=== PATIENT | male | born 1940 | race African-American/Black ===

== ENCOUNTER 2016-05-28 10:59 | Inpatient (IN) | payer OTHER ==
--- NOTE | 2016-05-28 11:19 | PDOC ---
[id number] No Limitations - History of Present Illness Initial Comments: 05/28/16 11:28 The patient is a 76 year old male accompanied by his with significant past medical history of hypertension, hypercholesterolemia, and diabetes who presents to the emergency department with worsening cough. The patient states he has been coughing for a long time, however over the last few weeks it has gotten worse and he has some difficulty breathing. He reports some associated chest pain worse with coughing, non radiating. He denies recent travel or sick contacts. He denies fevers and chills. The patient has not taken anything for his cough. Patient has a home visiting nurse/nurse practitioner from [facility], . <Rafia Briggs - Last Filed: 05/28/16 11:49> <Mercedez Wood - Last Filed: 06/01/16 07:38> - General Chief Complaint: Shortness of Breath Stated Complaint: SOB Time Seen by Provider: 05/28/16 11:08 Past History <Rafia Briggs - Last Filed: 05/28/16 11:49> - Past Medical History Anemia: No Asthma: No Cancer: No Cardiac Disorders: Yes CVA: Yes (rt side hemeparesis) COPD: No CHF: Yes Dementia: No Diabetes: Yes GI Disorders: No Disorders: No HTN: Yes Hypercholesterolemia: Yes Liver Disease: No Seizures: No Thyroid Disease: No - Surgical History Abdominal Surgery: No Appendectomy: No Cardiac Surgery: No Cholecystectomy: No Lung Surgery: No Neurologic Surgery: No Orthopedic Surgery: No - Psycho/Social/Smoking Cessation Hx Anxiety: No Suicidal Ideation: No Smoking Status: No Smoking History: Former smoker Have you smoked in the past 12 months: No Number of Cigarettes Smoked Daily: 0 If you are a former smoker, when did you quit?: 6 years ago Hx Alcohol Use: No Drug/Substance Use Hx: No Substance Use Type: None Hx Substance Use Treatment: No <Mercedez Wood - Last Filed: 06/01/16 07:38> - Past Medical History Allergies/Adverse Reactions: Allergies Allergy/AdvReac Type Severity Reaction Status Date / Time No Known Allergies Allergy Verified 05/28/16 11:37 Home Medications: Ambulatory Orders Amlodipine Besylate 10 mg PO DAILY 12/10/15 Aspirin [ASA -] 81 mg PO DAILY 12/10/15 Atorvastatin Ca [Lipitor] 10 mg PO DAILY 12/10/15 Escitalopram Oxalate [Lexapro -] 10 mg PO DAILY 12/10/15 Furosemide [Lasix -] 40 mg PO DAILY 12/10/15 Gabapentin 300 mg PO DAILY 12/10/15 Insulin Detemir [Levemir Flextouch] 30 unit SQ HS 12/10/15 Insulin Detemir [Levemir Flextouch] 45 unit SQ AM 12/10/15 Potassium Chloride [Klor-Con M20] 20 meq PO BID 12/10/15 Repaglinide 1 mg PO DAILY 12/10/15 Nebulizer/Compressor [Comp-Air Elite Comp Nebulizer] 1 each MC Q8H PRN #1 each 12/11/15 Albuterol 0.083% Nebulizer Bethanie [Ventolin 0.083% Nebulizer Soln -] 1 neb NEB Q8H PRN 01/12/16 Collagenase Clostridium Hist. [Santyl -] 1 applic TP DAILY #90 applic 01/12/16 Azithromycin 250 mg PO DAILY #4 tablet 05/31/16 Guaifenesin [Mucinex -] 600 mg PO BID tablet.er 05/31/16 Prednisone 10 mg PO DAILY #30 tablet 05/31/16 Review of Systems - Review of Systems Able to Perform ROS?: Yes Comments:: 05/28/16 11:28 GENERAL/CONSTITUTIONAL: No fever or chills. No weakness. HEAD, EYES, EARS, NOSE AND THROAT: No change in vision. No ear pain or discharge. No sore throat. CARDIOVASCULAR: +Shortness of breath, +chest pain. RESPIRATORY: +Cough, +wheezing. No hemoptysis. GASTROINTESTINAL: No nausea, vomiting, diarrhea or constipation. GENITOURINARY: No dysuria, frequency, or change in urination. MUSCULOSKELETAL: No joint or muscle swelling or pain. No neck or back pain. SKIN: No rash NEUROLOGIC: No headache, vertigo, loss of consciousness, or change in strength/ sensation. ENDOCRINE: No increased thirst. No abnormal weight change. HEMATOLOGIC/LYMPHATIC: No anemia, easy bleeding, or history of blood clots. ALLERGIC/IMMUNOLOGIC: No hives or skin allergy. <Rafia Briggs - Last Filed: 05/28/16 11:49> *Physical Exam - Physical Exam Comments: 05/28/16 11:49 GENERAL: Awake, alert, and fully oriented, in no acute distress HEAD: No signs of trauma EYES: PERRLA, EOMI, sclera anicteric, conjunctiva clear ENT: Auricles normal inspection, hearing grossly normal, nares patent, oropharynx clear without exudates. Moist mucosa NECK: Normal ROM, supple, no lymphadenopathy, JVD, or masses LUNGS: +Diffuse expiratory wheezing with intermittent cough and diffuse rhonchi. HEART: Regular rate and rhythm, normal S1 and S2, no murmurs, rubs or gallops ABDOMEN: Soft, nontender, normoactive bowel sounds. No guarding, no rebound. No masses EXTREMITIES: Normal range of motion, no edema. No clubbing or cyanosis. No cords, erythema, or tenderness NEUROLOGICAL: Cranial nerves II through XII grossly intact. Normal speech, normal gait SKIN: Warm, Dry, normal turgor, no rashes or lesions noted. <Rafia Briggs - Last Filed: 05/28/16 11:49> Heart Score/ECG Review - ECG Impressions Comment:: EKG read 13:35- NSR 87 bpm, occasional PAC, no acute ST/T changes <Mercedez Wood - Last Filed: 06/01/16 07:38> ED Treatment Course - LABORATORY CBC & Chemistry Diagram: 05/31/16 06:00 05/31/16 06:00 <Mercedez Wood - Last Filed: 06/01/16 07:38> Medical Decision Making - Medical Decision Making 05/28/16 16:32 Pt reassessed, the wheezing has not improved despite treatment. He reports some improvement in his symtoms. Will give solu-medrol and abx, admit for wheezing, poss bronchitis. <Mercedez Wood - Last Filed: 06/01/16 07:38> *DC/Admit/Observation/Transfer - Attestations Scribe Attestion: 05/28/16 11:21 Documentation prepared by Rafia Briggs, acting as medical fee clerk for Mercedez Wood MD. <Rafia Briggs - Last Filed: 05/28/16 11:49> - Discharge Dispostion Admit: Yes <Mercedez Wood - Last Filed: 06/01/16 07:38> Diagnosis at time of Disposition: Bronchitis - Discharge Dispostion Condition at time of disposition: Guarded - Prescriptions - Referrals
[2016-05-28 11:42] VITALS: BMI 32.6
[2016-05-28] MEDS: ALBUTEROL SO4 2.5/IPRATROPIUM 0.5 INH SOL 3 ML VIAL.NEB. NEB SCH ×5 (11:45→22:30)
[2016-05-28] MEDS ORDERED: ALBUTEROL SO4 2.5/IPRATROPIUM 0.5 INH SOL 3 ML VIAL.NEB. NEB ONE (11:46)
[2016-05-28 12:11] LABS: BASOPHIL 0.6 % (0-2.0); EOSINOPHIL 3.2 % (0-4.5); MCH 29.9 pg (25.7-33.7); MCHC 33.9 g/dl (32.0-35.9); MEAN CELL VOLUME 88.2 fl (80-96); MEAN PLT VOLUME 8.7 fl (7.5-11.1); NEUTROPHILS 41.9 % (42.8-82.8); PLATELET COUNT 236 K/MM3 (134-434); WHITE BLOOD COUNT 7.8 K/mm3 (4.0-10.0)
[2016-05-28 12:32] LABS: ALBUMIN 2.7 g/dl (3.4-5.0); ANION GAP 12 (8-16); BILIRUBIN,TOTAL 0.6 mg/dL (0.2-1.0); CALCIUM 8.3 mg/dL (8.5-10.1); CO2 26 mmol/L (21-32); CREATININE 0.9 mg/dL (0.7-1.3); GLUCOSE,RANDOM 240 mg/dL (74-106); SGPT/ALT 31 U/L (12-78); TOT PROT 7.3 g/dl (6.4-8.2)
[2016-05-28 12:35] LABS: ALK PHOS 61 U/L (45-117)
[2016-05-28 12:41] LABS: SGOT/AST 29 U/L (15-37)
[2016-05-28] MEDS ORDERED: methylPREDNISolone NA SUCC 125 MG/2 ML VIAL IVPB ONE (16:21)
[2016-05-28] MEDS ORDERED: AZITHROMYCIN IVPB 500 MG in DEXTROSE 5%-WATER - 250 ML IVPB ONE (16:21)
[2016-05-28] MEDS ORDERED: AZITHROMYCIN IVPB 250 ML IVPB ONE (17:24)
[2016-05-28] MEDS ORDERED: methylPREDNISolone NA SUCC 125 MG/2 ML VIAL ONE ×2 (17:24)
--- NOTE | 2016-05-28 17:45 | HP ---
CHIEF COMPLAINT: Cough PCP: [facility], HISTORY OF PRESENT ILLNESS: This is a 76 year old male from [place] with a history of CVA with residual right-sided weakness, IDDM, HTN, and HLD who presented to the ED today complaining of cough and shortness of breath. He reports that he has had both of these symptoms for about five years, but they became acutely worse over the past week. He denies chest pain, lower extremity swelling above baseline (his right leg has been swollen for "a while"), PND, and orthopnea. He denies fevers/chills and weight loss but has had some nightsweats. He thinks that he received the bcg vaccine and does not recall ever being tested for TB. 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 Smoking: Smoked for about two years and quit six years ago Alcohol: None Drugs: None Allergies No Known Allergies Allergy (Verified 05/28/16 11:37) HOME MEDICATIONS: Home Medications Medication Instructions Recorded Amlodipine Besylate 10 mg PO DAILY 12/10/15 Aspirin [ASA -] 81 mg PO DAILY 12/10/15 Atorvastatin Ca [Lipitor] 10 mg PO DAILY 12/10/15 Escitalopram Oxalate [Lexapro -] 10 mg PO DAILY 12/10/15 Furosemide [Lasix -] 40 mg PO DAILY 12/10/15 Gabapentin 300 mg PO DAILY 12/10/15 Insulin Detemir [Levemir Flextouch] 30 unit SQ HS 12/10/15 Insulin Detemir [Levemir Flextouch] 45 unit SQ AM 12/10/15 Potassium Chloride [Klor-Con M20] 20 meq PO BID 12/10/15 Repaglinide 1 mg PO DAILY 12/10/15 Nebulizer/Compressor [Comp-Air 1 each MC Q8H PRN #1 each 12/11/15 Elite Comp Nebulizer] Albuterol 0.083% Nebulizer Bethanie 1 neb NEB Q8H PRN 01/12/16 [Ventolin 0.083% Nebulizer Soln -] Collagenase Clostridium Hist. 1 applic TP DAILY #90 applic 01/12/16 [Santyl] Collagenase Clostridium Hist. 1 applic TP DAILY #90 applic 01/23/16 [Santyl] REVIEW OF SYSTEMS CONSTITUTIONAL: Nightsweats Absent: fever, chills, diaphoresis, generalized weakness, malaise, loss of appetite, weight change HEENT: Absent: rhinorrhea, nasal congestion, throat pain, throat swelling, difficulty swallowing, mouth swelling, ear pain, eye pain, visual changes CARDIOVASCULAR: Absent: chest pain, syncope, palpitations, irregular heart rate, lightheadedness , peripheral edema RESPIRATORY: See HPI GASTROINTESTINAL: Absent: abdominal pain, abdominal distension, nausea, vomiting, diarrhea, constipation, melena, hematochezia GENITOURINARY: Absent: dysuria, frequency, urgency, hesitancy, hematuria, flank pain, genital pain MUSCULOSKELETAL: Absent: myalgia, arthralgia, joint swelling, back pain, neck pain SKIN: Absent: rash, itching, pallor HEMATOLOGIC/IMMUNOLOGIC: Absent: easy bleeding, easy bruising, lymphadenopathy, frequent infections ENDOCRINE: Absent: unexplained weight gain, unexplained weight loss, heat intolerance, cold intolerance NEUROLOGIC: Absent: headache, focal weakness or paresthesias, dizziness, unsteady gait, seizure, mental status changes, bladder or bowel incontinence PSYCHIATRIC: Absent: anxiety, depression, suicidal or homicidal ideation, hallucinations. PHYSICAL EXAMINATION GENERAL: Awake, alert, and fully oriented, in no acute distress. HEAD: Normal with no signs of trauma. EYES: Pupils equal, round and reactive to light, extraocular movements intact, sclera anicteric, conjunctiva clear. No lid lag. EARS, NOSE, THROAT: Ears normal, nares patent, oropharynx clear without exudates. Moist mucous membranes. NECK: Normal range of motion, supple without lymphadenopathy, JVD, or masses. LUNGS: Inspiratory and expiratory wheezes in all lung restrepo with poor air movement. Able to speak full sentences but does appear dyspneic. No accessory muscle use. HEART: Regular rate and rhythm, normal S1 and S2 without murmur, rub or gallop. ABDOMEN: Soft, nontender, not distended, normoactive bowel sounds, no guarding, no rebound, no masses. No hepatomegaly or splenomegaly. MUSCULOSKELETAL: Normal range of motion at all joints. No bony deformities or tenderness. No CVA tenderness. UPPER EXTREMITIES: 2+ pulses, warm, well-perfused. No cyanosis. No clubbing. Cap refill <2 seconds. No peripheral edema. LOWER EXTREMITIES: 2+ pulses, warm, well-perfused. 2+ RLE edema, calf tenderness . NEUROLOGICAL: Cranial nerves II-XII intact. Normal speech. Normal gait. PSYCHIATRIC: Cooperative. Good eye contact. Appropriate mood and affect. SKIN: Warm, dry, normal turgor, no rashes or lesions noted. ASSESSMENT/PLAN: 76 year old male with cough and wheezing of unclear etiology. Problem List - Problem (1) Cough Assessment/Plan: -With significant wheezing and shortness of breath -Unclear etiology, [id number] symptoms -Differential includes COPD, bronchitis, less likely TB or PE -Continue azithromycin -Continue Solu-Medrol at 40mg q8h, taper as tolerated -DuoNebs q6h standing -RLE doppler to r/o DVT -Pulmonary evaluation Code(s): R05 - COUGH (2) Hypertension Assessment/Plan: -At goal -Continue home Norvasc Code(s): I10 - ESSENTIAL (PRIMARY) HYPERTENSION (3) Hyperlipidemia Assessment/Plan: -Continue home Atorvastatin Code(s): E78.5 - HYPERLIPIDEMIA, UNSPECIFIED (4) Diabetes Assessment/Plan: -Continue home regimen of Levemir/repaglinide -FSACHS -ISS -Diabetic diet Code(s): E11.9 - TYPE 2 DIABETES MELLITUS WITHOUT COMPLICATIONS (5) DVT prophylaxis Assessment/Plan: -Moderate risk -Lovenox 40mg sq daily -Early ambulation Code(s): [id number] - Visit type - Emergency Visit Emergency Visit: Yes ED Registration Date: 05/28/16 Care time: The patient presented to the Emergency Department on the above date and was hospitalized for further evaluation of their emergent condition. - New Patient This patient is new to me today: Yes Date on this admission: 05/28/16 - Critical Care Critical Care patient: No
[2016-05-28] MEDS ORDERED: ACETAMINOPHEN 325 MG TABLET (FP) PO PRN (18:00)
[2016-05-28] MEDS ORDERED: ONDANSETRON 4 MG/2 ML VIAL IVPB PRN (18:00)
[2016-05-28] MEDS: methylPREDNISolone NA SUCC 40 MG/1 ML VIAL IVPB SCH (19:41)
[2016-05-28] MEDS: ATORVASTATIN CA 10 MG TABLET (FP) PO SCH (21:59)
[2016-05-28] MEDS ORDERED: INSULIN DETEMIR 100 UNITS/ML MDV SQ SCH (22:00)
[2016-05-28] MEDS: POTASSIUM CHLORIDE TABS 20 MEQ TABLET.ER (FP) PO SCH (22:00)
[2016-05-28] MEDS: INSULIN SLIDING SCALE (NOVOLOG) 1 VIAL SQ SCH (22:05)
[2016-05-29] MEDS: methylPREDNISolone NA SUCC 40 MG/1 ML VIAL IVPB SCH ×3 (02:17→17:36)
[2016-05-29] MEDS ORDERED: PT OWN MED DRAWER 7, Y5N ONE ×2 (06:17→09:56)
[2016-05-29] MEDS: ALBUTEROL SO4 2.5/IPRATROPIUM 0.5 INH SOL 3 ML VIAL.NEB. NEB SCH ×3 (06:25→17:30)
[2016-05-29] MEDS: INSULIN DETEMIR 100 UNITS/ML MDV SQ SCH (07:07)
[2016-05-29] MEDS: REPAGLINIDE 1 MG TABLET PO SCH (07:09)
[2016-05-29] MEDS: INSULIN SLIDING SCALE (NOVOLOG) 1 VIAL SQ SCH ×4 (07:10→21:36)
[2016-05-29 08:28] LABS: BASOPHIL 0.1 % (0-2.0); MCH 30.4 pg (25.7-33.7); MCHC 34.6 g/dl (32.0-35.9); MEAN PLT VOLUME 8.7 fl (7.5-11.1); NEUTROPHILS 79.3 % (42.8-82.8); PLATELET COUNT 262 K/MM3 (134-434); RDW 14.9 % (11.9-15.9); WHITE BLOOD COUNT 10.9 K/mm3 (4.0-10.0)
[2016-05-29 09:07] LABS: ANION GAP 12 (8-16); CALCIUM 8.9 mg/dL (8.5-10.1); CO2 27 mmol/L (21-32); GLUCOSE,RANDOM 237 mg/dL (74-106)
[2016-05-29 09:10] LABS: ALK PHOS 68 U/L (45-117); BILIRUBIN,TOTAL 0.5 mg/dL (0.2-1.0); CREATININE 0.9 mg/dL (0.7-1.3); SGOT/AST 22 U/L (15-37); SGPT/ALT 41 U/L (12-78); TOT PROT 7.7 g/dl (6.4-8.2)
[2016-05-29] MEDS ORDERED: COLLAGENASE CLOSTRIDIUM HIST. 30 GRAMS TUBE TP SCH (10:00)
[2016-05-29] MEDS: ENOXAPARIN NA (PORCINE) 40 MG/0.4 ML DISP.SYRIN SQ SCH (10:08)
[2016-05-29] MEDS: GABAPENTIN 300 MG CAPSULE (FP) PO SCH (10:09)
[2016-05-29] MEDS: FUROSEMIDE 40 MG TABLET (FP) PO SCH (10:09)
[2016-05-29] MEDS: POTASSIUM CHLORIDE TABS 20 MEQ TABLET.ER (FP) PO SCH ×2 (10:09→21:37)
[2016-05-29] MEDS: ESCITALOPRAM OXALATE 10 MG TABLET (FP) PO SCH (10:09)
[2016-05-29] MEDS: ASPIRIN 81 MG CHEWABLE TABLETS PO SCH (10:09)
[2016-05-29] MEDS: amLODIPine BESYLATE 10 MG TABLET (FP) PO SCH (10:09)
--- NOTE | 2016-05-29 10:19 | CON.PULM ---
Consult Consult Specialty:: PULM/CCM Referred by:: PMD Reason for Consultation:: SOB / possible PNA - History of Present Illness Chief Complaint: SOB / cough History of Present Illness: 76 M, originally from [place], [place] the [place]. Previous smoking history having stopped about 6 years ago. History of CVA with residual right-sided weakness, IDDM, HTN, and HPL. Reports with URI symptoms. He developed symptoms of cough and shortness of breath. He reports some chronic cough with scant sputum production. No hemoptysis or clear night sweats. No fever or chills. No clear P TB exposure or history. 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 - Alcohol/Substance Use Hx Alcohol Use: No - Smoking History Smoking history: Former smoker Have you smoked in the past 12 months: No Aproximately how many cigarettes per day: 0 If you are a former smoker, when did you quit?: 6 years ago Home Medications - Allergies Allergies/Adverse Reactions: Allergies Allergy/AdvReac Type Severity Reaction Status Date / Time No Known Allergies Allergy Verified 05/28/16 11:37 - Home Medications Home Medications: Ambulatory Orders Amlodipine Besylate 10 mg PO DAILY 12/10/15 Aspirin [ASA -] 81 mg PO DAILY 12/10/15 Atorvastatin Ca [Lipitor] 10 mg PO DAILY 12/10/15 Escitalopram Oxalate [Lexapro -] 10 mg PO DAILY 12/10/15 Furosemide [Lasix -] 40 mg PO DAILY 12/10/15 Gabapentin 300 mg PO DAILY 12/10/15 Insulin Detemir [Levemir Flextouch] 30 unit SQ HS 12/10/15 Insulin Detemir [Levemir Flextouch] 45 unit SQ AM 12/10/15 Potassium Chloride [Klor-Con M20] 20 meq PO BID 12/10/15 Repaglinide 1 mg PO DAILY 12/10/15 Nebulizer/Compressor [Comp-Air Elite Comp Nebulizer] 1 each MC Q8H PRN #1 each 12/11/15 Albuterol 0.083% Nebulizer Bethanie [Ventolin 0.083% Nebulizer Soln -] 1 neb NEB Q8H PRN 01/12/16 Collagenase Clostridium Hist. [Santyl] 1 applic TP DAILY #90 applic 01/12/16 Review of Systems - Review of Systems Constitutional: reports: Malaise. denies: Chills, Fever, Night Sweats, Unintentional Wgt. Loss Eyes: reports: No Symptoms HENT: reports: Nasal Congestion. denies: Difficult Swallowing, Ear Discharge, Ear Pain, Epistaxis, Throat Pain Neck: reports: No Symptoms Cardiovascular: reports: Shortness of Breath. denies: Chest Pain, Edema, Palpitations Respiratory: reports: Cough, Snoring, SOB, SOB on Exertion. denies: Hemoptysis , Wheezing Gastrointestinal: reports: No Symptoms Genitourinary: reports: No Symptoms Breasts: reports: No Symptoms Reported Musculoskeletal: reports: Muscle Cramps Integumentary: reports: No Symptoms Neurological: reports: Pre-Existing Deficit Endocrine: reports: No Symptoms Hematology/Lymphatic: reports: No Symptoms Psychiatric: reports: No Symptoms Physical Exam Vital Sings: Vital Signs Temperature 97.4 F L 05/29/16 06:00 Pulse Rate 90 05/29/16 06:00 Respiratory Rate 18 05/29/16 06:00 Blood Pressure 151/82 05/29/16 06:00 O2 Sat by Pulse Oximetry (%) 96 05/29/16 01:28 Constitutional: Yes: No Distress, Calm Eyes: Yes: Conjunctiva Clear, EOM Intact HENT: Yes: Atraumatic, Normocephalic Neck: Yes: Supple, Trachea Midline Cardiovascular: Yes: Regular Rate and Rhythm Respiratory: Yes: Cough, Diminished, Rhonchi. No: Accessory Muscle Use, Rales, Stridor, Tachypnea, Wheezes ...Inspection: Yes: WNL ...Clubbing: No Gastrointestinal: Yes: Normal Bowel Sounds, Soft, Abdomen, Obese Extremities: Yes: WNL Edema: Yes Edema: LLE: Trace, RLE: Trace Peripheral Pulses WNL: Yes Integumentary: Yes: WNL Neurological: Yes: Alert, Oriented, Pre-Existing Deficit Psychiatric: Yes: Alert, Oriented Labs: CBC, BMP 05/29/16 06:00 05/29/16 06:00 Imaging - Results Chest X-ray: Report Reviewed, Image Reviewed (Significantly elevated Right hemidiaphragm up to the right hilum / RLL atelectatic/infiltrative changes) Problem List - Problems (1) Bronchitis Code(s): J40 - BRONCHITIS, NOT SPECIFIED ACUTE OR CHRONIC (2) Cough Code(s): R05 - COUGH (3) Diabetes Code(s): E11.9 - TYPE 2 DIABETES MELLITUS WITHOUT COMPLICATIONS (4) Hyperlipidemia Code(s): E78.5 - HYPERLIPIDEMIA, UNSPECIFIED (5) Hypertension Code(s): I10 - ESSENTIAL (PRIMARY) HYPERTENSION (6) Pneumonia Code(s): J18.9 - PNEUMONIA, UNSPECIFIED ORGANISM Qualifiers: Pneumonia type: due to unspecified organism Laterality: right Lung location: lower lobe of lung Qualified Code(s): J18.9 - Pneumonia, unspecified organism Assessment/Plan PLAN: Agree with ABX for possible RLL CAP / Bronchitis / URI Suspect component of COPD/chronic bronchitis due to previous smoking (suspect smoking history is more significant) Suspect component of restrictive lung disease from elevated right diaphragm -> possibly due to old CVA Suspicion for OSAS. Medrol BD TX Check sputum Check urine antigen Should have OSAS workup as an outpatient O2 as needed VTE prophylaxis Will follow Thank you. Dr Patel
[2016-05-29] MEDS: AZITHROMYCIN IVPB 250 MG in DEXTROSE 5%-WATER - 250 ML IVPB SCH (10:47)
--- NOTE | 2016-05-29 12:16 | PN ---
Physical Exam: SUBJECTIVE: Patient seen and examined. He denies any chest pain, shortness of breath or discomfort. OBJECTIVE: GENERAL: Awake, alert, and fully oriented, in no acute distress. HEAD: Normal with no signs of trauma. EYES: Pupils equal, round and reactive to light, extraocular movements intact, sclera anicteric, conjunctiva clear. No lid lag. ENT: Ears normal, nares patent, oropharynx clear without exudates. Moist mucous membranes. NECK: Normal range of motion, supple without lymphadenopathy, JVD, or masses. LUNGS: Anterior lungs with rhonchi. Left lung diminished/clear. Right lower lobe with rhonchi. HEART: Regular rate and rhythm ABDOMEN: Soft, nontender, distended, + bowel sounds, constipated LOWER EXT: Right lower extremity +1 edema, no calf tenderness, negative for DVT NEUROLOGICAL: Normal speech. Right sided weakness s/p CVA PSYCHIATRIC: Cooperative. Good eye contact. SKIN: Excoriated buttocks Vital Signs Period Temp Pulse Resp BP Sys/Pham Pulse Ox Last 24 Hr 97.4 F-99.1 F 78-94 18-22 124-151/57-82 96-96 Laboratory Results - last 24 hr 05/28/16 05/29/16 05/29/16 21:14 05:43 06:00 WBC 10.9 H D RBC 4.83 Hgb 14.7 Hct 42.5 MCV 88.0 MCHC 34.6 RDW 14.9 Plt Count 262 MPV 8.7 Neutrophils % 79.3 D Lymphocytes % 19.2 D Monocytes % 1.4 L D Eosinophils % 0.0 D Basophils % 0.1 Sodium Potassium Chloride Carbon Dioxide Anion Gap BUN Creatinine Creat Clearance w eGFR POC Glucometer 290 252 Random Glucose Hemoglobin A1c % Calcium Magnesium Total Bilirubin AST ALT Alkaline Phosphatase Total Protein Albumin 05/29/16 05/29/16 05/29/16 06:00 06:00 11:25 WBC RBC Hgb Hct MCV MCHC RDW Plt Count MPV Neutrophils % Lymphocytes % Monocytes % Eosinophils % Basophils % Sodium 138 Potassium 4.0 Chloride 99 Carbon Dioxide 27 Anion Gap 12 BUN 11 D Creatinine 0.9 Creat Clearance w eGFR > 60 POC Glucometer 342 Random Glucose 237 H Hemoglobin A1c % 8.4 H D Calcium 8.9 Magnesium 2.0 Total Bilirubin 0.5 AST 22 D ALT 41 D Alkaline Phosphatase 68 Total Protein 7.7 Albumin 3.0 L Active Medications Generic Name Dose Route Start Last Admin Trade Name Humbertoq PRN Reason Stop Dose Admin Acetaminophen 650 mg 05/28/16 18:00 Tylenol - PO Q6H PRN FEVER OR PAIN Albuterol/Ipratropium 1 amp 05/28/16 17:30 05/29/16 11:15 Duoneb - NEB 1 amp Q6H FLORIN Administration Amlodipine Besylate 10 mg 05/29/16 10:00 05/29/16 10:09 Norvasc - PO 10 mg DAILY FLORIN Administration Aspirin 81 mg 05/29/16 10:00 05/29/16 10:09 Asa - PO 81 mg DAILY FLORIN Administration Atorvastatin Calcium 10 mg 05/28/16 22:00 05/28/16 21:59 Lipitor - PO 10 mg HS FLORIN Administration Enoxaparin Sodium 40 mg 05/29/16 10:00 05/29/16 10:08 Lovenox - SQ 40 mg DAILY FLORIN Administration Escitalopram Oxalate 10 mg 05/29/16 10:00 05/29/16 10:09 Lexapro - PO 10 mg DAILY FLORIN Administration Furosemide 40 mg 05/29/16 10:00 05/29/16 10:09 Lasix - PO 40 mg DAILY FLORIN Administration Gabapentin 300 mg 05/29/16 10:00 05/29/16 10:09 Neurontin - PO 300 mg DAILY FLORIN Administration Azithromycin 250 mg/ Dextrose 250 mls @ 250 mls/hr 05/29/16 10:00 05/29/16 10: 47 IVPB 250 mls/hr DAILY FLORIN Administration Insulin Aspart 1 vial 05/28/16 22:00 05/29/16 11:34 Novolog Vial Sliding Scale - SQ 8 units ACHS FLORIN Administration Protocol Insulin Detemir 30 units 05/28/16 22:00 05/28/16 21:58 Levemir Vial SQ 30 units HS FLORIN Administration Insulin Detemir 45 units 05/29/16 07:00 05/29/16 07:07 Levemir Vial SQ 45 units AM FLORIN Administration Methylprednisolone Sodium Succinate 40 mg 05/28/16 18:00 05/29/16 10:08 Solu-Medrol - IVPB 40 mg Q8H-IV FLORIN Administration Ondansetron HCl 4 mg 05/28/16 18:00 Zofran Injection IVPB Q6H PRN NAUSEA Potassium Chloride 20 meq 05/28/16 22:00 05/29/16 10:09 K-Dur - PO 20 meq BID FLORIN Administration Repaglinide 1 mg 05/29/16 07:00 05/29/16 07:09 Prandin - PO 1 mg ACBK FLORIN Administration ASSESSMENT/PLAN: Patient is a 76 year old male with a significant past medical history of CVA with residual right sided weakness, CHF, hypertension, high cholesterol and diabetes who presents to the emergency department on 05/28/16 with worsening cough. The patient states he has been coughing a while but coughing worsened over the last few weeks with difficulty breathing. He reports some associated chest pain worse with coughing, non radiating. On exam he denies chest pain and shortness of breath, but oxygen sats are noted to be 92% on room air. Pulmonary: Cough associated with shortness of breath- acute Assessment/Plan: Differentials include COPD exacerbation vs. acute Bronchitis vs Right lower lobe Pneumonia 05/28/2016 chest xray shows mild atelectatic changes in right lung base Has a moist non productive cough, oxygen saturations on room air: 92%, will order pre and post On Azithromycin 250mg daily and Solu Medrol 40mg q8 Albuterol q6 scheduled Oxygen as needed for respiratory distress Pulmonary following Cardiology: Hypertension - chronic Assessment/Plan: Controlled on Norvasc 10mg daily Monitor BPs CHF - chronic Assessment/Plan: On Lasix 40mg daily Hyperlipidemia - chronic Assessment/Plan: On Atorvastin 10mg daily Neurology: CVA with right sided weakness - chronic Assessment/Plan: On ASA 81mg daily PT Eval ordered Endocrine: Diabetes - chronic Assessment/Plan: BGMs elevated Sliding scale adjusted for tighter control, Levemir night dose increased Monitor BGMs for improvement F.E.N. Fluids: Tolerating PO Electrolytes: BMP in a.m. Nutrition: Diabetic diet Prophylaxis DVT: Lovenox 40mg daily GI: Protonix PT consult Visit type - Emergency Visit Emergency Visit: Yes ED Registration Date: 05/31/16 Care time: The patient presented to the Emergency Department on the above date and was hospitalized for further evaluation of their emergent condition. - New Patient This patient is new to me today: Yes Date on this admission: 06/05/16 - Critical Care Critical Care patient: No - Discharge Referral Referred to [facility] No
[2016-05-29] MEDS: DOCUSATE SODIUM 100 MG CAPSULE (FP) PO SCH ×2 (14:29→21:37)
[2016-05-29] MEDS: POLYETHYLENE GLYCOL 3350 119 GM BTL PO SCH (15:08)
[2016-05-29] MEDS ORDERED: INSULIN DETEMIR 100 UNITS/ML MDV SQ SCH (15:41)
[2016-05-29] MEDS: ATORVASTATIN CA 10 MG TABLET (FP) PO SCH (21:37)
[2016-05-30] MEDS: methylPREDNISolone NA SUCC 40 MG/1 ML VIAL IVPB SCH ×3 (01:34→21:37)
[2016-05-30] MEDS ORDERED: INSULIN (NOVOLOG) ASPART 100 UNITS/ML 10ML VIAL ONE ×4 (05:44→16:37)
[2016-05-30] MEDS ORDERED: PT OWN MED DRAWER 7, Y5N ONE (05:45)
[2016-05-30] MEDS: DOCUSATE SODIUM 100 MG CAPSULE (FP) PO SCH ×3 (06:12→21:34)
[2016-05-30] MEDS: REPAGLINIDE 1 MG TABLET PO SCH (06:13)
[2016-05-30] MEDS: INSULIN SLIDING SCALE (NOVOLOG) 1 VIAL SQ SCH ×4 (06:33→21:36)
[2016-05-30] MEDS: INSULIN DETEMIR 100 UNITS/ML MDV SQ SCH ×2 (06:40→21:35)
[2016-05-30] MEDS: ALBUTEROL SO4 2.5/IPRATROPIUM 0.5 INH SOL 3 ML VIAL.NEB. NEB SCH ×5 (06:41→22:51)
[2016-05-30 07:17] LABS: BASOPHIL 0.3 % (0-2.0); MCH 30.4 pg (25.7-33.7); MCHC 34.6 g/dl (32.0-35.9); MEAN CELL VOLUME 87.7 fl (80-96); MEAN PLT VOLUME 8.7 fl (7.5-11.1); NEUTROPHILS 81.2 % (42.8-82.8); PLATELET COUNT 290 K/MM3 (134-434); RDW 15.2 % (11.9-15.9); WHITE BLOOD COUNT 13.4 K/mm3 (4.0-10.0)
[2016-05-30 07:38] LABS: ANION GAP 11 (8-16); CALCIUM 9.1 mg/dL (8.5-10.1); CO2 29 mmol/L (21-32); CREATININE 0.9 mg/dL (0.7-1.3); GLUCOSE,RANDOM 225 mg/dL (74-106); SGOT/AST 25 U/L (15-37); SGPT/ALT 42 U/L (12-78)
[2016-05-30 07:41] LABS: ALK PHOS 63 U/L (45-117); BILIRUBIN,TOTAL 0.5 mg/dL (0.2-1.0)
[2016-05-30] MEDS: GABAPENTIN 300 MG CAPSULE (FP) PO SCH (09:28)
[2016-05-30] MEDS: ENOXAPARIN NA (PORCINE) 40 MG/0.4 ML DISP.SYRIN SQ SCH (09:28)
[2016-05-30] MEDS: ASPIRIN 81 MG CHEWABLE TABLETS PO SCH (09:28)
[2016-05-30] MEDS: amLODIPine BESYLATE 10 MG TABLET (FP) PO SCH (09:28)
[2016-05-30] MEDS: POTASSIUM CHLORIDE TABS 20 MEQ TABLET.ER (FP) PO SCH ×2 (09:28→21:35)
[2016-05-30] MEDS: FUROSEMIDE 40 MG TABLET (FP) PO SCH (09:29)
[2016-05-30] MEDS: ESCITALOPRAM OXALATE 10 MG TABLET (FP) PO SCH (09:29)
[2016-05-30] MEDS: POLYETHYLENE GLYCOL 3350 119 GM BTL PO SCH (09:29)
[2016-05-30] MEDS: AZITHROMYCIN IVPB 250 MG in DEXTROSE 5%-WATER - 250 ML IVPB SCH (10:11)
--- NOTE | 2016-05-30 10:59 | PN ---
Progress Note (short form) - Note Progress Note: Subjectively feels better today. NAD on RA. Finding it difficult to expectorate. Intake & Output 05/27/16 05/28/16 05/29/16 05/30/16 23:59 23:59 23:59 23:59 Intake Total 500 1460 300 Output Total 450 800 Balance 50 660 300 Weight 221 lb 235 lb 1.6 oz 235 lb 14.4 oz Last Vital Signs Temp Pulse Resp BP Pulse Ox 98.8 F 91 H 20 135/82 92 L 05/30/16 09:46 05/30/16 09:46 05/30/16 09:46 05/30/16 09:46 05/30/16 09:00 Active Medications Acetaminophen (Tylenol -) 650 mg PO Q6H PRN PRN Reason: FEVER OR PAIN Albuterol/Ipratropium (Duoneb -) 1 amp NEB Q6H [facility] Last Admin: 05/30/16 06:41 Dose: 1 amp Amlodipine Besylate (Norvasc -) 10 mg PO DAILY [facility] Last Admin: 05/30/16 09:28 Dose: 10 mg Aspirin (Asa -) 81 mg PO DAILY [facility] Last Admin: 05/30/16 09:28 Dose: 81 mg Atorvastatin Calcium (Lipitor -) 10 mg PO HS [facility] Last Admin: 05/29/16 21:37 Dose: 10 mg Docusate Sodium (Colace -) 100 mg PO TID [facility] Last Admin: 05/30/16 06:12 Dose: 100 mg Enoxaparin Sodium (Lovenox -) 40 mg SQ DAILY [facility] Last Admin: 05/30/16 09:28 Dose: 40 mg Escitalopram Oxalate (Lexapro -) 10 mg PO DAILY [facility] Last Admin: 05/30/16 09:29 Dose: 10 mg Furosemide (Lasix -) 40 mg PO DAILY [facility] Last Admin: 05/30/16 09:29 Dose: 40 mg Gabapentin (Neurontin -) 300 mg PO DAILY [facility] Last Admin: 05/30/16 09:28 Dose: 300 mg Azithromycin 250 mg/ Dextrose 250 mls @ 250 mls/hr IVPB DAILY [facility] Last Admin: 05/30/16 10:11 Dose: 250 mls/hr Insulin Aspart (Novolog Vial Sliding Scale -) 1 vial SQ ACHS [facility] PRN Reason: Protocol Last Admin: 05/30/16 06:33 Dose: 6 units Insulin Detemir (Levemir Vial) 45 units SQ AM [facility] Last Admin: 05/30/16 06:40 Dose: 45 units Insulin Detemir (Levemir Vial) 35 units SQ HS [facility] Last Admin: 05/29/16 21:37 Dose: 35 units Methylprednisolone Sodium Succinate (Solu-Medrol -) 40 mg IVPB Q8H-IV [facility] Last Admin: 05/30/16 09:29 Dose: 40 mg Ondansetron HCl (Zofran Injection) 4 mg IVPB Q6H PRN PRN Reason: NAUSEA Polyethylene Glycol (Miralax (For Daily Use) -) 17 gm PO DAILY [facility] Last Admin: 05/30/16 09:29 Dose: 17 grams Potassium Chloride (K-Dur -) 20 meq PO BID [facility] Last Admin: 05/30/16 09:28 Dose: 20 meq Repaglinide (Prandin -) 1 mg PO ACBK [facility] Last Admin: 05/30/16 06:13 Dose: 1 mg Constitutional: Yes: No Distress, Calm Eyes: Yes: Conjunctiva Clear, EOM Intact HENT: Yes: Atraumatic, Normocephalic Neck: Yes: Supple, Trachea Midline Cardiovascular: Yes: Regular Rate and Rhythm Respiratory: Yes: Cough, Diminished, Rhonchi. No: Accessory Muscle Use, Rales, Stridor, Tachypnea, Wheezes ...Inspection: Yes: WNL ...Clubbing: No Gastrointestinal: Yes: Normal Bowel Sounds, Soft, Abdomen, Obese Extremities: Yes: WNL Edema: Yes Edema: LLE: Trace, RLE: Trace Peripheral Pulses WNL: Yes Integumentary: Yes: WNL Neurological: Yes: Alert, Oriented, Pre-Existing Deficit Psychiatric: Yes: Alert, Oriented Labs: Laboratory Results - last 24 hr 05/29/16 05/29/16 05/29/16 11:25 16:00 21:35 WBC RBC Hgb Hct MCV MCHC RDW Plt Count MPV Neutrophils % Lymphocytes % Monocytes % Eosinophils % Basophils % Sodium Potassium Chloride Carbon Dioxide Anion Gap BUN Creatinine Creat Clearance w eGFR POC Glucometer 342 304 315 Random Glucose Calcium Total Bilirubin AST ALT Alkaline Phosphatase Total Protein Albumin 05/30/16 05/30/16 05/30/16 06:00 06:00 06:11 WBC 13.4 H RBC 4.80 Hgb 14.6 Hct 42.1 MCV 87.7 MCHC 34.6 RDW 15.2 Plt Count 290 MPV 8.7 Neutrophils % 81.2 Lymphocytes % 15.2 D Monocytes % 3.3 L D Eosinophils % 0.0 Basophils % 0.3 Sodium 140 Potassium 4.0 Chloride 100 Carbon Dioxide 29 Anion Gap 11 BUN 14 D Creatinine 0.9 Creat Clearance w eGFR > 60 POC Glucometer 218 Random Glucose 225 H Calcium 9.1 Total Bilirubin 0.5 AST 25 ALT 42 Alkaline Phosphatase 63 Total Protein 8.0 Albumin 3.0 L Problem List - Problems (1) Bronchitis Code(s): J40 - BRONCHITIS, NOT SPECIFIED ACUTE OR CHRONIC (2) Cough Code(s): R05 - COUGH (3) Diabetes Code(s): E11.9 - TYPE 2 DIABETES MELLITUS WITHOUT COMPLICATIONS (4) Hyperlipidemia Code(s): E78.5 - HYPERLIPIDEMIA, UNSPECIFIED (5) Hypertension Code(s): I10 - ESSENTIAL (PRIMARY) HYPERTENSION (6) Pneumonia Code(s): J18.9 - PNEUMONIA, UNSPECIFIED ORGANISM Qualifiers: Pneumonia type: due to unspecified organism Laterality: right Lung location: lower lobe of lung Qualified Code(s): J18.9 - Pneumonia, unspecified organism Assessment/Plan PLAN: Agree with ABX for possible RLL CAP / Bronchitis / URI Suspect component of COPD/chronic bronchitis due to previous smoking (suspect smoking history is more significant) Suspect component of restrictive lung disease from elevated right diaphragm -> possibly due to old CVA Suspicion for [facility]. Taper Medrol Add Mucinex BD TX Check sputum Should have OSAS workup as an outpatient O2 as needed VTE prophylaxis Dr Patel Problem List - Problems (1) Bronchitis Code(s): J40 - BRONCHITIS, NOT SPECIFIED ACUTE OR CHRONIC (2) Cough Code(s): R05 - COUGH (3) Diabetes Code(s): E11.9 - TYPE 2 DIABETES MELLITUS WITHOUT COMPLICATIONS (4) Hyperlipidemia Code(s): E78.5 - HYPERLIPIDEMIA, UNSPECIFIED (5) Hypertension Code(s): I10 - ESSENTIAL (PRIMARY) HYPERTENSION (6) Pneumonia Code(s): J18.9 - PNEUMONIA, UNSPECIFIED ORGANISM Qualifiers: Pneumonia type: due to unspecified organism Laterality: right Lung location: lower lobe of lung Qualified Code(s): J18.9 - Pneumonia, unspecified organism
[2016-05-30] MEDS ORDERED: BISACODYL 5 MG TABLET.DR (FP) PO ONE (11:30)
--- NOTE | 2016-05-30 11:30 | PN ---
Physical Exam: SUBJECTIVE: Patient seen and examined. He is states he feels better today. He is still having a moist non productive cough. Pt also states he is constipated x 5 days and has not responded to the Colace or Miralax. He denies chest pain, shortness of breath. Tolerating room air. OBJECTIVE: GENERAL: Awake, alert, and fully oriented, in no acute distress. HEAD: Normal with no signs of trauma. EYES: Pupils equal, round and reactive to light, extraocular movements intact, sclera anicteric, conjunctiva clear. No lid lag. ENT: Ears normal, nares patent, oropharynx clear without exudates. Moist mucous membranes. NECK: Normal range of motion, supple without lymphadenopathy, JVD, or masses. LUNGS: Anterior lungs with rhonchi. Left lung diminished/clear. Right lower lobe with rhonchi. HEART: Regular rate and rhythm ABDOMEN: Soft, nontender, distended, + bowel sounds, constipated LOWER EXT: Right lower extremity +1 edema, no calf tenderness, negative for DVT NEUROLOGICAL: Normal speech. Right sided weakness s/p CVA PSYCHIATRIC: Cooperative. Good eye contact. SKIN: Excoriated buttocks Vital Signs Period Temp Pulse Resp BP Sys/Pham Pulse Ox Last 24 Hr 97.6 F-98.8 F 80-95 16-20 121-143/67-82 92-94 Laboratory Results - last 24 hr 05/29/16 05/29/16 05/29/16 11:25 16:00 21:35 WBC RBC Hgb Hct MCV MCHC RDW Plt Count MPV Neutrophils % Lymphocytes % Monocytes % Eosinophils % Basophils % Sodium Potassium Chloride Carbon Dioxide Anion Gap BUN Creatinine Creat Clearance w eGFR POC Glucometer 342 304 315 Random Glucose Calcium Total Bilirubin AST ALT Alkaline Phosphatase Total Protein Albumin 05/30/16 05/30/16 05/30/16 06:00 06:00 06:11 WBC 13.4 H RBC 4.80 Hgb 14.6 Hct 42.1 MCV 87.7 MCHC 34.6 RDW 15.2 Plt Count 290 MPV 8.7 Neutrophils % 81.2 Lymphocytes % 15.2 D Monocytes % 3.3 L D Eosinophils % 0.0 Basophils % 0.3 Sodium 140 Potassium 4.0 Chloride 100 Carbon Dioxide 29 Anion Gap 11 BUN 14 D Creatinine 0.9 Creat Clearance w eGFR > 60 POC Glucometer 218 Random Glucose 225 H Calcium 9.1 Total Bilirubin 0.5 AST 25 ALT 42 Alkaline Phosphatase 63 Total Protein 8.0 Albumin 3.0 L Active Medications Generic Name Dose Route Start Last Admin Trade Name Brayan PRN Reason Stop Dose Admin Acetaminophen 650 mg 05/28/16 18:00 Tylenol - PO Q6H PRN FEVER OR PAIN Albuterol/Ipratropium 1 amp 05/28/16 17:30 05/30/16 06:41 Duoneb - NEB 1 amp Q6H [facility] Administration Amlodipine Besylate 10 mg 05/29/16 10:00 05/30/16 09:28 Norvasc - PO 10 mg DAILY [facility] Administration Aspirin 81 mg 05/29/16 10:00 05/30/16 09:28 Asa - PO 81 mg DAILY [facility] Administration Atorvastatin Calcium 10 mg 05/28/16 22:00 05/29/16 21:37 Lipitor - PO 10 mg HS [facility] Administration Docusate Sodium 100 mg 05/29/16 14:00 05/30/16 06:12 Colace - PO 100 mg TID [facility] Administration Enoxaparin Sodium 40 mg 05/29/16 10:00 05/30/16 09:28 Lovenox - SQ 40 mg DAILY [facility] Administration Escitalopram Oxalate 10 mg 05/29/16 10:00 05/30/16 09:29 Lexapro - PO 10 mg DAILY [facility] Administration Furosemide 40 mg 05/29/16 10:00 05/30/16 09:29 Lasix - PO 40 mg DAILY [facility] Administration Gabapentin 300 mg 05/29/16 10:00 05/30/16 09:28 Neurontin - PO 300 mg DAILY [facility] Administration Guaifenesin 600 mg 05/30/16 11:30 Mucinex - PO BID [facility] Azithromycin 250 mg/ Dextrose 250 mls @ 250 mls/hr 05/29/16 10:00 05/30/16 10: 11 IVPB 250 mls/hr DAILY [facility] Administration Insulin Aspart 1 vial 05/29/16 15:42 05/30/16 06:33 Novolog Vial Sliding Scale - SQ 6 units ACHS [facility] Administration Protocol Insulin Detemir 45 units 05/29/16 07:00 05/30/16 06:40 Levemir Vial SQ 45 units AM [facility] Administration Insulin Detemir 35 units 05/29/16 15:41 05/29/16 21:37 Levemir Vial SQ 35 units HS [facility] Administration Methylprednisolone Sodium Succinate 40 mg 05/30/16 22:00 Solu-Medrol - IVPB BID [facility] Nystatin 1 applic 05/30/16 11:45 Mycostatin Cream - TP BID [facility] Ondansetron HCl 4 mg 05/28/16 18:00 Zofran Injection IVPB Q6H PRN NAUSEA Polyethylene Glycol 17 gm 05/30/16 10:00 05/30/16 09:29 Miralax (For Daily Use) - PO 17 grams DAILY [facility] Administration Potassium Chloride 20 meq 05/28/16 22:00 05/30/16 09:28 K-Dur - PO 20 meq BID [facility] Administration Repaglinide 1 mg 05/29/16 07:00 05/30/16 06:13 Prandin - PO 1 mg ACBK [facility] Administration ASSESSMENT/PLAN: Patient is a 76 year old male with a significant past medical history of CVA with residual right sided weakness, CHF, hypertension, high cholesterol and diabetes who presents to the emergency department on 05/28/16 with worsening cough. The patient states he has been coughing a while but coughing worsened over the last few weeks with difficulty breathing. He reports some associated chest pain worse with coughing, non radiating. On exam he denies chest pain and shortness of breath. He is tolerating room air. Pulmonary: Cough associated with shortness of breath- acute Assessment/Plan: Differentials include COPD exacerbation vs. acute Bronchitis vs Right lower lobe Pneumonia 05/28/2016 chest xray shows mild atelectatic changes in right lung base Has a moist non productive cough, oxygen saturations on room air: 92%, will order pre and post On Azithromycin 250mg daily and Solu Medrol 40mg BID Albuterol q6 scheduled Oxygen as needed for respiratory distress Pulmonary following Cardiology: Hypertension - chronic Assessment/Plan: Controlled on Norvasc 10mg daily Monitor BPs CHF - chronic Assessment/Plan: On Lasix 40mg daily Hyperlipidemia - chronic Assessment/Plan: On Atorvastin 10mg daily Neurology: CVA with right sided weakness - chronic Assessment/Plan: On ASA 81mg daily PT Eval ordered Endocrine: Diabetes - chronic Assessment/Plan: BGMs elevated Sliding scale adjusted for tighter control, Levemir night dose increased again Monitor BGMs for improvement F.E.N. Fluids: Tolerating PO Electrolytes: BMP in a.m. Nutrition: Diabetic diet Prophylaxis DVT: Lovenox 40mg daily GI: Protonix PT consult Visit type - Emergency Visit Emergency Visit: Yes ED Registration Date: 05/31/16 Care time: The patient presented to the Emergency Department on the above date and was hospitalized for further evaluation of their emergent condition. - New Patient This patient is new to me today: Yes Date on this admission: 06/05/16 - Critical Care Critical Care patient: No - Discharge Referral Referred to [facility] Med P.C.: No
[2016-05-30] MEDS: guaiFENesin 600 MG TABLET.ER (FP) PO SCH ×2 (11:48→21:36)
[2016-05-30] MEDS: NYSTATIN 100,000 UNIT/GM TOPICAL CREAM 15 GM TUBE TP SCH ×2 (12:30→21:36)
[2016-05-30] MEDS ORDERED: ALBUTEROL SO4 0.5 % INH SOLN 2.5 MG/0.5 ML VIAL.NEB. NEB ONE (18:58)
[2016-05-30] MEDS: ATORVASTATIN CA 10 MG TABLET (FP) PO SCH (21:36)
[2016-05-31] MEDS: ALBUTEROL SO4 2.5/IPRATROPIUM 0.5 INH SOL 3 ML VIAL.NEB. NEB SCH ×5 (06:20→22:59)
[2016-05-31] MEDS: DOCUSATE SODIUM 100 MG CAPSULE (FP) PO SCH ×3 (06:53→21:14)
[2016-05-31] MEDS: REPAGLINIDE 1 MG TABLET PO SCH (06:53)
[2016-05-31] MEDS: INSULIN DETEMIR 100 UNITS/ML MDV SQ SCH ×2 (06:53→21:12)
[2016-05-31] MEDS: INSULIN SLIDING SCALE (NOVOLOG) 1 VIAL SQ SCH ×4 (06:54→21:20)
[2016-05-31 06:58] LABS: BASOPHIL 0.2 % (0-2.0); MCH 30.4 pg (25.7-33.7); MCHC 34.8 g/dl (32.0-35.9); MEAN CELL VOLUME 87.4 fl (80-96); MEAN PLT VOLUME 8.5 fl (7.5-11.1); NEUTROPHILS 74.6 % (42.8-82.8); PLATELET COUNT 245 K/MM3 (134-434); RDW 14.8 % (11.9-15.9)
[2016-05-31] MEDS ORDERED: INSULIN (NOVOLOG) ASPART 100 UNITS/ML 10ML VIAL ONE ×4 (06:59→21:19)
[2016-05-31 07:23] LABS: ALBUMIN 2.8 g/dl (3.4-5.0); ANION GAP 10 (8-16); BILIRUBIN,TOTAL 0.8 mg/dL (0.2-1.0); CALCIUM 8.6 mg/dL (8.5-10.1); CO2 30 mmol/L (21-32); CREATININE 0.9 mg/dL (0.7-1.3); GLUCOSE,RANDOM 193 mg/dL (74-106); SGOT/AST 29 U/L (15-37); SGPT/ALT 54 U/L (12-78)
[2016-05-31 07:24] LABS: ALK PHOS 60 U/L (45-117); TOT PROT 7.5 g/dl (6.4-8.2)
[2016-05-31] MEDS ORDERED: PT OWN MED DRAWER 7, Y5N ONE (09:31)
[2016-05-31] MEDS: AZITHROMYCIN IVPB 250 MG in DEXTROSE 5%-WATER - 250 ML IVPB SCH (09:34)
[2016-05-31] MEDS: GABAPENTIN 300 MG CAPSULE (FP) PO SCH (09:35)
[2016-05-31] MEDS: methylPREDNISolone NA SUCC 40 MG/1 ML VIAL IVPB SCH (09:35)
[2016-05-31] MEDS: ENOXAPARIN NA (PORCINE) 40 MG/0.4 ML DISP.SYRIN SQ SCH (09:35)
[2016-05-31] MEDS: FUROSEMIDE 40 MG TABLET (FP) PO SCH (09:35)
[2016-05-31] MEDS: guaiFENesin 600 MG TABLET.ER (FP) PO SCH ×2 (09:35→21:08)
[2016-05-31] MEDS: POTASSIUM CHLORIDE TABS 20 MEQ TABLET.ER (FP) PO SCH ×2 (09:35→21:22)
[2016-05-31] MEDS: ASPIRIN 81 MG CHEWABLE TABLETS PO SCH (09:35)
[2016-05-31] MEDS: amLODIPine BESYLATE 10 MG TABLET (FP) PO SCH (09:35)
[2016-05-31] MEDS: ESCITALOPRAM OXALATE 10 MG TABLET (FP) PO SCH (09:36)
[2016-05-31] MEDS: NYSTATIN 100,000 UNIT/GM TOPICAL CREAM 15 GM TUBE TP SCH ×2 (09:36→23:07)
[2016-05-31] MEDS: POLYETHYLENE GLYCOL 3350 119 GM BTL PO SCH (09:36)
--- NOTE | 2016-05-31 10:42 | PN ---
Progress Note (short form) - Note Progress Note: PULMONARY States breathing is better today. Cough and wheezing resolving. No fevers or chills. Last Vital Signs Temp Pulse Resp BP Pulse Ox 97.8 F 61 20 141/84 94 L 05/31/16 05:00 05/31/16 05:00 05/31/16 05:00 05/31/16 05:00 05/30/16 23:43 Gen: NAD in chair Heart: RRR Lung: decreased breath sounds at the bases, no wheezes appreciated Abd: soft, nontender Ext: no edema CBC, BMP 05/31/16 06:00 05/31/16 06:00 Active Medications Acetaminophen (Tylenol -) 650 mg PO Q6H PRN PRN Reason: FEVER OR PAIN Albuterol/Ipratropium (Duoneb -) 1 amp NEB Q6H [facility] Last Admin: 05/31/16 06:20 Dose: 1 amp Amlodipine Besylate (Norvasc -) 10 mg PO DAILY [facility] Last Admin: 05/31/16 09:35 Dose: 10 mg Aspirin (Asa -) 81 mg PO DAILY [facility] Last Admin: 05/31/16 09:35 Dose: 81 mg Atorvastatin Calcium (Lipitor -) 10 mg PO HS [facility] Last Admin: 05/30/16 21:36 Dose: 10 mg Docusate Sodium (Colace -) 100 mg PO TID [facility] Last Admin: 05/31/16 06:53 Dose: 100 mg Enoxaparin Sodium (Lovenox -) 40 mg SQ DAILY [facility] Last Admin: 05/31/16 09:35 Dose: 40 mg Escitalopram Oxalate (Lexapro -) 10 mg PO DAILY [facility] Last Admin: 05/31/16 09:36 Dose: 10 mg Furosemide (Lasix -) 40 mg PO DAILY [facility] Last Admin: 05/31/16 09:35 Dose: 40 mg Gabapentin (Neurontin -) 300 mg PO DAILY [facility] Last Admin: 05/31/16 09:35 Dose: 300 mg Guaifenesin (Mucinex -) 600 mg PO BID [facility] Last Admin: 05/31/16 09:35 Dose: 600 mg Azithromycin 250 mg/ Dextrose 250 mls @ 250 mls/hr IVPB DAILY [facility] Last Admin: 05/31/16 09:34 Dose: 250 mls/hr Insulin Aspart (Novolog Vial Sliding Scale -) 1 vial SQ ACHS [facility] PRN Reason: Protocol Last Admin: 05/31/16 06:54 Dose: 4 units Insulin Detemir (Levemir Vial) 45 units SQ AM [facility] Last Admin: 05/31/16 06:53 Dose: 45 units Insulin Detemir (Levemir Vial) 45 units SQ HS [facility] Last Admin: 05/30/16 21:35 Dose: 45 unit Methylprednisolone Sodium Succinate (Solu-Medrol -) 40 mg IVPB BID [facility] Last Admin: 05/31/16 09:35 Dose: 40 mg Nystatin (Mycostatin Cream -) 1 applic TP BID [facility] Last Admin: 05/31/16 09:36 Dose: 1 applic Ondansetron HCl (Zofran Injection) 4 mg IVPB Q6H PRN PRN Reason: NAUSEA Polyethylene Glycol (Miralax (For Daily Use) -) 17 gm PO DAILY [facility] Last Admin: 05/31/16 09:36 Dose: 17 grams Potassium Chloride (K-Dur -) 20 meq PO BID [facility] Last Admin: 05/31/16 09:35 Dose: 20 meq Repaglinide (Prandin -) 1 mg PO ACBK [facility] Last Admin: 05/31/16 06:53 Dose: 1 mg A/P Acute COPD Exacerbation Acute Bronchitis r/o Pneumonia HTN h/o CVA CHF DM - can change steroids to PO prednisone 40mg daily and taper - inhaled bronchodilators - O2 as needed - continue empiric antibiotics - incentive spirometry - DVT prophylaxis - rehab/PT - d/c planning to SNF in progress or home but will need home O2
--- NOTE | 2016-05-31 11:17 | PN ---
Physical Exam: SUBJECTIVE: Patient seen and examined. States he feels well. Had BM yesterday and more comfortable Pre and post oxygen status: Pre and post oxygen status: 97% resting in bed/ room air, 88% on room air and at REST. Respiratory increased to 28 with ambulation. OBJECTIVE: Vital Signs Period Temp Pulse Resp BP Sys/Pham Pulse Ox Last 24 Hr 97.8 F-98.8 F 61-102 18-20 125-141/62-84 94-94 GENERAL: Awake, alert, and fully oriented, in no acute distress. HEAD: Normal with no signs of trauma. EYES: Pupils equal, round and reactive to light, extraocular movements intact, sclera anicteric, conjunctiva clear. No lid lag. ENT: Ears normal, nares patent, oropharynx clear without exudates. Moist mucous membranes. NECK: Normal range of motion, supple without lymphadenopathy, JVD, or masses. LUNGS: Anterior lungs with rhonchi. Left lung diminished. Right lower lobe with rhonchi Pre and post oxygen status: 97% resting in bed/room air, 88% on room air and at REST. Respiratory increased to 28 with ambulation. HEART: Regular rate and rhythm ABDOMEN: Soft, nontender, distended, + bowel sounds, constipated LOWER EXT: Right lower extremity +1 edema, no calf tenderness, negative for DVT NEUROLOGICAL: Normal speech. Right sided weakness s/p CVA PSYCHIATRIC: Cooperative. Good eye contact. SKIN: Excoriated buttocks Laboratory Results - last 24 hr 05/30/16 05/30/16 05/30/16 12:07 16:58 21:34 WBC RBC Hgb Hct MCV MCHC RDW Plt Count MPV Neutrophils % Lymphocytes % Monocytes % Eosinophils % Basophils % Sodium Potassium Chloride Carbon Dioxide Anion Gap BUN Creatinine Creat Clearance w eGFR POC Glucometer 303 276 261 Random Glucose Calcium Total Bilirubin AST ALT Alkaline Phosphatase Total Protein Albumin 05/31/16 05/31/16 05/31/16 05:53 06:00 06:00 WBC 13.0 H RBC 4.65 Hgb 14.2 Hct 40.7 MCV 87.4 MCHC 34.8 RDW 14.8 Plt Count 245 MPV 8.5 Neutrophils % 74.6 Lymphocytes % 17.7 Monocytes % 7.5 D Eosinophils % 0.0 Basophils % 0.2 Sodium 139 Potassium 4.0 Chloride 99 Carbon Dioxide 30 Anion Gap 10 BUN 13 Creatinine 0.9 Creat Clearance w eGFR > 60 POC Glucometer 180 Random Glucose 193 H Calcium 8.6 Total Bilirubin 0.8 D AST 29 ALT 54 D Alkaline Phosphatase 60 Total Protein 7.5 Albumin 2.8 L Active Medications Generic Name Dose Route Start Last Admin Trade Name Freq PRN Reason Stop Dose Admin Acetaminophen 650 mg 05/28/16 18:00 Tylenol - PO Q6H PRN FEVER OR PAIN Albuterol/Ipratropium 1 amp 05/28/16 17:30 05/31/16 11:11 Duoneb - NEB 1 amp Q6H [facility] Administration Amlodipine Besylate 10 mg 05/29/16 10:00 05/31/16 09:35 Norvasc - PO 10 mg DAILY [facility] Administration Aspirin 81 mg 05/29/16 10:00 05/31/16 09:35 Asa - PO 81 mg DAILY [facility] Administration Atorvastatin Calcium 10 mg 05/28/16 22:00 05/30/16 21:36 Lipitor - PO 10 mg HS [facility] Administration Docusate Sodium 100 mg 05/29/16 14:00 05/31/16 06:53 Colace - PO 100 mg TID [facility] Administration Enoxaparin Sodium 40 mg 05/29/16 10:00 05/31/16 09:35 Lovenox - SQ 40 mg DAILY [facility] Administration Escitalopram Oxalate 10 mg 05/29/16 10:00 05/31/16 09:36 Lexapro - PO 10 mg DAILY [facility] Administration Furosemide 40 mg 05/29/16 10:00 05/31/16 09:35 Lasix - PO 40 mg DAILY [facility] Administration Gabapentin 300 mg 05/29/16 10:00 05/31/16 09:35 Neurontin - PO 300 mg DAILY [facility] Administration Guaifenesin 600 mg 05/30/16 11:30 05/31/16 09:35 Mucinex - PO 600 mg BID [facility] Administration Azithromycin 250 mg/ Dextrose 250 mls @ 250 mls/hr 05/29/16 10:00 05/31/16 09: 34 IVPB 250 mls/hr DAILY [facility] Administration Insulin Aspart 1 vial 05/29/16 15:42 05/31/16 06:54 Novolog Vial Sliding Scale - SQ 4 units ACHS [facility] Administration Protocol Insulin Detemir 45 units 05/29/16 07:00 05/31/16 06:53 Levemir Vial SQ 45 units AM [facility] Administration Insulin Detemir 45 units 05/30/16 22:00 05/30/16 21:35 Levemir Vial SQ 45 unit HS [facility] Administration Nystatin 1 applic 05/30/16 11:45 05/31/16 09:36 Mycostatin Cream - TP 1 applic BID [facility] Administration Ondansetron HCl 4 mg 05/28/16 18:00 Zofran Injection IVPB Q6H PRN [facility] Polyethylene Glycol 17 gm 05/30/16 10:00 05/31/16 09:36 Miralax (For Daily Use) - PO 17 grams DAILY [facility] Administration Potassium Chloride 20 meq 05/28/16 22:00 05/31/16 09:35 K-Dur - PO 20 meq BID [facility] Administration Prednisone 40 mg 06/01/16 10:00 Deltasone - PO DAILY [facility] Repaglinide 1 mg 05/29/16 07:00 05/31/16 06:53 Prandin - PO 1 mg ACBK [facility] Administration ASSESSMENT/PLAN: Patient is a 76 year old male with a significant past medical history of CVA with residual right sided weakness, CHF, hypertension, high cholesterol and diabetes who presents to the emergency department on 05/28/16 with worsening cough. The patient states he has been coughing a while but coughing worsened over the last few weeks with difficulty breathing. He reports some associated chest pain worse with coughing, non radiating. On exam he denies chest pain and shortness of breath. However, Pre and post oxygen status: 97% resting in bed/room air, 88% on room air and at REST. Respiratory increased to 28 with ambulation, clearly had shortness of breath with ambulation, needs home oxygen. Safety addressed with patient, he denies that he smokes or that anyone in his family smokes. Pulmonary: Cough associated with shortness of breath- acute Assessment/Plan: Differentials include COPD exacerbation vs. acute Bronchitis vs Right lower lobe Pneumonia 05/28/2016 chest xray shows mild atelectatic changes in right lung base On Azithromycin 250mg daily and Solu Medrol 40mg BID Albuterol q6 scheduled Oxygen as needed for respiratory distress which he will need when discharged Pulmonary following Cardiology: Hypertension - chronic Assessment/Plan: Controlled on Norvasc 10mg daily Monitor BPs CHF - chronic Assessment/Plan: On Lasix 40mg daily Hyperlipidemia - chronic Assessment/Plan: On Atorvastin 10mg daily Neurology: CVA with right sided weakness - chronic Assessment/Plan: On ASA 81mg daily Was able to ambulate with PT using a rolling walker, but was very weak. He is a 2 person assist for safety. Very high fall risk. Oxygen saturations pre and post as noted above Endocrine: Diabetes - chronic Assessment/Plan: BGMs elevated Monitor BGMs for improvement F.E.N. Fluids: Tolerating PO Electrolytes: within normal limits Nutrition: Diabetic diet Prophylaxis DVT: Lovenox 40mg daily GI: Protonix PT followin Visit type - Emergency Visit Emergency Visit: Yes ED Registration Date: 05/31/16 Care time: The patient presented to the Emergency Department on the above date and was hospitalized for further evaluation of their emergent condition. - New Patient This patient is new to me today: No - Critical Care Critical Care patient: No - Discharge Referral Referred to [facility] Med P.C.: No
--- NOTE | 2016-05-31 15:07 | DS ---
Physical Exam: SUBJECTIVE: Patient seen and examined. States he feels well. Had BM yesterday and more comfortable Pre and post oxygen status: 97% resting in bed/room air, 88% on room air and at REST. Respiratory increased to 28 with ambulation. OBJECTIVE: Vital Signs Period Temp Pulse Resp BP Sys/Pham Pulse Ox Last 24 Hr 97.8 F-98.8 F 61-102 18-20 125-141/62-84 94-94 GENERAL: Awake, alert, and fully oriented, in no acute distress. HEAD: Normal with no signs of trauma. EYES: Pupils equal, round and reactive to light, extraocular movements intact, sclera anicteric, conjunctiva clear. No lid lag. ENT: Ears normal, nares patent, oropharynx clear without exudates. Moist mucous membranes. NECK: Normal range of motion, supple without lymphadenopathy, JVD, or masses. LUNGS: Anterior lungs with rhonchi. Left lung diminished. Right lower lobe with rhonchi Pre and post oxygen status: 97% resting in bed/room air, 88% on room air and at REST. Respiratory increased to 28 with ambulation. HEART: Regular rate and rhythm ABDOMEN: Soft, nontender, distended, + bowel sounds, constipated LOWER EXT: Right lower extremity +1 edema, no calf tenderness, negative for DVT NEUROLOGICAL: Normal speech. Right sided weakness s/p CVA PSYCHIATRIC: Cooperative. Good eye contact. SKIN: Excoriated buttocks LABS Laboratory Results - last 24 hr 05/30/16 05/30/16 05/30/16 12:07 16:58 21:34 WBC RBC Hgb Hct MCV MCHC RDW Plt Count MPV Neutrophils % Lymphocytes % Monocytes % Eosinophils % Basophils % Sodium Potassium Chloride Carbon Dioxide Anion Gap BUN Creatinine Creat Clearance w eGFR POC Glucometer 303 276 261 Random Glucose Calcium Total Bilirubin AST ALT Alkaline Phosphatase Total Protein Albumin 05/31/16 05/31/16 05/31/16 05:53 06:00 06:00 WBC 13.0 H RBC 4.65 Hgb 14.2 Hct 40.7 MCV 87.4 MCHC 34.8 RDW 14.8 Plt Count 245 MPV 8.5 Neutrophils % 74.6 Lymphocytes % 17.7 Monocytes % 7.5 D Eosinophils % 0.0 Basophils % 0.2 Sodium 139 Potassium 4.0 Chloride 99 Carbon Dioxide 30 Anion Gap 10 BUN 13 Creatinine 0.9 Creat Clearance w eGFR > 60 POC Glucometer 180 Random Glucose 193 H Calcium 8.6 Total Bilirubin 0.8 D AST 29 ALT 54 D Alkaline Phosphatase 60 Total Protein 7.5 Albumin 2.8 L 05/31/16 11:29 WBC RBC Hgb Hct MCV MCHC RDW Plt Count MPV Neutrophils % Lymphocytes % Monocytes % Eosinophils % Basophils % Sodium Potassium Chloride Carbon Dioxide Anion Gap BUN Creatinine Creat Clearance w eGFR POC Glucometer 269 Random Glucose Calcium Total Bilirubin AST ALT Alkaline Phosphatase Total Protein Albumin HOSPITAL COURSE: Date of Admission:05/28/16 Date of Discharge: 05/31/16 ASSESSMENT/PLAN: Patient is a 76 year old male with a significant past medical history of CVA with residual right sided weakness, CHF, hypertension, high cholesterol and diabetes who presents to the emergency department on 05/28/16 with worsening cough. The patient states he has been coughing a while but coughing worsened over the last few weeks with difficulty breathing. He reports some associated chest pain worse with coughing, non radiating. On exam he denies chest pain and shortness of breath. However, Pre and post oxygen status: 97% resting in bed/room air, 88% on room air and at REST. Respiratory increased to 28 with ambulation, clearly had shortness of breath with ambulation, needs home oxygen. Safety addressed with patient, he denies that he smokes or that anyone in his family smokes. Pulmonary: Cough associated with shortness of breath- acute Assessment/Plan: Differentials include COPD exacerbation vs. acute Bronchitis vs Right lower lobe Pneumonia 05/28/2016 chest xray shows mild atelectatic changes in right lung base On Azithromycin 250mg daily for 4 more day and Prednisone taper Albuterol q6 scheduled Oxygen as needed for respiratory distress which he will need when discharged Pulmonary following Cardiology: Hypertension - chronic Assessment/Plan: Controlled on Norvasc 10mg daily Monitor BPs CHF - chronic Assessment/Plan: On Lasix 40mg daily Hyperlipidemia - chronic Assessment/Plan: On Atorvastin 10mg daily Neurology: CVA with right sided weakness - chronic Assessment/Plan: On ASA 81mg daily Was able to ambulate with PT using a rolling walker, but was very weak. He is a 2 person assist for safety. Very high fall risk. Oxygen saturations pre and post as noted above Endocrine: Diabetes - chronic Assessment/Plan: BGMs elevated Monitor BGMs for improvement Minutes to complete discharge: 45 Discharge Summary Reason For Visit: BRONCHITIS Current Active Problems Bronchitis (Acute) Cough (Acute) DVT prophylaxis (Acute) Diabetes (Acute) Hyperlipidemia (Acute) Hypertension (Acute) Pneumonia (Acute) Condition: Guarded - Instructions Diet, Activity, Other Instructions: Please take prednisone as follows: On Take 06/01/2016 Prednisone 40mg 06/02/2016 Prednisone 40mg 06/03/2016 Prednisone 30mg 06/04/2016 Prednisone 30mg 06/05/2016 Prednisone 30mg 06/06/2016 Prednisone 20mg 06/07/2016 Prednisone 20mg 06/08/2016 Prednisone 20mg 06/09/2016 Prednisone 10mg 06/10/2016 Prednisone 10mg 06/11/2016 Prednisone 10mg Then stop prednisone Continue your Antiboitics of Azitromycin for another another 4 days Please returnto the ER if you have any of the following: Worsening shortness of breath Chest pain Worsening cough Referrals: Nahum Padilla MD [Staff Physician] - STAFF,NOT ON [Primary Care Provider] - Disposition: HOME - Home Medications Comprehensive Discharge Medication List: Ambulatory Orders Amlodipine Besylate 10 mg PO DAILY 12/10/15 Aspirin [ASA -] 81 mg PO DAILY 12/10/15 Atorvastatin Ca [Lipitor] 10 mg PO DAILY 12/10/15 Escitalopram Oxalate [Lexapro -] 10 mg PO DAILY 12/10/15 Furosemide [Lasix -] 40 mg PO DAILY 12/10/15 Gabapentin 300 mg PO DAILY 12/10/15 Insulin Detemir [Levemir Flextouch] 30 unit SQ HS 12/10/15 Insulin Detemir [Levemir Flextouch] 45 unit SQ AM 12/10/15 Potassium Chloride [Klor-Con M20] 20 meq PO BID 12/10/15 Repaglinide 1 mg PO DAILY 12/10/15 Nebulizer/Compressor [Comp-Air Elite Comp Nebulizer] 1 each MC Q8H PRN #1 each 12/11/15 Albuterol 0.083% Nebulizer Bethanie [Ventolin 0.083% Nebulizer Soln -] 1 neb NEB Q8H PRN 01/12/16 Collagenase Clostridium Hist. [Santyl -] 1 applic TP DAILY #90 applic 01/12/16 Azithromycin 250 mg PO DAILY #4 tablet 05/31/16 Guaifenesin [Mucinex -] 600 mg PO BID tablet.er 05/31/16 Prednisone 10 mg PO DAILY #30 tablet 05/31/16 This patient is new to me today: No Emergency Visit: Yes ED Registration Date: 05/31/16 Care time: The patient presented to the Emergency Department on the above date and was hospitalized for further evaluation of their emergent condition. Critical Care patient: No - Discharge Referral Referred to [facility] No
[2016-05-31] MEDS ORDERED: guaiFENesin/D-M SUGAR-FREE/ACLHOL-FREE 118 ML BOTTLE PO PRN (18:44)
[2016-05-31] MEDS: ATORVASTATIN CA 10 MG TABLET (FP) PO SCH (21:14)
[2016-06-01] MEDS ORDERED: REPAGLINIDE 0.5 MG TABLET (FP) PO SCH (05:56)
[2016-06-01] MEDS: DOCUSATE SODIUM 100 MG CAPSULE (FP) PO SCH (06:13)
[2016-06-01] MEDS: ALBUTEROL SO4 2.5/IPRATROPIUM 0.5 INH SOL 3 ML VIAL.NEB. NEB SCH ×3 (06:30→11:20)
[2016-06-01] MEDS: INSULIN SLIDING SCALE (NOVOLOG) 1 VIAL SQ SCH (06:51)
[2016-06-01] MEDS: INSULIN DETEMIR 100 UNITS/ML MDV SQ SCH (06:52)
[2016-06-01] MEDS ORDERED: PT OWN MED DRAWER 7, Y5N ONE (09:04)
[2016-06-01] MEDS: NYSTATIN 100,000 UNIT/GM TOPICAL CREAM 15 GM TUBE TP SCH (09:48)
[2016-06-01] MEDS: amLODIPine BESYLATE 10 MG TABLET (FP) PO SCH (09:48)
[2016-06-01] MEDS: ESCITALOPRAM OXALATE 10 MG TABLET (FP) PO SCH (09:48)
[2016-06-01] MEDS: POLYETHYLENE GLYCOL 3350 119 GM BTL PO SCH (09:48)
[2016-06-01] MEDS: ENOXAPARIN NA (PORCINE) 40 MG/0.4 ML DISP.SYRIN SQ SCH (09:48)
[2016-06-01] MEDS: FUROSEMIDE 40 MG TABLET (FP) PO SCH (09:48)
[2016-06-01] MEDS: ASPIRIN 81 MG CHEWABLE TABLETS PO SCH (09:48)
[2016-06-01] MEDS: POTASSIUM CHLORIDE TABS 20 MEQ TABLET.ER (FP) PO SCH (09:48)
[2016-06-01] MEDS: guaiFENesin 600 MG TABLET.ER (FP) PO SCH (09:48)
[2016-06-01] MEDS: GABAPENTIN 300 MG CAPSULE (FP) PO SCH (09:49)
[2016-06-01] MEDS ORDERED: predniSONE 20 MG TABLET (UD) PO SCH (10:00)
--- NOTE | 2016-06-01 10:29 | PN ---
Progress Note (short form) - Note Progress Note: PULMONARY Denies shortness of breath or chest pain. Cough and wheezing resolving. No fevers or chills. Last Vital Signs Temp Pulse Resp BP Pulse Ox 98.5 F 74 20 152/79 92 L 06/01/16 05:49 06/01/16 05:49 06/01/16 05:49 06/01/16 05:49 06/01/16 01:00 Gen: NAD at rest Heart: RRR Lung: decreased breath sounds at the bases, no wheezes appreciated Abd: soft, nontender Ext: no edema CBC, BMP 05/31/16 06:00 05/31/16 06:00 Active Medications Acetaminophen (Tylenol -) 650 mg PO Q6H PRN PRN Reason: FEVER OR PAIN Albuterol/Ipratropium (Duoneb -) 1 amp NEB Q6H [facility] Last Admin: 06/01/16 06:30 Dose: 1 amp Amlodipine Besylate (Norvasc -) 10 mg PO DAILY [facility] Last Admin: 06/01/16 09:48 Dose: 10 mg Aspirin (Asa -) 81 mg PO DAILY [facility] Last Admin: 06/01/16 09:48 Dose: 81 mg Atorvastatin Calcium (Lipitor -) 10 mg PO HS [facility] Last Admin: 05/31/16 21:14 Dose: 10 mg Docusate Sodium (Colace -) 100 mg PO TID [facility] Last Admin: 06/01/16 06:13 Dose: 100 mg Enoxaparin Sodium (Lovenox -) 40 mg SQ DAILY [facility] Last Admin: 06/01/16 09:48 Dose: 40 mg Escitalopram Oxalate (Lexapro -) 10 mg PO DAILY [facility] Last Admin: 06/01/16 09:48 Dose: 10 mg Furosemide (Lasix -) 40 mg PO DAILY [facility] Last Admin: 06/01/16 09:48 Dose: 40 mg Gabapentin (Neurontin -) 300 mg PO DAILY [facility] Last Admin: 06/01/16 09:49 Dose: 300 mg Guaifenesin (Mucinex -) 600 mg PO BID [facility] Last Admin: 06/01/16 09:48 Dose: 600 mg Guaifenesin (Diabetic Tussin Dm -) 10 ml PO Q4H PRN PRN Reason: COUGH Azithromycin 250 mg/ Dextrose 250 mls @ 250 mls/hr IVPB DAILY [facility] Last Admin: 05/31/16 09:34 Dose: 250 mls/hr Insulin Aspart (Novolog Vial Sliding Scale -) 1 vial SQ ACHS FLORIN PRN Reason: Protocol Last Admin: 06/01/16 06:51 Dose: Not Given Insulin Detemir (Levemir Vial) 45 units SQ AM [facility] Last Admin: 06/01/16 06:52 Dose: 45 units Insulin Detemir (Levemir Vial) 45 units SQ HS [facility] Last Admin: 05/31/16 21:12 Dose: 45 unit Nystatin (Mycostatin Cream -) 1 applic TP BID [facility] Last Admin: 06/01/16 09:48 Dose: 1 applic Ondansetron HCl (Zofran Injection) 4 mg IVPB Q6H PRN PRN Reason: NAUSEA Polyethylene Glycol (Miralax (For Daily Use) -) 17 gm PO DAILY [facility] Last Admin: 06/01/16 09:48 Dose: Not Given Potassium Chloride (K-Dur -) 20 meq PO BID [facility] Last Admin: 06/01/16 09:48 Dose: 20 meq Prednisone (Deltasone -) 40 mg PO DAILY [facility] Last Admin: 06/01/16 09:48 Dose: 40 mg Repaglinide (Prandin -) 1 mg PO ACBK [facility] Last Admin: 06/01/16 06:12 Dose: 1 mg A/P Acute COPD Exacerbation improved Acute Bronchitis r/o Pneumonia HTN h/o CVA CHF DM - prednisone taper as outpt - inhaled bronchodilators - home O2 - continue empiric antibiotics - incentive spirometry - DVT prophylaxis - rehab/PT - d/c planning in progress
[2016-06-01] MEDS ORDERED: AZITHROMYCIN 250 MG TABLET (FP) PO ONE (10:35)
[2016-06-01] MEDS: AZITHROMYCIN IVPB 250 MG in DEXTROSE 5%-WATER - 250 ML IVPB SCH (10:41)
[2016-06-01 13:15] VITALS: BP 132/67; PULSE 90; TEMP 98.2
--- NOTE | 2016-06-02 13:54 | EKG ---
Test Reason : Blood Pressure : / mmHG Vent. Rate : 087 BPM Atrial Rate : 087 BPM P-R Int : 192 ms QRS Dur : 096 ms QT Int : 388 ms P-R-T Axes : 054 -37 054 degrees QTc Int : 466 ms SINUS RHYTHM WITH PREMATURE ATRIAL COMPLEXES LEFT AXIS DEVIATION ABNORMAL ECG WHEN COMPARED WITH ECG OF 10-DEC-2015 11:14, PREMATURE VENTRICULAR COMPLEXES ARE NO LONGER PRESENT PREMATURE ATRIAL COMPLEXES ARE NOW PRESENT NONSPECIFIC T WAVE ABNORMALITY NO LONGER EVIDENT IN INFERIOR LEADS Confirmed by LILY PUENTE, WILTON ([id number]) on 06/02/2016 1:53:27 PM Referred By: Confirmed By:WILTON BAUTISTA MD
== END 2016-06-01 13:09 | disposition home health service (06) | DRG 190 ==
LOC: JER 10:59 → INTOOBSV 16:47 → UNDOADMOB 16:47 → JERBED 16:47 → J7W 18:05 → OBSVTOIN 05-31 16:17
PROVIDERS: ADMIT Internal Medicine; ATTEND Nurse Practitioner Family
PROC: 3E0F7GC Introduction of Other Therapeutic Substance into Respiratory Tract, Via Natural or Artificial Opening (ICD-10-PCS; principal; 2016-05-30)
DX: J44.0 Chronic obstructive pulmonary disease with (acute) lower respiratory infection (principal); J18.9 Pneumonia, unspecified organism; I69.351 Hemiplegia and hemiparesis following cerebral infarction affecting right dominant side; J20.9 Acute bronchitis, unspecified; J44.1 Chronic obstructive pulmonary disease with (acute) exacerbation; Z87.891 Personal history of nicotine dependence; E11.9 Type 2 diabetes mellitus without complications; Z79.4 Long term (current) use of insulin; E78.5 Hyperlipidemia, unspecified; I11.0 Hypertensive heart disease with heart failure; I50.9 Heart failure, unspecified
CPT/HCPCS: 36415; 71010-TC; 71020-TC; 80053; 83036; 83735; 83880; 85025; 87899; 93005; 93010; 93971-TC; 94010; 94150; 94640; 94761; 97116-GP; 97162-PG; 99284-25; G0378

== ENCOUNTER 2016-10-17 11:10 | Inpatient (IN) | payer OTHER ==
--- NOTE | 2016-10-17 11:16 | PDOC ---
History of Present Illness - General History Source: Patient, Family Exam Limitations: No Limitations - History of Present Illness Initial Comments: 10/17/16 11:16 This is a 76 year old male from [facility] of CVA 11/04 (residual R-sided weakness), IDDM, HTN, and HLD who is BIBEMS due to sob and increased cough and chest pain x 3 days. Patient has chronic cough since his CVA that occasionally gets very severe and causes sob with gurgling and chest pain. he was here a year ago with the same issue, at that time evaluated by speech/swallow specialist who found no swallowing defect and recommended thin liquids and dysphagia pureed diet. He currently feels weak and dehydrated. He denies dysphagia or choking. He denies f /c, n/v, abd painm diarrhea, dysuria, h/a, dizziness, palpitations. He has some constipation last BM 2 d ago. He denies hematuria, melena, hematochezia. 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 10/17/16 13:30 10/17/16 13:30 10/17/16 13:34 10/17/16 13:36 10/17/16 14:01 <Chel Castanon - Last Filed: 10/17/16 14:47> <Jesica Lenz - Last Filed: 10/17/16 15:16> - General Stated Complaint: COUGH Past History - Past Medical History Anemia: No Asthma: No Cancer: No Cardiac Disorders: Yes CVA: Yes (rt side hemeparesis) COPD: No CHF: Yes Dementia: No Diabetes: Yes GI Disorders: No Disorders: No HTN: Yes Hypercholesterolemia: Yes Liver Disease: No Seizures: No Thyroid Disease: No - Surgical History Abdominal Surgery: No Appendectomy: No Cardiac Surgery: No Cholecystectomy: No Lung Surgery: No Neurologic Surgery: No Orthopedic Surgery: No - Immunization History Immunization Up to Date: Yes - Psycho/Social/Smoking Cessation Hx Anxiety: No Suicidal Ideation: No Smoking Status: No Smoking History: Former smoker Have you smoked in the past 12 months: No Number of Cigarettes Smoked Daily: 0 If you are a former smoker, when did you quit?: 6 years ago Hx Alcohol Use: No Drug/Substance Use Hx: No Substance Use Type: None Hx Substance Use Treatment: No <Chel Castanon - Last Filed: 10/17/16 14:47> <Jesica Lenz - Last Filed: 10/17/16 15:16> - Past Medical History Allergies/Adverse Reactions: Allergies Allergy/AdvReac Type Severity Reaction Status Date / Time No Known Allergies Allergy Verified 10/17/16 11:43 Home Medications: Ambulatory Orders Amlodipine Besylate 10 mg PO DAILY 12/10/15 Aspirin [ASA -] 81 mg PO DAILY 12/10/15 Atorvastatin Ca [Lipitor] 10 mg PO DAILY 12/10/15 Escitalopram Oxalate [Lexapro -] 10 mg PO DAILY 12/10/15 Furosemide [Lasix -] 40 mg PO DAILY 12/10/15 Gabapentin 300 mg PO DAILY 12/10/15 Insulin Detemir [Levemir Flextouch] 30 unit SQ HS 12/10/15 Insulin Detemir [Levemir Flextouch] 45 unit SQ AM 12/10/15 Potassium Chloride [Klor-Con M20] 20 meq PO BID 12/10/15 Repaglinide 1 mg PO DAILY 12/10/15 Nebulizer/Compressor [Comp-Air Elite Comp Nebulizer] 1 each MC Q8H PRN #1 each 12/11/15 Albuterol 0.083% Nebulizer Bethanie [Ventolin 0.083% Nebulizer Soln -] 1 neb NEB Q8H PRN 01/12/16 Collagenase Clostridium Hist. [Santyl -] 1 applic TP DAILY #90 applic 01/12/16 Azithromycin 250 mg PO DAILY #4 tablet 05/31/16 Guaifenesin [Mucinex -] 600 mg PO BID tablet.er 05/31/16 Prednisone 10 mg PO DAILY #30 tablet 05/31/16 Review of Systems - Review of Systems Able to Perform ROS?: Yes Is the patient limited Lao proficient: No Constitutional: Yes: Weakness. No: Chills, Fever HEENTM: No: Blurred Vision, Nose Congestion, Throat Pain, Difficulty Swallowing Respiratory: Yes: Cough, Shortness of Breath. No: Orthopnea, Wheezing, Productive cough, Hemoptysis Cardiac (ROS): Yes: Chest Pain. No: Edema, Lightheadedness, Palpitations ABD/GI: Yes: Abdominal Distended, Constipated. No: Blood Streaked Bowels, Diarrhea, Nausea, Vomiting, Abdominal cramping, Tarry Stools : No: Dysuria, Flank Pain Musculoskeletal: Yes: Muscle Weakness. No: Back Pain, Joint Swelling Integumentary: No: Bruising, Rash Neurological: Yes: Pre-Existing Deficit (rue, rle and l face weakness ) Endocrine: No: Increased Urine, Change in Weight Hematologic/Lymphatic: No: Anemia, Blood Clots, Easy Bleeding, Easy Bruising All Other Systems: Reviewed and Negative <Chel Castanon - Last Filed: 10/17/16 14:47> *Physical Exam - Physical Exam Comments: 10/17/16 13:38 10/17/16 13:38 General: nad, aao/x HEENT: normocephalic, atraumatic, perrla, eomi, +scleral icterus, large amount of mucous in back of throat, perrla, eomi Neuro: L sided facial droop sparing forehead, sensationintact, strength 4-/5 RUE , 4+/5 LUE, 1/5 RLE, 4+/5 LLE reflexes 2+ rue, 1+ lue, 1+ le b/l CV: rrr s1s2 Pulm: lung restrepo cta b/l, loud upper airway gurgling GI: soft, nontender, moverately distended, tympanic, reduced bowel sounds, no mass . Musculoskeletal: trace le edema b/l <Chel Castanon - Last Filed: 10/17/16 14:47> - Vital Signs Last Vital Signs Temp Pulse Resp BP Pulse Ox 99.5 F 96 H 18 142/98 98 10/17/16 11:31 10/17/16 11:31 10/17/16 11:31 10/17/16 11:31 10/17/16 12:19 <Jesica Lenz - Last Filed: 10/17/16 15:16> Heart Score/ECG Review #1 ECG reviewed & interpreted by me at: 01:30 (sinus arrythmia, l axis, no st changes ) <Chel Castanon - Last Filed: 10/17/16 14:47> ED Treatment Course - LABORATORY CBC & Chemistry Diagram: 10/17/16 11:48 10/17/16 11:48 <Chel Castanon - Last Filed: 10/17/16 14:47> - LABORATORY CBC & Chemistry Diagram: 10/17/16 11:48 10/17/16 11:48 - ADDITIONAL ORDERS Additional order review: Laboratory Results 10/17/16 10/17/16 10/17/16 13:32 13:32 13:32 Sodium Potassium Chloride Carbon Dioxide Anion Gap BUN Creatinine Creat Clearance w eGFR Random Glucose Lactic Acid 1.9 Calcium Total Bilirubin Direct Bilirubin 5.7 H AST ALT Alkaline Phosphatase Ammonia 29.78 Creatine Kinase Troponin I Total Protein Albumin Acetaminophen 10/17/16 10/17/16 13:32 11:48 Sodium 136 Potassium 3.6 Chloride 97 L Carbon Dioxide 28 Anion Gap 11 BUN 7 D Creatinine 1.1 D Creat Clearance w eGFR > 60 Random Glucose 260 H D Lactic Acid Calcium 8.7 Total Bilirubin 8.0 H D Direct Bilirubin AST 438 H D ALT 525 H D Alkaline Phosphatase 199 H D Ammonia Creatine Kinase 107 Troponin I 0.03 Total Protein 7.4 Albumin 2.8 L Acetaminophen < 2 L 10/17/16 11:48 RBC 4.65 MCV 90.8 MCHC 34.9 RDW 14.6 MPV 8.8 Neutrophils % 68.0 Lymphocytes % 19.0 Monocytes % 7.0 - Medications Given in the ED: ED Medications Discontinued Medications Generic Name Dose Route Start Last Admin Trade Name Freq PRN Reason Stop Dose Admin Sodium Chloride 500 mls @ 500 mls/hr 10/17/16 11:41 10/17/16 12:07 Normal Saline - IV 10/17/16 12:40 500 mls/hr ASDIR STA Administration <Jesica Lenz - Last Filed: 10/17/16 15:16> Medical Decision Making - Medical Decision Making 10/17/16 13:23 patient with pmh of CVA presents with worsening cough, sob and chest pain, CBC w diff, cmp, cardiac profile, ekg, cxr, ct head w/o contrast 10/17/16 13:25 -CBC unremarkable -CMP: Laboratory Tests 05/31/16 10/17/16 06:00 11:48 Total Bilirubin 0.8 D 8.0 H D AST 29 438 H D ALT 54 D 525 H D Alkaline Phosphatase 60 199 H D -liver and bilirubin abnormal compared to last visit. Patient states he has been taking 2 tylenol/day. order acetamenopen level, d bili, ammonia, lactic acid, US of abd. -d bili 5.7, ammonia and lactic acid wnl 10/17/16 13:28 -cxr bibasilar atelectatic changes, poor inspiratory effort, widened medisatinum as seen before. 10/17/16 13:29 10/17/16 13:34 10/17/16 13:42 10/17/16 14:25 10/17/16 14:48 <Chel Castanon - Last Filed: 10/17/16 14:47> - Medical Decision Making 10/17/16 15:11 Pt presents to the ED complaining of increasing cough. As per family, cough has been persistent since his stroke, but worse over the past three days. Story is concerning for aspiration. Patient is tachypneic and mildly hypoxic. Labs show elevated bilirubin and transaminitis. Concern for biliary obstruction. Patient and family report a history of worsening abdominal distention but deny abdominal pain. will check RUQ US, admit to medicine for continued management. Will consider CT abdomen pelvis. <Jesica Lenz - Last Filed: 10/17/16 15:16> *DC/Admit/Observation/Transfer - Discharge Dispostion Admit: Yes <Chel Castanon - Last Filed: 10/17/16 14:47> <Jesica Lenz - Last Filed: 10/17/16 15:16> Diagnosis at time of Disposition: Transaminitis, Hyperbilirubinemia, Respiratory distress
[2016-10-17] MEDS ORDERED: SODIUM CHLORIDE 500 ML IV STA (11:41)
[2016-10-17 12:12] LABS: MCH 31.7 pg (25.7-33.7); MCHC 34.9 g/dl (32.0-35.9); MEAN CELL VOLUME 90.8 fl (80-96); MEAN PLT VOLUME 8.8 fl (7.5-11.1); PLATELET COUNT 195 K/MM3 (134-434); RDW 14.6 % (11.9-15.9); WHITE BLOOD COUNT 9.7 K/mm3 (4.0-10.0)
[2016-10-17 12:40] LABS: ALBUMIN 2.8 g/dl (3.4-5.0); ANION GAP 11 (8-16); CALCIUM 8.7 mg/dL (8.5-10.1); CO2 28 mmol/L (21-32); CREATININE 1.1 mg/dL (0.7-1.3); GLUCOSE,RANDOM 260 mg/dL (74-106); TOT PROT 7.4 g/dl (6.4-8.2)
[2016-10-17 12:43] LABS: ALK PHOS 199 U/L (45-117); TROPONIN I 0.03 ng/ml (0.00-0.05)
[2016-10-17 12:45] LABS: SGPT/ALT 525 U/L (12-78)
[2016-10-17 12:46] LABS: SGOT/AST 438 U/L (15-37)
[2016-10-17 12:49] LABS: PLATELET ESTIMATE ADEQUATE (NORMAL)
--- NOTE | 2016-10-17 14:52 | HP ---
CHIEF COMPLAINT: PCP: Not in area HISTORY OF PRESENT ILLNESS: The patient is a 76 year old male with a significant past medical history of hypertension, hyperlipidemia, type two diabetes, suspected COPD, ? CHF, prior ischemic CVA, chronic dysphagia (s/p trach removal), who presented to the ED with an increase in his chronic cough, increasing generalized weakness and was found to have painless hyperbilirubinemia with a transaminitis. He and his family reports cough since tracheostomy removal but that the cough has increased in past 3 days and has become productive of a yellow sputum. He denies fever, chills, chest pain, orthopnea, palpitations. ER course was notable for: (1) Official US pending PAST MEDICAL HISTORY: As above Smoking: No Alcohol: No Drugs: No Family History: Allergies No Known Allergies Allergy (Verified 10/17/16 11:43) HOME MEDICATIONS: Home Medications Medication Instructions Recorded Amlodipine Besylate 10 mg PO DAILY 12/10/15 Aspirin [ASA -] 81 mg PO DAILY 12/10/15 Atorvastatin Ca [Lipitor] 10 mg PO DAILY 12/10/15 Escitalopram Oxalate [Lexapro -] 10 mg PO DAILY 12/10/15 Furosemide [Lasix -] 40 mg PO DAILY 12/10/15 Gabapentin 300 mg PO DAILY 12/10/15 Insulin Detemir [Levemir Flextouch] 30 unit SQ HS 12/10/15 Insulin Detemir [Levemir Flextouch] 45 unit SQ AM 12/10/15 Potassium Chloride [Klor-Con M20] 20 meq PO BID 12/10/15 Repaglinide 1 mg PO DAILY 12/10/15 Nebulizer/Compressor [Comp-Air 1 each MC Q8H PRN #1 each 12/11/15 Elite Comp Nebulizer] Albuterol 0.083% Nebulizer Bethanie 1 neb NEB Q8H PRN 01/12/16 [Ventolin 0.083% Nebulizer Soln -] Collagenase Clostridium Hist. 1 applic TP DAILY #90 applic 01/12/16 [Santyl -] Azithromycin 250 mg PO DAILY #4 tablet 05/31/16 Guaifenesin [Mucinex -] 600 mg PO BID tablet.er 05/31/16 Prednisone 10 mg PO DAILY #30 tablet 05/31/16 REVIEW OF SYSTEMS CONSTITUTIONAL: Present: generalized weakness, malaise, loss of appetite Absent: fever, chills, diaphoresis, weight change HEENT: Absent: rhinorrhea, nasal congestion, throat pain, throat swelling, difficulty swallowing, mouth swelling, ear pain, eye pain, visual changes CARDIOVASCULAR: Absent: chest pain, syncope, palpitations, irregular heart rate, lightheadedness , peripheral edema RESPIRATORY: Present: cough Absent: shortness of breath, dyspnea with exertion, orthopnea, wheezing, stridor , hemoptysis GASTROINTESTINAL: Absent: abdominal pain, abdominal distension, nausea, vomiting, diarrhea, constipation, melena, hematochezia GENITOURINARY: Absent: dysuria, frequency, urgency, hesitancy, hematuria, flank pain, genital pain MUSCULOSKELETAL: Absent: myalgia, arthralgia, joint swelling, back pain, neck pain SKIN: Absent: rash, itching, pallor HEMATOLOGIC/IMMUNOLOGIC: Absent: easy bleeding, easy bruising, lymphadenopathy, frequent infections ENDOCRINE: Absent: unexplained weight gain, unexplained weight loss, heat intolerance, cold intolerance NEUROLOGIC: Absent: headache, focal weakness or paresthesias, dizziness, unsteady gait, seizure, mental status changes, bladder or bowel incontinence PSYCHIATRIC: Absent: anxiety, depression, suicidal or homicidal ideation, hallucinations. PHYSICAL EXAMINATION GENERAL: Awake, alert, and fully oriented, in no acute distress. HEAD: Normal with no signs of trauma. EYES: Scleral icterus Pupils equal, round and reactive to light, extraocular movements intact, sclera anicteric, conjunctiva clear. No lid lag. EARS, NOSE, THROAT: Dry mucous membranes Ears normal, nares patent, oropharynx clear without exudates. NECK: Normal range of motion, supple without lymphadenopathy, JVD, or masses. LUNGS: Diffuse expiratory wheeze. Scattered crackles. No accessory muscle use. HEART: Regular rate and rhythm, normal S1 and S2 without murmur, rub or gallop. ABDOMEN: Soft, nontender, not distended, normoactive bowel sounds, no guarding, no rebound, no masses. No hepatomegaly or splenomegaly. MUSCULOSKELETAL: Normal range of motion at all joints. No bony deformities or tenderness. No CVA tenderness. UPPER EXTREMITIES: 2+ pulses, warm, well-perfused. No cyanosis. No clubbing. No peripheral edema. LOWER EXTREMITIES: 2+ pulses, warm, well-perfused. No calf tenderness. No peripheral edema. NEUROLOGICAL: Cranial nerves II-XII intact. No change in speech pattern, motor function or sensory function per pt and family. PSYCHIATRIC: Cooperative. Good eye contact. Appropriate mood and affect. SKIN: Warm, dry, normal turgor, no rashes or lesions noted, normal capillary refill. EKG: Normal simus rhythm at 98, left axis deviation, left anterior hemiblock, no acute ischemic changes CXR: poor quality film ASSESSMENT/PLAN: The patient is a 76 year old male with a significant past medical history and ED course as above who is being admitted to inpatient services for further evaluation and treatment of newly diagnosed hyperbilirubinemia and increase in his chronic cough. Official US is pending. -GI Hyperbilirubinemia, mixed, with direct predominance Transaminitis Mildly elevated alk phos Hypoalbuminemia Painless nature and hypoalbimunemia gives concern for malignancy Await US results He will likely need CT of abd/pelvis with IV contrast Acetominiphen level pending but he denies Tylenol use Will obtain Hepatitis panel Will consult GI -Pulmonary Chronic cough with acute exacerbation CXR was poor quality He is wheezing COPD exacerbation seems likely Will administer ATC duonebs, prn Albuterol and begin Solumedrol Will obtain CT chest to better define possible pulmonary pathology Will consult pulmonary DDx certtainly includes pulmonary malignancy given painless hyperbilirubinemia and suspected intra-abdominal malignancy Will obtain CT chest as above Dysphagia with resultant microaspiration is also a possibility Will obtain swallow evaluation Prior records indicate CHF but last TTE done in 2012 showed normal EF and no evidence of diastolic dysfunction Left sided CHF is a possibility Will obtain BNP and TTE ED has ordered CT head to ro new CVA Results pending -Cardiovascular Chronic HTN / Hyperlipidemia No obvious acute issues Will continue home meds BNP and TTE as above -Endocrine Slightly hyperglycemic Insulin sliding scale FEN Low Na diet Replete lytes prn Prophylaxis Eating Lovenox PT consult to avoid deconditioning Visit type - Emergency Visit Emergency Visit: Yes ED Registration Date: 10/17/16 Care time: The patient presented to the Emergency Department on the above date and was hospitalized for further evaluation of their emergent condition. - New Patient This patient is new to me today: Yes Date on this admission: 10/17/16 - Critical Care Critical Care patient: No
[2016-10-17 15:01] LABS: URINE APPEARANCE CLEAR; URINE BLOOD NEGATIVE (NEGATIVE); URINE COLOR AMBER; URINE GLUCOSE (UA) 3+ (NEGATIVE); URINE KETONE TRACE (NEGATIVE); URINE LEUK ESTERASE NEGATIVE (NEGATIVE); URINE NITRITE NEGATIVE (NEGATIVE); URINE UROBILINOGEN 4.0 E.U/dl E.U./dl (0.2-1.0)
[2016-10-17 15:03] LABS: URINE PROTEIN 1+ (NEGATIVE)
[2016-10-17 15:04] LABS: URINE RBC 6 /hpf (0-3); URINE WBC 1 /hpf (3-5)
[2016-10-17] MEDS ORDERED: ALBUTEROL SO4 0.083% IH SOL 2.5 MG/3 ML VIAL.NEB. NEB PRN (15:09)
[2016-10-17] MEDS ORDERED: methylPREDNISolone NA SUCC 125 MG/2 ML VIAL IVPB ONE (15:09)
[2016-10-17] MEDS ORDERED: IBUPROFEN 800 MG/8 ML IJ IVPB ONE ×2 (17:45→17:49)
[2016-10-17] MEDS: methylPREDNISolone NA SUCC 40 MG/1 ML VIAL IVPB SCH (19:15)
[2016-10-17] MEDS: INSULIN SLIDING SCALE (NOVOLOG) 1 VIAL SQ SCH ×2 (19:16→23:08)
[2016-10-17] MEDS: ALBUTEROL SO4 2.5/IPRATROPIUM 0.5 INH SOL 3 ML VIAL.NEB. NEB SCH (19:35)
--- NOTE | 2016-10-17 20:21 | EKG ---
Test Reason : Blood Pressure : / mmHG Vent. Rate : 100 BPM Atrial Rate : 100 BPM P-R Int : 178 ms QRS Dur : 094 ms QT Int : 340 ms P-R-T Axes : 060 -27 053 degrees QTc Int : 438 ms SINUS RHYTHM WITH MOBITZ I (WENCKEBACH) BLOCK , PREMATURE SUPRAVENTRICULAR COMPLEXES LEFTWARD AXIS ST ELEVATION, CONSIDER EARLY REPOLARIZATION, PERICARDITIS, OR INJURY WHEN COMPARED WITH ECG OF 28-MAY-2016 13:33, NO SIGNIFICANT CHANGE WAS FOUND Reconfirmed by LOURDES AGUILAR MD ([id number]) on 10/17/2016 8:26:22 PM Referred By: Confirmed By:LOURDES AGUILAR MD
[2016-10-17] MEDS: guaiFENesin 600 MG TABLET.ER (FP) PO SCH (22:58)
[2016-10-17] MEDS: POTASSIUM CHLORIDE TABS 20 MEQ TABLET.ER (FP) PO SCH (22:58)
[2016-10-18] MEDS: ALBUTEROL SO4 2.5/IPRATROPIUM 0.5 INH SOL 3 ML VIAL.NEB. NEB SCH ×5 (00:10→23:42)
[2016-10-18] MEDS: methylPREDNISolone NA SUCC 40 MG/1 ML VIAL IVPB SCH ×3 (02:54→21:16)
[2016-10-18] MEDS: ASPIRIN 81 MG CHEWABLE TABLETS PO SCH ×2 (04:04→10:53)
[2016-10-18] MEDS: ESCITALOPRAM OXALATE 10 MG TABLET (FP) PO SCH ×2 (04:04→10:53)
[2016-10-18] MEDS: FUROSEMIDE 40 MG TABLET (FP) PO SCH ×2 (04:04→10:53)
[2016-10-18] MEDS: ATORVASTATIN CA 10 MG TABLET (FP) PO SCH ×2 (04:04→10:53)
[2016-10-18] MEDS: amLODIPine BESYLATE 10 MG TABLET (FP) PO SCH ×2 (04:05→10:53)
[2016-10-18] MEDS: GABAPENTIN 300 MG CAPSULE (FP) PO SCH ×2 (04:05→10:53)
[2016-10-18] MEDS: REPAGLINIDE 1 MG TABLET PO SCH ×2 (04:05→10:56)
[2016-10-18 05:50] VITALS: BMI 36.8
[2016-10-18] MEDS ORDERED: PT OWN MED DRAWER 7, Y5N ONE (06:08)
[2016-10-18] MEDS: INSULIN SLIDING SCALE (NOVOLOG) 1 VIAL SQ SCH ×4 (06:30→21:15)
[2016-10-18 07:24] LABS: BASOPHIL 0.2 % (0-2.0); EOSINOPHIL 0.1 % (0-4.5); MCH 31.6 pg (25.7-33.7); MEAN CELL VOLUME 90.4 fl (80-96); MEAN PLT VOLUME 8.7 fl (7.5-11.1); NEUTROPHILS 84.8 % (42.8-82.8); PLATELET COUNT 211 K/MM3 (134-434); WHITE BLOOD COUNT 9.6 K/mm3 (4.0-10.0)
[2016-10-18 07:57] LABS: INR 1.07 (0.82-1.09); PROTHROMBIN TIME (PATIENT) 11.8 SEC (9.98-11.88)
[2016-10-18 08:00] LABS: ACTIVATED PTT 29.5 SECONDS (26.9-34.4)
[2016-10-18 08:07] LABS: ALBUMIN 2.6 g/dl (3.4-5.0); ALK PHOS 202 U/L (45-117); ANION GAP 11 (8-16); BILIRUBIN,TOTAL 5.1 mg/dL (0.2-1.0); CALCIUM 8.9 mg/dL (8.5-10.1); CO2 25 mmol/L (21-32); CREATININE 0.8 mg/dL (0.7-1.3); GLUCOSE,RANDOM 254 mg/dL (74-106); PHOSPHOROUS 3.2 mg/dL (2.5-4.9); SGOT/AST 392 U/L (15-37); TOT PROT 7.1 g/dl (6.4-8.2)
[2016-10-18 08:39] LABS: SGPT/ALT 561 U/L (12-78)
[2016-10-18] MEDS: POTASSIUM CHLORIDE TABS 20 MEQ TABLET.ER (FP) PO SCH (10:53)
[2016-10-18] MEDS: guaiFENesin 600 MG TABLET.ER (FP) PO SCH ×2 (10:53→21:14)
[2016-10-18] MEDS: ENOXAPARIN NA (PORCINE) 40 MG/0.4 ML DISP.SYRIN SQ SCH (12:24)
--- NOTE | 2016-10-18 12:33 | PN ---
Progress Note (short form) - Note Progress Note: PULMONARY CONSULTATION DICTATED 10/18/16 IMP COUGH ,CONGESTION ?ASPIRATION RLL INFILTRATE/ATELECTASIS HYPERBILIRUBINEMIA ELEVATED LFTS ASCENDING AORTIC ANEURYSM S/P CVA HTN NIDDM PLAN INHALED BRONCHODILATORS O2 ASPIRATION PRECAUTIONS ANTIBIOTICS SWALLOWING EVALUATION GI EVALUATION HEPATITIS PROFILE DR MIGUEL Problem List - Problems (1) Cough Code(s): R05 - COUGH (2) Diabetes Code(s): E11.9 - TYPE 2 DIABETES MELLITUS WITHOUT COMPLICATIONS (3) Hyperbilirubinemia Code(s): E80.6 - OTHER DISORDERS OF BILIRUBIN METABOLISM (4) Hyperlipidemia Code(s): E78.5 - HYPERLIPIDEMIA, UNSPECIFIED (5) Hypertension Code(s): I10 - ESSENTIAL (PRIMARY) HYPERTENSION (6) Pneumonia Code(s): J18.9 - PNEUMONIA, UNSPECIFIED ORGANISM Qualifiers: Pneumonia type: due to unspecified organism Laterality: right Lung location: lower lobe of lung Qualified Code(s): J18.9 - Pneumonia, unspecified organism (7) Respiratory distress Code(s): R06.00 - DYSPNEA, UNSPECIFIED (8) Transaminitis Code(s): R74.0 - NONSPEC ELEV OF LEVELS OF TRANSAMNS & LACTIC ACID DEHYDRGNSE (9) H/O: CVA (cerebrovascular accident) Code(s): Z86.73 - PRSNL HX OF TIA (TIA), AND CEREB INFRC W/O RESID DEFICITS
--- NOTE | 2016-10-18 12:47 | CONSULT ---
Admitting History and Physical - Primary Care Physician PCP: Alyssia Ambriz - Admission History of Present Illness: Per admission:"HISTORY OF PRESENT ILLNESS: The patient is a 76 year old male with a significant past medical history of hypertension, hyperlipidemia, type two diabetes, suspected COPD, ? CHF, prior ischemic CVA, chronic dysphagia (s/p trach removal), who presented to the ED with an increase in his chronic cough, increasing generalized weakness and was found to have painless hyperbilirubinemia with a transaminitis. He and his family reports cough since tracheostomy removal but that the cough has increased in past 3 days and has become productive of a yellow sputum. He denies fever, chills, chest pain, orthopnea, palpitations." Pulmonary:IMP "COUGH ,CONGESTION ?ASPIRATION RLL INFILTRATE/ATELECTASIS HYPERBILIRUBINEMIA ELEVATED LFTS ASCENDING AORTIC ANEURYSM S/P CVA HTN NIDDM" - Past Medical History [employer] RELATIONS: Yes: CVA - Smoking History Smoking history: Former smoker Have you smoked in the past 12 months: No Aproximately how many cigarettes per day: 0 If you are a former smoker, when did you quit?: 6 years ago - Alcohol/Substance Use Hx Alcohol Use: No History - Admission Reason For Visit: TRANSAMINITIS HYPERBILIRUBNEMIA - Diagnostics Modified Barium Swallow: Report Reviewed (2013 (-)) - General Mental Status: Alert and Oriented, Awake and Alert, Able to Follow Commands Attention: Intact Ability to Follow Directions: Good Head/Neck Control: WFL - Hearing Hearing: Functional Hearing: Normal Speech Evaluation - Communication Primary Language: CYMRAES Communication: Yes: Within Normal Limits Oral Expression Ability: Yes: No Impairment - Speech Production Able to Make Needs Known: Yes: WNL Intelligibility: Yes: WNL - Speech Characteristics Voice Loudness: Normal Voice Pitch: Yes: Normal Voice Phonatory-based Quality: Yes: Normal Speech Pattern: Normal Speech Clarity: < 100% Nasal Resonance: Normal Articulation: Yes: Precise, Imprecise Rate of Speech: Intact - Language/Auditory Comprehension Follows: Yes: 1 Stage Simple Commands - Language/Verbal Expression Able to Respond to Simple Queries: Yes: WNL Able to Communicate Wants and Needs: Yes: WNL Functional Communication Status: Yes: WNL - Swallow Evaluation/Bedside Assessment Current Nutritional Intake: Regular, Thin Liquids, Other (pt c/o food too hard to chew/edentulous) Dentition: Yes: Edentulous Jaw Position: Open at Rest Lingual Movement: Deviates Right Chewing: Impaired A-P Transit: WFL Timing of Swallow: Delayed Coughing/Throat Clear: Yes (thin) Recommendations - Speech Evaluation, Impression/Plan Impression: pt c/o food too hard to chew/edentulous. Denies dysphagia but responsive hard cough while drinking water. - Dysphagia Impressions/Plan Swallowing Skills: Impaired Dysphagia Impressions: Suspect Aspiration *Silent aspiration: cannot be R/O at bedside Recommendations: Modified Barium Swallow - Recommendations Diet Consistency: Dysphagia Minced Medication Administration: Crushed with applesauce Liquids: [place] Thick
[2016-10-18] MEDS: CEFTRIAXONE 50 ML IVPB SCH (14:08)
--- NOTE | 2016-10-18 14:28 | PN ---
Physical Exam: SUBJECTIVE: Patient seen and examined. He is oob to chair eating. He said his sob was hurting his chest and abdomen; duration ~5 days OBJECTIVE: Vital Signs Period Temp Pulse Resp BP Sys/Pham Pulse Ox Last 24 Hr 98.6 F-100.1 F 71-88 20-24 131-168/80-93 95-95 PE Neuro: alert, awake, cn 2-12intact, RLE 4/5 motor HEENT: poor dentition Pulm: r base diminished, L clear CV: s1 s2 rrr no mrg Abd: soft, mild tenderness w/ deep palpation Ext: trace b/l LE edema CBCD WBC 9.6 K/mm3 (4.0-10.0) 10/18/16 06:35 RBC 4.41 M/mm3 (4.00-5.60) 10/18/16 06:35 Hgb 13.9 GM/dL (11.7-16.9) 10/18/16 06:35 Hct 39.9 % (35.4-49) 10/18/16 06:35 MCV 90.4 fl (80-96) 10/18/16 06:35 MCHC 35.0 g/dl (32.0-35.9) 10/18/16 06:35 RDW 15.0 % (11.9-15.9) 10/18/16 06:35 Plt Count 211 K/MM3 (134-434) 10/18/16 06:35 MPV 8.7 fl (7.5-11.1) 10/18/16 06:35 CMP Sodium 137 mmol/L (136-145) 10/18/16 06:35 Potassium 4.2 mmol/L (3.5-5.1) 10/18/16 06:35 Chloride 101 mmol/L (98-107) 10/18/16 06:35 Carbon Dioxide 25 mmol/L (21-32) 10/18/16 06:35 Anion Gap 11 (8-16) 10/18/16 06:35 BUN 10 mg/dL (7-18) D 10/18/16 06:35 Creatinine 0.8 mg/dL (0.7-1.3) D 10/18/16 06:35 Creat Clearance w eGFR > 60 (>60) 10/18/16 06:35 Calcium 8.9 mg/dL (8.5-10.1) 10/18/16 06:35 Total Bilirubin 5.1 mg/dL (0.2-1.0) H D 10/18/16 06:35 AST 392 U/L (15-37) H 10/18/16 06:35 ALT 561 U/L (12-78) H 10/18/16 06:35 Alkaline Phosphatase 202 U/L (45-117) H 10/18/16 06:35 Total Protein 7.1 g/dl (6.4-8.2) 10/18/16 06:35 Albumin 2.6 g/dl (3.4-5.0) L 10/18/16 06:35 10/17/16 10/17/16 20:55 20:55 B-Natriuretic Peptide 156.31 H Hepatitis A IgM Ab Pending Hep Bs Antigen Pending Hep B Core IgM Ab Pending Hepatitis C Ab (EIA) Pending Active Medications Generic Name Dose Route Start Last Admin Trade Name Freq PRN Reason Stop Dose Admin Albuterol Sulfate 1 amp 10/17/16 15:09 Ventolin 0.083% Nebulizer Soln - NEB Q4H PRN SHORT OF BREATH/WHEEZING Albuterol/Ipratropium 1 amp 10/17/16 18:00 10/18/16 06:45 Duoneb - NEB 1 amp QIDR ARMANDO Administration Amlodipine Besylate 10 mg 10/17/16 15:15 10/18/16 10:53 Norvasc - PO 10 mg DAILY ARMANDO Administration Aspirin 81 mg 10/17/16 15:15 10/18/16 10:53 Asa - PO 81 mg DAILY ARMANDO Administration Atorvastatin Calcium 10 mg 10/17/16 15:15 10/18/16 10:53 Lipitor - PO 10 mg DAILY ARMANDO Administration Enoxaparin Sodium 40 mg 10/18/16 10:00 10/18/16 12:24 Lovenox - SQ 40 mg DAILY ARMANDO Administration Escitalopram Oxalate 10 mg 10/17/16 15:15 10/18/16 10:53 Lexapro - PO 10 mg DAILY ARMANDO Administration Furosemide 40 mg 10/17/16 15:15 10/18/16 10:53 Lasix - PO 40 mg DAILY ARMANDO Administration Gabapentin 300 mg 10/17/16 15:15 10/18/16 10:53 Neurontin - PO 300 mg DAILY ARMANDO Administration Guaifenesin 600 mg 10/17/16 22:00 10/18/16 10:53 Mucinex - PO 600 mg BID ARMANDO Administration Ceftriaxone Sodium 50 mls @ 100 mls/hr 10/18/16 12:45 10/18/16 14:08 Rocephin 1gm Ivpb (Pre-Docked) IVPB 100 mls/hr DAILY ARMANDO Administration Insulin Aspart 0 vial 10/17/16 16:30 10/18/16 12:25 Novolog Vial Sliding Scale - SQ 8 units ACHS ARMANDO Administration Protocol Methylprednisolone Sodium Succinate 40 mg 10/17/16 18:00 10/18/16 10:53 Solu-Medrol - IVPB 40 mg Q8H-IV ARMANDO Administration Potassium Chloride 20 meq 10/17/16 22:00 10/18/16 10:53 K-Dur - PO 20 meq BID ARMANDO Administration Repaglinide 1 mg 10/17/16 15:15 10/18/16 10:56 Prandin - PO 1 mg DAILY@0700 ARMANDO Administration Imaging: - 10/17 CT chest: abdominal aorta with soft and calcified plaque causing no critical lesions, tortuosity of iliofemoral systems widely patent - 2012 ECHO: normal EF, no evidence of diastolic dysfunction - 10/[address]: numerous chronic infarct involving posterior cranial fossa Assessment: 76 year old male with a significant past medical history of HTN, HLD , DM II, COPD, ? CHF, prior ischemic CVA, chronic dysphagia (s/p trach removal) , admitted with increased dyspnea and weakness, found to have painless hyperbilirubinemia with a transaminitis. Plan: 1. Hyperbilirubinemia, Transaminitis - CTAP reviewed, questionable liver lesion noted, US unable to visualize CBD - Will obtain MRCP with Abd MRI - Hep panel pending 2. Hypoalbuminemia - See above r/o liver malignancy - GI following 3. ? aspiration pna, with cough - CT chest wit b/l infiltrate/atelectaasis - Modified barium ordered - Started ceftriaxone (day 1) - Muscinex 600mg BID - Taper medrol 40mg BID - Duonebs q4 armando - Pulm following 4. HTN - Elevated this afternoon - Continue amlodipine 10mg daily - Will stop lasix - Start lisinopril 10mg daily (DM pt) 5. r/o CHF - BNP low - ECHO ordered 6. hx of CVA - Repeat head CT negative 7. DM II, uncontrolled - ISS, BGM ACHS - Hgba1c 05/2016 8.4 - Recheck a1c 8. DVT ppx - Lovenox sq Visit type - Emergency Visit Emergency Visit: Yes ED Registration Date: 10/17/16 Care time: The patient presented to the Emergency Department on the above date and was hospitalized for further evaluation of their emergent condition. - New Patient This patient is new to me today: Yes Date on this admission: 10/18/16 - Critical Care Critical Care patient: No
[2016-10-18] MEDS: LISINOPRIL 10 MG TABLET (FP) PO SCH (17:03)
--- NOTE | 2016-10-18 19:48 | CONS ---
DATE OF CONSULTATION: 10/18/2016 REFERRING PHYSICIAN: Luis Fernando Peña MD HISTORY: The patient is a 76-year-old black male with a past medical history of hypertension, hyperlipidemia, type 2 diabetes, suspected COPD, questionable CHF, history of ischemic CVA with left hemiparesis, chronic dysphagia status post tracheostomy removal 4 months ago admitted to [facility] with increasing cough, chest congestion, and generalized weakness of 4-days' duration. The patient was also noted on admission to have painless hyperbilirubinemia and transaminitis. According to the patient, has been having a cough for the past 3 days productive of yellowish sputum. Denied any fever, chills, nausea, vomiting, or diaphoresis. Denies orthopnea. Apparently, he had a swallowing evaluation in the past, which revealed no evidence of aspiration. The patient is a nonsmoker. 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 On admission, he underwent CT scan of the chest as well as abdomen and pelvis, which revealed no evidence of acute cholangitis. There was evidence of an atelectasis and/or infiltrates in both bases. PAST MEDICAL HISTORY: Again, includes CVA with hemiplegia, hypertension, questionable CHF, questionable COPD, chronic dysphagia status post tracheostomy removal, hyperlipidemia, type 2 diabetes. SOCIAL HISTORY: Nonsmoker. No occupational exposures. CURRENT MEDICATIONS: Include Solu-Medrol, Lovenox, Neurontin, Lexapro, albuterol, DuoNeb, Norvasc, Mucinex, Lipitor, Lasix, aspirin, Prandin, and K-Dur. PHYSICAL EXAMINATION: General: The patient is a well-developed, well-nourished black male awake and alert. He is comfortable in no acute distress. Vital Signs: He is currently afebrile. Blood pressure 168/92, respiratory rate 20, O2 saturation 95% on 3 L. HEENT: Normocephalic and atraumatic. Neck: Supple. Heart: Regular S1, S2. Chest: He has got a rhonchi bilaterally. Abdomen: Soft. Bowel sounds positive. Extremities: No cyanosis or edema. LABORATORIES: WBC 9.6, hemoglobin 13.9, hematocrit 39.9, platelet count 211,000. INR 1.07, BUN 10, creatinine 0.8. Chest CT: Small bibasilar atelectatic changes with questionable right lower lobe infiltrate. IMPRESSION: 1. Cough, chest congestion, possible recurrent aspiration. 2. Right basilar infiltrate versus atelectasis. 3. Status post cerebrovascular accident. 4. History of hypertension. 5. Elq-pwyccfu-pgxeugzuo diabetes mellitus. 6. Questionable chronic obstructive pulmonary disease. PLAN: Continue inhaled bronchodilators, supplemental O2, antibiotics. Chest PT. Will send him for a follow up swallowing evaluation. Aspiration precautions. BLAIR MIGUEL M.D. [id number]
[2016-10-18] MEDS: INSULIN DETEMIR 100 UNITS/ML MDV SQ SCH (21:13)
[2016-10-19] MEDS: guaiFENesin/CODEINE 5 ML UNIT-DOSE CUPS PO PRN (03:29)
[2016-10-19] MEDS ORDERED: PT OWN MED DRAWER 7, Y5N ONE ×2 (06:16→07:10)
[2016-10-19] MEDS: INSULIN DETEMIR 100 UNITS/ML MDV SQ SCH ×2 (06:21→21:30)
[2016-10-19] MEDS: INSULIN SLIDING SCALE (NOVOLOG) 1 VIAL SQ SCH ×4 (06:24→21:32)
[2016-10-19] MEDS: REPAGLINIDE 1 MG TABLET PO SCH (06:26)
[2016-10-19] MEDS: ALBUTEROL SO4 2.5/IPRATROPIUM 0.5 INH SOL 3 ML VIAL.NEB. NEB SCH ×5 (06:49→23:25)
[2016-10-19] MEDS ORDERED: INSULIN DETEMIR 100 UNITS/ML MDV SQ ONE (07:09)
[2016-10-19] MEDS ORDERED: INSULIN (NOVOLOG) ASPART 100 UNITS/ML 10ML VIAL ONE ×2 (07:09→20:24)
[2016-10-19 08:15] LABS: ALBUMIN 2.7 g/dl (3.4-5.0); ANION GAP 8 (8-16); CALCIUM 8.6 mg/dL (8.5-10.1); CO2 29 mmol/L (21-32); GLUCOSE,RANDOM 230 mg/dL (74-106); SGOT/AST 305 U/L (15-37)
[2016-10-19 08:18] LABS: ALK PHOS 173 U/L (45-117); BILIRUBIN,DIRECT 1.4 mg/dL (0.0-0.2); BILIRUBIN,TOTAL 2.1 mg/dL (0.2-1.0); CREATININE 0.8 mg/dL (0.7-1.3); TOT PROT 7.1 g/dl (6.4-8.2)
[2016-10-19 08:38] LABS: SGPT/ALT 618 U/L (12-78)
[2016-10-19] MEDS: ENOXAPARIN NA (PORCINE) 40 MG/0.4 ML DISP.SYRIN SQ SCH (09:50)
[2016-10-19] MEDS: GABAPENTIN 300 MG CAPSULE (FP) PO SCH (09:50)
[2016-10-19] MEDS: guaiFENesin 600 MG TABLET.ER (FP) PO SCH ×2 (09:50→21:31)
[2016-10-19] MEDS: amLODIPine BESYLATE 10 MG TABLET (FP) PO SCH (09:50)
[2016-10-19] MEDS: ASPIRIN 81 MG CHEWABLE TABLETS PO SCH (09:50)
[2016-10-19] MEDS: ESCITALOPRAM OXALATE 10 MG TABLET (FP) PO SCH (09:50)
[2016-10-19] MEDS: LISINOPRIL 10 MG TABLET (FP) PO SCH (09:50)
[2016-10-19] MEDS: ATORVASTATIN CA 10 MG TABLET (FP) PO SCH (09:50)
[2016-10-19] MEDS: CEFTRIAXONE 50 ML IVPB SCH (09:50)
[2016-10-19] MEDS: methylPREDNISolone NA SUCC 40 MG/1 ML VIAL IVPB SCH ×2 (11:09→21:33)
--- NOTE | 2016-10-19 11:55 | PN ---
Progress Note (short form) - Note Progress Note: Breathing feels OK today. Some dry cough. Indicated RLQ discomfort. ECHO being performed at bedside. Pending MRI. Intake & Output 10/16/16 10/17/16 10/18/16 10/19/16 23:59 23:59 23:59 23:59 Intake Total 370 120 Output Total 1200 600 150 Balance -1200 -230 -30 Weight 242 lb 11.2 oz 242 lb 11.2 oz Last Vital Signs Temp Pulse Resp BP Pulse Ox 97.6 F 73 20 141/73 95 10/19/16 11:00 10/19/16 11:00 10/19/16 11:00 10/19/16 11:00 10/18/16 21:00 Active Medications Albuterol Sulfate (Ventolin 0.083% Nebulizer Soln -) 1 amp NEB Q4H PRN PRN Reason: SHORT OF BREATH/WHEEZING Albuterol/Ipratropium (Duoneb -) 1 amp NEB QIDR [facility] Last Admin: 10/19/16 06:49 Dose: 1 amp Amlodipine Besylate (Norvasc -) 10 mg PO DAILY [facility] Last Admin: 10/19/16 09:50 Dose: 10 mg Aspirin (Asa -) 81 mg PO DAILY [facility] Last Admin: 10/19/16 09:50 Dose: 81 mg Enoxaparin Sodium (Lovenox -) 40 mg SQ DAILY [facility] Last Admin: 10/19/16 09:50 Dose: 40 mg Escitalopram Oxalate (Lexapro -) 10 mg PO DAILY [facility] Last Admin: 10/19/16 09:50 Dose: 10 mg Guaifenesin (Mucinex -) 600 mg PO BID [facility] Last Admin: 10/19/16 09:50 Dose: 600 mg Guaifenesin/Codeine Phosphate (Robitussin Ac -) 10 ml PO HS PRN PRN Reason: COUGH Last Admin: 10/19/16 03:29 Dose: 10 ml Ceftriaxone Sodium (Rocephin 1gm Ivpb (Pre-Docked)) 50 mls @ 100 mls/hr IVPB DAILY [facility] Last Admin: 10/19/16 09:50 Dose: 100 mls/hr Insulin Aspart (Novolog Vial Sliding Scale -) 0 vial SQ ACHS FLORIN PRN Reason: Protocol Last Admin: 10/19/16 11:22 Dose: 6 units Insulin Detemir (Levemir Vial) 30 units SQ HS [facility] Last Admin: 10/18/16 21:13 Dose: 30 units Insulin Detemir (Levemir Vial) 45 units SQ AM [facility] Last Admin: 10/19/16 06:21 Dose: 45 units Lisinopril (Prinivil) 10 mg PO DAILY [facility] Last Admin: 10/19/16 09:50 Dose: 10 mg Methylprednisolone Sodium Succinate (Solu-Medrol -) 40 mg IVPB BID [facility] Last Admin: 10/19/16 11:09 Dose: 40 mg Repaglinide (Prandin -) 1 mg PO DAILY@0700 [facility] Gen: NAD HEENT: (-) Icterus Pulm: diminished BS at the bases CV: S1S12, regular Abd: soft, obese, (+) Mild RLQ tenderness w/ deep palpation Ext: (+) trace LE edema Neuro: Awake and alert, Non-focal Laboratory Results - last 24 hr 10/17/16 10/18/16 10/18/16 20:55 12:07 17:01 Sodium Potassium Chloride Carbon Dioxide Anion Gap BUN Creatinine Creat Clearance w eGFR POC Glucometer 347 383 Random Glucose Calcium Total Bilirubin Direct Bilirubin AST ALT Alkaline Phosphatase Total Protein Albumin Hepatitis A IgM Ab Negative Hep Bs Antigen Negative Hep B Core IgM Ab Negative Hepatitis C Ab (EIA) <0.1 10/18/16 10/19/16 10/19/16 21:11 06:20 07:00 Sodium 136 Potassium 4.0 Chloride 99 Carbon Dioxide 29 Anion Gap 8 BUN 15 D Creatinine 0.8 Creat Clearance w eGFR > 60 POC Glucometer 305 238 Random Glucose 230 H Calcium 8.6 Total Bilirubin 2.1 H D Direct Bilirubin 1.4 H D AST 305 H D ALT 618 H Alkaline Phosphatase 173 H Total Protein 7.1 Albumin 2.7 L Hepatitis A IgM Ab Hep Bs Antigen Hep B Core IgM Ab Hepatitis C Ab (EIA) 10/19/16 11:18 Sodium Potassium Chloride Carbon Dioxide Anion Gap BUN Creatinine Creat Clearance w eGFR POC Glucometer 260 Random Glucose Calcium Total Bilirubin Direct Bilirubin AST ALT Alkaline Phosphatase Total Protein Albumin Hepatitis A IgM Ab Hep Bs Antigen Hep B Core IgM Ab Hepatitis C Ab (EIA) Problem List - Problems (1) Cough Code(s): R05 - COUGH (2) Diabetes Code(s): E11.9 - TYPE 2 DIABETES MELLITUS WITHOUT COMPLICATIONS (3) Hyperbilirubinemia Code(s): E80.6 - OTHER DISORDERS OF BILIRUBIN METABOLISM (4) Hyperlipidemia Code(s): E78.5 - HYPERLIPIDEMIA, UNSPECIFIED (5) Hypertension Code(s): I10 - ESSENTIAL (PRIMARY) HYPERTENSION (6) Pneumonia Code(s): J18.9 - PNEUMONIA, UNSPECIFIED ORGANISM Qualifiers: Pneumonia type: due to unspecified organism Laterality: right Lung location: lower lobe of lung Qualified Code(s): J18.9 - Pneumonia, unspecified organism (7) Respiratory distress Code(s): R06.00 - DYSPNEA, UNSPECIFIED (8) Transaminitis Code(s): R74.0 - NONSPEC ELEV OF LEVELS OF TRANSAMNS & LACTIC ACID DEHYDRGNSE (9) H/O: CVA (cerebrovascular accident) Code(s): Z86.73 - PRSNL HX OF TIA (TIA), AND CEREB INFRC W/O RESID DEFICITS IMP COUGH ,CONGESTION ?ASPIRATION RLL INFILTRATE/ATELECTASIS HYPERBILIRUBINEMIA ELEVATED LFTS ASCENDING AORTIC ANEURYSM S/P CVA HTN NIDDM PLAN INHALED BRONCHODILATORS O2 ASPIRATION PRECAUTIONS ANTIBIOTICS SWALLOWING EVALUATION IN PROGRESS PENDING MRI DR BURR
--- NOTE | 2016-10-19 15:25 | CON.GI ---
Consult Consult Specialty:: gastroenterology Referred by:: hospitalist - History of Present Illness History of Present Illness: 76 y/ male with PMH CVA 5years ago, chronic cough since his stroke was asked to be seen becasue of elevated liver enzymes. He denies nausea, vomiting and abdominal pain. 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 - Alcohol/Substance Use Hx Alcohol Use: No - Smoking History Smoking history: Former smoker Have you smoked in the past 12 months: No Aproximately how many cigarettes per day: 0 If you are a former smoker, when did you quit?: 6 years ago Home Medications - Allergies Allergies/Adverse Reactions: Allergies Allergy/AdvReac Type Severity Reaction Status Date / Time No Known Allergies Allergy Verified 10/17/16 11:43 - Home Medications Home Medications: Ambulatory Orders Amlodipine Besylate 10 mg PO DAILY 12/10/15 Aspirin [ASA -] 81 mg PO DAILY 12/10/15 Atorvastatin Ca [Lipitor] 10 mg PO DAILY 12/10/15 Escitalopram Oxalate [Lexapro -] 10 mg PO DAILY 12/10/15 Furosemide [Lasix -] 40 mg PO DAILY 12/10/15 Gabapentin 300 mg PO DAILY 12/10/15 Insulin Detemir [Levemir Flextouch] 30 unit SQ HS 12/10/15 Insulin Detemir [Levemir Flextouch] 45 unit SQ AM 12/10/15 Potassium Chloride [Klor-Con M20] 20 meq PO BID 12/10/15 Repaglinide 1 mg PO DAILY 12/10/15 Nebulizer/Compressor [Comp-Air Elite Comp Nebulizer] 1 each MC Q8H PRN #1 each 12/11/15 Albuterol 0.083% Nebulizer Bethanie [Ventolin 0.083% Nebulizer Soln -] 1 neb NEB Q8H PRN 01/12/16 Collagenase Clostridium Hist. [Santyl -] 1 applic TP DAILY #90 applic 01/12/16 Azithromycin 250 mg PO DAILY #4 tablet 05/31/16 Guaifenesin [Mucinex -] 600 mg PO BID tablet.er 05/31/16 Prednisone 10 mg PO DAILY #30 tablet 05/31/16 Physical Exam-GI Vital Signs: Vital Signs Temperature 98.8 F 10/19/16 14:21 Pulse Rate 78 10/19/16 14:21 Respiratory Rate 19 10/19/16 14:21 Blood Pressure 141/83 10/19/16 14:21 O2 Sat by Pulse Oximetry (%) 95 10/18/16 21:00 Constitutional: Yes: Well Nourished Eyes: Yes: Conjunctiva Clear HENT: Yes: Atraumatic Neck: Yes: Supple Cardiovascular: Yes: Regular Rate and Rhythm Respiratory: Yes: CTA Bilaterally ...Palpate: Yes: Soft. 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
[2016-10-19 15:36] LABS: AMYLASE 45 U/L (25-115)
--- NOTE | 2016-10-19 16:31 | PN ---
Physical Exam: SUBJECTIVE: Patient seen and examined. He has some cough and abdominal pain OBJECTIVE: Vital Signs Period Temp Pulse Resp BP Sys/Pham Pulse Ox Last 24 Hr 97.6 F-98.8 F 68-119 18-20 124-150/70-83 95 PE Neuro: alert, awake, cn 2-12intact, RLE 4/5 motor Pulm: r base diminished, L clear + wet cough CV: s1 s2 rrr no mrg Abd: soft, epigastric tenderness Ext: trace b/l LE edema Laboratory Results - last 24 hr 10/17/16 10/18/16 10/18/16 20:55 06:35 06:35 Sodium 137 Potassium 4.2 Chloride 101 Carbon Dioxide 25 Anion Gap 11 BUN 10 D Creatinine 0.8 D Creat Clearance w eGFR > 60 POC Glucometer Random Glucose 254 H Calcium 8.9 Phosphorus 3.2 D Magnesium 2.0 Total Bilirubin 5.1 H D Direct Bilirubin AST 392 H ALT 561 H Alkaline Phosphatase 202 H Total Protein 7.1 Albumin 2.6 L Total Amylase 45 Cancelled Lipase 137 Cancelled Hepatitis A IgM Ab Negative Hep Bs Antigen Negative Hep B Core IgM Ab Negative Hepatitis C Ab (EIA) <0.1 10/19/16 10/19/16 07:00 11:18 Sodium 136 Potassium 4.0 Chloride 99 Carbon Dioxide 29 Anion Gap 8 BUN 15 D Creatinine 0.8 Creat Clearance w eGFR > 60 POC Glucometer 260 Random Glucose 230 H Calcium 8.6 Phosphorus Magnesium Total Bilirubin 2.1 H D Direct Bilirubin 1.4 H D AST 305 H D ALT 618 H Alkaline Phosphatase 173 H Total Protein 7.1 Albumin 2.7 L Total Amylase Lipase Hepatitis A IgM Ab Hep Bs Antigen Hep B Core IgM Ab Hepatitis C Ab (EIA) Active Medications Generic Name Dose Route Start Last Admin Trade Name Freq PRN Reason Stop Dose Admin Albuterol Sulfate 1 amp 10/17/16 15:09 Ventolin 0.083% Nebulizer Soln - NEB Q4H PRN SHORT OF BREATH/WHEEZING Albuterol/Ipratropium 1 amp 10/17/16 18:00 10/19/16 12:34 Duoneb - NEB 1 amp QIDR ARMANDO Administration Amlodipine Besylate 10 mg 10/17/16 15:15 10/19/16 09:50 Norvasc - PO 10 mg DAILY [facility] Administration Aspirin 81 mg 10/17/16 15:15 10/19/16 09:50 Asa - PO 81 mg DAILY [facility] Administration Enoxaparin Sodium 40 mg 10/18/16 10:00 10/19/16 09:50 Lovenox - SQ 40 mg DAILY [facility] Administration Escitalopram Oxalate 10 mg 10/17/16 15:15 10/19/16 09:50 Lexapro - PO 10 mg DAILY [facility] Administration Guaifenesin 600 mg 10/17/16 22:00 10/19/16 09:50 Mucinex - PO 600 mg BID ARMANDO Administration Guaifenesin/Codeine Phosphate 10 ml 10/19/16 03:00 10/19/16 03:29 Robitussin Ac - PO 10 ml HS PRN Administration COUGH Ceftriaxone Sodium 50 mls @ 100 mls/hr 10/18/16 12:45 10/19/16 09:50 Rocephin 1gm Ivpb (Pre-Docked) IVPB 100 mls/hr DAILY [facility] Administration Insulin Aspart 0 vial 10/17/16 16:30 10/19/16 11:22 Novolog Vial Sliding Scale - SQ 6 units ACHS ARMANDO Administration Protocol Insulin Detemir 30 units 10/18/16 22:00 10/18/16 21:13 Levemir Vial SQ 30 units HS [facility]O Administration Insulin Detemir 45 units 10/19/16 07:00 10/19/16 06:21 Levemir Vial SQ 45 units AM [facility] Administration Lisinopril 10 mg 10/18/16 16:30 10/19/16 09:50 Prinivil PO 10 mg DAILY [facility] Administration Methylprednisolone Sodium Succinate 40 mg 10/18/16 22:00 10/19/16 11:09 Solu-Medrol - IVPB 40 mg BID [facility]O Administration Repaglinide 1 mg 10/20/16 07:00 Prandin - PO DAILY@0700 [facility] Imaging: - 10/17 CT chest: abdominal aorta with soft and calcified plaque causing no critical lesions, tortuosity of iliofemoral systems widely patent - 2012 ECHO: normal EF, no evidence of diastolic dysfunction - 10/[address]: numerous chronic infarct involving posterior cranial fossa - CT chest wit b/l infiltrate/atelectasis Assessment: 76 year old male with a significant past medical history of HTN, HLD , DM II, COPD, ? CHF, prior ischemic CVA, chronic dysphagia (s/p trach removal) , admitted with increased dyspnea and weakness, found to have painless hyperbilirubinemia with a transaminitis. Plan: 1. Hyperbilirubinemia, Transaminitis - Likely due to medication, lipitor and gabapentin discontinued - MRCP with Abd MRI tonight eval liver lesion and CBD - Hep panel negative 2. Hypoalbuminemia - See above r/o liver malignancy vs hemangioma 3. ? aspiration pna, with cough - Start Dysphagia whole with nectar thick - Ceftriaxone (day 2) - Muscinex 600mg BID - Taper medrol tomorrow - Duonebs q4 armando - Pulm following 4. Diastolic disfunction CHF, grade 1 - ECHO normal lvl size function, impaired LV relaxation suggestive of diastolic dysfunction, RVSP 30-40mmhg, mild PulmHTN - Start Cardizem CD 120mg - Maintain lisinopril 5. HTN - BP stable today - Stop amlodipine - Cardizem CD 120mg start tomorrow - Continue lisinopril 10mg daily 6. hx of CVA - Repeat head CT negative 7. DM II, uncontrolled - ISS, BGM ACHS - Hgba1c 05/2016 8.4 - Recheck a1c 8. DVT ppx - Lovenox sq Visit type - Emergency Visit Emergency Visit: Yes ED Registration Date: 10/17/16 Care time: The patient presented to the Emergency Department on the above date and was hospitalized for further evaluation of their emergent condition. - New Patient This patient is new to me today: No - Critical Care Critical Care patient: No
[2016-10-20] MEDS ORDERED: PT OWN MED DRAWER 7, Y5N ONE ×2 (06:13→06:47)
[2016-10-20] MEDS: INSULIN DETEMIR 100 UNITS/ML MDV SQ SCH ×2 (06:16→21:38)
[2016-10-20] MEDS: REPAGLINIDE 0.5 MG TABLET (FP) PO SCH (06:18)
[2016-10-20] MEDS: INSULIN SLIDING SCALE (NOVOLOG) 1 VIAL SQ SCH ×4 (06:18→21:37)
[2016-10-20] MEDS: ALBUTEROL SO4 2.5/IPRATROPIUM 0.5 INH SOL 3 ML VIAL.NEB. NEB SCH ×3 (06:40→17:18)
[2016-10-20] MEDS ORDERED: INSULIN (NOVOLOG) ASPART 100 UNITS/ML 10ML VIAL ONE ×2 (06:46→21:16)
[2016-10-20 07:46] LABS: ALBUMIN 2.6 g/dl (3.4-5.0); ALK PHOS 150 U/L (45-117); ANION GAP 9 (8-16); BILIRUBIN,TOTAL 1.5 mg/dL (0.2-1.0); CALCIUM 8.6 mg/dL (8.5-10.1); CO2 32 mmol/L (21-32); CREATININE 0.7 mg/dL (0.7-1.3); GLUCOSE,RANDOM 187 mg/dL (74-106); SGOT/AST 207 U/L (15-37); TOT PROT 6.8 g/dl (6.4-8.2)
[2016-10-20 07:49] LABS: SGPT/ALT 579 U/L (12-78)
[2016-10-20] MEDS: ESCITALOPRAM OXALATE 10 MG TABLET (FP) PO SCH (09:39)
[2016-10-20] MEDS: ASPIRIN 81 MG CHEWABLE TABLETS PO SCH (09:39)
[2016-10-20] MEDS: guaiFENesin 600 MG TABLET.ER (FP) PO SCH ×2 (09:39→21:37)
[2016-10-20] MEDS: LISINOPRIL 10 MG TABLET (FP) PO SCH (09:39)
[2016-10-20] MEDS: CEFTRIAXONE 50 ML IVPB SCH (09:40)
[2016-10-20] MEDS: ENOXAPARIN NA (PORCINE) 40 MG/0.4 ML DISP.SYRIN SQ SCH (09:40)
[2016-10-20] MEDS: methylPREDNISolone NA SUCC 40 MG/1 ML VIAL IVPB SCH (10:28)
--- NOTE | 2016-10-20 13:09 | PN ---
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 Pt reports feeling better, less congested. mbs/Diet rec reviewed with pt/staff. Consider f/u by sp path at [place] for diet upgrade, when indicated.
--- NOTE | 2016-10-20 14:25 | PN ---
Physical Exam: SUBJECTIVE: Patient seen and examined. He says he is better, but still has abd pain. OBJECTIVE: Vital Signs Period Temp Pulse Resp BP Sys/Pham Pulse Ox Last 24 Hr 97.3 F-99 F 60-101 18-20 117-166/74-87 92-93 PE Neuro: alert, awake, cn 2-12intact, RLE 4/5 motor Pulm: bilateral rhonchi +cough CV: s1 s2 rrr no mrg Abd: soft, epigastric tenderness Ext: warm, no le edema MSK: R sided hemiparesis Laboratory Results - last 24 hr 10/18/16 10/19/16 10/19/16 06:35 16:30 21:30 Sodium 137 Potassium 4.2 Chloride 101 Carbon Dioxide 25 Anion Gap 11 BUN 10 D Creatinine 0.8 D Creat Clearance w eGFR > 60 POC Glucometer 171 294 Random Glucose 254 H Hemoglobin A1c % Calcium 8.9 Phosphorus 3.2 D Magnesium 2.0 Total Bilirubin 5.1 H D AST 392 H ALT 561 H Alkaline Phosphatase 202 H Total Protein 7.1 Albumin 2.6 L Total Amylase 45 Lipase 137 10/20/16 10/20/16 10/20/16 06:16 06:40 06:40 Sodium 140 Potassium 3.8 Chloride 99 Carbon Dioxide 32 Anion Gap 9 BUN 13 Creatinine 0.7 Creat Clearance w eGFR > 60 POC Glucometer 276 Random Glucose 187 H Hemoglobin A1c % 8.3 H D Calcium 8.6 Phosphorus Magnesium Total Bilirubin 1.5 H D AST 207 H D ALT 579 H Alkaline Phosphatase 150 H Total Protein 6.8 Albumin 2.6 L Total Amylase Lipase Generic Name Dose Route Start Last Admin Trade Name Brayan PRN Reason Stop Dose Admin Albuterol Sulfate 1 amp 10/17/16 15:09 Ventolin 0.083% Nebulizer Soln - NEB Q4H PRN SHORT OF BREATH/WHEEZING Albuterol/Ipratropium 1 amp 10/17/16 18:00 10/20/16 11:15 Duoneb - NEB 1 amp QIDR ARM[facility]O Administration Aspirin 81 mg 10/17/16 15:15 10/20/16 09:39 Asa - PO 81 mg DAILY [facility] Administration Diltiazem HCl 120 mg 10/20/16 10:00 10/20/16 09:39 Cardizem Cd - PO 120 mg DAILY [facility] Administration Enoxaparin Sodium 40 mg 10/18/16 10:00 10/20/16 09:40 Lovenox - SQ 40 mg DAILY [facility] Administration Escitalopram Oxalate 10 mg 10/17/16 15:15 10/20/16 09:39 Lexapro - PO 10 mg DAILY [facility] Administration Guaifenesin 600 mg 10/17/16 22:00 10/20/16 09:39 Mucinex - PO 600 mg BID [facility]O Administration Guaifenesin/Codeine Phosphate 10 ml 10/19/16 03:00 10/19/16 03:29 Robitussin Ac - PO 10 ml HS PRN Administration COUGH Ceftriaxone Sodium 50 mls @ 100 mls/hr 10/18/16 12:45 10/20/16 09:40 Rocephin 1gm Ivpb (Pre-Docked) IVPB 100 mls/hr DAILY [facility] Administration Insulin Aspart 0 vial 10/17/16 16:30 10/20/16 11:27 Novolog Vial Sliding Scale - SQ 4 units ACHS ARM[facility]O Administration Protocol Insulin Detemir 30 units 10/18/16 22:00 10/19/16 21:30 Levemir Vial SQ 30 units HS [facility]O Administration Insulin Detemir 45 units 10/19/16 07:00 10/20/16 06:16 Levemir Vial SQ 45 units AM [facility] Administration Lisinopril 10 mg 10/18/16 16:30 10/20/16 09:39 Prinivil PO 10 mg DAILY [facility] Administration Methylprednisolone Sodium Succinate 40 mg 10/21/16 10:00 Solu-Medrol - IVPB DAILY [facility] Repaglinide 1 mg 10/20/16 07:00 10/20/16 06:18 Prandin - PO 1 mg DAILY@0700 [facility] Administration Imaging: - 10/17 CT chest: abdominal aorta with soft and calcified plaque causing no critical lesions, tortuosity of iliofemoral systems widely patent - 2016 ECHO: normal lvl size function, impaired LV relaxation suggestive of diastolic dysfunction, RVSP 30-40mmhg, mild PulmHTN - 10/[address]: numerous chronic infarct involving posterior cranial fossa - CT chest wit b/l infiltrate/atelectasis Assessment: 76 year old male with a significant past medical history of HTN, HLD , DM II, COPD, ? CHF, prior ischemic CVA, chronic dysphagia (s/p trach removal) , admitted with increased dyspnea and weakness, found to have painless hyperbilirubinemia with a transaminitis. Plan: 1. Hyperbilirubinemia, Transaminitis - Levels are down trending - Likely due to medication, lipitor and gabapentin since discontinued - Unable to obtain MRCP with Abd MRI due to body habits - Hep panel negative - Monitor trend 2. Hypoalbuminemia - See above r/o liver malignancy vs hemangioma 3. ? aspiration pna, with cough - Dysphagia whole with nectar thick - Ceftriaxone (day 3) - Muscinex 600mg BID - Medrol daily today - Duonebs q4 armando - Pulm following 4. Diastolic disfunction CHF, grade 1 - BP improved with cardizem, maintain - Cardizem CD 120mg - Maintain lisinopril 5. HTN - Cardizem CD 120mg - Continue Lisinopril 10mg daily 6. hx of CVA - Repeat head CT negative 7. DM II, uncontrolled - ISS, BGM ACHS - Ha1c 8.2, improved from 05/2106 8. DVT ppx - Lovenox sq Dispo: - Family to decided for SNF ([facility]) pt would benefit from rehab Visit type - Emergency Visit Emergency Visit: Yes ED Registration Date: 10/17/16 Care time: The patient presented to the Emergency Department on the above date and was hospitalized for further evaluation of their emergent condition. - New Patient This patient is new to me today: No - Critical Care Critical Care patient: No
--- NOTE | 2016-10-20 15:29 | PN ---
Progress Note (short form) - Note Progress Note: PULMONARY LOW GRADE TEMP MILDLY SOB/COUGH NO JVD SCATTERED RHONCHI/WHEEZE S1S2 OBESE/HYPER-RESONANT RUQ DISCOMFORT TO PALP NO EDEMA/RIGHT HEMIPARESIS LABS/MEDS/IMAGING/MICRO/ORDERS REVIEWED SPOKE WITH HOSPITALIST IMP COUGH ,CONGESTION ?ASPIRATION RLL INFILTRATE/ATELECTASIS HYPERBILIRUBINEMIA RESOLVING ELEVATED LFTS ARE IMPROVING ASCENDING AORTIC ANEURYSM S/P CVA/RIGHT MISTI HTN NIDDM PLAN INHALED BRONCHODILATORS O2 ASPIRATION PRECAUTIONS ANTIBIOTICS NOT READY FOR DISCHARGE MONITOR LFT'S Britton GILES MD
[2016-10-21] MEDS: ALBUTEROL SO4 2.5/IPRATROPIUM 0.5 INH SOL 3 ML VIAL.NEB. NEB SCH ×5 (00:12→23:10)
[2016-10-21] MEDS: INSULIN SLIDING SCALE (NOVOLOG) 1 VIAL SQ SCH ×4 (06:23→21:32)
[2016-10-21] MEDS: REPAGLINIDE 0.5 MG TABLET (FP) PO SCH (06:45)
[2016-10-21] MEDS: INSULIN DETEMIR 100 UNITS/ML MDV SQ SCH ×2 (06:45→21:32)
[2016-10-21 08:31] LABS: ALBUMIN 2.6 g/dl (3.4-5.0); ALK PHOS 131 U/L (45-117); ANION GAP 10 (8-16); BILIRUBIN,TOTAL 1.3 mg/dL (0.2-1.0); CALCIUM 8.6 mg/dL (8.5-10.1); CO2 32 mmol/L (21-32); CREATININE 0.7 mg/dL (0.7-1.3); GLUCOSE,RANDOM 105 mg/dL (74-106); SGOT/AST 136 U/L (15-37); TOT PROT 6.5 g/dl (6.4-8.2)
[2016-10-21 08:32] LABS: SGPT/ALT 494 U/L (12-78)
[2016-10-21] MEDS: methylPREDNISolone NA SUCC 40 MG/1 ML VIAL IVPB SCH (09:24)
[2016-10-21] MEDS: ENOXAPARIN NA (PORCINE) 40 MG/0.4 ML DISP.SYRIN SQ SCH (10:04)
[2016-10-21] MEDS: ASPIRIN 81 MG CHEWABLE TABLETS PO SCH (10:04)
[2016-10-21] MEDS: CEFTRIAXONE 50 ML IVPB SCH (10:04)
[2016-10-21] MEDS: ESCITALOPRAM OXALATE 10 MG TABLET (FP) PO SCH (10:05)
[2016-10-21] MEDS: guaiFENesin 600 MG TABLET.ER (FP) PO SCH ×2 (10:05→21:32)
[2016-10-21] MEDS: LISINOPRIL 10 MG TABLET (FP) PO SCH (10:05)
--- NOTE | 2016-10-21 10:45 | PN ---
Progress Note (short form) - Note Progress Note: Breathing feels overall better. Some dry cough persists. Still with some RLQ discomfort, but improving. Intake & Output 10/18/16 10/19/16 10/20/16 10/21/16 23:59 23:59 23:59 23:59 Intake Total 370 700 620 100 Output Total 600 475 850 150 Balance -230 225 -230 -50 Weight 242 lb 11.2 oz Last Vital Signs Temp Pulse Resp BP Pulse Ox 98.4 F 61 18 136/76 96 10/21/16 06:00 10/21/16 06:00 10/21/16 06:00 10/21/16 06:00 10/20/16 21:00 Active Medications Albuterol Sulfate (Ventolin 0.083% Nebulizer Soln -) 1 amp NEB Q4H PRN PRN Reason: SHORT OF BREATH/WHEEZING Albuterol/Ipratropium (Duoneb -) 1 amp NEB QIDR [facility] Last Admin: 10/21/16 06:44 Dose: 1 amp Aspirin (Asa -) 81 mg PO DAILY [facility] Last Admin: 10/21/16 10:04 Dose: 81 mg Diltiazem HCl (Cardizem Cd -) 120 mg PO DAILY [facility] Last Admin: 10/21/16 10:04 Dose: 120 mg Enoxaparin Sodium (Lovenox -) 40 mg SQ DAILY [facility] Last Admin: 10/21/16 10:04 Dose: 40 mg Escitalopram Oxalate (Lexapro -) 10 mg PO DAILY [facility] Last Admin: 10/21/16 10:05 Dose: 10 mg Guaifenesin (Mucinex -) 600 mg PO BID [facility] Last Admin: 10/21/16 10:05 Dose: 600 mg Guaifenesin/Codeine Phosphate (Robitussin Ac -) 10 ml PO HS PRN PRN Reason: COUGH Last Admin: 10/19/16 03:29 Dose: 10 ml Ceftriaxone Sodium (Rocephin 1gm Ivpb (Pre-Docked)) 50 mls @ 100 mls/hr IVPB DAILY [facility] Last Admin: 10/21/16 10:04 Dose: 100 mls/hr Insulin Aspart (Novolog Vial Sliding Scale -) 0 vial SQ ACHS [facility] PRN Reason: Protocol Last Admin: 10/21/16 06:23 Dose: Not Given Insulin Detemir (Levemir Vial) 30 units SQ HS [facility] Last Admin: 10/20/16 21:38 Dose: 30 units Insulin Detemir (Levemir Vial) 45 units SQ AM [facility] Last Admin: 10/21/16 06:45 Dose: 45 units Lisinopril (Prinivil) 10 mg PO DAILY [facility] Last Admin: 10/21/16 10:05 Dose: 10 mg Methylprednisolone Sodium Succinate (Solu-Medrol -) 40 mg IVPB DAILY [facility] Last Admin: 10/21/16 09:24 Dose: 40 mg Repaglinide (Prandin -) 1 mg PO DAILY@0700 [facility] Last Admin: 10/21/16 06:45 Dose: 1 mg Gen: NAD HEENT: (-) Icterus Pulm: diminished BS at the bases CV: S1S12, regular Abd: soft, obese, (+) Mild RLQ tenderness w/ deep palpation Ext: (+) trace LE edema Neuro: Awake and alert, Non-focal Laboratory Results - last 24 hr 10/20/16 10/20/16 10/20/16 11:24 17:05 21:34 Sodium Potassium Chloride Carbon Dioxide Anion Gap BUN Creatinine Creat Clearance w eGFR POC Glucometer 250 282 345 Random Glucose Calcium Total Bilirubin AST ALT Alkaline Phosphatase Total Protein Albumin 10/21/16 10/21/16 05:35 06:40 Sodium 143 Potassium 3.2 L Chloride 101 Carbon Dioxide 32 Anion Gap 10 BUN 13 Creatinine 0.7 Creat Clearance w eGFR > 60 POC Glucometer 126 Random Glucose 105 D Calcium 8.6 Total Bilirubin 1.3 H AST 136 H D ALT 494 H Alkaline Phosphatase 131 H Total Protein 6.5 Albumin 2.6 L Problem List - Problems (1) Cough Code(s): R05 - COUGH (2) Diabetes Code(s): E11.9 - TYPE 2 DIABETES MELLITUS WITHOUT COMPLICATIONS (3) Hyperbilirubinemia Code(s): E80.6 - OTHER DISORDERS OF BILIRUBIN METABOLISM (4) Hyperlipidemia Code(s): E78.5 - HYPERLIPIDEMIA, UNSPECIFIED (5) Hypertension Code(s): I10 - ESSENTIAL (PRIMARY) HYPERTENSION (6) Pneumonia Code(s): J18.9 - PNEUMONIA, UNSPECIFIED ORGANISM Qualifiers: Pneumonia type: due to unspecified organism Laterality: right Lung location: lower lobe of lung Qualified Code(s): J18.9 - Pneumonia, unspecified organism (7) Respiratory distress Code(s): R06.00 - DYSPNEA, UNSPECIFIED (8) Transaminitis Code(s): R74.0 - NONSPEC ELEV OF LEVELS OF TRANSAMNS & LACTIC ACID DEHYDRGNSE (9) H/O: CVA (cerebrovascular accident) Code(s): Z86.73 - PRSNL HX OF TIA (TIA), AND CEREB INFRC W/O RESID DEFICITS IMP COUGH ,CONGESTION ?ASPIRATION RLL INFILTRATE/ATELECTASIS HYPERBILIRUBINEMIA ELEVATED LFTS ASCENDING AORTIC ANEURYSM S/P CVA HTN NIDDM PLAN INHALED BRONCHODILATORS O2 NEEDED ASPIRATION PRECAUTIONS ANTIBIOTICS PO TOLERATED DAILY MEDROL (CAN CHANGE TO PREDNISONE IN AM) DR BURR
--- NOTE | 2016-10-21 12:25 | PN ---
Progress Note, [employer]AT [employer]TAIN - Note Progress Note: Selected Entries 10/20/16 10/20/16 10/20/16 05:00 09:00 11:50 Breakfast 100% Lunch Temperature 97.3 F L 98.1 F 10/20/16 10/20/16 10/20/16 14:18 14:33 18:00 Breakfast Lunch 50% Temperature 99 F 98.6 F 10/21/16 10/21/16 06:00 11:51 Breakfast 75% Lunch Temperature 98.4 F Laboratory Tests 10/18/16 06:35 WBC 9.6 Noted to be coughing during lunch, however, pt has a cough and is congested. Pt seen chewing roasted chicken. Suggest Dysphagia whole which is soft, moist cohesive foods and chopped meats, please, with extra gravy. [place] thick liquid.
[2016-10-21] MEDS ORDERED: POTASSIUM CHLORIDE TABS 20 MEQ TABLET.ER (FP) PO ONE (18:00)
--- NOTE | 2016-10-21 18:15 | PN ---
Progress Note (short form) - Note Progress Note: SUBJECTIVE: The patient was seen and examined at the bedside, he has no complaints at this time. He reports a decrease in shortness of breath Current Medications Generic Name Dose Route Start Last Admin Trade Name Freq PRN Reason Stop Dose Admin Albuterol Sulfate 1 amp 10/17/16 15:09 Ventolin 0.083% Nebulizer Soln - NEB Q4H PRN SHORT OF BREATH/WHEEZING Albuterol/Ipratropium 1 amp 10/17/16 18:00 10/21/16 12:00 Duoneb - NEB 1 amp QIDR ARMANDO Administration Aspirin 81 mg 10/17/16 15:15 10/21/16 10:04 Asa - PO 81 mg DAILY ARMANDO Administration Diltiazem HCl 120 mg 10/20/16 10:00 10/21/16 10:04 Cardizem Cd - PO 120 mg DAILY ARMANDO Administration Enoxaparin Sodium 40 mg 10/18/16 10:00 10/21/16 10:04 Lovenox - SQ 40 mg DAILY ARMANDO Administration Escitalopram Oxalate 10 mg 10/17/16 15:15 10/21/16 10:05 Lexapro - PO 10 mg DAILY ARMANDO Administration Guaifenesin 600 mg 10/17/16 22:00 10/21/16 10:05 Mucinex - PO 600 mg BID ARMANDO Administration Guaifenesin/Codeine Phosphate 10 ml 10/19/16 03:00 10/19/16 03:29 Robitussin Ac - PO 10 ml HS PRN Administration COUGH Ceftriaxone Sodium 50 mls @ 100 mls/hr 10/18/16 12:45 10/21/16 10:04 Rocephin 1gm Ivpb (Pre-Docked) IVPB 100 mls/hr DAILY ARMANDO Administration Insulin Aspart 0 vial 10/17/16 16:30 10/21/16 17:03 Novolog Vial Sliding Scale - SQ 6 units ACHS ARMANDO Administration Protocol Insulin Detemir 30 units 10/18/16 22:00 10/20/16 21:38 Levemir Vial SQ 30 units HS ARMANDO Administration Insulin Detemir 45 units 10/19/16 07:00 10/21/16 06:45 Levemir Vial SQ 45 units AM ARMANDO Administration Lisinopril 10 mg 10/18/16 16:30 10/21/16 10:05 Prinivil PO 10 mg DAILY ARMANDO Administration Methylprednisolone Sodium Succinate 40 mg 10/21/16 10:00 10/21/16 09:24 Solu-Medrol - IVPB 40 mg DAILY ARMANDO Administration Repaglinide 1 mg 10/20/16 07:00 10/21/16 06:45 Prandin - PO 1 mg DAILY@0700 ARMANDO Administration OBJECTIVE: Vital Signs Period Temp Pulse Resp BP Sys/Pham Pulse Ox Last 24 Hr 98.4 F-98.5 F 61-70 18-20 136-150/64-90 96-97 PE Neuro: alert, awake, cn 2-12intact, RLE 4/5 motor Pulm: bilateral rhonchi +cough CV: s1 s2 rrr no mrg Abd: soft, non-tender, non-distended. Normoactive bowel sounds Ext: warm, no le edema MSK: R sided hemiparesis CBCD WBC 9.6 K/mm3 (4.0-10.0) 10/18/16 06:35 RBC 4.41 M/mm3 (4.00-5.60) 10/18/16 06:35 Hgb 13.9 GM/dL (11.7-16.9) 10/18/16 06:35 Hct 39.9 % (35.4-49) 10/18/16 06:35 MCV 90.4 fl (80-96) 10/18/16 06:35 MCHC 35.0 g/dl (32.0-35.9) 10/18/16 06:35 RDW 15.0 % (11.9-15.9) 10/18/16 06:35 Plt Count 211 K/MM3 (134-434) 10/18/16 06:35 MPV 8.7 fl (7.5-11.1) 10/18/16 06:35 CMP Sodium 143 mmol/L (136-145) 10/21/16 06:40 Potassium 3.2 mmol/L (3.5-5.1) L 10/21/16 06:40 Chloride 101 mmol/L (98-107) 10/21/16 06:40 Carbon Dioxide 32 mmol/L (21-32) 10/21/16 06:40 Anion Gap 10 (8-16) 10/21/16 06:40 BUN 13 mg/dL (7-18) 10/21/16 06:40 Creatinine 0.7 mg/dL (0.7-1.3) 10/21/16 06:40 Creat Clearance w eGFR > 60 (>60) 10/21/16 06:40 Random Glucose 105 mg/dL (74-106) D 10/21/16 06:40 Calcium 8.6 mg/dL (8.5-10.1) 10/21/16 06:40 Total Bilirubin 1.3 mg/dL (0.2-1.0) H 10/21/16 06:40 AST 136 U/L (15-37) H D 10/21/16 06:40 ALT 494 U/L (12-78) H 10/21/16 06:40 Alkaline Phosphatase 131 U/L (45-117) H 10/21/16 06:40 Total Protein 6.5 g/dl (6.4-8.2) 10/21/16 06:40 Albumin 2.6 g/dl (3.4-5.0) L 10/21/16 06:40 CARDIAC ENZYMES Creatine Kinase 107 IU/L (39-308) 10/17/16 11:48 Troponin I 0.03 ng/ml (0.00-0.05) 10/17/16 11:48 Imaging: - 10/17 CT chest: abdominal aorta with soft and calcified plaque causing no critical lesions, tortuosity of iliofemoral systems widely patent - 2016 ECHO: normal lvl size function, impaired LV relaxation suggestive of diastolic dysfunction, RVSP 30-40mmhg, mild PulmHTN - 10/[address]: numerous chronic infarct involving posterior cranial fossa - CT chest wit b/l infiltrate/atelectasis Assessment: 76 year old male with a significant past medical history of HTN, HLD , DM II, COPD, ? CHF, prior ischemic CVA, chronic dysphagia (s/p trach removal) , admitted with increased dyspnea and weakness, found to have painless hyperbilirubinemia with a transaminitis. Plan: 1. Hyperbilirubinemia, Transaminitis - Levels are down trending - Likely due to medication, lipitor and gabapentin since discontinued - Unable to obtain MRCP with Abd MRI due to body habits - Hep panel negative - Monitor trend 2. Hypoalbuminemia - See above r/o liver malignancy vs hemangioma 3. ? aspiration pna, with cough - Dysphagia whole with nectar thick - Ceftriaxone (day 3) - Muscinex 600mg BID - Medrol daily today - Duonebs q4 armando - Pulm following 4. Diastolic disfunction CHF, grade 1 - BP improved with cardizem, maintain - Cardizem CD 120mg - Maintain lisinopril 5. HTN - Cardizem CD 120mg - Continue Lisinopril 10mg daily 6. hx of CVA - Repeat head CT negative 7. DM II, uncontrolled - ISS, BGM ACHS - Ha1c 8.2, improved from 05/2106 8. DVT ppx - Lovenox sq Dispo: - Family to decided for SNF ([facility]) pt would benefit from rehab Visit type - Emergency Visit Emergency Visit: Yes ED Registration Date: 10/17/16 Care time: The patient presented to the Emergency Department on the above date and was hospitalized for further evaluation of their emergent condition. - New Patient This patient is new to me today: Yes Date on this admission: 10/21/16 - Critical Care Critical Care patient: No
--- NOTE | 2016-10-21 20:04 | PN ---
GI Progress Note Subjective: clinically improved, cough has improved, LFTS down wall trend - Objective Vital Signs: Vital Signs Temperature 98.4 F 10/21/16 18:15 Pulse Rate 77 10/21/16 18:15 Respiratory Rate 18 10/21/16 18:15 Blood Pressure 139/74 10/21/16 18:15 O2 Sat by Pulse Oximetry (%) 97 10/21/16 11:00 Constitutional: Well Nourished Eyes: Yes: Conjunctiva Clear HENT: Yes: Atraumatic Neck: Yes: Supple Cardiovascular: Yes: Regular Rate and Rhythm Respiratory: Yes: CTA Bilaterally ...Palpate: Yes: Soft. No: Firm/Rigid, Guarding, Hepatomegaly, Mass, Pulsatile Mass, Splenomegaly, Tenderness Labs: CBC, BMP 10/18/16 06:35 10/21/16 06:40 INR, PTT INR 1.07 (0.82-1.09) 10/18/16 06:35 Problem List - Problems (1) Elevated liver enzymes Assessment/Plan: --due to drug toxicity R> restart statin to Tue-Tue and Tuesday and Colestid 100mg bid once lfts is 1- 2 times normal please recall as necessary Code(s): R74.8 - ABNORMAL LEVELS OF OTHER SERUM ENZYMES
[2016-10-21] MEDS: guaiFENesin/CODEINE 5 ML UNIT-DOSE CUPS PO PRN (21:32)
[2016-10-22] MEDS: INSULIN SLIDING SCALE (NOVOLOG) 1 VIAL SQ SCH ×3 (06:32→16:26)
[2016-10-22] MEDS: INSULIN DETEMIR 100 UNITS/ML MDV SQ SCH (06:33)
[2016-10-22] MEDS: ALBUTEROL SO4 2.5/IPRATROPIUM 0.5 INH SOL 3 ML VIAL.NEB. NEB SCH ×2 (06:33→11:48)
[2016-10-22] MEDS: REPAGLINIDE 0.5 MG TABLET (FP) PO SCH (06:34)
[2016-10-22 08:47] LABS: ALBUMIN 2.8 g/dl (3.4-5.0); ALK PHOS 129 U/L (45-117); ANION GAP 8 (8-16); BILIRUBIN,TOTAL 1.2 mg/dL (0.2-1.0); CALCIUM 8.9 mg/dL (8.5-10.1); CO2 31 mmol/L (21-32); CREATININE 0.8 mg/dL (0.7-1.3); GLUCOSE,RANDOM 137 mg/dL (74-106); SGOT/AST 116 U/L (15-37); TOT PROT 6.9 g/dl (6.4-8.2)
--- NOTE | 2016-10-22 08:48 | PN ---
Progress Note (short form) - Note Progress Note: SUBJECTIVE: The patient was seen and examined at the bedside, he reports he would like to be discharged today Current Medications Generic Name Dose Route Start Last Admin Trade Name Freq PRN Reason Stop Dose Admin Albuterol Sulfate 1 amp 10/17/16 15:09 Ventolin 0.083% Nebulizer Soln - NEB Q4H PRN SHORT OF BREATH/WHEEZING Albuterol/Ipratropium 1 amp 10/17/16 18:00 10/22/16 06:33 Duoneb - NEB 1 amp QIDR FLORIN Administration Aspirin 81 mg 10/17/16 15:15 10/21/16 10:04 Asa - PO 81 mg DAILY FLORIN Administration Diltiazem HCl 120 mg 10/20/16 10:00 10/21/16 10:04 Cardizem Cd - PO 120 mg DAILY FLORIN Administration Enoxaparin Sodium 40 mg 10/18/16 10:00 10/21/16 10:04 Lovenox - SQ 40 mg DAILY FLORIN Administration Escitalopram Oxalate 10 mg 10/17/16 15:15 10/21/16 10:05 Lexapro - PO 10 mg DAILY FLORIN Administration Guaifenesin 600 mg 10/17/16 22:00 10/21/16 21:32 Mucinex - PO 600 mg BID FLORIN Administration Guaifenesin/Codeine Phosphate 10 ml 10/19/16 03:00 10/21/16 21:32 Robitussin Ac - PO 10 ml HS PRN Administration COUGH Ceftriaxone Sodium 50 mls @ 100 mls/hr 10/18/16 12:45 10/21/16 10:04 Rocephin 1gm Ivpb (Pre-Docked) IVPB 100 mls/hr DAILY FLORIN Administration Insulin Aspart 0 vial 10/17/16 16:30 10/22/16 06:32 Novolog Vial Sliding Scale - SQ 2 units ACHS FLORIN Administration Protocol Insulin Detemir 30 units 10/18/16 22:00 10/21/16 21:32 Levemir Vial SQ 30 units HS FLORIN Administration Insulin Detemir 45 units 10/19/16 07:00 10/22/16 06:33 Levemir Vial SQ 45 units AM FLORIN Administration Lisinopril 10 mg 10/18/16 16:30 10/21/16 10:05 Prinivil PO 10 mg DAILY FLORIN Administration Methylprednisolone Sodium Succinate 40 mg 10/21/16 10:00 10/21/16 09:24 Solu-Medrol - IVPB 40 mg DAILY FLORIN Administration Repaglinide 1 mg 10/20/16 07:00 10/22/16 06:34 Prandin - PO 1 mg DAILY@0700 FLORIN Administration OBJECTIVE: Vital Signs Period Temp Pulse Resp BP Sys/Pham Pulse Ox Last 24 Hr 98.4 F-99.1 F 61-77 18-20 136-150/64-90 97-97 Physical Exam: General: NAD HEENT: poor dentition Lungs: B/l rhonchi Heart: RRR, S1S2 Abd: Soft, non-tender, non-distended. Normoactive bowel sounds Ext: Warm, well-perfused. 2+ DP/PT bilaterally Neuro: hemiparesis CBCD WBC 9.6 K/mm3 (4.0-10.0) 10/18/16 06:35 RBC 4.41 M/mm3 (4.00-5.60) 10/18/16 06:35 Hgb 13.9 GM/dL (11.7-16.9) 10/18/16 06:35 Hct 39.9 % (35.4-49) 10/18/16 06:35 MCV 90.4 fl (80-96) 10/18/16 06:35 MCHC 35.0 g/dl (32.0-35.9) 10/18/16 06:35 RDW 15.0 % (11.9-15.9) 10/18/16 06:35 Plt Count 211 K/MM3 (134-434) 10/18/16 06:35 MPV 8.7 fl (7.5-11.1) 10/18/16 06:35 CMP Sodium 143 mmol/L (136-145) 10/21/16 06:40 Potassium 3.2 mmol/L (3.5-5.1) L 10/21/16 06:40 Chloride 101 mmol/L (98-107) 10/21/16 06:40 Carbon Dioxide 32 mmol/L (21-32) 10/21/16 06:40 Anion Gap 10 (8-16) 10/21/16 06:40 BUN 13 mg/dL (7-18) 10/21/16 06:40 Creatinine 0.7 mg/dL (0.7-1.3) 10/21/16 06:40 Creat Clearance w eGFR > 60 (>60) 10/21/16 06:40 Random Glucose 105 mg/dL (74-106) D 10/21/16 06:40 Calcium 8.6 mg/dL (8.5-10.1) 10/21/16 06:40 Total Bilirubin 1.3 mg/dL (0.2-1.0) H 10/21/16 06:40 AST 136 U/L (15-37) H D 10/21/16 06:40 ALT 494 U/L (12-78) H 10/21/16 06:40 Alkaline Phosphatase 131 U/L (45-117) H 10/21/16 06:40 Total Protein 6.5 g/dl (6.4-8.2) 10/21/16 06:40 Albumin 2.6 g/dl (3.4-5.0) L 10/21/16 06:40 CARDIAC ENZYMES Creatine Kinase 107 IU/L (39-308) 10/17/16 11:48 Troponin I 0.03 ng/ml (0.00-0.05) 10/17/16 11:48 Imaging: - 10/17 CT chest: abdominal aorta with soft and calcified plaque causing no critical lesions, tortuosity of iliofemoral systems widely patent - 2016 ECHO: normal lvl size function, impaired LV relaxation suggestive of diastolic dysfunction, RVSP 30-40mmhg, mild PulmHTN - 10/[address]: numerous chronic infarct involving posterior cranial fossa - CT chest wit b/l infiltrate/atelectasis Assessment: This is a 76 year old male with PMHx of HTN, hyperlipidemia, DM II, COPD, ? CHF, prior ischemic CVA, chronic dysphagia (s/p trach removal), admitted with increased dyspnea and weakness, found to have painless hyperbilirubinemia with a transaminitis. Plan: 1) : Hyperbilirubinemia, transaminitis - Likely 2/2 drug toxicity - Restart statin to Tue-Tue and Tuesday and Colestid 100mg bid once lfts is 1-2 times normal - Continues to improve - Unable to obtain MRCP with Abd MRI due to body habits - Acute hepatitis panel negative - Appreciate GI consult 2) Pulmonary: possible aspiration pneumonia with cough - Chest CT with atelectasis/infiltrates at b/l bases - Continue Ceftriaxone per pulmonary - Continue Solu-medrol 40mg IVPB daily - Abiel - Appreciate pulmonary consult 3) Cardiology: Diastolic disfunction CHF, grade 1 - Continue Cardizem CD 120mg - Continue lisinopril HTN - Cardizem CD 120mg - Continue Lisinopril 10mg daily 4) Neuro: Hx of CVA - Residual hemiplegia 5) Endocrine: DM - BGM ACHS - ISS ACHS 6) F/E/N: - Monitor electrolytes - Dysphagia whole 7) Prophylaxis: - PT - Lovenox 40mg sq daily 8) Dispo: - Once cleared by pulmonary CODE STATUS: FULL CODE Visit type - Emergency Visit Emergency Visit: Yes ED Registration Date: 10/17/16 Care time: The patient presented to the Emergency Department on the above date and was hospitalized for further evaluation of their emergent condition. - New Patient This patient is new to me today: No - Critical Care Critical Care patient: No
[2016-10-22 08:53] LABS: SGPT/ALT 470 U/L (12-78)
[2016-10-22] MEDS: ESCITALOPRAM OXALATE 10 MG TABLET (FP) PO SCH (09:22)
[2016-10-22] MEDS: CEFTRIAXONE 50 ML IVPB SCH (09:22)
[2016-10-22] MEDS: ASPIRIN 81 MG CHEWABLE TABLETS PO SCH (09:22)
[2016-10-22] MEDS: methylPREDNISolone NA SUCC 40 MG/1 ML VIAL IVPB SCH (09:22)
[2016-10-22] MEDS: guaiFENesin 600 MG TABLET.ER (FP) PO SCH (09:22)
[2016-10-22] MEDS: ENOXAPARIN NA (PORCINE) 40 MG/0.4 ML DISP.SYRIN SQ SCH (09:22)
[2016-10-22] MEDS: LISINOPRIL 10 MG TABLET (FP) PO SCH (09:22)
--- NOTE | 2016-10-22 14:59 | PN ---
Progress Note (short form) - Note Progress Note: PULMONARY AFEBRILE LYING FLAT NO SOB/LESS COUGH NO JVD CLEAR B/L ANTERIOR S1S2 OBESE/HYPER-RESONANT NO EDEMA/RIGHT HEMIPARESIS LABS/MEDS/IMAGING/MICRO/ORDERS/NOTES REVIEWED RLL INFILTRATE/ATELECTASIS RESOLVING HYPERBILIRUBINEMIA RESOLVING ELEVATED LFTS ARE IMPROVING ASCENDING AORTIC ANEURYSM S/P CVA/RIGHT MISTI HTN NIDDM PLAN INHALED BRONCHODILATORS HAS HOME O2 ASPIRATION PRECAUTIONS ANTIBIOTICS MONITOR LFT'S DISCHARGE PLANNING Britton GILES MD
--- NOTE | 2016-10-22 15:33 | DS ---
Physical Examination Vital Signs: Vital Signs Temperature 98.6 F 10/22/16 10:00 Pulse Rate 57 L 10/22/16 10:00 Respiratory Rate 18 10/22/16 10:00 Blood Pressure 145/76 10/22/16 10:00 O2 Sat by Pulse Oximetry (%) 97 10/22/16 09:00 Labs: CBC, BMP 10/18/16 06:35 10/22/16 06:50 Discharge Summary Reason For Visit: TRANSAMINITIS HYPERBILIRUBNEMIA Current Active Problems Bronchitis (Acute) Cough (Acute) DVT prophylaxis (Acute) Diabetes (Acute) Elevated liver enzymes (Acute) H/O: CVA (cerebrovascular accident) (Acute) Hyperbilirubinemia (Acute) Hyperlipidemia (Acute) Hypertension (Acute) Pneumonia (Acute) Respiratory distress (Acute) Transaminitis (Acute) Condition: Improved - Instructions Diet, Activity, Other Instructions: Please return to the ED with new, persistent, or worsening symptoms. Please follow-up with providers as indicated. Please restart Lipitor on Tuesday, Tuesday, and Fridays and Colestid 100mg po bid once LFTs are 1-2 times normal value. Please have your LFTs checking on 10/24/16. Referrals: Jass Gutierrez MD [Staff Physician] - 1 Week Nahum Padilla MD [Staff Physician] - 1 Week Dhiraj Diane MD [Staff Physician] - 1 Week Disposition: [facility] - Home Medications Comprehensive Discharge Medication List: Ambulatory Orders Aspirin [ASA -] 81 mg PO DAILY 12/10/15 Escitalopram Oxalate [Lexapro -] 10 mg PO DAILY 12/10/15 Gabapentin 300 mg PO DAILY 12/10/15 Insulin Detemir [Levemir Flextouch] 30 unit SQ HS 12/10/15 Insulin Detemir [Levemir Flextouch] 45 unit SQ AM 12/10/15 Repaglinide 1 mg PO DAILY 12/10/15 Nebulizer/Compressor [Comp-Air Elite Comp Nebulizer] 1 each MC Q8H PRN #1 each 12/11/15 Collagenase Clostridium Hist. [Santyl -] 1 applic TP DAILY #90 applic 01/12/16 Prednisone 10 mg PO DAILY #30 tablet 05/31/16 Albuterol 0.083% Nebulizer Bethanie [Ventolin 0.083% Nebulizer Soln -] 1 neb NEB Q8H PRN #0 neb 10/22/16 Albuterol 2.5/Ipratropium 0.5 [Duoneb -] 1 amp NEB QIDR amp 10/22/16 Cefuroxime Axetil [Ceftin -] 500 mg PO Q12H #10 tablet 10/22/16 Diltiazem Cd [Cardizem Cd -] 120 mg PO DAILY tab 10/22/16 Enoxaparin [Lovenox -] 40 mg SQ DAILY syr 10/22/16 Guaifenesin AC [Robitussin AC -] 10 ml PO HS PRN #0 ea MDD 20 10/22/16 Insulin Sliding Scale [Novolog Vial Sliding Scale -] 0 vial SQ ACHS units 10/22 Lisinopril [Prinivil] 10 mg PO DAILY tablet 10/22/16 Prednisone [Deltasone -] See Taper PO DAILY #26 tablet 10/22/16
[2016-10-22 15:39] VITALS: BP 130/74; PULSE 72; TEMP 99.2
== END 2016-10-22 17:00 | DRG 178 ==
LOC: JER 11:10 → JERBED 14:02 → J5S 18:28
PROVIDERS: ADMIT Internal Medicine; ATTEND Registered Nurse
DX: J69.0 Pneumonitis due to inhalation of food and vomit (principal); J98.11 Atelectasis; I69.351 Hemiplegia and hemiparesis following cerebral infarction affecting right dominant side; I50.30 Unspecified diastolic (congestive) heart failure; J44.1 Chronic obstructive pulmonary disease with (acute) exacerbation; J44.0 Chronic obstructive pulmonary disease with (acute) lower respiratory infection; R74.0 Nonspecific elevation of levels of transaminase and lactic acid dehydrogenase [LDH]; E78.5 Hyperlipidemia, unspecified; E80.6 Other disorders of bilirubin metabolism; I71.9 Aortic aneurysm of unspecified site, without rupture; R13.10 Dysphagia, unspecified; I11.0 Hypertensive heart disease with heart failure; E11.65 Type 2 diabetes mellitus with hyperglycemia
CPT/HCPCS: 36415; 70450-TC; 71010-TC; 71260-TC; 74177-TC; 74230-TC; 76700-TC; 80053; 80074; 80307; 81003; 81015; 82140; 82150; 82248; 82550; 83036; 83605; 83690; 83735; 83880; 84100; 84484; 85025; 85610; 85730; 87070; 87205; 92611-GN; 93005; 93010; 93306-TC; 94640; 97116-GP; 97161-GP; 99284-25

== ENCOUNTER 2017-12-19 18:23 | Inpatient (IN) | payer OTHER ==
--- NOTE | 2017-12-19 20:35 | PDOC ---
Attending Attestation - Resident Resident Name: Da Beard - ED Attending Attestation I have performed the following: I have examined & evaluated the patient, The case was reviewed & discussed with the resident, I agree w/resident's findings & plan, Exceptions are as noted - Medical Decision Making 12/19/17 23:22 Pt will admitted for further evaluation and care <Robert Leal - Last Filed: 12/19/17 23:22> - HPI HPI: 12/19/17 20:57 The patient is a 77 year old male with a significant PMH of HTN, HLD, DM, stroke with residual L sided weakness and dysphagia presenting after his left leg gave out earlier today. As per the aid, the patient has been altered over the last few days. Patient has no other complaints today. The patient denies chest pain, shortness of breath, headache and dizziness. Denies fever, chills, nausea, vomit, diarrhea and constipation. Denies dysuria, frequency, urgency and hematuria. Allergies: NKA Past surgical history: None reported. Social history: No reported alcohol, drug, or cigarette use. PCP:Dr. Loco - Physicial Exam PE: 12/19/17 23:13 GENERAL: Awake, alert, and fully oriented, in no acute distress, disheveled, not answering question appropriately HEAD: No signs of trauma, normocephalic, atraumatic EYES: PERRLA, EOMI, sclera anicteric, conjunctiva clear ENT: Auricles normal inspection, hearing grossly normal, nares patent, oropharynx clear without exudates. Moist mucosa NECK: Normal ROM, supple, no lymphadenopathy, JVD, or masses LUNGS: No distress, speaks full sentences, coarse breath sounds bilaterally HEART: Regular rate and rhythm, normal S1 and S2, no murmurs, rubs or gallops, peripheral pulses normal and equal bilaterally. ABDOMEN: Soft, nontender, normoactive bowel sounds. No guarding, no rebound. No masses EXTREMITIES: Normal inspection, Normal range of motion, no edema. No clubbing or cyanosis. NEUROLOGICAL: Cranial nerves II through XII grossly intact. Slurred speech, 1/ 5 right sided strength, left sided 3/5 weakness. SKIN: Warm, Dry, normal turgor, no rashes or lesions noted. <Mckenna Shafer - Last Filed: 12/20/17 01:53>
--- NOTE | 2017-12-19 21:29 | PDOC ---
History of Present Illness - General Chief Complaint: Syncope/Near Syncope Stated Complaint: SYNCOPE Time Seen by Provider: 12/19/17 20:10 History Source: Patient Exam Limitations: Clinical Condition - History of Present Illness Initial Comments: 12/19/17 21:30 Patient is a 77M with history of HTN, HLD, DM, CVA with right sided weakness here today complaining of increasing confusion and more diffuse weakness over the past week. His daughter states that he was able to walk 12 steps last week, but has gradually had decreased exercise tolerance, finally having his left leg collapse today. Patient was caught by his aide and had a slow movement to the floor. Denies head trauma, neck pain, chest pain, pelvic pain. Patient's family reports worsening appetite and generally not acting like himself. Patient denies chest pain, shortness of breath, nausea, vomiting. Patient gives tangential history. Past History - Past Medical History Allergies/Adverse Reactions: Allergies Allergy/AdvReac Type Severity Reaction Status Date / Time No Known Allergies Allergy Verified 12/19/17 18:31 Home Medications: Ambulatory Orders Aspirin [ASA -] 81 mg PO DAILY 12/10/15 Escitalopram Oxalate [Lexapro -] 10 mg PO DAILY 12/10/15 Gabapentin 300 mg PO DAILY 12/10/15 Insulin Detemir [Levemir Flextouch] 30 unit SQ HS 12/10/15 Insulin Detemir [Levemir Flextouch] 45 unit SQ AM 12/10/15 Repaglinide 1 mg PO DAILY 12/10/15 Nebulizer and Compressor [Comp-Air Elite Comp Nebulizer] 1 each Q8H PRN #1 each 12/11/15 Collagenase Clostridium Hist. [Santyl -] 1 applic TP DAILY #90 applic 01/12/16 Prednisone 10 mg PO DAILY #30 tablet 05/31/16 Albuterol 0.083% Nebulizer Bethanie [Ventolin 0.083% Nebulizer Soln -] 1 neb NEB Q8H PRN #0 neb 10/22/16 Albuterol 2.5/Ipratropium 0.5 [Duoneb -] 1 amp NEB QIDR amp 10/22/16 Cefuroxime Axetil [Ceftin -] 500 mg PO Q12H #10 tablet 10/22/16 Diltiazem Cd [Cardizem Cd -] 120 mg PO DAILY tab 10/22/16 Enoxaparin [Lovenox -] 40 mg SQ DAILY syr 10/22/16 Guaifenesin AC [Robitussin AC -] 10 ml PO HS PRN #0 ea MDD 20 10/22/16 Insulin Sliding Scale [Novolog Vial Sliding Scale -] 0 vial SQ ACHS units 10/22 Lisinopril [Prinivil] 10 mg PO DAILY tablet 10/22/16 predniSONE [Deltasone -] See Taper PO DAILY #26 tablet 10/22/16 Anemia: No Asthma: No Cancer: No Cardiac Disorders: Yes CVA: Yes (rt side hemiparesis) COPD: No CHF: Yes Dementia: No Diabetes: Yes GI Disorders: No Disorders: No HTN: Yes Hypercholesterolemia: Yes Liver Disease: No Seizures: No Thyroid Disease: No - Surgical History Abdominal Surgery: No Appendectomy: No Cardiac Surgery: No Cholecystectomy: No Lung Surgery: No Neurologic Surgery: No Orthopedic Surgery: No - Immunization History Immunization Up to Date: Yes - Suicide/Smoking/Psychosocial Hx Smoking Status: No Smoking History: Never smoked Have you smoked in the past 12 months: No Number of Cigarettes Smoked Daily: 0 If you are a former smoker, when did you quit?: 6 years ago Information on smoking cessation initiated: No Hx Alcohol Use: No Drug/Substance Use Hx: No Substance Use Type: None Hx Substance Use Treatment: No Review of Systems - Review of Systems Comments:: 12/19/17 21:35 GENERAL/CONSTITUTIONAL: No fever or chills. +weakness. HEAD, EYES, EARS, NOSE AND THROAT: No change in vision. No sore throat. CARDIOVASCULAR: No chest pain or shortness of breath RESPIRATORY: No cough, wheezing, or hemoptysis. GASTROINTESTINAL: No nausea, vomiting, diarrhea or constipation. GENITOURINARY: No dysuria, frequency, or change in urination. MUSCULOSKELETAL: No joint or muscle swelling or pain. No neck or back pain. SKIN: No rash NEUROLOGIC: No headache, vertigo, loss of consciousness. ENDOCRINE: No increased thirst. No abnormal weight change HEMATOLOGIC/LYMPHATIC: No anemia, easy bleeding, or history of blood clots. ALLERGIC/IMMUNOLOGIC: No hives or skin allergy. *Physical Exam - Vital Signs Last Vital Signs Temp Pulse Resp BP Pulse Ox 99.3 F 74 16 117/66 100 12/19/17 18:28 12/19/17 18:28 12/19/17 18:28 12/19/17 18:28 12/19/17 18:28 - Physical Exam Comments: 12/19/17 21:36 GENERAL: Awake, alert, and fully oriented, in no acute distress, disheveled, not answering question appropriately HEAD: No signs of trauma, normocephalic, atraumatic EYES: PERRLA, EOMI, sclera anicteric, conjunctiva clear ENT: Auricles normal inspection, hearing grossly normal, nares patent, oropharynx clear without exudates. Moist mucosa NECK: Normal ROM, supple, no lymphadenopathy, JVD, or masses LUNGS: No distress, speaks full sentences, coarse breath sounds bilaterally HEART: Regular rate and rhythm, normal S1 and S2, no murmurs, rubs or gallops, peripheral pulses normal and equal bilaterally. ABDOMEN: Soft, nontender, normoactive bowel sounds. No guarding, no rebound. No masses EXTREMITIES: Normal inspection, Normal range of motion, no edema. No clubbing or cyanosis. NEUROLOGICAL: Cranial nerves II through XII grossly intact. Slurred speech, 1/ 5 right sided strength, left sided 3/5 weakness. SKIN: Warm, Dry, normal turgor, no rashes or lesions noted. ED Treatment Course - LABORATORY CBC & Chemistry Diagram: 12/19/17 21:40 12/19/17 21:40 - RADIOLOGY Radiology Studies Ordered: Category Date Time Status HEAD CT WITHOUT CONTRAST [CT] Stat CT Scan 12/19/17 20:26 Ordered CHEST X-RAY PORTABLE* [RAD] Stat Radiology 12/19/17 20:25 Taken Medical Decision Making - Medical Decision Making 12/19/17 21:37 Patient is 77M with history of HTN, HLD, DM, CVA with dysphagia and R sided weakness, here today with increasing confusion and weakness. Vital signs stable and normal. Breath sounds coarse. EMS reports BS in 400s. Will workup as possible DKA/HHS with infectious workup and head CT. Last known well is one week ago per family, well outside of any interventional window. 12/19/17 22:18 EKG shows sinus rhythm with marked sinus arrhythmia with one PVC. No st elevations/depressions. No significant t wave abnormalities. Normal intervals. 12/19/17 23:10 CXR is poor quality, no pneumonia appreciated. ? pleural effusion in left lower lobe, similar to prior pneumonia. Laboratory Tests 12/19/17 12/19/17 21:40 21:40 WBC 16.0 H Hgb 13.1 Plt Count 191 BUN 16 Creatinine 1.3 Troponin I 0.03 B-Natriuretic Peptide 536.56 H UA shows no UTI. CT shows multiple old infarcts no new infarcts. Will admit for MRI and further neuro workup, suspect that patient had stroke at home that caused worsening function. *DC/Admit/Observation/Transfer Diagnosis at time of Disposition: Fall, H/O: CVA (cerebrovascular accident) - Discharge Dispostion Condition at time of disposition: Stable Decision to Admit order: Yes - Referrals - Patient Instructions - Post Discharge Activity
[2017-12-19 21:53] LABS: BASO % 0.2 % (0-2.0); EOS % 0.4 % (0-4.5); HEMATOCRIT 36.9 % (35.4-49); HEMOGLOBIN 13.1 GM/dL (11.7-16.9); LYMPH % 12.4 % (8-40); MCH 31.9 pg (25.7-33.7); MCHC 35.6 g/dl (32.0-35.9); MEAN CELL VOLUME 89.8 fl (80-96); MEAN PLT VOLUME 9.6 fl (7.5-11.1); MONO % 8.4 % (3.8-10.2); NEUT % 78.6 % (42.8-82.8); PLATELET COUNT 191 K/MM3 (134-434); RBC 4.11 M/mm3 (4.00-5.60)
[2017-12-19 21:54] LABS: VENOUS PC02 43.1 mmHg (38-52); VENOUS PH 7.4 (7.32-7.42); VENOUS PO2 55.8 mmHg (28-48)
[2017-12-19 22:09] LABS: INR 1.34 (0.83-1.09); PROTHROMBIN TIME (PATIENT) 15.1 SEC (9.7-13.0)
[2017-12-19 22:09] LABS: URINE APPEARANCE CLEAR; URINE BILIRUBIN NEGATIVE (<2.0 mg/dL); URINE COLOR AMBER; URINE GLUCOSE (UA) 3+ (NEGATIVE); URINE KETONE NEGATIVE (NEGATIVE); URINE LEUK ESTERASE NEGATIVE (NEGATIVE); URINE NITRITE NEGATIVE (NEGATIVE); URINE PROTEIN 1+ (NEGATIVE); URINE UROBILINOGEN 4.0 E.U/dl mg/dL (0.2-1.0)
[2017-12-19 22:10] LABS: EPI CELLS RARE /HPF (FEW); URINE BACTERIA RARE /hpf (NONE SEEN); URINE HYALINE CAST 2 /lpf; URINE MUCUS RARE
[2017-12-19 22:22] LABS: ALBUMIN 2.5 g/dl (3.4-5.0); ANION GAP 7 MMOL/L (8-16); BLOOD UREA NITROGEN 16 mg/dL (7-18); CALCIUM 8.1 mg/dL (8.5-10.1); CHLORIDE 101 mmol/L (98-107); CO2 28 mmol/L (21-32); CREATININE 1.3 mg/dL (0.7-1.3); GLUCOSE,RANDOM 295 mg/dL (74-106); POTASSIUM 3.9 mmol/L (3.5-5.1); SGOT/AST 32 U/L (15-37); SGPT/ALT 36 U/L (12-78); SODIUM 136 mmol/L (136-145)
[2017-12-19 22:26] LABS: ALK PHOS 89 U/L (45-117); BILIRUBIN,TOTAL 1.1 mg/dL (0.2-1.0); N-TERMINAL BNP 536.56 pg/ml (5-450)
--- NOTE | 2017-12-19 23:29 | PN ---
Teaching Attending Note Name of Resident: nAusha Gunderson ATTENDING PHYSICIAN STATEMENT I saw and evaluated the patient. I reviewed the resident's note and discussed the case with the resident. I agree with the resident's findings and plan as documented. SUBJECTIVE: Patient is a 77 year old man with a significant PMH of HTN, abnormal LFTs, prior tracheostomy, HLD, NIDDM, stroke with residual right sided weakness and dysphagia presenting after his left leg gave out earlier today. As per the aide , the patient has been altered over the last few days - aide not available to elaborate on the specific details of "altered mental status". Despite gargling breathing, he insists that is normal for him. No BM in 3 days and has buttock pain where he has ulcers. The patient denies chest pain, shortness of breath, headache and dizziness. OBJECTIVE: Alert. Gargling breath sounds Vital Signs Period Temp Pulse Resp BP Sys/Pham Pulse Ox Last 24 Hr 99.3 F 74-77 16 117/66 98-100 HEENT: No Jaundice, eye redness or discharge, PERRLA, Right eye ptosis; right facial droop. Normocephalic, atraumatic. External ears are normal and hearing is grossly intact. No nasal discharge. Neck: Supple, nontender. No palpable adenopathy or thyromegaly. No JVD Chest: Good effort. Clear to auscultation and percussion. Heart: Regular. No S3, rub or murmur Abdomen: Distended/obese?, soft, nontender and no HSM. No rebound or guarding. Normoactive bowel sounds. Ext: Peripheral pulses intact. Right leg edema. Stage 2/3 ulcers on both buttocks - clean with granulating tissue - no discharge. Skin: Warm and dry. No petechiae, rash or ecchymosis. Neuro: Alert. Oriented x3. Right hemiparesis. Sensation grossly intact in all four extremities. Home Medications Medication Instructions Recorded Aspirin [ASA -] 81 mg PO DAILY 12/10/15 Escitalopram Oxalate [Lexapro -] 10 mg PO DAILY 12/10/15 Gabapentin 300 mg PO DAILY 12/10/15 Insulin Detemir [Levemir Flextouch] 30 unit SQ HS 12/10/15 Insulin Detemir [Levemir Flextouch] 45 unit SQ AM 12/10/15 Repaglinide 1 mg PO DAILY 12/10/15 Nebulizer and Compressor [Comp-Air 1 each MC Q8H PRN #1 each 12/11/15 Elite Comp Nebulizer] Collagenase Clostridium Hist. 1 applic TP DAILY #90 applic 01/12/16 [Santyl -] Prednisone 10 mg PO DAILY #30 tablet 05/31/16 Albuterol 0.083% Nebulizer Bethanie 1 neb NEB Q8H PRN #0 neb 10/22/16 [Ventolin 0.083% Nebulizer Soln -] Albuterol 2.5/Ipratropium 0.5 1 amp NEB QIDR amp 10/22/16 [Duoneb -] Cefuroxime Axetil [Ceftin -] 500 mg PO Q12H #10 tablet 10/22/16 Diltiazem Cd [Cardizem Cd -] 120 mg PO DAILY tab 10/22/16 Enoxaparin [Lovenox -] 40 mg SQ DAILY syr 10/22/16 Guaifenesin AC [Robitussin AC -] 10 ml PO HS PRN #0 ea MDD 20 10/22/16 Insulin Sliding Scale [Novolog 0 vial SQ ACHS units 10/22/16 Vial Sliding Scale -] Lisinopril [Prinivil] 10 mg PO DAILY tablet 10/22/16 predniSONE [Deltasone -] See Taper PO DAILY #26 tablet 10/22/16 Abnormal Lab Results 12/19/17 12/19/17 12/19/17 20:53 21:40 21:40 WBC 16.0 H Absolute Neuts (auto) 12.6 H PT with INR 15.10 H INR 1.34 H POC VBG pO2 55.8 H Mixed VBG HCO3 27.2 H Anion Gap Random Glucose Calcium Total Bilirubin B-Natriuretic Peptide Albumin Urine Protein Urine Glucose (UA) Urine Blood 12/19/17 12/19/17 21:40 22:00 WBC Absolute Neuts (auto) PT with INR INR POC VBG pO2 Mixed VBG HCO3 Anion Gap 7 L Random Glucose 295 H D Calcium 8.1 L Total Bilirubin 1.1 H B-Natriuretic Peptide 536.56 H Albumin 2.5 L Urine Protein 1+ H Urine Glucose (UA) 3+ H Urine Blood 1+ H ASSESSMENT AND PLAN: 1. Altered mental status - Head CT is negative and there is no physical evidence of AMS at this time. No acute changes on EKG, but CXR shows poor inspiratory effort, cardiomegaly and increased interstitial and nodular markng - not significantly different from his CXR done in September,. Though his leukocytosis may be due to steroids (unconfirmed whether still on steroids), his temp is 99.8 - dysphagia predisposes him to aspiration pneumonia. Will treat with rocephin and azithromycin after sepsis workup. It is unclear why he is on home oxygen. Will give a trial dose of IV lasix and monitor urine output, get ECHO, consult cardiology/pulmonary, and vascular surgery for buttock ulcers. Give duoneb and symbicort and do wound care of buttock ulcers. PT consult, aspiration precautions and fall precautions. Treat constipation with enema and miralax. 2. Hypoalbuminemia - Possibly due to combined effects of malnutrition, proteinuria and inflammation associated with comorbid chronic conditions. Will ensure adequate dietary protein intake and also consult pie maker. 3. DM - For now, we will hold the home diabetes drugs and implement sliding scale insulin regimen. Provide comprehensive diabetes care with patient teaching and counseling about the importance of euglycemia, eye care and foot care. 4. Obesity - Will provide patient all the necessary assistance , counseling and positive reinforcement to facilitate weight loss. Consult pie maker. 5. DVT prophylaxis - Lovenox 40 mg SQ q 24 hours. 6. Advance directives - Full code
[2017-12-20] MEDS ORDERED: FUROSEMIDE 40 MG/4 ML INJECTABLE VIAL IVPB ONE (03:13)
[2017-12-20] MEDS ORDERED: CEFTRIAXONE 1 GM in DEXTROSE 5%-WATER - 50 ML IVPB SCH ×2 (03:30→04:30)
[2017-12-20] MEDS ORDERED: SODIUM PHOSPHATE/NA BIPHOS 133 ML ENEMA PR ONE (03:32)
[2017-12-20] MEDS ORDERED: ALBUTEROL SO4 2.5/IPRATROPIUM 0.5 INH SOL 3 ML VIAL.NEB. NEB ONE (03:32)
--- NOTE | 2017-12-20 03:51 | HP ---
CHIEF COMPLAINT: Altered mental status PCP: None HISTORY OF PRESENT ILLNESS: 77 y/o male with a PMHx of HTN, HLD, DM Type 2, COPD, CHF (Diastolic dysfunction ), Ischemic CVA (Residual right sided weakness), and Chronic Dysphagia (Trach in the past) presents with altered mental status for the past few days. 5 days ago, patient felt some Right leg weakness and pain that resolved. Today, While he was moving into a wheel chair, he felt some right leg numbness and his right leg eventually gave out. He did not land on the floor however and was caught by his nurse/aide who slowly lowered him to the ground. Of note, the patient did arrive to the ED with a nurse/aide however this person was not present for my interview. As per chart review, patient has had increasing confusion accompanied with diffuse weakness for the past week, decreased exercise tolerance for the past few days, and worsening appetite. Patient has not had a BM In 3 days. Patient has very audible rhonchi accompanied by wet cough/congestion however he mentions this is very close to his baseline and that he is not experiencing any SOB. He is on home oxygen. Denies any fevers, chills, chest pain, nausea, vomiting, diarrhea, urinary frequency/urgency, dysuria, Dizziness. Of note, patient last saw an eye doctor 6 months ago and was prescribed glasses. He has never seen a diamond selector. 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 Family History: Denies Allergies No Known Allergies Allergy (Verified 12/19/17 18:31) HOME MEDICATIONS: Home Medications Medication Instructions Recorded Escitalopram Oxalate [Lexapro -] 10 mg PO DAILY 12/10/15 Gabapentin 300 mg PO TID 12/10/15 Repaglinide 2 mg PO DAILY 12/10/15 Diltiazem Cd [Cardizem Cd -] 120 mg PO DAILY tab 10/22/16 Amlodipine Besylate 10 mg PO DAILY 12/20/17 Furosemide [Lasix -] 40 mg PO DAILY 12/20/17 Lisinopril [Prinivil] 30 mg PO DAILY 12/20/17 REVIEW OF SYSTEMS CONSTITUTIONAL: Present: weakness, decreased appetite Absent: fever, chills, diaphoresis, malaise, weight change HEENT: Absent: rhinorrhea, nasal congestion, throat pain, throat swelling, difficulty swallowing, mouth swelling, ear pain, eye pain, visual changes CARDIOVASCULAR: Absent: chest pain, syncope, palpitations, irregular heart rate, lightheadedness , peripheral edema RESPIRATORY: Absent: cough, shortness of breath, dyspnea with exertion, orthopnea, wheezing, stridor, hemoptysis GASTROINTESTINAL: Present: constipation Absent: abdominal pain, abdominal distension, nausea, vomiting, diarrhea, melena , hematochezia GENITOURINARY: Absent: dysuria, frequency, urgency, hesitancy, hematuria, flank pain, genital pain MUSCULOSKELETAL: Absent: myalgia, arthralgia, joint swelling, back pain, neck pain SKIN: Absent: rash, itching, pallor HEMATOLOGIC/IMMUNOLOGIC: Absent: easy bleeding, easy bruising, lymphadenopathy, frequent infections ENDOCRINE: Absent: unexplained weight gain, unexplained weight loss, heat intolerance, cold intolerance NEUROLOGIC: Present: Right sided Weakness, Unsteady gait Absent: headache, dizziness, seizure, mental status changes, bladder or bowel incontinence PSYCHIATRIC: Absent: anxiety, depression, suicidal or homicidal ideation, hallucinations. PHYSICAL EXAMINATION Vital Signs - 24 hr 12/19/17 12/19/17 12/19/17 18:24 18:28 22:30 Temperature 99.3 F Pulse Rate 77 74 Pulse Rate [ Apical] Respiratory 16 Rate Blood Pressure 117/66 Blood Pressure [Right Arm] O2 Sat by Pulse 98 100 100 Oximetry (%) 12/19/17 23:25 Temperature 99.8 F H Pulse Rate Pulse Rate [ 85 Apical] Respiratory 21 Rate Blood Pressure Blood Pressure 145/92 [Right Arm] O2 Sat by Pulse 98 Oximetry (%) GENERAL: Awake, alert, and fully oriented, in no acute distress. EYES: PERRL THROAT: Oropharynx clear without exudates. Moist mucous membranes. No Uvula or tongue deviation NECK: Supple, + JVD, No Carotid bruit. LUNGS: Rhonchi heard throughout, Decreased breath sounds at the bases. HEART: Regular rate and rhythm, normal S1 and S2 without murmur. ABDOMEN: Soft, nontender, Distended, Tympanic, + bowel sounds, Umbilical hernia present, no guarding, no rebound MUSCULOSKELETAL: No CVA tenderness. EXTREMITIES: 2+ pulses, No calf tenderness. 2+ peripheral edema, R>L. NEUROLOGICAL: Residual Right facial droop, Otherwise remaining Cranial nerves II -XII intact. Slurred speech. C5-T1 and L4-S1 gross sensation intact. RUE muscle strength 2/5, LUE muscle strength 4/5, RLE muscle strength 1/5, LLE Muscle strength 4/5, Unable to appreciate patellar reflexes PSYCHIATRIC: Cooperative. Good eye contact. Appropriate mood and affect. SKIN: Warm, dry, no rashes or lesions noted. Laboratory Results - last 24 hr 12/19/17 12/19/17 12/19/17 20:53 21:40 21:40 WBC 16.0 H RBC 4.11 Hgb 13.1 Hct 36.9 MCV 89.8 MCH 31.9 MCHC 35.6 RDW 15.0 Plt Count 191 MPV 9.6 D Absolute Neuts (auto) 12.6 H Neutrophils % 78.6 Lymphocytes % 12.4 Monocytes % 8.4 D Eosinophils % 0.4 D Basophils % 0.2 Nucleated RBC % 0 PT with INR 15.10 H INR 1.34 H VBG pH 7.40 POC VBG pCO2 43.1 D POC VBG pO2 55.8 H Mixed VBG HCO3 27.2 H Sodium Potassium Chloride Carbon Dioxide Anion Gap BUN Creatinine Creat Clearance w eGFR Random Glucose Calcium Magnesium Total Bilirubin AST ALT Alkaline Phosphatase Creatine Kinase Creatine Kinase Index CK-MB (CK-2) Troponin I B-Natriuretic Peptide Total Protein Albumin Urine Color Urine Appearance Urine pH Ur Specific [place] Urine Protein Urine Glucose (UA) Urine Ketones Urine Blood Urine Nitrite Urine Bilirubin Urine Urobilinogen Ur Leukocyte Esterase Urine WBC (Auto) Urine RBC (Auto) Ur Epithelial Cells Urine Bacteria Hyaline Casts Urine Mucus Acetone, Qual 12/19/17 12/19/17 12/19/17 21:40 21:40 22:00 WBC RBC Hgb Hct MCV MCH MCHC RDW Plt Count MPV Absolute Neuts (auto) Neutrophils % Lymphocytes % Monocytes % Eosinophils % Basophils % Nucleated RBC % PT with INR INR VBG pH POC VBG pCO2 POC VBG pO2 Mixed VBG HCO3 Sodium 136 Potassium 3.9 Chloride 101 Carbon Dioxide 28 Anion Gap 7 L BUN 16 Creatinine 1.3 Creat Clearance w eGFR 53.82 Random Glucose 295 H D Calcium 8.1 L Magnesium 2.0 Total Bilirubin 1.1 H AST 32 D ALT 36 D Alkaline Phosphatase 89 Creatine Kinase 224 Creatine Kinase Index 0.4 CK-MB (CK-2) < 1.00 Troponin I 0.03 B-Natriuretic Peptide 536.56 H Total Protein 7.0 Albumin 2.5 L Urine Color Viry Urine Appearance Clear Urine pH 5.0 Ur Specific [place] 1.029 Urine Protein 1+ H Urine Glucose (UA) 3+ H Urine Ketones Negative Urine Blood 1+ H Urine Nitrite Negative Urine Bilirubin Negative Urine Urobilinogen 4.0 e.u/dl Ur Leukocyte Esterase Negative Urine WBC (Auto) 7 Urine RBC (Auto) 4 Ur Epithelial Cells Rare Urine Bacteria Rare Hyaline Casts 2 Urine Mucus Rare Acetone, Qual Negative Active Medications Albuterol/Ipratropium (Duoneb -) 1 amp NEB ONCE ONE Stop: 12/20/17 03:33 Budesonide/Formoterol Fumarate (Symbicort 160/4.5mcg -) 2 puff IH BID FLORIN Heparin Sodium (Porcine) (Heparin -) 5,000 unit SQ TID FLORIN Azithromycin 500 mg/ Dextrose 250 mls @ 250 mls/hr IVPB DAILY FLORIN Ceftriaxone Sodium 1 gm/ (Dextrose) 50 mls @ 100 mls/hr IVPB DAILY FLORIN Polyethylene Glycol (Miralax (For Daily Use) -) 17 gm PO BID FLORIN Sodium Phosphate (Fleet Adult Rectal Enema -) 133 ml HI ONCE ONE Stop: 12/20/17 03:33 ASSESSMENT/PLAN: 77 y/o male with a PMHx of HTN, HLD, DM Type 2, COPD, CHF (Diastolic dysfunction ), Ischemic CVA (Residual right sided weakness), and Chronic Dysphagia (Trach in the past) presents with altered mental status and was admitted for sepsis. 1. AMS - Possibly due to Community acquired aspiration pneumonia - Presents with increasing confusion accompanied with diffuse weakness, decreased exercise tolerance, and worsening appetite - WBC 16.0, Can consider other causes of leukocytosis once infection has been ruled out - CXR and Head CT done, pending official read - Blood and Urine cultures pending - Lactic acid pending - Rectal temp ordered - Ordered Azithromycin 500 mg IVPB DAILY - Ordered Ceftriaxone Sodium 1 gm IVPB DAILY - Ordered Duoneb 1 amp NEB - Ordered Symbicort 160/4.5mcg 2 puff IH BID - Physical therapy consulted - Cardiology (Dr. Richards) consulted - Pulmonology (Dr. Patel) consulted - Aspiration and Fall Percautions - SPeech and swallow consult - Would be helpful to call nurse/aide during the day to determine his baseline, home meds, why he is on Home O2 - Will need Med Rec 2. Pulmonary congestion and + JVD - R/O CHF Exacerbation - Echo ordered - Lasix 40mg IV X1 given - Daily weights, Strict I/O's 3. Decubitis Ulcers - Wound care (Dr. Chakraborty) Consulted for wound management 4. Constipation - Patient has not had a BM In 3 days - Ordered Miralax 17 gm PO BID - Ordered Fleet Adult Rectal Enema 5. DM - Hold Home meds - BGM, ISS ACHS 6. FEN - PO Fluids, Will consider restriction if patient is in CHF exacerbation - Lytes WNL - Diabetic diet (Na and cholesterol controlled) 7. PPx - DVT: Heparin 5,000 unit SQ TID Dispo: admit to med-surg Visit type - Emergency Visit Emergency Visit: Yes ED Registration Date: 12/20/17 Care time: The patient presented to the Emergency Department on the above date and was hospitalized for further evaluation of their emergent condition. - New Patient This patient is new to me today: Yes Date on this admission: 12/20/17 - Critical Care Critical Care patient: No Hospitalist Screening - Colonoscopy Questionnaire Colonoscopy Questionnaire: Colonoscopy Questionnaire - Patient: 50 - 75 years old and never had a screening colonoscopy: Unknown History of colon or rectal polyps, or CA: Unknown History of IBD, Crohn's disease or UC: Unknown History of abdominal radiation therapy as a child: Unknown - Relative: 1 with colon or rectal CA, or polyps at age 60 or younger: Unknown Colon or rectal CA diagnosed at age 45 or younger: Unknown Multiple relatives with colon or rectal CA: Unknown - Outcome: Screening Result: Negative Screen
[2017-12-20] MEDS ORDERED: cefTRIAXone SODIUM 1 GM VIAL ONE (04:25)
[2017-12-20] MEDS ORDERED: DEXTROSE 5%-WATER - 50 ML IVPB ONE (04:26)
[2017-12-20] MEDS ORDERED: AZITHROMYCIN IVPB 500 MG in DEXTROSE 5%-WATER - 250 ML IVPB SCH (04:30)
[2017-12-20] MEDS: HEPARIN NA (PORCINE) 5,000 UNITS/ML 1ML VIAL SQ SCH ×3 (06:45→21:11)
[2017-12-20] MEDS: INSULIN SLIDING SCALE (NOVOLOG) 1 VIAL SQ SCH ×4 (06:52→21:18)
[2017-12-20] MEDS ORDERED: INSULIN (NOVOLOG) ASPART 100 UNITS/ML 10ML VIAL ONE ×3 (07:26→21:14)
[2017-12-20] MEDS ORDERED: INSULIN (LEVEMIR) 100 UNITS/ML UNITS SQ ONE (07:26)
[2017-12-20 07:44] LABS: BASO % 0.4 % (0-2.0); EOS % 0.8 % (0-4.5); HEMATOCRIT 36.3 % (35.4-49); HEMOGLOBIN 12.6 GM/dL (11.7-16.9); LYMPH % 13.8 % (8-40); MCHC 34.8 g/dl (32.0-35.9); MEAN CELL VOLUME 89.2 fl (80-96); MEAN PLT VOLUME 9.2 fl (7.5-11.1); MONO % 7.4 % (3.8-10.2); NEUT % 77.6 % (42.8-82.8); PLATELET COUNT 179 K/MM3 (134-434); RBC 4.06 M/mm3 (4.00-5.60); WHITE BLOOD COUNT 15.1 K/mm3 (4.0-10.0)
[2017-12-20 07:58] LABS: ALBUMIN 2.3 g/dl (3.4-5.0); ANION GAP 9 MMOL/L (8-16); BILIRUBIN,TOTAL 1.1 mg/dL (0.2-1.0); BLOOD UREA NITROGEN 12 mg/dL (7-18); CALCIUM 8.1 mg/dL (8.5-10.1); CHLORIDE 100 mmol/L (98-107); CO2 30 mmol/L (21-32); CREATININE 0.8 mg/dL (0.7-1.3); GLUCOSE,RANDOM 226 mg/dL (74-106); MAGNESIUM 1.9 mg/dL (1.8-2.4); POTASSIUM 3.4 mmol/L (3.5-5.1); SGOT/AST 20 U/L (15-37); SGPT/ALT 29 U/L (12-78); SODIUM 139 mmol/L (136-145); TOT PROT 6.7 g/dl (6.4-8.2)
[2017-12-20 07:59] LABS: ALK PHOS 84 U/L (45-117)
[2017-12-20] MEDS ORDERED: POTASSIUM CHLORIDE TABS 10 MEQ TABLET.ER (FP) PO ONE (08:45)
[2017-12-20] MEDS ORDERED: PT OWN MED DRAWER 7, Y5N ONE (08:48)
[2017-12-20] MEDS: POLYETHYLENE GLYCOL 3350 119 GM BTL PO SCH ×2 (09:31→21:11)
--- NOTE | 2017-12-20 09:45 | EKG ---
Test Reason : Blood Pressure : / mmHG Vent. Rate : 091 BPM Atrial Rate : 091 BPM P-R Int : 184 ms QRS Dur : 094 ms QT Int : 354 ms P-R-T Axes : 059 -23 038 degrees QTc Int : 435 ms SINUS RHYTHM WITH MARKED SINUS ARRHYTHMIA WITH OCCASIONAL PREMATURE VENTRICULAR COMPLEXES AND FUSION COMPLEXES OTHERWISE NORMAL ECG Confirmed by Roe Walters MD ([id number]) on 12/20/2017 9:45:19 AM Referred By: Confirmed By:Roe Walters MD
[2017-12-20] MEDS ORDERED: BUDESONIDE/FORMETEROL FUMARATE 160/4.5 mcg INHALER IH SCH (10:00)
--- NOTE | 2017-12-20 11:44 | CONSULT ---
Admitting History and Physical - Primary Care Physician PCP: Yang Mirza - Admission History of Present Illness: Per EMR: 77 y/o male with a PMHx of HTN, HLD, DM Type 2, COPD, CHF (Diastolic dysfunction ), Ischemic CVA (Residual right sided weakness), and Chronic Dysphagia (Trach in the past) presents with altered mental status and was admitted for sepsis. AMS- Possibly due to Community acquired aspiration pneumonia Selected Entries 12/19/17 12/19/17 12/20/17 18:28 23:25 04:47 Breakfast Diet Tolerated Eating (Feeding Independent ) Ability Temperature 99.3 F 99.8 F H 99.2 F 12/20/17 12/20/17 12/20/17 06:39 09:13 09:56 Breakfast 75% Diet Tolerated Fair Eating (Feeding ) Ability Temperature 99.2 F 98.8 F Laboratory Tests 12/19/17 12/20/17 21:40 07:13 WBC 16.0 H 15.1 H Pt seen lunch time, feeding himself independently. Audible upper airway congestion/wheeze. Indefinitely chewing a piece of broccoli. He needed to spit it out, unable to manage. Pt reports that he is on nectar thick liquid at home. 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 Fleeting penetration with clinically coughing with po intake.Risk of aspiration.) - General Mental Status: Awake and Alert, Able to Follow Commands Attention: Intact Ability to Follow Directions: Good Head/Neck Control: WFL - Hearing Hearing: Normal Speech Evaluation - Communication Primary Language: BELGIAN Communication: Yes: Dysarthria Oral Expression Ability: Yes: Mild Impairment - Speech Production Able to Make Needs Known: Yes: Mildly Impaired Intelligibility: Yes: Mildly Impaired - Speech Characteristics Voice Loudness: Normal Voice Pitch: Yes: Normal Voice Phonatory-based Quality: Yes: Vocal Wetness Articulation: Yes: Imprecise - Language/Auditory Comprehension Follows: Yes: 1 Stage Simple Commands Observation: Able to respond to yes/no queries: Yes, Yes/No Confusion: No, Comprehends Conversational Speech: Yes - Language/Verbal Expression Able to Respond to Simple Queries: Yes: WNL Able to Communicate Wants and Needs: Yes: Mildly Impaired - Swallow Evaluation/Bedside Assessment Current Nutritional Intake: Regular, Thin Liquids Dentition: Yes: Adequate (upper), Edentulous (lower) Facial Symmetry at Rest: Facial Droop Right Facial Symmetry on Retraction: Symmetrical Sensation: Normal Against Resistance Opening: Normal Against Resistance Closing: Normal Pucker Lips: Normal Smile: Normal Lingual Movement: Normal, Symmetric Lingual Speed of Movement: Normal Lingual Movement Strgth Against Opposition: Reduced Laryngeal Movement: Labored,delay initiation Labial Seal: WFL Chewing: Impaired A-P Transit: WFL Timing of Swallow: Delayed Coughing/Throat Clear: Yes (with and without food/liquid) Recommendations - Speech Evaluation, Impression/Plan Impression: Audible upper airway congestion. Similar to when I saw him in 2017. Extended mastication. r/o aspiration? - Dysphagia Impressions/Plan Dysphagia Impressions: Risk of Aspiration, Ongoing Evaluation *Silent aspiration: cannot be R/O at bedside Recommendations: MBS w Esophagus - Recommendations Diet Consistency: Dysphagia Minced Medication Administration: Crushed with applesauce Liquids: [place] Thick
--- NOTE | 2017-12-20 13:51 | ECHO ---
Name: BLAIR ALLISON Exam:Adult Echocardiogram Study Date: 12/20/2017 08:21 AM Age: 77 yrs Reason For Study: DIASTOLIC CHF Height: 68 in Weight: 242 lb BSA: 2.2 m2 MMode/2D Measurements & Calculations Ao root diam: 3.4 cm LA dimension: 4.0 cm Doppler Measurements & Calculations MV E max av: 61.8 cm/sec Ao V2 max: 195.8 cm/sec MV A max av: 94.6 cm/sec Ao max P.4 mmHg MV E/A: 0.65 Ao V2 mean: 127.0 cm/sec MV dec time: 0.42 sec Ao mean P.0 mmHg Ao V2 VTI: 31.2 cm AI P1/2t: 758.0 msec AI max av: 133.0 cm/sec LV V1 max P.4 mmHg AI max P.1 mmHg LV V1 mean P.8 mmHg LV V1 max: 135.6 cm/sec AI dec slope: 51.4 cm/sec2 LV V1 mean: 90.3 cm/sec LV V1 VTI: 24.4 cm Med Peak E' Av: 7.3 cm/sec Med E/e': 8.5 Lat Peak E' Av: 7.7 cm/sec Lat E/e': 8.0 Procedure A complete two-dimensional transthoracic echocardiogram was performed (2D, M-mode, Doppler and color flow Doppler). The study was technically limited with all images being suboptimal in quality. Left Ventricle The left ventricular size, thickness and function are normal. Ejection Fraction = 60%. The transmitra l spectral Doppler flow pattern is suggestive of impaired LV relaxation. The left ventricular wall carlos on is normal. Right Ventricle The right ventricle is normal in size and function. Atria Normal left and right atrial size and function. Mitral Valve The mitral valve is grossly normal. There is trace mitral regurgitation. Tricuspid Valve The tricuspid valve is not well visualized. There is trace tricuspid regurgitation. There was insuffi cient TR detected to calculate RV systolic pressure. Aortic Valve There is moderate aortic sclerosis.;. Pulmonic Valve The pulmonic valve is not well visualized. Great Vessels The aortic root is not well visualized. Pericardium/Pleura There is no pericardial effusion. There is no pleural effusion. Interpretation Summary The study was technically limited with all images being suboptimal in quality. The left ventricular size, thickness and function are normal Ejection Fraction = 60%. There is trace mitral regurgitation. There is trace tricuspid regurgitation. There was insufficient TR detected to calculate RV systolic pressure. There is moderate aortic sclerosis.; MD Roe Walters 12/20/2017 11:23 AM
--- NOTE | 2017-12-20 14:18 | PN ---
Teaching Attending Note Name of Resident: Roman Goins ATTENDING PHYSICIAN STATEMENT I saw and evaluated the patient. I reviewed the resident's note and discussed the case with the resident. I agree with the resident's findings and plan as documented. SUBJECTIVE: No fever or chills, denies SOB or CP . he reports being at baseline. reports ambulating with a cane at home, but mainly in bed. is not at bedisde to provide details about incident . he denies ASH , change in vision or increasing weakness. he reports R sided weakness at base line. he denies palpitaitons . has chronic cough . uses O2 at home . constipated x 1 wek OBJECTIVE: NAd , awake, cooperative, alert. mild L lower facial droop. EOMI, round pupils . tongue at midline CV: RRR, no MRG, No JVD Lungs: upper airway noises and gargling, good air entry , no crackles or wheezes Abd: distended , tympanic, NT. reducible umbilical hernia Ext: 1+ edema and discoloration on lower legs with varicose veins. skin: stage 2 decub on both buttucks . No signs of infection Neuro : EOMi, round pupils , L lower facial droop. tongue at mid line. strenght : RUE: 0/5 in shoulder shrug and abduction , biceps and triceps . can move his fingers slightly LUE: 5/5 shoulder shrug, abduction , biceps and triceps RLE: 0/5 in hip flexion , knee flexion/extension , 2/5 ankle dorsiflexion and ca wiggle his big toe only LLE: 4/5 hip flexion . 4/5 knee flexion and extension. 5/5 ankle dorsiflexion and plantar flexion reflexes : Right : 2+ knee jerk , + babinski's , 2+ biceps Left: 1 + knee jerk, 2+ biceps . + babinski's ASSESSMENT AND PLAN: 77 y/o man with h/o COPD on O 2, DM, HTn, HLP, h/o Trach , stroke with R sided residual weakness, ascending aortic aneurysm and dysphagea who presented with AMS and a fall with no LOC per family . 1- AMS: at this time his metnal status is at his base line , but will call and confirm. I do not suspect a new stroke . although he has elevated WBC, there is no certain evidence of infection. - monitor 2- Leukocytosis: not clear of etiology. will confirm his meds list and ask if he is onchronic steroids . Cxray with poor quality but does nto indicate infltrates, UA does not indicate UTI and he has no urinary sx. although abd is distended , lactate is NL. - hold off Abx - trend WBC - follow blood and urine cultures 3- H/o COPd: currently breathing comfortably. No increase in O2 requirements. No wheezes on exam ( upper resp noises ) . not in COPD exacerbation - Nebs and inhalers - will confirm his home meds - cont O2 - add Mucomyst 4- H/o diastolic CHF: unlikely in CHF exaerbation . - monitor - confirm and resume his home meds ( lasix , lisinopril, andnorvasc ) - echo reviewed. 5- dysphagea : d/w speech. check MBS . down grade diet 6- DM : cont SSI . A1c 7.8 7- /o stroke: will confirm if he is on ASA and statin . will monitor
--- NOTE | 2017-12-20 14:28 | PN ---
Progress Note (short form) - Note Progress Note: Called to evaluate 77 yo male with posterior wounds x 2. Patient not in room as he is in radiology get a test performed. A member of the Surgery Team will have to come back and evaluate later.
[2017-12-20] MEDS ORDERED: SENNOSIDES/DOCUSATE COMBO (SENNA PLUS) TABLET (UD) PO PRN (14:53)
[2017-12-20] MEDS ORDERED: ACETYLCYSTEINE 20% 200MG/ML 4 ML VIAL *FOR ORAL / INH USE ONLY NEB SCH (16:00)
--- NOTE | 2017-12-20 16:33 | PN ---
Physical Exam: SUBJECTIVE: Patient seen and examined at bedside. No acute complaints, denies SOB/dyspnea, denies CP, f/c, n/v/c/d. OBJECTIVE: Vital Signs Period Temp Pulse Resp BP Sys/Pham Pulse Ox Last 24 Hr 98.8 F-99.8 F 74-97 16-21 117-145/66-93 98-100 GENERAL: A&Ox3, NAD HEAD: NC/AT EYES: PERRLA, EOMI, sclera anicteric NECK: Trachea midline, full range of motion, supple, no JVD LUNGS: tracheal breath sound, coarse ronchi diffusely HEART: normal S1S2, RRR, no m/r/g ABDOMEN: distended, tympanitic, diffusely tender, reducible umbilical hernia EXTREMITIES: 2+ pulses, warm, well-perfused, 1+ pitting edema in b/l LE NEUROLOGICAL: -CN exam notable for significant right and mild left facial droop, dysarthria, otherwise intact -strength 4/5 in LUE and LLE, 0/5 in proximal RUE, 2/5 in distal RUE, 0/5 in proximal RLE, 1/5 in distal RLE -sensation grossly intact -could not evaluate FtN or HtS -could not elicit biceps or patellar reflexes -upgoing plantars b/l R>L SKIN: stage 2 decubitus ulcers on buttocks b/l, non-infected appearing Laboratory Results - last 24 hr 12/19/17 12/19/17 12/19/17 20:53 21:40 21:40 WBC 16.0 H RBC 4.11 Hgb 13.1 Hct 36.9 MCV 89.8 MCH 31.9 MCHC 35.6 RDW 15.0 Plt Count 191 MPV 9.6 D Absolute Neuts (auto) 12.6 H Neutrophils % 78.6 Lymphocytes % 12.4 Monocytes % 8.4 D Eosinophils % 0.4 D Basophils % 0.2 Nucleated RBC % 0 PT with INR 15.10 H INR 1.34 H VBG pH 7.40 POC VBG pCO2 43.1 D POC VBG pO2 55.8 H Mixed VBG HCO3 27.2 H Sodium Potassium Chloride Carbon Dioxide Anion Gap BUN Creatinine Creat Clearance w eGFR POC Glucometer Random Glucose Hemoglobin A1c % Lactic Acid Calcium Phosphorus Magnesium Total Bilirubin AST ALT Alkaline Phosphatase Creatine Kinase Creatine Kinase Index CK-MB (CK-2) Troponin I B-Natriuretic Peptide Total Protein Albumin Urine Color Urine Appearance Urine pH Ur Specific [place] Urine Protein Urine Glucose (UA) Urine Ketones Urine Blood Urine Nitrite Urine Bilirubin Urine Urobilinogen Ur Leukocyte Esterase Urine WBC (Auto) Urine RBC (Auto) Ur Epithelial Cells Urine Bacteria Hyaline Casts Urine Mucus Acetone, Qual 12/19/17 12/19/17 12/19/17 21:40 21:40 22:00 WBC RBC Hgb Hct MCV MCH MCHC RDW Plt Count MPV Absolute Neuts (auto) Neutrophils % Lymphocytes % Monocytes % Eosinophils % Basophils % Nucleated RBC % PT with INR INR VBG pH POC VBG pCO2 POC VBG pO2 Mixed VBG HCO3 Sodium 136 Potassium 3.9 Chloride 101 Carbon Dioxide 28 Anion Gap 7 L BUN 16 Creatinine 1.3 Creat Clearance w eGFR 53.82 POC Glucometer Random Glucose 295 H D Hemoglobin A1c % Lactic Acid Calcium 8.1 L Phosphorus Magnesium 2.0 Total Bilirubin 1.1 H AST 32 D ALT 36 D Alkaline Phosphatase 89 Creatine Kinase 224 Creatine Kinase Index 0.4 CK-MB (CK-2) < 1.00 Troponin I 0.03 B-Natriuretic Peptide 536.56 H Total Protein 7.0 Albumin 2.5 L Urine Color Viry Urine Appearance Clear Urine pH 5.0 Ur Specific [place] 1.029 Urine Protein 1+ H Urine Glucose (UA) 3+ H Urine Ketones Negative Urine Blood 1+ H Urine Nitrite Negative Urine Bilirubin Negative Urine Urobilinogen 4.0 e.u/dl Ur Leukocyte Esterase Negative Urine WBC (Auto) 7 Urine RBC (Auto) 4 Ur Epithelial Cells Rare Urine Bacteria Rare Hyaline Casts 2 Urine Mucus Rare Acetone, Qual Negative 12/20/17 12/20/17 12/20/17 06:48 07:13 07:13 WBC 15.1 H RBC 4.06 Hgb 12.6 Hct 36.3 MCV 89.2 MCH 31.0 MCHC 34.8 RDW 15.0 Plt Count 179 MPV 9.2 Absolute Neuts (auto) 11.7 H Neutrophils % 77.6 Lymphocytes % 13.8 Monocytes % 7.4 Eosinophils % 0.8 D Basophils % 0.4 Nucleated RBC % 0 PT with INR INR VBG pH POC VBG pCO2 POC VBG pO2 Mixed VBG HCO3 Sodium 139 Potassium 3.4 L Chloride 100 Carbon Dioxide 30 Anion Gap 9 BUN 12 Creatinine 0.8 Creat Clearance w eGFR > 60 POC Glucometer 243 Random Glucose 226 H D Hemoglobin A1c % Lactic Acid Calcium 8.1 L Phosphorus 2.0 L D Magnesium 1.9 Total Bilirubin 1.1 H AST 20 D ALT 29 Alkaline Phosphatase 84 Creatine Kinase Creatine Kinase Index CK-MB (CK-2) Troponin I B-Natriuretic Peptide Total Protein 6.7 Albumin 2.3 L Urine Color Urine Appearance Urine pH Ur Specific [place] Urine Protein Urine Glucose (UA) Urine Ketones Urine Blood Urine Nitrite Urine Bilirubin Urine Urobilinogen Ur Leukocyte Esterase Urine WBC (Auto) Urine RBC (Auto) Ur Epithelial Cells Urine Bacteria Hyaline Casts Urine Mucus Acetone, Qual 12/20/17 12/20/17 12/20/17 07:13 07:20 11:58 WBC RBC Hgb Hct MCV MCH MCHC RDW Plt Count MPV Absolute Neuts (auto) Neutrophils % Lymphocytes % Monocytes % Eosinophils % Basophils % Nucleated RBC % PT with INR INR VBG pH POC VBG pCO2 POC VBG pO2 Mixed VBG HCO3 Sodium Potassium Chloride Carbon Dioxide Anion Gap BUN Creatinine Creat Clearance w eGFR POC Glucometer 287 Random Glucose Hemoglobin A1c % 7.6 H D Lactic Acid 1.0 Calcium Phosphorus Magnesium Total Bilirubin AST ALT Alkaline Phosphatase Creatine Kinase Creatine Kinase Index CK-MB (CK-2) Troponin I B-Natriuretic Peptide Total Protein Albumin Urine Color Urine Appearance Urine pH Ur Specific [place] Urine Protein Urine Glucose (UA) Urine Ketones Urine Blood Urine Nitrite Urine Bilirubin Urine Urobilinogen Ur Leukocyte Esterase Urine WBC (Auto) Urine RBC (Auto) Ur Epithelial Cells Urine Bacteria Hyaline Casts Urine Mucus Acetone, Qual Active Medications Generic Name Dose Route Start Last Admin Trade Name Freq PRN Reason Stop Dose Admin Acetylcysteine 200 mg 12/20/17 16:00 Mucomyst 20 Oral / Inh Use Only* NEB RQID FLORIN Budesonide/Formoterol Fumarate 2 puff 12/20/17 10:00 12/20/17 09:30 Symbicort 160/4.5mcg - IH 2 puff BID FLORIN Administration Heparin Sodium (Porcine) 5,000 unit 12/20/17 06:00 12/20/17 13:09 Heparin - SQ 5,000 unit TID FLORIN Administration Insulin Aspart 1 vial 12/20/17 07:00 12/20/17 12:01 Novolog Vial Sliding Scale - SQ 6 units ACHS FLORIN Administration Protocol Polyethylene Glycol 17 gm 12/20/17 10:00 12/20/17 09:31 Miralax (For Daily Use) - PO 17 grams BID FLORIN Administration Senna/Docusate Sodium 2 tablet 12/20/17 14:53 Pericolace - PO HS PRN CONSTIPATION ASSESSMENT/PLAN: 77 y/o M w/ PMHx CVA w/ residual R-sided deficits, chronic dysphagia w/ prior trach, COPD on home O2, diastolic CHF, T2DM, HTN, HLD Ischemic CVA (Residual right sided weakness), admitted for AMS and near-fall following progressing weakness observed by DIRECT[employer] #AMS - mental status at baseline, will confirm w/ family - leukocytosis but no apparent infection source - CXR and Head CT demonstrated no acute pathology - BCx/UCx pending - Lactate 1.0 (wnl) - ABx d/c'd - home Lexapro 10 daily - SPeech and swallow consult - Would be helpful to call nurse/aide during the day to determine his baseline, home meds, why he is on Home O2 #leukocytosis -WBC 16 on presentation, 15.1 in morning -no clear infection source -no home steroid use -f/u cultures #COPD - no infiltrate on CXR - no home steroids - Duoneb 1 amp NEB - Symbicort 160/4.5mcg 2 puff IH BID - started mucomyst #CHF - no evidence of exacerbation - echo: 60% EF, normal LV, trace MR, trace TR, moderate - home meds: lasix 40, lisinopril 30, norvasc 10, dilt 120 daily #Constipation/distention - pending Abd XR #dysphagia -S/S evaluated -ordered modified barium swallow -dyphagia chopped diet w/ nectar liquid #Decubitis Ulcers - Wound care (Dr. Chakraborty) Consulted for wound management #DM - Hold Home meds - BGM, ISS ACHS - A1C 7.6 #FEN - no IVF - lytes WNL - dyphagia chopped diet w/ nectar liquid # PPx - DVT: Heparin 5,000 unit SQ TID # Dispo: admit to med-surg Visit type - Emergency Visit Emergency Visit: No - New Patient This patient is new to me today: Yes Date on this admission: 12/20/17 - Critical Care Critical Care patient: No
--- NOTE | 2017-12-20 16:47 | PN ---
Progress Note (short form) - Note Progress Note: PULMONARY CONSULTATION DICTATED 12/20/17 IMP CHEST CONGESTION LIKELY COPD AMS DYSPHAGIA S/P CVA WITH R SIDED WEAKNESS WEAKNESS DIASTOLIC HF PLAN INHALED BRONCHODILATORS SUPPLEMENTAL O2 CHEST PT ASPIRATION PRECAUTIONS F/U CHEST X-RAY DVT PROPHYLAXIS DR MIGUEL Problem List - Problems (1) COPD (chronic obstructive pulmonary disease) Code(s): J44.9 - CHRONIC OBSTRUCTIVE PULMONARY DISEASE, UNSPECIFIED (2) H/O: CVA (cerebrovascular accident) Code(s): Z86.73 - PRSNL HX OF TIA (TIA), AND CEREB INFRC W/O RESID DEFICITS (3) Bronchitis Code(s): J40 - BRONCHITIS, NOT SPECIFIED ACUTE OR CHRONIC (4) Cough Code(s): R05 - COUGH (5) Hypertension Code(s): I10 - ESSENTIAL (PRIMARY) HYPERTENSION
[2017-12-20] MEDS ORDERED: ALBUTEROL SO4 2.5/IPRATROPIUM 0.5 INH SOL 3 ML VIAL.NEB. NEB PRN (16:48)
[2017-12-20] MEDS: LISINOPRIL 20 MG TABLET (FP) PO SCH (18:02)
[2017-12-20] MEDS: amLODIPine BESYLATE 10 MG TABLET (FP) PO SCH (18:03)
[2017-12-20] MEDS: dilTIAZem HCL 60 MG TABLET (FP) PO SCH (18:03)
[2017-12-20] MEDS: ESCITALOPRAM OXALATE 10 MG TABLET (FP) PO SCH (18:03)
[2017-12-20] MEDS: FUROSEMIDE 40 MG TABLET (FP) PO SCH (18:03)
--- NOTE | 2017-12-20 19:36 | CONS ---
PULMONARY CONSULTATION DATE OF CONSULTATION: 12/20/2017 REFERRING PHYSICIAN: Yang Mirza MD The patient is a 77-year-old black male known to me from previous hospitalization with a past medical history of hypertension, hyperlipidemia, type 2 diabetes mellitus, suspected COPD, diastolic dysfunction, ischemic CVA with residual right-sided weakness, chronic dysphagia status post tracheostomy, admitted to [facility] with altered mental status for a few days. Apparently, five days prior to admission, the patient started feeling some right lower extremity weakness and pain which resolved. Apparently, prior to his admission, while moving in his wheelchair, he felt some pain and right lower extremity numbness, and the leg eventually gave out. He denied any loss of consciousness. The patient was brought to the emergency room with the above. Of note is that the patient has also been having decreased exercise tolerance over the past few days, decreased p.o. intake as well as increasing chest congestion and cough. He states he has been using an inhaler at home which has not been offering much improvement. Of note, he also uses supplemental O2 p.r.n. at home. On admission, the patient was noted to have audible rhonchi with a wet, congested cough. Apparently, this is close to his baseline which has been present since his tracheostomy was removed. He is a nonsmoker. He has a history of smoking but quit years ago. PAST MEDICAL HISTORY: Again, this includes suspected COPD, CHF, diastolic dysfunction, ischemic CVA with right-sided weakness, hypertension, hyperlipidemia, diabetes. REVIEW OF SYSTEMS: Positive for mild shortness of breath. Positive for mild chest congestion. No fever. No chills. No hemoptysis. No abdominal pain. Positive weakness. SOCIAL HISTORY: Born in [facility]. Moved to the [place] greater than 30 years ago. History of smoking. 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 CURRENT MEDICATIONS: Symbicort, heparin, MiraLAX, Jovana-Colace, NovoLog and Mucomyst. PHYSICAL EXAMINATION: General: The patient is an obese male, wide awake, alert, in no acute respiratory distress. Vital Signs: He is currently afebrile, blood pressure 122/66, respiratory rate is 20, O2 saturation is 98% on 3 L. HEENT: Normocephalic, atraumatic. Neck: Supple. Heart: Regular. S1, S2. Chest: A few scattered bilateral rhonchi. Abdomen: Soft. Bowel sounds are positive. Extremities: No cyanosis or edema. LABORATORY DATA: WBC is 15.1, hemoglobin 12.6, hematocrit 36.3 with a platelet count of 179,000. INR is 1.34. Blood gas not performed. Electrolytes: BUN 12, creatinine 0.8. BNP is 536. Hemoglobin A1c is 7.6. Chest x-ray reveals no acute infiltrates and/or effusions. Swallowing evaluation: No evidence of aspiration. Echocardiogram: Moderate aortic sclerosis. Normal left ventricular size and function. Insufficient tricuspid regurgitation to calculated RV systolic pressure. RV is normal in size and function. IMPRESSION: 1. Chest congestion, possible aspiration. 2. Likely underlying chronic obstructive pulmonary disease. 3. Dysphagia. 4. Altered mental status. 5. Diastolic heart failure. PLAN: Inhaled bronchodilators, supplemental O2, chest PT. Obtain followup chest x-rays. Dysphagia diet. BLAIR MIGUEL M.D. [id number]
[2017-12-20] MEDS: ARFORMOTEROL TARTRATE 15 MCG/2 ML VIAL NEB SCH (20:11)
[2017-12-20] MEDS: GABAPENTIN 300 MG CAPSULE (FP) PO SCH (21:11)
[2017-12-21] MEDS: HEPARIN NA (PORCINE) 5,000 UNITS/ML 1ML VIAL SQ SCH ×3 (06:14→21:55)
[2017-12-21] MEDS: GABAPENTIN 300 MG CAPSULE (FP) PO SCH ×3 (06:14→21:55)
[2017-12-21] MEDS: INSULIN SLIDING SCALE (NOVOLOG) 1 VIAL SQ SCH ×4 (06:32→22:05)
[2017-12-21] MEDS ORDERED: INSULIN (NOVOLOG) ASPART 100 UNITS/ML 10ML VIAL ONE ×3 (06:38→21:54)
[2017-12-21] MEDS: ARFORMOTEROL TARTRATE 15 MCG/2 ML VIAL NEB SCH (07:45)
[2017-12-21 07:53] LABS: BASO % 0.6 % (0-2.0); EOS % 0.8 % (0-4.5); HEMATOCRIT 39.2 % (35.4-49); HEMOGLOBIN 13.7 GM/dL (11.7-16.9); LYMPH % 15.2 % (8-40); MCH 31.3 pg (25.7-33.7); MEAN CELL VOLUME 89.2 fl (80-96); MEAN PLT VOLUME 9.4 fl (7.5-11.1); MONO % 10.5 % (3.8-10.2); NEUT % 72.9 % (42.8-82.8); PLATELET COUNT 208 K/MM3 (134-434); RBC 4.39 M/mm3 (4.00-5.60); RDW 15.3 % (11.9-15.9); WHITE BLOOD COUNT 13.5 K/mm3 (4.0-10.0)
[2017-12-21 08:40] LABS: CHLORIDE 99 mmol/L (98-107); POTASSIUM 3.8 mmol/L (3.5-5.1); SODIUM 137 mmol/L (136-145)
[2017-12-21 08:46] LABS: ANION GAP 10 MMOL/L (8-16); BLOOD UREA NITROGEN 12 mg/dL (7-18); CALCIUM 8.7 mg/dL (8.5-10.1); CO2 28 mmol/L (21-32); CREATININE 0.9 mg/dL (0.7-1.3); GLUCOSE,RANDOM 272 mg/dL (74-106)
--- NOTE | 2017-12-21 09:06 | CONSULT ---
- Consultation REQUESTING PROVIDER: CONSULT REQUEST: We have been asked to surgically evaluate this patient for chronic decubitus. PCP:Geo Crane HISTORY OF PRESENT ILLNESS: 77 year old male with a significant PMH of HTN, HLD , DM, stroke with residual L sided weakness and dysphagia admitted for weakness and decline in mental status. Patient states he has has the decubitus ulcer for 3 years and has been under the care of his aide for this. PMHx: obtained from patient chart. Anemia: No Asthma: No Cancer: No Cardiac Disorders: Yes CVA: Yes (rt side hemiparesis) COPD: No CHF: Yes Dementia: No Diabetes: Yes GI Disorders: No Disorders: No HTN: Yes Hypercholesterolemia: Yes Liver Disease: No Seizures: No Thyroid Disease: No - Surgical History Abdominal Surgery: No Appendectomy: No Cardiac Surgery: No Cholecystectomy: No Lung Surgery: No Neurologic Surgery: No Orthopedic Surgery: No Previous tracheostomy Home Medications Medication Instructions Recorded Escitalopram Oxalate [Lexapro -] 10 mg PO DAILY 12/10/15 Gabapentin 300 mg PO TID 12/10/15 Repaglinide 2 mg PO BID 12/10/15 Diltiazem Cd [Cardizem Cd -] 120 mg PO DAILY tab 10/22/16 Amlodipine Besylate 10 mg PO DAILY 12/20/17 Azelastine HCl 205.5 mcg NS BID 12/20/17 Ergocalciferol (Vitamin D2) 50,000 unit PO WEEKLY 12/20/17 [Vitamin D2] Furosemide [Lasix -] 40 mg PO DAILY 12/20/17 Lidocaine 5% Top. Ointment 1 applic TP TID 12/20/17 [Xylocaine 5% Top. Ointment] Lisinopril [Prinivil] 30 mg PO DAILY 12/20/17 Vital Signs Period Temp Pulse Resp BP Sys/Pham Pulse Ox Last 24 Hr 98.7 F-99.4 F 80-107 18-24 124-145/64-78 98 CBC, BMP 12/21/17 06:30 12/21/17 06:30 REVIEW OF SYSTEMS: no obtained PE GENERAL: A&O, NAD HEAD: NC/AT EYES: sclera anicteric LUNGS: audible tracheal breath sound, coarse ronchi diffusely on NC SKIN: stage 2 decubitus ulcers on buttocks b/l mostly pink base with some smaller areas of red beefy base, @8x6 on right and @ 4x3 on left. surrounding tissue intact with no evidence of tracking erythema, collection or infection. non foul smelling. Vital Signs Temperature 99.1 F 12/21/17 07:31 Pulse Rate 80 12/21/17 07:31 Respiratory Rate 18 12/21/17 07:31 Blood Pressure 128/64 12/21/17 07:31 O2 Sat by Pulse Oximetry (%) 98 12/20/17 20:54 Lab Results WBC 13.5 K/mm3 (4.0-10.0) H 12/21/17 06:30 RBC 4.39 M/mm3 (4.00-5.60) 12/21/17 06:30 Hgb 13.7 GM/dL (11.7-16.9) 12/21/17 06:30 Hct 39.2 % (35.4-49) 12/21/17 06:30 MCV 89.2 fl (80-96) 12/21/17 06:30 MCHC 35.0 g/dl (32.0-35.9) 12/21/17 06:30 RDW 15.3 % (11.9-15.9) 12/21/17 06:30 Plt Count 208 K/MM3 (134-434) 12/21/17 06:30 Sodium 137 mmol/L (136-145) 12/21/17 06:30 Potassium 3.8 mmol/L (3.5-5.1) 12/21/17 06:30 Chloride 99 mmol/L (98-107) 12/21/17 06:30 Carbon Dioxide 28 mmol/L (21-32) 12/21/17 06:30 Anion Gap 10 MMOL/L (8-16) 12/21/17 06:30 BUN 12 mg/dL (7-18) 12/21/17 06:30 Creatinine 0.9 mg/dL (0.7-1.3) 12/21/17 06:30 Random Glucose 272 mg/dL (74-106) H D 12/21/17 06:30 Calcium 8.7 mg/dL (8.5-10.1) 12/21/17 06:30 INR 1.34 (0.83-1.09) H 12/19/17 21:40 Problem List - Problems (1) Decubitus ulcer Assessment/Plan: stage 2 decubitus ulcers on b/l buttocks, Stable with no need for surgical debridement. 1) Contniue Aleven at all times 2) Offload area with Q2 positioning 3) Reconsult surgery PRN Evaluation and plan discussed with Dr Chakraborty. Code(s): L89.90 - PRESSURE ULCER OF UNSPECIFIED SITE, UNSPECIFIED STAGE
--- NOTE | 2017-12-21 09:11 | PN ---
Teaching Attending Note Name of Resident: Roman Goins ATTENDING PHYSICIAN STATEMENT I saw and evaluated the patient. I reviewed the resident's note and discussed the case with the resident. I agree with the resident's findings and plan as documented. SUBJECTIVE: Patient is feeling better today, more awake and alert , On oxygen. OBJECTIVE: Vital Signs Temperature 99.1 F 12/21/17 07:31 Pulse Rate 80 12/21/17 07:31 Respiratory Rate 18 12/21/17 07:31 Blood Pressure 128/64 12/21/17 07:31 O2 Sat by Pulse Oximetry (%) 98 12/20/17 20:54 CBCD WBC 13.5 K/mm3 (4.0-10.0) H 12/21/17 06:30 RBC 4.39 M/mm3 (4.00-5.60) 12/21/17 06:30 Hgb 13.7 GM/dL (11.7-16.9) 12/21/17 06:30 Hct 39.2 % (35.4-49) 12/21/17 06:30 MCV 89.2 fl (80-96) 12/21/17 06:30 MCHC 35.0 g/dl (32.0-35.9) 12/21/17 06:30 RDW 15.3 % (11.9-15.9) 12/21/17 06:30 Plt Count 208 K/MM3 (134-434) 12/21/17 06:30 MPV 9.4 fl (7.5-11.1) 12/21/17 06:30 CMP Sodium 137 mmol/L (136-145) 12/21/17 06:30 Potassium 3.8 mmol/L (3.5-5.1) 12/21/17 06:30 Chloride 99 mmol/L (98-107) 12/21/17 06:30 Carbon Dioxide 28 mmol/L (21-32) 12/21/17 06:30 Anion Gap 10 MMOL/L (8-16) 12/21/17 06:30 BUN 12 mg/dL (7-18) 12/21/17 06:30 Creatinine 0.9 mg/dL (0.7-1.3) 12/21/17 06:30 Creat Clearance w eGFR > 60 (>60) 12/21/17 06:30 Random Glucose 272 mg/dL (74-106) H D 12/21/17 06:30 Calcium 8.7 mg/dL (8.5-10.1) 12/21/17 06:30 Total Bilirubin 1.1 mg/dL (0.2-1.0) H 12/20/17 07:13 AST 20 U/L (15-37) D 12/20/17 07:13 ALT 29 U/L (12-78) 12/20/17 07:13 Alkaline Phosphatase 84 U/L (45-117) 12/20/17 07:13 Total Protein 6.7 g/dl (6.4-8.2) 12/20/17 07:13 Albumin 2.3 g/dl (3.4-5.0) L 12/20/17 07:13 CARDIAC ENZYMES Creatine Kinase 224 IU/L (39-308) 12/19/17 21:40 Troponin I 0.03 ng/ml (0.00-0.05) 12/19/17 21:40 Current Medications Generic Name Dose Route Start Last Admin Trade Name Brayan PRN Reason Stop Dose Admin Amlodipine Besylate 10 mg 12/20/17 17:15 12/20/17 18:03 Norvasc - PO 10 mg DAILY FLORIN Administration Arformoterol Tartrate 1 amp 12/20/17 20:00 12/21/17 07:45 Brovana (Restricted To Pulmonology/Resp) - NEB 1 amp RBID FLORIN Administration Diltiazem HCl 120 mg 12/20/17 17:15 12/20/17 18:03 Cardizem - PO 120 mg DAILY FLORIN Administration Escitalopram Oxalate 10 mg 12/20/17 17:30 12/20/17 18:03 Lexapro - PO 10 mg DAILY FLORIN Administration Furosemide 40 mg 12/20/17 17:30 12/20/17 18:03 Lasix - PO 40 mg DAILY FLORIN Administration Gabapentin 300 mg 12/20/17 22:00 12/21/17 06:14 Neurontin - PO 300 mg TID FLORIN Administration Heparin Sodium (Porcine) 5,000 unit 12/20/17 06:00 12/21/17 06:14 Heparin - SQ 5,000 unit TID FLORIN Administration Insulin Aspart 1 vial 12/20/17 07:00 12/21/17 06:32 Novolog Vial Sliding Scale - SQ 6 units ACHS FLORIN Administration Protocol Lisinopril 30 mg 12/20/17 17:15 12/20/17 18:02 Prinivil PO 30 mg DAILY FLORIN Administration Polyethylene Glycol 17 gm 12/20/17 10:00 12/20/17 21:11 Miralax (For Daily Use) - PO 17 grams BID FLORIN Administration Senna/Docusate Sodium 2 tablet 12/20/17 14:53 Pericolace - PO HS PRN CONSTIPATION Home Medications Medication Instructions Recorded Escitalopram Oxalate [Lexapro -] 10 mg PO DAILY 12/10/15 Gabapentin 300 mg PO TID 12/10/15 Repaglinide 2 mg PO BID 12/10/15 Diltiazem Cd [Cardizem Cd -] 120 mg PO DAILY tab 10/22/16 Amlodipine Besylate 10 mg PO DAILY 12/20/17 Azelastine HCl 205.5 mcg NS BID 12/20/17 Ergocalciferol (Vitamin D2) 50,000 unit PO WEEKLY 12/20/17 [Vitamin D2] Furosemide [Lasix -] 40 mg PO DAILY 12/20/17 Lidocaine 5% Top. Ointment 1 applic TP TID 12/20/17 [Xylocaine 5% Top. Ointment] Lisinopril [Prinivil] 30 mg PO DAILY 12/20/17 Microbiology 12/19/17 21:40 Blood - Peripheral Venous Blood Culture - Preliminary NO GROWTH OBTAINED AFTER 24 HOURS, INCUBATION TO CONTINUE FOR 4 DAYS. 12/19/17 21:40 Blood - Peripheral Venous Blood Culture - Preliminary NO GROWTH OBTAINED AFTER 24 HOURS, INCUBATION TO CONTINUE FOR 4 DAYS. PE: per resident's note echo reviewed. ASSESSMENT AND PLAN: Patient is a 77 y/o male with PMHx of COPD on O2l at home , T2dm, HTN, HLP, h/ o Trach , stroke with Right sided residual weakness, ascending aortic aneurysm and dysphagia who presented with AMS and a fall with no LOC as per family . # AMS due to metabolic encephalopathy : patient is back to his baseline now , patient has elevated WBC, r/o source of infection. # Acute Leukocytosis:patient is on steroids at home, No infection source is noted #Hx of COPD:continue home meds. currently breathing comfortably. continue Nebs and inhalers. #Diastolic CHF: resume his home meds ( lasix , lisinopril, and norvasc ) # dysphagia :will get MBS . down grade diet # DM : cont SSI . A1c 7.8 , conitnue SS with coverage # H/o stroke: will confirm if he is on ASA and statin . # Constipation continue with Miralax, Senna continue DVT Px: Heparin
[2017-12-21] MEDS: ESCITALOPRAM OXALATE 10 MG TABLET (FP) PO SCH (10:11)
[2017-12-21] MEDS: FUROSEMIDE 40 MG TABLET (FP) PO SCH (10:11)
[2017-12-21] MEDS: dilTIAZem HCL 60 MG TABLET (FP) PO SCH (10:11)
[2017-12-21] MEDS: amLODIPine BESYLATE 10 MG TABLET (FP) PO SCH (10:11)
[2017-12-21] MEDS: LISINOPRIL 20 MG TABLET (FP) PO SCH (10:12)
[2017-12-21] MEDS: POLYETHYLENE GLYCOL 3350 119 GM BTL PO SCH ×2 (11:07→21:59)
--- NOTE | 2017-12-21 12:05 | PN ---
Progress Note, PRACTICE PERFORMANCE MANAGER - Note Progress Note: Selected Entries 12/20/17 12/20/17 12/20/17 04:47 06:39 09:13 Breakfast Lunch Supper Temperature 99.2 F 99.2 F 98.8 F 12/20/17 12/20/17 12/20/17 09:56 13:44 18:09 Breakfast 75% Lunch 75% Supper Temperature 99.4 F 12/20/17 12/20/17 12/21/17 18:58 20:42 07:31 Breakfast Lunch Supper 50% Temperature 98.7 F 99.1 F 12/21/17 12/21/17 10:09 11:22 Breakfast 100% Lunch Supper Temperature 98.9 F Laboratory Tests 12/19/17 12/20/17 12/21/17 21:40 07:13 06:30 WBC 16.0 H 15.1 H 13.5 H MBS reviewed with pt/staff. Pt on chopped diet/nectar thick liquid. Consider thin liquid. (-) aspiration on MBS.
--- NOTE | 2017-12-21 12:15 | CON.GI ---
Consult Consult Specialty:: gi Reason for Consultation:: ABDOMINAL DISTENSION - History of Present Illness History of Present Illness: Chart reviewed. GI was consulted for abdominal distension. Per initial intake: a 77 year old man with a significant PMH of HTN, abnormal LFTs, prior tracheostomy, HLD, NIDDM, stroke with residual right sided weakness and dysphagia presenting after his left leg gave out earlier today. As per the aide, the patient has been altered over the last few days - aide not available to elaborate on the specific details of "altered mental status". Despite gargling breathing, he insists that is normal for him. No BM in 3 days and has buttock pain where he has ulcers. The patient denies chest pain, shortness of breath, headache and dizziness. At the time of this encounter, the pt was not in distress, or discomfort. Indicated that "distended" abdomen is his baseline. Reported no abdominal discomfort, or pain. No nausea, or vomiting. Just prior to this encounter, the pt had 2 large loose bms w/o melena, or hematochezia. per nurse's aid. The pt has been tolerating all his meals w/o overt dysphagia, or any postprandial symptoms. On exam the abdomen is tens, distended, non-tended with normal bowel sounds. CT: IMPRESSION: In comparison to a CT exam of 10/17/2016 there is increased dilatation involving the upper and middle thirds of a redundant sigmoid colon. No definite CT evidence of sigmoid colon. Mild to moderate fecal retention is seen within the rectum and lower third of the sigmoid colon. The described sigmoid dilatation could be on the basis of atony. Interval development of diffuse urinary bladder wall thickening is seen with associated development of soft tissue stranding within the contiguous fat planes consistent with cystitis. Development of a wedge-shaped right lower lobe opacity is seen which may represent atelectasis and/or infiltrate. Small right hepatic lobe low-attenuation foci described on the previous exam cannot be definitely appreciated on the current study possibly due to adjacent artifact. 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 - Alcohol/Substance Use Hx Alcohol Use: No - Smoking History Smoking history: Never smoked Have you smoked in the past 12 months: No Aproximately how many cigarettes per day: 0 If you are a former smoker, when did you quit?: 6 years ago Home Medications - Allergies Allergies/Adverse Reactions: Allergies Allergy/AdvReac Type Severity Reaction Status Date / Time No Known Allergies Allergy Verified 12/19/17 18:31 - Home Medications Home Medications: Ambulatory Orders Escitalopram Oxalate [Lexapro -] 10 mg PO DAILY 12/10/15 Gabapentin 300 mg PO TID 12/10/15 Repaglinide 2 mg PO BID 12/10/15 Diltiazem Cd [Cardizem Cd -] 120 mg PO DAILY tab 10/22/16 Amlodipine Besylate 10 mg PO DAILY 12/20/17 Azelastine HCl 205.5 mcg NS BID 12/20/17 Ergocalciferol (Vitamin D2) [Vitamin D2] 50,000 unit PO WEEKLY 12/20/17 Furosemide [Lasix -] 40 mg PO DAILY 12/20/17 Lidocaine 5% Top. Ointment [Xylocaine 5% Top. Ointment] 1 applic TP TID Lisinopril [Prinivil] 30 mg PO DAILY 12/20/17 Family Disease History - Family Disease History Family History: Unremarkable (non-contrib) Review of Systems Findings/Remarks: as per HPI, ED, H&P Physical Exam-GI Vital Signs: Vital Signs Temperature 98.9 F 12/21/17 10:09 Pulse Rate 78 12/21/17 10:09 Respiratory Rate 20 12/21/17 10:09 Blood Pressure 138/73 12/21/17 10:09 O2 Sat by Pulse Oximetry (%) 98 12/20/17 20:54 Constitutional: Yes: Well Nourished, No Distress, Calm Eyes: Yes: Conjunctiva Clear HENT: Yes: Atraumatic Neck: Yes: Supple Cardiovascular: Yes: Regular Rate and Rhythm Respiratory: Yes: Regular Gastrointestinal Inspection: Yes: Distention. No: Ascites ...Auscultate: Yes: Normoactive Bowel Sounds ...Palpate: No: Firm/Rigid, Guarding, Mass, Soft, Tenderness, Tenderness, Epigastium, Tenderness, Rebound Neurological: Yes: Alert Labs: CBC, BMP 12/21/17 06:30 12/21/17 06:30 INR, PTT INR 1.34 (0.83-1.09) H 12/19/17 21:40 Laboratory Last Values WBC 13.5 K/mm3 (4.0-10.0) H 12/21/17 06:30 RBC 4.39 M/mm3 (4.00-5.60) 12/21/17 06:30 Hgb 13.7 GM/dL (11.7-16.9) 12/21/17 06:30 Hct 39.2 % (35.4-49) 12/21/17 06:30 MCV 89.2 fl (80-96) 12/21/17 06:30 MCH 31.3 pg (25.7-33.7) 12/21/17 06:30 MCHC 35.0 g/dl (32.0-35.9) 12/21/17 06:30 RDW 15.3 % (11.9-15.9) 12/21/17 06:30 Plt Count 208 K/MM3 (134-434) 12/21/17 06:30 MPV 9.4 fl (7.5-11.1) 12/21/17 06:30 Absolute Neuts (auto) 9.8 K/mm3 (1.5-8.0) H 12/21/17 06:30 Neutrophils % 72.9 % (42.8-82.8) 12/21/17 06:30 Lymphocytes % 15.2 % (8-40) 12/21/17 06:30 Monocytes % 10.5 % (3.8-10.2) H 12/21/17 06:30 Eosinophils % 0.8 % (0-4.5) 12/21/17 06:30 Basophils % 0.6 % (0-2.0) 12/21/17 06:30 Nucleated RBC % 0 % (0-0) 12/21/17 06:30 PT with INR 15.10 SEC (9.7-13.0) H 12/19/17 21:40 INR 1.34 (0.83-1.09) H 12/19/17 21:40 VBG pH 7.40 (7.32-7.42) 12/19/17 20:53 POC VBG pCO2 43.1 mmHg (38-52) D 12/19/17 20:53 POC VBG pO2 55.8 mmHg (28-48) H 12/19/17 20:53 Mixed VBG HCO3 27.2 meq/L (19-25) H 12/19/17 20:53 Sodium 137 mmol/L (136-145) 12/21/17 06:30 Potassium 3.8 mmol/L (3.5-5.1) 12/21/17 06:30 Chloride 99 mmol/L (98-107) 12/21/17 06:30 Carbon Dioxide 28 mmol/L (21-32) 12/21/17 06:30 Anion Gap 10 MMOL/L (8-16) 12/21/17 06:30 BUN 12 mg/dL (7-18) 12/21/17 06:30 Creatinine 0.9 mg/dL (0.7-1.3) 12/21/17 06:30 Creat Clearance w eGFR > 60 (>60) 12/21/17 06:30 POC Glucometer 335 UNITS (80-120) 12/21/17 11:05 Random Glucose 272 mg/dL (74-106) H D 12/21/17 06:30 Hemoglobin A1c % 7.6 % (4.8-6.0) H D 12/20/17 07:20 Lactic Acid 1.0 mmol/L (0.0-2.0) 12/20/17 07:13 Calcium 8.7 mg/dL (8.5-10.1) 12/21/17 06:30 Phosphorus 2.0 mg/dL (2.5-4.9) L D 12/20/17 07:13 Magnesium 1.9 mg/dL (1.8-2.4) 12/20/17 07:13 Total Bilirubin 1.1 mg/dL (0.2-1.0) H 12/20/17 07:13 AST 20 U/L (15-37) D 12/20/17 07:13 ALT 29 U/L (12-78) 12/20/17 07:13 Alkaline Phosphatase 84 U/L (45-117) 12/20/17 07:13 Creatine Kinase 224 IU/L (39-308) 12/19/17 21:40 Creatine Kinase Index 0.4 % (0.0-5.0) 12/19/17 21:40 CK-MB (CK-2) < 1.00 ng/mL (0.5-3.6) 12/19/17 21:40 Troponin I 0.03 ng/ml (0.00-0.05) 12/19/17 21:40 B-Natriuretic Peptide 536.56 pg/ml (5-450) H 12/19/17 21:40 Total Protein 6.7 g/dl (6.4-8.2) 12/20/17 07:13 Albumin 2.3 g/dl (3.4-5.0) L 12/20/17 07:13 Urine Color Viry 12/19/17 22:00 Urine Appearance Clear 12/19/17 22:00 Urine pH 5.0 (5.0-8.0) 12/19/17 22:00 Ur Specific [place] 1.029 (1.001-1.035) 12/19/17 22:00 Urine Protein 1+ (NEGATIVE) H 12/19/17 22:00 Urine Glucose (UA) 3+ (NEGATIVE) H 12/19/17 22:00 Urine Ketones Negative (NEGATIVE) 12/19/17 22:00 Urine Blood 1+ (NEGATIVE) H 12/19/17 22:00 Urine Nitrite Negative (NEGATIVE) 12/19/17 22:00 Urine Bilirubin Negative (<2.0 mg/dL) 12/19/17 22:00 Urine Urobilinogen 4.0 e.u/dl mg/dL (0.2-1.0) 12/19/17 22:00 Ur Leukocyte Esterase Negative (NEGATIVE) 12/19/17 22:00 Urine WBC (Auto) 7 /hpf (3-5) 12/19/17 22:00 Urine RBC (Auto) 4 /hpf (0-3) 12/19/17 22:00 Ur Epithelial Cells Rare /HPF (FEW) 12/19/17 22:00 Urine Bacteria Rare /hpf (NONE SEEN) 12/19/17 22:00 Hyaline Casts 2 /lpf 12/19/17 22:00 Urine Mucus Rare 12/19/17 22:00 Acetone, Qual Negative (NEGATIVE) 12/19/17 21:40 Imaging - Results X-ray: Report Reviewed Cat Scan: Report Reviewed Problem List - Problems (1) Abnormal abdominal CT scan Code(s): R93.5 - ABN FINDINGS ON DX IMAGING OF ABD REGIONS, INC RETROPERITON (2) Fecal retention Code(s): K59.00 - CONSTIPATION, UNSPECIFIED Assessment/Plan A 77M with 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 No symptoms to suggest bowel obstruction, or acute pathology. Tolerating dysphagia diet. Had a good response to po laxatives. Recommend: continue current care and bowel regiment with a goal of 1 bm qd-qod. Monitor and correct electrolytes as need. Repeat AXR in 1-2 days. High fiber diet to maintain bms may not be very beneficial in this patient.
[2017-12-21] MEDS: ALBUTEROL SO4 0.083% IH SOL 2.5 MG/3 ML VIAL.NEB. NEB PRN (14:19)
--- NOTE | 2017-12-21 14:28 | PN ---
Progress Note (short form) - Note Progress Note: PULMONARY Still with shortness of breath, cough and chest congestion. Vital Signs Period Temp Pulse Resp BP Sys/Pham Pulse Ox Last 24 Hr 98.7 F-99.4 F 78-107 18-24 124-145/64-78 96-98 Gen: mildly tachypneic at rest Heart: RRR Lung: bilateral rhonchi Abd: soft, nontender Ext: no edema CBC, BMP 12/21/17 06:30 12/21/17 06:30 Active Medications Albuterol Sulfate (Ventolin 0.083% Nebulizer Soln -) 1 amp NEB Q4H PRN PRN Reason: SHORT OF BREATH/WHEEZING Last Admin: 12/21/17 14:19 Dose: 1 amp Albuterol/Ipratropium (Duoneb -) 1 amp NEB RQID [facility] Amlodipine Besylate (Norvasc -) 10 mg PO DAILY [facility] Last Admin: 12/21/17 10:11 Dose: 10 mg Diltiazem HCl (Cardizem -) 120 mg PO DAILY [facility] Last Admin: 12/21/17 10:11 Dose: 120 mg Escitalopram Oxalate (Lexapro -) 10 mg PO DAILY [facility] Last Admin: 12/21/17 10:11 Dose: 10 mg Furosemide (Lasix -) 40 mg PO DAILY [facility] Last Admin: 12/21/17 10:11 Dose: 40 mg Gabapentin (Neurontin -) 300 mg PO TID [facility] Last Admin: 12/21/17 06:14 Dose: 300 mg Heparin Sodium (Porcine) (Heparin -) 5,000 unit SQ TID [facility] Last Admin: 12/21/17 06:14 Dose: 5,000 unit Insulin Aspart (Novolog Vial Sliding Scale -) 1 vial SQ ACHS [facility]; Protocol Last Admin: 12/21/17 11:07 Dose: 8 units Lisinopril (Prinivil) 30 mg PO DAILY [facility] Last Admin: 12/21/17 10:12 Dose: 30 mg Polyethylene Glycol (Miralax (For Daily Use) -) 17 gm PO BID [facility] Last Admin: 12/21/17 11:07 Dose: 17 grams Senna/Docusate Sodium (Pericolace -) 2 tablet PO HS PRN PRN Reason: CONSTIPATION A/P COPD LV Diastolic Dysfunction Altered Mental Status h/o CVA - start inhaled bronchodilators standing and PRN - if no improvement, would start short course of steroids - O2 to keep SpO2 >90% - repeat CXR - DVT prophylaxis
--- NOTE | 2017-12-21 15:15 | PN ---
Physical Exam: SUBJECTIVE: Patient seen and examined at bedside. No acute complaints, denies SOB/dyspnea, denies CP, f/c, n/v/d. Two large volume loose BMs today. Heavy tracheal breathing. OBJECTIVE: Vital Signs Period Temp Pulse Resp BP Sys/Pham Pulse Ox Last 24 Hr 98.7 F-99.4 F 78-107 18-24 124-145/64-78 96-98 GENERAL: A&Ox3, NAD HEAD: NC/AT EYES: PERRLA, EOMI, sclera anicteric NECK: Trachea midline, full range of motion, supple, no JVD LUNGS: tracheal breath sounds, coarse ronchi diffusely HEART: normal S1S2, RRR, no m/r/g ABDOMEN: distended, tympanitic, non-tender, reducible umbilical hernia EXTREMITIES: 2+ pulses, warm, well-perfused, 1+ pitting edema in b/l LE NEUROLOGICAL: -CN exam notable for significant right and mild left facial droop, dysarthria, otherwise intact -strength 4/5 in LUE and LLE, 0/5 in proximal RUE, 2/5 in distal RUE, 0/5 in proximal RLE, 1/5 in distal RLE -sensation grossly intact -could not evaluate FtN or HtS -could not elicit biceps or patellar reflexes -upgoing plantars b/l R>L SKIN: stage 2 decubitus ulcers on buttocks b/l, non-infected appearing Laboratory Results - last 24 hr 12/20/17 12/20/17 12/21/17 17:24 21:13 06:12 WBC RBC Hgb Hct MCV MCH MCHC RDW Plt Count MPV Absolute Neuts (auto) Neutrophils % Lymphocytes % Monocytes % Eosinophils % Basophils % Nucleated RBC % Sodium Potassium Chloride Carbon Dioxide Anion Gap BUN Creatinine Creat Clearance w eGFR POC Glucometer 220 249 279 Random Glucose Calcium 12/21/17 12/21/17 12/21/17 06:30 06:30 11:05 WBC 13.5 H RBC 4.39 Hgb 13.7 Hct 39.2 MCV 89.2 MCH 31.3 MCHC 35.0 RDW 15.3 Plt Count 208 MPV 9.4 Absolute Neuts (auto) 9.8 H Neutrophils % 72.9 Lymphocytes % 15.2 Monocytes % 10.5 H Eosinophils % 0.8 Basophils % 0.6 Nucleated RBC % 0 Sodium 137 Potassium 3.8 Chloride 99 Carbon Dioxide 28 Anion Gap 10 BUN 12 Creatinine 0.9 Creat Clearance w eGFR > 60 POC Glucometer 335 Random Glucose 272 H D Calcium 8.7 Active Medications Generic Name Dose Route Start Last Admin Trade Name Freq PRN Reason Stop Dose Admin Albuterol Sulfate 1 amp 12/21/17 14:01 12/21/17 14:19 Ventolin 0.083% Nebulizer Soln - NEB 1 amp Q4H PRN Administration SHORT OF BREATH/WHEEZING Albuterol/Ipratropium 1 amp 12/21/17 16:00 Duoneb - NEB RQID [facility] Amlodipine Besylate 10 mg 12/20/17 17:15 12/21/17 10:11 Norvasc - PO 10 mg DAILY [facility] Administration Diltiazem HCl 120 mg 12/20/17 17:15 12/21/17 10:11 Cardizem - PO 120 mg DAILY [facility] Administration Escitalopram Oxalate 10 mg 12/20/17 17:30 12/21/17 10:11 Lexapro - PO 10 mg DAILY [facility] Administration Furosemide 40 mg 12/20/17 17:30 12/21/17 10:11 Lasix - PO 40 mg DAILY [facility] Administration Gabapentin 300 mg 12/20/17 22:00 12/21/17 14:58 Neurontin - PO 300 mg TID [facility] Administration Heparin Sodium (Porcine) 5,000 unit 12/20/17 06:00 12/21/17 14:58 Heparin - SQ 5,000 unit TID [facility] Administration Ceftriaxone Sodium 1 gm/ 100 mls @ 200 mls/hr 12/21/17 15:15 Dextrose IVPB DAILY [facility] Protocol Insulin Aspart 1 vial 12/20/17 07:00 12/21/17 11:07 Novolog Vial Sliding Scale - SQ 8 units ACHS [facility] Administration Protocol Lisinopril 30 mg 12/20/17 17:15 12/21/17 10:12 Prinivil PO 30 mg DAILY [facility] Administration Polyethylene Glycol 17 gm 12/20/17 10:00 12/21/17 11:07 Miralax (For Daily Use) - PO 17 grams BID [facility] Administration Senna/Docusate Sodium 2 tablet 12/20/17 14:53 Pericolace - PO HS PRN CONSTIPATION ASSESSMENT/PLAN: 77 y/o M w/ PMHx CVA w/ residual R-sided deficits, chronic dysphagia w/ prior trach, COPD on home O2, diastolic CHF, T2DM, HTN, HLD, admitted for AMS and near -fall following progressing weakness observed by [employer] ME[employer]IC #AMS - mental status at baseline, will confirm w/ family - WBC improved to 13.5 from 15.1 - CXR and Head CT demonstrated no acute pathology - no growth on BCx - UCx grew >100k lac+ Gnb, started on empiric Ceftriaxone 1g daily - home Lexapro 10 daily #UTI -WBC improved to 13.5 from 15.1 -UCx grew >100k lac+ Gnb -started on empiric Ceftriaxone 1g daily #COPD - no infiltrate on CXR - no home steroids - on 2L home O2 per health aide - 2L NC - Duonebs standing and albuterol PRN per Dr. Grant - if no improvement, start short course of steroids per Dr. Grant - repeat CXR per Dr. Grant - pulmonology reccs appreciated #CHF - no evidence of exacerbation - echo: 60% EF, normal LV, trace MR, trace TR, moderate - home meds: lasix 40, lisinopril 30, norvasc 10, dilt 120 daily #Constipation/distention -AXR unrevealing -Abd CT w/ contrast showed dilatation of sigmoid, mild-moderate fecal retention , evidence of cystitis, and diffuse hepatic steatosis -Repeat AXR in 1-[address] Easley -GI reccs appreciated #dysphagia -S/S evaluated -modified barium swallow study normal -dyphagia chopped diet w/ nectar liquid #Decubitis Ulcers - Wound care (Dr. Chakraborty) Consulted for wound management - no surgical intervention #DM - Hold Home meds - BGM, ISS ACHS - A1C 7.6 #FEN - no IVF - lytes WNL - dyphagia chopped diet w/ nectar liquid #PPx - DVT: Heparin 5,000 unit SQ TID #HCP/contact -daughter Ama [phone] -also health aide Marychuy [phone] # Dispo: med-surg Visit type - Emergency Visit Emergency Visit: No - New Patient This patient is new to me today: No - Critical Care Critical Care patient: No
[2017-12-21] MEDS: ALBUTEROL SO4 2.5/IPRATROPIUM 0.5 INH SOL 3 ML VIAL.NEB. NEB SCH ×2 (15:30→21:10)
[2017-12-21] MEDS ORDERED: cefTRIAXone SODIUM 1 GM VIAL ONE (15:35)
[2017-12-21] MEDS ORDERED: DEXTROSE 5%-WATER - 50 ML IVPB ONE (15:35)
[2017-12-21] MEDS: CEFTRIAXONE 1 GM in DEXTROSE 5%-WATER - 50 ML IVPB SCH (15:37)
[2017-12-22] MEDS: HEPARIN NA (PORCINE) 5,000 UNITS/ML 1ML VIAL SQ SCH ×3 (06:33→22:27)
[2017-12-22] MEDS: GABAPENTIN 300 MG CAPSULE (FP) PO SCH ×3 (06:34→22:27)
[2017-12-22] MEDS: INSULIN SLIDING SCALE (NOVOLOG) 1 VIAL SQ SCH ×4 (06:37→22:37)
[2017-12-22] MEDS: ALBUTEROL SO4 2.5/IPRATROPIUM 0.5 INH SOL 3 ML VIAL.NEB. NEB SCH ×4 (07:40→19:51)
--- NOTE | 2017-12-22 08:25 | PN ---
Teaching Attending Note Name of Resident: Roman Goins ATTENDING PHYSICIAN STATEMENT I saw and evaluated the patient. I reviewed the resident's note and discussed the case with the resident. I agree with the resident's findings and plan as documented. SUBJECTIVE: Patient is better , no acute distress. OBJECTIVE: Vital Signs Temperature 99.6 F 12/22/17 06:17 Pulse Rate 96 H 12/22/17 06:17 Respiratory Rate 20 12/22/17 06:17 Blood Pressure 125/69 12/22/17 06:17 O2 Sat by Pulse Oximetry (%) 97 12/21/17 21:00 CBCD WBC 13.5 K/mm3 (4.0-10.0) H 12/21/17 06:30 RBC 4.39 M/mm3 (4.00-5.60) 12/21/17 06:30 Hgb 13.7 GM/dL (11.7-16.9) 12/21/17 06:30 Hct 39.2 % (35.4-49) 12/21/17 06:30 MCV 89.2 fl (80-96) 12/21/17 06:30 MCHC 35.0 g/dl (32.0-35.9) 12/21/17 06:30 RDW 15.3 % (11.9-15.9) 12/21/17 06:30 Plt Count 208 K/MM3 (134-434) 12/21/17 06:30 MPV 9.4 fl (7.5-11.1) 12/21/17 06:30 CMP Sodium 137 mmol/L (136-145) 12/21/17 06:30 Potassium 3.8 mmol/L (3.5-5.1) 12/21/17 06:30 Chloride 99 mmol/L (98-107) 12/21/17 06:30 Carbon Dioxide 28 mmol/L (21-32) 12/21/17 06:30 Anion Gap 10 MMOL/L (8-16) 12/21/17 06:30 BUN 12 mg/dL (7-18) 12/21/17 06:30 Creatinine 0.9 mg/dL (0.7-1.3) 12/21/17 06:30 Creat Clearance w eGFR > 60 (>60) 12/21/17 06:30 Random Glucose 272 mg/dL (74-106) H D 12/21/17 06:30 Calcium 8.7 mg/dL (8.5-10.1) 12/21/17 06:30 Total Bilirubin 1.1 mg/dL (0.2-1.0) H 12/20/17 07:13 AST 20 U/L (15-37) D 12/20/17 07:13 ALT 29 U/L (12-78) 12/20/17 07:13 Alkaline Phosphatase 84 U/L (45-117) 12/20/17 07:13 Total Protein 6.7 g/dl (6.4-8.2) 12/20/17 07:13 Albumin 2.3 g/dl (3.4-5.0) L 12/20/17 07:13 CARDIAC ENZYMES Creatine Kinase 224 IU/L (39-308) 12/19/17 21:40 Troponin I 0.03 ng/ml (0.00-0.05) 12/19/17 21:40 Current Medications Generic Name Dose Route Start Last Admin Trade Name Freq PRN Reason Stop Dose Admin Albuterol Sulfate 1 amp 12/21/17 14:01 12/21/17 14:19 Ventolin 0.083% Nebulizer Soln - NEB 1 amp Q4H PRN Administration SHORT OF BREATH/WHEEZING Albuterol/Ipratropium 1 amp 12/21/17 16:00 12/22/17 07:40 Duoneb - NEB 1 amp RQID [facility] Administration Amlodipine Besylate 10 mg 12/20/17 17:15 12/21/17 10:11 Norvasc - PO 10 mg DAILY [facility] Administration Diltiazem HCl 120 mg 12/20/17 17:15 12/21/17 10:11 Cardizem - PO 120 mg DAILY [facility] Administration Escitalopram Oxalate 10 mg 12/20/17 17:30 12/21/17 10:11 Lexapro - PO 10 mg DAILY [facility] Administration Furosemide 40 mg 12/20/17 17:30 12/21/17 10:11 Lasix - PO 40 mg DAILY [facility] Administration Gabapentin 300 mg 12/20/17 22:00 12/22/17 06:34 Neurontin - PO 300 mg TID [facility] Administration Heparin Sodium (Porcine) 5,000 unit 12/20/17 06:00 12/22/17 06:33 Heparin - SQ 5,000 unit TID [facility] Administration Ceftriaxone Sodium 1 gm/ 50 mls @ 100 mls/hr 12/21/17 15:15 12/21/17 15:37 Dextrose IVPB 100 mls/hr DAILY [facility] Administration Protocol Insulin Aspart 1 vial 12/20/17 07:00 12/22/17 06:37 Novolog Vial Sliding Scale - SQ 6 units ACHS [facility] Administration Protocol Lisinopril 30 mg 12/20/17 17:15 12/21/17 10:12 Prinivil PO 30 mg DAILY [facility] Administration Polyethylene Glycol 17 gm 12/20/17 10:00 12/21/17 21:59 Miralax (For Daily Use) - PO 17 grams BID [facility] Administration Senna/Docusate Sodium 2 tablet 12/20/17 14:53 Pericolace - PO HS PRN CONSTIPATION Home Medications Medication Instructions Recorded Escitalopram Oxalate [Lexapro -] 10 mg PO DAILY 12/10/15 Gabapentin 300 mg PO TID 12/10/15 Repaglinide 2 mg PO BID 12/10/15 Diltiazem Cd [Cardizem Cd -] 120 mg PO DAILY tab 10/22/16 Amlodipine Besylate 10 mg PO DAILY 12/20/17 Azelastine HCl 205.5 mcg NS BID 12/20/17 Ergocalciferol (Vitamin D2) 50,000 unit PO WEEKLY 12/20/17 [Vitamin D2] Furosemide [Lasix -] 40 mg PO DAILY 12/20/17 Lidocaine 5% Top. Ointment 1 applic TP TID 12/20/17 [Xylocaine 5% Top. Ointment] Lisinopril [Prinivil] 30 mg PO DAILY 12/20/17 Microbiology 12/19/17 21:40 Blood - Peripheral Venous Blood Culture - Preliminary NO GROWTH OBTAINED AFTER 72 HOURS, INCUBATION TO CONTINUE FOR 2 DAYS. 12/19/17 21:40 Blood - Peripheral Venous Blood Culture - Preliminary NO GROWTH OBTAINED AFTER 72 HOURS, INCUBATION TO CONTINUE FOR 2 DAYS. 12/19/17 22:00 Urine - Urine Clean Catch Urine Culture - Final Klebsiella Pneumoniae PE: per resident's note ASSESSMENT AND PLAN: Patient is a 77 y/o male with PMHx of COPD on 2L oxygen at home , T2dm, HTN, HLP, h/o Trach , stroke with Right sided residual weakness, ascending aortic aneurysm and dysphagia who presented with AMS and a fall with no LOC as per family . # Acute UTI due to having Klebsiella Pneumoniae will start the patient on Rocephin # AMS due to metabolic encephalopathy possible due to having UTI as well: patient is back to his baseline now . # Acute Leukocytosis: most likely due to UTI ,improving 16-->13.5 will monitor #Acute COPD exacerabtion :continue neb. treatments , on oxygen continue . Pulmonary on the case #Diastolic CHF: resume his home meds ( lasix , lisinopril, and norvasc ) # dysphagia : MBS's report as per Isela Wisdom continue with chopped diet and thin liquid. monitor # DM : cont SSI . A1c 7.8 , conitnue SS with coverage # H/o stroke: will check with the daughter.whether on ASpirin/statins at home. # Constipation continue with Miralax, Senna continue DVT Px: Heparin
[2017-12-22 08:43] LABS: BASO % 0.4 % (0-2.0); EOS % 0.4 % (0-4.5); LYMPH % 25.8 % (8-40); MCH 30.7 pg (25.7-33.7); MCHC 34.3 g/dl (32.0-35.9); MEAN CELL VOLUME 89.6 fl (80-96); MEAN PLT VOLUME 8.8 fl (7.5-11.1); MONO % 12.4 % (3.8-10.2); PLATELET COUNT 227 K/MM3 (134-434); RBC 4.24 M/mm3 (4.00-5.60); RDW 14.8 % (11.9-15.9); WHITE BLOOD COUNT 12.7 K/mm3 (4.0-10.0)
[2017-12-22 09:42] LABS: ALBUMIN 2.5 g/dl (3.4-5.0); ANION GAP 10 MMOL/L (8-16); BLOOD UREA NITROGEN 20 mg/dL (7-18); CALCIUM 8.8 mg/dL (8.5-10.1); CHLORIDE 102 mmol/L (98-107); CO2 30 mmol/L (21-32); CREATININE 1.1 mg/dL (0.7-1.3); GLUCOSE,RANDOM 275 mg/dL (74-106); POTASSIUM 3.7 mmol/L (3.5-5.1); SGOT/AST 22 U/L (15-37); SGPT/ALT 31 U/L (12-78); SODIUM 142 mmol/L (136-145)
[2017-12-22 09:44] LABS: ALK PHOS 83 U/L (45-117); TOT PROT 7.4 g/dl (6.4-8.2)
[2017-12-22] MEDS ORDERED: PT OWN MED DRAWER 7, Y5N ONE (10:20)
[2017-12-22] MEDS: LISINOPRIL 20 MG TABLET (FP) PO SCH (10:23)
[2017-12-22] MEDS: ESCITALOPRAM OXALATE 10 MG TABLET (FP) PO SCH (10:24)
[2017-12-22] MEDS: FUROSEMIDE 40 MG TABLET (FP) PO SCH (10:24)
[2017-12-22] MEDS: dilTIAZem HCL 60 MG TABLET (FP) PO SCH (10:24)
[2017-12-22] MEDS: amLODIPine BESYLATE 10 MG TABLET (FP) PO SCH (10:24)
[2017-12-22] MEDS: POLYETHYLENE GLYCOL 3350 119 GM BTL PO SCH ×2 (10:24→22:30)
--- NOTE | 2017-12-22 12:02 | CON.CARD ---
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 The patient denies chest pain, shortness of breath, near or true syncope, palpitations, being fed lunch in bed. 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 - Alcohol/Substance Use Hx Alcohol Use: No - Smoking History Smoking history: Never smoked Have you smoked in the past 12 months: No Aproximately how many cigarettes per day: 0 If you are a former smoker, when did you quit?: 6 years ago Home Medications - Allergies Allergies/Adverse Reactions: Allergies Allergy/AdvReac Type Severity Reaction Status Date / Time No Known Allergies Allergy Verified 12/19/17 18:31 - Home Medications Home Medications: Ambulatory Orders Escitalopram Oxalate [Lexapro -] 10 mg PO DAILY 12/10/15 Gabapentin 300 mg PO TID 12/10/15 Repaglinide 2 mg PO BID 12/10/15 Diltiazem Cd [Cardizem Cd -] 120 mg PO DAILY tab 10/22/16 Amlodipine Besylate 10 mg PO DAILY 12/20/17 Azelastine HCl 205.5 mcg NS BID 12/20/17 Ergocalciferol (Vitamin D2) [Vitamin D2] 50,000 unit PO WEEKLY 12/20/17 Furosemide [Lasix -] 40 mg PO DAILY 12/20/17 Lidocaine 5% Top. Ointment [Xylocaine 5% Top. Ointment] 1 applic TP TID Lisinopril [Prinivil] 30 mg PO DAILY 12/20/17 Review of Systems - Review of Systems Neurological: reports: Pre-Existing Deficit Vital Signs: Vital Signs Temperature 99.8 F H 12/22/17 09:00 Pulse Rate 106 H 12/22/17 09:00 Respiratory Rate 20 12/22/17 09:00 Blood Pressure 143/85 12/22/17 09:00 O2 Sat by Pulse Oximetry (%) 97 12/21/17 21:00 Constitutional: Yes: No Distress, Calm Neck: Yes: Supple Respiratory: Yes: Regular, Diminished Gastrointestinal: Yes: Normal Bowel Sounds, Soft Cardiovascular: Yes: Regular Rate and Rhythm JVD: No Carotid Bruit: No Heart Sounds: Yes: S1, S2 Edema: No - Other Data Labs, Other Data: CBC, BMP 12/22/17 08:25 12/22/17 08:25 INR, PTT INR 1.34 (0.83-1.09) H 12/19/17 21:40 SR @ 91 occ PVC Ejection Fraction %: LVEF > or = 40 % Imaging - Results Chest X-ray: Report Reviewed (NAD) Problem List - Problems (1) Toxic metabolic encephalopathy Code(s): G92 - TOXIC ENCEPHALOPATHY (2) COPD (chronic obstructive pulmonary disease) Code(s): J44.9 - CHRONIC OBSTRUCTIVE PULMONARY DISEASE, UNSPECIFIED Qualifiers: Emphysema type: unspecified (3) H/O: CVA (cerebrovascular accident) Code(s): Z86.73 - PRSNL HX OF TIA (TIA), AND CEREB INFRC W/O RESID DEFICITS (4) Hypertension Code(s): I10 - ESSENTIAL (PRIMARY) HYPERTENSION Qualifiers: Hypertension type: essential hypertension Qualified Code(s): I10 - Essential (primary) hypertension (5) Diastolic dysfunction Code(s): I51.9 - HEART DISEASE, UNSPECIFIED Assessment/Plan 12/20/2017 Echo: Normal LV size and fxn, tr MR, TR 1. COPD 2. LV Diastolic Dysfunction 3. Altered Mental Status referable to toxic-metabolic encephelopathy since resolved 4. h/o CVA with residual right-sided weakness and chronic dysphagia 5. UTI P:1. Continue Cardizem, lsinopril, Lasix, resume ASA, d/c Norvasc 2. Inhaled bronchodilators standing and PRN, complete abx course 3. O2 to keep SpO2 >90% 4. DVT and GI prophylaxis 5. Thank you for consultative opportunity
[2017-12-22] MEDS ORDERED: cefTRIAXone SODIUM 1 GM VIAL ONE (12:37)
[2017-12-22] MEDS ORDERED: DEXTROSE 5%-WATER - 50 ML IVPB ONE (12:37)
[2017-12-22] MEDS: CEFTRIAXONE 1 GM in DEXTROSE 5%-WATER - 50 ML IVPB SCH (12:51)
--- NOTE | 2017-12-22 13:19 | PN ---
Progress Note, Physician History of Present Illness: PULMONARY AWAKE,STILL CONGESTED,+ COUGH - Current Medication List Current Medications: Active Medications Albuterol Sulfate (Ventolin 0.083% Nebulizer Soln -) 1 amp NEB Q4H PRN PRN Reason: SHORT OF BREATH/WHEEZING Last Admin: 12/21/17 14:19 Dose: 1 amp Albuterol/Ipratropium (Duoneb -) 1 amp NEB RQID [facility] Last Admin: 12/22/17 11:13 Dose: 1 amp Aspirin (Asa -) 81 mg PO DAILY [facility] Diltiazem HCl (Cardizem -) 120 mg PO DAILY [facility] Last Admin: 12/22/17 10:24 Dose: 120 mg Escitalopram Oxalate (Lexapro -) 10 mg PO DAILY [facility] Last Admin: 12/22/17 10:24 Dose: 10 mg Furosemide (Lasix -) 40 mg PO DAILY [facility] Last Admin: 12/22/17 10:24 Dose: 40 mg Gabapentin (Neurontin -) 300 mg PO TID [facility] Last Admin: 12/22/17 06:34 Dose: 300 mg Heparin Sodium (Porcine) (Heparin -) 5,000 unit SQ TID [facility] Last Admin: 12/22/17 06:33 Dose: 5,000 unit Ceftriaxone Sodium 1 gm/ (Dextrose) 50 mls @ 100 mls/hr IVPB DAILY [facility]; Protocol Last Admin: 12/22/17 12:51 Dose: 100 mls/hr Insulin Aspart (Novolog Vial Sliding Scale -) 1 vial SQ ACHS [facility]; Protocol Last Admin: 12/22/17 12:31 Dose: 8 units Lisinopril (Prinivil) 30 mg PO DAILY [facility] Last Admin: 12/22/17 10:23 Dose: 30 mg Polyethylene Glycol (Miralax (For Daily Use) -) 17 gm PO BID [facility] Last Admin: 12/22/17 10:24 Dose: 17 grams Senna/Docusate Sodium (Pericolace -) 2 tablet PO HS PRN PRN Reason: CONSTIPATION - Objective Vital Signs: Vital Signs Temperature 99.8 F H 12/22/17 09:00 Pulse Rate 106 H 12/22/17 09:00 Respiratory Rate 20 12/22/17 09:00 Blood Pressure 143/85 12/22/17 09:00 O2 Sat by Pulse Oximetry (%) 97 12/21/17 21:00 Constitutional: Yes: Well Nourished, Calm Eyes: Yes: WNL HENT: Yes: WNL Neck: Yes: WNL Cardiovascular: Yes: Regular Rate and Rhythm, S1, S2 Respiratory: Yes: Rhonchi (BILATERAL RHONCHI) Gastrointestinal: Yes: Normal Bowel Sounds, Soft Extremities: Yes: WNL Edema: No Labs: CBC, BMP 12/22/17 08:25 12/22/17 08:25 INR, PTT INR 1.34 (0.83-1.09) H 12/19/17 21:40 Problem List - Problems (1) COPD (chronic obstructive pulmonary disease) Code(s): J44.9 - CHRONIC OBSTRUCTIVE PULMONARY DISEASE, UNSPECIFIED Qualifiers: Emphysema type: unspecified (2) H/O: CVA (cerebrovascular accident) Code(s): Z86.73 - PRSNL HX OF TIA (TIA), AND CEREB INFRC W/O RESID DEFICITS (3) Bronchitis Code(s): J40 - BRONCHITIS, NOT SPECIFIED ACUTE OR CHRONIC (4) Cough Code(s): R05 - COUGH (5) Hypertension Code(s): I10 - ESSENTIAL (PRIMARY) HYPERTENSION Qualifiers: Hypertension type: essential hypertension Qualified Code(s): I10 - Essential (primary) hypertension Assessment/Plan IMP CHEST CONGESTION LIKELY COPD AMS LV DIASTOLIC DYSFUNCTION DYSPHAGIA S/P CVA WITH R SIDED WEAKNESS WEAKNESS PLAN INHALED BRONCHODILATORS SHORT COURSE OF STEROIDS SUPPLEMENTAL O2 CHEST PT ASPIRATION PRECAUTIONS F/U CHEST X-RAY DVT PROPHYLAXIS DR MIGUEL Problem List - Problems (1) COPD (chronic obstructive pulmonary disease) Code(s): J44.9 - CHRONIC OBSTRUCTIVE PULMONARY DISEASE, UNSPECIFIED (2) H/O: CVA (cerebrovascular accident) Code(s): Z86.73 - PRSNL HX OF TIA (TIA), AND CEREB INFRC W/O RESID DEFICITS (3) Bronchitis Code(s): J40 - BRONCHITIS, NOT SPECIFIED ACUTE OR CHRONIC (4) Cough Code(s): R05 - COUGH (5) Hypertension Code(s): I10 - ESSENTIAL (PRIMARY) HYPERTENSION
[2017-12-22] MEDS: methylPREDNISolone NA SUCC 40 MG/1 ML VIAL IVPUSH SCH ×2 (14:58→22:28)
--- NOTE | 2017-12-22 15:29 | PN ---
Physical Exam: SUBJECTIVE: Patient seen and examined at bedside. No acute complaints, denies SOB/dyspnea, denies CP, f/c, n/v/d. Heavy tracheal breathing. Abdominal distention. OBJECTIVE: Vital Signs Period Temp Pulse Resp BP Sys/Pham Pulse Ox Last 24 Hr 96.4 F-99.8 F 74-106 19-20 125-143/69-85 97 GENERAL: A&Ox3, NAD HEAD: NC/AT EYES: PERRLA, EOMI, sclera anicteric NECK: Trachea midline, full range of motion, supple, no JVD LUNGS: tracheal breath sounds, coarse ronchi diffusely HEART: normal S1S2, RRR, no m/r/g ABDOMEN: distended, tympanitic, non-tender, reducible umbilical hernia EXTREMITIES: 2+ pulses, warm, well-perfused, 1+ pitting edema in b/l LE NEUROLOGICAL: -CN exam notable for significant right and mild left facial droop, dysarthria, otherwise intact -strength 4/5 in LUE and LLE, 0/5 in proximal RUE, 2/5 in distal RUE, 0/5 in proximal RLE, 1/5 in distal RLE -sensation grossly intact -could not evaluate FtN or HtS -could not elicit biceps or patellar reflexes -upgoing plantars b/l R>L SKIN: stage 2 decubitus ulcers on buttocks b/l, non-infected appearing Laboratory Results - last 24 hr 12/21/17 12/21/17 12/22/17 16:56 22:04 06:36 WBC RBC Hgb Hct MCV MCH MCHC RDW Plt Count MPV Absolute Neuts (auto) Neutrophils % Lymphocytes % Monocytes % Eosinophils % Basophils % Nucleated RBC % Sodium Potassium Chloride Carbon Dioxide Anion Gap BUN Creatinine Creat Clearance w eGFR POC Glucometer 328 268 296 Random Glucose Calcium Total Bilirubin AST ALT Alkaline Phosphatase Total Protein Albumin 12/22/17 12/22/17 12/22/17 08:25 08:25 12:29 WBC 12.7 H RBC 4.24 Hgb 13.0 Hct 38.0 MCV 89.6 MCH 30.7 MCHC 34.3 RDW 14.8 Plt Count 227 MPV 8.8 Absolute Neuts (auto) 7.8 Neutrophils % 61.0 Lymphocytes % 25.8 D Monocytes % 12.4 H Eosinophils % 0.4 Basophils % 0.4 Nucleated RBC % 0 Sodium 142 Potassium 3.7 Chloride 102 Carbon Dioxide 30 Anion Gap 10 BUN 20 H Creatinine 1.1 Creat Clearance w eGFR > 60 POC Glucometer 323 Random Glucose 275 H Calcium 8.8 Total Bilirubin 1.0 AST 22 ALT 31 Alkaline Phosphatase 83 Total Protein 7.4 Albumin 2.5 L Active Medications Generic Name Dose Route Start Last Admin Trade Name Freq PRN Reason Stop Dose Admin Albuterol Sulfate 1 amp 12/21/17 14:01 12/21/17 14:19 Ventolin 0.083% Nebulizer Soln - NEB 1 amp Q4H PRN Administration SHORT OF BREATH/WHEEZING Albuterol/Ipratropium 1 amp 12/21/17 16:00 12/22/17 11:13 Duoneb - NEB 1 amp RQID [facility] Administration Aspirin 81 mg 12/23/17 10:00 Asa - PO DAILY [facility] Diltiazem HCl 120 mg 12/20/17 17:15 12/22/17 10:24 Cardizem - PO 120 mg DAILY [facility] Administration Escitalopram Oxalate 10 mg 12/20/17 17:30 12/22/17 10:24 Lexapro - PO 10 mg DAILY [facility] Administration Furosemide 40 mg 12/20/17 17:30 12/22/17 10:24 Lasix - PO 40 mg DAILY [facility] Administration Gabapentin 300 mg 12/20/17 22:00 12/22/17 14:51 Neurontin - PO 300 mg TID [facility] Administration Heparin Sodium (Porcine) 5,000 unit 12/20/17 06:00 12/22/17 14:51 Heparin - SQ 5,000 unit TID [facility] Administration Ceftriaxone Sodium 1 gm/ 50 mls @ 100 mls/hr 12/21/17 15:15 12/22/17 12:51 Dextrose IVPB 100 mls/hr DAILY [facility] Administration Protocol Insulin Aspart 1 vial 12/20/17 07:00 12/22/17 12:31 Novolog Vial Sliding Scale - SQ 8 units ACHS [facility] Administration Protocol Lisinopril 30 mg 12/20/17 17:15 12/22/17 10:23 Prinivil PO 30 mg DAILY [facility] Administration Methylprednisolone Sodium Succinate 40 mg 12/22/17 15:00 12/22/17 14:58 Solu-Medrol - IVPUSH 40 mg Q6H-IV [facility] Administration Polyethylene Glycol 17 gm 12/20/17 10:00 12/22/17 10:24 Miralax (For Daily Use) - PO 17 grams BID [facility] Administration Senna/Docusate Sodium 2 tablet 12/20/17 14:53 Pericolace - PO HS PRN CONSTIPATION ASSESSMENT/PLAN: 77 y/o M w/ PMHx CVA w/ residual R-sided deficits, chronic dysphagia w/ prior trach, COPD on home O2, diastolic CHF, T2DM, HTN, HLD, admitted for AMS and near -fall following progressing weakness observed by [employer] #AMS - mental status at baseline, will confirm w/ family - WBC improved to 13.5 from 15.1 - CXR and Head CT demonstrated no acute pathology - no growth on BCx - UCx grew >100k lac+ Gnb, started on empiric Ceftriaxone 1g daily - home Lexapro 10 daily #UTI -WBC improved to 13.5 from 15.1 -UCx grew >100k lac+ Gnb -started on empiric Ceftriaxone 1g daily #COPD - no infiltrate on CXR - no home steroids - on 2L home O2 per health aide - 2L NC - Duonebs standing and albuterol PRN per Dr. Grant - if no improvement, start short course of steroids per Dr. Grant - repeat CXR per Dr. Grant - pulmonology reccs appreciated #CHF - no evidence of exacerbation - echo: 60% EF, normal LV, trace MR, trace TR, moderate - home meds: lasix 40, lisinopril 30, norvasc 10, dilt 120 daily #Constipation/distention -AXR unrevealing -Abd CT w/ contrast showed dilatation of sigmoid, mild-moderate fecal retention , evidence of cystitis, and diffuse hepatic steatosis -Repeat AXR in 1-[address] Easley -GI reccs appreciated #dysphagia -S/S evaluated -modified barium swallow study normal -dyphagia chopped diet w/ nectar liquid #Decubitis Ulcers - Wound care (Dr. Chakraborty) Consulted for wound management - no surgical intervention #DM - Hold Home meds - BGM, ISS ACHS - A1C 7.6 #FEN - no IVF - lytes WNL - dyphagia chopped diet w/ nectar liquid #PPx - DVT: Heparin 5,000 unit SQ TID #HCP/contact -daughter Ama [phone] -[facility] aide Marychuy [phone] # Dispo: med-surg Visit type - Emergency Visit Emergency Visit: No - New Patient This patient is new to me today: No - Critical Care Critical Care patient: No
[2017-12-23] MEDS: methylPREDNISolone NA SUCC 40 MG/1 ML VIAL IVPUSH SCH ×4 (03:57→21:40)
[2017-12-23] MEDS: HEPARIN NA (PORCINE) 5,000 UNITS/ML 1ML VIAL SQ SCH ×3 (06:48→21:40)
[2017-12-23] MEDS: GABAPENTIN 300 MG CAPSULE (FP) PO SCH ×3 (06:48→21:40)
[2017-12-23] MEDS: INSULIN SLIDING SCALE (NOVOLOG) 1 VIAL SQ SCH ×4 (06:51→22:05)
[2017-12-23] MEDS ORDERED: INSULIN (NOVOLOG) ASPART 100 UNITS/ML 10ML VIAL ONE (07:30)
[2017-12-23 07:32] LABS: BASO % 0.3 % (0-2.0); EOS % 0.1 % (0-4.5); HEMATOCRIT 37.4 % (35.4-49); HEMOGLOBIN 13.2 GM/dL (11.7-16.9); LYMPH % 17.7 % (8-40); MCH 31.2 pg (25.7-33.7); MCHC 35.2 g/dl (32.0-35.9); MEAN CELL VOLUME 88.5 fl (80-96); MEAN PLT VOLUME 8.9 fl (7.5-11.1); MONO % 3.2 % (3.8-10.2); NEUT % 78.7 % (42.8-82.8); PLATELET COUNT 239 K/MM3 (134-434); RBC 4.22 M/mm3 (4.00-5.60); RDW 14.7 % (11.9-15.9); WHITE BLOOD COUNT 9.8 K/mm3 (4.0-10.0)
[2017-12-23] MEDS: ALBUTEROL SO4 2.5/IPRATROPIUM 0.5 INH SOL 3 ML VIAL.NEB. NEB SCH ×4 (07:35→21:11)
[2017-12-23 08:31] LABS: CHLORIDE 101 mmol/L (98-107); SODIUM 139 mmol/L (136-145)
--- NOTE | 2017-12-23 08:35 | PN ---
Teaching Attending Note Name of Resident: Roman Goins ATTENDING PHYSICIAN STATEMENT I saw and evaluated the patient. I reviewed the resident's note and discussed the case with the resident. I agree with the resident's findings and plan as documented. SUBJECTIVE: Patient is comfortable with no acute distress, no fever or chills. OBJECTIVE: Vital Signs Temperature 99.7 F H 12/23/17 05:39 Pulse Rate 87 12/23/17 05:39 Respiratory Rate 20 12/23/17 05:39 Blood Pressure 144/83 12/23/17 05:39 O2 Sat by Pulse Oximetry (%) 98 12/22/17 21:00 CBCD WBC 9.8 K/mm3 (4.0-10.0) 12/23/17 06:30 RBC 4.22 M/mm3 (4.00-5.60) 12/23/17 06:30 Hgb 13.2 GM/dL (11.7-16.9) 12/23/17 06:30 Hct 37.4 % (35.4-49) 12/23/17 06:30 MCV 88.5 fl (80-96) 12/23/17 06:30 MCHC 35.2 g/dl (32.0-35.9) 12/23/17 06:30 RDW 14.7 % (11.9-15.9) 12/23/17 06:30 Plt Count 239 K/MM3 (134-434) 12/23/17 06:30 MPV 8.9 fl (7.5-11.1) 12/23/17 06:30 CMP Sodium 142 mmol/L (136-145) 12/22/17 08:25 Potassium 3.7 mmol/L (3.5-5.1) 12/22/17 08:25 Chloride 102 mmol/L (98-107) 12/22/17 08:25 Carbon Dioxide 30 mmol/L (21-32) 12/22/17 08:25 Anion Gap 10 MMOL/L (8-16) 12/22/17 08:25 BUN 20 mg/dL (7-18) H 12/22/17 08:25 Creatinine 1.1 mg/dL (0.7-1.3) 12/22/17 08:25 Creat Clearance w eGFR > 60 (>60) 12/22/17 08:25 Random Glucose 275 mg/dL (74-106) H 12/22/17 08:25 Calcium 8.8 mg/dL (8.5-10.1) 12/22/17 08:25 Total Bilirubin 1.0 mg/dL (0.2-1.0) 12/22/17 08:25 AST 22 U/L (15-37) 12/22/17 08:25 ALT 31 U/L (12-78) 12/22/17 08:25 Alkaline Phosphatase 83 U/L (45-117) 12/22/17 08:25 Total Protein 7.4 g/dl (6.4-8.2) 12/22/17 08:25 Albumin 2.5 g/dl (3.4-5.0) L 12/22/17 08:25 CARDIAC ENZYMES Creatine Kinase 224 IU/L (39-308) 12/19/17 21:40 Troponin I 0.03 ng/ml (0.00-0.05) 12/19/17 21:40 Current Medications Generic Name Dose Route Start Last Admin Trade Name Freq PRN Reason Stop Dose Admin Albuterol Sulfate 1 amp 12/21/17 14:01 12/21/17 14:19 Ventolin 0.083% Nebulizer Soln - NEB 1 amp Q4H PRN Administration SHORT OF BREATH/WHEEZING Albuterol/Ipratropium 1 amp 12/21/17 16:00 12/23/17 07:35 Duoneb - NEB 1 amp RQID [facility] Administration Aspirin 81 mg 12/23/17 10:00 Asa - PO DAILY [facility] Diltiazem HCl 120 mg 12/23/17 10:00 Cardizem Cd - PO DAILY [facility] Escitalopram Oxalate 10 mg 12/20/17 17:30 12/22/17 10:24 Lexapro - PO 10 mg DAILY [facility] Administration Furosemide 40 mg 12/20/17 17:30 12/22/17 10:24 Lasix - PO 40 mg DAILY [facility] Administration Gabapentin 300 mg 12/20/17 22:00 12/23/17 06:48 Neurontin - PO 300 mg TID [facility] Administration Heparin Sodium (Porcine) 5,000 unit 12/20/17 06:00 12/23/17 06:48 Heparin - SQ 5,000 unit TID [facility] Administration Ceftriaxone Sodium 1 gm/ 50 mls @ 100 mls/hr 12/21/17 15:15 12/22/17 12:51 Dextrose IVPB 100 mls/hr DAILY [facility] Administration Protocol Insulin Aspart 1 vial 12/20/17 07:00 12/23/17 06:51 Novolog Vial Sliding Scale - SQ 6 units ACHS [facility] Administration Protocol Lisinopril 30 mg 12/20/17 17:15 12/22/17 10:23 Prinivil PO 30 mg DAILY [facility] Administration Methylprednisolone Sodium Succinate 40 mg 12/22/17 15:00 12/23/17 03:57 Solu-Medrol - IVPUSH 40 mg Q6H-IV [facility] Administration Polyethylene Glycol 17 gm 12/20/17 10:00 12/22/17 22:30 Miralax (For Daily Use) - PO 17 grams BID [facility] Administration Senna/Docusate Sodium 2 tablet 12/20/17 14:53 12/22/17 22:28 Pericolace - PO 2 tablet HS PRN Administration CONSTIPATION Home Medications Medication Instructions Recorded Escitalopram Oxalate [Lexapro -] 10 mg PO DAILY 12/10/15 Gabapentin 300 mg PO TID 12/10/15 Repaglinide 2 mg PO BID 12/10/15 Diltiazem Cd [Cardizem Cd -] 120 mg PO DAILY tab 10/22/16 Amlodipine Besylate 10 mg PO DAILY 12/20/17 Azelastine HCl 205.5 mcg NS BID 12/20/17 Ergocalciferol (Vitamin D2) 50,000 unit PO WEEKLY 12/20/17 [Vitamin D2] Furosemide [Lasix -] 40 mg PO DAILY 12/20/17 Lidocaine 5% Top. Ointment 1 applic TP TID 12/20/17 [Xylocaine 5% Top. Ointment] Lisinopril [Prinivil] 30 mg PO DAILY 12/20/17 Microbiology 12/19/17 21:40 Blood - Peripheral Venous Blood Culture - Preliminary NO GROWTH OBTAINED AFTER 72 HOURS, INCUBATION TO CONTINUE FOR 2 DAYS. 12/19/17 21:40 Blood - Peripheral Venous Blood Culture - Preliminary NO GROWTH OBTAINED AFTER 72 HOURS, INCUBATION TO CONTINUE FOR 2 DAYS. 12/19/17 22:00 Urine - Urine Clean Catch, Klebsiella Pneumo Final PE: per resident's note ASSESSMENT AND PLAN: Patient is a 77 y/o male with PMHx of COPD on O2l at home , T2dm, HTN, HLP, h/ o Trach , stroke with Right sided residual weakness, ascending aortic aneurysm and dysphagia who presented with AMS and a fall with no LOC as per family . # AMS due to metabolic encephalopathy :Patient is back to his baseline now. # Acute Leukocytosis: No source of infection is noted ,will monitor #Acute COPD exacerabtion :On IV steroids continue neb. treatments ,on oxygen continue . Pulmonary on the case #Diastolic CHF: resume his home meds ( lasix , lisinopril, and norvasc ) # dysphagia : MBS's report as per Isela Wisdom continue with chopped diet and thin liquid. monitor # DM : cont SSI . A1c 7.8 , conitnue SS with coverage # H/o stroke: will check with the daughter whether he is on any aspirin and Statins , since as per Pharmacy patient is not on it. will check with the daughter whether any reason for the patient is not on any of these treatments. # Constipation continue with Miralax, Senna continue DVT Px: Heparin
[2017-12-23 08:38] LABS: ANION GAP 8 MMOL/L (8-16); BLOOD UREA NITROGEN 18 mg/dL (7-18); CALCIUM 8.6 mg/dL (8.5-10.1); CO2 30 mmol/L (21-32); CREATININE 0.9 mg/dL (0.7-1.3); GLUCOSE,RANDOM 274 mg/dL (74-106)
[2017-12-23] MEDS ORDERED: PT OWN MED DRAWER 7, Y5N ONE (09:43)
[2017-12-23] MEDS ORDERED: DEXTROSE 5%-WATER - 50 ML IVPB ONE (09:45)
[2017-12-23] MEDS ORDERED: cefTRIAXone SODIUM 1 GM VIAL ONE (09:45)
[2017-12-23] MEDS: CEFTRIAXONE 1 GM in DEXTROSE 5%-WATER - 50 ML IVPB SCH (10:04)
[2017-12-23] MEDS: LISINOPRIL 20 MG TABLET (FP) PO SCH (10:09)
[2017-12-23] MEDS: ESCITALOPRAM OXALATE 10 MG TABLET (FP) PO SCH (10:09)
[2017-12-23] MEDS: ASPIRIN 81 MG CHEWABLE TABLETS PO SCH (10:09)
[2017-12-23] MEDS: FUROSEMIDE 40 MG TABLET (FP) PO SCH (10:09)
[2017-12-23] MEDS: POLYETHYLENE GLYCOL 3350 119 GM BTL PO SCH ×2 (10:12→22:02)
--- NOTE | 2017-12-23 10:28 | PN ---
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 Pt on chopped diet/nectar thick liquid. Still with audible upper airway secretions.Followed by Pulmonary. Tolerated 3 oz water test via straw. Consider thin liquid. (-) aspiration on MBS.
--- NOTE | 2017-12-23 10:30 | EKG ---
Test Reason : Blood Pressure : / mmHG Vent. Rate : 101 BPM Atrial Rate : 136 BPM P-R Int : 162 ms QRS Dur : 100 ms QT Int : 356 ms P-R-T Axes : 066 -31 044 degrees QTc Int : 461 ms SINUS TACHYCARDIA WITH PREMATURE ATRIAL COMPLEXES WITH ABERRANT CONDUCTION LEFT AXIS DEVIATION ABNORMAL ECG WHEN COMPARED WITH ECG OF 19-DEC-2017 22:16, FUSION COMPLEXES ARE NO LONGER PRESENT PREMATURE VENTRICULAR COMPLEXES ARE NO LONGER PRESENT ABERRANT CONDUCTION IS NOW PRESENT Confirmed by LILY PUENTE, WILTON ([id number]) on 12/23/2017 10:30:16 AM Referred By: AZIZA WILLINGHAM Confirmed By:WILTON BAUTISTA MD
--- NOTE | 2017-12-23 11:21 | PN ---
Progress Note (short form) - Note Progress Note: PULMONARY Family present, patient doesn't have complaints (?reliability) tmax 99.7 Gen: no acute distress Heart: RRR Lung: bilateral rhonchi minimal Abd: soft, nontender Ext: no edema/no calf tenderness labs/meds/notes/images reviewed A/P COPD LV Diastolic Dysfunction Altered Mental Status h/o CVA DM - bronchodilators - short course of steroids - O2 to keep SpO2 >90% - glycemic control/diuretics/antibiotics - DVT prophylaxis - OOB to chair Britton GILES MD
--- NOTE | 2017-12-23 11:37 | PN ---
Physical Exam: SUBJECTIVE: Patient seen and examined at bedside. Complains of an episode of crushing, severe central chest pain overnight, now resolved. Heavy tracheal breathing. Abdominal distention. Denies SOB/dyspnea, f/c, n/v/d. OBJECTIVE: Vital Signs Period Temp Pulse Resp BP Sys/Pham Pulse Ox Last 24 Hr 98.9 F-99.7 F 86-87 20-20 129-144/69-83 98 GENERAL: A&Ox3, NAD HEAD: NC/AT EYES: PERRLA, EOMI, sclera anicteric NECK: Trachea midline, full range of motion, supple, no JVD LUNGS: tracheal breath sounds, coarse ronchi diffusely HEART: normal S1S2, RRR, no m/r/g ABDOMEN: distended, tympanitic, non-tender, reducible umbilical hernia EXTREMITIES: 2+ pulses, warm, well-perfused, 1+ pitting edema in b/l LE NEUROLOGICAL: -CN exam notable for significant right and mild left facial droop, dysarthria, otherwise intact -strength 4/5 in LUE and LLE, 0/5 in proximal RUE, 2/5 in distal RUE, 0/5 in proximal RLE, 1/5 in distal RLE -sensation grossly intact -could not evaluate FtN or HtS -could not elicit biceps or patellar reflexes -upgoing plantars b/l R>L SKIN: stage 2 decubitus ulcers on buttocks b/l, non-infected appearing Laboratory Results - last 24 hr 12/22/17 12/22/17 12/22/17 12:29 17:14 22:35 WBC RBC Hgb Hct MCV MCH MCHC RDW Plt Count MPV Absolute Neuts (auto) Neutrophils % Lymphocytes % Monocytes % Eosinophils % Basophils % Nucleated RBC % Sodium Potassium Chloride Carbon Dioxide Anion Gap BUN Creatinine Creat Clearance w eGFR POC Glucometer 323 317 315 Random Glucose Calcium 12/23/17 12/23/17 12/23/17 06:30 06:30 06:50 WBC 9.8 RBC 4.22 Hgb 13.2 Hct 37.4 MCV 88.5 MCH 31.2 MCHC 35.2 RDW 14.7 Plt Count 239 MPV 8.9 Absolute Neuts (auto) 7.7 Neutrophils % 78.7 D Lymphocytes % 17.7 D Monocytes % 3.2 L Eosinophils % 0.1 Basophils % 0.3 Nucleated RBC % 0 Sodium 139 Potassium 4.0 Chloride 101 Carbon Dioxide 30 Anion Gap 8 BUN 18 Creatinine 0.9 Creat Clearance w eGFR > 60 POC Glucometer 286 Random Glucose 274 H Calcium 8.6 Active Medications Generic Name Dose Route Start Last Admin Trade Name Freq PRN Reason Stop Dose Admin Albuterol Sulfate 1 amp 12/21/17 14:01 12/21/17 14:19 Ventolin 0.083% Nebulizer Soln - NEB 1 amp Q4H PRN Administration SHORT OF BREATH/WHEEZING Albuterol/Ipratropium 1 amp 12/21/17 16:00 12/23/17 07:35 Duoneb - NEB 1 amp RQID [facility] Administration Aspirin 81 mg 12/23/17 10:00 12/23/17 10:09 Asa - PO 81 mg DAILY FLORIN Administration Atorvastatin Calcium 40 mg 12/23/17 22:00 Lipitor - PO HS [facility]ORIN Diltiazem HCl 120 mg 12/23/17 10:00 12/23/17 10:09 Cardizem Cd - PO 120 mg DAILY [facility] Administration Escitalopram Oxalate 10 mg 12/20/17 17:30 12/23/17 10:09 Lexapro - PO 10 mg DAILY [facility] Administration Furosemide 40 mg 12/20/17 17:30 12/23/17 10:09 Lasix - PO 40 mg DAILY [facility] Administration Gabapentin 300 mg 12/20/17 22:00 12/23/17 06:48 Neurontin - PO 300 mg TID FLORIN Administration Heparin Sodium (Porcine) 5,000 unit 12/20/17 06:00 12/23/17 06:48 Heparin - SQ 5,000 unit TID [facility]IN Administration Ceftriaxone Sodium 1 gm/ 50 mls @ 100 mls/hr 12/21/17 15:15 12/23/17 10:04 Dextrose IVPB 100 mls/hr DAILY [facility]IN Administration Protocol Insulin Aspart 1 vial 12/20/17 07:00 12/23/17 06:51 Novolog Vial Sliding Scale - SQ 6 units ACHS FL[facility]IN Administration Protocol Lisinopril 30 mg 12/20/17 17:15 12/23/17 10:09 Prinivil PO 30 mg DAILY [facility] Administration Methylprednisolone Sodium Succinate 40 mg 12/22/17 15:00 12/23/17 10:03 Solu-Medrol - IVPUSH 40 mg Q6H-IV [facility] Administration Polyethylene Glycol 17 gm 12/20/17 10:00 12/23/17 10:12 Miralax (For Daily Use) - PO 17 grams BID [facility] Administration Senna/Docusate Sodium 2 tablet 12/20/17 14:53 12/22/17 22:28 Pericolace - PO 2 tablet HS PRN Administration CONSTIPATION ASSESSMENT/PLAN: 77 y/o M w/ PMHx CVA w/ residual R-sided deficits, chronic dysphagia w/ prior trach, COPD on home O2, diastolic CHF, T2DM, HTN, HLD, admitted for AMS and near -fall following progressing weakness observed by [employer] #AMS - mental status at baseline, metabolic encephalopathy resolved - Leukocytosis resolved to 9.8 - CXR and Head CT demonstrated no acute pathology - no growth on BCx - UCx grew >100k lac+ Gnb, started on empiric Ceftriaxone 1g daily - home Lexapro 10 daily #chest pain -one episode of crushing central cp overnight -stat EKG: non-spec abnormalities w/ interval change from previous -repeat CXR: cannot exclude pericardial effusion -trop 0.05, trending -Cards following (Dr. Beltrán) #UTI -WBC resolved -UCx grew pena-sensitive Klebsiella -started on empiric Ceftriaxone 1g daily #COPD - no infiltrate on CXR - no home steroids - on 2L home O2 per health aide - 2L NC - Duonebs standing and albuterol PRN per Dr. Grant - IV solumedrol [address] Stiles - repeat CXR per Dr. Grant - pulmonology reccs appreciated #CHF - no evidence of exacerbation - echo: 60% EF, normal LV, trace MR, trace TR, moderate - home meds: lasix 40, lisinopril 30, norvasc 10, dilt 120 daily #Constipation/distention -initial AXR unrevealing -Abd CT w/ contrast showed dilatation of sigmoid, mild-moderate fecal retention , evidence of cystitis, and diffuse hepatic steatosis -repeat AXR: very dilated loops of bowel, read as unchanged vs prior CT -GI reccs appreciated #dysphagia -S/S evaluated -modified barium swallow study normal -dyphagia chopped diet w/ nectar liquid #Decubitis Ulcers - Wound care (Dr. Chakraborty) Consulted for wound management - no surgical intervention #DM - Hold Home meds - BGM, ISS ACHS - A1C 7.6 #h/o CVA -ASA 81 -initiating atorvastatin 40 qHS #FEN - no IVF - lytes WNL - dyphagia chopped diet w/ nectar liquid #PPx - DVT: Heparin 5,000 unit SQ TID #HCP/contact -himanshu Serrato [phone] -also health aide Marychuy [phone] # Dispo: med-surg Visit type - Emergency Visit Emergency Visit: No - New Patient This patient is new to me today: No - Critical Care Critical Care patient: No
--- NOTE | 2017-12-23 13:48 | PN ---
Progress Note, Physician History of Present Illness: The patient denies chest pain, shortness of breath, near or true syncope, palpitations, sensorium at baseline. - Current Medication List Current Medications: Active Medications Albuterol Sulfate (Ventolin 0.083% Nebulizer Soln -) 1 amp NEB Q4H PRN PRN Reason: SHORT OF BREATH/WHEEZING Last Admin: 12/21/17 14:19 Dose: 1 amp Albuterol/Ipratropium (Duoneb -) 1 amp NEB RQID [facility] Last Admin: 12/23/17 11:45 Dose: 1 amp Aspirin (Asa -) 81 mg PO DAILY [facility] Last Admin: 12/23/17 10:09 Dose: 81 mg Atorvastatin Calcium (Lipitor -) 40 mg PO HS [facility] Diltiazem HCl (Cardizem Cd -) 120 mg PO DAILY [facility] Last Admin: 12/23/17 10:09 Dose: 120 mg Escitalopram Oxalate (Lexapro -) 10 mg PO DAILY [facility] Last Admin: 12/23/17 10:09 Dose: 10 mg Furosemide (Lasix -) 40 mg PO DAILY [facility] Last Admin: 12/23/17 10:09 Dose: 40 mg Gabapentin (Neurontin -) 300 mg PO TID [facility] Last Admin: 12/23/17 06:48 Dose: 300 mg Heparin Sodium (Porcine) (Heparin -) 5,000 unit SQ TID [facility] Last Admin: 12/23/17 06:48 Dose: 5,000 unit Ceftriaxone Sodium 1 gm/ (Dextrose) 50 mls @ 100 mls/hr IVPB DAILY [facility]; Protocol Last Admin: 12/23/17 10:04 Dose: 100 mls/hr Insulin Aspart (Novolog Vial Sliding Scale -) 1 vial SQ ACHS [facility]; Protocol Last Admin: 12/23/17 11:40 Dose: 10 units Lisinopril (Prinivil) 30 mg PO DAILY [facility] Last Admin: 12/23/17 10:09 Dose: 30 mg Methylprednisolone Sodium Succinate (Solu-Medrol -) 40 mg IVPUSH Q6H-IV [facility] Last Admin: 12/23/17 10:03 Dose: 40 mg Polyethylene Glycol (Miralax (For Daily Use) -) 17 gm PO BID [facility] Last Admin: 12/23/17 10:12 Dose: 17 grams Senna/Docusate Sodium (Pericolace -) 2 tablet PO HS PRN PRN Reason: CONSTIPATION Last Admin: 12/22/17 22:28 Dose: 2 tablet - Objective Vital Signs: Vital Signs Temperature 99.7 F H 12/23/17 05:39 Pulse Rate 87 12/23/17 05:39 Respiratory Rate 20 12/23/17 05:39 Blood Pressure 144/83 12/23/17 05:39 O2 Sat by Pulse Oximetry (%) 98 12/22/17 21:00 Constitutional: Yes: No Distress, Calm Neck: Yes: Supple Cardiovascular: Yes: Regular Rate and Rhythm Respiratory: Yes: Regular, CTA Bilaterally Gastrointestinal: Yes: Normal Bowel Sounds, Soft Edema: No Labs: CBC, BMP 12/23/17 06:30 12/23/17 06:30 INR, PTT INR 1.34 (0.83-1.09) H 12/19/17 21:40 - ....Imaging EKG: Report Reviewed (ST @ 101 PAC, PVC) Problem List - Problems (1) Toxic metabolic encephalopathy Code(s): G92 - TOXIC ENCEPHALOPATHY (2) COPD (chronic obstructive pulmonary disease) Code(s): J44.9 - CHRONIC OBSTRUCTIVE PULMONARY DISEASE, UNSPECIFIED Qualifiers: Emphysema type: unspecified (3) H/O: CVA (cerebrovascular accident) Code(s): Z86.73 - PRSNL HX OF TIA (TIA), AND CEREB INFRC W/O RESID DEFICITS (4) Hypertension Code(s): I10 - ESSENTIAL (PRIMARY) HYPERTENSION Qualifiers: Hypertension type: essential hypertension Qualified Code(s): I10 - Essential (primary) hypertension (5) Diastolic dysfunction Code(s): I51.9 - HEART DISEASE, UNSPECIFIED Assessment/Plan 12/20/2017 Echo: Normal LV size and fxn, tr MR, TR 1. COPD 2. LV Diastolic Dysfunction 3. Altered Mental Status referable to toxic-metabolic encephelopathy since resolved 4. h/o CVA with residual right-sided weakness and chronic dysphagia 5. UTI P:1. Continue Cardizem CD 120 qd, lisinopril, Lasix, resumed ASA 81 qd 2. Inhaled bronchodilators standing and PRN, IV steroids, complete abx course 3. O2 to keep SpO2 >90% 4. DVT and GI prophylaxis
[2017-12-23 21:13] VITALS: BMI 34.4
[2017-12-23] MEDS: ATORVASTATIN CA 40 MG TABLET (FP) PO SCH (21:40)
[2017-12-24] MEDS: ALBUTEROL SO4 0.083% IH SOL 2.5 MG/3 ML VIAL.NEB. NEB PRN (00:58)
[2017-12-24] MEDS: methylPREDNISolone NA SUCC 40 MG/1 ML VIAL IVPUSH SCH ×4 (03:15→20:03)
[2017-12-24] MEDS: INSULIN SLIDING SCALE (NOVOLOG) 1 VIAL SQ SCH ×4 (06:09→21:45)
[2017-12-24] MEDS: HEPARIN NA (PORCINE) 5,000 UNITS/ML 1ML VIAL SQ SCH ×3 (06:10→21:34)
[2017-12-24] MEDS: GABAPENTIN 300 MG CAPSULE (FP) PO SCH ×3 (06:11→21:34)
[2017-12-24] MEDS: ALBUTEROL SO4 2.5/IPRATROPIUM 0.5 INH SOL 3 ML VIAL.NEB. NEB SCH ×4 (07:23→20:10)
--- NOTE | 2017-12-24 08:33 | PN ---
Teaching Attending Note Name of Resident: Roman Goins ATTENDING PHYSICIAN STATEMENT I saw and evaluated the patient. I reviewed the resident's note and discussed the case with the resident. I agree with the resident's findings and plan as documented. SUBJECTIVE: No new changes comfortable with no acute distress, at bedside OBJECTIVE: Vital Signs Temperature 98.7 F 12/24/17 06:00 Pulse Rate 104 H 12/24/17 06:00 Respiratory Rate 18 12/24/17 06:00 Blood Pressure 137/77 12/24/17 06:00 O2 Sat by Pulse Oximetry (%) 98 12/23/17 21:00 CBCD WBC 9.8 K/mm3 (4.0-10.0) 12/23/17 06:30 RBC 4.22 M/mm3 (4.00-5.60) 12/23/17 06:30 Hgb 13.2 GM/dL (11.7-16.9) 12/23/17 06:30 Hct 37.4 % (35.4-49) 12/23/17 06:30 MCV 88.5 fl (80-96) 12/23/17 06:30 MCHC 35.2 g/dl (32.0-35.9) 12/23/17 06:30 RDW 14.7 % (11.9-15.9) 12/23/17 06:30 Plt Count 239 K/MM3 (134-434) 12/23/17 06:30 MPV 8.9 fl (7.5-11.1) 12/23/17 06:30 CMP Sodium 139 mmol/L (136-145) 12/23/17 06:30 Potassium 4.0 mmol/L (3.5-5.1) 12/23/17 06:30 Chloride 101 mmol/L (98-107) 12/23/17 06:30 Carbon Dioxide 30 mmol/L (21-32) 12/23/17 06:30 Anion Gap 8 MMOL/L (8-16) 12/23/17 06:30 BUN 18 mg/dL (7-18) 12/23/17 06:30 Creatinine 0.9 mg/dL (0.7-1.3) 12/23/17 06:30 Creat Clearance w eGFR > 60 (>60) 12/23/17 06:30 Random Glucose 274 mg/dL (74-106) H 12/23/17 06:30 Calcium 8.6 mg/dL (8.5-10.1) 12/23/17 06:30 Total Bilirubin 1.0 mg/dL (0.2-1.0) 12/22/17 08:25 AST 22 U/L (15-37) 12/22/17 08:25 ALT 31 U/L (12-78) 12/22/17 08:25 Alkaline Phosphatase 83 U/L (45-117) 12/22/17 08:25 Total Protein 7.4 g/dl (6.4-8.2) 12/22/17 08:25 Albumin 2.5 g/dl (3.4-5.0) L 12/22/17 08:25 CARDIAC ENZYMES Creatine Kinase 224 IU/L (39-308) 12/19/17 21:40 Troponin I 0.05 ng/ml (0.00-0.05) 12/23/17 20:45 Current Medications Generic Name Dose Route Start Last Admin Trade Name Freq PRN Reason Stop Dose Admin Albuterol Sulfate 1 amp 12/21/17 14:01 12/24/17 00:58 Ventolin 0.083% Nebulizer Soln - NEB 1 amp Q4H PRN Administration SHORT OF BREATH/WHEEZING Albuterol/Ipratropium 1 amp 12/21/17 16:00 12/24/17 07:23 Duoneb - NEB 1 amp RQID FLORIN Administration Aspirin 81 mg 12/23/17 10:00 12/23/17 10:09 Asa - PO 81 mg DAILY [facility]OR[facility] Administration Atorvastatin Calcium 40 mg 12/23/17 22:00 12/23/17 21:40 Lipitor - PO 40 mg HS [facility]ORIN Administration Diltiazem HCl 120 mg 12/23/17 10:00 12/23/17 10:09 Cardizem Cd - PO 120 mg DAILY [facility] Administration Escitalopram Oxalate 10 mg 12/20/17 17:30 12/23/17 10:09 Lexapro - PO 10 mg DAILY [facility] Administration Furosemide 40 mg 12/20/17 17:30 12/23/17 10:09 Lasix - PO 40 mg DAILY [facility] Administration Gabapentin 300 mg 12/20/17 22:00 12/24/17 06:11 Neurontin - PO 300 mg TID [facility] Administration Heparin Sodium (Porcine) 5,000 unit 12/20/17 06:00 12/24/17 06:10 Heparin - SQ 5,000 unit TID [facility] Administration Ceftriaxone Sodium 1 gm/ 50 mls @ 100 mls/hr 12/21/17 15:15 12/23/17 10:04 Dextrose IVPB 100 mls/hr DAILY [facility] Administration Protocol Insulin Aspart 1 vial 12/20/17 07:00 12/24/17 06:09 Novolog Vial Sliding Scale - SQ 10 units ACHS [facility] Administration Protocol Lisinopril 30 mg 12/20/17 17:15 12/23/17 10:09 Prinivil PO 30 mg DAILY [facility] Administration Methylprednisolone Sodium Succinate 40 mg 12/22/17 15:00 12/24/17 08:25 Solu-Medrol - IVPUSH 40 mg Q6H-IV [facility] Administration Polyethylene Glycol 17 gm 12/20/17 10:00 12/23/17 22:02 Miralax (For Daily Use) - PO 17 grams BID [facility] Administration Senna/Docusate Sodium 2 tablet 12/20/17 14:53 12/22/17 22:28 Pericolace - PO 2 tablet HS PRN Administration CONSTIPATION Home Medications Medication Instructions Recorded Escitalopram Oxalate [Lexapro -] 10 mg PO DAILY 12/10/15 Gabapentin 300 mg PO TID 12/10/15 Repaglinide 2 mg PO BID 12/10/15 Diltiazem Cd [Cardizem Cd -] 120 mg PO DAILY tab 10/22/16 Amlodipine Besylate 10 mg PO DAILY 12/20/17 Azelastine HCl 205.5 mcg NS BID 12/20/17 Ergocalciferol (Vitamin D2) 50,000 unit PO WEEKLY 12/20/17 [Vitamin D2] Furosemide [Lasix -] 40 mg PO DAILY 12/20/17 Lidocaine 5% Top. Ointment 1 applic TP TID 12/20/17 [Xylocaine 5% Top. Ointment] Lisinopril [Prinivil] 30 mg PO DAILY 12/20/17 Microbiology 12/19/17 21:40 Blood - Peripheral Venous Blood Culture - Preliminary NO GROWTH OBTAINED AFTER 96 HOURS, INCUBATION TO CONTINUE FOR 1 DAYS. 12/19/17 21:40 Blood - Peripheral Venous Blood Culture - Preliminary NO GROWTH OBTAINED AFTER 96 HOURS, INCUBATION TO CONTINUE FOR 1 DAYS. 12/19/17 22:00 Urine - Urine Clean Catch Urine Culture - Final Klebsiella Pneumoniae Gen: no acute distress Heart: RRR Lung: bilateral rhonchi minimal Abd: soft, nontender Ext: no edema/no calf tenderness ASSESSMENT AND PLAN: Patient is a 77 y/o male with PMHx of COPD on O2l at home , T2dm, HTN, HLP, h/ o Trach , stroke with Right sided residual weakness, ascending aortic aneurysm and dysphagia who presented with AMS and a fall with no LOC as per family . # AMS due to metabolic encephalopathy : due to UTI Due to Klebsiella Pneumoniae Patient is back to his baseline now. # Acute UTI due to Klebsiella Pneumoniae on Rocephin , sensitive to it. Leukocytosis improved 9.8 now #Acute COPD exacerabtion :On IV steroids continue neb. treatments ,on oxygen continue . Pulmonary on the case #Diastolic CHF: resume his home meds ( lasix , lisinopril, and norvasc ) # dysphagia : MBS's report as per Isela Wisdom continue with chopped diet and thin liquid. monitor # DM : cont SSI . A1c 7.8 , conitnue SS with coverage # H/o stroke: will check with the daughter whether he is on any aspirin and Statins , since as per Pharmacy patient is not on it. will check with the daughter whether any reason for the patient is not on any of these treatments. # Constipation continue with Miralax, Senna continue DVT Px: Heparin
[2017-12-24 08:37] LABS: BASO % 0.3 % (0-2.0); HEMATOCRIT 37.6 % (35.4-49); LYMPH % 14.5 % (8-40); MCH 30.9 pg (25.7-33.7); MCHC 34.6 g/dl (32.0-35.9); MEAN CELL VOLUME 89.5 fl (80-96); MEAN PLT VOLUME 9.3 fl (7.5-11.1); MONO % 5.6 % (3.8-10.2); NEUT % 79.6 % (42.8-82.8); PLATELET COUNT 284 K/MM3 (134-434); RBC 4.21 M/mm3 (4.00-5.60)
[2017-12-24 09:03] LABS: ANION GAP 11 MMOL/L (8-16); BLOOD UREA NITROGEN 31 mg/dL (7-18); CHLORIDE 95 mmol/L (98-107); CO2 28 mmol/L (21-32); POTASSIUM 3.8 mmol/L (3.5-5.1); SODIUM 134 mmol/L (136-145)
[2017-12-24 09:04] LABS: CREATININE 1.2 mg/dL (0.7-1.3)
[2017-12-24 09:24] LABS: GLUCOSE,RANDOM 360 mg/dL (74-106)
[2017-12-24] MEDS ORDERED: DEXTROSE 5%-WATER - 50 ML IVPB ONE (09:50)
[2017-12-24] MEDS ORDERED: cefTRIAXone SODIUM 1 GM VIAL ONE (09:50)
[2017-12-24] MEDS: ESCITALOPRAM OXALATE 10 MG TABLET (FP) PO SCH (10:07)
[2017-12-24] MEDS: FUROSEMIDE 40 MG TABLET (FP) PO SCH (10:07)
[2017-12-24] MEDS: POLYETHYLENE GLYCOL 3350 119 GM BTL PO SCH ×2 (10:07→21:33)
[2017-12-24] MEDS: LISINOPRIL 20 MG TABLET (FP) PO SCH (10:07)
[2017-12-24] MEDS: ASPIRIN 81 MG CHEWABLE TABLETS PO SCH (10:07)
[2017-12-24] MEDS: CEFTRIAXONE 1 GM in DEXTROSE 5%-WATER - 50 ML IVPB SCH (10:08)
--- NOTE | 2017-12-24 12:29 | PN ---
Progress Note (short form) - Note Progress Note: PULMONARY Still with shortness of breath, cough and chest congestion. Vital Signs Period Temp Pulse Resp BP Sys/Pham Pulse Ox Last 24 Hr 98.5 F-98.8 F 87-112 18-20 137-160/70-84 97-98 Gen: mildly tachypneic at rest Heart: RRR Lung: bilateral rhonchi Abd: soft, nontender Ext: no edema CBC, BMP 12/24/17 08:00 12/24/17 08:00 Active Medications Albuterol Sulfate (Ventolin 0.083% Nebulizer Soln -) 1 amp NEB Q4H PRN PRN Reason: SHORT OF BREATH/WHEEZING Last Admin: 12/24/17 00:58 Dose: 1 amp Albuterol/Ipratropium (Duoneb -) 1 amp NEB RQID [facility] Last Admin: 12/24/17 11:15 Dose: 1 amp Aspirin (Asa -) 81 mg PO DAILY [facility] Last Admin: 12/24/17 10:07 Dose: 81 mg Atorvastatin Calcium (Lipitor -) 40 mg PO HS [facility] Last Admin: 12/23/17 21:40 Dose: 40 mg Diltiazem HCl (Cardizem Cd -) 120 mg PO DAILY [facility] Last Admin: 12/24/17 10:07 Dose: 120 mg Escitalopram Oxalate (Lexapro -) 10 mg PO DAILY [facility] Last Admin: 12/24/17 10:07 Dose: 10 mg Furosemide (Lasix -) 40 mg PO DAILY [facility] Last Admin: 12/24/17 10:07 Dose: 40 mg Gabapentin (Neurontin -) 300 mg PO TID [facility] Last Admin: 12/24/17 06:11 Dose: 300 mg Heparin Sodium (Porcine) (Heparin -) 5,000 unit SQ TID [facility] Last Admin: 12/24/17 06:10 Dose: 5,000 unit Ceftriaxone Sodium 1 gm/ (Dextrose) 50 mls @ 100 mls/hr IVPB DAILY [facility]; Protocol Last Admin: 12/24/17 10:08 Dose: 100 mls/hr Insulin Aspart (Novolog Vial Sliding Scale -) 1 vial SQ ACHS [facility]; Protocol Last Admin: 12/24/17 10:23 Dose: 12 units Lisinopril (Prinivil) 30 mg PO DAILY [facility] Last Admin: 12/24/17 10:07 Dose: 30 mg Methylprednisolone Sodium Succinate (Solu-Medrol -) 40 mg IVPUSH Q6H-IV [facility] Last Admin: 12/24/17 08:25 Dose: 40 mg Polyethylene Glycol (Miralax (For Daily Use) -) 17 gm PO BID [facility] Last Admin: 12/24/17 10:07 Dose: 17 grams Senna/Docusate Sodium (Pericolace -) 2 tablet PO HS PRN PRN Reason: CONSTIPATION Last Admin: 12/22/17 22:28 Dose: 2 tablet A/P Acute COPD Exacerbation r/o Pneumonia LV Diastolic Dysfunction Altered Mental Status h/o CVA - continue antibiotics - inhaled bronchodilators standing and PRN - continue medrol at current dose - O2 to keep SpO2 >90% - DVT prophylaxis
--- NOTE | 2017-12-24 17:00 | CONSULT ---
Consult Consult Specialty:: Endocrinilogy Referred by:: Dr Crane Reason for Consultation:: Hyperglycemia - History of Present Illness Chief Complaint: AMS History of Present Illness: This is a 77 y/o male with h/o HTN, HLD, DM Type 2 for about 6 years, on Insulin for about 5, COPD, CHF (Diastolic dysfunction), Ischemic CVA (Residual right sided weakness), and Chronic Dysphagia (Trach in the past) presented with altered mental status for the past few days. While he was moving into a wheel chair on day of admission, he felt some right leg numbness and his right leg eventually gave out. As per chart review, patient has had increasing confusion accompanied with diffuse weakness for the past week, decreased exercise tolerance for the past few days, and worsening appetite. Talked to yoly over phone who says that pt was taking levemir 45 at home. FS usually 180 to 200 in the morning. No visual symptoms. Has pain and numbness of Rt leg. 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 Endocrine: Yes: Diabetes Mellitus - Alcohol/Substance Use Hx Alcohol Use: No - Smoking History Smoking history: Never smoked Have you smoked in the past 12 months: No Aproximately how many cigarettes per day: 0 If you are a former smoker, when did you quit?: 6 years ago Home Medications - Allergies Allergies/Adverse Reactions: Allergies Allergy/AdvReac Type Severity Reaction Status Date / Time No Known Allergies Allergy Verified 12/19/17 18:31 - Home Medications Home Medications: Ambulatory Orders Escitalopram Oxalate [Lexapro -] 10 mg PO DAILY 12/10/15 Gabapentin 300 mg PO TID 12/10/15 Repaglinide 2 mg PO BID 12/10/15 Diltiazem Cd [Cardizem Cd -] 120 mg PO DAILY tab 10/22/16 Amlodipine Besylate 10 mg PO DAILY 12/20/17 Azelastine HCl 205.5 mcg NS BID 12/20/17 Ergocalciferol (Vitamin D2) [Vitamin D2] 50,000 unit PO WEEKLY 12/20/17 Furosemide [Lasix -] 40 mg PO DAILY 12/20/17 Lidocaine 5% Top. Ointment [Xylocaine 5% Top. Ointment] 1 applic TP TID Lisinopril [Prinivil] 30 mg PO DAILY 12/20/17 Family Disease History - Family Disease History Other Family History: No family h/o DM Review of Systems - Review of Systems Constitutional: reports: No Symptoms Eyes: reports: No Symptoms HENT: reports: No Symptoms Neck: reports: No Symptoms Cardiovascular: reports: No Symptoms Respiratory: reports: No Symptoms Gastrointestinal: reports: No Symptoms Breasts: reports: No Symptoms Reported Musculoskeletal: reports: No Symptoms Neurological: reports: Numbness (Rt leg), Other (Weakness of Rt extremeties) Endocrine: reports: No Symptoms Physical Exam Vital Signs: Vital Signs Temperature 98.4 F 12/24/17 14:14 Pulse Rate 92 H 12/24/17 14:14 Respiratory Rate 20 12/24/17 10:00 Blood Pressure 135/72 12/24/17 14:14 O2 Sat by Pulse Oximetry (%) 97 12/24/17 09:00 Constitutional: Yes: No Distress, Calm Eyes: Yes: Conjunctiva Clear, EOM Intact HENT: Yes: Atraumatic, Normocephalic Neck: Yes: Supple, Trachea Midline Cardiovascular: Yes: Regular Rate and Rhythm Respiratory: Yes: Regular, CTA Bilaterally Gastrointestinal: Yes: Normal Bowel Sounds, Soft Musculoskeletal: Yes: WNL Extremities: Yes: WNL Edema: No Neurological: Yes: Alert, Oriented, Other (weakness of Rt extremities) Labs: CBC, BMP 12/24/17 08:00 12/24/17 08:00 Assessment/Plan AP: AMS: Improving UTI CHF COPD Decubitus ulcer T2DM with hyperglycemia BGM QACHS Start Levemir 15 units daily at HS Novolog SS On Methylprednisone Bronchodilators Will F/U
[2017-12-24] MEDS: ATORVASTATIN CA 40 MG TABLET (FP) PO SCH (21:34)
[2017-12-24] MEDS ORDERED: INSULIN (LEVEMIR) 100 UNITS/ML UNITS SQ SCH (22:00)
[2017-12-25] MEDS: INSULIN SLIDING SCALE (NOVOLOG) 1 VIAL SQ SCH ×6 (02:17→21:43)
[2017-12-25] MEDS: methylPREDNISolone NA SUCC 40 MG/1 ML VIAL IVPUSH SCH ×4 (02:18→21:44)
[2017-12-25] MEDS: GABAPENTIN 300 MG CAPSULE (FP) PO SCH ×3 (05:24→21:44)
[2017-12-25] MEDS: HEPARIN NA (PORCINE) 5,000 UNITS/ML 1ML VIAL SQ SCH ×3 (05:24→21:44)
[2017-12-25] MEDS: ALBUTEROL SO4 2.5/IPRATROPIUM 0.5 INH SOL 3 ML VIAL.NEB. NEB SCH ×4 (07:32→20:01)
[2017-12-25] MEDS ORDERED: cefTRIAXone SODIUM 1 GM VIAL ONE (10:12)
[2017-12-25] MEDS ORDERED: DEXTROSE 5%-WATER - 50 ML IVPB ONE (10:13)
[2017-12-25] MEDS: FUROSEMIDE 40 MG TABLET (FP) PO SCH (10:14)
[2017-12-25] MEDS: LISINOPRIL 20 MG TABLET (FP) PO SCH (10:14)
[2017-12-25] MEDS: CEFTRIAXONE 1 GM in DEXTROSE 5%-WATER - 50 ML IVPB SCH (10:14)
[2017-12-25] MEDS: ASPIRIN 81 MG CHEWABLE TABLETS PO SCH (10:14)
[2017-12-25] MEDS: ESCITALOPRAM OXALATE 10 MG TABLET (FP) PO SCH (10:14)
--- NOTE | 2017-12-25 10:38 | PN ---
Physical Exam: SUBJECTIVE: Patient seen and examined. Improved expectoration of sputum. No SOB , uses home O2. Blood glucose still high in 300s. Ucx -Klebsiella OBJECTIVE: Vital Signs Period Temp Pulse Resp BP Sys/Pham Pulse Ox Last 24 Hr 98 F-98.8 F 65-92 19-20 131-137/61-83 95 GENERAL: The patient is awake, alert, and fully oriented, in no acute distress. Communicative NC HEAD: R lower facial droop. EYES: PERRL, extraocular movements intact, sclera anicteric, conjunctiva clear. ENT: moist mucous membranes. NECK: supple. LUNGS: Breath sounds equal, clear to auscultation bilaterally, no wheezes, no crackles, no accessory muscle use. HEART: Regular rate and rhythm, S1, S2 ABDOMEN: Soft, nontender, nondistended, normoactive bowel sounds EXTREMITIES: 2+ pulses, warm, well-perfused, no edema. NEUROLOGICAL: Cranial nerves II through XII grossly intact. L facial droop. slurred speech, R sided weakness. RLE 1/5, RUE- 2/5, strength, 5/5 LUE, 3/5 LLE PSYCH: Normal mood, normal affect. SKIN: Warm, dry, normal turgor, no rashes or lesions noted CBC, BMP 12/24/17 08:00 12/24/17 08:00 Laboratory Results - last 24 hr 12/25/17 12/25/17 02:10 05:17 POC Glucometer 399 298 Active Medications Generic Name Dose Route Start Last Admin Trade Name Freq PRN Reason Stop Dose Admin Albuterol Sulfate 1 amp 12/21/17 14:01 12/24/17 00:58 Ventolin 0.083% Nebulizer Soln - NEB 1 amp Q4H PRN Administration SHORT OF BREATH/WHEEZING Albuterol/Ipratropium 1 amp 12/21/17 16:00 12/25/17 07:32 Duoneb - NEB 1 amp RQID FLORIN Administration Aspirin 81 mg 12/23/17 10:00 12/25/17 10:14 Asa - PO 81 mg DAILY FLORIN Administration Atorvastatin Calcium 40 mg 12/23/17 22:00 12/24/17 21:34 Lipitor - PO 40 mg HS FLORIN Administration Diltiazem HCl 120 mg 12/23/17 10:00 12/25/17 10:14 Cardizem Cd - PO 120 mg DAILY FLORIN Administration Escitalopram Oxalate 10 mg 12/20/17 17:30 12/25/17 10:14 Lexapro - PO 10 mg DAILY FLORIN Administration Furosemide 40 mg 12/20/17 17:30 12/25/17 10:14 Lasix - PO 40 mg DAILY FLORIN Administration Gabapentin 300 mg 12/20/17 22:00 12/25/17 05:24 Neurontin - PO 300 mg TID FLORIN Administration Heparin Sodium (Porcine) 5,000 unit 12/20/17 06:00 12/25/17 05:24 Heparin - SQ 5,000 unit TID FLORIN Administration Ceftriaxone Sodium 1 gm/ 50 mls @ 100 mls/hr 12/21/17 15:15 12/25/17 10:14 Dextrose IVPB 100 mls/hr DAILY FLORIN Administration Protocol Insulin Aspart 1 vial 12/25/17 07:00 12/25/17 06:21 Novolog Vial Sliding Scale - SQ 8 units TIDAC FLORIN Administration Protocol Insulin Aspart 1 vial 12/24/17 22:00 12/24/17 21:45 Novolog Vial Sliding Scale - SQ 10 units HS FLORIN Administration Protocol Insulin Detemir 15 units 12/24/17 22:00 12/24/17 21:36 Levemir Vial SQ 15 units HS FLORIN Administration Lisinopril 30 mg 12/20/17 17:15 12/25/17 10:14 Prinivil PO 30 mg DAILY FLORIN Administration Methylprednisolone Sodium Succinate 40 mg 12/22/17 15:00 12/25/17 10:14 Solu-Medrol - IVPUSH 40 mg Q6H-IV FLORIN Administration Polyethylene Glycol 17 gm 12/20/17 10:00 12/24/17 21:33 Miralax (For Daily Use) - PO 17 grams BID FLORIN Administration Senna/Docusate Sodium 2 tablet 12/20/17 14:53 12/22/17 22:28 Pericolace - PO 2 tablet HS PRN Administration CONSTIPATION Microbiology 12/19/17 21:40 Blood - Peripheral Venous Blood Culture - Final NO GROWTH AFTER 5 DAYS INCUBATION 12/19/17 21:40 Blood - Peripheral Venous Blood Culture - Final NO GROWTH AFTER 5 DAYS INCUBATION Microbiology 12/19/17 22:00 Urine - Urine Clean Catch Urine Culture - Final Klebsiella Pneumoniae ASSESSMENT/PLAN: 7 y/o M w/ PMHx CVA w/ residual R-sided deficits, chronic dysphagia w/ prior trach, COPD on home O2, diastolic CHF, T2DM, HTN, HLD, admitted for AMS and near -fall following progressing weakness observed by FIELD EXAMINER #UTI -WBC 15.0 (12/24), on steroids -UCx grew pena-sensitive Klebsiella -Cont Ceftriaxone 1g daily 12/21- day 4 #AMS - resolved, pt communicating with slurred speech - CXR and Head CT demonstrated no acute pathology - home Lexapro 10 daily #chest pain -resolved -EKG: non-spec abnormalities w/ interval change from previous -repeat CXR: cannot exclude pericardial effusion -trop 0.05, trended down -Cards following (Dr. Beltrán) #COPD - no home steroids - on 2L home O2 per health aide - 2L NC - Duonebs standing and albuterol PRN per Dr. Grant - IV solumedrol [address] Stiles - pulmonology recs appreciated #CHF - no evidence of exacerbation - echo: 60% EF, normal LV, trace MR, trace TR, moderate - home meds: lasix 40, lisinopril 30, norvasc 10, dilt 120 daily #Constipation/distention -initial AXR unrevealing -Abd CT w/ contrast showed dilatation of sigmoid, mild-moderate fecal retention , evidence of cystitis, and diffuse hepatic steatosis -repeat AXR: very dilated loops of bowel, read as unchanged vs prior CT -GI recs appreciated #dysphagia -S/S evaluated -modified barium swallow study normal -dyphagia chopped diet w/ nectar liquid #Decubitis Ulcers - Wound care (Dr. Chakraborty) Consulted for wound management - no surgical intervention #DM - Hold Home meds - BGM, ISS ACHS - A1C 7.6 -Dr Angela recs- Levemir 20u HS #h/o CVA -ASA 81 -Cont atorvastatin 40 qHS #FEN - no IVF - lytes WNL - dyphagia chopped diet w/ nectar liquid #PPx - DVT: Heparin 5,000 unit SQ TID #HCP/contact -daughter Ama [phone] -also health aide Marychuy [phone] # Dispo: med-surg Visit type - Emergency Visit Emergency Visit: Yes ED Registration Date: 12/20/17 Care time: The patient presented to the Emergency Department on the above date and was hospitalized for further evaluation of their emergent condition. - New Patient This patient is new to me today: Yes Date on this admission: 12/25/17 - Critical Care Critical Care patient: No - Discharge Referral Referred to [facility] Med P.C.: No
--- NOTE | 2017-12-25 11:44 | PN ---
Progress Note (short form) - Note Progress Note: Feels better BGM still 300s No hypos Vital Signs Period Temp Pulse Resp BP Sys/Pham Pulse Ox Last 24 Hr 98 F-98.8 F 65-92 19-20 131-137/61-83 95 PE: Awake, alert Neck: Supple, No JVD HEENT: EOMI Lungs: CTA CVS: S1S2 Abd: Benign Ext: No edema Neuro: Rt sided weakness CMP Sodium 134 mmol/L (136-145) L 12/24/17 08:00 Potassium 3.8 mmol/L (3.5-5.1) 12/24/17 08:00 Chloride 95 mmol/L (98-107) L 12/24/17 08:00 Carbon Dioxide 28 mmol/L (21-32) 12/24/17 08:00 Anion Gap 11 MMOL/L (8-16) 12/24/17 08:00 BUN 31 mg/dL (7-18) H 12/24/17 08:00 Creatinine 1.2 mg/dL (0.7-1.3) 12/24/17 08:00 Creat Clearance w eGFR 59.02 (>60) 12/24/17 08:00 POC Glucometer 298 UNITS (80-120) 12/25/17 05:17 Random Glucose 360 mg/dL (74-106) H* D 12/24/17 08:00 Hemoglobin A1c % 7.6 % (4.8-6.0) H D 12/20/17 07:20 Lactic Acid 1.0 mmol/L (0.0-2.0) 12/20/17 07:13 Calcium 9.0 mg/dL (8.5-10.1) 12/24/17 08:00 Phosphorus 2.0 mg/dL (2.5-4.9) L D 12/20/17 07:13 Magnesium 1.9 mg/dL (1.8-2.4) 12/20/17 07:13 Total Bilirubin 1.0 mg/dL (0.2-1.0) 12/22/17 08:25 AST 22 U/L (15-37) 12/22/17 08:25 ALT 31 U/L (12-78) 12/22/17 08:25 Alkaline Phosphatase 83 U/L (45-117) 12/22/17 08:25 Creatine Kinase 224 IU/L (39-308) 12/19/17 21:40 Creatine Kinase Index 0.4 % (0.0-5.0) 12/19/17 21:40 CK-MB (CK-2) < 1.00 ng/mL (0.5-3.6) 12/19/17 21:40 Troponin I 0.05 ng/ml (0.00-0.05) 12/23/17 20:45 B-Natriuretic Peptide 536.56 pg/ml (5-450) H 12/19/17 21:40 Total Protein 7.4 g/dl (6.4-8.2) 12/22/17 08:25 Albumin 2.5 g/dl (3.4-5.0) L 12/22/17 08:25 Current Medications Generic Name Dose Route Start Last Admin Trade Name Freq PRN Reason Stop Dose Admin Albuterol Sulfate 1 amp 12/21/17 14:01 12/24/17 00:58 Ventolin 0.083% Nebulizer Soln - NEB 1 amp Q4H PRN Administration SHORT OF BREATH/WHEEZING Albuterol/Ipratropium 1 amp 12/21/17 16:00 12/25/17 07:32 Duoneb - NEB 1 amp RQID FLORIN Administration Aspirin 81 mg 12/23/17 10:00 12/25/17 10:14 Asa - PO 81 mg DAILY FLORIN Administration Atorvastatin Calcium 40 mg 12/23/17 22:00 12/24/17 21:34 Lipitor - PO 40 mg HS FLORIN Administration Diltiazem HCl 120 mg 12/23/17 10:00 12/25/17 10:14 Cardizem Cd - PO 120 mg DAILY FLORIN Administration Escitalopram Oxalate 10 mg 12/20/17 17:30 12/25/17 10:14 Lexapro - PO 10 mg DAILY FLORIN Administration Furosemide 40 mg 12/20/17 17:30 12/25/17 10:14 Lasix - PO 40 mg DAILY FLORIN Administration Gabapentin 300 mg 12/20/17 22:00 12/25/17 05:24 Neurontin - PO 300 mg TID FLORIN Administration Heparin Sodium (Porcine) 5,000 unit 12/20/17 06:00 12/25/17 05:24 Heparin - SQ 5,000 unit TID FLORIN Administration Ceftriaxone Sodium 1 gm/ 50 mls @ 100 mls/hr 12/21/17 15:15 12/25/17 10:14 Dextrose IVPB 100 mls/hr DAILY FLORIN Administration Protocol Insulin Aspart 1 vial 12/25/17 07:00 12/25/17 06:21 Novolog Vial Sliding Scale - SQ 8 units TIDAC FLORIN Administration Protocol Insulin Aspart 1 vial 12/24/17 22:00 12/24/17 21:45 Novolog Vial Sliding Scale - SQ 10 units HS FLORIN Administration Protocol Insulin Detemir 15 units 12/24/17 22:00 12/24/17 21:36 Levemir Vial SQ 15 units HS FLORIN Administration Lisinopril 30 mg 12/20/17 17:15 12/25/17 10:14 Prinivil PO 30 mg DAILY FLORIN Administration Methylprednisolone Sodium Succinate 40 mg 12/22/17 15:00 12/25/17 10:14 Solu-Medrol - IVPUSH 40 mg Q6H-IV FLORIN Administration Polyethylene Glycol 17 gm 12/20/17 10:00 12/24/17 21:33 Miralax (For Daily Use) - PO 17 grams BID FLORIN Administration Senna/Docusate Sodium 2 tablet 12/20/17 14:53 12/22/17 22:28 Pericolace - PO 2 tablet HS PRN Administration CONSTIPATION AP: AMS: Improving UTI CHF COPD Decubitus ulcer T2DM with hyperglycemia BGM QACHS Increase Levemir 20 units daily at HS Increase Novolog SS On Methylprednisone Bronchodilators Will F/U
[2017-12-25] MEDS: POLYETHYLENE GLYCOL 3350 119 GM BTL PO SCH ×2 (12:10→21:44)
--- NOTE | 2017-12-25 13:40 | PN ---
Progress Note (short form) - Note Progress Note: PULMONARY Breathing better today. Less congested. Vital Signs Period Temp Pulse Resp BP Sys/Pham Pulse Ox Last 24 Hr 98 F-98.8 F 65-92 19-20 131-137/61-83 95-95 Gen: less tachypneic at rest Heart: RRR Lung: bilateral rhonchi Abd: soft, nontender Ext: no edema CBC, BMP 12/24/17 08:00 12/24/17 08:00 Active Medications Albuterol Sulfate (Ventolin 0.083% Nebulizer Soln -) 1 amp NEB Q4H PRN PRN Reason: SHORT OF BREATH/WHEEZING Last Admin: 12/24/17 00:58 Dose: 1 amp Albuterol/Ipratropium (Duoneb -) 1 amp NEB RQID [facility] Last Admin: 12/25/17 11:46 Dose: 1 amp Aspirin (Asa -) 81 mg PO DAILY [facility] Last Admin: 12/25/17 10:14 Dose: 81 mg Atorvastatin Calcium (Lipitor -) 40 mg PO HS [facility] Last Admin: 12/24/17 21:34 Dose: 40 mg Diltiazem HCl (Cardizem Cd -) 120 mg PO DAILY [facility] Last Admin: 12/25/17 10:14 Dose: 120 mg Escitalopram Oxalate (Lexapro -) 10 mg PO DAILY [facility] Last Admin: 12/25/17 10:14 Dose: 10 mg Furosemide (Lasix -) 40 mg PO DAILY [facility] Last Admin: 12/25/17 10:14 Dose: 40 mg Gabapentin (Neurontin -) 300 mg PO TID [facility] Last Admin: 12/25/17 05:24 Dose: 300 mg Heparin Sodium (Porcine) (Heparin -) 5,000 unit SQ TID [facility] Last Admin: 12/25/17 05:24 Dose: 5,000 unit Ceftriaxone Sodium 1 gm/ (Dextrose) 50 mls @ 100 mls/hr IVPB DAILY [facility]; Protocol Last Admin: 12/25/17 10:14 Dose: 100 mls/hr Insulin Aspart (Novolog Vial Sliding Scale -) 1 vial SQ HS [facility]; Protocol Last Admin: 12/24/17 21:45 Dose: 10 units Insulin Aspart (Novolog Vial Sliding Scale -) 1 vial SQ TIDAC [facility]; Protocol Last Admin: 12/25/17 11:58 Dose: 14 units Insulin Detemir (Levemir Vial) 20 units SQ HS [facility] Lisinopril (Prinivil) 30 mg PO DAILY [facility] Last Admin: 12/25/17 10:14 Dose: 30 mg Methylprednisolone Sodium Succinate (Solu-Medrol -) 40 mg IVPUSH Q6H-IV [facility] Last Admin: 12/25/17 10:14 Dose: 40 mg Polyethylene Glycol (Miralax (For Daily Use) -) 17 gm PO BID [facility] Last Admin: 12/25/17 12:10 Dose: 17 grams Senna/Docusate Sodium (Pericolace -) 2 tablet PO HS PRN PRN Reason: CONSTIPATION Last Admin: 12/22/17 22:28 Dose: 2 tablet A/P Acute COPD Exacerbation r/o Pneumonia LV Diastolic Dysfunction Altered Mental Status h/o CVA - continue antibiotics - inhaled bronchodilators standing and PRN - continue medrol at current dose - O2 to keep SpO2 >90% - DVT prophylaxis
--- NOTE | 2017-12-25 15:13 | PN ---
Progress Note, Physician History of Present Illness: The patient denies chest pain, shortness of breath, near or true syncope, palpitations, sensorium at baseline. - Current Medication List Current Medications: Active Medications Albuterol Sulfate (Ventolin 0.083% Nebulizer Soln -) 1 amp NEB Q4H PRN PRN Reason: SHORT OF BREATH/WHEEZING Last Admin: 12/24/17 00:58 Dose: 1 amp Albuterol/Ipratropium (Duoneb -) 1 amp NEB RQID [facility] Last Admin: 12/25/17 11:46 Dose: 1 amp Aspirin (Asa -) 81 mg PO DAILY [facility] Last Admin: 12/25/17 10:14 Dose: 81 mg Atorvastatin Calcium (Lipitor -) 40 mg PO HS [facility] Last Admin: 12/24/17 21:34 Dose: 40 mg Diltiazem HCl (Cardizem Cd -) 120 mg PO DAILY [facility] Last Admin: 12/25/17 10:14 Dose: 120 mg Escitalopram Oxalate (Lexapro -) 10 mg PO DAILY [facility] Last Admin: 12/25/17 10:14 Dose: 10 mg Furosemide (Lasix -) 40 mg PO DAILY [facility] Last Admin: 12/25/17 10:14 Dose: 40 mg Gabapentin (Neurontin -) 300 mg PO TID [facility] Last Admin: 12/25/17 14:56 Dose: 300 mg Heparin Sodium (Porcine) (Heparin -) 5,000 unit SQ TID [facility] Last Admin: 12/25/17 14:56 Dose: 5,000 unit Ceftriaxone Sodium 1 gm/ (Dextrose) 50 mls @ 100 mls/hr IVPB DAILY [facility]; Protocol Last Admin: 12/25/17 10:14 Dose: 100 mls/hr Insulin Aspart (Novolog Vial Sliding Scale -) 1 vial SQ HS [facility]; Protocol Last Admin: 12/24/17 21:45 Dose: 10 units Insulin Aspart (Novolog Vial Sliding Scale -) 1 vial SQ TIDAC [facility]; Protocol Last Admin: 12/25/17 11:58 Dose: 14 units Insulin Detemir (Levemir Vial) 20 units SQ HS [facility] Lisinopril (Prinivil) 30 mg PO DAILY [facility] Last Admin: 12/25/17 10:14 Dose: 30 mg Methylprednisolone Sodium Succinate (Solu-Medrol -) 40 mg IVPUSH Q6H-IV [facility] Last Admin: 12/25/17 14:56 Dose: 40 mg Polyethylene Glycol (Miralax (For Daily Use) -) 17 gm PO BID [facility] Last Admin: 12/25/17 12:10 Dose: 17 grams Senna/Docusate Sodium (Pericolace -) 2 tablet PO HS PRN PRN Reason: CONSTIPATION Last Admin: 12/22/17 22:28 Dose: 2 tablet - Objective Vital Signs: Vital Signs Temperature 98.1 F 12/25/17 14:06 Pulse Rate 81 12/25/17 14:06 Respiratory Rate 20 12/25/17 10:24 Blood Pressure 153/71 12/25/17 14:06 O2 Sat by Pulse Oximetry (%) 95 12/25/17 09:00 Constitutional: Yes: No Distress, Calm Neck: Yes: Supple Cardiovascular: Yes: Regular Rate and Rhythm Respiratory: Yes: Regular, Diminished Gastrointestinal: Yes: Normal Bowel Sounds, Soft Edema: No Labs: CBC, BMP 12/24/17 08:00 12/24/17 08:00 INR, PTT INR 1.34 (0.83-1.09) H 12/19/17 21:40 Problem List - Problems (1) Toxic metabolic encephalopathy Code(s): G92 - TOXIC ENCEPHALOPATHY (2) COPD (chronic obstructive pulmonary disease) Code(s): J44.9 - CHRONIC OBSTRUCTIVE PULMONARY DISEASE, UNSPECIFIED Qualifiers: Emphysema type: unspecified (3) H/O: CVA (cerebrovascular accident) Code(s): Z86.73 - PRSNL HX OF TIA (TIA), AND CEREB INFRC W/O RESID DEFICITS (4) Hypertension Code(s): I10 - ESSENTIAL (PRIMARY) HYPERTENSION Qualifiers: Hypertension type: essential hypertension Qualified Code(s): I10 - Essential (primary) hypertension (5) Diastolic dysfunction Code(s): I51.9 - HEART DISEASE, UNSPECIFIED Assessment/Plan 12/20/2017 Echo: Normal LV size and fxn, tr MR, TR 1. AE COPD, r/o PNA 2. LV Diastolic Dysfunction 3. Altered Mental Status referable to toxic-metabolic encephelopathy since resolved 4. h/o CVA with residual right-sided weakness and chronic dysphagia 5. UTI P:1. Continue Cardizem CD 120 qd, lisinopril, Lasix 40 qd, ASA 81 qd, Lipitor 40 qd 2. Inhaled bronchodilators standing and PRN, IV steroids, complete abx course 3. O2 to keep SpO2 >90% 4. DVT and GI prophylaxis
[2017-12-25] MEDS ORDERED: INSULIN (NOVOLOG) ASPART 100 UNITS/ML 10ML VIAL ONE (18:00)
[2017-12-25] MEDS ORDERED: PT OWN MED DRAWER 7, Y5N ONE (18:00)
[2017-12-25] MEDS: ATORVASTATIN CA 40 MG TABLET (FP) PO SCH (21:44)
[2017-12-25] MEDS ORDERED: INSULIN (LEVEMIR) 100 UNITS/ML UNITS SQ SCH (22:00)
[2017-12-26] MEDS: methylPREDNISolone NA SUCC 40 MG/1 ML VIAL IVPUSH SCH ×4 (02:54→18:48)
[2017-12-26] MEDS: GABAPENTIN 300 MG CAPSULE (FP) PO SCH ×3 (06:50→22:09)
[2017-12-26] MEDS: INSULIN SLIDING SCALE (NOVOLOG) 1 VIAL SQ SCH ×4 (06:50→22:14)
[2017-12-26] MEDS: HEPARIN NA (PORCINE) 5,000 UNITS/ML 1ML VIAL SQ SCH ×3 (06:50→22:09)
[2017-12-26] MEDS: ALBUTEROL SO4 2.5/IPRATROPIUM 0.5 INH SOL 3 ML VIAL.NEB. NEB SCH ×2 (07:35→11:21)
[2017-12-26 08:26] LABS: BASO % 0.2 % (0-2.0); HEMATOCRIT 37.1 % (35.4-49); HEMOGLOBIN 12.9 GM/dL (11.7-16.9); LYMPH % 16.6 % (8-40); MCHC 34.8 g/dl (32.0-35.9); MEAN CELL VOLUME 88.9 fl (80-96); MONO % 6.5 % (3.8-10.2); NEUT % 76.7 % (42.8-82.8); PLATELET COUNT 303 K/MM3 (134-434); RBC 4.17 M/mm3 (4.00-5.60); RDW 15.1 % (11.9-15.9); WHITE BLOOD COUNT 12.5 K/mm3 (4.0-10.0)
[2017-12-26 08:58] LABS: ALBUMIN 2.4 g/dl (3.4-5.0); ANION GAP 8 MMOL/L (8-16); BLOOD UREA NITROGEN 21 mg/dL (7-18); CALCIUM 8.6 mg/dL (8.5-10.1); CHLORIDE 99 mmol/L (98-107); CO2 32 mmol/L (21-32); GLUCOSE,RANDOM 241 mg/dL (74-106); MAGNESIUM 2.5 mg/dL (1.8-2.4); POTASSIUM 4.2 mmol/L (3.5-5.1); SGPT/ALT 131 U/L (12-78); SODIUM 139 mmol/L (136-145)
[2017-12-26 09:01] LABS: ALK PHOS 58 U/L (45-117); BILIRUBIN,TOTAL 0.6 mg/dL (0.2-1.0); CREATININE 0.7 mg/dL (0.7-1.3); PHOSPHOROUS 2.9 mg/dL (2.5-4.9); SGOT/AST 45 U/L (15-37); TOT PROT 6.6 g/dl (6.4-8.2)
--- NOTE | 2017-12-26 09:44 | PN ---
Progress Note (short form) - Note Progress Note: PULMONARY vss/afebrile Gen: no acute distress Heart: RRR Lung: bilateral rhonchi minimal Abd: soft, nontender Ext: no edema/no calf tenderness labs/meds/notes/images reviewed A/P COPD LV Diastolic Dysfunction Altered Mental Status h/o CVA DM - bronchodilators - short course of steroids - O2 to keep SpO2 >90% - glycemic control/diuretics/antibiotics - DVT prophylaxis - OOB to chair Britton GILES MD
[2017-12-26] MEDS ORDERED: DEXTROSE 5%-WATER - 50 ML IVPB ONE (09:47)
[2017-12-26] MEDS ORDERED: PT OWN MED DRAWER 7, Y5N ONE (09:47)
[2017-12-26] MEDS ORDERED: cefTRIAXone SODIUM 1 GM VIAL ONE (09:47)
[2017-12-26] MEDS: POLYETHYLENE GLYCOL 3350 119 GM BTL PO SCH ×2 (09:50→22:13)
[2017-12-26] MEDS: ASPIRIN 81 MG CHEWABLE TABLETS PO SCH (09:52)
[2017-12-26] MEDS: FUROSEMIDE 40 MG TABLET (FP) PO SCH (09:52)
[2017-12-26] MEDS: ESCITALOPRAM OXALATE 10 MG TABLET (FP) PO SCH (09:52)
[2017-12-26] MEDS: LISINOPRIL 20 MG TABLET (FP) PO SCH (09:52)
[2017-12-26] MEDS: CEFTRIAXONE 1 GM in DEXTROSE 5%-WATER - 50 ML IVPB SCH (09:53)
--- NOTE | 2017-12-26 13:15 | PN ---
Progress Note (short form) - Note Progress Note: Feels better Denies any complaints BGM still 300s No hypos Vital Signs Period Temp Pulse Resp BP Sys/Pham Pulse Ox Last 24 Hr 97.8 F-98.6 F 62-90 20-22 129-153/62-80 95-99 PE: Awake, alert Neck: Supple, No JVD HEENT: EOMI Lungs: CTA CVS: S1S2 Abd: Benign Ext: No edema Neuro: Rt sided weakness CMP Sodium 139 mmol/L (136-145) 12/26/17 07:00 Potassium 4.2 mmol/L (3.5-5.1) 12/26/17 07:00 Chloride 99 mmol/L (98-107) 12/26/17 07:00 Carbon Dioxide 32 mmol/L (21-32) 12/26/17 07:00 Anion Gap 8 MMOL/L (8-16) 12/26/17 07:00 BUN 21 mg/dL (7-18) H 12/26/17 07:00 Creatinine 0.7 mg/dL (0.7-1.3) 12/26/17 07:00 Creat Clearance w eGFR > 60 (>60) 12/26/17 07:00 POC Glucometer 301 UNITS (80-120) 12/26/17 11:43 Random Glucose 241 mg/dL (74-106) H D 12/26/17 07:00 Hemoglobin A1c % 7.6 % (4.8-6.0) H D 12/20/17 07:20 Lactic Acid 1.0 mmol/L (0.0-2.0) 12/20/17 07:13 Calcium 8.6 mg/dL (8.5-10.1) 12/26/17 07:00 Phosphorus 2.9 mg/dL (2.5-4.9) D 12/26/17 07:00 Magnesium 2.5 mg/dL (1.8-2.4) H D 12/26/17 07:00 Total Bilirubin 0.6 mg/dL (0.2-1.0) 12/26/17 07:00 AST 45 U/L (15-37) H D 12/26/17 07:00 ALT 131 U/L (12-78) H D 12/26/17 07:00 Alkaline Phosphatase 58 U/L (45-117) D 12/26/17 07:00 Creatine Kinase 224 IU/L (39-308) 12/19/17 21:40 Creatine Kinase Index 0.4 % (0.0-5.0) 12/19/17 21:40 CK-MB (CK-2) < 1.00 ng/mL (0.5-3.6) 12/19/17 21:40 Troponin I 0.05 ng/ml (0.00-0.05) 12/23/17 20:45 B-Natriuretic Peptide 536.56 pg/ml (5-450) H 12/19/17 21:40 Total Protein 6.6 g/dl (6.4-8.2) 12/26/17 07:00 Albumin 2.4 g/dl (3.4-5.0) L 12/26/17 07:00 Current Medications Generic Name Dose Route Start Last Admin Trade Name Freq PRN Reason Stop Dose Admin Albuterol Sulfate 1 amp 12/21/17 14:01 12/24/17 00:58 Ventolin 0.083% Nebulizer Soln - NEB 1 amp Q4H PRN Administration SHORT OF BREATH/WHEEZING Albuterol/Ipratropium 1 amp 12/21/17 16:00 12/26/17 11:21 Duoneb - NEB 1 amp RQID FLORIN Administration Aspirin 81 mg 12/23/17 10:00 12/26/17 09:52 Asa - PO 81 mg DAILY [facility] Administration Atorvastatin Calcium 40 mg 12/23/17 22:00 12/25/17 21:44 Lipitor - PO 40 mg HS [facility] Administration Diltiazem HCl 120 mg 12/23/17 10:00 12/26/17 09:52 Cardizem Cd - PO 120 mg DAILY [facility] Administration Escitalopram Oxalate 10 mg 12/20/17 17:30 12/26/17 09:52 Lexapro - PO 10 mg DAILY [facility] Administration Furosemide 40 mg 12/20/17 17:30 12/26/17 09:52 Lasix - PO 40 mg DAILY [facility] Administration Gabapentin 300 mg 12/20/17 22:00 12/26/17 06:50 Neurontin - PO 300 mg TID [facility] Administration Heparin Sodium (Porcine) 5,000 unit 12/20/17 06:00 12/26/17 06:50 Heparin - SQ 5,000 unit TID [facility] Administration Ceftriaxone Sodium 1 gm/ 50 mls @ 100 mls/hr 12/21/17 15:15 12/26/17 09:53 Dextrose IVPB 100 mls/hr DAILY [facility] Administration Protocol Insulin Aspart 1 vial 12/24/17 22:00 12/25/17 21:43 Novolog Vial Sliding Scale - SQ 10 units HS [facility] Administration Protocol Insulin Aspart 1 vial 12/25/17 11:45 12/26/17 11:46 Novolog Vial Sliding Scale - SQ 12 units TIDAC [facility] Administration Protocol Insulin Detemir 20 units 12/25/17 22:00 12/25/17 21:43 Levemir Vial SQ 20 units HS [facility] Administration Lisinopril 30 mg 12/20/17 17:15 12/26/17 09:52 Prinivil PO 30 mg DAILY [facility] Administration Methylprednisolone Sodium Succinate 40 mg 12/22/17 15:00 12/26/17 09:52 Solu-Medrol - IVPUSH 40 mg Q6H-IV [facility] Administration Polyethylene Glycol 17 gm 12/20/17 10:00 12/26/17 09:50 Miralax (For Daily Use) - PO 17 grams BID [facility] Administration Senna/Docusate Sodium 2 tablet 12/20/17 14:53 12/22/17 22:28 Pericolace - PO 2 tablet HS PRN Administration CONSTIPATION AP: AMS: resolved UTI CHF COPD Decubitus ulcer T2DM with hyperglycemia BGM QACHS Increase Levemir 26 units daily at HS Increase Novolog SS On Methylprednisone Bronchodilators Will F/U
--- NOTE | 2017-12-26 13:23 | PN ---
Progress Note (short form) - Note Progress Note: Patient ia comfortable with no acute distress. Vital Signs Temperature 98.5 F 12/26/17 10:03 Pulse Rate 67 12/26/17 10:03 Respiratory Rate 20 12/26/17 10:03 Blood Pressure 129/69 12/26/17 10:03 O2 Sat by Pulse Oximetry (%) 99 12/26/17 09:00 GENERAL: The patient is awake, alert, and fully oriented, in no acute distress. Communicative NC HEAD: R lower facial droop. EYES: PERRL, extraocular movements intact, sclera anicteric, conjunctiva clear. ENT: moist mucous membranes. NECK: supple. LUNGS: decreased Breath sounds BL , clear to auscultation bilaterally, no wheezes, no crackles, no accessory muscle use. HEART: Regular rate and rhythm, S1, S2 ABDOMEN: Soft, nontender, nondistended, normoactive bowel sounds EXTREMITIES: 2+ pulses, warm, well-perfused, no edema. NEUROLOGICAL: Cranial nerves II through XII grossly intact. improved the speech . PSYCH: Normal mood, normal affect. SKIN: Warm, dry, normal turgor, no rashes or lesions noted CBCD WBC 12.5 K/mm3 (4.0-10.0) H 12/26/17 07:00 RBC 4.17 M/mm3 (4.00-5.60) 12/26/17 07:00 Hgb 12.9 GM/dL (11.7-16.9) 12/26/17 07:00 Hct 37.1 % (35.4-49) 12/26/17 07:00 MCV 88.9 fl (80-96) 12/26/17 07:00 MCHC 34.8 g/dl (32.0-35.9) 12/26/17 07:00 RDW 15.1 % (11.9-15.9) 12/26/17 07:00 Plt Count 303 K/MM3 (134-434) 12/26/17 07:00 MPV 9.0 fl (7.5-11.1) 12/26/17 07:00 CMP Sodium 139 mmol/L (136-145) 12/26/17 07:00 Potassium 4.2 mmol/L (3.5-5.1) 12/26/17 07:00 Chloride 99 mmol/L (98-107) 12/26/17 07:00 Carbon Dioxide 32 mmol/L (21-32) 12/26/17 07:00 Anion Gap 8 MMOL/L (8-16) 12/26/17 07:00 BUN 21 mg/dL (7-18) H 12/26/17 07:00 Creatinine 0.7 mg/dL (0.7-1.3) 12/26/17 07:00 Creat Clearance w eGFR > 60 (>60) 12/26/17 07:00 Random Glucose 241 mg/dL (74-106) H D 12/26/17 07:00 Calcium 8.6 mg/dL (8.5-10.1) 12/26/17 07:00 Total Bilirubin 0.6 mg/dL (0.2-1.0) 12/26/17 07:00 AST 45 U/L (15-37) H D 12/26/17 07:00 ALT 131 U/L (12-78) H D 12/26/17 07:00 Alkaline Phosphatase 58 U/L (45-117) D 12/26/17 07:00 Total Protein 6.6 g/dl (6.4-8.2) 12/26/17 07:00 Albumin 2.4 g/dl (3.4-5.0) L 12/26/17 07:00 CARDIAC ENZYMES Creatine Kinase 224 IU/L (39-308) 12/19/17 21:40 Troponin I 0.05 ng/ml (0.00-0.05) 12/23/17 20:45 Current Medications Generic Name Dose Route Start Last Admin Trade Name Brayan PRN Reason Stop Dose Admin Albuterol Sulfate 1 amp 12/21/17 14:01 12/24/17 00:58 Ventolin 0.083% Nebulizer Soln - NEB 1 amp Q4H PRN Administration SHORT OF BREATH/WHEEZING Albuterol/Ipratropium 1 amp 12/21/17 16:00 12/26/17 11:21 Duoneb - NEB 1 amp RQID FLORIN Administration Aspirin 81 mg 12/23/17 10:00 12/26/17 09:52 Asa - PO 81 mg DAILY FLORIN Administration Atorvastatin Calcium 40 mg 12/23/17 22:00 12/25/17 21:44 Lipitor - PO 40 mg HS FLORIN Administration Diltiazem HCl 120 mg 12/23/17 10:00 12/26/17 09:52 Cardizem Cd - PO 120 mg DAILY FLORIN Administration Escitalopram Oxalate 10 mg 12/20/17 17:30 12/26/17 09:52 Lexapro - PO 10 mg DAILY FLORIN Administration Furosemide 40 mg 12/20/17 17:30 12/26/17 09:52 Lasix - PO 40 mg DAILY FLORIN Administration Gabapentin 300 mg 12/20/17 22:00 12/26/17 06:50 Neurontin - PO 300 mg TID FLORIN Administration Heparin Sodium (Porcine) 5,000 unit 12/20/17 06:00 12/26/17 06:50 Heparin - SQ 5,000 unit TID FLORIN Administration Ceftriaxone Sodium 1 gm/ 50 mls @ 100 mls/hr 12/21/17 15:15 12/26/17 09:53 Dextrose IVPB 100 mls/hr DAILY FLORIN Administration Protocol Insulin Aspart 1 vial 12/24/17 22:00 12/25/17 21:43 Novolog Vial Sliding Scale - SQ 10 units HS FLORIN Administration Protocol Insulin Aspart 1 vial 12/26/17 13:16 Novolog Vial Sliding Scale - SQ TIDAC [facility] Protocol Insulin Detemir 26 units 12/26/17 22:00 Levemir Vial SQ HS [facility] Lisinopril 30 mg 12/20/17 17:15 12/26/17 09:52 Prinivil PO 30 mg DAILY FLORIN Administration Methylprednisolone Sodium Succinate 40 mg 12/22/17 15:00 12/26/17 09:52 Solu-Medrol - IVPUSH 40 mg Q6H-IV [facility] Administration Polyethylene Glycol 17 gm 12/20/17 10:00 12/26/17 09:50 Miralax (For Daily Use) - PO 17 grams BID [facility] Administration Senna/Docusate Sodium 2 tablet 12/20/17 14:53 12/22/17 22:28 Pericolace - PO 2 tablet HS PRN Administration CONSTIPATION Home Medications Medication Instructions Recorded Escitalopram Oxalate [Lexapro -] 10 mg PO DAILY 12/10/15 Gabapentin 300 mg PO TID 12/10/15 Repaglinide 2 mg PO BID 12/10/15 Diltiazem Cd [Cardizem Cd -] 120 mg PO DAILY tab 10/22/16 Amlodipine Besylate 10 mg PO DAILY 12/20/17 Azelastine HCl 205.5 mcg NS BID 12/20/17 Ergocalciferol (Vitamin D2) 50,000 unit PO WEEKLY 12/20/17 [Vitamin D2] Furosemide [Lasix -] 40 mg PO DAILY 12/20/17 Lidocaine 5% Top. Ointment 1 applic TP TID 12/20/17 [Xylocaine 5% Top. Ointment] Lisinopril [Prinivil] 30 mg PO DAILY 12/20/17 Microbiology 12/19/17 21:40 Blood - Peripheral Venous Blood Culture - Final NO GROWTH AFTER 5 DAYS INCUBATION 12/19/17 21:40 Blood - Peripheral Venous Blood Culture - Final NO GROWTH AFTER 5 DAYS INCUBATION 12/19/17 22:00 Urine - Urine Clean Catch Urine Culture - Final Klebsiella Pneumoniae ASSESSMENT AND PLAN: Patient is a 77 y/o male with PMHx of COPD on O2l at home , T2dm, HTN, HLP, h/ o Trach , stroke with Right sided residual weakness, ascending aortic aneurysm and dysphagia who presented with AMS and a fall with no LOC as per family . # AMS due to metabolic encephalopathy : due to UTI Due to Klebsiella Pneumoniae Patient is back to his baseline now.Improved # Acute UTI due to Klebsiella Pneumoniae on Rocephin will switch to po in am . Leukocytosis improved 9.8, now12.5 today #Acute COPD exacerabtion :On IV steroids will start to taper the dose of the steroid. neb. treatments ,on oxygen continue . Pulmonary on the case #Diastolic CHF: resume his home meds ( lasix , lisinopril, and norvasc ) # dysphagia : [facility]'s report as per Isela Mcdonald continue with chopped diet and thin liquid for now, will ask Isela mcdonald to evaluate the patient # DM : cont SSI . A1c 7.8 , conitnue SS with coverage # H/o stroke: will check with the daughter whether he is on any aspirin and Statins , since as per Pharmacy patient is not on it. will check with the daughter whether any reason for the patient is not on any of these treatments. # Constipation continue with Miralax, Senna continue DVT Px: Heparin Patient might need reahab. PT evaluation Visit type - Emergency Visit Emergency Visit: Yes ED Registration Date: 12/20/17 Care time: The patient presented to the Emergency Department on the above date and was hospitalized for further evaluation of their emergent condition. - New Patient This patient is new to me today: No - Critical Care Critical Care patient: No - Discharge Referral Referred to [facility] No
--- NOTE | 2017-12-26 16:28 | PN ---
Progress Note, Physician History of Present Illness: The patient denies chest pain, shortness of breath, near or true syncope, palpitations, sensorium at baseline. - Current Medication List Current Medications: Active Medications Aspirin (Asa -) 81 mg PO DAILY [facility] Last Admin: 12/26/17 09:52 Dose: 81 mg Atorvastatin Calcium (Lipitor -) 40 mg PO HS [facility] Last Admin: 12/25/17 21:44 Dose: 40 mg Diltiazem HCl (Cardizem Cd -) 120 mg PO DAILY [facility] Last Admin: 12/26/17 09:52 Dose: 120 mg Escitalopram Oxalate (Lexapro -) 10 mg PO DAILY [facility] Last Admin: 12/26/17 09:52 Dose: 10 mg Furosemide (Lasix -) 40 mg PO DAILY [facility] Last Admin: 12/26/17 09:52 Dose: 40 mg Gabapentin (Neurontin -) 300 mg PO TID [facility] Last Admin: 12/26/17 14:03 Dose: 300 mg Heparin Sodium (Porcine) (Heparin -) 5,000 unit SQ TID [facility] Last Admin: 12/26/17 14:03 Dose: 5,000 unit Ceftriaxone Sodium 1 gm/ (Dextrose) 50 mls @ 100 mls/hr IVPB DAILY [facility]; Protocol Last Admin: 12/26/17 09:53 Dose: 100 mls/hr Insulin Aspart (Novolog Vial Sliding Scale -) 1 vial SQ HS [facility]; Protocol Last Admin: 12/25/17 21:43 Dose: 10 units Insulin Aspart (Novolog Vial Sliding Scale -) 1 vial SQ TIDAC [facility]; Protocol Insulin Detemir (Levemir Vial) 26 units SQ [facility] Lisinopril (Prinivil) 30 mg PO DAILY [facility] Last Admin: 12/26/17 09:52 Dose: 30 mg Methylprednisolone Sodium Succinate (Solu-Medrol -) 40 mg IVPUSH Q6H-IV [facility] Last Admin: 12/26/17 14:03 Dose: 40 mg Polyethylene Glycol (Miralax (For Daily Use) -) 17 gm PO BID [facility] Last Admin: 12/26/17 09:50 Dose: 17 grams Senna/Docusate Sodium (Pericolace -) 2 tablet PO HS PRN PRN Reason: CONSTIPATION Last Admin: 12/22/17 22:28 Dose: 2 tablet - Objective Vital Signs: Vital Signs Temperature 97.8 F 12/26/17 14:51 Pulse Rate 64 12/26/17 14:51 Respiratory Rate 20 12/26/17 14:51 Blood Pressure 135/99 12/26/17 14:51 O2 Sat by Pulse Oximetry (%) 99 12/26/17 09:00 Constitutional: Yes: No Distress, Calm Neck: Yes: Supple Cardiovascular: Yes: Regular Rate and Rhythm Respiratory: Yes: Regular, Diminished Gastrointestinal: Yes: Normal Bowel Sounds, Soft Edema: No Labs: CBC, BMP 12/26/17 07:00 12/26/17 07:00 INR, PTT INR 1.34 (0.83-1.09) H 12/19/17 21:40 Problem List - Problems (1) Toxic metabolic encephalopathy Code(s): G92 - TOXIC ENCEPHALOPATHY (2) COPD (chronic obstructive pulmonary disease) Code(s): J44.9 - CHRONIC OBSTRUCTIVE PULMONARY DISEASE, UNSPECIFIED Qualifiers: Emphysema type: unspecified (3) H/O: CVA (cerebrovascular accident) Code(s): Z86.73 - PRSNL HX OF TIA (TIA), AND CEREB INFRC W/O RESID DEFICITS (4) Hypertension Code(s): I10 - ESSENTIAL (PRIMARY) HYPERTENSION Qualifiers: Hypertension type: essential hypertension Qualified Code(s): I10 - Essential (primary) hypertension (5) Diastolic dysfunction Code(s): I51.9 - HEART DISEASE, UNSPECIFIED Assessment/Plan 12/20/2017 Echo: Normal LV size and fxn, tr MR, TR 1. AE COPD, r/o PNA 2. LV Diastolic Dysfunction 3. Altered Mental Status referable to toxic-metabolic encephelopathy since resolved 4. h/o CVA with residual right-sided weakness and chronic dysphagia 5. UTI P:1. Continue Cardizem CD 120 qd, lisinopril, Lasix 40 qd, ASA 81 qd, Lipitor 40 qd 2. Inhaled bronchodilators standing and PRN, IV steroids, complete abx course 3. O2 to keep SpO2 >90% 4. DVT and GI prophylaxis
[2017-12-26] MEDS ORDERED: INSULIN (NOVOLOG) ASPART 100 UNITS/ML 10ML VIAL ONE (21:45)
[2017-12-26] MEDS ORDERED: INSULIN (LEVEMIR) 100 UNITS/ML UNITS SQ SCH (22:00)
[2017-12-26] MEDS: ATORVASTATIN CA 40 MG TABLET (FP) PO SCH (22:09)
[2017-12-27] MEDS: methylPREDNISolone NA SUCC 40 MG/1 ML VIAL IVPUSH SCH ×2 (01:59→09:34)
[2017-12-27] MEDS: GABAPENTIN 300 MG CAPSULE (FP) PO SCH ×2 (06:38→14:04)
[2017-12-27] MEDS: HEPARIN NA (PORCINE) 5,000 UNITS/ML 1ML VIAL SQ SCH ×2 (06:39→14:04)
[2017-12-27] MEDS: INSULIN SLIDING SCALE (NOVOLOG) 1 VIAL SQ SCH ×2 (06:45→11:35)
[2017-12-27] MEDS ORDERED: INSULIN (LEVEMIR) 100 UNITS/ML UNITS SQ ONE (07:08)
[2017-12-27] MEDS ORDERED: PT OWN MED DRAWER 7, Y5N ONE (07:09)
[2017-12-27 07:15] LABS: BASO % 0.3 % (0-2.0); HEMATOCRIT 38.5 % (35.4-49); HEMOGLOBIN 13.3 GM/dL (11.7-16.9); LYMPH % 13.6 % (8-40); MCH 30.6 pg (25.7-33.7); MCHC 34.5 g/dl (32.0-35.9); MEAN CELL VOLUME 88.7 fl (80-96); MEAN PLT VOLUME 9.1 fl (7.5-11.1); MONO % 6.6 % (3.8-10.2); NEUT % 79.5 % (42.8-82.8); PLATELET COUNT 316 K/MM3 (134-434); RBC 4.35 M/mm3 (4.00-5.60)
[2017-12-27 07:49] LABS: CHLORIDE 98 mmol/L (98-107); POTASSIUM 4.4 mmol/L (3.5-5.1); SODIUM 138 mmol/L (136-145)
[2017-12-27 07:56] LABS: ALBUMIN 2.3 g/dl (3.4-5.0); ALK PHOS 59 U/L (45-117); ANION GAP 10 MMOL/L (8-16); BILIRUBIN,TOTAL 0.5 mg/dL (0.2-1.0); BLOOD UREA NITROGEN 19 mg/dL (7-18); CALCIUM 8.3 mg/dL (8.5-10.1); CO2 30 mmol/L (21-32); CREATININE 0.7 mg/dL (0.7-1.3); GLUCOSE,RANDOM 261 mg/dL (74-106); SGOT/AST 36 U/L (15-37); SGPT/ALT 125 U/L (12-78); TOT PROT 6.3 g/dl (6.4-8.2)
[2017-12-27] MEDS ORDERED: cefTRIAXone SODIUM 1 GM VIAL ONE (09:31)
[2017-12-27] MEDS: POLYETHYLENE GLYCOL 3350 119 GM BTL PO SCH (09:34)
[2017-12-27] MEDS: FUROSEMIDE 40 MG TABLET (FP) PO SCH (09:35)
[2017-12-27] MEDS: ESCITALOPRAM OXALATE 10 MG TABLET (FP) PO SCH (09:35)
[2017-12-27] MEDS: ASPIRIN 81 MG CHEWABLE TABLETS PO SCH (09:35)
[2017-12-27] MEDS: LISINOPRIL 20 MG TABLET (FP) PO SCH (09:35)
[2017-12-27] MEDS: CEFTRIAXONE 1 GM in DEXTROSE 5%-WATER - 50 ML IVPB SCH (09:38)
--- NOTE | 2017-12-27 11:47 | DS ---
Physical Exam: SUBJECTIVE: Patient seen and examined at bedside. No complaints, affirms breathing well, no discomfort, no constipation, no dysuria. OBJECTIVE: Vital Signs Period Temp Pulse Resp BP Sys/Pham Pulse Ox Last 24 Hr 97.8 F-99.1 F 59-82 20-22 115-151/74-99 96 PHYSICAL EXAM GENERAL: A&Ox3, NAD HEAD: NC/AT EYES: PERRLA, EOMI, sclera anicteric NECK: Trachea midline, full range of motion, supple, no JVD LUNGS: tracheal breath sounds, coarse ronchi diffusely HEART: normal S1S2, RRR, no m/r/g ABDOMEN: distended, tympanitic, non-tender, reducible umbilical hernia EXTREMITIES: 2+ pulses, warm, well-perfused, 1+ pitting edema in b/l LE NEUROLOGICAL: -CN exam notable for significant right and mild left facial droop, dysarthria, otherwise intact -strength 4/5 in LUE and LLE, 0/5 in proximal RUE, 2/5 in distal RUE, 0/5 in proximal RLE, 1/5 in distal RLE -sensation grossly intact -could not evaluate FtN or HtS -could not elicit biceps or patellar reflexes -upgoing plantars b/l R>L SKIN: stage 2 decubitus ulcers on buttocks b/l, non-infected appearing LABS Laboratory Results - last 24 hr 12/26/17 12/26/17 12/26/17 11:43 17:06 22:11 WBC RBC Hgb Hct MCV MCH MCHC RDW Plt Count MPV Absolute Neuts (auto) Neutrophils % Lymphocytes % Monocytes % Eosinophils % Basophils % Nucleated RBC % Sodium Potassium Chloride Carbon Dioxide Anion Gap BUN Creatinine Creat Clearance w eGFR POC Glucometer 301 394 331 Random Glucose Calcium Total Bilirubin AST ALT Alkaline Phosphatase Total Protein Albumin 12/27/17 12/27/17 12/27/17 04:21 06:42 06:50 WBC 15.0 H RBC 4.35 Hgb 13.3 Hct 38.5 MCV 88.7 MCH 30.6 MCHC 34.5 RDW 15.0 Plt Count 316 MPV 9.1 Absolute Neuts (auto) 11.9 H Neutrophils % 79.5 Lymphocytes % 13.6 Monocytes % 6.6 Eosinophils % 0.0 Basophils % 0.3 Nucleated RBC % 0 Sodium Potassium Chloride Carbon Dioxide Anion Gap BUN Creatinine Creat Clearance w eGFR POC Glucometer 264 273 Random Glucose Calcium Total Bilirubin AST ALT Alkaline Phosphatase Total Protein Albumin 12/27/17 06:50 WBC RBC Hgb Hct MCV MCH MCHC RDW Plt Count MPV Absolute Neuts (auto) Neutrophils % Lymphocytes % Monocytes % Eosinophils % Basophils % Nucleated RBC % Sodium 138 Potassium 4.4 Chloride 98 Carbon Dioxide 30 Anion Gap 10 BUN 19 H Creatinine 0.7 Creat Clearance w eGFR > 60 POC Glucometer Random Glucose 261 H Calcium 8.3 L Total Bilirubin 0.5 AST 36 ALT 125 H Alkaline Phosphatase 59 Total Protein 6.3 L Albumin 2.3 L HOSPITAL COURSE: Date of Admission:12/20/17 Patient is a 77 y/o M w/ PMHx CVA w/ residual R-sided deficits, chronic dysphagia w/ prior trach, COPD on home O2, diastolic CHF, T2DM, HTN, HLD, admitted for AMS and near-fall following progressing weakness observed by [employer]. WBC elevated on admission, BCx and UCx were sent and he was determined to have Klebsiella UTI. Had significant pulmonary congestion and tracheal breathing on admission. Additionally had constipation and significant abdominal distention. Noted to have stage 2 decubitus ulcers. Pulmonology, Cardiology, Wound Care, Speech/Swallow consulted. Was placed on nebulizers and IV steroids, Endocrinology subsequently consulted for glycemic control. Toxic metabolic encephalopathy resolved within a day of hospitalization. CXR, Head CT, Barium swallow all benign. Abd CT showed colonic dilatation but not warranting acute intervention. Patient was stabilized with pulmonary regimen and ceftriaxone. Discharged home to 24 hour nursing care. Given oral steroid taper, Levemir to take during steroid taper, and 3 day course of Ceftin to complete ABx. Outpatient followup given for primary care, pulmonology, GI within 1 week of discharge. Followup with endocrinology pending decline in blood sugar as steroids are tapered off; patient given instructions to monitor blood glucose and arrange followup with endocrinology on that basis. Date of Discharge: 12/27/17 Minutes to complete discharge: 40 Discharge Summary Reason For Visit: FALL HISTORY OF STROKE Current Active Problems Abnormal abdominal CT scan (Acute) COPD (chronic obstructive pulmonary disease) (Acute) Decubitus ulcer (Acute) Diastolic dysfunction (Acute) Fall (Acute) Fecal retention (Acute) H/O: CVA (cerebrovascular accident) (Acute) Toxic metabolic encephalopathy (Acute) Condition: Stable - Instructions Diet, Activity, Other Instructions: You were hospitalized for altered mental status, weakness, and congestion in your lungs. It was discovered that you additionally had a urinary tract infection You were given medications and inhalers to improve your breathing and antibiotics for the urinary tract infection. Referrals You have been given a referral to our clinic for followup evaluation one week after discharge. You have been given a referral to see Dr. Diane, the pulmonary doctor, one week after discharge. You have been given a referral to see Dr. Easley, the GI doctor, one month after discharge. Please keep these appointment. Medications/medical advice You are being discharged on a taper of an oral steroid, Prednisone, which should be taken exactly as follows: Days 1-2 following discharge: 40mg (4 tablets) Days 3-4 following discharge: 30mg (3 tablets) Days 5-6 following discharge: 20mg (2 tablets) Days 7-8 following discharge: 10mg (1 tablet) Day 9 following discharge and thereafter: no further prednisone Additionally, you are being prescribed a form of insulin called Levemir to take while you are on the steroid taper (i.e., for 8 days following discharge). Take 10 units of Levemir in the morning and an additional 10 units before bed every day. You have an 8 day supply to last through the duration of your steroid taper. Once your daily sugars begin to come down, make an appointment for evaluation by the heat treating furnace tender, Dr. Angela, at [phone] or call for further management over the phone as wee. Do not take your normal home diabetes medications during this time. Your diabetes medications going forward will be re-evaluated in your followup appointments. It is thus imperative to keep your appointment at clinic no later than 7 days following discharge. You are being prescribed an antibiotic called Ceftin to complete your antibiotic course. Please take this medication twice a day for three days following discharge. Otherwise, resume your home medications as normal. If you develop any shortness of breath, chest pain, weakness, alteration in mental status, or any other new symptoms, please return to the Emergency Department immediately. Referrals: [facility] [place] [Provider Group] - 1 Week Dhiraj Diane MD [Staff Physician] - 1 Week Edenilson Easley MD [Staff Physician] - 1 Month Bruno Angela MD [Staff Physician] - Disposition: HOME - Home Medications Comprehensive Discharge Medication List: Ambulatory Orders Escitalopram Oxalate [Lexapro -] 10 mg PO DAILY 12/10/15 Gabapentin 300 mg PO TID 12/10/15 Diltiazem Cd [Cardizem Cd -] 120 mg PO DAILY tab 10/22/16 Amlodipine Besylate 10 mg PO DAILY 12/20/17 Azelastine HCl 205.5 mcg NS BID 12/20/17 Ergocalciferol (Vitamin D2) [Vitamin D2] 50,000 unit PO WEEKLY 12/20/17 Furosemide [Lasix -] 40 mg PO DAILY 12/20/17 Lidocaine 5% Top. Ointment [Xylocaine 5% Top. Ointment -] 1 applic TP TID Lisinopril [Prinivil] 30 mg PO DAILY 12/20/17 Aspirin [ASA -] 81 mg PO DAILY tab.chew 12/27/17 Cefuroxime Axetil [Ceftin -] 500 mg PO BID #6 tablet 12/27/17 Insulin (Levemir) [Levemir Vial] 24 unit SQ HS 8 Days vial 12/27/17 Prednisone See Taper PO DAILY #20 tablet 12/27/17 This patient is new to me today: No Emergency Visit: No Critical Care patient: No - Discharge Referral Referred to [facility] No
--- NOTE | 2017-12-27 14:06 | PN ---
Teaching Attending Note Name of Resident: Roman Goins ATTENDING PHYSICIAN STATEMENT I saw and evaluated the patient. I reviewed the resident's note and discussed the case with the resident. I agree with the resident's findings and plan as documented. SUBJECTIVE: Patient is doing wel back to his baseline, wants to go home, not rehab. OBJECTIVE: Vital Signs Temperature 98.8 F 12/27/17 08:36 Pulse Rate 65 12/27/17 08:36 Respiratory Rate 20 12/27/17 08:36 Blood Pressure 139/75 12/27/17 08:36 O2 Sat by Pulse Oximetry (%) 96 12/26/17 21:00 CBCD WBC 15.0 K/mm3 (4.0-10.0) H 12/27/17 06:50 RBC 4.35 M/mm3 (4.00-5.60) 12/27/17 06:50 Hgb 13.3 GM/dL (11.7-16.9) 12/27/17 06:50 Hct 38.5 % (35.4-49) 12/27/17 06:50 MCV 88.7 fl (80-96) 12/27/17 06:50 MCHC 34.5 g/dl (32.0-35.9) 12/27/17 06:50 RDW 15.0 % (11.9-15.9) 12/27/17 06:50 Plt Count 316 K/MM3 (134-434) 12/27/17 06:50 MPV 9.1 fl (7.5-11.1) 12/27/17 06:50 CMP Sodium 138 mmol/L (136-145) 12/27/17 06:50 Potassium 4.4 mmol/L (3.5-5.1) 12/27/17 06:50 Chloride 98 mmol/L (98-107) 12/27/17 06:50 Carbon Dioxide 30 mmol/L (21-32) 12/27/17 06:50 Anion Gap 10 MMOL/L (8-16) 12/27/17 06:50 BUN 19 mg/dL (7-18) H 12/27/17 06:50 Creatinine 0.7 mg/dL (0.7-1.3) 12/27/17 06:50 Creat Clearance w eGFR > 60 (>60) 12/27/17 06:50 Random Glucose 261 mg/dL (74-106) H 12/27/17 06:50 Calcium 8.3 mg/dL (8.5-10.1) L 12/27/17 06:50 Total Bilirubin 0.5 mg/dL (0.2-1.0) 12/27/17 06:50 AST 36 U/L (15-37) 12/27/17 06:50 ALT 125 U/L (12-78) H 12/27/17 06:50 Alkaline Phosphatase 59 U/L (45-117) 12/27/17 06:50 Total Protein 6.3 g/dl (6.4-8.2) L 12/27/17 06:50 Albumin 2.3 g/dl (3.4-5.0) L 12/27/17 06:50 CARDIAC ENZYMES Creatine Kinase 224 IU/L (39-308) 12/19/17 21:40 Troponin I 0.05 ng/ml (0.00-0.05) 12/23/17 20:45 Home Medications Medication Instructions Recorded Escitalopram Oxalate [Lexapro -] 10 mg PO DAILY 12/10/15 Gabapentin 300 mg PO TID 12/10/15 Diltiazem Cd [Cardizem Cd -] 120 mg PO DAILY tab 10/22/16 Amlodipine Besylate 10 mg PO DAILY 12/20/17 Azelastine HCl 205.5 mcg NS BID 12/20/17 Ergocalciferol (Vitamin D2) 50,000 unit PO WEEKLY 12/20/17 [Vitamin D2] Furosemide [Lasix -] 40 mg PO DAILY 12/20/17 Lidocaine 5% Top. Ointment 1 applic TP TID 12/20/17 [Xylocaine 5% Top. Ointment -] Lisinopril [Prinivil] 30 mg PO DAILY 12/20/17 Aspirin [ASA -] 81 mg PO DAILY tab.chew 12/27/17 Cefuroxime Axetil [Ceftin -] 500 mg PO BID #6 tablet 12/27/17 Insulin (Levemir) [Levemir Vial] 10 units SQ BID 8 Days #1 vial 12/27/17 Prednisone See Taper PO DAILY #20 tablet 12/27/17 Home Medication List Medication Instructions Recorded Confirmed Type Escitalopram Oxalate [Lexapro -] 10 mg PO DAILY 12/10/15 12/20/17 History Gabapentin 300 mg PO TID 12/10/15 12/20/17 History Amlodipine Besylate 10 mg PO DAILY 12/20/17 12/20/17 History Azelastine HCl 205.5 mcg NS BID 12/20/17 12/20/17 History Ergocalciferol (Vitamin D2) 50,000 unit PO WEEKLY 12/20/17 12/20/17 History [Vitamin D2] Furosemide [Lasix -] 40 mg PO DAILY 12/20/17 12/20/17 History Lidocaine 5% Top. Ointment 1 applic TP TID 12/20/17 12/20/17 History [Xylocaine 5% Top. Ointment -] Lisinopril [Prinivil] 30 mg PO DAILY 12/20/17 12/20/17 History Active Medications Generic Name Dose Route Start Last Admin Trade Name Freq PRN Reason Stop Dose Admin Aspirin 81 mg 12/23/17 10:00 12/27/17 09:35 Asa - PO 81 mg DAILY FLORIN Administration Atorvastatin Calcium 40 mg 12/23/17 22:00 12/26/17 22:09 Lipitor - PO 40 mg HS FLORIN Administration Diltiazem HCl 120 mg 12/23/17 10:00 12/27/17 09:35 Cardizem Cd - PO 120 mg DAILY FLORIN Administration Escitalopram Oxalate 10 mg 12/20/17 17:30 12/27/17 09:35 Lexapro - PO 10 mg DAILY FLORIN Administration Furosemide 40 mg 12/20/17 17:30 12/27/17 09:35 Lasix - PO 40 mg DAILY FLORIN Administration Gabapentin 300 mg 12/20/17 22:00 12/27/17 14:04 Neurontin - PO 300 mg TID FLORIN Administration Heparin Sodium (Porcine) 5,000 unit 12/20/17 06:00 12/27/17 14:04 Heparin - SQ 5,000 unit TID FLORIN Administration Ceftriaxone Sodium 1 gm/ 50 mls @ 100 mls/hr 12/21/17 15:15 12/27/17 09:38 Dextrose IVPB 100 mls/hr DAILY FLORIN Administration Protocol Insulin Aspart 1 vial 12/24/17 22:00 12/26/17 22:14 Novolog Vial Sliding Scale - SQ 8 units HS FLORIN Administration Protocol Insulin Aspart 1 vial 12/26/17 13:16 12/27/17 11:35 Novolog Vial Sliding Scale - SQ 18 units TIDAC FLORIN Administration Protocol Insulin Detemir 13 units 12/27/17 22:00 Levemir Vial SQ BID@0800,2200 FLORIN Lisinopril 30 mg 12/20/17 17:15 12/27/17 09:35 Prinivil PO 30 mg DAILY FLORIN Administration Methylprednisolone Sodium Succinate 40 mg 12/26/17 18:15 12/27/17 09:34 Solu-Medrol - IVPUSH 40 mg Q8H-IV FLORIN Administration Polyethylene Glycol 17 gm 12/20/17 10:00 12/27/17 09:34 Miralax (For Daily Use) - PO 17 grams BID FLORIN Administration Senna/Docusate Sodium 2 tablet 12/20/17 14:53 12/22/17 22:28 Pericolace - PO 2 tablet HS PRN Administration CONSTIPATION Microbiology 12/19/17 21:40 Blood - Peripheral Venous Blood Culture - Final NO GROWTH AFTER 5 DAYS INCUBATION 12/19/17 21:40 Blood - Peripheral Venous Blood Culture - Final NO GROWTH AFTER 5 DAYS INCUBATION 12/19/17 22:00 Urine - Urine Clean Catch Urine Culture - Final Klebsiella Pneumoniae Gen: no acute distress Heart: RRR Lung: bilateral rhonchi minimal Abd: soft, nontender Ext: no edema/no calf tenderness ASSESSMENT AND PLAN: Patient is a 77 y/o male with PMHx of COPD on O2l at home , T2dm, HTN, HLP, h/ o Trach , stroke with Right sided residual weakness, ascending aortic aneurysm and dysphagia who presented with AMS and a fall with no LOC as per family . # AMS due to metabolic encephalopathy : due to UTI Due to Klebsiella Pneumoniae Patient is back to his baseline now. # Acute UTI due to Klebsiella Pneumoniae on Rocephin , sensitive to it. Leukocytosis improved 9.8 now #Acute COPD exacerabtion :On IV steroids continue neb. treatments ,on oxygen continue . Pulmonary on the case #Diastolic CHF: resume his home meds ( lasix , lisinopril, and norvasc ) # dysphagia : MBS's report as per Isela Alyx continue with chopped diet and thin liquid. monitor # DM :as per to discharge patient home on 15 units Levemir BID for now and Novolog 5 units TID. To call me at [phone] if FS >300 or <80. explained to the family; Daughter. # H/o stroke: on aspirin 81 mg po daily , will ask the daughter to follow up with her PMD in terms of statin use. # Constipation continue with Miralax, Senna continue
[2017-12-27 15:23] VITALS: BP 123/84; PULSE 113; TEMP 98.4
--- NOTE | 2017-12-27 15:50 | PN ---
Progress Note (short form) - Note Progress Note: Feels good Denies any complaints Discharged on tapering dose of Prednisone No hypos Vital Signs Period Temp Pulse Resp BP Sys/Pham Pulse Ox Last 24 Hr 98.2 F-99.1 F 59-113 20-22 115-151/74-84 96 PE: Awake, alert Neck: Supple, No JVD HEENT: EOMI Lungs: CTA CVS: S1S2 Abd: Benign Ext: No edema Neuro: Rt sided weakness CMP Sodium 138 mmol/L (136-145) 12/27/17 06:50 Potassium 4.4 mmol/L (3.5-5.1) 12/27/17 06:50 Chloride 98 mmol/L (98-107) 12/27/17 06:50 Carbon Dioxide 30 mmol/L (21-32) 12/27/17 06:50 Anion Gap 10 MMOL/L (8-16) 12/27/17 06:50 BUN 19 mg/dL (7-18) H 12/27/17 06:50 Creatinine 0.7 mg/dL (0.7-1.3) 12/27/17 06:50 Creat Clearance w eGFR > 60 (>60) 12/27/17 06:50 POC Glucometer 316 UNITS (80-120) 12/27/17 11:33 Random Glucose 261 mg/dL (74-106) H 12/27/17 06:50 Hemoglobin A1c % 7.6 % (4.8-6.0) H D 12/20/17 07:20 Lactic Acid 1.0 mmol/L (0.0-2.0) 12/20/17 07:13 Calcium 8.3 mg/dL (8.5-10.1) L 12/27/17 06:50 Phosphorus 2.9 mg/dL (2.5-4.9) D 12/26/17 07:00 Magnesium 2.5 mg/dL (1.8-2.4) H D 12/26/17 07:00 Total Bilirubin 0.5 mg/dL (0.2-1.0) 12/27/17 06:50 AST 36 U/L (15-37) 12/27/17 06:50 ALT 125 U/L (12-78) H 12/27/17 06:50 Alkaline Phosphatase 59 U/L (45-117) 12/27/17 06:50 Creatine Kinase 224 IU/L (39-308) 12/19/17 21:40 Creatine Kinase Index 0.4 % (0.0-5.0) 12/19/17 21:40 CK-MB (CK-2) < 1.00 ng/mL (0.5-3.6) 12/19/17 21:40 Troponin I 0.05 ng/ml (0.00-0.05) 12/23/17 20:45 B-Natriuretic Peptide 536.56 pg/ml (5-450) H 12/19/17 21:40 Total Protein 6.3 g/dl (6.4-8.2) L 12/27/17 06:50 Albumin 2.3 g/dl (3.4-5.0) L 12/27/17 06:50 Current Medications Generic Name Dose Route Start Last Admin Trade Name Freq PRN Reason Stop Dose Admin Aspirin 81 mg 12/23/17 10:00 12/27/17 09:35 Asa - PO 81 mg DAILY FLORIN Administration Atorvastatin Calcium 40 mg 12/23/17 22:00 12/26/17 22:09 Lipitor - PO 40 mg HS FLORIN Administration Diltiazem HCl 120 mg 12/23/17 10:00 12/27/17 09:35 Cardizem Cd - PO 120 mg DAILY FLORIN Administration Escitalopram Oxalate 10 mg 12/20/17 17:30 12/27/17 09:35 Lexapro - PO 10 mg DAILY FLORIN Administration Furosemide 40 mg 12/20/17 17:30 12/27/17 09:35 Lasix - PO 40 mg DAILY FLORIN Administration Gabapentin 300 mg 12/20/17 22:00 12/27/17 14:04 Neurontin - PO 300 mg TID FLORIN Administration Heparin Sodium (Porcine) 5,000 unit 12/20/17 06:00 12/27/17 14:04 Heparin - SQ 5,000 unit TID FLORIN Administration Ceftriaxone Sodium 1 gm/ 50 mls @ 100 mls/hr 12/21/17 15:15 12/27/17 09:38 Dextrose IVPB 100 mls/hr DAILY FLORIN Administration Protocol Insulin Aspart 1 vial 12/24/17 22:00 12/26/17 22:14 Novolog Vial Sliding Scale - SQ 8 units HS FLORIN Administration Protocol Insulin Aspart 1 vial 12/26/17 13:16 12/27/17 11:35 Novolog Vial Sliding Scale - SQ 18 units TIDAC FLORIN Administration Protocol Insulin Detemir 13 units 12/27/17 22:00 Levemir Vial SQ BID@0800,2200 [facility] Lisinopril 30 mg 12/20/17 17:15 12/27/17 09:35 Prinivil PO 30 mg DAILY FLORIN Administration Methylprednisolone Sodium Succinate 40 mg 12/26/17 18:15 12/27/17 09:34 Solu-Medrol - IVPUSH 40 mg Q8H-IV FLORIN Administration Polyethylene Glycol 17 gm 12/20/17 10:00 12/27/17 09:34 Miralax (For Daily Use) - PO 17 grams BID FLORIN Administration Senna/Docusate Sodium 2 tablet 12/20/17 14:53 12/22/17 22:28 Pericolace - PO 2 tablet HS PRN Administration CONSTIPATION AP: AMS: resolved UTI CHF COPD Decubitus ulcer T2DM with hyperglycemia Discussed with patient's daughter. Pt was taking Levemir 45 in morning and 20 in the evening. No premeal Insulin Explained to take 15 units Levemir BID for now and Novolog 5 units TID. To call me at [phone] if FS >300 or <80. Discussed with housestaff. F/u in office one week. BGM QACHS Prednisone tapering dose. Bronchodilators Will F/U
[2017-12-27] MEDS ORDERED: INSULIN (LEVEMIR) 100 UNITS/ML UNITS SQ SCH (22:00)
== END 2017-12-27 16:29 | disposition home health service (06) | DRG 190 ==
LOC: JER 18:23 → JERBED 23:14 → UNDOADMOB 23:14 → JERBED 12-20 00:33 → UNDOADMOB 12-20 00:33 → INTOOBSV 12-20 02:13 → OBSVTOIN 12-20 02:13 → JERBED 12-20 02:13 → J6S 12-20 03:14 → JERBED 12-20 03:14
PROVIDERS: ADMIT Internal Medicine; ATTEND Internal Medicine
DX: J44.1 Chronic obstructive pulmonary disease with (acute) exacerbation (principal); G93.41 Metabolic encephalopathy; G92 Toxic encephalopathy; N39.0 Urinary tract infection, site not specified; I50.30 Unspecified diastolic (congestive) heart failure; I69.351 Hemiplegia and hemiparesis following cerebral infarction affecting right dominant side; E11.65 Type 2 diabetes mellitus with hyperglycemia; B96.1 Klebsiella pneumoniae [K. pneumoniae] as the cause of diseases classified elsewhere; R13.10 Dysphagia, unspecified; K59.00 Constipation, unspecified; L89.322 Pressure ulcer of left buttock, stage 2; L89.312 Pressure ulcer of right buttock, stage 2; I10 Essential (primary) hypertension; R07.9 Chest pain, unspecified; R41.82 Altered mental status, unspecified; D72.829 Elevated white blood cell count, unspecified; E88.09 Other disorders of plasma-protein metabolism, not elsewhere classified; E66.9 Obesity, unspecified; Z68.36 Body mass index [BMI] 36.0-36.9, adult; E78.5 Hyperlipidemia, unspecified; R53.1 Weakness
CPT/HCPCS: 36415; 70450-TC; 71045-TC-FY; 74019-TC-FY; 74021-TC-FY; 74177-TC; 74230-TC-FY; 80048; 80053; 81003; 81015; 82009; 82550; 82553; 82803; 82962; 83036; 83605; 83735; 83880; 84100; 84484; 85025; 85610; 87040; 87086; 87186; 92611-GN; 93005; 93010; 93306-TC; 94640; 97116-GP; 97162-GP; 99283-25; J1644; J7620

== ENCOUNTER 2017-12-29 17:35 | Inpatient (IN) | payer OTHER ==
--- NOTE | 2017-12-29 19:35 | PDOC ---
History of Present Illness - General Chief Complaint: Weakness Stated Complaint: SOB Time Seen by Provider: 12/29/17 18:10 History Source: Care Provider - History of Present Illness Initial Comments: 12/29/17 19:28 Pt is a 77yo m with MH of CVA 5 years ago with R sided deficits, COPD, CHF, DM, HTN, HLD presenting to ED with home health speech therapist because "he did not get a safe discharge". Pt was recently discharged 2 days ago after being admitted for COPD exacerbation and Klebsiella UTI. According to home health speech therapist, pt was supposed to be discharged with physical therapy. Pt does not live at a [facility] nursing facility, only has 12 hour home aides. She also noticed a new rash on his penis. Pt is taking his new medications but unsure if he is still taking old medications. According to aide, pt is at his baseline. No other new symptoms. New meds: cefuroxime BID, prednisone taper, insulin adjustment for prednisone use. Daughter Suyapa's number: [phone] home health speech therapist Edie: [phone] Past History - Past Medical History Allergies/Adverse Reactions: Allergies Allergy/AdvReac Type Severity Reaction Status Date / Time No Known Allergies Allergy Verified 12/19/17 18:31 Home Medications: Ambulatory Orders Escitalopram Oxalate [Lexapro -] 10 mg PO DAILY 12/10/15 Gabapentin 300 mg PO TID 12/10/15 Diltiazem Cd [Cardizem Cd -] 120 mg PO DAILY tab 10/22/16 Amlodipine Besylate 10 mg PO DAILY 12/20/17 Azelastine HCl 205.5 mcg NS BID 12/20/17 Ergocalciferol (Vitamin D2) [Vitamin D2] 50,000 unit PO WEEKLY 12/20/17 Furosemide [Lasix -] 40 mg PO DAILY 12/20/17 Lidocaine 5% Top. Ointment [Xylocaine 5% Top. Ointment -] 1 applic TP TID Lisinopril [Prinivil] 30 mg PO DAILY 12/20/17 Aspirin [ASA -] 81 mg PO DAILY tab.chew 12/27/17 Atorvastatin Ca [Lipitor] 40 mg PO HS #30 tablet 12/27/17 Cefuroxime Axetil [Ceftin -] 500 mg PO BID #6 tablet 09/04/18 Insulin (LOG) Aspart [NovoLOG -] 5 units SQ TID 8 Days #1 vial 12/27/17 Insulin (Levemir) [Levemir Vial] 15 units SQ BID 8 Days #1 vial 12/27/17 Prednisone See Taper PO DAILY #20 tablet 12/27/17 Anemia: No Asthma: No Cancer: No Cardiac Disorders: Yes CVA: Yes (rt side hemiparesis) COPD: No CHF: Yes Dementia: No Diabetes: Yes GI Disorders: No Disorders: No HTN: Yes Hypercholesterolemia: Yes Liver Disease: No Seizures: No Thyroid Disease: No - Surgical History Abdominal Surgery: No Appendectomy: No Cardiac Surgery: No Cholecystectomy: No Lung Surgery: No Neurologic Surgery: No Orthopedic Surgery: No - Immunization History Immunization Up to Date: Yes - Suicide/Smoking/Psychosocial Hx Smoking Status: No Smoking History: Unknown if ever smoked Have you smoked in the past 12 months: No Number of Cigarettes Smoked Daily: 0 If you are a former smoker, when did you quit?: 6 years ago Information on smoking cessation initiated: No Hx Alcohol Use: No Drug/Substance Use Hx: No Substance Use Type: None Hx Substance Use Treatment: No Review of Systems - Review of Systems Constitutional: No: Chills, Fever HEENTM: No: Throat Pain Respiratory: Yes: Cough, Shortness of Breath Cardiac (ROS): No: Chest Pain, Palpitations ABD/GI: No: Constipated, Diarrhea, Nausea, Vomiting, Abdominal cramping : No: Burning, Dysuria Integumentary: Yes: Dryness (on tip of penis), Erythema (tip of penis) Neurological: Yes: Pre-Existing Deficit (R sided motor deficits from CVA 5-6 years ago) *Physical Exam - Vital Signs Last Vital Signs Temp Pulse Resp BP Pulse Ox 99.5 F 53 L 18 123/64 93 L 12/29/17 17:46 12/29/17 17:46 12/29/17 17:46 12/29/17 17:46 12/29/17 17:46 - Physical Exam Comments: 12/29/17 20:44 Pt in bed with home health speech therapist by side General Appearance: Yes: Obese. No: Apparent Distress HEENT: positive: EOMI, JEREL, Normal ENT Inspection, Pharynx Normal, Hearing Grossly Normal. negative: Pale Conjunctivae, Scleral Icterus (R), Scleral Icterus (L), Pharyngeal Erythema, Tonsillar Exudate, Tonsillar Erythema, Sinus Tenderness Neck: positive: Trachea midline, Supple. negative: Carotid bruit, Lymphadenopathy (R), Lymphadenopathy (L) Respiratory/Chest: positive: Rhonchi (in lung restrepo bilaterally). negative: Labored Respiration, Rapid RR Cardiovascular: positive: Regular Rhythm, S1, S2, Bradycardia. negative: JVD, Murmur Vascular Pulses: Carotid (R): 2+, Carotid (L): 2+, Dorsalis-Pedis (R): 2+, Doralis-Pedis (L): 2+ Gastrointestinal/Abdominal: positive: Normal Bowel Sounds, Soft, Distended, Hernia (compressable umbilical hernia). negative: Guarding, Rebound, Tenderness Male Genitalia: positive: other (tip of penis is dry with scaling. not warm, nontender. ). negative: discharge, testicular tenderness Musculoskeletal: negative: CVA Tenderness Integumentary: positive: Normal Color, Dry, Warm. negative: Pale, Cold, Clammy , Rash Neurologic: positive: senior business manager II-XII NML intact, Fully Oriented, Alert, Normal Response, Responsive, Other. negative: Facial Droop, Numbness (reduced motor strength on R side. pre-existing deficit. L side 5/5), Sensory Deficit, Confused , Disoriented ED Treatment Course - LABORATORY CBC & Chemistry Diagram: 12/29/17 20:32 12/29/17 22:05 Medical Decision Making - Medical Decision Making 12/29/17 20:48 Pt is a 77yo m with MH of CVA 5 years ago with R sided deficits, COPD, CHF, DM, HTN, HLD presenting to ED with home health speech therapist because "he did not get a safe discharge". -recently d/c with abx and steroids. PE revealed course breath sounds. hemodynamically stable, saturating well on 2L nc. -Will draw labs, ekg, will check UA. give duoneb and solumedrol for breathing. CXR showed no acute changes from last admission. EKG showed PVC, no changes from last EKG. Labs showed leukocytosis 22.9. pt is on steroids. Glucose elevated at 309. pt on steroids. Other labs wnl. UA negative. improving with abx. -placed bacitracin on penis to prevent infection. Will admit for COPD exacerbation. Pt started on levaquin. *DC/Admit/Observation/Transfer Diagnosis at time of Disposition: COPD exacerbation - Discharge Dispostion Condition at time of disposition: Stable Decision to Admit order: Yes - Referrals - Patient Instructions - Post Discharge Activity
[2017-12-29] MEDS ORDERED: BACITRACIN 15 GM TUBE TOPICAL OINTMENT TP ONE (20:17)
[2017-12-29] MEDS ORDERED: ALBUTEROL SO4 2.5/IPRATROPIUM 0.5 INH SOL 3 ML VIAL.NEB. NEB ONE ×4 (20:30→22:19)
[2017-12-29] MEDS ORDERED: BACITRACIN 0.9 GM PACKET ONE (20:33)
--- NOTE | 2017-12-29 20:34 | PDOC ---
Attending Attestation - HPI HPI: 12/29/17 20:44 The patient is a 77-year-old male, with a past medical history of CVA (RT-sided hemiparesis), CHF, DM, HTN, and HLD, who presents to the ED with generalized weakness while at home. The patient was discharged from the hospital 2 days ago for UTI and CHF exacerbation. Patient has been taking ceftriaxone for Klebsiella. Home health aide is at bedside and has noted a recent decrease in PO intake, cough, and redness and swelling to the tip of the patient's penis. - Physicial Exam PE: 12/29/17 20:52 GENERAL: Awake, alert, and fully oriented, in no acute distress HEAD: No signs of trauma EYES: PERRLA, EOMI, sclera anicteric, conjunctiva clear ENT: Auricles normal inspection, hearing grossly normal, nares patent, oropharynx clear without exudates. Moist mucosa NECK: Normal ROM, supple, no lymphadenopathy, JVD, or masses LUNGS: (+)Coarse and rhonchorous breath sounds bilaterally, left greater than right. HEART: Regular rate and rhythm, normal S1 and S2, no murmurs, rubs or gallops ABDOMEN: Soft, nontender, normoactive bowel sounds. No guarding, no rebound. No masses GENITOURINARY: (+)Mild erythema noted to tip of penis. No scrotal rash, no crepitus palpated, no desquamation. EXTREMITIES: Normal range of motion, no edema. No clubbing or cyanosis. No cords, erythema, or tenderness NEUROLOGICAL: Cranial nerves II through XII grossly intact. SKIN: Warm, Dry, normal turgor, no rashes or lesions noted. <Olga Aragon - Last Filed: 12/29/17 20:50> - Resident Resident Name: Janell López - ED Attending Attestation I have performed the following: I have examined & evaluated the patient, The case was reviewed & discussed with the resident, I agree w/resident's findings & plan, Exceptions are as noted - Medical Decision Making 12/29/17 20:29 I, Dr. Adelina Zavala, DO, attest that this document has been prepared under my direction and personally reviewed by me in its entirety. I further attest, that it accurately reflects all work, treatment, procedures and medical decision -making performed by me. 12/29/17 20:29 a/p: 77yo male with cough/recent uti/copd and rash to penis -concern for pna, worsening uti, generalized weakness -per d/c paperowrk the patient was supposed to received PT at home which he has not been receiving and pt is becoming weakner -brought in by home health aide -will send labs, ua, ucx, cxr -will give neb -will add bacitracin to penis -will most likely need to stay in the hospital for further eval and treatment. 12/30/17 01:44 pt with a copd exacerbation leukocytosis (currently treated for COPD, but also on abx for UTI - increasing WBC) pt with mild sob generally weak ua clear will place in obs for furhter eval and treatment of COPD and weakness case discussed with SYMPHONY who accepts pt to service <Adelina Zavala - Last Filed: 12/30/17 01:45> Heart Score/ECG Review - ECG Intrepretation Comment:: 12/29/17 20:31 sinus at 96, lvh, pvc, baseline artifact- abnl ekg <Adelina Zavala - Last Filed: 12/30/17 01:45> Attestations - Attestations Physician Attestation: 12/29/17 20:58 Documentation prepared by Olga Aragon, acting as medical csr for Adelina Zavala DO. <Olga Aragon - Last Filed: 12/29/17 20:50>
[2017-12-29 21:00] LABS: BASO % 0.4 % (0-2.0); EOS % 0.3 % (0-4.5); HEMATOCRIT 39.4 % (35.4-49); HEMOGLOBIN 13.7 GM/dL (11.7-16.9); LYMPH % 9.3 % (8-40); MCH 31.5 pg (25.7-33.7); MCHC 34.8 g/dl (32.0-35.9); MEAN CELL VOLUME 90.5 fl (80-96); MEAN PLT VOLUME 9.5 fl (7.5-11.1); MONO % 5.5 % (3.8-10.2); NEUT % 84.5 % (42.8-82.8); PLATELET COUNT 326 K/MM3 (134-434); RBC 4.35 M/mm3 (4.00-5.60); RDW 15.3 % (11.9-15.9); WHITE BLOOD COUNT 22.9 K/mm3 (4.0-10.0)
[2017-12-29 21:12] LABS: INR 1.09 (0.83-1.09); PROTHROMBIN TIME (PATIENT) 12.3 SEC (9.7-13.0)
[2017-12-29 21:49] LABS: URINE APPEARANCE CLEAR; URINE BILIRUBIN NEGATIVE (<2.0 mg/dL); URINE COLOR YELLOW; URINE GLUCOSE (UA) 3+ (NEGATIVE); URINE KETONE NEGATIVE (NEGATIVE); URINE LEUK ESTERASE NEGATIVE (NEGATIVE); URINE NITRITE NEGATIVE (NEGATIVE); URINE PROTEIN NEGATIVE (NEGATIVE)
[2017-12-29 21:51] LABS: EPI CELLS RARE /HPF (FEW); URINE MUCUS RARE
[2017-12-29] MEDS ORDERED: methylPREDNISolone NA SUCC 125 MG/2 ML VIAL IVPB ONE (21:57)
[2017-12-29] MEDS ORDERED: methylPREDNISolone NA SUCC 125 MG/2 ML VIAL ONE (22:19)
[2017-12-29 22:29] LABS: MACROCYTOSIS 1+
[2017-12-29 22:30] LABS: PLATELET ESTIMATE ADEQUATE
[2017-12-29 22:40] LABS: ALBUMIN 2.5 g/dl (3.4-5.0); ANION GAP 10 MMOL/L (8-16); BILIRUBIN,TOTAL 0.6 mg/dL (0.2-1.0); BLOOD UREA NITROGEN 16 mg/dL (7-18); CALCIUM 8.3 mg/dL (8.5-10.1); CHLORIDE 98 mmol/L (98-107); CO2 27 mmol/L (21-32); CREATININE 0.9 mg/dL (0.7-1.3); MAGNESIUM 2.4 mg/dL (1.8-2.4); POTASSIUM 4.1 mmol/L (3.5-5.1); SGOT/AST 35 U/L (15-37); SGPT/ALT 115 U/L (12-78); SODIUM 135 mmol/L (136-145); TOT PROT 6.5 g/dl (6.4-8.2)
[2017-12-29 22:43] LABS: ALK PHOS 61 U/L (45-117)
[2017-12-29 22:48] LABS: GLUCOSE,RANDOM 336 mg/dL (74-106)
--- NOTE | 2017-12-30 02:29 | PN ---
Teaching Attending Note Name of Resident: Anusha Gunderson ATTENDING PHYSICIAN STATEMENT I saw and evaluated the patient. Chart, data, imaging reviewed. I reviewed the resident's note and discussed the case with the resident. I agree with the resident's findings and plan as documented. SUBJECTIVE: 77-year-old male, with a past medical history of CVA (RT-sided hemiparesis), CHF , DM, HTN, and HLD, who presents with generalized weakness while at home. The patient was discharged from the hospital 3 days ago for UTI and COPD exacerbation. Currently on prednisone taper. Home health aide noted a recent decrease in PO intake, cough, and rash at tip of the patient's penis as well as expressed concern for need for additional PT. Patient does not have any other complaints. OBJECTIVE: Last Vital Signs Temp Pulse Resp BP Pulse Ox 99.5 F 78 30 H 156/112 97 12/29/17 17:46 12/29/17 20:47 12/29/17 20:47 12/29/17 20:47 12/29/17 21:13 general -bedbound, nontoxic appearing heent -at, nc, moist oral mucosa cv-s1+s2+rrr chest - slight scattered wheezes appreciated abdomen -soft, nt, bs+ ext - right sided hemiparesis genitalia - dark pruritic rash on glans stage 2 decubitus ulcer Abnormal Lab Results 12/29/17 12/29/17 12/29/17 20:32 21:19 22:05 WBC 22.9 H Absolute Neuts (auto) 19.3 H Neutrophils % 84.5 H Sodium 135 L Random Glucose 336 H* D Calcium 8.3 L ALT 115 H Troponin I 0.07 H D Albumin 2.5 L Ur Specific [place] 1.037 H Urine Glucose (UA) 3+ H Urine Blood 1+ H ASSESSMENT AND PLAN: 77-year-old male, with a past medical history of CVA (RT-sided hemiparesis), CHF , DM, HTN, and HLD, who presents with generalized weakness. Likely jock itch requiring clotrimazole topically. Leukocytosis and uncontrolled hyperglycemia may be from prednisone taper. Resolving COPD exacerbation on prednisone taper. -observation -PT evaluation -duonebs q6hrs -c/w prednisone taper -wound care to sacral decubitus ulcer -clotrimazole topically to penis -tighter glucose control - basal insulin+ sliding scale -c/w home meds -see resident note for details -heparin sc for dvt ppx
[2017-12-30] MEDS ORDERED: predniSONE 10 MG TABLET (UD) PO ONE (02:37)
[2017-12-30] MEDS ORDERED: ERGOCALCIFEROL (VITAMIN D2) 50,000 UNIT CAPSULE (FP) PO SCH (02:45)
--- NOTE | 2017-12-30 03:19 | HP ---
CHIEF COMPLAINT: Inability to Ambulate PCP: None HISTORY OF PRESENT ILLNESS: 77 y/o male with a PMHx of HTN, HLD, DM Type 2, COPD, CHF (Diastolic dysfunction ), Ischemic CVA (Residual right sided weakness), and Chronic Dysphagia (Trach in the past) presents with Inability to Ambulate since his prior discharge. Patient was discharged on 12/27 on a Steroid Taper and 3 day course of Ceftin after being admitted for Near Fall and UTI. Today, patient continues to complain of the same Right lower extremity pain and difficulty with ambulation as he felt on his prior admission. Of note, the patient did arrive to the ED with a nurse/aide however this person was not present for my interview. Additionally, patient was observed to have audible wheezes however despite this , patient says his breathing has improved since discharge. Denies any fevers, chills, chest pain, nausea, vomiting, diarrhea, urinary frequency/urgency, dysuria, Dizziness. 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 Ointment 1 applic TP TID 12/20/17 [Xylocaine 5% Top. Ointment -] Lisinopril [Prinivil] 30 mg PO DAILY 12/20/17 Aspirin [ASA -] 81 mg PO DAILY tab.chew 12/27/17 Atorvastatin Ca [Lipitor] 40 mg PO HS #30 tablet 12/27/17 Cefuroxime Axetil [Ceftin -] 500 mg PO BID #6 tablet 12/27/17 Insulin (LOG) Aspart [NovoLOG -] 5 units SQ TID 8 Days #1 vial 12/27/17 Insulin (Levemir) [Levemir Vial] 15 units SQ BID 8 Days #1 vial 12/27/17 Prednisone See Taper PO DAILY #20 tablet 12/27/17 REVIEW OF SYSTEMS CONSTITUTIONAL: Absent: fever, chills, diaphoresis, generalized weakness, malaise, loss of appetite, weight change HEENT: Absent: rhinorrhea, nasal congestion, throat pain, throat swelling, difficulty swallowing, mouth swelling, ear pain, eye pain, visual changes CARDIOVASCULAR: Absent: chest pain, syncope, palpitations, irregular heart rate, lightheadedness , peripheral edema RESPIRATORY: Present: wheezing Absent: cough, shortness of breath, dyspnea with exertion, orthopnea, stridor, hemoptysis GASTROINTESTINAL: Present: abdominal distension Absent: abdominal pain, nausea, vomiting, diarrhea, constipation, melena, hematochezia GENITOURINARY: Absent: dysuria, frequency, urgency, hesitancy, hematuria, flank pain, genital pain MUSCULOSKELETAL: Absent: myalgia, arthralgia, joint swelling, back pain, neck pain SKIN: Absent: rash, itching, pallor HEMATOLOGIC/IMMUNOLOGIC: Absent: easy bleeding, easy bruising, lymphadenopathy, frequent infections ENDOCRINE: Absent: unexplained weight gain, unexplained weight loss, heat intolerance, cold intolerance NEUROLOGIC: Present: Right sided Weakness, Unsteady gait Absent: headache, dizziness, seizure, mental status changes, bladder or bowel incontinence PSYCHIATRIC: Absent: anxiety, depression, suicidal or homicidal ideation, hallucinations. PHYSICAL EXAMINATION Vital Signs - 24 hr 12/29/17 12/29/17 12/29/17 17:46 19:35 20:47 Temperature 99.5 F Pulse Rate 53 L 94 H Pulse Rate [ 78 Apical] Respiratory 18 30 H Rate Blood Pressure 123/64 Blood Pressure 156/112 [Right Arm] O2 Sat by Pulse 93 L 97 97 Oximetry (%) 12/29/17 21:13 Temperature Pulse Rate Pulse Rate [ Apical] Respiratory Rate Blood Pressure Blood Pressure [Right Arm] O2 Sat by Pulse 97 Oximetry (%) GENERAL: Awake, alert, and fully oriented, in no acute distress. HEAD: NCAT EYES: PERRL THROAT: Oropharynx clear without exudates. Moist mucous membranes. LUNGS: Audible wheezes heard throughout, via 3L NC HEART: Regular rate and rhythm, normal S1 and S2 without murmur. ABDOMEN: Soft, nontender, Distended, Tympanic, + bowel sounds, Reducible Umbilical hernia present, no guarding, no rebound : Genatalia intact, Dry Erythematous punctate lesions over the glans of the penis without any discharge, No urethral discharge, Hennessy film seen over Scrotum that wipes off with ease, No erythema seen under film BACK: Stage 2 healing ulcer over the Right Gluteus, without active discharge of bleeding MUSCULOSKELETAL: No CVA tenderness. EXTREMITIES: 2+ pulses, No calf tenderness. 2+ peripheral edema NEUROLOGICAL: Residual Right facial droop, Other remaining Cranial nerves II- XII intact. Slurred speech. C5-T1 and L4-S1 gross sensation intact. RUE muscle strength 2/5, LUE muscle strength 4/5, RLE muscle strength 1/5, LLE Muscle strength 4/5 SKIN: Warm, dry, no other rashes or lesions noted. Laboratory Results - last 24 hr 12/29/17 12/29/17 12/29/17 20:32 20:32 20:32 WBC 22.9 H RBC 4.35 Hgb 13.7 Hct 39.4 MCV 90.5 MCH 31.5 MCHC 34.8 RDW 15.3 Plt Count 326 MPV 9.5 Absolute Neuts (auto) 19.3 H Total Counted 100 Neutrophils % 84.5 H Neutrophils % (Manual) 81.0 Band Neutrophils % 1.0 Lymphocytes % 9.3 D Lymphocytes % (Manual) 10.0 Monocytes % 5.5 Monocytes % (Manual) 4 Eosinophils % 0.3 D Basophils % 0.4 Nucleated RBC % 0 Differential Comment Man diff performed Platelet Estimate Adequate Platelet Comment Polychromasia 1+ Macrocytosis 1+ PT with INR INR Sodium Cancelled Potassium Cancelled Chloride Cancelled Carbon Dioxide Cancelled Anion Gap Cancelled BUN Cancelled Creatinine Cancelled Creat Clearance w eGFR Cancelled Random Glucose Cancelled Calcium Cancelled Phosphorus Magnesium Total Bilirubin Cancelled AST Cancelled ALT Cancelled Alkaline Phosphatase Cancelled Creatine Kinase Creatine Kinase Index CK-MB (CK-2) Troponin I Cancelled B-Natriuretic Peptide Total Protein Cancelled Albumin Cancelled Urine Color Urine Appearance Urine pH Ur Specific [place] Urine Protein Urine Glucose (UA) Urine Ketones Urine Blood Urine Nitrite Urine Bilirubin Urine Urobilinogen Ur Leukocyte Esterase Urine WBC (Auto) Urine RBC (Auto) Ur Epithelial Cells Urine Mucus 12/29/17 12/29/17 12/29/17 20:32 20:32 21:19 WBC RBC Hgb Hct MCV MCH MCHC RDW Plt Count MPV Absolute Neuts (auto) Total Counted Neutrophils % Neutrophils % (Manual) Band Neutrophils % Lymphocytes % Lymphocytes % (Manual) Monocytes % Monocytes % (Manual) Eosinophils % Basophils % Nucleated RBC % Differential Comment Platelet Estimate Platelet Comment Polychromasia Macrocytosis PT with INR 12.30 INR 1.09 Sodium Potassium Chloride Carbon Dioxide Anion Gap BUN Creatinine Creat Clearance w eGFR Random Glucose Calcium Phosphorus Cancelled Magnesium Cancelled Total Bilirubin AST ALT Alkaline Phosphatase Creatine Kinase Creatine Kinase Index CK-MB (CK-2) Troponin I B-Natriuretic Peptide Cancelled Total Protein Albumin Urine Color Yellow Urine Appearance Clear Urine pH 6.0 Ur Specific [place] 1.037 H Urine Protein Negative Urine Glucose (UA) 3+ H Urine Ketones Negative Urine Blood 1+ H Urine Nitrite Negative Urine Bilirubin Negative Urine Urobilinogen 2.0 Ur Leukocyte Esterase Negative Urine WBC (Auto) 2 Urine RBC (Auto) 2 Ur Epithelial Cells Rare Urine Mucus Rare 12/29/17 12/29/17 22:05 22:05 WBC RBC Hgb Hct MCV MCH MCHC RDW Plt Count MPV Absolute Neuts (auto) Total Counted Neutrophils % Neutrophils % (Manual) Band Neutrophils % Lymphocytes % Lymphocytes % (Manual) Monocytes % Monocytes % (Manual) Eosinophils % Basophils % Nucleated RBC % Differential Comment Platelet Estimate Platelet Comment Polychromasia Macrocytosis PT with INR INR Sodium 135 L Potassium 4.1 Chloride 98 Carbon Dioxide 27 Anion Gap 10 BUN 16 Creatinine 0.9 Creat Clearance w eGFR > 60 Random Glucose 336 H* D Calcium 8.3 L Phosphorus Magnesium 2.4 Total Bilirubin 0.6 AST 35 ALT 115 H Alkaline Phosphatase 61 Creatine Kinase 278 Creatine Kinase Index 0.5 CK-MB (CK-2) 1.47 Troponin I 0.07 H D B-Natriuretic Peptide 245.97 Total Protein 6.5 Albumin 2.5 L Urine Color Urine Appearance Urine pH Ur Specific [place] Urine Protein Urine Glucose (UA) Urine Ketones Urine Blood Urine Nitrite Urine Bilirubin Urine Urobilinogen Ur Leukocyte Esterase Urine WBC (Auto) Urine RBC (Auto) Ur Epithelial Cells Urine Mucus Active Medications Albuterol/Ipratropium (Duoneb -) 1 amp NEB RQID [facility] Amlodipine Besylate (Norvasc -) 10 mg PO DAILY [facility] Aspirin (Asa -) 81 mg PO DAILY [facility] Atorvastatin Calcium (Lipitor -) 40 mg PO HS [facility] Cefuroxime Axetil (Ceftin -) 500 mg PO BID [facility] Stop: 12/30/17 22:01 Clotrimazole (Lotrimin 1% Cream -) 1 applic TP BID [facility] Diltiazem HCl (Cardizem Cd -) 120 mg PO DAILY [facility] Ergocalciferol (Drisdol -) 50,000 unit PO Fr [facility] Escitalopram Oxalate (Lexapro -) 10 mg PO DAILY [facility] Furosemide (Lasix -) 40 mg PO DAILY [facility] Gabapentin (Neurontin -) 300 mg PO TID [facility] Heparin Sodium (Porcine) (Heparin -) 5,000 unit SQ TID [facility] Insulin Aspart (Novolog Vial Sliding Scale -) 1 vial SQ ACHS [facility]; Protocol Lidocaine HCl (Xylocaine 5% Top. Ointment) 1 applic TP TID [facility] Lisinopril (Prinivil) 30 mg PO DAILY [facility] Non-Formulary Medication (Azelastine Hcl [Azelastine Hcl]) 205.5 mcg NS BID [facility] ASSESSMENT/PLAN: 77 y/o male with a PMHx of HTN, HLD, DM Type 2, COPD, CHF (Diastolic dysfunction ), Ischemic CVA (Residual right sided weakness), and Chronic Dysphagia (Trach in the past) presents with Inability to ambulate and will be observed on Med- Surg 1. Inability to ambulate - Fall precautions - Aspiration precautions - PT requested - May need SNF placement on D/c 2. COPD exacerbation - Duonebs QID - Continue Prednisone taper; Ordered one time dose for 30mg today - Continue medications from previous discharge, Ordered last dose of Ceftin BID for today 3. Genital Rash - Likely Tinea cruris - Topical Clotimrazole 4. Sacral decubitus Ulcer - Wound care with Silver Sulfadiazine daily 5. Leukocytosis - Likely due to Prednisone taper - Continue to monitor for signs of infection 6. Hyperglycemia - Likely due to Prednisone taper - Hold home meds - ISS BGMs ACHS 7. FEN - PO Fluids - Lytes WNL - Dysphagia Puree Thin liquid diet 8. PPx - DVT: Heparin 5,000 unit SQ TID Visit type - Emergency Visit Emergency Visit: Yes ED Registration Date: 12/30/17 Care time: The patient presented to the Emergency Department on the above date and was hospitalized for further evaluation of their emergent condition. - New Patient This patient is new to me today: Yes Date on this admission: 12/30/17 - Critical Care Critical Care patient: No Hospitalist Screening - Colonoscopy Questionnaire Colonoscopy Questionnaire: Colonoscopy Questionnaire - Patient: 50 - 75 years old and never had a screening colonoscopy: Unknown History of colon or rectal polyps, or CA: Unknown History of IBD, Crohn's disease or UC: Unknown History of abdominal radiation therapy as a child: Unknown - Relative: 1 with colon or rectal CA, or polyps at age 60 or younger: Unknown Colon or rectal CA diagnosed at age 45 or younger: Unknown Multiple relatives with colon or rectal CA: Unknown - Outcome: Screening Result: Negative Screen
[2017-12-30 07:00] LABS: BASO % 0.3 % (0-2.0); HEMATOCRIT 41.1 % (35.4-49); HEMOGLOBIN 14.4 GM/dL (11.7-16.9); LYMPH % 7.9 % (8-40); MCH 31.4 pg (25.7-33.7); MCHC 35.2 g/dl (32.0-35.9); MEAN CELL VOLUME 89.3 fl (80-96); MONO % 2.5 % (3.8-10.2); NEUT % 89.3 % (42.8-82.8); PLATELET COUNT 304 K/MM3 (134-434); RDW 15.3 % (11.9-15.9); WHITE BLOOD COUNT 19.5 K/mm3 (4.0-10.0)
[2017-12-30] MEDS: GABAPENTIN 300 MG CAPSULE (FP) PO SCH ×3 (07:20→22:29)
[2017-12-30] MEDS: INSULIN SLIDING SCALE (NOVOLOG) 1 VIAL SQ SCH ×4 (07:21→22:31)
[2017-12-30] MEDS ORDERED: INSULIN REGULAR HUMAN 100 UNITS/ML *VIAL ONE (07:22)
[2017-12-30 07:35] LABS: CHLORIDE 96 mmol/L (98-107); POTASSIUM 4.1 mmol/L (3.5-5.1); SODIUM 133 mmol/L (136-145)
[2017-12-30 07:41] LABS: ALBUMIN 2.6 g/dl (3.4-5.0); ALK PHOS 64 U/L (45-117); ANION GAP 7 MMOL/L (8-16); BILIRUBIN,TOTAL 0.8 mg/dL (0.2-1.0); BLOOD UREA NITROGEN 17 mg/dL (7-18); CALCIUM 8.4 mg/dL (8.5-10.1); CO2 30 mmol/L (21-32); CREATININE 0.9 mg/dL (0.7-1.3); GLUCOSE,RANDOM 294 mg/dL (74-106); MAGNESIUM 2.4 mg/dL (1.8-2.4); PHOSPHOROUS 3.6 mg/dL (2.5-4.9); SGOT/AST 33 U/L (15-37); SGPT/ALT 111 U/L (12-78); TOT PROT 6.9 g/dl (6.4-8.2)
[2017-12-30] MEDS: LIDOCAINE HCL 5% TOP OINTMENT 50 GM TUBE TP SCH ×3 (08:31→22:32)
[2017-12-30] MEDS: ALBUTEROL SO4 2.5/IPRATROPIUM 0.5 INH SOL 3 ML VIAL.NEB. NEB SCH ×4 (08:44→21:52)
--- NOTE | 2017-12-30 09:11 | EKG ---
Test Reason : Blood Pressure : / mmHG Vent. Rate : 096 BPM Atrial Rate : 086 BPM P-R Int : 126 ms QRS Dur : 106 ms QT Int : 368 ms P-R-T Axes : 032 -03 008 degrees QTc Int : 464 ms SINUS RHYTHM WITH FREQUENT and consecutive PREMATURE VENTRICULAR COMPLEXES POSSIBLE LEFT ATRIAL ENLARGEMENT ABNORMAL ECG Confirmed by PARRISH LU MD ([id number]) on 12/30/2017 9:10:53 AM Referred By: Confirmed By:PARRISH LU MD
[2017-12-30] MEDS: ESCITALOPRAM OXALATE 10 MG TABLET (FP) PO SCH (09:15)
[2017-12-30] MEDS: ASPIRIN 81 MG CHEWABLE TABLETS PO SCH (09:15)
[2017-12-30] MEDS: FUROSEMIDE 40 MG TABLET (FP) PO SCH (09:15)
[2017-12-30] MEDS: CEFUROXIME AXETIL 500 MG TABLET PO SCH ×2 (09:15→22:30)
[2017-12-30] MEDS: LISINOPRIL 10 MG TABLET (FP) PO SCH (09:16)
[2017-12-30] MEDS: amLODIPine BESYLATE 10 MG TABLET (FP) PO SCH (09:16)
[2017-12-30] MEDS ORDERED: PATIENT'S OWN MEDICATION (NON-FORMULARY) (Azelastine Hcl [Azelastine Hcl] 205.5 MCG) NS SCH (10:00)
[2017-12-30] MEDS ORDERED: methylPREDNISolone NA SUCC 40 MG/1 ML VIAL IVPUSH SCH (10:00)
[2017-12-30] MEDS ORDERED: INSULIN (LEVEMIR) 100 UNITS/ML UNITS SQ SCH (10:15)
[2017-12-30] MEDS ORDERED: INSULIN (LEVEMIR) 100 UNITS/ML UNITS SQ ONE (10:34)
[2017-12-30] MEDS ORDERED: methylPREDNISolone NA SUCC 40 MG/1 ML VIAL ONE (10:42)
[2017-12-30] MEDS: NYSTATIN 500,000 UNITS/5 ML SUSPENSION PO SCH ×2 (11:59→17:18)
[2017-12-30] MEDS: SILVER SULFADIAZINE 1% TOP CREAM 50 GM JAR TP SCH (11:59)
[2017-12-30] MEDS: CLOTRIMAZOLE 1% CREAM 15 GM TUBE TP SCH ×2 (11:59→22:30)
--- NOTE | 2017-12-30 13:11 | PN ---
Teaching Attending Note Name of Resident: Roman Goins ATTENDING PHYSICIAN STATEMENT I saw and evaluated the patient. I reviewed the resident's note and discussed the case with the resident. I agree with the resident's findings and plan as documented. SUBJECTIVE: No fever or chills. No abd pain. No cough . has pain in R sided arm and leg which is on and off after his stroke . No dysuria , no Abd pain . his weakness is at his base line . OBJECTIVE: NAd, awake, cooperative, alert. mild L lower facial droop. EOMI, round pupils . tongue at midline CV: RRR, No JVD Lungs: upper airway noises and gargling, good air entry , no crackles or wheezes Abd: distended , tympanic, NT. reducible umbilical hernia Ext: 1+ edema and discoloration on lower legs Neuro : EOMi, round pupils , L lower facial droop. tongue at mid line. strenght : RUE: 3/5 in shoulder shrug .0/5 abduction , biceps and triceps . can move his thumb LUE: 5/5 shoulder shrug, abduction , biceps and triceps RLE: 0/5 in hip flexion , knee flexion/extension , 0/5 ankle dorsiflexion LLE: 4/5 hip flexion . 4/5 knee flexion and extension. 5/5 ankle dorsiflexion and plantar flexion ASSESSMENT AND PLAN: 77 y/o man with h/o COPD on O 2, DM, HTn, HLP, h/o Trach , stroke with R sided residual weakness, ascending aortic aneurysm and dysphagea , and recent hospitalization for UTI and COPD exacerbation who was sent form home due to R sided pain 1- R sided pain. tylenol if needed. no new neuro sx 2- H/o COPD: recent treatment last admission, now on steroid taper. will cont taper and NEbs/inhalers 3- Leukcytosis: likely due to steroids use. No indication of infection. 4- Recent UTI: cont ceftin until finished 5- h/o Diastolic heart failure: no exacerbation. Resume home meds. 6- DM: cont with levemir 15 bID, novolog 5 TId and SSI 7- DVT pX dispo : d/w SW his placement.
[2017-12-30] MEDS ORDERED: INSULIN (NOVOLOG) ASPART 100 UNITS/ML 10ML VIAL SQ ONE (13:25)
--- NOTE | 2017-12-30 13:38 | PN ---
Physical Exam: SUBJECTIVE: Patient seen and examined at bedside. Complains of pain in right arm and leg, clarifies this is a chronic intermittent problem since his stroke. No other complaints. Has full capacity and is now amenable to SNF placement. OBJECTIVE: Vital Signs Period Temp Pulse Resp BP Sys/Pham Pulse Ox Last 24 Hr 99.5 F 53-94 18-30 123-156/64-112 93-100 GENERAL: A&Ox3, NAD HEAD: NC/AT EYES: PERRLA, EOMI, sclera anicteric HEENT: MMM, oral thrush NECK: Trachea midline, full range of motion, supple, no JVD LUNGS: tracheal breath sounds, coarse ronchi diffusely HEART: normal S1S2, RRR, no m/r/g ABDOMEN: distended, tympanitic, non-tender, reducible umbilical hernia EXTREMITIES: 2+ pulses, warm, well-perfused, 1+ pitting edema in b/l LE NEUROLOGICAL: -CN exam notable for significant right and mild left facial droop, dysarthria, otherwise intact -strength 4/5 in LUE and LLE, 0/5 in proximal RUE, 2/5 in distal RUE, 0/5 in proximal RLE, 1/5 in distal RLE -sensation grossly intact -could not evaluate FtN or HtS -could not elicit biceps or patellar reflexes -upgoing plantars b/l R>L SKIN: stage 2 decubitus ulcers on buttocks b/l improved vs prior discharge, genital rash with tinea appearance Laboratory Results - last 24 hr 12/29/17 12/29/17 12/29/17 20:32 20:32 20:32 WBC 22.9 H RBC 4.35 Hgb 13.7 Hct 39.4 MCV 90.5 MCH 31.5 MCHC 34.8 RDW 15.3 Plt Count 326 MPV 9.5 Absolute Neuts (auto) 19.3 H Total Counted 100 Neutrophils % 84.5 H Neutrophils % (Manual) 81.0 Band Neutrophils % 1.0 Lymphocytes % 9.3 D Lymphocytes % (Manual) 10.0 Monocytes % 5.5 Monocytes % (Manual) 4 Eosinophils % 0.3 D Basophils % 0.4 Nucleated RBC % 0 Differential Comment Man diff performed Platelet Estimate Adequate Platelet Comment Polychromasia 1+ Macrocytosis 1+ PT with INR INR Sodium Cancelled Potassium Cancelled Chloride Cancelled Carbon Dioxide Cancelled Anion Gap Cancelled BUN Cancelled Creatinine Cancelled Creat Clearance w eGFR Cancelled POC Glucometer Random Glucose Cancelled Calcium Cancelled Phosphorus Magnesium Total Bilirubin Cancelled AST Cancelled ALT Cancelled Alkaline Phosphatase Cancelled Creatine Kinase Creatine Kinase Index CK-MB (CK-2) Troponin I Cancelled B-Natriuretic Peptide Total Protein Cancelled Albumin Cancelled Urine Color Urine Appearance Urine pH Ur Specific Lindsay Urine Protein Urine Glucose (UA) Urine Ketones Urine Blood Urine Nitrite Urine Bilirubin Urine Urobilinogen Ur Leukocyte Esterase Urine WBC (Auto) Urine RBC (Auto) Ur Epithelial Cells Urine Mucus 12/29/17 12/29/17 12/29/17 20:32 20:32 21:19 WBC RBC Hgb Hct MCV MCH MCHC RDW Plt Count MPV Absolute Neuts (auto) Total Counted Neutrophils % Neutrophils % (Manual) Band Neutrophils % Lymphocytes % Lymphocytes % (Manual) Monocytes % Monocytes % (Manual) Eosinophils % Basophils % Nucleated RBC % Differential Comment Platelet Estimate Platelet Comment Polychromasia Macrocytosis PT with INR 12.30 INR 1.09 Sodium Potassium Chloride Carbon Dioxide Anion Gap BUN Creatinine Creat Clearance w eGFR POC Glucometer Random Glucose Calcium Phosphorus Cancelled Magnesium Cancelled Total Bilirubin AST ALT Alkaline Phosphatase Creatine Kinase Creatine Kinase Index CK-MB (CK-2) Troponin I B-Natriuretic Peptide Cancelled Total Protein Albumin Urine Color Yellow Urine Appearance Clear Urine pH 6.0 Ur Specific Lindsay 1.037 H Urine Protein Negative Urine Glucose (UA) 3+ H Urine Ketones Negative Urine Blood 1+ H Urine Nitrite Negative Urine Bilirubin Negative Urine Urobilinogen 2.0 Ur Leukocyte Esterase Negative Urine WBC (Auto) 2 Urine RBC (Auto) 2 Ur Epithelial Cells Rare Urine Mucus Rare 12/29/17 12/29/17 12/30/17 22:05 22:05 06:20 WBC 19.5 H RBC 4.60 Hgb 14.4 Hct 41.1 MCV 89.3 MCH 31.4 MCHC 35.2 RDW 15.3 Plt Count 304 MPV 9.0 Absolute Neuts (auto) 17.4 H Total Counted Neutrophils % 89.3 H Neutrophils % (Manual) Band Neutrophils % Lymphocytes % 7.9 L Lymphocytes % (Manual) Monocytes % 2.5 L Monocytes % (Manual) Eosinophils % 0.0 D Basophils % 0.3 Nucleated RBC % 0 Differential Comment Platelet Estimate Platelet Comment Polychromasia Macrocytosis PT with INR INR Sodium 135 L Potassium 4.1 Chloride 98 Carbon Dioxide 27 Anion Gap 10 BUN 16 Creatinine 0.9 Creat Clearance w eGFR > 60 POC Glucometer Random Glucose 336 H* D Calcium 8.3 L Phosphorus Magnesium 2.4 Total Bilirubin 0.6 AST 35 ALT 115 H Alkaline Phosphatase 61 Creatine Kinase 278 Creatine Kinase Index 0.5 CK-MB (CK-2) 1.47 Troponin I 0.07 H D B-Natriuretic Peptide 245.97 Total Protein 6.5 Albumin 2.5 L Urine Color Urine Appearance Urine pH Ur Specific Lindsay Urine Protein Urine Glucose (UA) Urine Ketones Urine Blood Urine Nitrite Urine Bilirubin Urine Urobilinogen Ur Leukocyte Esterase Urine WBC (Auto) Urine RBC (Auto) Ur Epithelial Cells Urine Mucus 12/30/17 12/30/17 12/30/17 06:20 07:18 10:32 WBC RBC Hgb Hct MCV MCH MCHC RDW Plt Count MPV Absolute Neuts (auto) Total Counted Neutrophils % Neutrophils % (Manual) Band Neutrophils % Lymphocytes % Lymphocytes % (Manual) Monocytes % Monocytes % (Manual) Eosinophils % Basophils % Nucleated RBC % Differential Comment Platelet Estimate Platelet Comment Polychromasia Macrocytosis PT with INR INR Sodium 133 L Potassium 4.1 Chloride 96 L Carbon Dioxide 30 Anion Gap 7 L BUN 17 Creatinine 0.9 Creat Clearance w eGFR > 60 POC Glucometer 323.97235 > 400 Random Glucose 294 H Calcium 8.4 L Phosphorus 3.6 D Magnesium 2.4 Total Bilirubin 0.8 AST 33 ALT 111 H Alkaline Phosphatase 64 Creatine Kinase Creatine Kinase Index CK-MB (CK-2) Troponin I B-Natriuretic Peptide Total Protein 6.9 Albumin 2.6 L Urine Color Urine Appearance Urine pH Ur Specific Lindsay Urine Protein Urine Glucose (UA) Urine Ketones Urine Blood Urine Nitrite Urine Bilirubin Urine Urobilinogen Ur Leukocyte Esterase Urine WBC (Auto) Urine RBC (Auto) Ur Epithelial Cells Urine Mucus Active Medications Generic Name Dose Route Start Last Admin Trade Name Freq PRN Reason Stop Dose Admin Albuterol/Ipratropium 1 amp 12/30/17 08:00 12/30/17 11:59 Duoneb - NEB 1 amp RQID [facility] Administration Amlodipine Besylate 10 mg 12/30/17 10:00 12/30/17 09:16 Norvasc - PO 10 mg DAILY [facility] Administration Aspirin 81 mg 12/30/17 10:00 12/30/17 09:15 Asa - PO 81 mg DAILY [facility] Administration Atorvastatin Calcium 40 mg 12/30/17 22:00 Lipitor - PO HS [facility] Cefuroxime Axetil 500 mg 12/30/17 10:00 12/30/17 09:15 Ceftin - PO 12/30/17 22:01 500 mg BID [facility] Administration Clotrimazole 1 applic 12/30/17 10:00 12/30/17 11:59 Lotrimin 1% Cream - TP 1 applic BID [facility] Administration Diltiazem HCl 120 mg 12/30/17 10:00 12/30/17 09:15 Cardizem Cd - PO 120 mg DAILY [facility] Administration Ergocalciferol 50,000 unit 12/30/17 02:45 12/30/17 03:44 Drisdol - PO 50,000 unit Fr [facility] Administration Escitalopram Oxalate 10 mg 12/30/17 10:00 12/30/17 09:15 Lexapro - PO 10 mg DAILY [facility] Administration Furosemide 40 mg 12/30/17 10:00 12/30/17 09:15 Lasix - PO 40 mg DAILY [facility] Administration Gabapentin 300 mg 12/30/17 06:00 12/30/17 07:20 Neurontin - PO 300 mg TID [facility] Administration Heparin Sodium (Porcine) 5,000 unit 12/30/17 14:00 Heparin - SQ TID [facility] Insulin Aspart 1 vial 12/30/17 07:00 12/30/17 10:37 Novolog Vial Sliding Scale - SQ 12 unit ACHS [facility] Administration Protocol Insulin Detemir 15 units 12/30/17 10:15 12/30/17 10:37 Levemir Vial SQ 15 unit BID@0700,2200 [facility] Administration Lidocaine HCl 1 applic 12/30/17 06:00 12/30/17 08:31 Xylocaine 5% Top. Ointment TP Not Given TID [facility] Lisinopril 30 mg 12/30/17 10:00 12/30/17 09:16 Prinivil PO 30 mg DAILY [facility] Administration Non-Formulary Medication 205.5 mcg 12/30/17 10:00 Azelastine Hcl [Azelastine Hcl] NS BID [facility] Nystatin 500,000 units 12/30/17 12:00 12/30/17 11:59 Nystatin Oral Suspension - PO 500,000 units Q6HPO [facility] Administration Prednisone 0 mg 12/31/17 10:00 Deltasone - PO 01/05/18 09:59 DAILY [facility] Taper Silver Sulfadiazine 1 applic 12/30/17 10:00 12/30/17 11:59 Silvadene - TP 1 applic DAILY [facility] Administration ASSESSMENT/PLAN: 77 y/o M w/ PMHx CVA w/ residual R-sided deficits, chronic dysphagia w/ prior trach, COPD on home O2, diastolic CHF, T2DM, HTN, HLD. Brought to ED by home care giver evening of 12/29/17 after being discharged on 12/27/17 following hospitalization for UTI and COPD exacerbation, now seeking more robust nursing support for chronic disabilities. No acute complaints, no change in status. #h/o stroke and chronic disability -requires 24 hour nursing care -had refused SNF on previous hospitalization -now amenable to SNF -has full capacity -awaiting placement -home Lexapro 10 daily, gabapentin 300 TID, ASA 81, lipitor 40 #UTI -resolved -completed final prescribed dose of Ceftin today #COPD -had been discharged on steroid taper, given IV steroids in ED -restarted on taper protocol: prednisone 30 tomorrow, then 20 x 2 days, then 10 x 2 days -c/w regimen from prior discharge #DM -home regimen held and on temporary coverage as per endocrinology recommendations from prior hospitalization (see prior discharge summary) -Levemir 15 BID -Novolog 5 TID -SSI -BGM ACHS #CHF - prior echo: 60% EF, normal LV, trace MR, trace TR, moderate - home meds: lasix 40, lisinopril 30, norvasc 10, dilt 120 daily #dysphagia -dyphagia chopped diet w/ nectar liquid as per prior S/S reccs #Decubitis Ulcers - improving - silver sulfadiazine #genital rash - clotrimazole #oral thrush - on steroids - nystatin swish/swallow #FEN -no IVF -monitoring lytes and glucose -chopped diet w/ nectar liquid #PPX -DVT: heparin subq -GI: pericolace #HCP/contact -daughter Ama [phone] -health aide Marychuy [phone] #Dispo: -obs -awaiting SNF placement Visit type - Emergency Visit Emergency Visit: No - New Patient This patient is new to me today: No - Critical Care Critical Care patient: No
[2017-12-30] MEDS: HEPARIN NA (PORCINE) 5,000 UNITS/ML 1ML VIAL SQ SCH ×2 (13:43→22:29)
[2017-12-30] MEDS: INSULIN (NOVOLOG) ASPART 100 UNITS/ML 10ML VIAL SQ SCH (16:54)
[2017-12-30 19:32] LABS: ANION GAP 13 MMOL/L (8-16); BLOOD UREA NITROGEN 20 mg/dL (7-18); CALCIUM 8.7 mg/dL (8.5-10.1); CHLORIDE 96 mmol/L (98-107); CO2 26 mmol/L (21-32); CREATININE 1.1 mg/dL (0.7-1.3); POTASSIUM 4.5 mmol/L (3.5-5.1); SODIUM 135 mmol/L (136-145)
[2017-12-30 19:40] LABS: GLUCOSE,RANDOM 421 mg/dL (74-106)
[2017-12-30] MEDS: SENNOSIDES/DOCUSATE COMBO (SENNA PLUS) TABLET (UD) PO SCH (22:29)
[2017-12-30] MEDS: ATORVASTATIN CA 40 MG TABLET (FP) PO SCH (22:29)
[2017-12-30] MEDS: INSULIN (LEVEMIR) 100 UNITS/ML UNITS SQ SCH (22:30)
[2017-12-31] MEDS: NYSTATIN 500,000 UNITS/5 ML SUSPENSION PO SCH ×4 (00:05→17:28)
[2017-12-31] MEDS: HEPARIN NA (PORCINE) 5,000 UNITS/ML 1ML VIAL SQ SCH ×3 (06:02→21:47)
[2017-12-31] MEDS: GABAPENTIN 300 MG CAPSULE (FP) PO SCH ×3 (06:02→21:47)
[2017-12-31] MEDS: INSULIN SLIDING SCALE (NOVOLOG) 1 VIAL SQ SCH ×4 (06:04→21:47)
[2017-12-31] MEDS: LIDOCAINE HCL 5% TOP OINTMENT 50 GM TUBE TP SCH ×3 (06:05→21:50)
[2017-12-31] MEDS: INSULIN (NOVOLOG) ASPART 100 UNITS/ML 10ML VIAL SQ SCH ×3 (06:06→17:26)
[2017-12-31] MEDS: INSULIN (LEVEMIR) 100 UNITS/ML UNITS SQ SCH ×2 (06:32→21:47)
[2017-12-31] MEDS: ALBUTEROL SO4 2.5/IPRATROPIUM 0.5 INH SOL 3 ML VIAL.NEB. NEB SCH ×4 (07:20→21:15)
[2017-12-31 08:30] LABS: BASO % 0.6 % (0-2.0); EOS % 0.6 % (0-4.5); HEMATOCRIT 37.4 % (35.4-49); LYMPH % 30.8 % (8-40); MCHC 34.9 g/dl (32.0-35.9); MEAN CELL VOLUME 88.9 fl (80-96); MEAN PLT VOLUME 8.9 fl (7.5-11.1); MONO % 10.2 % (3.8-10.2); NEUT % 57.8 % (42.8-82.8); PLATELET COUNT 268 K/MM3 (134-434); RDW 15.2 % (11.9-15.9); WHITE BLOOD COUNT 12.3 K/mm3 (4.0-10.0)
[2017-12-31 08:41] LABS: ANION GAP 8 MMOL/L (8-16); BLOOD UREA NITROGEN 15 mg/dL (7-18); CHLORIDE 100 mmol/L (98-107); CO2 30 mmol/L (21-32); CREATININE 0.7 mg/dL (0.7-1.3); GLUCOSE,RANDOM 109 mg/dL (74-106); PHOSPHOROUS 2.9 mg/dL (2.5-4.9); SODIUM 138 mmol/L (136-145)
[2017-12-31 08:48] LABS: MAGNESIUM 2.3 mg/dL (1.8-2.4); POTASSIUM 4.9 mmol/L (3.5-5.1)
[2017-12-31] MEDS ORDERED: predniSONE 10 MG TABLET (UD) PO ONE (10:00)
[2017-12-31] MEDS ORDERED: predniSONE 10 MG TABLET (UD) PO SCH (10:00)
[2017-12-31] MEDS: ESCITALOPRAM OXALATE 10 MG TABLET (FP) PO SCH (11:12)
[2017-12-31] MEDS: ASPIRIN 81 MG CHEWABLE TABLETS PO SCH (11:13)
[2017-12-31] MEDS: FUROSEMIDE 40 MG TABLET (FP) PO SCH (11:13)
[2017-12-31] MEDS: amLODIPine BESYLATE 10 MG TABLET (FP) PO SCH (11:13)
[2017-12-31] MEDS: SILVER SULFADIAZINE 1% TOP CREAM 50 GM JAR TP SCH (11:16)
--- NOTE | 2017-12-31 11:16 | PN ---
Physical Exam: SUBJECTIVE: Patient seen and examined at bedside. No longer complaining of pain in right extremities. No other complaints. Has full capacity and is now amenable to SNF placement. OBJECTIVE: Vital Signs Period Temp Pulse Resp BP Sys/Pham Pulse Ox Last 24 Hr 97.4 F-98.8 F 58-81 19-24 97-140/54-60 98-100 GENERAL: A&Ox3, NAD HEAD: NC/AT EYES: PERRLA, EOMI, sclera anicteric HEENT: MMM, oral thrush NECK: Trachea midline, full range of motion, supple, no JVD LUNGS: tracheal breath sounds, coarse ronchi diffusely HEART: normal S1S2, RRR, no m/r/g ABDOMEN: softer vs. yesterday, distended, tympanitic, non-tender, reducible umbilical hernia EXTREMITIES: 2+ pulses, warm, well-perfused, 1+ pitting edema in b/l LE NEUROLOGICAL: -CN exam notable for significant right and mild left facial droop, dysarthria, otherwise intact -strength 4/5 in LUE and LLE, 0/5 in proximal RUE, 2/5 in distal RUE, 0/5 in proximal RLE, 1/5 in distal RLE -sensation grossly intact -could not evaluate FtN or HtS -could not elicit biceps or patellar reflexes -upgoing plantars b/l R>L SKIN: stage 2 decubitus ulcers on buttocks b/l improved vs prior discharge, genital rash with tinea appearance Laboratory Results - last 24 hr 12/30/17 12/30/17 12/30/17 07:18 10:32 16:35 WBC RBC Hgb Hct MCV MCH MCHC RDW Plt Count MPV Absolute Neuts (auto) Neutrophils % Lymphocytes % Monocytes % Eosinophils % Basophils % Nucleated RBC % Sodium Potassium Chloride Carbon Dioxide Anion Gap BUN Creatinine Creat Clearance w eGFR POC Glucometer 323.44199 > 400 412 Random Glucose Calcium Phosphorus Magnesium 12/30/17 12/30/17 12/30/17 18:00 20:54 21:05 WBC RBC Hgb Hct MCV MCH MCHC RDW Plt Count MPV Absolute Neuts (auto) Neutrophils % Lymphocytes % Monocytes % Eosinophils % Basophils % Nucleated RBC % Sodium 135 L Potassium 4.5 Chloride 96 L Carbon Dioxide 26 Anion Gap 13 BUN 20 H Creatinine 1.1 Creat Clearance w eGFR > 60 POC Glucometer 459 Random Glucose 421 H* D 395 H* Calcium 8.7 Phosphorus Magnesium 12/31/17 12/31/17 12/31/17 06:00 06:20 06:20 WBC 12.3 H RBC 4.20 Hgb 13.0 Hct 37.4 MCV 88.9 MCH 31.0 MCHC 34.9 RDW 15.2 Plt Count 268 MPV 8.9 Absolute Neuts (auto) 7.1 Neutrophils % 57.8 D Lymphocytes % 30.8 D Monocytes % 10.2 D Eosinophils % 0.6 D Basophils % 0.6 Nucleated RBC % 0 Sodium 138 Potassium 4.9 Chloride 100 Carbon Dioxide 30 Anion Gap 8 BUN 15 Creatinine 0.7 Creat Clearance w eGFR > 60 POC Glucometer 154 Random Glucose 109 H D Calcium 8.0 L Phosphorus 2.9 Magnesium 2.3 Active Medications Generic Name Dose Route Start Last Admin Trade Name Freq PRN Reason Stop Dose Admin Albuterol/Ipratropium 1 amp 12/30/17 08:00 12/31/17 07:20 Duoneb - NEB 1 amp RQID [facility] Administration Amlodipine Besylate 10 mg 12/30/17 10:00 12/30/17 09:16 Norvasc - PO 10 mg DAILY [facility] Administration Aspirin 81 mg 12/30/17 10:00 12/30/17 09:15 Asa - PO 81 mg DAILY [facility] Administration Atorvastatin Calcium 40 mg 12/30/17 22:00 12/30/17 22:29 Lipitor - PO 40 mg HS [facility] Administration Clotrimazole 1 applic 12/30/17 10:00 12/30/17 22:30 Lotrimin 1% Cream - TP 1 applic BID [facility] Administration Diltiazem HCl 120 mg 12/30/17 10:00 12/30/17 09:15 Cardizem Cd - PO 120 mg DAILY [facility] Administration Ergocalciferol 50,000 unit 12/30/17 02:45 12/30/17 03:44 Drisdol - PO 50,000 unit Fr [facility] Administration Escitalopram Oxalate 10 mg 12/30/17 10:00 12/30/17 09:15 Lexapro - PO 10 mg DAILY [facility] Administration Furosemide 40 mg 12/30/17 10:00 12/30/17 09:15 Lasix - PO 40 mg DAILY [facility] Administration Gabapentin 300 mg 12/30/17 06:00 12/31/17 06:02 Neurontin - PO 300 mg TID [facility] Administration Heparin Sodium (Porcine) 5,000 unit 12/30/17 14:00 12/31/17 06:02 Heparin - SQ 5,000 unit TID [facility] Administration Insulin Aspart 1 vial 12/30/17 07:00 12/31/17 06:04 Novolog Vial Sliding Scale - SQ 2 unit ACHS [facility] Administration Protocol Insulin Aspart 5 units 12/30/17 16:30 12/31/17 06:06 Novolog Vial SQ 5 units TIDAC [facility] Administration Protocol Insulin Detemir 20 units 12/30/17 16:51 12/31/17 06:32 Levemir Vial SQ 20 units BID@0700,2200 [facility] Administration Lidocaine HCl 1 applic 12/30/17 06:00 12/31/17 06:05 Xylocaine 5% Top. Ointment TP 1 applic TID [facility] Administration Lisinopril 30 mg 12/30/17 10:00 12/30/17 09:16 Prinivil PO 30 mg DAILY [facility] Administration Non-Formulary Medication 205.5 mcg 12/30/17 10:00 Azelastine Hcl [Azelastine Hcl] NS BID [facility] Nystatin 500,000 units 12/30/17 12:00 12/31/17 06:02 Nystatin Oral Suspension - PO 500,000 units Q6HPO [facility] Administration Prednisone 20 mg 01/01/18 10:00 Deltasone - PO 01/01/18 10:01 ONCE ONE Prednisone 20 mg 01/02/18 10:00 Deltasone - PO 01/02/18 10:01 ONCE ONE Prednisone 10 mg 01/03/18 10:00 Deltasone - PO 01/03/18 10:01 ONCE ONE Prednisone 10 mg 01/04/18 10:00 Deltasone - PO 01/04/18 10:01 ONCE ONE Senna/Docusate Sodium 1 tablet 12/30/17 22:00 12/30/17 22:29 Pericolace - PO 1 tablet HS [facility] Administration Silver Sulfadiazine 1 applic 12/30/17 10:00 12/30/17 11:59 Silvadene - TP 1 applic DAILY [facility] Administration ASSESSMENT/PLAN: 77 y/o M w/ PMHx CVA w/ residual R-sided deficits, chronic dysphagia w/ prior trach, COPD on home O2, diastolic CHF, T2DM, HTN, HLD. Brought to ED by home designer evening of 12/29/17 after being discharged on 12/27/17 following hospitalization for UTI and COPD exacerbation, now seeking more robust nursing support for chronic disabilities. No acute complaints, no change in status. #h/o stroke and chronic disability -requires 24 hour nursing care -had refused SNF on previous hospitalization -now amenable to SNF -has full capacity -awaiting placement -home Lexapro 10 daily, gabapentin 300 TID, ASA 81, lipitor 40 #UTI -resolved -completed final prescribed dose of Ceftin today #COPD -had been discharged on steroid taper, given IV steroids in ED -restarted on taper protocol: prednisone 30 today, then 20 x 2 days, then 10 x 2 days -c/w regimen from prior discharge #DM -home regimen held and on temporary coverage as per endocrinology recommendations from prior hospitalization (see prior discharge summary) -sugars significantly improved this AM, will watch closely and may hold HS insulin -Levemir 20 BID -Novolog 5 TID -SSI -BGM ACHS #CHF - prior echo: 60% EF, normal LV, trace MR, trace TR, moderate - home meds: lasix 40, lisinopril 30, norvasc 10, dilt 120 daily #dysphagia -dyphagia chopped diet w/ nectar liquid as per prior S/S reccs #Decubitis Ulcers - improving - silver sulfadiazine #genital rash - clotrimazole #oral thrush - on steroids - nystatin swish/swallow #FEN -no IVF -monitoring lytes and glucose -chopped diet w/ nectar liquid #PPX -DVT: heparin subq -GI: pericolace #HCP/contact -daughter Ama [phone] -health aide Mary[facility]uy [phone] #Dispo: -obs -awaiting SNF placement Visit type - Emergency Visit Emergency Visit: No - New Patient This patient is new to me today: No - Critical Care Critical Care patient: No
[2017-12-31] MEDS: CLOTRIMAZOLE 1% CREAM 15 GM TUBE TP SCH ×2 (11:18→21:51)
[2017-12-31] MEDS: LISINOPRIL 10 MG TABLET (FP) PO SCH (11:22)
--- NOTE | 2017-12-31 12:35 | PN ---
Teaching Attending Note Name of Resident: Roman Goins ATTENDING PHYSICIAN STATEMENT I saw and evaluated the patient. I reviewed the resident's note and discussed the case with the resident. I agree with the resident's findings and plan as documented. SUBJECTIVE: no pain, no OSB , feels at base line. no events over night. OBJECTIVES: NAd, awake, alert. mild L lower facial droop. CV: RRR, No JVD Lungs: upper airway noises and gargling, good air entry , rales Abd: less distended and softer today . Nl BS. reducible umbilical hernia Ext: trace edema on R leg Neuro :remains with R sided weakness ASSESSMENT AND PLAN: 77 y/o man with h/o COPD on O 2, DM, HTn, HLP, h/o Trach , stroke with R sided residual weakness, ascending aortic aneurysm and dysphagea , and recent hospitalization for UTI and COPD exacerbation who was sent form home due to R sided pain 1- R sided pain. tylenol if needed. 2- H/o COPD: recent treatment last admission cont steroid taper nad Nebs/ inhalers 3- Leukcytosis: likely due to steroids use. No indication of infection. 4- Recent UTI: last day of ceftin today 5- h/o Diastolic heart failure: no exacerbation. cont home meds 6- DM: cont with levemir 20 bID, novolog 5 TId and SSI . might need to dc HS coverage tonight 7- DVT pX dispo : pending auth for placement
[2017-12-31] MEDS: SENNOSIDES/DOCUSATE COMBO (SENNA PLUS) TABLET (UD) PO SCH (21:46)
[2017-12-31] MEDS: ATORVASTATIN CA 40 MG TABLET (FP) PO SCH (21:47)
[2018-01-01] MEDS: NYSTATIN 500,000 UNITS/5 ML SUSPENSION PO SCH ×5 (00:15→23:40)
[2018-01-01] MEDS: HEPARIN NA (PORCINE) 5,000 UNITS/ML 1ML VIAL SQ SCH ×3 (06:21→21:16)
[2018-01-01] MEDS: GABAPENTIN 300 MG CAPSULE (FP) PO SCH ×3 (06:21→21:16)
[2018-01-01] MEDS: INSULIN (LEVEMIR) 100 UNITS/ML UNITS SQ SCH ×2 (06:21→21:15)
[2018-01-01] MEDS: INSULIN (NOVOLOG) ASPART 100 UNITS/ML 10ML VIAL SQ SCH ×3 (06:22→16:46)
[2018-01-01] MEDS: INSULIN SLIDING SCALE (NOVOLOG) 1 VIAL SQ SCH ×4 (06:22→21:15)
[2018-01-01] MEDS: LIDOCAINE HCL 5% TOP OINTMENT 50 GM TUBE TP SCH ×3 (06:23→21:16)
[2018-01-01] MEDS: ALBUTEROL SO4 2.5/IPRATROPIUM 0.5 INH SOL 3 ML VIAL.NEB. NEB SCH ×4 (07:20→20:06)
[2018-01-01 07:49] LABS: BASO % 0.4 % (0-2.0); EOS % 0.6 % (0-4.5); HEMATOCRIT 37.4 % (35.4-49); HEMOGLOBIN 12.8 GM/dL (11.7-16.9); LYMPH % 28.7 % (8-40); MCH 30.7 pg (25.7-33.7); MCHC 34.1 g/dl (32.0-35.9); MEAN PLT VOLUME 9.1 fl (7.5-11.1); MONO % 10.1 % (3.8-10.2); NEUT % 60.2 % (42.8-82.8); PLATELET COUNT 271 K/MM3 (134-434); RBC 4.16 M/mm3 (4.00-5.60); RDW 15.3 % (11.9-15.9); WHITE BLOOD COUNT 11.4 K/mm3 (4.0-10.0)
[2018-01-01 08:53] LABS: ANION GAP 10 MMOL/L (8-16); BLOOD UREA NITROGEN 13 mg/dL (7-18); CALCIUM 8.3 mg/dL (8.5-10.1); CHLORIDE 99 mmol/L (98-107); CO2 30 mmol/L (21-32); CREATININE 0.6 mg/dL (0.7-1.3); GLUCOSE,RANDOM 196 mg/dL (74-106); POTASSIUM 3.7 mmol/L (3.5-5.1); SODIUM 139 mmol/L (136-145)
[2018-01-01] MEDS: amLODIPine BESYLATE 10 MG TABLET (FP) PO SCH (09:46)
[2018-01-01] MEDS: FUROSEMIDE 40 MG TABLET (FP) PO SCH (09:46)
[2018-01-01] MEDS: ASPIRIN 81 MG CHEWABLE TABLETS PO SCH (09:47)
[2018-01-01] MEDS: ESCITALOPRAM OXALATE 10 MG TABLET (FP) PO SCH (09:47)
[2018-01-01] MEDS: LISINOPRIL 10 MG TABLET (FP) PO SCH (09:47)
[2018-01-01] MEDS ORDERED: predniSONE 20 MG TABLET (UD) PO ONE (10:00)
[2018-01-01] MEDS: SILVER SULFADIAZINE 1% TOP CREAM 50 GM JAR TP SCH (10:03)
[2018-01-01] MEDS: CLOTRIMAZOLE 1% CREAM 15 GM TUBE TP SCH ×2 (10:03→21:16)
--- NOTE | 2018-01-01 16:15 | PN ---
Progress Note (short form) - Note Progress Note: Subjective: No fever or chills. has no abd pain, no SOB. per aid, no chocking when he eats Objective: Vital Signs: Last Vital Signs Temp Pulse Resp BP Pulse Ox 98.4 F 74 20 100/67 98 01/01/18 15:10 01/01/18 15:10 01/01/18 15:10 01/01/18 15:10 01/01/18 02:00 Laboratory Results - last 24 hr 12/31/17 12/31/17 01/01/18 17:25 21:45 06:19 WBC RBC Hgb Hct MCV MCH MCHC RDW Plt Count MPV Absolute Neuts (auto) Neutrophils % Lymphocytes % Monocytes % Eosinophils % Basophils % Nucleated RBC % Sodium Potassium Chloride Carbon Dioxide Anion Gap BUN Creatinine Creat Clearance w eGFR POC Glucometer 330 383 177 Random Glucose Calcium 01/01/18 01/01/18 01/01/18 06:45 06:45 11:23 WBC 11.4 H RBC 4.16 Hgb 12.8 Hct 37.4 MCV 90.0 MCH 30.7 MCHC 34.1 RDW 15.3 Plt Count 271 MPV 9.1 Absolute Neuts (auto) 6.9 Neutrophils % 60.2 Lymphocytes % 28.7 Monocytes % 10.1 Eosinophils % 0.6 Basophils % 0.4 Nucleated RBC % 0 Sodium 139 Potassium 3.7 D Chloride 99 Carbon Dioxide 30 Anion Gap 10 BUN 13 Creatinine 0.6 L Creat Clearance w eGFR > 60 POC Glucometer 293 Random Glucose 196 H D Calcium 8.3 L Physical Exam: NAd, awake, alert. mild L lower facial droop. CV: RRR, No JVD Lungs: upper airway noises and gargling, good air entry , clear lungs Abd: distended. Nl BS. reducible umbilical hernia Ext: trace edema on R leg mucusy stool in his diaper ASSESSMENT AND PLAN: 77 y/o man with h/o COPD on O 2, DM, HTn, HLP, h/o Trach , stroke with R sided residual weakness, ascending aortic aneurysm and dysphagea , and recent hospitalization for UTI and COPD exacerbation who was sent form home due to R sided pain 1- R sided pain. tylenol if needed. 2- H/o COPD:cont steroid taper and nebs/inhalers 3- Leukcytosis: likely due to steroids use. sned c diff and stool cx 4- Recent UTI: finished a course of Abx 5- h/o Diastolic heart failure: no exacerbation. cont home meds 6- DM: cont with levemir 20 BID, novolog 5 TId and SSI 7- Abd distention . worse today . mucus in diaper. c diff and KUB DVT pX Dispo: pending auth for placement Visit type - Emergency Visit Emergency Visit: Yes ED Registration Date: 12/30/17 Care time: The patient presented to the Emergency Department on the above date and was hospitalized for further evaluation of their emergent condition. - New Patient This patient is new to me today: No - Critical Care Critical Care patient: No
[2018-01-01] MEDS ORDERED: INSULIN (NOVOLOG) ASPART 100 UNITS/ML 10ML VIAL ONE (21:02)
[2018-01-01] MEDS: ATORVASTATIN CA 40 MG TABLET (FP) PO SCH (21:16)
[2018-01-01] MEDS: SENNOSIDES/DOCUSATE COMBO (SENNA PLUS) TABLET (UD) PO SCH (21:17)
[2018-01-02] MEDS: NYSTATIN 500,000 UNITS/5 ML SUSPENSION PO SCH ×3 (06:26→18:41)
[2018-01-02] MEDS: HEPARIN NA (PORCINE) 5,000 UNITS/ML 1ML VIAL SQ SCH ×3 (06:27→22:08)
[2018-01-02] MEDS: INSULIN (NOVOLOG) ASPART 100 UNITS/ML 10ML VIAL SQ SCH ×3 (06:27→17:20)
[2018-01-02] MEDS: INSULIN (LEVEMIR) 100 UNITS/ML UNITS SQ SCH ×2 (06:27→22:07)
[2018-01-02] MEDS: GABAPENTIN 300 MG CAPSULE (FP) PO SCH ×3 (06:27→22:07)
[2018-01-02] MEDS: LIDOCAINE HCL 5% TOP OINTMENT 50 GM TUBE TP SCH ×3 (06:28→22:07)
[2018-01-02] MEDS: INSULIN SLIDING SCALE (NOVOLOG) 1 VIAL SQ SCH ×4 (06:28→22:07)
[2018-01-02] MEDS: ALBUTEROL SO4 2.5/IPRATROPIUM 0.5 INH SOL 3 ML VIAL.NEB. NEB SCH ×4 (07:30→21:22)
[2018-01-02 08:37] LABS: BASO % 0.7 % (0-2.0); EOS % 0.9 % (0-4.5); HEMATOCRIT 36.5 % (35.4-49); HEMOGLOBIN 12.6 GM/dL (11.7-16.9); LYMPH % 33.8 % (8-40); MCH 31.2 pg (25.7-33.7); MCHC 34.4 g/dl (32.0-35.9); MEAN CELL VOLUME 90.6 fl (80-96); MEAN PLT VOLUME 9.1 fl (7.5-11.1); MONO % 9.8 % (3.8-10.2); NEUT % 54.8 % (42.8-82.8); PLATELET COUNT 260 K/MM3 (134-434); RBC 4.03 M/mm3 (4.00-5.60); RDW 15.5 % (11.9-15.9)
[2018-01-02] MEDS ORDERED: predniSONE 20 MG TABLET (UD) PO ONE (10:00)
[2018-01-02] MEDS ORDERED: PT OWN MED DRAWER 7, Y5N ONE (10:19)
[2018-01-02] MEDS: amLODIPine BESYLATE 10 MG TABLET (FP) PO SCH (10:22)
[2018-01-02] MEDS: LISINOPRIL 10 MG TABLET (FP) PO SCH (10:22)
[2018-01-02] MEDS: ESCITALOPRAM OXALATE 10 MG TABLET (FP) PO SCH (10:25)
[2018-01-02] MEDS: ASPIRIN 81 MG CHEWABLE TABLETS PO SCH (10:25)
[2018-01-02] MEDS: FUROSEMIDE 40 MG TABLET (FP) PO SCH (10:25)
[2018-01-02] MEDS: SILVER SULFADIAZINE 1% TOP CREAM 50 GM JAR TP SCH (10:26)
[2018-01-02] MEDS: CLOTRIMAZOLE 1% CREAM 15 GM TUBE TP SCH ×2 (10:27→22:08)
[2018-01-02 12:00] LABS: ANION GAP 8 MMOL/L (8-16); BLOOD UREA NITROGEN 10 mg/dL (7-18); CALCIUM 8.1 mg/dL (8.5-10.1); CHLORIDE 100 mmol/L (98-107); CO2 33 mmol/L (21-32); CREATININE 0.6 mg/dL (0.7-1.3); GLUCOSE,RANDOM 149 mg/dL (74-106); POTASSIUM 3.6 mmol/L (3.5-5.1); SODIUM 141 mmol/L (136-145)
--- NOTE | 2018-01-02 14:06 | PN ---
Teaching Attending Note Name of Resident: Roman Goins ATTENDING PHYSICIAN STATEMENT I saw and evaluated the patient. I reviewed the resident's note and discussed the case with the resident. I agree with the resident's findings and plan as documented. SUBJECTIVE: No fever or chills . No abd pain. no diarrhea. one BM yesterday . No SOB or cough . OBJECTIVE: NAd, awake, alert. mild L lower facial droop. CV: RRR, No JVD Lungs: upper airway noises , good air entry, clear lungs Abd: distended. tympanic , Nl BS. reducible umbilical hernia . NT Ext: trace edema on R leg ASSESSMENT AND PLAN: 77 y/o man with h/o COPD on O 2, DM, HTn, HLP, h/o Trach , stroke with R sided residual weakness, ascending aortic aneurysm and dysphagea , and recent hospitalization for UTI and COPD exacerbation who was sent form home due to R sided pain 1- H/o COPD:cont steroid taper ( last dose tomorrow ) and nebs/inhalers 2- Leukcytosis: likely due to steroids use.. c diff neg 3- Recent UTI: finished a course of Abx 4- h/o Diastolic heart failure: no exacerbation. cont home meds 5- DM: cont with levemir 20 BID, novolog 5 TId and SSI. might need to decrease levemir to 15 bid when steroids are finished 6- Abd distention . KUb with distended colon. report pending . last admisison w/ u was done and CT showed distention. GI eval inidcated at[place] and no further w/ u but laxatives DVT pX Dispo: dc to rehab pending a bed
--- NOTE | 2018-01-02 14:37 | PN ---
Physical Exam: SUBJECTIVE: Patient seen and examined at bedside. No complaints. 1 mucous- filled BM yesterday. Has full capacity, amenable to SNF placement. OBJECTIVE: Vital Signs Period Temp Pulse Resp BP Sys/Pham Pulse Ox Last 24 Hr 97.8 F-98.8 F 68-88 18-20 100-137/65-82 98 GENERAL: A&Ox3, NAD HEAD: NC/AT EYES: PERRLA, EOMI, sclera anicteric HEENT: MMM, oral thrush NECK: Trachea midline, full range of motion, supple, no JVD LUNGS: tracheal breath sounds, coarse ronchi diffusely HEART: normal S1S2, RRR, no m/r/g ABDOMEN: increased distention, bowel sounds not appreciated, tympanitic, non- tender, reducible umbilical hernia EXTREMITIES: 2+ pulses, warm, well-perfused, 1+ pitting edema in b/l LE NEUROLOGICAL: -CN exam notable for significant right and mild left facial droop, dysarthria, otherwise intact -strength 4/5 in LUE and LLE, 0/5 in proximal RUE, 2/5 in distal RUE, 0/5 in proximal RLE, 1/5 in distal RLE -sensation grossly intact -could not evaluate FtN or HtS -could not elicit biceps or patellar reflexes -upgoing plantars b/l R>L SKIN: stage 2 decubitus ulcers on buttocks b/l improved vs prior discharge, genital rash with tinea appearance Laboratory Results - last 24 hr 01/01/18 01/01/18 01/02/18 16:46 21:15 06:25 WBC RBC Hgb Hct MCV MCH MCHC RDW Plt Count MPV Absolute Neuts (auto) Neutrophils % Lymphocytes % Monocytes % Eosinophils % Basophils % Nucleated RBC % Sodium Potassium Chloride Carbon Dioxide Anion Gap BUN Creatinine Creat Clearance w eGFR POC Glucometer 301 363 139 Random Glucose Calcium 01/02/18 01/02/18 01/02/18 07:00 07:19 11:10 WBC 10.0 RBC 4.03 Hgb 12.6 Hct 36.5 MCV 90.6 MCH 31.2 MCHC 34.4 RDW 15.5 Plt Count 260 MPV 9.1 Absolute Neuts (auto) 5.5 Neutrophils % 54.8 Lymphocytes % 33.8 Monocytes % 9.8 Eosinophils % 0.9 Basophils % 0.7 Nucleated RBC % 0 Sodium 141 Potassium 3.6 Chloride 100 Carbon Dioxide 33 H Anion Gap 8 BUN 10 Creatinine 0.6 L Creat Clearance w eGFR > 60 POC Glucometer 373 Random Glucose 149 H D Calcium 8.1 L Active Medications Generic Name Dose Route Start Last Admin Trade Name Brayan PRN Reason Stop Dose Admin Albuterol/Ipratropium 1 amp 12/30/17 08:00 01/02/18 11:20 Duoneb - NEB 1 amp RQID FLORIN Administration Amlodipine Besylate 10 mg 12/30/17 10:00 01/02/18 10:22 Norvasc - PO 10 mg DAILY FLORIN Administration Aspirin 81 mg 12/30/17 10:00 01/02/18 10:25 Asa - PO 81 mg DAILY FLORIN Administration Atorvastatin Calcium 40 mg 12/30/17 22:00 01/01/18 21:16 Lipitor - PO 40 mg HS FLORIN Administration Clotrimazole 1 applic 12/30/17 10:00 01/02/18 10:27 Lotrimin 1% Cream - TP 1 applic BID FLORIN Administration Diltiazem HCl 120 mg 12/30/17 10:00 01/02/18 10:25 Cardizem Cd - PO 120 mg DAILY FLORIN Administration Ergocalciferol 50,000 unit 12/30/17 02:45 12/30/17 03:44 Drisdol - PO 50,000 unit Fr FLORIN Administration Escitalopram Oxalate 10 mg 12/30/17 10:00 01/02/18 10:25 Lexapro - PO 10 mg DAILY FLORIN Administration Furosemide 40 mg 12/30/17 10:00 01/02/18 10:25 Lasix - PO 40 mg DAILY FLORIN Administration Gabapentin 300 mg 12/30/17 06:00 01/02/18 06:27 Neurontin - PO 300 mg TID FLORIN Administration Heparin Sodium (Porcine) 5,000 unit 12/30/17 14:00 01/02/18 06:27 Heparin - SQ 5,000 unit TID FLORIN Administration Insulin Aspart 1 vial 12/30/17 07:00 01/02/18 11:42 Novolog Vial Sliding Scale - SQ 10 unit ACHS FLORIN Administration Protocol Insulin Aspart 5 units 12/30/17 16:30 01/02/18 11:41 Novolog Vial SQ 5 units TIDAC FLORIN Administration Protocol Insulin Detemir 20 units 12/30/17 16:51 09/10/18 06:27 Levemir Vial SQ 20 units BID@0700,2200 [facility]IN Administration Lidocaine HCl 1 applic 12/30/17 06:00 01/02/18 06:28 Xylocaine 5% Top. Ointment TP 1 applic TID FLORIN Administration Lisinopril 30 mg 12/30/17 10:00 01/02/18 10:22 Prinivil PO 30 mg DAILY FLORIN Administration Non-Formulary Medication 205.5 mcg 12/30/17 10:00 Azelastine Hcl [Azelastine Hcl] NS BID FLORIN Nystatin 500,000 units 12/30/17 12:00 01/02/18 12:57 Nystatin Oral Suspension - PO 500,000 units Q6HPO [facility]ORIN Administration Prednisone 10 mg 01/03/18 10:00 Deltasone - PO 01/03/18 10:01 ONCE ONE Prednisone 10 mg 01/04/18 10:00 Deltasone - PO 01/04/18 10:01 ONCE ONE Senna/Docusate Sodium 1 tablet 12/30/17 22:00 01/01/18 21:17 Pericolace - PO 1 tablet HS FLORIN Administration Silver Sulfadiazine 1 applic 12/30/17 10:00 01/02/18 10:26 Silvadene - TP 1 applic DAILY FLORIN Administration ASSESSMENT/PLAN: 77 y/o M w/ PMHx CVA w/ residual R-sided deficits, chronic dysphagia w/ prior trach, COPD on home O2, diastolic CHF, T2DM, HTN, HLD. Brought to ED by home teaching grades 9 thru 12 teacher evening of 12/29/17 after being discharged on 12/27/17 following hospitalization for UTI and COPD exacerbation, now seeking more robust nursing support for chronic disabilities. No acute complaints, no change in status. #h/o stroke and chronic disability -requires 24 hour nursing care -had refused SNF on previous hospitalization -now amenable to SNF -has full capacity -awaiting placement -home Lexapro 10 daily, gabapentin 300 TID, ASA 81, lipitor 40 #UTI -resolved -completed final prescribed dose of Ceftin today #COPD -had been discharged on steroid taper, given IV steroids in ED -c/w steroid taper -otherwise, c/w regimen from prior discharge #DM -home regimen held and on temporary coverage as per endocrinology recommendations from prior hospitalization (see prior discharge summary) -sugars significantly improved this AM, will watch closely and may hold HS insulin -Levemir 20 BID -Novolog 5 TID -SSI -BGM ACHS #abd distension/mucous-filled BM -XR shows colonic distention, c/w prior hospitalization -C diff negative -stool Cx pending -adding Miralax daily #CHF - prior echo: 60% EF, normal LV, trace MR, trace TR, moderate - home meds: lasix 40, lisinopril 30, norvasc 10, dilt 120 daily #dysphagia -dysphagia chopped diet w/ nectar liquid as per prior S/S reccs #Decubitis Ulcers - improving - silver sulfadiazine #genital rash - clotrimazole #oral thrush - on steroids - nystatin swish/swallow #FEN -no IVF -monitoring lytes and glucose -chopped diet w/ nectar liquid #PPX -DVT: heparin subq -GI: pericolace #HCP/contact -daughter Ama [phone] -health aide [place] [phone] #Dispo: -med/surg -awaiting SNF placement Visit type - Emergency Visit Emergency Visit: No - New Patient This patient is new to me today: No - Critical Care Critical Care patient: No
[2018-01-02] MEDS: POLYETHYLENE GLYCOL 3350 119 GM BTL PO SCH (15:00)
[2018-01-02] MEDS: SENNOSIDES/DOCUSATE COMBO (SENNA PLUS) TABLET (UD) PO SCH (22:07)
[2018-01-02] MEDS: ATORVASTATIN CA 40 MG TABLET (FP) PO SCH (22:07)
[2018-01-03] MEDS: NYSTATIN 500,000 UNITS/5 ML SUSPENSION PO SCH ×4 (00:07→17:28)
[2018-01-03] MEDS: GABAPENTIN 300 MG CAPSULE (FP) PO SCH ×3 (06:22→22:21)
[2018-01-03] MEDS: HEPARIN NA (PORCINE) 5,000 UNITS/ML 1ML VIAL SQ SCH ×3 (06:22→22:21)
[2018-01-03] MEDS: INSULIN (LEVEMIR) 100 UNITS/ML UNITS SQ SCH ×2 (06:23→22:21)
[2018-01-03] MEDS: LIDOCAINE HCL 5% TOP OINTMENT 50 GM TUBE TP SCH ×3 (06:23→22:22)
[2018-01-03] MEDS: INSULIN SLIDING SCALE (NOVOLOG) 1 VIAL SQ SCH ×4 (06:27→22:22)
[2018-01-03] MEDS: INSULIN (NOVOLOG) ASPART 100 UNITS/ML 10ML VIAL SQ SCH ×3 (06:28→17:28)
[2018-01-03 08:25] LABS: BASO % 0.4 % (0-2.0); EOS % 0.7 % (0-4.5); HEMATOCRIT 37.2 % (35.4-49); HEMOGLOBIN 12.9 GM/dL (11.7-16.9); LYMPH % 31.7 % (8-40); MCH 31.4 pg (25.7-33.7); MCHC 34.7 g/dl (32.0-35.9); MEAN CELL VOLUME 90.5 fl (80-96); MEAN PLT VOLUME 9.4 fl (7.5-11.1); MONO % 11.1 % (3.8-10.2); NEUT % 56.1 % (42.8-82.8); PLATELET COUNT 271 K/MM3 (134-434); RBC 4.11 M/mm3 (4.00-5.60); RDW 15.6 % (11.9-15.9); WHITE BLOOD COUNT 9.4 K/mm3 (4.0-10.0)
[2018-01-03] MEDS: ALBUTEROL SO4 2.5/IPRATROPIUM 0.5 INH SOL 3 ML VIAL.NEB. NEB SCH ×4 (09:20→21:39)
[2018-01-03] MEDS: amLODIPine BESYLATE 10 MG TABLET (FP) PO SCH (09:48)
[2018-01-03] MEDS: LISINOPRIL 10 MG TABLET (FP) PO SCH (09:48)
[2018-01-03] MEDS: ASPIRIN 81 MG CHEWABLE TABLETS PO SCH (09:49)
[2018-01-03] MEDS: FUROSEMIDE 40 MG TABLET (FP) PO SCH (09:49)
[2018-01-03] MEDS: ESCITALOPRAM OXALATE 10 MG TABLET (FP) PO SCH (09:49)
[2018-01-03] MEDS: POLYETHYLENE GLYCOL 3350 119 GM BTL PO SCH (09:52)
[2018-01-03] MEDS: CLOTRIMAZOLE 1% CREAM 15 GM TUBE TP SCH ×2 (09:54→22:22)
[2018-01-03] MEDS: SILVER SULFADIAZINE 1% TOP CREAM 50 GM JAR TP SCH (09:56)
[2018-01-03] MEDS ORDERED: predniSONE 10 MG TABLET (UD) PO ONE (10:00)
[2018-01-03 12:52] LABS: CHLORIDE 100 mmol/L (98-107); POTASSIUM 3.5 mmol/L (3.5-5.1); SODIUM 140 mmol/L (136-145)
--- NOTE | 2018-01-03 12:55 | PN ---
Physical Exam: SUBJECTIVE: Patient seen and examined at bedside. No complaints. Has full capacity, amenable to SNF placement. OBJECTIVE: Vital Signs Period Temp Pulse Resp BP Sys/Pham Pulse Ox Last 24 Hr 98 F-98.7 F 65-80 18-20 103-145/52-74 97-98 GENERAL: A&Ox3, NAD HEAD: NC/AT EYES: PERRLA, EOMI, sclera anicteric HEENT: MMM, oral thrush NECK: Trachea midline, full range of motion, supple, no JVD LUNGS: tracheal breath sounds, coarse ronchi diffusely HEART: normal S1S2, RRR, no m/r/g ABDOMEN: increased distention, bowel sounds not appreciated, tympanitic, non- tender, reducible umbilical hernia EXTREMITIES: 2+ pulses, warm, well-perfused, 1+ pitting edema in b/l LE NEUROLOGICAL: -CN exam notable for significant right and mild left facial droop, dysarthria, otherwise intact -strength 4/5 in LUE and LLE, 0/5 in proximal RUE, 2/5 in distal RUE, 0/5 in proximal RLE, 1/5 in distal RLE -sensation grossly intact -could not evaluate FtN or HtS -could not elicit biceps or patellar reflexes -upgoing plantars b/l R>L Laboratory Results - last 24 hr 01/02/18 01/02/18 01/03/18 17:19 22:05 06:20 WBC 9.4 RBC 4.11 Hgb 12.9 Hct 37.2 MCV 90.5 MCH 31.4 MCHC 34.7 RDW 15.6 Plt Count 271 MPV 9.4 Absolute Neuts (auto) 5.3 Neutrophils % 56.1 Lymphocytes % 31.7 Monocytes % 11.1 H Eosinophils % 0.7 Basophils % 0.4 Nucleated RBC % 0 POC Glucometer 333 300 01/03/18 01/03/18 06:26 11:38 WBC RBC Hgb Hct MCV MCH MCHC RDW Plt Count MPV Absolute Neuts (auto) Neutrophils % Lymphocytes % Monocytes % Eosinophils % Basophils % Nucleated RBC % POC Glucometer 198 259 Active Medications Generic Name Dose Route Start Last Admin Trade Name Freq PRN Reason Stop Dose Admin Albuterol/Ipratropium 1 amp 12/30/17 08:00 01/03/18 09:20 Duoneb - NEB 1 amp RQID FLORIN Administration Amlodipine Besylate 10 mg 12/30/17 10:00 01/03/18 09:48 Norvasc - PO 10 mg DAILY FLORIN Administration Aspirin 81 mg 12/30/17 10:00 01/03/18 09:49 Asa - PO 81 mg DAILY FLORIN Administration Atorvastatin Calcium 40 mg 12/30/17 22:00 01/02/18 22:07 Lipitor - PO 40 mg HS FLORIN Administration Clotrimazole 1 applic 12/30/17 10:00 01/03/18 09:54 Lotrimin 1% Cream - TP 1 applic BID FLORIN Administration Diltiazem HCl 120 mg 12/30/17 10:00 01/03/18 09:48 Cardizem Cd - PO 120 mg DAILY FLORIN Administration Ergocalciferol 50,000 unit 12/30/17 02:45 12/30/17 03:44 Drisdol - PO 50,000 unit Fr FLORIN Administration Escitalopram Oxalate 10 mg 12/30/17 10:00 01/03/18 09:49 Lexapro - PO 10 mg DAILY FLORIN Administration Furosemide 40 mg 12/30/17 10:00 01/03/18 09:49 Lasix - PO 40 mg DAILY FLORIN Administration Gabapentin 300 mg 12/30/17 06:00 01/03/18 06:22 Neurontin - PO 300 mg TID FLORIN Administration Heparin Sodium (Porcine) 5,000 unit 12/30/17 14:00 01/03/18 06:22 Heparin - SQ 5,000 unit TID FLORIN Administration Insulin Aspart 1 vial 12/30/17 07:00 01/03/18 12:04 Novolog Vial Sliding Scale - SQ 6 unit ACHS FLORIN Administration Protocol Insulin Aspart 5 units 12/30/17 16:30 01/03/18 11:53 Novolog Vial SQ 5 units TIDAC [facility] Administration Protocol Insulin Detemir 20 units 12/30/17 16:51 01/03/18 06:23 Levemir Vial SQ 20 units BID@0700,2200 FLORIN Administration Lidocaine HCl 1 applic 12/30/17 06:00 01/03/18 06:23 Xylocaine 5% Top. Ointment TP 1 applic TID FLORIN Administration Lisinopril 30 mg 12/30/17 10:00 01/03/18 09:48 Prinivil PO 30 mg DAILY FLORIN Administration Non-Formulary Medication 205.5 mcg 12/30/17 10:00 Azelastine Hcl [Azelastine Hcl] NS BID FLORIN Nystatin 500,000 units 12/30/17 12:00 01/03/18 12:05 Nystatin Oral Suspension - PO 500,000 units Q6HPO FLORIN Administration Polyethylene Glycol 17 gm 01/02/18 14:45 01/03/18 09:52 Miralax (For Daily Use) - PO 17 grams DAILY FLORIN Administration Prednisone 10 mg 01/04/18 10:00 Deltasone - PO 01/04/18 10:01 ONCE ONE Senna/Docusate Sodium 1 tablet 12/30/17 22:00 01/02/18 22:07 Pericolace - PO 1 tablet HS FLORIN Administration Silver Sulfadiazine 1 applic 12/30/17 10:00 01/03/18 09:56 Silvadene - TP 1 applic DAILY FLORIN Administration ASSESSMENT/PLAN: 77 y/o M w/ PMHx CVA w/ residual R-sided deficits, chronic dysphagia w/ prior trach, COPD on home O2, diastolic CHF, T2DM, HTN, HLD. Brought to ED by director home evening of 12/29/17 after being discharged on 12/27/17 following hospitalization for UTI and COPD exacerbation, now seeking more robust nursing support for chronic disabilities. No acute complaints, no change in status. #h/o stroke and chronic disability -requires 24 hour nursing care -had refused SNF on previous hospitalization -now amenable to SNF -has full capacity -awaiting placement -home Lexapro 10 daily, gabapentin 300 TID, ASA 81, lipitor 40 #COPD -had been discharged on steroid taper, given IV steroids in ED -completing steroid taper tomorrow -otherwise, c/w regimen from prior discharge #DM -home regimen held and on temporary coverage as per endocrinology recommendations from prior hospitalization (see prior discharge summary) -sugars significantly improved this AM, will watch closely and may hold HS insulin -Levemir 20 BID -Novolog 5 TID -SSI -BGM ACHS #abd distension/mucous-filled BM -XR shows colonic distention, c/w prior hospitalization -C diff negative -stool Cx pending -pericolace + Miralax #CHF - prior echo: 60% EF, normal LV, trace MR, trace TR, moderate - home meds: lasix 40, lisinopril 30, norvasc 10, dilt 120 daily #dysphagia -dysphagia chopped diet w/ nectar liquid as per prior S/S reccs #Decubitis Ulcers - silver sulfadiazine #genital rash - clotrimazole #oral thrush - on steroids - nystatin swish/swallow #FEN -no IVF -monitoring lytes and glucose -chopped diet w/ nectar liquid #PPX -DVT: heparin subq -GI: pericolace, Miralax #HCP/contact -daughter Ama [phone] -health aide [place] [phone] #Dispo: -med/surg -awaiting SNF placement Visit type - Emergency Visit Emergency Visit: No - New Patient This patient is new to me today: No - Critical Care Critical Care patient: No
[2018-01-03 12:56] LABS: ANION GAP 9 MMOL/L (8-16); BLOOD UREA NITROGEN 9 mg/dL (7-18); CALCIUM 8.5 mg/dL (8.5-10.1); CO2 31 mmol/L (21-32); CREATININE 0.6 mg/dL (0.7-1.3); GLUCOSE,RANDOM 178 mg/dL (74-106)
[2018-01-03] MEDS ORDERED: PT OWN MED DRAWER 7, Y5N ONE (15:25)
--- NOTE | 2018-01-03 16:09 | PN ---
Teaching Attending Note Name of Resident: Roman Goins ATTENDING PHYSICIAN STATEMENT I saw and evaluated the patient. I reviewed the resident's note and discussed the case with the resident. I agree with the resident's findings and plan as documented. SUBJECTIVE: No fever or chills. No abd pain. noSOB OBJECTIVE: NAd, awake, alert. mild L lower facial droop. CV: RRR, No JVD Lungs: upper airway noises , good air entry, clear lungs Abd: distended. tympanic , Nl BS. reducible umbilical hernia . NT Ext: trace edema on R leg ASSESSMENT AND PLAN: 77 y/o man with h/o COPD on O 2, DM, HTN, HLP, h/o Trach , stroke with R sided residual weakness, ascending aortic aneurysm and dysphagea , and recent hospitalization for UTI and COPD exacerbation who was sent form home due to R sided pain 1- H/o COPD:finishes steroid taper today 2- Leukcytosis: likely due to steroids use.resolved 3- Recent UTI: finished a course of Abx 4- h/o Diastolic heart failure: no exacerbation. cont home meds 5- DM: cont with levemir 20 BID, novolog 5 TId and SSI. might need to decrease levemir to 15 bid when steroids are finished 6- Abd distention .due to colonic atonia . chronic . no further w/u. cont laxatives DVT pX Dispo: dc to rehab pending a bed
[2018-01-03] MEDS ORDERED: INSULIN (NOVOLOG) ASPART 100 UNITS/ML 10ML VIAL ONE (17:39)
[2018-01-03] MEDS: ATORVASTATIN CA 40 MG TABLET (FP) PO SCH (22:21)
[2018-01-03] MEDS: SENNOSIDES/DOCUSATE COMBO (SENNA PLUS) TABLET (UD) PO SCH (22:21)
[2018-01-04] MEDS: NYSTATIN 500,000 UNITS/5 ML SUSPENSION PO SCH ×4 (00:12→17:24)
[2018-01-04] MEDS: HEPARIN NA (PORCINE) 5,000 UNITS/ML 1ML VIAL SQ SCH ×3 (05:57→21:44)
[2018-01-04] MEDS: GABAPENTIN 300 MG CAPSULE (FP) PO SCH ×3 (05:57→21:43)
[2018-01-04] MEDS: LIDOCAINE HCL 5% TOP OINTMENT 50 GM TUBE TP SCH ×3 (05:58→21:48)
[2018-01-04] MEDS: INSULIN (LEVEMIR) 100 UNITS/ML UNITS SQ SCH ×2 (06:02→21:44)
[2018-01-04] MEDS: INSULIN (NOVOLOG) ASPART 100 UNITS/ML 10ML VIAL SQ SCH ×3 (06:03→17:15)
[2018-01-04] MEDS: INSULIN SLIDING SCALE (NOVOLOG) 1 VIAL SQ SCH ×4 (06:03→21:47)
[2018-01-04 07:55] LABS: BASO % 1.4 % (0-2.0); EOS % 0.7 % (0-4.5); HEMATOCRIT 37.7 % (35.4-49); LYMPH % 38.2 % (8-40); MCHC 34.4 g/dl (32.0-35.9); MEAN CELL VOLUME 90.3 fl (80-96); MEAN PLT VOLUME 8.9 fl (7.5-11.1); MONO % 10.7 % (3.8-10.2); PLATELET COUNT 265 K/MM3 (134-434); RBC 4.17 M/mm3 (4.00-5.60); RDW 15.9 % (11.9-15.9); WHITE BLOOD COUNT 8.4 K/mm3 (4.0-10.0)
[2018-01-04] MEDS: ALBUTEROL SO4 2.5/IPRATROPIUM 0.5 INH SOL 3 ML VIAL.NEB. NEB SCH ×4 (07:55→20:28)
--- NOTE | 2018-01-04 08:33 | PN ---
Physical Exam: SUBJECTIVE: Patient seen and examined at bedside. No complaints. Has full capacity, amenable to SNF placement. OBJECTIVE: Vital Signs Period Temp Pulse Resp BP Sys/Pham Pulse Ox Last 24 Hr 98 F-99.1 F 59-80 18-20 105-138/49-72 96 GENERAL: A&Ox3, NAD HEAD: NC/AT EYES: PERRLA, EOMI, sclera anicteric HEENT: MMM NECK: Trachea midline, full range of motion, supple, no JVD LUNGS: tracheal breath sounds, coarse ronchi diffusely HEART: normal S1S2, RRR, no m/r/g ABDOMEN: increased distention, bowel sounds not appreciated, tympanitic, non- tender, reducible umbilical hernia EXTREMITIES: 2+ pulses, warm, well-perfused, 1+ pitting edema in b/l LE NEUROLOGICAL: -CN exam notable for significant right and mild left facial droop, dysarthria, otherwise intact -strength 4/5 in LUE and LLE, 0/5 in proximal RUE, 2/5 in distal RUE, 0/5 in proximal RLE, 1/5 in distal RLE -sensation grossly intact -could not evaluate FtN or HtS -could not elicit biceps or patellar reflexes -upgoing plantars b/l R>L Laboratory Results - last 24 hr 01/03/18 01/03/18 01/03/18 06:20 06:20 11:38 WBC 9.4 RBC 4.11 Hgb 12.9 Hct 37.2 MCV 90.5 MCH 31.4 MCHC 34.7 RDW 15.6 Plt Count 271 MPV 9.4 Absolute Neuts (auto) 5.3 Neutrophils % 56.1 Lymphocytes % 31.7 Monocytes % 11.1 H Eosinophils % 0.7 Basophils % 0.4 Nucleated RBC % 0 Sodium 140 Potassium 3.5 Chloride 100 Carbon Dioxide 31 Anion Gap 9 BUN 9 Creatinine 0.6 L Creat Clearance w eGFR > 60 POC Glucometer 259 Random Glucose 178 H Calcium 8.5 01/03/18 01/03/18 01/04/18 16:44 22:20 05:56 WBC RBC Hgb Hct MCV MCH MCHC RDW Plt Count MPV Absolute Neuts (auto) Neutrophils % Lymphocytes % Monocytes % Eosinophils % Basophils % Nucleated RBC % Sodium Potassium Chloride Carbon Dioxide Anion Gap BUN Creatinine Creat Clearance w eGFR POC Glucometer 230 233 117 Random Glucose Calcium 01/04/18 06:20 WBC 8.4 RBC 4.17 Hgb 13.0 Hct 37.7 MCV 90.3 MCH 31.0 MCHC 34.4 RDW 15.9 Plt Count 265 MPV 8.9 Absolute Neuts (auto) 4.1 Neutrophils % 49.0 Lymphocytes % 38.2 D Monocytes % 10.7 H Eosinophils % 0.7 Basophils % 1.4 D Nucleated RBC % 0 Sodium Potassium Chloride Carbon Dioxide Anion Gap BUN Creatinine Creat Clearance w eGFR POC Glucometer Random Glucose Calcium Active Medications Generic Name Dose Route Start Last Admin Trade Name Humbertoq PRN Reason Stop Dose Admin Albuterol/Ipratropium 1 amp 12/30/17 08:00 01/04/18 07:55 Duoneb - NEB 1 amp RQID FLORIN Administration Amlodipine Besylate 10 mg 12/30/17 10:00 01/03/18 09:48 Norvasc - PO 10 mg DAILY FLORIN Administration Aspirin 81 mg 12/30/17 10:00 01/03/18 09:49 Asa - PO 81 mg DAILY FLORIN Administration Atorvastatin Calcium 40 mg 12/30/17 22:00 01/03/18 22:21 Lipitor - PO 40 mg HS FLORIN Administration Clotrimazole 1 applic 12/30/17 10:00 01/03/18 22:22 Lotrimin 1% Cream - TP 1 applic BID FLORIN Administration Diltiazem HCl 120 mg 12/30/17 10:00 01/03/18 09:48 Cardizem Cd - PO 120 mg DAILY FLORIN Administration Ergocalciferol 50,000 unit 01/06/18 10:00 Drisdol - PO Fr@1000 FLORIN Escitalopram Oxalate 10 mg 12/30/17 10:00 01/03/18 09:49 Lexapro - PO 10 mg DAILY FLORIN Administration Furosemide 40 mg 12/30/17 10:00 01/03/18 09:49 Lasix - PO 40 mg DAILY FLORIN Administration Gabapentin 300 mg 12/30/17 06:00 01/04/18 05:57 Neurontin - PO 300 mg TID FLORIN Administration Heparin Sodium (Porcine) 5,000 unit 12/30/17 14:00 01/04/18 05:57 Heparin - SQ 5,000 unit TID FLORIN Administration Insulin Aspart 1 vial 12/30/17 07:00 01/04/18 06:03 Novolog Vial Sliding Scale - SQ Not Given ACHS [facility] Protocol Insulin Aspart 5 units 12/30/17 16:30 01/04/18 06:03 Novolog Vial SQ 5 units TIDAC [facility]ORIN Administration Protocol Insulin Detemir 20 units 12/30/17 16:51 01/04/18 06:02 Levemir Vial SQ 20 units BID@0700,2200 FLORIN Administration Lidocaine HCl 1 applic 12/30/17 06:00 01/04/18 05:58 Xylocaine 5% Top. Ointment TP 1 applic TID FLORIN Administration Lisinopril 30 mg 12/30/17 10:00 01/03/18 09:48 Prinivil PO 30 mg DAILY FLORIN Administration Nystatin 500,000 units 12/30/17 12:00 01/04/18 05:57 Nystatin Oral Suspension - PO 500,000 units Q6HPO FLORIN Administration Polyethylene Glycol 17 gm 01/02/18 14:45 01/03/18 09:52 Miralax (For Daily Use) - PO 17 grams DAILY FLORIN Administration Prednisone 10 mg 01/04/18 10:00 Deltasone - PO 01/04/18 10:01 ONCE ONE Senna/Docusate Sodium 1 tablet 12/30/17 22:00 01/03/18 22:21 Pericolace - PO 1 tablet HS FLORIN Administration Silver Sulfadiazine 1 applic 12/30/17 10:00 01/03/18 09:56 Silvadene - TP 1 applic DAILY FLORIN Administration ASSESSMENT/PLAN: 77 y/o M w/ PMHx CVA w/ residual R-sided deficits, chronic dysphagia w/ prior trach, COPD on home O2, diastolic CHF, T2DM, HTN, HLD. Brought to ED by manager in home evening of 12/29/17 after being discharged on 12/27/17 following hospitalization for UTI and COPD exacerbation, now seeking more robust nursing support for chronic disabilities. No acute complaints, no change in status. #h/o stroke and chronic disability -requires 24 hour nursing care -had refused SNF on previous hospitalization -now amenable to SNF -has full capacity -awaiting placement -home Lexapro 10 daily, gabapentin 300 TID, ASA 81, lipitor 40 #COPD -had been discharged on steroid taper, given IV steroids in ED -completes steroid taper today -otherwise, c/w regimen from prior discharge #DM -home regimen held and on temporary coverage as per endocrinology recommendations from prior hospitalization (see prior discharge summary) -sugars significantly improved this AM, will watch closely and may hold HS insulin -Levemir 20 BID -Novolog 5 TID -SSI -BGM ACHS #abd distension/mucous-filled BM -XR shows colonic distention, c/w prior hospitalization -C diff negative -stool Cx pending -pericolace + Miralax #CHF - prior echo: 60% EF, normal LV, trace MR, trace TR, moderate - home meds: lasix 40, lisinopril 30, norvasc 10, dilt 120 daily #dysphagia -dysphagia chopped diet w/ nectar liquid as per prior S/S reccs #Decubitis Ulcers - silver sulfadiazine #genital rash - clotrimazole #oral thrush - on steroids - nystatin swish/swallow #FEN -no IVF -monitoring lytes and glucose -chopped diet w/ nectar liquid #PPX -DVT: heparin subq -GI: pericolace, Miralax #HCP/contact -daughter Ama [phone] -health aide [place] [phone] #Dispo: -med/surg -awaiting SNF placement Visit type - Emergency Visit Emergency Visit: No - New Patient This patient is new to me today: No - Critical Care Critical Care patient: No
--- NOTE | 2018-01-04 08:53 | PN ---
Teaching Attending Note Name of Resident: Roman Goins ATTENDING PHYSICIAN STATEMENT I saw and evaluated the patient. I reviewed the resident's note and discussed the case with the resident. I agree with the resident's findings and plan as documented. SUBJECTIVE: No new changes , patient is comfortable OBJECTIVE: Vital Signs Temperature 99.1 F 01/04/18 05:45 Pulse Rate 59 L 01/04/18 05:45 Respiratory Rate 20 01/04/18 05:45 Blood Pressure 105/57 01/04/18 05:45 O2 Sat by Pulse Oximetry (%) 96 01/03/18 21:00 CBCD WBC 8.4 K/mm3 (4.0-10.0) 01/04/18 06:20 RBC 4.17 M/mm3 (4.00-5.60) 01/04/18 06:20 Hgb 13.0 GM/dL (11.7-16.9) 01/04/18 06:20 Hct 37.7 % (35.4-49) 01/04/18 06:20 MCV 90.3 fl (80-96) 01/04/18 06:20 MCHC 34.4 g/dl (32.0-35.9) 01/04/18 06:20 RDW 15.9 % (11.9-15.9) 01/04/18 06:20 Plt Count 265 K/MM3 (134-434) 01/04/18 06:20 MPV 8.9 fl (7.5-11.1) 01/04/18 06:20 CMP Sodium 140 mmol/L (136-145) 01/03/18 06:20 Potassium 3.5 mmol/L (3.5-5.1) 01/03/18 06:20 Chloride 100 mmol/L (98-107) 01/03/18 06:20 Carbon Dioxide 31 mmol/L (21-32) 01/03/18 06:20 Anion Gap 9 MMOL/L (8-16) 01/03/18 06:20 BUN 9 mg/dL (7-18) 01/03/18 06:20 Creatinine 0.6 mg/dL (0.7-1.3) L 01/03/18 06:20 Creat Clearance w eGFR > 60 (>60) 01/03/18 06:20 Random Glucose 178 mg/dL (74-106) H 01/03/18 06:20 Calcium 8.5 mg/dL (8.5-10.1) 01/03/18 06:20 Total Bilirubin 0.8 mg/dL (0.2-1.0) 12/30/17 06:20 AST 33 U/L (15-37) 12/30/17 06:20 ALT 111 U/L (12-78) H 12/30/17 06:20 Alkaline Phosphatase 64 U/L (45-117) 12/30/17 06:20 Total Protein 6.9 g/dl (6.4-8.2) 12/30/17 06:20 Albumin 2.6 g/dl (3.4-5.0) L 12/30/17 06:20 CARDIAC ENZYMES Creatine Kinase 278 IU/L (39-308) 12/29/17 22:05 Troponin I 0.07 ng/ml (0.00-0.05) H D 12/29/17 22:05 Current Medications Generic Name Dose Route Start Last Admin Trade Name Brayan PRN Reason Stop Dose Admin Albuterol/Ipratropium 1 amp 12/30/17 08:00 01/04/18 07:55 Duoneb - NEB 1 amp RQID FLORIN Administration Amlodipine Besylate 10 mg 12/30/17 10:00 01/03/18 09:48 Norvasc - PO 10 mg DAILY FLORIN Administration Aspirin 81 mg 12/30/17 10:00 01/03/18 09:49 Asa - PO 81 mg DAILY FLORIN Administration Atorvastatin Calcium 40 mg 12/30/17 22:00 01/03/18 22:21 Lipitor - PO 40 mg HS FLORIN Administration Clotrimazole 1 applic 12/30/17 10:00 01/03/18 22:22 Lotrimin 1% Cream - TP 1 applic BID FLORIN Administration Diltiazem HCl 120 mg 12/30/17 10:00 01/03/18 09:48 Cardizem Cd - PO 120 mg DAILY FLORIN Administration Ergocalciferol 50,000 unit 01/06/18 10:00 Drisdol - PO Fr@1000 FLORIN Escitalopram Oxalate 10 mg 12/30/17 10:00 01/03/18 09:49 Lexapro - PO 10 mg DAILY FLORIN Administration Furosemide 40 mg 12/30/17 10:00 01/03/18 09:49 Lasix - PO 40 mg DAILY FLORIN Administration Gabapentin 300 mg 12/30/17 06:00 01/04/18 05:57 Neurontin - PO 300 mg TID FLORIN Administration Heparin Sodium (Porcine) 5,000 unit 12/30/17 14:00 01/04/18 05:57 Heparin - SQ 5,000 unit TID FLORIN Administration Insulin Aspart 1 vial 12/30/17 07:00 01/04/18 06:03 Novolog Vial Sliding Scale - SQ Not Given ACHS FLORIN Protocol Insulin Aspart 5 units 12/30/17 16:30 01/04/18 06:03 Novolog Vial SQ 5 units TIDAC FLORIN Administration Protocol Insulin Detemir 20 units 12/30/17 16:51 01/04/18 06:02 Levemir Vial SQ 20 units BID@0700,2200 FLORIN Administration Lidocaine HCl 1 applic 12/30/17 06:00 01/04/18 05:58 Xylocaine 5% Top. Ointment TP 1 applic TID FLORIN Administration Lisinopril 30 mg 12/30/17 10:00 01/03/18 09:48 Prinivil PO 30 mg DAILY FLORIN Administration Nystatin 500,000 units 12/30/17 12:00 01/04/18 05:57 Nystatin Oral Suspension - PO 500,000 units Q6HPO FLORIN Administration Polyethylene Glycol 17 gm 01/02/18 14:45 01/03/18 09:52 Miralax (For Daily Use) - PO 17 grams DAILY FLORIN Administration Prednisone 10 mg 01/04/18 10:00 Deltasone - PO 01/04/18 10:01 ONCE ONE Senna/Docusate Sodium 1 tablet 12/30/17 22:00 01/03/18 22:21 Pericolace - PO 1 tablet HS FLORIN Administration Silver Sulfadiazine 1 applic 12/30/17 10:00 01/03/18 09:56 Silvadene - TP 1 applic DAILY FLORIN Administration Home Medications Medication Instructions Recorded Escitalopram Oxalate [Lexapro -] 10 mg PO DAILY 12/10/15 Gabapentin 300 mg PO TID 12/10/15 Diltiazem Cd [Cardizem Cd -] 120 mg PO DAILY tab 10/22/16 Amlodipine Besylate 10 mg PO DAILY 12/20/17 Azelastine HCl 205.5 mcg NS BID 12/20/17 Ergocalciferol (Vitamin D2) 50,000 unit PO WEEKLY 12/20/17 [Vitamin D2] Furosemide [Lasix -] 40 mg PO DAILY 12/20/17 Lidocaine 5% Top. Ointment 1 applic TP TID 12/20/17 [Xylocaine 5% Top. Ointment -] Lisinopril [Prinivil] 30 mg PO DAILY 12/20/17 Aspirin [ASA -] 81 mg PO DAILY tab.chew 12/27/17 Atorvastatin Ca [Lipitor] 40 mg PO HS #30 tablet 12/27/17 Cefuroxime Axetil [Ceftin -] 500 mg PO BID #6 tablet 12/27/17 Insulin (LOG) Aspart [NovoLOG -] 5 units SQ TID 8 Days #1 vial 12/27/17 Insulin (Levemir) [Levemir Vial] 15 units SQ BID 8 Days #1 vial 12/27/17 Prednisone See Taper PO DAILY #20 tablet 12/27/17 PE: per resident's note ASSESSMENT AND PLAN: 77 y/o man with h/o COPD on O 2, DM, HTN, HLP, h/o Trach , stroke with R sided residual weakness, ascending aortic aneurysm and dysphagea , and recent hospitalization for UTI and COPD exacerbation who was sent form home due to R sided pain . # H/o COPD on taper dose of steroid . # Leukcytosis: resolved likely due to use of steroids # Recent UTI: finished a course of Abx # h/o Diastolic heart failure: no exacerbation. cont home meds # DM: cont with levemir 20 BID, novolog 5 TId and SSI. might need to decrease levemir to 15 bid when steroids are finished # Abd distention .due to colonic atonia . chronic . no further w/u. cont laxatives DVT pX Dispo: dc to rehab pending a bed
[2018-01-04 08:55] LABS: ANION GAP 4 MMOL/L (8-16); BLOOD UREA NITROGEN 8 mg/dL (7-18); CALCIUM 8.3 mg/dL (8.5-10.1); CHLORIDE 101 mmol/L (98-107); CO2 34 mmol/L (21-32); CREATININE 0.6 mg/dL (0.7-1.3); GLUCOSE,RANDOM 106 mg/dL (74-106); MAGNESIUM 2.1 mg/dL (1.8-2.4); PHOSPHOROUS 3.4 mg/dL (2.5-4.9); POTASSIUM 3.7 mmol/L (3.5-5.1); SODIUM 139 mmol/L (136-145)
[2018-01-04] MEDS: LISINOPRIL 10 MG TABLET (FP) PO SCH (09:56)
[2018-01-04] MEDS: ESCITALOPRAM OXALATE 10 MG TABLET (FP) PO SCH (09:57)
[2018-01-04] MEDS: ASPIRIN 81 MG CHEWABLE TABLETS PO SCH (09:57)
[2018-01-04] MEDS: CLOTRIMAZOLE 1% CREAM 15 GM TUBE TP SCH ×2 (09:57→21:48)
[2018-01-04] MEDS: amLODIPine BESYLATE 10 MG TABLET (FP) PO SCH (09:57)
[2018-01-04] MEDS: FUROSEMIDE 40 MG TABLET (FP) PO SCH (09:57)
[2018-01-04] MEDS: SILVER SULFADIAZINE 1% TOP CREAM 50 GM JAR TP SCH (09:58)
[2018-01-04] MEDS: POLYETHYLENE GLYCOL 3350 119 GM BTL PO SCH (10:00)
[2018-01-04] MEDS ORDERED: predniSONE 10 MG TABLET (UD) PO ONE (10:00)
[2018-01-04] MEDS ORDERED: PT OWN MED DRAWER 7, Y5N ONE (21:41)
[2018-01-04] MEDS: SENNOSIDES/DOCUSATE COMBO (SENNA PLUS) TABLET (UD) PO SCH (21:43)
[2018-01-04] MEDS: ATORVASTATIN CA 40 MG TABLET (FP) PO SCH (21:44)
[2018-01-05] MEDS: NYSTATIN 500,000 UNITS/5 ML SUSPENSION PO SCH ×5 (00:03→23:34)
[2018-01-05] MEDS: HEPARIN NA (PORCINE) 5,000 UNITS/ML 1ML VIAL SQ SCH ×3 (06:06→23:34)
[2018-01-05] MEDS: LIDOCAINE HCL 5% TOP OINTMENT 50 GM TUBE TP SCH ×3 (06:07→23:40)
[2018-01-05] MEDS: GABAPENTIN 300 MG CAPSULE (FP) PO SCH ×3 (06:07→23:34)
[2018-01-05] MEDS: INSULIN (NOVOLOG) ASPART 100 UNITS/ML 10ML VIAL SQ SCH ×3 (06:08→16:38)
[2018-01-05] MEDS: INSULIN (LEVEMIR) 100 UNITS/ML UNITS SQ SCH ×2 (06:08→23:34)
[2018-01-05] MEDS: INSULIN SLIDING SCALE (NOVOLOG) 1 VIAL SQ SCH ×4 (06:09→23:38)
[2018-01-05 07:03] LABS: BASO % 1.3 % (0-2.0); EOS % 0.9 % (0-4.5); HEMATOCRIT 36.9 % (35.4-49); HEMOGLOBIN 12.8 GM/dL (11.7-16.9); LYMPH % 34.3 % (8-40); MCH 31.2 pg (25.7-33.7); MCHC 34.8 g/dl (32.0-35.9); MEAN CELL VOLUME 89.7 fl (80-96); MEAN PLT VOLUME 8.5 fl (7.5-11.1); MONO % 8.7 % (3.8-10.2); NEUT % 54.8 % (42.8-82.8); PLATELET COUNT 264 K/MM3 (134-434); RBC 4.12 M/mm3 (4.00-5.60); RDW 15.7 % (11.9-15.9); WHITE BLOOD COUNT 9.7 K/mm3 (4.0-10.0)
[2018-01-05 07:35] LABS: ANION GAP 8 MMOL/L (8-16); BLOOD UREA NITROGEN 8 mg/dL (7-18); CALCIUM 8.5 mg/dL (8.5-10.1); CHLORIDE 100 mmol/L (98-107); CO2 32 mmol/L (21-32); CREATININE 0.6 mg/dL (0.7-1.3); GLUCOSE,RANDOM 153 mg/dL (74-106); POTASSIUM 3.9 mmol/L (3.5-5.1); SODIUM 140 mmol/L (136-145)
[2018-01-05] MEDS: ALBUTEROL SO4 2.5/IPRATROPIUM 0.5 INH SOL 3 ML VIAL.NEB. NEB SCH ×4 (08:19→20:10)
[2018-01-05] MEDS ORDERED: PT OWN MED DRAWER 7, Y5N ONE (09:46)
[2018-01-05] MEDS: amLODIPine BESYLATE 10 MG TABLET (FP) PO SCH (09:49)
[2018-01-05] MEDS: LISINOPRIL 10 MG TABLET (FP) PO SCH (09:49)
[2018-01-05] MEDS: POLYETHYLENE GLYCOL 3350 119 GM BTL PO SCH (09:49)
[2018-01-05] MEDS: ESCITALOPRAM OXALATE 10 MG TABLET (FP) PO SCH (09:50)
[2018-01-05] MEDS: ASPIRIN 81 MG CHEWABLE TABLETS PO SCH (09:50)
[2018-01-05] MEDS: FUROSEMIDE 40 MG TABLET (FP) PO SCH (09:51)
[2018-01-05] MEDS: CLOTRIMAZOLE 1% CREAM 15 GM TUBE TP SCH ×2 (09:52→23:40)
[2018-01-05] MEDS: SILVER SULFADIAZINE 1% TOP CREAM 50 GM JAR TP SCH (09:52)
[2018-01-05] MEDS ORDERED: INSULIN (NOVOLOG) ASPART 100 UNITS/ML 10ML VIAL ONE (11:51)
--- NOTE | 2018-01-05 13:34 | PN ---
Teaching Attending Note Name of Resident: Roman Goins ATTENDING PHYSICIAN STATEMENT I saw and evaluated the patient. I reviewed the resident's note and discussed the case with the resident. I agree with the resident's findings and plan as documented. SUBJECTIVE: Patient is comfortable with no acute distress. OBJECTIVE: Vital Signs Temperature 98.3 F 01/05/18 09:42 Pulse Rate 64 01/05/18 09:42 Respiratory Rate 18 01/05/18 09:42 Blood Pressure 124/49 01/05/18 09:42 O2 Sat by Pulse Oximetry (%) 96 01/05/18 09:00 CBCD WBC 9.7 K/mm3 (4.0-10.0) 01/05/18 06:30 RBC 4.12 M/mm3 (4.00-5.60) 01/05/18 06:30 Hgb 12.8 GM/dL (11.7-16.9) 01/05/18 06:30 Hct 36.9 % (35.4-49) 01/05/18 06:30 MCV 89.7 fl (80-96) 01/05/18 06:30 MCHC 34.8 g/dl (32.0-35.9) 01/05/18 06:30 RDW 15.7 % (11.9-15.9) 01/05/18 06:30 Plt Count 264 K/MM3 (134-434) 01/05/18 06:30 MPV 8.5 fl (7.5-11.1) 01/05/18 06:30 CMP Sodium 140 mmol/L (136-145) 01/05/18 06:30 Potassium 3.9 mmol/L (3.5-5.1) 01/05/18 06:30 Chloride 100 mmol/L (98-107) 01/05/18 06:30 Carbon Dioxide 32 mmol/L (21-32) 01/05/18 06:30 Anion Gap 8 MMOL/L (8-16) 01/05/18 06:30 BUN 8 mg/dL (7-18) 01/05/18 06:30 Creatinine 0.6 mg/dL (0.7-1.3) L 01/05/18 06:30 Creat Clearance w eGFR > 60 (>60) 01/05/18 06:30 Random Glucose 153 mg/dL (74-106) H D 01/05/18 06:30 Calcium 8.5 mg/dL (8.5-10.1) 01/05/18 06:30 Total Bilirubin 0.8 mg/dL (0.2-1.0) 12/30/17 06:20 AST 33 U/L (15-37) 12/30/17 06:20 ALT 111 U/L (12-78) H 12/30/17 06:20 Alkaline Phosphatase 64 U/L (45-117) 12/30/17 06:20 Total Protein 6.9 g/dl (6.4-8.2) 12/30/17 06:20 Albumin 2.6 g/dl (3.4-5.0) L 12/30/17 06:20 CARDIAC ENZYMES Creatine Kinase 278 IU/L (39-308) 12/29/17 22:05 Troponin I 0.07 ng/ml (0.00-0.05) H D 12/29/17 22:05 Current Medications Generic Name Dose Route Start Last Admin Trade Name Brayan PRN Reason Stop Dose Admin Albuterol/Ipratropium 1 amp 12/30/17 08:00 01/05/18 11:39 Duoneb - NEB 1 amp RQID FLORIN Administration Amlodipine Besylate 10 mg 12/30/17 10:00 01/05/18 09:49 Norvasc - PO 10 mg DAILY FLORIN Administration Aspirin 81 mg 12/30/17 10:00 01/05/18 09:50 Asa - PO 81 mg DAILY FLORIN Administration Atorvastatin Calcium 40 mg 12/30/17 22:00 01/04/18 21:44 Lipitor - PO 40 mg HS FLORIN Administration Clotrimazole 1 applic 12/30/17 10:00 01/05/18 09:52 Lotrimin 1% Cream - TP 1 applic BID FLORIN Administration Diltiazem HCl 120 mg 12/30/17 10:00 01/05/18 09:51 Cardizem Cd - PO 120 mg DAILY FLORIN Administration Ergocalciferol 50,000 unit 01/06/18 10:00 Drisdol - PO Fr@1000 FLORIN Escitalopram Oxalate 10 mg 12/30/17 10:00 01/05/18 09:50 Lexapro - PO 10 mg DAILY FLORIN Administration Furosemide 40 mg 12/30/17 10:00 01/05/18 09:51 Lasix - PO 40 mg DAILY FLORIN Administration Gabapentin 300 mg 12/30/17 06:00 01/05/18 06:07 Neurontin - PO 300 mg TID FLORIN Administration Heparin Sodium (Porcine) 5,000 unit 12/30/17 14:00 01/05/18 06:06 Heparin - SQ 5,000 unit TID FLORIN Administration Insulin Aspart 1 vial 12/30/17 07:00 01/05/18 11:52 Novolog Vial Sliding Scale - SQ 8 unit ACHS FLORIN Administration Protocol Insulin Aspart 5 units 12/30/17 16:30 01/05/18 11:52 Novolog Vial SQ 5 units TIDAC FLORIN Administration Protocol Insulin Detemir 20 units 12/30/17 16:51 01/05/18 06:08 Levemir Vial SQ 20 units BID@0700,2200 FLORIN Administration Lidocaine HCl 1 applic 12/30/17 06:00 01/05/18 06:07 Xylocaine 5% Top. Ointment TP 1 applic TID FLORIN Administration Lisinopril 30 mg 12/30/17 10:00 01/05/18 09:49 Prinivil PO 30 mg DAILY FLORIN Administration Nystatin 500,000 units 12/30/17 12:00 01/05/18 11:54 Nystatin Oral Suspension - PO 500,000 units Q6HPO FLORIN Administration Polyethylene Glycol 17 gm 01/02/18 14:45 01/05/18 09:49 Miralax (For Daily Use) - PO 17 grams DAILY FLORIN Administration Senna/Docusate Sodium 1 tablet 12/30/17 22:00 01/04/18 21:43 Pericolace - PO 1 tablet HS FLORIN Administration Silver Sulfadiazine 1 applic 12/30/17 10:00 01/05/18 09:52 Silvadene - TP 1 applic DAILY FLORIN Administration Home Medications Medication Instructions Recorded Escitalopram Oxalate [Lexapro -] 10 mg PO DAILY 12/10/15 Gabapentin 300 mg PO TID 12/10/15 Diltiazem Cd [Cardizem Cd -] 120 mg PO DAILY tab 10/22/16 Amlodipine Besylate 10 mg PO DAILY 12/20/17 Azelastine HCl 205.5 mcg NS BID 12/20/17 Ergocalciferol (Vitamin D2) 50,000 unit PO WEEKLY 12/20/17 [Vitamin D2] Furosemide [Lasix -] 40 mg PO DAILY 12/20/17 Lidocaine 5% Top. Ointment 1 applic TP TID 12/20/17 [Xylocaine 5% Top. Ointment -] Lisinopril [Prinivil] 30 mg PO DAILY 12/20/17 Aspirin [ASA -] 81 mg PO DAILY tab.chew 12/27/17 Atorvastatin Ca [Lipitor] 40 mg PO HS #30 tablet 12/27/17 Cefuroxime Axetil [Ceftin -] 500 mg PO BID #6 tablet 12/27/17 Insulin (LOG) Aspart [NovoLOG -] 5 units SQ TID 8 Days #1 vial 12/27/17 Insulin (Levemir) [Levemir Vial] 15 units SQ BID 8 Days #1 vial 12/27/17 Prednisone See Taper PO DAILY #20 tablet 12/27/17 PE: per resident's note ASSESSMENT AND PLAN: 77 y/o man with h/o COPD on O 2, DM, HTN, HLP, h/o Trach , stroke with R sided residual weakness, ascending aortic aneurysm and dysphagea , and recent hospitalization for UTI and COPD exacerbation who was sent form home due to R sided pain . # H/o COPD ,completed steroid taper . # Leukcytosis: resolved # Recent UTI: finished a course of Abx # h/o Diastolic heart failure: no exacerbation. cont home meds # DM: cont with levemir 20 BID, novolog 5 TId and SSI. might need to decrease levemir to 15 bid when steroids are finished , will monitor on 20Units now, # Abd distention .due to colonic atonia . chronic . no further w/u. cont laxatives DVT px: Heparin Dispo: dc to rehab pending a bed
--- NOTE | 2018-01-05 16:47 | PN ---
Physical Exam: SUBJECTIVE: Patient seen and examined at bedside. No complaints. Has full capacity, amenable to SNF placement. OBJECTIVE: Vital Signs Period Temp Pulse Resp BP Sys/Pham Pulse Ox Last 24 Hr 97.9 F-98.3 F 62-78 18-20 115-124/49-73 96-96 GENERAL: A&Ox3, NAD HEAD: NC/AT EYES: PERRLA, EOMI, sclera anicteric HEENT: MMM NECK: Trachea midline, full range of motion, supple, no JVD LUNGS: tracheal breath sounds, coarse ronchi diffusely HEART: normal S1S2, RRR, no m/r/g ABDOMEN: increased distention, bowel sounds not appreciated, tympanitic, non- tender, reducible umbilical hernia EXTREMITIES: 2+ pulses, warm, well-perfused, 1+ pitting edema in b/l LE NEUROLOGICAL: -CN exam notable for significant right and mild left facial droop, dysarthria, otherwise intact -strength 4/5 in LUE and LLE, 0/5 in proximal RUE, 2/5 in distal RUE, 0/5 in proximal RLE, 1/5 in distal RLE -sensation grossly intact -could not evaluate FtN or HtS -could not elicit biceps or patellar reflexes -upgoing plantars b/l R>L Laboratory Results - last 24 hr 01/04/18 01/04/18 01/05/18 17:13 21:47 06:05 WBC RBC Hgb Hct MCV MCH MCHC RDW Plt Count MPV Absolute Neuts (auto) Neutrophils % Lymphocytes % Monocytes % Eosinophils % Basophils % Nucleated RBC % Sodium Potassium Chloride Carbon Dioxide Anion Gap BUN Creatinine Creat Clearance w eGFR POC Glucometer 285 259 149 Random Glucose Calcium 01/05/18 01/05/18 01/05/18 06:30 06:30 11:37 WBC 9.7 RBC 4.12 Hgb 12.8 Hct 36.9 MCV 89.7 MCH 31.2 MCHC 34.8 RDW 15.7 Plt Count 264 MPV 8.5 Absolute Neuts (auto) 5.3 Neutrophils % 54.8 Lymphocytes % 34.3 Monocytes % 8.7 Eosinophils % 0.9 Basophils % 1.3 Nucleated RBC % 0 Sodium 140 Potassium 3.9 Chloride 100 Carbon Dioxide 32 Anion Gap 8 BUN 8 Creatinine 0.6 L Creat Clearance w eGFR > 60 POC Glucometer 333 Random Glucose 153 H D Calcium 8.5 Active Medications Generic Name Dose Route Start Last Admin Trade Name Brayan PRN Reason Stop Dose Admin Albuterol/Ipratropium 1 amp 12/30/17 08:00 01/05/18 15:51 Duoneb - NEB 1 amp RQID FLORIN Administration Amlodipine Besylate 10 mg 12/30/17 10:00 01/05/18 09:49 Norvasc - PO 10 mg DAILY FLORIN Administration Aspirin 81 mg 12/30/17 10:00 01/05/18 09:50 Asa - PO 81 mg DAILY FLORIN Administration Atorvastatin Calcium 40 mg 12/30/17 22:00 01/04/18 21:44 Lipitor - PO 40 mg HS FLORIN Administration Clotrimazole 1 applic 12/30/17 10:00 01/05/18 09:52 Lotrimin 1% Cream - TP 1 applic BID FLORIN Administration Diltiazem HCl 120 mg 12/30/17 10:00 01/05/18 09:51 Cardizem Cd - PO 120 mg DAILY FLORIN Administration Ergocalciferol 50,000 unit 01/06/18 10:00 Drisdol - PO Fr@1000 [facility] Escitalopram Oxalate 10 mg 12/30/17 10:00 01/05/18 09:50 Lexapro - PO 10 mg DAILY FLORIN Administration Furosemide 40 mg 12/30/17 10:00 01/05/18 09:51 Lasix - PO 40 mg DAILY FLORIN Administration Gabapentin 300 mg 12/30/17 06:00 01/05/18 14:35 Neurontin - PO 300 mg TID FLORIN Administration Heparin Sodium (Porcine) 5,000 unit 12/30/17 14:00 01/05/18 14:35 Heparin - SQ 5,000 unit TID [facility] Administration Insulin Aspart 1 vial 12/30/17 07:00 01/05/18 16:38 Novolog Vial Sliding Scale - SQ 2 unit ACHS [facility] Administration Protocol Insulin Aspart 5 units 12/30/17 16:30 01/05/18 16:38 Novolog Vial SQ 5 units TIDAC [facility] Administration Protocol Insulin Detemir 20 units 12/30/17 16:51 01/05/18 06:08 Levemir Vial SQ 20 units BID@0700,2200 FLORIN Administration Lidocaine HCl 1 applic 12/30/17 06:00 01/05/18 14:35 Xylocaine 5% Top. Ointment TP 1 applic TID FLORIN Administration Lisinopril 30 mg 12/30/17 10:00 01/05/18 09:49 Prinivil PO 30 mg DAILY FLORIN Administration Nystatin 500,000 units 12/30/17 12:00 01/05/18 11:54 Nystatin Oral Suspension - PO 500,000 units Q6HPO FLORIN Administration Polyethylene Glycol 17 gm 01/02/18 14:45 01/05/18 09:49 Miralax (For Daily Use) - PO 17 grams DAILY FLORIN Administration Senna/Docusate Sodium 1 tablet 12/30/17 22:00 01/04/18 21:43 Pericolace - PO 1 tablet HS FLORIN Administration Silver Sulfadiazine 1 applic 12/30/17 10:00 01/05/18 09:52 Silvadene - TP 1 applic DAILY FLORIN Administration ASSESSMENT/PLAN: 77 y/o M w/ PMHx CVA w/ residual R-sided deficits, chronic dysphagia w/ prior trach, COPD on home O2, diastolic CHF, T2DM, HTN, HLD. Brought to ED by home care manager rn evening of 12/29/17 after being discharged on 12/27/17 following hospitalization for UTI and COPD exacerbation, now seeking more robust nursing support for chronic disabilities. No acute complaints, no change in status. #h/o stroke and chronic disability -requires 24 hour nursing care -had refused SNF on previous hospitalization -now amenable to SNF -has full capacity -awaiting placement -home Lexapro 10 daily, gabapentin 300 TID, ASA 81, lipitor 40 #COPD -had been discharged on steroid taper, given IV steroids in ED -completed steroid taper yesterday -otherwise, c/w regimen from prior discharge #DM -home regimen held and on temporary coverage as per endocrinology recommendations from prior hospitalization (see prior discharge summary) -sugars significantly improved this AM, will watch closely and may hold HS insulin -Levemir 20 BID -Novolog 5 TID -SSI -BGM ACHS #abd distension/mucous-filled BM -XR shows colonic distention, c/w prior hospitalization -C diff negative -stool Cx pending -pericolace + Miralax #CHF - prior echo: 60% EF, normal LV, trace MR, trace TR, moderate - home meds: lasix 40, lisinopril 30, norvasc 10, dilt 120 daily #dysphagia -dysphagia chopped diet w/ nectar liquid as per prior S/S reccs #Decubitis Ulcers - silver sulfadiazine #genital rash - clotrimazole #oral thrush - on steroids - nystatin swish/swallow #FEN -no IVF -monitoring lytes and glucose -chopped diet w/ nectar liquid #PPX -DVT: heparin subq -GI: pericolace, Miralax #HCP/contact -daughter Ama [phone] -health aide Marychuy [phone] #Dispo: -med/surg -awaiting SNF placement Visit type - Emergency Visit Emergency Visit: No - New Patient This patient is new to me today: No - Critical Care Critical Care patient: No
[2018-01-05 16:57] VITALS: BMI 36.1
[2018-01-05] MEDS: ATORVASTATIN CA 40 MG TABLET (FP) PO SCH (23:34)
[2018-01-05] MEDS: SENNOSIDES/DOCUSATE COMBO (SENNA PLUS) TABLET (UD) PO SCH (23:40)
[2018-01-06] MEDS: HEPARIN NA (PORCINE) 5,000 UNITS/ML 1ML VIAL SQ SCH ×2 (06:30→13:41)
[2018-01-06] MEDS: NYSTATIN 500,000 UNITS/5 ML SUSPENSION PO SCH ×4 (06:30→20:09)
[2018-01-06] MEDS: GABAPENTIN 300 MG CAPSULE (FP) PO SCH ×3 (06:30→21:56)
[2018-01-06] MEDS: INSULIN (LEVEMIR) 100 UNITS/ML UNITS SQ SCH ×2 (06:31→21:55)
[2018-01-06] MEDS: LIDOCAINE HCL 5% TOP OINTMENT 50 GM TUBE TP SCH ×3 (06:31→21:58)
[2018-01-06] MEDS: INSULIN SLIDING SCALE (NOVOLOG) 1 VIAL SQ SCH ×4 (06:33→21:57)
[2018-01-06] MEDS: INSULIN (NOVOLOG) ASPART 100 UNITS/ML 10ML VIAL SQ SCH ×3 (06:34→16:31)
[2018-01-06 08:11] LABS: BASO % 1.4 % (0-2.0); EOS % 1.2 % (0-4.5); HEMATOCRIT 36.2 % (35.4-49); HEMOGLOBIN 12.6 GM/dL (11.7-16.9); LYMPH % 27.4 % (8-40); MCH 31.3 pg (25.7-33.7); MCHC 34.8 g/dl (32.0-35.9); MEAN CELL VOLUME 89.9 fl (80-96); MEAN PLT VOLUME 8.7 fl (7.5-11.1); PLATELET COUNT 253 K/MM3 (134-434); RBC 4.03 M/mm3 (4.00-5.60); RDW 15.6 % (11.9-15.9); WHITE BLOOD COUNT 8.6 K/mm3 (4.0-10.0)
[2018-01-06 08:42] LABS: ANION GAP 7 MMOL/L (8-16); BLOOD UREA NITROGEN 10 mg/dL (7-18); CALCIUM 8.3 mg/dL (8.5-10.1); CHLORIDE 98 mmol/L (98-107); CO2 33 mmol/L (21-32); CREATININE 0.8 mg/dL (0.55-1.3); GLUCOSE,RANDOM 148 mg/dL (74-106); PHOSPHOROUS 3.9 mg/dL (2.5-4.9); POTASSIUM 3.7 mmol/L (3.5-5.1); SODIUM 138 mmol/L (136-145)
[2018-01-06] MEDS: ALBUTEROL SO4 2.5/IPRATROPIUM 0.5 INH SOL 3 ML VIAL.NEB. NEB SCH ×4 (08:51→21:52)
[2018-01-06] MEDS ORDERED: PT OWN MED DRAWER 7, Y5N ONE (09:18)
[2018-01-06] MEDS: LISINOPRIL 10 MG TABLET (FP) PO SCH (09:22)
[2018-01-06] MEDS: FUROSEMIDE 40 MG TABLET (FP) PO SCH (09:22)
[2018-01-06] MEDS: ASPIRIN 81 MG CHEWABLE TABLETS PO SCH (09:23)
[2018-01-06] MEDS: amLODIPine BESYLATE 10 MG TABLET (FP) PO SCH (09:23)
[2018-01-06] MEDS: ESCITALOPRAM OXALATE 10 MG TABLET (FP) PO SCH (09:23)
[2018-01-06] MEDS: POLYETHYLENE GLYCOL 3350 119 GM BTL PO SCH (09:23)
[2018-01-06] MEDS: CLOTRIMAZOLE 1% CREAM 15 GM TUBE TP SCH ×2 (09:26→21:59)
[2018-01-06] MEDS: SILVER SULFADIAZINE 1% TOP CREAM 50 GM JAR TP SCH (09:26)
[2018-01-06] MEDS ORDERED: ERGOCALCIFEROL (VITAMIN D2) 50,000 UNIT CAPSULE (FP) PO SCH (10:00)
--- NOTE | 2018-01-06 13:03 | DS ---
Physical Exam: SUBJECTIVE: Patient seen and examined at bedside. No complaints. Has full capacity, amenable to SNF placement. OBJECTIVE: Vital Signs Period Temp Pulse Resp BP Sys/Pham Pulse Ox Last 24 Hr 98.2 F 66 18-19 123/56 96 PHYSICAL EXAM GENERAL: A&Ox3, NAD HEAD: NC/AT EYES: PERRLA, EOMI, sclera anicteric HEENT: MMM NECK: Trachea midline, full range of motion, supple, no JVD LUNGS: tracheal breath sounds HEART: normal S1S2, RRR, no m/r/g ABDOMEN: increased distention, bowel sounds not appreciated, tympanitic, non- tender, reducible umbilical hernia EXTREMITIES: 2+ pulses, warm, well-perfused, 1+ pitting edema in b/l LE NEUROLOGICAL: -CN exam notable for significant right and mild left facial droop, dysarthria, otherwise intact -strength 4/5 in LUE and LLE, 0/5 in proximal RUE, 2/5 in distal RUE, 0/5 in proximal RLE, 1/5 in distal RLE -sensation grossly intact -could not evaluate FtN or HtS -could not elicit biceps or patellar reflexes -upgoing plantars b/l R>L LABS Laboratory Results - last 24 hr 01/05/18 01/05/18 01/06/18 16:37 23:37 06:29 WBC RBC Hgb Hct MCV MCH MCHC RDW Plt Count MPV Absolute Neuts (auto) Neutrophils % Lymphocytes % Monocytes % Eosinophils % Basophils % Nucleated RBC % Sodium Potassium Chloride Carbon Dioxide Anion Gap BUN Creatinine Creat Clearance w eGFR POC Glucometer 172 244 137 Random Glucose Calcium Phosphorus Magnesium 01/06/18 01/06/18 01/06/18 07:22 07:22 11:41 WBC 8.6 RBC 4.03 Hgb 12.6 Hct 36.2 MCV 89.9 MCH 31.3 MCHC 34.8 RDW 15.6 Plt Count 253 MPV 8.7 Absolute Neuts (auto) 5.2 Neutrophils % 61.0 Lymphocytes % 27.4 D Monocytes % 9.0 Eosinophils % 1.2 Basophils % 1.4 Nucleated RBC % 0 Sodium 138 Potassium 3.7 Chloride 98 Carbon Dioxide 33 H Anion Gap 7 L BUN 10 Creatinine 0.8 Creat Clearance w eGFR > 60 POC Glucometer 228 Random Glucose 148 H Calcium 8.3 L Phosphorus 3.9 Magnesium 2.0 HOSPITAL COURSE: Date of Admission:12/29/17 Patient is a 77 y/o M w/ PMHx CVA w/ residual R-sided deficits, chronic dysphagia w/ prior trach, COPD on home O2, diastolic CHF, T2DM, HTN, HLD, who was hospitalized 12/20-12/27 for UTI and COPD exacerbation, discharged home on antibiotics and steroid taper after refusing SNF. 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 All studies and clinical examinations were unrevealing. Patient completed ABx and steroids, otherwise maintained on discharge regimen from prior hospitalization. Discharged on 01/06/18 to SNF d/t being unsafe to discharge home. Please see prior discharge summary for any further details. Date of Discharge: 01/06/18 Minutes to complete discharge: 40 <Roman Goins - Last Filed: 01/06/18 12:56> Physical Exam: Seen the patient. Agree with the resident's note. <Geo Crane - Last Filed: 01/06/18 17:10> Discharge Summary Reason For Visit: ACUTE EXACERBATION COPD Current Active Problems COPD exacerbation (Acute) - Home Medications Comprehensive Discharge Medication List: Ambulatory Orders Escitalopram Oxalate [Lexapro -] 10 mg PO DAILY 12/10/15 Gabapentin 300 mg PO TID 12/10/15 Diltiazem Cd [Cardizem Cd -] 120 mg PO DAILY tab 10/22/16 Amlodipine Besylate 10 mg PO DAILY 12/20/17 Azelastine HCl 205.5 mcg NS BID 12/20/17 Ergocalciferol (Vitamin D2) [Vitamin D2] 50,000 unit PO WEEKLY 12/20/17 Furosemide [Lasix -] 40 mg PO DAILY 12/20/17 Lidocaine 5% Top. Ointment [Xylocaine 5% Top. Ointment -] 1 applic TP TID Lisinopril [Prinivil] 30 mg PO DAILY 12/20/17 Aspirin [ASA -] 81 mg PO DAILY tab.chew 12/27/17 Atorvastatin Ca [Lipitor] 40 mg PO HS #30 tablet 12/27/17 Insulin (LOG) Aspart [NovoLOG -] 5 units SQ TID 8 Days #1 vial 12/27/17 Insulin (Levemir) [Levemir Vial] 15 units SQ BID 8 Days #1 vial 12/27/17 Albuterol 2.5/Ipratropium 0.5 [Duoneb -] 1 amp NEB RQID amp 01/05/18 Clotrimazole [Lotrimin -] 1 applic TP BID tube 01/05/18 Insulin Sliding Scale [Novolog Vial Sliding Scale -] 1 vial SQ ACHS units 01/05 Nystatin Oral Suspension - [Nystatin Oral Susp 574944 Units/5 ML -] 500,000 units PO Q6HPO cup 01/05/18 Polyethylene Glycol 3350 [Miralax 119 gm Btl -] 17 gm PO DAILY bottle 01/05/18 Sennosides/Docusate Sodium [Pericolace -] 1 tablet PO HS tablet 01/05/18 Silver Sulfadiazine 1% Top Cr [Silvadene -] 1 applic TP DAILY jar 01/05/18 <Roman Goins - Last Filed: 01/06/18 12:56> Current Active Problems COPD exacerbation (Acute) - Home Medications Comprehensive Discharge Medication List: Ambulatory Orders Escitalopram Oxalate [Lexapro -] 10 mg PO DAILY 12/10/15 Gabapentin 300 mg PO TID 12/10/15 Diltiazem Cd [Cardizem Cd -] 120 mg PO DAILY tab 10/22/16 Amlodipine Besylate 10 mg PO DAILY 12/20/17 Azelastine HCl 205.5 mcg NS BID 12/20/17 Ergocalciferol (Vitamin D2) [Vitamin D2] 50,000 unit PO WEEKLY 12/20/17 Furosemide [Lasix -] 40 mg PO DAILY 12/20/17 Lidocaine 5% Top. Ointment [Xylocaine 5% Top. Ointment -] 1 applic TP TID Lisinopril [Prinivil] 30 mg PO DAILY 12/20/17 Aspirin [ASA -] 81 mg PO DAILY tab.chew 12/27/17 Atorvastatin Ca [Lipitor] 40 mg PO HS #30 tablet 12/27/17 Insulin (LOG) Aspart [NovoLOG -] 5 units SQ TID 8 Days #1 vial 12/27/17 Insulin (Levemir) [Levemir Vial] 15 units SQ BID 8 Days #1 vial 12/27/17 Albuterol 2.5/Ipratropium 0.5 [Duoneb -] 1 amp NEB RQID amp 01/05/18 Clotrimazole [Lotrimin -] 1 applic TP BID tube 01/05/18 Insulin Sliding Scale [Novolog Vial Sliding Scale -] 1 vial SQ ACHS units 01/05 Nystatin Oral Suspension - [Nystatin Oral Susp 859225 Units/5 ML -] 500,000 units PO Q6HPO cup 01/05/18 Polyethylene Glycol 3350 [Miralax 119 gm Btl -] 17 gm PO DAILY bottle 01/05/18 Sennosides/Docusate Sodium [Pericolace -] 1 tablet PO HS tablet 01/05/18 Silver Sulfadiazine 1% Top Cr [Silvadene -] 1 applic TP DAILY jar 01/05/18 <Geo Crane - Last Filed: 01/06/18 17:10> Condition: Stable - Instructions Diet, Activity, Other Instructions: You were hospitalized for continuing disability from your previous hospitalization requiring placement in a [facility] facility. You were continued on your treatments from your previous hospitalization and tapered off of steroids. Referrals Referrals have been made on your behalf for follow up appointments at primary care clinic, with pulmonology (Dr. Diane) for your COPD, and with endocrinology (Dr. Angela) for your diabetes, for a week from your discharge. A referral has also been made with gastroenterology (Dr. Easley) for one month from discharge. Please keep these appointments. Medical recommendations You are being discharged to a [facility] facility and provided with the medications you need there. Do not change the medications you take before seeing your doctors. If you experience any new fever, chills, chest pain, difficulty breathing, weakness, changes in sensation such as numbness or tingling, or any other new symptoms, please return to the Emergency Department. [place] [facility] [place] [facility] [place] [Provider Group] - 1 Week Dhiraj Diane MD [Staff Physician] - 1 Week Edenilson Easley MD [Staff Physician] - 1 Month Bruno Angela MD [Staff Physician] - 1 Week Disposition: LONG-TERM FACILITY This patient is new to me today: No Emergency Visit: No Critical Care patient: No - Discharge Referral Referred to [facility] Med P.C.: No <Roman Goins - Last Filed: 01/06/18 12:56>
[2018-01-06] MEDS ORDERED: INSULIN (NOVOLOG) ASPART 100 UNITS/ML 10ML VIAL ONE ×2 (16:25→21:05)
[2018-01-06] MEDS: ATORVASTATIN CA 40 MG TABLET (FP) PO SCH (21:56)
[2018-01-06] MEDS: SENNOSIDES/DOCUSATE COMBO (SENNA PLUS) TABLET (UD) PO SCH (21:56)
[2018-01-07] MEDS: NYSTATIN 500,000 UNITS/5 ML SUSPENSION PO SCH ×5 (01:05→23:17)
[2018-01-07] MEDS: GABAPENTIN 300 MG CAPSULE (FP) PO SCH ×3 (06:15→21:24)
[2018-01-07] MEDS: INSULIN (NOVOLOG) ASPART 100 UNITS/ML 10ML VIAL SQ SCH ×3 (06:15→17:11)
[2018-01-07] MEDS: INSULIN SLIDING SCALE (NOVOLOG) 1 VIAL SQ SCH ×4 (06:16→21:25)
[2018-01-07] MEDS: INSULIN (LEVEMIR) 100 UNITS/ML UNITS SQ SCH ×2 (06:16→21:26)
[2018-01-07] MEDS: LIDOCAINE HCL 5% TOP OINTMENT 50 GM TUBE TP SCH ×3 (06:17→21:25)
[2018-01-07] MEDS ORDERED: INSULIN (LEVEMIR) 100 UNITS/ML UNITS SQ ONE (06:42)
[2018-01-07] MEDS: ALBUTEROL SO4 2.5/IPRATROPIUM 0.5 INH SOL 3 ML VIAL.NEB. NEB SCH ×4 (07:35→20:56)
[2018-01-07] MEDS: ASPIRIN 81 MG CHEWABLE TABLETS PO SCH (10:21)
[2018-01-07] MEDS: FUROSEMIDE 40 MG TABLET (FP) PO SCH (10:22)
[2018-01-07] MEDS: ESCITALOPRAM OXALATE 10 MG TABLET (FP) PO SCH (10:22)
[2018-01-07] MEDS: CLOTRIMAZOLE 1% CREAM 15 GM TUBE TP SCH ×2 (10:22→21:25)
[2018-01-07] MEDS: amLODIPine BESYLATE 10 MG TABLET (FP) PO SCH (10:23)
[2018-01-07] MEDS: LISINOPRIL 10 MG TABLET (FP) PO SCH (10:23)
[2018-01-07] MEDS: SILVER SULFADIAZINE 1% TOP CREAM 50 GM JAR TP SCH (10:24)
[2018-01-07] MEDS: POLYETHYLENE GLYCOL 3350 119 GM BTL PO SCH (10:25)
--- NOTE | 2018-01-07 11:15 | PN ---
Progress Note (short form) - Note Progress Note: Patient is comfortable with no acute distress. Vital Signs Temperature 97.8 F 01/07/18 08:00 Pulse Rate 78 01/07/18 08:00 Respiratory Rate 16 01/07/18 08:00 Blood Pressure 138/69 01/07/18 08:00 O2 Sat by Pulse Oximetry (%) 98 01/06/18 21:00 GENERAL: Awake, alert, in no acute distress. HEAD: NCAT EYES: PERRL THROAT: Oropharynx clear without exudates. Moist mucous membranes. LUNGS: Cta bL HEART: Regular rate and rhythm, normal S1 and S2 without murmur. ABDOMEN: Soft, nontender, Distended, Tympanic, + bowel sounds, Reducible Umbilical hernia present, no guarding, no rebound : Dry Erythematous punctate lesions over the glans of the penis without any discharge, No urethral discharge. m BACK: Stage 2 healing ulcer over the Right Gluteus, patient presented with that from home. no discharge of bleeding MUSCULOSKELETAL: No CVA tenderness. EXTREMITIES: 2+ pulses, No calf tenderness. 2+ peripheral edema NEUROLOGICAL: Residual Right facial droop, Other remaining Cranial nerves II- XII intact. Slurred speech. C5-T1 and L4-S1 gross sensation intact. RUE muscle strength 2/5, LUE muscle strength 4/5, RLE muscle strength 1/5, LLE Muscle strength 4/5 SKIN: Warm, dry, no other rashes or lesions noted. CBCD WBC 8.6 K/mm3 (4.0-10.0) 01/06/18 07:22 RBC 4.03 M/mm3 (4.00-5.60) 01/06/18 07:22 Hgb 12.6 GM/dL (11.7-16.9) 01/06/18 07:22 Hct 36.2 % (35.4-49) 01/06/18 07:22 MCV 89.9 fl (80-96) 01/06/18 07:22 MCHC 34.8 g/dl (32.0-35.9) 01/06/18 07:22 RDW 15.6 % (11.9-15.9) 01/06/18 07:22 Plt Count 253 K/MM3 (134-434) 01/06/18 07:22 MPV 8.7 fl (7.5-11.1) 01/06/18 07:22 CMP Sodium 138 mmol/L (136-145) 01/06/18 07:22 Potassium 3.7 mmol/L (3.5-5.1) 01/06/18 07:22 Chloride 98 mmol/L (98-107) 01/06/18 07:22 Carbon Dioxide 33 mmol/L (21-32) H 01/06/18 07:22 Anion Gap 7 MMOL/L (8-16) L 01/06/18 07:22 BUN 10 mg/dL (7-18) 01/06/18 07:22 Creatinine 0.8 mg/dL (0.55-1.3) 01/06/18 07:22 Creat Clearance w eGFR > 60 (>60) 01/06/18 07:22 Random Glucose 148 mg/dL (74-106) H 01/06/18 07:22 Calcium 8.3 mg/dL (8.5-10.1) L 01/06/18 07:22 Total Bilirubin 0.8 mg/dL (0.2-1.0) 12/30/17 06:20 AST 33 U/L (15-37) 12/30/17 06:20 ALT 111 U/L (12-78) H 12/30/17 06:20 Alkaline Phosphatase 64 U/L (45-117) 12/30/17 06:20 Total Protein 6.9 g/dl (6.4-8.2) 12/30/17 06:20 Albumin 2.6 g/dl (3.4-5.0) L 12/30/17 06:20 CARDIAC ENZYMES Creatine Kinase 278 IU/L (39-308) 12/29/17 22:05 Troponin I 0.07 ng/ml (0.00-0.05) H D 12/29/17 22:05 Current Medications Generic Name Dose Route Start Last Admin Trade Name Brayan PRN Reason Stop Dose Admin Albuterol/Ipratropium 1 amp 12/30/17 08:00 01/07/18 07:35 Duoneb - NEB 1 amp RQID FLORIN Administration Amlodipine Besylate 10 mg 12/30/17 10:00 01/07/18 10:23 Norvasc - PO 10 mg DAILY FLORIN Administration Aspirin 81 mg 12/30/17 10:00 01/07/18 10:21 Asa - PO 81 mg DAILY FLORIN Administration Atorvastatin Calcium 40 mg 12/30/17 22:00 01/06/18 21:56 Lipitor - PO 40 mg HS FLORIN Administration Clotrimazole 1 applic 12/30/17 10:00 01/07/18 10:22 Lotrimin 1% Cream - TP 1 applic BID FLORIN Administration Diltiazem HCl 120 mg 12/30/17 10:00 01/07/18 10:21 Cardizem Cd - PO 120 mg DAILY FLORIN Administration Ergocalciferol 50,000 unit 01/06/18 10:00 01/06/18 09:23 Drisdol - PO 50,000 unit Fr@1000 FLORIN Administration Escitalopram Oxalate 10 mg 12/30/17 10:00 01/07/18 10:22 Lexapro - PO 10 mg DAILY FLORIN Administration Furosemide 40 mg 12/30/17 10:00 01/07/18 10:22 Lasix - PO 40 mg DAILY FLORIN Administration Gabapentin 300 mg 12/30/17 06:00 01/07/18 06:15 Neurontin - PO 300 mg TID FLORIN Administration Insulin Aspart 1 vial 12/30/17 07:00 01/07/18 06:16 Novolog Vial Sliding Scale - SQ 2 unit ACHS FLORIN Administration Protocol Insulin Aspart 5 units 12/30/17 16:30 01/07/18 06:15 Novolog Vial SQ 5 units TIDAC FLORIN Administration Protocol Insulin Detemir 20 units 12/30/17 16:51 01/07/18 06:16 Levemir Vial SQ 20 units BID@0700,2200 FLORIN Administration Lidocaine HCl 1 applic 12/30/17 06:00 01/07/18 06:17 Xylocaine 5% Top. Ointment TP 1 applic TID FLORIN Administration Lisinopril 30 mg 12/30/17 10:00 01/07/18 10:23 Prinivil PO 30 mg DAILY FLORIN Administration Nystatin 500,000 units 12/30/17 12:00 01/07/18 06:15 Nystatin Oral Suspension - PO 500,000 units Q6HPO FLORIN Administration Polyethylene Glycol 17 gm 01/02/18 14:45 01/07/18 10:25 Miralax (For Daily Use) - PO 17 grams DAILY FLORIN Administration Senna/Docusate Sodium 1 tablet 12/30/17 22:00 01/06/18 21:56 Pericolace - PO 1 tablet HS FLORIN Administration Silver Sulfadiazine 1 applic 12/30/17 10:00 01/07/18 10:24 Silvadene - TP 1 applic DAILY FLORIN Administration Home Medications Medication Instructions Recorded Escitalopram Oxalate [Lexapro -] 10 mg PO DAILY 12/10/15 Gabapentin 300 mg PO TID 12/10/15 Diltiazem Cd [Cardizem Cd -] 120 mg PO DAILY tab 10/22/16 Amlodipine Besylate 10 mg PO DAILY 12/20/17 Azelastine HCl 205.5 mcg NS BID 12/20/17 Ergocalciferol (Vitamin D2) 50,000 unit PO WEEKLY 12/20/17 [Vitamin D2] Furosemide [Lasix -] 40 mg PO DAILY 12/20/17 Lidocaine 5% Top. Ointment 1 applic TP TID 12/20/17 [Xylocaine 5% Top. Ointment -] Lisinopril [Prinivil] 30 mg PO DAILY 12/20/17 Aspirin [ASA -] 81 mg PO DAILY tab.chew 12/27/17 Atorvastatin Ca [Lipitor] 40 mg PO HS #30 tablet 12/27/17 Insulin (LOG) Aspart [NovoLOG -] 5 units SQ TID 8 Days #1 vial 12/27/17 Insulin (Levemir) [Levemir Vial] 15 units SQ BID 8 Days #1 vial 12/27/17 Albuterol 2.5/Ipratropium 0.5 1 amp NEB RQID amp 01/05/18 [Duoneb -] Clotrimazole [Lotrimin -] 1 applic TP BID tube 01/05/18 Insulin Sliding Scale [Novolog 1 vial SQ ACHS units 01/05/18 Vial Sliding Scale -] Nystatin Oral Suspension - 500,000 units PO Q6HPO cup 01/05/18 [Nystatin Oral Susp 342672 Units/5 ML -] Polyethylene Glycol 3350 [Miralax 17 gm PO DAILY bottle 01/05/18 119 gm Btl -] Sennosides/Docusate Sodium 1 tablet PO HS tablet 01/05/18 [Pericolace -] Silver Sulfadiazine 1% Top Cr 1 applic TP DAILY jar 01/05/18 [Silvadene -] ASSESSMENT AND PLAN: 77 y/o man with h/o COPD on O 2, DM, HTN, HLP, h/o Trach , stroke with R sided residual weakness, ascending aortic aneurysm and dysphagia , and recent hospitalization for UTI and COPD exacerbation who was sent form home due to R sided pain . # H/o COPD, completed steroid taper . # Recent UTI with leukocytosis:resolved s/p ANtibiotic h/o Diastolic heart failure: no exacerbation. cont home meds # DM: cont with levemir 20 BID, novolog 5 TId and SSI. continue 20Units lemevir. # Abdominal distention due to chronic colonic atonia . no further w/u. cont laxatives DVT px: Heparin Dispo: dc to rehab pending a bed Visit type - Emergency Visit Emergency Visit: Yes ED Registration Date: 01/02/18 Care time: The patient presented to the Emergency Department on the above date and was hospitalized for further evaluation of their emergent condition. - New Patient This patient is new to me today: No - Critical Care Critical Care patient: No - Discharge Referral Referred to [facility] Med P.C.: No
[2018-01-07] MEDS ORDERED: INSULIN (NOVOLOG) ASPART 100 UNITS/ML 10ML VIAL ONE (16:47)
[2018-01-07] MEDS ORDERED: PT OWN MED DRAWER 7, Y5N ONE (20:59)
[2018-01-07] MEDS: SENNOSIDES/DOCUSATE COMBO (SENNA PLUS) TABLET (UD) PO SCH (21:24)
[2018-01-07] MEDS: HEPARIN NA (PORCINE) 5,000 UNITS/ML 1ML VIAL SQ SCH (21:24)
[2018-01-07] MEDS: ATORVASTATIN CA 40 MG TABLET (FP) PO SCH (21:24)
[2018-01-08] MEDS: HEPARIN NA (PORCINE) 5,000 UNITS/ML 1ML VIAL SQ SCH ×3 (05:58→21:09)
[2018-01-08] MEDS: NYSTATIN 500,000 UNITS/5 ML SUSPENSION PO SCH ×4 (05:58→23:14)
[2018-01-08] MEDS: GABAPENTIN 300 MG CAPSULE (FP) PO SCH ×3 (05:58→21:10)
[2018-01-08] MEDS: LIDOCAINE HCL 5% TOP OINTMENT 50 GM TUBE TP SCH ×3 (05:59→21:11)
[2018-01-08] MEDS: INSULIN (LEVEMIR) 100 UNITS/ML UNITS SQ SCH ×2 (06:03→21:09)
[2018-01-08] MEDS: INSULIN SLIDING SCALE (NOVOLOG) 1 VIAL SQ SCH ×4 (06:03→21:13)
[2018-01-08] MEDS: INSULIN (NOVOLOG) ASPART 100 UNITS/ML 10ML VIAL SQ SCH ×3 (06:07→17:01)
[2018-01-08] MEDS: ALBUTEROL SO4 2.5/IPRATROPIUM 0.5 INH SOL 3 ML VIAL.NEB. NEB SCH ×4 (07:40→20:10)
--- NOTE | 2018-01-08 09:27 | PN ---
Physical Exam: SUBJECTIVE: Patient seen and examined at bedside. Was discharged 2 days prior to SNF, issue with insurance coverage arose preventing placement at that time. Evaluation, assessment, and plan are entirely unchanged, please refer to prior D /C summary for any pertinent information. Visit type - Emergency Visit Emergency Visit: No - New Patient This patient is new to me today: No - Critical Care Critical Care patient: No
[2018-01-08] MEDS ORDERED: PT OWN MED DRAWER 7, Y5N ONE (10:21)
[2018-01-08] MEDS: ASPIRIN 81 MG CHEWABLE TABLETS PO SCH (10:23)
[2018-01-08] MEDS: LISINOPRIL 10 MG TABLET (FP) PO SCH (10:23)
[2018-01-08] MEDS: FUROSEMIDE 40 MG TABLET (FP) PO SCH (10:23)
[2018-01-08] MEDS: amLODIPine BESYLATE 10 MG TABLET (FP) PO SCH (10:23)
[2018-01-08] MEDS: ESCITALOPRAM OXALATE 10 MG TABLET (FP) PO SCH (10:23)
[2018-01-08] MEDS: CLOTRIMAZOLE 1% CREAM 15 GM TUBE TP SCH ×2 (10:24→21:10)
[2018-01-08] MEDS: SILVER SULFADIAZINE 1% TOP CREAM 50 GM JAR TP SCH (10:24)
[2018-01-08] MEDS: POLYETHYLENE GLYCOL 3350 119 GM BTL PO SCH (10:27)
--- NOTE | 2018-01-08 14:05 | PN ---
Teaching Attending Note Name of Resident: Roman Goins ATTENDING PHYSICIAN STATEMENT I saw and evaluated the patient. I reviewed the resident's note and discussed the case with the resident. I agree with the resident's findings and plan as documented. SUBJECTIVE: No new changes. OBJECTIVE: Vital Signs Temperature 98.2 F 01/08/18 08:00 Pulse Rate 67 01/08/18 08:00 Respiratory Rate 16 01/08/18 09:00 Blood Pressure 120/60 01/08/18 08:00 O2 Sat by Pulse Oximetry (%) 99 01/08/18 09:00 CBCD WBC 8.6 K/mm3 (4.0-10.0) 01/06/18 07:22 RBC 4.03 M/mm3 (4.00-5.60) 01/06/18 07:22 Hgb 12.6 GM/dL (11.7-16.9) 01/06/18 07:22 Hct 36.2 % (35.4-49) 01/06/18 07:22 MCV 89.9 fl (80-96) 01/06/18 07:22 MCHC 34.8 g/dl (32.0-35.9) 01/06/18 07:22 RDW 15.6 % (11.9-15.9) 01/06/18 07:22 Plt Count 253 K/MM3 (134-434) 01/06/18 07:22 MPV 8.7 fl (7.5-11.1) 01/06/18 07:22 CMP Sodium 138 mmol/L (136-145) 01/06/18 07:22 Potassium 3.7 mmol/L (3.5-5.1) 01/06/18 07:22 Chloride 98 mmol/L (98-107) 01/06/18 07:22 Carbon Dioxide 33 mmol/L (21-32) H 01/06/18 07:22 Anion Gap 7 MMOL/L (8-16) L 01/06/18 07:22 BUN 10 mg/dL (7-18) 01/06/18 07:22 Creatinine 0.8 mg/dL (0.55-1.3) 01/06/18 07:22 Creat Clearance w eGFR > 60 (>60) 01/06/18 07:22 Random Glucose 260 mg/dL (74-106) H 01/08/18 11:49 Calcium 8.3 mg/dL (8.5-10.1) L 01/06/18 07:22 Total Bilirubin 0.8 mg/dL (0.2-1.0) 12/30/17 06:20 AST 33 U/L (15-37) 12/30/17 06:20 ALT 111 U/L (12-78) H 12/30/17 06:20 Alkaline Phosphatase 64 U/L (45-117) 12/30/17 06:20 Total Protein 6.9 g/dl (6.4-8.2) 12/30/17 06:20 Albumin 2.6 g/dl (3.4-5.0) L 12/30/17 06:20 CARDIAC ENZYMES Creatine Kinase 278 IU/L (39-308) 12/29/17 22:05 Troponin I 0.07 ng/ml (0.00-0.05) H D 12/29/17 22:05 Current Medications Generic Name Dose Route Start Last Admin Trade Name Brayan PRN Reason Stop Dose Admin Albuterol/Ipratropium 1 amp 12/30/17 08:00 01/08/18 11:10 Duoneb - NEB 1 amp RQID FLORIN Administration Amlodipine Besylate 10 mg 12/30/17 10:00 01/08/18 10:23 Norvasc - PO 10 mg DAILY FLORIN Administration Aspirin 81 mg 12/30/17 10:00 01/08/18 10:23 Asa - PO 81 mg DAILY FLORIN Administration Atorvastatin Calcium 40 mg 12/30/17 22:00 01/07/18 21:24 Lipitor - PO 40 mg HS FLORIN Administration Clotrimazole 1 applic 12/30/17 10:00 01/08/18 10:24 Lotrimin 1% Cream - TP 1 applic BID FLORIN Administration Diltiazem HCl 120 mg 12/30/17 10:00 01/08/18 10:23 Cardizem Cd - PO 120 mg DAILY FLORIN Administration Ergocalciferol 50,000 unit 01/06/18 10:00 01/06/18 09:23 Drisdol - PO 50,000 unit Fr@1000 FLORIN Administration Escitalopram Oxalate 10 mg 12/30/17 10:00 01/08/18 10:23 Lexapro - PO 10 mg DAILY FLORIN Administration Furosemide 40 mg 12/30/17 10:00 01/08/18 10:23 Lasix - PO 40 mg DAILY FLORIN Administration Gabapentin 300 mg 12/30/17 06:00 01/08/18 13:50 Neurontin - PO 300 mg TID FLORIN Administration Heparin Sodium (Porcine) 5,000 unit 01/07/18 22:00 01/08/18 13:50 Heparin - SQ 5,000 unit TID FLORIN Administration Insulin Aspart 1 vial 12/30/17 07:00 01/08/18 11:27 Novolog Vial Sliding Scale - SQ 12 unit ACHS FLORIN Administration Protocol Insulin Aspart 5 units 12/30/17 16:30 01/08/18 11:27 Novolog Vial SQ 5 units TIDAC FLORIN Administration Protocol Insulin Detemir 20 units 12/30/17 16:51 01/08/18 06:03 Levemir Vial SQ 20 units BID@0700,2200 FLORIN Administration Lidocaine HCl 1 applic 12/30/17 06:00 01/08/18 13:50 Xylocaine 5% Top. Ointment TP 1 applic TID FLORIN Administration Lisinopril 30 mg 12/30/17 10:00 01/08/18 10:23 Prinivil PO 30 mg DAILY FLORIN Administration Nystatin 500,000 units 12/30/17 12:00 01/08/18 11:28 Nystatin Oral Suspension - PO 500,000 units Q6HPO FLORIN Administration Polyethylene Glycol 17 gm 01/02/18 14:45 01/08/18 10:27 Miralax (For Daily Use) - PO 17 grams DAILY FLORIN Administration Senna/Docusate Sodium 1 tablet 12/30/17 22:00 01/07/18 21:24 Pericolace - PO 1 tablet HS FLORIN Administration Silver Sulfadiazine 1 applic 12/30/17 10:00 01/08/18 10:24 Silvadene - TP 1 applic DAILY FLORIN Administration Home Medications Medication Instructions Recorded Escitalopram Oxalate [Lexapro -] 10 mg PO DAILY 12/10/15 Gabapentin 300 mg PO TID 12/10/15 Diltiazem Cd [Cardizem Cd -] 120 mg PO DAILY tab 10/22/16 Amlodipine Besylate 10 mg PO DAILY 12/20/17 Azelastine HCl 205.5 mcg NS BID 12/20/17 Ergocalciferol (Vitamin D2) 50,000 unit PO WEEKLY 12/20/17 [Vitamin D2] Furosemide [Lasix -] 40 mg PO DAILY 12/20/17 Lidocaine 5% Top. Ointment 1 applic TP TID 12/20/17 [Xylocaine 5% Top. Ointment -] Lisinopril [Prinivil] 30 mg PO DAILY 12/20/17 Aspirin [ASA -] 81 mg PO DAILY tab.chew 12/27/17 Atorvastatin Ca [Lipitor] 40 mg PO HS #30 tablet 12/27/17 Insulin (LOG) Aspart [NovoLOG -] 5 units SQ TID 8 Days #1 vial 12/27/17 Insulin (Levemir) [Levemir Vial] 15 units SQ BID 8 Days #1 vial 12/27/17 Albuterol 2.5/Ipratropium 0.5 1 amp NEB RQID amp 01/05/18 [Duoneb -] Clotrimazole [Lotrimin -] 1 applic TP BID tube 01/05/18 Insulin Sliding Scale [Novolog 1 vial SQ ACHS units 01/05/18 Vial Sliding Scale -] Nystatin Oral Suspension - 500,000 units PO Q6HPO cup 01/05/18 [Nystatin Oral Susp 390710 Units/5 ML -] Polyethylene Glycol 3350 [Miralax 17 gm PO DAILY bottle 01/05/18 119 gm Btl -] Sennosides/Docusate Sodium 1 tablet PO HS tablet 01/05/18 [Pericolace -] Silver Sulfadiazine 1% Top Cr 1 applic TP DAILY jar 01/05/18 [Silvadene -] PE:as per resident's note ASSESSMENT AND PLAN: 77 y/o man with h/o COPD on O 2, DM, HTN, HLP, h/o Trach , stroke with R sided residual weakness, ascending aortic aneurysm and dysphagia , and recent hospitalization for UTI and COPD exacerbation who was sent form home due to R sided pain . # H/o COPD, completed steroid taper . # Recent UTI with leukocytosis:resolved s/p ANtibiotic h/o Diastolic heart failure: no exacerbation. cont home meds # DM: cont with levemir 20 BID, novolog 5 TId and SSI. continue 20Units lemevir. # Abdominal distention due to chronic colonic atonia . no further w/u. cont laxatives DVT px: Heparin Dispo: dc to rehab pending a bed
[2018-01-08] MEDS: ATORVASTATIN CA 40 MG TABLET (FP) PO SCH (21:10)
[2018-01-08] MEDS: SENNOSIDES/DOCUSATE COMBO (SENNA PLUS) TABLET (UD) PO SCH (21:10)
[2018-01-08] MEDS ORDERED: INSULIN (NOVOLOG) ASPART 100 UNITS/ML 10ML VIAL ONE (21:14)
[2018-01-09] MEDS: HEPARIN NA (PORCINE) 5,000 UNITS/ML 1ML VIAL SQ SCH ×3 (05:49→21:08)
[2018-01-09] MEDS: GABAPENTIN 300 MG CAPSULE (FP) PO SCH ×3 (05:50→21:08)
[2018-01-09] MEDS: NYSTATIN 500,000 UNITS/5 ML SUSPENSION PO SCH ×4 (05:50→23:19)
[2018-01-09] MEDS: LIDOCAINE HCL 5% TOP OINTMENT 50 GM TUBE TP SCH ×3 (05:50→21:10)
[2018-01-09] MEDS: INSULIN (LEVEMIR) 100 UNITS/ML UNITS SQ SCH ×2 (06:31→21:08)
[2018-01-09] MEDS: INSULIN SLIDING SCALE (NOVOLOG) 1 VIAL SQ SCH ×4 (06:32→21:28)
[2018-01-09] MEDS: INSULIN (NOVOLOG) ASPART 100 UNITS/ML 10ML VIAL SQ SCH ×3 (06:32→17:31)
[2018-01-09] MEDS ORDERED: INSULIN (NOVOLOG) ASPART 100 UNITS/ML 10ML VIAL ONE (06:35)
[2018-01-09] MEDS: ALBUTEROL SO4 2.5/IPRATROPIUM 0.5 INH SOL 3 ML VIAL.NEB. NEB SCH ×4 (07:51→20:45)
[2018-01-09] MEDS: POLYETHYLENE GLYCOL 3350 119 GM BTL PO SCH (09:44)
[2018-01-09] MEDS: LISINOPRIL 10 MG TABLET (FP) PO SCH (09:44)
[2018-01-09] MEDS: amLODIPine BESYLATE 10 MG TABLET (FP) PO SCH (09:44)
[2018-01-09] MEDS: ESCITALOPRAM OXALATE 10 MG TABLET (FP) PO SCH (09:44)
[2018-01-09] MEDS: ASPIRIN 81 MG CHEWABLE TABLETS PO SCH (09:45)
[2018-01-09] MEDS: SILVER SULFADIAZINE 1% TOP CREAM 50 GM JAR TP SCH (09:45)
[2018-01-09] MEDS: FUROSEMIDE 40 MG TABLET (FP) PO SCH (09:45)
[2018-01-09] MEDS: CLOTRIMAZOLE 1% CREAM 15 GM TUBE TP SCH ×2 (09:45→21:10)
--- NOTE | 2018-01-09 13:01 | PN ---
Physical Exam: SUBJECTIVE: Patient seen and examined at bedside. Was discharged 3 days prior to SNF, issue with insurance coverage arose preventing placement at that time. Evaluation, assessment, and plan are entirely unchanged, please refer to prior D /C summary for any pertinent information. Visit type - Emergency Visit Emergency Visit: No - New Patient This patient is new to me today: No - Critical Care Critical Care patient: No
--- NOTE | 2018-01-09 18:18 | PN ---
Teaching Attending Note Name of Resident: Roman Goins ATTENDING PHYSICIAN STATEMENT I saw and evaluated the patient. I reviewed the resident's note and discussed the case with the resident. I agree with the resident's findings and plan as documented. SUBJECTIVE: Patient is comfortable with no acute distress. no new changes OBJECTIVE: Vital Signs Temperature 98.2 F 01/09/18 15:08 Pulse Rate 72 01/09/18 15:08 Respiratory Rate 20 01/09/18 15:08 Blood Pressure 112/58 01/09/18 15:08 O2 Sat by Pulse Oximetry (%) 98 01/09/18 09:00 GENERAL: Awake, alert, in no acute distress. HEAD: NCAT, EYES: PERRL, THROAT: Oropharynx clear without exudates. Moist mucous membranes. LUNGS: Cta bL, NO W/R/R HEART: Regular rate and rhythm, normal S1 and S2 without murmur. ABDOMEN: Soft, nontender, Distended, Tympanic, + bowel sounds, Reducible Umbilical hernia present, no guarding, no rebound BACK: Stage 2 healing ulcer over the Right Gluteus, patient presented with that from home. no discharge of bleeding MUSCULOSKELETAL: No CVA tenderness. EXTREMITIES: 2+ pulses, No calf tenderness. 2+ peripheral edema NEUROLOGICAL: Residual Right facial droop, Other remaining Cranial nerves II- XII intact. Slurred speech. C5-T1 and L4-S1 gross sensation intact. RUE muscle strength 2/5, LUE muscle strength 4/5, RLE muscle strength 1/5, LLE Muscle strength 4/5 SKIN: Warm, dry, no other rashes or lesions noted. : dry lesion on his glans penis WBC 8.6 K/mm3 (4.0-10.0) 01/06/18 07:22 RBC 4.03 M/mm3 (4.00-5.60) 01/06/18 07:22 Hgb 12.6 GM/dL (11.7-16.9) 01/06/18 07:22 Hct 36.2 % (35.4-49) 01/06/18 07:22 MCV 89.9 fl (80-96) 01/06/18 07:22 MCHC 34.8 g/dl (32.0-35.9) 01/06/18 07:22 RDW 15.6 % (11.9-15.9) 01/06/18 07:22 Plt Count 253 K/MM3 (134-434) 01/06/18 07:22 MPV 8.7 fl (7.5-11.1) 01/06/18 07:22 CMP Sodium 138 mmol/L (136-145) 01/06/18 07:22 Potassium 3.7 mmol/L (3.5-5.1) 01/06/18 07:22 Chloride 98 mmol/L (98-107) 01/06/18 07:22 Carbon Dioxide 33 mmol/L (21-32) H 01/06/18 07:22 Anion Gap 7 MMOL/L (8-16) L 01/06/18 07:22 BUN 10 mg/dL (7-18) 01/06/18 07:22 Creatinine 0.8 mg/dL (0.55-1.3) 01/06/18 07:22 Creat Clearance w eGFR > 60 (>60) 01/06/18 07:22 Random Glucose 260 mg/dL (74-106) H 01/08/18 11:49 Calcium 8.3 mg/dL (8.5-10.1) L 01/06/18 07:22 Total Bilirubin 0.8 mg/dL (0.2-1.0) 12/30/17 06:20 AST 33 U/L (15-37) 12/30/17 06:20 ALT 111 U/L (12-78) H 12/30/17 06:20 Alkaline Phosphatase 64 U/L (45-117) 12/30/17 06:20 Total Protein 6.9 g/dl (6.4-8.2) 12/30/17 06:20 Albumin 2.6 g/dl (3.4-5.0) L 12/30/17 06:20 CARDIAC ENZYMES Creatine Kinase 278 IU/L (39-308) 12/29/17 22:05 Troponin I 0.07 ng/ml (0.00-0.05) H D 12/29/17 22:05 Current Medications Generic Name Dose Route Start Last Admin Trade Name Freq PRN Reason Stop Dose Admin Albuterol/Ipratropium 1 amp 12/30/17 08:00 01/09/18 16:15 Duoneb - NEB 1 amp RQID FLORIN Administration Amlodipine Besylate 10 mg 12/30/17 10:00 01/09/18 09:44 Norvasc - PO 10 mg DAILY FLORIN Administration Aspirin 81 mg 12/30/17 10:00 01/09/18 09:45 Asa - PO 81 mg DAILY FLORIN Administration Atorvastatin Calcium 40 mg 12/30/17 22:00 01/08/18 21:10 Lipitor - PO 40 mg HS FLORIN Administration Clotrimazole 1 applic 12/30/17 10:00 01/09/18 09:45 Lotrimin 1% Cream - TP 1 applic BID FLORIN Administration Diltiazem HCl 120 mg 12/30/17 10:00 01/09/18 09:45 Cardizem Cd - PO 120 mg DAILY FLORIN Administration Ergocalciferol 50,000 unit 01/06/18 10:00 01/06/18 09:23 Drisdol - PO 50,000 unit Fr@1000 FLORIN Administration Escitalopram Oxalate 10 mg 12/30/17 10:00 01/09/18 09:44 Lexapro - PO 10 mg DAILY FLORIN Administration Furosemide 40 mg 12/30/17 10:00 01/09/18 09:45 Lasix - PO 40 mg DAILY FLORIN Administration Gabapentin 300 mg 12/30/17 06:00 01/09/18 14:16 Neurontin - PO 300 mg TID FLORIN Administration Heparin Sodium (Porcine) 5,000 unit 01/07/18 22:00 01/09/18 14:15 Heparin - SQ 5,000 unit TID FLORIN Administration Insulin Aspart 1 vial 12/30/17 07:00 01/09/18 17:30 Novolog Vial Sliding Scale - SQ 4 unit ACHS FLORIN Administration Protocol Insulin Aspart 5 units 12/30/17 16:30 01/09/18 17:31 Novolog Vial SQ 5 units TIDAC [facility] Administration Protocol Insulin Detemir 20 units 12/30/17 16:51 01/09/18 06:31 Levemir Vial SQ 20 units BID@0700,2200 FLORIN Administration Lidocaine HCl 1 applic 12/30/17 06:00 01/09/18 14:16 Xylocaine 5% Top. Ointment TP 1 applic TID FLORIN Administration Lisinopril 30 mg 12/30/17 10:00 01/09/18 09:44 Prinivil PO 30 mg DAILY FLORIN Administration Nystatin 500,000 units 12/30/17 12:00 01/09/18 17:31 Nystatin Oral Suspension - PO 500,000 units Q6HPO FLORIN Administration Polyethylene Glycol 17 gm 01/02/18 14:45 01/09/18 09:44 Miralax (For Daily Use) - PO 17 grams DAILY [facility]ORIN Administration Senna/Docusate Sodium 1 tablet 12/30/17 22:00 01/08/18 21:10 Pericolace - PO 1 tablet HS FLORIN Administration Silver Sulfadiazine 1 applic 12/30/17 10:00 01/09/18 09:45 Silvadene - TP 1 applic DAILY FLORIN Administration Home Medications Medication Instructions Recorded Escitalopram Oxalate [Lexapro -] 10 mg PO DAILY 12/10/15 Gabapentin 300 mg PO TID 12/10/15 Diltiazem Cd [Cardizem Cd -] 120 mg PO DAILY tab 10/22/16 Amlodipine Besylate 10 mg PO DAILY 12/20/17 Azelastine HCl 205.5 mcg NS BID 12/20/17 Ergocalciferol (Vitamin D2) 50,000 unit PO WEEKLY 12/20/17 [Vitamin D2] Furosemide [Lasix -] 40 mg PO DAILY 12/20/17 Lidocaine 5% Top. Ointment 1 applic TP TID 12/20/17 [Xylocaine 5% Top. Ointment -] Lisinopril [Prinivil] 30 mg PO DAILY 12/20/17 Aspirin [ASA -] 81 mg PO DAILY tab.chew 12/27/17 Atorvastatin Ca [Lipitor] 40 mg PO HS #30 tablet 12/27/17 Insulin (LOG) Aspart [NovoLOG -] 5 units SQ TID 8 Days #1 vial 12/27/17 Insulin (Levemir) [Levemir Vial] 15 units SQ BID 8 Days #1 vial 12/27/17 Albuterol 2.5/Ipratropium 0.5 1 amp NEB RQID amp 01/05/18 [Duoneb -] Clotrimazole [Lotrimin -] 1 applic TP BID tube 01/05/18 Insulin Sliding Scale [Novolog 1 vial SQ ACHS units 01/05/18 Vial Sliding Scale -] Nystatin Oral Suspension - 500,000 units PO Q6HPO cup 01/05/18 [Nystatin Oral Susp 374691 Units/5 ML -] Polyethylene Glycol 3350 [Miralax 17 gm PO DAILY bottle 01/05/18 119 gm Btl -] Sennosides/Docusate Sodium 1 tablet PO HS tablet 01/05/18 [Pericolace -] Silver Sulfadiazine 1% Top Cr 1 applic TP DAILY jar 01/05/18 [Silvadene -] ASSESSMENT AND PLAN: 77 y/o man with h/o COPD on O 2, DM, HTN, HLP, h/o Trach , stroke with R sided residual weakness, ascending aortic aneurysm and dysphagia , and recent hospitalization for UTI and COPD exacerbation who was sent form home due to R sided pain . # H/o COPD, completed steroid taper . # Recent UTI with leukocytosis:resolved s/p ANtibiotic h/o Diastolic heart failure: no exacerbation. cont home meds # DM: cont with levemir 20 BID, novolog 5 TId and SSI. continue 20Units lemevir. # Abdominal distention due to chronic colonic atonia . no further w/u. cont laxatives DVT px: Heparin Dispo: dc to rehab pending a bed
[2018-01-09] MEDS ORDERED: PT OWN MED DRAWER 7, Y5N ONE (20:27)
[2018-01-09] MEDS: ATORVASTATIN CA 40 MG TABLET (FP) PO SCH (21:08)
[2018-01-09] MEDS: SENNOSIDES/DOCUSATE COMBO (SENNA PLUS) TABLET (UD) PO SCH (21:08)
[2018-01-10] MEDS: GABAPENTIN 300 MG CAPSULE (FP) PO SCH (05:20)
[2018-01-10] MEDS: NYSTATIN 500,000 UNITS/5 ML SUSPENSION PO SCH ×2 (05:21→12:17)
[2018-01-10] MEDS: HEPARIN NA (PORCINE) 5,000 UNITS/ML 1ML VIAL SQ SCH (05:21)
[2018-01-10] MEDS: LIDOCAINE HCL 5% TOP OINTMENT 50 GM TUBE TP SCH (05:21)
[2018-01-10] MEDS: INSULIN (LEVEMIR) 100 UNITS/ML UNITS SQ SCH (06:32)
[2018-01-10] MEDS: INSULIN SLIDING SCALE (NOVOLOG) 1 VIAL SQ SCH ×2 (06:33→10:51)
[2018-01-10] MEDS: INSULIN (NOVOLOG) ASPART 100 UNITS/ML 10ML VIAL SQ SCH ×2 (06:33→10:51)
[2018-01-10] MEDS: ALBUTEROL SO4 2.5/IPRATROPIUM 0.5 INH SOL 3 ML VIAL.NEB. NEB SCH (08:00)
--- NOTE | 2018-01-10 08:20 | PN ---
Teaching Attending Note Name of Resident: Roman Goins ATTENDING PHYSICIAN STATEMENT I saw and evaluated the patient. I reviewed the resident's note and discussed the case with the resident. I agree with the resident's findings and plan as documented. SUBJECTIVE: No new changes. waiting for a bed to rehab. OBJECTIVE: Vital Signs Temperature 98.1 F 01/10/18 05:30 Pulse Rate 63 01/10/18 05:30 Respiratory Rate 20 01/10/18 05:30 Blood Pressure 135/70 01/10/18 05:30 O2 Sat by Pulse Oximetry (%) 98 01/09/18 20:06 GENERAL: Awake, alert, in no acute distress. HEAD: NCAT, EYES: PERRL, THROAT: Oropharynx clear without exudates. Moist mucous membranes. LUNGS: Cta bL, NO W/R/R HEART: Regular rate and rhythm, normal S1 and S2 without murmur. ABDOMEN: Soft, nontender, Distended, Tympanic, + bowel sounds, Reducible Umbilical hernia present, no guarding, no rebound BACK: Stage 2 healing ulcer over the Right Gluteus ( present from home) no discharge of bleeding MUSCULOSKELETAL: No CVA tenderness. EXTREMITIES: 2+ pulses, No calf tenderness. 2+ peripheral edema NEUROLOGICAL: Residual Right facial droop, Other remaining Cranial nerves II- XII intact. Slurred speech. C5-T1 and L4-S1 gross sensation intact. RUE muscle strength 2/5, LUE muscle strength 4/5, RLE muscle strength 1/5, LLE Muscle strength 4/5 SKIN: Warm, dry, no other rashes or lesions noted. : dry lesion on his glans penis CBCD WBC 8.6 K/mm3 (4.0-10.0) 01/06/18 07:22 RBC 4.03 M/mm3 (4.00-5.60) 01/06/18 07:22 Hgb 12.6 GM/dL (11.7-16.9) 01/06/18 07:22 Hct 36.2 % (35.4-49) 01/06/18 07:22 MCV 89.9 fl (80-96) 01/06/18 07:22 MCHC 34.8 g/dl (32.0-35.9) 01/06/18 07:22 RDW 15.6 % (11.9-15.9) 01/06/18 07:22 Plt Count 253 K/MM3 (134-434) 01/06/18 07:22 MPV 8.7 fl (7.5-11.1) 01/06/18 07:22 CMP Sodium 138 mmol/L (136-145) 01/06/18 07:22 Potassium 3.7 mmol/L (3.5-5.1) 01/06/18 07:22 Chloride 98 mmol/L (98-107) 01/06/18 07:22 Carbon Dioxide 33 mmol/L (21-32) H 01/06/18 07:22 Anion Gap 7 MMOL/L (8-16) L 01/06/18 07:22 BUN 10 mg/dL (7-18) 01/06/18 07:22 Creatinine 0.8 mg/dL (0.55-1.3) 01/06/18 07:22 Creat Clearance w eGFR > 60 (>60) 01/06/18 07:22 Random Glucose 260 mg/dL (74-106) H 01/08/18 11:49 Calcium 8.3 mg/dL (8.5-10.1) L 01/06/18 07:22 Total Bilirubin 0.8 mg/dL (0.2-1.0) 12/30/17 06:20 AST 33 U/L (15-37) 12/30/17 06:20 ALT 111 U/L (12-78) H 12/30/17 06:20 Alkaline Phosphatase 64 U/L (45-117) 12/30/17 06:20 Total Protein 6.9 g/dl (6.4-8.2) 12/30/17 06:20 Albumin 2.6 g/dl (3.4-5.0) L 12/30/17 06:20 CARDIAC ENZYMES Creatine Kinase 278 IU/L (39-308) 12/29/17 22:05 Troponin I 0.07 ng/ml (0.00-0.05) H D 12/29/17 22:05 Current Medications Generic Name Dose Route Start Last Admin Trade Name Freq PRN Reason Stop Dose Admin Albuterol/Ipratropium 1 amp 12/30/17 08:00 01/09/18 20:45 Duoneb - NEB 1 amp RQID FLORIN Administration Amlodipine Besylate 10 mg 12/30/17 10:00 01/09/18 09:44 Norvasc - PO 10 mg DAILY FLORIN Administration Aspirin 81 mg 12/30/17 10:00 01/09/18 09:45 Asa - PO 81 mg DAILY FLORIN Administration Atorvastatin Calcium 40 mg 12/30/17 22:00 01/09/18 21:08 Lipitor - PO 40 mg HS FLORIN Administration Clotrimazole 1 applic 12/30/17 10:00 01/09/18 21:10 Lotrimin 1% Cream - TP 1 applic BID FLORIN Administration Diltiazem HCl 120 mg 12/30/17 10:00 01/09/18 09:45 Cardizem Cd - PO 120 mg DAILY FLORIN Administration Ergocalciferol 50,000 unit 01/06/18 10:00 01/06/18 09:23 Drisdol - PO 50,000 unit Fr@1000 FLORIN Administration Escitalopram Oxalate 10 mg 12/30/17 10:00 01/09/18 09:44 Lexapro - PO 10 mg DAILY FLORIN Administration Furosemide 40 mg 12/30/17 10:00 01/09/18 09:45 Lasix - PO 40 mg DAILY FLORIN Administration Gabapentin 300 mg 12/30/17 06:00 01/10/18 05:20 Neurontin - PO 300 mg TID FLORIN Administration Heparin Sodium (Porcine) 5,000 unit 01/07/18 22:00 01/10/18 05:21 Heparin - SQ 5,000 unit TID FLORIN Administration Insulin Aspart 1 vial 12/30/17 07:00 01/10/18 06:33 Novolog Vial Sliding Scale - SQ Not Given ACHS [facility] Protocol Insulin Aspart 5 units 12/30/17 16:30 01/10/18 06:33 Novolog Vial SQ Not Given TIDAC [facility] Protocol Insulin Detemir 20 units 12/30/17 16:51 01/10/18 06:32 Levemir Vial SQ 20 units BID@0700,2200 FLORIN Administration Lidocaine HCl 1 applic 12/30/17 06:00 01/10/18 05:21 Xylocaine 5% Top. Ointment TP 1 applic TID FLORIN Administration Lisinopril 30 mg 12/30/17 10:00 01/09/18 09:44 Prinivil PO 30 mg DAILY FLORIN Administration Nystatin 500,000 units 12/30/17 12:00 01/10/18 05:21 Nystatin Oral Suspension - PO 500,000 units Q6HPO FLORIN Administration Polyethylene Glycol 17 gm 01/02/18 14:45 01/09/18 09:44 Miralax (For Daily Use) - PO 17 grams DAILY FLORIN Administration Senna/Docusate Sodium 1 tablet 12/30/17 22:00 01/09/18 21:08 Pericolace - PO 1 tablet HS FLORIN Administration Silver Sulfadiazine 1 applic 12/30/17 10:00 01/09/18 09:45 Silvadene - TP 1 applic DAILY FLORIN Administration Home Medications Medication Instructions Recorded Escitalopram Oxalate [Lexapro -] 10 mg PO DAILY 12/10/15 Gabapentin 300 mg PO TID 12/10/15 Diltiazem Cd [Cardizem Cd -] 120 mg PO DAILY tab 10/22/16 Amlodipine Besylate 10 mg PO DAILY 12/20/17 Azelastine HCl 205.5 mcg NS BID 12/20/17 Ergocalciferol (Vitamin D2) 50,000 unit PO WEEKLY 12/20/17 [Vitamin D2] Furosemide [Lasix -] 40 mg PO DAILY 12/20/17 Lidocaine 5% Top. Ointment 1 applic TP TID 12/20/17 [Xylocaine 5% Top. Ointment -] Lisinopril [Prinivil] 30 mg PO DAILY 12/20/17 Aspirin [ASA -] 81 mg PO DAILY tab.chew 12/27/17 Atorvastatin Ca [Lipitor] 40 mg PO HS #30 tablet 12/27/17 Insulin (LOG) Aspart [NovoLOG -] 5 units SQ TID 8 Days #1 vial 12/27/17 Insulin (Levemir) [Levemir Vial] 15 units SQ BID 8 Days #1 vial 12/27/17 Albuterol 2.5/Ipratropium 0.5 1 amp NEB RQID amp 01/05/18 [Duoneb -] Clotrimazole [Lotrimin -] 1 applic TP BID tube 01/05/18 Insulin Sliding Scale [Novolog 1 vial SQ ACHS units 01/05/18 Vial Sliding Scale -] Nystatin Oral Suspension - 500,000 units PO Q6HPO cup 01/05/18 [Nystatin Oral Susp 389660 Units/5 ML -] Polyethylene Glycol 3350 [Miralax 17 gm PO DAILY bottle 01/05/18 119 gm Btl -] Sennosides/Docusate Sodium 1 tablet PO HS tablet 01/05/18 [Pericolace -] Silver Sulfadiazine 1% Top Cr 1 applic TP DAILY jar 01/05/18 [Silvadene -] ASSESSMENT AND PLAN: 77 y/o man with h/o COPD on O 2, DM, HTN, HLP, h/o Trach , stroke with R sided residual weakness, ascending aortic aneurysm and dysphagia , and recent hospitalization for UTI and COPD exacerbation who was sent form home due to R sided pain . # H/o COPD, completed steroid taper . # Recent UTI with leukocytosis:resolved s/p ANtibiotic h/o Diastolic heart failure: no exacerbation. cont home meds # DM: cont with levemir 20 BID, novolog 5 TId and SSI. continue 20Units lemevir. # Abdominal distention due to chronic colonic atonia . no further w/u. cont laxatives DVT px: Heparin dc patient to rehab today
[2018-01-10] MEDS: LISINOPRIL 10 MG TABLET (FP) PO SCH (10:00)
[2018-01-10] MEDS: POLYETHYLENE GLYCOL 3350 119 GM BTL PO SCH (10:01)
[2018-01-10] MEDS: ESCITALOPRAM OXALATE 10 MG TABLET (FP) PO SCH (10:01)
[2018-01-10] MEDS: amLODIPine BESYLATE 10 MG TABLET (FP) PO SCH (10:01)
[2018-01-10] MEDS: FUROSEMIDE 40 MG TABLET (FP) PO SCH (10:01)
[2018-01-10] MEDS: ASPIRIN 81 MG CHEWABLE TABLETS PO SCH (10:01)
[2018-01-10] MEDS: CLOTRIMAZOLE 1% CREAM 15 GM TUBE TP SCH (10:01)
[2018-01-10] MEDS: SILVER SULFADIAZINE 1% TOP CREAM 50 GM JAR TP SCH (10:02)
[2018-01-10 10:21] VITALS: BP 128/65; PULSE 67; TEMP 98.4
--- NOTE | 2018-01-10 10:43 | DS ---
Physical Exam: SUBJECTIVE: Patient seen and examined at bedside. No complaints. Has full capacity, amenable to SNF placement. OBJECTIVE: Vital Signs Period Temp Pulse Resp BP Sys/Pham Pulse Ox Last 24 Hr 98.1 F-98.8 F 63-72 20-20 107-135/52-70 96-98 PHYSICAL EXAM GENERAL: A&Ox3, NAD HEAD: NC/AT EYES: PERRLA, EOMI, sclera anicteric HEENT: MMM NECK: Trachea midline, full range of motion, supple, no JVD LUNGS: tracheal breath sounds HEART: normal S1S2, RRR, no m/r/g ABDOMEN: increased distention, bowel sounds not appreciated, tympanitic, non- tender, reducible umbilical hernia EXTREMITIES: 2+ pulses, warm, well-perfused, 1+ pitting edema in b/l LE NEUROLOGICAL: -CN exam notable for significant right and mild left facial droop, dysarthria, otherwise intact -strength 4/5 in LUE and LLE, 0/5 in proximal RUE, 2/5 in distal RUE, 0/5 in proximal RLE, 1/5 in distal RLE -sensation grossly intact -could not evaluate FtN or HtS -could not elicit biceps or patellar reflexes -upgoing plantars b/l R>L LABS Laboratory Results - last 24 hr 01/09/18 01/09/18 01/09/18 11:16 16:42 20:44 POC Glucometer 270 245 259 01/10/18 05:11 POC Glucometer 137 HOSPITAL COURSE: Date of Admission:12/29/17 Patient is a 77 y/o M w/ PMHx CVA w/ residual R-sided deficits, chronic dysphagia w/ prior trach, COPD on home O2, diastolic CHF, T2DM, HTN, HLD, who was hospitalized 12/20-12/27 for UTI and COPD exacerbation, discharged home on antibiotics and steroid taper after refusing SNF. Brought back to ED on 12/29/17 d /t group home supervisor and family being unable to manage his chronic disabilities. All studies and clinical examinations were unrevealing. Patient completed ABx and steroids, otherwise maintained on discharge regimen from prior hospitalization. Discharged on 01/10/18 to SNF d/t being unsafe to discharge home. Please see prior discharge summary for any further details. Date of Discharge: 01/10/18 Minutes to complete discharge: 40 Discharge Summary Reason For Visit: ACUTE EXACERBATION COPD Current Active Problems COPD exacerbation (Acute) Condition: Stable - Instructions Diet, Activity, Other Instructions: You were hospitalized for continuing disability from your previous hospitalization requiring placement in a [facility] facility. You were continued on your treatments from your previous hospitalization and tapered off of steroids. Referrals Referrals have been made on your behalf for follow up appointments at primary care clinic, with pulmonology (Dr. Diane) for your COPD, and with endocrinology (Dr. Angela) for your diabetes, for a week from your discharge. A referral has also been made with gastroenterology (Dr. Easley) for one month from discharge. Please keep these appointments. Medical recommendations You are being discharged to a [facility] facility and provided with the medications you need there. Do not change the medications you take before seeing your doctors. If you experience any new fever, chills, chest pain, difficulty breathing, weakness, changes in sensation such as numbness or tingling, or any other new symptoms, please return to the Emergency Department. Referrals: [facility] [place] [Provider Group] - 1 Week Dhiraj Diane MD [Staff Physician] - 1 Week Edenilson Easley MD [Staff Physician] - 1 Month Bruno Angela MD [Staff Physician] - 1 Week Disposition: [facility] - Home Medications Comprehensive Discharge Medication List: Ambulatory Orders Escitalopram Oxalate [Lexapro -] 10 mg PO DAILY 12/10/15 Gabapentin 300 mg PO TID 12/10/15 Diltiazem Cd [Cardizem Cd -] 120 mg PO DAILY tab 10/22/16 Amlodipine Besylate 10 mg PO DAILY 12/20/17 Azelastine HCl 205.5 mcg NS BID 12/20/17 Ergocalciferol (Vitamin D2) [Vitamin D2] 50,000 unit PO WEEKLY 12/20/17 Furosemide [Lasix -] 40 mg PO DAILY 12/20/17 Lidocaine 5% Top. Ointment [Xylocaine 5% Top. Ointment -] 1 applic TP TID Lisinopril [Prinivil] 30 mg PO DAILY 12/20/17 Aspirin [ASA -] 81 mg PO DAILY tab.chew 12/27/17 Atorvastatin Ca [Lipitor] 40 mg PO HS #30 tablet 12/27/17 Insulin (LOG) Aspart [NovoLOG -] 5 units SQ TID 8 Days #1 vial 12/27/17 Insulin (Levemir) [Levemir Vial] 15 units SQ BID 8 Days #1 vial 12/27/17 Albuterol 2.5/Ipratropium 0.5 [Duoneb -] 1 amp NEB RQID amp 01/05/18 Clotrimazole [Lotrimin -] 1 applic TP BID tube 01/05/18 Insulin Sliding Scale [Novolog Vial Sliding Scale -] 1 vial SQ ACHS units 01/05 Nystatin Oral Suspension - [Nystatin Oral Susp 787499 Units/5 ML -] 500,000 units PO Q6HPO cup 01/05/18 Polyethylene Glycol 3350 [Miralax 119 gm Btl -] 17 gm PO DAILY bottle 01/05/18 Sennosides/Docusate Sodium [Pericolace -] 1 tablet PO HS tablet 01/05/18 Silver Sulfadiazine 1% Top Cr [Silvadene -] 1 applic TP DAILY jar 01/05/18 This patient is new to me today: No Emergency Visit: No Critical Care patient: No - Discharge Referral Referred to [facility] No
== END 2018-01-10 14:20 | DRG 191 ==
LOC: JER 17:35 → JERBED 12-30 00:41 → J6S 12-30 14:10 → OBSVTOIN 01-02 12:46
PROVIDERS: ADMIT Internal Medicine; ATTEND Internal Medicine
DX: J44.1 Chronic obstructive pulmonary disease with (acute) exacerbation (principal); I69.351 Hemiplegia and hemiparesis following cerebral infarction affecting right dominant side; I50.30 Unspecified diastolic (congestive) heart failure; B37.0 Candidal stomatitis; E78.00 Pure hypercholesterolemia, unspecified; E11.65 Type 2 diabetes mellitus with hyperglycemia; D72.829 Elevated white blood cell count, unspecified; R13.10 Dysphagia, unspecified; R21 Rash and other nonspecific skin eruption; I11.0 Hypertensive heart disease with heart failure; L89.322 Pressure ulcer of left buttock, stage 2; L89.312 Pressure ulcer of right buttock, stage 2; B35.6 Tinea cruris; K42.9 Umbilical hernia without obstruction or gangrene; R26.81 Unsteadiness on feet; E66.9 Obesity, unspecified; I71.2 Thoracic aortic aneurysm, without rupture; R14.0 Abdominal distension (gaseous); Z73.6 Limitation of activities due to disability; Z99.81 Dependence on supplemental oxygen; Z68.35 Body mass index [BMI] 35.0-35.9, adult
CPT/HCPCS: 36415; 71045-TC-FY; 74018-TC-FY; 80048; 80053; 81003; 81015; 82550; 82553; 82947; 82962; 83735; 83880; 84100; 84484; 85025; 85610; 87045; 87046; 87324; 87449; 93005; 93010; 94640; 97116-GP; 97161-GP; 99285-25; E0186; G0378; J1644; J7620

== ENCOUNTER 2018-02-28 19:31 | Inpatient (IN) | payer OTHER ==
--- NOTE | 2018-02-28 20:02 | PDOC ---
History of Present Illness - General Stated Complaint: FEVER Time Seen by Provider: 02/28/18 19:57 History Source: Patient - History of Present Illness Initial Comments: 02/28/18 20:21 The patient is a 77 year old male with a PMH of HTN, HLD, DM, COPD, CHF ( Diastolic dysfunction), Ischemic CVA (Residual right sided weakness), and Chronic Dysphagia (Trach in the past) who was brought in by from [facility] for a two day h/o fever (Tmax 103) and increased O2 demand. Patient drowsy but arousable, c/o being hot and tired. Patient is at [facility] for rehabilitation as family is not able to manage his chronic medical issues. The patient denies chest pain, abdominal pain, nausea/vomiting, diarrhea/ constipation,dysuria/hematuria, numbness/tingling. NKDA PMD: Dr. Bautista As per EMR, patient is at [facility] following an following a extended hospitalization at our facility in 12/2017 for placement issues. Patient was previously evaluated 12/20/17-12/27/17 for UTI and COPD exacerbation. Past History - Past Medical History Allergies/Adverse Reactions: Allergies Allergy/AdvReac Type Severity Reaction Status Date / Time No Known Allergies Allergy Verified 03/01/18 00:00 Home Medications: Ambulatory Orders Acetaminophen [Tylenol -] 650 mg PO Q4H PRN 02/28/18 Albuterol 2.5/Ipratropium 0.5 [Duoneb -] 1 neb IH QID 02/28/18 Amlodipine Besylate [Norvasc -] 10 mg PO DAILY 02/28/18 Amox-Tr/K Cl [Augmentin - 875Mg Tablet] 1 tab PO BID 02/28/18 Ascorbic Acid [Vitamin C -] 500 mg PO DAILY 02/28/18 Aspirin [ASA -] 81 mg PO DAILY 02/28/18 Atorvastatin Ca [Lipitor] 40 mg PO HS 02/28/18 Azelastine HCl 1 spr NS BID 02/28/18 Clotrimazole [Lotrimin 1% Solution -] 1 applic TP BID 02/28/18 Diltiazem [Cardizem -] 60 mg PO BID 02/28/18 Docusate Sodium [Colace -] 200 mg PO DAILY 02/28/18 Ergocalciferol [Vitamin D2] 50,000 unit PO WEEKLY 02/28/18 Escitalopram Oxalate [Lexapro -] 10 mg PO DAILY 02/28/18 Furosemide [Lasix -] 40 mg PO DAILY 02/28/18 Gabapentin [Neurontin -] 300 mg PO TID 02/28/18 Insulin (LOG) Aspart [NovoLOG -] 0 units SQ BID 02/28/18 Insulin Detemir [Levemir Flextouch] 17 unit SQ HS 02/28/18 Lidocaine 5% Top. Ointment [Xylocaine 5% Top. Ointment] 1 applic TP TID Lisinopril 30 mg PO DAILY 02/28/18 Nystatin 100,000 unit PO QID 02/28/18 Sennosides [Senna] 2 tab PO HS 02/28/18 Sennosides/Docusate Sodium [Senexon-S Tablet] 1 each PO HS 02/28/18 Zinc Oxide 20% Topical Oint 454 gm NR BID 02/28/18 Aa/Hydrolyzed Collagen, Whey [Lps 15-30 Liquid] 30 ml PO DAILY 03/01/18 Methyl Salicylate/Menth/Camph [Bengay Ultra Strength Cream] 1 applic TP TID 11/09 Anemia: No Asthma: No Cancer: No Cardiac Disorders: Yes CVA: Yes (rt side hemiparesis) COPD: Yes CHF: Yes Dementia: No Diabetes: Yes GI Disorders: No Disorders: No HTN: Yes Hypercholesterolemia: Yes Liver Disease: No Seizures: No Thyroid Disease: No - Surgical History Abdominal Surgery: No Appendectomy: No Cardiac Surgery: No Cholecystectomy: No Lung Surgery: No Neurologic Surgery: No Orthopedic Surgery: No - Immunization History Immunization Up to Date: Yes - Suicide/Smoking/Psychosocial Hx Smoking Status: No Smoking History: Unknown if ever smoked Have you smoked in the past 12 months: No Number of Cigarettes Smoked Daily: 0 If you are a former smoker, when did you quit?: 6 years ago Hx Alcohol Use: No Drug/Substance Use Hx: No Substance Use Type: None Hx Substance Use Treatment: No Review of Systems - Review of Systems Constitutional: Yes: Fever. No: Chills Respiratory: No: Cough, Hemoptysis Cardiac (ROS): No: Chest Pain, Lightheadedness, Palpitations, Syncope ABD/GI: No: Constipated, Diarrhea, Nausea, Vomiting : No: Burning, Dysuria *Physical Exam - Vital Signs Last Vital Signs Temp Pulse Resp BP Pulse Ox 98.9 F 94 H 20 138/84 97 02/28/18 19:50 02/28/18 19:50 02/28/18 19:50 02/28/18 19:50 02/28/18 19:50 - Physical Exam Comments: 02/28/18 20:36 Drowsy but arousable, tachycardic, tachypneic General Appearance: Yes: Nourished, Obese Neck: positive: Trachea midline, Supple Respiratory/Chest: positive: Other (Scattered Rhonchi, labored respirations) Cardiovascular: positive: S1, S2 Gastrointestinal/Abdominal: positive: Normal Bowel Sounds, Soft. negative: Distended, Guarding, Rebound, Tenderness, Hernia, Mass Integumentary: positive: Normal Color, Warm, Clammy Neurologic: positive: Fully Oriented, Alert ED Treatment Course - LABORATORY CBC & Chemistry Diagram: 02/28/18 20:06 02/28/18 20:06 Medical Decision Making - Medical Decision Making 02/28/18 20:33 77 year old male presents with fever (Tmax 103) and increased O2 demand from [facility]. Tachycardic (150's), Tachypneic (20's) and Febrile (103 Rectal) at presentation. Adult ED Sepsis protocol initiated. Possible septic sources includes Acute Hypercapneic Respiratory failure, UTI, PNA. Cardiac Monitoring. 02/28/18 20:51 CO2 44 - less likely hypercapneic RF, will start empiric broad spectrum Abx coverage Vanc Zoysn As per EMR, patient has h/o Klebsiella UTI susceptible to Zosyn 02/28/18 21:06 Troponin 0.71 ASA Will trend Trop 02/28/18 21:15 Patient reassessed @ bedside Tachy improving 100's-120's RR 20-30's Close monitoring, will consider Bipap 02/28/18 21:51 Lactic Acid 2.5 -- c/w clinical presentation, IV Hydration Patient admitted to inpatient medicine service. Will continue to monitor closely while in ED. *DC/Admit/Observation/Transfer Diagnosis at time of Disposition: Sepsis Qualifiers: Sepsis type: sepsis due to unspecified organism Qualified Code(s): A41.9 - Sepsis, unspecified organism - Discharge Dispostion Disposition: HOME Condition at time of disposition: Fair Decision to Admit order: Yes - Referrals - Patient Instructions - Post Discharge Activity
[2018-02-28] MEDS ORDERED: ACETAMINOPHEN 1000 MG/100 ML VIAL (NON FORMULARY) IVPB ONE (20:17)
--- NOTE | 2018-02-28 20:19 | PDOC ---
Attending Attestation - Resident Resident Name: Leslie Arguello - ED Attending Attestation I have performed the following: I have examined & evaluated the patient, The case was reviewed & discussed with the resident, I agree w/resident's findings & plan, Exceptions are as noted - HPI HPI: 02/28/18 20:48 The patient is a 77 year old male, with a significant past medical history of CVA (RT-sided hemiparesis), COPD (occasional O2 usage, usually 2L at night), CHF , DM, HTN, and HLD, who presents to the emergency department with, fever. As per patients , he had a fever of 103F. Upon his arrival, the patient complains of feeling hot and tired. While in the ED, the patient is lethargic but, arousable. Patient is a poor historian due to his lethargy. Allergies: NKDA Primary Care Physician: Dr. Bautista - Physicial Exam PE: 02/28/18 20:48 GENERAL: Diaphoretic. Warm to touch.In no acute distress HEAD: No signs of trauma EYES: sclera anicteric, conjunctiva clear +ENT: Dry mucous membranes. NECK: Supple, no lymphadenopathy, JVD, or masses +LUNGS: Tachypneic. Rhonchi bilaterally. No wheezes, and no crackles +HEART: Tachycardic. No murmurs, rubs or gallops ABDOMEN: Soft, nontender, normoactive bowel sounds. No guarding, no rebound. No masses +EXTREMITIES: Trace symmetric lower extremity pitting edema to the knees bilaterally. +NEUROLOGICAL: Lethargic but, arousable. Cranial nerves intact SKIN: Warm, Dry, normal turgor, no rashes or lesions noted. - Medical Decision Making 02/28/18 20:49 77yo M with MMP presents to the ED with fevers, tachypnea, higher O2 requirement (currently 4L rather than 2L), lethargy all concerning for sepsis. Source most likely respiratory, less likely UTI. Plan for sepsis w/u, 1L NS as pt appears dry but will hold off on 30cc/kg given CHF hx, and cover empirically. Heart Score/ECG Review #1 02/28/18 20:16 Twelve-lead EKG was performed and reviewed by me. Sinus tachycardia, rate 125. Frequent PVCs. Normal axis. Subtle ST elevation in leads V1 to V3 with mild ST depressions in 1 and aVL. Compared to EKG from 12/29/2017, ST elevations present but the ST depressions in 1 and aVL are new.
[2018-02-28 20:29] LABS: VENOUS PC02 44.8 mmHg (38-52); VENOUS PH 7.44 (7.32-7.42); VENOUS PO2 49.1 mmHg (28-48)
[2018-02-28] MEDS ORDERED: ACETAMINOPHEN INJECTION 100 ML IVPB ONE (20:29)
[2018-02-28 20:31] LABS: BASO % 0.4 % (0-2.0); HEMATOCRIT 47.7 % (35.4-49); HEMOGLOBIN 16.8 GM/dL (11.7-16.9); LYMPH % 25.2 % (8-40); MCH 32.5 pg (25.7-33.7); MCHC 35.3 g/dl (32.0-35.9); MONO % 10.3 % (3.8-10.2); NEUT % 64.1 % (42.8-82.8); PLATELET COUNT 162 K/MM3 (134-434); RBC 5.19 M/mm3 (4.00-5.60); RDW 15.1 % (11.9-15.9); WHITE BLOOD COUNT 11.5 K/mm3 (4.0-10.0)
[2018-02-28] MEDS ORDERED: SODIUM CHLORIDE 0.9% 500 ML INFUS.BAG IV ONE (20:38)
[2018-02-28] MEDS ORDERED: PIPERACILLIN/TAZOB 4.5 GM 4.5 GM in DEXTROSE 5%-WATER 100 ML IVPB ONE (20:52)
[2018-02-28] MEDS ORDERED: VANCOMYCIN 1,000 MG in DEXTROSE 5%-WATER - 250 ML IVPB ONE (20:52)
[2018-02-28] MEDS ORDERED: PIPERACILLIN/TAZOB 4.5 GM 4.5 GM/100 ML BAG IVPB ONE (20:56)
[2018-02-28 20:58] LABS: INR 1.18 (0.83-1.09); PROTHROMBIN TIME (PATIENT) 13.9 SEC (9.7-13.0)
[2018-02-28 21:01] LABS: ACTIVATED PTT 24.1 SECONDS (25.2-36.5)
[2018-02-28 21:04] LABS: ALBUMIN 3.2 g/dl (3.4-5.0); ALK PHOS 65 U/L (45-117); ANION GAP 12 MMOL/L (8-16); BILIRUBIN,TOTAL 1.1 mg/dL (0.2-1); BLOOD UREA NITROGEN 23 mg/dL (7-18); CALCIUM 8.8 mg/dL (8.5-10.1); CHLORIDE 103 mmol/L (98-107); CO2 29 mmol/L (21-32); CREATININE 1.6 mg/dL (0.55-1.3); POTASSIUM 3.4 mmol/L (3.5-5.1); SGOT/AST 22 U/L (15-37); SGPT/ALT 19 U/L (13-61); SODIUM 145 mmol/L (136-145); TOT PROT 7.9 g/dl (6.4-8.2)
[2018-02-28 21:05] LABS: GLUCOSE,RANDOM 531 mg/dL (74-106)
[2018-02-28] MEDS ORDERED: ASPIRIN 325 MG TABLET PO ONE (21:06)
[2018-02-28] MEDS ORDERED: ASPIRIN 300 MG SUPP.RECT PR ONE (21:11)
[2018-02-28] MEDS ORDERED: ASPIRIN 300 MG SUPP.RECT RC ONE (21:15)
[2018-02-28] MEDS ORDERED: VANCOMYCIN 1 GRAM (PRE-DOCKED) 1,000 MG/250 ML BAG IVPB ONE (21:44)
[2018-02-28 23:03] LABS: URINE APPEARANCE CLEAR; URINE BILIRUBIN NEGATIVE (<2.0 mg/dL); URINE COLOR LTYELLOW; URINE GLUCOSE (UA) 3+ (NEGATIVE); URINE KETONE NEGATIVE (NEGATIVE); URINE LEUK ESTERASE NEGATIVE (NEGATIVE); URINE NITRITE NEGATIVE (NEGATIVE); URINE PROTEIN 2+ (NEGATIVE); URINE UROBILINOGEN NEGATIVE mg/dL (0.2-1.0)
[2018-02-28 23:17] LABS: EPI CELLS RARE /HPF (FEW)
[2018-02-28] MEDS ORDERED: HEMOQUE TEST 1 EACH EACH ONE (23:37)
[2018-03-01] MEDS ORDERED: ALBUTEROL SO4 2.5/IPRATROPIUM 0.5 INH SOL 3 ML VIAL.NEB. NEB ONE ×3 (00:05→09:07)
[2018-03-01] MEDS ORDERED: INSULIN (NOVOLOG) ASPART 100 UNITS/ML 10ML VIAL SQ ONE ×2 (00:05→01:59)
[2018-03-01] MEDS ORDERED: INSULIN (NOVOLOG) ASPART 100 UNITS/ML 10ML VIAL ONE ×2 (00:13→02:03)
[2018-03-01] MEDS: SODIUM CHLORIDE 1,000 ML IV SCH ×2 (00:31→12:39)
--- NOTE | 2018-03-01 01:12 | HP ---
CHIEF COMPLAINT: fever PCP: Neptali/Linh NOLEN HISTORY OF PRESENT ILLNESS: This is a 77 year old male with multiple medical problems who presented to the ED with fever x 2 days. He was started on augmentin po today at the CT. Pt is a poor historian. History obtained from ED and CT charts. CT reports pt also with increased oxygen requirements. ER course was notable for: (1) WBC11.5, T103.7, Lactic acid 2.6 (2) u/a not c/w UTI (3) CXR without obvious infiltrate Recent Travel: none PAST MEDICAL HISTORY: HTN, HLD, CHF, CVA with residual right sided weakness, dysphagia, DM2, COPD PAST SURGICAL HISTORY: s/p trach reversal Social History: Smoking: pt states he quit 6 years ago Alcohol: pt denies Drugs: pt denies Family History: unk Allergies No Known Allergies Allergy (Verified 03/01/18 00:00) HOME MEDICATIONS: 3 Medication Instructions Recorded Acetaminophen [Tylenol -] 650 mg PO Q4H PRN 02/28/18 Albuterol 2.5/Ipratropium 0.5 1 neb IH QID 02/28/18 [Duoneb -] Amlodipine Besylate [Norvasc -] 10 mg PO DAILY 02/28/18 Amox-Tr/K Cl [Augmentin - 875Mg 1 tab PO BID 02/28/18 Tablet] Ascorbic Acid [Vitamin C -] 500 mg PO DAILY 02/28/18 Aspirin [ASA -] 81 mg PO DAILY 02/28/18 Atorvastatin Ca [Lipitor] 40 mg PO HS 02/28/18 Azelastine HCl 1 spr NS BID 02/28/18 Clotrimazole [Lotrimin 1% Solution 1 applic TP BID 02/28/18 -] Diltiazem [Cardizem -] 60 mg PO BID 02/28/18 Docusate Sodium [Colace -] 200 mg PO DAILY 02/28/18 Ergocalciferol [Vitamin D2] 50,000 unit PO WEEKLY 02/28/18 Escitalopram Oxalate [Lexapro -] 10 mg PO DAILY 02/28/18 Furosemide [Lasix -] 40 mg PO DAILY 02/28/18 Gabapentin [Neurontin -] 300 mg PO TID 02/28/18 Insulin (LOG) Aspart [NovoLOG -] 0 units SQ BID 02/28/18 Insulin Detemir [Levemir Flextouch] 17 unit SQ HS 02/28/18 Lidocaine 5% Top. Ointment 1 applic TP TID 02/28/18 [Xylocaine 5% Top. Ointment] Lisinopril 30 mg PO DAILY 02/28/18 Nystatin 100,000 unit PO QID 02/28/18 Sennosides [Senna] 2 tab PO HS 02/28/18 Sennosides/Docusate Sodium 1 each PO HS 02/28/18 [Senexon-S Tablet] Zinc Oxide 20% Topical Oint 454 gm NR BID 02/28/18 Methyl Salicylate/Menth/Camph 1 applic TP TID 03/01/18 [Bengay Ultra Strength Cream] REVIEW OF SYSTEMS CONSTITUTIONAL: Present: fever, generalized weakness, malaise Absent: chills, diaphoresis, loss of appetite, weight change HEENT: Absent: rhinorrhea, nasal congestion, throat pain, throat swelling, difficulty swallowing, mouth swelling, ear pain, eye pain, visual changes CARDIOVASCULAR: Absent: chest pain, syncope, palpitations, irregular heart rate, lightheadedness , peripheral edema RESPIRATORY: Present: shortness of breath Absent: cough, dyspnea with exertion, orthopnea, wheezing, stridor, hemoptysis GASTROINTESTINAL: Absent: abdominal pain, abdominal distension, nausea, vomiting, diarrhea, constipation, melena, hematochezia GENITOURINARY: Absent: dysuria, frequency, urgency, hesitancy, hematuria, flank pain, genital pain MUSCULOSKELETAL: Absent: myalgia, arthralgia, joint swelling, back pain, neck pain SKIN: Absent: rash, itching, pallor HEMATOLOGIC/IMMUNOLOGIC: Absent: easy bleeding, easy bruising, lymphadenopathy, frequent infections ENDOCRINE: Absent: unexplained weight gain, unexplained weight loss, heat intolerance, cold intolerance NEUROLOGIC: Absent: headache, focal weakness or paresthesias, dizziness, unsteady gait, seizure, mental status changes, bladder or bowel incontinence PSYCHIATRIC: Absent: anxiety, depression, suicidal or homicidal ideation, hallucinations. PHYSICAL EXAMINATION Vital Signs - 24 hr 3 02/28/18 02/28/18 02/28/18 19:50 20:44 20:45 Temperature 98.9 F 103.7 F H Pulse Rate 94 H 121 H Pulse Rate [ Apical] Respiratory 20 36 H Rate Blood Pressure 138/84 151/75 Blood Pressure [Left Arm] O2 Sat by Pulse 97 95 95 Oximetry (%) 3 02/28/18 03/01/18 03/01/18 21:55 00:15 00:23 Temperature 99.8 F H Pulse Rate Pulse Rate [ 78 128 H Apical] Respiratory 32 H 25 H Rate Blood Pressure Blood Pressure 132/84 175/91 H 163/99 [Left Arm] O2 Sat by Pulse 96 96 Oximetry (%) GENERAL: Awake, alert, and oriented to person only, in mild respiratory distress. HEAD: Normal with no signs of trauma. EYES: Pupils equal, round and reactive to light, extraocular movements intact, sclera anicteric, conjunctiva clear. No lid lag. EARS, NOSE, THROAT: Ears normal, nares patent, oropharynx clear without exudates. Moist mucous membranes. NECK: Normal range of motion, supple without lymphadenopathy, JVD, or masses. LUNGS: tachypnea noted, + rhonchi, mild exp wheezing HEART: Regular rate and rhythm, normal S1 and S2 without murmur, rub or gallop. ABDOMEN: Soft, nontender, not distended, normoactive bowel sounds, no guarding, no rebound, no masses. No hepatomegaly or splenomegaly. MUSCULOSKELETAL: Normal range of motion at all joints. No bony deformities or tenderness. No CVA tenderness. UPPER EXTREMITIES: 2+ pulses, warm, well-perfused. No cyanosis. No clubbing. No peripheral edema. LOWER EXTREMITIES: 2+ pulses, warm, well-perfused. No calf tenderness. tr peripheral edema bilat. NEUROLOGICAL: Cranial nerves II-XII grossly intact. speech garbled at times PSYCHIATRIC: Cooperative. Good eye contact. Appropriate mood and affect. SKIN: Warm, dry, normal turgor, no rashes or lesions noted, normal capillary refill. Laboratory Results - last 24 hr 3 02/28/18 02/28/18 02/28/18 20:06 20:06 20:06 WBC 11.5 H RBC 5.19 Hgb 16.8 Hct 47.7 D MCV 92.0 MCH 32.5 MCHC 35.3 RDW 15.1 Plt Count 162 D MPV 10.0 D Absolute Neuts (auto) 7.4 Neutrophils % 64.1 Lymphocytes % 25.2 Monocytes % 10.3 H Eosinophils % 0.0 D Basophils % 0.4 Nucleated RBC % 0 PT with INR 13.90 H INR 1.18 H PTT (Actin FS) 24.1 L VBG pH POC VBG pCO2 POC VBG pO2 Mixed VBG HCO3 Sodium Potassium Chloride Carbon Dioxide Anion Gap BUN Creatinine Creat Clearance w eGFR Random Glucose Lactic Acid Calcium Total Bilirubin AST ALT Alkaline Phosphatase Creatine Kinase Creatine Kinase Index CK-MB (CK-2) Troponin I Total Protein Albumin Urine Color Ltyellow Urine Appearance Clear Urine pH 5.0 Ur Specific Elmo 1.033 Urine Protein 2+ H Urine Glucose (UA) 3+ H Urine Ketones Negative Urine Blood 2+ H Urine Nitrite Negative Urine Bilirubin Negative Urine Urobilinogen Negative Ur Leukocyte Esterase Negative Urine WBC (Auto) <1 Urine RBC (Auto) 13 Ur Epithelial Cells Rare 3 02/28/18 02/28/18 02/28/18 02/28/18 20:06 20:06 20:25 22:20 WBC RBC Hgb Hct MCV MCH MCHC RDW Plt Count MPV Absolute Neuts (auto) Neutrophils % Lymphocytes % Monocytes % Eosinophils % Basophils % Nucleated RBC % PT with INR INR PTT (Actin FS) VBG pH 7.44 H POC VBG pCO2 44.8 POC VBG pO2 49.1 H Mixed VBG HCO3 29.8 H Sodium 145 Potassium 3.4 L Chloride 103 Carbon Dioxide 29 Anion Gap 12 BUN 23 H Creatinine 1.6 H Creat Clearance w eGFR 42.35 Random Glucose 531 H* Lactic Acid 2.6 H* 1.9 Calcium 8.8 Total Bilirubin 1.1 H AST 22 ALT 19 Alkaline Phosphatase 65 Creatine Kinase 625 H Creatine Kinase Index 0.2 CK-MB (CK-2) 1.5 Troponin I 0.71 H* 0.89 H* Total Protein 7.9 Albumin 3.2 L Urine Color Urine Appearance Urine pH Ur Specific Elmo Urine Protein Urine Glucose (UA) Urine Ketones Urine Blood Urine Nitrite Urine Bilirubin Urine Urobilinogen Ur Leukocyte Esterase Urine WBC (Auto) Urine RBC (Auto) Ur Epithelial Cells ECG Sinus tachycardia with frequent PVCs vent rate 125, QTC 525 T wave abnormality, consider lateral ischemia Radiology Reports Chest, portable Impression Moderate elevation of the right hemidiaphragm with mild atelectatic changes in the right lung base. Moderate cardiomegaly. Reported By: Eli Khan MD 02/28/18 2449 ASSESSMENT/PLAN: 77yM with PMH HTN, HLD, CHF, CVA with residual right sided weakness, dysphagia, DM2, COPD presented to the ED with fever, sob. Sepsis likely secondary to PNA - treating for pneumonia given PE findings despite lack of infiltrate on xray as may be radiology lag - cont vanc/zosyn - ID consult - consider CT chest - given 1L NS in ED, cont NS @ 150cc/hr - consider pulm consult COPD - cont duonebs, - consider steroids if no improvement with duoneb elevated trop - ? if true ACS, may be due to ANALIA/sepsis, pt denies chest pain - given ASA in ED - Cardiology consult recommended, defer to PCP in am HTN/HLD/CHF - cont home meds - hold lasix po for now ANALIA - Cr up to 1.6 from baseline 0.6-0.8, likely due to sepsis hypovolemia - NS @ 150cc/hr - repeat bMP in am - if not improving, renal consult DM - cont home levemi - BGM AC/HS with novolog ss DVT PPX - heparin 5000u TID SC FEN - NS @ 150cc/hr - BMP in am - chopped diet as tolerated Dispo: Pt currently requires further inpatient management of his emergent condition. Visit type - Emergency Visit Emergency Visit: Yes ED Registration Date: 02/28/18 Care time: The patient presented to the Emergency Department on the above date and was hospitalized for further evaluation of their emergent condition. - New Patient This patient is new to me today: Yes Date on this admission: 02/28/18 - Critical Care Critical Care patient: No
[2018-03-01] MEDS ORDERED: METHYL SALICYLATE/MENTHOL OINT 30 GM TUBE TP PRN (01:30)
[2018-03-01] MEDS ORDERED: INSULIN (LEVEMIR) 100 UNITS/ML UNITS SQ ONE ×2 (02:00→02:03)
[2018-03-01 02:26] LABS: ARTERIAL BLD GAS O2 SATURATION 99.4 % (90-98.9); ARTERIAL BLOOD GAS BASE EXCESS 5.2 meq/l (-2-2); ARTERIAL BLOOD GAS PCO2 40.1 mmHg (35-45); ARTERIAL BLOOD GAS pH 7.47 (7.35-7.45)
[2018-03-01] MEDS ORDERED: dilTIAZem HCL 60 MG TABLET (FP) PO ONE (03:01)
[2018-03-01] MEDS ORDERED: dilTIAZem HCL 60 MG TABLET (FP) ONE (03:03)
[2018-03-01] MEDS ORDERED: HEPARIN NA (PORCINE) 5,000 UNITS/ML 1ML VIAL ONE (05:43)
[2018-03-01] MEDS: GABAPENTIN 300 MG CAPSULE (FP) PO SCH ×3 (05:53→22:01)
[2018-03-01] MEDS ORDERED: HEPARIN NA (PORCINE) 5,000 UNITS/ML 1ML VIAL SQ SCH (06:00)
[2018-03-01 06:18] LABS: BASO % 0.5 % (0-2.0); EOS % 0.1 % (0-4.5); HEMATOCRIT 44.4 % (35.4-49); HEMOGLOBIN 15.1 GM/dL (11.7-16.9); LYMPH % 24.9 % (8-40); MCHC 34.1 g/dl (32.0-35.9); MEAN CELL VOLUME 90.8 fl (80-96); MEAN PLT VOLUME 9.5 fl (7.5-11.1); MONO % 9.7 % (3.8-10.2); NEUT % 64.8 % (42.8-82.8); PLATELET COUNT 132 K/MM3 (134-434); RBC 4.89 M/mm3 (4.00-5.60); RDW 14.9 % (11.9-15.9); WHITE BLOOD COUNT 11.5 K/mm3 (4.0-10.0)
[2018-03-01 07:10] LABS: ANION GAP 8 MMOL/L (8-16); BLOOD UREA NITROGEN 20 mg/dL (7-18); CALCIUM 8.2 mg/dL (8.5-10.1); CHLORIDE 112 mmol/L (98-107); CO2 30 mmol/L (21-32); CREATININE 1.2 mg/dL (0.55-1.3); GLUCOSE,RANDOM 282 mg/dL (74-106); MAGNESIUM 2.4 mg/dL (1.8-2.4); PHOSPHOROUS 2.2 mg/dL (2.5-4.9); SODIUM 150 mmol/L (136-145)
[2018-03-01] MEDS: ALBUTEROL SO4 2.5/IPRATROPIUM 0.5 INH SOL 3 ML VIAL.NEB. NEB SCH ×4 (08:00→21:24)
[2018-03-01] MEDS ORDERED: IBUPROFEN 400 MG TABLET (FP) PO ONE (09:07)
[2018-03-01] MEDS: IBUPROFEN 400 MG TABLET (FP) PO PRN (09:30)
[2018-03-01] MEDS: DOCUSATE SODIUM 100 MG CAPSULE (FP) PO SCH (09:42)
[2018-03-01] MEDS: ESCITALOPRAM OXALATE 10 MG TABLET (FP) PO SCH (09:42)
[2018-03-01] MEDS: ASPIRIN 81 MG CHEWABLE TABLETS PO SCH (09:42)
[2018-03-01] MEDS: LISINOPRIL 10 MG TABLET (FP) PO SCH (09:43)
--- NOTE | 2018-03-01 09:54 | EKG ---
Test Reason : Blood Pressure : / mmHG Vent. Rate : 111 BPM Atrial Rate : 136 BPM P-R Int : 000 ms QRS Dur : 100 ms QT Int : 596 ms P-R-T Axes : 000 004 -12 degrees QTc Int : 810 ms ATRIAL FIBRILLATION WITH RAPID VENTRICULAR RESPONSE WITH PREMATURE VENTRICULAR OR ABERRANTLY CONDUCTED COMPLEXES T WAVE ABNORMALITY, CONSIDER ANTERIOR ISCHEMIA PROLONGED QT ABNORMAL ECG WHEN COMPARED WITH ECG OF 28-FEB-2018 20:03, ATRIAL FIBRILLATION HAS REPLACED SINUS RHYTHM T WAVE INVERSION MORE EVIDENT IN ANTERIOR LEADS Confirmed by LILY PUENTE, WILTON ([id number]) on 03/01/2018 9:54:21 AM Referred By: GIANNA JHAVERI Confirmed By:WILTON BAUTISTA MD
--- NOTE | 2018-03-01 09:55 | EKG ---
Test Reason : Blood Pressure : / mmHG Vent. Rate : 125 BPM Atrial Rate : 125 BPM P-R Int : 152 ms QRS Dur : 092 ms QT Int : 364 ms P-R-T Axes : 043 -21 078 degrees QTc Int : 525 ms SINUS TACHYCARDIA WITH FREQUENT and consecutive PREMATURE VENTRICULAR COMPLEXES POSSIBLE LEFT ATRIAL ENLARGEMENT T WAVE ABNORMALITY, CONSIDER LATERAL ISCHEMIA ABNORMAL ECG WHEN COMPARED WITH ECG OF 29-DEC-2017 19:31, ST NO LONGER ELEVATED IN ANTERIOR LEADS T WAVE INVERSION NOW EVIDENT IN ANTEROLATERAL LEADS Confirmed by LILY PUENTE, WILTON ([id number]) on 03/01/2018 9:55:09 AM Referred By: Confirmed By:WILTON BAUTISTA MD
[2018-03-01] MEDS ORDERED: AZELASTINE HCL NS SCH (10:00)
[2018-03-01] MEDS ORDERED: dilTIAZem HCL 60 MG TABLET (FP) PO SCH (10:00)
[2018-03-01] MEDS ORDERED: amLODIPine BESYLATE 10 MG TABLET (FP) PO SCH (10:00)
[2018-03-01] MEDS ORDERED: ASCORBIC ACID 500 MG TABLET (FP) PO SCH (10:00)
[2018-03-01] MEDS ORDERED: CLOTRIMAZOLE 1%TOPICAL SOLUTION 30 ML BOTTLE TP SCH (10:00)
--- NOTE | 2018-03-01 10:09 | CON.ID ---
Consult Consult Specialty:: infectious disease Referred by:: hospitalist - History of Present Illness Chief Complaint: fever, lethargy History of Present Illness: sent from [place] with fever to 103 and lethargy per er note- 2 days of fever at [place] noted to be in rapid afib with fever and elevated lactic acid recent admission 01/02 to 01/10 for copd exacerbation received ivf and vancomycin and zosyn overnight no history of MDRO this am more alert, being fed breakfast, answers to name still hypoxic requiring ventimask chest ct with RLL infiltrate and cardiomegaly 2 soft bms in ED - Past Medical History [employer]CH[employer]IAN: Yes: CVA (right hemiparesis) Cardio/Vascular: Yes: CHF, HTN, Hyperlipdemia Pulmonary: Yes: COPD Endocrine: Yes: Diabetes Mellitus Additional Medical History: history of dysphagia - Past Surgical History Additional Surgical History: history of tracheostomy in the past , left eye cataract surgery - Alcohol/Substance Use Hx Alcohol Use: No - Smoking History Smoking history: Unknown if ever smoked Have you smoked in the past 12 months: No Aproximately how many cigarettes per day: 0 If you are a former smoker, when did you quit?: 6 years ago Home Medications - Allergies Allergies/Adverse Reactions: Allergies Allergy/AdvReac Type Severity Reaction Status Date / Time No Known Allergies Allergy Verified 03/01/18 00:00 - Home Medications Home Medications: Ambulatory Orders Acetaminophen [Tylenol -] 650 mg PO Q4H PRN 02/28/18 Albuterol 2.5/Ipratropium 0.5 [Duoneb -] 1 neb IH QID 02/28/18 Amlodipine Besylate [Norvasc -] 10 mg PO DAILY 02/28/18 Amox-Tr/K Cl [Augmentin - 875Mg Tablet] 1 tab PO BID 02/28/18 Ascorbic Acid [Vitamin C -] 500 mg PO DAILY 02/28/18 Aspirin [ASA -] 81 mg PO DAILY 02/28/18 Atorvastatin Ca [Lipitor] 40 mg PO HS 02/28/18 Azelastine HCl 1 spr NS BID 02/28/18 Clotrimazole [Lotrimin 1% Solution -] 1 applic TP BID 02/28/18 Diltiazem [Cardizem -] 60 mg PO BID 02/28/18 Docusate Sodium [Colace -] 200 mg PO DAILY 02/28/18 Ergocalciferol [Vitamin D2] 50,000 unit PO WEEKLY 02/28/18 Escitalopram Oxalate [Lexapro -] 10 mg PO DAILY 02/28/18 Furosemide [Lasix -] 40 mg PO DAILY 02/28/18 Gabapentin [Neurontin -] 300 mg PO TID 02/28/18 Insulin (LOG) Aspart [NovoLOG -] 0 units SQ BID 02/28/18 Insulin Detemir [Levemir Flextouch] 17 unit SQ HS 02/28/18 Lidocaine 5% Top. Ointment [Xylocaine 5% Top. Ointment] 1 applic TP TID Lisinopril 30 mg PO DAILY 02/28/18 Nystatin 100,000 unit PO QID 02/28/18 Sennosides [Senna] 2 tab PO HS 02/28/18 Sennosides/Docusate Sodium [Senexon-S Tablet] 1 each PO HS 02/28/18 Zinc Oxide 20% Topical Oint 454 gm NR BID 02/28/18 Aa/Hydrolyzed Collagen, Whey [Lps 15-30 Liquid] 30 ml PO DAILY 03/01/18 Methyl Salicylate/Menth/Camph [Bengay Ultra Strength Cream] 1 applic TP TID 11/09 Family Disease History - Family Disease History Family History: Unable to Obtain Review of Systems - Review of Systems Cardiovascular: denies: Chest Pain Respiratory: reports: Cough Gastrointestinal: denies: Abdominal Pain Physical Exam Vital Signs: Vital Signs Temperature 102.8 F H 03/01/18 09:00 Pulse Rate 135 H 03/01/18 09:00 Respiratory Rate 24 H 03/01/18 09:00 Blood Pressure 155/80 03/01/18 09:00 O2 Sat by Pulse Oximetry (%) 98 03/01/18 09:00 Constitutional: Yes: Well Nourished, No Distress, Calm HENT: Yes: Atraumatic, Normocephalic Neck: Yes: Supple Cardiovascular: Yes: Tachycardia Respiratory: Yes: Regular, Diminished (at bases) Gastrointestinal: Yes: Normal Bowel Sounds, Soft, Abdomen, Obese. No: Tenderness, Epigastrium ...Rectal Exam: Yes: Deferred Renal/: Yes: WNL Extremities: Yes: WNL Edema: No Neurological: Yes: Alert Labs: CBC, BMP 03/01/18 06:00 03/01/18 06:00 Microbiology 02/28/18 23:30 Nasopharyngeal Swab Influenza Types A,B Antigen - Final 02/28/18 23:30 Nasopharyngeal Swab - Final cultures pending UA negative Imaging - Results Chest X-ray: Report Reviewed, Image Reviewed Cat Scan: Report Reviewed, Image Reviewed Problem List - Problems (1) Sepsis Code(s): A41.9 - SEPSIS, UNSPECIFIED ORGANISM Qualifiers: Sepsis type: sepsis due to unspecified organism Qualified Code(s): A41.9 - Sepsis, unspecified organism (2) Pneumonia Code(s): J18.9 - PNEUMONIA, UNSPECIFIED ORGANISM (3) Hypoxemia Code(s): R09.02 - HYPOXEMIA (4) COPD exacerbation Code(s): J44.1 - CHRONIC OBSTRUCTIVE PULMONARY DISEASE W (ACUTE) EXACERBATION (5) Rapid atrial fibrillation Code(s): I48.91 - UNSPECIFIED ATRIAL FIBRILLATION (6) Elevated troponin Code(s): R74.8 - ABNORMAL LEVELS OF OTHER SERUM ENZYMES (7) Prolonged Q-T interval on ECG Code(s): R94.31 - ABNORMAL ELECTROCARDIOGRAM [ECG] [EKG] Assessment/Plan continue zosyn/vancomycin for possible aspiration pneumonia-HCAP legionella urinary antigen-asked nursing to send cardiology evaluation for rapid afib, NSTEMI? swab nares to r/o MRSA will continue vancomycin until nares swab is back
[2018-03-01] MEDS ORDERED: PIPERACILLIN/TAZOB 4.5 GM 4.5 GM/100 ML BAG IVPB ONE (11:05)
[2018-03-01] MEDS: ZINC OXIDE 20% TOPICAL OINTMENT 30 GM TUBE TP SCH ×2 (11:15→22:03)
[2018-03-01] MEDS: PIPERACILLIN/TAZOB 4.5 GM 4.5 GM in DEXTROSE 5%-WATER 100 ML IVPB SCH ×2 (11:15→17:55)
[2018-03-01] MEDS ORDERED: ACETAMINOPHEN 325 MG TABLET (FP) ONE (11:25)
[2018-03-01] MEDS: ACETAMINOPHEN 325 MG TABLET (FP) PO PRN (11:31)
[2018-03-01] MEDS ORDERED: PIPERACILLIN/TAZOBACTAM 4.5 GM VIAL IVPB ONE ×2 (12:36→17:52)
[2018-03-01] MEDS ORDERED: DEXTROSE 5%-WATER 100 ML IVPB ONE ×2 (12:37→17:52)
[2018-03-01] MEDS: VANCOMYCIN 1 GRAM (PRE-DOCKED) 1,000 MG/250 ML BAG IVPB SCH ×2 (12:38→22:02)
[2018-03-01] MEDS: KCL 10 MEQ IVPB 10 MEQ/100 ML INFUS.BAG IVPB SCH ×2 (13:40→14:34)
[2018-03-01] MEDS ORDERED: PT OWN MED DRAWER 7, Y5N ONE ×2 (13:47→21:52)
[2018-03-01] MEDS: ACETAMINOPHEN 1000 MG/100 ML VIAL (NON FORMULARY) IVPB PRN ×2 (13:47→20:11)
[2018-03-01] MEDS: SODIUM CHLORIDE 0.45% 1,000 ML with POTASSIUM CHLORIDE 20 MEQ IVPB SCH (13:54)
--- NOTE | 2018-03-01 14:02 | CONSULT ---
Admitting History and Physical - Primary Care Physician PCP: Andrea Gunderson - Admission History of Present Illness: Per EMR: This is a 77 year old male with multiple medical problems who presented to the ED with fever x 2 days. CXR without obvious infiltrate PMH:HTN, HLD, CHF, CVA with residual right sided weakness, dysphagia, DM2, COPD s/p trach reversal Per ID:noted to be in rapid afib with fever and elevated lactic acid recent admission 01/02 to 01/10 for copd exacerbation received ivf and vancomycin and zosyn overnight no history of MDRO this am more alert, being fed breakfast, answers to name still hypoxic requiring ventimask chest ct with RLL infiltrate and cardiomegaly Last seen by me 11/2017-MBS reviewed with pt/staff. Pt on chopped diet/nectar thick liquid. Still with audible upper airway secretions.Followed by Pulmonary. Tolerated 3 oz water test via straw. Consider thin liquid. (-) aspiration on MBS. 02/07 [place] orders minced,nectar, [facility] [place] was scheduled for 02/09 to upgrade diet but was cancelled as insuraNCE WOULDNT COVER. Pt was on puree/nectar, impulsive drinking, occasional cough.Tolerating diet overall. Pt was up for d/c home from [place], transferred [facility] one assist before recent fever. 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 Muld hang up of solids on BOT, cleared with f/u of liquid. Chopped/nectar rec) - General Mental Status: Able to Follow Commands, Lethargic (arousable but sleepy) Attention: Intact (when awake) Ability to Follow Directions: Good Head/Neck Control: Fair - Hearing Hearing: Functional Speech Evaluation - Communication Primary Language: FIJIAN Communication: Yes: Simple Responses - Speech Production Able to Make Needs Known: Yes: WNL Intelligibility: Yes: WNL - Speech Characteristics Voice Loudness: Normal Voice Pitch: Yes: Normal Voice Phonatory-based Quality: Yes: Normal Speech Pattern: Normal Nasal Resonance: Normal Articulation: Yes: Imprecise - Language/Auditory Comprehension Follows: Yes: 1 Stage Simple Commands Observation: Comprehends Conversational Speech: Yes - Swallow Evaluation/Bedside Assessment Current Nutritional Intake: [place] Textured Liquids, Other (chopped) Oral Secretions: Yes: WFL Dentition: Yes: Edentulous Facial Symmetry at Rest: Symmetrical Lingual Movement: Normal, Symmetric Laryngeal Movement: Able to Palpate, Labored,delay initiation Rate of Intake: Impulsive Labial Seal: WFL Oral Prep Time: WFL A-P Transit: WFL Pocketing: None Coughing/Throat Clear: No Change in Voice: No Recommendations - Speech Evaluation, Impression/Plan Impression: Intermittent cough with PO intake. CT chest RLL infiltate- ASpiration? Lethargy. - Dysphagia Impressions/Plan Dysphagia Impressions: Ongoing Evaluation *Silent aspiration: cannot be R/O at bedside Dysphagia Treatment Plan: Chin Tuck/Down, Trial Feedings, Safe Rate, 1/2 tsp. at a time, Elevate HOB during feed Recommendations: Modified Barium Swallow (when improved) - Recommendations Diet Consistency: Dysphagia Pureed Medication Administration: Crushed with applesauce Liquids: Honey Thick (no straws. Single sips.)
[2018-03-01] MEDS: ENOXAPARIN NA (PORCINE) 100 MG/1 ML DISP.SYRIN SQ SCH ×2 (14:42→22:02)
--- NOTE | 2018-03-01 15:34 | CON.CARD ---
Consult Consult Specialty:: Cardiology Referred by:: Evelyne Miller MD Reason for Consultation:: Rapid afib - History of Present Illness Chief Complaint: Fever and lethargy History of Present Illness: Patient is a 77 year old man with a significant PMH of HTN, abnormal LFTs, prior tracheostomy, HLD, NIDDM, ischemic stroke with residual right sided weakness, COPD with h/o flare and chronic dysphagia previous trach presented to the ED with fever, lethargy and increased oxygen requirements. Noted to be in rapid afib with freq PVC with fever and elevated lactic acid, chest ct with RLL infiltrate and cardiomegaly. 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: CVA (right hemiparesis) Cardio/Vascular: Yes: CHF, HTN, Hyperlipdemia Pulmonary: Yes: COPD Endocrine: Yes: Diabetes Mellitus Additional Medical History: history of dysphagia - Past Surgical History Additional Surgical History: history of tracheostomy in the past , left eye cataract surgery - Alcohol/Substance Use Hx Alcohol Use: No - Smoking History Smoking history: Unknown if ever smoked Have you smoked in the past 12 months: No Aproximately how many cigarettes per day: 0 If you are a former smoker, when did you quit?: 6 years ago Home Medications - Allergies Allergies/Adverse Reactions: Allergies Allergy/AdvReac Type Severity Reaction Status Date / Time No Known Allergies Allergy Verified 03/01/18 00:00 - Home Medications Home Medications: Ambulatory Orders Acetaminophen [Tylenol -] 650 mg PO Q4H PRN 02/28/18 Albuterol 2.5/Ipratropium 0.5 [Duoneb -] 1 neb IH QID 02/28/18 Amlodipine Besylate [Norvasc -] 10 mg PO DAILY 02/28/18 Amox-Tr/K Cl [Augmentin - 875Mg Tablet] 1 tab PO BID 02/28/18 Ascorbic Acid [Vitamin C -] 500 mg PO DAILY 02/28/18 Aspirin [ASA -] 81 mg PO DAILY 02/28/18 Atorvastatin Ca [Lipitor] 40 mg PO HS 02/28/18 Azelastine HCl 1 spr NS BID 02/28/18 Clotrimazole [Lotrimin 1% Solution -] 1 applic TP BID 02/28/18 Diltiazem [Cardizem -] 60 mg PO BID 02/28/18 Docusate Sodium [Colace -] 200 mg PO DAILY 02/28/18 Ergocalciferol [Vitamin D2] 50,000 unit PO WEEKLY 02/28/18 Escitalopram Oxalate [Lexapro -] 10 mg PO DAILY 02/28/18 Furosemide [Lasix -] 40 mg PO DAILY 02/28/18 Gabapentin [Neurontin -] 300 mg PO TID 02/28/18 Insulin (LOG) Aspart [NovoLOG -] 0 units SQ BID 02/28/18 Insulin Detemir [Levemir Flextouch] 17 unit SQ HS 02/28/18 Lidocaine 5% Top. Ointment [Xylocaine 5% Top. Ointment] 1 applic TP TID Lisinopril 30 mg PO DAILY 02/28/18 Nystatin 100,000 unit PO QID 02/28/18 Sennosides [Senna] 2 tab PO HS 02/28/18 Sennosides/Docusate Sodium [Senexon-S Tablet] 1 each PO HS 02/28/18 Zinc Oxide 20% Topical Oint 454 gm NR BID 02/28/18 Aa/Hydrolyzed Collagen, Whey [Lps 15-30 Liquid] 30 ml PO DAILY 03/01/18 Methyl Salicylate/Menth/Camph [Bengay Ultra Strength Cream] 1 applic TP TID 11/09 Review of Systems Unable to obtain ROS, reason: Altered mental status Vital Signs: Vital Signs Temperature 102.1 F H 03/01/18 12:13 Pulse Rate 84 03/01/18 14:00 Respiratory Rate 26 H 03/01/18 12:13 Blood Pressure 121/67 03/01/18 14:00 O2 Sat by Pulse Oximetry (%) 98 03/01/18 12:13 Constitutional: Yes: No Distress, Calm Neck: Yes: Supple Respiratory: Yes: Regular, Diminished, On Nasal O2 Gastrointestinal: Yes: Normal Bowel Sounds, Soft Cardiovascular: Yes: Tachycardia, Pulse Irregular JVD: No Carotid Bruit: No Heart Sounds: Yes: S1, S2 Edema: No - Other Data Labs, Other Data: CBC, BMP 03/01/18 06:00 03/01/18 06:00 INR, PTT INR 1.18 (0.83-1.09) H 02/28/18 20:06 Troponin, BNP 02/28/18 02/28/18 03/01/18 20:25 22:20 06:00 Troponin I 0.71 H* 0.89 H* 0.93 H* Troponin, BNP 02/28/18 02/28/18 03/01/18 20:25 22:20 06:00 Troponin I 0.71 H* 0.89 H* 0.93 H* Rapid afib with frequent PVC Ejection Fraction %: LVEF > or = 40 % Imaging - Results Cat Scan: Report Reviewed (RLL infiltrate) Problem List - Problems (1) Elevated troponin Code(s): R74.8 - ABNORMAL LEVELS OF OTHER SERUM ENZYMES (2) Rapid atrial fibrillation Code(s): I48.91 - UNSPECIFIED ATRIAL FIBRILLATION (3) Diastolic dysfunction Code(s): I51.9 - HEART DISEASE, UNSPECIFIED (4) H/O: CVA (cerebrovascular accident) Code(s): Z86.73 - PRSNL HX OF TIA (TIA), AND CEREB INFRC W/O RESID DEFICITS (5) Hyperlipidemia Code(s): E78.5 - HYPERLIPIDEMIA, UNSPECIFIED Qualifiers: Hyperlipidemia type: pure hypercholesterolemia Qualified Code(s): E78.00 - Pure hypercholesterolemia, unspecified; E78.0 - Pure hypercholesterolemia (6) Hypertension Code(s): I10 - ESSENTIAL (PRIMARY) HYPERTENSION Qualifiers: Hypertension type: essential hypertension Qualified Code(s): I10 - Essential (primary) hypertension (7) Hyponatremia Code(s): E87.1 - HYPO-OSMOLALITY AND HYPONATREMIA (8) Pneumonia Code(s): J18.9 - PNEUMONIA, UNSPECIFIED ORGANISM Qualifiers: Pneumonia type: due to unspecified organism Laterality: right Lung location: lower lobe of lung Qualified Code(s): J18.1 - Lobar pneumonia, unspecified organism (9) Toxic metabolic encephalopathy Code(s): G92 - TOXIC ENCEPHALOPATHY (10) Demand ischemia Code(s): I24.8 - OTHER FORMS OF ACUTE ISCHEMIC HEART DISEASE Assessment/Plan 12/20/2017 Echo: Normal LV size and fxn, tr MR, TR 1. RLL aspiration PNA - HCAP 2. LV Diastolic Dysfunction 3. Demand ischemia 4. Toxic-metabolic encephelopathy since resolved 5. 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 Rapid afib 7. PVC 8. Hypernatremia P:1. Empiric abx course to cover possible aspiration pneumonia-HCAP, free H20 repletion, replete K 2. Change Cardizem CD 120 qd and d/c Norvasc 10 qd, start Cardizem gtt for rate- control, lisinopril, ASA 81 qd, Lipitor 40 qd 3. On full-dose Lovenox-> eventual Eliquis given elevated risk score 4. Inhaled bronchodilators standing and PRN,O2 to keep SpO2 >90% 5. DVT and GI prophylaxis 6. Thank you for consultative opportunity
[2018-03-01] MEDS ORDERED: dilTIAZem HCL 50 MG/10 ML - 10 ML VIAL IVPUSH ONE (17:30)
[2018-03-01] MEDS: DILTIAZEM INJECTION 125 MG in DEXTROSE 5%-WATER - 100 ML IVPB SCH (17:42)
--- NOTE | 2018-03-01 19:41 | PN ---
Progress Note (short form) - Note Progress Note: Daughter at bedside - RN pt awake she says that he is usually conversant, awake today he is weak, not speaking much Has baseline right hemiparesis from prior CVA Vital Signs - 24 hr 02/28/18 02/28/18 02/28/18 19:50 20:44 20:45 Temperature 98.9 F 103.7 F H Pulse Rate 94 H 121 H Pulse Rate [ Apical] Respiratory 20 36 H Rate Blood Pressure 138/84 151/75 Blood Pressure [Left Arm] O2 Sat by Pulse 97 95 95 Oximetry (%) 02/28/18 03/01/18 03/01/18 21:55 00:15 00:23 Temperature 99.8 F H Pulse Rate Pulse Rate [ 78 128 H Apical] Respiratory 32 H 25 H Rate Blood Pressure Blood Pressure 132/84 175/91 H 163/99 [Left Arm] O2 Sat by Pulse 96 96 Oximetry (%) 03/01/18 03/01/18 03/01/18 01:47 02:55 04:15 Temperature Pulse Rate Pulse Rate [ 135 H Apical] Respiratory 25 H Rate Blood Pressure Blood Pressure 157/89 [Left Arm] O2 Sat by Pulse 98 97 98 Oximetry (%) 03/01/18 03/01/18 03/01/18 05:32 06:20 07:15 Temperature 99.7 F H 101.4 F H Pulse Rate Pulse Rate [ 113 H 117 H Apical] Respiratory 22 H 24 H Rate Blood Pressure Blood Pressure 152/86 159/96 [Left Arm] O2 Sat by Pulse 99 100 Oximetry (%) 03/01/18 03/01/18 03/01/18 08:18 09:00 11:14 Temperature 102.8 F H 102.4 F H Pulse Rate Pulse Rate [ 141 H 135 H 117 H Apical] Respiratory 24 H 24 H 26 H Rate Blood Pressure Blood Pressure 161/93 155/80 146/79 [Left Arm] O2 Sat by Pulse 100 98 98 Oximetry (%) 03/01/18 03/01/18 03/01/18 12:13 12:30 14:00 Temperature 102.1 F H Pulse Rate 116 H 84 Pulse Rate [ Apical] Respiratory 26 H 26 H Rate Blood Pressure 136/73 121/67 Blood Pressure [Left Arm] O2 Sat by Pulse 98 97 Oximetry (%) 03/01/18 17:42 Temperature Pulse Rate 152 H Pulse Rate [ Apical] Respiratory Rate Blood Pressure 121/67 Blood Pressure [Left Arm] O2 Sat by Pulse Oximetry (%) Current Medications Generic Name Dose Route Start Last Admin Trade Name Brayan PRN Reason Stop Dose Admin Acetaminophen 650 mg 03/01/18 01:29 03/01/18 11:31 Tylenol - PO 650 mg Q6H PRN Administration FEVER Acetaminophen 1,000 mg 03/01/18 12:57 03/01/18 13:47 Ofirmev Injection - IVPB 1,000 mg Q6H PRN Administration FEVER Albuterol/Ipratropium 1 amp 03/01/18 08:00 03/01/18 16:58 Duoneb - NEB 1 amp RQID FLORIN Administration Ascorbic Acid 500 mg 03/01/18 10:00 03/01/18 09:43 Vitamin C - PO 500 mg DAILY FLORIN Administration Aspirin 81 mg 03/01/18 10:00 03/01/18 09:42 Asa - PO 81 mg DAILY FLORIN Administration Atorvastatin Calcium 40 mg 03/01/18 22:00 Lipitor - PO HS FLORIN Clotrimazole 1 applic 03/01/18 10:03 Clotrimazole TP BID [facility] Docusate Sodium 200 mg 03/01/18 10:00 03/01/18 09:42 Colace - PO 200 mg DAILY FLORIN Administration Enoxaparin Sodium 100 mg 03/01/18 13:30 03/01/18 14:42 Lovenox - SQ 100 mg BID FLORIN Administration Ergocalciferol 50,000 unit 03/04/18 10:00 Drisdol - PO Sa@1000 [facility] Escitalopram Oxalate 10 mg 03/01/18 10:00 03/01/18 09:42 Lexapro - PO 10 mg DAILY FLORIN Administration Gabapentin 300 mg 03/01/18 06:00 03/01/18 15:39 Neurontin - PO 300 mg TID FLORIN Administration Piperacillin Sod/Tazobactam 100 mls @ 200 mls/hr 03/01/18 10:00 03/01/18 17: 55 Sod 4.5 gm/ Dextrose IVPB 200 mls/hr Q8H-IV FLORIN Administration Protocol Vancomycin HCl 1,000 mg in 250 mls @ 166.667 mls/hr 03/01/18 10:30 03/01/18 12:38 Vancomycin (Pre-Docked) IVPB 166.667 mls/hr Q12H FLORIN Administration Protocol Potassium Chloride 20 meq/ 1,010 mls @ 100 mls/hr 03/01/18 13:00 03/01/18 13: 54 Sodium Chloride IVPB 100 mls/hr ASDIR FLORIN Administration Diltiazem HCl 125 mg/ Dextrose 125 mls @ 5 mls/hr 03/01/18 17:30 03/01/18 17: 42 IVPB 5 mg/hr TITR FLORIN 5 mls/hr Administration Protocol 5 MG/HR Ibuprofen 400 mg 03/01/18 08:24 03/01/18 09:30 Motrin - PO 400 mg Q6H PRN Administration FEVER Insulin Detemir 17 units 03/01/18 22:00 Levemir Vial SQ HS FLORIN Lisinopril 30 mg 03/01/18 10:00 03/01/18 09:43 Prinivil PO 30 mg DAILY FLORIN Administration Methyl Salicylate 1 applic 03/01/18 01:30 Felix-Seaman - TP Q8H PRN BODY ACHES Multi-Ingredient Ointment 1 applic 03/01/18 10:00 03/01/18 11:15 Zinc Oxide TP 1 applic BID FLORIN Administration Non-Formulary Medication 1 spr 03/01/18 10:00 Azelastine Hcl [Azelastine Hcl] NS BID FLORIN Senna 2 tab 03/01/18 22:00 Senna - PO HS FLORIN Laboratory Results - last 24 hr 02/28/18 02/28/18 02/28/18 20:06 20:06 20:06 WBC 11.5 H RBC 5.19 Hgb 16.8 Hct 47.7 D MCV 92.0 MCH 32.5 MCHC 35.3 RDW 15.1 Plt Count 162 D MPV 10.0 D Absolute Neuts (auto) 7.4 Neutrophils % 64.1 Lymphocytes % 25.2 Monocytes % 10.3 H Eosinophils % 0.0 D Basophils % 0.4 Nucleated RBC % 0 PT with INR 13.90 H INR 1.18 H PTT (Actin FS) 24.1 L Anticoagulation Therapy Puncture Site ABG pH ABG pCO2 at Pt Temp ABG pO2 at Pt Temp ABG HCO3 ABG O2 Sat (Measured) ABG O2 Content ABG Base Excess [place] Test VBG pH POC VBG pCO2 POC VBG pO2 Mixed VBG HCO3 O2 Delivery Device Oxygen Flow Rate Vent Mode Vent Rate Mechanical Rate Pressure Support Vent Sodium Potassium Chloride Carbon Dioxide Anion Gap BUN Creatinine Creat Clearance w eGFR POC Glucometer Random Glucose Lactic Acid Calcium Phosphorus Magnesium Total Bilirubin AST ALT Alkaline Phosphatase Creatine Kinase Creatine Kinase Index CK-MB (CK-2) Troponin I Total Protein Albumin Urine Color Ltyellow Urine Appearance Clear Urine pH 5.0 Ur Specific [place] 1.033 Urine Protein 2+ H Urine Glucose (UA) 3+ H Urine Ketones Negative Urine Blood 2+ H Urine Nitrite Negative Urine Bilirubin Negative Urine Urobilinogen Negative Ur Leukocyte Esterase Negative Urine WBC (Auto) <1 Urine RBC (Auto) 13 Ur Epithelial Cells Rare 02/28/18 02/28/18 02/28/18 20:06 20:06 20:25 WBC RBC Hgb Hct MCV MCH MCHC RDW Plt Count MPV Absolute Neuts (auto) Neutrophils % Lymphocytes % Monocytes % Eosinophils % Basophils % Nucleated RBC % PT with INR INR PTT (Actin FS) Anticoagulation Therapy Puncture Site ABG pH ABG pCO2 at Pt Temp ABG pO2 at Pt Temp ABG HCO3 ABG O2 Sat (Measured) ABG O2 Content ABG Base Excess [place] Test VBG pH 7.44 H POC VBG pCO2 44.8 POC VBG pO2 49.1 H Mixed VBG HCO3 29.8 H O2 Delivery Device Oxygen Flow Rate Vent Mode Vent Rate Mechanical Rate Pressure Support Vent Sodium 145 Potassium 3.4 L Chloride 103 Carbon Dioxide 29 Anion Gap 12 BUN 23 H Creatinine 1.6 H Creat Clearance w eGFR 42.35 POC Glucometer Random Glucose 531 H* Lactic Acid 2.6 H* Calcium 8.8 Phosphorus Magnesium Total Bilirubin 1.1 H AST 22 ALT 19 Alkaline Phosphatase 65 Creatine Kinase Creatine Kinase Index CK-MB (CK-2) Troponin I Total Protein 7.9 Albumin 3.2 L Urine Color Urine Appearance Urine pH Ur Specific [place] Urine Protein Urine Glucose (UA) Urine Ketones Urine Blood Urine Nitrite Urine Bilirubin Urine Urobilinogen Ur Leukocyte Esterase Urine WBC (Auto) Urine RBC (Auto) Ur Epithelial Cells 02/28/18 02/28/18 02/28/18 20:25 22:20 22:20 WBC RBC Hgb Hct MCV MCH MCHC RDW Plt Count MPV Absolute Neuts (auto) Neutrophils % Lymphocytes % Monocytes % Eosinophils % Basophils % Nucleated RBC % PT with INR INR PTT (Actin FS) Anticoagulation Therapy Puncture Site ABG pH ABG pCO2 at Pt Temp ABG pO2 at Pt Temp ABG HCO3 ABG O2 Sat (Measured) ABG O2 Content ABG Base Excess [place] Test VBG pH POC VBG pCO2 POC VBG pO2 Mixed VBG HCO3 O2 Delivery Device Oxygen Flow Rate Vent Mode Vent Rate Mechanical Rate Pressure Support Vent Sodium Potassium Chloride Carbon Dioxide Anion Gap BUN Creatinine Creat Clearance w eGFR POC Glucometer Random Glucose Lactic Acid 1.9 Calcium Phosphorus Magnesium Total Bilirubin AST ALT Alkaline Phosphatase Creatine Kinase 625 H Creatine Kinase Index 0.2 CK-MB (CK-2) 1.5 Troponin I 0.71 H* 0.89 H* Total Protein Albumin Urine Color Urine Appearance Urine pH Ur Specific [place] Urine Protein Urine Glucose (UA) Urine Ketones Urine Blood Urine Nitrite Urine Bilirubin Urine Urobilinogen Ur Leukocyte Esterase Urine WBC (Auto) Urine RBC (Auto) Ur Epithelial Cells 02/28/18 03/01/18 03/01/18 23:40 01:52 02:10 WBC RBC Hgb Hct MCV MCH MCHC RDW Plt Count MPV Absolute Neuts (auto) Neutrophils % Lymphocytes % Monocytes % Eosinophils % Basophils % Nucleated RBC % PT with INR INR PTT (Actin FS) Anticoagulation Therapy No Result Required. Puncture Site Right radial ABG pH 7.47 H ABG pCO2 at Pt Temp 40.1 ABG pO2 at Pt Temp 184.0 H* D ABG HCO3 28.8 H ABG O2 Sat (Measured) 99.4 H ABG O2 Content 21.3 ABG Base Excess 5.2 H [place] Test No Result Required. VBG pH POC VBG pCO2 POC VBG pO2 Mixed VBG HCO3 O2 Delivery Device Non rebreather Oxygen Flow Rate 100 Vent Mode No Result Required. Vent Rate No Result Required. Mechanical Rate No Result Required. Pressure Support Vent No Result Required. Sodium Potassium Chloride Carbon Dioxide Anion Gap BUN Creatinine Creat Clearance w eGFR POC Glucometer > 400 > 400 Random Glucose Lactic Acid Calcium Phosphorus Magnesium Total Bilirubin AST ALT Alkaline Phosphatase Creatine Kinase Creatine Kinase Index CK-MB (CK-2) Troponin I Total Protein Albumin Urine Color Urine Appearance Urine pH Ur Specific [place] Urine Protein Urine Glucose (UA) Urine Ketones Urine Blood Urine Nitrite Urine Bilirubin Urine Urobilinogen Ur Leukocyte Esterase Urine WBC (Auto) Urine RBC (Auto) Ur Epithelial Cells 03/01/18 03/01/18 03/01/18 06:00 06:00 06:00 WBC 11.5 H RBC 4.89 Hgb 15.1 Hct 44.4 MCV 90.8 MCH 31.0 MCHC 34.1 RDW 14.9 Plt Count 132 L MPV 9.5 Absolute Neuts (auto) 7.4 Neutrophils % 64.8 Lymphocytes % 24.9 Monocytes % 9.7 Eosinophils % 0.1 D Basophils % 0.5 Nucleated RBC % 0 PT with INR INR PTT (Actin FS) Anticoagulation Therapy Puncture Site ABG pH ABG pCO2 at Pt Temp ABG pO2 at Pt Temp ABG HCO3 ABG O2 Sat (Measured) ABG O2 Content ABG Base Excess [place] Test VBG pH POC VBG pCO2 POC VBG pO2 Mixed VBG HCO3 O2 Delivery Device Oxygen Flow Rate Vent Mode Vent Rate Mechanical Rate Pressure Support Vent Sodium 150 H Potassium 3.0 L Chloride 112 H Carbon Dioxide 30 Anion Gap 8 BUN 20 H Creatinine 1.2 Creat Clearance w eGFR 59.02 POC Glucometer Random Glucose 282 H Lactic Acid Calcium 8.2 L Phosphorus 2.2 L Magnesium 2.4 Total Bilirubin AST ALT Alkaline Phosphatase Creatine Kinase 620 H Creatine Kinase Index 0.1 Cancelled CK-MB (CK-2) < 1.0 Cancelled Troponin I 0.93 H* Total Protein Albumin Urine Color Urine Appearance Urine pH Ur Specific [place] Urine Protein Urine Glucose (UA) Urine Ketones Urine Blood Urine Nitrite Urine Bilirubin Urine Urobilinogen Ur Leukocyte Esterase Urine WBC (Auto) Urine RBC (Auto) Ur Epithelial Cells S1 S2 irregular Lungs decreased, ronchi ABd- soft, NT No edema Sepsis, new onset Afib, pneumonia, Elevated troponins -- start full dose Lovenox sc -- spoke with ID -- on iv antibiotics -- Monitor for signs of bleeding telemetry cardiac enzymes swallow eval continue with meds Problem List - Problems (1) Demand ischemia Code(s): I24.8 - OTHER FORMS OF ACUTE ISCHEMIC HEART DISEASE (2) Elevated troponin Code(s): R74.8 - ABNORMAL LEVELS OF OTHER SERUM ENZYMES (3) Pneumonia Code(s): J18.9 - PNEUMONIA, UNSPECIFIED ORGANISM (4) Rapid atrial fibrillation Code(s): I48.91 - UNSPECIFIED ATRIAL FIBRILLATION (5) Sepsis Code(s): A41.9 - SEPSIS, UNSPECIFIED ORGANISM Qualifiers: Sepsis type: sepsis due to unspecified organism Qualified Code(s): A41.9 - Sepsis, unspecified organism
[2018-03-01] MEDS ORDERED: INSULIN (LEVEMIR) 100 UNITS/ML UNITS SQ SCH (22:00)
[2018-03-01] MEDS: SENNOSIDES 8.6MG TABLET (FP) PO SCH (22:01)
[2018-03-01] MEDS: CLOTRIMAZOLE 1% 10 ML TOPICAL SOLUTION TP SCH (22:02)
[2018-03-01] MEDS: ATORVASTATIN CA 40 MG TABLET (FP) PO SCH (22:02)
[2018-03-02] MEDS ORDERED: DEXTROSE 5%-WATER 100 ML IVPB ONE ×3 (01:58→16:07)
[2018-03-02] MEDS ORDERED: PIPERACILLIN/TAZOBACTAM 4.5 GM VIAL IVPB ONE ×3 (01:58→16:06)
[2018-03-02] MEDS: ACETAMINOPHEN 1000 MG/100 ML VIAL (NON FORMULARY) IVPB PRN ×2 (02:03→12:37)
[2018-03-02] MEDS: PIPERACILLIN/TAZOB 4.5 GM 4.5 GM in DEXTROSE 5%-WATER 100 ML IVPB SCH ×3 (02:04→17:33)
[2018-03-02] MEDS: GABAPENTIN 300 MG CAPSULE (FP) PO SCH ×3 (05:49→21:34)
[2018-03-02] MEDS: SODIUM CHLORIDE 0.45% 1,000 ML with POTASSIUM CHLORIDE 20 MEQ IVPB SCH ×2 (05:51→13:16)
[2018-03-02 06:29] LABS: HEMATOCRIT 42.8 % (35.4-49); HEMOGLOBIN 14.6 GM/dL (11.7-16.9); MCH 31.3 pg (25.7-33.7); MCHC 34.2 g/dl (32.0-35.9); MEAN CELL VOLUME 91.7 fl (80-96); PLATELET COUNT 125 K/MM3 (134-434); RBC 4.67 M/mm3 (4.00-5.60); RDW 15.1 % (11.9-15.9); WHITE BLOOD COUNT 12.8 K/mm3 (4.0-10.0)
[2018-03-02 07:35] LABS: ANION GAP 13 MMOL/L (8-16); BLOOD UREA NITROGEN 15 mg/dL (7-18); CALCIUM 7.8 mg/dL (8.5-10.1); CHLORIDE 106 mmol/L (98-107); CO2 28 mmol/L (21-32); SODIUM 148 mmol/L (136-145)
[2018-03-02 07:37] LABS: GLUCOSE,RANDOM 310 mg/dL (74-106)
[2018-03-02 07:38] LABS: POTASSIUM 2.8 mmol/L (3.5-5.1)
[2018-03-02] MEDS: ALBUTEROL SO4 2.5/IPRATROPIUM 0.5 INH SOL 3 ML VIAL.NEB. NEB SCH ×4 (08:08→20:21)
[2018-03-02] MEDS ORDERED: PT OWN MED DRAWER 7, Y5N ONE ×2 (09:54→15:08)
--- NOTE | 2018-03-02 09:57 | PN ---
Progress Note (short form) - Note Progress Note: awake spiking temps Vital Signs - 24 hr 03/01/18 03/01/18 03/01/18 11:14 12:13 12:30 Temperature 102.4 F H 102.1 F H Pulse Rate 116 H Pulse Rate [ 117 H Apical] Respiratory 26 H 26 H 26 H Rate Blood Pressure 136/73 Blood Pressure 146/79 [Left Arm] O2 Sat by Pulse 98 98 97 Oximetry (%) 03/01/18 03/01/18 03/01/18 14:00 17:42 18:00 Temperature Pulse Rate 84 152 H 113 H Pulse Rate [ Apical] Respiratory 24 H Rate Blood Pressure 121/67 121/67 134/76 Blood Pressure [Left Arm] O2 Sat by Pulse Oximetry (%) 03/01/18 03/01/18 03/01/18 20:05 20:30 20:37 Temperature 103.9 F H 103.1 F H Pulse Rate 125 H 130 H 140 H Pulse Rate [ Apical] Respiratory 24 H 22 H Rate Blood Pressure 141/83 141/83 165/91 Blood Pressure [Left Arm] O2 Sat by Pulse 96 Oximetry (%) 03/01/18 03/01/18 03/02/18 21:00 23:08 02:13 Temperature 103.2 F H Pulse Rate 153 H 135 H Pulse Rate [ Apical] Respiratory 22 H Rate Blood Pressure 146/81 148/91 Blood Pressure [Left Arm] O2 Sat by Pulse 96 Oximetry (%) 03/02/18 05:59 Temperature 102.2 F H Pulse Rate 113 H Pulse Rate [ Apical] Respiratory 22 H Rate Blood Pressure 136/84 Blood Pressure [Left Arm] O2 Sat by Pulse Oximetry (%) Current Medications Generic Name Dose Route Start Last Admin Trade Name Freq PRN Reason Stop Dose Admin Acetaminophen 650 mg 03/01/18 01:29 03/01/18 11:31 Tylenol - PO 650 mg Q6H PRN Administration FEVER Acetaminophen 1,000 mg 03/01/18 12:57 03/02/18 02:03 Ofirmev Injection - IVPB 1,000 mg Q6H PRN Administration FEVER Albuterol/Ipratropium 1 amp 03/01/18 08:00 03/02/18 08:08 Duoneb - NEB 1 amp RQID [facility] Administration Ascorbic Acid 500 mg 03/01/18 10:00 03/01/18 09:43 Vitamin C - PO 500 mg DAILY [facility] Administration Aspirin 81 mg 03/01/18 10:00 03/01/18 09:42 Asa - PO 81 mg DAILY [facility] Administration Atorvastatin Calcium 40 mg 03/01/18 22:00 03/01/18 22:02 Lipitor - PO 40 mg HS [facility] Administration Clotrimazole 1 applic 03/01/18 10:03 03/01/18 22:02 Clotrimazole TP 1 applic BID [facility] Administration Docusate Sodium 200 mg 03/01/18 10:00 03/01/18 09:42 Colace - PO 200 mg DAILY [facility] Administration Enoxaparin Sodium 100 mg 03/01/18 13:30 03/01/18 22:02 Lovenox - SQ 100 mg BID [facility] Administration Ergocalciferol 50,000 unit 03/04/18 10:00 Drisdol - PO Sa@1000 [facility] Escitalopram Oxalate 10 mg 03/01/18 10:00 03/01/18 09:42 Lexapro - PO 10 mg DAILY [facility] Administration Gabapentin 300 mg 03/01/18 06:00 03/02/18 05:49 Neurontin - PO 300 mg TID [facility] Administration Piperacillin Sod/Tazobactam 100 mls @ 200 mls/hr 03/01/18 10:00 03/02/18 02: 04 Sod 4.5 gm/ Dextrose IVPB 200 mls/hr Q8H-IV [facility] Administration Protocol Vancomycin HCl 1,000 mg in 250 mls @ 166.667 mls/hr 03/01/18 10:30 03/01/18 22:02 Vancomycin (Pre-Docked) IVPB 166.667 mls/hr Q12H [facility] Administration Protocol Potassium Chloride 20 meq/ 1,010 mls @ 100 mls/hr 03/01/18 13:00 03/02/18 05: 51 Sodium Chloride IVPB 100 mls/hr ASDIR [facility] Administration Diltiazem HCl 125 mg/ Dextrose 125 mls @ 5 mls/hr 03/01/18 17:30 03/01/18 23: 08 IVPB 10 mg/hr TITR [facility] 10 mls/hr Titration Protocol 5 MG/HR Potassium Chloride 10 meq in 100 mls @ 100 mls/hr 03/02/18 10:00 Potassium Chloride 10 Meq Premix Ivpb - IVPB 03/02/18 12:59 Q60M [facility] Ibuprofen 400 mg 03/01/18 08:24 03/01/18 09:30 Motrin - PO 400 mg Q6H PRN Administration FEVER Insulin Aspart 1 vial 03/02/18 11:00 Novolog Vial Sliding Scale - SQ ACHS [facility] Protocol Insulin Detemir 17 units 03/01/18 22:00 03/01/18 22:03 Levemir Vial SQ 17 units HS [facility] Administration Lisinopril 30 mg 03/01/18 10:00 03/01/18 09:43 Prinivil PO 30 mg DAILY [facility] Administration Methyl Salicylate 1 applic 03/01/18 01:30 Felix-Seaman - TP Q8H PRN BODY ACHES Multi-Ingredient Ointment 1 applic 03/01/18 10:00 03/01/18 22:03 Zinc Oxide TP 1 applic BID [facility] Administration Non-Formulary Medication 1 spr 03/01/18 10:00 Azelastine Hcl [Azelastine Hcl] NS BID [facility] Potassium Chloride 40 meq 03/02/18 10:00 K-Dur - PO 03/02/18 10:01 ONCE ONE Senna 2 tab 03/01/18 22:00 03/01/18 22:01 Senna - PO 2 tab HS [facility] Administration Laboratory Results - last 24 hr 03/01/18 03/01/18 03/02/18 06:00 21:57 05:30 WBC 12.8 H RBC 4.67 Hgb 14.6 Hct 42.8 MCV 91.7 MCH 31.3 MCHC 34.2 RDW 15.1 Plt Count 125 L MPV 10.0 Sodium Potassium Chloride Carbon Dioxide Anion Gap BUN Creatinine Creat Clearance w eGFR POC Glucometer 392 Random Glucose Calcium Creatine Kinase Index Cancelled CK-MB (CK-2) Cancelled Troponin I 03/02/18 05:30 WBC RBC Hgb Hct MCV MCH MCHC RDW Plt Count MPV Sodium 148 H Potassium 2.8 L* Chloride 106 Carbon Dioxide 28 Anion Gap 13 BUN 15 Creatinine 1.0 Creat Clearance w eGFR > 60 POC Glucometer Random Glucose 310 H* Calcium 7.8 L Creatine Kinase Index CK-MB (CK-2) Troponin I 0.98 H* S1 S2 irregular Lungs decreased, ronchi ABd- soft, NT No edema Sepsis, new onset Afib, pneumonia, Elevated troponins -- on full dose Lovenox sc -- on iv antibiotics -- Monitor for signs of bleeding telemetry cardiac enzymes noted- flat now swallow eval noted replace potassium continue with meds Problem List - Problems (1) Demand ischemia Code(s): I24.8 - OTHER FORMS OF ACUTE ISCHEMIC HEART DISEASE (2) Elevated troponin Code(s): R74.8 - ABNORMAL LEVELS OF OTHER SERUM ENZYMES (3) Pneumonia Code(s): J18.9 - PNEUMONIA, UNSPECIFIED ORGANISM (4) Rapid atrial fibrillation Code(s): I48.91 - UNSPECIFIED ATRIAL FIBRILLATION (5) Sepsis Code(s): A41.9 - SEPSIS, UNSPECIFIED ORGANISM Qualifiers: Sepsis type: sepsis due to unspecified organism Qualified Code(s): A41.9 - Sepsis, unspecified organism
[2018-03-02] MEDS ORDERED: POTASSIUM CHLORIDE TABS 20 MEQ TABLET.ER (FP) PO ONE (10:00)
[2018-03-02] MEDS: ASPIRIN 81 MG CHEWABLE TABLETS PO SCH (10:16)
[2018-03-02] MEDS: DOCUSATE SODIUM 100 MG CAPSULE (FP) PO SCH (10:16)
[2018-03-02] MEDS: ESCITALOPRAM OXALATE 10 MG TABLET (FP) PO SCH (10:18)
[2018-03-02] MEDS: ENOXAPARIN NA (PORCINE) 100 MG/1 ML DISP.SYRIN SQ SCH ×2 (10:18→21:34)
[2018-03-02] MEDS: ZINC OXIDE 20% TOPICAL OINTMENT 30 GM TUBE TP SCH ×2 (10:21→21:34)
[2018-03-02] MEDS: LISINOPRIL 10 MG TABLET (FP) PO SCH (10:23)
[2018-03-02] MEDS: CLOTRIMAZOLE 1% 10 ML TOPICAL SOLUTION TP SCH ×2 (10:25→21:34)
[2018-03-02] MEDS: KCL 10 MEQ IVPB 10 MEQ/100 ML INFUS.BAG IVPB SCH ×3 (10:37→12:37)
[2018-03-02] MEDS: VANCOMYCIN 1 GRAM (PRE-DOCKED) 1,000 MG/250 ML BAG IVPB SCH ×2 (11:08→23:59)
--- NOTE | 2018-03-02 11:20 | PN ---
Progress Note, Physician History of Present Illness: Still lethargic yet arousable, improved afib rate-control with PVC on Cardizem gtt, chest ct with RLL infiltrate and cardiomegaly. - Current Medication List Current Medications: Active Medications Acetaminophen (Tylenol -) 650 mg PO Q6H PRN PRN Reason: FEVER Last Admin: 03/01/18 11:31 Dose: 650 mg Acetaminophen (Ofirmev Injection -) 1,000 mg IVPB Q6H PRN PRN Reason: FEVER Last Admin: 03/02/18 02:03 Dose: 1,000 mg Albuterol/Ipratropium (Duoneb -) 1 amp NEB RQID [facility] Last Admin: 03/02/18 08:08 Dose: 1 amp Aspirin (Asa -) 81 mg PO DAILY [facility] Last Admin: 03/02/18 10:16 Dose: 81 mg Atorvastatin Calcium (Lipitor -) 40 mg PO HS [facility] Last Admin: 03/01/18 22:02 Dose: 40 mg Clotrimazole (Clotrimazole) 1 applic TP BID [facility] Last Admin: 03/02/18 10:25 Dose: 1 applic Docusate Sodium (Colace -) 200 mg PO DAILY [facility] Last Admin: 03/02/18 10:16 Dose: 200 mg Enoxaparin Sodium (Lovenox -) 100 mg SQ BID [facility] Last Admin: 03/02/18 10:18 Dose: 100 mg Escitalopram Oxalate (Lexapro -) 10 mg PO DAILY [facility] Last Admin: 03/02/18 10:18 Dose: 10 mg Gabapentin (Neurontin -) 300 mg PO TID [facility] Last Admin: 03/02/18 05:49 Dose: 300 mg Piperacillin Sod/Tazobactam (Sod 4.5 gm/ Dextrose) 100 mls @ 200 mls/hr IVPB Q8H-IV [facility]; Protocol Last Admin: 03/02/18 10:36 Dose: 200 mls/hr Vancomycin HCl (Vancomycin (Pre-Docked)) 1,000 mg in 250 mls @ 166.667 mls/hr IVPB Q12H [facility]; Protocol Last Admin: 03/02/18 11:08 Dose: 166.667 mls/hr Potassium Chloride 20 meq/ (Sodium Chloride) 1,010 mls @ 100 mls/hr IVPB ASDIR [facility] Last Admin: 03/02/18 05:51 Dose: 100 mls/hr Diltiazem HCl 125 mg/ Dextrose 125 mls @ 5 mls/hr IVPB TITR [facility]; Protocol Last Titration: 03/01/18 23:08 Dose: 10 mg/hr, 10 mls/hr Potassium Chloride (Potassium Chloride 10 Meq Premix Ivpb -) 10 meq in 100 mls @ 100 mls/hr IVPB Q60M [facility] Stop: 03/02/18 12:59 Last Admin: 03/02/18 10:37 Dose: 100 mls/hr Ibuprofen (Motrin -) 400 mg PO Q6H PRN PRN Reason: FEVER Last Admin: 03/01/18 09:30 Dose: 400 mg Insulin Aspart (Novolog Vial Sliding Scale -) 1 vial SQ [facility]; Protocol Insulin Detemir (Levemir Vial) 20 units SQ HS [facility] Lisinopril (Prinivil) 30 mg PO DAILY [facility] Last Admin: 03/02/18 10:23 Dose: 30 mg Methyl Salicylate (Felix-Seaman -) 1 applic TP Q8H PRN PRN Reason: BODY ACHES Multi-Ingredient Ointment (Zinc Oxide) 1 applic TP BID [facility] Last Admin: 03/02/18 10:21 Dose: 1 applic Senna (Senna -) 2 tab PO HS [facility] Last Admin: 03/01/18 22:01 Dose: 2 tab - Objective Vital Signs: Vital Signs Temperature 102.2 F H 03/02/18 05:59 Pulse Rate 113 H 03/02/18 05:59 Respiratory Rate 22 H 03/02/18 05:59 Blood Pressure 136/84 03/02/18 05:59 O2 Sat by Pulse Oximetry (%) 96 03/01/18 21:00 Constitutional: Yes: No Distress, Calm Neck: Yes: Supple Cardiovascular: Yes: Tachycardia, Pulse Irregular Respiratory: Yes: Regular, Diminished, On Nasal O2 Gastrointestinal: Yes: Soft, Hypoactive Bowel Sounds Edema: No Labs: CBC, BMP 03/02/18 05:30 03/02/18 05:30 INR, PTT INR 1.18 (0.83-1.09) H 02/28/18 20:06 - ....Imaging EKG: Report Reviewed (Tele: Afib with PVC) Problem List - Problems (1) Elevated troponin Code(s): R74.8 - ABNORMAL LEVELS OF OTHER SERUM ENZYMES (2) Rapid atrial fibrillation Code(s): I48.91 - UNSPECIFIED ATRIAL FIBRILLATION (3) Diastolic dysfunction Code(s): I51.9 - HEART DISEASE, UNSPECIFIED (4) H/O: CVA (cerebrovascular accident) Code(s): Z86.73 - PRSNL HX OF TIA (TIA), AND CEREB INFRC W/O RESID DEFICITS (5) Hyperlipidemia Code(s): E78.5 - HYPERLIPIDEMIA, UNSPECIFIED Qualifiers: Hyperlipidemia type: pure hypercholesterolemia Qualified Code(s): E78.00 - Pure hypercholesterolemia, unspecified; E78.0 - Pure hypercholesterolemia (6) Hypertension Code(s): I10 - ESSENTIAL (PRIMARY) HYPERTENSION Qualifiers: Hypertension type: essential hypertension Qualified Code(s): I10 - Essential (primary) hypertension (7) Pneumonia Code(s): J18.9 - PNEUMONIA, UNSPECIFIED ORGANISM Qualifiers: Pneumonia type: due to unspecified organism Laterality: right Lung location: lower lobe of lung Qualified Code(s): J18.1 - Lobar pneumonia, unspecified organism (8) Toxic metabolic encephalopathy Code(s): G92 - TOXIC ENCEPHALOPATHY (9) Demand ischemia Code(s): I24.8 - OTHER FORMS OF ACUTE ISCHEMIC HEART DISEASE (10) Hypokalemia Code(s): E87.6 - HYPOKALEMIA (11) Premature ventricular contraction Code(s): I49.3 - VENTRICULAR PREMATURE DEPOLARIZATION Assessment/Plan 12/20/2017 Echo: Normal LV size and fxn, tr MR, TR 1. RLL aspiration PNA - HCAP 2. LV Diastolic Dysfunction 3. Demand ischemia 4. Toxic-metabolic encephelopathy 5. 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 Rapid afib 7. PVC 8. Hypernatremia P:1. Empiric abx course to cover possible aspiration pneumonia-HCAP, free H20 repletion, replete K 2. Continue Cardizem gtt for rate-control, lisinopril, ASA 81 qd, Lipitor 40 qd 3. On full-dose Lovenox-> eventual Eliquis given elevated risk score 4. Inhaled bronchodilators standing and PRN,O2 to keep SpO2 >90% 5. DVT and GI prophylaxis
[2018-03-02] MEDS: INSULIN SLIDING SCALE (NOVOLOG) 1 VIAL SQ SCH ×3 (11:47→21:45)
--- NOTE | 2018-03-02 12:41 | PN ---
Progress Note, [employer] - Note Progress Note: Selected Entries 12/22/17 12/22/17 12/22/17 06:17 09:00 09:47 Breakfast 75% Lunch Supper Temperature 99.6 F 99.8 F H 12/22/17 12/22/17 12/22/17 12:32 14:58 22:38 Breakfast Lunch 100% Supper 100% Temperature 99.7 F H 98.9 F 12/23/17 02/28/18 02/28/18 05:39 19:50 20:45 Breakfast Lunch Supper Temperature 99.7 F H 98.9 F 103.7 F H 03/01/18 03/01/18 03/01/18 00:15 05:32 07:15 Breakfast Lunch Supper Temperature 99.8 F H 99.7 F H 101.4 F H 03/01/18 03/01/18 03/01/18 09:00 11:14 12:13 Breakfast Lunch Supper Temperature 102.8 F H 102.4 F H 102.1 F H 03/01/18 03/01/18 03/02/18 20:05 20:37 02:13 Breakfast Lunch Supper Temperature 103.9 F H 103.1 F H 103.2 F H 03/02/18 03/02/18 03/02/18 05:59 10:00 10:41 Breakfast 50% Lunch Supper Temperature 102.2 F H 102.1 F H Laboratory Tests 12/23/17 02/28/18 03/01/18 06:30 20:06 06:00 WBC 9.8 11.5 H 11.5 H 03/02/18 05:30 WBC 12.8 H Pt on chopped/nectar thick liquid. - Recommendations Diet Consistency: Dysphagia Pureed Medication Administration: Crushed with applesauce Liquids: Honey Thick (no straws. Single sips.) Monitor PO tolerance/ Pulmonary status.
[2018-03-02] MEDS: DILTIAZEM INJECTION 125 MG in DEXTROSE 5%-WATER - 100 ML IVPB SCH (17:33)
--- NOTE | 2018-03-02 18:18 | PN ---
Progress Note (short form) - Note Progress Note: continued fevers alert at bedside reports he has had abdominal distention for last 3 months +BM today Vital Signs Period Temp Pulse Resp BP Sys/Pham Pulse Ox Last 24 Hr 101.5 F-103.9 F 67-153 19-26 136-165/81-93 96-100 cor-rrr lungs decreased bs at bases abd firm distended, tympanitic ext no edema CBC, BMP 03/02/18 05:30 03/02/18 05:30 Microbiology 02/28/18 22:53 Urine - Urine Clean Catch Urine Culture - Final NO GROWTH OBTAINED 02/28/18 20:25 Blood - Peripheral Venous Blood Culture - Preliminary NO GROWTH OBTAINED AFTER 24 HOURS, INCUBATION TO CONTINUE FOR 4 DAYS. 02/28/18 20:25 Blood - Peripheral Venous Blood Culture - Preliminary NO GROWTH OBTAINED AFTER 24 HOURS, INCUBATION TO CONTINUE FOR 4 DAYS. 03/01/18 11:20 Urine For Antigen Detection Legionella Antigen - Final 03/01/18 11:20 Urine For Antigen Detection Streptococcus pneumoniae Antigen (M - Final 02/28/18 23:30 Nasopharyngeal Swab Influenza Types A,B Antigen - Final 02/28/18 23:30 Nasopharyngeal Swab - Final a/p continued fevers RLL pneumonia abdominal distention will obtain ct scan abd/pelvis continue vanco/zosyn Problem List - Problems (1) Sepsis Code(s): A41.9 - SEPSIS, UNSPECIFIED ORGANISM Qualifiers: Sepsis type: sepsis due to unspecified organism Qualified Code(s): A41.9 - Sepsis, unspecified organism (2) Pneumonia Code(s): J18.9 - PNEUMONIA, UNSPECIFIED ORGANISM (3) Hypoxemia Code(s): R09.02 - HYPOXEMIA (4) COPD exacerbation Code(s): J44.1 - CHRONIC OBSTRUCTIVE PULMONARY DISEASE W (ACUTE) EXACERBATION (5) Rapid atrial fibrillation Code(s): I48.91 - UNSPECIFIED ATRIAL FIBRILLATION (6) Elevated troponin Code(s): R74.8 - ABNORMAL LEVELS OF OTHER SERUM ENZYMES (7) Prolonged Q-T interval on ECG Code(s): R94.31 - ABNORMAL ELECTROCARDIOGRAM [ECG] [EKG]
[2018-03-02 19:54] LABS: ANION GAP 11 MMOL/L (8-16); BLOOD UREA NITROGEN 16 mg/dL (7-18); CALCIUM 8.1 mg/dL (8.5-10.1); CHLORIDE 107 mmol/L (98-107); CO2 27 mmol/L (21-32); POTASSIUM 3.3 mmol/L (3.5-5.1); SODIUM 146 mmol/L (136-145)
[2018-03-02 19:57] LABS: GLUCOSE,RANDOM 376 mg/dL (74-106)
[2018-03-02] MEDS: SENNOSIDES 8.6MG TABLET (FP) PO SCH (21:34)
[2018-03-02] MEDS: ATORVASTATIN CA 40 MG TABLET (FP) PO SCH (21:34)
[2018-03-02] MEDS: INSULIN (LEVEMIR) 100 UNITS/ML UNITS SQ SCH (21:44)
[2018-03-02] MEDS ORDERED: INSULIN (NOVOLOG) ASPART 100 UNITS/ML 10ML VIAL ONE (21:48)
[2018-03-02] MEDS: ACETAMINOPHEN 325 MG TABLET (FP) PO PRN (21:52)
[2018-03-03] MEDS ORDERED: DEXTROSE 5%-WATER 100 ML IVPB ONE ×4 (01:39→17:25)
[2018-03-03] MEDS ORDERED: PIPERACILLIN/TAZOBACTAM 4.5 GM VIAL IVPB ONE ×4 (01:39→17:25)
[2018-03-03] MEDS: PIPERACILLIN/TAZOB 4.5 GM 4.5 GM in DEXTROSE 5%-WATER 100 ML IVPB SCH ×3 (01:42→17:27)
[2018-03-03] MEDS: IBUPROFEN 400 MG TABLET (FP) PO PRN (01:42)
[2018-03-03] MEDS: DILTIAZEM INJECTION 125 MG in DEXTROSE 5%-WATER - 100 ML IVPB SCH (02:24)
[2018-03-03] MEDS: INSULIN SLIDING SCALE (NOVOLOG) 1 VIAL SQ SCH ×4 (06:31→22:00)
[2018-03-03] MEDS: GABAPENTIN 300 MG CAPSULE (FP) PO SCH ×2 (06:31→14:21)
[2018-03-03] MEDS ORDERED: INSULIN (NOVOLOG) ASPART 100 UNITS/ML 10ML VIAL ONE (06:44)
[2018-03-03 07:26] LABS: BASO % 0.8 % (0-2.0); EOS % 0.7 % (0-4.5); HEMATOCRIT 41.8 % (35.4-49); HEMOGLOBIN 14.2 GM/dL (11.7-16.9); MCH 31.3 pg (25.7-33.7); MEAN CELL VOLUME 92.1 fl (80-96); MEAN PLT VOLUME 10.3 fl (7.5-11.1); MONO % 8.2 % (3.8-10.2); NEUT % 59.3 % (42.8-82.8); PLATELET COUNT 129 K/MM3 (134-434); RBC 4.54 M/mm3 (4.00-5.60); RDW 14.8 % (11.9-15.9); WHITE BLOOD COUNT 10.7 K/mm3 (4.0-10.0)
[2018-03-03] MEDS: ALBUTEROL SO4 2.5/IPRATROPIUM 0.5 INH SOL 3 ML VIAL.NEB. NEB SCH ×4 (07:41→21:20)
[2018-03-03 08:13] LABS: ANION GAP 9 MMOL/L (8-16); BLOOD UREA NITROGEN 12 mg/dL (7-18); CHLORIDE 105 mmol/L (98-107); CO2 30 mmol/L (21-32); SODIUM 143 mmol/L (136-145)
[2018-03-03 08:28] LABS: GLUCOSE,RANDOM 306 mg/dL (74-106)
--- NOTE | 2018-03-03 10:06 | PN ---
Progress Note, Physician History of Present Illness: Increased O2 requorement, rapid afib with PVC on Cardizem gtt, abd/pelvic ct with RLL infiltrate and volvulus. - Current Medication List Current Medications: Active Medications Acetaminophen (Tylenol -) 650 mg PO Q6H PRN PRN Reason: FEVER Last Admin: 03/02/18 21:52 Dose: 650 mg Albuterol/Ipratropium (Duoneb -) 1 amp NEB RQID [facility] Last Admin: 03/03/18 07:41 Dose: 1 amp Aspirin (Asa -) 81 mg PO DAILY [facility] Last Admin: 03/02/18 10:16 Dose: 81 mg Atorvastatin Calcium (Lipitor -) 40 mg PO HS [facility] Last Admin: 03/02/18 21:34 Dose: 40 mg Clotrimazole (Clotrimazole) 1 applic TP BID [facility] Last Admin: 03/02/18 21:34 Dose: 1 applic Docusate Sodium (Colace -) 200 mg PO DAILY [facility] Last Admin: 03/02/18 10:16 Dose: 200 mg Enoxaparin Sodium (Lovenox -) 100 mg SQ BID [facility] Last Admin: 03/02/18 21:34 Dose: 100 mg Escitalopram Oxalate (Lexapro -) 10 mg PO DAILY [facility] Last Admin: 03/02/18 10:18 Dose: 10 mg Gabapentin (Neurontin -) 300 mg PO TID [facility] Last Admin: 03/03/18 06:31 Dose: 300 mg Piperacillin Sod/Tazobactam (Sod 4.5 gm/ Dextrose) 100 mls @ 200 mls/hr IVPB Q8H-IV [facility]; Protocol Last Admin: 03/03/18 01:42 Dose: 200 mls/hr Vancomycin HCl (Vancomycin (Pre-Docked)) 1,000 mg in 250 mls @ 166.667 mls/hr IVPB Q12H [facility]; Protocol Last Admin: 03/02/18 23:59 Dose: 166.667 mls/hr Potassium Chloride 20 meq/ (Sodium Chloride) 1,010 mls @ 100 mls/hr IVPB ASDIR [facility] Last Admin: 03/02/18 13:16 Dose: 100 mls/hr Diltiazem HCl 125 mg/ Dextrose 125 mls @ 5 mls/hr IVPB TITR [facility]; Protocol Last Admin: 03/03/18 02:24 Dose: 15 mg/hr, 15 mls/hr Ibuprofen (Motrin -) 400 mg PO Q6H PRN PRN Reason: FEVER Last Admin: 03/03/18 01:42 Dose: 400 mg Insulin Aspart (Novolog Vial Sliding Scale -) 1 vial SQ ACHS [facility]; Protocol Last Admin: 03/03/18 06:31 Dose: 8 units Insulin Detemir (Levemir Vial) 20 units SQ HS [facility] Last Admin: 03/02/18 21:44 Dose: 20 units Lisinopril (Prinivil) 30 mg PO DAILY [facility] Last Admin: 03/02/18 10:23 Dose: 30 mg Methyl Salicylate (Felix-Seaman -) 1 applic TP Q8H PRN PRN Reason: BODY ACHES Multi-Ingredient Ointment (Zinc Oxide) 1 applic TP BID [facility] Last Admin: 03/02/18 21:34 Dose: 1 applic Senna (Senna -) 2 tab PO HS [facility] Last Admin: 03/02/18 21:34 Dose: 2 tab - Objective Vital Signs: Vital Signs Temperature 102.1 F H 03/03/18 06:05 Pulse Rate 103 H 03/03/18 06:05 Respiratory Rate 20 03/03/18 06:05 Blood Pressure 135/91 03/03/18 06:05 O2 Sat by Pulse Oximetry (%) 96 03/02/18 21:00 Constitutional: Yes: Mild Distress Neck: Yes: Supple Cardiovascular: Yes: Tachycardia, Pulse Irregular Respiratory: Yes: Regular, Diminished Gastrointestinal: Yes: Distention, Hyperactive Bowel Sounds Edema: No Labs: CBC, BMP 03/03/18 06:15 03/03/18 06:15 INR, PTT INR 1.18 (0.83-1.09) H 02/28/18 20:06 - ....Imaging Cat Scan: Report Reviewed (RLL infiltrate and markedly dilated sigmoid with intermittent volvulus) Problem List - Problems (1) Elevated troponin Code(s): R74.8 - ABNORMAL LEVELS OF OTHER SERUM ENZYMES (2) Rapid atrial fibrillation Code(s): I48.91 - UNSPECIFIED ATRIAL FIBRILLATION (3) Diastolic dysfunction Code(s): I51.9 - HEART DISEASE, UNSPECIFIED (4) H/O: CVA (cerebrovascular accident) Code(s): Z86.73 - PRSNL HX OF TIA (TIA), AND CEREB INFRC W/O RESID DEFICITS (5) Hyperlipidemia Code(s): E78.5 - HYPERLIPIDEMIA, UNSPECIFIED Qualifiers: Hyperlipidemia type: pure hypercholesterolemia Qualified Code(s): E78.00 - Pure hypercholesterolemia, unspecified; E78.0 - Pure hypercholesterolemia (6) Hypertension Code(s): I10 - ESSENTIAL (PRIMARY) HYPERTENSION Qualifiers: Hypertension type: essential hypertension Qualified Code(s): I10 - Essential (primary) hypertension (7) Pneumonia Code(s): J18.9 - PNEUMONIA, UNSPECIFIED ORGANISM Qualifiers: Pneumonia type: due to unspecified organism Laterality: right Lung location: lower lobe of lung Qualified Code(s): J18.1 - Lobar pneumonia, unspecified organism (8) Toxic metabolic encephalopathy Code(s): G92 - TOXIC ENCEPHALOPATHY (9) Demand ischemia Code(s): I24.8 - OTHER FORMS OF ACUTE ISCHEMIC HEART DISEASE (10) Hypokalemia Code(s): E87.6 - HYPOKALEMIA (11) Premature ventricular contraction Code(s): I49.3 - VENTRICULAR PREMATURE DEPOLARIZATION (12) Volvulus of descending colon Code(s): K56.2 - VOLVULUS Assessment/Plan 12/20/2017 Echo: Normal LV size and fxn, tr MR, TR 1. RLL aspiration PNA - HCAP 2. Possible intermittent sigmoid volvulus 3. LV Diastolic Dysfunction 4. Demand ischemia 5. Toxic-metabolic encephelopathy 6. 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 Rapid afib 8. PVC 9. Hypernatremia P:1. Empiric abx course to cover possible aspiration pneumonia-HCAP, free H20 repletion, replete K 2. Continue Cardizem gtt and Lopressor for rate-control, lisinopril, ASA 81 qd, Lipitor 40 qd 3. Lovenox 100 bid pending likely procedure 4. Inhaled bronchodilators standing and PRN,O2 to keep SpO2 >90% 5. GI and surgery input for rectal tube volvulus decompression and definitive repair 6. DVT and GI prophylaxis
[2018-03-03] MEDS: VANCOMYCIN 1 GRAM (PRE-DOCKED) 1,000 MG/250 ML BAG IVPB SCH (10:16)
--- NOTE | 2018-03-03 10:47 | PN ---
Progress Note (short form) - Note Progress Note: pt seen/ examined in tele sob/ tachypnic. having fever ct scan noted/ reviewed chart reviewed abdomen distended ngt placed gi/ surgery consulted spoke with gi - also rectal tube placed-- distention decreased significantly on vm feels better after above interventions Vital Signs Temp 102.1 F H 03/03/18 06:05 Pulse 103 H 03/03/18 06:05 Resp 20 03/03/18 06:05 BP 135/91 03/03/18 06:05 Pulse Ox 96 03/02/18 21:00 Intake & Output 03/02/18 03/02/18 03/03/18 11:59 23:59 11:59 Intake Total 1550 2550 1155 Balance 1550 2550 1155 Weight 222 lb 222 lb 4.8 oz Intake: IV 1080 1380 805 1/2 Normal Saline 1,000 1000 1200 700 ml @ 100 mls/hr IVPB ASDIR [facility] with KCl - 20 Meq Rx#:[id number] Cardizem Injection - 125 80 180 105 mg In D5w - 100 ml @ 5 MG /HR 5 mls/hr IVPB TITR [facility] Rx#:[id number] IVPB 350 750 350 Oral 120 420 Other: Voiding Method Diaper Diaper Diaper # Unmeasured Voids Void 3 3 1 Bowel Movement No Yes Yes # Bowel Movements 2 Height 5 ft 8 in Body Mass Index (BMI) 33.7 Weight Measurement Method Built in [facility] Active Medications Acetaminophen (Tylenol -) 650 mg PO Q6H PRN PRN Reason: FEVER Last Admin: 03/02/18 21:52 Dose: 650 mg Albuterol/Ipratropium (Duoneb -) 1 amp NEB RQID [facility] Last Admin: 03/03/18 07:41 Dose: 1 amp Aspirin (Asa -) 81 mg PO DAILY [facility] Last Admin: 03/02/18 10:16 Dose: 81 mg Atorvastatin Calcium (Lipitor -) 40 mg PO HS [facility] Last Admin: 03/02/18 21:34 Dose: 40 mg Clotrimazole (Clotrimazole) 1 applic TP BID [facility] Last Admin: 03/02/18 21:34 Dose: 1 applic Docusate Sodium (Colace -) 200 mg PO DAILY [facility] Last Admin: 03/02/18 10:16 Dose: 200 mg Enoxaparin Sodium (Lovenox -) 100 mg SQ BID [facility] Last Admin: 03/02/18 21:34 Dose: 100 mg Escitalopram Oxalate (Lexapro -) 10 mg PO DAILY [facility] Last Admin: 03/02/18 10:18 Dose: 10 mg Gabapentin (Neurontin -) 300 mg PO TID [facility] Last Admin: 03/03/18 06:31 Dose: 300 mg Piperacillin Sod/Tazobactam (Sod 4.5 gm/ Dextrose) 100 mls @ 200 mls/hr IVPB Q8H-IV [facility]; Protocol Last Admin: 03/03/18 10:17 Dose: 200 mls/hr Vancomycin HCl (Vancomycin (Pre-Docked)) 1,000 mg in 250 mls @ 166.667 mls/hr IVPB Q12H [facility]; Protocol Last Admin: 03/03/18 10:16 Dose: 166.667 mls/hr Potassium Chloride 20 meq/ (Sodium Chloride) 1,010 mls @ 100 mls/hr IVPB ASDIR [facility] Last Admin: 03/02/18 13:16 Dose: 100 mls/hr Diltiazem HCl 125 mg/ Dextrose 125 mls @ 5 mls/hr IVPB TITR [facility]; Protocol Last Admin: 03/03/18 02:24 Dose: 15 mg/hr, 15 mls/hr Potassium Chloride (Potassium Chloride 10 Meq Premix Ivpb -) 10 meq in 100 mls @ 100 mls/hr IVPB Q60M [facility] Stop: 03/03/18 13:44 Insulin Aspart (Novolog Vial Sliding Scale -) 1 vial SQ ACHS [facility]; Protocol Last Admin: 03/03/18 06:31 Dose: 8 units Insulin Detemir (Levemir Vial) 20 units SQ [facility] Last Admin: 03/02/18 21:44 Dose: 20 units Lisinopril (Prinivil) 30 mg PO DAILY [facility] Last Admin: 03/02/18 10:23 Dose: 30 mg Methyl Salicylate (Felix-Seaman -) 1 applic TP Q8H PRN PRN Reason: BODY ACHES Multi-Ingredient Ointment (Zinc Oxide) 1 applic TP BID [facility] Last Admin: 03/02/18 21:34 Dose: 1 applic Senna (Senna -) 2 tab PO HS [facility] Last Admin: 03/02/18 21:34 Dose: 2 tab CBC, BMP 03/03/18 06:15 03/03/18 06:15 Microbiology 02/28/18 20:25 Blood Culture - Preliminary Blood - Peripheral Venous NO GROWTH OBTAINED AFTER 48 HOURS, INCUBATION TO CONTINUE FOR 3 DAYS. 02/28/18 20:25 Blood Culture - Preliminary Blood - Peripheral Venous NO GROWTH OBTAINED AFTER 48 HOURS, INCUBATION TO CONTINUE FOR 3 DAYS. 02/28/18 22:53 Urine Culture - Final Urine - Urine Clean Catch NO GROWTH OBTAINED ct scan -abdomen - reviewed. cxr / abg/ mag level added to todays labs. Physical Exam Constitutional: Yes: Moderate distress-- better on later exam after hour or so Neck: Yes: Supple Cardiovascular: Yes: Tachycardia, Pulse Irregular Respiratory: Yes: Regular, Diminished Gastrointestinal: Yes: Distended / firm Hyperactive Bowel Sounds-- soft later Edema: No. Neuro- awake a/p volvulus pneumonia fever rapid afib Uncontrolled diabetes electrolyte imbalance Pts condition is gaurded will transfer to icu -overnight Discussed with nursing staff/ icu attending / gi and i/d will follow cc time 45 min
--- NOTE | 2018-03-03 11:04 | CONSULT ---
Consult Consult Specialty:: General surgery Reason for Consultation:: volvulus - History of Present Illness Chief Complaint: abdominal pain History of Present Illness: 77yo male PMH HTN, HLD, CHF, CVA with residual right sided weakness, dysphagia, DM2, COPD presented with weakness and fever 103 from NH. He was noted to have abdominal distention. From previous records, He had a dilated sigmoid colon, bladder wall thickening and it noted that right hepatic lobe foci seen on previous imaging was not seen on current study. He was evaluated by Dr. Edenilson Easley for chronic atony of the colon without acute pathology. On CT scan of abdomen, worsened marked distended of the sigmoid colon was noted with tapering at the rectosigmoid junction with normal caliber proximal colon as well as a RLL Lung consolidation. We were asked to assess. 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) Cardio/Vascular: Yes: CHF, HTN, Hyperlipdemia Pulmonary: Yes: COPD Endocrine: Yes: Diabetes Mellitus Additional Medical History: history of dysphagia - Past Surgical History Additional Surgical History: history of tracheostomy in the past , left eye cataract surgery - Alcohol/Substance Use Hx Alcohol Use: No - Smoking History Smoking history: Unknown if ever smoked Have you smoked in the past 12 months: No Aproximately how many cigarettes per day: 0 If you are a former smoker, when did you quit?: 6 years ago Home Medications - Allergies Allergies/Adverse Reactions: Allergies Allergy/AdvReac Type Severity Reaction Status Date / Time No Known Allergies Allergy Verified 03/01/18 00:00 - Home Medications Home Medications: Ambulatory Orders Acetaminophen [Tylenol -] 650 mg PO Q4H PRN 02/28/18 Albuterol 2.5/Ipratropium 0.5 [Duoneb -] 1 neb IH QID 02/28/18 Amlodipine Besylate [Norvasc -] 10 mg PO DAILY 02/28/18 Amox-Tr/K Cl [Augmentin - 875Mg Tablet] 1 tab PO BID 02/28/18 Ascorbic Acid [Vitamin C -] 500 mg PO DAILY 02/28/18 Aspirin [ASA -] 81 mg PO DAILY 02/28/18 Atorvastatin Ca [Lipitor] 40 mg PO HS 02/28/18 Azelastine HCl 1 spr NS BID 02/28/18 Clotrimazole [Lotrimin 1% Solution -] 1 applic TP BID 02/28/18 Diltiazem [Cardizem -] 60 mg PO BID 02/28/18 Docusate Sodium [Colace -] 200 mg PO DAILY 02/28/18 Ergocalciferol [Vitamin D2] 50,000 unit PO WEEKLY 02/28/18 Escitalopram Oxalate [Lexapro -] 10 mg PO DAILY 02/28/18 Furosemide [Lasix -] 40 mg PO DAILY 02/28/18 Gabapentin [Neurontin -] 300 mg PO TID 02/28/18 Insulin (LOG) Aspart [NovoLOG -] 0 units SQ BID 02/28/18 Insulin Detemir [Levemir Flextouch] 17 unit SQ HS 02/28/18 Lidocaine 5% Top. Ointment [Xylocaine 5% Top. Ointment] 1 applic TP TID Lisinopril 30 mg PO DAILY 02/28/18 Nystatin 100,000 unit PO QID 02/28/18 Sennosides [Senna] 2 tab PO HS 02/28/18 Sennosides/Docusate Sodium [Senexon-S Tablet] 1 each PO HS 02/28/18 Zinc Oxide 20% Topical Oint 454 gm NR BID 02/28/18 Aa/Hydrolyzed Collagen, Whey [Lps 15-30 Liquid] 30 ml PO DAILY 03/01/18 Methyl Salicylate/Menth/Camph [Bengay Ultra Strength Cream] 1 applic TP TID 11/09 Review of Systems - Review of Systems Constitutional: denies: Chills, Fever Eyes: denies: Blind Spots, Recent Change in Vision HENT: denies: Difficult Swallowing, Toothache Neck: denies: Decreased ROM, Tenderness Cardiovascular: denies: Chest Pain, Palpitations Respiratory: reports: SOB. denies: Cough Gastrointestinal: reports: Abdominal Pain, Constipation. denies: Nausea, Vomiting Genitourinary: denies: Discharge, Dysuria Breasts: reports: No Symptoms Reported. denies: Pain Musculoskeletal: denies: Muscle Pain, Muscle Weakness Integumentary: denies: Change in Color, Erythema, Rash Neurological: reports: Confusion. denies: Seizure, Syncope Endocrine: denies: Unexplained Weight Gain, Unexplained Weight Loss Hematology/Lymphatic: denies: Easily Bruised, Excessive Bleeding Psychiatric: denies: Anxiety, Depression Physical Exam Vital Signs: Vital Signs Temperature 102.1 F H 03/03/18 06:05 Pulse Rate 103 H 03/03/18 06:05 Respiratory Rate 20 03/03/18 06:05 Blood Pressure 135/91 03/03/18 06:05 O2 Sat by Pulse Oximetry (%) 96 03/02/18 21:00 Constitutional: Yes: Well Nourished, Calm, Mild Distress, Obese Eyes: Yes: Conjunctiva Clear, EOM Intact HENT: Yes: Atraumatic, Normocephalic Neck: Yes: Supple, Trachea Midline Cardiovascular: Yes: Regular Rate and Rhythm, S1, S2 Respiratory: Yes: Regular, Cough, Diminished, On Venti-Mask, Rales, Rhonchi Gastrointestinal: Yes: Normal Bowel Sounds, Soft, Abdomen, Obese, Distention. No: Tenderness, Tenderness, Epigastrium, Tenderness, Rebound ...Rectal Exam: Yes: Sphincter Tone Normal. No: Hemorrhoids/External, Mass Renal/: No: CVA Tenderness - Left, CVA Tenderness - Right Musculoskeletal: No: Muscle Pain, Muscle Weakness Extremities: No: Cool, Cyanosis Integumentary: No: Jaundice, Petechiae, Rash Neurological: Yes: Alert, Oriented Psychiatric: Yes: Alert, Oriented Labs: CBC, BMP 03/03/18 06:15 03/03/18 06:15 Imaging - Results Chest X-ray: Report Reviewed, Image Reviewed X-ray: Report Reviewed, Image Reviewed Cat Scan: Report Reviewed (massivly dilated colon, volvulous or atony), Image Reviewed Problem List - Problems (1) Volvulus of sigmoid colon Assessment/Plan: 77yo male MMP RLL pneumonia recently decompressed with rectal tube now soft abdomen with out peritonitis. Would not reccomend immediate surgical intervention. Once improved he may be a candidate for elective sigmoid colectomy once he is optimized so he can avoid future return of volvulus. ICU management IV antibiotics keep rectal tube in place GI evaluation Serial abdominal exams and imaging as needed will follow Thank you for the opportunity to participate in the care of this patient. This patient is critically ill. Time spent reviewing chart, examining patient, talking with providers and/or family and documentation is 55 minutes. Code(s): K56.2 - VOLVULUS (2) Elevated troponin Code(s): R74.8 - ABNORMAL LEVELS OF OTHER SERUM ENZYMES (3) Hypoxemia Code(s): R09.02 - HYPOXEMIA (4) Pneumonia Code(s): J18.9 - PNEUMONIA, UNSPECIFIED ORGANISM (5) COPD (chronic obstructive pulmonary disease) Code(s): J44.9 - CHRONIC OBSTRUCTIVE PULMONARY DISEASE, UNSPECIFIED Qualifiers: Emphysema type: unspecified (6) Diabetes Code(s): E11.9 - TYPE 2 DIABETES MELLITUS WITHOUT COMPLICATIONS (7) Fecal retention Code(s): K59.00 - CONSTIPATION, UNSPECIFIED
--- NOTE | 2018-03-03 11:23 | CON.GI ---
Consult Consult Specialty:: GI Referred by:: Dr. Mookie Gunderson Reason for Consultation:: Sigmoid Volvulus - History of Present Illness Chief Complaint: Patient did not give chrief complaint History of Present Illness: 77M admitted 02/28/18 through [facility] ER for evaluation of fever from [place]. He was noted to have abdominal distention. From previous records, He had a dilated sigmoid colon, bladder wall thickening and it noted that right hepatic lobe foci seen on previous imaging was not seen on current study. He was evaluated by histotechnologist supervisor Dr. Edenilson Easley at that time. He felt this was chronic atony of the colon without acute pathology. He advised a bowel regimen. On CT scan of abdomen, worsened marked distended of the sigmoid colon was noted with tapering at the rectosigmoid junction with normal caliber proximal colon as well as a RLL Lung consolidation. Unclear if he has ever had a colonoscopy. He did complain of abdominal pain. 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 seen on prior imaging) Endocrine: Yes: Diabetes Mellitus Additional Medical History: history of dysphagia - Past Surgical History Additional Surgical History: history of tracheostomy in the past , left eye cataract surgery - Alcohol/Substance Use Hx Alcohol Use: No - Smoking History Smoking history: Unknown if ever smoked Have you smoked in the past 12 months: No Aproximately how many cigarettes per day: 0 If you are a former smoker, when did you quit?: 6 years ago - Social History Usual Living Arrangement: Alf History of Recent Travel: No Home Medications - Allergies Allergies/Adverse Reactions: Allergies Allergy/AdvReac Type Severity Reaction Status Date / Time No Known Allergies Allergy Verified 03/01/18 00:00 - Home Medications Home Medications: Ambulatory Orders Acetaminophen [Tylenol -] 650 mg PO Q4H PRN 02/28/18 Albuterol 2.5/Ipratropium 0.5 [Duoneb -] 1 neb IH QID 02/28/18 Amlodipine Besylate [Norvasc -] 10 mg PO DAILY 02/28/18 Amox-Tr/K Cl [Augmentin - 875Mg Tablet] 1 tab PO BID 02/28/18 Ascorbic Acid [Vitamin C -] 500 mg PO DAILY 02/28/18 Aspirin [ASA -] 81 mg PO DAILY 02/28/18 Atorvastatin Ca [Lipitor] 40 mg PO HS 02/28/18 Azelastine HCl 1 spr NS BID 02/28/18 Clotrimazole [Lotrimin 1% Solution -] 1 applic TP BID 02/28/18 Diltiazem [Cardizem -] 60 mg PO BID 02/28/18 Docusate Sodium [Colace -] 200 mg PO DAILY 02/28/18 Ergocalciferol [Vitamin D2] 50,000 unit PO WEEKLY 02/28/18 Escitalopram Oxalate [Lexapro -] 10 mg PO DAILY 02/28/18 Furosemide [Lasix -] 40 mg PO DAILY 02/28/18 Gabapentin [Neurontin -] 300 mg PO TID 02/28/18 Insulin (LOG) Aspart [NovoLOG -] 0 units SQ BID 02/28/18 Insulin Detemir [Levemir Flextouch] 17 unit SQ HS 02/28/18 Lidocaine 5% Top. Ointment [Xylocaine 5% Top. Ointment] 1 applic TP TID Lisinopril 30 mg PO DAILY 02/28/18 Nystatin 100,000 unit PO QID 02/28/18 Sennosides [Senna] 2 tab PO HS 02/28/18 Sennosides/Docusate Sodium [Senexon-S Tablet] 1 each PO HS 02/28/18 Zinc Oxide 20% Topical Oint 454 gm NR BID 02/28/18 Aa/Hydrolyzed Collagen, Whey [Lps 15-30 Liquid] 30 ml PO DAILY 03/01/18 Methyl Salicylate/Menth/Camph [Bengay Ultra Strength Cream] 1 applic TP TID 11/09 Family Disease History - Family Disease History Family History: Unable to Obtain Review of Systems - Review of Systems Gastrointestinal: reports: Abdominal Pain, Diarrhea (scant mucoid BM per nusring ) Physical Exam-GI Vital Signs: Vital Signs Temperature 102.1 F H 03/03/18 06:05 Pulse Rate 103 H 03/03/18 06:05 Respiratory Rate 20 03/03/18 06:05 Blood Pressure 135/91 03/03/18 06:05 O2 Sat by Pulse Oximetry (%) 96 03/02/18 21:00 Constitutional: Yes: Moderate Distress (tachypnic) Eyes: No: Sclera Icterus Cardiovascular: Yes: Tachycardia, Pulse Irregular Respiratory: Yes: Diminished (at bases bilaterally R>L), Rhonchi (at bases b/l) Gastrointestinal Inspection: Yes: Distention, Hernia (reducible umbilical hernia ). No: Scars ...Auscultate: Yes: Normoactive Bowel Sounds (High pitched bowel sounds) ...Palpate: Yes: Tenderness (TTP mid abdomen). No: Guarding, Tenderness, Rebound ...Percussion: Yes: Tympanitic ...Rectal Exam: Yes: Other (No external lesions, no masses palpated. Rectal tube x 2 inserted with passage of copious air and marked improvement of abdominal distention. patient was turned from left lateral to right lateral with further passage of some air from the rectal tube. Post insertion the abdomen was soft, no longer tympanitic and he stated that abdominal pain resolved.) Edema: No (No LE edema) Neurological: Yes: Other (Awake) Labs: CBC, BMP 03/03/18 06:15 03/03/18 06:15 INR, PTT INR 1.18 (0.83-1.09) H 02/28/18 20:06 Hepatic Panel Total Bilirubin 1.1 mg/dL (0.2-1) H 02/28/18 20:06 AST 22 U/L (15-37) 02/28/18 20:06 ALT 19 U/L (13-61) 02/28/18 20:06 Alkaline Phosphatase 65 U/L (45-117) 02/28/18 20:06 Albumin 3.2 g/dl (3.4-5.0) L 02/28/18 20:06 Imaging - Results Cat Scan: Report Reviewed, Image Reviewed Problem List - Problems (1) Volvulus of sigmoid colon Assessment/Plan: Suspect worsening of chronic atonic sigmoid colon distention with component of chronic sigmoid volvulus. This is likely precipitated by Mr. Quinonez's limited mobility, PNA, and electrolyte abnormalities. Clinically improved after rectal tube insertion. Advised: Follow-up AXR ordered Keep rectal tubes in place. Flush rectal tubes with 60cc sterile water twice per shift Keep patient in left lateral position for 30 minutes Correct electrolyte abnormalities. Check magnesium and phosphorous Glycemic control Surgical evaluation. I suspect that this will recur. When medically optimized , consideration could be given for surgical intervention. Code(s): K56.2 - VOLVULUS
[2018-03-03 11:29] LABS: ARTERIAL BLOOD GAS BASE EXCESS 3.8 meq/l (-2-2); ARTERIAL BLOOD GAS PCO2 43.6 mmHg (35-45); ARTERIAL BLOOD GAS pH 7.43 (7.35-7.45)
[2018-03-03 11:33] LABS: ALLENS TEST POSITIVE
[2018-03-03 12:02] LABS: MAGNESIUM 2.1 mg/dL (1.8-2.4); PHOSPHOROUS 2.3 mg/dL (2.5-4.9)
[2018-03-03] MEDS: KCL 10 MEQ IVPB 10 MEQ/100 ML INFUS.BAG IVPB SCH ×3 (12:24→14:21)
[2018-03-03] MEDS: ENOXAPARIN NA (PORCINE) 100 MG/1 ML DISP.SYRIN SQ SCH ×2 (12:24→22:00)
--- NOTE | 2018-03-03 12:58 | PN ---
Teaching Attending Note Name of Resident: Silvia Ingram ATTENDING PHYSICIAN STATEMENT I saw and evaluated the patient. I reviewed the resident's note and discussed the case with the resident. I agree with the resident's findings and plan as documented. SUBJECTIVE: Patient seen and examined in the ICU. Lethargic but arousable. Transferred due to respiratory distress and volvulus. CT imaging revelaed marked distention of the sigmoid colon with tapering at the rectosigmoid junction. Also noted is a RLL consolidation. NGT has been placed. Both surgical and GI evaluations have been called. Intake & Output 02/28/18 03/01/18 03/02/18 03/03/18 23:59 23:59 23:59 23:59 Intake Total 1670 4100 1155 Output Total 320 Balance 1350 4100 1155 Weight 222 lb 10.67 oz 222 lb 4.8 oz 222 lb 222 lb 4.8 oz Last Vital Signs Temp Pulse Resp BP Pulse Ox 102.1 F H 103 H 20 135/91 96 03/03/18 06:05 03/03/18 06:05 03/03/18 06:05 03/03/18 06:05 03/02/18 21:00 Active Medications Acetaminophen (Tylenol -) 650 mg PO Q6H PRN PRN Reason: FEVER Last Admin: 03/02/18 21:52 Dose: 650 mg Albuterol/Ipratropium (Duoneb -) 1 amp NEB RQID [facility] Last Admin: 03/03/18 11:17 Dose: 1 amp Aspirin (Asa -) 81 mg PO DAILY [facility] Last Admin: 03/02/18 10:16 Dose: 81 mg Atorvastatin Calcium (Lipitor -) 40 mg PO HS [facility] Last Admin: 03/02/18 21:34 Dose: 40 mg Clotrimazole (Clotrimazole) 1 applic TP BID [facility] Last Admin: 03/02/18 21:34 Dose: 1 applic Docusate Sodium (Colace -) 200 mg PO DAILY [facility] Last Admin: 03/02/18 10:16 Dose: 200 mg Enoxaparin Sodium (Lovenox -) 100 mg SQ BID [facility] Last Admin: 03/02/18 21:34 Dose: 100 mg Escitalopram Oxalate (Lexapro -) 10 mg PO DAILY [facility] Last Admin: 03/02/18 10:18 Dose: 10 mg Gabapentin (Neurontin -) 300 mg PO TID [facility] Last Admin: 03/03/18 06:31 Dose: 300 mg Piperacillin Sod/Tazobactam (Sod 4.5 gm/ Dextrose) 100 mls @ 200 mls/hr IVPB Q8H-IV [facility]; Protocol Last Admin: 03/03/18 10:17 Dose: 200 mls/hr Vancomycin HCl (Vancomycin (Pre-Docked)) 1,000 mg in 250 mls @ 166.667 mls/hr IVPB Q12H [facility]; Protocol Last Admin: 03/03/18 10:16 Dose: 166.667 mls/hr Potassium Chloride 20 meq/ (Sodium Chloride) 1,010 mls @ 100 mls/hr IVPB ASDIR [facility] Last Admin: 03/02/18 13:16 Dose: 100 mls/hr Diltiazem HCl 125 mg/ Dextrose 125 mls @ 5 mls/hr IVPB TITR [facility]; Protocol Last Admin: 03/03/18 02:24 Dose: 15 mg/hr, 15 mls/hr Potassium Chloride (Potassium Chloride 10 Meq Premix Ivpb -) 10 meq in 100 mls @ 100 mls/hr IVPB Q60M [facility] Stop: 03/03/18 14:14 Insulin Aspart (Novolog Vial Sliding Scale -) 1 vial SQ ACHS [facility]; Protocol Last Admin: 03/03/18 06:31 Dose: 8 units Insulin Detemir (Levemir Vial) 20 units SQ HS [facility] Last Admin: 03/02/18 21:44 Dose: 20 units Lisinopril (Prinivil) 30 mg PO DAILY [facility] Last Admin: 03/02/18 10:23 Dose: 30 mg Methyl Salicylate (Felix-Seaman -) 1 applic TP Q8H PRN PRN Reason: BODY ACHES Multi-Ingredient Ointment (Zinc Oxide) 1 applic TP BID [facility] Last Admin: 03/02/18 21:34 Dose: 1 applic Senna (Senna -) 2 tab PO HS [facility] Last Admin: 03/02/18 21:34 Dose: 2 tab Constitutional: Yes: Moderate Distress, lethargic Eyes: No: Sclera Icterus Cardiovascular: Yes: Tachycardia, Pulse Irregular Respiratory: Yes: Diminished at bases, Bilateral scattered rhonchi Gastrointestinal Inspection: Yes: Distention, reducible umbilical hernia, no scars, (+) BS Edema: No Neurological: Yes: Lethargic Labs: Laboratory Results - last 24 hr 03/02/18 03/02/18 03/02/18 16:31 18:45 21:32 WBC RBC Hgb Hct MCV MCH MCHC RDW Plt Count MPV Absolute Neuts (auto) Neutrophils % Lymphocytes % Monocytes % Eosinophils % Basophils % Nucleated RBC % Puncture Site ABG pH ABG pCO2 at Pt Temp ABG pO2 at Pt Temp ABG HCO3 ABG O2 Sat (Measured) ABG O2 Content ABG Base Excess [place] Test O2 Delivery Device Oxygen Flow Rate Mechanical Rate PEEP Sodium 146 H Potassium 3.3 L Chloride 107 Carbon Dioxide 27 Anion Gap 11 BUN 16 Creatinine 1.0 Creat Clearance w eGFR > 60 POC Glucometer 327 355 Random Glucose 376 H* Calcium 8.1 L Phosphorus Magnesium Troponin I Vancomycin Pre-Dose 03/03/18 03/03/18 03/03/18 05:30 05:58 06:15 WBC RBC Hgb Hct MCV MCH MCHC RDW Plt Count MPV Absolute Neuts (auto) Neutrophils % Lymphocytes % Monocytes % Eosinophils % Basophils % Nucleated RBC % Puncture Site ABG pH ABG pCO2 at Pt Temp ABG pO2 at Pt Temp ABG HCO3 ABG O2 Sat (Measured) ABG O2 Content ABG Base Excess [place] Test O2 Delivery Device Oxygen Flow Rate Mechanical Rate PEEP Sodium 143 Potassium 3.0 L Chloride 105 Carbon Dioxide 30 Anion Gap 9 BUN 12 Creatinine 1.0 Creat Clearance w eGFR > 60 POC Glucometer 303 Random Glucose 306 H* Calcium 8.0 L Phosphorus Cancelled 2.3 L Magnesium 2.1 Troponin I 0.61 H* Vancomycin Pre-Dose 03/03/18 03/03/18 03/03/18 06:15 09:30 11:15 WBC 10.7 H RBC 4.54 Hgb 14.2 Hct 41.8 MCV 92.1 MCH 31.3 MCHC 34.0 RDW 14.8 Plt Count 129 L MPV 10.3 Absolute Neuts (auto) 6.3 Neutrophils % 59.3 Lymphocytes % 31.0 D Monocytes % 8.2 Eosinophils % 0.7 D Basophils % 0.8 Nucleated RBC % 0 Puncture Site Right radial ABG pH 7.43 ABG pCO2 at Pt Temp 43.6 ABG pO2 at Pt Temp 152.0 H* D ABG HCO3 28.2 H ABG O2 Sat (Measured) 99.0 H ABG O2 Content 19.1 ABG Base Excess 3.8 H [place] Test Positive O2 Delivery Device Venti mask Oxygen Flow Rate 40% Mechanical Rate Yes PEEP 0.0 Sodium Potassium Chloride Carbon Dioxide Anion Gap BUN Creatinine Creat Clearance w eGFR POC Glucometer Random Glucose Calcium Phosphorus Magnesium Troponin I Vancomycin Pre-Dose 9.8 L Imaging - Results Cat Scan: Report Reviewed, Image Reviewed Problem List (1) Volvulus of descending colon Code(s): K56.2 - VOLVULUS (2) Elevated troponin Code(s): R74.8 - ABNORMAL LEVELS OF OTHER SERUM ENZYMES (3) Rapid atrial fibrillation Code(s): I48.91 - UNSPECIFIED ATRIAL FIBRILLATION (4) Diastolic dysfunction Code(s): I51.9 - HEART DISEASE, UNSPECIFIED (5) H/O: CVA (cerebrovascular accident) Code(s): Z86.73 - PRSNL HX OF TIA (TIA), AND CEREB INFRC W/O RESID DEFICITS (6) Hyperlipidemia Code(s): E78.5 - HYPERLIPIDEMIA, UNSPECIFIED Qualifiers: Hyperlipidemia type: pure hypercholesterolemia Qualified Code(s): E78.00 - Pure hypercholesterolemia, unspecified; E78.0 - Pure hypercholesterolemia (7) Hypertension Code(s): I10 - ESSENTIAL (PRIMARY) HYPERTENSION Qualifiers: Hypertension type: essential hypertension Qualified Code(s): I10 - Essential (primary) hypertension (8) Pneumonia Code(s): J18.9 - PNEUMONIA, UNSPECIFIED ORGANISM Qualifiers: Pneumonia type: due to unspecified organism Laterality: right Lung location: lower lobe of lung Qualified Code(s): J18.1 - Lobar pneumonia, unspecified organism (9) Toxic metabolic encephalopathy Code(s): G92 - TOXIC ENCEPHALOPATHY (10) Demand ischemia Code(s): I24.8 - OTHER FORMS OF ACUTE ISCHEMIC HEART DISEASE (11) Hypokalemia Code(s): E87.6 - HYPOKALEMIA (12) Premature ventricular contraction Code(s): I49.3 - VENTRICULAR PREMATURE DEPOLARIZATION Assessment/Plan RLL PNA (HCAP) Toxic-metabolic encephelopathy Rapid afib NGT Rectal tube Aspiration precautions O2 as needed Cardizem IV for rate control AC with Lovenox BID ABX per ID ASA BD TX ICU monitoring Dr Patel Critical care time spent in reviewing chart, evaluating patient and formulating plan - 36 minutes.
[2018-03-03] MEDS: ESCITALOPRAM OXALATE 10 MG TABLET (FP) PO SCH (13:24)
[2018-03-03] MEDS: DOCUSATE SODIUM 100 MG CAPSULE (FP) PO SCH (13:24)
[2018-03-03] MEDS: CLOTRIMAZOLE 1% 10 ML TOPICAL SOLUTION TP SCH ×2 (13:35→22:00)
[2018-03-03] MEDS: ASPIRIN 81 MG CHEWABLE TABLETS PO SCH (13:36)
[2018-03-03] MEDS: LISINOPRIL 10 MG TABLET (FP) PO SCH (13:36)
[2018-03-03] MEDS: ZINC OXIDE 20% TOPICAL OINTMENT 30 GM TUBE TP SCH ×2 (13:36→22:00)
[2018-03-03] MEDS: SODIUM CHLORIDE 0.45% 1,000 ML with POTASSIUM CHLORIDE 20 MEQ IVPB SCH (13:49)
--- NOTE | 2018-03-03 14:07 | CONSULT ---
Consultation: REQUESTING PROVIDER:Dr. Gunderson CONSULT REQUEST: We have been asked to medically evaluate this patient for respiratory distress. HISTORY OF PRESENT ILLNESS: Patient is a 77 year old male with past medical history HTN, HLD, DM, COPD, diastolic CHF, Ischemic CVA (with residual right-sided weakness), and chronic dysphagia (previously on trach), [facility] after a 2-day history of fever and lethargy. At the ED, patient was noted to be tachycardic at 150s, tachypneic, and febrile with Tmax 103. He had leukocytosis and lactic acidosis. CXR revealed RLL consolidation. Patient was given IV fluids and started on empiric antibiotics. He remained to be hypoxic on nasal cannula, and put in 40% venti mask. Patient was also noted to have abdominal distention. CT of the abdomen revealed marked distention of the sigmoid colon with tapering at the rectosigmoid junction. NGT was placed. Surgery and GI consulted. Rectal tube put in by GI, and relief of distention noted. Patient remained febrile and lethargic but arousable. He was transferred to the ICU for closer monitoring of respiratory distress and volvulus. REVIEW OF SYSTEMS: CONSTITUTIONAL: generalized weakness Absent: fever, chills, diaphoresis, malaise, loss of appetite, weight change HEENT: Absent: rhinorrhea, nasal congestion, throat pain, throat swelling, difficulty swallowing, mouth swelling, ear pain, eye pain, visual changes CARDIOVASCULAR: Absent: chest pain, syncope, palpitations, irregular heart rate, lightheadedness , peripheral edema RESPIRATORY: cough, shortness of breath, dyspnea with exertion Absent: orthopnea, wheezing, stridor, hemoptysis GASTROINTESTINAL: abdominal distension Absent: abdominal pain, nausea, vomiting, diarrhea, constipation, melena, hematochezia GENITOURINARY: Absent: dysuria, frequency, urgency, hesitancy, hematuria, flank pain, genital pain MUSCULOSKELETAL: Absent: myalgia, arthralgia, joint swelling, back pain, neck pain SKIN: Absent: rash, itching, pallor HEMATOLOGIC/IMMUNOLOGIC: Absent: easy bleeding, easy bruising, lymphadenopathy, frequent infections ENDOCRINE: Absent: unexplained weight gain, unexplained weight loss, heat intolerance, cold intolerance NEUROLOGIC: Absent: headache, focal weakness or paresthesias, dizziness, unsteady gait, seizure, mental status changes, bladder or bowel incontinence PSYCHIATRIC: Absent: anxiety, depression, suicidal or homicidal ideation, hallucinations. PHYSICAL EXAMINATION Vital Signs - 24 hr 03/02/18 03/02/18 03/02/18 17:00 17:33 20:25 Temperature 101.5 F H 101.1 F H Pulse Rate 93 H 122 H 126 H Respiratory 19 20 Rate Blood Pressure 143/93 155/81 154/75 O2 Sat by Pulse Oximetry (%) 03/02/18 03/03/18 03/03/18 21:00 01:00 02:24 Temperature 102.1 F H Pulse Rate 68 125 H Respiratory 20 Rate Blood Pressure 118/75 118/65 O2 Sat by Pulse 96 Oximetry (%) 03/03/18 03/03/18 03/03/18 06:05 09:00 12:48 Temperature 102.1 F H 102.4 F H Pulse Rate 103 H 152 H 132 H Respiratory 20 26 H 31 H Rate Blood Pressure 135/91 132/90 O2 Sat by Pulse 97 Oximetry (%) GENERAL: Lethargic but arousable, on 40% venti mask, in moderate distress EYES: PERRLA, EOMI, sclera anicteric, conjunctiva clear. LUNGS: +scattered rhonchi bilaterally HEART: Irregularly irregular, tachycardic, without murmur, rub or gallop. ABDOMEN: Soft, nontender, mildly distended, normoactive bowel sounds. UPPER EXTREMITIES: 2+ pulses, warm, well-perfused. No peripheral edema. LOWER EXTREMITIES: 2+ pulses, warm, well-perfused. +1 peripheral edema SKIN: Warm, dry, normal turgor, no rashes or lesions noted. Laboratory Results - last 24 hr 03/02/18 03/02/18 03/02/18 16:31 18:45 21:32 WBC RBC Hgb Hct MCV MCH MCHC RDW Plt Count MPV Absolute Neuts (auto) Neutrophils % Lymphocytes % Monocytes % Eosinophils % Basophils % Nucleated RBC % Puncture Site ABG pH ABG pCO2 at Pt Temp ABG pO2 at Pt Temp ABG HCO3 ABG O2 Sat (Measured) ABG O2 Content ABG Base Excess [place] Test O2 Delivery Device Oxygen Flow Rate Mechanical Rate PEEP Sodium 146 H Potassium 3.3 L Chloride 107 Carbon Dioxide 27 Anion Gap 11 BUN 16 Creatinine 1.0 Creat Clearance w eGFR > 60 POC Glucometer 327 355 Random Glucose 376 H* Lactic Acid Calcium 8.1 L Phosphorus Magnesium Troponin I Vancomycin Pre-Dose 03/03/18 03/03/18 03/03/18 05:30 05:58 06:15 WBC RBC Hgb Hct MCV MCH MCHC RDW Plt Count MPV Absolute Neuts (auto) Neutrophils % Lymphocytes % Monocytes % Eosinophils % Basophils % Nucleated RBC % Puncture Site ABG pH ABG pCO2 at Pt Temp ABG pO2 at Pt Temp ABG HCO3 ABG O2 Sat (Measured) ABG O2 Content ABG Base Excess [place] Test O2 Delivery Device Oxygen Flow Rate Mechanical Rate PEEP Sodium 143 Potassium 3.0 L Chloride 105 Carbon Dioxide 30 Anion Gap 9 BUN 12 Creatinine 1.0 Creat Clearance w eGFR > 60 POC Glucometer 303 Random Glucose 306 H* Lactic Acid Calcium 8.0 L Phosphorus Cancelled 2.3 L Magnesium 2.1 Troponin I 0.61 H* Vancomycin Pre-Dose 03/03/18 03/03/18 03/03/18 06:15 09:30 11:15 WBC 10.7 H RBC 4.54 Hgb 14.2 Hct 41.8 MCV 92.1 MCH 31.3 MCHC 34.0 RDW 14.8 Plt Count 129 L MPV 10.3 Absolute Neuts (auto) 6.3 Neutrophils % 59.3 Lymphocytes % 31.0 D Monocytes % 8.2 Eosinophils % 0.7 D Basophils % 0.8 Nucleated RBC % 0 Puncture Site Right radial ABG pH 7.43 ABG pCO2 at Pt Temp 43.6 ABG pO2 at Pt Temp 152.0 H* D ABG HCO3 28.2 H ABG O2 Sat (Measured) 99.0 H ABG O2 Content 19.1 ABG Base Excess 3.8 H [place] Test Positive O2 Delivery Device Venti mask Oxygen Flow Rate 40% Mechanical Rate Yes PEEP 0.0 Sodium Potassium Chloride Carbon Dioxide Anion Gap BUN Creatinine Creat Clearance w eGFR POC Glucometer Random Glucose Lactic Acid Calcium Phosphorus Magnesium Troponin I Vancomycin Pre-Dose 9.8 L 03/03/18 03/03/18 12:45 12:45 WBC RBC Hgb Hct MCV MCH MCHC RDW Plt Count MPV Absolute Neuts (auto) Neutrophils % Lymphocytes % Monocytes % Eosinophils % Basophils % Nucleated RBC % Puncture Site ABG pH ABG pCO2 at Pt Temp ABG pO2 at Pt Temp ABG HCO3 ABG O2 Sat (Measured) ABG O2 Content ABG Base Excess [place] Test O2 Delivery Device Oxygen Flow Rate Mechanical Rate PEEP Sodium Potassium Chloride Carbon Dioxide Anion Gap BUN Creatinine Creat Clearance w eGFR POC Glucometer Random Glucose Lactic Acid 1.8 Calcium Phosphorus Magnesium Troponin I 0.58 H Vancomycin Pre-Dose Active Medications Generic Name Dose Route Start Last Admin Trade Name Freq PRN Reason Stop Dose Admin Acetaminophen 650 mg 03/01/18 01:29 03/02/18 21:52 Tylenol - PO 650 mg Q6H PRN Administration FEVER Albuterol/Ipratropium 1 amp 03/01/18 08:00 03/03/18 11:17 Duoneb - NEB 1 amp RQID [facility] Administration Aspirin 81 mg 03/01/18 10:00 03/03/18 13:36 Asa - PO Not Given DAILY [facility] Atorvastatin Calcium 40 mg 03/01/18 22:00 03/02/18 21:34 Lipitor - PO 40 mg HS [facility] Administration Clotrimazole 1 applic 03/01/18 10:03 03/03/18 13:35 Clotrimazole TP Not Given BID [facility] Docusate Sodium 200 mg 03/01/18 10:00 03/03/18 13:24 Colace - PO Not Given DAILY [facility] Enoxaparin Sodium 100 mg 03/01/18 13:30 03/03/18 12:24 Lovenox - SQ 100 mg BID [facility] Administration Escitalopram Oxalate 10 mg 03/01/18 10:00 03/03/18 13:24 Lexapro - PO Not Given DAILY [facility] Gabapentin 300 mg 03/01/18 06:00 03/03/18 06:31 Neurontin - PO 300 mg TID [facility] Administration Piperacillin Sod/Tazobactam 100 mls @ 200 mls/hr 03/01/18 10:00 03/03/18 10: 17 Sod 4.5 gm/ Dextrose IVPB 200 mls/hr Q8H-IV [facility] Administration Protocol Vancomycin HCl 1,000 mg in 250 mls @ 166.667 mls/hr 03/01/18 10:30 03/03/18 10:16 Vancomycin (Pre-Docked) IVPB 166.667 mls/hr Q12H [facility] Administration Protocol Potassium Chloride 20 meq/ 1,010 mls @ 100 mls/hr 03/01/18 13:00 03/03/18 13: 49 Sodium Chloride IVPB Not Given ASDIR [facility] Diltiazem HCl 125 mg/ Dextrose 125 mls @ 5 mls/hr 03/01/18 17:30 03/03/18 02: 24 IVPB 15 mg/hr TITR [facility] 15 mls/hr Administration Protocol 5 MG/HR Potassium Chloride 10 meq in 100 mls @ 100 mls/hr 03/03/18 11:15 03/03/18 13: 26 Potassium Chloride 10 Meq Premix Ivpb - IVPB 03/03/18 14:14 100 mls/hr Q60M [facility] Administration Insulin Aspart 1 vial 03/02/18 11:00 03/03/18 13:37 Novolog Vial Sliding Scale - SQ Not Given ACHS [facility] Protocol Insulin Detemir 20 units 03/02/18 09:58 03/02/18 21:44 Levemir Vial SQ 20 units HS [facility] Administration Lisinopril 30 mg 03/01/18 10:00 03/03/18 13:36 Prinivil PO Not Given DAILY [facility] Methyl Salicylate 1 applic 03/01/18 01:30 Felix-Seaman - TP Q8H PRN BODY ACHES Multi-Ingredient Ointment 1 applic 03/01/18 10:00 03/03/18 13:36 Zinc Oxide TP Not Given BID [facility] Senna 2 tab 03/01/18 22:00 03/02/18 21:34 Senna - PO 2 tab HS [facility] Administration ASSESSMENT/PLAN: Patient is a 77 year old male with past medical history HTN, HLD, DM, COPD, diastolic CHF, Ischemic CVA (with residual right-sided weakness), and chronic dysphagia (previously on trach), [facility] after a 2-day history of fever and lethargy. #Pulmonology 1)Acute Hypoxic Respiratory Failure likely 2/2 Pneumonia -On venti mask 40% -IV Zosyn 4.5gm q8h -IV fluids -Blood Cultures, influenza swab, urine legionalla and pneumococcal -- negative 2)COPD -Duonebs QID #Gastroenterology 1)Sigmoid colon volvulus -CT abdomen and pelvis: Markedly distended sigmoid colon that is suspicious for an intermittent volvulus. Fecal retention proximal to the distended sigmoid colon. -GI (Dr. Alves) consulted. Recommendations appreciated. -Rectal tube inserted. -Flush rectal tubes with 60cc sterile water twice per shift -AXR. -correct electrolytes abnormalities. -Surgery (Dr. Sharif) consulted. #Cardiology 1)Atrial Fibrillation -patient remains tachycardic at >120 after max dose of cardizem drip -Cardiology (Dr. Beltrán) consulted. Recommendations appreciated. -Continue IV cardizem ggt -Lopressor 25mg NGT PRN 2)Diastolic CHF -Hold home lasix -Continue Lovenox 100mg sq bid 3)Hypertension -Hold home anti-hypertensive medications -on IV cardizem drip and Lopressor -monitor BP 4)Hyperlipidemia -Continue Atorvastatin 40mg PO HS 5)Troponinemia -peaked at 0.98, now 0.56 -likely 2/2 demand ischemia 6)QTc prolongation: 810ms -Avoid agents that increase QTc #Infectious Disease 1)Sepsis likely 2/2 Pneumonia -CXR: RLL consolidation -Continue IV NS +20meq KCl -ID (Dr. Peters) consulted. Recommendations appreciated. -Continue Zosyn 4.5 gm q8h -Vancomycin discontinued. -Blood cx, urine cx, influenza swab, urine legionella, pneumococcal, c.diff - negative #Nephrology 1)Hypokalemia: K 3.0 -IV 10 meq KCl x3 bags -IV 15 meq potassium phosphate -repeat bmp and phos -will continue to monitor and replete PRN 2)Hypophosphatemia: 2.3 -Potassium phosphate ordered -will continue to monitor #Endocrinology 1)DM -Insulin Levemir 20 units sq hs -Insulin sliding scale ACHS -BGM ACHS #Neurology 1)Hx of Ischemic CVA (with residual right-sided weakness) -continue ASA and atorvastatin #FEN -IV NS +20meq KCl -hypoK, replete PRN -routine bmp monitoring -NPO except meds #Prophylaxis 1)DVT - on Lovenox 100mg sq BID #Disposition -Transferred to ICU for closer monitoring Dispo: We will continue to follow the patient. Thank you for this consultative opportunity. Visit type - Emergency Visit Emergency Visit: Yes ED Registration Date: 02/28/18 Care time: The patient presented to the Emergency Department on the above date and was hospitalized for further evaluation of their emergent condition. - New Patient This patient is new to me today: Yes Date on this admission: 03/04/18 - Critical Care Critical Care patient: Yes Total Critical Care Time (in minutes): 45 Critical Care Statement: The care of this patient involved high complexity decision making to prevent further life threatening deterioration of the patient 's condition and/or to evaluate & treat vital organ system(s) failure or risk of failure.
--- NOTE | 2018-03-03 14:17 | PN ---
Progress Note (short form) - Note Progress Note: continued fevers seen earlier this am on telemetry and case discussed with Dr Jones and Dr Gunderson rectal tube placed by Dr Jones alert on ventimask Vital Signs Period Temp Pulse Resp BP Sys/Pham Pulse Ox Last 24 Hr 101.1 F-102.4 F 68-152 19-31 118-155/65-93 96-97 cor-rrr lungs decreased bs at bases abd much softer ext no edema CBC, BMP 03/03/18 06:15 03/03/18 06:15 Microbiology 03/03/18 06:00 Stool Clostridium difficile Antigen (AMY) - Final-negatve 03/03/18 06:00 Stool Clostridium difficile Toxin Assay - Final-negative 03/01/18 20:30 Nares - Mrsa Screen - Right MRSA Screen - Final NO MRSA ISOLATED 03/01/18 20:30 Nares - Mrsa Screen - Left MRSA Screen - Final NO MRSA ISOLATED 02/28/18 20:25 Blood - Peripheral Venous Blood Culture - Preliminary NO GROWTH OBTAINED AFTER 48 HOURS, INCUBATION TO CONTINUE FOR 3 DAYS. 02/28/18 20:25 Blood - Peripheral Venous Blood Culture - Preliminary NO GROWTH OBTAINED AFTER 48 HOURS, INCUBATION TO CONTINUE FOR 3 DAYS. 02/28/18 22:53 Urine - Urine Clean Catch Urine Culture - Final NO GROWTH OBTAINED 03/01/18 11:20 Urine For Antigen Detection Legionella Antigen - Final 03/01/18 11:20 Urine For Antigen Detection Streptococcus pneumoniae Antigen (M - Final 02/28/18 23:30 Nasopharyngeal Swab Influenza Types A,B Antigen - Final 02/28/18 23:30 Nasopharyngeal Swab - Final a/p continued fevers RLL pneumonia no MRSA sigmoid distention with intermittent volvolus?- gi and surgery f/u rapid afib continue zosyn d/c vancomycin Problem List - Problems (1) Sepsis Code(s): A41.9 - SEPSIS, UNSPECIFIED ORGANISM Qualifiers: Qualified Code(s): A41.9 - Sepsis, unspecified organism (2) Pneumonia Code(s): J18.9 - PNEUMONIA, UNSPECIFIED ORGANISM (3) Hypoxemia Code(s): R09.02 - HYPOXEMIA (4) COPD exacerbation Code(s): J44.1 - CHRONIC OBSTRUCTIVE PULMONARY DISEASE W (ACUTE) EXACERBATION (5) Rapid atrial fibrillation Code(s): I48.91 - UNSPECIFIED ATRIAL FIBRILLATION (6) Elevated troponin Code(s): R74.8 - ABNORMAL LEVELS OF OTHER SERUM ENZYMES (7) Prolonged Q-T interval on ECG Code(s): R94.31 - ABNORMAL ELECTROCARDIOGRAM [ECG] [EKG]
[2018-03-03] MEDS ORDERED: POTASSIUM PHOSPHATE 15 MM in SODIUM CHLORIDE 250 ML IVPB ONE (15:34)
[2018-03-03] MEDS: METOPROLOL TARTRATE 25 MG TABLET (FP) NGT SCH (16:38)
[2018-03-03] MEDS: ACETAMINOPHEN 325 MG TABLET (FP) PO PRN (17:27)
[2018-03-03 17:39] LABS: ARTERIAL BLOOD GAS PCO2 39.9 mmHg (35-45); ARTERIAL BLOOD GAS PO2 97.7 mmHg (70-100); ARTERIAL BLOOD GAS pH 7.46 (7.35-7.45)
[2018-03-03 17:40] LABS: ARTERIAL BLD GAS O2 SATURATION 97.4 % (90-98.9); ARTERIAL BLOOD GAS BASE EXCESS 4.8 meq/l (-2-2)
[2018-03-03] MEDS ORDERED: dilTIAZem HCL 50 MG/10 ML - 10 ML VIAL ONE (21:51)
[2018-03-03] MEDS: INSULIN (LEVEMIR) 100 UNITS/ML UNITS SQ SCH (22:00)
[2018-03-03 22:19] LABS: BLOOD UREA NITROGEN 10 mg/dL (7-18); CALCIUM 7.4 mg/dL (8.5-10.1); GLUCOSE,RANDOM 250 mg/dL (74-106); POTASSIUM 3.3 mmol/L (3.5-5.1); SODIUM 143 mmol/L (136-145)
[2018-03-03 22:20] LABS: ANION GAP 9 MMOL/L (8-16); CHLORIDE 104 mmol/L (98-107); CO2 29 mmol/L (22-28); CREATININE 0.8 mg/dL (0.55-1.3)
[2018-03-04] MEDS: ATORVASTATIN CA 40 MG TABLET (FP) PO SCH ×2 (01:27→22:55)
[2018-03-04] MEDS: SENNOSIDES 8.6MG TABLET (FP) PO SCH ×2 (01:28→23:19)
[2018-03-04] MEDS: METOPROLOL TARTRATE 25 MG TABLET (FP) NGT SCH ×3 (01:28→22:55)
[2018-03-04] MEDS ORDERED: PIPERACILLIN/TAZOBACTAM 4.5 GM VIAL IVPB ONE ×4 (01:30→23:59)
[2018-03-04] MEDS: KCL 10 MEQ IVPB 10 MEQ/100 ML INFUS.BAG IVPB SCH ×6 (01:38→23:53)
[2018-03-04] MEDS: GABAPENTIN 300 MG CAPSULE (FP) PO SCH ×4 (01:43→22:56)
[2018-03-04] MEDS: PIPERACILLIN/TAZOB 4.5 GM 4.5 GM in DEXTROSE 5%-WATER 100 ML IVPB SCH ×3 (02:02→17:21)
[2018-03-04] MEDS ORDERED: PT OWN MED DRAWER 7, Y5N ONE ×2 (02:07→09:47)
[2018-03-04] MEDS ORDERED: dilTIAZem HCL 50 MG/10 ML - 10 ML VIAL ONE ×2 (03:38→17:46)
[2018-03-04 06:18] LABS: BASO % 0.5 % (0-2.0); EOS % 1.5 % (0-4.5); HEMATOCRIT 39.7 % (35.4-49); HEMOGLOBIN 13.6 GM/dL (11.7-16.9); LYMPH % 23.8 % (8-40); MCH 31.3 pg (25.7-33.7); MCHC 34.3 g/dl (32.0-35.9); MEAN CELL VOLUME 91.4 fl (80-96); MONO % 7.7 % (3.8-10.2); NEUT % 66.5 % (42.8-82.8); PLATELET COUNT 123 K/MM3 (134-434); RBC 4.34 M/mm3 (4.00-5.60); RDW 14.8 % (11.9-15.9)
[2018-03-04 06:35] LABS: ALBUMIN 2.5 g/dl (3.4-5.0); ALK PHOS 41 U/L (45-117); ANION GAP 7 MMOL/L (8-16); BILIRUBIN,TOTAL 1.4 mg/dL (0.2-1); BLOOD UREA NITROGEN 8 mg/dL (7-18); CALCIUM 7.6 mg/dL (8.5-10.1); CHLORIDE 104 mmol/L (98-107); CO2 31 mmol/L (22-28); CREATININE 0.8 mg/dL (0.55-1.3); GLUCOSE,RANDOM 198 mg/dL (74-106); MAGNESIUM 2.1 mg/dL (1.8-2.4); PHOSPHOROUS 2.7 mg/dL (2.5-4.9); POTASSIUM 3.3 mmol/L (3.5-5.1); SGOT/AST 23 U/L (15-37); SGPT/ALT 18 U/L (13-61); SODIUM 142 mmol/L (136-145); TOT PROT 6.2 g/dl (6.4-8.2)
[2018-03-04 06:40] LABS: ARTERIAL BLD GAS O2 SATURATION 97.4 % (90-98.9); ARTERIAL BLOOD GAS BASE EXCESS 6.4 meq/l (-2-2); ARTERIAL BLOOD GAS PCO2 39.1 mmHg (35-45); ARTERIAL BLOOD GAS PO2 94.5 mmHg (70-100); ARTERIAL BLOOD GAS pH 7.49 (7.35-7.45)
[2018-03-04] MEDS: INSULIN SLIDING SCALE (NOVOLOG) 1 VIAL SQ SCH ×4 (07:00→22:57)
[2018-03-04 07:18] LABS: ALLENS TEST POSITIVE
[2018-03-04] MEDS ORDERED: POTASSIUM CHLORIDE 20 MEQ PREMIX IVPB 100 ML IVPB ONE (08:02)
[2018-03-04] MEDS: ALBUTEROL SO4 2.5/IPRATROPIUM 0.5 INH SOL 3 ML VIAL.NEB. NEB SCH ×4 (08:20→21:35)
[2018-03-04] MEDS: SODIUM CHLORIDE 0.45% 1,000 ML with POTASSIUM CHLORIDE 20 MEQ IVPB SCH ×2 (09:39→15:02)
--- NOTE | 2018-03-04 09:39 | PN ---
Progress Note, Physician Chief Complaint: Events noted Monitor sinus with APC and burst of atrial arrhythmias History of Present Illness: Patient was seen and examined. Awake but does not verbalize. Chart was reviewed Denies chest pain or SOB - Current Medication List Current Medications: Active Medications Acetaminophen (Tylenol -) 650 mg PO Q6H PRN PRN Reason: FEVER Last Admin: 03/03/18 17:27 Dose: 650 mg Albuterol/Ipratropium (Duoneb -) 1 amp NEB RQID [facility] Last Admin: 03/03/18 21:20 Dose: 1 amp Aspirin (Asa -) 81 mg PO DAILY [facility] Last Admin: 03/03/18 13:36 Dose: Not Given Atorvastatin Calcium (Lipitor -) 40 mg PO HS [facility] Last Admin: 03/04/18 01:27 Dose: Not Given Clotrimazole (Clotrimazole) 1 applic TP BID [facility] Last Admin: 03/03/18 22:00 Dose: 1 applic Docusate Sodium (Colace -) 200 mg PO DAILY [facility] Last Admin: 03/03/18 13:24 Dose: Not Given Enoxaparin Sodium (Lovenox -) 100 mg SQ BID [facility] Last Admin: 03/03/18 22:00 Dose: 100 mg Escitalopram Oxalate (Lexapro -) 10 mg PO DAILY [facility] Last Admin: 03/03/18 13:24 Dose: Not Given Gabapentin (Neurontin -) 300 mg PO TID [facility] Last Admin: 03/04/18 06:32 Dose: Not Given Piperacillin Sod/Tazobactam (Sod 4.5 gm/ Dextrose) 100 mls @ 200 mls/hr IVPB Q8H-IV [facility]; Protocol Last Admin: 03/04/18 02:02 Dose: 200 mls/hr Potassium Chloride 20 meq/ (Sodium Chloride) 1,010 mls @ 100 mls/hr IVPB ASDIR [facility] Last Admin: 03/03/18 13:49 Dose: Not Given Diltiazem HCl 125 mg/ Dextrose 125 mls @ 5 mls/hr IVPB TITR [facility]; Protocol Last Admin: 03/03/18 02:24 Dose: 15 mg/hr, 15 mls/hr Potassium Chloride (Potassium Chloride 10 Meq Premix Ivpb -) 10 meq in 100 mls @ 100 mls/hr IVPB Q60M [facility] Stop: 03/04/18 10:14 Insulin Aspart (Novolog Vial Sliding Scale -) 1 vial SQ [facility]; Protocol Last Admin: 03/04/18 07:00 Dose: 4 units Insulin Detemir (Levemir Vial) 20 units SQ [facility] Last Admin: 03/03/18 22:00 Dose: 20 units Lisinopril (Prinivil) 30 mg PO DAILY [facility] Last Admin: 03/03/18 13:36 Dose: Not Given Methyl Salicylate (Felix-Seaman -) 1 applic TP Q8H PRN PRN Reason: BODY ACHES Metoprolol Tartrate (Lopressor -) 25 mg NGT BID [facility] Last Admin: 03/04/18 01:28 Dose: Not Given Multi-Ingredient Ointment (Zinc Oxide) 1 applic TP BID [facility] Last Admin: 03/03/18 22:00 Dose: 1 applic Senna (Senna -) 2 tab PO [facility] Last Admin: 03/04/18 01:28 Dose: Not Given - Objective Vital Signs: Vital Signs Temperature 99 F 03/04/18 06:00 Pulse Rate 88 03/04/18 08:00 Respiratory Rate 26 H 03/04/18 08:00 Blood Pressure 137/80 03/04/18 08:00 O2 Sat by Pulse Oximetry (%) 97 03/03/18 21:00 HENT: Yes: Atraumatic Neck: Yes: Supple Cardiovascular: Yes: Regular Rate and Rhythm, Pulse Irregular, S1, S2 Respiratory: Yes: Diminished Gastrointestinal: Yes: Soft. No: Tenderness Edema: No Labs: CBC, BMP 03/04/18 05:30 03/04/18 05:30 Problem List - Problems (1) Demand ischemia Code(s): I24.8 - OTHER FORMS OF ACUTE ISCHEMIC HEART DISEASE (2) Pneumonia Code(s): J18.9 - PNEUMONIA, UNSPECIFIED ORGANISM (3) Premature ventricular contraction Code(s): I49.3 - VENTRICULAR PREMATURE DEPOLARIZATION (4) Rapid atrial fibrillation Code(s): I48.91 - UNSPECIFIED ATRIAL FIBRILLATION (5) Sepsis Code(s): A41.9 - SEPSIS, UNSPECIFIED ORGANISM Qualifiers: Sepsis type: sepsis due to unspecified organism Qualified Code(s): A41.9 - Sepsis, unspecified organism (6) Volvulus of sigmoid colon Code(s): K56.2 - VOLVULUS (7) COPD (chronic obstructive pulmonary disease) Code(s): J44.9 - CHRONIC OBSTRUCTIVE PULMONARY DISEASE, UNSPECIFIED Qualifiers: Emphysema type: unspecified (8) Diabetes Code(s): E11.9 - TYPE 2 DIABETES MELLITUS WITHOUT COMPLICATIONS (9) Diastolic dysfunction Code(s): I51.9 - HEART DISEASE, UNSPECIFIED (10) H/O: CVA (cerebrovascular accident) Code(s): Z86.73 - PRSNL HX OF TIA (TIA), AND CEREB INFRC W/O RESID DEFICITS (11) Hyperlipidemia Code(s): E78.5 - HYPERLIPIDEMIA, UNSPECIFIED Qualifiers: Hyperlipidemia type: pure hypercholesterolemia Qualified Code(s): E78.00 - Pure hypercholesterolemia, unspecified; E78.0 - Pure hypercholesterolemia (12) Hypertension Code(s): I10 - ESSENTIAL (PRIMARY) HYPERTENSION Qualifiers: Hypertension type: essential hypertension Qualified Code(s): I10 - Essential (primary) hypertension (13) Toxic metabolic encephalopathy Code(s): G92 - TOXIC ENCEPHALOPATHY Assessment/Plan 1. RLL aspiration pneumonia 2. Possible intermittent sigmoid volvulus 3. LV Diastolic Dysfunction 4. Demand ischemia 5. Toxic-metabolic encephalopathy 6. History of CVA with residual right-sided weakness and chronic dysphagia 7. PAF 8. PVC 9. Hypernatremia PLAN: 1. Empiric antibiotic course to cover possible aspiration pneumonia and community acquired pneumonia 2. Continue Cardizem gtt and Lopressor for rate-control, Lisinopril, ASA and Lipitor 3. Lovenox 100 bid pending possible procedure 4. Inhaled bronchodilators 5. GI and surgery input 6. DVT and GI prophylaxis Further plans are to follow Rachid Richards MD
[2018-03-04] MEDS: ASPIRIN 81 MG CHEWABLE TABLETS PO SCH (09:43)
[2018-03-04] MEDS: LISINOPRIL 10 MG TABLET (FP) PO SCH (09:43)
[2018-03-04] MEDS: ESCITALOPRAM OXALATE 10 MG TABLET (FP) PO SCH (09:43)
[2018-03-04] MEDS: DOCUSATE SODIUM 100 MG CAPSULE (FP) PO SCH (09:43)
[2018-03-04] MEDS ORDERED: DEXTROSE 5%-WATER 100 ML IVPB ONE ×3 (09:46→23:59)
[2018-03-04] MEDS: ENOXAPARIN NA (PORCINE) 100 MG/1 ML DISP.SYRIN SQ SCH ×2 (09:51→23:21)
[2018-03-04] MEDS ORDERED: ERGOCALCIFEROL (VITAMIN D2) 50,000 UNIT CAPSULE (FP) PO SCH (10:00)
--- NOTE | 2018-03-04 10:51 | PN ---
Progress Note, Physician History of Present Illness: Awake, lethargic on ventimask Offers no complaints No c/o dyspnea/ cough No c/o abdominal pain Temps down afebrile Breathing non-labored - Current Medication List Current Medications: Active Medications Acetaminophen (Tylenol -) 650 mg PO Q6H PRN PRN Reason: FEVER Last Admin: 03/03/18 17:27 Dose: 650 mg Albuterol/Ipratropium (Duoneb -) 1 amp NEB RQID [facility] Last Admin: 03/04/18 08:20 Dose: 1 amp Aspirin (Asa -) 81 mg PO DAILY [facility] Last Admin: 03/04/18 09:43 Dose: Not Given Atorvastatin Calcium (Lipitor -) 40 mg PO HS [facility] Last Admin: 03/04/18 01:27 Dose: Not Given Clotrimazole (Clotrimazole) 1 applic TP BID [facility] Last Admin: 03/03/18 22:00 Dose: 1 applic Docusate Sodium (Colace -) 200 mg PO DAILY [facility] Last Admin: 03/04/18 09:43 Dose: Not Given Enoxaparin Sodium (Lovenox -) 100 mg SQ BID [facility] Last Admin: 03/04/18 09:51 Dose: 100 mg Escitalopram Oxalate (Lexapro -) 10 mg PO DAILY [facility] Last Admin: 03/04/18 09:43 Dose: Not Given Gabapentin (Neurontin -) 300 mg PO TID [facility] Last Admin: 03/04/18 06:32 Dose: Not Given Piperacillin Sod/Tazobactam (Sod 4.5 gm/ Dextrose) 100 mls @ 200 mls/hr IVPB Q8H-IV [facility]; Protocol Last Admin: 03/04/18 02:02 Dose: 200 mls/hr Potassium Chloride 20 meq/ (Sodium Chloride) 1,010 mls @ 100 mls/hr IVPB ASDIR [facility] Last Admin: 03/04/18 09:39 Dose: 100 mls/hr Diltiazem HCl 125 mg/ Dextrose 125 mls @ 5 mls/hr IVPB TITR [facility]; Protocol Last Admin: 03/03/18 02:24 Dose: 15 mg/hr, 15 mls/hr Insulin Aspart (Novolog Vial Sliding Scale -) 1 vial SQ ACHS [facility]; Protocol Last Admin: 03/04/18 07:00 Dose: 4 units Insulin Detemir (Levemir Vial) 20 units SQ HS [facility] Last Admin: 03/03/18 22:00 Dose: 20 units Lisinopril (Prinivil) 30 mg PO DAILY [facility] Last Admin: 03/04/18 09:43 Dose: Not Given Methyl Salicylate (Felix-Seaman -) 1 applic TP Q8H PRN PRN Reason: BODY ACHES Metoprolol Tartrate (Lopressor -) 25 mg NGT BID [facility] Last Admin: 03/04/18 01:28 Dose: Not Given Multi-Ingredient Ointment (Zinc Oxide) 1 applic TP BID [facility] Last Admin: 03/03/18 22:00 Dose: 1 applic Senna (Senna -) 2 tab PO [facility] Last Admin: 03/04/18 01:28 Dose: Not Given - Objective Vital Signs: Vital Signs Temperature 99.2 F 03/04/18 10:00 Pulse Rate 86 03/04/18 10:00 Respiratory Rate 24 H 03/04/18 10:00 Blood Pressure 156/99 03/04/18 10:00 O2 Sat by Pulse Oximetry (%) 97 03/03/18 21:00 Constitutional: Yes: No Distress Eyes: Yes: Conjunctiva Clear Cardiovascular: Yes: Regular Rate and Rhythm, S1, S2 Respiratory: Yes: CTA Bilaterally Gastrointestinal: Yes: Normal Bowel Sounds, Soft, Other (slightly distended). No: Tenderness Edema: No Labs: CBC, BMP 03/04/18 05:30 03/04/18 05:30 INR, PTT INR 1.18 (0.83-1.09) H 02/28/18 20:06 Assessment/Plan LLL pneumonia Volvulus Rapid Afib Fever- improved Continue zosyn
--- NOTE | 2018-03-04 10:53 | PN ---
Teaching Attending Note Name of Resident: Lebron Martínez ATTENDING PHYSICIAN STATEMENT I saw and evaluated the patient. I reviewed the resident's note and discussed the case with the resident. I agree with the resident's findings and plan as documented. SUBJECTIVE: Patient seen and examined in the ICU. Lethargic but arousable. NGT remains in place. Seen by GI and surgery. Ultimate plan is for Sigmoid colectomy once medically optimized. He is able to intermittently nod yes or no to questions. Remains on IV Cardizem for rate control. Intake & Output 03/01/18 03/02/18 03/03/18 03/04/18 23:59 23:59 23:59 23:59 Intake Total 1670 4100 2047.6 475 Output Total 320 2600 Balance 1350 4100 -552.4 475 Weight 222 lb 4.8 oz 222 lb 222 lb 4.8 oz 223 lb Last Vital Signs Temp Pulse Resp BP Pulse Ox 99.2 F 86 24 H 156/99 97 03/04/18 10:00 03/04/18 10:00 03/04/18 10:00 03/04/18 10:00 03/03/18 21:00 Active Medications Acetaminophen (Tylenol -) 650 mg PO Q6H PRN PRN Reason: FEVER Last Admin: 03/03/18 17:27 Dose: 650 mg Albuterol/Ipratropium (Duoneb -) 1 amp NEB RQID [facility] Last Admin: 03/04/18 08:20 Dose: 1 amp Aspirin (Asa -) 81 mg PO DAILY [facility] Last Admin: 03/04/18 09:43 Dose: Not Given Atorvastatin Calcium (Lipitor -) 40 mg PO HS [facility] Last Admin: 03/04/18 01:27 Dose: Not Given Clotrimazole (Clotrimazole) 1 applic TP BID [facility] Last Admin: 03/03/18 22:00 Dose: 1 applic Docusate Sodium (Colace -) 200 mg PO DAILY [facility] Last Admin: 03/04/18 09:43 Dose: Not Given Enoxaparin Sodium (Lovenox -) 100 mg SQ BID [facility] Last Admin: 03/04/18 09:51 Dose: 100 mg Escitalopram Oxalate (Lexapro -) 10 mg PO DAILY [facility] Last Admin: 03/04/18 09:43 Dose: Not Given Gabapentin (Neurontin -) 300 mg PO TID [facility] Last Admin: 03/04/18 06:32 Dose: Not Given Piperacillin Sod/Tazobactam (Sod 4.5 gm/ Dextrose) 100 mls @ 200 mls/hr IVPB Q8H-IV [facility]; Protocol Last Admin: 03/04/18 02:02 Dose: 200 mls/hr Potassium Chloride 20 meq/ (Sodium Chloride) 1,010 mls @ 100 mls/hr IVPB ASDIR [facility] Last Admin: 03/04/18 09:39 Dose: 100 mls/hr Diltiazem HCl 125 mg/ Dextrose 125 mls @ 5 mls/hr IVPB TITR [facility]; Protocol Last Admin: 03/03/18 02:24 Dose: 15 mg/hr, 15 mls/hr Insulin Aspart (Novolog Vial Sliding Scale -) 1 vial SQ ACHS [facility]; Protocol Last Admin: 03/04/18 07:00 Dose: 4 units Insulin Detemir (Levemir Vial) 20 units SQ HS [facility] Last Admin: 03/03/18 22:00 Dose: 20 units Lisinopril (Prinivil) 30 mg PO DAILY [facility] Last Admin: 03/04/18 09:43 Dose: Not Given Methyl Salicylate (Felix-Seaman -) 1 applic TP Q8H PRN PRN Reason: BODY ACHES Metoprolol Tartrate (Lopressor -) 25 mg NGT BID [facility] Last Admin: 03/04/18 01:28 Dose: Not Given Multi-Ingredient Ointment (Zinc Oxide) 1 applic TP BID [facility] Last Admin: 03/03/18 22:00 Dose: 1 applic Senna (Senna -) 2 tab PO [facility] Last Admin: 03/04/18 01:28 Dose: Not Given Constitutional: Yes: Mild Distress, lethargic Eyes: No: Sclera Icterus Cardiovascular: Yes: Tachycardia, Pulse Irregular Respiratory: Yes: Diminished at bases, Bilateral scattered rhonchi Gastrointestinal Inspection: Yes: Distention, reducible umbilical hernia, no scars, (+) BS Edema: No Neurological: Yes: Lethargic Labs: Laboratory Results - last 24 hr 03/03/18 03/03/18 03/03/18 05:30 06:15 11:15 WBC RBC Hgb Hct MCV MCH MCHC RDW Plt Count MPV Absolute Neuts (auto) Neutrophils % Lymphocytes % Monocytes % Eosinophils % Basophils % Nucleated RBC % Puncture Site Right radial ABG pH 7.43 ABG pCO2 at Pt Temp 43.6 ABG pO2 at Pt Temp 152.0 H* D ABG HCO3 28.2 H ABG O2 Sat (Measured) 99.0 H ABG O2 Content 19.1 ABG Base Excess 3.8 H [place] Test Positive O2 Delivery Device Venti mask Oxygen Flow Rate 40% Mechanical Rate Yes PEEP 0.0 Sodium 143 Potassium 3.0 L Chloride 105 Carbon Dioxide 30 Anion Gap 9 BUN 12 Creatinine 1.0 Creat Clearance w eGFR > 60 POC Glucometer Random Glucose 306 H* Lactic Acid Calcium 8.0 L Phosphorus Cancelled 2.3 L Magnesium 2.1 Total Bilirubin AST ALT Alkaline Phosphatase Troponin I 0.61 H* Total Protein Albumin 03/03/18 03/03/18 03/03/18 12:39 12:45 12:45 WBC RBC Hgb Hct MCV MCH MCHC RDW Plt Count MPV Absolute Neuts (auto) Neutrophils % Lymphocytes % Monocytes % Eosinophils % Basophils % Nucleated RBC % Puncture Site ABG pH ABG pCO2 at Pt Temp ABG pO2 at Pt Temp ABG HCO3 ABG O2 Sat (Measured) ABG O2 Content ABG Base Excess [place] Test O2 Delivery Device Oxygen Flow Rate Mechanical Rate PEEP Sodium Potassium Chloride Carbon Dioxide Anion Gap BUN Creatinine Creat Clearance w eGFR POC Glucometer 189.11936 Random Glucose Lactic Acid 1.8 Calcium Phosphorus Magnesium Total Bilirubin AST ALT Alkaline Phosphatase Troponin I 0.58 H Total Protein Albumin 03/03/18 03/03/18 03/03/18 16:18 17:30 21:05 WBC RBC Hgb Hct MCV MCH MCHC RDW Plt Count MPV Absolute Neuts (auto) Neutrophils % Lymphocytes % Monocytes % Eosinophils % Basophils % Nucleated RBC % Puncture Site No Result Required. ABG pH 7.46 H ABG pCO2 at Pt Temp 39.9 ABG pO2 at Pt Temp 97.7 D ABG HCO3 28.5 H ABG O2 Sat (Measured) 97.4 ABG O2 Content No Result Required. ABG Base Excess 4.8 H [place] Test No Result Required. O2 Delivery Device Oxygen Flow Rate No Result Required. Mechanical Rate PEEP Sodium 143 Potassium 3.3 L Chloride 104 Carbon Dioxide 29 H Anion Gap 9 BUN 10 Creatinine 0.8 Creat Clearance w eGFR > 60 POC Glucometer 341.18117 Random Glucose 250 H Lactic Acid Calcium 7.4 L Phosphorus 3.0 Magnesium Total Bilirubin AST ALT Alkaline Phosphatase Troponin I Total Protein Albumin 03/04/18 03/04/18 03/04/18 05:30 05:30 06:02 WBC 11.0 H RBC 4.34 Hgb 13.6 Hct 39.7 MCV 91.4 MCH 31.3 MCHC 34.3 RDW 14.8 Plt Count 123 L MPV 10.0 Absolute Neuts (auto) 7.3 Neutrophils % 66.5 Lymphocytes % 23.8 D Monocytes % 7.7 Eosinophils % 1.5 D Basophils % 0.5 Nucleated RBC % 0 Puncture Site Left radial ABG pH 7.49 H ABG pCO2 at Pt Temp 39.1 ABG pO2 at Pt Temp 94.5 ABG HCO3 29.7 H ABG O2 Sat (Measured) 97.4 ABG O2 Content 22.8 H ABG Base Excess 6.4 H [place] Test Positive O2 Delivery Device Venti mask Oxygen Flow Rate 40% Mechanical Rate PEEP Sodium 142 Potassium 3.3 L Chloride 104 Carbon Dioxide 31 H Anion Gap 7 L BUN 8 Creatinine 0.8 Creat Clearance w eGFR > 60 POC Glucometer Random Glucose 198 H Lactic Acid Calcium 7.6 L Phosphorus 2.7 Magnesium 2.1 Total Bilirubin 1.4 H AST 23 ALT 18 Alkaline Phosphatase 41 L Troponin I Total Protein 6.2 L Albumin 2.5 L Problem List (1) Volvulus of descending colon Code(s): K56.2 - VOLVULUS (2) Elevated troponin Code(s): R74.8 - ABNORMAL LEVELS OF OTHER SERUM ENZYMES (3) Rapid atrial fibrillation Code(s): I48.91 - UNSPECIFIED ATRIAL FIBRILLATION (4) Diastolic dysfunction Code(s): I51.9 - HEART DISEASE, UNSPECIFIED (5) H/O: CVA (cerebrovascular accident) Code(s): Z86.73 - PRSNL HX OF TIA (TIA), AND CEREB INFRC W/O RESID DEFICITS (6) Hyperlipidemia Code(s): E78.5 - HYPERLIPIDEMIA, UNSPECIFIED Qualifiers: Hyperlipidemia type: pure hypercholesterolemia Qualified Code(s): E78.00 - Pure hypercholesterolemia, unspecified; E78.0 - Pure hypercholesterolemia (7) Hypertension Code(s): I10 - ESSENTIAL (PRIMARY) HYPERTENSION Qualifiers: Hypertension type: essential hypertension Qualified Code(s): I10 - Essential (primary) hypertension (8) Pneumonia Code(s): J18.9 - PNEUMONIA, UNSPECIFIED ORGANISM Qualifiers: Pneumonia type: due to unspecified organism Laterality: right Lung location: lower lobe of lung Qualified Code(s): J18.1 - Lobar pneumonia, unspecified organism (9) Toxic metabolic encephalopathy Code(s): G92 - TOXIC ENCEPHALOPATHY (10) Demand ischemia Code(s): I24.8 - OTHER FORMS OF ACUTE ISCHEMIC HEART DISEASE (11) Hypokalemia Code(s): E87.6 - HYPOKALEMIA (12) Premature ventricular contraction Code(s): I49.3 - VENTRICULAR PREMATURE DEPOLARIZATION Assessment/Plan RLL PNA (HCAP) Toxic-metabolic encephelopathy Rapid afib NGT Rectal tube Aspiration precautions O2 as needed Cardizem IV for rate control AC with Lovenox BID ABX per ID ASA BD TX ICU monitoring Dr Patel Critical care time spent in reviewing chart, evaluating patient and formulating plan - 36 minutes. OBJECTIVE: ASSESSMENT AND PLAN:
[2018-03-04] MEDS: CLOTRIMAZOLE 1% 10 ML TOPICAL SOLUTION TP SCH ×2 (11:48→22:54)
[2018-03-04] MEDS: ZINC OXIDE 20% TOPICAL OINTMENT 30 GM TUBE TP SCH ×2 (11:49→23:23)
--- NOTE | 2018-03-04 12:03 | PN ---
Progress Note (short form) - Note Progress Note: pt seen/ examined in icu all f/u noted lethargic but arousable reports feels better afebrile on vm 50 percent Vital Signs Temp 99.2 F 03/04/18 10:00 Pulse 86 03/04/18 10:00 Resp 24 H 03/04/18 10:00 BP 156/99 03/04/18 10:00 Pulse Ox 97 03/03/18 21:00 Intake & Output 03/03/18 03/03/18 03/04/18 11:59 23:59 11:59 Intake Total 1155 892.6 475 Output Total 2600 Balance 1155 -1707.4 475 Weight 222 lb 4.8 oz 223 lb Intake: IV 805 562.6 75 1/2 Normal Saline 1,000 700 437 ml @ 100 mls/hr IVPB ASDIR [facility] with KCl - 20 Meq Rx#:[id number] Cardizem Injection - 125 105 125.6 75 mg In D5w - 100 ml @ 5 MG /HR 5 mls/hr IVPB TITR [facility] Rx#:[id number] IVPB 350 300 400 Tube Irrigant 30 Output: Urine 2600 Davis 300 Void 2300 Other: Voiding Method Indwelling Catheter Indwelling Catheter # Unmeasured Voids Void 1 Bowel Movement Yes No # Bowel Movements 2 Weight Measurement Method Built in [facility] Active Medications Acetaminophen (Tylenol -) 650 mg PO Q6H PRN PRN Reason: FEVER Last Admin: 03/03/18 17:27 Dose: 650 mg Albuterol/Ipratropium (Duoneb -) 1 amp NEB RQID [facility] Last Admin: 03/04/18 11:22 Dose: 1 amp Aspirin (Asa -) 81 mg PO DAILY [facility] Last Admin: 03/04/18 09:43 Dose: Not Given Atorvastatin Calcium (Lipitor -) 40 mg PO HS [facility] Last Admin: 03/04/18 01:27 Dose: Not Given Clotrimazole (Clotrimazole) 1 applic TP BID [facility] Last Admin: 03/04/18 11:48 Dose: Not Given Docusate Sodium (Colace -) 200 mg PO DAILY [facility] Last Admin: 03/04/18 09:43 Dose: Not Given Enoxaparin Sodium (Lovenox -) 100 mg SQ BID [facility] Last Admin: 03/04/18 09:51 Dose: 100 mg Escitalopram Oxalate (Lexapro -) 10 mg PO DAILY [facility] Last Admin: 03/04/18 09:43 Dose: Not Given Gabapentin (Neurontin -) 300 mg PO TID [facility] Last Admin: 03/04/18 06:32 Dose: Not Given Piperacillin Sod/Tazobactam (Sod 4.5 gm/ Dextrose) 100 mls @ 200 mls/hr IVPB Q8H-IV [facility]; Protocol Last Admin: 03/04/18 10:30 Dose: 200 mls/hr Potassium Chloride 20 meq/ (Sodium Chloride) 1,010 mls @ 100 mls/hr IVPB ASDIR [facility] Last Admin: 03/04/18 09:39 Dose: 100 mls/hr Diltiazem HCl 125 mg/ Dextrose 125 mls @ 5 mls/hr IVPB TITR [facility]; Protocol Last Admin: 03/03/18 02:24 Dose: 15 mg/hr, 15 mls/hr Insulin Aspart (Novolog Vial Sliding Scale -) 1 vial SQ ACHS [facility]; Protocol Last Admin: 03/04/18 11:56 Dose: 4 units Insulin Detemir (Levemir Vial) 20 units SQ [facility] Last Admin: 03/03/18 22:00 Dose: 20 units Lisinopril (Prinivil) 30 mg PO DAILY [facility] Last Admin: 03/04/18 09:43 Dose: Not Given Methyl Salicylate (Felix-Seaman -) 1 applic TP Q8H PRN PRN Reason: BODY ACHES Metoprolol Tartrate (Lopressor -) 25 mg NGT BID [facility] Last Admin: 03/04/18 11:47 Dose: Not Given Multi-Ingredient Ointment (Zinc Oxide) 1 applic TP BID [facility] Last Admin: 03/04/18 11:49 Dose: Not Given Senna (Senna -) 2 tab PO [facility] Last Admin: 03/04/18 01:28 Dose: Not Given CBC,CMP WBC 11.0 K/mm3 (4.0-10.0) H 03/04/18 05:30 RBC 4.34 M/mm3 (4.00-5.60) 03/04/18 05:30 Hgb 13.6 GM/dL (11.7-16.9) 03/04/18 05:30 Hct 39.7 % (35.4-49) 03/04/18 05:30 MCV 91.4 fl (80-96) 03/04/18 05:30 MCH 31.3 pg (25.7-33.7) 03/04/18 05:30 MCHC 34.3 g/dl (32.0-35.9) 03/04/18 05:30 RDW 14.8 % (11.9-15.9) 03/04/18 05:30 Plt Count 123 K/MM3 (134-434) L 03/04/18 05:30 MPV 10.0 fl (7.5-11.1) 03/04/18 05:30 Absolute Neuts (auto) 7.3 K/mm3 (1.5-8.0) 03/04/18 05:30 Neutrophils % 66.5 % (42.8-82.8) 03/04/18 05:30 Lymphocytes % 23.8 % (8-40) D 03/04/18 05:30 Monocytes % 7.7 % (3.8-10.2) 03/04/18 05:30 Eosinophils % 1.5 % (0-4.5) D 03/04/18 05:30 Basophils % 0.5 % (0-2.0) 03/04/18 05:30 Nucleated RBC % 0 % (0-0) 03/04/18 05:30 Sodium 142 mmol/L (136-145) 03/04/18 05:30 Potassium 3.3 mmol/L (3.5-5.1) L 03/04/18 05:30 Chloride 104 mmol/L (98-107) 03/04/18 05:30 Carbon Dioxide 31 mmol/L (22-28) H 03/04/18 05:30 Anion Gap 7 MMOL/L (8-16) L 03/04/18 05:30 BUN 8 mg/dL (7-18) 03/04/18 05:30 Creatinine 0.8 mg/dL (0.55-1.3) 03/04/18 05:30 Creat Clearance w eGFR > 60 (>60) 03/04/18 05:30 POC Glucometer 341.88844 UNITS (80-120) 03/03/18 16:18 Random Glucose 198 mg/dL (74-106) H 03/04/18 05:30 Lactic Acid 1.8 mmol/L (0.4-2.0) 03/03/18 12:45 Calcium 7.6 mg/dL (8.5-10.1) L 03/04/18 05:30 Phosphorus 2.7 mg/dL (2.5-4.9) 03/04/18 05:30 Magnesium 2.1 mg/dL (1.8-2.4) 03/04/18 05:30 Total Bilirubin 1.4 mg/dL (0.2-1) H 03/04/18 05:30 AST 23 U/L (15-37) 03/04/18 05:30 ALT 18 U/L (13-61) 03/04/18 05:30 Alkaline Phosphatase 41 U/L (45-117) L 03/04/18 05:30 Creatine Kinase 620 IU/L (26-308) H 03/01/18 06:00 Creatine Kinase Index 0.1 % (0.0-5.0) 03/01/18 06:00 CK-MB (CK-2) < 1.0 ng/mL (0.5-3.6) 03/01/18 06:00 Troponin I 0.58 ng/ml (0.00-0.05) H 03/03/18 12:45 Total Protein 6.2 g/dl (6.4-8.2) L 03/04/18 05:30 Albumin 2.5 g/dl (3.4-5.0) L 03/04/18 05:30 Microbiology 02/28/18 20:25 Blood Culture - Preliminary Blood - Peripheral Venous NO GROWTH OBTAINED AFTER 72 HOURS, INCUBATION TO CONTINUE FOR 2 DAYS. 02/28/18 20:25 Blood Culture - Preliminary Blood - Peripheral Venous NO GROWTH OBTAINED AFTER 72 HOURS, INCUBATION TO CONTINUE FOR 2 DAYS. 03/03/18 06:00 Clostridium difficile Antigen (AMY) - Final Stool Clostridium difficile Toxin Assay - Final 03/01/18 20:30 MRSA Screen - Final Nares - Mrsa Screen - Right NO MRSA ISOLATED 03/01/18 20:30 MRSA Screen - Final Nares - Mrsa Screen - Left NO MRSA ISOLATED cxr-- Infilltrate Physical Exam Constitutional: Yes:drowsy/ arousable. no distress Neck: Yes: Supple. no jvd Cardiovascular: Yes: Irregular Respiratory: Yes: Regular, Diminished Gastrointestinal: Yes: soft Edema: No. Davis / rectal tube + a/p volvulus pneumonia fever rapid afib-- better Uncontrolled diabetes-- electrolyte imbalance Better continue present care abx monitor labs/ lytes surgery on case-- will follow discussed with nursing staff and icu resident also cc time 25 min Problem List - Problems (1) Demand ischemia Code(s): I24.8 - OTHER FORMS OF ACUTE ISCHEMIC HEART DISEASE (2) Elevated troponin Code(s): R74.8 - ABNORMAL LEVELS OF OTHER SERUM ENZYMES (3) Hypokalemia Code(s): E87.6 - HYPOKALEMIA (4) Pneumonia Code(s): J18.9 - PNEUMONIA, UNSPECIFIED ORGANISM (5) Rapid atrial fibrillation Code(s): I48.91 - UNSPECIFIED ATRIAL FIBRILLATION (6) Volvulus of descending colon Code(s): K56.2 - VOLVULUS (7) Diabetes Code(s): E11.9 - TYPE 2 DIABETES MELLITUS WITHOUT COMPLICATIONS (8) Fecal retention Code(s): K59.00 - CONSTIPATION, UNSPECIFIED (9) H/O: CVA (cerebrovascular accident) Code(s): Z86.73 - PRSNL HX OF TIA (TIA), AND CEREB INFRC W/O RESID DEFICITS
--- NOTE | 2018-03-04 14:30 | PN ---
Physical Exam: SUBJECTIVE: Patient seen and examined at bedside. He had no acute events overnight. He is afebrile. His SpO2 sat is maintained very well at 98% on the ventimask. When he is on RA his O2 sat drops to ~88 to 90. He denies any current abdominal pain or distress. He is receiving a cardizem drip for AFIB. He had an elevated troponin that has now trended down, which was likely demand ischemia. He denies any current chest pain. OBJECTIVE: Vital Signs Period Temp Pulse Resp BP Sys/Pham Pulse Ox Last 24 Hr 99 F-101.7 F 86-120 24-38 125-156/56-99 97-97 GENERAL: The patient is awake but lethargic on 40% venti mask. Responds to questions. In no acute distress. HEAD: Normal with no signs of trauma. EYES: PERRL, extraocular movements intact, sclera anicteric, conjunctiva clear. No ptosis. ENT: Ears normal, nares patent, oropharynx clear without exudates, moist mucous membranes. NECK: Trachea midline, full range of motion, supple. LUNGS: +scattered rhonchi bilaterally, no wheezes, no crackles, no accessory muscle use. HEART: Tachycardic rate and irregular rhythm, S1, S2 without murmur, rub or gallop. ABDOMEN: Abdomen is distended but still soft and nontender. Normoactive bowel sounds, no guarding, no rebound, no hepatosplenomegaly, no masses. EXTREMITIES: 2+ pulses, warm, well-perfused, no edema. NEUROLOGICAL: Cranial nerves II through XII grossly intact. Normal speech, gait not observed. SKIN: Warm, dry, normal turgor, no rashes or lesions noted Laboratory Results - last 24 hr 03/03/18 03/03/18 03/03/18 12:39 16:18 17:30 WBC RBC Hgb Hct MCV MCH MCHC RDW Plt Count MPV Absolute Neuts (auto) Neutrophils % Lymphocytes % Monocytes % Eosinophils % Basophils % Nucleated RBC % Puncture Site No Result Required. ABG pH 7.46 H ABG pCO2 at Pt Temp 39.9 ABG pO2 at Pt Temp 97.7 D ABG HCO3 28.5 H ABG O2 Sat (Measured) 97.4 ABG O2 Content No Result Required. ABG Base Excess 4.8 H [place] Test No Result Required. O2 Delivery Device Oxygen Flow Rate No Result Required. Sodium Potassium Chloride Carbon Dioxide Anion Gap BUN Creatinine Creat Clearance w eGFR POC Glucometer 189.21358 [phone] Random Glucose Calcium Phosphorus Magnesium Total Bilirubin AST ALT Alkaline Phosphatase Total Protein Albumin 03/03/18 03/04/18 03/04/18 21:05 05:30 05:30 WBC 11.0 H RBC 4.34 Hgb 13.6 Hct 39.7 MCV 91.4 MCH 31.3 MCHC 34.3 RDW 14.8 Plt Count 123 L MPV 10.0 Absolute Neuts (auto) 7.3 Neutrophils % 66.5 Lymphocytes % 23.8 D Monocytes % 7.7 Eosinophils % 1.5 D Basophils % 0.5 Nucleated RBC % 0 Puncture Site ABG pH ABG pCO2 at Pt Temp ABG pO2 at Pt Temp ABG HCO3 ABG O2 Sat (Measured) ABG O2 Content ABG Base Excess [place] Test O2 Delivery Device Oxygen Flow Rate Sodium 143 142 Potassium 3.3 L 3.3 L Chloride 104 104 Carbon Dioxide 29 H 31 H Anion Gap 9 7 L BUN 10 8 Creatinine 0.8 0.8 Creat Clearance w eGFR > 60 > 60 POC Glucometer Random Glucose 250 H 198 H Calcium 7.4 L 7.6 L Phosphorus 3.0 2.7 Magnesium 2.1 Total Bilirubin 1.4 H AST 23 ALT 18 Alkaline Phosphatase 41 L Total Protein 6.2 L Albumin 2.5 L 03/04/18 03/04/18 06:02 11:53 WBC RBC Hgb Hct MCV MCH MCHC RDW Plt Count MPV Absolute Neuts (auto) Neutrophils % Lymphocytes % Monocytes % Eosinophils % Basophils % Nucleated RBC % Puncture Site Left radial ABG pH 7.49 H ABG pCO2 at Pt Temp 39.1 ABG pO2 at Pt Temp 94.5 ABG HCO3 29.7 H ABG O2 Sat (Measured) 97.4 ABG O2 Content 22.8 H ABG Base Excess 6.4 H [place] Test Positive O2 Delivery Device Venti mask Oxygen Flow Rate 40% Sodium Potassium Chloride Carbon Dioxide Anion Gap BUN Creatinine Creat Clearance w eGFR POC Glucometer [phone] Random Glucose Calcium Phosphorus Magnesium Total Bilirubin AST ALT Alkaline Phosphatase Total Protein Albumin Active Medications Generic Name Dose Route Start Last Admin Trade Name Freq PRN Reason Stop Dose Admin Acetaminophen 650 mg 03/01/18 01:29 03/03/18 17:27 Tylenol - PO 650 mg Q6H PRN Administration FEVER Albuterol/Ipratropium 1 amp 03/01/18 08:00 03/04/18 11:22 Duoneb - NEB 1 amp RQID [facility] Administration Aspirin 81 mg 03/01/18 10:00 03/04/18 09:43 Asa - PO Not Given DAILY [facility] Atorvastatin Calcium 40 mg 03/01/18 22:00 03/04/18 01:27 Lipitor - PO Not Given HS [facility] Clotrimazole 1 applic 03/01/18 10:03 03/04/18 11:48 Clotrimazole TP Not Given BID [facility] Docusate Sodium 200 mg 03/01/18 10:00 03/04/18 09:43 Colace - PO Not Given DAILY [facility] Enoxaparin Sodium 100 mg 03/01/18 13:30 03/04/18 09:51 Lovenox - SQ 100 mg BID [facility] Administration Escitalopram Oxalate 10 mg 03/01/18 10:00 03/04/18 09:43 Lexapro - PO Not Given DAILY [facility] Gabapentin 300 mg 03/01/18 06:00 03/04/18 06:32 Neurontin - PO Not Given TID [facility] Piperacillin Sod/Tazobactam 100 mls @ 200 mls/hr 03/01/18 10:00 03/04/18 10: 30 Sod 4.5 gm/ Dextrose IVPB 200 mls/hr Q8H-IV [facility] Administration Protocol Potassium Chloride 20 meq/ 1,010 mls @ 100 mls/hr 03/01/18 13:00 03/04/18 09: 39 Sodium Chloride IVPB 100 mls/hr ASDIR [facility] Administration Diltiazem HCl 125 mg/ Dextrose 125 mls @ 5 mls/hr 03/01/18 17:30 03/03/18 02: 24 IVPB 15 mg/hr TITR [facility] 15 mls/hr Administration Protocol 5 MG/HR Insulin Aspart 1 vial 03/02/18 11:00 03/04/18 11:56 Novolog Vial Sliding Scale - SQ 4 units ACHS [facility] Administration Protocol Insulin Detemir 20 units 03/02/18 09:58 03/03/18 22:00 Levemir Vial SQ 20 units HS [facility] Administration Lisinopril 30 mg 03/01/18 10:00 03/04/18 09:43 Prinivil PO Not Given DAILY [facility] Methyl Salicylate 1 applic 03/01/18 01:30 Felix-Seaman - TP Q8H PRN BODY ACHES Metoprolol Tartrate 25 mg 03/03/18 15:59 03/04/18 11:47 Lopressor - NGT Not Given BID [facility] Multi-Ingredient Ointment 1 applic 03/01/18 10:00 03/04/18 11:49 Zinc Oxide TP Not Given BID [facility] Senna 2 tab 03/01/18 22:00 03/04/18 01:28 Senna - PO Not Given HS [facility] ASSESSMENT/PLAN: Assessment: Patient is a 77 year old male with past medical history HTN, HLD, DM , COPD, diastolic CHF, Ischemic CVA (with residual right-sided weakness), and chronic dysphagia (previously on trach), was sent from the shelter after a 2-day history of fever and lethargy. DD: PNA vs volvulus vs other infection. - The most important question remains is this patient sick because he has a pneumonia or is he sick because of a volvulus. - Dr. Alves and Dr. Sharif believe he is likely sick now from the PNA. - Goal is to medically optimize the patient so he doesn't need to undergo an emergent large scale anesthesia event for an open surgery on the abdomen given his PNA infection as well as his uncontrolled AFIB requiring a Cardizem drip. Plan: Pulmonology 1)Acute Hypoxic Respiratory Failure likely 2/2 Pneumonia -On venti mask 40% -IV Zosyn 4.5gm q8h -IV fluids -Blood Cultures, influenza swab, urine legionalla and pneumococcal -- negative 2)COPD -Duonebs PRN Gastroenterology 1)Sigmoid colon volvulus -CT abdomen and pelvis: Markedly distended sigmoid colon that is suspicious for an intermittent volvulus. Fecal retention proximal to the distended sigmoid colon. -GI (Dr. Alves) consulted. Recommendations appreciated. -Rectal tube inserted. -Flush rectal tubes with 60cc sterile water twice per shift -AXR. -correct electrolytes abnormalities. -Surgery (Dr. Sharif) consulted. - Spoke with Dr. Sharif about the case. The question remains if he is sick now bc of the PNA or bc of the volvulus. Cardiology 1)Atrial Fibrillation -patient remains tachycardic at >120 after max dose of cardizem drip -Cardiology (Dr. Beltrán) consulted. Recommendations appreciated. -Continue IV cardizem ggt -Lopressor 25mg NGT PRN 2)Diastolic CHF -Hold home lasix -Continue Lovenox 100mg sq bid 3)Hypertension -Hold home anti-hypertensive medications -on IV cardizem drip and Lopressor -monitor BP 4)Hyperlipidemia -Continue Atorvastatin 40mg PO HS 5)Troponinemia -peaked at 0.98, now 0.56 -likely 2/2 demand ischemia 6)QTc prolongation: 810ms -Avoid agents that increase QTc Infectious Disease 1)Sepsis likely 2/2 Pneumonia -CXR: RLL consolidation -Continue IV NS +20meq KCl -ID (Dr. Peters) consulted. Recommendations appreciated. -Continue Zosyn 4.5 gm q8h -Vancomycin discontinued. -Blood cx, urine cx, influenza swab, urine legionella, pneumococcal, c.diff - negative Nephrology 1)Hypokalemia: K 3.0 -IV 10 meq KCl x3 bags -IV 15 meq potassium phosphate -repeat bmp and phos -will continue to monitor and replete PRN 2)Hypophosphatemia: 2.3 -Potassium phosphate ordered -will continue to monitor Endocrinology 1)DM - DCing all insulin products while patient is NPO. - Resume Insulin Levemir 20 units sq hs and Insulin sliding scale ACHS when patient starts getting fed. -BGM ACHS Neurology 1)Hx of Ischemic CVA (with residual right-sided weakness) -continue ASA and atorvastatin FEN -IV NS +20meq KCl -hypoK, replete PRN -routine bmp monitoring -NPO except meds Prophylaxis 1)DVT - on Lovenox 100mg sq BID Code Status: Full Code Disposition: We will continue to monitor the patient in the ICU. Visit type - Emergency Visit Emergency Visit: Yes ED Registration Date: 02/28/18 Care time: The patient presented to the Emergency Department on the above date and was hospitalized for further evaluation of their emergent condition. - New Patient This patient is new to me today: Yes Date on this admission: 03/04/18 - Critical Care Critical Care patient: Yes Total Critical Care Time (in minutes): 36 Critical Care Statement: The care of this patient involved high complexity decision making to prevent further life threatening deterioration of the patient 's condition and/or to evaluate & treat vital organ system(s) failure or risk of failure.
--- NOTE | 2018-03-04 15:32 | PN ---
GI Progress Note - Objective Vital Signs: Vital Signs Temperature 98.9 F 03/04/18 14:00 Pulse Rate 86 03/04/18 14:00 Respiratory Rate 24 H 03/04/18 14:00 Blood Pressure 129/71 03/04/18 14:00 O2 Sat by Pulse Oximetry (%) 97 03/04/18 09:00 Eyes: No: Sclera Icterus Labs: CBC, BMP 03/04/18 05:30 03/04/18 05:30 INR, PTT INR 1.18 (0.83-1.09) H 02/28/18 20:06 Problem List - Problems (1) Volvulus of sigmoid colon Code(s): K56.2 - VOLVULUS
--- NOTE | 2018-03-04 15:44 | PN ---
GI Progress Note Subjective: No acute events overnight No spontaneous BM through rectal tube Remains lethargic at times - Objective Vital Signs: Vital Signs Temperature 98.9 F 03/04/18 14:00 Pulse Rate 86 03/04/18 14:00 Respiratory Rate 24 H 03/04/18 14:00 Blood Pressure 129/71 03/04/18 14:00 O2 Sat by Pulse Oximetry (%) 97 03/04/18 09:00 Constitutional: Calm Eyes: No: Sclera Icterus Cardiovascular: Yes: Other (Cannot hear heart sounds due to upper airway noise) Respiratory: Yes: Diminished (at bases bilaterally with poor inspiratory effort) Gastrointestinal Inspection: Yes: Hernia (umbilical hernia, non-tender, reducible). No: Distention ...Auscultate: Yes: Normoactive Bowel Sounds ...Palpate: No: Tenderness (No grimacing upon palpation) ...Percussion: No: Tympanitic Edema: No (No LE edema) Neurological: Yes: Other (follows commands) Labs: CBC, BMP 03/04/18 05:30 03/04/18 05:30 INR, PTT INR 1.18 (0.83-1.09) H 02/28/18 20:06 Hepatic Panel Total Bilirubin 1.4 mg/dL (0.2-1) H 03/04/18 05:30 AST 23 U/L (15-37) 03/04/18 05:30 ALT 18 U/L (13-61) 03/04/18 05:30 Alkaline Phosphatase 41 U/L (45-117) L 03/04/18 05:30 Albumin 2.5 g/dl (3.4-5.0) L 03/04/18 05:30 Problem List - Problems (1) Volvulus of sigmoid colon Assessment/Plan: Clinically, remains decompressed Rectal tubes in place: flush twice per shift AXR in AM Surgery following Code(s): K56.2 - VOLVULUS
[2018-03-04] MEDS: DILTIAZEM INJECTION 125 MG in DEXTROSE 5%-WATER - 100 ML IVPB SCH ×2 (17:18→17:52)
[2018-03-04] MEDS ORDERED: dilTIAZem HCL 125 MG/25 ML - 25 ML VIAL ONE (17:46)
[2018-03-04 19:09] LABS: ANION GAP 9 MMOL/L (8-16); BLOOD UREA NITROGEN 8 mg/dL (7-18); CALCIUM 7.3 mg/dL (8.5-10.1); CHLORIDE 103 mmol/L (98-107); CO2 28 mmol/L (21-32); CREATININE 0.5 mg/dL (0.55-1.3); GLUCOSE,RANDOM 149 mg/dL (74-106); POTASSIUM 3.3 mmol/L (3.5-5.1); SODIUM 140 mmol/L (136-145)
[2018-03-04] MEDS: INSULIN (LEVEMIR) 100 UNITS/ML UNITS SQ SCH (22:54)
[2018-03-04] MEDS: FAMOTIDINE 20 MG/50 ML IVPB 20 MG/50 ML MG IVPB SCH (23:02)
[2018-03-05] MEDS: KCL 10 MEQ IVPB 10 MEQ/100 ML INFUS.BAG IVPB SCH (01:20)
[2018-03-05] MEDS: PIPERACILLIN/TAZOB 4.5 GM 4.5 GM in DEXTROSE 5%-WATER 100 ML IVPB SCH ×3 (02:17→17:52)
[2018-03-05 06:08] LABS: ARTERIAL BLD GAS O2 SATURATION 90.2 % (90-98.9); ARTERIAL BLOOD GAS BASE EXCESS 4.4 meq/l (-2-2); ARTERIAL BLOOD GAS PCO2 38.1 mmHg (35-45); ARTERIAL BLOOD GAS PO2 61.3 mmHg (70-100); ARTERIAL BLOOD GAS pH 7.47 (7.35-7.45)
[2018-03-05] MEDS: INSULIN SLIDING SCALE (NOVOLOG) 1 VIAL SQ SCH ×4 (06:25→21:18)
[2018-03-05 06:42] LABS: BASO % 0.6 % (0-2.0); EOS % 2.5 % (0-4.5); HEMATOCRIT 39.4 % (35.4-49); HEMOGLOBIN 13.3 GM/dL (11.7-16.9); MCH 31.3 pg (25.7-33.7); MCHC 33.7 g/dl (32.0-35.9); MEAN CELL VOLUME 92.9 fl (80-96); MEAN PLT VOLUME 10.4 fl (7.5-11.1); MONO % 5.5 % (3.8-10.2); NEUT % 73.4 % (42.8-82.8); PLATELET COUNT 128 K/MM3 (134-434); RBC 4.24 M/mm3 (4.00-5.60); RDW 14.9 % (11.9-15.9); WHITE BLOOD COUNT 10.9 K/mm3 (4.0-10.0)
[2018-03-05 06:54] LABS: ALLENS TEST POSITIVE
[2018-03-05] MEDS: GABAPENTIN 300 MG CAPSULE (FP) PO SCH ×3 (06:54→23:20)
[2018-03-05 07:13] LABS: ALBUMIN 2.5 g/dl (3.4-5.0); ALK PHOS 43 U/L (45-117); ANION GAP 8 MMOL/L (8-16); BILIRUBIN,TOTAL 1.4 mg/dL (0.2-1); BLOOD UREA NITROGEN 7 mg/dL (7-18); CALCIUM 7.5 mg/dL (8.5-10.1); CHLORIDE 100 mmol/L (98-107); CO2 29 mmol/L (21-32); CREATININE 0.5 mg/dL (0.55-1.3); GLUCOSE,RANDOM 159 mg/dL (74-106); MAGNESIUM 1.9 mg/dL (1.8-2.4); PHOSPHOROUS 2.5 mg/dL (2.5-4.9); POTASSIUM 3.7 mmol/L (3.5-5.1); PREALBUMIN 10.5 mg/dl (20-40); SGOT/AST 31 U/L (15-37); SGPT/ALT 19 U/L (13-61); SODIUM 137 mmol/L (136-145); TOT PROT 6.1 g/dl (6.4-8.2)
[2018-03-05] MEDS: ALBUTEROL SO4 2.5/IPRATROPIUM 0.5 INH SOL 3 ML VIAL.NEB. NEB SCH ×4 (08:00→20:45)
[2018-03-05] MEDS ORDERED: POTASSIUM CHLORIDE ORAL LIQUID 20 MEQ/15 ML PO ONE (08:45)
--- NOTE | 2018-03-05 09:16 | PN ---
Progress Note, Physician History of Present Illness: 77yo male PMH HTN, HLD, CHF, CVA with residual right sided weakness, dysphagia, DM2, COPD presented with weakness and fever 103 from [facility]. Remains weak, marginally responsive, on cardizem for Afib which is more rate controlled now. - Current Medication List Current Medications: Active Medications Acetaminophen (Tylenol -) 650 mg PO Q6H PRN PRN Reason: FEVER Last Admin: 03/03/18 17:27 Dose: 650 mg Albuterol/Ipratropium (Duoneb -) 1 amp NEB RQID [facility] Last Admin: 03/04/18 21:35 Dose: 1 amp Aspirin (Asa -) 81 mg PO DAILY [facility] Last Admin: 03/04/18 09:43 Dose: Not Given Atorvastatin Calcium (Lipitor -) 40 mg PO HS [facility] Last Admin: 03/04/18 22:55 Dose: Not Given Clotrimazole (Clotrimazole) 1 applic TP BID [facility] Last Admin: 03/04/18 22:54 Dose: 1 applic Docusate Sodium (Colace -) 200 mg PO DAILY [facility] Last Admin: 03/04/18 09:43 Dose: Not Given Enoxaparin Sodium (Lovenox -) 100 mg SQ BID [facility] Last Admin: 03/04/18 23:21 Dose: 100 mg Escitalopram Oxalate (Lexapro -) 10 mg PO DAILY [facility] Last Admin: 03/04/18 09:43 Dose: Not Given Gabapentin (Neurontin -) 300 mg PO TID [facility] Last Admin: 03/05/18 06:54 Dose: Not Given Piperacillin Sod/Tazobactam (Sod 4.5 gm/ Dextrose) 100 mls @ 200 mls/hr IVPB Q8H-IV [facility]; Protocol Last Admin: 03/05/18 02:17 Dose: 200 mls/hr Potassium Chloride 20 meq/ (Sodium Chloride) 1,010 mls @ 100 mls/hr IVPB ASDIR [facility] Last Admin: 03/04/18 15:02 Dose: Not Given Diltiazem HCl 125 mg/ Dextrose 125 mls @ 5 mls/hr IVPB TITR [facility]; Protocol Last Admin: 03/04/18 17:52 Dose: 15 mg/hr, 15 mls/hr Famotidine/Sodium Chloride (Pepcid 20 Mg Premixed Ivpb -) 20 mg in 50 mls @ 100 mls/hr IVPB BID [facility] Last Admin: 03/04/18 23:02 Dose: 100 mls/hr Insulin Aspart (Novolog Vial Sliding Scale -) 1 vial SQ ACHS [facility]; Protocol Last Admin: 03/05/18 06:25 Dose: 2 units Insulin Detemir (Levemir Vial) 20 units SQ HS [facility] Last Admin: 03/04/18 22:54 Dose: Not Given Lisinopril (Prinivil) 30 mg PO DAILY [facility] Last Admin: 03/04/18 09:43 Dose: Not Given Methyl Salicylate (Felix-Seaman -) 1 applic TP Q8H PRN PRN Reason: BODY ACHES Metoprolol Tartrate (Lopressor -) 25 mg NGT BID [facility] Last Admin: 03/04/18 22:55 Dose: Not Given Multi-Ingredient Ointment (Zinc Oxide) 1 applic TP BID [facility] Last Admin: 03/04/18 23:23 Dose: Not Given Senna (Senna -) 2 tab PO [facility] Last Admin: 03/04/18 23:19 Dose: Not Given - Objective Vital Signs: Vital Signs Temperature 99.6 F 03/05/18 06:00 Pulse Rate 96 H 03/05/18 08:00 Respiratory Rate 31 H 03/05/18 08:00 Blood Pressure 146/100 03/05/18 08:00 O2 Sat by Pulse Oximetry (%) 95 03/05/18 08:00 Vital Signs Period Temp Pulse Resp BP Sys/Pham Pulse Ox Last 24 Hr 32 F-99.6 F 78-104 22-32 120-146/68-100 89-95 Intake & Output 03/04/18 03/05/18 03/05/18 23:59 07:59 15:59 Intake Total 2140 1050 Output Total 600 600 Balance 1540 450 Weight 222 lb 6.4 oz Intake: IV 1640 800 1/2 Normal Saline 1,000 1400 800 ml @ 100 mls/hr IVPB ASDIR [facility] with KCl - 20 Meq Rx#:[id number] Cardizem Injection - 125 240 mg In D5w - 100 ml @ 5 MG /HR 5 mls/hr IVPB TITR [facility] Rx#:[id number] IVPB 500 250 Output: Urine 600 600 Davis 600 600 Other: Voiding Method Indwelling Catheter Indwelling Catheter Indwelling Catheter Constitutional: Yes: No Distress, Calm, Obese Eyes: Yes: Conjunctiva Clear, EOM Intact HENT: Yes: Atraumatic, Normocephalic Neck: Yes: Supple, Trachea Midline Cardiovascular: Yes: Regular Rate and Rhythm, S1, S2 Respiratory: Yes: Regular, CTA Bilaterally, Diminished, On Venti-Mask Gastrointestinal: Yes: Soft, Abdomen, Obese, Hypoactive Bowel Sounds. No: Palpable Mass, Tenderness, Tenderness, Epigastrium, Tenderness, Rebound ...Rectal Exam: Yes: Other (rectal tube in place) Genitourinary: No: CVA Tenderness - Left, CVA Tenderness - Right Extremities: No: Cool, Cyanosis Edema: No Peripheral Pulses WNL: Yes Peripheral Pulses: Left Radial: 2+, Right Radial: 2+, Left Doralis Pedis: 2+, Right Dorsalis Pedis: 2+ Integumentary: No: Jaundice, Laceration, Rash Neurological: Yes: Alert, Oriented Psychiatric: Yes: Alert, Oriented Labs: CBC, BMP 03/05/18 05:30 03/05/18 05:30 INR, PTT INR 1.18 (0.83-1.09) H 02/28/18 20:06 Problem List - Problems (1) Volvulus of sigmoid colon Assessment/Plan: 77yo male MMP RLL pneumonia recently decompressed with rectal tube now soft abdomen with out peritonitis. Would not reccomend immediate surgical intervention. Once improved he may be a candidate for elective sigmoid colectomy. Prealb 10.5, Alb 2.5, tropnin still elevated 0.25 on cardizem drip for Afib. He is also requiring blowby for hypoxemia even though pneumnoia may no be significant. ICU management continue IV antibiotics Start tube feeds rectal tube in place - being followed by GI Serial abdominal exams and imaging as needed Discuss plan with family will follow This patient is critically ill. Time spent reviewing chart, examining patient, talking with providers and/or family and documentation is 35 minutes. Code(s): K56.2 - VOLVULUS (2) Elevated troponin Code(s): R74.8 - ABNORMAL LEVELS OF OTHER SERUM ENZYMES (3) Hypoxemia Code(s): R09.02 - HYPOXEMIA (4) Pneumonia Code(s): J18.9 - PNEUMONIA, UNSPECIFIED ORGANISM (5) COPD (chronic obstructive pulmonary disease) Code(s): J44.9 - CHRONIC OBSTRUCTIVE PULMONARY DISEASE, UNSPECIFIED Qualifiers: Emphysema type: unspecified Qualified Code(s): J43.9 - Emphysema, unspecified (6) Diabetes Code(s): E11.9 - TYPE 2 DIABETES MELLITUS WITHOUT COMPLICATIONS (7) Fecal retention Code(s): K59.00 - CONSTIPATION, UNSPECIFIED
[2018-03-05] MEDS ORDERED: PIPERACILLIN/TAZOBACTAM 4.5 GM VIAL IVPB ONE ×2 (09:25→17:46)
[2018-03-05] MEDS ORDERED: DEXTROSE 5%-WATER 100 ML IVPB ONE ×2 (09:25→17:46)
[2018-03-05] MEDS: ENOXAPARIN NA (PORCINE) 100 MG/1 ML DISP.SYRIN SQ SCH ×2 (09:33→21:13)
[2018-03-05] MEDS: METOPROLOL TARTRATE 25 MG TABLET (FP) NGT SCH ×2 (09:33→23:20)
[2018-03-05] MEDS: ESCITALOPRAM OXALATE 10 MG TABLET (FP) PO SCH (09:33)
[2018-03-05] MEDS: LISINOPRIL 10 MG TABLET (FP) PO SCH (09:33)
[2018-03-05] MEDS: FAMOTIDINE 20 MG/50 ML IVPB 20 MG/50 ML MG IVPB SCH ×2 (09:33→21:18)
[2018-03-05] MEDS: ASPIRIN 81 MG CHEWABLE TABLETS PO SCH (10:26)
[2018-03-05] MEDS: CLOTRIMAZOLE 1% 10 ML TOPICAL SOLUTION TP SCH ×2 (10:26→23:10)
[2018-03-05] MEDS: DOCUSATE SODIUM 100 MG CAPSULE (FP) PO SCH (10:26)
[2018-03-05] MEDS: ZINC OXIDE 20% TOPICAL OINTMENT 30 GM TUBE TP SCH ×2 (10:30→21:12)
--- NOTE | 2018-03-05 10:42 | PN ---
Progress Note, Physician Chief Complaint: Events noted Monitor shows sinus with APC and burst of atrial arrhythmias currently on high flow O2 History of Present Illness: Patient was seen and examined. Awake but does not verbalize. Chart was reviewed - Current Medication List Current Medications: Active Medications Acetaminophen (Tylenol -) 650 mg PO Q6H PRN PRN Reason: FEVER Last Admin: 03/03/18 17:27 Dose: 650 mg Albuterol/Ipratropium (Duoneb -) 1 amp NEB RQID [facility] Last Admin: 03/04/18 21:35 Dose: 1 amp Aspirin (Asa -) 81 mg PO DAILY [facility] Last Admin: 03/05/18 10:26 Dose: 81 mg Atorvastatin Calcium (Lipitor -) 40 mg PO HS [facility] Last Admin: 03/04/18 22:55 Dose: Not Given Clotrimazole (Clotrimazole) 1 applic TP BID [facility] Last Admin: 03/05/18 10:26 Dose: 1 applic Docusate Sodium (Colace -) 200 mg PO DAILY [facility] Last Admin: 03/05/18 10:26 Dose: Not Given Enoxaparin Sodium (Lovenox -) 100 mg SQ BID [facility] Last Admin: 03/05/18 09:33 Dose: 100 mg Escitalopram Oxalate (Lexapro -) 10 mg PO DAILY [facility] Last Admin: 03/05/18 09:33 Dose: 10 mg Gabapentin (Neurontin -) 300 mg PO TID [facility] Last Admin: 03/05/18 06:54 Dose: Not Given Piperacillin Sod/Tazobactam (Sod 4.5 gm/ Dextrose) 100 mls @ 200 mls/hr IVPB Q8H-IV [facility]; Protocol Last Admin: 03/05/18 09:32 Dose: 200 mls/hr Potassium Chloride 20 meq/ (Sodium Chloride) 1,010 mls @ 100 mls/hr IVPB ASDIR [facility] Last Admin: 03/04/18 15:02 Dose: Not Given Diltiazem HCl 125 mg/ Dextrose 125 mls @ 5 mls/hr IVPB TITR [facility]; Protocol Last Admin: 03/04/18 17:52 Dose: 15 mg/hr, 15 mls/hr Famotidine/Sodium Chloride (Pepcid 20 Mg Premixed Ivpb -) 20 mg in 50 mls @ 100 mls/hr IVPB BID [facility] Last Admin: 03/05/18 09:33 Dose: 100 mls/hr Insulin Aspart (Novolog Vial Sliding Scale -) 1 vial SQ [facility]; Protocol Last Admin: 03/05/18 06:25 Dose: 2 units Insulin Detemir (Levemir Vial) 20 units SQ [facility] Last Admin: 03/04/18 22:54 Dose: Not Given Lisinopril (Prinivil) 30 mg PO DAILY [facility] Last Admin: 03/05/18 09:33 Dose: 30 mg Methyl Salicylate (Felix-Seaman -) 1 applic TP Q8H PRN PRN Reason: BODY ACHES Metoprolol Tartrate (Lopressor -) 25 mg NGT BID [facility] Last Admin: 03/05/18 09:33 Dose: 25 mg Multi-Ingredient Ointment (Zinc Oxide) 1 applic TP BID [facility] Last Admin: 03/04/18 23:23 Dose: Not Given Senna (Senna -) 2 tab PO [facility] Last Admin: 03/04/18 23:19 Dose: Not Given - Objective Vital Signs: Vital Signs Temperature 32 F L 03/05/18 09:56 Pulse Rate 92 H 03/05/18 10:00 Respiratory Rate 32 H 03/05/18 10:00 Blood Pressure 136/69 03/05/18 10:00 O2 Sat by Pulse Oximetry (%) 95 03/05/18 08:00 Neck: Yes: Supple Cardiovascular: Yes: Tachycardia, Pulse Irregular, S1, S2 Respiratory: Yes: Diminished Gastrointestinal: Yes: Soft. No: Tenderness Edema: No Labs: CBC, BMP 03/05/18 05:30 03/05/18 05:30 Problem List - Problems (1) Demand ischemia Code(s): I24.8 - OTHER FORMS OF ACUTE ISCHEMIC HEART DISEASE (2) Pneumonia Code(s): J18.9 - PNEUMONIA, UNSPECIFIED ORGANISM (3) Premature ventricular contraction Code(s): I49.3 - VENTRICULAR PREMATURE DEPOLARIZATION (4) Rapid atrial fibrillation Code(s): I48.91 - UNSPECIFIED ATRIAL FIBRILLATION (5) Sepsis Code(s): A41.9 - SEPSIS, UNSPECIFIED ORGANISM Qualifiers: Sepsis type: sepsis due to unspecified organism Qualified Code(s): A41.9 - Sepsis, unspecified organism (6) Volvulus of sigmoid colon Code(s): K56.2 - VOLVULUS (7) COPD (chronic obstructive pulmonary disease) Code(s): J44.9 - CHRONIC OBSTRUCTIVE PULMONARY DISEASE, UNSPECIFIED Qualifiers: Emphysema type: unspecified (8) Diabetes Code(s): E11.9 - TYPE 2 DIABETES MELLITUS WITHOUT COMPLICATIONS (9) Diastolic dysfunction Code(s): I51.9 - HEART DISEASE, UNSPECIFIED (10) H/O: CVA (cerebrovascular accident) Code(s): Z86.73 - PRSNL HX OF TIA (TIA), AND CEREB INFRC W/O RESID DEFICITS (11) Hyperlipidemia Code(s): E78.5 - HYPERLIPIDEMIA, UNSPECIFIED Qualifiers: Hyperlipidemia type: pure hypercholesterolemia Qualified Code(s): E78.00 - Pure hypercholesterolemia, unspecified; E78.0 - Pure hypercholesterolemia (12) Hypertension Code(s): I10 - ESSENTIAL (PRIMARY) HYPERTENSION Qualifiers: Hypertension type: essential hypertension Qualified Code(s): I10 - Essential (primary) hypertension (13) Toxic metabolic encephalopathy Code(s): G92 - TOXIC ENCEPHALOPATHY Assessment/Plan 1. RLL aspiration pneumonia 2. Possible intermittent sigmoid volvulus 3. LV Diastolic Dysfunction 4. Demand ischemia 5. Toxic-metabolic encephalopathy 6. History of CVA with residual right-sided weakness and chronic dysphagia 7. PAF 8. PVC 9. Hypernatremia PLAN: 1. Empiric antibiotic course to cover possible aspiration pneumonia and community acquired pneumonia 2. Continue Cardizem gtt and Lopressor for rate-control, but switch to PO regimen as tolerated 3. Lovenox 100 BID. Consider switching to Eliquis 5 mg BID once he is able to take PO 4. Inhaled bronchodilators 5. GI and surgery input 6. DVT and GI prophylaxis Further plans are to follow Rachid Richards MD
--- NOTE | 2018-03-05 10:47 | PN ---
Progress Note, Physician History of Present Illness: Awake, on high flow O2 No c/o dyspnea/ cough No c/o abdominal pain Temps down afebrile Breathing non-labored - Current Medication List Current Medications: Active Medications Acetaminophen (Tylenol -) 650 mg PO Q6H PRN PRN Reason: FEVER Last Admin: 03/03/18 17:27 Dose: 650 mg Albuterol/Ipratropium (Duoneb -) 1 amp NEB RQID [facility] Last Admin: 03/04/18 21:35 Dose: 1 amp Aspirin (Asa -) 81 mg PO DAILY [facility] Last Admin: 03/05/18 10:26 Dose: 81 mg Atorvastatin Calcium (Lipitor -) 40 mg PO HS [facility] Last Admin: 03/04/18 22:55 Dose: Not Given Clotrimazole (Clotrimazole) 1 applic TP BID [facility] Last Admin: 03/05/18 10:26 Dose: 1 applic Docusate Sodium (Colace -) 200 mg PO DAILY [facility] Last Admin: 03/05/18 10:26 Dose: Not Given Enoxaparin Sodium (Lovenox -) 100 mg SQ BID [facility] Last Admin: 03/05/18 09:33 Dose: 100 mg Escitalopram Oxalate (Lexapro -) 10 mg PO DAILY [facility] Last Admin: 03/05/18 09:33 Dose: 10 mg Gabapentin (Neurontin -) 300 mg PO TID [facility] Last Admin: 03/05/18 06:54 Dose: Not Given Piperacillin Sod/Tazobactam (Sod 4.5 gm/ Dextrose) 100 mls @ 200 mls/hr IVPB Q8H-IV [facility]; Protocol Last Admin: 03/05/18 09:32 Dose: 200 mls/hr Potassium Chloride 20 meq/ (Sodium Chloride) 1,010 mls @ 100 mls/hr IVPB ASDIR [facility] Last Admin: 03/04/18 15:02 Dose: Not Given Diltiazem HCl 125 mg/ Dextrose 125 mls @ 5 mls/hr IVPB TITR [facility]; Protocol Last Admin: 03/04/18 17:52 Dose: 15 mg/hr, 15 mls/hr Famotidine/Sodium Chloride (Pepcid 20 Mg Premixed Ivpb -) 20 mg in 50 mls @ 100 mls/hr IVPB BID [facility] Last Admin: 11/11/18 09:33 Dose: 100 mls/hr Insulin Aspart (Novolog Vial Sliding Scale -) 1 vial SQ [facility]; Protocol Last Admin: 03/05/18 06:25 Dose: 2 units Insulin Detemir (Levemir Vial) 20 units SQ [facility] Last Admin: 03/04/18 22:54 Dose: Not Given Lisinopril (Prinivil) 30 mg PO DAILY [facility] Last Admin: 03/05/18 09:33 Dose: 30 mg Methyl Salicylate (Felix-Seaman -) 1 applic TP Q8H PRN PRN Reason: BODY ACHES Metoprolol Tartrate (Lopressor -) 25 mg NGT BID [facility] Last Admin: 03/05/18 09:33 Dose: 25 mg Multi-Ingredient Ointment (Zinc Oxide) 1 applic TP BID [facility] Last Admin: 03/04/18 23:23 Dose: Not Given Senna (Senna -) 2 tab PO [facility] Last Admin: 03/04/18 23:19 Dose: Not Given - Objective Vital Signs: Vital Signs Temperature 32 F L 03/05/18 09:56 Pulse Rate 92 H 03/05/18 10:00 Respiratory Rate 32 H 03/05/18 10:00 Blood Pressure 136/69 03/05/18 10:00 O2 Sat by Pulse Oximetry (%) 95 03/05/18 08:00 Constitutional: Yes: No Distress Cardiovascular: Yes: Regular Rate and Rhythm, S1, S2 Respiratory: Yes: Diminished Gastrointestinal: Yes: Normal Bowel Sounds, Soft. No: Tenderness Labs: CBC, BMP 03/05/18 05:30 03/05/18 05:30 INR, PTT INR 1.18 (0.83-1.09) H 02/28/18 20:06 Assessment/Plan LLL pneumonia Volvulus Rapid Afib Fever- improved Continue zosyn
--- NOTE | 2018-03-05 10:56 | PN ---
GI Progress Note Subjective: No acute events Seems more awake today No abdominal pain AXR performed, not officially read on review reveals some gaseous distention of sigmoid - Objective Vital Signs: Vital Signs Temperature 32 F L 03/05/18 09:56 Pulse Rate 92 H 03/05/18 10:00 Respiratory Rate 32 H 03/05/18 10:00 Blood Pressure 136/69 03/05/18 10:00 O2 Sat by Pulse Oximetry (%) 95 03/05/18 08:00 Constitutional: Calm Eyes: No: Sclera Icterus Cardiovascular: Yes: Regular Rate and Rhythm Gastrointestinal Inspection: No: Distention ...Auscultate: Yes: Normoactive Bowel Sounds ...Palpate: No: Tenderness ...Percussion: Yes: Tympanitic (Mild mid abdominal tympany) ...Rectal Exam: Yes: Other (red rubber rectal tube removed, clear rectal tube left in place and flushed. air expelled) Edema: No (No LE edema) Neurological: Yes: Alert Labs: CBC, BMP 03/05/18 05:30 03/05/18 05:30 INR, PTT INR 1.18 (0.83-1.09) H 02/28/18 20:06 Problem List - Problems (1) Volvulus of sigmoid colon Assessment/Plan: Remains clinically improved I left 1 rectal tube and flushed it with air expulsion Will remove tomorrow and see if gaseous distention recurs Flush rectal tube twice per shift AXR in AM Code(s): K56.2 - VOLVULUS
--- NOTE | 2018-03-05 10:59 | PN ---
Teaching Attending Note Name of Resident: Silvia Ingram ATTENDING PHYSICIAN STATEMENT I saw and evaluated the patient. I reviewed the resident's note and discussed the case with the resident. I agree with the resident's findings and plan as documented. SUBJECTIVE: Patient seen and examined in the ICU. More awake and alert. On 100% NRBM. Remains on IV Cardizem for rate control. Intake & Output 03/02/18 03/03/18 03/04/18 03/05/18 23:59 23:59 23:59 23:59 Intake Total 4100 2047.6 2615 1050 Output Total 2600 2100 600 Balance 4100 -552.4 515 450 Weight 222 lb 222 lb 4.8 oz 223 lb 222 lb 6.4 oz Last Vital Signs Temp Pulse Resp BP Pulse Ox 99.2 F 92 H 32 H 136/69 95 03/05/18 10:56 03/05/18 10:00 03/05/18 10:00 03/05/18 10:00 03/05/18 08:00 Active Medications Acetaminophen (Tylenol -) 650 mg PO Q6H PRN PRN Reason: FEVER Last Admin: 03/03/18 17:27 Dose: 650 mg Albuterol/Ipratropium (Duoneb -) 1 amp NEB RQID [facility] Last Admin: 03/04/18 21:35 Dose: 1 amp Aspirin (Asa -) 81 mg PO DAILY [facility] Last Admin: 03/05/18 10:26 Dose: 81 mg Atorvastatin Calcium (Lipitor -) 40 mg PO HS [facility] Last Admin: 03/04/18 22:55 Dose: Not Given Clotrimazole (Clotrimazole) 1 applic TP BID [facility] Last Admin: 03/05/18 10:26 Dose: 1 applic Docusate Sodium (Colace -) 200 mg PO DAILY [facility] Last Admin: 03/05/18 10:26 Dose: Not Given Enoxaparin Sodium (Lovenox -) 100 mg SQ BID [facility] Last Admin: 03/05/18 09:33 Dose: 100 mg Escitalopram Oxalate (Lexapro -) 10 mg PO DAILY [facility] Last Admin: 03/05/18 09:33 Dose: 10 mg Gabapentin (Neurontin -) 300 mg PO TID [facility] Last Admin: 03/05/18 06:54 Dose: Not Given Piperacillin Sod/Tazobactam (Sod 4.5 gm/ Dextrose) 100 mls @ 200 mls/hr IVPB Q8H-IV [facility]; Protocol Last Admin: 03/05/18 09:32 Dose: 200 mls/hr Potassium Chloride 20 meq/ (Sodium Chloride) 1,010 mls @ 100 mls/hr IVPB ASDIR [facility] Last Admin: 03/04/18 15:02 Dose: Not Given Diltiazem HCl 125 mg/ Dextrose 125 mls @ 5 mls/hr IVPB TITR [facility]; Protocol Last Admin: 03/04/18 17:52 Dose: 15 mg/hr, 15 mls/hr Famotidine/Sodium Chloride (Pepcid 20 Mg Premixed Ivpb -) 20 mg in 50 mls @ 100 mls/hr IVPB BID [facility] Last Admin: 03/05/18 09:33 Dose: 100 mls/hr Insulin Aspart (Novolog Vial Sliding Scale -) 1 vial SQ ACHS [facility]; Protocol Last Admin: 03/05/18 06:25 Dose: 2 units Insulin Detemir (Levemir Vial) 20 units SQ [facility] Last Admin: 03/04/18 22:54 Dose: Not Given Lisinopril (Prinivil) 30 mg PO DAILY [facility] Last Admin: 03/05/18 09:33 Dose: 30 mg Methyl Salicylate (Felix-Seaman -) 1 applic TP Q8H PRN PRN Reason: BODY ACHES Metoprolol Tartrate (Lopressor -) 25 mg NGT BID [facility] Last Admin: 03/05/18 09:33 Dose: 25 mg Multi-Ingredient Ointment (Zinc Oxide) 1 applic TP BID [facility] Last Admin: 03/04/18 23:23 Dose: Not Given Senna (Senna -) 2 tab PO [facility] Last Admin: 03/04/18 23:19 Dose: Not Given Constitutional: Yes: Audible rhonchi, Mildly tachypneic at rest, more awake and alert Eyes: No: Sclera Icterus Cardiovascular: Yes: Tachycardia, Pulse Irregular Respiratory: Yes: Diminished at bases, Bilateral scattered rhonchi Gastrointestinal Inspection: Yes: Less distention, reducible umbilical hernia, no scars, (+) BS Edema: No Neurological: Yes: Non-focal Labs: Laboratory Results - last 24 hr 03/04/18 03/04/18 03/04/18 11:53 17:29 17:50 WBC RBC Hgb Hct MCV MCH MCHC RDW Plt Count MPV Absolute Neuts (auto) Neutrophils % Lymphocytes % Monocytes % Eosinophils % Basophils % Nucleated RBC % Anticoagulation Therapy Puncture Site ABG pH ABG pCO2 at Pt Temp ABG pO2 at Pt Temp ABG HCO3 ABG O2 Sat (Measured) ABG O2 Content ABG Base Excess [place] Test O2 Delivery Device Oxygen Flow Rate Vent Mode Vent Rate Mechanical Rate PEEP Pressure Support Vent Sodium 140 Potassium 3.3 L Chloride 103 Carbon Dioxide 28 Anion Gap 9 BUN 8 Creatinine 0.5 L Creat Clearance w eGFR > 60 POC Glucometer 203.54404 188.40246 Random Glucose 149 H Calcium 7.3 L Phosphorus Magnesium Total Bilirubin AST ALT Alkaline Phosphatase Troponin I B-Natriuretic Peptide Total Protein Albumin Prealbumin 03/04/18 03/05/18 03/05/18 21:12 05:30 05:30 WBC 10.9 H RBC 4.24 Hgb 13.3 Hct 39.4 MCV 92.9 MCH 31.3 MCHC 33.7 RDW 14.9 Plt Count 128 L MPV 10.4 Absolute Neuts (auto) 8.0 Neutrophils % 73.4 Lymphocytes % 18.0 D Monocytes % 5.5 Eosinophils % 2.5 Basophils % 0.6 Nucleated RBC % 0 Anticoagulation Therapy Puncture Site ABG pH ABG pCO2 at Pt Temp ABG pO2 at Pt Temp ABG HCO3 ABG O2 Sat (Measured) ABG O2 Content ABG Base Excess [place] Test O2 Delivery Device Oxygen Flow Rate Vent Mode Vent Rate Mechanical Rate PEEP Pressure Support Vent Sodium 137 Potassium 3.7 Chloride 100 Carbon Dioxide 29 Anion Gap 8 BUN 7 Creatinine 0.5 L Creat Clearance w eGFR > 60 POC Glucometer 173.96077 Random Glucose 159 H Calcium 7.5 L Phosphorus 2.5 Magnesium 1.9 Total Bilirubin 1.4 H AST 31 ALT 19 Alkaline Phosphatase 43 L Troponin I 0.23 H B-Natriuretic Peptide 101.0 Total Protein 6.1 L Albumin 2.5 L Prealbumin 10.5 L 03/05/18 05:45 WBC RBC Hgb Hct MCV MCH MCHC RDW Plt Count MPV Absolute Neuts (auto) Neutrophils % Lymphocytes % Monocytes % Eosinophils % Basophils % Nucleated RBC % Anticoagulation Therapy No Result Required. Puncture Site Left radial ABG pH 7.47 H ABG pCO2 at Pt Temp 38.1 ABG pO2 at Pt Temp 61.3 L D ABG HCO3 27.7 H ABG O2 Sat (Measured) 90.2 ABG O2 Content 18.9 ABG Base Excess 4.4 H [place] Test Positive O2 Delivery Device Venti mask Oxygen Flow Rate 40% Vent Mode No Result Required. Vent Rate No Result Required. Mechanical Rate No Result Required. PEEP 0.0 Pressure Support Vent No Result Required. Sodium Potassium Chloride Carbon Dioxide Anion Gap BUN Creatinine Creat Clearance w eGFR POC Glucometer Random Glucose Calcium Phosphorus Magnesium Total Bilirubin AST ALT Alkaline Phosphatase Troponin I B-Natriuretic Peptide Total Protein Albumin Prealbumin Problem List (1) Volvulus of descending colon Code(s): K56.2 - VOLVULUS (2) Elevated troponin Code(s): R74.8 - ABNORMAL LEVELS OF OTHER SERUM ENZYMES (3) Rapid atrial fibrillation Code(s): I48.91 - UNSPECIFIED ATRIAL FIBRILLATION (4) Diastolic dysfunction Code(s): I51.9 - HEART DISEASE, UNSPECIFIED (5) H/O: CVA (cerebrovascular accident) Code(s): Z86.73 - PRSNL HX OF TIA (TIA), AND CEREB INFRC W/O RESID DEFICITS (6) Hyperlipidemia Code(s): E78.5 - HYPERLIPIDEMIA, UNSPECIFIED Qualifiers: Hyperlipidemia type: pure hypercholesterolemia Qualified Code(s): E78.00 - Pure hypercholesterolemia, unspecified; E78.0 - Pure hypercholesterolemia (7) Hypertension Code(s): I10 - ESSENTIAL (PRIMARY) HYPERTENSION Qualifiers: Hypertension type: essential hypertension Qualified Code(s): I10 - Essential (primary) hypertension (8) Pneumonia Code(s): J18.9 - PNEUMONIA, UNSPECIFIED ORGANISM Qualifiers: Pneumonia type: due to unspecified organism Laterality: right Lung location: lower lobe of lung Qualified Code(s): J18.1 - Lobar pneumonia, unspecified organism (9) Toxic metabolic encephalopathy Code(s): G92 - TOXIC ENCEPHALOPATHY (10) Demand ischemia Code(s): I24.8 - OTHER FORMS OF ACUTE ISCHEMIC HEART DISEASE (11) Hypokalemia Code(s): E87.6 - HYPOKALEMIA (12) Premature ventricular contraction Code(s): I49.3 - VENTRICULAR PREMATURE DEPOLARIZATION Assessment/Plan RLL PNA (HCAP) Toxic-metabolic encephelopathy Rapid afib NGT Trial of HFOT Aspiration precautions O2 as needed Cardizem IV for rate control AC with Lovenox BID ABX per ID ASA BD TX Enteral feeds and transition to NGT meds ICU monitoring Dr Patel Critical care time spent in reviewing chart, evaluating patient and formulating plan - 36 minutes.
--- NOTE | 2018-03-05 11:01 | PN ---
Progress Note (short form) - Note Progress Note: pt seen/ examined in icu all f/u noted/ appreciated pt more awake today denies pain. on high flow oxygen HR better controlled low grade temp Vital Signs Temp 99.2 F 03/05/18 10:56 Pulse 92 H 03/05/18 10:00 Resp 32 H 03/05/18 10:00 BP 136/69 03/05/18 10:00 Pulse Ox 95 03/05/18 08:00 Intake & Output 03/04/18 03/04/18 03/05/18 11:59 23:59 11:59 Intake Total 475 2140 1050 Output Total 2100 600 Balance 475 40 450 Weight 223 lb 222 lb 6.4 oz Intake: IV 75 1640 800 1/2 Normal Saline 1,000 1400 800 ml @ 100 mls/hr IVPB ASDIR [facility] with KCl - 20 Meq Rx#:[id number] Cardizem Injection - 125 75 240 mg In D5w - 100 ml @ 5 MG /HR 5 mls/hr IVPB TITR [facility] Rx#:[id number] IVPB 400 500 250 Output: Urine 2100 600 Davis 2100 600 Other: Voiding Method Indwelling Catheter Indwelling Catheter Indwelling Catheter Active Medications Acetaminophen (Tylenol -) 650 mg PO Q6H PRN PRN Reason: FEVER Last Admin: 03/03/18 17:27 Dose: 650 mg Albuterol/Ipratropium (Duoneb -) 1 amp NEB RQID [facility] Last Admin: 03/04/18 21:35 Dose: 1 amp Aspirin (Asa -) 81 mg PO DAILY [facility] Last Admin: 03/05/18 10:26 Dose: 81 mg Atorvastatin Calcium (Lipitor -) 40 mg PO HS [facility] Last Admin: 03/04/18 22:55 Dose: Not Given Clotrimazole (Clotrimazole) 1 applic TP BID [facility] Last Admin: 03/05/18 10:26 Dose: 1 applic Docusate Sodium (Colace -) 200 mg PO DAILY [facility] Last Admin: 03/05/18 10:26 Dose: Not Given Enoxaparin Sodium (Lovenox -) 100 mg SQ BID [facility] Last Admin: 03/05/18 09:33 Dose: 100 mg Escitalopram Oxalate (Lexapro -) 10 mg PO DAILY [facility] Last Admin: 03/05/18 09:33 Dose: 10 mg Gabapentin (Neurontin -) 300 mg PO TID [facility] Last Admin: 03/05/18 06:54 Dose: Not Given Piperacillin Sod/Tazobactam (Sod 4.5 gm/ Dextrose) 100 mls @ 200 mls/hr IVPB Q8H-IV [facility]; Protocol Last Admin: 03/05/18 09:32 Dose: 200 mls/hr Potassium Chloride 20 meq/ (Sodium Chloride) 1,010 mls @ 100 mls/hr IVPB ASDIR [facility] Last Admin: 03/04/18 15:02 Dose: Not Given Diltiazem HCl 125 mg/ Dextrose 125 mls @ 5 mls/hr IVPB TITR [facility]; Protocol Last Admin: 03/04/18 17:52 Dose: 15 mg/hr, 15 mls/hr Famotidine/Sodium Chloride (Pepcid 20 Mg Premixed Ivpb -) 20 mg in 50 mls @ 100 mls/hr IVPB BID [facility] Last Admin: 03/05/18 09:33 Dose: 100 mls/hr Insulin Aspart (Novolog Vial Sliding Scale -) 1 vial SQ ACHS [facility]; Protocol Last Admin: 03/05/18 06:25 Dose: 2 units Insulin Detemir (Levemir Vial) 20 units SQ [facility] Last Admin: 03/04/18 22:54 Dose: Not Given Lisinopril (Prinivil) 30 mg PO DAILY [facility] Last Admin: 03/05/18 09:33 Dose: 30 mg Methyl Salicylate (Felix-Seaman -) 1 applic TP Q8H PRN PRN Reason: BODY ACHES Metoprolol Tartrate (Lopressor -) 25 mg NGT BID [facility] Last Admin: 03/05/18 09:33 Dose: 25 mg Multi-Ingredient Ointment (Zinc Oxide) 1 applic TP BID [facility] Last Admin: 03/04/18 23:23 Dose: Not Given Senna (Senna -) 2 tab PO HS [facility] Last Admin: 03/04/18 23:19 Dose: Not Given CBC, BMP 03/05/18 05:30 03/05/18 05:30 Microbiology 02/28/18 20:25 Blood Culture - Preliminary Blood - Peripheral Venous NO GROWTH OBTAINED AFTER 96 HOURS, INCUBATION TO CONTINUE FOR 1 DAYS. 02/28/18 20:25 Blood Culture - Preliminary Blood - Peripheral Venous NO GROWTH OBTAINED AFTER 96 HOURS, INCUBATION TO CONTINUE FOR 1 DAYS. Physical Exam Constitutional: Yes:more awake. Neck: Yes: Supple. no jvd Cardiovascular: Yes: Irregular Respiratory: Yes: Regular, Diminished Gastrointestinal: Yes: soft/ non tender Edema: No. Davis / rectal tube + a/p volvulus pneumonia fever rapid afib-- better Uncontrolled diabetes-- electrolyte imbalance Better continue present care abx monitor labs/ lytes surgery/ gi on case-- start on feeding / po meds when cleared by gi / surgery continue close monitoring will follow discussed with nursing staff and icu residents/ attending also Problem List - Problems (1) Demand ischemia Code(s): I24.8 - OTHER FORMS OF ACUTE ISCHEMIC HEART DISEASE (2) Elevated troponin Code(s): R74.8 - ABNORMAL LEVELS OF OTHER SERUM ENZYMES (3) Hypokalemia Code(s): E87.6 - HYPOKALEMIA (4) Pneumonia Code(s): J18.9 - PNEUMONIA, UNSPECIFIED ORGANISM (5) Rapid atrial fibrillation Code(s): I48.91 - UNSPECIFIED ATRIAL FIBRILLATION (6) Volvulus of descending colon Code(s): K56.2 - VOLVULUS (7) Diabetes Code(s): E11.9 - TYPE 2 DIABETES MELLITUS WITHOUT COMPLICATIONS (8) Fecal retention Code(s): K59.00 - CONSTIPATION, UNSPECIFIED (9) H/O: CVA (cerebrovascular accident) Code(s): Z86.73 - PRSNL HX OF TIA (TIA), AND CEREB INFRC W/O RESID DEFICITS
[2018-03-05] MEDS ORDERED: MAGNESIUM OXIDE 400 MG TABLET (FP) PO ONE (11:45)
--- NOTE | 2018-03-05 13:40 | EKG ---
Test Reason : Blood Pressure : / mmHG Vent. Rate : 100 BPM Atrial Rate : 085 BPM P-R Int : 168 ms QRS Dur : 098 ms QT Int : 372 ms P-R-T Axes : 060 -41 012 degrees QTc Int : 479 ms NORMAL SINUS RHYTHM WITH APC VS. MULTIFOCAL ATRIAL TACHYCARDIA LEFT AXIS DEVIATION ABNORMAL ECG WHEN COMPARED WITH ECG OF 01-MAR-2018 10:09, NOTE RHYTHM CHANGE Confirmed by BHAVIN PUENTE, BECKIE ([id number]) on 03/05/2018 1:40:32 PM Referred By: Priya ESPITIA Confirmed By:BECKIE DELCID MD
[2018-03-05] MEDS: SODIUM CHLORIDE 0.45% 1,000 ML with POTASSIUM CHLORIDE 20 MEQ IVPB SCH (16:30)
--- NOTE | 2018-03-05 17:26 | PN ---
Physical Exam: SUBJECTIVE: Patient seen and examined at bedside. Patient remained on cardizem ggt and venti mask overnight. Started to desaturate in the morning, put on nonrebreather mask placed, then put on high flow oxygen. Patient also started on tube feeds today. OBJECTIVE: Vital Signs Period Temp Pulse Resp BP Sys/Pham Pulse Ox Last 24 Hr 32 F-99.8 F 78-104 22-38 120-148/68-100 89-95 GENERAL: Patient is awake, alert, and fully oriented, in moderate distress, on high flow nasal oxygen EYES: PERRLA, EOMI, sclera anicteric, conjunctiva clear. LUNGS: +scattered rhonchi bilaterally HEART: Regular rate, irregular rhythm, without murmur, rub or gallop. ABDOMEN: Soft, nontender, nondistended, normoactive bowel sounds. UPPER EXTREMITIES: 2+ pulses, warm, well-perfused. No peripheral edema. LOWER EXTREMITIES: 2+ pulses, warm, well-perfused. +1 peripheral edema SKIN: Warm, dry, normal turgor, no rashes or lesions noted. Laboratory Results - last 24 hr 03/04/18 03/04/18 03/04/18 17:29 17:50 21:12 WBC RBC Hgb Hct MCV MCH MCHC RDW Plt Count MPV Absolute Neuts (auto) Neutrophils % Lymphocytes % Monocytes % Eosinophils % Basophils % Nucleated RBC % Anticoagulation Therapy Puncture Site ABG pH ABG pCO2 at Pt Temp ABG pO2 at Pt Temp ABG HCO3 ABG O2 Sat (Measured) ABG O2 Content ABG Base Excess [place] Test O2 Delivery Device Oxygen Flow Rate Vent Mode Vent Rate Mechanical Rate PEEP Pressure Support Vent Sodium 140 Potassium 3.3 L Chloride 103 Carbon Dioxide 28 Anion Gap 9 BUN 8 Creatinine 0.5 L Creat Clearance w eGFR > 60 POC Glucometer 188.87370 173.05759 Random Glucose 149 H Calcium 7.3 L Phosphorus Magnesium Total Bilirubin AST ALT Alkaline Phosphatase Troponin I B-Natriuretic Peptide Total Protein Albumin Prealbumin 03/05/18 03/05/18 03/05/18 05:30 05:30 05:45 WBC 10.9 H RBC 4.24 Hgb 13.3 Hct 39.4 MCV 92.9 MCH 31.3 MCHC 33.7 RDW 14.9 Plt Count 128 L MPV 10.4 Absolute Neuts (auto) 8.0 Neutrophils % 73.4 Lymphocytes % 18.0 D Monocytes % 5.5 Eosinophils % 2.5 Basophils % 0.6 Nucleated RBC % 0 Anticoagulation Therapy No Result Required. Puncture Site Left radial ABG pH 7.47 H ABG pCO2 at Pt Temp 38.1 ABG pO2 at Pt Temp 61.3 L D ABG HCO3 27.7 H ABG O2 Sat (Measured) 90.2 ABG O2 Content 18.9 ABG Base Excess 4.4 H [place] Test Positive O2 Delivery Device Venti mask Oxygen Flow Rate 40% Vent Mode No Result Required. Vent Rate No Result Required. Mechanical Rate No Result Required. PEEP 0.0 Pressure Support Vent No Result Required. Sodium 137 Potassium 3.7 Chloride 100 Carbon Dioxide 29 Anion Gap 8 BUN 7 Creatinine 0.5 L Creat Clearance w eGFR > 60 POC Glucometer Random Glucose 159 H Calcium 7.5 L Phosphorus 2.5 Magnesium 1.9 Total Bilirubin 1.4 H AST 31 ALT 19 Alkaline Phosphatase 43 L Troponin I 0.23 H B-Natriuretic Peptide 101.0 Total Protein 6.1 L Albumin 2.5 L Prealbumin 10.5 L 03/05/18 03/05/18 10:37 16:38 WBC RBC Hgb Hct MCV MCH MCHC RDW Plt Count MPV Absolute Neuts (auto) Neutrophils % Lymphocytes % Monocytes % Eosinophils % Basophils % Nucleated RBC % Anticoagulation Therapy Puncture Site ABG pH ABG pCO2 at Pt Temp ABG pO2 at Pt Temp ABG HCO3 ABG O2 Sat (Measured) ABG O2 Content ABG Base Excess [place] Test O2 Delivery Device Oxygen Flow Rate Vent Mode Vent Rate Mechanical Rate PEEP Pressure Support Vent Sodium Potassium Chloride Carbon Dioxide Anion Gap BUN Creatinine Creat Clearance w eGFR POC Glucometer [phone] Random Glucose Calcium Phosphorus Magnesium Total Bilirubin AST ALT Alkaline Phosphatase Troponin I B-Natriuretic Peptide Total Protein Albumin Prealbumin Active Medications Generic Name Dose Route Start Last Admin Trade Name Freq PRN Reason Stop Dose Admin Acetaminophen 650 mg 03/01/18 01:29 03/03/18 17:27 Tylenol - PO 650 mg Q6H PRN Administration FEVER Albuterol/Ipratropium 1 amp 03/01/18 08:00 03/05/18 12:00 Duoneb - NEB 1 amp RQID FLORIN Administration Aspirin 81 mg 03/01/18 10:00 03/05/18 10:26 Asa - PO 81 mg DAILY FLORIN Administration Atorvastatin Calcium 40 mg 03/01/18 22:00 03/04/18 22:55 Lipitor - PO Not Given HS FLORIN Clotrimazole 1 applic 03/01/18 10:03 03/05/18 10:26 Clotrimazole TP 1 applic BID FLORIN Administration Docusate Sodium 200 mg 03/01/18 10:00 03/05/18 10:26 Colace - PO Not Given DAILY FLORIN Enoxaparin Sodium 100 mg 03/01/18 13:30 03/05/18 09:33 Lovenox - SQ 100 mg BID FLORIN Administration Escitalopram Oxalate 10 mg 03/01/18 10:00 03/05/18 09:33 Lexapro - PO 10 mg DAILY FLOR[facility] Administration Gabapentin 300 mg 03/01/18 06:00 03/05/18 17:23 Neurontin - PO Not Given TID FLORIN Piperacillin Sod/Tazobactam 100 mls @ 200 mls/hr 03/01/18 10:00 03/05/18 09: 32 Sod 4.5 gm/ Dextrose IVPB 200 mls/hr Q8H-IV [facility] Administration Protocol Potassium Chloride 20 meq/ 1,010 mls @ 100 mls/hr 03/01/18 13:00 03/05/18 16: 30 Sodium Chloride IVPB Not Given ASDIR FLORIN Diltiazem HCl 125 mg/ Dextrose 125 mls @ 5 mls/hr 03/01/18 17:30 03/05/18 16: 34 IVPB 6 mg/hr TITR FLORIN 6 mls/hr Titration Protocol 5 MG/HR Famotidine/Sodium Chloride 20 mg in 50 mls @ 100 mls/hr 03/04/18 22:00 09:33 Pepcid 20 Mg Premixed Ivpb - IVPB 100 mls/hr BID FLORIN Administration Insulin Aspart 1 vial 03/02/18 11:00 03/05/18 16:38 Novolog Vial Sliding Scale - SQ Not Given ACHS [facility] Protocol Insulin Detemir 20 units 03/02/18 09:58 03/04/18 22:54 Levemir Vial SQ Not Given HS FLORIN Lisinopril 30 mg 03/01/18 10:00 03/05/18 09:33 Prinivil PO 30 mg DAILY [facility]OR[facility] Administration Methyl Salicylate 1 applic 03/01/18 01:30 Felix-Seaman - TP Q8H PRN BODY ACHES Metoprolol Tartrate 25 mg 03/03/18 15:59 03/05/18 09:33 Lopressor - NGT 25 mg BID FLORIN Administration Multi-Ingredient Ointment 1 applic 03/01/18 10:00 03/05/18 10:30 Zinc Oxide TP 1 applic BID FLOR[facility] Administration Senna 2 tab 03/01/18 22:00 03/04/18 23:19 Senna - PO Not Given HS [facility] ASSESSMENT/PLAN: Patient is a 77 year old male with past medical history HTN, HLD, DM, COPD, diastolic CHF, Ischemic CVA (with residual right-sided weakness), and chronic dysphagia (previously on trach), was sent from the snf after a 2-day history of fever and lethargy. #Pulmonology 1)Acute Hypoxic Respiratory Failure likely 2/2 Pneumonia -On venti mask 40% -IV Zosyn 4.5gm q8h -IV fluids -Blood Cultures, influenza swab, urine legionalla and pneumococcal -- negative 2)COPD -Duonebs QID #Gastroenterology 1)Sigmoid colon volvulus -CT abdomen and pelvis: Markedly distended sigmoid colon that is suspicious for an intermittent volvulus. Fecal retention proximal to the distended sigmoid colon. -GI (Dr. Alves) consulted. Recommendations appreciated. -Rectal tube inserted last Tuesday -Removed 1 rectal tube. 1 rectal tube left and flushed it with air expulsion -Will remove tomorrow and see if gaseous distention recurs -Flush rectal tubes with 60cc sterile water twice per shift -AXR done. Pending final read. -correct electrolyte abnormalities. -Surgery (Dr. Sharif) consulted. -Would not recommend immediate surgical intervention. -Once improved he may be a candidate for elective sigmoid colectomy. -Can be started on tube feeding for now. #Cardiology 1)Atrial Fibrillation -Cardiology (Dr. Beltrán) consulted. Recommendations appreciated. -Continue IV cardizem ggt -Lopressor 25mg NGT PRN -Start home medications. -Titrate cardizem. 2)Diastolic CHF -Hold home lasix -Continue Lovenox 100mg sq bid 3)Hypertension -on IV cardizem drip and Lopressor -will restart home medications -monitor BP 4)Hyperlipidemia -Continue Atorvastatin 40mg PO HS 5)Troponinemia -peaked at 0.98, now 0.56 -likely 2/2 demand ischemia 6)QTc prolongation: 810ms -Avoid agents that increase QTc #Infectious Disease 1)Sepsis likely 2/2 Pneumonia -CXR: RLL consolidation -ID (Dr. Peters) consulted. Recommendations appreciated. -Continue Zosyn 4.5 gm q8h -Vancomycin discontinued. -Blood cx, urine cx, influenza swab, urine legionella, pneumococcal, c.diff - negative #Nephrology 1)Hypokalemia: K 3.7 -K-dur 40meq PO -repeat bmp -will continue to monitor and replete PRN 2)Hypophosphatemia: resolved -will replete PRN -will continue to monitor #Endocrinology 1)DM -Insulin Levemir 20 units sq hs -Insulin sliding scale ACHS -BGM ACHS #Neurology 1)Hx of Ischemic CVA (with residual right-sided weakness) -continue ASA and atorvastatin #FEN -Not on standing fluids -hypoK, replete PRN -routine bmp monitoring -Tube feeding #Prophylaxis 1)DVT - on Lovenox 100mg sq BID #Disposition -Transferred to ICU for closer monitoring Dispo: We will continue to follow the patient. Thank you for this consultative opportunity. Visit type - Emergency Visit Emergency Visit: Yes ED Registration Date: 02/28/18 Care time: The patient presented to the Emergency Department on the above date and was hospitalized for further evaluation of their emergent condition. - New Patient This patient is new to me today: Yes Date on this admission: 03/06/18 - Critical Care Critical Care patient: Yes Total Critical Care Time (in minutes): 45 Critical Care Statement: The care of this patient involved high complexity decision making to prevent further life threatening deterioration of the patient 's condition and/or to evaluate & treat vital organ system(s) failure or risk of failure.
[2018-03-05] MEDS: DILTIAZEM INJECTION 125 MG in DEXTROSE 5%-WATER - 100 ML IVPB SCH (17:50)
[2018-03-05] MEDS: INSULIN (LEVEMIR) 100 UNITS/ML UNITS SQ SCH (21:19)
[2018-03-05] MEDS: ATORVASTATIN CA 40 MG TABLET (FP) PO SCH (23:20)
[2018-03-05] MEDS: SENNOSIDES 8.6MG TABLET (FP) PO SCH (23:20)
[2018-03-06] MEDS ORDERED: DEXTROSE 5%-WATER 100 ML IVPB ONE ×3 (00:54→17:13)
[2018-03-06] MEDS ORDERED: PIPERACILLIN/TAZOBACTAM 4.5 GM VIAL IVPB ONE ×3 (00:54→17:13)
[2018-03-06] MEDS: PIPERACILLIN/TAZOB 4.5 GM 4.5 GM in DEXTROSE 5%-WATER 100 ML IVPB SCH ×3 (02:33→17:16)
[2018-03-06 06:02] LABS: HEMATOCRIT 37.7 % (35.4-49); HEMOGLOBIN 12.9 GM/dL (11.7-16.9); MCH 31.3 pg (25.7-33.7); MCHC 34.1 g/dl (32.0-35.9); MEAN CELL VOLUME 91.8 fl (80-96); MEAN PLT VOLUME 9.7 fl (7.5-11.1); PLATELET COUNT 160 K/MM3 (134-434); RBC 4.11 M/mm3 (4.00-5.60); RDW 14.2 % (11.9-15.9)
[2018-03-06 06:22] LABS: ANION GAP 11 MMOL/L (8-16); BLOOD UREA NITROGEN 8 mg/dL (7-18); CALCIUM 7.6 mg/dL (8.5-10.1); CHLORIDE 100 mmol/L (98-107); CO2 26 mmol/L (21-32); CREATININE 0.6 mg/dL (0.55-1.3); GLUCOSE,RANDOM 182 mg/dL (74-106); MAGNESIUM 2.2 mg/dL (1.8-2.4); PHOSPHOROUS 2.1 mg/dL (2.5-4.9); POTASSIUM 3.5 mmol/L (3.5-5.1); SODIUM 137 mmol/L (136-145)
[2018-03-06] MEDS: GABAPENTIN 300 MG CAPSULE (FP) PO SCH ×3 (06:44→23:24)
[2018-03-06] MEDS: INSULIN SLIDING SCALE (NOVOLOG) 1 VIAL SQ SCH ×4 (06:44→23:28)
[2018-03-06] MEDS: ALBUTEROL SO4 2.5/IPRATROPIUM 0.5 INH SOL 3 ML VIAL.NEB. NEB SCH ×4 (07:35→21:00)
[2018-03-06] MEDS ORDERED: METOPROLOL TARTRATE 5 MG/5 ML VIAL IVPUSH SCH (09:00)
[2018-03-06] MEDS ORDERED: POTASSIUM PHOSPHATE 15 MM in SODIUM CHLORIDE 250 ML IVPB ONE (09:00)
--- NOTE | 2018-03-06 09:18 | PN ---
Progress Note (short form) - Note Progress Note: no fevers alert still with rectal tube cardizem drip Vital Signs Period Temp Pulse Resp BP Sys/Pham Pulse Ox Last 24 Hr 32 F-99.8 F 75-109 27-38 126-158/66-90 98-100 +NGT cor-rrr lungs decreased bs at bases abd soft,no distention ext no edema CBC, BMP 03/06/18 05:30 03/06/18 05:30 Microbiology 02/28/18 20:25 Blood - Peripheral Venous Blood Culture - Final NO GROWTH AFTER 5 DAYS INCUBATION 02/28/18 20:25 Blood - Peripheral Venous Blood Culture - Final NO GROWTH AFTER 5 DAYS INCUBATION 03/03/18 06:00 Stool Clostridium difficile Antigen (AMY) - Final 03/03/18 06:00 Stool Clostridium difficile Toxin Assay - Final 03/01/18 20:30 Nares - Mrsa Screen - Right MRSA Screen - Final NO MRSA ISOLATED 03/01/18 20:30 Nares - Mrsa Screen - Left MRSA Screen - Final NO MRSA ISOLATED 02/28/18 22:53 Urine - Urine Clean Catch Urine Culture - Final NO GROWTH OBTAINED 03/01/18 11:20 Urine For Antigen Detection Legionella Antigen - Final 03/01/18 11:20 Urine For Antigen Detection Streptococcus pneumoniae Antigen (M - Final 02/28/18 23:30 Nasopharyngeal Swab Influenza Types A,B Antigen - Final 02/28/18 23:30 Nasopharyngeal Swab - Final abdominal xray pending cxray-increased effusion/atelectasis left base Current Medications Acetaminophen (Tylenol -) 650 mg PO Q6H PRN PRN Reason: FEVER Last Admin: 03/03/18 17:27 Dose: 650 mg Albuterol/Ipratropium (Duoneb -) 1 amp NEB RQID [facility] Last Admin: 03/06/18 07:35 Dose: 1 amp Aspirin (Asa -) 81 mg PO DAILY [facility] Last Admin: 03/05/18 10:26 Dose: 81 mg Atorvastatin Calcium (Lipitor -) 40 mg PO HS [facility] Last Admin: 03/05/18 23:20 Dose: Not Given Clotrimazole (Clotrimazole) 1 applic TP BID [facility] Last Admin: 03/05/18 23:10 Dose: 1 applic Docusate Sodium (Colace -) 200 mg PO DAILY [facility] Last Admin: 03/05/18 10:26 Dose: Not Given Enoxaparin Sodium (Lovenox -) 100 mg SQ BID [facility] Last Admin: 03/05/18 21:13 Dose: 100 mg Escitalopram Oxalate (Lexapro -) 10 mg PO DAILY [facility] Last Admin: 03/05/18 09:33 Dose: 10 mg Gabapentin (Neurontin -) 300 mg PO TID [facility] Last Admin: 03/06/18 06:44 Dose: Not Given Piperacillin Sod/Tazobactam (Sod 4.5 gm/ Dextrose) 100 mls @ 200 mls/hr IVPB Q8H-IV [facility]; Protocol Last Admin: 03/06/18 02:33 Dose: 200 mls/hr Potassium Chloride 20 meq/ (Sodium Chloride) 1,010 mls @ 100 mls/hr IVPB ASDIR [facility] Last Admin: 03/05/18 16:30 Dose: Not Given Diltiazem HCl 125 mg/ Dextrose 125 mls @ 5 mls/hr IVPB TITR [facility]; Protocol Last Admin: 03/05/18 17:50 Dose: 6 mg/hr, 6 mls/hr Famotidine/Sodium Chloride (Pepcid 20 Mg Premixed Ivpb -) 20 mg in 50 mls @ 100 mls/hr IVPB BID [facility] Last Admin: 03/05/18 21:18 Dose: 100 mls/hr Potassium Phosphate 15 mm/ (Sodium Chloride) 255 mls @ 63.75 mls/hr IVPB ONCE ONE Stop: 03/06/18 12:59 Insulin Aspart (Novolog Vial Sliding Scale -) 1 vial SQ ACHS [facility]; Protocol Last Admin: 03/06/18 06:44 Dose: Not Given Insulin Detemir (Levemir Vial) 20 units SQ HS [facility] Last Admin: 03/05/18 21:19 Dose: Not Given Lisinopril (Prinivil) 30 mg PO DAILY [facility] Last Admin: 03/05/18 09:33 Dose: 30 mg Methyl Salicylate (Felix-Seaman -) 1 applic TP Q8H PRN PRN Reason: BODY ACHES Metoprolol Tartrate (Lopressor Injection -) 5 mg IVPUSH Q6H-IV [facility] Multi-Ingredient Ointment (Zinc Oxide) 1 applic TP BID [facility] Last Admin: 03/05/18 21:12 Dose: 1 applic Senna (Senna -) 2 tab PO HS [facility] Last Admin: 03/05/18 23:20 Dose: Not Given a/p RLL pneumonia abdominal distention/volvulus- improved with rectal tube continue zosyn day #6 rapid afib- remains on cardizem drip f/u GI and surgery chart reviewed Problem List - Problems (1) Sepsis Code(s): A41.9 - SEPSIS, UNSPECIFIED ORGANISM Qualifiers: Sepsis type: sepsis due to unspecified organism Qualified Code(s): A41.9 - Sepsis, unspecified organism (2) Pneumonia Code(s): J18.9 - PNEUMONIA, UNSPECIFIED ORGANISM (3) Hypoxemia Code(s): R09.02 - HYPOXEMIA (4) COPD exacerbation Code(s): J44.1 - CHRONIC OBSTRUCTIVE PULMONARY DISEASE W (ACUTE) EXACERBATION (5) Rapid atrial fibrillation Code(s): I48.91 - UNSPECIFIED ATRIAL FIBRILLATION (6) Elevated troponin Code(s): R74.8 - ABNORMAL LEVELS OF OTHER SERUM ENZYMES (7) Prolonged Q-T interval on ECG Code(s): R94.31 - ABNORMAL ELECTROCARDIOGRAM [ECG] [EKG]
[2018-03-06] MEDS: ASPIRIN 81 MG CHEWABLE TABLETS PO SCH (09:43)
[2018-03-06] MEDS: DOCUSATE SODIUM 100 MG CAPSULE (FP) PO SCH (09:44)
[2018-03-06] MEDS: ESCITALOPRAM OXALATE 10 MG TABLET (FP) PO SCH (09:44)
[2018-03-06] MEDS: LISINOPRIL 10 MG TABLET (FP) PO SCH (10:00)
[2018-03-06] MEDS: FAMOTIDINE 20 MG/50 ML IVPB 20 MG/50 ML MG IVPB SCH ×2 (10:01→21:54)
[2018-03-06] MEDS: ENOXAPARIN NA (PORCINE) 100 MG/1 ML DISP.SYRIN SQ SCH ×2 (10:02→21:54)
[2018-03-06] MEDS ORDERED: PT OWN MED DRAWER 7, Y5N ONE ×2 (10:02→21:37)
--- NOTE | 2018-03-06 10:31 | PN ---
Progress Note (short form) - Note Progress Note: pt seen/ examined in icu all f/u noted/ appreciated. alert/ awake denies pain. on high flow oxygen HR better controlled ngt + had pulled yesterday not started on feeds yet-- today Vital Signs Temp 98.6 F 03/06/18 10:00 Pulse 98 H 03/06/18 10:00 Resp 29 H 03/06/18 10:00 BP 144/92 03/06/18 10:00 Pulse Ox 98 03/06/18 08:39 Intake & Output 03/05/18 03/05/18 03/06/18 11:59 23:59 11:59 Intake Total 1050 375.6 148 Output Total 600 1700 200 Balance 450 -1324.4 -52 Weight 222 lb 6.4 oz 219 lb 5.759 oz Intake: IV 800 85.6 48 1/2 Normal Saline 1,000 800 ml @ 100 mls/hr IVPB ASDIR FLORIN with KCl - 20 Meq Rx#:[id number] Cardizem Injection - 125 85.6 48 mg In D5w - 100 ml @ 5 MG /HR 5 mls/hr IVPB TITR FLORIN Rx#:[id number] IVPB 250 250 100 Tube Irrigant 40 0 Output: Urine 600 1700 200 Davis 600 1700 200 Other: Voiding Method Indwelling Catheter Indwelling Catheter Indwelling Catheter Bowel Movement No Yes: small, liquid around rectal tube Weight Measurement Method Built in [facility] Active Medications Acetaminophen (Tylenol -) 650 mg PO Q6H PRN PRN Reason: FEVER Last Admin: 03/03/18 17:27 Dose: 650 mg Albuterol/Ipratropium (Duoneb -) 1 amp NEB RQID [facility] Last Admin: 03/06/18 07:35 Dose: 1 amp Aspirin (Asa -) 81 mg PO DAILY [facility] Last Admin: 03/06/18 09:43 Dose: 81 mg Atorvastatin Calcium (Lipitor -) 40 mg PO HS [facility] Last Admin: 03/05/18 23:20 Dose: Not Given Clotrimazole (Clotrimazole) 1 applic TP BID [facility] Last Admin: 03/05/18 23:10 Dose: 1 applic Docusate Sodium (Colace -) 200 mg PO DAILY [facility] Last Admin: 03/06/18 09:44 Dose: Not Given Enoxaparin Sodium (Lovenox -) 100 mg SQ BID [facility] Last Admin: 03/06/18 10:02 Dose: 100 mg Escitalopram Oxalate (Lexapro -) 10 mg PO DAILY [facility] Last Admin: 03/06/18 09:44 Dose: 10 mg Gabapentin (Neurontin -) 300 mg PO TID [facility] Last Admin: 03/06/18 06:44 Dose: Not Given Piperacillin Sod/Tazobactam (Sod 4.5 gm/ Dextrose) 100 mls @ 200 mls/hr IVPB Q8H-IV [facility]; Protocol Last Admin: 03/06/18 09:50 Dose: 200 mls/hr Potassium Chloride 20 meq/ (Sodium Chloride) 1,010 mls @ 100 mls/hr IVPB ASDIR [facility] Last Admin: 03/05/18 16:30 Dose: Not Given Diltiazem HCl 125 mg/ Dextrose 125 mls @ 5 mls/hr IVPB TITR [facility]; Protocol Last Admin: 03/05/18 17:50 Dose: 6 mg/hr, 6 mls/hr Famotidine/Sodium Chloride (Pepcid 20 Mg Premixed Ivpb -) 20 mg in 50 mls @ 100 mls/hr IVPB BID [facility] Last Admin: 03/06/18 10:01 Dose: 100 mls/hr Potassium Phosphate 15 mm/ (Sodium Chloride) 255 mls @ 63.75 mls/hr IVPB ONCE ONE Stop: 03/06/18 12:59 Last Admin: 03/06/18 09:39 Dose: 63.75 mls/hr Insulin Aspart (Novolog Vial Sliding Scale -) 1 vial SQ ACHS [facility]; Protocol Last Admin: 03/06/18 06:44 Dose: Not Given Insulin Detemir (Levemir Vial) 20 units SQ HS [facility] Last Admin: 03/05/18 21:19 Dose: Not Given Lisinopril (Prinivil) 30 mg PO DAILY [facility] Last Admin: 03/06/18 10:00 Dose: 30 mg Methyl Salicylate (Felix-Seaman -) 1 applic TP Q8H PRN PRN Reason: BODY ACHES Metoprolol Tartrate (Lopressor Injection -) 5 mg IVPUSH Q6H-IV [facility] Last Admin: 03/06/18 09:41 Dose: 5 mg Multi-Ingredient Ointment (Zinc Oxide) 1 applic TP BID [facility] Last Admin: 03/05/18 21:12 Dose: 1 applic Senna (Senna -) 2 tab PO HS [facility] Last Admin: 03/05/18 23:20 Dose: Not Given CBC, BMP 03/06/18 05:30 03/06/18 05:30 Microbiology 02/28/18 20:25 Blood Culture - Final Blood - Peripheral Venous NO GROWTH AFTER 5 DAYS INCUBATION 02/28/18 20:25 Blood Culture - Final Blood - Peripheral Venous NO GROWTH AFTER 5 DAYS INCUBATION Physical Exam Constitutional: Yes:alert / awake. ngt + Neck: Yes: Supple. no jvd Cardiovascular: Yes: Irregular Respiratory: Yes: Regular, Diminished Gastrointestinal: Yes: soft/ non tender Edema: No. Davis / rectal tube + a/p volvulus pneumonia fever rapid afib-- better Uncontrolled diabetes--better electrolyte imbalance Better continue present care abx monitor labs/ lytes surgery/ gi on case-- start on feeding / po meds when cleared by gi / surgery-- anticipate today change cardizem drip to po continue close monitoring will follow discussed with nursing staff also Problem List - Problems (1) Demand ischemia Code(s): I24.8 - OTHER FORMS OF ACUTE ISCHEMIC HEART DISEASE (2) Elevated troponin Code(s): R74.8 - ABNORMAL LEVELS OF OTHER SERUM ENZYMES (3) Hypokalemia Code(s): E87.6 - HYPOKALEMIA (4) Pneumonia Code(s): J18.9 - PNEUMONIA, UNSPECIFIED ORGANISM (5) Rapid atrial fibrillation Code(s): I48.91 - UNSPECIFIED ATRIAL FIBRILLATION (6) Volvulus of descending colon Code(s): K56.2 - VOLVULUS (7) Diabetes Code(s): E11.9 - TYPE 2 DIABETES MELLITUS WITHOUT COMPLICATIONS (8) Fecal retention Code(s): K59.00 - CONSTIPATION, UNSPECIFIED (9) H/O: CVA (cerebrovascular accident) Code(s): Z86.73 - PRSNL HX OF TIA (TIA), AND CEREB INFRC W/O RESID DEFICITS
--- NOTE | 2018-03-06 10:35 | PN ---
Progress Note, Physician History of Present Illness: Remains on HFO2, SR with PAC/PVC on Cardizem gtt, abd less distended. - Current Medication List Current Medications: Active Medications Acetaminophen (Tylenol -) 650 mg PO Q6H PRN PRN Reason: FEVER Last Admin: 03/03/18 17:27 Dose: 650 mg Albuterol/Ipratropium (Duoneb -) 1 amp NEB RQID [facility] Last Admin: 03/06/18 07:35 Dose: 1 amp Aspirin (Asa -) 81 mg PO DAILY [facility] Last Admin: 03/06/18 09:43 Dose: 81 mg Atorvastatin Calcium (Lipitor -) 40 mg PO HS [facility] Last Admin: 03/05/18 23:20 Dose: Not Given Clotrimazole (Clotrimazole) 1 applic TP BID [facility] Last Admin: 03/05/18 23:10 Dose: 1 applic Docusate Sodium (Colace -) 200 mg PO DAILY [facility] Last Admin: 03/06/18 09:44 Dose: Not Given Enoxaparin Sodium (Lovenox -) 100 mg SQ BID [facility] Last Admin: 03/06/18 10:02 Dose: 100 mg Escitalopram Oxalate (Lexapro -) 10 mg PO DAILY [facility] Last Admin: 03/06/18 09:44 Dose: 10 mg Gabapentin (Neurontin -) 300 mg PO TID [facility] Last Admin: 03/06/18 06:44 Dose: Not Given Piperacillin Sod/Tazobactam (Sod 4.5 gm/ Dextrose) 100 mls @ 200 mls/hr IVPB Q8H-IV [facility]; Protocol Last Admin: 03/06/18 09:50 Dose: 200 mls/hr Potassium Chloride 20 meq/ (Sodium Chloride) 1,010 mls @ 100 mls/hr IVPB ASDIR [facility] Last Admin: 03/05/18 16:30 Dose: Not Given Diltiazem HCl 125 mg/ Dextrose 125 mls @ 5 mls/hr IVPB TITR [facility]; Protocol Last Admin: 03/05/18 17:50 Dose: 6 mg/hr, 6 mls/hr Famotidine/Sodium Chloride (Pepcid 20 Mg Premixed Ivpb -) 20 mg in 50 mls @ 100 mls/hr IVPB BID [facility] Last Admin: 03/06/18 10:01 Dose: 100 mls/hr Potassium Phosphate 15 mm/ (Sodium Chloride) 255 mls @ 63.75 mls/hr IVPB ONCE ONE Stop: 03/06/18 12:59 Last Admin: 03/06/18 09:39 Dose: 63.75 mls/hr Insulin Aspart (Novolog Vial Sliding Scale -) 1 vial SQ [facility]; Protocol Last Admin: 03/06/18 06:44 Dose: Not Given Insulin Detemir (Levemir Vial) 20 units SQ [facility] Last Admin: 03/05/18 21:19 Dose: Not Given Lisinopril (Prinivil) 30 mg PO DAILY [facility] Last Admin: 03/06/18 10:00 Dose: 30 mg Methyl Salicylate (Felix-Seaman -) 1 applic TP Q8H PRN PRN Reason: BODY ACHES Metoprolol Tartrate (Lopressor Injection -) 5 mg IVPUSH Q6H-IV [facility] Last Admin: 03/06/18 09:41 Dose: 5 mg Multi-Ingredient Ointment (Zinc Oxide) 1 applic TP BID [facility] Last Admin: 03/05/18 21:12 Dose: 1 applic Senna (Senna -) 2 tab PO [facility] Last Admin: 03/05/18 23:20 Dose: Not Given - Objective Vital Signs: Vital Signs Temperature 98.6 F 03/06/18 10:00 Pulse Rate 98 H 03/06/18 10:00 Respiratory Rate 29 H 03/06/18 10:00 Blood Pressure 144/92 03/06/18 10:00 O2 Sat by Pulse Oximetry (%) 98 03/06/18 08:39 Constitutional: Yes: No Distress, Calm, Thin Neck: Yes: Supple Cardiovascular: Yes: Regular Rate and Rhythm Respiratory: Yes: Regular, On Nasal O2, Other (HFO2) Gastrointestinal: Yes: Soft, Hypoactive Bowel Sounds, Other (Less distended) Edema: No Labs: CBC, BMP 03/06/18 05:30 03/06/18 05:30 INR, PTT INR 1.18 (0.83-1.09) H 02/28/18 20:06 - ....Imaging Chest X-ray: Report Reviewed (Mild congestion) Problem List - Problems (1) Elevated troponin Code(s): R74.8 - ABNORMAL LEVELS OF OTHER SERUM ENZYMES (2) Rapid atrial fibrillation Code(s): I48.91 - UNSPECIFIED ATRIAL FIBRILLATION (3) Diastolic dysfunction Code(s): I51.9 - HEART DISEASE, UNSPECIFIED (4) H/O: CVA (cerebrovascular accident) Code(s): Z86.73 - PRSNL HX OF TIA (TIA), AND CEREB INFRC W/O RESID DEFICITS (5) Hyperlipidemia Code(s): E78.5 - HYPERLIPIDEMIA, UNSPECIFIED Qualifiers: Hyperlipidemia type: pure hypercholesterolemia Qualified Code(s): E78.00 - Pure hypercholesterolemia, unspecified; E78.0 - Pure hypercholesterolemia (6) Hypertension Code(s): I10 - ESSENTIAL (PRIMARY) HYPERTENSION Qualifiers: Hypertension type: essential hypertension Qualified Code(s): I10 - Essential (primary) hypertension (7) Pneumonia Code(s): J18.9 - PNEUMONIA, UNSPECIFIED ORGANISM Qualifiers: Pneumonia type: due to unspecified organism Laterality: right Lung location: lower lobe of lung Qualified Code(s): J18.1 - Lobar pneumonia, unspecified organism (8) Toxic metabolic encephalopathy Code(s): G92 - TOXIC ENCEPHALOPATHY (9) Demand ischemia Code(s): I24.8 - OTHER FORMS OF ACUTE ISCHEMIC HEART DISEASE (10) Hypokalemia Code(s): E87.6 - HYPOKALEMIA (11) Premature ventricular contraction Code(s): I49.3 - VENTRICULAR PREMATURE DEPOLARIZATION (12) Volvulus of descending colon Code(s): K56.2 - VOLVULUS Assessment/Plan 12/20/2017 Echo: Normal LV size and fxn, tr MR, TR 1. RLL aspiration PNA - HCAP 2. Intermittent sigmoid volvulus post rectal tube decompression 3. LV Diastolic Dysfunction 4. Demand ischemia 5. Toxic-metabolic encephelopathy 6. 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 PAF with improved rate-control 8. PVC, PAC 9. Hypernatremia resolved P:1. Empiric abx course to cover possible aspiration pneumonia-HCAP, free H20 repletion, replete K 2. Wean off Cardizem gtt and start Lopressor 25 bid for rate-control, lisinopril 30 qd, ASA 81 qd, Lipitor 40 qd 3. Lovenox 100 bid pending likely procedure 4. Inhaled bronchodilators standing and PRN,O2 to keep SpO2 >90% 5. Enteral feeds, transition to oral meds, await definitive repair once pulmonary status improves 6. DVT and GI prophylaxis
[2018-03-06] MEDS: METOPROLOL TARTRATE 25 MG TABLET (FP) NGT SCH ×2 (12:00→23:23)
[2018-03-06] MEDS: ZINC OXIDE 20% TOPICAL OINTMENT 30 GM TUBE TP SCH ×2 (12:01→23:31)
[2018-03-06] MEDS: CLOTRIMAZOLE 1% 10 ML TOPICAL SOLUTION TP SCH ×2 (12:01→22:50)
[2018-03-06] MEDS ORDERED: LISINOPRIL 10 MG TABLET (FP) NGT SCH (12:02)
[2018-03-06] MEDS ORDERED: ATORVASTATIN CA 40 MG TABLET (FP) NGT SCH (12:02)
--- NOTE | 2018-03-06 13:14 | PN ---
Teaching Attending Note Name of Resident: Silvia Ingram ATTENDING PHYSICIAN STATEMENT I saw and evaluated the patient. I reviewed the resident's note and discussed the case with the resident. I agree with the resident's findings and plan as documented. SUBJECTIVE: Pt seen and examined in the ICU. Remains on HFOT 40L/min, 45% Fio2. Denies shortness of breath or abdominal pain. OBJECTIVE: Vital Signs Period Temp Pulse Resp BP Sys/Pham Pulse Ox Last 24 Hr 32 F-99.8 F 75-109 25-38 126-158/66-92 98-100 Intake & Output 03/03/18 03/04/18 03/05/18 03/06/18 23:59 23:59 23:59 23:59 Intake Total 2047.6 2615 1425.6 148 Output Total 2600 2100 2300 200 Balance -552.4 515 -874.4 -52 Weight 100.834 kg 101.151 kg 100.879 kg 99.5 kg Gen: mildly tachypneic with occasional stridor Heart: tachycardic Lung: scattered rhonchi Abd: soft, nontender Ext: no edema CBC, BMP 03/06/18 05:30 03/06/18 05:30 Active Medications Acetaminophen (Tylenol -) 650 mg PO Q6H PRN PRN Reason: FEVER Last Admin: 03/03/18 17:27 Dose: 650 mg Albuterol/Ipratropium (Duoneb -) 1 amp NEB RQID [facility] Last Admin: 03/06/18 11:11 Dose: 1 amp Aspirin (Asa -) 81 mg PO DAILY [facility] Last Admin: 03/06/18 09:43 Dose: 81 mg Atorvastatin Calcium (Lipitor -) 40 mg NGT [facility] Clotrimazole (Clotrimazole) 1 applic TP BID [facility] Last Admin: 03/06/18 12:01 Dose: Not Given Docusate Sodium (Colace -) 200 mg PO DAILY [facility] Last Admin: 03/06/18 09:44 Dose: Not Given Enoxaparin Sodium (Lovenox -) 100 mg SQ BID [facility] Last Admin: 03/06/18 10:02 Dose: 100 mg Escitalopram Oxalate (Lexapro -) 10 mg PO DAILY [facility] Last Admin: 03/06/18 09:44 Dose: 10 mg Gabapentin (Neurontin -) 300 mg PO TID [facility] Last Admin: 03/06/18 06:44 Dose: Not Given Piperacillin Sod/Tazobactam (Sod 4.5 gm/ Dextrose) 100 mls @ 200 mls/hr IVPB Q8H-IV [facility]; Protocol Last Admin: 03/06/18 09:50 Dose: 200 mls/hr Famotidine/Sodium Chloride (Pepcid 20 Mg Premixed Ivpb -) 20 mg in 50 mls @ 100 mls/hr IVPB BID [facility] Last Admin: 03/06/18 10:01 Dose: 100 mls/hr Insulin Aspart (Novolog Vial Sliding Scale -) 1 vial SQ ACHS [facility]; Protocol Last Admin: 03/06/18 12:25 Dose: 2 units Insulin Detemir (Levemir Vial) 20 units SQ [facility] Last Admin: 03/05/18 21:19 Dose: Not Given Lisinopril (Prinivil) 30 mg NGT DAILY [facility] Methyl Salicylate (Felix-Seaman -) 1 applic TP Q8H PRN PRN Reason: BODY ACHES Metoprolol Tartrate (Lopressor -) 25 mg NGT BID [facility] Last Admin: 03/06/18 12:00 Dose: Not Given Multi-Ingredient Ointment (Zinc Oxide) 1 applic TP BID [facility] Last Admin: 03/06/18 12:01 Dose: Not Given Senna (Senna -) 2 tab PO [facility] Last Admin: 03/05/18 23:20 Dose: Not Given ASSESSMENT AND PLAN: Acute Hypoxic Respiratory Failure Pneumonia likely Aspiration Sigmoid Volvulus s/p Rectal Tube Decompression Sepsis Lactic Acidosis LV Diastolic Dysfunction +Troponins likely Demand Ischemia Paroxysmal Atrial Fibrillation h/o CVA - continue antibiotics - taper flow rate, FiO2 to keep SpO2 >90% - can transition to nasal cannula - aspiration precautions - rectal tube per GI - rate control - continue anticoagulation - DVT prophylaxis - continue ICU monitoring critical care time spent in reviewing chart, evaluating patient and formulating plan 35 min
--- NOTE | 2018-03-06 16:29 | PN ---
Physical Exam: SUBJECTIVE: Patient seen and examined at bedside. Patient was awake and alert this morning, on high flow nasal oxygen 40 lpm/45%, saturating >90%, tube feeding started. Plan to start patient on home PO medications but patient pulled out NG tube 3 times today despite restraints. Still on cardizem ggt. Patient denies abdominal pain. OBJECTIVE: Vital Signs Period Temp Pulse Resp BP Sys/Pham Pulse Ox Last 24 Hr 32 F-99.6 F 75-109 22-30 126-158/66-92 98-100 GENERAL: Patient is awake, alert, and fully oriented, in moderate distress, on high flow nasal oxygen EYES: PERRLA, EOMI, sclera anicteric, conjunctiva clear. LUNGS: +scattered rhonchi bilaterally HEART: Regular rate, irregular rhythm, without murmur, rub or gallop. ABDOMEN: Soft, nontender, nondistended, normoactive bowel sounds. UPPER EXTREMITIES: 2+ pulses, warm, well-perfused. No peripheral edema. LOWER EXTREMITIES: 2+ pulses, warm, well-perfused. +1 peripheral edema SKIN: Warm, dry, normal turgor, no rashes or lesions noted. Laboratory Results - last 24 hr 03/05/18 03/05/18 03/06/18 16:38 21:11 05:30 WBC 9.0 RBC 4.11 Hgb 12.9 Hct 37.7 MCV 91.8 MCH 31.3 MCHC 34.1 RDW 14.2 Plt Count 160 D MPV 9.7 Sodium Potassium Chloride Carbon Dioxide Anion Gap BUN Creatinine Creat Clearance w eGFR POC Glucometer 162.08714 221.03800 Random Glucose Calcium Phosphorus Magnesium 03/06/18 03/06/18 05:30 06:42 WBC RBC Hgb Hct MCV MCH MCHC RDW Plt Count MPV Sodium 137 Potassium 3.5 Chloride 100 Carbon Dioxide 26 Anion Gap 11 BUN 8 Creatinine 0.6 Creat Clearance w eGFR > 60 POC Glucometer [phone] Random Glucose 182 H Calcium 7.6 L Phosphorus 2.1 L Magnesium 2.2 Active Medications Generic Name Dose Route Start Last Admin Trade Name Freq PRN Reason Stop Dose Admin Acetaminophen 650 mg 03/01/18 01:29 03/03/18 17:27 Tylenol - PO 650 mg Q6H PRN Administration FEVER Albuterol/Ipratropium 1 amp 03/01/18 08:00 03/06/18 16:19 Duoneb - NEB 1 amp RQID [facility] Administration Aspirin 81 mg 03/01/18 10:00 03/06/18 09:43 Asa - PO 81 mg DAILY [facility] Administration Atorvastatin Calcium 40 mg 03/06/18 12:02 Lipitor - NGT HS [facility] Clotrimazole 1 applic 03/01/18 10:03 03/06/18 12:01 Clotrimazole TP Not Given BID [facility] Docusate Sodium 200 mg 03/01/18 10:00 03/06/18 09:44 Colace - PO Not Given DAILY [facility] Enoxaparin Sodium 100 mg 03/01/18 13:30 03/06/18 10:02 Lovenox - SQ 100 mg BID [facility] Administration Escitalopram Oxalate 10 mg 03/01/18 10:00 03/06/18 09:44 Lexapro - PO 10 mg DAILY [facility] Administration Gabapentin 300 mg 03/01/18 06:00 03/06/18 06:44 Neurontin - PO Not Given TID [facility] Piperacillin Sod/Tazobactam 100 mls @ 200 mls/hr 03/01/18 10:00 03/06/18 09: 50 Sod 4.5 gm/ Dextrose IVPB 200 mls/hr Q8H-IV [facility] Administration Protocol Famotidine/Sodium Chloride 20 mg in 50 mls @ 100 mls/hr 03/04/18 22:00 10:01 Pepcid 20 Mg Premixed Ivpb - IVPB 100 mls/hr BID [facility] Administration Insulin Aspart 1 vial 03/02/18 11:00 03/06/18 12:25 Novolog Vial Sliding Scale - SQ 2 units ACHS [facility] Administration Protocol Insulin Detemir 20 units 03/02/18 09:58 03/05/18 21:19 Levemir Vial SQ Not Given HS [facility] Lisinopril 30 mg 03/06/18 12:02 Prinivil NGT DAILY [facility] Methyl Salicylate 1 applic 03/01/18 01:30 Felix-Seaman - TP Q8H PRN BODY ACHES Metoprolol Tartrate 25 mg 03/06/18 11:00 03/06/18 12:00 Lopressor - NGT Not Given BID [facility] Multi-Ingredient Ointment 1 applic 03/01/18 10:00 03/06/18 12:01 Zinc Oxide TP Not Given BID [facility] Senna 2 tab 03/01/18 22:00 03/05/18 23:20 Senna - PO Not Given HS [facility] ASSESSMENT/PLAN: Patient is a 77 year old male with past medical history HTN, HLD, DM, COPD, diastolic CHF, Ischemic CVA (with residual right-sided weakness), and chronic dysphagia (previously on trach), was sent from the [facility] after a 2-day history of fever and lethargy. #Pulmonology 1)Acute Hypoxic Respiratory Failure likely 2/2 Pneumonia, COPD -On high flow nasal oxygen -FiO2 decreased to 30%,remained satn >90% -IV Zosyn 4.5gm q8h day 6 -IV fluids -Blood Cultures, influenza swab, urine legionalla and pneumococcal -- negative 2)COPD -Duonebs QID #Gastroenterology 1)Sigmoid colon volvulus -CT abdomen and pelvis: Markedly distended sigmoid colon that is suspicious for an intermittent volvulus. Fecal retention proximal to the distended sigmoid colon. -GI (Dr. Alves) consulted. Recommendations appreciated. -Rectal tube inserted last Tuesday -Removed 1 rectal tube yesterday, [address] -Flush rectal tube with 60cc sterile water twice per shift -correct electrolyte abnormalities. -Can resume tube feeds. -Miralax 17g TID -Surgery (Dr. Sharif) consulted. -Would not recommend immediate surgical intervention. -Once improved he may be a candidate for elective sigmoid colectomy. -Can be started on tube feeding for now. #Cardiology 1)Atrial Fibrillation -Cardiology (Dr. Beltrán) consulted. Recommendations appreciated. -Titrate down cardizem drip -Start home medications. -Lisinopril 30mg daily -Lopressor 25mg BID 2)Diastolic CHF -Hold home lasix -Continue Lovenox 100mg sq bid 3)Hypertension -will restart home medications, Lisinopril and Lopressor -monitor BP 4)Hyperlipidemia -Continue Atorvastatin 40mg PO HS 5)Troponinemia, resolved -peaked at 0.98, now 0.56 -likely 2/2 demand ischemia 6)QTc prolongation: 810ms -Avoid agents that increase QTc #Infectious Disease 1)Sepsis likely 2/2 Pneumonia -CXR: RLL consolidation -ID (Dr. Peters) consulted. Recommendations appreciated. -Continue Zosyn 4.5 gm q8h -Vancomycin discontinued. -Blood cx, urine cx, influenza swab, urine legionella, pneumococcal, c.diff - negative #Nephrology 1)Hypokalemia: K 3.5 -Potassium phosphate given -repeat bmp -will continue to monitor and replete PRN 2)Hypophosphatemia: 2.1 -will replete PRN -will continue to monitor #Endocrinology 1)DM -Insulin Levemir 20 units sq hs -Insulin sliding scale ACHS -BGM ACHS #Neurology 1)Hx of Ischemic CVA (with residual right-sided weakness) -continue ASA and atorvastatin #FEN -Not on standing fluids -hypoK, hypoPhos, replete PRN -routine bmp monitoring -Tube feeding #Prophylaxis 1)DVT - on Lovenox 100mg sq BID 2)GI - Pepcid 25mg BID #Disposition -Transferred to ICU for closer monitoring Dispo: We will continue to follow the patient. Thank you for this consultative opportunity. Visit type - Emergency Visit Emergency Visit: Yes ED Registration Date: 02/28/18 Care time: The patient presented to the Emergency Department on the above date and was hospitalized for further evaluation of their emergent condition. - New Patient This patient is new to me today: Yes Date on this admission: 03/06/18 - Critical Care Critical Care patient: Yes Total Critical Care Time (in minutes): 40 Critical Care Statement: The care of this patient involved high complexity decision making to prevent further life threatening deterioration of the patient 's condition and/or to evaluate & treat vital organ system(s) failure or risk of failure.
--- NOTE | 2018-03-06 16:37 | PN ---
GI Progress Note Subjective: No acute events Granddaughter present at bedside - Objective Vital Signs: Vital Signs Temperature 98.6 F 03/06/18 14:05 Pulse Rate 108 H 03/06/18 14:00 Respiratory Rate 22 H 03/06/18 14:00 Blood Pressure 138/78 03/06/18 14:00 O2 Sat by Pulse Oximetry (%) 98 03/06/18 08:39 Constitutional: Calm Eyes: No: Sclera Icterus Respiratory: Yes: Diminished (at bases b/l) Gastrointestinal Inspection: No: Distention ...Auscultate: Yes: Normoactive Bowel Sounds ...Palpate: Yes: Soft. No: Tenderness ...Percussion: Yes: Tympanitic Labs: CBC, BMP 03/06/18 05:30 03/06/18 05:30 INR, PTT INR 1.18 (0.83-1.09) H 02/28/18 20:06 Hepatic Panel Total Bilirubin 1.4 mg/dL (0.2-1) H 03/05/18 05:30 AST 31 U/L (15-37) 03/05/18 05:30 ALT 19 U/L (13-61) 03/05/18 05:30 Alkaline Phosphatase 43 U/L (45-117) L 03/05/18 05:30 Albumin 2.5 g/dl (3.4-5.0) L 03/05/18 05:30 Problem List - Problems (1) Volvulus of sigmoid colon Assessment/Plan: Clinically remains improved X-Ray improved from yesterday after flushing Rectal tube in place OK to start tube feeds Added MiraLAX 17g TID Surgery following Code(s): K56.2 - VOLVULUS
[2018-03-06] MEDS: INSULIN (LEVEMIR) 100 UNITS/ML UNITS SQ SCH (21:55)
[2018-03-06] MEDS: POLYETHYLENE GLYCOL 3350 119 GM BTL PO SCH (23:24)
[2018-03-07] MEDS ORDERED: DEXTROSE 5%-WATER 100 ML IVPB ONE ×3 (00:18→15:50)
[2018-03-07] MEDS ORDERED: PIPERACILLIN/TAZOBACTAM 4.5 GM VIAL IVPB ONE ×3 (00:18→15:49)
[2018-03-07] MEDS ORDERED: METOPROLOL TARTRATE 5 MG/5 ML VIAL IVPUSH ONE (00:41)
[2018-03-07] MEDS: PIPERACILLIN/TAZOB 4.5 GM 4.5 GM in DEXTROSE 5%-WATER 100 ML IVPB SCH ×3 (01:38→17:13)
[2018-03-07 05:48] LABS: HEMATOCRIT 38.1 % (35.4-49); MCH 31.2 pg (25.7-33.7); MCHC 34.1 g/dl (32.0-35.9); MEAN CELL VOLUME 91.5 fl (80-96); MEAN PLT VOLUME 9.3 fl (7.5-11.1); PLATELET COUNT 211 K/MM3 (134-434); RBC 4.17 M/mm3 (4.00-5.60); RDW 14.6 % (11.9-15.9); WHITE BLOOD COUNT 8.2 K/mm3 (4.0-10.0)
[2018-03-07] MEDS: GABAPENTIN 300 MG CAPSULE (FP) PO SCH (06:17)
[2018-03-07] MEDS: POLYETHYLENE GLYCOL 3350 119 GM BTL PO SCH (06:18)
[2018-03-07] MEDS: INSULIN SLIDING SCALE (NOVOLOG) 1 VIAL SQ SCH ×4 (06:21→22:44)
--- NOTE | 2018-03-07 06:45 | PN ---
Progress Note (short form) - Note Progress Note: Chief Complaint: Events noted, notes reviewed, overall no change in status, sinus rhythm noted with frequent APC's History of Present Illness: Seen and examined in the ICU. Events noted, notes reviewed, overall no change in status, sinus rhythm noted with frequent APC's Echocardiography dated 12/20/2017 revealed normal LV size and function, trace MR and TR Medications: Current Medications Acetaminophen (Tylenol -) 650 mg PO Q6H PRN PRN Reason: FEVER Last Admin: 03/03/18 17:27 Dose: 650 mg Albuterol/Ipratropium (Duoneb -) 1 amp NEB RQID [facility] Last Admin: 03/06/18 21:00 Dose: 1 amp Aspirin (Asa -) 81 mg PO DAILY [facility] Last Admin: 03/06/18 09:43 Dose: 81 mg Atorvastatin Calcium (Lipitor -) 40 mg NGT HS [facility] Last Admin: 03/06/18 23:23 Dose: Not Given Clotrimazole (Clotrimazole) 1 applic TP BID [facility] Last Admin: 03/06/18 22:50 Dose: 1 applic Docusate Sodium (Colace -) 200 mg PO DAILY [facility] Last Admin: 03/06/18 09:44 Dose: Not Given Enoxaparin Sodium (Lovenox -) 100 mg SQ BID [facility] Last Admin: 03/06/18 21:54 Dose: 100 mg Escitalopram Oxalate (Lexapro -) 10 mg PO DAILY [facility] Last Admin: 03/06/18 09:44 Dose: 10 mg Gabapentin (Neurontin -) 300 mg PO TID [facility] Last Admin: 03/07/18 06:17 Dose: 300 mg Piperacillin Sod/Tazobactam (Sod 4.5 gm/ Dextrose) 100 mls @ 200 mls/hr IVPB Q8H-IV [facility]; Protocol Last Admin: 03/07/18 01:38 Dose: 200 mls/hr Famotidine/Sodium Chloride (Pepcid 20 Mg Premixed Ivpb -) 20 mg in 50 mls @ 100 mls/hr IVPB BID [facility] Last Admin: 03/06/18 21:54 Dose: 100 mls/hr Insulin Aspart (Novolog Vial Sliding Scale -) 1 vial SQ ACHS [facility]; Protocol Last Admin: 03/07/18 06:21 Dose: 2 units Insulin Detemir (Levemir Vial) 20 units SQ HS [facility] Last Admin: 03/06/18 21:55 Dose: Not Given Lisinopril (Prinivil) 30 mg NGT DAILY [facility] Methyl Salicylate (Felix-Seaman -) 1 applic TP Q8H PRN PRN Reason: BODY ACHES Metoprolol Tartrate (Lopressor -) 25 mg NGT BID [facility] Last Admin: 03/06/18 23:23 Dose: Not Given Multi-Ingredient Ointment (Zinc Oxide) 1 applic TP BID [facility] Last Admin: 03/06/18 23:31 Dose: Not Given Polyethylene Glycol (Miralax (For Daily Use) -) 17 gm PO TID [facility] Last Admin: 03/07/18 06:18 Dose: 17 gm Review of Systems - Review of Systems Unable to obtain Vital Signs: Last Vital Signs Temp Pulse Resp BP Pulse Ox 99.3 F 95 H 25 H 159/86 94 L 03/07/18 06:00 03/07/18 06:00 03/07/18 06:00 03/07/18 06:00 03/07/18 06:00 Intake & Output 03/04/18 03/05/18 03/06/18 03/07/18 23:59 23:59 23:59 23:59 Intake Total 2615 1425.6 752 240 Output Total 2100 2300 1750 600 Balance 515 -874.4 -998 -360 Weight 223 lb 222 lb 6.4 oz 219 lb 5.759 oz 220 lb 9.6 oz Neck: Supple Negative JVD No Bruit Respiratory: Diminished Breath Sounds at the Bases Bilateral Scattered Rhonchi Cardiovascular: S1 S2 Regularly Rate and Rhythm Ectopics Gastrointestinal: Soft Distended Benign Normal Bowel Sounds Ext: Edema Bilateral Labs: CBC, BMP 03/07/18 05:30 03/07/18 05:30 ABG Results ABG pH 7.47 (7.35-7.45) H 03/05/18 05:45 ABG pCO2 at Pt Temp 38.1 mmHg (35-45) 03/05/18 05:45 ABG pO2 at Pt Temp 61.3 mmHg (70-100) L D 03/05/18 05:45 ABG HCO3 27.7 meq/L (22-26) H 03/05/18 05:45 ABG O2 Sat (Measured) 90.2 % (90-98.9) 03/05/18 05:45 ABG O2 Content 18.9 % vol (15-22) 03/05/18 05:45 ABG Base Excess 4.4 meq/l (-2-2) H 03/05/18 05:45 Assessment/Plan ASSESSMENT: 1. Right lower lobe aspiration pneumonia, resolving 2. Intermittent sigmoid volvulus post rectal tube decompression 3. 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 Diastolic LV dysfunction with clinical class 0-I NYHA classification LV failure 5. Paroxysmal atrial fibrillation [id number] score 7 on Lovenox therapy 6. Toxic-metabolic encephelopathy, persistent 7. History of CVA with residual right-sided weakness 8. Resolved Hypernatremia PLAN: 1. Antibiotics as per the primary team 2. Continue Lopressor 4. Continue Lisinopril, and titrate dose as tolerated, hemodynamics permitting 4. Continue Lipitor 5. Continue Lovenox Anat Jameson Alcazar
[2018-03-07 07:34] LABS: ANION GAP 14 MMOL/L (8-16); BLOOD UREA NITROGEN 7 mg/dL (7-18); CALCIUM 7.8 mg/dL (8.5-10.1); CHLORIDE 99 mmol/L (98-107); CO2 26 mmol/L (21-32); CREATININE 0.5 mg/dL (0.55-1.3); GLUCOSE,RANDOM 167 mg/dL (74-106); MAGNESIUM 2.1 mg/dL (1.8-2.4); PHOSPHOROUS 1.8 mg/dL (2.5-4.9); POTASSIUM 3.5 mmol/L (3.5-5.1); SODIUM 139 mmol/L (136-145)
[2018-03-07] MEDS: ALBUTEROL SO4 2.5/IPRATROPIUM 0.5 INH SOL 3 ML VIAL.NEB. NEB SCH ×4 (07:40→21:30)
[2018-03-07] MEDS ORDERED: POTASSIUM CHLORIDE ORAL LIQUID 20 MEQ/15 ML PO ONE (08:00)
[2018-03-07] MEDS ORDERED: POTASSIUM PHOSPHATE 15 MM in SODIUM CHLORIDE 250 ML IVPB ONE (09:00)
[2018-03-07] MEDS ORDERED: PT OWN MED DRAWER 7, Y5N ONE ×2 (09:12→18:49)
[2018-03-07] MEDS ORDERED: DOCUSATE NA 100 MG/10 ML UNIT-DOSE CUPS PO SCH (09:21)
[2018-03-07] MEDS ORDERED: ASPIRIN 81 MG CHEWABLE TABLETS NGT SCH (09:23)
[2018-03-07] MEDS ORDERED: ESCITALOPRAM OXALATE 10 MG TABLET (FP) NGT SCH (09:23)
[2018-03-07] MEDS ORDERED: DOCUSATE NA 100 MG/10 ML UNIT-DOSE CUPS NGT SCH (09:23)
[2018-03-07] MEDS ORDERED: POLYETHYLENE GLYCOL 3350 119 GM BTL NGT SCH (09:23)
[2018-03-07] MEDS: FAMOTIDINE 20 MG/50 ML IVPB 20 MG/50 ML MG IVPB SCH ×2 (09:28→22:40)
[2018-03-07] MEDS: ENOXAPARIN NA (PORCINE) 100 MG/1 ML DISP.SYRIN SQ SCH ×2 (09:35→22:38)
[2018-03-07] MEDS: METOPROLOL TARTRATE 25 MG TABLET (FP) NGT SCH ×2 (09:35→22:37)
[2018-03-07] MEDS: CLOTRIMAZOLE 1% 10 ML TOPICAL SOLUTION TP SCH (09:41)
[2018-03-07] MEDS: ZINC OXIDE 20% TOPICAL OINTMENT 30 GM TUBE TP SCH ×2 (09:41→22:39)
--- NOTE | 2018-03-07 11:04 | PN ---
Progress Note, HOSPITAL LIBRARIAN - Note Progress Note: In ICU- Per ID- RLL pneumonia abdominal distention/volvulus- improved with rectal tube continue zosyn day #6 rapid afib- remains on cardizem drip Per EMR-03/06-Patient was awake and alert this morning, on high flow nasal oxygen 40 lpm/45%, saturating >90%, tube feeding started. Plan to start patient on home PO medications but patient pulled out NG tube 3 times today despite restraints Pt alert, verbal. Says he is hungry.NGT back in place. Good vocal quality. H/o dysphagia, coughed on nectar, downgraded to honey thick liquid, but then made NPO due to medical condition. Trial of 1/2 tsp applesauce, with delayed swallow onset with reduced laryngeal ROM and VOM. Reflexive forceful swallow reflex. He requeted suctioning which was performed by nursing. REC: Continue NGT feedings, as tolerated, until rectal tube removed. Then consider d/c NGT for MBS to r/o aspiration and possibly initiate PO trials.
--- NOTE | 2018-03-07 11:45 | PN ---
Progress Note (short form) - Note Progress Note: awake events noted pt examined in ICU alert responding to commands on NGT Vital Signs - 24 hr 03/06/18 03/06/18 03/06/18 12:00 14:00 14:05 Temperature 98.6 F Pulse Rate 91 H 91 H Respiratory 25 H 28 H Rate Blood Pressure 140/84 147/68 O2 Sat by Pulse Oximetry (%) 03/06/18 03/06/18 03/06/18 16:00 16:20 16:46 Temperature 99 F 99.2 F 99.2 F Pulse Rate 90 Respiratory 27 H Rate Blood Pressure 145/69 O2 Sat by Pulse Oximetry (%) 03/06/18 03/06/18 03/06/18 18:00 19:04 20:00 Temperature 99.2 F Pulse Rate 101 H 96 H Respiratory 27 H 20 Rate Blood Pressure 150/77 145/58 L O2 Sat by Pulse Oximetry (%) 03/06/18 03/06/18 03/07/18 21:00 22:00 00:00 Temperature 99.6 F Pulse Rate 86 90 Respiratory 25 H 25 H 25 H Rate Blood Pressure 156/66 150/69 O2 Sat by Pulse 96 Oximetry (%) 03/07/18 03/07/18 03/07/18 01:38 02:00 04:00 Temperature 99.5 F Pulse Rate 98 H 80 94 H Respiratory 23 H 24 H Rate Blood Pressure 150/69 152/89 151/70 O2 Sat by Pulse Oximetry (%) 03/07/18 03/07/18 03/07/18 06:00 08:00 08:45 Temperature 99.3 F 98.6 F Pulse Rate 95 H 96 H Respiratory 25 H 25 H Rate Blood Pressure 159/86 159/76 O2 Sat by Pulse 94 L Oximetry (%) 03/07/18 03/07/18 08:50 10:00 Temperature 99.4 F Pulse Rate 93 H 94 H Respiratory 25 H Rate Blood Pressure 149/83 O2 Sat by Pulse 96 Oximetry (%) Current Medications Generic Name Dose Route Start Last Admin Trade Name Freq PRN Reason Stop Dose Admin Acetaminophen 650 mg 03/01/18 01:29 03/03/18 17:27 Tylenol - PO 650 mg Q6H PRN Administration FEVER Albuterol/Ipratropium 1 amp 03/01/18 08:00 03/07/18 07:40 Duoneb - NEB 1 amp RQID FLORIN Administration Aspirin 81 mg 03/07/18 09:23 03/07/18 09:50 Asa - NGT 81 mg DAILY FLORIN Administration Atorvastatin Calcium 40 mg 03/06/18 12:02 03/06/18 23:23 Lipitor - NGT Not Given HS FLORIN Clotrimazole 1 applic 03/01/18 10:03 03/07/18 09:41 Clotrimazole TP Not Given BID [facility] Docusate Sodium 200 mg 03/07/18 09:23 03/07/18 09:50 Colace Liquid - NGT 200 mg DAILY FLORIN Administration Enoxaparin Sodium 100 mg 03/01/18 13:30 03/07/18 09:35 Lovenox - SQ 100 mg BID FLORIN Administration Escitalopram Oxalate 10 mg 03/07/18 09:23 03/07/18 09:50 Lexapro - NGT 10 mg DAILY FLORIN Administration Gabapentin 300 mg 03/07/18 14:00 Neurontin Oral Liquid - NGT TID FLORIN Piperacillin Sod/Tazobactam 100 mls @ 200 mls/hr 03/01/18 10:00 03/07/18 09: 28 Sod 4.5 gm/ Dextrose IVPB 200 mls/hr Q8H-IV [facility]ORIN Administration Protocol Famotidine/Sodium Chloride 20 mg in 50 mls @ 100 mls/hr 03/04/18 22:00 09:28 Pepcid 20 Mg Premixed Ivpb - IVPB 100 mls/hr BID FLORIN Administration Potassium Phosphate 15 mm/ 255 mls @ 63.75 mls/hr 03/07/18 09:00 Sodium Chloride IVPB 03/07/18 12:59 ONCE ONE 15 MM/4 HR Insulin Aspart 1 vial 03/02/18 11:00 03/07/18 06:21 Novolog Vial Sliding Scale - SQ 2 units ACHS FLORIN Administration Protocol Insulin Detemir 20 units 03/02/18 09:58 03/06/18 21:55 Levemir Vial SQ Not Given HS [facility] Lisinopril 30 mg 03/06/18 12:02 03/07/18 09:36 Prinivil NGT 30 mg DAILY [facility] Administration Methyl Salicylate 1 applic 03/01/18 01:30 Felix-Seaman - TP Q8H PRN BODY ACHES Metoprolol Tartrate 25 mg 03/06/18 11:00 03/07/18 09:35 Lopressor - NGT 25 mg BID FLORIN Administration Multi-Ingredient Ointment 1 applic 03/01/18 10:00 03/07/18 09:41 Zinc Oxide TP Not Given BID [facility] Polyethylene Glycol 17 gm 03/07/18 09:23 Miralax (For Daily Use) - NGT TID [facility] Laboratory Results - last 24 hr 03/07/18 03/07/18 05:30 05:30 WBC 8.2 RBC 4.17 Hgb 13.0 Hct 38.1 MCV 91.5 MCH 31.2 MCHC 34.1 RDW 14.6 Plt Count 211 D MPV 9.3 Sodium 139 Potassium 3.5 Chloride 99 Carbon Dioxide 26 Anion Gap 14 BUN 7 Creatinine 0.5 L Creat Clearance w eGFR > 60 Random Glucose 167 H Calcium 7.8 L Phosphorus 1.8 L Magnesium 2.1 S1 S2 irregular Lungs decreased, ronchi ABd- soft, NT, BS+ No edema Sepsis, pneumonia,volvulus, pneumonia RLL --on NG feedings -- swallow follow up -- off cardizem drip -- on iv antibiotics -- spoke with ICU attending -- rate is controlled with Lopressor Problem List - Problems (1) Demand ischemia Code(s): I24.8 - OTHER FORMS OF ACUTE ISCHEMIC HEART DISEASE (2) Elevated troponin Code(s): R74.8 - ABNORMAL LEVELS OF OTHER SERUM ENZYMES (3) Pneumonia Code(s): J18.9 - PNEUMONIA, UNSPECIFIED ORGANISM (4) Rapid atrial fibrillation Code(s): I48.91 - UNSPECIFIED ATRIAL FIBRILLATION (5) Sepsis Code(s): A41.9 - SEPSIS, UNSPECIFIED ORGANISM Qualifiers: Sepsis type: sepsis due to unspecified organism Qualified Code(s): A41.9 - Sepsis, unspecified organism
--- NOTE | 2018-03-07 12:08 | PN ---
Teaching Attending Note Name of Resident: Silvia Ingram ATTENDING PHYSICIAN STATEMENT I saw and evaluated the patient. I reviewed the resident's note and discussed the case with the resident. I agree with the resident's findings and plan as documented. SUBJECTIVE: Pt seen and examined in the ICU. Off HFOT, on ventimask 31%. Breathing better. No abdominal pain. OBJECTIVE: Vital Signs Period Temp Pulse Resp BP Sys/Pham Pulse Ox Last 24 Hr 98.6 F-99.6 F 80-101 20-28 145-159/58-89 94-96 Intake & Output 03/04/18 03/05/18 03/06/18 03/07/18 23:59 23:59 23:59 23:59 Intake Total 2615 1425.6 752 240 Output Total 2100 2300 1750 600 Balance 515 -874.4 -998 -360 Weight 101.151 kg 100.879 kg 99.5 kg 100.062 kg Gen: less tachypneic Heart: RRR Lung: decreased breath sounds at the bases Abd: soft, nontender Ext: no edema CBC, BMP 03/07/18 05:30 03/07/18 05:30 Active Medications Acetaminophen (Tylenol -) 650 mg PO Q6H PRN PRN Reason: FEVER Last Admin: 03/03/18 17:27 Dose: 650 mg Albuterol/Ipratropium (Duoneb -) 1 amp NEB RQID [facility] Last Admin: 03/07/18 07:40 Dose: 1 amp Aspirin (Asa -) 81 mg NGT DAILY [facility] Last Admin: 03/07/18 09:50 Dose: 81 mg Atorvastatin Calcium (Lipitor -) 40 mg NGT HS [facility] Last Admin: 03/06/18 23:23 Dose: Not Given Clotrimazole (Clotrimazole) 1 applic TP BID [facility] Last Admin: 03/07/18 09:41 Dose: Not Given Docusate Sodium (Colace Liquid -) 200 mg NGT DAILY [facility] Last Admin: 03/07/18 09:50 Dose: 200 mg Enoxaparin Sodium (Lovenox -) 100 mg SQ BID [facility] Last Admin: 03/07/18 09:35 Dose: 100 mg Escitalopram Oxalate (Lexapro -) 10 mg NGT DAILY [facility] Last Admin: 11/13/18 09:50 Dose: 10 mg Gabapentin (Neurontin Oral Liquid -) 300 mg NGT TID [facility] Piperacillin Sod/Tazobactam (Sod 4.5 gm/ Dextrose) 100 mls @ 200 mls/hr IVPB Q8H-IV [facility]; Protocol Last Admin: 03/07/18 09:28 Dose: 200 mls/hr Famotidine/Sodium Chloride (Pepcid 20 Mg Premixed Ivpb -) 20 mg in 50 mls @ 100 mls/hr IVPB BID [facility] Last Admin: 03/07/18 09:28 Dose: 100 mls/hr Potassium Phosphate 15 mm/ (Sodium Chloride) 255 mls @ 63.75 mls/hr IVPB ONCE ONE Stop: 03/07/18 12:59 Insulin Aspart (Novolog Vial Sliding Scale -) 1 vial SQ [facility]; Protocol Last Admin: 03/07/18 06:21 Dose: 2 units Insulin Detemir (Levemir Vial) 20 units SQ HS [facility] Last Admin: 03/06/18 21:55 Dose: Not Given Lisinopril (Prinivil) 30 mg NGT DAILY [facility] Last Admin: 03/07/18 09:36 Dose: 30 mg Methyl Salicylate (Felix-Seaman -) 1 applic TP Q8H PRN PRN Reason: BODY ACHES Metoprolol Tartrate (Lopressor -) 25 mg NGT BID [facility] Last Admin: 03/07/18 09:35 Dose: 25 mg Multi-Ingredient Ointment (Zinc Oxide) 1 applic TP BID [facility] Last Admin: 03/07/18 09:41 Dose: Not Given Polyethylene Glycol (Miralax (For Daily Use) -) 17 gm NGT TID [facility] ASSESSMENT AND PLAN: s/p Acute Hypoxic Respiratory Failure Pneumonia likely Aspiration Sigmoid Volvulus s/p Rectal Tube Decompression Sepsis Lactic Acidosis LV Diastolic Dysfunction +Troponins likely Demand Ischemia Paroxysmal Atrial Fibrillation h/o CVA - continue antibiotics - can transition to nasal cannula - aspiration precautions - rectal tube per GI - rate control - continue anticoagulation - DVT prophylaxis - can monitor on telemetry critical care time spent in reviewing chart, evaluating patient and formulating plan 35 min
--- NOTE | 2018-03-07 12:35 | PN ---
Physical Exam: SUBJECTIVE: Patient seen and examined at bedside. No acute events overnight. Patient on high flow at 40/30% this morning, switched to venti mask 31% and maintaining saturation >90%. Patient on restraints of left hand as he kept on pulling on his NG tube. NGT in place today, resume tube feeding and medications through NGT. OBJECTIVE: Vital Signs Period Temp Pulse Resp BP Sys/Pham Pulse Ox Last 24 Hr 98.6 F-99.6 F 80-101 20-28 145-159/58-89 94-96 GENERAL: Patient is awake, alert, and fully oriented, not in distress, on 31% venti mask EYES: PERRLA, EOMI, sclera anicteric, conjunctiva clear. LUNGS: +scattered rhonchi bilaterally HEART: Regular rate, irregular rhythm, without murmur, rub or gallop. ABDOMEN: Soft, nontender, nondistended, normoactive bowel sounds. UPPER EXTREMITIES: 2+ pulses, warm, well-perfused. No peripheral edema. LOWER EXTREMITIES: 2+ pulses, warm, well-perfused. +1 peripheral edema SKIN: Warm, dry, normal turgor, no rashes or lesions noted. Laboratory Results - last 24 hr 03/07/18 03/07/18 05:30 05:30 WBC 8.2 RBC 4.17 Hgb 13.0 Hct 38.1 MCV 91.5 MCH 31.2 MCHC 34.1 RDW 14.6 Plt Count 211 D MPV 9.3 Sodium 139 Potassium 3.5 Chloride 99 Carbon Dioxide 26 Anion Gap 14 BUN 7 Creatinine 0.5 L Creat Clearance w eGFR > 60 Random Glucose 167 H Calcium 7.8 L Phosphorus 1.8 L Magnesium 2.1 Active Medications Generic Name Dose Route Start Last Admin Trade Name Freq PRN Reason Stop Dose Admin Acetaminophen 650 mg 03/01/18 01:29 03/03/18 17:27 Tylenol - PO 650 mg Q6H PRN Administration FEVER Albuterol/Ipratropium 1 amp 03/01/18 08:00 03/07/18 11:25 Duoneb - NEB 1 amp RQID FLORIN Administration Aspirin 81 mg 03/07/18 09:23 03/07/18 09:50 Asa - NGT 81 mg DAILY [facility] Administration Atorvastatin Calcium 40 mg 03/06/18 12:02 03/06/18 23:23 Lipitor - NGT Not Given HS [facility] Clotrimazole 1 applic 03/01/18 10:03 03/07/18 09:41 Clotrimazole TP Not Given BID [facility] Docusate Sodium 200 mg 03/07/18 09:23 03/07/18 09:50 Colace Liquid - NGT 200 mg DAILY [facility] Administration Enoxaparin Sodium 100 mg 03/01/18 13:30 03/07/18 09:35 Lovenox - SQ 100 mg BID [facility] Administration Escitalopram Oxalate 10 mg 03/07/18 09:23 03/07/18 09:50 Lexapro - NGT 10 mg DAILY [facility] Administration Gabapentin 300 mg 03/07/18 14:00 Neurontin Oral Liquid - NGT TID [facility] Piperacillin Sod/Tazobactam 100 mls @ 200 mls/hr 03/01/18 10:00 03/07/18 09: 28 Sod 4.5 gm/ Dextrose IVPB 200 mls/hr Q8H-IV [facility] Administration Protocol Famotidine/Sodium Chloride 20 mg in 50 mls @ 100 mls/hr 03/04/18 22:00 09:28 Pepcid 20 Mg Premixed Ivpb - IVPB 100 mls/hr BID [facility] Administration Potassium Phosphate 15 mm/ 255 mls @ 63.75 mls/hr 03/07/18 09:00 Sodium Chloride IVPB 03/07/18 12:59 ONCE ONE 15 MM/4 HR Insulin Aspart 1 vial 03/02/18 11:00 03/07/18 06:21 Novolog Vial Sliding Scale - SQ 2 units ACHS [facility]ORIN Administration Protocol Insulin Detemir 20 units 03/02/18 09:58 03/06/18 21:55 Levemir Vial SQ Not Given HS [facility] Lisinopril 30 mg 03/06/18 12:02 03/07/18 09:36 Prinivil NGT 30 mg DAILY [facility] Administration Methyl Salicylate 1 applic 03/01/18 01:30 Felix-Seaman - TP Q8H PRN BODY ACHES Metoprolol Tartrate 25 mg 03/06/18 11:00 03/07/18 09:35 Lopressor - NGT 25 mg BID [facility] Administration Multi-Ingredient Ointment 1 applic 03/01/18 10:00 03/07/18 09:41 Zinc Oxide TP Not Given BID [facility] Polyethylene Glycol 17 gm 03/07/18 09:23 Miralax (For Daily Use) - NGT TID [facility] ASSESSMENT/PLAN: Patient is a 77 year old male with past medical history HTN, HLD, DM, COPD, diastolic CHF, Ischemic CVA (with residual right-sided weakness), and chronic dysphagia (previously on trach), was sent from the senior care after a 2-day history of fever and lethargy. #Pulmonology 1)Acute Hypoxic Respiratory Failure likely 2/2 Pneumonia, COPD -On venti mask 31%, maintaining satn >90% -IV Zosyn 4.5gm q8h day 7 -IV fluids -Blood Cultures, influenza swab, urine legionalla and pneumococcal -- negative 2)COPD -Duonebs QID #Gastroenterology 1)Sigmoid colon volvulus -CT abdomen and pelvis: Markedly distended sigmoid colon that is suspicious for an intermittent volvulus. Fecal retention proximal to the distended sigmoid colon. -GI (Dr. Alves) consulted. Recommendations appreciated. -Rectal tube inserted last Tuesday -Removed 1 rectal tube yesterday, [address] -Flush rectal tube with 60cc sterile water twice per shift -correct electrolyte abnormalities. -Miralax 17g TID -Surgery (Dr. Sharif) consulted. -Would not recommend immediate surgical intervention. -Once improved he may be a candidate for elective sigmoid colectomy. -Can be started on tube feeding for now. #Cardiology 1)Atrial Fibrillation -Cardiology (Dr. Beltrán) consulted. Recommendations appreciated. -Start PO medications through NGT. -Lisinopril 30mg daily -Lopressor 25mg BID 2)Diastolic CHF -Hold home lasix -Continue Lovenox 100mg sq bid 3)Hypertension -will restart home medications, Lisinopril and Lopressor -monitor BP 4)Hyperlipidemia -Continue Atorvastatin 40mg PO HS 5)Troponinemia, resolved -peaked at 0.98, now 0.56 -likely 2/2 demand ischemia 6)QTc prolongation: 810ms -Avoid agents that increase QTc #Infectious Disease 1)Sepsis likely 2/2 Pneumonia, improving -ID (Dr. Peters) consulted. Recommendations appreciated. -Continue Zosyn 4.5 gm q8h -Vancomycin discontinued. -Blood cx, urine cx, influenza swab, urine legionella, pneumococcal, c.diff - negative #Nephrology 1)Hypokalemia: K 3.5 -Potassium phosphate given -repeat bmp -will continue to monitor and replete PRN 2)Hypophosphatemia: 1.8 -will replete PRN -will continue to monitor #Endocrinology 1)DM -Insulin Levemir 20 units sq hs -Insulin sliding scale ACHS -BGM ACHS #Neurology 1)Hx of Ischemic CVA (with residual right-sided weakness) -continue ASA and atorvastatin #FEN -Not on standing fluids -hypoK, hypoPhos, replete PRN -routine bmp monitoring -Tube feeding #Prophylaxis 1)DVT - on Lovenox 100mg sq BID 2)GI - Pepcid 25mg BID #Disposition -Full code -For transfer to med-surg Visit type - Emergency Visit Emergency Visit: Yes ED Registration Date: 02/28/18 Care time: The patient presented to the Emergency Department on the above date and was hospitalized for further evaluation of their emergent condition. - New Patient This patient is new to me today: Yes Date on this admission: 03/07/18 - Critical Care Critical Care patient: Yes Total Critical Care Time (in minutes): 40 Critical Care Statement: The care of this patient involved high complexity decision making to prevent further life threatening deterioration of the patient 's condition and/or to evaluate & treat vital organ system(s) failure or risk of failure.
[2018-03-07] MEDS: ACETAMINOPHEN 325 MG TABLET (FP) PO PRN (13:01)
[2018-03-07] MEDS ORDERED: GABAPENTIN 250 MG/5 ML ORAL SOLUTION, 470 ML BOTTLE NGT SCH (14:00)
--- NOTE | 2018-03-07 18:18 | PN ---
GI Progress Note Subjective: No acute events Pulled out NGT again, which was replaced by nursing Denies abdominal pain Scant BM's - Objective Vital Signs: Vital Signs Temperature 99.1 F 03/07/18 14:00 Pulse Rate 97 H 03/07/18 16:00 Respiratory Rate 22 H 03/07/18 16:00 Blood Pressure 157/80 03/07/18 16:00 O2 Sat by Pulse Oximetry (%) 95 03/07/18 09:00 Constitutional: Calm Eyes: No: Sclera Icterus Cardiovascular: Yes: Regular Rate and Rhythm Respiratory: Yes: Diminished (at bases b/l) Gastrointestinal Inspection: Yes: Hernia (non-tender umbilical hernia) ...Auscultate: Yes: Normoactive Bowel Sounds ...Palpate: No: Hepatomegaly, Splenomegaly, Tenderness ...Percussion: No: Fluid Wave, Tympanitic Neurological: Yes: Alert Labs: CBC, BMP 03/07/18 05:30 03/07/18 05:30 INR, PTT INR 1.18 (0.83-1.09) H 02/28/18 20:06 Hepatic Panel Total Bilirubin 1.4 mg/dL (0.2-1) H 03/05/18 05:30 AST 31 U/L (15-37) 03/05/18 05:30 ALT 19 U/L (13-61) 03/05/18 05:30 Alkaline Phosphatase 43 U/L (45-117) L 03/05/18 05:30 Albumin 2.5 g/dl (3.4-5.0) L 03/05/18 05:30 Problem List - Problems (1) Volvulus of sigmoid colon Assessment/Plan: Clinically remains improved Will contemplate removal of rectal tube tomorrow and observe MiraLAX 17g TID Surgical follow-up regarding timing of surgical resection Code(s): K56.2 - VOLVULUS
--- NOTE | 2018-03-07 18:22 | PN ---
Progress Note (short form) - Note Progress Note: pulled ngt out replaced again no complaints of abdominal pain Vital Signs Period Temp Pulse Resp BP Sys/Pham Pulse Ox Last 24 Hr 98.6 F-100.3 F 80-98 20-25 145-159/58-89 94-96 cor-rrr lungs decreased bs at bases abd soft,nt ext no edema CBC, BMP 03/07/18 05:30 03/07/18 05:30 Microbiology 02/28/18 20:25 Blood - Peripheral Venous Blood Culture - Final NO GROWTH AFTER 5 DAYS INCUBATION 02/28/18 20:25 Blood - Peripheral Venous Blood Culture - Final NO GROWTH AFTER 5 DAYS INCUBATION 03/03/18 06:00 Stool Clostridium difficile Antigen (AMY) - Final 03/03/18 06:00 Stool Clostridium difficile Toxin Assay - Final 03/01/18 20:30 Nares - Mrsa Screen - Right MRSA Screen - Final NO MRSA ISOLATED 03/01/18 20:30 Nares - Mrsa Screen - Left MRSA Screen - Final NO MRSA ISOLATED 02/28/18 22:53 Urine - Urine Clean Catch Urine Culture - Final NO GROWTH OBTAINED 03/01/18 11:20 Urine For Antigen Detection Legionella Antigen - Final 03/01/18 11:20 Urine For Antigen Detection Streptococcus pneumoniae Antigen (M - Final 02/28/18 23:30 Nasopharyngeal Swab Influenza Types A,B Antigen - Final 02/28/18 23:30 Nasopharyngeal Swab - Final Current Medications Acetaminophen (Tylenol -) 650 mg PO Q6H PRN PRN Reason: FEVER Last Admin: 03/07/18 13:01 Dose: 650 mg Albuterol/Ipratropium (Duoneb -) 1 amp NEB RQID [facility] Last Admin: 03/07/18 16:10 Dose: 1 amp Aspirin (Asa -) 81 mg NGT DAILY [facility] Last Admin: 03/07/18 09:50 Dose: 81 mg Atorvastatin Calcium (Lipitor -) 40 mg NGT HS [facility] Last Admin: 03/06/18 23:23 Dose: Not Given Clotrimazole (Clotrimazole) 1 applic TP BID [facility] Last Admin: 03/07/18 09:41 Dose: Not Given Docusate Sodium (Colace Liquid -) 200 mg NGT DAILY [facility] Last Admin: 03/07/18 09:50 Dose: 200 mg Enoxaparin Sodium (Lovenox -) 100 mg SQ BID [facility] Last Admin: 03/07/18 09:35 Dose: 100 mg Escitalopram Oxalate (Lexapro -) 10 mg NGT DAILY [facility] Last Admin: 03/07/18 09:50 Dose: 10 mg Gabapentin (Neurontin Oral Liquid -) 300 mg NGT TID [facility] Last Admin: 03/07/18 12:59 Dose: 300 mg Piperacillin Sod/Tazobactam (Sod 4.5 gm/ Dextrose) 100 mls @ 200 mls/hr IVPB Q8H-IV [facility]; Protocol Last Admin: 03/07/18 17:13 Dose: 200 mls/hr Famotidine/Sodium Chloride (Pepcid 20 Mg Premixed Ivpb -) 20 mg in 50 mls @ 100 mls/hr IVPB BID [facility] Last Admin: 03/07/18 09:28 Dose: 100 mls/hr Insulin Aspart (Novolog Vial Sliding Scale -) 1 vial SQ ACHS [facility]; Protocol Last Admin: 03/07/18 17:16 Dose: 2 units Insulin Detemir (Levemir Vial) 20 units SQ HS [facility] Last Admin: 03/06/18 21:55 Dose: Not Given Lisinopril (Prinivil) 30 mg NGT DAILY [facility] Last Admin: 03/07/18 09:36 Dose: 30 mg Methyl Salicylate (Felix-Seaman -) 1 applic TP Q8H PRN PRN Reason: BODY ACHES Metoprolol Tartrate (Lopressor -) 25 mg NGT BID [facility] Last Admin: 03/07/18 09:35 Dose: 25 mg Multi-Ingredient Ointment (Zinc Oxide) 1 applic TP BID [facility] Last Admin: 03/07/18 09:41 Dose: Not Given Polyethylene Glycol (Miralax (For Daily Use) -) 17 gm NGT TID [facility] Last Admin: 03/07/18 13:04 Dose: 17 grams a/p RLL pneumonia abdominal distention/volvulus- improved with rectal tube zosyn day #7-d/c zosyn in am rapid afib- improved f/u GI and surgery Problem List - Problems (1) Sepsis Code(s): A41.9 - SEPSIS, UNSPECIFIED ORGANISM Qualifiers: Sepsis type: sepsis due to unspecified organism Qualified Code(s): A41.9 - Sepsis, unspecified organism (2) Pneumonia Code(s): J18.9 - PNEUMONIA, UNSPECIFIED ORGANISM (3) Hypoxemia Code(s): R09.02 - HYPOXEMIA (4) COPD exacerbation Code(s): J44.1 - CHRONIC OBSTRUCTIVE PULMONARY DISEASE W (ACUTE) EXACERBATION (5) Rapid atrial fibrillation Code(s): I48.91 - UNSPECIFIED ATRIAL FIBRILLATION (6) Elevated troponin Code(s): R74.8 - ABNORMAL LEVELS OF OTHER SERUM ENZYMES (7) Prolonged Q-T interval on ECG Code(s): R94.31 - ABNORMAL ELECTROCARDIOGRAM [ECG] [EKG]
[2018-03-07] MEDS ORDERED: METHYL SALICYLATE/MENTHOL OINT 30 GM TUBE TP PRN (19:11)
[2018-03-07] MEDS: ATORVASTATIN CA 40 MG TABLET (FP) NGT SCH (22:37)
[2018-03-07] MEDS: POLYETHYLENE GLYCOL 3350 119 GM BTL NGT SCH (22:38)
[2018-03-07] MEDS: GABAPENTIN 250 MG/5 ML ORAL SOLUTION, 470 ML BOTTLE NGT SCH (22:39)
[2018-03-07] MEDS: INSULIN (LEVEMIR) 100 UNITS/ML UNITS SQ SCH (22:44)
[2018-03-08] MEDS ORDERED: PIPERACILLIN/TAZOB 4.5 GM 4.5 GM in DEXTROSE 5%-WATER 100 ML IVPB SCH (02:00)
[2018-03-08] MEDS ORDERED: PIPERACILLIN/TAZOBACTAM 4.5 GM VIAL IVPB ONE ×2 (02:09→08:12)
[2018-03-08] MEDS ORDERED: DEXTROSE 5%-WATER 100 ML IVPB ONE ×2 (02:09→08:12)
[2018-03-08] MEDS: POLYETHYLENE GLYCOL 3350 119 GM BTL NGT SCH ×3 (06:35→21:38)
[2018-03-08] MEDS: GABAPENTIN 250 MG/5 ML ORAL SOLUTION, 470 ML BOTTLE NGT SCH ×3 (06:36→21:42)
[2018-03-08] MEDS: INSULIN SLIDING SCALE (NOVOLOG) 1 VIAL SQ SCH ×4 (06:36→22:09)
[2018-03-08 07:17] LABS: HEMATOCRIT 37.2 % (35.4-49); HEMOGLOBIN 12.8 GM/dL (11.7-16.9); MCH 31.5 pg (25.7-33.7); MCHC 34.5 g/dl (32.0-35.9); MEAN CELL VOLUME 91.4 fl (80-96); MEAN PLT VOLUME 9.2 fl (7.5-11.1); PLATELET COUNT 276 K/MM3 (134-434); RBC 4.07 M/mm3 (4.00-5.60); RDW 14.8 % (11.9-15.9); WHITE BLOOD COUNT 8.3 K/mm3 (4.0-10.0)
[2018-03-08 08:10] LABS: ANION GAP 11 MMOL/L (8-16); BLOOD UREA NITROGEN 7 mg/dL (7-18); CALCIUM 7.9 mg/dL (8.5-10.1); CHLORIDE 98 mmol/L (98-107); CO2 29 mmol/L (21-32); CREATININE 0.6 mg/dL (0.55-1.3); GLUCOSE,RANDOM 182 mg/dL (74-106); MAGNESIUM 2.2 mg/dL (1.8-2.4); PHOSPHOROUS 2.4 mg/dL (2.5-4.9); POTASSIUM 3.7 mmol/L (3.5-5.1); SODIUM 138 mmol/L (136-145)
[2018-03-08] MEDS: ALBUTEROL SO4 2.5/IPRATROPIUM 0.5 INH SOL 3 ML VIAL.NEB. NEB SCH ×4 (08:31→20:35)
--- NOTE | 2018-03-08 09:15 | PN ---
Progress Note (short form) - Note Progress Note: transferred to telemetry no complaints still with rectal tube on tube feeds Vital Signs Period Temp Pulse Resp BP Sys/Pham Pulse Ox Last 24 Hr 98.1 F-100.3 F 82-97 20-29 123-164/73-92 98-98 cor-rrr lungs decreased bs at bases abd soft,nt ext no edema +owen CBC, BMP 03/08/18 05:30 03/08/18 05:30 Microbiology 02/28/18 20:25 Blood - Peripheral Venous Blood Culture - Final NO GROWTH AFTER 5 DAYS INCUBATION 02/28/18 20:25 Blood - Peripheral Venous Blood Culture - Final NO GROWTH AFTER 5 DAYS INCUBATION 03/03/18 06:00 Stool Clostridium difficile Antigen (AMY) - Final 03/03/18 06:00 Stool Clostridium difficile Toxin Assay - Final 03/01/18 20:30 Nares - Mrsa Screen - Right MRSA Screen - Final NO MRSA ISOLATED 03/01/18 20:30 Nares - Mrsa Screen - Left MRSA Screen - Final NO MRSA ISOLATED 02/28/18 22:53 Urine - Urine Clean Catch Urine Culture - Final NO GROWTH OBTAINED 03/01/18 11:20 Urine For Antigen Detection Legionella Antigen - Final 03/01/18 11:20 Urine For Antigen Detection Streptococcus pneumoniae Antigen (M - Final 02/28/18 23:30 Nasopharyngeal Swab Influenza Types A,B Antigen - Final 02/28/18 23:30 Nasopharyngeal Swab - Final a/p RLL pneumonia-has completed 7 days zosyn, will d/c antibiotics abdominal distention/volvulus- improved with rectal tube rapid afib- improved on meds f/u GI and surgery Problem List - Problems (1) Sepsis Code(s): A41.9 - SEPSIS, UNSPECIFIED ORGANISM Qualifiers: Sepsis type: sepsis due to unspecified organism Qualified Code(s): A41.9 - Sepsis, unspecified organism (2) Pneumonia Code(s): J18.9 - PNEUMONIA, UNSPECIFIED ORGANISM (3) Hypoxemia Code(s): R09.02 - HYPOXEMIA (4) COPD exacerbation Code(s): J44.1 - CHRONIC OBSTRUCTIVE PULMONARY DISEASE W (ACUTE) EXACERBATION (5) Rapid atrial fibrillation Code(s): I48.91 - UNSPECIFIED ATRIAL FIBRILLATION (6) Elevated troponin Code(s): R74.8 - ABNORMAL LEVELS OF OTHER SERUM ENZYMES (7) Prolonged Q-T interval on ECG Code(s): R94.31 - ABNORMAL ELECTROCARDIOGRAM [ECG] [EKG]
--- NOTE | 2018-03-08 09:22 | PN ---
Progress Note, Physician History of Present Illness: Remains on NC O2, SR with PAC/PVC on Lopressor, abd less distended, still lethargic. - Current Medication List Current Medications: Active Medications Acetaminophen (Tylenol -) 650 mg PO Q6H PRN PRN Reason: FEVER Albuterol/Ipratropium (Duoneb -) 1 amp NEB RQID [facility] Last Admin: 03/08/18 08:31 Dose: 1 amp Aspirin (Asa -) 81 mg NGT DAILY [facility] Atorvastatin Calcium (Lipitor -) 40 mg NGT HS [facility] Last Admin: 03/07/18 22:37 Dose: 40 mg Docusate Sodium (Colace Liquid -) 200 mg NGT DAILY [facility] Enoxaparin Sodium (Lovenox -) 100 mg SQ BID [facility] Last Admin: 03/07/18 22:38 Dose: 100 mg Escitalopram Oxalate (Lexapro -) 10 mg NGT DAILY [facility] Gabapentin (Neurontin Oral Liquid -) 300 mg NGT TID [facility] Last Admin: 03/08/18 06:36 Dose: 300 mg Famotidine/Sodium Chloride (Pepcid 20 Mg Premixed Ivpb -) 20 mg in 50 mls @ 100 mls/hr IVPB BID [facility] Last Admin: 03/07/18 22:40 Dose: 100 mls/hr Insulin Aspart (Novolog Vial Sliding Scale -) 1 vial SQ [facility]; Protocol Last Admin: 03/08/18 06:36 Dose: 2 units Insulin Detemir (Levemir Vial) 20 units SQ [facility] Last Admin: 03/07/18 22:44 Dose: 20 units Lisinopril (Prinivil) 30 mg NGT DAILY [facility] Methyl Salicylate (Felix-Seaman -) 1 applic TP Q8H PRN PRN Reason: BODY ACHES Metoprolol Tartrate (Lopressor -) 25 mg NGT BID [facility] Last Admin: 03/07/18 22:37 Dose: 25 mg Multi-Ingredient Ointment (Zinc Oxide) 1 applic TP BID [facility] Last Admin: 03/07/18 22:39 Dose: 1 applic Polyethylene Glycol (Miralax (For Daily Use) -) 17 gm NGT TID [facility] Last Admin: 03/08/18 06:35 Dose: 17 gm - Objective Vital Signs: Vital Signs Temperature 99.3 F 03/08/18 08:00 Pulse Rate 82 03/08/18 08:00 Respiratory Rate 20 03/08/18 08:00 Blood Pressure 143/86 03/08/18 08:00 O2 Sat by Pulse Oximetry (%) 98 03/07/18 22:00 Constitutional: Yes: No Distress, Calm, Thin Neck: Yes: Supple Cardiovascular: Yes: Regular Rate and Rhythm Respiratory: Yes: Regular, Diminished, On Nasal O2 Gastrointestinal: Yes: Soft, Hypoactive Bowel Sounds Genitourinary: Yes: Davsi Present Edema: No Labs: CBC, BMP 03/08/18 05:30 03/08/18 05:30 INR, PTT INR 1.18 (0.83-1.09) H 02/28/18 20:06 - ....Imaging EKG: Report Reviewed (Tele: PAC, PVC) Problem List - Problems (1) Elevated troponin Code(s): R74.8 - ABNORMAL LEVELS OF OTHER SERUM ENZYMES (2) Rapid atrial fibrillation Code(s): I48.91 - UNSPECIFIED ATRIAL FIBRILLATION (3) Diastolic dysfunction Code(s): I51.9 - HEART DISEASE, UNSPECIFIED (4) H/O: CVA (cerebrovascular accident) Code(s): Z86.73 - PRSNL HX OF TIA (TIA), AND CEREB INFRC W/O RESID DEFICITS (5) Hyperlipidemia Code(s): E78.5 - HYPERLIPIDEMIA, UNSPECIFIED Qualifiers: Hyperlipidemia type: pure hypercholesterolemia Qualified Code(s): E78.00 - Pure hypercholesterolemia, unspecified; E78.0 - Pure hypercholesterolemia (6) Hypertension Code(s): I10 - ESSENTIAL (PRIMARY) HYPERTENSION Qualifiers: Hypertension type: essential hypertension Qualified Code(s): I10 - Essential (primary) hypertension (7) Pneumonia Code(s): J18.9 - PNEUMONIA, UNSPECIFIED ORGANISM Qualifiers: Pneumonia type: due to unspecified organism Laterality: right Lung location: lower lobe of lung Qualified Code(s): J18.1 - Lobar pneumonia, unspecified organism (8) Toxic metabolic encephalopathy Code(s): G92 - TOXIC ENCEPHALOPATHY (9) Demand ischemia Code(s): I24.8 - OTHER FORMS OF ACUTE ISCHEMIC HEART DISEASE (10) Premature ventricular contraction Code(s): I49.3 - VENTRICULAR PREMATURE DEPOLARIZATION (11) Volvulus of descending colon Code(s): K56.2 - VOLVULUS Assessment/Plan 12/20/2017 Echo: Normal LV size and fxn, tr MR, TR 1. RLL aspiration PNA - HCAP resolving 2. Intermittent sigmoid volvulus post rectal tube decompression 3. LV Diastolic Dysfunction 4. Demand ischemia 5. Toxic-metabolic encephelopathy 6. 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 PAF->SR [id number] score 7 on Lovenox therapy 8. PVC, PAC 9. Hypernatremia resolved P:1. Empiric abx course to cover possible aspiration pneumonia-HCAP, free H20 repletion, replete K 2. Continue Lopressor 25 bid for rate-control, lisinopril 30 qd, ASA 81 qd, Lipitor 40 qd 3. Lovenox 100 bid pending likely procedure 4. Inhaled bronchodilators standing and PRN,O2 to keep SpO2 >90% 5. Enteral feeds, transition to oral meds, await definitive repair once pulmonary status improves 6. DVT and GI prophylaxis
[2018-03-08] MEDS: ESCITALOPRAM OXALATE 10 MG TABLET (FP) NGT SCH (09:25)
[2018-03-08] MEDS: ASPIRIN 81 MG CHEWABLE TABLETS NGT SCH (09:25)
[2018-03-08] MEDS: LISINOPRIL 10 MG TABLET (FP) NGT SCH (09:25)
[2018-03-08] MEDS: ENOXAPARIN NA (PORCINE) 100 MG/1 ML DISP.SYRIN SQ SCH ×2 (09:26→21:37)
[2018-03-08] MEDS: METOPROLOL TARTRATE 25 MG TABLET (FP) NGT SCH ×2 (09:26→21:38)
[2018-03-08] MEDS ORDERED: PT OWN MED DRAWER 7, Y5N ONE ×2 (09:44→18:03)
[2018-03-08] MEDS: DOCUSATE NA 100 MG/10 ML UNIT-DOSE CUPS NGT SCH (09:47)
[2018-03-08] MEDS: FAMOTIDINE 20 MG/50 ML IVPB 20 MG/50 ML MG IVPB SCH ×2 (09:47→21:36)
[2018-03-08] MEDS: ZINC OXIDE 20% TOPICAL OINTMENT 30 GM TUBE TP SCH ×2 (09:49→21:37)
--- NOTE | 2018-03-08 10:22 | PN ---
Progress Note, Physician Chief Complaint: volvulus History of Present Illness: 77yo male PMH HTN, HLD, CHF, CVA with residual right sided weakness, dysphagia, DM2, COPD presented with weakness and fever 103 from [facility]. Remains weak, marginally responsive, on cardizem for Afib which is more rate controlled now. transferred to the floor and stable - Current Medication List Current Medications: Active Medications Acetaminophen (Tylenol -) 650 mg PO Q6H PRN PRN Reason: FEVER Albuterol/Ipratropium (Duoneb -) 1 amp NEB RQID [facility] Last Admin: 03/08/18 08:31 Dose: 1 amp Aspirin (Asa -) 81 mg NGT DAILY [facility] Last Admin: 03/08/18 09:25 Dose: 81 mg Atorvastatin Calcium (Lipitor -) 40 mg NGT HS [facility] Last Admin: 03/07/18 22:37 Dose: 40 mg Docusate Sodium (Colace Liquid -) 200 mg NGT DAILY [facility] Last Admin: 03/08/18 09:47 Dose: 200 mg Enoxaparin Sodium (Lovenox -) 100 mg SQ BID [facility] Last Admin: 03/08/18 09:26 Dose: 100 mg Escitalopram Oxalate (Lexapro -) 10 mg NGT DAILY [facility] Last Admin: 03/08/18 09:25 Dose: 10 mg Gabapentin (Neurontin Oral Liquid -) 300 mg NGT TID [facility] Last Admin: 03/08/18 06:36 Dose: 300 mg Famotidine/Sodium Chloride (Pepcid 20 Mg Premixed Ivpb -) 20 mg in 50 mls @ 100 mls/hr IVPB BID [facility] Last Admin: 03/08/18 09:47 Dose: 100 mls/hr Insulin Aspart (Novolog Vial Sliding Scale -) 1 vial SQ [facility]; Protocol Last Admin: 03/08/18 06:36 Dose: 2 units Insulin Detemir (Levemir Vial) 20 units SQ [facility] Last Admin: 03/07/18 22:44 Dose: 20 units Lisinopril (Prinivil) 30 mg NGT DAILY [facility] Last Admin: 03/08/18 09:25 Dose: 30 mg Methyl Salicylate (Felix-Seaman -) 1 applic TP Q8H PRN PRN Reason: BODY ACHES Metoprolol Tartrate (Lopressor -) 25 mg NGT BID [facility] Last Admin: 03/08/18 09:26 Dose: 25 mg Multi-Ingredient Ointment (Zinc Oxide) 1 applic TP BID [facility] Last Admin: 03/08/18 09:49 Dose: 1 applic Polyethylene Glycol (Miralax (For Daily Use) -) 17 gm NGT TID [facility] Last Admin: 03/08/18 06:35 Dose: 17 gm - Objective Vital Signs: Vital Signs Temperature 99.3 F 03/08/18 08:00 Pulse Rate 82 03/08/18 08:00 Respiratory Rate 20 03/08/18 08:00 Blood Pressure 143/86 03/08/18 08:00 O2 Sat by Pulse Oximetry (%) 98 03/07/18 22:00 Constitutional: Yes: No Distress, Calm, Obese Eyes: Yes: Conjunctiva Clear, EOM Intact HENT: Yes: Atraumatic, Normocephalic Neck: Yes: Supple, Trachea Midline Cardiovascular: Yes: Regular Rate and Rhythm, S1, S2 Respiratory: Yes: Regular, CTA Bilaterally Gastrointestinal: Yes: Normal Bowel Sounds, Soft, Abdomen, Obese. No: Distention, Tenderness, Tenderness, Epigastrium, Tenderness, Rebound Genitourinary: No: CVA Tenderness - Left, CVA Tenderness - Right Musculoskeletal: No: Muscle Pain, Muscle Weakness Extremities: No: Cool, Cyanosis Edema: No Peripheral Pulses WNL: Yes Peripheral Pulses: Left Radial: 2+, Right Radial: 2+, Left Doralis Pedis: 2+, Right Dorsalis Pedis: 2+ Integumentary: No: Jaundice, Pressure Ulcer, Rash Neurological: Yes: Alert. No: Oriented, Confusion Psychiatric: Yes: Alert. No: Oriented Labs: CBC, BMP 03/08/18 05:30 03/08/18 05:30 INR, PTT INR 1.18 (0.83-1.09) H 02/28/18 20:06 Problem List - Problems (1) Volvulus of sigmoid colon Assessment/Plan: 77yo male MMP RLL pneumonia recently decompressed with rectal tube now soft abdomen with out peritonitis. Would not reccomend immediate surgical intervention. Once improved he may be a candidate for elective sigmoid colectomy. GI following for now Medical clearence for elective surgery optimized nutritional status in the interval F/u after discharge for elective sigmoid colectomy Recall surgrery as needed Thank you for the opportunity to participate in the care of this patient. Code(s): K56.2 - VOLVULUS (2) Elevated troponin Code(s): R74.8 - ABNORMAL LEVELS OF OTHER SERUM ENZYMES (3) Hypoxemia Code(s): R09.02 - HYPOXEMIA (4) Pneumonia Code(s): J18.9 - PNEUMONIA, UNSPECIFIED ORGANISM (5) COPD (chronic obstructive pulmonary disease) Code(s): J44.9 - CHRONIC OBSTRUCTIVE PULMONARY DISEASE, UNSPECIFIED Qualifiers: Emphysema type: unspecified (6) Diabetes Code(s): E11.9 - TYPE 2 DIABETES MELLITUS WITHOUT COMPLICATIONS (7) Fecal retention Code(s): K59.00 - CONSTIPATION, UNSPECIFIED
--- NOTE | 2018-03-08 12:03 | PN ---
Progress Note, Physician History of Present Illness: PULMONARY NO DISTRESS,ON NASAL CANNULA - Current Medication List Current Medications: Active Medications Acetaminophen (Tylenol -) 650 mg PO Q6H PRN PRN Reason: FEVER Albuterol/Ipratropium (Duoneb -) 1 amp NEB RQID [facility] Last Admin: 03/08/18 08:31 Dose: 1 amp Aspirin (Asa -) 81 mg NGT DAILY [facility] Last Admin: 03/08/18 09:25 Dose: 81 mg Atorvastatin Calcium (Lipitor -) 40 mg NGT HS [facility] Last Admin: 03/07/18 22:37 Dose: 40 mg Docusate Sodium (Colace Liquid -) 200 mg NGT DAILY [facility] Last Admin: 03/08/18 09:47 Dose: 200 mg Enoxaparin Sodium (Lovenox -) 100 mg SQ BID [facility] Last Admin: 03/08/18 09:26 Dose: 100 mg Escitalopram Oxalate (Lexapro -) 10 mg NGT DAILY [facility] Last Admin: 03/08/18 09:25 Dose: 10 mg Gabapentin (Neurontin Oral Liquid -) 300 mg NGT TID [facility] Last Admin: 03/08/18 06:36 Dose: 300 mg Famotidine/Sodium Chloride (Pepcid 20 Mg Premixed Ivpb -) 20 mg in 50 mls @ 100 mls/hr IVPB BID [facility] Last Admin: 03/08/18 09:47 Dose: 100 mls/hr Insulin Aspart (Novolog Vial Sliding Scale -) 1 vial SQ [facility]; Protocol Last Admin: 03/08/18 06:36 Dose: 2 units Insulin Detemir (Levemir Vial) 20 units SQ [facility] Last Admin: 03/07/18 22:44 Dose: 20 units Lisinopril (Prinivil) 30 mg NGT DAILY [facility] Last Admin: 03/08/18 09:25 Dose: 30 mg Methyl Salicylate (Felix-Seaman -) 1 applic TP Q8H PRN PRN Reason: BODY ACHES Metoprolol Tartrate (Lopressor -) 25 mg NGT BID [facility] Last Admin: 03/08/18 09:26 Dose: 25 mg Multi-Ingredient Ointment (Zinc Oxide) 1 applic TP BID [facility] Last Admin: 03/08/18 09:49 Dose: 1 applic Polyethylene Glycol (Miralax (For Daily Use) -) 17 gm NGT TID [facility] Last Admin: 03/08/18 06:35 Dose: 17 gm - Objective Vital Signs: Vital Signs Temperature 99.4 F 03/08/18 10:00 Pulse Rate 82 03/08/18 10:00 Respiratory Rate 26 H 03/08/18 10:00 Blood Pressure 143/86 03/08/18 10:00 O2 Sat by Pulse Oximetry (%) 98 03/08/18 10:00 Constitutional: Yes: Well Nourished, Calm Eyes: Yes: WNL HENT: Yes: WNL Neck: Yes: WNL Cardiovascular: Yes: Pulse Irregular, S1, S2 Respiratory: Yes: Rhonchi (SCATTERED ELIZABETH RHONCHI) Gastrointestinal: Yes: Normal Bowel Sounds, Soft Extremities: Yes: WNL Edema: No Labs: CBC, BMP 03/08/18 05:30 03/08/18 05:30 INR, PTT INR 1.18 (0.83-1.09) H 02/28/18 20:06 Problem List - Problems (1) Hypoxemia Code(s): R09.02 - HYPOXEMIA (2) Sepsis Code(s): A41.9 - SEPSIS, UNSPECIFIED ORGANISM Qualifiers: Sepsis type: sepsis due to unspecified organism Qualified Code(s): A41.9 - Sepsis, unspecified organism (3) Volvulus of descending colon Code(s): K56.2 - VOLVULUS (4) COPD (chronic obstructive pulmonary disease) Code(s): J44.9 - CHRONIC OBSTRUCTIVE PULMONARY DISEASE, UNSPECIFIED Qualifiers: Emphysema type: unspecified (5) Diabetes Code(s): E11.9 - TYPE 2 DIABETES MELLITUS WITHOUT COMPLICATIONS (6) Diastolic dysfunction Code(s): I51.9 - HEART DISEASE, UNSPECIFIED (7) H/O: CVA (cerebrovascular accident) Code(s): Z86.73 - PRSNL HX OF TIA (TIA), AND CEREB INFRC W/O RESID DEFICITS (8) Hypertension Code(s): I10 - ESSENTIAL (PRIMARY) HYPERTENSION Qualifiers: Hypertension type: essential hypertension Qualified Code(s): I10 - Essential (primary) hypertension (9) Pneumonia Code(s): J18.9 - PNEUMONIA, UNSPECIFIED ORGANISM Qualifiers: Pneumonia type: due to unspecified organism Laterality: right Lung location: lower lobe of lung Qualified Code(s): J18.1 - Lobar pneumonia, unspecified organism (10) Respiratory distress Code(s): R06.00 - DYSPNEA, UNSPECIFIED (11) Hypokalemia Code(s): E87.6 - HYPOKALEMIA (12) Pneumonia Code(s): J18.9 - PNEUMONIA, UNSPECIFIED ORGANISM (13) Prolonged Q-T interval on ECG Code(s): R94.31 - ABNORMAL ELECTROCARDIOGRAM [ECG] [EKG] Assessment/Plan ASSESSMENT AND PLAN: s/p Acute Hypoxic Respiratory Failure Pneumonia likely Aspiration Sigmoid Volvulus s/p Rectal Tube Decompression Sepsis Lactic Acidosis LV Diastolic Dysfunction +Troponins likely Demand Ischemia Paroxysmal Atrial Fibrillation h/o CVA - continue antibiotics - can transition to nasal cannula - aspiration precautions - rectal tube per GI - rate control - continue anticoagulation - DVT prophylaxis DR MIGUEL
--- NOTE | 2018-03-08 13:12 | PN ---
Progress Note (short form) - Note Progress Note: awake alert responding to commands on NGT feeding no distress Vital Signs - 24 hr 03/07/18 03/07/18 03/07/18 14:00 16:00 18:28 Temperature 99.1 F 98.8 F Pulse Rate 94 H 97 H 85 Respiratory 25 H 22 H 29 H Rate Blood Pressure 150/76 157/80 140/73 O2 Sat by Pulse Oximetry (%) 03/07/18 03/07/18 03/07/18 20:00 21:00 22:00 Temperature 98.4 F Pulse Rate 88 Respiratory 20 24 H Rate Blood Pressure 123/81 O2 Sat by Pulse 98 98 Oximetry (%) 03/08/18 03/08/18 03/08/18 02:27 05:50 08:00 Temperature 98.1 F 99.6 F 99.3 F Pulse Rate 82 87 82 Respiratory 20 24 H 20 Rate Blood Pressure 155/92 164/87 143/86 O2 Sat by Pulse Oximetry (%) 03/08/18 03/08/18 09:00 10:00 Temperature 99.4 F Pulse Rate 82 Respiratory 26 H 26 H Rate Blood Pressure 143/86 O2 Sat by Pulse 98 98 Oximetry (%) Current Medications Generic Name Dose Route Start Last Admin Trade Name Freq PRN Reason Stop Dose Admin Acetaminophen 650 mg 03/07/18 19:11 Tylenol - PO Q6H PRN FEVER Albuterol/Ipratropium 1 amp 03/07/18 20:00 03/08/18 11:08 Duoneb - NEB 1 amp RQID [facility] Administration Aspirin 81 mg 03/08/18 10:00 03/08/18 09:25 Asa - NGT 81 mg DAILY [facility] Administration Atorvastatin Calcium 40 mg 03/07/18 22:00 03/07/18 22:37 Lipitor - NGT 40 mg HS [facility] Administration Docusate Sodium 200 mg 03/08/18 10:00 03/08/18 09:47 Colace Liquid - NGT 200 mg DAILY [facility] Administration Enoxaparin Sodium 100 mg 03/07/18 22:00 03/08/18 09:26 Lovenox - SQ 100 mg BID [facility] Administration Escitalopram Oxalate 10 mg 03/08/18 10:00 03/08/18 09:25 Lexapro - NGT 10 mg DAILY [facility] Administration Gabapentin 300 mg 03/07/18 22:00 03/08/18 13:03 Neurontin Oral Liquid - NGT 300 mg TID [facility] Administration Famotidine/Sodium Chloride 20 mg in 50 mls @ 100 mls/hr 03/07/18 22:00 09:47 Pepcid 20 Mg Premixed Ivpb - IVPB 100 mls/hr BID [facility] Administration Insulin Aspart 1 vial 03/07/18 22:00 03/08/18 13:02 Novolog Vial Sliding Scale - SQ 4 units ACHS [facility] Administration Protocol Insulin Detemir 20 units 03/07/18 22:00 03/07/18 22:44 Levemir Vial SQ 20 units HS [facility] Administration Lisinopril 30 mg 03/08/18 10:00 03/08/18 09:25 Prinivil NGT 30 mg DAILY [facility] Administration Methyl Salicylate 1 applic 03/07/18 19:11 Felix-Seaman - TP Q8H PRN BODY ACHES Metoprolol Tartrate 25 mg 03/07/18 22:00 03/08/18 09:26 Lopressor - NGT 25 mg BID [facility] Administration Multi-Ingredient Ointment 1 applic 03/07/18 22:00 03/08/18 09:49 Zinc Oxide TP 1 applic BID [facility] Administration Polyethylene Glycol 17 gm 03/07/18 22:00 03/08/18 13:03 Miralax (For Daily Use) - NGT 17 gm TID [facility] Administration Laboratory Results - last 24 hr 03/06/18 03/06/18 03/06/18 12:24 16:57 23:27 WBC RBC Hgb Hct MCV MCH MCHC RDW Plt Count MPV Sodium Potassium Chloride Carbon Dioxide Anion Gap BUN Creatinine Creat Clearance w eGFR POC Glucometer 199.49195 182.25909 184.91772 Random Glucose Calcium Phosphorus Magnesium 03/07/18 03/07/18 03/07/18 06:20 12:19 17:15 WBC RBC Hgb Hct MCV MCH MCHC RDW Plt Count MPV Sodium Potassium Chloride Carbon Dioxide Anion Gap BUN Creatinine Creat Clearance w eGFR POC Glucometer 188.83846 215.74851 201.65128 Random Glucose Calcium Phosphorus Magnesium 03/07/18 03/08/18 03/08/18 22:43 05:30 05:30 WBC 8.3 RBC 4.07 Hgb 12.8 Hct 37.2 MCV 91.4 MCH 31.5 MCHC 34.5 RDW 14.8 Plt Count 276 D MPV 9.2 Sodium 138 Potassium 3.7 Chloride 98 Carbon Dioxide 29 Anion Gap 11 BUN 7 Creatinine 0.6 Creat Clearance w eGFR > 60 POC Glucometer 184 Random Glucose 182 H Calcium 7.9 L Phosphorus 2.4 L Magnesium 2.2 03/08/18 03/08/18 05:49 11:58 WBC RBC Hgb Hct MCV MCH MCHC RDW Plt Count MPV Sodium Potassium Chloride Carbon Dioxide Anion Gap BUN Creatinine Creat Clearance w eGFR POC Glucometer 181 222 Random Glucose Calcium Phosphorus Magnesium S1 S2 irregular Lungs decreased, ronchi ABd- soft, NT, BS+ No edema Sepsis, pneumonia,volvulus, pneumonia RLL --on NG feedings -- swallow follow up tomorrow, may need MBS -- rate is controlled -- on iv antibiotics --- For FUA Problem List - Problems (1) Demand ischemia Code(s): I24.8 - OTHER FORMS OF ACUTE ISCHEMIC HEART DISEASE (2) Elevated troponin Code(s): R74.8 - ABNORMAL LEVELS OF OTHER SERUM ENZYMES (3) Pneumonia Code(s): J18.9 - PNEUMONIA, UNSPECIFIED ORGANISM (4) Rapid atrial fibrillation Code(s): I48.91 - UNSPECIFIED ATRIAL FIBRILLATION (5) Sepsis Code(s): A41.9 - SEPSIS, UNSPECIFIED ORGANISM Qualifiers: Sepsis type: sepsis due to unspecified organism Qualified Code(s): A41.9 - Sepsis, unspecified organism
[2018-03-08] MEDS: ATORVASTATIN CA 40 MG TABLET (FP) NGT SCH (21:38)
[2018-03-08] MEDS: INSULIN (LEVEMIR) 100 UNITS/ML UNITS SQ SCH (22:09)
[2018-03-09] MEDS: GABAPENTIN 250 MG/5 ML ORAL SOLUTION, 470 ML BOTTLE NGT SCH ×3 (06:24→22:40)
[2018-03-09] MEDS: POLYETHYLENE GLYCOL 3350 119 GM BTL NGT SCH ×3 (06:24→22:40)
[2018-03-09] MEDS: INSULIN SLIDING SCALE (NOVOLOG) 1 VIAL SQ SCH ×4 (06:25→23:05)
[2018-03-09] MEDS: ALBUTEROL SO4 2.5/IPRATROPIUM 0.5 INH SOL 3 ML VIAL.NEB. NEB SCH ×4 (08:05→21:04)
[2018-03-09] MEDS ORDERED: PT OWN MED DRAWER 7, Y5N ONE (09:57)
--- NOTE | 2018-03-09 09:57 | PN ---
Progress Note, Physician History of Present Illness: Remains on NC O2 and enteral feeds with rectal tube, SR with PAC/PVC on Lopressor, abd less distended, still lethargic. - Current Medication List Current Medications: Active Medications Acetaminophen (Tylenol -) 650 mg PO Q6H PRN PRN Reason: FEVER Albuterol/Ipratropium (Duoneb -) 1 amp NEB RQID [facility] Last Admin: 03/09/18 08:05 Dose: 1 amp Aspirin (Asa -) 81 mg NGT DAILY [facility] Last Admin: 03/08/18 09:25 Dose: 81 mg Atorvastatin Calcium (Lipitor -) 40 mg NGT HS [facility] Last Admin: 03/08/18 21:38 Dose: 40 mg Docusate Sodium (Colace Liquid -) 200 mg NGT DAILY [facility] Last Admin: 03/08/18 09:47 Dose: 200 mg Enoxaparin Sodium (Lovenox -) 100 mg SQ BID [facility] Last Admin: 03/08/18 21:37 Dose: 100 mg Escitalopram Oxalate (Lexapro -) 10 mg NGT DAILY [facility] Last Admin: 03/08/18 09:25 Dose: 10 mg Gabapentin (Neurontin Oral Liquid -) 300 mg NGT TID [facility] Last Admin: 03/09/18 06:24 Dose: 300 mg Famotidine/Sodium Chloride (Pepcid 20 Mg Premixed Ivpb -) 20 mg in 50 mls @ 100 mls/hr IVPB BID [facility] Last Admin: 03/08/18 21:36 Dose: 100 mls/hr Insulin Aspart (Novolog Vial Sliding Scale -) [address] [facility]; Protocol Last Admin: 03/09/18 06:25 Dose: 4 units Insulin Detemir (Levemir Vial) [address] [facility] Last Admin: 03/08/18 22:09 Dose: 20 units Lisinopril (Prinivil) 30 mg NGT DAILY [facility] Last Admin: 03/08/18 09:25 Dose: 30 mg Methyl Salicylate (Felix-Seaman -) 1 applic TP Q8H PRN PRN Reason: BODY ACHES Metoprolol Tartrate (Lopressor -) 25 mg NGT BID [facility] Last Admin: 03/08/18 21:38 Dose: 25 mg Multi-Ingredient Ointment (Zinc Oxide) 1 applic TP BID [facility] Last Admin: 11/14/18 21:37 Dose: 1 applic Polyethylene Glycol (Miralax (For Daily Use) -) 17 gm NGT TID [facility] Last Admin: 03/09/18 06:24 Dose: 17 gm - Objective Vital Signs: Vital Signs Temperature 99.9 F H 03/09/18 06:00 Pulse Rate 84 03/09/18 06:00 Respiratory Rate 22 H 03/09/18 06:00 Blood Pressure 145/83 03/09/18 06:00 O2 Sat by Pulse Oximetry (%) 94 L 03/08/18 22:00 Constitutional: Yes: No Distress, Calm Neck: Yes: Supple Cardiovascular: Yes: Regular Rate and Rhythm Respiratory: Yes: Regular, Diminished, On Nasal O2 Gastrointestinal: Yes: Normal Bowel Sounds, Soft Edema: No Labs: CBC, BMP 03/08/18 05:30 03/08/18 05:30 INR, PTT INR 1.18 (0.83-1.09) H 02/28/18 20:06 - ....Imaging X-ray: Report Reviewed (No volvulus) Problem List - Problems (1) Elevated troponin Code(s): R74.8 - ABNORMAL LEVELS OF OTHER SERUM ENZYMES (2) Rapid atrial fibrillation Code(s): I48.91 - UNSPECIFIED ATRIAL FIBRILLATION (3) Diastolic dysfunction Code(s): I51.9 - HEART DISEASE, UNSPECIFIED (4) H/O: CVA (cerebrovascular accident) Code(s): Z86.73 - PRSNL HX OF TIA (TIA), AND CEREB INFRC W/O RESID DEFICITS (5) Hyperlipidemia Code(s): E78.5 - HYPERLIPIDEMIA, UNSPECIFIED Qualifiers: Hyperlipidemia type: pure hypercholesterolemia Qualified Code(s): E78.00 - Pure hypercholesterolemia, unspecified; E78.0 - Pure hypercholesterolemia (6) Hypertension Code(s): I10 - ESSENTIAL (PRIMARY) HYPERTENSION Qualifiers: Hypertension type: essential hypertension Qualified Code(s): I10 - Essential (primary) hypertension (7) Pneumonia Code(s): J18.9 - PNEUMONIA, UNSPECIFIED ORGANISM Qualifiers: Pneumonia type: due to unspecified organism Laterality: right Lung location: lower lobe of lung Qualified Code(s): J18.1 - Lobar pneumonia, unspecified organism (8) Toxic metabolic encephalopathy Code(s): G92 - TOXIC ENCEPHALOPATHY (9) Demand ischemia Code(s): I24.8 - OTHER FORMS OF ACUTE ISCHEMIC HEART DISEASE (10) Premature ventricular contraction Code(s): I49.3 - VENTRICULAR PREMATURE DEPOLARIZATION (11) Volvulus of descending colon Code(s): K56.2 - VOLVULUS Assessment/Plan 12/20/2017 Echo: Normal LV size and fxn, tr MR, TR 1. RLL aspiration PNA - HCAP resolving 2. Intermittent sigmoid volvulus post rectal tube decompression 3. LV Diastolic Dysfunction 4. Demand ischemia 5. Toxic-metabolic encephelopathy 6. 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 PAF->SR [id number] score 7 on Lovenox therapy 8. PVC, PAC 9. Hypernatremia resolved P:1. Completed empiric abx course to cover possible aspiration pneumonia-HCAP, free H20 repletion, replete K 2. Continue Lopressor 25 bid for rate-control, lisinopril 30 qd, ASA 81 qd, Lipitor 40 qd 3. Would transition Lovenox 100 bid to Eliquis 5 bid given that surgery recommends elective sigmoid colectomy after optimization 4. Inhaled bronchodilators standing and PRN,O2 to keep SpO2 >90% 5. Enteral feeds, transition to oral intake, await definitive repair as outpatient 6. DVT and GI prophylaxis
[2018-03-09] MEDS: ASPIRIN 81 MG CHEWABLE TABLETS NGT SCH (09:59)
[2018-03-09] MEDS: ESCITALOPRAM OXALATE 10 MG TABLET (FP) NGT SCH (09:59)
[2018-03-09] MEDS: FAMOTIDINE 20 MG/50 ML IVPB 20 MG/50 ML MG IVPB SCH ×2 (10:00→22:40)
[2018-03-09] MEDS: DOCUSATE NA 100 MG/10 ML UNIT-DOSE CUPS NGT SCH (10:00)
[2018-03-09] MEDS: METOPROLOL TARTRATE 25 MG TABLET (FP) NGT SCH ×2 (10:01→22:38)
[2018-03-09] MEDS: ENOXAPARIN NA (PORCINE) 100 MG/1 ML DISP.SYRIN SQ SCH (10:01)
[2018-03-09] MEDS: LISINOPRIL 10 MG TABLET (FP) NGT SCH (10:02)
[2018-03-09] MEDS: ZINC OXIDE 20% TOPICAL OINTMENT 30 GM TUBE TP SCH ×2 (10:08→23:30)
--- NOTE | 2018-03-09 10:57 | PN ---
Progress Note (short form) - Note Progress Note: awake alert responding to commands on NGT feeding no distress Vital Signs - 24 hr 03/08/18 03/08/18 03/08/18 14:00 18:00 21:00 Temperature 98.9 F Pulse Rate 77 85 Respiratory 20 Rate Blood Pressure 143/90 136/74 O2 Sat by Pulse 94 L Oximetry (%) 03/08/18 03/09/18 03/09/18 22:00 02:00 06:00 Temperature 98.5 F 98 F 99.9 F H Pulse Rate 88 90 84 Respiratory 26 H 20 22 H Rate Blood Pressure 139/89 136/78 145/83 O2 Sat by Pulse 94 L Oximetry (%) Current Medications Generic Name Dose Route Start Last Admin Trade Name Freq PRN Reason Stop Dose Admin Acetaminophen 650 mg 03/07/18 19:11 Tylenol - PO Q6H PRN FEVER Albuterol/Ipratropium 1 amp 03/07/18 20:00 03/09/18 08:05 Duoneb - NEB 1 amp RQID FLORIN Administration Apixaban 5 mg 03/09/18 22:00 Eliquis - PO BID FLORIN Aspirin 81 mg 03/08/18 10:00 03/09/18 09:59 Asa - NGT 81 mg DAILY FLORIN Administration Atorvastatin Calcium 40 mg 03/07/18 22:00 03/08/18 21:38 Lipitor - NGT 40 mg HS FLORIN Administration Docusate Sodium 200 mg 03/08/18 10:00 03/09/18 10:00 Colace Liquid - NGT 200 mg DAILY FLORIN Administration Escitalopram Oxalate 10 mg 03/08/18 10:00 03/09/18 09:59 Lexapro - NGT 10 mg DAILY FLORIN Administration Gabapentin 300 mg 03/07/18 22:00 03/09/18 06:24 Neurontin Oral Liquid - NGT 300 mg TID FLORIN Administration Famotidine/Sodium Chloride 20 mg in 50 mls @ 100 mls/hr 03/07/18 22:00 10:00 Pepcid 20 Mg Premixed Ivpb - IVPB 100 mls/hr BID FLORIN Administration Insulin Aspart 1 vial 03/07/18 22:00 03/09/18 06:25 Novolog Vial Sliding Scale - SQ 4 units ACHS FLORIN Administration Protocol Insulin Detemir 20 units 03/07/18 22:00 03/08/18 22:09 Levemir Vial SQ 20 units HS FLORIN Administration Lisinopril 30 mg 03/08/18 10:00 03/09/18 10:02 Prinivil NGT 30 mg DAILY FLORIN Administration Methyl Salicylate 1 applic 03/07/18 19:11 Felix-Seaman - TP Q8H PRN BODY ACHES Metoprolol Tartrate 25 mg 03/07/18 22:00 03/09/18 10:01 Lopressor - NGT 25 mg BID FLORIN Administration Multi-Ingredient Ointment 1 applic 03/07/18 22:00 03/09/18 10:08 Zinc Oxide TP 1 applic BID FLORIN Administration Polyethylene Glycol 17 gm 03/07/18 22:00 03/09/18 06:24 Miralax (For Daily Use) - NGT 17 gm TID FLORIN Administration Laboratory Results - last 24 hr 03/08/18 03/08/18 03/08/18 11:58 17:18 21:57 POC Glucometer 222 194 258 03/09/18 05:43 POC Glucometer 242 S1 S2 irregular Lungs decreased, ronchi ABd- soft, NT, BS+ No edema Sepsis, pneumonia,volvulus, pneumonia RLL --on NG feedings -- swallow follow up, may need MBS -- rate is controlled -- off iv antibiotics --- FUA noted -- still has rectal tube -- daughter concerned about thrush , will order Nystatin -- GI follow up -- as per Surgery-- schedule elective sigmoid colectomy as outpt Problem List - Problems (1) Demand ischemia Code(s): I24.8 - OTHER FORMS OF ACUTE ISCHEMIC HEART DISEASE (2) Elevated troponin Code(s): R74.8 - ABNORMAL LEVELS OF OTHER SERUM ENZYMES (3) Pneumonia Code(s): J18.9 - PNEUMONIA, UNSPECIFIED ORGANISM (4) Rapid atrial fibrillation Code(s): I48.91 - UNSPECIFIED ATRIAL FIBRILLATION (5) Sepsis Code(s): A41.9 - SEPSIS, UNSPECIFIED ORGANISM Qualifiers: Sepsis type: sepsis due to unspecified organism Qualified Code(s): A41.9 - Sepsis, unspecified organism
--- NOTE | 2018-03-09 14:29 | PN ---
Progress Note (short form) - Note Progress Note: NAD on NC O2. No acute events overnight. Intake & Output 03/06/18 03/07/18 03/08/18 03/09/18 23:59 23:59 23:59 23:59 Intake Total 475 195 5011 780 Output Total 1750 6689 429 7052 Balance -998 -684 100 -420 Weight 219 lb 5.759 oz 220 lb 9.6 oz Last Vital Signs Temp Pulse Resp BP Pulse Ox 100.2 F H 88 22 H 147/77 95 03/09/18 10:00 03/09/18 10:00 03/09/18 10:00 03/09/18 10:00 03/09/18 10:00 Active Medications Acetaminophen (Tylenol -) 650 mg PO Q6H PRN PRN Reason: FEVER Albuterol/Ipratropium (Duoneb -) 1 amp NEB RQID [facility] Last Admin: 03/09/18 12:03 Dose: 1 amp Apixaban (Eliquis -) 5 mg PO BID [facility] Aspirin (Asa -) 81 mg NGT DAILY [facility] Last Admin: 03/09/18 09:59 Dose: 81 mg Atorvastatin Calcium (Lipitor -) 40 mg NGT HS [facility] Last Admin: 03/08/18 21:38 Dose: 40 mg Docusate Sodium (Colace Liquid -) 200 mg NGT DAILY [facility] Last Admin: 03/09/18 10:00 Dose: 200 mg Escitalopram Oxalate (Lexapro -) 10 mg NGT DAILY [facility] Last Admin: 03/09/18 09:59 Dose: 10 mg Gabapentin (Neurontin Oral Liquid -) 300 mg NGT TID [facility] Last Admin: 03/09/18 13:38 Dose: 300 mg Famotidine/Sodium Chloride (Pepcid 20 Mg Premixed Ivpb -) 20 mg in 50 mls @ 100 mls/hr IVPB BID [facility] Last Admin: 03/09/18 10:00 Dose: 100 mls/hr Insulin Aspart (Novolog Vial Sliding Scale -) 1 vial SQ ACHS [facility]; Protocol Last Admin: 03/09/18 12:04 Dose: 4 units Insulin Detemir (Levemir Vial) 20 units SQ HS [facility] Last Admin: 03/08/18 22:09 Dose: 20 units Lisinopril (Prinivil) 30 mg NGT DAILY [facility] Last Admin: 03/09/18 10:02 Dose: 30 mg Methyl Salicylate (Felix-Seaman -) 1 applic TP Q8H PRN PRN Reason: BODY ACHES Metoprolol Tartrate (Lopressor -) 25 mg NGT BID [facility] Last Admin: 03/09/18 10:01 Dose: 25 mg Multi-Ingredient Ointment (Zinc Oxide) 1 applic TP BID [facility] Last Admin: 03/09/18 10:08 Dose: 1 applic Polyethylene Glycol (Miralax (For Daily Use) -) 17 gm NGT TID [facility] Last Admin: 03/09/18 13:40 Dose: 17 gm Constitutional: Yes: NAD Eyes: Yes: WNL HENT: Yes: WNL Neck: Yes: WNL Cardiovascular: Yes: Pulse Irregular, S1, S2 Respiratory: Yes: Scattered bilateral rhonchi Gastrointestinal: Yes: Normal Bowel Sounds, Soft Extremities: Yes: WNL Edema: No Labs: Laboratory Results - last 24 hr 03/08/18 03/08/18 03/09/18 17:18 21:57 05:43 POC Glucometer 194 258 242 03/09/18 11:19 POC Glucometer 245 Problem List - Problems (1) Hypoxemia Code(s): R09.02 - HYPOXEMIA (2) Sepsis Code(s): A41.9 - SEPSIS, UNSPECIFIED ORGANISM Qualifiers: Sepsis type: sepsis due to unspecified organism Qualified Code(s): A41.9 - Sepsis, unspecified organism (3) Volvulus of descending colon Code(s): K56.2 - VOLVULUS (4) COPD (chronic obstructive pulmonary disease) Code(s): J44.9 - CHRONIC OBSTRUCTIVE PULMONARY DISEASE, UNSPECIFIED Qualifiers: Emphysema type: unspecified (5) Diabetes Code(s): E11.9 - TYPE 2 DIABETES MELLITUS WITHOUT COMPLICATIONS (6) Diastolic dysfunction Code(s): I51.9 - HEART DISEASE, UNSPECIFIED (7) H/O: CVA (cerebrovascular accident) Code(s): Z86.73 - PRSNL HX OF TIA (TIA), AND CEREB INFRC W/O RESID DEFICITS (8) Hypertension Code(s): I10 - ESSENTIAL (PRIMARY) HYPERTENSION Qualifiers: Hypertension type: essential hypertension Qualified Code(s): I10 - Essential (primary) hypertension (9) Pneumonia Code(s): J18.9 - PNEUMONIA, UNSPECIFIED ORGANISM Qualifiers: Pneumonia type: due to unspecified organism Laterality: right Lung location: lower lobe of lung Qualified Code(s): J18.1 - Lobar pneumonia, unspecified organism (10) Respiratory distress Code(s): R06.00 - DYSPNEA, UNSPECIFIED (11) Hypokalemia Code(s): E87.6 - HYPOKALEMIA (12) Pneumonia Code(s): J18.9 - PNEUMONIA, UNSPECIFIED ORGANISM (13) Prolonged Q-T interval on ECG Code(s): R94.31 - ABNORMAL ELECTROCARDIOGRAM [ECG] [EKG] Assessment/Plan S/P Acute Hypoxic Respiratory Failure Pneumonia likely Aspiration Sigmoid Volvulus s/p Rectal Tube Decompression Sepsis Lactic Acidosis LV Diastolic Dysfunction +Troponins likely Demand Ischemia Paroxysmal Atrial Fibrillation h/o CVA - Off ABX - O2 to maintain saturation - Aspiration precautions - GI workup ongoing - rate control - AC with Sameer Patel
--- NOTE | 2018-03-09 14:43 | PN ---
Progress Note (short form) - Note Progress Note: transferred to telemetry no complaints alert Vital Signs Period Temp Pulse Resp BP Sys/Pham Pulse Ox Last 24 Hr 98 F-100.2 F 84-90 20-26 136-147/74-89 94-95 cor-rrr lungs clear abd soft,nt ext trace edema +folely +ngt CBC, BMP 03/08/18 05:30 03/08/18 05:30 Microbiology 02/28/18 20:25 Blood - Peripheral Venous Blood Culture - Final NO GROWTH AFTER 5 DAYS INCUBATION 02/28/18 20:25 Blood - Peripheral Venous Blood Culture - Final NO GROWTH AFTER 5 DAYS INCUBATION 03/03/18 06:00 Stool Clostridium difficile Antigen (AMY) - Final 03/03/18 06:00 Stool Clostridium difficile Toxin Assay - Final 03/01/18 20:30 Nares - Mrsa Screen - Right MRSA Screen - Final NO MRSA ISOLATED 03/01/18 20:30 Nares - Mrsa Screen - Left MRSA Screen - Final NO MRSA ISOLATED 02/28/18 22:53 Urine - Urine Clean Catch Urine Culture - Final NO GROWTH OBTAINED 03/01/18 11:20 Urine For Antigen Detection Legionella Antigen - Final 03/01/18 11:20 Urine For Antigen Detection Streptococcus pneumoniae Antigen (M - Final 02/28/18 23:30 Nasopharyngeal Swab Influenza Types A,B Antigen - Final 02/28/18 23:30 Nasopharyngeal Swab - Final a/p low grade temp- will remove owen RLL pneumonia-has completed 7 days zosyn, off antibiotics abdominal distention/volvulus- improved with rectal tube rapid afib- improved on meds d/w daughter and at bedside Problem List - Problems (1) Sepsis Code(s): A41.9 - SEPSIS, UNSPECIFIED ORGANISM Qualifiers: Sepsis type: sepsis due to unspecified organism Qualified Code(s): A41.9 - Sepsis, unspecified organism (2) Pneumonia Code(s): J18.9 - PNEUMONIA, UNSPECIFIED ORGANISM (3) Hypoxemia Code(s): R09.02 - HYPOXEMIA (4) COPD exacerbation Code(s): J44.1 - CHRONIC OBSTRUCTIVE PULMONARY DISEASE W (ACUTE) EXACERBATION (5) Rapid atrial fibrillation Code(s): I48.91 - UNSPECIFIED ATRIAL FIBRILLATION (6) Elevated troponin Code(s): R74.8 - ABNORMAL LEVELS OF OTHER SERUM ENZYMES (7) Prolonged Q-T interval on ECG Code(s): R94.31 - ABNORMAL ELECTROCARDIOGRAM [ECG] [EKG]
--- NOTE | 2018-03-09 19:19 | PN ---
GI Progress Note Subjective: No acute events No abdominal pain - Objective Vital Signs: Vital Signs Temperature 98.7 F 03/09/18 15:10 Pulse Rate 87 03/09/18 15:10 Respiratory Rate 20 03/09/18 15:10 Blood Pressure 138/91 03/09/18 15:10 O2 Sat by Pulse Oximetry (%) 95 03/09/18 10:00 Constitutional: Calm Eyes: No: Sclera Icterus Cardiovascular: Yes: Regular Rate and Rhythm Respiratory: Yes: Diminished (at bases b/l) Gastrointestinal Inspection: No: Distention ...Palpate: Yes: Soft ...Percussion: Yes: Tympanitic (mild tympany) ...Rectal Exam: Yes: Other (Rectal tube in place, flushed, some air and liquid stool expelled. rectal tube removed) Labs: CBC, BMP 03/08/18 05:30 03/08/18 05:30 INR, PTT INR 1.18 (0.83-1.09) H 02/28/18 20:06 Problem List - Problems (1) Volvulus of sigmoid colon Assessment/Plan: Rectal tube removed. Will check AXR in AM. If increased gaseous distention of sigmoid, will need rectal tube replaced Surgical follow-up Code(s): K56.2 - VOLVULUS
[2018-03-09] MEDS: ATORVASTATIN CA 40 MG TABLET (FP) NGT SCH (22:39)
[2018-03-09] MEDS: APIXABAN 5 MG TABLET PO SCH (22:39)
[2018-03-09] MEDS: INSULIN (LEVEMIR) 100 UNITS/ML UNITS SQ SCH (23:04)
[2018-03-10] MEDS: ACETAMINOPHEN 325 MG TABLET (FP) PO PRN (06:02)
[2018-03-10] MEDS: GABAPENTIN 250 MG/5 ML ORAL SOLUTION, 470 ML BOTTLE NGT SCH ×3 (06:03→23:42)
[2018-03-10] MEDS: POLYETHYLENE GLYCOL 3350 119 GM BTL NGT SCH ×3 (06:04→23:54)
[2018-03-10] MEDS: INSULIN SLIDING SCALE (NOVOLOG) 1 VIAL SQ SCH ×4 (06:33→23:54)
[2018-03-10 07:01] LABS: BASO % 0.6 % (0-2.0); EOS % 1.3 % (0-4.5); HEMATOCRIT 39.5 % (35.4-49); HEMOGLOBIN 13.4 GM/dL (11.7-16.9); LYMPH % 32.5 % (8-40); MCH 31.2 pg (25.7-33.7); MEAN PLT VOLUME 9.4 fl (7.5-11.1); MONO % 15.4 % (3.8-10.2); NEUT % 50.2 % (42.8-82.8); PLATELET COUNT 370 K/MM3 (134-434); RDW 14.7 % (11.9-15.9); WHITE BLOOD COUNT 8.7 K/mm3 (4.0-10.0)
[2018-03-10 07:46] LABS: ALBUMIN 2.6 g/dl (3.4-5.0); ALK PHOS 54 U/L (45-117); ANION GAP 10 MMOL/L (8-16); BILIRUBIN,TOTAL 0.5 mg/dL (0.2-1); BLOOD UREA NITROGEN 10 mg/dL (7-18); CALCIUM 8.7 mg/dL (8.5-10.1); CHLORIDE 98 mmol/L (98-107); CO2 30 mmol/L (21-32); CREATININE 0.8 mg/dL (0.55-1.3); GLUCOSE,RANDOM 257 mg/dL (74-106); MAGNESIUM 2.2 mg/dL (1.8-2.4); POTASSIUM 4.5 mmol/L (3.5-5.1); SGOT/AST 24 U/L (15-37); SGPT/ALT 21 U/L (13-61); SODIUM 138 mmol/L (136-145)
[2018-03-10] MEDS: ALBUTEROL SO4 2.5/IPRATROPIUM 0.5 INH SOL 3 ML VIAL.NEB. NEB SCH ×4 (07:53→21:30)
[2018-03-10] MEDS: ZINC OXIDE 20% TOPICAL OINTMENT 30 GM TUBE TP SCH ×2 (10:05→23:54)
[2018-03-10] MEDS: ESCITALOPRAM OXALATE 10 MG TABLET (FP) NGT SCH (10:05)
[2018-03-10] MEDS: APIXABAN 5 MG TABLET PO SCH ×2 (10:05→23:42)
[2018-03-10] MEDS: ASPIRIN 81 MG CHEWABLE TABLETS NGT SCH (10:05)
[2018-03-10] MEDS: LISINOPRIL 10 MG TABLET (FP) NGT SCH (10:05)
[2018-03-10] MEDS: METOPROLOL TARTRATE 25 MG TABLET (FP) NGT SCH ×2 (10:05→23:42)
[2018-03-10] MEDS: FAMOTIDINE 20 MG/50 ML IVPB 20 MG/50 ML MG IVPB SCH ×2 (10:05→23:41)
[2018-03-10] MEDS ORDERED: PT OWN MED DRAWER 7, Y5N ONE ×2 (10:09→23:45)
[2018-03-10] MEDS: DOCUSATE NA 100 MG/10 ML UNIT-DOSE CUPS NGT SCH (10:10)
--- NOTE | 2018-03-10 10:48 | PN ---
Progress Note, Physician History of Present Illness: Remains on NC O2 and enteral feeds after rectal tube d/baldev plan for surveillance AXR, SR with PAC/PVC on Lopressor, abd less distended, more interactive today. - Current Medication List Current Medications: Active Medications Acetaminophen (Tylenol -) 650 mg PO Q6H PRN PRN Reason: FEVER Last Admin: 03/10/18 06:02 Dose: 650 mg Albuterol/Ipratropium (Duoneb -) 1 amp NEB RQID [facility] Last Admin: 03/10/18 07:53 Dose: 1 amp Apixaban (Eliquis -) 5 mg PO BID [facility] Last Admin: 03/10/18 10:05 Dose: 5 mg Aspirin (Asa -) 81 mg NGT DAILY [facility] Last Admin: 03/10/18 10:05 Dose: 81 mg Atorvastatin Calcium (Lipitor -) 40 mg NGT HS [facility] Last Admin: 03/09/18 22:39 Dose: 40 mg Docusate Sodium (Colace Liquid -) 200 mg NGT DAILY [facility] Last Admin: 03/10/18 10:10 Dose: 200 mg Escitalopram Oxalate (Lexapro -) 10 mg NGT DAILY [facility] Last Admin: 03/10/18 10:05 Dose: 10 mg Gabapentin (Neurontin Oral Liquid -) 300 mg NGT TID [facility] Last Admin: 03/10/18 06:03 Dose: 300 mg Famotidine/Sodium Chloride (Pepcid 20 Mg Premixed Ivpb -) 20 mg in 50 mls @ 100 mls/hr IVPB BID [facility] Last Admin: 03/10/18 10:05 Dose: 100 mls/hr Insulin Aspart (Novolog Vial Sliding Scale -) [address] [facility]; Protocol Last Admin: 03/10/18 06:33 Dose: 6 units Insulin Detemir (Levemir Vial) 20 units SQ [facility] Last Admin: 03/09/18 23:04 Dose: 20 units Lisinopril (Prinivil) 30 mg NGT DAILY [facility] Last Admin: 03/10/18 10:05 Dose: 30 mg Methyl Salicylate (Felix-Seaman -) 1 applic TP Q8H PRN PRN Reason: BODY ACHES Metoprolol Tartrate (Lopressor -) 25 mg NGT BID [facility] Last Admin: 03/10/18 10:05 Dose: 25 mg Multi-Ingredient Ointment (Zinc Oxide) 1 applic TP BID [facility] Last Admin: 03/10/18 10:05 Dose: 1 applic Polyethylene Glycol (Miralax (For Daily Use) -) 17 gm NGT TID [facility] Last Admin: 03/10/18 06:04 Dose: 17 gm - Objective Vital Signs: Vital Signs Temperature 100.6 F H 03/10/18 05:56 Pulse Rate 104 H 03/10/18 05:56 Respiratory Rate 22 H 03/10/18 05:56 Blood Pressure 151/89 03/10/18 05:56 O2 Sat by Pulse Oximetry (%) 94 L 03/09/18 22:20 Constitutional: Yes: No Distress, Calm Neck: Yes: Supple Cardiovascular: Yes: Regular Rate and Rhythm Respiratory: Yes: Regular, Diminished, On Nasal O2 Gastrointestinal: Yes: Normal Bowel Sounds, Soft Edema: No Labs: CBC, BMP 03/10/18 05:30 03/10/18 05:30 INR, PTT INR 1.18 (0.83-1.09) H 02/28/18 20:06 - ....Imaging EKG: Report Reviewed (Tele: SR with PAC) Problem List - Problems (1) Elevated troponin Code(s): R74.8 - ABNORMAL LEVELS OF OTHER SERUM ENZYMES (2) Rapid atrial fibrillation Code(s): I48.91 - UNSPECIFIED ATRIAL FIBRILLATION (3) Diastolic dysfunction Code(s): I51.9 - HEART DISEASE, UNSPECIFIED (4) H/O: CVA (cerebrovascular accident) Code(s): Z86.73 - PRSNL HX OF TIA (TIA), AND CEREB INFRC W/O RESID DEFICITS (5) Hyperlipidemia Code(s): E78.5 - HYPERLIPIDEMIA, UNSPECIFIED Qualifiers: Hyperlipidemia type: pure hypercholesterolemia Qualified Code(s): E78.00 - Pure hypercholesterolemia, unspecified; E78.0 - Pure hypercholesterolemia (6) Hypertension Code(s): I10 - ESSENTIAL (PRIMARY) HYPERTENSION Qualifiers: Hypertension type: essential hypertension Qualified Code(s): I10 - Essential (primary) hypertension (7) Pneumonia Code(s): J18.9 - PNEUMONIA, UNSPECIFIED ORGANISM Qualifiers: Pneumonia type: due to unspecified organism Laterality: right Lung location: lower lobe of lung Qualified Code(s): J18.1 - Lobar pneumonia, unspecified organism (8) Toxic metabolic encephalopathy Code(s): G92 - TOXIC ENCEPHALOPATHY (9) Demand ischemia Code(s): I24.8 - OTHER FORMS OF ACUTE ISCHEMIC HEART DISEASE (10) Premature ventricular contraction Code(s): I49.3 - VENTRICULAR PREMATURE DEPOLARIZATION (11) Volvulus of descending colon Code(s): K56.2 - VOLVULUS Assessment/Plan 12/20/2017 Echo: Normal LV size and fxn, tr MR, TR 1. RLL aspiration PNA - HCAP resolving 2. Intermittent sigmoid volvulus post rectal tube decompression since removed 3. LV Diastolic Dysfunction 4. Demand ischemia 5. Toxic-metabolic encephelopathy 6. 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 PAF->SR [id number] score 7 on Eliquis 8. PVC, PAC 9. Hypernatremia resolved P:1. Completed empiric abx course to cover possible aspiration pneumonia-HCAP, free H20 repletion, replete K 2. Continue Lopressor 25 bid for rate-control, lisinopril 30 qd, ASA 81 qd, Lipitor 40 qd 3. Continue Eliquis 5 bid given that surgery recommends elective sigmoid colectomy after optimization 4. Inhaled bronchodilators standing and PRN,O2 to keep SpO2 >90% 5. Enteral feeds, transition to oral intake, await definitive repair as outpatient 6. DVT and GI prophylaxis, d/c telemetry
--- NOTE | 2018-03-10 11:18 | PN ---
Progress Note (short form) - Note Progress Note: alert, +NGT low grade temps NAD, looks comfortable no complaints Vital Signs Period Temp Pulse Resp BP Sys/Pham Pulse Ox Last 24 Hr 98.2 F-100.6 F 87-105 20-29 136-162/78-91 94-95 cor-rrr lungs decreased bs at bases abd soft,nt +BS ext no edema CBC, BMP 03/10/18 05:30 03/10/18 05:30 Microbiology 02/28/18 20:25 Blood - Peripheral Venous Blood Culture - Final NO GROWTH AFTER 5 DAYS INCUBATION 02/28/18 20:25 Blood - Peripheral Venous Blood Culture - Final NO GROWTH AFTER 5 DAYS INCUBATION 03/03/18 06:00 Stool Clostridium difficile Antigen (AMY) - Final 03/03/18 06:00 Stool Clostridium difficile Toxin Assay - Final 03/01/18 20:30 Nares - Mrsa Screen - Right MRSA Screen - Final NO MRSA ISOLATED 03/01/18 20:30 Nares - Mrsa Screen - Left MRSA Screen - Final NO MRSA ISOLATED 02/28/18 22:53 Urine - Urine Clean Catch Urine Culture - Final NO GROWTH OBTAINED 03/01/18 11:20 Urine For Antigen Detection Legionella Antigen - Final 03/01/18 11:20 Urine For Antigen Detection Streptococcus pneumoniae Antigen (M - Final 02/28/18 23:30 Nasopharyngeal Swab Influenza Types A,B Antigen - Final 02/28/18 23:30 Nasopharyngeal Swab - Final Current Medications Acetaminophen (Tylenol -) 650 mg PO Q6H PRN PRN Reason: FEVER Last Admin: 03/10/18 06:02 Dose: 650 mg Albuterol/Ipratropium (Duoneb -) 1 amp NEB RQID [facility] Last Admin: 03/10/18 07:53 Dose: 1 amp Apixaban (Eliquis -) 5 mg PO BID [facility] Last Admin: 03/10/18 10:05 Dose: 5 mg Aspirin (Asa -) 81 mg NGT DAILY [facility] Last Admin: 03/10/18 10:05 Dose: 81 mg Atorvastatin Calcium (Lipitor -) 40 mg NGT HS [facility] Last Admin: 03/09/18 22:39 Dose: 40 mg Docusate Sodium (Colace Liquid -) 200 mg NGT DAILY [facility] Last Admin: 03/10/18 10:10 Dose: 200 mg Escitalopram Oxalate (Lexapro -) 10 mg NGT DAILY [facility] Last Admin: 03/10/18 10:05 Dose: 10 mg Gabapentin (Neurontin Oral Liquid -) 300 mg NGT TID [facility] Last Admin: 03/10/18 06:03 Dose: 300 mg Famotidine/Sodium Chloride (Pepcid 20 Mg Premixed Ivpb -) 20 mg in 50 mls @ 100 mls/hr IVPB BID [facility] Last Admin: 03/10/18 10:05 Dose: 100 mls/hr Insulin Aspart (Novolog Vial Sliding Scale -) 1 vial SQ ACHS [facility]; Protocol Last Admin: 03/10/18 06:33 Dose: 6 units Insulin Detemir (Levemir Vial) 20 units SQ HS [facility] Last Admin: 03/09/18 23:04 Dose: 20 units Lisinopril (Prinivil) 30 mg NGT DAILY [facility] Last Admin: 03/10/18 10:05 Dose: 30 mg Methyl Salicylate (Felix-Seaman -) 1 applic TP Q8H PRN PRN Reason: BODY ACHES Metoprolol Tartrate (Lopressor -) 25 mg NGT BID [facility] Last Admin: 03/10/18 10:05 Dose: 25 mg Multi-Ingredient Ointment (Zinc Oxide) 1 applic TP BID [facility] Last Admin: 03/10/18 10:05 Dose: 1 applic Polyethylene Glycol (Miralax (For Daily Use) -) 17 gm NGT TID [facility] Last Admin: 03/10/18 06:04 Dose: 17 gm a/p low grade temp- to monitor, owen d/baldev yesterday willl repeat cxray and obtain blood cultures if he continues to have fevers RLL pneumonia-has completed 7 days zosyn, off antibiotics abdominal distention/volvulus- improved , rectal tube d/baldev yesterday afib- improved on meds Problem List - Problems (1) Sepsis Code(s): A41.9 - SEPSIS, UNSPECIFIED ORGANISM Qualifiers: Sepsis type: sepsis due to unspecified organism Qualified Code(s): A41.9 - Sepsis, unspecified organism (2) Pneumonia Code(s): J18.9 - PNEUMONIA, UNSPECIFIED ORGANISM (3) Hypoxemia Code(s): R09.02 - HYPOXEMIA (4) COPD exacerbation Code(s): J44.1 - CHRONIC OBSTRUCTIVE PULMONARY DISEASE W (ACUTE) EXACERBATION (5) Rapid atrial fibrillation Code(s): I48.91 - UNSPECIFIED ATRIAL FIBRILLATION (6) Elevated troponin Code(s): R74.8 - ABNORMAL LEVELS OF OTHER SERUM ENZYMES (7) Prolonged Q-T interval on ECG Code(s): R94.31 - ABNORMAL ELECTROCARDIOGRAM [ECG] [EKG]
--- NOTE | 2018-03-10 11:37 | PN ---
Progress Note (short form) - Note Progress Note: pt seen/ examined in icu all f/u noted/ appreciated. alert/ awake denies pain. on high flow oxygen HR better controlled ngt + had pulled yesterday not started on feeds yet-- today Vital Signs Temp 98.6 F 03/06/18 10:00 Pulse 98 H 03/06/18 10:00 Resp 29 H 03/06/18 10:00 BP 144/92 03/06/18 10:00 Pulse Ox 98 03/06/18 08:39 Intake & Output 03/05/18 03/05/18 03/06/18 11:59 23:59 11:59 Intake Total 1050 375.6 148 Output Total 600 1700 200 Balance 450 -1324.4 -52 Weight 222 lb 6.4 oz 219 lb 5.759 oz Intake: IV 800 85.6 48 1/2 Normal Saline 1,000 800 ml @ 100 mls/hr IVPB ASDIR [facility] with KCl - 20 Meq Rx#:[id number] Cardizem Injection - 125 85.6 48 mg In D5w - 100 ml @ 5 MG /HR 5 mls/hr IVPB TITR [facility] Rx#:[id number] IVPB 250 250 100 Tube Irrigant 40 0 Output: Urine 600 1700 200 Davis 600 1700 200 Other: Voiding Method Indwelling Catheter Indwelling Catheter Indwelling Catheter Bowel Movement No Yes: small, liquid around rectal tube Weight Measurement Method Built in [facility] Active Medications Acetaminophen (Tylenol -) 650 mg PO Q6H PRN PRN Reason: FEVER Last Admin: 03/03/18 17:27 Dose: 650 mg Albuterol/Ipratropium (Duoneb -) 1 amp NEB RQID [facility] Last Admin: 03/06/18 07:35 Dose: 1 amp Aspirin (Asa -) 81 mg PO DAILY [facility] Last Admin: 03/06/18 09:43 Dose: 81 mg Atorvastatin Calcium (Lipitor -) 40 mg PO HS [facility] Last Admin: 03/05/18 23:20 Dose: Not Given Clotrimazole (Clotrimazole) 1 applic TP BID [facility] Last Admin: 03/05/18 23:10 Dose: 1 applic Docusate Sodium (Colace -) 200 mg PO DAILY [facility] Last Admin: 03/06/18 09:44 Dose: Not Given Enoxaparin Sodium (Lovenox -) 100 mg SQ BID [facility] Last Admin: 03/06/18 10:02 Dose: 100 mg Escitalopram Oxalate (Lexapro -) 10 mg PO DAILY [facility] Last Admin: 03/06/18 09:44 Dose: 10 mg Gabapentin (Neurontin -) 300 mg PO TID [facility] Last Admin: 03/06/18 06:44 Dose: Not Given Piperacillin Sod/Tazobactam (Sod 4.5 gm/ Dextrose) 100 mls @ 200 mls/hr IVPB Q8H-IV [facility]; Protocol Last Admin: 03/06/18 09:50 Dose: 200 mls/hr Potassium Chloride 20 meq/ (Sodium Chloride) 1,010 mls @ 100 mls/hr IVPB ASDIR [facility] Last Admin: 03/05/18 16:30 Dose: Not Given Diltiazem HCl 125 mg/ Dextrose 125 mls @ 5 mls/hr IVPB TITR [facility]; Protocol Last Admin: 03/05/18 17:50 Dose: 6 mg/hr, 6 mls/hr Famotidine/Sodium Chloride (Pepcid 20 Mg Premixed Ivpb -) 20 mg in 50 mls @ 100 mls/hr IVPB BID [facility] Last Admin: 03/06/18 10:01 Dose: 100 mls/hr Potassium Phosphate 15 mm/ (Sodium Chloride) 255 mls @ 63.75 mls/hr IVPB ONCE ONE Stop: 03/06/18 12:59 Last Admin: 03/06/18 09:39 Dose: 63.75 mls/hr Insulin Aspart (Novolog Vial Sliding Scale -) 1 vial SQ ACHS [facility]; Protocol Last Admin: 03/06/18 06:44 Dose: Not Given Insulin Detemir (Levemir Vial) 20 units SQ HS [facility] Last Admin: 03/05/18 21:19 Dose: Not Given Lisinopril (Prinivil) 30 mg PO DAILY [facility] Last Admin: 03/06/18 10:00 Dose: 30 mg Methyl Salicylate (Felix-Seaman -) 1 applic TP Q8H PRN PRN Reason: BODY ACHES Metoprolol Tartrate (Lopressor Injection -) 5 mg IVPUSH Q6H-IV [facility] Last Admin: 03/06/18 09:41 Dose: 5 mg Multi-Ingredient Ointment (Zinc Oxide) 1 applic TP BID [facility] Last Admin: 03/05/18 21:12 Dose: 1 applic Senna (Senna -) 2 tab PO HS [facility] Last Admin: 03/05/18 23:20 Dose: Not Given CBC, BMP 03/06/18 05:30 03/06/18 05:30 Microbiology 02/28/18 20:25 Blood Culture - Final Blood - Peripheral Venous NO GROWTH AFTER 5 DAYS INCUBATION 02/28/18 20:25 Blood Culture - Final Blood - Peripheral Venous NO GROWTH AFTER 5 DAYS INCUBATION Physical Exam Constitutional: Yes:alert / awake. ngt + Neck: Yes: Supple. no jvd Cardiovascular: Yes: Irregular Respiratory: Yes: Regular, Diminished Gastrointestinal: Yes: soft/ non tender Edema: No. Davis / rectal tube + a/p volvulus pneumonia fever rapid afib-- better Uncontrolled diabetes--better electrolyte imbalance Better continue present care abx monitor labs/ lytes surgery/ gi on case-- start on feeding / po meds when cleared by gi / surgery-- anticipate today change cardizem drip to po continue close monitoring will follow discussed with nursing staff also Problem List - Problems (1) Demand ischemia Code(s): I24.8 - OTHER FORMS OF ACUTE ISCHEMIC HEART DISEASE (2) Elevated troponin Code(s): R74.8 - ABNORMAL LEVELS OF OTHER SERUM ENZYMES (3) Hypokalemia Code(s): E87.6 - HYPOKALEMIA (4) Pneumonia Code(s): J18.9 - PNEUMONIA, UNSPECIFIED ORGANISM (5) Rapid atrial fibrillation Code(s): I48.91 - UNSPECIFIED ATRIAL FIBRILLATION (6) Volvulus of descending colon Code(s): K56.2 - VOLVULUS (7) Diabetes Code(s): E11.9 - TYPE 2 DIABETES MELLITUS WITHOUT COMPLICATIONS (8) Fecal retention Code(s): K59.00 - CONSTIPATION, UNSPECIFIED (9) H/O: CVA (cerebrovascular accident) Code(s): Z86.73 - PRSNL HX OF TIA (TIA), AND CEREB INFRC W/O RESID DEFICITS
--- NOTE | 2018-03-10 11:38 | PN ---
Progress Note (short form) - Note Progress Note: pt seen/ examined . chart reviewed. all f/u noted awake/ comfortable no distress denies pain rectal tube taken out yesterday low grade temp Vital Signs Temp 100.6 F H 03/10/18 05:56 Pulse 104 H 03/10/18 05:56 Resp 22 H 03/10/18 05:56 BP 151/89 03/10/18 05:56 Pulse Ox 94 L 03/09/18 22:20 Intake & Output 03/09/18 03/09/18 03/10/18 11:59 23:59 11:59 Intake Total 543 972 0210 Output Total 600 601 Balance 206 102 3054 Intake: IVPB 200 100 Tube Feeding 480 320 480 Tube Irrigant 300 320 420 Output: Urine 600 601 Davis 600 600 Void 1 Other: Voiding Method Indwelling Catheter Incontinent Active Medications Acetaminophen (Tylenol -) 650 mg PO Q6H PRN PRN Reason: FEVER Last Admin: 03/10/18 06:02 Dose: 650 mg Albuterol/Ipratropium (Duoneb -) 1 amp NEB RQID [facility] Last Admin: 03/10/18 11:31 Dose: 1 amp Apixaban (Eliquis -) 5 mg PO BID [facility] Last Admin: 03/10/18 10:05 Dose: 5 mg Aspirin (Asa -) 81 mg NGT DAILY [facility] Last Admin: 03/10/18 10:05 Dose: 81 mg Atorvastatin Calcium (Lipitor -) 40 mg NGT HS [facility] Last Admin: 03/09/18 22:39 Dose: 40 mg Docusate Sodium (Colace Liquid -) 200 mg NGT DAILY [facility] Last Admin: 03/10/18 10:10 Dose: 200 mg Escitalopram Oxalate (Lexapro -) 10 mg NGT DAILY [facility] Last Admin: 03/10/18 10:05 Dose: 10 mg Gabapentin (Neurontin Oral Liquid -) 300 mg NGT TID [facility] Last Admin: 03/10/18 06:03 Dose: 300 mg Famotidine/Sodium Chloride (Pepcid 20 Mg Premixed Ivpb -) 20 mg in 50 mls @ 100 mls/hr IVPB BID [facility] Last Admin: 03/10/18 10:05 Dose: 100 mls/hr Insulin Aspart (Novolog Vial Sliding Scale -) 1 vial SQ ACHS [facility]; Protocol Last Admin: 03/10/18 06:33 Dose: 6 units Insulin Detemir (Levemir Vial) 20 units SQ HS [facility] Last Admin: 03/09/18 23:04 Dose: 20 units Lisinopril (Prinivil) 30 mg NGT DAILY [facility] Last Admin: 03/10/18 10:05 Dose: 30 mg Methyl Salicylate (Felix-Seaman -) 1 applic TP Q8H PRN PRN Reason: BODY ACHES Metoprolol Tartrate (Lopressor -) 25 mg NGT BID [facility] Last Admin: 03/10/18 10:05 Dose: 25 mg Multi-Ingredient Ointment (Zinc Oxide) 1 applic TP BID [facility] Last Admin: 03/10/18 10:05 Dose: 1 applic Polyethylene Glycol (Miralax (For Daily Use) -) 17 gm NGT TID [facility] Last Admin: 03/10/18 06:04 Dose: 17 gm CBC, BMP 03/10/18 05:30 03/10/18 05:30 Physical awake/ comfortable ngt + S1 S2 irregular Lungs decreased, ronchi ABd- soft, NT, BS+ No edema a/p Sepsis, volvulus, pneumonia RLL afib diabetes --on NG feedings ---- rate is controlled -- off iv antibiotics-- low grade fever --- monitor lytes/ bgm - bedside physical therapy - will follow -discussed with nursing staff - condition improved but remained gaurded - will follow Problem List - Problems (1) Demand ischemia Code(s): I24.8 - OTHER FORMS OF ACUTE ISCHEMIC HEART DISEASE (2) Elevated troponin Code(s): R74.8 - ABNORMAL LEVELS OF OTHER SERUM ENZYMES (3) Hypokalemia Code(s): E87.6 - HYPOKALEMIA (4) Pneumonia Code(s): J18.9 - PNEUMONIA, UNSPECIFIED ORGANISM (5) Rapid atrial fibrillation Code(s): I48.91 - UNSPECIFIED ATRIAL FIBRILLATION (6) Volvulus of descending colon Code(s): K56.2 - VOLVULUS (7) Diabetes Code(s): E11.9 - TYPE 2 DIABETES MELLITUS WITHOUT COMPLICATIONS (8) Fecal retention Code(s): K59.00 - CONSTIPATION, UNSPECIFIED (9) H/O: CVA (cerebrovascular accident) Code(s): Z86.73 - PRSNL HX OF TIA (TIA), AND CEREB INFRC W/O RESID DEFICITS
--- NOTE | 2018-03-10 11:54 | PN ---
Progress Note, Physician History of Present Illness: PULMONARY DROWSY,-RESP DISTRESS - Current Medication List Current Medications: Active Medications Acetaminophen (Tylenol -) 650 mg PO Q6H PRN PRN Reason: FEVER Last Admin: 03/10/18 06:02 Dose: 650 mg Albuterol/Ipratropium (Duoneb -) 1 amp NEB RQID [facility] Last Admin: 03/10/18 11:31 Dose: 1 amp Apixaban (Eliquis -) 5 mg PO BID [facility] Last Admin: 03/10/18 10:05 Dose: 5 mg Aspirin (Asa -) 81 mg NGT DAILY [facility] Last Admin: 03/10/18 10:05 Dose: 81 mg Atorvastatin Calcium (Lipitor -) 40 mg NGT HS [facility] Last Admin: 03/09/18 22:39 Dose: 40 mg Docusate Sodium (Colace Liquid -) 200 mg NGT DAILY [facility] Last Admin: 03/10/18 10:10 Dose: 200 mg Escitalopram Oxalate (Lexapro -) 10 mg NGT DAILY [facility] Last Admin: 03/10/18 10:05 Dose: 10 mg Gabapentin (Neurontin Oral Liquid -) 300 mg NGT TID [facility] Last Admin: 03/10/18 06:03 Dose: 300 mg Famotidine/Sodium Chloride (Pepcid 20 Mg Premixed Ivpb -) 20 mg in 50 mls @ 100 mls/hr IVPB BID [facility] Last Admin: 03/10/18 10:05 Dose: 100 mls/hr Insulin Aspart (Novolog Vial Sliding Scale -) 1 vial SQ [facility]; Protocol Last Admin: 03/10/18 06:33 Dose: 6 units Insulin Detemir (Levemir Vial) 20 units SQ [facility] Last Admin: 03/09/18 23:04 Dose: 20 units Lisinopril (Prinivil) 30 mg NGT DAILY [facility] Last Admin: 03/10/18 10:05 Dose: 30 mg Methyl Salicylate (Felix-Seaman -) 1 applic TP Q8H PRN PRN Reason: BODY ACHES Metoprolol Tartrate (Lopressor -) 25 mg NGT BID [facility] Last Admin: 03/10/18 10:05 Dose: 25 mg Multi-Ingredient Ointment (Zinc Oxide) 1 applic TP BID [facility] Last Admin: 03/10/18 10:05 Dose: 1 applic Polyethylene Glycol (Miralax (For Daily Use) -) 17 gm NGT TID [facility] Last Admin: 03/10/18 06:04 Dose: 17 gm - Objective Vital Signs: Vital Signs Temperature 100.6 F H 03/10/18 05:56 Pulse Rate 104 H 03/10/18 05:56 Respiratory Rate 22 H 03/10/18 05:56 Blood Pressure 151/89 03/10/18 05:56 O2 Sat by Pulse Oximetry (%) 94 L 03/09/18 22:20 Constitutional: Yes: Well Nourished, Other (DROWSY) Eyes: Yes: WNL HENT: Yes: WNL Neck: Yes: WNL Cardiovascular: Yes: Pulse Irregular, S1, S2 Respiratory: Yes: Diminished, Rhonchi (FEW RHONCHI) Gastrointestinal: Yes: Normal Bowel Sounds, Soft Extremities: Yes: WNL Edema: Yes Labs: CBC, BMP 03/10/18 05:30 03/10/18 05:30 INR, PTT INR 1.18 (0.83-1.09) H 02/28/18 20:06 Problem List - Problems (1) Hypoxemia Code(s): R09.02 - HYPOXEMIA (2) Sepsis Code(s): A41.9 - SEPSIS, UNSPECIFIED ORGANISM Qualifiers: Sepsis type: sepsis due to unspecified organism Qualified Code(s): A41.9 - Sepsis, unspecified organism (3) Volvulus of descending colon Code(s): K56.2 - VOLVULUS (4) COPD (chronic obstructive pulmonary disease) Code(s): J44.9 - CHRONIC OBSTRUCTIVE PULMONARY DISEASE, UNSPECIFIED Qualifiers: Emphysema type: unspecified (5) Diabetes Code(s): E11.9 - TYPE 2 DIABETES MELLITUS WITHOUT COMPLICATIONS (6) Diastolic dysfunction Code(s): I51.9 - HEART DISEASE, UNSPECIFIED (7) H/O: CVA (cerebrovascular accident) Code(s): Z86.73 - PRSNL HX OF TIA (TIA), AND CEREB INFRC W/O RESID DEFICITS (8) Hypertension Code(s): I10 - ESSENTIAL (PRIMARY) HYPERTENSION Qualifiers: Hypertension type: essential hypertension Qualified Code(s): I10 - Essential (primary) hypertension (9) Pneumonia Code(s): J18.9 - PNEUMONIA, UNSPECIFIED ORGANISM Qualifiers: Pneumonia type: due to unspecified organism Laterality: right Lung location: lower lobe of lung Qualified Code(s): J18.1 - Lobar pneumonia, unspecified organism (10) Respiratory distress Code(s): R06.00 - DYSPNEA, UNSPECIFIED (11) Hypokalemia Code(s): E87.6 - HYPOKALEMIA (12) Pneumonia Code(s): J18.9 - PNEUMONIA, UNSPECIFIED ORGANISM (13) Prolonged Q-T interval on ECG Code(s): R94.31 - ABNORMAL ELECTROCARDIOGRAM [ECG] [EKG] Assessment/Plan ASSESSMENT AND PLAN: s/p Acute Hypoxic Respiratory Failure Pneumonia likely Aspiration Sigmoid Volvulus s/p Rectal Tube Decompression Sepsis Lactic Acidosis LV Diastolic Dysfunction +Troponins likely Demand Ischemia Paroxysmal Atrial Fibrillation h/o CVA - antibiotics - nasal cannula - aspiration precautions - rectal tube per GI - rate control - anticoagulation - DVT prophylaxis DR MIGUEL
--- NOTE | 2018-03-10 12:47 | PN ---
GI Progress Note Subjective: No acute events Patient found awake. Denies abdominal pain - Objective Vital Signs: Vital Signs Temperature 100.6 F H 03/10/18 05:56 Pulse Rate 104 H 03/10/18 05:56 Respiratory Rate 22 H 03/10/18 05:56 Blood Pressure 151/89 03/10/18 05:56 O2 Sat by Pulse Oximetry (%) 94 L 03/09/18 22:20 Constitutional: Calm Eyes: No: Sclera Icterus Cardiovascular: Yes: Tachycardia Respiratory: Yes: Diminished (at bases bilaterally) Gastrointestinal Inspection: No: Distention ...Auscultate: Yes: Normoactive Bowel Sounds ...Palpate: Yes: Soft ...Percussion: No: Tympanitic Edema: No (No LE edema) Neurological: Yes: Alert Labs: CBC, BMP 03/10/18 05:30 03/10/18 05:30 INR, PTT INR 1.18 (0.83-1.09) H 02/28/18 20:06 Hepatic Panel Total Bilirubin 0.5 mg/dL (0.2-1) 03/10/18 05:30 AST 24 U/L (15-37) 03/10/18 05:30 ALT 21 U/L (13-61) 03/10/18 05:30 Alkaline Phosphatase 54 U/L (45-117) 03/10/18 05:30 Albumin 2.6 g/dl (3.4-5.0) L 03/10/18 05:30 Problem List - Problems (1) Volvulus of sigmoid colon Assessment/Plan: Atonic sigmoid colon Abdomen remains soft, however with rectal tube tube removed, more tympanitic on exam: Awaiting AXR today Will need surgical follow-up. Discussed with nurse to recall surgery Not a definitive therapy, but may need periodic rectal tube decompression Continue bowel regimen Code(s): K56.2 - VOLVULUS
[2018-03-10] MEDS ORDERED: INSULIN (NOVOLOG) ASPART 100 UNITS/ML 10ML VIAL ONE (14:47)
[2018-03-10] MEDS: ATORVASTATIN CA 40 MG TABLET (FP) NGT SCH (23:41)
[2018-03-11] MEDS ORDERED: PT OWN MED DRAWER 7, Y5N ONE ×2 (01:25→14:20)
[2018-03-11] MEDS: ACETAMINOPHEN 325 MG TABLET (FP) PO PRN ×2 (04:25→14:10)
[2018-03-11] MEDS: GABAPENTIN 250 MG/5 ML ORAL SOLUTION, 470 ML BOTTLE NGT SCH (06:58)
[2018-03-11] MEDS: INSULIN SLIDING SCALE (NOVOLOG) 1 VIAL SQ SCH ×4 (07:02→22:57)
[2018-03-11] MEDS: POLYETHYLENE GLYCOL 3350 119 GM BTL NGT SCH (07:02)
[2018-03-11] MEDS: ALBUTEROL SO4 2.5/IPRATROPIUM 0.5 INH SOL 3 ML VIAL.NEB. NEB SCH ×5 (08:45→20:10)
--- NOTE | 2018-03-11 09:40 | PN ---
Progress Note, Physician History of Present Illness: PULMONARY LETHARGIC,-RESP DISTRESS - Current Medication List Current Medications: Active Medications Acetaminophen (Tylenol -) 650 mg PO Q6H PRN PRN Reason: FEVER Last Admin: 03/11/18 04:25 Dose: 650 mg Albuterol/Ipratropium (Duoneb -) 1 amp NEB RQID [facility] Last Admin: 03/10/18 21:30 Dose: 1 amp Apixaban (Eliquis -) 5 mg PO BID [facility] Last Admin: 03/10/18 23:42 Dose: 5 mg Aspirin (Asa -) 81 mg NGT DAILY [facility] Last Admin: 03/10/18 10:05 Dose: 81 mg Atorvastatin Calcium (Lipitor -) 40 mg NGT HS [facility] Last Admin: 03/10/18 23:41 Dose: 40 mg Docusate Sodium (Colace Liquid -) 200 mg NGT DAILY [facility] Last Admin: 03/10/18 10:10 Dose: 200 mg Escitalopram Oxalate (Lexapro -) 10 mg NGT DAILY [facility] Last Admin: 03/10/18 10:05 Dose: 10 mg Gabapentin (Neurontin Oral Liquid -) 300 mg NGT TID [facility] Last Admin: 03/11/18 06:58 Dose: 300 mg Famotidine/Sodium Chloride (Pepcid 20 Mg Premixed Ivpb -) 20 mg in 50 mls @ 100 mls/hr IVPB BID [facility] Last Admin: 03/10/18 23:41 Dose: 100 mls/hr Insulin Aspart (Novolog Vial Sliding Scale -) 1 vial SQ [facility]; Protocol Last Admin: 03/11/18 07:02 Dose: 6 units Insulin Detemir (Levemir Vial) 20 units SQ [facility] Last Admin: 03/11/18 00:00 Dose: 20 units Lisinopril (Prinivil) 30 mg NGT DAILY [facility] Last Admin: 03/10/18 10:05 Dose: 30 mg Methyl Salicylate (Felix-Seaman -) 1 applic TP Q8H PRN PRN Reason: BODY ACHES Metoprolol Tartrate (Lopressor -) 25 mg NGT BID [facility] Last Admin: 03/10/18 23:42 Dose: 25 mg Multi-Ingredient Ointment (Zinc Oxide) 1 applic TP BID [facility] Last Admin: 03/10/18 23:54 Dose: 1 applic Polyethylene Glycol (Miralax (For Daily Use) -) 17 gm NGT TID [facility] Last Admin: 03/11/18 07:02 Dose: 17 gm - Objective Vital Signs: Vital Signs Temperature 100.5 F H 03/11/18 05:00 Pulse Rate 91 H 03/11/18 05:00 Respiratory Rate 22 H 03/11/18 05:00 Blood Pressure 147/87 03/11/18 05:00 O2 Sat by Pulse Oximetry (%) 95 03/10/18 21:00 Constitutional: Yes: Well Nourished, Other (LETHARGIC) Eyes: Yes: WNL HENT: Yes: WNL Neck: Yes: WNL Cardiovascular: Yes: Regular Rate and Rhythm, S1, S2 Respiratory: Yes: Rhonchi (FEW RHONCHI) Gastrointestinal: Yes: Normal Bowel Sounds, Soft Extremities: Yes: WNL Edema: No Labs: CBC, BMP 03/10/18 05:30 03/10/18 05:30 INR, PTT INR 1.18 (0.83-1.09) H 02/28/18 20:06 Problem List - Problems (1) Hypoxemia Code(s): R09.02 - HYPOXEMIA (2) Sepsis Code(s): A41.9 - SEPSIS, UNSPECIFIED ORGANISM Qualifiers: Sepsis type: sepsis due to unspecified organism Qualified Code(s): A41.9 - Sepsis, unspecified organism (3) Volvulus of descending colon Code(s): K56.2 - VOLVULUS (4) COPD (chronic obstructive pulmonary disease) Code(s): J44.9 - CHRONIC OBSTRUCTIVE PULMONARY DISEASE, UNSPECIFIED Qualifiers: Emphysema type: unspecified (5) Diabetes Code(s): E11.9 - TYPE 2 DIABETES MELLITUS WITHOUT COMPLICATIONS (6) Diastolic dysfunction Code(s): I51.9 - HEART DISEASE, UNSPECIFIED (7) H/O: CVA (cerebrovascular accident) Code(s): Z86.73 - PRSNL HX OF TIA (TIA), AND CEREB INFRC W/O RESID DEFICITS (8) Hypertension Code(s): I10 - ESSENTIAL (PRIMARY) HYPERTENSION Qualifiers: Hypertension type: essential hypertension Qualified Code(s): I10 - Essential (primary) hypertension (9) Pneumonia Code(s): J18.9 - PNEUMONIA, UNSPECIFIED ORGANISM Qualifiers: Pneumonia type: due to unspecified organism Laterality: right Lung location: lower lobe of lung Qualified Code(s): J18.1 - Lobar pneumonia, unspecified organism (10) Respiratory distress Code(s): R06.00 - DYSPNEA, UNSPECIFIED (11) Hypokalemia Code(s): E87.6 - HYPOKALEMIA (12) Pneumonia Code(s): J18.9 - PNEUMONIA, UNSPECIFIED ORGANISM (13) Prolonged Q-T interval on ECG Code(s): R94.31 - ABNORMAL ELECTROCARDIOGRAM [ECG] [EKG] Assessment/Plan ASSESSMENT AND PLAN: s/p Acute Hypoxic Respiratory Failure Pneumonia likely Aspiration Sigmoid Volvulus s/p Rectal Tube Decompression Sepsis Lactic Acidosis LV Diastolic Dysfunction +Troponins likely Demand Ischemia Paroxysmal Atrial Fibrillation h/o CVA - nasal cannula - aspiration precautions - rate control - anticoagulation - DVT prophylaxis - chest x-ray DR MIGUEL
--- NOTE | 2018-03-11 10:12 | PN ---
Progress Note, Physician History of Present Illness: Remains on NC O2 and enteral feeds after rectal tube d/baldev, f/u CT shows resolved colonic distension and volvulus, SR with PAC/PVC on Lopressor, abd less distended, more interactive today. - Current Medication List Current Medications: Active Medications Acetaminophen (Tylenol -) 650 mg PO Q6H PRN PRN Reason: FEVER Last Admin: 03/11/18 04:25 Dose: 650 mg Albuterol/Ipratropium (Duoneb -) 1 amp NEB RQID [facility] Last Admin: 03/10/18 21:30 Dose: 1 amp Apixaban (Eliquis -) 5 mg PO BID [facility] Last Admin: 03/10/18 23:42 Dose: 5 mg Aspirin (Asa -) 81 mg NGT DAILY [facility] Last Admin: 03/10/18 10:05 Dose: 81 mg Atorvastatin Calcium (Lipitor -) 40 mg NGT HS [facility] Last Admin: 03/10/18 23:41 Dose: 40 mg Docusate Sodium (Colace Liquid -) 200 mg NGT DAILY [facility] Last Admin: 03/10/18 10:10 Dose: 200 mg Escitalopram Oxalate (Lexapro -) 10 mg NGT DAILY [facility] Last Admin: 03/10/18 10:05 Dose: 10 mg Gabapentin (Neurontin Oral Liquid -) 300 mg NGT TID [facility] Last Admin: 03/11/18 06:58 Dose: 300 mg Famotidine/Sodium Chloride (Pepcid 20 Mg Premixed Ivpb -) 20 mg in 50 mls @ 100 mls/hr IVPB BID [facility] Last Admin: 03/10/18 23:41 Dose: 100 mls/hr Insulin Aspart (Novolog Vial Sliding Scale -) 1 vial SQ [facility]; Protocol Last Admin: 03/11/18 07:02 Dose: 6 units Insulin Detemir (Levemir Vial) 20 units SQ [facility] Last Admin: 03/11/18 00:00 Dose: 20 units Lisinopril (Prinivil) 30 mg NGT DAILY [facility] Last Admin: 03/10/18 10:05 Dose: 30 mg Methyl Salicylate (Felix-Seaman -) 1 applic TP Q8H PRN PRN Reason: BODY ACHES Metoprolol Tartrate (Lopressor -) 25 mg NGT BID [facility] Last Admin: 03/10/18 23:42 Dose: 25 mg Multi-Ingredient Ointment (Zinc Oxide) 1 applic TP BID [facility] Last Admin: 03/10/18 23:54 Dose: 1 applic Polyethylene Glycol (Miralax (For Daily Use) -) 17 gm NGT TID [facility] Last Admin: 03/11/18 07:02 Dose: 17 gm - Objective Vital Signs: Vital Signs Temperature 100.5 F H 03/11/18 05:00 Pulse Rate 91 H 03/11/18 05:00 Respiratory Rate 22 H 03/11/18 05:00 Blood Pressure 147/87 03/11/18 05:00 O2 Sat by Pulse Oximetry (%) 95 03/10/18 21:00 Constitutional: Yes: No Distress, Calm, Thin Neck: Yes: Supple Cardiovascular: Yes: Regular Rate and Rhythm Respiratory: Yes: Regular, Diminished, On Nasal O2 Gastrointestinal: Yes: Soft, Hypoactive Bowel Sounds Edema: No Labs: CBC, BMP 03/10/18 05:30 03/10/18 05:30 INR, PTT INR 1.18 (0.83-1.09) H 02/28/18 20:06 - ....Imaging EKG: Report Reviewed (Tele: SR, PAV, PVC) Problem List - Problems (1) Elevated troponin Code(s): R74.8 - ABNORMAL LEVELS OF OTHER SERUM ENZYMES (2) Rapid atrial fibrillation Code(s): I48.91 - UNSPECIFIED ATRIAL FIBRILLATION (3) Diastolic dysfunction Code(s): I51.9 - HEART DISEASE, UNSPECIFIED (4) H/O: CVA (cerebrovascular accident) Code(s): Z86.73 - PRSNL HX OF TIA (TIA), AND CEREB INFRC W/O RESID DEFICITS (5) Hyperlipidemia Code(s): E78.5 - HYPERLIPIDEMIA, UNSPECIFIED Qualifiers: Hyperlipidemia type: pure hypercholesterolemia Qualified Code(s): E78.00 - Pure hypercholesterolemia, unspecified; E78.0 - Pure hypercholesterolemia (6) Hypertension Code(s): I10 - ESSENTIAL (PRIMARY) HYPERTENSION Qualifiers: Hypertension type: essential hypertension Qualified Code(s): I10 - Essential (primary) hypertension (7) Pneumonia Code(s): J18.9 - PNEUMONIA, UNSPECIFIED ORGANISM Qualifiers: Pneumonia type: due to unspecified organism Laterality: right Lung location: lower lobe of lung Qualified Code(s): J18.1 - Lobar pneumonia, unspecified organism (8) Toxic metabolic encephalopathy Code(s): G92 - TOXIC ENCEPHALOPATHY (9) Demand ischemia Code(s): I24.8 - OTHER FORMS OF ACUTE ISCHEMIC HEART DISEASE (10) Premature ventricular contraction Code(s): I49.3 - VENTRICULAR PREMATURE DEPOLARIZATION (11) Volvulus of descending colon Code(s): K56.2 - VOLVULUS Assessment/Plan 12/20/2017 Echo: Normal LV size and fxn, tr MR, TR 1. RLL aspiration PNA - HCAP resolving 2. Intermittent sigmoid volvulus post rectal tube decompression since removed - now with Atonic sigmoid colon 3. LV Diastolic Dysfunction 4. Demand ischemia 5. Toxic-metabolic encephelopathy 6. 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 PAF->SR [id number] score 7 on Eliquis 8. PVC, PAC 9. Hypernatremia resolved P:1. Completed empiric abx course to cover possible aspiration pneumonia-HCAP, free H20 repletion, replete K 2. Continue Lopressor 25 bid for rate-control, lisinopril 30 qd, ASA 81 qd, Lipitor 40 qd 3. Continue Eliquis 5 bid given that surgery recommends elective sigmoid colectomy after optimization 4. Inhaled bronchodilators standing and PRN,O2 to keep SpO2 >90% 5. Enteral feeds, transition to oral intake, await definitive repair as outpatient 6. DVT and GI prophylaxis, d/c telemetry
[2018-03-11] MEDS: DOCUSATE NA 100 MG/10 ML UNIT-DOSE CUPS NGT SCH (10:41)
[2018-03-11] MEDS: ASPIRIN 81 MG CHEWABLE TABLETS NGT SCH (10:41)
[2018-03-11] MEDS: ESCITALOPRAM OXALATE 10 MG TABLET (FP) NGT SCH (10:42)
[2018-03-11] MEDS: ZINC OXIDE 20% TOPICAL OINTMENT 30 GM TUBE TP SCH ×2 (10:42→22:51)
[2018-03-11] MEDS: METOPROLOL TARTRATE 25 MG TABLET (FP) NGT SCH ×2 (10:42→22:51)
[2018-03-11] MEDS: LISINOPRIL 10 MG TABLET (FP) NGT SCH (10:42)
[2018-03-11] MEDS: FAMOTIDINE 20 MG/50 ML IVPB 20 MG/50 ML MG IVPB SCH ×2 (10:42→22:50)
[2018-03-11] MEDS: APIXABAN 5 MG TABLET PO SCH (10:42)
--- NOTE | 2018-03-11 11:42 | PN ---
Progress Note (short form) - Note Progress Note: sleepy awakens on calling his name responding to commands on NGT feeding no distress Vital Signs - 24 hr 03/10/18 03/10/18 03/10/18 15:24 17:00 21:00 Temperature 101.3 F H 99.8 F H 100.2 F H Pulse Rate 90 107 H 99 H Respiratory 20 20 22 H Rate Blood Pressure 151/101 H 120/98 156/92 O2 Sat by Pulse 95 Oximetry (%) 03/11/18 03/11/18 01:00 05:00 Temperature 101.2 F H 100.5 F H Pulse Rate 89 91 H Respiratory 26 H 22 H Rate Blood Pressure 154/97 147/87 O2 Sat by Pulse Oximetry (%) Current Medications Generic Name Dose Route Start Last Admin Trade Name Freq PRN Reason Stop Dose Admin Acetaminophen 650 mg 03/07/18 19:11 03/11/18 04:25 Tylenol - PO 650 mg Q6H PRN Administration FEVER Albuterol/Ipratropium 1 amp 03/07/18 20:00 03/11/18 08:45 Duoneb - NEB 1 amp RQID [facility] Administration Apixaban 5 mg 03/09/18 22:00 03/11/18 10:42 Eliquis - PO 5 mg BID [facility] Administration Aspirin 81 mg 03/08/18 10:00 03/11/18 10:41 Asa - NGT 81 mg DAILY [facility] Administration Atorvastatin Calcium 40 mg 03/07/18 22:00 03/10/18 23:41 Lipitor - NGT 40 mg HS [facility] Administration Docusate Sodium 200 mg 03/08/18 10:00 03/11/18 10:41 Colace Liquid - NGT 200 mg DAILY [facility] Administration Escitalopram Oxalate 10 mg 03/08/18 10:00 03/11/18 10:42 Lexapro - NGT 10 mg DAILY [facility] Administration Gabapentin 300 mg 03/07/18 22:00 03/11/18 06:58 Neurontin Oral Liquid - NGT 300 mg TID [facility] Administration Famotidine/Sodium Chloride 20 mg in 50 mls @ 100 mls/hr 03/07/18 22:00 10:42 Pepcid 20 Mg Premixed Ivpb - IVPB 100 mls/hr BID [facility] Administration Insulin Aspart 1 vial 03/07/18 22:00 03/11/18 11:24 Novolog Vial Sliding Scale - SQ 4 units ACHS [facility] Administration Protocol Insulin Detemir 20 units 03/07/18 22:00 03/11/18 00:00 Levemir Vial SQ 20 units HS [facility] Administration Lisinopril 30 mg 03/08/18 10:00 03/11/18 10:42 Prinivil NGT 30 mg DAILY [facility] Administration Methyl Salicylate 1 applic 03/07/18 19:11 Felix-Seaman - TP Q8H PRN BODY ACHES Metoprolol Tartrate 25 mg 03/07/18 22:00 03/11/18 10:42 Lopressor - NGT 25 mg BID [facility] Administration Multi-Ingredient Ointment 1 applic 03/07/18 22:00 03/11/18 10:42 Zinc Oxide TP 1 applic BID [facility] Administration Neomycin Sulfate 1,000 mg 03/12/18 05:00 Mycifradin - PO 03/12/18 11:01 0500,0600,1100 [facility] Polyethylene Glycol 17 gm 03/07/18 22:00 03/11/18 07:02 Miralax (For Daily Use) - NGT 17 gm TID [facility] Administration Laboratory Results - last 24 hr 03/10/18 03/10/18 03/10/18 11:37 17:42 23:50 POC Glucometer 276 300 255 03/11/18 06:57 POC Glucometer 274 S1 S2 irregular Lungs decreased, ronchi ABd- soft, NT, BS+ No edema Sepsis, pneumonia,volvulus, pneumonia RLL --on NG feedings -- swallow follow up, may need MBS -- rate is controlled -- off iv antibiotics --- FUA noted, CT abd noted -- still has rectal tube -- GI follow up and surgical follow up -- will speak to both of them about further plans with regards to volvulus -- ok to transfer to [facility] Problem List - Problems (1) Demand ischemia Code(s): I24.8 - OTHER FORMS OF ACUTE ISCHEMIC HEART DISEASE (2) Elevated troponin Code(s): R74.8 - ABNORMAL LEVELS OF OTHER SERUM ENZYMES (3) Pneumonia Code(s): J18.9 - PNEUMONIA, UNSPECIFIED ORGANISM (4) Rapid atrial fibrillation Code(s): I48.91 - UNSPECIFIED ATRIAL FIBRILLATION (5) Sepsis Code(s): A41.9 - SEPSIS, UNSPECIFIED ORGANISM Qualifiers: Sepsis type: sepsis due to unspecified organism Qualified Code(s): A41.9 - Sepsis, unspecified organism
--- NOTE | 2018-03-11 11:43 | PN ---
Progress Note, Physician Chief Complaint: volvulus History of Present Illness: 77yo male PMH HTN, HLD, CHF, CVA with residual right sided weakness, dysphagia, DM2, COPD presented with weakness and fever 103 from [place]. Remains weak, marginally responsive, on cardizem for Afib which is more rate controlled now. transferred to the floor and stable. rectal tube was replaced because of recurrent distension - Current Medication List Current Medications: Active Medications Acetaminophen (Tylenol -) 650 mg PO Q6H PRN PRN Reason: FEVER Last Admin: 03/11/18 04:25 Dose: 650 mg Albuterol/Ipratropium (Duoneb -) 1 amp NEB RQID [facility] Last Admin: 03/11/18 08:45 Dose: 1 amp Apixaban (Eliquis -) 5 mg PO BID [facility] Last Admin: 03/11/18 10:42 Dose: 5 mg Aspirin (Asa -) 81 mg NGT DAILY [facility] Last Admin: 03/11/18 10:41 Dose: 81 mg Atorvastatin Calcium (Lipitor -) 40 mg NGT HS [facility] Last Admin: 03/10/18 23:41 Dose: 40 mg Docusate Sodium (Colace Liquid -) 200 mg NGT DAILY [facility] Last Admin: 03/11/18 10:41 Dose: 200 mg Erythromycin (Jamie-Tab -) 1,000 mg PO 0500,0600,1100 [facility] Stop: 03/12/18 11:01 Escitalopram Oxalate (Lexapro -) 10 mg NGT DAILY [facility] Last Admin: 03/11/18 10:42 Dose: 10 mg Gabapentin (Neurontin Oral Liquid -) 300 mg NGT TID [facility] Last Admin: 03/11/18 06:58 Dose: 300 mg Famotidine/Sodium Chloride (Pepcid 20 Mg Premixed Ivpb -) 20 mg in 50 mls @ 100 mls/hr IVPB BID [facility] Last Admin: 03/11/18 10:42 Dose: 100 mls/hr Insulin Aspart (Novolog Vial Sliding Scale -) 1 vial SQ [facility]; Protocol Last Admin: 03/11/18 11:24 Dose: 4 units Insulin Detemir (Levemir Vial) 20 units SQ [facility] Last Admin: 03/11/18 00:00 Dose: 20 units Lisinopril (Prinivil) 30 mg NGT DAILY [facility] Last Admin: 03/11/18 10:42 Dose: 30 mg Methyl Salicylate (Felix-Seaman -) 1 applic TP Q8H PRN PRN Reason: BODY ACHES Metoprolol Tartrate (Lopressor -) 25 mg NGT BID [facility] Last Admin: 03/11/18 10:42 Dose: 25 mg Multi-Ingredient Ointment (Zinc Oxide) 1 applic TP BID [facility] Last Admin: 03/11/18 10:42 Dose: 1 applic Neomycin Sulfate (Mycifradin -) 1,000 mg PO 0500,0600,1100 [facility] Stop: 03/12/18 11:01 Polyethylene Glycol (Miralax (For Daily Use) -) 17 gm NGT TID [facility] Last Admin: 03/11/18 07:02 Dose: 17 gm - Objective Vital Signs: Vital Signs Temperature 100.5 F H 03/11/18 05:00 Pulse Rate 91 H 03/11/18 05:00 Respiratory Rate 22 H 03/11/18 05:00 Blood Pressure 147/87 03/11/18 05:00 O2 Sat by Pulse Oximetry (%) 95 03/10/18 21:00 Constitutional: Yes: Well Nourished, No Distress, Calm, Obese Eyes: Yes: Conjunctiva Clear, EOM Intact HENT: Yes: Atraumatic, Normocephalic Neck: Yes: Supple, Trachea Midline Cardiovascular: Yes: Regular Rate and Rhythm, S1, S2 Respiratory: Yes: Regular, CTA Bilaterally Gastrointestinal: Yes: Soft, Abdomen, Obese, Distention, Hypoactive Bowel Sounds. No: Melena, Palpable Mass ...Rectal Exam: Yes: Sphincter Tone Normal, Other (recactal tube) Genitourinary: No: CVA Tenderness - Left, CVA Tenderness - Right Breast(s): Yes: Gynecomastia. No: Discharge from Nipple, Mass Extremities: No: Cool, Cyanosis Edema: Yes Edema: LLE: 1+, RLE: 1+ Peripheral Pulses WNL: Yes Peripheral Pulses: Left Radial: 2+, Right Radial: 2+, Left Doralis Pedis: 2+, Right Dorsalis Pedis: 2+ Neurological: Yes: Alert, Confusion. No: Oriented Psychiatric: Yes: Alert. No: Oriented Labs: CBC, BMP 03/10/18 05:30 03/10/18 05:30 INR, PTT INR 1.18 (0.83-1.09) H 02/28/18 20:06 Problem List - Problems (1) Volvulus of sigmoid colon Assessment/Plan: 77yo male MMP RLL pneumonia recently decompressed with rectal tube now soft abdomen with out peritonitis. Would not reccomend immediate surgical intervention. Once improved he may be a candidate for elective sigmoid colectomy. Agree with GI remove rectal tube optimized nutritional status Medical clearence for elective surgery f/u after discharge for elective sigmoid colectomy Recall surgery as needed Code(s): K56.2 - VOLVULUS (2) Elevated troponin Code(s): R74.8 - ABNORMAL LEVELS OF OTHER SERUM ENZYMES (3) Hypoxemia Code(s): R09.02 - HYPOXEMIA (4) Pneumonia Code(s): J18.9 - PNEUMONIA, UNSPECIFIED ORGANISM (5) COPD (chronic obstructive pulmonary disease) Code(s): J44.9 - CHRONIC OBSTRUCTIVE PULMONARY DISEASE, UNSPECIFIED Qualifiers: Emphysema type: unspecified (6) Diabetes Code(s): E11.9 - TYPE 2 DIABETES MELLITUS WITHOUT COMPLICATIONS (7) Fecal retention Code(s): K59.00 - CONSTIPATION, UNSPECIFIED
--- NOTE | 2018-03-11 12:15 | PN ---
Progress Note (short form) - Note Progress Note: Case discussed with RN and with Dr Miller. CT from last evening reviewed. Marked improvement in distention with rectal tube in place. Abdomen still somewhat distended but soft. Tolerating NG tube feedings. Advised discontinuation of any drug that might slow down GI motility, particularly gabapentin. Would leave rectal tube in place for , remove on Tuesday. If distention recurs after removal of rectal tube then a sigmoid colectomy will probably be required.
--- NOTE | 2018-03-11 15:26 | PN ---
Progress Note (short form) - Note Progress Note: alert, +NGT febrile yesterday, rectal tube replaced no fevers today Vital Signs Period Temp Pulse Resp BP Sys/Pham Pulse Ox Last 24 Hr 99.4 F-101.2 F 73-99 20-26 133-156/78-97 95-98 cor-rrr lungs decreased bs at bases +NGT abd soft ext no edema CBC, BMP 03/10/18 05:30 03/10/18 05:30 Microbiology 02/28/18 20:25 Blood - Peripheral Venous Blood Culture - Final NO GROWTH AFTER 5 DAYS INCUBATION 02/28/18 20:25 Blood - Peripheral Venous Blood Culture - Final NO GROWTH AFTER 5 DAYS INCUBATION 03/03/18 06:00 Stool Clostridium difficile Antigen (AMY) - Final 03/03/18 06:00 Stool Clostridium difficile Toxin Assay - Final 03/01/18 20:30 Nares - Mrsa Screen - Right MRSA Screen - Final NO MRSA ISOLATED 03/01/18 20:30 Nares - Mrsa Screen - Left MRSA Screen - Final NO MRSA ISOLATED 02/28/18 22:53 Urine - Urine Clean Catch Urine Culture - Final NO GROWTH OBTAINED 03/01/18 11:20 Urine For Antigen Detection Legionella Antigen - Final 03/01/18 11:20 Urine For Antigen Detection Streptococcus pneumoniae Antigen (M - Final 02/28/18 23:30 Nasopharyngeal Swab Influenza Types A,B Antigen - Final 02/28/18 23:30 Nasopharyngeal Swab - Final Current Medications Acetaminophen (Tylenol -) 650 mg PO Q6H PRN PRN Reason: FEVER Albuterol/Ipratropium (Duoneb -) 1 amp NEB RQID [facility] Last Admin: 03/12/18 07:30 Dose: 1 amp Atorvastatin Calcium (Lipitor -) 40 mg NGT HS [facility] Last Admin: 03/11/18 22:51 Dose: 40 mg Enoxaparin Sodium (Lovenox -) 100 mg SQ BID [facility] Last Admin: 03/12/18 11:21 Dose: 100 mg Famotidine/Sodium Chloride (Pepcid 20 Mg Premixed Ivpb -) 20 mg in 50 mls @ 100 mls/hr IVPB BID [facility] Last Admin: 03/12/18 11:20 Dose: 100 mls/hr Potassium Chloride/Dextrose/Sod Cl (D5-1/2ns+20 Meq Kcl -) 20 meq in 1,000 mls @ 75 mls/hr IV ASDIR [facility] Last Admin: 03/12/18 11:21 Dose: 75 mls/hr Insulin Aspart (Novolog Vial Sliding Scale -) 1 vial SQ ACHS [facility]; Protocol Last Admin: 03/12/18 11:23 Dose: 4 units Insulin Detemir (Levemir Vial) 20 units SQ HS [facility] Last Admin: 03/11/18 22:56 Dose: 20 units Lisinopril (Prinivil) 30 mg NGT DAILY [facility] Last Admin: 03/12/18 11:20 Dose: 30 mg Methyl Salicylate (Felix-Seaman -) 1 applic TP Q8H PRN PRN Reason: BODY ACHES Metoprolol Tartrate (Lopressor -) 25 mg NGT BID [facility] Last Admin: 03/12/18 11:20 Dose: 25 mg Multi-Ingredient Ointment (Zinc Oxide) 1 applic TP BID [facility] Last Admin: 03/11/18 22:51 Dose: 1 applic a/p low grade temp- blood cultures and cxray today will observe for now RLL pneumonia-has completed 7 days zosyn, off antibiotics abdominal distention/volvulus- improved , rectal tube replaced afib- improved on meds Problem List - Problems (1) Sepsis Code(s): A41.9 - SEPSIS, UNSPECIFIED ORGANISM Qualifiers: Sepsis type: sepsis due to unspecified organism Qualified Code(s): A41.9 - Sepsis, unspecified organism (2) Pneumonia Code(s): J18.9 - PNEUMONIA, UNSPECIFIED ORGANISM (3) Hypoxemia Code(s): R09.02 - HYPOXEMIA (4) COPD exacerbation Code(s): J44.1 - CHRONIC OBSTRUCTIVE PULMONARY DISEASE W (ACUTE) EXACERBATION (5) Rapid atrial fibrillation Code(s): I48.91 - UNSPECIFIED ATRIAL FIBRILLATION (6) Elevated troponin Code(s): R74.8 - ABNORMAL LEVELS OF OTHER SERUM ENZYMES (7) Prolonged Q-T interval on ECG Code(s): R94.31 - ABNORMAL ELECTROCARDIOGRAM [ECG] [EKG]
[2018-03-11] MEDS ORDERED: METHYL SALICYLATE/MENTHOL OINT 30 GM TUBE TP PRN (15:31)
[2018-03-11] MEDS ORDERED: ACETAMINOPHEN 325 MG TABLET (FP) PO PRN (15:31)
[2018-03-11] MEDS ORDERED: APIXABAN 5 MG TABLET PO SCH (22:00)
[2018-03-11] MEDS: ATORVASTATIN CA 40 MG TABLET (FP) NGT SCH (22:51)
[2018-03-11] MEDS: INSULIN (LEVEMIR) 100 UNITS/ML UNITS SQ SCH ×2 (22:56)
[2018-03-12] MEDS ORDERED: ERYTHROMYCIN BASE 500 MG TABLET PO SCH (05:00)
[2018-03-12] MEDS: ERYTHROMYCIN BASE 500 MG TABLET PO SCH ×5 (06:16→15:40)
[2018-03-12] MEDS: NEOMYCIN SO4 500 MG TABLET PO SCH ×5 (06:17→15:40)
[2018-03-12] MEDS: INSULIN SLIDING SCALE (NOVOLOG) 1 VIAL SQ SCH ×4 (06:18→21:40)
[2018-03-12] MEDS: ALBUTEROL SO4 2.5/IPRATROPIUM 0.5 INH SOL 3 ML VIAL.NEB. NEB SCH ×4 (07:30→19:50)
--- NOTE | 2018-03-12 08:48 | PN ---
Progress Note (short form) - Note Progress Note: sleepy awakens on calling his name responding to commands pulled out NG Vital Signs - 24 hr 03/12/18 03/12/18 03/12/18 01:00 06:00 09:00 Temperature 100.9 F H 99.5 F Pulse Rate 81 70 Respiratory 20 20 Rate Blood Pressure 136/77 136/71 O2 Sat by Pulse 98 Oximetry (%) Current Medications Generic Name Dose Route Start Last Admin Trade Name Freq PRN Reason Stop Dose Admin Acetaminophen 650 mg 03/11/18 15:31 Tylenol - PO Q6H PRN FEVER Albuterol/Ipratropium 1 amp 03/11/18 16:00 03/12/18 19:50 Duoneb - NEB 1 amp RQID [facility] Administration Atorvastatin Calcium 40 mg 03/11/18 22:00 03/12/18 21:32 Lipitor - NGT 40 mg HS [facility] Administration Enoxaparin Sodium 100 mg 03/12/18 10:00 03/12/18 21:32 Lovenox - SQ 100 mg BID [facility] Administration Famotidine/Sodium Chloride 20 mg in 50 mls @ 100 mls/hr 03/11/18 22:00 21:32 Pepcid 20 Mg Premixed Ivpb - IVPB 100 mls/hr BID [facility] Administration Potassium Chloride/Dextrose/Sod Cl 20 meq in 1,000 mls @ 75 mls/hr 03/12/18 09 :00 03/12/18 11:21 D5-1/2ns+20 Meq Kcl - IV 75 mls/hr ASDIR [facility] Administration Insulin Aspart 1 vial 03/11/18 16:30 03/12/18 21:40 Novolog Vial Sliding Scale - SQ 4 units ACHS [facility] Administration Protocol Insulin Detemir 20 units 03/11/18 22:00 03/12/18 21:40 Levemir Vial SQ 20 units HS [facility] Administration Lisinopril 30 mg 03/12/18 10:00 03/12/18 11:20 Prinivil NGT 30 mg DAILY [facility] Administration Methyl Salicylate 1 applic 03/11/18 15:31 Felix-Seaman - TP Q8H PRN BODY ACHES Metoprolol Tartrate 25 mg 03/11/18 22:00 03/12/18 21:32 Lopressor - NGT 25 mg BID [facility] Administration Multi-Ingredient Ointment 1 applic 03/11/18 22:00 03/12/18 21:33 Zinc Oxide TP 1 applic BID [facility] Administration Laboratory Results - last 24 hr 03/11/18 03/12/18 03/12/18 22:55 05:58 11:07 POC Glucometer 283 280 222 03/12/18 03/12/18 17:50 21:35 POC Glucometer 265 250 S1 S2 irregular Lungs decreased, ronchi ABd- soft, NT, BS+ No edema Sepsis, pneumonia,volvulus, pneumonia RLL --re-insert NG -- spoke with surgeon-Dr Sharif, may not be ready for surgery as he is not optimised yet, poor nutritional status -- will dc Eliquis for now and also ASA in anticipation for surgery- if he gets distended again -- start Lovenox -- rate is controlled -- off iv antibiotics --- FUA noted, CT abd noted -- still has rectal tube Problem List - Problems (1) Demand ischemia Code(s): I24.8 - OTHER FORMS OF ACUTE ISCHEMIC HEART DISEASE (2) Elevated troponin Code(s): R74.8 - ABNORMAL LEVELS OF OTHER SERUM ENZYMES (3) Pneumonia Code(s): J18.9 - PNEUMONIA, UNSPECIFIED ORGANISM (4) Rapid atrial fibrillation Code(s): I48.91 - UNSPECIFIED ATRIAL FIBRILLATION (5) Sepsis Code(s): A41.9 - SEPSIS, UNSPECIFIED ORGANISM Qualifiers: Sepsis type: sepsis due to unspecified organism Qualified Code(s): A41.9 - Sepsis, unspecified organism
[2018-03-12] MEDS ORDERED: PEG3350/SOD SULF,BICARB,CL/KCL 4,000 ML SOLN.RECON PO ONE ×2 (09:00)
[2018-03-12] MEDS ORDERED: ASPIRIN 81 MG CHEWABLE TABLETS NGT SCH (10:00)
--- NOTE | 2018-03-12 10:32 | PN ---
Progress Note (short form) - Note Progress Note: Abdomen no longer distended. Bowel sounds present, abdomen soft, nontender. Again, will leave rectal tube in place for weekend, remove tomorrow. If distention recurs after removal of rectal tube then a sigmoid colectomy will likely be required. Discussed yesterday with Dr Ding of surgery.
[2018-03-12] MEDS: LISINOPRIL 10 MG TABLET (FP) NGT SCH (11:20)
[2018-03-12] MEDS: METOPROLOL TARTRATE 25 MG TABLET (FP) NGT SCH ×2 (11:20→21:32)
[2018-03-12] MEDS: FAMOTIDINE 20 MG/50 ML IVPB 20 MG/50 ML MG IVPB SCH ×2 (11:20→21:32)
[2018-03-12] MEDS: ENOXAPARIN NA (PORCINE) 100 MG/1 ML DISP.SYRIN SQ SCH ×2 (11:21→21:32)
[2018-03-12] MEDS: D5-1/2NS+20 MEQ KCL - 20 MEQ/1,000 ML INFUS.BAG IV SCH (11:21)
[2018-03-12] MEDS: ZINC OXIDE 20% TOPICAL OINTMENT 30 GM TUBE TP SCH ×2 (12:30→21:33)
--- NOTE | 2018-03-12 13:08 | PN ---
Progress Note, Physician History of Present Illness: pulmonary awake,alert,no distress - Current Medication List Current Medications: Active Medications Acetaminophen (Tylenol -) 650 mg PO Q6H PRN PRN Reason: FEVER Albuterol/Ipratropium (Duoneb -) 1 amp NEB RQID [facility] Last Admin: 03/12/18 11:45 Dose: 1 amp Atorvastatin Calcium (Lipitor -) 40 mg NGT HS [facility] Last Admin: 03/11/18 22:51 Dose: 40 mg Enoxaparin Sodium (Lovenox -) 100 mg SQ BID [facility] Last Admin: 03/12/18 11:21 Dose: 100 mg Famotidine/Sodium Chloride (Pepcid 20 Mg Premixed Ivpb -) 20 mg in 50 mls @ 100 mls/hr IVPB BID [facility] Last Admin: 03/12/18 11:20 Dose: 100 mls/hr Potassium Chloride/Dextrose/Sod Cl (D5-1/2ns+20 Meq Kcl -) 20 meq in 1,000 mls @ 75 mls/hr IV ASDIR [facility] Last Admin: 03/12/18 11:21 Dose: 75 mls/hr Insulin Aspart (Novolog Vial Sliding Scale -) 1 vial SQ [facility]; Protocol Last Admin: 03/12/18 11:23 Dose: 4 units Insulin Detemir (Levemir Vial) [address] [facility] Last Admin: 03/11/18 22:56 Dose: 20 units Lisinopril (Prinivil) 30 mg NGT DAILY [facility] Last Admin: 03/12/18 11:20 Dose: 30 mg Methyl Salicylate (Felix-Seaman -) 1 applic TP Q8H PRN PRN Reason: BODY ACHES Metoprolol Tartrate (Lopressor -) 25 mg NGT BID [facility] Last Admin: 03/12/18 11:20 Dose: 25 mg Multi-Ingredient Ointment (Zinc Oxide) 1 applic TP BID [facility] Last Admin: 03/11/18 22:51 Dose: 1 applic - Objective Vital Signs: Vital Signs Temperature 99.2 F 03/12/18 10:42 Pulse Rate 84 03/12/18 10:42 Respiratory Rate 18 03/12/18 10:42 Blood Pressure 141/87 03/12/18 10:42 O2 Sat by Pulse Oximetry (%) 98 03/12/18 10:00 Constitutional: Yes: Well Nourished, Calm Eyes: Yes: WNL HENT: Yes: WNL Neck: Yes: WNL Cardiovascular: Yes: Pulse Irregular, S1, S2 Respiratory: Yes: Diminished Gastrointestinal: Yes: Normal Bowel Sounds, Soft Extremities: Yes: WNL Edema: No Labs: CBC, BMP 03/10/18 05:30 03/10/18 05:30 INR, PTT INR 1.18 (0.83-1.09) H 02/28/18 20:06 - ....Imaging Chest X-ray: Report Reviewed, Image Reviewed Problem List - Problems (1) Hypoxemia Code(s): R09.02 - HYPOXEMIA (2) Sepsis Code(s): A41.9 - SEPSIS, UNSPECIFIED ORGANISM Qualifiers: Sepsis type: sepsis due to unspecified organism Qualified Code(s): A41.9 - Sepsis, unspecified organism (3) Volvulus of descending colon Code(s): K56.2 - VOLVULUS (4) COPD (chronic obstructive pulmonary disease) Code(s): J44.9 - CHRONIC OBSTRUCTIVE PULMONARY DISEASE, UNSPECIFIED Qualifiers: Emphysema type: unspecified (5) Diabetes Code(s): E11.9 - TYPE 2 DIABETES MELLITUS WITHOUT COMPLICATIONS (6) Diastolic dysfunction Code(s): I51.9 - HEART DISEASE, UNSPECIFIED (7) H/O: CVA (cerebrovascular accident) Code(s): Z86.73 - PRSNL HX OF TIA (TIA), AND CEREB INFRC W/O RESID DEFICITS (8) Hypertension Code(s): I10 - ESSENTIAL (PRIMARY) HYPERTENSION Qualifiers: Hypertension type: essential hypertension Qualified Code(s): I10 - Essential (primary) hypertension (9) Pneumonia Code(s): J18.9 - PNEUMONIA, UNSPECIFIED ORGANISM Qualifiers: Pneumonia type: due to unspecified organism Laterality: right Lung location: lower lobe of lung Qualified Code(s): J18.1 - Lobar pneumonia, unspecified organism (10) Respiratory distress Code(s): R06.00 - DYSPNEA, UNSPECIFIED (11) Hypokalemia Code(s): E87.6 - HYPOKALEMIA (12) Pneumonia Code(s): J18.9 - PNEUMONIA, UNSPECIFIED ORGANISM (13) Prolonged Q-T interval on ECG Code(s): R94.31 - ABNORMAL ELECTROCARDIOGRAM [ECG] [EKG] Assessment/Plan ASSESSMENT AND PLAN: s/p Acute Hypoxic Respiratory Failure Pneumonia likely Aspiration clinically improved Sigmoid Volvulus s/p Rectal Tube Decompression Sepsis Lactic Acidosis LV Diastolic Dysfunction +Troponins likely Demand Ischemia Paroxysmal Atrial Fibrillation h/o CVA - nasal cannula - aspiration precautions - rate control - anticoagulation - DVT prophylaxis - chest x-ray DR MIGUEL
[2018-03-12] MEDS ORDERED: PT OWN MED DRAWER 7, Y5N ONE (14:40)
[2018-03-12] MEDS: ATORVASTATIN CA 40 MG TABLET (FP) NGT SCH (21:32)
[2018-03-12] MEDS: INSULIN (LEVEMIR) 100 UNITS/ML UNITS SQ SCH (21:40)
[2018-03-13] MEDS: D5-1/2NS+20 MEQ KCL - 20 MEQ/1,000 ML INFUS.BAG IV SCH (06:47)
[2018-03-13] MEDS: INSULIN SLIDING SCALE (NOVOLOG) 1 VIAL SQ SCH ×4 (06:50→21:16)
[2018-03-13] MEDS: ALBUTEROL SO4 2.5/IPRATROPIUM 0.5 INH SOL 3 ML VIAL.NEB. NEB SCH ×4 (07:25→20:00)
[2018-03-13 08:03] LABS: BASO % 0.8 % (0-2.0); EOS % 1.3 % (0-4.5); HEMATOCRIT 37.8 % (35.4-49); HEMOGLOBIN 12.7 GM/dL (11.7-16.9); LYMPH % 31.3 % (8-40); MCH 30.5 pg (25.7-33.7); MCHC 33.4 g/dl (32.0-35.9); MEAN CELL VOLUME 91.2 fl (80-96); MONO % 7.9 % (3.8-10.2); NEUT % 58.7 % (42.8-82.8); PLATELET COUNT 345 K/MM3 (134-434); RBC 4.15 M/mm3 (4.00-5.60); WHITE BLOOD COUNT 9.1 K/mm3 (4.0-10.0)
[2018-03-13 09:13] LABS: ALBUMIN 2.5 g/dl (3.4-5.0); ALK PHOS 44 U/L (45-117); ANION GAP 10 MMOL/L (8-16); BILIRUBIN,TOTAL 0.8 mg/dL (0.2-1); BLOOD UREA NITROGEN 10 mg/dL (7-18); CALCIUM 8.4 mg/dL (8.5-10.1); CHLORIDE 99 mmol/L (98-107); CO2 30 mmol/L (21-32); CREATININE 0.7 mg/dL (0.55-1.3); GLUCOSE,RANDOM 237 mg/dL (74-106); POTASSIUM 3.2 mmol/L (3.5-5.1); PREALBUMIN 13.1 mg/dl (20-40); SGOT/AST 20 U/L (15-37); SGPT/ALT 19 U/L (13-61); SODIUM 139 mmol/L (136-145); TOT PROT 6.7 g/dl (6.4-8.2)
--- NOTE | 2018-03-13 10:05 | PN ---
Progress Note (short form) - Note Progress Note: PULMONARY Poorly responsive. No fevers recorded. Vital Signs Period Temp Pulse Resp BP Sys/Pham Pulse Ox Last 24 Hr 98.1 F-99.3 F 84-96 18-20 141-158/82-88 98 Gen: poorly responsive Heart: RRR Lung: decreased breath sounds at the bases Abd: soft, nontender Ext: no edema CBC, BMP 03/13/18 07:40 03/13/18 07:40 Active Medications Acetaminophen (Tylenol -) 650 mg PO Q6H PRN PRN Reason: FEVER Albuterol/Ipratropium (Duoneb -) 1 amp NEB RQID [facility] Last Admin: 03/13/18 07:25 Dose: 1 amp Atorvastatin Calcium (Lipitor -) 40 mg NGT HS [facility] Last Admin: 03/12/18 21:32 Dose: 40 mg Enoxaparin Sodium (Lovenox -) 100 mg SQ BID [facility] Last Admin: 03/12/18 21:32 Dose: 100 mg Famotidine/Sodium Chloride (Pepcid 20 Mg Premixed Ivpb -) 20 mg in 50 mls @ 100 mls/hr IVPB BID [facility] Last Admin: 03/12/18 21:32 Dose: 100 mls/hr Potassium Chloride/Dextrose/Sod Cl (D5-1/2ns+20 Meq Kcl -) 20 meq in 1,000 mls @ 75 mls/hr IV ASDIR [facility] Last Admin: 03/13/18 06:47 Dose: 75 mls/hr Insulin Aspart (Novolog Vial Sliding Scale -) 1 vial SQ [facility]; Protocol Last Admin: 03/13/18 06:50 Dose: 4 units Insulin Detemir (Levemir Vial) 20 units SQ [facility] Last Admin: 03/12/18 21:40 Dose: 20 units Lisinopril (Prinivil) 30 mg NGT DAILY [facility] Last Admin: 03/12/18 11:20 Dose: 30 mg Methyl Salicylate (Felix-Seaman -) 1 applic TP Q8H PRN PRN Reason: BODY ACHES Metoprolol Tartrate (Lopressor -) 25 mg NGT BID [facility] Last Admin: 03/12/18 21:32 Dose: 25 mg Multi-Ingredient Ointment (Zinc Oxide) 1 applic TP BID [facility] Last Admin: 03/12/18 21:33 Dose: 1 applic A/P s/p Acute Hypoxic Respiratory Failure Pneumonia likely Aspiration clinically improved Sigmoid Volvulus s/p Rectal Tube Decompression Sepsis resolved LV Diastolic Dysfunction +Troponins likely Demand Ischemia Paroxysmal Atrial Fibrillation h/o CVA - completed antibiotics - O2 to keep SpO2 >90% - replete lytes - aspiration precautions - rate control - continue anticoagulation - DVT prophylaxis
--- NOTE | 2018-03-13 10:09 | PN ---
Progress Note, Physician Chief Complaint: volvulus History of Present Illness: 77yo male PMH HTN, HLD, CHF, CVA with residual right sided weakness, dysphagia, DM2, COPD presented with weakness and fever 103 from [place]. Remains weak, marginally responsive, on cardizem for Afib which is more rate controlled now. transferred to the floor and stable. rectal tube was replaced because of recurrent distension - Current Medication List Current Medications: Active Medications Acetaminophen (Tylenol -) 650 mg PO Q6H PRN PRN Reason: FEVER Albuterol/Ipratropium (Duoneb -) 1 amp NEB RQID [facility] Last Admin: 03/13/18 07:25 Dose: 1 amp Atorvastatin Calcium (Lipitor -) 40 mg NGT HS [facility] Last Admin: 03/12/18 21:32 Dose: 40 mg Enoxaparin Sodium (Lovenox -) 100 mg SQ BID [facility] Last Admin: 03/12/18 21:32 Dose: 100 mg Famotidine/Sodium Chloride (Pepcid 20 Mg Premixed Ivpb -) 20 mg in 50 mls @ 100 mls/hr IVPB BID [facility] Last Admin: 03/12/18 21:32 Dose: 100 mls/hr Potassium Chloride/Dextrose/Sod Cl (D5-1/2ns+20 Meq Kcl -) 20 meq in 1,000 mls @ 75 mls/hr IV ASDIR [facility] Last Admin: 03/13/18 06:47 Dose: 75 mls/hr Insulin Aspart (Novolog Vial Sliding Scale -) 1 vial SQ [facility]; Protocol Last Admin: 03/13/18 06:50 Dose: 4 units Insulin Detemir (Levemir Vial) 20 units SQ [facility] Last Admin: 03/12/18 21:40 Dose: 20 units Lisinopril (Prinivil) 30 mg NGT DAILY [facility] Last Admin: 03/12/18 11:20 Dose: 30 mg Methyl Salicylate (Felix-Seaman -) 1 applic TP Q8H PRN PRN Reason: BODY ACHES Metoprolol Tartrate (Lopressor -) 25 mg NGT BID [facility] Last Admin: 03/12/18 21:32 Dose: 25 mg Multi-Ingredient Ointment (Zinc Oxide) 1 applic TP BID [facility] Last Admin: 03/12/18 21:33 Dose: 1 applic - Objective Vital Signs: Vital Signs Temperature 98.5 F 03/13/18 06:00 Pulse Rate 96 H 03/12/18 21:55 Respiratory Rate 20 03/13/18 06:00 Blood Pressure 150/82 03/13/18 06:00 O2 Sat by Pulse Oximetry (%) 98 03/12/18 21:00 Vital Signs Period Temp Pulse Resp BP Sys/Pham Pulse Ox Last 24 Hr 98.1 F-99.3 F 84-96 18-20 141-158/82-88 98 Intake & Output 03/12/18 03/13/18 03/13/18 23:59 07:59 15:59 Intake Total 100 900 Balance 100 900 Intake: IV 900 D5-1/2NS+20 MEQ KCL - 20 900 meq In 1,000 ml @ 75 mls/ hr IV ASDIR [facility] Rx#: [id number] IVPB 100 Other: Voiding Method Diaper # Unmeasured Voids Void 3 Bowel Movement Yes Yes: brown liquid # Bowel Movements 3 3 Constitutional: Yes: No Distress, Calm, Obese. No: Well Nourished Eyes: Yes: Conjunctiva Clear, EOM Intact HENT: Yes: Atraumatic, Normocephalic Neck: Yes: Supple, Trachea Midline Cardiovascular: Yes: Regular Rate and Rhythm, S1, S2 Respiratory: Yes: Regular, CTA Bilaterally Gastrointestinal: Yes: Normal Bowel Sounds, Soft, Abdomen, Obese, Distention. No: Hypoactive Bowel Sounds, Tenderness, Tenderness, Epigastrium, Tenderness, Rebound, Vomiting ...Rectal Exam: No: Deferred Genitourinary: No: CVA Tenderness - Left, CVA Tenderness - Right Extremities: No: Cool, Cyanosis Edema: Yes Edema: LLE: 1+, RLE: 1+ Peripheral Pulses WNL: Yes Peripheral Pulses: Left Radial: 2+, Right Radial: 2+, Left Doralis Pedis: 2+, Right Dorsalis Pedis: 2+ Integumentary: No: Jaundice, Rash, Skin Tear Neurological: Yes: Alert. No: Oriented, Confusion Psychiatric: No: Alert, Oriented Labs: CBC, BMP 03/13/18 07:40 03/13/18 07:40 INR, PTT INR 1.18 (0.83-1.09) H 02/28/18 20:06 Problem List - Problems (1) Volvulus of sigmoid colon Assessment/Plan: 77yo male MMP RLL pneumonia recently decompressed with rectal tube now soft abdomen with out peritonitis. Would not reccomend immediate surgical intervention. Once improved he may be a candidate for elective sigmoid colectomy. Agree with GI remove rectal tube optimized nutritional status Medical clearence for elective surgery f/u after discharge for elective sigmoid colectomy Recall surgery as needed Code(s): K56.2 - VOLVULUS (2) Elevated troponin Code(s): R74.8 - ABNORMAL LEVELS OF OTHER SERUM ENZYMES (3) Hypoxemia Code(s): R09.02 - HYPOXEMIA (4) Pneumonia Code(s): J18.9 - PNEUMONIA, UNSPECIFIED ORGANISM (5) COPD (chronic obstructive pulmonary disease) Code(s): J44.9 - CHRONIC OBSTRUCTIVE PULMONARY DISEASE, UNSPECIFIED Qualifiers: Emphysema type: unspecified (6) Diabetes Code(s): E11.9 - TYPE 2 DIABETES MELLITUS WITHOUT COMPLICATIONS (7) Fecal retention Code(s): K59.00 - CONSTIPATION, UNSPECIFIED
--- NOTE | 2018-03-13 10:19 | PN ---
Progress Note (short form) - Note Progress Note: pt seen/examined chart reviewed. awake/ comfortable pulled out ngt discussed with surgeon today rectal tube be taken out today pt denies pain Vital Signs Temp 98.5 F 03/13/18 06:00 Pulse 96 H 03/12/18 21:55 Resp 20 03/13/18 06:00 BP 150/82 03/13/18 06:00 Pulse Ox 98 03/12/18 21:00 Intake & Output 03/12/18 03/12/18 03/13/18 11:59 23:59 11:59 Intake Total 150 900 Balance 150 900 Intake: IV 900 D5-1/2NS+20 MEQ KCL - 20 900 meq In 1,000 ml @ 75 mls/ hr IV ASDIR [facility] Rx#: [id number] IVPB 150 Other: Voiding Method Incontinent Diaper Diaper # Unmeasured Voids Void 2 3 Bowel Movement Yes Yes: brown liquid # Bowel Movements 3 3 Active Medications Acetaminophen (Tylenol -) 650 mg PO Q6H PRN PRN Reason: FEVER Albuterol/Ipratropium (Duoneb -) 1 amp NEB RQID [facility] Last Admin: 03/13/18 07:25 Dose: 1 amp Atorvastatin Calcium (Lipitor -) 40 mg NGT HS [facility] Last Admin: 03/12/18 21:32 Dose: 40 mg Enoxaparin Sodium (Lovenox -) 100 mg SQ BID [facility] Last Admin: 03/12/18 21:32 Dose: 100 mg Famotidine/Sodium Chloride (Pepcid 20 Mg Premixed Ivpb -) 20 mg in 50 mls @ 100 mls/hr IVPB BID [facility] Last Admin: 03/12/18 21:32 Dose: 100 mls/hr Potassium Chloride/Dextrose/Sod Cl (D5-1/2ns+20 Meq Kcl -) 20 meq in 1,000 mls @ 75 mls/hr IV ASDIR [facility] Last Admin: 03/13/18 06:47 Dose: 75 mls/hr Insulin Aspart (Novolog Vial Sliding Scale -) 1 vial SQ [facility]; Protocol Last Admin: 03/13/18 06:50 Dose: 4 units Insulin Detemir (Levemir Vial) 20 units SQ [facility] Last Admin: 03/12/18 21:40 Dose: 20 units Lisinopril (Prinivil) 30 mg NGT DAILY [facility] Last Admin: 03/12/18 11:20 Dose: 30 mg Methyl Salicylate (Felix-Seaman -) 1 applic TP Q8H PRN PRN Reason: BODY ACHES Metoprolol Tartrate (Lopressor -) 25 mg NGT BID [facility] Last Admin: 03/12/18 21:32 Dose: 25 mg Multi-Ingredient Ointment (Zinc Oxide) 1 applic TP BID [facility] Last Admin: 03/12/18 21:33 Dose: 1 applic CBC, BMP 03/13/18 07:40 03/13/18 07:40 Microbiology 03/11/18 14:50 Blood Culture - Preliminary Blood - Peripheral Venous NO GROWTH OBTAINED AFTER 24 HOURS, INCUBATION TO CONTINUE FOR 4 DAYS. 03/11/18 14:45 Blood Culture - Preliminary Blood - Peripheral Venous NO GROWTH OBTAINED AFTER 24 HOURS, INCUBATION TO CONTINUE FOR 4 DAYS. Physical Exam. S1 S2 irregular awake/ comfortable Lungs decreased at bases cvs- s1, s2 rrr ABd- soft, bs + No edema a/p Sepsis, pneumonia, volvulus, afib --continue present care --monitor lytes. meds reviewed will follow. Problem List - Problems (1) Demand ischemia Code(s): I24.8 - OTHER FORMS OF ACUTE ISCHEMIC HEART DISEASE (2) Elevated troponin Code(s): R74.8 - ABNORMAL LEVELS OF OTHER SERUM ENZYMES (3) Hypokalemia Code(s): E87.6 - HYPOKALEMIA (4) Pneumonia Code(s): J18.9 - PNEUMONIA, UNSPECIFIED ORGANISM (5) Rapid atrial fibrillation Code(s): I48.91 - UNSPECIFIED ATRIAL FIBRILLATION (6) Volvulus of descending colon Code(s): K56.2 - VOLVULUS (7) Diabetes Code(s): E11.9 - TYPE 2 DIABETES MELLITUS WITHOUT COMPLICATIONS (8) Fecal retention Code(s): K59.00 - CONSTIPATION, UNSPECIFIED (9) H/O: CVA (cerebrovascular accident) Code(s): Z86.73 - PRSNL HX OF TIA (TIA), AND CEREB INFRC W/O RESID DEFICITS
--- NOTE | 2018-03-13 10:43 | PN ---
Progress Note (short form) - Note Progress Note: Weekend coverage noted: Advised nurse to remove rectal tube. Will observe Surgery following Correct lytes Problem List - Problems (1) Volvulus of sigmoid colon Code(s): K56.2 - VOLVULUS
[2018-03-13] MEDS ORDERED: PT OWN MED DRAWER 7, Y5N ONE (11:28)
[2018-03-13] MEDS: FAMOTIDINE 20 MG/50 ML IVPB 20 MG/50 ML MG IVPB SCH ×2 (11:44→21:15)
[2018-03-13] MEDS: KCL 10 MEQ IVPB 10 MEQ/100 ML INFUS.BAG IVPB SCH ×3 (11:44→16:20)
[2018-03-13] MEDS: ENOXAPARIN NA (PORCINE) 100 MG/1 ML DISP.SYRIN SQ SCH ×2 (11:44→21:46)
[2018-03-13] MEDS: LISINOPRIL 10 MG TABLET (FP) NGT SCH (11:44)
[2018-03-13] MEDS: METOPROLOL TARTRATE 25 MG TABLET (FP) NGT SCH ×2 (11:44→21:15)
[2018-03-13] MEDS: ZINC OXIDE 20% TOPICAL OINTMENT 30 GM TUBE TP SCH ×2 (11:45→21:17)
[2018-03-13] MEDS ORDERED: INSULIN (NOVOLOG) ASPART 100 UNITS/ML 10ML VIAL ONE (12:10)
--- NOTE | 2018-03-13 12:17 | PN ---
Progress Note, Physician History of Present Illness: Remains on NC O2 and enteral feeds after rectal tube d/baldev, f/u CT shows resolved colonic distension and volvulus, SR with PAC/PVC on Lopressor, abd less distended. - Current Medication List Current Medications: Active Medications Acetaminophen (Tylenol -) 650 mg PO Q6H PRN PRN Reason: FEVER Albuterol/Ipratropium (Duoneb -) 1 amp NEB RQID [facility] Last Admin: 03/13/18 11:23 Dose: 1 amp Atorvastatin Calcium (Lipitor -) 40 mg NGT HS [facility] Last Admin: 03/12/18 21:32 Dose: 40 mg Enoxaparin Sodium (Lovenox -) 100 mg SQ BID [facility] Last Admin: 03/13/18 11:44 Dose: 100 mg Famotidine/Sodium Chloride (Pepcid 20 Mg Premixed Ivpb -) 20 mg in 50 mls @ 100 mls/hr IVPB BID [facility] Last Admin: 03/13/18 11:44 Dose: 100 mls/hr Potassium Chloride/Dextrose/Sod Cl (D5-1/2ns+20 Meq Kcl -) 20 meq in 1,000 mls @ 75 mls/hr IV ASDIR [facility] Last Admin: 03/13/18 06:47 Dose: 75 mls/hr Potassium Chloride (Potassium Chloride 10 Meq Premix Ivpb -) 10 meq in 100 mls @ 100 mls/hr IVPB Q60M [facility] Stop: 03/13/18 13:44 Last Admin: 03/13/18 11:44 Dose: 100 mls/hr Insulin Aspart (Novolog Vial Sliding Scale -) 1 vial SQ [facility]; Protocol Last Admin: 03/13/18 12:06 Dose: 4 units Insulin Detemir (Levemir Vial) 20 units SQ [facility] Last Admin: 03/12/18 21:40 Dose: 20 units Lisinopril (Prinivil) 30 mg NGT DAILY [facility] Last Admin: 03/13/18 11:44 Dose: 30 mg Methyl Salicylate (Felix-Seaman -) 1 applic TP Q8H PRN PRN Reason: BODY ACHES Metoprolol Tartrate (Lopressor -) 25 mg NGT BID [facility] Last Admin: 03/13/18 11:44 Dose: 25 mg Multi-Ingredient Ointment (Zinc Oxide) 1 applic TP BID [facility] Last Admin: 03/13/18 11:45 Dose: 1 applic - Objective Vital Signs: Vital Signs Temperature 98.5 F 03/13/18 06:00 Pulse Rate 96 H 03/12/18 21:55 Respiratory Rate 20 03/13/18 06:00 Blood Pressure 150/82 03/13/18 06:00 O2 Sat by Pulse Oximetry (%) 98 03/12/18 21:00 Constitutional: Yes: No Distress, Calm Neck: Yes: Supple Cardiovascular: Yes: Regular Rate and Rhythm Respiratory: Yes: Regular, Diminished, On Nasal O2 Gastrointestinal: Yes: Soft, Hypoactive Bowel Sounds Edema: No Labs: CBC, BMP 03/13/18 07:40 03/13/18 07:40 INR, PTT INR 1.18 (0.83-1.09) H 02/28/18 20:06 - ....Imaging Chest X-ray: Report Reviewed (NAD) Problem List - Problems (1) Elevated troponin Code(s): R74.8 - ABNORMAL LEVELS OF OTHER SERUM ENZYMES (2) Rapid atrial fibrillation Code(s): I48.91 - UNSPECIFIED ATRIAL FIBRILLATION (3) Diastolic dysfunction Code(s): I51.9 - HEART DISEASE, UNSPECIFIED (4) H/O: CVA (cerebrovascular accident) Code(s): Z86.73 - PRSNL HX OF TIA (TIA), AND CEREB INFRC W/O RESID DEFICITS (5) Hyperlipidemia Code(s): E78.5 - HYPERLIPIDEMIA, UNSPECIFIED Qualifiers: Hyperlipidemia type: pure hypercholesterolemia Qualified Code(s): E78.00 - Pure hypercholesterolemia, unspecified; E78.0 - Pure hypercholesterolemia (6) Hypertension Code(s): I10 - ESSENTIAL (PRIMARY) HYPERTENSION Qualifiers: Hypertension type: essential hypertension Qualified Code(s): I10 - Essential (primary) hypertension (7) Pneumonia Code(s): J18.9 - PNEUMONIA, UNSPECIFIED ORGANISM Qualifiers: Pneumonia type: due to unspecified organism Laterality: right Lung location: lower lobe of lung Qualified Code(s): J18.1 - Lobar pneumonia, unspecified organism (8) Toxic metabolic encephalopathy Code(s): G92 - TOXIC ENCEPHALOPATHY (9) Demand ischemia Code(s): I24.8 - OTHER FORMS OF ACUTE ISCHEMIC HEART DISEASE (10) Premature ventricular contraction Code(s): I49.3 - VENTRICULAR PREMATURE DEPOLARIZATION (11) Volvulus of descending colon Code(s): K56.2 - VOLVULUS Assessment/Plan 12/20/2017 Echo: Normal LV size and fxn, tr MR, TR 1. RLL aspiration PNA - HCAP resolving 2. Intermittent sigmoid volvulus post rectal tube decompression since removed - now with Atonic sigmoid colon 3. LV Diastolic Dysfunction 4. Demand ischemia 5. Toxic-metabolic encephelopathy 6. 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 PAF->SR [id number] score 7 on Eliquis 8. PVC, PAC 9. Hypernatremia resolved P:1. Completed empiric abx course to cover possible aspiration pneumonia-HCAP, free H20 repletion, replete K 2. Continue Lopressor 25 bid for rate-control, lisinopril 30 qd, ASA 81 qd, Lipitor 40 qd 3. Change Lovenox to Eliquis 5 bid given that surgery recommends elective sigmoid colectomy after optimization 4. Inhaled bronchodilators standing and PRN,O2 to keep SpO2 >90% 5. Enteral feeds, transition to oral intake, await definitive repair as outpatient 6. DVT and GI prophylaxis
--- NOTE | 2018-03-13 15:41 | PN ---
Progress Note (short form) - Note Progress Note: alert, no abdominal pain at bedside NGT and rectal tube are out Vital Signs Period Temp Pulse Resp BP Sys/Pham Pulse Ox Last 24 Hr 98.1 F-99.8 F 69-96 16-20 138-158/69-88 96-98 cor-rrr lungs decreased bs at bases abd soft, nt ext trace edema CBC, BMP 03/13/18 07:40 03/13/18 07:40 Microbiology 03/11/18 14:50 Blood - Peripheral Venous Blood Culture - Preliminary NO GROWTH OBTAINED AFTER 48 HOURS, INCUBATION TO CONTINUE FOR 3 DAYS. 03/11/18 14:45 Blood - Peripheral Venous Blood Culture - Preliminary NO GROWTH OBTAINED AFTER 48 HOURS, INCUBATION TO CONTINUE FOR 3 DAYS. 02/28/18 20:25 Blood - Peripheral Venous Blood Culture - Final NO GROWTH AFTER 5 DAYS INCUBATION 02/28/18 20:25 Blood - Peripheral Venous Blood Culture - Final NO GROWTH AFTER 5 DAYS INCUBATION 03/03/18 06:00 Stool Clostridium difficile Antigen (AMY) - Final 03/03/18 06:00 Stool Clostridium difficile Toxin Assay - Final 03/01/18 20:30 Nares - Mrsa Screen - Right MRSA Screen - Final NO MRSA ISOLATED 03/01/18 20:30 Nares - Mrsa Screen - Left MRSA Screen - Final NO MRSA ISOLATED 02/28/18 22:53 Urine - Urine Clean Catch Urine Culture - Final NO GROWTH OBTAINED 03/01/18 11:20 Urine For Antigen Detection Legionella Antigen - Final 03/01/18 11:20 Urine For Antigen Detection Streptococcus pneumoniae Antigen (M - Final 02/28/18 23:30 Nasopharyngeal Swab Influenza Types A,B Antigen - Final 02/28/18 23:30 Nasopharyngeal Swab - Final a/p low grade temp- blood cultures negative, cxray unchanged, will observe for now RLL pneumonia-has completed 7 days zosyn, off antibiotics abdominal distention/volvulus- improved , rectal tube now out, trying to feed patient afib- improved on meds Problem List - Problems (1) Sepsis Code(s): A41.9 - SEPSIS, UNSPECIFIED ORGANISM Qualifiers: Sepsis type: sepsis due to unspecified organism Qualified Code(s): A41.9 - Sepsis, unspecified organism (2) Pneumonia Code(s): J18.9 - PNEUMONIA, UNSPECIFIED ORGANISM (3) Hypoxemia Code(s): R09.02 - HYPOXEMIA (4) COPD exacerbation Code(s): J44.1 - CHRONIC OBSTRUCTIVE PULMONARY DISEASE W (ACUTE) EXACERBATION (5) Rapid atrial fibrillation Code(s): I48.91 - UNSPECIFIED ATRIAL FIBRILLATION (6) Elevated troponin Code(s): R74.8 - ABNORMAL LEVELS OF OTHER SERUM ENZYMES (7) Prolonged Q-T interval on ECG Code(s): R94.31 - ABNORMAL ELECTROCARDIOGRAM [ECG] [EKG]
[2018-03-13] MEDS: INSULIN (LEVEMIR) 100 UNITS/ML UNITS SQ SCH (21:15)
[2018-03-13] MEDS: ATORVASTATIN CA 40 MG TABLET (FP) NGT SCH (21:15)
[2018-03-14 07:25] LABS: BASO % 1.1 % (0-2.0); EOS % 1.8 % (0-4.5); HEMATOCRIT 38.5 % (35.4-49); HEMOGLOBIN 12.9 GM/dL (11.7-16.9); LYMPH % 37.7 % (8-40); MCH 30.8 pg (25.7-33.7); MCHC 33.5 g/dl (32.0-35.9); MEAN CELL VOLUME 91.9 fl (80-96); MEAN PLT VOLUME 8.7 fl (7.5-11.1); MONO % 8.4 % (3.8-10.2); PLATELET COUNT 303 K/MM3 (134-434); RBC 4.18 M/mm3 (4.00-5.60); RDW 14.5 % (11.9-15.9)
[2018-03-14] MEDS: ALBUTEROL SO4 2.5/IPRATROPIUM 0.5 INH SOL 3 ML VIAL.NEB. NEB SCH ×4 (07:32→21:03)
[2018-03-14 07:46] LABS: ALBUMIN 2.3 g/dl (3.4-5.0); ALK PHOS 45 U/L (45-117); ANION GAP 8 MMOL/L (8-16); BILIRUBIN,TOTAL 0.8 mg/dL (0.2-1); BLOOD UREA NITROGEN 6 mg/dL (7-18); CALCIUM 8.3 mg/dL (8.5-10.1); CHLORIDE 100 mmol/L (98-107); CO2 28 mmol/L (21-32); CREATININE 0.5 mg/dL (0.55-1.3); GLUCOSE,RANDOM 189 mg/dL (74-106); POTASSIUM 3.6 mmol/L (3.5-5.1); SGOT/AST 20 U/L (15-37); SGPT/ALT 20 U/L (13-61); SODIUM 136 mmol/L (136-145); TOT PROT 6.4 g/dl (6.4-8.2)
[2018-03-14] MEDS: INSULIN SLIDING SCALE (NOVOLOG) 1 VIAL SQ SCH ×4 (08:10→22:01)
[2018-03-14] MEDS ORDERED: PT OWN MED DRAWER 7, Y5N ONE ×2 (10:14→21:49)
[2018-03-14] MEDS: FAMOTIDINE 20 MG/50 ML IVPB 20 MG/50 ML MG IVPB SCH ×2 (10:18→21:52)
[2018-03-14] MEDS: METOPROLOL TARTRATE 25 MG TABLET (FP) NGT SCH ×2 (10:19→21:52)
[2018-03-14] MEDS: ENOXAPARIN NA (PORCINE) 100 MG/1 ML DISP.SYRIN SQ SCH ×2 (10:19→21:54)
[2018-03-14] MEDS: LISINOPRIL 10 MG TABLET (FP) NGT SCH (10:19)
[2018-03-14] MEDS: ZINC OXIDE 20% TOPICAL OINTMENT 30 GM TUBE TP SCH ×2 (10:20→22:01)
--- NOTE | 2018-03-14 10:21 | PN ---
Progress Note (short form) - Note Progress Note: PULMONARY More awake today. Denies shortness of breath or chest pain. No abdominal pain. Vital Signs Period Temp Pulse Resp BP Sys/Pham Pulse Ox Last 24 Hr 98.2 F-99.8 F 69-111 18-20 126-141/69-87 96-96 Gen: more awake, alert Heart: RRR Lung: scattered rhonchi Abd: soft, nontender Ext: no edema CBC, BMP 03/14/18 06:15 03/14/18 06:15 Active Medications Acetaminophen (Tylenol -) 650 mg PO Q6H PRN PRN Reason: FEVER Albuterol/Ipratropium (Duoneb -) 1 amp NEB RQID [facility] Last Admin: 03/14/18 07:32 Dose: 1 amp Atorvastatin Calcium (Lipitor -) 40 mg NGT [facility] Last Admin: 03/13/18 21:15 Dose: 40 mg Enoxaparin Sodium (Lovenox -) 100 mg SQ BID [facility] Last Admin: 03/14/18 10:19 Dose: 100 mg Famotidine/Sodium Chloride (Pepcid 20 Mg Premixed Ivpb -) 20 mg in 50 mls @ 100 mls/hr IVPB BID [facility] Last Admin: 03/14/18 10:18 Dose: 100 mls/hr Potassium Chloride/Dextrose/Sod Cl (D5-1/2ns+20 Meq Kcl -) 20 meq in 1,000 mls @ 75 mls/hr IV ASDIR [facility] Last Admin: 03/13/18 06:47 Dose: 75 mls/hr Insulin Aspart (Novolog Vial Sliding Scale -) 1 vial SQ [facility]; Protocol Last Admin: 03/14/18 08:10 Dose: 2 units Insulin Detemir (Levemir Vial) 20 units SQ [facility] Last Admin: 03/13/18 21:15 Dose: 20 units Lisinopril (Prinivil) 30 mg NGT DAILY [facility] Last Admin: 03/14/18 10:19 Dose: 30 mg Methyl Salicylate (Felix-Seaman -) 1 applic TP Q8H PRN PRN Reason: BODY ACHES Metoprolol Tartrate (Lopressor -) 25 mg NGT BID [facility] Last Admin: 03/14/18 10:19 Dose: 25 mg Multi-Ingredient Ointment (Zinc Oxide) 1 applic TP BID [facility] Last Admin: 03/14/18 10:20 Dose: 1 applic A/P s/p Acute Hypoxic Respiratory Failure Pneumonia likely Aspiration clinically improved Sigmoid Volvulus s/p Rectal Tube Decompression Sepsis resolved LV Diastolic Dysfunction +Troponins likely Demand Ischemia Paroxysmal Atrial Fibrillation h/o CVA - completed antibiotics - O2 to keep SpO2 >90% - replete lytes - aspiration precautions - rate control - continue anticoagulation - DVT prophylaxis
--- NOTE | 2018-03-14 11:29 | PN ---
Progress Note, Physician Chief Complaint: Events noted Not in distress History of Present Illness: Patient was seen and examined. Awake. Chart was reviewed Denies chest pain, SOB or palpitations - Current Medication List Current Medications: Active Medications Acetaminophen (Tylenol -) 650 mg PO Q6H PRN PRN Reason: FEVER Albuterol/Ipratropium (Duoneb -) 1 amp NEB RQID [facility] Last Admin: 03/14/18 07:32 Dose: 1 amp Atorvastatin Calcium (Lipitor -) 40 mg NGT HS [facility] Last Admin: 03/13/18 21:15 Dose: 40 mg Enoxaparin Sodium (Lovenox -) 100 mg SQ BID [facility] Last Admin: 03/14/18 10:19 Dose: 100 mg Famotidine/Sodium Chloride (Pepcid 20 Mg Premixed Ivpb -) 20 mg in 50 mls @ 100 mls/hr IVPB BID [facility] Last Admin: 03/14/18 10:18 Dose: 100 mls/hr Potassium Chloride/Dextrose/Sod Cl (D5-1/2ns+20 Meq Kcl -) 20 meq in 1,000 mls @ 75 mls/hr IV ASDIR [facility] Last Admin: 03/13/18 06:47 Dose: 75 mls/hr Insulin Aspart (Novolog Vial Sliding Scale -) 1 vial SQ [facility]; Protocol Last Admin: 03/14/18 08:10 Dose: 2 units Insulin Detemir (Levemir Vial) 20 units SQ [facility] Last Admin: 03/13/18 21:15 Dose: 20 units Lisinopril (Prinivil) 30 mg NGT DAILY [facility] Last Admin: 03/14/18 10:19 Dose: 30 mg Methyl Salicylate (Felix-Seaman -) 1 applic TP Q8H PRN PRN Reason: BODY ACHES Metoprolol Tartrate (Lopressor -) 25 mg NGT BID [facility] Last Admin: 03/14/18 10:19 Dose: 25 mg Multi-Ingredient Ointment (Zinc Oxide) 1 applic TP BID [facility] Last Admin: 03/14/18 10:20 Dose: 1 applic - Objective Vital Signs: Vital Signs Temperature 99.5 F 03/14/18 05:00 Pulse Rate 111 H 03/14/18 05:00 Respiratory Rate 20 03/14/18 05:00 Blood Pressure 126/75 03/14/18 05:00 O2 Sat by Pulse Oximetry (%) 96 03/13/18 22:00 HENT: Yes: Atraumatic Neck: Yes: Supple Cardiovascular: Yes: Regular Rate and Rhythm, S1, S2 Respiratory: Yes: CTA Bilaterally Gastrointestinal: Yes: Normal Bowel Sounds, Soft. No: Tenderness Edema: No Labs: CBC, BMP 03/14/18 06:15 03/14/18 06:15 Problem List - Problems (1) Demand ischemia Code(s): I24.8 - OTHER FORMS OF ACUTE ISCHEMIC HEART DISEASE (2) Pneumonia Code(s): J18.9 - PNEUMONIA, UNSPECIFIED ORGANISM (3) Premature ventricular contraction Code(s): I49.3 - VENTRICULAR PREMATURE DEPOLARIZATION (4) Rapid atrial fibrillation Code(s): I48.91 - UNSPECIFIED ATRIAL FIBRILLATION (5) Sepsis Code(s): A41.9 - SEPSIS, UNSPECIFIED ORGANISM Qualifiers: Sepsis type: sepsis due to unspecified organism Qualified Code(s): A41.9 - Sepsis, unspecified organism (6) Volvulus of sigmoid colon Code(s): K56.2 - VOLVULUS (7) COPD (chronic obstructive pulmonary disease) Code(s): J44.9 - CHRONIC OBSTRUCTIVE PULMONARY DISEASE, UNSPECIFIED Qualifiers: Emphysema type: unspecified (8) Diabetes Code(s): E11.9 - TYPE 2 DIABETES MELLITUS WITHOUT COMPLICATIONS (9) Diastolic dysfunction Code(s): I51.9 - HEART DISEASE, UNSPECIFIED (10) H/O: CVA (cerebrovascular accident) Code(s): Z86.73 - PRSNL HX OF TIA (TIA), AND CEREB INFRC W/O RESID DEFICITS (11) Hyperlipidemia Code(s): E78.5 - HYPERLIPIDEMIA, UNSPECIFIED Qualifiers: Hyperlipidemia type: pure hypercholesterolemia Qualified Code(s): E78.00 - Pure hypercholesterolemia, unspecified; E78.0 - Pure hypercholesterolemia (12) Hypertension Code(s): I10 - ESSENTIAL (PRIMARY) HYPERTENSION Qualifiers: Hypertension type: essential hypertension Qualified Code(s): I10 - Essential (primary) hypertension (13) Toxic metabolic encephalopathy Code(s): G92 - TOXIC ENCEPHALOPATHY Assessment/Plan 1. RLL aspiration pneumonia 2. Intermittent sigmoid volvulus post rectal tube decompression 3. LV Diastolic Dysfunction 4. Post demand ischemia 5. Toxic-metabolic encephelopathy 6. History of CVA with residual right-sided weakness and chronic dysphagia 7. PAF currently in sinus [id number] score 7 on NOAC (Eliquis) 8. Hypernatremia PLAN: 1. Empiric antibiotic course to cover possible aspiration pneumonia 2. Continue Lopressor 25mg BID for rate-control, Lisinopril 30mg QD, ASA 81mg QD and Lipitor 40mg QD 3. Change Lovenox to Eliquis 5 bid given that surgery recommends elective sigmoid colectomy after optimization 4. Bronchodilators 5. DVT and GI prophylaxis Present management as per primary care team Rachid Richards MD
[2018-03-14] MEDS: D5-1/2NS+20 MEQ KCL - 20 MEQ/1,000 ML INFUS.BAG IV SCH (12:48)
--- NOTE | 2018-03-14 12:53 | PN ---
Progress Note (short form) - Note Progress Note: awake daughter at bedside no distress off NG tube Vital Signs - 24 hr 03/13/18 03/13/18 03/13/18 14:20 14:48 17:13 Temperature 98.6 F 99.8 F H 98.7 F Pulse Rate 69 77 Respiratory 18 20 Rate Blood Pressure 138/69 139/87 O2 Sat by Pulse Oximetry (%) 03/13/18 03/13/18 03/14/18 21:00 22:00 05:00 Temperature 98.2 F 99.5 F Pulse Rate 74 111 H Respiratory 18 20 Rate Blood Pressure 141/79 126/75 O2 Sat by Pulse 96 96 Oximetry (%) Current Medications Generic Name Dose Route Start Last Admin Trade Name Freq PRN Reason Stop Dose Admin Acetaminophen 650 mg 03/11/18 15:31 Tylenol - PO Q6H PRN FEVER Albuterol/Ipratropium 1 amp 03/11/18 16:00 03/14/18 07:32 Duoneb - NEB 1 amp RQID [facility] Administration Atorvastatin Calcium 40 mg 03/11/18 22:00 03/13/18 21:15 Lipitor - NGT 40 mg HS [facility] Administration Enoxaparin Sodium 100 mg 03/12/18 10:00 03/14/18 10:19 Lovenox - SQ 100 mg BID [facility] Administration Famotidine/Sodium Chloride 20 mg in 50 mls @ 100 mls/hr 03/11/18 22:00 10:18 Pepcid 20 Mg Premixed Ivpb - IVPB 100 mls/hr BID [facility] Administration Potassium Chloride/Dextrose/Sod Cl 20 meq in 1,000 mls @ 75 mls/hr 03/12/18 09 :00 03/14/18 12:48 D5-1/2ns+20 Meq Kcl - IV 75 mls/hr ASDIR [facility] Administration Insulin Aspart 1 vial 03/11/18 16:30 03/14/18 11:29 Novolog Vial Sliding Scale - SQ Not Given ACHS [facility] Protocol Insulin Detemir 20 units 03/11/18 22:00 03/13/18 21:15 Levemir Vial SQ 20 units HS [facility] Administration Lisinopril 30 mg 03/12/18 10:00 03/14/18 10:19 Prinivil NGT 30 mg DAILY [facility] Administration Methyl Salicylate 1 applic 03/11/18 15:31 Felix-Seaman - TP Q8H PRN BODY ACHES Metoprolol Tartrate 25 mg 03/11/18 22:00 03/14/18 10:19 Lopressor - NGT 25 mg BID [facility] Administration Multi-Ingredient Ointment 1 applic 03/11/18 22:00 03/14/18 10:20 Zinc Oxide TP 1 applic BID [facility] Administration Laboratory Results - last 24 hr 03/13/18 03/13/18 03/14/18 17:05 20:54 06:15 WBC 7.0 RBC 4.18 Hgb 12.9 Hct 38.5 MCV 91.9 MCH 30.8 MCHC 33.5 RDW 14.5 Plt Count 303 MPV 8.7 Absolute Neuts (auto) 3.6 Neutrophils % 51.0 Lymphocytes % 37.7 D Monocytes % 8.4 Eosinophils % 1.8 Basophils % 1.1 Nucleated RBC % 0 Sodium Potassium Chloride Carbon Dioxide Anion Gap BUN Creatinine Creat Clearance w eGFR POC Glucometer 209 205 Random Glucose Calcium Total Bilirubin AST ALT Alkaline Phosphatase Total Protein Albumin 03/14/18 03/14/18 03/14/18 06:15 06:42 11:28 WBC RBC Hgb Hct MCV MCH MCHC RDW Plt Count MPV Absolute Neuts (auto) Neutrophils % Lymphocytes % Monocytes % Eosinophils % Basophils % Nucleated RBC % Sodium 136 Potassium 3.6 Chloride 100 Carbon Dioxide 28 Anion Gap 8 BUN 6 L Creatinine 0.5 L Creat Clearance w eGFR > 60 POC Glucometer 183 143 Random Glucose 189 H Calcium 8.3 L Total Bilirubin 0.8 AST 20 ALT 20 Alkaline Phosphatase 45 Total Protein 6.4 Albumin 2.3 L S1 S2 irregular Lungs decreased, ronchi ABd- soft, NT, BS+ No edema Sepsis, pneumonia,volvulus, pneumonia RLL -- NGT and rectal tube out -- Xray noted-- has chronic volvulus -- MBS today -- off antibiotics -- continue with meds -- PT eval -- daughter wishes to have him dc home with home PT Problem List - Problems (1) Demand ischemia Code(s): I24.8 - OTHER FORMS OF ACUTE ISCHEMIC HEART DISEASE (2) Elevated troponin Code(s): R74.8 - ABNORMAL LEVELS OF OTHER SERUM ENZYMES (3) Pneumonia Code(s): J18.9 - PNEUMONIA, UNSPECIFIED ORGANISM (4) Rapid atrial fibrillation Code(s): I48.91 - UNSPECIFIED ATRIAL FIBRILLATION (5) Sepsis Code(s): A41.9 - SEPSIS, UNSPECIFIED ORGANISM Qualifiers: Sepsis type: sepsis due to unspecified organism Qualified Code(s): A41.9 - Sepsis, unspecified organism
--- NOTE | 2018-03-14 13:37 | PN ---
Progress Note, [employer] - Note Progress Note: NGT/rectal tube out. For MBS
--- NOTE | 2018-03-14 16:52 | PN ---
GI Progress Note Subjective: AXR revealed increase in bowel distention, particularly in lower abdomen Had loose BM today present at bedside: Mr. Quinonez offers no abdominal pain complaints Had MBS this evening - Objective Vital Signs: Vital Signs Temperature 98.7 F 03/14/18 15:20 Pulse Rate 79 03/14/18 15:20 Respiratory Rate 16 03/14/18 15:20 Blood Pressure 137/99 03/14/18 15:20 O2 Sat by Pulse Oximetry (%) 93 L 03/14/18 09:00 Constitutional: Calm Eyes: No: Sclera Icterus Cardiovascular: Yes: Regular Rate and Rhythm Respiratory: Yes: Diminished (at bases bilaterally) Gastrointestinal Inspection: Yes: Hernia (umbilical, non tender) ...Auscultate: Yes: Normoactive Bowel Sounds ...Palpate: No: Tenderness ...Percussion: Yes: Tympanitic (mild tympany in mid abdomen) Neurological: Yes: Alert Labs: CBC, BMP 03/14/18 06:15 03/14/18 06:15 INR, PTT INR 1.18 (0.83-1.09) H 02/28/18 20:06 Hepatic Panel Total Bilirubin 0.8 mg/dL (0.2-1) 03/14/18 06:15 AST 20 U/L (15-37) 03/14/18 06:15 ALT 20 U/L (13-61) 03/14/18 06:15 Alkaline Phosphatase 45 U/L (45-117) 03/14/18 06:15 Albumin 2.3 g/dl (3.4-5.0) L 03/14/18 06:15 Problem List - Problems (1) Volvulus of sigmoid colon Assessment/Plan: Suspect acute on chronic process Abdomen soft currently. Will need observation clinically at this point. If continued abdominal distention, will need rectal tube placement and surgical evaluation to discuss ? sigmolid resection / colostomy. Code(s): K56.2 - VOLVULUS
[2018-03-14] MEDS: ATORVASTATIN CA 40 MG TABLET (FP) NGT SCH (21:52)
[2018-03-14] MEDS: INSULIN (LEVEMIR) 100 UNITS/ML UNITS SQ SCH (22:00)
[2018-03-15] MEDS: INSULIN SLIDING SCALE (NOVOLOG) 1 VIAL SQ SCH ×4 (06:56→21:14)
[2018-03-15] MEDS: ALBUTEROL SO4 2.5/IPRATROPIUM 0.5 INH SOL 3 ML VIAL.NEB. NEB SCH ×4 (07:27→20:24)
[2018-03-15] MEDS ORDERED: PT OWN MED DRAWER 7, Y5N ONE (11:41)
[2018-03-15] MEDS: METOPROLOL TARTRATE 25 MG TABLET (FP) NGT SCH ×2 (11:45→21:13)
[2018-03-15] MEDS: LISINOPRIL 10 MG TABLET (FP) NGT SCH (11:45)
[2018-03-15] MEDS: ENOXAPARIN NA (PORCINE) 100 MG/1 ML DISP.SYRIN SQ SCH ×2 (11:45→21:19)
[2018-03-15] MEDS: ZINC OXIDE 20% TOPICAL OINTMENT 30 GM TUBE TP SCH ×2 (11:45→21:23)
[2018-03-15] MEDS: FAMOTIDINE 20 MG/50 ML IVPB 20 MG/50 ML MG IVPB SCH ×2 (11:45→21:23)
--- NOTE | 2018-03-15 14:27 | PN ---
Progress Note, Physician History of Present Illness: Remains on NC O2 and enteral feeds after rectal tube d/baldev, f/u CT shows resolved colonic distension and volvulus, SR with PAC/PVC on Lopressor, abd not distended although AXR shows increased colonic distension. - Current Medication List Current Medications: Active Medications Acetaminophen (Tylenol -) 650 mg PO Q6H PRN PRN Reason: FEVER Albuterol/Ipratropium (Duoneb -) 1 amp NEB RQID [facility] Last Admin: 03/15/18 12:04 Dose: 1 amp Amino Acids (Prosource No Carb Liquid Pkt) 30 ml PO BID@0800,1730 [facility] Atorvastatin Calcium (Lipitor -) 40 mg NGT HS [facility] Last Admin: 03/14/18 21:52 Dose: 40 mg Enoxaparin Sodium (Lovenox -) 100 mg SQ BID [facility] Last Admin: 03/15/18 11:45 Dose: 100 mg Famotidine/Sodium Chloride (Pepcid 20 Mg Premixed Ivpb -) 20 mg in 50 mls @ 100 mls/hr IVPB BID [facility] Last Admin: 03/15/18 11:45 Dose: 100 mls/hr Potassium Chloride/Dextrose/Sod Cl (D5-1/2ns+20 Meq Kcl -) 20 meq in 1,000 mls @ 75 mls/hr IV ASDIR [facility] Last Admin: 03/14/18 12:48 Dose: 75 mls/hr Insulin Aspart (Novolog Vial Sliding Scale -) 1 vial SQ [facility]; Protocol Last Admin: 03/15/18 12:22 Dose: 6 units Insulin Detemir (Levemir Vial) 20 units SQ [facility] Last Admin: 03/14/18 22:00 Dose: 20 units Lisinopril (Prinivil) 30 mg NGT DAILY [facility] Last Admin: 03/15/18 11:45 Dose: 30 mg Methyl Salicylate (Felix-Seaman -) 1 applic TP Q8H PRN PRN Reason: BODY ACHES Metoprolol Tartrate (Lopressor -) 25 mg NGT BID [facility] Last Admin: 03/15/18 11:45 Dose: 25 mg Multi-Ingredient Ointment (Zinc Oxide) 1 applic TP BID [facility] Last Admin: 03/15/18 11:45 Dose: 1 applic - Objective Vital Signs: Vital Signs Temperature 98.7 F 03/15/18 06:00 Pulse Rate 93 H 03/15/18 06:00 Respiratory Rate 20 03/15/18 06:00 Blood Pressure 124/68 03/15/18 06:00 O2 Sat by Pulse Oximetry (%) 93 L 03/14/18 09:00 Constitutional: Yes: No Distress, Calm, Thin Neck: Yes: Supple Cardiovascular: Yes: Regular Rate and Rhythm Respiratory: Yes: Regular, Diminished Gastrointestinal: Yes: Distention, Hypoactive Bowel Sounds Edema: No Labs: CBC, BMP 03/14/18 06:15 03/14/18 06:15 INR, PTT INR 1.18 (0.83-1.09) H 02/28/18 20:06 Problem List - Problems (1) Elevated troponin Code(s): R74.8 - ABNORMAL LEVELS OF OTHER SERUM ENZYMES (2) Rapid atrial fibrillation Code(s): I48.91 - UNSPECIFIED ATRIAL FIBRILLATION (3) Diastolic dysfunction Code(s): I51.9 - HEART DISEASE, UNSPECIFIED (4) H/O: CVA (cerebrovascular accident) Code(s): Z86.73 - PRSNL HX OF TIA (TIA), AND CEREB INFRC W/O RESID DEFICITS (5) Hyperlipidemia Code(s): E78.5 - HYPERLIPIDEMIA, UNSPECIFIED Qualifiers: Hyperlipidemia type: pure hypercholesterolemia Qualified Code(s): E78.00 - Pure hypercholesterolemia, unspecified; E78.0 - Pure hypercholesterolemia (6) Hypertension Code(s): I10 - ESSENTIAL (PRIMARY) HYPERTENSION Qualifiers: Hypertension type: essential hypertension Qualified Code(s): I10 - Essential (primary) hypertension (7) Pneumonia Code(s): J18.9 - PNEUMONIA, UNSPECIFIED ORGANISM Qualifiers: Pneumonia type: due to unspecified organism Laterality: right Lung location: lower lobe of lung Qualified Code(s): J18.1 - Lobar pneumonia, unspecified organism (8) Toxic metabolic encephalopathy Code(s): G92 - TOXIC ENCEPHALOPATHY (9) Demand ischemia Code(s): I24.8 - OTHER FORMS OF ACUTE ISCHEMIC HEART DISEASE (10) Premature ventricular contraction Code(s): I49.3 - VENTRICULAR PREMATURE DEPOLARIZATION (11) Volvulus of descending colon Code(s): K56.2 - VOLVULUS Assessment/Plan 12/20/2017 Echo: Normal LV size and fxn, tr MR, TR 1. RLL aspiration PNA - HCAP resolved 2. Intermittent sigmoid volvulus post rectal tube decompression since removed - now with Atonic sigmoid colon 3. LV Diastolic Dysfunction 4. Demand ischemia 5. Toxic-metabolic encephelopathy 6. 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 PAF->SR [id number] score 7 on Eliquis 8. PVC, PAC 9. Hypernatremia resolved P:1. Completed empiric abx course to cover possible aspiration pneumonia-HCAP, free H20 repletion, replete K 2. Continue Lopressor 25 bid for rate-control, lisinopril 30 qd, ASA 81 qd, Lipitor 40 qd 3. Transition Lovenox 100 bid->Eliquis 5 bid given that surgery recommends elective sigmoid colectomy after optimization, may require replacement of rectal tube 4. Inhaled bronchodilators standing and PRN,O2 to keep SpO2 >90% 5. Dysphagia diet as tolerated, await definitive repair as outpatient 6. DVT and GI prophylaxis
--- NOTE | 2018-03-15 14:46 | PN ---
Progress Note, Physician History of Present Illness: pulmonary awake,no distress,-congestion - Current Medication List Current Medications: Active Medications Acetaminophen (Tylenol -) 650 mg PO Q6H PRN PRN Reason: FEVER Albuterol/Ipratropium (Duoneb -) 1 amp NEB RQID [facility] Last Admin: 03/15/18 12:04 Dose: 1 amp Amino Acids (Prosource No Carb Liquid Pkt) 30 ml PO BID@0800,1730 [facility] Atorvastatin Calcium (Lipitor -) 40 mg NGT HS [facility] Last Admin: 03/14/18 21:52 Dose: 40 mg Enoxaparin Sodium (Lovenox -) 100 mg SQ BID [facility] Last Admin: 03/15/18 11:45 Dose: 100 mg Famotidine/Sodium Chloride (Pepcid 20 Mg Premixed Ivpb -) 20 mg in 50 mls @ 100 mls/hr IVPB BID [facility] Last Admin: 03/15/18 11:45 Dose: 100 mls/hr Potassium Chloride/Dextrose/Sod Cl (D5-1/2ns+20 Meq Kcl -) 20 meq in 1,000 mls @ 75 mls/hr IV ASDIR [facility] Last Admin: 03/14/18 12:48 Dose: 75 mls/hr Insulin Aspart (Novolog Vial Sliding Scale -) 1 vial SQ [facility]; Protocol Last Admin: 03/15/18 12:22 Dose: 6 units Insulin Detemir (Levemir Vial) 20 units SQ [facility] Last Admin: 03/14/18 22:00 Dose: 20 units Lisinopril (Prinivil) 30 mg NGT DAILY [facility] Last Admin: 03/15/18 11:45 Dose: 30 mg Methyl Salicylate (Felix-Seaman -) 1 applic TP Q8H PRN PRN Reason: BODY ACHES Metoprolol Tartrate (Lopressor -) 25 mg NGT BID [facility] Last Admin: 03/15/18 11:45 Dose: 25 mg Multi-Ingredient Ointment (Zinc Oxide) 1 applic TP BID [facility] Last Admin: 03/15/18 11:45 Dose: 1 applic - Objective Vital Signs: Vital Signs Temperature 98.7 F 03/15/18 06:00 Pulse Rate 93 H 03/15/18 06:00 Respiratory Rate 20 03/15/18 06:00 Blood Pressure 124/68 03/15/18 06:00 O2 Sat by Pulse Oximetry (%) 93 L 03/14/18 09:00 Constitutional: Yes: Well Nourished, Calm Eyes: Yes: WNL HENT: Yes: WNL Neck: Yes: WNL Cardiovascular: Yes: Regular Rate and Rhythm, S1, S2 Respiratory: Yes: Rhonchi (few rhonchi) Gastrointestinal: Yes: Normal Bowel Sounds, Soft Extremities: Yes: WNL Edema: No Labs: CBC, BMP 03/14/18 06:15 03/14/18 06:15 INR, PTT INR 1.18 (0.83-1.09) H 02/28/18 20:06 Problem List - Problems (1) Hypoxemia Code(s): R09.02 - HYPOXEMIA (2) Sepsis Code(s): A41.9 - SEPSIS, UNSPECIFIED ORGANISM Qualifiers: Sepsis type: sepsis due to unspecified organism Qualified Code(s): A41.9 - Sepsis, unspecified organism (3) Volvulus of descending colon Code(s): K56.2 - VOLVULUS (4) COPD (chronic obstructive pulmonary disease) Code(s): J44.9 - CHRONIC OBSTRUCTIVE PULMONARY DISEASE, UNSPECIFIED Qualifiers: Emphysema type: unspecified (5) Diabetes Code(s): E11.9 - TYPE 2 DIABETES MELLITUS WITHOUT COMPLICATIONS (6) Diastolic dysfunction Code(s): I51.9 - HEART DISEASE, UNSPECIFIED (7) H/O: CVA (cerebrovascular accident) Code(s): Z86.73 - PRSNL HX OF TIA (TIA), AND CEREB INFRC W/O RESID DEFICITS (8) Hypertension Code(s): I10 - ESSENTIAL (PRIMARY) HYPERTENSION Qualifiers: Hypertension type: essential hypertension Qualified Code(s): I10 - Essential (primary) hypertension (9) Pneumonia Code(s): J18.9 - PNEUMONIA, UNSPECIFIED ORGANISM Qualifiers: Pneumonia type: due to unspecified organism Laterality: right Lung location: lower lobe of lung Qualified Code(s): J18.1 - Lobar pneumonia, unspecified organism (10) Respiratory distress Code(s): R06.00 - DYSPNEA, UNSPECIFIED (11) Hypokalemia Code(s): E87.6 - HYPOKALEMIA (12) Pneumonia Code(s): J18.9 - PNEUMONIA, UNSPECIFIED ORGANISM (13) Prolonged Q-T interval on ECG Code(s): R94.31 - ABNORMAL ELECTROCARDIOGRAM [ECG] [EKG] Assessment/Plan ASSESSMENT AND PLAN: s/p Acute Hypoxic Respiratory Failure Pneumonia likely Aspiration clinically improved Sigmoid Volvulus s/p Rectal Tube Decompression Sepsis Lactic Acidosis LV Diastolic Dysfunction +Troponins likely Demand Ischemia Paroxysmal Atrial Fibrillation h/o CVA - nasal cannula - aspiration precautions - rate control - anticoagulation - DVT prophylaxis DR MIGUEL
[2018-03-15] MEDS: AMINO ACIDS/PROTEIN HYDROLYS 30 ML LIQUID.PKT PO SCH (17:18)
--- NOTE | 2018-03-15 17:37 | PN ---
Progress Note (short form) - Note Progress Note: awake MBS results noted no distress Vital Signs - 24 hr 03/14/18 03/14/18 03/15/18 21:15 22:00 06:00 Temperature 98.2 F 98.2 F 98.7 F Pulse Rate 74 72 93 H Respiratory 18 18 20 Rate Blood Pressure 135/77 132/78 124/68 03/15/18 15:56 Temperature 98.6 F Pulse Rate 98 H Respiratory 18 Rate Blood Pressure 131/53 L Current Medications Generic Name Dose Route Start Last Admin Trade Name Freq PRN Reason Stop Dose Admin Acetaminophen 650 mg 03/11/18 15:31 Tylenol - PO Q6H PRN FEVER Albuterol/Ipratropium 1 amp 03/11/18 16:00 03/15/18 16:17 Duoneb - NEB 1 amp RQID [facility] Administration Amino Acids 30 ml 03/15/18 17:30 03/15/18 17:18 Prosource No Carb Liquid Pkt PO 30 ml BID@0800,1730 [facility] Administration Atorvastatin Calcium 40 mg 03/11/18 22:00 03/14/18 21:52 Lipitor - NGT 40 mg HS [facility] Administration Enoxaparin Sodium 100 mg 03/12/18 10:00 03/15/18 11:45 Lovenox - SQ 100 mg BID [facility] Administration Famotidine/Sodium Chloride 20 mg in 50 mls @ 100 mls/hr 03/11/18 22:00 11:45 Pepcid 20 Mg Premixed Ivpb - IVPB 100 mls/hr BID [facility] Administration Potassium Chloride/Dextrose/Sod Cl 20 meq in 1,000 mls @ 75 mls/hr 03/12/18 09 :00 03/14/18 12:48 D5-1/2ns+20 Meq Kcl - IV 75 mls/hr ASDIR [facility] Administration Insulin Aspart 1 vial 03/11/18 16:30 03/15/18 17:19 Novolog Vial Sliding Scale - SQ 4 units ACHS [facility] Administration Protocol Insulin Detemir 20 units 03/11/18 22:00 03/14/18 22:00 Levemir Vial SQ 20 units HS [facility] Administration Lisinopril 30 mg 03/12/18 10:00 03/15/18 11:45 Prinivil NGT 30 mg DAILY [facility] Administration Methyl Salicylate 1 applic 03/11/18 15:31 Felix-Seaman - TP Q8H PRN BODY ACHES Metoprolol Tartrate 25 mg 03/11/18 22:00 03/15/18 11:45 Lopressor - NGT 25 mg BID [facility] Administration Multi-Ingredient Ointment 1 applic 03/11/18 22:00 03/15/18 11:45 Zinc Oxide TP 1 applic BID [facility] Administration Laboratory Results - last 24 hr 03/14/18 03/15/18 03/15/18 21:39 06:53 12:21 POC Glucometer 183 197 294 03/15/18 17:19 POC Glucometer 249 S1 S2 irregular Lungs decreased, ronchi ABd- soft, NT, BS+ No edema Sepsis, pneumonia,volvulus, pneumonia RLL -- NGT and rectal tube out -- Xray noted-- has chronic volvulus -- MBS noted -- off antibiotics -- continue with meds -- PT eval -- daughter wishes to have him dc home with home PT -- monitor for worsening abd distension Problem List - Problems (1) Demand ischemia Code(s): I24.8 - OTHER FORMS OF ACUTE ISCHEMIC HEART DISEASE (2) Elevated troponin Code(s): R74.8 - ABNORMAL LEVELS OF OTHER SERUM ENZYMES (3) Pneumonia Code(s): J18.9 - PNEUMONIA, UNSPECIFIED ORGANISM (4) Rapid atrial fibrillation Code(s): I48.91 - UNSPECIFIED ATRIAL FIBRILLATION (5) Sepsis Code(s): A41.9 - SEPSIS, UNSPECIFIED ORGANISM Qualifiers: Sepsis type: sepsis due to unspecified organism Qualified Code(s): A41.9 - Sepsis, unspecified organism
--- NOTE | 2018-03-15 17:50 | PN ---
Progress Note, [employer]ENDER - Note Progress Note: MBS reviewed. Pt on pureed diet/nectar thick liquid. Selected Entries 03/14/18 03/14/18 03/14/18 05:00 09:35 15:20 Breakfast Lunch Temperature 99.5 F 99 F 98.7 F 03/14/18 03/14/18 03/14/18 17:11 21:15 22:00 Breakfast Lunch Temperature 98.5 F 98.2 F 98.2 F 03/15/18 03/15/18 06:00 15:56 Breakfast 100% Lunch 100% Temperature 98.7 F 98.6 F Monitor tolerance
[2018-03-15] MEDS: ATORVASTATIN CA 40 MG TABLET (FP) NGT SCH (21:13)
[2018-03-15] MEDS: INSULIN (LEVEMIR) 100 UNITS/ML UNITS SQ SCH (21:19)
[2018-03-16] MEDS: INSULIN SLIDING SCALE (NOVOLOG) 1 VIAL SQ SCH ×4 (06:09→22:08)
[2018-03-16] MEDS: ALBUTEROL SO4 2.5/IPRATROPIUM 0.5 INH SOL 3 ML VIAL.NEB. NEB SCH ×4 (07:26→20:30)
[2018-03-16] MEDS: AMINO ACIDS/PROTEIN HYDROLYS 30 ML LIQUID.PKT PO SCH ×2 (08:50→16:45)
[2018-03-16] MEDS: D5-1/2NS+20 MEQ KCL - 20 MEQ/1,000 ML INFUS.BAG IV SCH ×2 (08:50→09:10)
--- NOTE | 2018-03-16 09:03 | PN ---
GI Progress Note Subjective: No acute events Sitting up. Seems more awake. On pureed diet - Objective Vital Signs: Vital Signs Temperature 98.4 F 03/16/18 06:00 Pulse Rate 79 03/16/18 06:00 Respiratory Rate 20 03/16/18 06:00 Blood Pressure 134/83 03/16/18 06:00 O2 Sat by Pulse Oximetry (%) 100 03/15/18 22:00 Constitutional: Calm Eyes: No: Sclera Icterus Cardiovascular: Yes: Regular Rate and Rhythm. No: Murmur Respiratory: Yes: Diminished (at bases bilaterally) Gastrointestinal Inspection: Yes: Distention (softly protuberant). No: Scars ...Auscultate: Yes: Normoactive Bowel Sounds ...Palpate: No: Tenderness ...Percussion: Yes: Tympanitic Edema: No (No LE edema) Neurological: Yes: Alert Labs: CBC, BMP 03/14/18 06:15 03/14/18 06:15 INR, PTT INR 1.18 (0.83-1.09) H 02/28/18 20:06 Problem List - Problems (1) Volvulus of sigmoid colon Assessment/Plan: Acute on chronic atonic sigmoid colon Clinically more distended today however remains asymptomatic Will likely need intermittent rectal tube placement Code(s): K56.2 - VOLVULUS
[2018-03-16] MEDS ORDERED: PT OWN MED DRAWER 7, Y5N ONE (09:22)
[2018-03-16] MEDS: METOPROLOL TARTRATE 25 MG TABLET (FP) NGT SCH (09:28)
[2018-03-16] MEDS: ENOXAPARIN NA (PORCINE) 100 MG/1 ML DISP.SYRIN SQ SCH (09:28)
[2018-03-16] MEDS: FAMOTIDINE 20 MG/50 ML IVPB 20 MG/50 ML MG IVPB SCH (09:28)
[2018-03-16] MEDS: ZINC OXIDE 20% TOPICAL OINTMENT 30 GM TUBE TP SCH ×2 (09:29→22:04)
[2018-03-16] MEDS: LISINOPRIL 10 MG TABLET (FP) NGT SCH (09:29)
--- NOTE | 2018-03-16 09:54 | PN ---
Progress Note (short form) - Note Progress Note: awake more conversant able to tolerate PO no distress Vital Signs - 24 hr 03/15/18 03/15/18 03/15/18 15:56 16:45 21:00 Temperature 98.6 F 98.5 F Pulse Rate 98 H 77 Respiratory 18 20 Rate Blood Pressure 131/53 L 141/81 O2 Sat by Pulse 100 Oximetry (%) 03/15/18 03/16/18 22:00 06:00 Temperature 98.2 F 98.4 F Pulse Rate 76 79 Respiratory 18 20 Rate Blood Pressure 135/56 L 134/83 O2 Sat by Pulse 100 Oximetry (%) Current Medications Generic Name Dose Route Start Last Admin Trade Name Freq PRN Reason Stop Dose Admin Acetaminophen 650 mg 03/11/18 15:31 Tylenol - PO Q6H PRN FEVER Albuterol/Ipratropium 1 amp 03/11/18 16:00 03/16/18 07:26 Duoneb - NEB 1 amp RQID FLORIN Administration Amino Acids 30 ml 03/15/18 17:30 03/16/18 08:50 Prosource No Carb Liquid Pkt PO 30 ml BID@0800,1730 FLORIN Administration Apixaban 5 mg 03/16/18 22:00 Eliquis - PO BID FLORIN Atorvastatin Calcium 40 mg 03/16/18 10:16 Lipitor - PO HS FLORIN Famotidine/Sodium Chloride 20 mg in 50 mls @ 100 mls/hr 03/11/18 22:00 09:28 Pepcid 20 Mg Premixed Ivpb - IVPB 100 mls/hr BID FLORIN Administration Insulin Aspart 1 vial 03/11/18 16:30 03/16/18 06:09 Novolog Vial Sliding Scale - SQ 4 units ACHS FLORIN Administration Protocol Insulin Detemir 20 units 03/11/18 22:00 03/15/18 21:19 Levemir Vial SQ 20 units HS FLORIN Administration Lisinopril 30 mg 03/16/18 10:16 Prinivil PO DAILY FLORIN Methyl Salicylate 1 applic 03/11/18 15:31 Felix-Seaman - TP Q8H PRN BODY ACHES Metoprolol Tartrate 25 mg 03/16/18 10:16 Lopressor - PO BID FLORIN Multi-Ingredient Ointment 1 applic 03/11/18 22:00 03/16/18 09:29 Zinc Oxide TP 1 applic BID FLORIN Administration Laboratory Results - last 24 hr 03/15/18 03/15/18 03/15/18 12:21 17:19 21:12 POC Glucometer 294 249 252 03/16/18 05:57 POC Glucometer 221 S1 S2 irregular Lungs decreased, ronchi ABd- soft, NT, BS+ No edema Sepsis, pneumonia,volvulus, pneumonia RLL -- tolerating diet -- off antibiotics -- continue with meds -- PT eval -- daughter wishes to have him dc home with home PT -- monitor for worsening abd distension-- more today -- no bm today -- frequent turning Problem List - Problems (1) Demand ischemia Code(s): I24.8 - OTHER FORMS OF ACUTE ISCHEMIC HEART DISEASE (2) Elevated troponin Code(s): R74.8 - ABNORMAL LEVELS OF OTHER SERUM ENZYMES (3) Pneumonia Code(s): J18.9 - PNEUMONIA, UNSPECIFIED ORGANISM (4) Rapid atrial fibrillation Code(s): I48.91 - UNSPECIFIED ATRIAL FIBRILLATION (5) Sepsis Code(s): A41.9 - SEPSIS, UNSPECIFIED ORGANISM Qualifiers: Sepsis type: sepsis due to unspecified organism Qualified Code(s): A41.9 - Sepsis, unspecified organism
--- NOTE | 2018-03-16 10:09 | PN ---
Progress Note (short form) - Note Progress Note: PULMONARY KNOWN BY OUR SERVICE AWAKE/ALERT APPEARS COMFORTABLE VSS Constitutional: Yes: Well Nourished, Calm Eyes: Yes: WNL HENT: Yes: WNL Neck: Yes: WNL Cardiovascular: Yes: Regular Rate and Rhythm, S1, S2 Respiratory: Yes: Rhonchi (few rhonchi) Gastrointestinal: Yes: Normal Bowel Sounds, Soft Extremities: Yes: WNL Edema: No LABS/MEDS/NOTES/IMAGES/MBS REVIEWD ASPIRATION PRECAUTIONS/PUREE DIET.THICKENED LIQUIDS ASSESSMENT AND PLAN: s/p Acute Hypoxic Respiratory Failure Pneumonia likely Aspiration clinically improved Sigmoid Volvulus s/p Rectal Tube Decompression Sepsis Lactic Acidosis LV Diastolic Dysfunction +Troponins likely Demand Ischemia Paroxysmal Atrial Fibrillation h/o CVA - nasal cannula - aspiration precautions - rate control - anticoagulation - DVT prophylaxis Britton GILES MD
[2018-03-16] MEDS ORDERED: LISINOPRIL 10 MG TABLET (FP) PO SCH (10:16)
--- NOTE | 2018-03-16 14:24 | PN ---
Progress Note (short form) - Note Progress Note: Chief Complaint: Events noted, notes reviewed, overall no change in status History of Present Illness: Seen and examined in the ICU. Events noted, notes reviewed, overall no change in status Echocardiography dated 12/20/2017 revealed normal LV size and function, trace MR and TR Medications: Current Medications Acetaminophen (Tylenol -) 650 mg PO Q6H PRN PRN Reason: FEVER Albuterol/Ipratropium (Duoneb -) 1 amp NEB RQID [facility] Last Admin: 03/16/18 11:13 Dose: 1 amp Amino Acids (Prosource No Carb Liquid Pkt) 30 ml PO BID@0800,1730 [facility] Last Admin: 03/16/18 08:50 Dose: 30 ml Apixaban (Eliquis -) 5 mg PO BID [facility] Atorvastatin Calcium (Lipitor -) 40 mg PO HS [facility] Insulin Aspart (Novolog Vial Sliding Scale -) 1 vial SQ ACHS [facility]; Protocol Last Admin: 03/16/18 11:29 Dose: 6 units Insulin Detemir (Levemir Vial) 20 units SQ HS [facility] Last Admin: 03/15/18 21:19 Dose: 20 units Lisinopril (Prinivil) 30 mg PO DAILY [facility] Methyl Salicylate (Felix-Seaman -) 1 applic TP Q8H PRN PRN Reason: BODY ACHES Metoprolol Tartrate (Lopressor -) 25 mg PO BID [facility] Multi-Ingredient Ointment (Zinc Oxide) 1 applic TP BID [facility] Last Admin: 03/16/18 09:29 Dose: 1 applic Ranitidine HCl (Zantac -) 150 mg PO BID [facility] Vital Signs: Last Vital Signs Temp Pulse Resp BP Pulse Ox 98.1 F 65 20 149/69 100 03/16/18 10:00 03/16/18 10:00 03/16/18 10:00 03/16/18 10:00 03/16/18 10:00 Intake & Output 03/13/18 03/14/18 03/15/18 03/16/18 23:59 23:59 23:59 23:59 Intake Total 2124 1443 1470 900 Balance 2124 1443 1470 900 Weight 218 lb 4.8 oz 212 lb 219 lb 11.2 oz Neck: Supple Negative JVD No Bruit Respiratory: Diminished Breath Sounds at the Bases Bilateral Scattered Rhonchi Cardiovascular: S1 S2 Regularly Rate and Rhythm Gastrointestinal: Soft Distended Benign Normal Bowel Sounds Ext: Edema Bilateral Labs: CBC, BMP 03/14/18 06:15 03/14/18 06:15 Assessment/Plan ASSESSMENT: 1. Right lower lobe aspiration pneumonia, resolved 2. Intermittent sigmoid volvulus post rectal tube decompression 3. 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 Diastolic LV dysfunction with clinical class 0-I NYHA classification LV failure, compensated/euvolemic 5. Paroxysmal atrial fibrillation [id number] score 7 on DOAC's/Eliquis 6. Toxic-metabolic encephelopathy, persistent 7. History of CVA with residual right-sided weakness PLAN: 1. Continue Lopressor 2. Continue Lisinopril, and titrate dose as tolerated, hemodynamics permitting 3. Continue Lipitor 4. Continue Eliquis with close monitoring of CBC Kadeem Barba M.D.
[2018-03-16] MEDS: APIXABAN 5 MG TABLET PO SCH (22:03)
[2018-03-16] MEDS: METOPROLOL TARTRATE 25 MG TABLET (FP) PO SCH (22:03)
[2018-03-16] MEDS: INSULIN (LEVEMIR) 100 UNITS/ML UNITS SQ SCH (22:03)
[2018-03-16] MEDS: ATORVASTATIN CA 40 MG TABLET (FP) PO SCH (22:03)
[2018-03-16] MEDS: RANITIDINE HCL 150 MG TABLET (FP) PO SCH (22:04)
[2018-03-16] MEDS ORDERED: INSULIN (NOVOLOG) ASPART 100 UNITS/ML 10ML VIAL ONE (22:06)
[2018-03-17] MEDS: INSULIN SLIDING SCALE (NOVOLOG) 1 VIAL SQ SCH ×4 (07:17→21:35)
[2018-03-17] MEDS: ALBUTEROL SO4 2.5/IPRATROPIUM 0.5 INH SOL 3 ML VIAL.NEB. NEB SCH ×4 (07:37→20:25)
[2018-03-17 07:55] LABS: HEMATOCRIT 39.2 % (35.4-49); HEMOGLOBIN 13.4 GM/dL (11.7-16.9); MCH 31.1 pg (25.7-33.7); MCHC 34.3 g/dl (32.0-35.9); MEAN CELL VOLUME 90.7 fl (80-96); PLATELET COUNT 264 K/MM3 (134-434); RBC 4.32 M/mm3 (4.00-5.60); RDW 14.5 % (11.9-15.9); WHITE BLOOD COUNT 5.8 K/mm3 (4.0-10.0)
[2018-03-17 08:23] LABS: ALBUMIN 2.4 g/dl (3.4-5.0); ALK PHOS 50 U/L (45-117); ANION GAP 8 MMOL/L (8-16); BILIRUBIN,TOTAL 0.4 mg/dL (0.2-1); BLOOD UREA NITROGEN 5 mg/dL (7-18); CALCIUM 8.5 mg/dL (8.5-10.1); CHLORIDE 102 mmol/L (98-107); CO2 28 mmol/L (21-32); CREATININE 0.6 mg/dL (0.55-1.3); GLUCOSE,RANDOM 152 mg/dL (74-106); POTASSIUM 3.5 mmol/L (3.5-5.1); SGOT/AST 18 U/L (15-37); SGPT/ALT 23 U/L (13-61); SODIUM 138 mmol/L (136-145); TOT PROT 6.4 g/dl (6.4-8.2)
[2018-03-17] MEDS: RANITIDINE HCL 150 MG TABLET (FP) PO SCH ×2 (09:42→21:32)
[2018-03-17] MEDS: APIXABAN 5 MG TABLET PO SCH ×2 (09:42→21:32)
[2018-03-17] MEDS: METOPROLOL TARTRATE 25 MG TABLET (FP) PO SCH ×2 (09:43→21:32)
[2018-03-17] MEDS: AMINO ACIDS/PROTEIN HYDROLYS 30 ML LIQUID.PKT PO SCH ×2 (09:43→17:36)
--- NOTE | 2018-03-17 10:41 | PN ---
GI Progress Note Subjective: No acute events Patient awake, denies abdominal pain - Objective Vital Signs: Vital Signs Temperature 98.3 F 03/17/18 06:00 Pulse Rate 76 03/17/18 06:00 Respiratory Rate 20 03/17/18 06:00 Blood Pressure 134/84 03/17/18 06:00 O2 Sat by Pulse Oximetry (%) 100 03/16/18 22:00 Constitutional: Calm Eyes: No: Sclera Icterus Cardiovascular: Yes: Regular Rate and Rhythm Respiratory: Yes: Diminished (at bases, poor insp effort) Gastrointestinal Inspection: Yes: Distention (increased from prior exam), Hernia (umbilical, non-tender). No: Scars ...Auscultate: Yes: Normoactive Bowel Sounds ...Percussion: Yes: Tympanitic Edema: No (No LE edema) Labs: CBC, BMP 03/17/18 06:40 03/17/18 06:40 INR, PTT INR 1.18 (0.83-1.09) H 02/28/18 20:06 Hepatic Panel Total Bilirubin 0.4 mg/dL (0.2-1) 03/17/18 06:40 AST 18 U/L (15-37) 03/17/18 06:40 ALT 23 U/L (13-61) 03/17/18 06:40 Alkaline Phosphatase 50 U/L (45-117) 03/17/18 06:40 Albumin 2.4 g/dl (3.4-5.0) L 03/17/18 06:40 Problem List - Problems (1) Volvulus of sigmoid colon Assessment/Plan: Suspect acute on chronic process Increased abdominal distention today Will place rectal tube Surgical follow-up Code(s): K56.2 - VOLVULUS
--- NOTE | 2018-03-17 11:22 | PN ---
Progress Note (short form) - Note Progress Note: PULMONARY KNOWN BY OUR SERVICE AWAKE/ALERT SEEN BY GI/RECTAL TUBE RECOMMENDED VSS Constitutional: Yes: Well Nourished, Calm Eyes: Yes: WNL HENT: Yes: WNL Neck: Yes: WNL Cardiovascular: Yes: Regular Rate and Rhythm, S1, S2 Respiratory: Yes: Rhonchi (few rhonchi) Gastrointestinal: Yes: Distended Extremities: Yes: WNL Edema: No LABS/MEDS/NOTES/IMAGES/MBS REVIEWD ASPIRATION PRECAUTIONS/PUREE DIET.THICKENED LIQUIDS ASSESSMENT AND PLAN: s/p Acute Hypoxic Respiratory Failure Pneumonia likely Aspiration clinically improved Sigmoid Volvulus /Rectal Tube Decompression as per GI Sepsis Lactic Acidosis LV Diastolic Dysfunction +Troponins likely Demand Ischemia Paroxysmal Atrial Fibrillation h/o CVA - nasal cannula - aspiration precautions - rate control - anticoagulation - DVT prophylaxis Britton GILES MD
[2018-03-17] MEDS ORDERED: INSULIN (NOVOLOG) ASPART 100 UNITS/ML 10ML VIAL ONE ×2 (11:47→20:41)
[2018-03-17] MEDS: ZINC OXIDE 20% TOPICAL OINTMENT 30 GM TUBE TP SCH ×2 (11:49→21:36)
--- NOTE | 2018-03-17 12:53 | PN ---
Progress Note (short form) - Note Progress Note: awake no distress had a bm today rectal tube placed Vital Signs - 24 hr 03/16/18 03/16/18 03/16/18 16:50 21:00 22:00 Temperature 97.6 F 97.7 F Pulse Rate 63 66 Respiratory 20 20 Rate Blood Pressure 134/73 132/73 O2 Sat by Pulse 100 100 Oximetry (%) 03/17/18 03/17/18 03/17/18 06:00 08:00 09:00 Temperature 98.3 F 98.4 F Pulse Rate 76 54 L Respiratory 20 20 Rate Blood Pressure 134/84 142/79 O2 Sat by Pulse 98 Oximetry (%) 03/17/18 15:16 Temperature 98.2 F Pulse Rate 66 Respiratory 19 Rate Blood Pressure 115/66 O2 Sat by Pulse Oximetry (%) Current Medications Generic Name Dose Route Start Last Admin Trade Name Freq PRN Reason Stop Dose Admin Acetaminophen 650 mg 03/11/18 15:31 Tylenol - PO Q6H PRN FEVER Albuterol/Ipratropium 1 amp 03/11/18 16:00 03/17/18 16:20 Duoneb - NEB 1 amp RQID FLORIN Administration Amino Acids 30 ml 03/15/18 17:30 03/17/18 09:43 Prosource No Carb Liquid Pkt PO 30 ml BID@0800,1730 FLORIN Administration Apixaban 5 mg 03/16/18 22:00 03/17/18 09:42 Eliquis - PO 5 mg BID FLORIN Administration Atorvastatin Calcium 40 mg 03/16/18 10:16 03/16/18 22:03 Lipitor - PO 40 mg HS [facility]ORIN Administration Insulin Aspart 1 vial 03/11/18 16:30 03/17/18 16:23 Novolog Vial Sliding Scale - SQ Not Given ACHS [facility] Protocol Insulin Detemir 20 units 03/11/18 22:00 03/16/18 22:03 Levemir Vial SQ 20 units HS FLORIN Administration Lisinopril 40 mg 03/17/18 13:30 Prinivil PO DAILY [facility] Methyl Salicylate 1 applic 03/11/18 15:31 Felix-Seaman - TP Q8H PRN BODY ACHES Metoprolol Tartrate 25 mg 03/16/18 10:16 03/17/18 09:43 Lopressor - PO 25 mg BID [facility]OR[facility] Administration Multi-Ingredient Ointment 1 applic 03/11/18 22:00 03/17/18 11:49 Zinc Oxide TP 1 applic BID FLORIN Administration Ranitidine HCl 150 mg 03/16/18 22:00 03/17/18 09:42 Zantac - PO 150 mg BID FLORIN Administration Laboratory Results - last 24 hr 03/16/18 03/16/18 03/17/18 16:46 20:54 06:40 WBC 5.8 RBC 4.32 Hgb 13.4 Hct 39.2 MCV 90.7 MCH 31.1 MCHC 34.3 RDW 14.5 Plt Count 264 MPV 9.0 Sodium Potassium Chloride Carbon Dioxide Anion Gap BUN Creatinine Creat Clearance w eGFR POC Glucometer 228 231 Random Glucose Calcium Total Bilirubin AST ALT Alkaline Phosphatase Total Protein Albumin 03/17/18 03/17/18 03/17/18 06:40 07:14 11:44 WBC RBC Hgb Hct MCV MCH MCHC RDW Plt Count MPV Sodium 138 Potassium 3.5 Chloride 102 Carbon Dioxide 28 Anion Gap 8 BUN 5 L Creatinine 0.6 Creat Clearance w eGFR > 60 POC Glucometer 156 221 Random Glucose 152 H Calcium 8.5 Total Bilirubin 0.4 AST 18 ALT 23 Alkaline Phosphatase 50 Total Protein 6.4 Albumin 2.4 L S1 S2 irregular Lungs decreased, ronchi ABd- soft, NT, BS+distended No edema Sepsis, pneumonia,volvulus, pneumonia RLL -- tolerating diet -- off antibiotics -- rectal tube placed, may need intermittent rectal tube placements -- continue with meds -- PT eval -- daughter wishes to have him dc home with home PT -- frequent turning Problem List - Problems (1) Demand ischemia Code(s): I24.8 - OTHER FORMS OF ACUTE ISCHEMIC HEART DISEASE (2) Elevated troponin Code(s): R74.8 - ABNORMAL LEVELS OF OTHER SERUM ENZYMES (3) Pneumonia Code(s): J18.9 - PNEUMONIA, UNSPECIFIED ORGANISM (4) Rapid atrial fibrillation Code(s): I48.91 - UNSPECIFIED ATRIAL FIBRILLATION (5) Sepsis Code(s): A41.9 - SEPSIS, UNSPECIFIED ORGANISM Qualifiers: Sepsis type: sepsis due to unspecified organism Qualified Code(s): A41.9 - Sepsis, unspecified organism
--- NOTE | 2018-03-17 13:29 | PN ---
Progress Note (short form) - Note Progress Note: Chief Complaint: Events noted, notes reviewed, awake and alert, no distress, overall no change in status History of Present Illness: Seen and examined in the ICU. Events noted, notes reviewed, awake and alert, no distress, overall no change in status Echocardiography dated 12/20/2017 revealed normal LV size and function, trace MR and TR Medications: Current Medications Acetaminophen (Tylenol -) 650 mg PO Q6H PRN PRN Reason: FEVER Albuterol/Ipratropium (Duoneb -) 1 amp NEB RQID [facility] Last Admin: 03/17/18 07:37 Dose: 1 amp Amino Acids (Prosource No Carb Liquid Pkt) 30 ml PO BID@0800,1730 [facility] Last Admin: 03/17/18 09:43 Dose: 30 ml Apixaban (Eliquis -) 5 mg PO BID [facility] Last Admin: 03/17/18 09:42 Dose: 5 mg Atorvastatin Calcium (Lipitor -) 40 mg PO HS [facility] Last Admin: 03/16/18 22:03 Dose: 40 mg Insulin Aspart (Novolog Vial Sliding Scale -) 1 vial SQ [facility]; Protocol Last Admin: 03/17/18 11:49 Dose: 4 units Insulin Detemir (Levemir Vial) 20 units SQ [facility] Last Admin: 03/16/18 22:03 Dose: 20 units Lisinopril (Prinivil) 30 mg PO DAILY [facility] Last Admin: 03/17/18 09:42 Dose: 30 mg Methyl Salicylate (Felix-Seaman -) 1 applic TP Q8H PRN PRN Reason: BODY ACHES Metoprolol Tartrate (Lopressor -) 25 mg PO BID [facility] Last Admin: 03/17/18 09:43 Dose: 25 mg Multi-Ingredient Ointment (Zinc Oxide) 1 applic TP BID [facility] Last Admin: 03/17/18 11:49 Dose: 1 applic Ranitidine HCl (Zantac -) 150 mg PO BID [facility] Last Admin: 03/17/18 09:42 Dose: 150 mg Vital Signs: Last Vital Signs Temp Pulse Resp BP Pulse Ox 98.4 F 54 L 20 142/79 98 03/17/18 08:00 03/17/18 08:00 03/17/18 08:00 03/17/18 08:00 03/17/18 09:00 Intake & Output 03/14/18 03/15/18 03/16/18 03/17/18 23:59 23:59 23:59 23:59 Intake Total 1443 1470 2600 50 Balance 1443 1470 2600 50 Weight 218 lb 4.8 oz 212 lb 219 lb 11.2 oz 219 lb 6.4 oz Neck: Supple Negative JVD No Bruit Respiratory: Diminished Breath Sounds at the Bases Bilateral Scattered Rhonchi Cardiovascular: S1 S2 Regularly Rate and Rhythm Gastrointestinal: Soft Benign Normal Bowel Sounds Ext: Trace Edema Bilateral Labs: CBC, BMP 03/17/18 06:40 03/17/18 06:40 Assessment/Plan ASSESSMENT: 1. Right lower lobe aspiration pneumonia, resolved 2. Intermittent sigmoid volvulus post rectal tube decompression 3. 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 Diastolic LV dysfunction with clinical class 0-I NYHA classification LV failure, compensated/euvolemic 5. Paroxysmal atrial fibrillation [id number] score 7 on DOAC's/Eliquis 6. Toxic-metabolic encephelopathy 7. History of CVA with residual right-sided weakness PLAN: 1. Continue Lopressor 2. Continue Lisinopril, and titrate dose as tolerated, hemodynamics permitting 3. Continue Lipitor 4. Continue Eliquis with close monitoring of CBC Kadeem Barba M.D.
--- NOTE | 2018-03-17 16:49 | PN ---
Progress Note (short form) - Note Progress Note: Large BM per nursing. I reevaluated patient and abdomen was soft and much less tympanitis. Will observe for now prior to rectal tube replacement. Problem List - Problems (1) Volvulus of sigmoid colon Code(s): K56.2 - VOLVULUS
[2018-03-17] MEDS: ATORVASTATIN CA 40 MG TABLET (FP) PO SCH (21:32)
[2018-03-17] MEDS: INSULIN (LEVEMIR) 100 UNITS/ML UNITS SQ SCH (21:36)
[2018-03-18] MEDS: INSULIN SLIDING SCALE (NOVOLOG) 1 VIAL SQ SCH ×4 (06:21→21:43)
--- NOTE | 2018-03-18 08:06 | PN ---
Progress Note, Physician Chief Complaint: no complaints denies abdominal pain - Current Medication List Current Medications: Active Medications Acetaminophen (Tylenol -) 650 mg PO Q6H PRN PRN Reason: FEVER Albuterol/Ipratropium (Duoneb -) 1 amp NEB RQID [facility] Last Admin: 03/17/18 20:25 Dose: 1 amp Amino Acids (Prosource No Carb Liquid Pkt) 30 ml PO BID@0800,1730 [facility] Last Admin: 03/17/18 17:36 Dose: 30 ml Apixaban (Eliquis -) 5 mg PO BID [facility] Last Admin: 03/17/18 21:32 Dose: 5 mg Atorvastatin Calcium (Lipitor -) 40 mg PO HS [facility] Last Admin: 03/17/18 21:32 Dose: 40 mg Insulin Aspart (Novolog Vial Sliding Scale -) 1 vial SQ [facility]; Protocol Last Admin: 03/18/18 06:21 Dose: 4 units Insulin Detemir (Levemir Vial) 20 units SQ [facility] Last Admin: 03/17/18 21:36 Dose: 20 units Lisinopril (Prinivil) 40 mg PO DAILY [facility] Methyl Salicylate (Felix-Seaman -) 1 applic TP Q8H PRN PRN Reason: BODY ACHES Metoprolol Tartrate (Lopressor -) 25 mg PO BID [facility] Last Admin: 03/17/18 21:32 Dose: 25 mg Multi-Ingredient Ointment (Zinc Oxide) 1 applic TP BID [facility] Last Admin: 03/17/18 21:36 Dose: 1 applic Ranitidine HCl (Zantac -) 150 mg PO BID [facility] Last Admin: 03/17/18 21:32 Dose: 150 mg - Objective Vital Signs: Vital Signs Temperature 98 F 03/18/18 05:43 Pulse Rate 71 03/18/18 05:43 Respiratory Rate 18 03/18/18 05:43 Blood Pressure 137/81 03/18/18 05:43 O2 Sat by Pulse Oximetry (%) 98 03/17/18 22:00 Constitutional: Yes: Well Nourished, No Distress, Calm Eyes: Yes: WNL HENT: Yes: WNL Neck: Yes: WNL Cardiovascular: Yes: WNL, Regular Rate and Rhythm Respiratory: Yes: WNL, Regular Gastrointestinal: Yes: WNL, Normal Bowel Sounds, Soft Extremities: Yes: WNL Edema: No Labs: CBC, BMP 03/17/18 06:40 03/17/18 06:40 INR, PTT INR 1.18 (0.83-1.09) H 02/28/18 20:06 Problem List - Problems (1) Distended abdomen Assessment/Plan: s/p rectal tube for decompression. monitor abdominal pain , if develops pain or distension rec axr will f/u Code(s): R14.0 - ABDOMINAL DISTENSION (GASEOUS)
[2018-03-18] MEDS: ALBUTEROL SO4 2.5/IPRATROPIUM 0.5 INH SOL 3 ML VIAL.NEB. NEB SCH ×4 (08:44→20:51)
[2018-03-18] MEDS ORDERED: PT OWN MED DRAWER 7, Y5N ONE (09:19)
[2018-03-18] MEDS: AMINO ACIDS/PROTEIN HYDROLYS 30 ML LIQUID.PKT PO SCH ×2 (09:27→17:01)
[2018-03-18] MEDS: APIXABAN 5 MG TABLET PO SCH ×2 (09:27→21:40)
[2018-03-18] MEDS: RANITIDINE HCL 150 MG TABLET (FP) PO SCH ×2 (09:27→21:40)
[2018-03-18] MEDS: ZINC OXIDE 20% TOPICAL OINTMENT 30 GM TUBE TP SCH ×2 (09:27→22:06)
[2018-03-18] MEDS: METOPROLOL TARTRATE 25 MG TABLET (FP) PO SCH ×2 (09:27→21:40)
[2018-03-18] MEDS: LISINOPRIL 20 MG TABLET (FP) PO SCH (09:27)
--- NOTE | 2018-03-18 11:24 | PN ---
Progress Note (short form) - Note Progress Note: PULMONARY Denies shortness of breath or chest pain. No abdominal pain. Vital Signs Period Temp Pulse Resp BP Sys/Pham Pulse Ox Last 24 Hr 97.3 F-98.2 F 66-71 18-19 115-148/63-93 98-98 Gen: more awake, alert Heart: RRR Lung: scattered wheezes Abd: soft, nontender Ext: no edema CBC, BMP 03/17/18 06:40 03/17/18 06:40 Active Medications Acetaminophen (Tylenol -) 650 mg PO Q6H PRN PRN Reason: FEVER Albuterol/Ipratropium (Duoneb -) 1 amp NEB RQID [facility] Last Admin: 03/18/18 08:44 Dose: 1 amp Amino Acids (Prosource No Carb Liquid Pkt) 30 ml PO BID@0800,1730 [facility] Last Admin: 03/18/18 09:27 Dose: 30 ml Apixaban (Eliquis -) 5 mg PO BID [facility] Last Admin: 03/18/18 09:27 Dose: 5 mg Atorvastatin Calcium (Lipitor -) 40 mg PO HS [facility] Last Admin: 03/17/18 21:32 Dose: 40 mg Insulin Aspart (Novolog Vial Sliding Scale -) 1 vial SQ [facility]; Protocol Last Admin: 03/18/18 06:21 Dose: 4 units Insulin Detemir (Levemir Vial) [address] [facility] Last Admin: 03/17/18 21:36 Dose: 20 units Lisinopril (Prinivil) 40 mg PO DAILY [facility] Last Admin: 03/18/18 09:27 Dose: 40 mg Methyl Salicylate (Felix-Seaman -) 1 applic TP Q8H PRN PRN Reason: BODY ACHES Metoprolol Tartrate (Lopressor -) 25 mg PO BID [facility] Last Admin: 03/18/18 09:27 Dose: 25 mg Multi-Ingredient Ointment (Zinc Oxide) 1 applic TP BID [facility] Last Admin: 03/18/18 09:27 Dose: 1 applic Ranitidine HCl (Zantac -) 150 mg PO BID [facility] Last Admin: 03/18/18 09:27 Dose: 150 mg A/P s/p Acute Hypoxic Respiratory Failure Pneumonia likely Aspiration clinically improved Sigmoid Volvulus s/p Rectal Tube Decompression Sepsis resolved LV Diastolic Dysfunction +Troponins likely Demand Ischemia Paroxysmal Atrial Fibrillation h/o CVA - completed antibiotics - O2 to keep SpO2 >90% - replete lytes - aspiration precautions - rate control - continue anticoagulation - DVT prophylaxis
--- NOTE | 2018-03-18 13:38 | PN ---
Progress Note, Physician Chief Complaint: awake and alert no complaints - Current Medication List Current Medications: Active Medications Acetaminophen (Tylenol -) 650 mg PO Q6H PRN PRN Reason: FEVER Albuterol/Ipratropium (Duoneb -) 1 amp NEB RQID [facility] Last Admin: 03/18/18 08:44 Dose: 1 amp Amino Acids (Prosource No Carb Liquid Pkt) 30 ml PO BID@0800,1730 [facility] Last Admin: 03/18/18 09:27 Dose: 30 ml Apixaban (Eliquis -) 5 mg PO BID [facility] Last Admin: 03/18/18 09:27 Dose: 5 mg Atorvastatin Calcium (Lipitor -) 40 mg PO HS [facility] Last Admin: 03/17/18 21:32 Dose: 40 mg Insulin Aspart (Novolog Vial Sliding Scale -) 1 vial SQ [facility]; Protocol Last Admin: 03/18/18 11:29 Dose: 4 units Insulin Detemir (Levemir Vial) 20 units SQ [facility] Last Admin: 03/17/18 21:36 Dose: 20 units Lisinopril (Prinivil) 40 mg PO DAILY [facility] Last Admin: 03/18/18 09:27 Dose: 40 mg Methyl Salicylate (Felix-Seaman -) 1 applic TP Q8H PRN PRN Reason: BODY ACHES Metoprolol Tartrate (Lopressor -) 25 mg PO BID [facility] Last Admin: 03/18/18 09:27 Dose: 25 mg Multi-Ingredient Ointment (Zinc Oxide) 1 applic TP BID [facility] Last Admin: 03/18/18 09:27 Dose: 1 applic Ranitidine HCl (Zantac -) 150 mg PO BID [facility] Last Admin: 03/18/18 09:27 Dose: 150 mg - Objective Vital Signs: Vital Signs Temperature 97.9 F 03/18/18 10:00 Pulse Rate 77 03/18/18 10:00 Respiratory Rate 20 03/18/18 10:00 Blood Pressure 144/94 03/18/18 10:00 O2 Sat by Pulse Oximetry (%) 95 03/18/18 09:00 Constitutional: Yes: No Distress Cardiovascular: Yes: Regular Rate and Rhythm Respiratory: Yes: Diminished Gastrointestinal: Yes: Normal Bowel Sounds, Soft, Distention (mild). No: Tenderness Edema: No Labs: CBC, BMP 03/17/18 06:40 03/17/18 06:40 INR, PTT INR 1.18 (0.83-1.09) H 02/28/18 20:06 Problem List - Problems (1) Demand ischemia Code(s): I24.8 - OTHER FORMS OF ACUTE ISCHEMIC HEART DISEASE (2) Elevated troponin Code(s): R74.8 - ABNORMAL LEVELS OF OTHER SERUM ENZYMES (3) Pneumonia Code(s): J18.9 - PNEUMONIA, UNSPECIFIED ORGANISM (4) Rapid atrial fibrillation Code(s): I48.91 - UNSPECIFIED ATRIAL FIBRILLATION (5) Sepsis Code(s): A41.9 - SEPSIS, UNSPECIFIED ORGANISM Qualifiers: Sepsis type: sepsis due to unspecified organism Qualified Code(s): A41.9 - Sepsis, unspecified organism Assessment/Plan PLAN spoke with GI- will need intermittent rectal tube for decompression prior to elective surgery continue with meds encourage OOB daughter wishes to take him home
--- NOTE | 2018-03-18 15:52 | PN ---
Progress Note (short form) - Note Progress Note: Chief Complaint: Events noted, notes reviewed, awake and alert, no distress, overall no change in status History of Present Illness: Seen and examined. Events noted, notes reviewed, awake and alert, no distress, overall no change in status Echocardiography dated 12/20/2017 revealed normal LV size and function, trace MR and TR Medications: Current Medications Acetaminophen (Tylenol -) 650 mg PO Q6H PRN PRN Reason: FEVER Albuterol/Ipratropium (Duoneb -) 1 amp NEB RQID [facility] Last Admin: 03/18/18 08:44 Dose: 1 amp Amino Acids (Prosource No Carb Liquid Pkt) 30 ml PO BID@0800,1730 [facility] Last Admin: 03/18/18 09:27 Dose: 30 ml Apixaban (Eliquis -) 5 mg PO BID [facility] Last Admin: 03/18/18 09:27 Dose: 5 mg Atorvastatin Calcium (Lipitor -) 40 mg PO HS [facility] Last Admin: 03/17/18 21:32 Dose: 40 mg Insulin Aspart (Novolog Vial Sliding Scale -) 1 vial SQ [facility]; Protocol Last Admin: 03/18/18 11:29 Dose: 4 units Insulin Detemir (Levemir Vial) 22 units SQ [facility] Lisinopril (Prinivil) 40 mg PO DAILY [facility] Last Admin: 03/18/18 09:27 Dose: 40 mg Methyl Salicylate (Felix-Seaman -) 1 applic TP Q8H PRN PRN Reason: BODY ACHES Metoprolol Tartrate (Lopressor -) 25 mg PO BID [facility] Last Admin: 03/18/18 09:27 Dose: 25 mg Multi-Ingredient Ointment (Zinc Oxide) 1 applic TP BID [facility] Last Admin: 03/18/18 09:27 Dose: 1 applic Ranitidine HCl (Zantac -) 150 mg PO BID [facility] Last Admin: 03/18/18 09:27 Dose: 150 mg Vital Signs: Last Vital Signs Temp Pulse Resp BP Pulse Ox 98.2 F 82 18 149/89 95 03/18/18 15:34 03/18/18 15:34 03/18/18 15:34 03/18/18 15:34 03/18/18 09:00 Intake & Output 03/15/18 03/16/18 03/17/18 03/18/18 23:59 23:59 23:59 23:59 Intake Total 1470 2600 530 Balance 1470 2600 530 Weight 212 lb 219 lb 11.2 oz 219 lb 6.4 oz 219 lb 3 oz Neck: Supple Negative JVD No Bruit Respiratory: Diminished Breath Sounds at the Bases Bilateral Scattered Rhonchi Cardiovascular: S1 S2 Regularly Rate and Rhythm Gastrointestinal: Soft Benign Normal Bowel Sounds Ext: Trace Edema Bilateral Labs: CBC, BMP 03/17/18 06:40 03/17/18 06:40 Assessment/Plan ASSESSMENT: 1. Right lower lobe aspiration pneumonia, resolved 2. Intermittent sigmoid volvulus post rectal tube decompression 3. 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 Diastolic LV dysfunction with clinical class 0-I NYHA classification LV failure, compensated/euvolemic 5. Paroxysmal atrial fibrillation [id number] score 7 on DOAC's/Eliquis 6. Toxic-metabolic encephelopathy 7. History of CVA with residual right-sided weakness PLAN: 1. Continue Lopressor increase dose as needed 2. Continue Lisinopril 3. Continue Lipitor 4. Continue Eliquis with close monitoring of CBC Kadeem Barba M.D.
[2018-03-18] MEDS: ATORVASTATIN CA 40 MG TABLET (FP) PO SCH (21:40)
[2018-03-18] MEDS: INSULIN (LEVEMIR) 100 UNITS/ML UNITS SQ SCH (21:43)
[2018-03-19] MEDS: INSULIN SLIDING SCALE (NOVOLOG) 1 VIAL SQ SCH ×4 (07:06→21:41)
[2018-03-19] MEDS: ALBUTEROL SO4 2.5/IPRATROPIUM 0.5 INH SOL 3 ML VIAL.NEB. NEB SCH ×4 (07:44→19:21)
[2018-03-19] MEDS: METOPROLOL TARTRATE 25 MG TABLET (FP) PO SCH (10:29)
[2018-03-19] MEDS: RANITIDINE HCL 150 MG TABLET (FP) PO SCH ×2 (10:29→21:36)
[2018-03-19] MEDS: AMINO ACIDS/PROTEIN HYDROLYS 30 ML LIQUID.PKT PO SCH ×2 (10:29→16:43)
[2018-03-19] MEDS: APIXABAN 5 MG TABLET PO SCH ×2 (10:29→21:36)
[2018-03-19] MEDS: LISINOPRIL 20 MG TABLET (FP) PO SCH (10:29)
[2018-03-19] MEDS: ZINC OXIDE 20% TOPICAL OINTMENT 30 GM TUBE TP SCH ×2 (10:52→21:42)
--- NOTE | 2018-03-19 11:12 | PN ---
Progress Note (short form) - Note Progress Note: Chief Complaint: Events noted, notes reviewed, awake and alert, no distress, overall no change in status, resting in bed History of Present Illness: Seen and examined. Events noted, notes reviewed, awake and alert, no distress, overall no change in status, resting in bed Echocardiography dated 12/20/2017 revealed normal LV size and function, trace MR and TR Medications: Current Medications Acetaminophen (Tylenol -) 650 mg PO Q6H PRN PRN Reason: FEVER Albuterol/Ipratropium (Duoneb -) 1 amp NEB RQID [facility] Last Admin: 03/19/18 07:44 Dose: 1 amp Amino Acids (Prosource No Carb Liquid Pkt) 30 ml PO BID@0800,1730 [facility] Last Admin: 03/19/18 10:29 Dose: 30 ml Apixaban (Eliquis -) 5 mg PO BID [facility] Last Admin: 03/19/18 10:29 Dose: 5 mg Atorvastatin Calcium (Lipitor -) 40 mg PO HS [facility] Last Admin: 03/18/18 21:40 Dose: 40 mg Insulin Aspart (Novolog Vial Sliding Scale -) 1 vial SQ [facility]; Protocol Last Admin: 03/19/18 07:06 Dose: 2 units Insulin Detemir (Levemir Vial) 22 units SQ [facility] Last Admin: 03/18/18 21:43 Dose: 22 units Lisinopril (Prinivil) 40 mg PO DAILY [facility] Last Admin: 03/19/18 10:29 Dose: 40 mg Methyl Salicylate (Felix-Seaman -) 1 applic TP Q8H PRN PRN Reason: BODY ACHES Metoprolol Tartrate (Lopressor -) 25 mg PO BID [facility] Last Admin: 03/19/18 10:29 Dose: 25 mg Multi-Ingredient Ointment (Zinc Oxide) 1 applic TP BID [facility] Last Admin: 03/19/18 10:52 Dose: 1 applic Ranitidine HCl (Zantac -) 150 mg PO BID [facility] Last Admin: 03/19/18 10:29 Dose: 150 mg Vital Signs: Last Vital Signs Temp Pulse Resp BP Pulse Ox 98.8 F 65 20 152/71 95 03/19/18 06:00 03/19/18 06:00 03/19/18 06:00 03/19/18 06:00 03/18/18 22:00 Intake & Output 03/16/18 03/17/18 03/18/18 03/19/18 23:59 23:59 23:59 23:59 Intake Total 2600 530 600 100 Balance 2600 530 600 100 Weight 219 lb 11.2 oz 219 lb 6.4 oz 219 lb 3 oz 226 lb 1.6 oz Neck: Supple Negative JVD No Bruit Respiratory: Diminished Breath Sounds at the Bases Bilateral Scattered Rhonchi Cardiovascular: S1 S2 Regularly Rate and Rhythm Gastrointestinal: Soft Benign Normal Bowel Sounds Ext: Trace Edema Bilateral Labs: CBC, BMP 03/17/18 06:40 03/17/18 06:40 Assessment/Plan ASSESSMENT: 1. Right lower lobe aspiration pneumonia, resolved 2. Intermittent sigmoid volvulus post rectal tube decompression 3. 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 Diastolic LV dysfunction with clinical class 0-I NYHA classification LV failure, compensated/euvolemic 5. Paroxysmal atrial fibrillation [id number] score 7 on DOAC's/Eliquis 6. Toxic-metabolic encephelopathy 7. History of CVA with residual right-sided weakness PLAN: 1. Continue Lopressor increase dose as needed and as tolerated 2. Continue Lisinopril 3. Continue Lipitor 4. Continue Eliquis with close monitoring of CBC Kadeem Barba M.D.
--- NOTE | 2018-03-19 11:29 | PN ---
Progress Note, Physician Chief Complaint: no complaints denies abdominal pain eating lunch as per aide had BM earlier today - Current Medication List Current Medications: Active Medications Acetaminophen (Tylenol -) 650 mg PO Q6H PRN PRN Reason: FEVER Albuterol/Ipratropium (Duoneb -) 1 amp NEB RQID [facility] Last Admin: 03/19/18 07:44 Dose: 1 amp Amino Acids (Prosource No Carb Liquid Pkt) 30 ml PO BID@0800,1730 [facility] Last Admin: 03/19/18 10:29 Dose: 30 ml Apixaban (Eliquis -) 5 mg PO BID [facility] Last Admin: 03/19/18 10:29 Dose: 5 mg Atorvastatin Calcium (Lipitor -) 40 mg PO HS [facility] Last Admin: 03/18/18 21:40 Dose: 40 mg Insulin Aspart (Novolog Vial Sliding Scale -) 1 vial SQ [facility]; Protocol Last Admin: 03/19/18 07:06 Dose: 2 units Insulin Detemir (Levemir Vial) 22 units SQ [facility] Last Admin: 03/18/18 21:43 Dose: 22 units Lisinopril (Prinivil) 40 mg PO DAILY [facility] Last Admin: 03/19/18 10:29 Dose: 40 mg Methyl Salicylate (Felix-Seaman -) 1 applic TP Q8H PRN PRN Reason: BODY ACHES Metoprolol Tartrate (Lopressor -) 50 mg PO BID [facility] Multi-Ingredient Ointment (Zinc Oxide) 1 applic TP BID [facility] Last Admin: 03/19/18 10:52 Dose: 1 applic Ranitidine HCl (Zantac -) 150 mg PO BID [facility] Last Admin: 03/19/18 10:29 Dose: 150 mg - Objective Vital Signs: Vital Signs Temperature 98.8 F 03/19/18 06:00 Pulse Rate 65 03/19/18 06:00 Respiratory Rate 20 03/19/18 06:00 Blood Pressure 152/71 03/19/18 06:00 O2 Sat by Pulse Oximetry (%) 95 03/18/18 22:00 Constitutional: Yes: Well Nourished, No Distress, Calm Eyes: Yes: WNL HENT: Yes: WNL Neck: Yes: WNL, Supple Cardiovascular: Yes: WNL, Regular Rate and Rhythm Respiratory: Yes: WNL, Regular, CTA Bilaterally Gastrointestinal: Yes: Soft, Other (tympanic , nontender , bowel sounds normal) Extremities: Yes: WNL Edema: No Labs: CBC, BMP 03/17/18 06:40 03/17/18 06:40 INR, PTT INR 1.18 (0.83-1.09) H 02/28/18 20:06 Problem List - Problems (1) Distended abdomen Assessment/Plan: s/p rectal tube for decompression. monitor abdominal pain , if develops pain or distension rec abdominal xray encourage OOB to chair Code(s): R14.0 - ABDOMINAL DISTENSION (GASEOUS)
--- NOTE | 2018-03-19 12:59 | PN ---
Progress Note (short form) - Note Progress Note: PULMONARY Denies shortness of breath or chest pain. No abdominal pain. Tolerating PO. Vital Signs Period Temp Pulse Resp BP Sys/Pham Pulse Ox Last 24 Hr 97.1 F-98.8 F 65-82 18-20 131-152/71-89 95-95 Gen: more awake, alert Heart: RRR Lung: scattered wheezes Abd: soft, nontender Ext: no edema CBC, BMP 03/17/18 06:40 03/17/18 06:40 Active Medications Acetaminophen (Tylenol -) 650 mg PO Q6H PRN PRN Reason: FEVER Albuterol/Ipratropium (Duoneb -) 1 amp NEB RQID [facility] Last Admin: 03/19/18 12:24 Dose: 1 amp Amino Acids (Prosource No Carb Liquid Pkt) 30 ml PO BID@0800,1730 [facility] Last Admin: 03/19/18 10:29 Dose: 30 ml Apixaban (Eliquis -) 5 mg PO BID [facility] Last Admin: 03/19/18 10:29 Dose: 5 mg Atorvastatin Calcium (Lipitor -) 40 mg PO HS [facility] Last Admin: 03/18/18 21:40 Dose: 40 mg Insulin Aspart (Novolog Vial Sliding Scale -) 1 vial SQ [facility]; Protocol Last Admin: 03/19/18 12:07 Dose: 2 units Insulin Detemir (Levemir Vial) 22 units SQ [facility] Last Admin: 03/18/18 21:43 Dose: 22 units Lisinopril (Prinivil) 40 mg PO DAILY [facility] Last Admin: 03/19/18 10:29 Dose: 40 mg Methyl Salicylate (Felix-Seaman -) 1 applic TP Q8H PRN PRN Reason: BODY ACHES Metoprolol Tartrate (Lopressor -) 50 mg PO BID [facility] Multi-Ingredient Ointment (Zinc Oxide) 1 applic TP BID [facility] Last Admin: 03/19/18 10:52 Dose: 1 applic Ranitidine HCl (Zantac -) 150 mg PO BID [facility] Last Admin: 03/19/18 10:29 Dose: 150 mg A/P s/p Acute Hypoxic Respiratory Failure Pneumonia likely Aspiration clinically improved Sigmoid Volvulus s/p Rectal Tube Decompression Sepsis resolved LV Diastolic Dysfunction +Troponins likely Demand Ischemia Paroxysmal Atrial Fibrillation h/o CVA - completed antibiotics - O2 to keep SpO2 >90% - replete lytes - aspiration precautions - rate control - continue anticoagulation - DVT prophylaxis
--- NOTE | 2018-03-19 19:05 | PN ---
Progress Note (short form) - Note Progress Note: awake no distress had a bm today rectal tube placed Vital Signs - 24 hr 03/18/18 03/18/18 03/19/18 20:07 22:00 06:00 Temperature 97.7 F 98.8 F Pulse Rate 74 65 Respiratory 20 20 Rate Blood Pressure 140/83 152/71 O2 Sat by Pulse 95 95 Oximetry (%) 03/19/18 03/19/18 14:51 17:14 Temperature 97.9 F 98.7 F Pulse Rate 73 73 Respiratory 18 20 Rate Blood Pressure 134/75 132/83 O2 Sat by Pulse Oximetry (%) Current Medications Generic Name Dose Route Start Last Admin Trade Name Freq PRN Reason Stop Dose Admin Acetaminophen 650 mg 03/11/18 15:31 Tylenol - PO Q6H PRN FEVER Albuterol/Ipratropium 1 amp 03/11/18 16:00 03/19/18 17:00 Duoneb - NEB 1 amp RQID [facility] Administration Amino Acids 30 ml 03/15/18 17:30 03/19/18 16:43 Prosource No Carb Liquid Pkt PO 30 ml BID@0800,1730 [facility] Administration Apixaban 5 mg 03/16/18 22:00 03/19/18 10:29 Eliquis - PO 5 mg BID [facility] Administration Atorvastatin Calcium 40 mg 03/16/18 10:16 03/18/18 21:40 Lipitor - PO 40 mg HS [facility] Administration Insulin Aspart 1 vial 03/11/18 16:30 03/19/18 16:41 Novolog Vial Sliding Scale - SQ 4 units ACHS [facility] Administration Protocol Insulin Detemir 22 units 03/18/18 13:38 03/18/18 21:43 Levemir Vial SQ 22 units HS [facility] Administration Lisinopril 40 mg 03/17/18 13:30 03/19/18 10:29 Prinivil PO 40 mg DAILY [facility] Administration Methyl Salicylate 1 applic 03/11/18 15:31 Felix-Seaman - TP Q8H PRN BODY ACHES Metoprolol Tartrate 50 mg 03/19/18 11:13 Lopressor - PO BID [facility] Multi-Ingredient Ointment 1 applic 03/11/18 22:00 03/19/18 10:52 Zinc Oxide TP 1 applic BID [facility] Administration Ranitidine HCl 150 mg 03/16/18 22:00 03/19/18 10:29 Zantac - PO 150 mg BID [facility] Administration Laboratory Results - last 24 hr 03/18/18 03/19/18 03/19/18 20:56 06:10 12:05 POC Glucometer 325 181 167 03/19/18 16:37 POC Glucometer 211 S1 S2 irregular Lungs decreased, ronchi ABd- soft, NT, BS+distended No edema Sepsis, pneumonia,volvulus, pneumonia RLL -- tolerating diet -- increase insulin -- off antibiotics -- rectal tube placed, may need intermittent rectal tube placements per GI -- continue with meds -- PT eval -- daughter wishes to have him dc home with home PT -- frequent turning -- dc planning--spoke with social media analyst Problem List - Problems (1) Demand ischemia Code(s): I24.8 - OTHER FORMS OF ACUTE ISCHEMIC HEART DISEASE (2) Elevated troponin Code(s): R74.8 - ABNORMAL LEVELS OF OTHER SERUM ENZYMES (3) Pneumonia Code(s): J18.9 - PNEUMONIA, UNSPECIFIED ORGANISM (4) Rapid atrial fibrillation Code(s): I48.91 - UNSPECIFIED ATRIAL FIBRILLATION (5) Sepsis Code(s): A41.9 - SEPSIS, UNSPECIFIED ORGANISM Qualifiers: Sepsis type: sepsis due to unspecified organism Qualified Code(s): A41.9 - Sepsis, unspecified organism
[2018-03-19] MEDS: ATORVASTATIN CA 40 MG TABLET (FP) PO SCH (21:36)
[2018-03-19] MEDS: INSULIN (LEVEMIR) 100 UNITS/ML UNITS SQ SCH (21:36)
[2018-03-19] MEDS: METOPROLOL TARTRATE 50 MG TABLET (FP) PO SCH (21:36)
[2018-03-19] MEDS ORDERED: INSULIN (NOVOLOG) ASPART 100 UNITS/ML 10ML VIAL ONE (21:41)
[2018-03-20] MEDS: INSULIN SLIDING SCALE (NOVOLOG) 1 VIAL SQ SCH ×4 (06:43→22:22)
[2018-03-20] MEDS: ALBUTEROL SO4 2.5/IPRATROPIUM 0.5 INH SOL 3 ML VIAL.NEB. NEB SCH ×4 (07:14→20:26)
--- NOTE | 2018-03-20 08:47 | PN ---
GI Progress Note Subjective: No acute events No abdominal pain Tolerating PO - Objective Vital Signs: Vital Signs Temperature 98.2 F 03/20/18 06:00 Pulse Rate 61 03/20/18 06:00 Respiratory Rate 20 03/20/18 06:00 Blood Pressure 147/81 03/20/18 06:00 O2 Sat by Pulse Oximetry (%) 95 03/18/18 22:00 Constitutional: Calm Eyes: No: Sclera Icterus Cardiovascular: Yes: Regular Rate and Rhythm Respiratory: Yes: Diminished (at bases bilaterally) Gastrointestinal Inspection: Yes: Distention (soft, mildly protuberant), Hernia (+ umbilical hernia) ...Auscultate: Yes: Normoactive Bowel Sounds ...Palpate: No: Tenderness ...Percussion: Yes: Tympanitic Neurological: Yes: Alert Labs: CBC, BMP 03/17/18 06:40 03/17/18 06:40 INR, PTT INR 1.18 (0.83-1.09) H 02/28/18 20:06 Problem List - Problems (1) Volvulus of sigmoid colon Assessment/Plan: Continue to monitor clinically, rectal tube if worsening abdominal distention, monitor lytes, Code(s): K56.2 - VOLVULUS
[2018-03-20] MEDS: ZINC OXIDE 20% TOPICAL OINTMENT 30 GM TUBE TP SCH ×2 (09:21→22:28)
[2018-03-20] MEDS: METOPROLOL TARTRATE 50 MG TABLET (FP) PO SCH ×2 (09:21→22:20)
[2018-03-20] MEDS: LISINOPRIL 20 MG TABLET (FP) PO SCH (09:21)
[2018-03-20] MEDS: RANITIDINE HCL 150 MG TABLET (FP) PO SCH ×2 (09:21→22:20)
[2018-03-20] MEDS: AMINO ACIDS/PROTEIN HYDROLYS 30 ML LIQUID.PKT PO SCH ×2 (09:21→16:57)
[2018-03-20] MEDS: APIXABAN 5 MG TABLET PO SCH ×2 (09:21→22:20)
--- NOTE | 2018-03-20 09:59 | PN ---
Progress Note (short form) - Note Progress Note: Awake and responsive. No CP or SOB. Tolerating PO. Intake & Output 03/17/18 03/18/18 03/19/18 03/20/18 23:59 23:59 23:59 23:59 Intake Total 530 600 500 Balance 530 600 500 Weight 219 lb 6.4 oz 219 lb 3 oz 226 lb 1.6 oz 220 lb 9.6 oz Last Vital Signs Temp Pulse Resp BP Pulse Ox 98.2 F 61 20 147/81 95 03/20/18 06:00 03/20/18 06:00 03/20/18 06:00 03/20/18 06:00 03/18/18 22:00 Active Medications Acetaminophen (Tylenol -) 650 mg PO Q6H PRN PRN Reason: FEVER Albuterol/Ipratropium (Duoneb -) 1 amp NEB RQID [facility] Last Admin: 03/20/18 07:14 Dose: 1 amp Amino Acids (Prosource No Carb Liquid Pkt) 30 ml PO BID@0800,1730 [facility] Last Admin: 03/20/18 09:21 Dose: 30 ml Apixaban (Eliquis -) 5 mg PO BID [facility] Last Admin: 03/20/18 09:21 Dose: 5 mg Atorvastatin Calcium (Lipitor -) 40 mg PO [facility] Last Admin: 03/19/18 21:36 Dose: 40 mg Insulin Aspart (Novolog Vial Sliding Scale -) 1 vial SQ [facility]; Protocol Last Admin: 03/20/18 06:43 Dose: Not Given Insulin Detemir (Levemir Vial) 22 units SQ [facility] Last Admin: 03/19/18 21:36 Dose: 22 units Lisinopril (Prinivil) 40 mg PO DAILY [facility] Last Admin: 03/20/18 09:21 Dose: 40 mg Methyl Salicylate (Felix-Seaman -) 1 applic TP Q8H PRN PRN Reason: BODY ACHES Metoprolol Tartrate (Lopressor -) 50 mg PO BID [facility] Last Admin: 03/20/18 09:21 Dose: 50 mg Multi-Ingredient Ointment (Zinc Oxide) 1 applic TP BID [facility] Last Admin: 03/20/18 09:21 Dose: 1 applic Ranitidine HCl (Zantac -) 150 mg PO BID [facility] Last Admin: 03/20/18 09:21 Dose: 150 mg Gen: Awake and alert, NAD Heart: RRR Lung: scattered rhonchi Abd: soft, nontender Ext: no edema Laboratory Results - last 24 hr 03/19/18 03/19/18 03/19/18 12:05 16:37 20:55 POC Glucometer 167 211 319 03/20/18 05:37 POC Glucometer 128 A/P s/p Acute Hypoxic Respiratory Failure Pneumonia likely Aspiration clinically improved Sigmoid Volvulus s/p Rectal Tube Decompression Sepsis resolved LV Diastolic Dysfunction +Troponins likely Demand Ischemia Paroxysmal Atrial Fibrillation h/o CVA - completed antibiotics - O2 to keep SpO2 >90% - aspiration precautions - rate control - continue anticoagulation - DVT prophylaxis - D/C planning Dr Patel
--- NOTE | 2018-03-20 11:03 | PN ---
Progress Note (short form) - Note Progress Note: pt seen/ examined chart reviewed awake/ comfortable denies pain tolerating po rectal tube out Vital Signs Temp 98.2 F 03/20/18 06:00 Pulse 61 03/20/18 06:00 Resp 20 03/20/18 06:00 BP 147/81 03/20/18 06:00 Pulse Ox 95 03/18/18 22:00 Intake & Output 03/19/18 03/19/18 03/20/18 11:59 23:59 11:59 Intake Total 100 400 Balance 100 400 Weight 226 lb 1.6 oz 220 lb 9.6 oz Intake: Oral 100 400 Other: Voiding Method Incontinent Incontinent Incontinent # Unmeasured Voids Void 2 1 Bowel Movement Yes Yes No # Bowel Movements 1 Weight Measurement Method Built in Bedscale Built in Bedscale Active Medications Acetaminophen (Tylenol -) 650 mg PO Q6H PRN PRN Reason: FEVER Albuterol/Ipratropium (Duoneb -) 1 amp NEB RQID [facility] Last Admin: 03/20/18 07:14 Dose: 1 amp Amino Acids (Prosource No Carb Liquid Pkt) 30 ml PO BID@0800,1730 [facility] Last Admin: 03/20/18 09:21 Dose: 30 ml Apixaban (Eliquis -) 5 mg PO BID [facility] Last Admin: 03/20/18 09:21 Dose: 5 mg Atorvastatin Calcium (Lipitor -) 40 mg PO [facility] Last Admin: 03/19/18 21:36 Dose: 40 mg Insulin Aspart (Novolog Vial Sliding Scale -) 1 vial SQ [facility]; Protocol Last Admin: 03/20/18 06:43 Dose: Not Given Insulin Detemir (Levemir Vial) 22 units SQ [facility] Last Admin: 03/19/18 21:36 Dose: 22 units Lisinopril (Prinivil) 40 mg PO DAILY [facility] Last Admin: 03/20/18 09:21 Dose: 40 mg Methyl Salicylate (Felix-Seaman -) 1 applic TP Q8H PRN PRN Reason: BODY ACHES Metoprolol Tartrate (Lopressor -) 50 mg PO BID [facility] Last Admin: 03/20/18 09:21 Dose: 50 mg Multi-Ingredient Ointment (Zinc Oxide) 1 applic TP BID [facility] Last Admin: 03/20/18 09:21 Dose: 1 applic Ranitidine HCl (Zantac -) 150 mg PO BID [facility] Last Admin: 03/20/18 09:21 Dose: 150 mg CBC, BMP 03/17/18 06:40 03/17/18 06:40 Physical Exam awake/ comfortable. S1 S2 irregular Lungs decreased at bases ABd- soft, NT, BS+ No edema neuro- alert/ awake a/p Sepsis, pneumonia, volvulus, pneumonia RLL -- tolerating diet -- rectal tube prn -- off antibiotics -- monitor labs/ electrolytes-- order for today -- PT eval -- daughter wishes to have him dc home with home PT -- frequent turning -- dc planning--spoke with nursing staff - will follow. - Problem List - Problems (1) Demand ischemia Code(s): I24.8 - OTHER FORMS OF ACUTE ISCHEMIC HEART DISEASE (2) Elevated troponin Code(s): R74.8 - ABNORMAL LEVELS OF OTHER SERUM ENZYMES (3) Hypokalemia Code(s): E87.6 - HYPOKALEMIA (4) Pneumonia Code(s): J18.9 - PNEUMONIA, UNSPECIFIED ORGANISM (5) Rapid atrial fibrillation Code(s): I48.91 - UNSPECIFIED ATRIAL FIBRILLATION (6) Volvulus of descending colon Code(s): K56.2 - VOLVULUS (7) Diabetes Code(s): E11.9 - TYPE 2 DIABETES MELLITUS WITHOUT COMPLICATIONS (8) Fecal retention Code(s): K59.00 - CONSTIPATION, UNSPECIFIED (9) H/O: CVA (cerebrovascular accident) Code(s): Z86.73 - PRSNL HX OF TIA (TIA), AND CEREB INFRC W/O RESID DEFICITS
[2018-03-20 11:48] LABS: BASO % 0.9 % (0-2.0); HEMATOCRIT 35.7 % (35.4-49); HEMOGLOBIN 12.8 GM/dL (11.7-16.9); LYMPH % 42.9 % (8-40); MCH 32.3 pg (25.7-33.7); MCHC 35.7 g/dl (32.0-35.9); MEAN CELL VOLUME 90.5 fl (80-96); MEAN PLT VOLUME 8.6 fl (7.5-11.1); MONO % 8.2 % (3.8-10.2); PLATELET COUNT 229 K/MM3 (134-434); RBC 3.95 M/mm3 (4.00-5.60); WHITE BLOOD COUNT 5.8 K/mm3 (4.0-10.0)
[2018-03-20 12:26] LABS: ALBUMIN 2.4 g/dl (3.4-5.0); ALK PHOS 49 U/L (45-117); ANION GAP 9 MMOL/L (8-16); BILIRUBIN,TOTAL 0.4 mg/dL (0.2-1); BLOOD UREA NITROGEN 10 mg/dL (7-18); CALCIUM 8.2 mg/dL (8.5-10.1); CHLORIDE 97 mmol/L (98-107); CO2 27 mmol/L (21-32); CREATININE 0.7 mg/dL (0.55-1.3); GLUCOSE,RANDOM 240 mg/dL (74-106); POTASSIUM 3.4 mmol/L (3.5-5.1); SGOT/AST 14 U/L (15-37); SGPT/ALT 17 U/L (13-61); SODIUM 133 mmol/L (136-145); TOT PROT 6.1 g/dl (6.4-8.2)
--- NOTE | 2018-03-20 12:36 | PN ---
Progress Note, Physician History of Present Illness: Tolerating oral intake with rectal tube out, remains in NSR. - Current Medication List Current Medications: Active Medications Acetaminophen (Tylenol -) 650 mg PO Q6H PRN PRN Reason: FEVER Albuterol/Ipratropium (Duoneb -) 1 amp NEB RQID [facility] Last Admin: 03/20/18 12:05 Dose: 1 amp Amino Acids (Prosource No Carb Liquid Pkt) 30 ml PO BID@0800,1730 [facility] Last Admin: 03/20/18 09:21 Dose: 30 ml Apixaban (Eliquis -) 5 mg PO BID [facility] Last Admin: 03/20/18 09:21 Dose: 5 mg Atorvastatin Calcium (Lipitor -) 40 mg PO HS [facility] Last Admin: 03/19/18 21:36 Dose: 40 mg Insulin Aspart (Novolog Vial Sliding Scale -) 1 vial SQ [facility]; Protocol Last Admin: 03/20/18 12:00 Dose: 4 units Insulin Detemir (Levemir Vial) 22 units SQ [facility] Last Admin: 03/19/18 21:36 Dose: 22 units Lisinopril (Prinivil) 40 mg PO DAILY [facility] Last Admin: 03/20/18 09:21 Dose: 40 mg Methyl Salicylate (Felix-Seaman -) 1 applic TP Q8H PRN PRN Reason: BODY ACHES Metoprolol Tartrate (Lopressor -) 50 mg PO BID [facility] Last Admin: 03/20/18 09:21 Dose: 50 mg Multi-Ingredient Ointment (Zinc Oxide) 1 applic TP BID [facility] Last Admin: 03/20/18 09:21 Dose: 1 applic Ranitidine HCl (Zantac -) 150 mg PO BID [facility] Last Admin: 03/20/18 09:21 Dose: 150 mg - Objective Vital Signs: Vital Signs Temperature 98.2 F 03/20/18 06:00 Pulse Rate 61 03/20/18 06:00 Respiratory Rate 20 03/20/18 06:00 Blood Pressure 147/81 03/20/18 06:00 O2 Sat by Pulse Oximetry (%) 95 03/18/18 22:00 Constitutional: Yes: No Distress, Calm Neck: Yes: Supple Cardiovascular: Yes: Regular Rate and Rhythm Respiratory: Yes: Regular, Diminished Gastrointestinal: Yes: Normal Bowel Sounds, Soft Edema: No Labs: CBC, BMP 03/20/18 11:30 03/20/18 11:30 INR, PTT INR 1.18 (0.83-1.09) H 02/28/18 20:06 Problem List - Problems (1) Elevated troponin Code(s): R74.8 - ABNORMAL LEVELS OF OTHER SERUM ENZYMES (2) Rapid atrial fibrillation Code(s): I48.91 - UNSPECIFIED ATRIAL FIBRILLATION (3) Diastolic dysfunction Code(s): I51.9 - HEART DISEASE, UNSPECIFIED (4) H/O: CVA (cerebrovascular accident) Code(s): Z86.73 - PRSNL HX OF TIA (TIA), AND CEREB INFRC W/O RESID DEFICITS (5) Hyperlipidemia Code(s): E78.5 - HYPERLIPIDEMIA, UNSPECIFIED Qualifiers: Hyperlipidemia type: pure hypercholesterolemia Qualified Code(s): E78.00 - Pure hypercholesterolemia, unspecified; E78.0 - Pure hypercholesterolemia (6) Hypertension Code(s): I10 - ESSENTIAL (PRIMARY) HYPERTENSION Qualifiers: Hypertension type: essential hypertension Qualified Code(s): I10 - Essential (primary) hypertension (7) Pneumonia Code(s): J18.9 - PNEUMONIA, UNSPECIFIED ORGANISM Qualifiers: Pneumonia type: due to unspecified organism Laterality: right Lung location: lower lobe of lung Qualified Code(s): J18.1 - Lobar pneumonia, unspecified organism (8) Toxic metabolic encephalopathy Code(s): G92 - TOXIC ENCEPHALOPATHY (9) Demand ischemia Code(s): I24.8 - OTHER FORMS OF ACUTE ISCHEMIC HEART DISEASE (10) Premature ventricular contraction Code(s): I49.3 - VENTRICULAR PREMATURE DEPOLARIZATION (11) Volvulus of descending colon Code(s): K56.2 - VOLVULUS Assessment/Plan 12/20/2017 Echo: Normal LV size and fxn, tr MR, TR 1. s/p Acute Hypoxic Respiratory Failure and right lower lobe aspiration pneumonia, resolved 2. Intermittent sigmoid volvulus post rectal tube decompression 3. 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 Diastolic LV dysfunction with clinical class 0-I NYHA classification LV failure, compensated/euvolemic 5. Paroxysmal atrial fibrillation [id number] score 7 on DOAC's/Eliquis 6. Toxic-metabolic encephelopathy 7. History of CVA with residual right-sided weakness PLAN: 1. Continue Lopressor 50 bid increase dose as needed and as tolerated 2. Continue Lisinopril 40 qd 3. Continue Lipitor 40 qhs 4. Continue Eliquis 5 bid with GI protection and close monitoring of CBC 5. Completed abx course, d/c planning, replete K 6. Plan for elective sigmoid colectomy
[2018-03-20] MEDS ORDERED: POTASSIUM CHLORIDE TABS 10 MEQ TABLET.ER (FP) PO ONE (13:27)
[2018-03-20] MEDS ORDERED: PT OWN MED DRAWER 7, Y5N ONE (22:11)
[2018-03-20] MEDS: ATORVASTATIN CA 40 MG TABLET (FP) PO SCH (22:20)
[2018-03-20] MEDS: INSULIN (LEVEMIR) 100 UNITS/ML UNITS SQ SCH (22:20)
[2018-03-20] MEDS ORDERED: INSULIN (LEVEMIR) 100 UNITS/ML UNITS SQ ONE (23:09)
[2018-03-21] MEDS: INSULIN SLIDING SCALE (NOVOLOG) 1 VIAL SQ SCH ×4 (06:20→22:31)
[2018-03-21] MEDS: ALBUTEROL SO4 2.5/IPRATROPIUM 0.5 INH SOL 3 ML VIAL.NEB. NEB SCH (08:50)
[2018-03-21] MEDS: LISINOPRIL 20 MG TABLET (FP) PO SCH (09:55)
[2018-03-21] MEDS: APIXABAN 5 MG TABLET PO SCH ×2 (09:55→22:29)
[2018-03-21] MEDS: RANITIDINE HCL 150 MG TABLET (FP) PO SCH ×2 (09:55→22:29)
[2018-03-21] MEDS: METOPROLOL TARTRATE 50 MG TABLET (FP) PO SCH ×2 (09:55→22:29)
[2018-03-21] MEDS: AMINO ACIDS/PROTEIN HYDROLYS 30 ML LIQUID.PKT PO SCH ×2 (09:56→17:30)
[2018-03-21] MEDS: ZINC OXIDE 20% TOPICAL OINTMENT 30 GM TUBE TP SCH ×2 (09:56→22:31)
--- NOTE | 2018-03-21 11:47 | PN ---
Progress Note (short form) - Note Progress Note: Awake and responsive. No CP or SOB. Tolerating PO intake. Intake & Output 03/18/18 03/19/18 03/20/18 03/21/18 23:59 23:59 23:59 23:59 Intake Total 600 500 480 580 Balance 600 500 480 580 Weight 219 lb 3 oz 226 lb 1.6 oz 220 lb 9.6 oz Last Vital Signs Temp Pulse Resp BP Pulse Ox 98.8 F 73 20 161/88 93 L 03/21/18 06:00 03/21/18 06:00 03/21/18 06:00 03/21/18 06:00 03/20/18 22:00 Active Medications Acetaminophen (Tylenol -) 650 mg PO Q6H PRN PRN Reason: FEVER Amino Acids (Prosource No Carb Liquid Pkt) 30 ml PO BID@0800,1730 [facility] Last Admin: 03/21/18 09:56 Dose: 30 ml Apixaban (Eliquis -) 5 mg PO BID [facility] Last Admin: 03/21/18 09:55 Dose: 5 mg Atorvastatin Calcium (Lipitor -) 40 mg PO [facility] Last Admin: 03/20/18 22:20 Dose: 40 mg Insulin Aspart (Novolog Vial Sliding Scale -) 1 vial SQ [facility]; Protocol Last Admin: 03/21/18 06:20 Dose: 2 units Insulin Detemir (Levemir Vial) 22 units SQ [facility] Last Admin: 03/20/18 22:20 Dose: 22 units Lisinopril (Prinivil) 40 mg PO DAILY [facility] Last Admin: 03/21/18 09:55 Dose: 40 mg Methyl Salicylate (Felix-Seaman -) 1 applic TP Q8H PRN PRN Reason: BODY ACHES Metoprolol Tartrate (Lopressor -) 50 mg PO BID [facility] Last Admin: 03/21/18 09:55 Dose: 50 mg Multi-Ingredient Ointment (Zinc Oxide) 1 applic TP BID [facility] Last Admin: 03/21/18 09:56 Dose: 1 applic Ranitidine HCl (Zantac -) 150 mg PO BID [facility] Last Admin: 03/21/18 09:55 Dose: 150 mg Gen: Awake and alert, NAD Heart: RRR Lung: scattered rhonchi Abd: soft, nontender Ext: no edema Laboratory Results - last 24 hr 03/20/18 03/20/18 03/20/18 11:30 11:30 11:58 WBC 5.8 RBC 3.95 L Hgb 12.8 Hct 35.7 MCV 90.5 MCH 32.3 MCHC 35.7 RDW 15.0 Plt Count 229 MPV 8.6 Absolute Neuts (auto) 2.7 Neutrophils % 46.0 Lymphocytes % 42.9 H Monocytes % 8.2 Eosinophils % 2.0 Basophils % 0.9 Nucleated RBC % 0 Sodium 133 L Potassium 3.4 L Chloride 97 L Carbon Dioxide 27 Anion Gap 9 BUN 10 Creatinine 0.7 Creat Clearance w eGFR > 60 POC Glucometer 233 Random Glucose 240 H Calcium 8.2 L Total Bilirubin 0.4 AST 14 L ALT 17 Alkaline Phosphatase 49 Total Protein 6.1 L Albumin 2.4 L 03/20/18 03/20/18 03/21/18 17:04 22:22 06:05 WBC RBC Hgb Hct MCV MCH MCHC RDW Plt Count MPV Absolute Neuts (auto) Neutrophils % Lymphocytes % Monocytes % Eosinophils % Basophils % Nucleated RBC % Sodium Potassium Chloride Carbon Dioxide Anion Gap BUN Creatinine Creat Clearance w eGFR POC Glucometer 172 214 162 Random Glucose Calcium Total Bilirubin AST ALT Alkaline Phosphatase Total Protein Albumin A/P s/p Acute Hypoxic Respiratory Failure Pneumonia likely Aspiration clinically improved Sigmoid Volvulus s/p Rectal Tube Decompression Sepsis resolved LV Diastolic Dysfunction +Troponins likely Demand Ischemia Paroxysmal Atrial Fibrillation h/o CVA - completed antibiotics - O2 to keep SpO2 >90% - aspiration precautions - rate control - continue anticoagulation - DVT prophylaxis - D/C planning Dr Patel
--- NOTE | 2018-03-21 12:26 | PN ---
Progress Note (short form) - Note Progress Note: awake no distress Vital Signs - 24 hr 03/20/18 03/20/18 03/20/18 14:30 16:30 21:00 Temperature 98 F 98 F Pulse Rate 81 107 H Respiratory 20 20 Rate Blood Pressure 149/81 128/89 O2 Sat by Pulse 93 L Oximetry (%) 03/20/18 03/21/18 22:00 06:00 Temperature 98.6 F 98.8 F Pulse Rate 74 73 Respiratory 20 20 Rate Blood Pressure 126/50 L 161/88 O2 Sat by Pulse 93 L Oximetry (%) Current Medications Generic Name Dose Route Start Last Admin Trade Name Freq PRN Reason Stop Dose Admin Acetaminophen 650 mg 03/11/18 15:31 Tylenol - PO Q6H PRN FEVER Amino Acids 30 ml 03/15/18 17:30 03/21/18 09:56 Prosource No Carb Liquid Pkt PO 30 ml BID@0800,1730 [facility] Administration Apixaban 5 mg 03/16/18 22:00 03/21/18 09:55 Eliquis - PO 5 mg BID [facility] Administration Atorvastatin Calcium 40 mg 03/16/18 10:16 03/20/18 22:20 Lipitor - PO 40 mg HS [facility] Administration Insulin Aspart 1 vial 03/11/18 16:30 03/21/18 12:02 Novolog Vial Sliding Scale - SQ 6 units ACHS [facility] Administration Protocol Insulin Detemir 22 units 03/18/18 13:38 03/20/18 22:20 Levemir Vial SQ 22 units HS [facility] Administration Lisinopril 40 mg 03/17/18 13:30 03/21/18 09:55 Prinivil PO 40 mg DAILY [facility] Administration Methyl Salicylate 1 applic 03/11/18 15:31 Felix-Seaman - TP Q8H PRN BODY ACHES Metoprolol Tartrate 50 mg 03/19/18 11:13 03/21/18 09:55 Lopressor - PO 50 mg BID [facility] Administration Multi-Ingredient Ointment 1 applic 03/11/18 22:00 03/21/18 09:56 Zinc Oxide TP 1 applic BID [facility] Administration Ranitidine HCl 150 mg 03/16/18 22:00 03/21/18 09:55 Zantac - PO 150 mg BID [facility] Administration Laboratory Results - last 24 hr 03/20/18 03/20/18 03/20/18 11:30 17:04 22:22 Sodium 133 L Potassium 3.4 L Chloride 97 L Carbon Dioxide 27 Anion Gap 9 BUN 10 Creatinine 0.7 Creat Clearance w eGFR > 60 POC Glucometer 172 214 Random Glucose 240 H Calcium 8.2 L Total Bilirubin 0.4 AST 14 L ALT 17 Alkaline Phosphatase 49 Total Protein 6.1 L Albumin 2.4 L 03/21/18 06:05 Sodium Potassium Chloride Carbon Dioxide Anion Gap BUN Creatinine Creat Clearance w eGFR POC Glucometer 162 Random Glucose Calcium Total Bilirubin AST ALT Alkaline Phosphatase Total Protein Albumin S1 S2 irregular Lungs decreased, ronchi ABd- soft, NT, BS+distended No edema Sepsis, pneumonia,volvulus, pneumonia RLL -- tolerating diet -- increase insulin -- off antibiotics -- may need intermittent rectal tube placements per GI -- continue with meds -- PT eval -- daughter unable to place rectal tube for pt -- frequent turning -- dc planning--spoke with social work administrator-- > may need to go to SNF - get medically optimized and go for elective surgery Problem List - Problems (1) Demand ischemia Code(s): I24.8 - OTHER FORMS OF ACUTE ISCHEMIC HEART DISEASE (2) Elevated troponin Code(s): R74.8 - ABNORMAL LEVELS OF OTHER SERUM ENZYMES (3) Pneumonia Code(s): J18.9 - PNEUMONIA, UNSPECIFIED ORGANISM (4) Rapid atrial fibrillation Code(s): I48.91 - UNSPECIFIED ATRIAL FIBRILLATION (5) Sepsis Code(s): A41.9 - SEPSIS, UNSPECIFIED ORGANISM Qualifiers: Sepsis type: sepsis due to unspecified organism Qualified Code(s): A41.9 - Sepsis, unspecified organism
--- NOTE | 2018-03-21 12:49 | PN ---
Progress Note, [employer] - Note Progress Note: MBS reviewed. Pt on pureed diet/nectar thick liquid. Selected Entries 03/14/18 03/14/18 03/14/18 05:00 09:35 15:20 Breakfast Lunch Temperature 99.5 F 99 F 98.7 F 03/14/18 03/14/18 03/14/18 17:11 21:15 22:00 Breakfast Lunch Temperature 98.5 F 98.2 F 98.2 F 03/15/18 03/15/18 06:00 15:56 Breakfast 100% Lunch 100% Temperature 98.7 F 98.6 F Selected Entries 03/20/18 03/20/18 03/21/18 10:18 14:30 06:00 Breakfast 100% Lunch 100% Temperature 98.8 F 03/21/18 11:26 Breakfast 100% Lunch Temperature Laboratory Tests 03/20/18 11:30 WBC 5.8 Doing well with diet. Monitor tolerance Consider NH for STR again. Pt was transferring with assist of 1 whwen he was recently discharged.
[2018-03-21 14:19] LABS: ANION GAP 7 MMOL/L (8-16); BLOOD UREA NITROGEN 10 mg/dL (7-18); CALCIUM 8.3 mg/dL (8.5-10.1); CHLORIDE 98 mmol/L (98-107); CO2 30 mmol/L (21-32); CREATININE 0.7 mg/dL (0.55-1.3); GLUCOSE,RANDOM 225 mg/dL (74-106); POTASSIUM 3.5 mmol/L (3.5-5.1); SODIUM 136 mmol/L (136-145)
[2018-03-21] MEDS ORDERED: PT OWN MED DRAWER 7, Y5N ONE (22:26)
[2018-03-21] MEDS: INSULIN (LEVEMIR) 100 UNITS/ML UNITS SQ SCH (22:29)
[2018-03-21] MEDS: ATORVASTATIN CA 40 MG TABLET (FP) PO SCH (22:29)
[2018-03-22] MEDS: INSULIN SLIDING SCALE (NOVOLOG) 1 VIAL SQ SCH ×4 (06:41→21:57)
[2018-03-22 08:09] LABS: HEMATOCRIT 38.7 % (35.4-49); HEMOGLOBIN 13.3 GM/dL (11.7-16.9); MCH 30.9 pg (25.7-33.7); MCHC 34.3 g/dl (32.0-35.9); MEAN CELL VOLUME 90.2 fl (80-96); MEAN PLT VOLUME 8.8 fl (7.5-11.1); PLATELET COUNT 215 K/MM3 (134-434); RBC 4.29 M/mm3 (4.00-5.60); RDW 14.9 % (11.9-15.9); WHITE BLOOD COUNT 5.9 K/mm3 (4.0-10.0)
[2018-03-22] MEDS: AMINO ACIDS/PROTEIN HYDROLYS 30 ML LIQUID.PKT PO SCH ×2 (08:28→16:36)
[2018-03-22 08:46] LABS: ANION GAP 9 MMOL/L (8-16); BLOOD UREA NITROGEN 7 mg/dL (7-18); CALCIUM 8.5 mg/dL (8.5-10.1); CHLORIDE 100 mmol/L (98-107); CO2 29 mmol/L (21-32); CREATININE 0.7 mg/dL (0.55-1.3); GLUCOSE,RANDOM 158 mg/dL (74-106); POTASSIUM 3.5 mmol/L (3.5-5.1); SODIUM 138 mmol/L (136-145)
[2018-03-22] MEDS ORDERED: PT OWN MED DRAWER 7, Y5N ONE (09:27)
[2018-03-22] MEDS: METOPROLOL TARTRATE 50 MG TABLET (FP) PO SCH ×2 (09:28→21:57)
[2018-03-22] MEDS: RANITIDINE HCL 150 MG TABLET (FP) PO SCH ×2 (09:28→21:57)
[2018-03-22] MEDS: LISINOPRIL 20 MG TABLET (FP) PO SCH (09:28)
[2018-03-22] MEDS: APIXABAN 5 MG TABLET PO SCH ×2 (09:28→21:57)
[2018-03-22] MEDS: ZINC OXIDE 20% TOPICAL OINTMENT 30 GM TUBE TP SCH ×2 (09:29→21:57)
[2018-03-22] MEDS ORDERED: INSULIN (NOVOLOG) ASPART 100 UNITS/ML 10ML VIAL ONE (11:33)
--- NOTE | 2018-03-22 11:46 | DS ---
Physical Examination Vital Signs: Vital Signs Temperature 99.4 F 03/22/18 06:51 Pulse Rate 69 03/22/18 06:51 Respiratory Rate 20 03/22/18 06:51 Blood Pressure 146/104 H 03/22/18 06:51 O2 Sat by Pulse Oximetry (%) 96 03/22/18 10:00 Constitutional: Yes: No Distress, Calm Cardiovascular: Yes: Pulse Irregular Respiratory: Yes: Diminished Gastrointestinal: Yes: Normal Bowel Sounds, Soft, Distention Edema: No Labs: CBC, BMP 03/22/18 06:30 03/22/18 06:30 Discharge Summary Reason For Visit: SEPSIS Current Active Problems Demand ischemia (Acute) Distended abdomen (Acute) Elevated troponin (Acute) Hypokalemia (Acute) Hypoxemia (Acute) Pneumonia (Acute) Premature ventricular contraction (Acute) Prolonged Q-T interval on ECG (Acute) Rapid atrial fibrillation (Acute) Sepsis (Acute) Volvulus of descending colon (Acute) Volvulus of sigmoid colon (Acute) Hospital Course: Admitted for sepsis, left Lowe lobe pneumonia, rapid Afib Seen by ID, Cardiology and GI Started Eliquis and rate control Course complicated by sigmoid volvulus Seen by GI and Surgery Abd distension resolved with intermittent rectal tube decompression every other day Pt clinically better completed antibiotics pt needs to medically optimized prior to sigmoid colon resection surgery Stable for dc to NH after dc from rehab, will need to follow up with Surgeon dr Sharif Condition: Fair - Instructions Diet, Activity, Other Instructions: Follow-up: Call Dr. Sharif' office at [phone] to make your follow-up appointment (Tuesday in approximately 2 weeks after surgery as advised). Clinic is held in the Diagnostic [facility] on the first floor of [facility]. Also, see your primary medical doctor within 1-2 weeks. Referrals: Maciej Bautista MD [Primary Care Provider] - Disposition: LONG-TERM FACILITY - Home Medications Comprehensive Discharge Medication List: Ambulatory Orders Acetaminophen [Tylenol -] 650 mg PO Q4H PRN 02/28/18 Albuterol 2.5/Ipratropium 0.5 [Duoneb -] 1 neb IH QID 02/28/18 Amlodipine Besylate [Norvasc -] 10 mg PO DAILY 02/28/18 Amox-Tr/K Cl [Augmentin - 875Mg Tablet] 1 tab PO BID 02/28/18 Ascorbic Acid [Vitamin C -] 500 mg PO DAILY 02/28/18 Aspirin [ASA -] 81 mg PO DAILY 02/28/18 Atorvastatin Ca [Lipitor] 40 mg PO HS 02/28/18 Azelastine HCl 1 spr NS BID 02/28/18 Clotrimazole [Lotrimin 1% Solution -] 1 applic TP BID 02/28/18 Diltiazem [Cardizem -] 60 mg PO BID 02/28/18 Docusate Sodium [Colace -] 200 mg PO DAILY 02/28/18 Ergocalciferol [Vitamin D2] 50,000 unit PO WEEKLY 02/28/18 Escitalopram Oxalate [Lexapro -] 10 mg PO DAILY 02/28/18 Furosemide [Lasix -] 40 mg PO DAILY 02/28/18 Gabapentin [Neurontin -] 300 mg PO TID 02/28/18 Insulin (LOG) Aspart [NovoLOG -] 0 units SQ BID 02/28/18 Insulin Detemir [Levemir Flextouch] 17 unit SQ HS 02/28/18 Lidocaine 5% Top. Ointment [Xylocaine 5% Top. Ointment] 1 applic TP TID Lisinopril 30 mg PO DAILY 02/28/18 Nystatin 100,000 unit PO QID 02/28/18 Sennosides [Senna] 2 tab PO HS 02/28/18 Sennosides/Docusate Sodium [Senexon-S Tablet] 1 each PO HS 02/28/18 Zinc Oxide 20% Topical Oint 454 gm NR BID 02/28/18 Aa/Hydrolyzed Collagen, Whey [Lps 15-30 Liquid] 30 ml PO DAILY 03/01/18 Methyl Salicylate/Menth/Camph [Bengay Ultra Strength Cream] 1 applic TP TID 11/09
--- NOTE | 2018-03-22 16:13 | PN ---
Progress Note, Physician History of Present Illness: pulmonary no distress,awake,-sob - Current Medication List Current Medications: Active Medications Acetaminophen (Tylenol -) 650 mg PO Q6H PRN PRN Reason: FEVER Amino Acids (Prosource No Carb Liquid Pkt) 30 ml PO BID@0800,1730 [facility] Last Admin: 03/22/18 08:28 Dose: 30 ml Apixaban (Eliquis -) 5 mg PO BID [facility] Last Admin: 03/22/18 09:28 Dose: 5 mg Atorvastatin Calcium (Lipitor -) 40 mg PO HS [facility] Last Admin: 03/21/18 22:29 Dose: 40 mg Insulin Aspart (Novolog Vial Sliding Scale -) 1 vial SQ [facility]; Protocol Last Admin: 03/22/18 11:34 Dose: 4 units Insulin Detemir (Levemir Vial) 22 units SQ [facility] Last Admin: 03/21/18 22:29 Dose: 22 units Lisinopril (Prinivil) 40 mg PO DAILY [facility] Last Admin: 03/22/18 09:28 Dose: 40 mg Methyl Salicylate (Felix-Seaman -) 1 applic TP Q8H PRN PRN Reason: BODY ACHES Metoprolol Tartrate (Lopressor -) 50 mg PO BID [facility] Last Admin: 03/22/18 09:28 Dose: 50 mg Multi-Ingredient Ointment (Zinc Oxide) 1 applic TP BID [facility] Last Admin: 03/22/18 09:29 Dose: 1 applic Ranitidine HCl (Zantac -) 150 mg PO BID [facility] Last Admin: 03/22/18 09:28 Dose: 150 mg - Objective Vital Signs: Vital Signs Temperature 97.9 F 03/22/18 15:35 Pulse Rate 60 03/22/18 15:35 Respiratory Rate 18 03/22/18 15:35 Blood Pressure 144/82 03/22/18 15:35 O2 Sat by Pulse Oximetry (%) 96 03/22/18 10:00 Constitutional: Yes: Well Nourished, Calm Eyes: Yes: WNL HENT: Yes: WNL Neck: Yes: WNL Cardiovascular: Yes: Pulse Irregular, S1, S2 Respiratory: Yes: Rhonchi (scattered alicia rhonchi) Gastrointestinal: Yes: Normal Bowel Sounds, Soft Extremities: Yes: WNL Edema: No Labs: CBC, BMP 03/22/18 06:30 03/22/18 06:30 INR, PTT INR 1.18 (0.83-1.09) H 02/28/18 20:06 Problem List - Problems (1) Hypoxemia Code(s): R09.02 - HYPOXEMIA (2) Sepsis Code(s): A41.9 - SEPSIS, UNSPECIFIED ORGANISM Qualifiers: Sepsis type: sepsis due to unspecified organism Qualified Code(s): A41.9 - Sepsis, unspecified organism (3) Volvulus of descending colon Code(s): K56.2 - VOLVULUS (4) COPD (chronic obstructive pulmonary disease) Code(s): J44.9 - CHRONIC OBSTRUCTIVE PULMONARY DISEASE, UNSPECIFIED Qualifiers: Emphysema type: unspecified (5) Diabetes Code(s): E11.9 - TYPE 2 DIABETES MELLITUS WITHOUT COMPLICATIONS (6) Diastolic dysfunction Code(s): I51.9 - HEART DISEASE, UNSPECIFIED (7) H/O: CVA (cerebrovascular accident) Code(s): Z86.73 - PRSNL HX OF TIA (TIA), AND CEREB INFRC W/O RESID DEFICITS (8) Hypertension Code(s): I10 - ESSENTIAL (PRIMARY) HYPERTENSION Qualifiers: Hypertension type: essential hypertension Qualified Code(s): I10 - Essential (primary) hypertension (9) Pneumonia Code(s): J18.9 - PNEUMONIA, UNSPECIFIED ORGANISM Qualifiers: Pneumonia type: due to unspecified organism Laterality: right Lung location: lower lobe of lung Qualified Code(s): J18.1 - Lobar pneumonia, unspecified organism (10) Respiratory distress Code(s): R06.00 - DYSPNEA, UNSPECIFIED (11) Hypokalemia Code(s): E87.6 - HYPOKALEMIA (12) Pneumonia Code(s): J18.9 - PNEUMONIA, UNSPECIFIED ORGANISM (13) Prolonged Q-T interval on ECG Code(s): R94.31 - ABNORMAL ELECTROCARDIOGRAM [ECG] [EKG] Assessment/Plan ASSESSMENT AND PLAN: s/p Acute Hypoxic Respiratory Failure Pneumonia likely Aspiration clinically improved Sigmoid Volvulus s/p Rectal Tube Decompression Sepsis Lactic Acidosis LV Diastolic Dysfunction +Troponins likely Demand Ischemia Paroxysmal Atrial Fibrillation h/o CVA - nasal cannula - aspiration precautions - rate control - anticoagulation - DVT prophylaxis DR MIGUEL
--- NOTE | 2018-03-22 17:27 | PN ---
Progress Note, Physician History of Present Illness: Tolerating oral intake with rectal tube out, remains in NSR. - Current Medication List Current Medications: Active Medications Acetaminophen (Tylenol -) 650 mg PO Q6H PRN PRN Reason: FEVER Amino Acids (Prosource No Carb Liquid Pkt) 30 ml PO BID@0800,1730 [facility] Last Admin: 03/22/18 16:36 Dose: 30 ml Apixaban (Eliquis -) 5 mg PO BID [facility] Last Admin: 03/22/18 09:28 Dose: 5 mg Atorvastatin Calcium (Lipitor -) 40 mg PO HS [facility] Last Admin: 03/21/18 22:29 Dose: 40 mg Insulin Aspart (Novolog Vial Sliding Scale -) 1 vial SQ [facility]; Protocol Last Admin: 03/22/18 16:36 Dose: 4 units Insulin Detemir (Levemir Vial) 22 units SQ [facility] Last Admin: 03/21/18 22:29 Dose: 22 units Lisinopril (Prinivil) 40 mg PO DAILY [facility] Last Admin: 03/22/18 09:28 Dose: 40 mg Methyl Salicylate (Felix-Seaman -) 1 applic TP Q8H PRN PRN Reason: BODY ACHES Metoprolol Tartrate (Lopressor -) 50 mg PO BID [facility] Last Admin: 03/22/18 09:28 Dose: 50 mg Multi-Ingredient Ointment (Zinc Oxide) 1 applic TP BID [facility] Last Admin: 03/22/18 09:29 Dose: 1 applic Ranitidine HCl (Zantac -) 150 mg PO BID [facility] Last Admin: 03/22/18 09:28 Dose: 150 mg - Objective Vital Signs: Vital Signs Temperature 97.9 F 03/22/18 15:35 Pulse Rate 60 03/22/18 15:35 Respiratory Rate 18 03/22/18 15:35 Blood Pressure 144/82 03/22/18 15:35 O2 Sat by Pulse Oximetry (%) 96 03/22/18 10:00 Constitutional: Yes: No Distress, Calm Neck: Yes: Supple Cardiovascular: Yes: Regular Rate and Rhythm Respiratory: Yes: Regular, CTA Bilaterally Gastrointestinal: Yes: Normal Bowel Sounds, Soft Edema: No Labs: CBC, BMP 03/22/18 06:30 03/22/18 06:30 INR, PTT INR 1.18 (0.83-1.09) H 02/28/18 20:06 Problem List - Problems (1) Elevated troponin Code(s): R74.8 - ABNORMAL LEVELS OF OTHER SERUM ENZYMES (2) Rapid atrial fibrillation Code(s): I48.91 - UNSPECIFIED ATRIAL FIBRILLATION (3) Diastolic dysfunction Code(s): I51.9 - HEART DISEASE, UNSPECIFIED (4) H/O: CVA (cerebrovascular accident) Code(s): Z86.73 - PRSNL HX OF TIA (TIA), AND CEREB INFRC W/O RESID DEFICITS (5) Hyperlipidemia Code(s): E78.5 - HYPERLIPIDEMIA, UNSPECIFIED Qualifiers: Hyperlipidemia type: pure hypercholesterolemia Qualified Code(s): E78.00 - Pure hypercholesterolemia, unspecified; E78.0 - Pure hypercholesterolemia (6) Hypertension Code(s): I10 - ESSENTIAL (PRIMARY) HYPERTENSION Qualifiers: Hypertension type: essential hypertension Qualified Code(s): I10 - Essential (primary) hypertension (7) Pneumonia Code(s): J18.9 - PNEUMONIA, UNSPECIFIED ORGANISM Qualifiers: Pneumonia type: due to unspecified organism Laterality: right Lung location: lower lobe of lung Qualified Code(s): J18.1 - Lobar pneumonia, unspecified organism (8) Toxic metabolic encephalopathy Code(s): G92 - TOXIC ENCEPHALOPATHY (9) Demand ischemia Code(s): I24.8 - OTHER FORMS OF ACUTE ISCHEMIC HEART DISEASE (10) Premature ventricular contraction Code(s): I49.3 - VENTRICULAR PREMATURE DEPOLARIZATION (11) Volvulus of descending colon Code(s): K56.2 - VOLVULUS Assessment/Plan 12/20/2017 Echo: Normal LV size and fxn, tr MR, TR 1. s/p Acute Hypoxic Respiratory Failure and right lower lobe aspiration pneumonia, resolved 2. Intermittent sigmoid volvulus post rectal tube decompression 3. 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 Diastolic LV dysfunction with clinical class 0-I NYHA classification LV failure, compensated/euvolemic 5. Paroxysmal atrial fibrillation [id number] score 7 on DOAC's/Eliquis 6. Toxic-metabolic encephelopathy 7. History of CVA with residual right-sided weakness PLAN: 1. Continue Lopressor 50 bid increase dose as needed and as tolerated 2. Continue Lisinopril 40 qd 3. Continue Lipitor 40 qhs 4. Continue Eliquis 5 bid with GI protection and close monitoring of CBC 5. Completed abx course, d/c planning 6. Plan for elective sigmoid colectomy
[2018-03-22] MEDS: INSULIN (LEVEMIR) 100 UNITS/ML UNITS SQ SCH (21:56)
[2018-03-22] MEDS: ATORVASTATIN CA 40 MG TABLET (FP) PO SCH (21:57)
[2018-03-23] MEDS: INSULIN SLIDING SCALE (NOVOLOG) 1 VIAL SQ SCH ×4 (06:46→21:32)
[2018-03-23] MEDS ORDERED: PANTOPRAZOLE SODIUM 40 MG VIAL IVPUSH ONE (08:27)
--- NOTE | 2018-03-23 08:54 | PN ---
Progress Note (short form) - Note Progress Note: Awake and responsive. No CP or SOB. Noted that he apparently vomited this AM. Intake & Output 03/20/18 03/21/18 03/22/18 03/23/18 23:59 23:59 23:59 23:59 Intake Total 021 475 1663 Balance 019 056 5189 Weight 220 lb 9.6 oz 215 lb 4 oz 211 lb 11.2 oz Last Vital Signs Temp Pulse Resp BP Pulse Ox 97.7 F 57 L 20 156/76 96 03/23/18 06:15 03/23/18 06:15 03/23/18 06:15 03/23/18 06:15 03/22/18 21:00 Active Medications Acetaminophen (Tylenol -) 650 mg PO Q6H PRN PRN Reason: FEVER Amino Acids (Prosource No Carb Liquid Pkt) 30 ml PO BID@0800,1730 [facility] Last Admin: 03/22/18 16:36 Dose: 30 ml Apixaban (Eliquis -) 5 mg PO BID [facility] Last Admin: 03/22/18 21:57 Dose: 5 mg Atorvastatin Calcium (Lipitor -) 40 mg PO HS [facility] Last Admin: 03/22/18 21:57 Dose: 40 mg Insulin Aspart (Novolog Vial Sliding Scale -) 1 vial SQ [facility]; Protocol Last Admin: 03/23/18 06:46 Dose: 4 units Insulin Detemir (Levemir Vial) 22 units SQ [facility] Last Admin: 03/22/18 21:56 Dose: 22 units Lisinopril (Prinivil) 40 mg PO DAILY [facility] Last Admin: 03/22/18 09:28 Dose: 40 mg Methyl Salicylate (Felix-Seaman -) 1 applic TP Q8H PRN PRN Reason: BODY ACHES Metoprolol Tartrate (Lopressor -) 50 mg PO BID [facility] Last Admin: 03/22/18 21:57 Dose: 50 mg Multi-Ingredient Ointment (Zinc Oxide) 1 applic TP BID [facility] Last Admin: 03/22/18 21:57 Dose: 1 applic Ranitidine HCl (Zantac -) 150 mg PO BID [facility] Last Admin: 03/22/18 21:57 Dose: 150 mg Gen: Awake and alert, NAD Heart: RRR Lung: scattered rhonchi Abd: soft, nontender Ext: edema Laboratory Results - last 24 hr 03/22/18 03/22/18 03/22/18 11:30 16:15 21:55 POC Glucometer 218 209 193 03/23/18 06:46 POC Glucometer 205 A/P s/p Acute Hypoxic Respiratory Failure Pneumonia likely Aspiration clinically improved Sigmoid Volvulus s/p Rectal Tube Decompression Sepsis resolved LV Diastolic Dysfunction +Troponins likely Demand Ischemia Paroxysmal Atrial Fibrillation h/o CVA - PO as tolerated - completed antibiotics - O2 to keep SpO2 >90% - aspiration precautions - rate control - continue anticoagulation - DVT prophylaxis - D/C planning Dr Patel
[2018-03-23] MEDS: APIXABAN 5 MG TABLET PO SCH ×2 (10:14→21:35)
[2018-03-23] MEDS: METOPROLOL TARTRATE 50 MG TABLET (FP) PO SCH ×2 (10:14→21:35)
[2018-03-23] MEDS: LISINOPRIL 20 MG TABLET (FP) PO SCH (10:14)
[2018-03-23] MEDS: ZINC OXIDE 20% TOPICAL OINTMENT 30 GM TUBE TP SCH ×2 (10:15→21:37)
[2018-03-23] MEDS: RANITIDINE HCL 150 MG TABLET (FP) PO SCH ×2 (10:15→21:37)
[2018-03-23] MEDS: AMINO ACIDS/PROTEIN HYDROLYS 30 ML LIQUID.PKT PO SCH ×2 (10:28→17:31)
--- NOTE | 2018-03-23 11:30 | PN ---
Progress Note, Physician Chief Complaint: Events noted Not in distress History of Present Illness: Patient was seen and examined. Awake. Chart was reviewed Denies chest pain, SOB or palpitations - Current Medication List Current Medications: Active Medications Acetaminophen (Tylenol -) 650 mg PO Q6H PRN PRN Reason: FEVER Amino Acids (Prosource No Carb Liquid Pkt) 30 ml PO BID@0800,1730 [facility] Last Admin: 03/23/18 10:28 Dose: Not Given Apixaban (Eliquis -) 5 mg PO BID [facility] Last Admin: 03/23/18 10:14 Dose: 5 mg Atorvastatin Calcium (Lipitor -) 40 mg PO HS [facility] Last Admin: 03/22/18 21:57 Dose: 40 mg Insulin Aspart (Novolog Vial Sliding Scale -) 1 vial SQ [facility]; Protocol Last Admin: 03/23/18 06:46 Dose: 4 units Insulin Detemir (Levemir Vial) 22 units SQ [facility] Last Admin: 03/22/18 21:56 Dose: 22 units Lisinopril (Prinivil) 40 mg PO DAILY [facility] Last Admin: 03/23/18 10:14 Dose: 40 mg Methyl Salicylate (Felix-Seaman -) 1 applic TP Q8H PRN PRN Reason: BODY ACHES Metoprolol Tartrate (Lopressor -) 50 mg PO BID [facility] Last Admin: 03/23/18 10:14 Dose: 50 mg Multi-Ingredient Ointment (Zinc Oxide) 1 applic TP BID [facility] Last Admin: 03/23/18 10:15 Dose: 1 applic Ranitidine HCl (Zantac -) 150 mg PO BID [facility] Last Admin: 03/23/18 10:15 Dose: 150 mg - Objective Vital Signs: Vital Signs Temperature 97 F L 03/23/18 10:00 Pulse Rate 93 H 03/23/18 10:00 Respiratory Rate 20 03/23/18 10:00 Blood Pressure 187/94 H 03/23/18 10:00 O2 Sat by Pulse Oximetry (%) 96 03/22/18 21:00 Eyes: Yes: PERRL HENT: Yes: Atraumatic Neck: Yes: Supple Cardiovascular: Yes: Regular Rate and Rhythm, S1, S2 Respiratory: Yes: CTA Bilaterally Gastrointestinal: Yes: Normal Bowel Sounds, Soft. No: Tenderness Edema: No Labs: CBC, BMP 03/22/18 06:30 03/22/18 06:30 Problem List - Problems (1) Demand ischemia Code(s): I24.8 - OTHER FORMS OF ACUTE ISCHEMIC HEART DISEASE (2) Pneumonia Code(s): J18.9 - PNEUMONIA, UNSPECIFIED ORGANISM (3) Premature ventricular contraction Code(s): I49.3 - VENTRICULAR PREMATURE DEPOLARIZATION (4) Rapid atrial fibrillation Code(s): I48.91 - UNSPECIFIED ATRIAL FIBRILLATION (5) Sepsis Code(s): A41.9 - SEPSIS, UNSPECIFIED ORGANISM Qualifiers: Sepsis type: sepsis due to unspecified organism Qualified Code(s): A41.9 - Sepsis, unspecified organism (6) Volvulus of sigmoid colon Code(s): K56.2 - VOLVULUS (7) COPD (chronic obstructive pulmonary disease) Code(s): J44.9 - CHRONIC OBSTRUCTIVE PULMONARY DISEASE, UNSPECIFIED Qualifiers: Emphysema type: unspecified (8) Diabetes Code(s): E11.9 - TYPE 2 DIABETES MELLITUS WITHOUT COMPLICATIONS (9) Diastolic dysfunction Code(s): I51.9 - HEART DISEASE, UNSPECIFIED (10) H/O: CVA (cerebrovascular accident) Code(s): Z86.73 - PRSNL HX OF TIA (TIA), AND CEREB INFRC W/O RESID DEFICITS (11) Hyperlipidemia Code(s): E78.5 - HYPERLIPIDEMIA, UNSPECIFIED Qualifiers: Hyperlipidemia type: pure hypercholesterolemia Qualified Code(s): E78.00 - Pure hypercholesterolemia, unspecified; E78.0 - Pure hypercholesterolemia (12) Hypertension Code(s): I10 - ESSENTIAL (PRIMARY) HYPERTENSION Qualifiers: Hypertension type: essential hypertension Qualified Code(s): I10 - Essential (primary) hypertension (13) Toxic metabolic encephalopathy Code(s): G92 - TOXIC ENCEPHALOPATHY Assessment/Plan 1. Acute Hypoxic Respiratory Failure and right lower lobe aspiration pneumonia 2. Intermittent sigmoid volvulus post rectal tube decompression 3. 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 Diastolic LV dysfunction with clinical class 0-I NYHA classification LV failure, compensated/euvolemic 5. Paroxysmal atrial fibrillation [id number] score 7 on DOAC/Eliquis 6. Toxic-metabolic encephalopathy 7. History of CVA with residual right-sided weakness PLAN: 1. Continue Lopressor and Lisinopril as tolerated 2. Continue Lipitor 40 mg QHS 3. Continue Eliquis 5 mg BID as tolerated 4. Discharge planning and possible elective sigmoid colectomy in the future Rachid Richards MD
--- NOTE | 2018-03-23 12:57 | PN ---
Progress Note (short form) - Note Progress Note: awake no distress vomiting - 1 episode Vital Signs - 24 hr 03/22/18 03/22/18 03/22/18 15:35 16:30 21:00 Temperature 97.9 F 98.6 F Pulse Rate 60 60 Respiratory 18 18 Rate Blood Pressure 144/82 136/80 O2 Sat by Pulse 96 Oximetry (%) 03/22/18 03/23/18 03/23/18 22:00 06:15 10:00 Temperature 98.2 F 97.7 F 97 F L Pulse Rate 60 57 L 93 H Respiratory 20 20 20 Rate Blood Pressure 139/83 156/76 187/94 H O2 Sat by Pulse Oximetry (%) Current Medications Generic Name Dose Route Start Last Admin Trade Name Freq PRN Reason Stop Dose Admin Acetaminophen 650 mg 03/11/18 15:31 Tylenol - PO Q6H PRN FEVER Amino Acids 30 ml 03/15/18 17:30 03/23/18 10:28 Prosource No Carb Liquid Pkt PO Not Given BID@0800,1730 [facility] Apixaban 5 mg 03/16/18 22:00 03/23/18 10:14 Eliquis - PO 5 mg BID [facility] Administration Atorvastatin Calcium 40 mg 03/16/18 10:16 03/22/18 21:57 Lipitor - PO 40 mg HS [facility] Administration Insulin Aspart 1 vial 03/11/18 16:30 03/23/18 11:49 Novolog Vial Sliding Scale - SQ 2 units ACHS [facility] Administration Protocol Insulin Detemir 22 units 03/18/18 13:38 03/22/18 21:56 Levemir Vial SQ 22 units HS [facility] Administration Lisinopril 40 mg 03/17/18 13:30 03/23/18 10:14 Prinivil PO 40 mg DAILY [facility] Administration Methyl Salicylate 1 applic 03/11/18 15:31 Felix-Seaman - TP Q8H PRN BODY ACHES Metoprolol Tartrate 50 mg 03/19/18 11:13 03/23/18 10:14 Lopressor - PO 50 mg BID [facility] Administration Multi-Ingredient Ointment 1 applic 03/11/18 22:00 03/23/18 10:15 Zinc Oxide TP 1 applic BID [facility] Administration Ranitidine HCl 150 mg 03/16/18 22:00 03/23/18 10:15 Zantac - PO 150 mg BID [facility] Administration Laboratory Results - last 24 hr 03/22/18 03/22/18 03/23/18 16:15 21:55 06:46 POC Glucometer 209 193 205 03/23/18 11:46 POC Glucometer 184 S1 S2 irregular Lungs decreased, ronchi ABd- soft, NT, BS+distended more today No edema Sepsis, pneumonia,volvulus, pneumonia RLL -- check fua -- npo -- surgical follow up -- GI follow up -- increase insulin -- off antibiotics Problem List - Problems (1) Demand ischemia Code(s): I24.8 - OTHER FORMS OF ACUTE ISCHEMIC HEART DISEASE (2) Elevated troponin Code(s): R74.8 - ABNORMAL LEVELS OF OTHER SERUM ENZYMES (3) Pneumonia Code(s): J18.9 - PNEUMONIA, UNSPECIFIED ORGANISM (4) Rapid atrial fibrillation Code(s): I48.91 - UNSPECIFIED ATRIAL FIBRILLATION (5) Sepsis Code(s): A41.9 - SEPSIS, UNSPECIFIED ORGANISM Qualifiers: Sepsis type: sepsis due to unspecified organism Qualified Code(s): A41.9 - Sepsis, unspecified organism
[2018-03-23] MEDS: D5-1/2NS+20 MEQ KCL - 20 MEQ/1,000 ML INFUS.BAG IV SCH (14:00)
--- NOTE | 2018-03-23 17:55 | PN ---
GI Progress Note Subjective: s/p vonmiting this morning/ FUA done patient with volvulus vs stricture. S/P rectal tube insertion applied water and fleet enemas, passage of gas and air - Objective Vital Signs: Vital Signs Temperature 97 F L 03/23/18 10:00 Pulse Rate 93 H 03/23/18 10:00 Respiratory Rate 20 03/23/18 10:00 Blood Pressure 187/94 H 03/23/18 10:00 O2 Sat by Pulse Oximetry (%) 96 03/22/18 21:00 Constitutional: Well Nourished Eyes: Yes: Conjunctiva Clear HENT: Yes: Atraumatic Neck: Yes: Supple Cardiovascular: Yes: Regular Rate and Rhythm Respiratory: Yes: CTA Bilaterally Gastrointestinal Inspection: Yes: Distention ...Auscultate: Yes: Normoactive Bowel Sounds ...Palpate: Yes: Soft. No: Firm/Rigid, Guarding, Hepatomegaly, Mass, Pulsatile Mass, Splenomegaly, Tenderness, Rebound Labs: CBC, BMP 03/22/18 06:30 03/22/18 06:30 INR, PTT INR 1.18 (0.83-1.09) H 02/28/18 20:06 Problem List - Problems (1) Volvulus Assessment/Plan: R> surgical follow up d/c rectal tube in am KUB in am Dr macias to cover patient in am Code(s): K56.2 - VOLVULUS
[2018-03-23] MEDS: ATORVASTATIN CA 40 MG TABLET (FP) PO SCH (21:35)
[2018-03-23] MEDS: INSULIN (LEVEMIR) 100 UNITS/ML UNITS SQ SCH (21:38)
--- NOTE | 2018-03-23 22:45 | PN ---
Progress Note, Physician Chief Complaint: volvulus History of Present Illness: 77yo male PMH HTN, HLD, CHF, CVA with residual right sided weakness, dysphagia, DM2, COPD presented with weakness and fever 103 from [place]. Remains weak, marginally responsive, on cardizem for Afib which is more rate controlled now. rectal tube was replaced because of recurrent colonic atony and distension. with the rectal tube removed today the patient is passing semiformed stool. - Current Medication List Current Medications: Active Medications Acetaminophen (Tylenol -) 650 mg PO Q6H PRN PRN Reason: FEVER Amino Acids (Prosource No Carb Liquid Pkt) 30 ml PO BID@0800,1730 [facility] Last Admin: 03/23/18 17:31 Dose: Not Given Apixaban (Eliquis -) 5 mg PO BID [facility] Last Admin: 03/23/18 21:35 Dose: 5 mg Atorvastatin Calcium (Lipitor -) 40 mg PO HS [facility] Last Admin: 03/23/18 21:35 Dose: 40 mg Potassium Chloride/Dextrose/Sod Cl (D5-1/2ns+20 Meq Kcl -) 20 meq in 1,000 mls @ 75 mls/hr IV ASDIR [facility] Last Admin: 03/23/18 14:00 Dose: 75 mls/hr Insulin Aspart (Novolog Vial Sliding Scale -) 1 vial SQ [facility]; Protocol Last Admin: 03/23/18 21:32 Dose: 4 units Insulin Detemir (Levemir Vial) 22 units SQ [facility] Last Admin: 03/23/18 21:38 Dose: 22 units Lisinopril (Prinivil) 40 mg PO DAILY [facility] Last Admin: 03/23/18 10:14 Dose: 40 mg Methyl Salicylate (Felix-Seaman -) 1 applic TP Q8H PRN PRN Reason: BODY ACHES Metoprolol Tartrate (Lopressor -) 50 mg PO BID [facility] Last Admin: 03/23/18 21:35 Dose: 50 mg Multi-Ingredient Ointment (Zinc Oxide) 1 applic TP BID [facility] Last Admin: 03/23/18 21:37 Dose: 1 applic Ranitidine HCl (Zantac -) 150 mg PO BID [facility] Last Admin: 03/23/18 21:37 Dose: 150 mg - Objective Vital Signs: Vital Signs Temperature 98 F 03/23/18 16:30 Pulse Rate 91 H 03/23/18 16:30 Respiratory Rate 18 03/23/18 16:30 Blood Pressure 151/83 03/23/18 16:30 O2 Sat by Pulse Oximetry (%) 98 03/23/18 09:00 Constitutional: Yes: No Distress, Calm, Cachectic, Obese Eyes: Yes: Conjunctiva Clear, EOM Intact HENT: Yes: Atraumatic, Normocephalic Neck: Yes: Supple, Trachea Midline Cardiovascular: Yes: Regular Rate and Rhythm, S1, S2 Respiratory: Yes: Regular, CTA Bilaterally Gastrointestinal: Yes: Normal Bowel Sounds, Soft, Abdomen, Obese, Distention. No: Tenderness, Tenderness, Epigastrium Musculoskeletal: No: Muscle Pain, Muscle Weakness Extremities: No: Cool, Cyanosis Integumentary: No: Jaundice, Pressure Ulcer, Rash Wound/Incision: Yes: Clean/Dry, Well Approximated Neurological: Yes: Alert, Oriented Psychiatric: Yes: Alert, Oriented Labs: CBC, BMP 03/22/18 06:30 03/22/18 06:30 INR, PTT INR 1.18 (0.83-1.09) H 02/28/18 20:06 Problem List - Problems (1) Volvulus of sigmoid colon Assessment/Plan: 77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 Would not reccomend surgical intervention. He remains a very poor candidate and is not nutritionally optimized. Would only consider intervention if the entire medical treatment team feels that there is no alternative for survival given his replapse and remit course of abdominal distension and functional obstruction. Family discussion for goals of care with hospital ethics committee Medical/ cardiology clearence for colostomy Tentative schedule case for Tuesday 03/27 will bowel prep monday 03/26 (standard nicolls prep) Code(s): K56.2 - VOLVULUS (2) Elevated troponin Code(s): R74.8 - ABNORMAL LEVELS OF OTHER SERUM ENZYMES (3) Hypoxemia Code(s): R09.02 - HYPOXEMIA (4) Pneumonia Code(s): J18.9 - PNEUMONIA, UNSPECIFIED ORGANISM (5) COPD (chronic obstructive pulmonary disease) Code(s): J44.9 - CHRONIC OBSTRUCTIVE PULMONARY DISEASE, UNSPECIFIED Qualifiers: Emphysema type: unspecified (6) Diabetes Code(s): E11.9 - TYPE 2 DIABETES MELLITUS WITHOUT COMPLICATIONS (7) Fecal retention Code(s): K59.00 - CONSTIPATION, UNSPECIFIED
[2018-03-24] MEDS: INSULIN SLIDING SCALE (NOVOLOG) 1 VIAL SQ SCH ×4 (06:08→22:23)
[2018-03-24] MEDS: AMINO ACIDS/PROTEIN HYDROLYS 30 ML LIQUID.PKT PO SCH ×2 (08:07→17:53)
[2018-03-24 08:21] LABS: BASO % 0.2 % (0-2.0); HEMATOCRIT 42.3 % (35.4-49); HEMOGLOBIN 14.4 GM/dL (11.7-16.9); LYMPH % 8.8 % (8-40); MCH 30.7 pg (25.7-33.7); MCHC 33.9 g/dl (32.0-35.9); MEAN CELL VOLUME 90.4 fl (80-96); MEAN PLT VOLUME 8.6 fl (7.5-11.1); MONO % 5.9 % (3.8-10.2); NEUT % 85.1 % (42.8-82.8); PLATELET COUNT 204 K/MM3 (134-434); RBC 4.68 M/mm3 (4.00-5.60); RDW 15.5 % (11.9-15.9); WHITE BLOOD COUNT 21.6 K/mm3 (4.0-10.0)
[2018-03-24 09:06] LABS: ALBUMIN 2.4 g/dl (3.4-5.0); ALK PHOS 89 U/L (45-117); ANION GAP 10 MMOL/L (8-16); BILIRUBIN,TOTAL 1.5 mg/dL (0.2-1); BLOOD UREA NITROGEN 13 mg/dL (7-18); CALCIUM 8.5 mg/dL (8.5-10.1); CHLORIDE 97 mmol/L (98-107); CO2 28 mmol/L (21-32); CREATININE 1.1 mg/dL (0.55-1.3); GLUCOSE,RANDOM 175 mg/dL (74-106); POTASSIUM 3.9 mmol/L (3.5-5.1); SGOT/AST 42 U/L (15-37); SGPT/ALT 37 U/L (13-61); SODIUM 134 mmol/L (136-145); TOT PROT 6.8 g/dl (6.4-8.2)
--- NOTE | 2018-03-24 10:28 | PN ---
Progress Note (short form) - Note Progress Note: PULMONARY Awake and responsive. No CP or SOB. Noted volvulus on abd xray Surg/GI note reviewed Active Medications noted Gen: Awake and alert, Heart: RRR Lung: scattered rhonchi Abd: soft, nontender Ext: edema LABS/MEDS/IMAGES REVIEWED A/P s/p Acute Hypoxic Respiratory Failure Pneumonia likely Aspiration clinically improved Sigmoid Volvulus s/p Rectal Tube Decompression Sepsis resolved LV Diastolic Dysfunction +Troponins likely Demand Ischemia Paroxysmal Atrial Fibrillation h/o CVA - PO as tolerated - completed antibiotics - O2 to keep SpO2 >90% - aspiration precautions - rate control - continue anticoagulation - DVT prophylaxis Britton GILES MD
--- NOTE | 2018-03-24 10:44 | PN ---
Progress Note (short form) - Note Progress Note: pt seen/ examined chart reviewed all f/u noted comfortable surgery planned for next week low grade fever Increase wbc-- non toxic appearance . Vital Signs Temp 99.3 F 03/24/18 06:00 Pulse 55 L 03/24/18 06:00 Resp 20 03/24/18 06:00 BP 153/74 03/24/18 06:00 Pulse Ox 98 03/23/18 21:00 Intake & Output 03/23/18 03/23/18 03/24/18 11:59 23:59 11:59 Intake Total 700 Balance 700 Weight 211 lb 11.2 oz Intake: IV 700 D5-1/2NS+20 MEQ KCL - 20 700 meq In 1,000 ml @ 75 mls/ hr IV ASDIR [facility] Rx#: [id number] Other: Voiding Method Incontinent Incontinent Incontinent # Unmeasured Voids Void 1 1 Bowel Movement No Weight Measurement [facility] Active Medications Acetaminophen (Tylenol -) 650 mg PO Q6H PRN PRN Reason: FEVER Amino Acids (Prosource No Carb Liquid Pkt) 30 ml PO BID@0800,1730 [facility] Last Admin: 03/24/18 08:07 Dose: Not Given Apixaban (Eliquis -) 5 mg PO BID [facility] Last Admin: 03/23/18 21:35 Dose: 5 mg Atorvastatin Calcium (Lipitor -) 40 mg PO HS [facility] Last Admin: 03/23/18 21:35 Dose: 40 mg Potassium Chloride/Dextrose/Sod Cl (D5-1/2ns+20 Meq Kcl -) 20 meq in 1,000 mls @ 75 mls/hr IV ASDIR [facility] Last Admin: 03/23/18 14:00 Dose: 75 mls/hr Insulin Aspart (Novolog Vial Sliding Scale -) [address] [facility]; Protocol Last Admin: 03/24/18 06:08 Dose: 4 units Insulin Detemir (Levemir Vial) 22 units SQ HS [facility] Last Admin: 03/23/18 21:38 Dose: 22 units Lisinopril (Prinivil) 40 mg PO DAILY [facility] Last Admin: 03/23/18 10:14 Dose: 40 mg Methyl Salicylate (Felix-Seaman -) 1 applic TP Q8H PRN PRN Reason: BODY ACHES Metoprolol Tartrate (Lopressor -) 50 mg PO BID [facility] Last Admin: 03/23/18 21:35 Dose: 50 mg Multi-Ingredient Ointment (Zinc Oxide) 1 applic TP BID [facility] Last Admin: 03/23/18 21:37 Dose: 1 applic Ranitidine HCl (Zantac -) 150 mg PO BID [facility] Last Admin: 03/23/18 21:37 Dose: 150 mg CBC, BMP 03/24/18 07:10 03/24/18 07:10 Physical Exam awake/ no distress S1 S2 irregular Lungs decreased, ronchi ABd- soft, NT, BS+distended No edema Sepsis, pneumonia,volvulus, pneumonia RLL -- repeat cbc blood cultures continue other meds will discuss with gi/ surgery will follow Problem List - Problems (1) Demand ischemia Code(s): I24.8 - OTHER FORMS OF ACUTE ISCHEMIC HEART DISEASE (2) Elevated troponin Code(s): R74.8 - ABNORMAL LEVELS OF OTHER SERUM ENZYMES (3) Hypokalemia Code(s): E87.6 - HYPOKALEMIA (4) Pneumonia Code(s): J18.9 - PNEUMONIA, UNSPECIFIED ORGANISM (5) Rapid atrial fibrillation Code(s): I48.91 - UNSPECIFIED ATRIAL FIBRILLATION (6) Volvulus of descending colon Code(s): K56.2 - VOLVULUS (7) Diabetes Code(s): E11.9 - TYPE 2 DIABETES MELLITUS WITHOUT COMPLICATIONS (8) Fecal retention Code(s): K59.00 - CONSTIPATION, UNSPECIFIED (9) H/O: CVA (cerebrovascular accident) Code(s): Z86.73 - PRSNL HX OF TIA (TIA), AND CEREB INFRC W/O RESID DEFICITS
[2018-03-24 11:28] LABS: ANISOCYTOSIS 0; MACROCYTOSIS 0; PLATELET ESTIMATE NORMAL
[2018-03-24] MEDS: APIXABAN 5 MG TABLET PO SCH ×2 (11:59→22:16)
[2018-03-24] MEDS: LISINOPRIL 20 MG TABLET (FP) PO SCH (11:59)
[2018-03-24] MEDS: METOPROLOL TARTRATE 50 MG TABLET (FP) PO SCH ×2 (11:59→22:16)
[2018-03-24] MEDS: RANITIDINE HCL 150 MG TABLET (FP) PO SCH ×2 (11:59→22:16)
[2018-03-24] MEDS: ZINC OXIDE 20% TOPICAL OINTMENT 30 GM TUBE TP SCH ×2 (11:59→22:31)
[2018-03-24 13:28] LABS: BASO % 0.2 % (0-2.0); EOS % 0.1 % (0-4.5); HEMATOCRIT 41.5 % (35.4-49); HEMOGLOBIN 14.6 GM/dL (11.7-16.9); LYMPH % 10.7 % (8-40); MCH 31.8 pg (25.7-33.7); MCHC 35.3 g/dl (32.0-35.9); MEAN CELL VOLUME 90.2 fl (80-96); MEAN PLT VOLUME 8.9 fl (7.5-11.1); MONO % 6.5 % (3.8-10.2); NEUT % 82.5 % (42.8-82.8); PLATELET COUNT 209 K/MM3 (134-434); RDW 15.5 % (11.9-15.9); WHITE BLOOD COUNT 21.9 K/mm3 (4.0-10.0)
--- NOTE | 2018-03-24 13:34 | PN ---
Progress Note, Physician History of Present Illness: Recurrent voluvus and emesis requiring rectal tube re-insertion since d/baldev, remains in NSR. - Current Medication List Current Medications: Active Medications Acetaminophen (Tylenol -) 650 mg PO Q6H PRN PRN Reason: FEVER Amino Acids (Prosource No Carb Liquid Pkt) 30 ml PO BID@0800,1730 [facility] Last Admin: 03/24/18 08:07 Dose: Not Given Apixaban (Eliquis -) 5 mg PO BID [facility] Last Admin: 03/24/18 11:59 Dose: 5 mg Atorvastatin Calcium (Lipitor -) 40 mg PO HS [facility] Last Admin: 03/23/18 21:35 Dose: 40 mg Potassium Chloride/Dextrose/Sod Cl (D5-1/2ns+20 Meq Kcl -) 20 meq in 1,000 mls @ 75 mls/hr IV ASDIR [facility] Last Admin: 03/23/18 14:00 Dose: 75 mls/hr Insulin Aspart (Novolog Vial Sliding Scale -) 1 vial SQ [facility]; Protocol Last Admin: 03/24/18 12:26 Dose: 2 units Insulin Detemir (Levemir Vial) 22 units SQ [facility] Last Admin: 03/23/18 21:38 Dose: 22 units Lisinopril (Prinivil) 40 mg PO DAILY [facility] Last Admin: 03/24/18 11:59 Dose: 40 mg Methyl Salicylate (Felix-Seaman -) 1 applic TP Q8H PRN PRN Reason: BODY ACHES Metoprolol Tartrate (Lopressor -) 50 mg PO BID [facility] Last Admin: 03/24/18 11:59 Dose: 50 mg Multi-Ingredient Ointment (Zinc Oxide) 1 applic TP BID [facility] Last Admin: 03/24/18 11:59 Dose: 1 applic Ranitidine HCl (Zantac -) 150 mg PO BID [facility] Last Admin: 03/24/18 11:59 Dose: 150 mg - Objective Vital Signs: Vital Signs Temperature 99.5 F 03/24/18 10:00 Pulse Rate 86 03/24/18 10:00 Respiratory Rate 22 H 03/24/18 10:00 Blood Pressure 165/72 03/24/18 10:00 O2 Sat by Pulse Oximetry (%) 98 03/23/18 21:00 Constitutional: Yes: No Distress, Calm Neck: Yes: Supple Cardiovascular: Yes: Regular Rate and Rhythm Respiratory: Yes: Regular, Diminished Gastrointestinal: Yes: Soft, Hypoactive Bowel Sounds Edema: No Labs: CBC, BMP 03/24/18 12:42 03/24/18 07:10 INR, PTT INR 1.18 (0.83-1.09) H 02/28/18 20:06 - ....Imaging X-ray: Report Reviewed (Recurrent volvulus) Problem List - Problems (1) Elevated troponin Code(s): R74.8 - ABNORMAL LEVELS OF OTHER SERUM ENZYMES (2) Rapid atrial fibrillation Code(s): I48.91 - UNSPECIFIED ATRIAL FIBRILLATION (3) Diastolic dysfunction Code(s): I51.9 - HEART DISEASE, UNSPECIFIED (4) H/O: CVA (cerebrovascular accident) Code(s): Z86.73 - PRSNL HX OF TIA (TIA), AND CEREB INFRC W/O RESID DEFICITS (5) Hyperlipidemia Code(s): E78.5 - HYPERLIPIDEMIA, UNSPECIFIED Qualifiers: Hyperlipidemia type: pure hypercholesterolemia Qualified Code(s): E78.00 - Pure hypercholesterolemia, unspecified; E78.0 - Pure hypercholesterolemia (6) Hypertension Code(s): I10 - ESSENTIAL (PRIMARY) HYPERTENSION Qualifiers: Hypertension type: essential hypertension Qualified Code(s): I10 - Essential (primary) hypertension (7) Pneumonia Code(s): J18.9 - PNEUMONIA, UNSPECIFIED ORGANISM Qualifiers: Pneumonia type: due to unspecified organism Laterality: right Lung location: lower lobe of lung Qualified Code(s): J18.1 - Lobar pneumonia, unspecified organism (8) Toxic metabolic encephalopathy Code(s): G92 - TOXIC ENCEPHALOPATHY (9) Demand ischemia Code(s): I24.8 - OTHER FORMS OF ACUTE ISCHEMIC HEART DISEASE (10) Premature ventricular contraction Code(s): I49.3 - VENTRICULAR PREMATURE DEPOLARIZATION (11) Volvulus of descending colon Code(s): K56.2 - VOLVULUS (12) Pre-operative cardiovascular examination Code(s): Z01.810 - ENCOUNTER FOR PREPROCEDURAL CARDIOVASCULAR EXAMINATION (13) Chronic anticoagulation Code(s): Z79.01 - [facility]FP (CURRENT) USE OF ANTICOAGULANTS Assessment/Plan 12/20/2017 Echo: Normal LV size and fxn, tr MR, TR 1. s/p Acute Hypoxic Respiratory Failure and right lower lobe aspiration pneumonia, resolved 2. Intermittent sigmoid volvulus post rectal tube decompression 3. 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 Diastolic LV dysfunction with clinical class 0-I NYHA classification LV failure, compensated/euvolemic 5. Paroxysmal atrial fibrillation [id number] score 7 on DOAC's/Eliquis 6. Toxic-metabolic encephelopathy 7. History of CVA with residual right-sided weakness PLAN: 1. Continue Lopressor 50 bid increase dose as needed and as tolerated 2. Continue Lisinopril 40 qd 3. Continue Lipitor 40 qhs 4. Hold Eliquis 5 bid pre-op 2 days prior to surgery and resume once post-op hemostasis has been achieved 5. Completed abx course, d/c planning 6. F/u AXR, plan for earlier sigmoid colectomy due to colonic atony and recurrent volvulus, no CV-contraindications against proceeding
[2018-03-24 14:47] LABS: ANISOCYTOSIS 0; MACROCYTOSIS 0; PLATELET ESTIMATE NORMAL
--- NOTE | 2018-03-24 17:28 | PN ---
Progress Note (short form) - Note Progress Note: Ethics Dr. Sharif had written that goals of care are to be discussed at an ethics meeting. The goals of care can be discussed with a family meeting with the surgeon and the medical team. I do not see any record of disagreement among the family member that is documented. If the patient does not have medical decision making capacity then the appropriate surrogate such as a can make a decision for surgery if the surgeon and the medical team determine that the surgery is a medical necessity and the procedure's benefits outweigh the risks.
--- NOTE | 2018-03-24 20:32 | PN ---
GI Progress Note Subjective: GI Note ( covering Dr Alves): Rectal tube removed this AM after FUA revealed improvement. The patient's WBC has however risen to 24K. No fever. Dhiraj is unable to communicate clearly but nods affirmatively when I asked whether he has pain - Objective Vital Signs: Vital Signs Temperature 99.5 F 03/24/18 10:00 Pulse Rate 86 03/24/18 10:00 Respiratory Rate 22 H 03/24/18 10:00 Blood Pressure 165/72 03/24/18 10:00 O2 Sat by Pulse Oximetry (%) 98 03/24/18 09:00 Selected Entries 03/23/18 03/24/18 03/24/18 22:00 06:00 10:00 Temperature 98.2 F 99.3 F 99.5 F Laboratory Tests 03/20/18 03/22/18 03/24/18 11:30 06:30 12:42 WBC 5.8 5.9 21.9 H Constitutional: Calm Gastrointestinal Inspection: Yes: Distention, Hernia (small umbilical hernia) ...Auscultate: Yes: Hypoactive Bowel Sounds ...Percussion: Yes: Tympanitic, Other (loss of dullness over the liver) Labs: CBC, BMP 03/24/18 12:42 03/24/18 07:10 INR, PTT INR 1.18 (0.83-1.09) H 02/28/18 20:06 Problem List - Problems (1) Leucocytosis Assessment/Plan: Given the abrupt rise in WBC and loss of dullness over the liver perforation needs to be excluded. A stat CT will be obtained as FUA may not be adequate Code(s): D72.829 - ELEVATED WHITE BLOOD CELL COUNT, UNSPECIFIED (2) Abdominal pain Code(s): R10.9 - UNSPECIFIED ABDOMINAL PAIN (3) Distended abdomen Code(s): R14.0 - ABDOMINAL DISTENSION (GASEOUS) (4) Volvulus Code(s): K56.2 - VOLVULUS
[2018-03-24 22:03] LABS: BASO % 0.1 % (0-2.0); HEMATOCRIT 39.8 % (35.4-49); HEMOGLOBIN 14.2 GM/dL (11.7-16.9); LYMPH % 8.9 % (8-40); MCH 32.1 pg (25.7-33.7); MCHC 35.7 g/dl (32.0-35.9); MEAN CELL VOLUME 89.8 fl (80-96); MEAN PLT VOLUME 8.8 fl (7.5-11.1); MONO % 6.5 % (3.8-10.2); NEUT % 84.5 % (42.8-82.8); PLATELET COUNT 192 K/MM3 (134-434); RBC 4.43 M/mm3 (4.00-5.60); RDW 15.3 % (11.9-15.9); WHITE BLOOD COUNT 19.8 K/mm3 (4.0-10.0)
[2018-03-24] MEDS: ATORVASTATIN CA 40 MG TABLET (FP) PO SCH (22:16)
[2018-03-24] MEDS: INSULIN (LEVEMIR) 100 UNITS/ML UNITS SQ SCH (22:24)
[2018-03-24 22:31] LABS: INR 2.49 (0.83-1.09); PROTHROMBIN TIME (PATIENT) 29.6 SEC (9.7-13.0)
[2018-03-24] MEDS: D5-1/2NS+20 MEQ KCL - 20 MEQ/1,000 ML INFUS.BAG IV SCH (22:31)
[2018-03-24 22:49] LABS: ANION GAP 15 MMOL/L (8-16); BLOOD UREA NITROGEN 16 mg/dL (7-18); CALCIUM 8.5 mg/dL (8.5-10.1); CHLORIDE 97 mmol/L (98-107); CO2 24 mmol/L (21-32); CREATININE 1.1 mg/dL (0.55-1.3); GLUCOSE,RANDOM 255 mg/dL (74-106); POTASSIUM 3.8 mmol/L (3.5-5.1); SODIUM 136 mmol/L (136-145)
[2018-03-25] MEDS: INSULIN SLIDING SCALE (NOVOLOG) 1 VIAL SQ SCH ×4 (06:21→21:35)
[2018-03-25] MEDS: AMINO ACIDS/PROTEIN HYDROLYS 30 ML LIQUID.PKT PO SCH ×2 (08:00→17:16)
[2018-03-25 08:19] LABS: BASO % 0.2 % (0-2.0); HEMATOCRIT 40.4 % (35.4-49); HEMOGLOBIN 13.6 GM/dL (11.7-16.9); MCH 30.5 pg (25.7-33.7); MCHC 33.7 g/dl (32.0-35.9); MEAN CELL VOLUME 90.4 fl (80-96); MEAN PLT VOLUME 8.6 fl (7.5-11.1); MONO % 6.7 % (3.8-10.2); NEUT % 84.1 % (42.8-82.8); PLATELET COUNT 179 K/MM3 (134-434); RBC 4.47 M/mm3 (4.00-5.60); WHITE BLOOD COUNT 16.7 K/mm3 (4.0-10.0)
[2018-03-25 08:51] LABS: ALBUMIN 2.2 g/dl (3.4-5.0); ALK PHOS 106 U/L (45-117); ANION GAP 11 MMOL/L (8-16); BILIRUBIN,TOTAL 1.5 mg/dL (0.2-1); BLOOD UREA NITROGEN 14 mg/dL (7-18); CHLORIDE 99 mmol/L (98-107); CO2 26 mmol/L (21-32); GLUCOSE,RANDOM 268 mg/dL (74-106); SGOT/AST 26 U/L (15-37); SGPT/ALT 34 U/L (13-61); SODIUM 135 mmol/L (136-145); TOT PROT 6.3 g/dl (6.4-8.2)
[2018-03-25] MEDS ORDERED: PT OWN MED DRAWER 7, Y5N ONE (09:34)
[2018-03-25] MEDS: RANITIDINE HCL 150 MG TABLET (FP) PO SCH ×2 (09:38→21:35)
[2018-03-25] MEDS: APIXABAN 5 MG TABLET PO SCH (09:39)
[2018-03-25] MEDS: LISINOPRIL 20 MG TABLET (FP) PO SCH (09:39)
[2018-03-25] MEDS: METOPROLOL TARTRATE 50 MG TABLET (FP) PO SCH ×2 (09:39→21:35)
[2018-03-25] MEDS: ZINC OXIDE 20% TOPICAL OINTMENT 30 GM TUBE TP SCH ×2 (09:50→21:35)
--- NOTE | 2018-03-25 11:11 | PN ---
Progress Note (short form) - Note Progress Note: PULMONARY Awake and responsive. No CP or SOB. Noted volvulus on abd xray Surg/GI note reviewed Active Medications noted Gen: Awake and alert, Heart: RRR Lung: scattered rhonchi Abd: more distended with hypoactive bowel sounds Ext: edema LABS/MEDS/IMAGES REVIEWED A/P s/p Acute Hypoxic Respiratory Failure Pneumonia likely Aspiration clinically improved Sigmoid Volvulus s/p Rectal Tube Decompression Sepsis resolved LV Diastolic Dysfunction +Troponins likely Demand Ischemia Paroxysmal Atrial Fibrillation h/o CVA - completed antibiotics - O2 to keep SpO2 >90% - aspiration precautions - rate control - continue anticoagulation - DVT prophylaxis Britton GILES MD
[2018-03-25 11:25] LABS: ANISOCYTOSIS 1+; MACROCYTOSIS 1+; PLATELET ESTIMATE NORMAL
--- NOTE | 2018-03-25 11:37 | PN ---
Progress Note (short form) - Note Progress Note: CT scan reviewed, no free air seen, no obvious volvulus. Still with marked colonic distention. Abdominal exam: distended, soft, no rebound. Dullness to percussion present over liver. WBC elevated but less so than yesterday. Can consider a trial of neostigmine 2 mg IV to decompress colon, however, neostigmine should NOT be given as long as there is a question of either (1) peritonitis or (2) mechanical bowel obstruction (e.g. volvulus). Will NOT order it now as there is a concern for both issues.
--- NOTE | 2018-03-25 12:15 | PN ---
Progress Note, Physician Chief Complaint: Events noted Not in distress History of Present Illness: Patient was seen and examined. Awake. Chart was reviewed Denies chest pain, SOB or palpitations - Current Medication List Current Medications: Active Medications Acetaminophen (Tylenol -) 650 mg PO Q6H PRN PRN Reason: FEVER Amino Acids (Prosource No Carb Liquid Pkt) 30 ml PO BID@0800,1730 [facility] Last Admin: 03/25/18 08:00 Dose: 30 ml Apixaban (Eliquis -) 5 mg PO BID [facility] Last Admin: 03/25/18 09:39 Dose: 5 mg Atorvastatin Calcium (Lipitor -) 40 mg PO HS [facility] Last Admin: 03/24/18 22:16 Dose: 40 mg Erythromycin (Jamie-Tab -) 1,000 mg PO 0500,0600,1100 [facility] Stop: 03/26/18 11:01 Potassium Chloride/Dextrose/Sod Cl (D5-1/2ns+20 Meq Kcl -) 20 meq in 1,000 mls @ 75 mls/hr IV ASDIR [facility] Last Admin: 03/24/18 22:31 Dose: Not Given Insulin Aspart (Novolog Vial Sliding Scale -) 1 vial SQ [facility]; Protocol Last Admin: 03/25/18 11:51 Dose: 4 units Insulin Detemir (Levemir Vial) 22 units SQ [facility] Last Admin: 03/24/18 22:24 Dose: 22 units Lisinopril (Prinivil) 40 mg PO DAILY [facility] Last Admin: 03/25/18 09:39 Dose: 40 mg Methyl Salicylate (Felix-Seaman -) 1 applic TP Q8H PRN PRN Reason: BODY ACHES Metoprolol Tartrate (Lopressor -) 50 mg PO BID [facility] Last Admin: 03/25/18 09:39 Dose: 50 mg Multi-Ingredient Ointment (Zinc Oxide) 1 applic TP BID [facility] Last Admin: 03/25/18 09:50 Dose: 1 applic Neomycin Sulfate (Mycifradin -) 1,000 mg PO 0500,0600,1100 [facility] Stop: 03/26/18 11:01 Ranitidine HCl (Zantac -) 150 mg PO BID [facility] Last Admin: 03/25/18 09:38 Dose: 150 mg - Objective Vital Signs: Vital Signs Temperature 99.1 F 03/25/18 06:00 Pulse Rate 65 03/25/18 06:00 Respiratory Rate 20 03/25/18 06:00 Blood Pressure 150/85 03/25/18 06:00 O2 Sat by Pulse Oximetry (%) 98 03/24/18 21:00 HENT: Yes: Atraumatic Neck: Yes: Supple Cardiovascular: Yes: Regular Rate and Rhythm, S1, S2 Respiratory: Yes: CTA Bilaterally Gastrointestinal: Yes: Normal Bowel Sounds, Soft. No: Tenderness Edema: No Labs: CBC, BMP 03/25/18 07:30 03/25/18 07:30 INR, PTT INR 2.49 (0.83-1.09) H 03/24/18 21:10 Problem List - Problems (1) Demand ischemia Code(s): I24.8 - OTHER FORMS OF ACUTE ISCHEMIC HEART DISEASE (2) Pneumonia Code(s): J18.9 - PNEUMONIA, UNSPECIFIED ORGANISM (3) Premature ventricular contraction Code(s): I49.3 - VENTRICULAR PREMATURE DEPOLARIZATION (4) Rapid atrial fibrillation Code(s): I48.91 - UNSPECIFIED ATRIAL FIBRILLATION (5) Sepsis Code(s): A41.9 - SEPSIS, UNSPECIFIED ORGANISM Qualifiers: Sepsis type: sepsis due to unspecified organism Qualified Code(s): A41.9 - Sepsis, unspecified organism (6) Volvulus of sigmoid colon Code(s): K56.2 - VOLVULUS (7) COPD (chronic obstructive pulmonary disease) Code(s): J44.9 - CHRONIC OBSTRUCTIVE PULMONARY DISEASE, UNSPECIFIED Qualifiers: Emphysema type: unspecified (8) Diabetes Code(s): E11.9 - TYPE 2 DIABETES MELLITUS WITHOUT COMPLICATIONS (9) Diastolic dysfunction Code(s): I51.9 - HEART DISEASE, UNSPECIFIED (10) H/O: CVA (cerebrovascular accident) Code(s): Z86.73 - PRSNL HX OF TIA (TIA), AND CEREB INFRC W/O RESID DEFICITS (11) Hyperlipidemia Code(s): E78.5 - HYPERLIPIDEMIA, UNSPECIFIED Qualifiers: Hyperlipidemia type: pure hypercholesterolemia Qualified Code(s): E78.00 - Pure hypercholesterolemia, unspecified; E78.0 - Pure hypercholesterolemia (12) Hypertension Code(s): I10 - ESSENTIAL (PRIMARY) HYPERTENSION Qualifiers: Hypertension type: essential hypertension Qualified Code(s): I10 - Essential (primary) hypertension (13) Toxic metabolic encephalopathy Code(s): G92 - TOXIC ENCEPHALOPATHY Assessment/Plan 1. Acute Hypoxic Respiratory Failure and right lower lobe aspiration pneumonia 2. Intermittent sigmoid volvulus post rectal tube decompression 3. 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 Diastolic LV dysfunction with clinical class 0-I NYHA classification LV failure, compensated/euvolemic 5. Paroxysmal atrial fibrillation [id number] score 7 on DOAC/Eliquis 6. Toxic-metabolic encephelopathy 7. History of CVA with residual right-sided weakness PLAN: 1. Continue Lopressor 50 mg BID and uptitrate as needed 2. Continue Lisinopril 40 mg QD 3. Continue Lipitor 40 mg QHS 4. Surgery/GI input noted. Probable surgical intervention planned for Tuesday. Ethics input also noted. If he is scheduled for colectomy/colostomy, then hold Eliquis 2 days prior to surgery and resume once post-op (Eliquis may need to be stopped today). No absolute contraindication for surgery in view of absence of ischemic symptoms, decompensated congestive heart failure or malignant arrhythmias Further plans are to follow Rachid Richards MD
--- NOTE | 2018-03-25 12:15 | PN ---
Progress Note (short form) - Note Progress Note: asked to f/u for leukocytosis he has had increasing abdominal distention and blood cultures and ct scan of abd /pelvis were repeated alert notes abdominal discomfort Vital Signs Period Temp Pulse Resp BP Sys/Pham Pulse Ox Last 24 Hr 98.3 F-99.5 F 65-105 18-20 132-162/62-105 98 cor-rrr lungs scattered rhonchi abd firm, distended, soft ext trace edema CBC, BMP 03/25/18 07:30 03/25/18 07:30 blood cultures pending a/p leukocytosis improved from yesterday- would get cxray, has had cultures and ct scan no fevers abdominal distention/volvulus- persistent, GI and surgery f/u afib- improved on meds Problem List - Problems (1) Sepsis Code(s): A41.9 - SEPSIS, UNSPECIFIED ORGANISM Qualifiers: Sepsis type: sepsis due to unspecified organism Qualified Code(s): A41.9 - Sepsis, unspecified organism (2) Pneumonia Code(s): J18.9 - PNEUMONIA, UNSPECIFIED ORGANISM (3) Hypoxemia Code(s): R09.02 - HYPOXEMIA (4) COPD exacerbation Code(s): J44.1 - CHRONIC OBSTRUCTIVE PULMONARY DISEASE W (ACUTE) EXACERBATION (5) Rapid atrial fibrillation Code(s): I48.91 - UNSPECIFIED ATRIAL FIBRILLATION (6) Elevated troponin Code(s): R74.8 - ABNORMAL LEVELS OF OTHER SERUM ENZYMES (7) Prolonged Q-T interval on ECG Code(s): R94.31 - ABNORMAL ELECTROCARDIOGRAM [ECG] [EKG]
--- NOTE | 2018-03-25 13:06 | PN ---
Progress Note (short form) - Note Progress Note: pt seen/ examined events noted discussed in detail with i/d, gi today ct scan films reviewed with Dr. Lugo. awake. no distress Vital Signs Temp 99.1 F 03/25/18 06:00 Pulse 65 03/25/18 06:00 Resp 20 03/25/18 06:00 BP 150/85 03/25/18 06:00 Pulse Ox 98 03/24/18 21:00 Intake & Output 03/24/18 03/25/18 03/25/18 23:59 11:59 23:59 Intake Total 825 1230 Balance 825 1230 Weight 211 lb 1.6 oz Intake: IV 825 750 D5-1/2NS+20 MEQ KCL - 20 825 750 meq In 1,000 ml @ 75 mls/ hr IV ASDIR [facility] Rx#: [id number] Oral 480 Other: Voiding Method Incontinent Incontinent # Unmeasured Voids Void 1 1 Weight Measurement Method [facility] Active Medications Acetaminophen (Tylenol -) 650 mg PO Q6H PRN PRN Reason: FEVER Amino Acids (Prosource No Carb Liquid Pkt) 30 ml PO BID@0800,1730 [facility] Last Admin: 03/25/18 08:00 Dose: 30 ml Apixaban (Eliquis -) 5 mg PO BID [facility] Last Admin: 03/25/18 09:39 Dose: 5 mg Atorvastatin Calcium (Lipitor -) 40 mg PO HS [facility] Last Admin: 03/24/18 22:16 Dose: 40 mg Erythromycin (Jamie-Tab -) 1,000 mg PO 0500,0600,1100 [facility] Stop: 03/26/18 11:01 Potassium Chloride/Dextrose/Sod Cl (D5-1/2ns+20 Meq Kcl -) 20 meq in 1,000 mls @ 75 mls/hr IV ASDIR [facility] Last Admin: 03/24/18 22:31 Dose: Not Given Insulin Aspart (Novolog Vial Sliding Scale -) 1 vial SQ [facility]; Protocol Last Admin: 03/25/18 11:51 Dose: 4 units Insulin Detemir (Levemir Vial) 22 units SQ [facility] Last Admin: 03/24/18 22:24 Dose: 22 units Lisinopril (Prinivil) 40 mg PO DAILY [facility] Last Admin: 03/25/18 09:39 Dose: 40 mg Methyl Salicylate (Felix-Seaman -) 1 applic TP Q8H PRN PRN Reason: BODY ACHES Metoprolol Tartrate (Lopressor -) 50 mg PO BID [facility] Last Admin: 03/25/18 09:39 Dose: 50 mg Multi-Ingredient Ointment (Zinc Oxide) 1 applic TP BID [facility] Last Admin: 03/25/18 09:50 Dose: 1 applic Neomycin Sulfate (Mycifradin -) 1,000 mg PO 0500,0600,1100 [facility] Stop: 03/26/18 11:01 Ranitidine HCl (Zantac -) 150 mg PO BID [facility] Last Admin: 03/25/18 09:38 Dose: 150 mg CBC, BMP 03/25/18 07:30 03/25/18 07:30 Physical Exam awake/ no distress S1 S2 irregular Lungs decreased, ronchi ABd- firm/ distended No edema Sepsis, pneumonia,volvulus, pneumonia RLL -- will discuss with gi/ surgery/ id today surgery planned on tuesday- colostomy for now hold ector will follow Problem List - Problems (1) Demand ischemia Code(s): I24.8 - OTHER FORMS OF ACUTE ISCHEMIC HEART DISEASE (2) Elevated troponin Code(s): R74.8 - ABNORMAL LEVELS OF OTHER SERUM ENZYMES (3) Hypokalemia Code(s): E87.6 - HYPOKALEMIA (4) Pneumonia Code(s): J18.9 - PNEUMONIA, UNSPECIFIED ORGANISM (5) Rapid atrial fibrillation Code(s): I48.91 - UNSPECIFIED ATRIAL FIBRILLATION (6) Volvulus of descending colon Code(s): K56.2 - VOLVULUS (7) Diabetes Code(s): E11.9 - TYPE 2 DIABETES MELLITUS WITHOUT COMPLICATIONS (8) Fecal retention Code(s): K59.00 - CONSTIPATION, UNSPECIFIED (9) H/O: CVA (cerebrovascular accident) Code(s): Z86.73 - PRSNL HX OF TIA (TIA), AND CEREB INFRC W/O RESID DEFICITS
[2018-03-25] MEDS: D5-1/2NS+20 MEQ KCL - 20 MEQ/1,000 ML INFUS.BAG IV SCH ×2 (17:26→20:33)
--- NOTE | 2018-03-25 20:42 | PN ---
Progress Note, Physician Chief Complaint: volvulus History of Present Illness: 77yo male PMH HTN, HLD, CHF, CVA with residual right sided weakness, dysphagia, DM2, COPD presented with weakness and fever 103 from [place]. Remains weak, marginally responsive, on cardizem for Afib which is more rate controlled now. rectal tube was replaced because of recurrent colonic atony and distension. with the rectal tube removed today the patient is passing semiformed stool. - Current Medication List Current Medications: Active Medications Acetaminophen (Tylenol -) 650 mg PO Q6H PRN PRN Reason: FEVER Amino Acids (Prosource No Carb Liquid Pkt) 30 ml PO BID@0800,1730 [facility] Last Admin: 03/25/18 17:16 Dose: 30 ml Atorvastatin Calcium (Lipitor -) 40 mg PO HS [facility] Last Admin: 03/24/18 22:16 Dose: 40 mg Erythromycin (Jamie-Tab -) 1,000 mg PO 0500,0600,1100 [facility] Stop: 03/26/18 11:01 Potassium Chloride/Dextrose/Sod Cl (D5-1/2ns+20 Meq Kcl -) 20 meq in 1,000 mls @ 75 mls/hr IV ASDIR [facility] Last Admin: 03/25/18 20:33 Dose: 75 mls/hr Insulin Aspart (Novolog Vial Sliding Scale -) 1 vial SQ [facility]; Protocol Last Admin: 03/25/18 17:25 Dose: 4 units Insulin Detemir (Levemir Vial) 22 units SQ [facility] Last Admin: 03/24/18 22:24 Dose: 22 units Lisinopril (Prinivil) 40 mg PO DAILY [facility] Last Admin: 03/25/18 09:39 Dose: 40 mg Methyl Salicylate (Felix-Seaman -) 1 applic TP Q8H PRN PRN Reason: BODY ACHES Metoprolol Tartrate (Lopressor -) 50 mg PO BID [facility] Last Admin: 03/25/18 09:39 Dose: 50 mg Multi-Ingredient Ointment (Zinc Oxide) 1 applic TP BID [facility] Last Admin: 03/25/18 09:50 Dose: 1 applic Neomycin Sulfate (Mycifradin -) 1,000 mg PO 0500,0600,1100 [facility] Stop: 03/26/18 11:01 Ranitidine HCl (Zantac -) 150 mg PO BID [facility] Last Admin: 03/25/18 09:38 Dose: 150 mg - Objective Vital Signs: Vital Signs Temperature 99.1 F 03/25/18 16:30 Pulse Rate 105 H 03/25/18 16:30 Respiratory Rate 18 03/25/18 16:30 Blood Pressure 146/90 03/25/18 16:30 O2 Sat by Pulse Oximetry (%) 98 03/25/18 09:00 Constitutional: Yes: Well Nourished, No Distress, Calm, Obese Eyes: Yes: Conjunctiva Clear, EOM Intact HENT: Yes: Atraumatic, Normocephalic Neck: Yes: Supple, Trachea Midline Cardiovascular: Yes: Regular Rate and Rhythm, S1, S2 Respiratory: Yes: Regular, CTA Bilaterally Gastrointestinal: Yes: Normal Bowel Sounds, Soft, Abdomen, Obese. No: Tenderness, Tenderness, Epigastrium ...Rectal Exam: Yes: Deferred Genitourinary: No: CVA Tenderness - Left, CVA Tenderness - Right Musculoskeletal: No: Muscle Pain, Muscle Weakness Extremities: No: Cool, Cyanosis Edema: No Peripheral Pulses WNL: Yes Peripheral Pulses: Left Radial: 2+, Right Radial: 2+, Left Doralis Pedis: 2+, Right Dorsalis Pedis: 2+, Left Femoral: 2+, Right Femoral: 2+ Integumentary: No: Jaundice, Rash, Tattoos Neurological: Yes: Alert, Oriented Psychiatric: Yes: Alert, Oriented Labs: CBC, BMP 03/25/18 07:30 03/25/18 07:30 INR, PTT INR 2.49 (0.83-1.09) H 03/24/18 21:10 Problem List - Problems (1) Volvulus of sigmoid colon Assessment/Plan: 77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 He remains a poor candidate and is not nutritionally optimized. Would only consider intervention if the entire medical treatment team feels that there is no alternative for survival given his relapse and remit course of abdominal distension and functional obstruction. Family discussion for goals of care with hospital ethics committee Medical/ cardiology clearence for colostomy will bowel prep monday 03/26 (standard nicolls prep) Plan for Kenji's procedure with ressection of sigmoid colon Discussed with patient risks, benefits and alternatives of aforementioned procedure, including but not limited to bleeding, infection, injury to adjacent structures, leak or injury, intraabdominal abscess, incisional hernia, need for further procedures, ; alternatives include antibiotics, delayed or no surgery - risks of this include failure of nonoperative therapy, perforation, sepsis, recurrence, . Patient desires to proceed with operation - will take to OR for above. Informed consent signed for same by and daughter. Code(s): K56.2 - VOLVULUS (2) Elevated troponin Code(s): R74.8 - ABNORMAL LEVELS OF OTHER SERUM ENZYMES (3) Hypoxemia Code(s): R09.02 - HYPOXEMIA (4) Pneumonia Code(s): J18.9 - PNEUMONIA, UNSPECIFIED ORGANISM (5) COPD (chronic obstructive pulmonary disease) Code(s): J44.9 - CHRONIC OBSTRUCTIVE PULMONARY DISEASE, UNSPECIFIED Qualifiers: Emphysema type: unspecified (6) Diabetes Code(s): E11.9 - TYPE 2 DIABETES MELLITUS WITHOUT COMPLICATIONS (7) Fecal retention Code(s): K59.00 - CONSTIPATION, UNSPECIFIED
[2018-03-25] MEDS: ATORVASTATIN CA 40 MG TABLET (FP) PO SCH (21:34)
[2018-03-25] MEDS: INSULIN (LEVEMIR) 100 UNITS/ML UNITS SQ SCH (21:36)
[2018-03-26] MEDS: NEOMYCIN SO4 500 MG TABLET PO SCH ×3 (05:10→12:08)
[2018-03-26] MEDS: ERYTHROMYCIN BASE 500 MG TABLET PO SCH ×3 (05:10→12:07)
[2018-03-26] MEDS ORDERED: PT OWN MED DRAWER 7, Y5N ONE ×2 (05:37→18:38)
[2018-03-26] MEDS: INSULIN SLIDING SCALE (NOVOLOG) 1 VIAL SQ SCH ×4 (06:30→22:06)
[2018-03-26] MEDS: METOPROLOL TARTRATE 50 MG TABLET (FP) PO SCH ×2 (09:25→21:05)
[2018-03-26] MEDS: ZINC OXIDE 20% TOPICAL OINTMENT 30 GM TUBE TP SCH ×2 (09:26→22:09)
[2018-03-26] MEDS: RANITIDINE HCL 150 MG TABLET (FP) PO SCH ×2 (09:26→21:05)
[2018-03-26] MEDS: LISINOPRIL 20 MG TABLET (FP) PO SCH (09:26)
[2018-03-26] MEDS: AMINO ACIDS/PROTEIN HYDROLYS 30 ML LIQUID.PKT PO SCH ×2 (09:26→16:58)
--- NOTE | 2018-03-26 11:29 | PN ---
Progress Note (short form) - Note Progress Note: alert/ awake comfortable all f/u noted/ appreciated Vital Signs Temp 98.7 F 03/26/18 06:00 Pulse 60 03/26/18 06:00 Resp 20 03/26/18 06:00 BP 121/64 03/26/18 06:00 Pulse Ox 98 03/25/18 22:00 Intake & Output 03/25/18 03/25/18 03/26/18 11:59 23:59 11:59 Intake Total 1230 1260 Balance 1230 1260 Weight 211 lb 1.6 oz 212 lb 4.8 oz Intake: IV 750 900 D5-1/2NS+20 MEQ KCL - 20 750 900 meq In 1,000 ml @ 75 mls/ hr IV ASDIR [facility] Rx#: [id number] Oral 480 360 Other: Voiding Method Incontinent Incontinent Incontinent # Unmeasured Voids Void 1 1 Bowel Movement No Weight Measurement Method Built in Bedscale Built in Bedscale Active Medications Acetaminophen (Tylenol -) 650 mg PO Q6H PRN PRN Reason: FEVER Amino Acids (Prosource No Carb Liquid Pkt) 30 ml PO BID@0800,1730 [facility] Last Admin: 03/26/18 09:26 Dose: 30 ml Atorvastatin Calcium (Lipitor -) 40 mg PO [facility] Last Admin: 03/25/18 21:34 Dose: 40 mg Potassium Chloride/Dextrose/Sod Cl (D5-1/2ns+20 Meq Kcl -) 20 meq in 1,000 mls @ 75 mls/hr IV ASDIR [facility] Last Admin: 03/25/18 20:33 Dose: 75 mls/hr Insulin Aspart (Novolog Vial Sliding Scale -) 1 vial SQ [facility]; Protocol Last Admin: 03/26/18 06:30 Dose: 4 units Insulin Detemir (Levemir Vial) 22 units SQ [facility] Last Admin: 03/25/18 21:36 Dose: 22 units Lisinopril (Prinivil) 40 mg PO DAILY [facility] Last Admin: 03/26/18 09:26 Dose: 40 mg Methyl Salicylate (Felix-Seaman -) 1 applic TP Q8H PRN PRN Reason: BODY ACHES Metoprolol Tartrate (Lopressor -) 50 mg PO BID [facility] Last Admin: 03/26/18 09:25 Dose: 50 mg Multi-Ingredient Ointment (Zinc Oxide) 1 applic TP BID [facility] Last Admin: 03/26/18 09:26 Dose: 1 applic Ranitidine HCl (Zantac -) 150 mg PO BID [facility] Last Admin: 03/26/18 09:26 Dose: 150 mg CBC, BMP 03/25/18 07:30 03/25/18 07:30 Microbiology 03/24/18 12:42 Blood Culture - Preliminary Blood - Peripheral Venous NO GROWTH OBTAINED AFTER 24 HOURS, INCUBATION TO CONTINUE FOR 4 DAYS. 03/24/18 12:42 Blood Culture - Preliminary Blood - Peripheral Venous NO GROWTH OBTAINED AFTER 24 HOURS, INCUBATION TO CONTINUE FOR 4 DAYS. Labs - ordered for today Physical Exam awake/ no distress S1 S2 irregular Lungs decreased, ronchi ABd- firm/ distended No edema Sepsis, pneumonia,volvulus, pneumonia RLL -- continue present care surgery planned on tuesday- colostomy for now hold eliquis will follow overall condition remains gaurded Problem List - Problems (1) Demand ischemia Code(s): I24.8 - OTHER FORMS OF ACUTE ISCHEMIC HEART DISEASE (2) Elevated troponin Code(s): R74.8 - ABNORMAL LEVELS OF OTHER SERUM ENZYMES (3) Hypokalemia Code(s): E87.6 - HYPOKALEMIA (4) Pneumonia Code(s): J18.9 - PNEUMONIA, UNSPECIFIED ORGANISM (5) Rapid atrial fibrillation Code(s): I48.91 - UNSPECIFIED ATRIAL FIBRILLATION (6) Volvulus of descending colon Code(s): K56.2 - VOLVULUS (7) Diabetes Code(s): E11.9 - TYPE 2 DIABETES MELLITUS WITHOUT COMPLICATIONS (8) Fecal retention Code(s): K59.00 - CONSTIPATION, UNSPECIFIED (9) H/O: CVA (cerebrovascular accident) Code(s): Z86.73 - PRSNL HX OF TIA (TIA), AND CEREB INFRC W/O RESID DEFICITS
[2018-03-26] MEDS: D5-1/2NS+20 MEQ KCL - 20 MEQ/1,000 ML INFUS.BAG IV SCH ×2 (11:51→17:03)
--- NOTE | 2018-03-26 12:25 | PN ---
Progress Note (short form) - Note Progress Note: lethargic NO BM since 03/22 diffuse rhonchi with moist cough Vital Signs Period Temp Pulse Resp BP Sys/Pham Pulse Ox Last 24 Hr 98.7 F-99.1 F 60-105 18-20 121-146/64-90 98 cor-rrr llungs diffuse rhonchi on exam abd soft, distended ext trace edema labs pending Microbiology 03/24/18 12:42 Blood - Peripheral Venous Blood Culture - Preliminary NO GROWTH OBTAINED AFTER 24 HOURS, INCUBATION TO CONTINUE FOR 4 DAYS. 03/24/18 12:42 Blood - Peripheral Venous Blood Culture - Preliminary NO GROWTH OBTAINED AFTER 24 HOURS, INCUBATION TO CONTINUE FOR 4 DAYS. 03/11/18 14:50 Blood - Peripheral Venous Blood Culture - Final NO GROWTH AFTER 5 DAYS INCUBATION 03/11/18 14:45 Blood - Peripheral Venous Blood Culture - Final NO GROWTH AFTER 5 DAYS INCUBATION 02/28/18 20:25 Blood - Peripheral Venous Blood Culture - Final NO GROWTH AFTER 5 DAYS INCUBATION 02/28/18 20:25 Blood - Peripheral Venous Blood Culture - Final NO GROWTH AFTER 5 DAYS INCUBATION 03/03/18 06:00 Stool Clostridium difficile Antigen (AMY) - Final 03/03/18 06:00 Stool Clostridium difficile Toxin Assay - Final 03/01/18 20:30 Nares - Mrsa Screen - Right MRSA Screen - Final NO MRSA ISOLATED 03/01/18 20:30 Nares - Mrsa Screen - Left MRSA Screen - Final NO MRSA ISOLATED 02/28/18 22:53 Urine - Urine Clean Catch Urine Culture - Final NO GROWTH OBTAINED 03/01/18 11:20 Urine For Antigen Detection Legionella Antigen - Final 03/01/18 11:20 Urine For Antigen Detection Streptococcus pneumoniae Antigen (M - Final 02/28/18 23:30 Nasopharyngeal Swab Influenza Types A,B Antigen - Final 02/28/18 23:30 Nasopharyngeal Swab - Final a/p leukocytosis suspect aspiration on clears- will d/c diet for now and observe, f/u labs today will resume zosyn no fevers abdominal distention/volvulus- persistent, GI and surgery f/u afib- improved on meds Problem List - Problems (1) Sepsis Code(s): A41.9 - SEPSIS, UNSPECIFIED ORGANISM Qualifiers: Sepsis type: sepsis due to unspecified organism Qualified Code(s): A41.9 - Sepsis, unspecified organism (2) Pneumonia Code(s): J18.9 - PNEUMONIA, UNSPECIFIED ORGANISM (3) Hypoxemia Code(s): R09.02 - HYPOXEMIA (4) COPD exacerbation Code(s): J44.1 - CHRONIC OBSTRUCTIVE PULMONARY DISEASE W (ACUTE) EXACERBATION (5) Rapid atrial fibrillation Code(s): I48.91 - UNSPECIFIED ATRIAL FIBRILLATION (6) Elevated troponin Code(s): R74.8 - ABNORMAL LEVELS OF OTHER SERUM ENZYMES (7) Prolonged Q-T interval on ECG Code(s): R94.31 - ABNORMAL ELECTROCARDIOGRAM [ECG] [EKG]
--- NOTE | 2018-03-26 12:28 | PN ---
Progress Note, Physician Chief Complaint: Events noted Not in distress Abdomen distended History of Present Illness: Patient was seen and examined. Awake. Chart was reviewed Denies chest pain, SOB or palpitations Await surgery in AM. Eliquis has been stopped - Current Medication List Current Medications: Active Medications Acetaminophen (Tylenol -) 650 mg PO Q6H PRN PRN Reason: FEVER Amino Acids (Prosource No Carb Liquid Pkt) 30 ml PO BID@0800,1730 [facility] Last Admin: 03/26/18 09:26 Dose: 30 ml Atorvastatin Calcium (Lipitor -) 40 mg PO HS [facility] Last Admin: 03/25/18 21:34 Dose: 40 mg Potassium Chloride/Dextrose/Sod Cl (D5-1/2ns+20 Meq Kcl -) 20 meq in 1,000 mls @ 75 mls/hr IV ASDIR [facility] Last Admin: 03/26/18 11:51 Dose: 75 mls/hr Insulin Aspart (Novolog Vial Sliding Scale -) 1 vial SQ [facility]; Protocol Last Admin: 03/26/18 06:30 Dose: 4 units Insulin Detemir (Levemir Vial) 22 units SQ [facility] Last Admin: 03/25/18 21:36 Dose: 22 units Lisinopril (Prinivil) 40 mg PO DAILY [facility] Last Admin: 03/26/18 09:26 Dose: 40 mg Methyl Salicylate (Felix-Seaman -) 1 applic TP Q8H PRN PRN Reason: BODY ACHES Metoprolol Tartrate (Lopressor -) 50 mg PO BID [facility] Last Admin: 03/26/18 09:25 Dose: 50 mg Multi-Ingredient Ointment (Zinc Oxide) 1 applic TP BID [facility] Last Admin: 03/26/18 09:26 Dose: 1 applic Ranitidine HCl (Zantac -) 150 mg PO BID [facility] Last Admin: 03/26/18 09:26 Dose: 150 mg - Objective Vital Signs: Vital Signs Temperature 98.7 F 03/26/18 06:00 Pulse Rate 60 03/26/18 06:00 Respiratory Rate 20 03/26/18 06:00 Blood Pressure 121/64 03/26/18 06:00 O2 Sat by Pulse Oximetry (%) 98 03/25/18 22:00 Eyes: Yes: PERRL HENT: Yes: Atraumatic Neck: Yes: Supple Cardiovascular: Yes: Regular Rate and Rhythm, S1, S2 Respiratory: Yes: CTA Bilaterally Gastrointestinal: Yes: Distention Edema: No Problem List - Problems (1) Demand ischemia Code(s): I24.8 - OTHER FORMS OF ACUTE ISCHEMIC HEART DISEASE (2) Pneumonia Code(s): J18.9 - PNEUMONIA, UNSPECIFIED ORGANISM (3) Premature ventricular contraction Code(s): I49.3 - VENTRICULAR PREMATURE DEPOLARIZATION (4) Rapid atrial fibrillation Code(s): I48.91 - UNSPECIFIED ATRIAL FIBRILLATION (5) Sepsis Code(s): A41.9 - SEPSIS, UNSPECIFIED ORGANISM Qualifiers: Qualified Code(s): A41.9 - Sepsis, unspecified organism (6) Volvulus of sigmoid colon Code(s): K56.2 - VOLVULUS (7) COPD (chronic obstructive pulmonary disease) Code(s): J44.9 - CHRONIC OBSTRUCTIVE PULMONARY DISEASE, UNSPECIFIED Qualifiers: Qualified Code(s): J43.9 - Emphysema, unspecified (8) Diabetes Code(s): E11.9 - TYPE 2 DIABETES MELLITUS WITHOUT COMPLICATIONS (9) Diastolic dysfunction Code(s): I51.9 - HEART DISEASE, UNSPECIFIED (10) H/O: CVA (cerebrovascular accident) Code(s): Z86.73 - PRSNL HX OF TIA (TIA), AND CEREB INFRC W/O RESID DEFICITS (11) Hyperlipidemia Code(s): E78.5 - HYPERLIPIDEMIA, UNSPECIFIED Qualifiers: Qualified Code(s): E78.00 - Pure hypercholesterolemia, unspecified; E78.0 - Pure hypercholesterolemia (12) Hypertension Code(s): I10 - ESSENTIAL (PRIMARY) HYPERTENSION Qualifiers: Qualified Code(s): I10 - Essential (primary) hypertension (13) Toxic metabolic encephalopathy Code(s): G92 - TOXIC ENCEPHALOPATHY Assessment/Plan 1. Acute Hypoxic Respiratory Failure and right lower lobe aspiration pneumonia 2. Intermittent sigmoid volvulus post rectal tube decompression 3. 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 Diastolic LV dysfunction with clinical class 0-I NYHA classification LV failure, compensated/euvolemic 5. Paroxysmal atrial fibrillation [id number] score 7 on DOAC/Eliquis 6. Toxic-metabolic encephelopathy 7. History of CVA with residual right-sided weakness PLAN: 1. Continue Lopressor 50 mg BID and uptitrate as needed 2. Continue Lisinopril 40 mg QD 3. Continue Lipitor 40 mg QHS 4. Surgical intervention planned for Tuesday. No absolute contraindication for surgery in view of absence of ischemic symptoms, decompensated congestive heart failure or malignant arrhythmias. Eliquis has been stopped (48 hours prior to surgery) and to be restarted after surgery when cleared Further plans are to follow Rachid Richards MD
[2018-03-26 12:32] LABS: BASO % 0.2 % (0-2.0); EOS % 0.1 % (0-4.5); HEMATOCRIT 38.4 % (35.4-49); HEMOGLOBIN 13.7 GM/dL (11.7-16.9); MCH 32.3 pg (25.7-33.7); MCHC 35.7 g/dl (32.0-35.9); MEAN CELL VOLUME 90.3 fl (80-96); MEAN PLT VOLUME 8.9 fl (7.5-11.1); MONO % 8.8 % (3.8-10.2); NEUT % 77.9 % (42.8-82.8); PLATELET COUNT 168 K/MM3 (134-434); RBC 4.26 M/mm3 (4.00-5.60); RDW 15.1 % (11.9-15.9); WHITE BLOOD COUNT 17.5 K/mm3 (4.0-10.0)
[2018-03-26 12:36] LABS: ALBUMIN 2.1 g/dl (3.4-5.0); ALK PHOS 115 U/L (45-117); ANION GAP 9 MMOL/L (8-16); BILIRUBIN,TOTAL 1.5 mg/dL (0.2-1); BLOOD UREA NITROGEN 11 mg/dL (7-18); CALCIUM 8.2 mg/dL (8.5-10.1); CHLORIDE 101 mmol/L (98-107); CO2 27 mmol/L (21-32); CREATININE 0.8 mg/dL (0.55-1.3); GLUCOSE,RANDOM 207 mg/dL (74-106); POTASSIUM 3.7 mmol/L (3.5-5.1); SGOT/AST 49 U/L (15-37); SGPT/ALT 43 U/L (13-61); SODIUM 136 mmol/L (136-145); TOT PROT 6.4 g/dl (6.4-8.2)
[2018-03-26 12:42] LABS: INR 1.64 (0.83-1.09); PROTHROMBIN TIME (PATIENT) 19.5 SEC (9.7-13.0)
--- NOTE | 2018-03-26 12:52 | PN ---
Progress Note (short form) - Note Progress Note: PULMONARY Awake and responsive. Noted volvulus on abd xray Surg/GI/ID note reviewed Active Medications noted Gen: Awake and alert, Heart: RRR Lung: scattered rhonchi bilateral Abd: more distended with hypoactive bowel sounds Ext: edema LABS/MEDS/IMAGES REVIEWED A/P s/p Acute Hypoxic Respiratory Failure Pneumonia likely Aspiration left base infiltrate Sigmoid Volvulus s/p Rectal Tube Decompression Sepsis resolved LV Diastolic Dysfunction +Troponins likely Demand Ischemia Paroxysmal Atrial Fibrillation h/o CVA - completed antibiotics - O2 to keep SpO2 >90% - aspiration precautions - rate control - continue anticoagulation - DVT prophylaxis Britton GILES MD
[2018-03-26 14:04] LABS: ACANTHOCYTES 0; ANISOCYTOSIS 0; HELMET CELLS 0; HOWELL-JOLLY BODIES 0; MACROCYTOSIS 0; OVALOCYTE 0; ROULEAU 0; SICKELED CELLS 0; TARGET CELLS 0; TEAR DROP CELLS 0; TOXIC GRANULATION 0
[2018-03-26 14:17] LABS: PLATELET ESTIMATE ADEQUATE
[2018-03-26] MEDS ORDERED: PEG3350/SOD SULF,BICARB,CL/KCL 4,000 ML SOLN.RECON PO ONE (14:30)
[2018-03-26] MEDS: PIPERACILLIN/TAZOB 3.375 GM 3.375 GM in DEXTROSE 5%-WATER - 50 ML IVPB SCH ×2 (14:59→17:40)
[2018-03-26] MEDS ORDERED: PIPERACILLIN/TAZOBACTAM 3.375 GM VIAL IVPB ONE ×2 (15:21→17:12)
[2018-03-26] MEDS ORDERED: DEXTROSE 5%-WATER - 50 ML IVPB ONE ×2 (15:21→17:12)
[2018-03-26] MEDS: ATORVASTATIN CA 40 MG TABLET (FP) PO SCH (21:04)
[2018-03-26] MEDS: INSULIN (LEVEMIR) 100 UNITS/ML UNITS SQ SCH (22:05)
[2018-03-27] MEDS: D5-1/2NS+20 MEQ KCL - 20 MEQ/1,000 ML INFUS.BAG IV SCH ×2 (00:20→18:30)
[2018-03-27] MEDS ORDERED: PIPERACILLIN/TAZOBACTAM 3.375 GM VIAL IVPB ONE ×3 (01:03→17:47)
[2018-03-27] MEDS ORDERED: DEXTROSE 5%-WATER - 50 ML IVPB ONE ×3 (01:04→17:47)
[2018-03-27] MEDS: PIPERACILLIN/TAZOB 3.375 GM 3.375 GM in DEXTROSE 5%-WATER - 50 ML IVPB SCH ×3 (01:30→19:20)
[2018-03-27] MEDS: INSULIN SLIDING SCALE (NOVOLOG) 1 VIAL SQ SCH ×3 (06:10→19:39)
[2018-03-27] MEDS: AMINO ACIDS/PROTEIN HYDROLYS 30 ML LIQUID.PKT PO SCH ×2 (08:23→19:20)
[2018-03-27] MEDS ORDERED: ALBUTEROL SO4 0.083% IH SOL 2.5 MG/3 ML VIAL.NEB. NEB PRN ×2 (10:23→16:47)
--- NOTE | 2018-03-27 10:23 | PN ---
Progress Note (short form) - Note Progress Note: PULMONARY Not answering questions today. For OR. Vital Signs Period Temp Pulse Resp BP Sys/Pham Pulse Ox Last 24 Hr 98.8 F-99.7 F 83-104 18-20 152-169/82-91 98 Gen: mildly tachypneic at rest Heart: RRR Lung: bilateral rhonchi Abd: softly distended, nontender Ext: no edema CBC, BMP 03/26/18 11:55 03/26/18 11:55 Active Medications Acetaminophen (Tylenol -) 650 mg PO Q6H PRN PRN Reason: FEVER Last Admin: 03/26/18 21:04 Dose: 650 mg Amino Acids (Prosource No Carb Liquid Pkt) 30 ml PO BID@0800,1730 [facility] Last Admin: 03/27/18 08:23 Dose: Not Given Atorvastatin Calcium (Lipitor -) 40 mg PO HS [facility] Last Admin: 03/26/18 21:04 Dose: 40 mg Potassium Chloride/Dextrose/Sod Cl (D5-1/2ns+20 Meq Kcl -) 20 meq in 1,000 mls @ 75 mls/hr IV ASDIR [facility] Last Admin: 03/27/18 00:20 Dose: 75 mls/hr Piperacillin Sod/Tazobactam (Sod 3.375 gm/ Dextrose) 50 mls @ 100 mls/hr IVPB Q8H-IV [facility]; Protocol Last Admin: 03/27/18 01:30 Dose: 100 mls/hr Insulin Aspart (Novolog Vial Sliding Scale -) [address] [facility]; Protocol Last Admin: 03/27/18 06:10 Dose: Not Given Insulin Detemir (Levemir Vial) 22 units SQ [facility] Last Admin: 03/26/18 22:05 Dose: 22 units Lisinopril (Prinivil) 40 mg PO DAILY [facility] Last Admin: 03/26/18 09:26 Dose: 40 mg Methyl Salicylate (Felix-Seaman -) 1 applic TP Q8H PRN PRN Reason: BODY ACHES Metoprolol Tartrate (Lopressor -) 50 mg PO BID [facility] Last Admin: 03/26/18 21:05 Dose: 50 mg Multi-Ingredient Ointment (Zinc Oxide) 1 applic TP BID [facility] Last Admin: 03/26/18 22:09 Dose: 1 applic Ranitidine HCl (Zantac -) 150 mg PO BID [facility] Last Admin: 03/26/18 21:05 Dose: 150 mg A/P s/p Acute Hypoxic Respiratory Failure Pneumonia likely Aspiration Sigmoid Volvulus s/p Rectal Tube Decompression Sepsis resolved LV Diastolic Dysfunction +Troponins likely Demand Ischemia Paroxysmal Atrial Fibrillation h/o CVA - continue antibiotics per ID - O2 to keep SpO2 >90% - inhaled bronchodilators - aspiration precautions - rate control - resume anticoagulation when ok with surgery - DVT prophylaxis
--- NOTE | 2018-03-27 10:24 | PN ---
Progress Note, Physician Chief Complaint: Events noted Abdomen remains distended NG in place History of Present Illness: Patient was seen and examined. Awake. Chart was reviewed Await surgery today as per Surgical service. Eliquis has been stopped since Tuesday - Current Medication List Current Medications: Active Medications Acetaminophen (Tylenol -) 650 mg PO Q6H PRN PRN Reason: FEVER Last Admin: 03/26/18 21:04 Dose: 650 mg Amino Acids (Prosource No Carb Liquid Pkt) 30 ml PO BID@0800,1730 [facility] Last Admin: 03/27/18 08:23 Dose: Not Given Atorvastatin Calcium (Lipitor -) 40 mg PO HS [facility] Last Admin: 03/26/18 21:04 Dose: 40 mg Potassium Chloride/Dextrose/Sod Cl (D5-1/2ns+20 Meq Kcl -) 20 meq in 1,000 mls @ 75 mls/hr IV ASDIR [facility] Last Admin: 03/27/18 00:20 Dose: 75 mls/hr Piperacillin Sod/Tazobactam (Sod 3.375 gm/ Dextrose) 50 mls @ 100 mls/hr IVPB Q8H-IV [facility]; Protocol Last Admin: 03/27/18 01:30 Dose: 100 mls/hr Insulin Aspart (Novolog Vial Sliding Scale -) 1 vial SQ [facility]; Protocol Last Admin: 03/27/18 06:10 Dose: Not Given Insulin Detemir (Levemir Vial) 22 units SQ [facility] Last Admin: 03/26/18 22:05 Dose: 22 units Lisinopril (Prinivil) 40 mg PO DAILY [facility] Last Admin: 03/26/18 09:26 Dose: 40 mg Methyl Salicylate (Felix-Seaman -) 1 applic TP Q8H PRN PRN Reason: BODY ACHES Metoprolol Tartrate (Lopressor -) 50 mg PO BID [facility] Last Admin: 03/26/18 21:05 Dose: 50 mg Multi-Ingredient Ointment (Zinc Oxide) 1 applic TP BID [facility] Last Admin: 03/26/18 22:09 Dose: 1 applic Ranitidine HCl (Zantac -) 150 mg PO BID [facility] Last Admin: 03/26/18 21:05 Dose: 150 mg - Objective Vital Signs: Vital Signs Temperature 99.7 F H 03/27/18 06:00 Pulse Rate 83 03/27/18 06:00 Respiratory Rate 18 12/03/18 06:00 Blood Pressure 156/82 03/27/18 06:00 O2 Sat by Pulse Oximetry (%) 98 03/26/18 21:00 Neck: Yes: Supple Cardiovascular: Yes: Regular Rate and Rhythm, S1, S2 Respiratory: Yes: CTA Bilaterally Gastrointestinal: Yes: Distention Edema: No Labs: CBC, BMP 03/26/18 11:55 03/26/18 11:55 INR, PTT INR 1.64 (0.83-1.09) H 03/26/18 11:55 Problem List - Problems (1) Demand ischemia Code(s): I24.8 - OTHER FORMS OF ACUTE ISCHEMIC HEART DISEASE (2) Pneumonia Code(s): J18.9 - PNEUMONIA, UNSPECIFIED ORGANISM (3) Premature ventricular contraction Code(s): I49.3 - VENTRICULAR PREMATURE DEPOLARIZATION (4) Rapid atrial fibrillation Code(s): I48.91 - UNSPECIFIED ATRIAL FIBRILLATION (5) Sepsis Code(s): A41.9 - SEPSIS, UNSPECIFIED ORGANISM Qualifiers: Qualified Code(s): A41.9 - Sepsis, unspecified organism (6) Volvulus of sigmoid colon Code(s): K56.2 - VOLVULUS (7) COPD (chronic obstructive pulmonary disease) Code(s): J44.9 - CHRONIC OBSTRUCTIVE PULMONARY DISEASE, UNSPECIFIED Qualifiers: Qualified Code(s): J43.9 - Emphysema, unspecified (8) Diabetes Code(s): E11.9 - TYPE 2 DIABETES MELLITUS WITHOUT COMPLICATIONS (9) Diastolic dysfunction Code(s): I51.9 - HEART DISEASE, UNSPECIFIED (10) H/O: CVA (cerebrovascular accident) Code(s): Z86.73 - PRSNL HX OF TIA (TIA), AND CEREB INFRC W/O RESID DEFICITS (11) Hyperlipidemia Code(s): E78.5 - HYPERLIPIDEMIA, UNSPECIFIED Qualifiers: Qualified Code(s): E78.00 - Pure hypercholesterolemia, unspecified; E78.0 - Pure hypercholesterolemia (12) Hypertension Code(s): I10 - ESSENTIAL (PRIMARY) HYPERTENSION Qualifiers: Qualified Code(s): I10 - Essential (primary) hypertension (13) Toxic metabolic encephalopathy Code(s): G92 - TOXIC ENCEPHALOPATHY Assessment/Plan 1. Acute Hypoxic Respiratory Failure and right lower lobe aspiration pneumonia 2. Intermittent sigmoid volvulus post rectal tube decompression 3. 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 Diastolic LV dysfunction with clinical class 0-I NYHA classification LV failure, compensated/euvolemic 5. Paroxysmal atrial fibrillation [id number] score 7 on DOAC/Eliquis 6. Toxic-metabolic encephelopathy 7. History of CVA with residual right-sided weakness PLAN: 1. Continue Lopressor 50 mg BID and uptitrate as needed 2. Continue Lisinopril 40 mg QD 3. Continue Lipitor 40 mg QHS 4. Surgical intervention planned today. No absolute contraindication for surgery in view of absence of ischemic symptoms, decompensated congestive heart failure or malignant arrhythmias but with understanding increase risk based on his cardiac history.. Eliquis has been stopped (48 hours prior to surgery) and to be restarted after surgery when cleared Further plans are to follow Rachid Richards MD
[2018-03-27] MEDS: LISINOPRIL 20 MG TABLET (FP) PO SCH (10:35)
[2018-03-27] MEDS: METOPROLOL TARTRATE 50 MG TABLET (FP) PO SCH ×2 (10:35→21:36)
[2018-03-27] MEDS: RANITIDINE HCL 150 MG TABLET (FP) PO SCH ×2 (10:35→21:37)
[2018-03-27] MEDS: ZINC OXIDE 20% TOPICAL OINTMENT 30 GM TUBE TP SCH ×2 (10:44→22:00)
[2018-03-27] MEDS: ALBUTEROL SO4 2.5/IPRATROPIUM 0.5 INH SOL 3 ML VIAL.NEB. NEB SCH ×3 (11:35→20:19)
--- NOTE | 2018-03-27 11:40 | PN ---
Progress Note (short form) - Note Progress Note: drowsy but arousable overall condition same for or today Vital Signs Temp 99.7 F H 03/27/18 06:00 Pulse 83 03/27/18 06:00 Resp 18 03/27/18 06:00 BP 156/82 03/27/18 06:00 Pulse Ox 98 03/26/18 21:00 Intake & Output 03/26/18 03/26/18 03/27/18 11:59 23:59 11:59 Intake Total 1410 3950 575 Balance 1410 3950 575 Weight 212 lb 4.8 oz 222 lb 6.4 oz Intake: IV 900 1300 525 D5-1/2NS+20 MEQ KCL - 20 900 1300 525 meq In 1,000 ml @ 75 mls/ hr IV ASDIR [facility] Rx#: [id number] IVPB 100 50 Oral 510 2550 Other: Voiding Method Incontinent Incontinent Incontinent # Unmeasured Voids Void 1 2 Bowel Movement No Weight Measurement Method Built in Bedscale Built in Bedscale Active Medications Acetaminophen (Tylenol -) 650 mg PO Q6H PRN PRN Reason: FEVER Last Admin: 03/26/18 21:04 Dose: 650 mg Albuterol Sulfate (Ventolin 0.083% Nebulizer Soln -) 1 amp NEB Q4H PRN PRN Reason: SHORT OF BREATH/WHEEZING Albuterol/Ipratropium (Duoneb -) 1 amp NEB RQID [facility] Last Admin: 03/27/18 11:35 Dose: 1 amp Amino Acids (Prosource No Carb Liquid Pkt) 30 ml PO BID@0800,1730 [facility] Last Admin: 03/27/18 08:23 Dose: Not Given Atorvastatin Calcium (Lipitor -) 40 mg PO HS [facility] Last Admin: 03/26/18 21:04 Dose: 40 mg Potassium Chloride/Dextrose/Sod Cl (D5-1/2ns+20 Meq Kcl -) 20 meq in 1,000 mls @ 75 mls/hr IV ASDIR [facility] Last Admin: 03/27/18 00:20 Dose: 75 mls/hr Piperacillin Sod/Tazobactam (Sod 3.375 gm/ Dextrose) 50 mls @ 100 mls/hr IVPB Q8H-IV [facility]; Protocol Last Admin: 03/27/18 10:36 Dose: 100 mls/hr Insulin Aspart (Novolog Vial Sliding Scale -) 1 vial SQ [facility]; Protocol Last Admin: 03/27/18 06:10 Dose: Not Given Insulin Detemir (Levemir Vial) 22 units SQ HS [facility] Last Admin: 03/26/18 22:05 Dose: 22 units Lisinopril (Prinivil) 40 mg PO DAILY [facility] Last Admin: 03/27/18 10:35 Dose: 40 mg Methyl Salicylate (Felix-Seaman -) 1 applic TP Q8H PRN PRN Reason: BODY ACHES Metoprolol Tartrate (Lopressor -) 50 mg PO BID [facility] Last Admin: 03/27/18 10:35 Dose: 50 mg Multi-Ingredient Ointment (Zinc Oxide) 1 applic TP BID [facility] Last Admin: 03/27/18 10:44 Dose: 1 applic Ranitidine HCl (Zantac -) 150 mg PO BID [facility] Last Admin: 03/27/18 10:35 Dose: 150 mg CBC, BMP 03/26/18 11:55 03/26/18 11:55 Microbiology 03/24/18 12:42 Blood Culture - Preliminary Blood - Peripheral Venous NO GROWTH OBTAINED AFTER 48 HOURS, INCUBATION TO CONTINUE FOR 3 DAYS. 03/24/18 12:42 Blood Culture - Preliminary Blood - Peripheral Venous NO GROWTH OBTAINED AFTER 48 HOURS, INCUBATION TO CONTINUE FOR 3 DAYS. Physical Exam drowsy/ arousable S1 S2 irregular Lungs decreased. ABd- firm/ distended No edema Sepsis, pneumonia,volvulus, pneumonia RLL -- continue present care surgery planned for today hold eliquis will follow overall condition remains gaurded discussed with Dr. Sharif also today Problem List - Problems (1) Demand ischemia Code(s): I24.8 - OTHER FORMS OF ACUTE ISCHEMIC HEART DISEASE (2) Elevated troponin Code(s): R74.8 - ABNORMAL LEVELS OF OTHER SERUM ENZYMES (3) Hypokalemia Code(s): E87.6 - HYPOKALEMIA (4) Pneumonia Code(s): J18.9 - PNEUMONIA, UNSPECIFIED ORGANISM (5) Rapid atrial fibrillation Code(s): I48.91 - UNSPECIFIED ATRIAL FIBRILLATION (6) Volvulus of descending colon Code(s): K56.2 - VOLVULUS (7) Diabetes Code(s): E11.9 - TYPE 2 DIABETES MELLITUS WITHOUT COMPLICATIONS (8) Fecal retention Code(s): K59.00 - CONSTIPATION, UNSPECIFIED (9) H/O: CVA (cerebrovascular accident) Code(s): Z86.73 - PRSNL HX OF TIA (TIA), AND CEREB INFRC W/O RESID DEFICITS
[2018-03-27] MEDS ORDERED: LIDOCAINE HCL/PF 2% SDV 5ML VIAL ONE (13:41)
[2018-03-27] MEDS ORDERED: ETOMIDATE 20 MG/10 ML AMPUL IVPUSH ONE ×2 (13:41→13:49)
[2018-03-27] MEDS ORDERED: fentaNYL CITRATE 250 MCG/5 ML VIAL ONE (13:42)
[2018-03-27] MEDS ORDERED: ROCURONIUM BROMIDE 50 MG/5 ML VIAL ONE ×2 (13:42→15:07)
[2018-03-27] MEDS ORDERED: BENZOIN TINCTURE SWABSTICK TP ONE (15:47)
[2018-03-27] MEDS ORDERED: MIDAZOLAM HCL 2 MG/2 ML SINGLE DOSE VIAL ONE (15:50)
[2018-03-27] MEDS ORDERED: FENTANYL INJECTION 500 MCG in DEXTROSE 5%-WATER - 90 ML IVPB SCH (16:15)
[2018-03-27] MEDS ORDERED: PROPOFOL 1,000,000 MCG/100 ML VIAL IVPB SCH (16:15)
--- NOTE | 2018-03-27 16:20 | OP ---
Operative Note - Note: Operative Date: 03/27/18 Pre-Operative Diagnosis: voluvulus and umbilical hernia Operation: Exploratory laparaotomy, sigmoid colectomy, end colostomy and primary umbilical hernia repair. Findings: massively dialated sigmoid colon , umbilical hernia, Post-Operative Diagnosis: Same as Pre-op Surgeon: Rad Sharif Linoleum Installer: Srinivasa Ding Anesthesiologist/SADDLE LINING STITCHER: Yolie Escobar Anesthesia: General, Local Specimens Removed: sigmoid colon (stitch dubois distal) Estimated Blood Loss (mls): 10 Drains, Volume Out (mls): 100 (alena urine) Fluid Volume Replaced (mls): 2,500 Operative Report Dictated: Yes
[2018-03-27] MEDS ORDERED: METHYL SALICYLATE/MENTHOL OINT 30 GM TUBE TP PRN (16:47)
[2018-03-27] MEDS ORDERED: ACETAMINOPHEN 325 MG TABLET (FP) PO PRN (16:47)
[2018-03-27 17:03] LABS: ARTERIAL BLD GAS O2 SATURATION 97.9 % (90-98.9); ARTERIAL BLOOD GAS BASE EXCESS 3.6 meq/l (-2-2); ARTERIAL BLOOD GAS PCO2 40.8 mmHg (35-45); ARTERIAL BLOOD GAS pH 7.44 (7.35-7.45)
[2018-03-27 17:04] LABS: ALLENS TEST POSITIVE
[2018-03-27 20:58] LABS: HEMATOCRIT 35.3 % (35.4-49); HEMOGLOBIN 12.4 GM/dL (11.7-16.9); MCH 32.1 pg (25.7-33.7); MCHC 35.1 g/dl (32.0-35.9); MEAN CELL VOLUME 91.6 fl (80-96); MEAN PLT VOLUME 8.4 fl (7.5-11.1); PLATELET COUNT 167 K/MM3 (134-434); RBC 3.85 M/mm3 (4.00-5.60); RDW 15.2 % (11.9-15.9); WHITE BLOOD COUNT 11.1 K/mm3 (4.0-10.0)
[2018-03-27 21:20] LABS: ANION GAP 9 MMOL/L (8-16); BLOOD UREA NITROGEN 8 mg/dL (7-18); CALCIUM 7.4 mg/dL (8.5-10.1); CHLORIDE 100 mmol/L (98-107); CO2 29 mmol/L (21-32); CREATININE 0.9 mg/dL (0.55-1.3); GLUCOSE,RANDOM 182 mg/dL (74-106); MAGNESIUM 1.7 mg/dL (1.8-2.4); PHOSPHOROUS 3.2 mg/dL (2.5-4.9); POTASSIUM 3.3 mmol/L (3.5-5.1); SODIUM 138 mmol/L (136-145)
[2018-03-27] MEDS ORDERED: MAGNESIUM SULF 50% (8.12 MEQ/2 ML-1 GM VIAL) IVPB ONE (21:24)
[2018-03-27] MEDS: ATORVASTATIN CA 40 MG TABLET (FP) PO SCH (21:36)
[2018-03-27] MEDS ORDERED: MUPIROCIN 2% TOPICAL OINTMENT FOR DECOLONIZATION NS SCH (22:00)
[2018-03-27] MEDS ORDERED: CHLORHEXIDINE GLUCONATE 4% CLEANSER FOR DECOLONIZATION TP SCH (22:00)
[2018-03-27] MEDS: KCL 10 MEQ IVPB 10 MEQ/100 ML INFUS.BAG IVPB SCH ×2 (22:00→23:00)
[2018-03-28] MEDS ORDERED: PIPERACILLIN/TAZOBACTAM 3.375 GM VIAL IVPB ONE ×3 (00:15→16:59)
[2018-03-28] MEDS ORDERED: DEXTROSE 5%-WATER - 50 ML IVPB ONE ×3 (00:16→17:00)
[2018-03-28] MEDS: KCL 10 MEQ IVPB 10 MEQ/100 ML INFUS.BAG IVPB SCH (00:17)
[2018-03-28] MEDS: INSULIN (LEVEMIR) 100 UNITS/ML UNITS SQ SCH ×2 (00:34→22:01)
[2018-03-28] MEDS: INSULIN SLIDING SCALE (NOVOLOG) 1 VIAL SQ SCH ×5 (00:34→22:01)
[2018-03-28] MEDS: D5-1/2NS+20 MEQ KCL - 20 MEQ/1,000 ML INFUS.BAG IV SCH ×2 (01:26→17:01)
[2018-03-28] MEDS: PIPERACILLIN/TAZOB 3.375 GM 3.375 GM in DEXTROSE 5%-WATER - 50 ML IVPB SCH ×3 (01:32→17:02)
[2018-03-28] MEDS: FENTANYL INJECTION 500 MCG in DEXTROSE 5%-WATER - 90 ML IVPB SCH ×2 (01:33)
[2018-03-28] MEDS: PROPOFOL 1,000,000 MCG/100 ML VIAL IVPB SCH ×2 (01:33→21:07)
[2018-03-28] MEDS: ACETAMINOPHEN 1000 MG/100 ML VIAL (NON FORMULARY) IVPB PRN ×2 (02:59→12:26)
[2018-03-28 06:17] LABS: BASO % 0.2 % (0-2.0); EOS % 0.4 % (0-4.5); HEMOGLOBIN 11.1 GM/dL (11.7-16.9); LYMPH % 13.8 % (8-40); MCH 30.6 pg (25.7-33.7); MCHC 33.7 g/dl (32.0-35.9); MEAN CELL VOLUME 90.8 fl (80-96); MEAN PLT VOLUME 8.6 fl (7.5-11.1); MONO % 8.3 % (3.8-10.2); NEUT % 77.3 % (42.8-82.8); PLATELET COUNT 162 K/MM3 (134-434); RBC 3.63 M/mm3 (4.00-5.60); WHITE BLOOD COUNT 11.9 K/mm3 (4.0-10.0)
[2018-03-28] MEDS: ALBUTEROL SO4 2.5/IPRATROPIUM 0.5 INH SOL 3 ML VIAL.NEB. NEB SCH ×4 (07:15→20:27)
[2018-03-28 07:19] LABS: ALBUMIN 1.6 g/dl (3.4-5.0); ALK PHOS 129 U/L (45-117); ANION GAP 9 MMOL/L (8-16); BILIRUBIN,TOTAL 1.4 mg/dL (0.2-1); BLOOD UREA NITROGEN 7 mg/dL (7-18); CALCIUM 7.4 mg/dL (8.5-10.1); CHLORIDE 99 mmol/L (98-107); CO2 29 mmol/L (21-32); CREATININE 0.9 mg/dL (0.55-1.3); GLUCOSE,RANDOM 229 mg/dL (74-106); POTASSIUM 3.6 mmol/L (3.5-5.1); SGOT/AST 59 U/L (15-37); SGPT/ALT 59 U/L (13-61); SODIUM 137 mmol/L (136-145); TOT PROT 5.3 g/dl (6.4-8.2)
--- NOTE | 2018-03-28 07:35 | CONSULT ---
Consultation: REQUESTING PROVIDER: CONSULT REQUEST: We have been asked to medically evaluate this patient for ICU admission sigmoid volvulus s/p sigmoid colectomy, colostomy, umbilical hernia repair, POD#1, post-op intubation. HISTORY OF PRESENT ILLNESS: 78M w/ pmhx of HTN, HLD, DM, COPD, diastolic CHF, ischemic CVA (with residual right-sided weakness), and chronic dysphagia (previously on trach) presents with sigmoid volvulus s/p sigmoid colectomy, end colostomy, umbilical hernia repair POD#1. Pt was initially admitted to the hospital for sepsis 2/2 pna after which he was subsequently found to have a sigmoid volvulus. He was assessed by GI, in which a rectal tube was placed for decompression and was admitted to the ICU. During his ICU admission, he improved and was sent back to the med-surg floor. Pt was reassessed by surg due to worsening recurrent volvulus and colonic atony. Per surg, pt is a poor surgical candidate however pt underwent surgery as primary team felt that there was no other alternative given pt's relapse of symptoms. Pt is currently s/p sigmoid colectomy, end colostomy, umbilical hernia repair, POD#1 admitted to the ICU who remains intubated post-op. REVIEW OF SYSTEMS: Unable to obtain. PHYSICAL EXAMINATION Vital Signs - 24 hr 03/27/18 03/27/18 03/27/18 09:00 09:30 12:00 Temperature 100.1 F H 100.3 F H Pulse Rate 90 86 Respiratory 18 18 18 Rate Blood Pressure 165/81 150/83 O2 Sat by Pulse 98 Oximetry (%) 03/27/18 03/27/18 03/27/18 16:10 16:25 16:40 Temperature 100.5 F H Pulse Rate 91 H 91 H 83 Respiratory 10 10 10 Rate Blood Pressure 143/88 154/83 158/66 O2 Sat by Pulse 100 100 100 Oximetry (%) 03/27/18 03/27/18 03/27/18 16:55 17:10 17:25 Temperature Pulse Rate 94 H 72 81 Respiratory 15 12 16 Rate Blood Pressure 143/84 138/70 147/68 O2 Sat by Pulse 100 100 100 Oximetry (%) 03/27/18 03/27/18 03/27/18 17:40 17:55 18:10 Temperature 100.6 F H Pulse Rate 81 81 79 Respiratory 15 11 14 Rate Blood Pressure 142/88 137/82 156/76 O2 Sat by Pulse 100 100 100 Oximetry (%) 03/27/18 03/27/18 03/27/18 18:36 20:00 21:00 Temperature Pulse Rate 76 Respiratory 15 15 16 Rate Blood Pressure 121/72 O2 Sat by Pulse 100 Oximetry (%) 03/27/18 03/27/18 03/27/18 21:19 22:00 23:38 Temperature Pulse Rate 86 Respiratory 16 14 14 Rate Blood Pressure 149/66 O2 Sat by Pulse 100 Oximetry (%) 03/28/18 03/28/18 03/28/18 00:00 02:00 02:15 Temperature 101.4 F H Pulse Rate 105 H 119 H Respiratory 14 14 15 Rate Blood Pressure 159/82 163/82 O2 Sat by Pulse Oximetry (%) 03/28/18 03/28/18 03/28/18 04:00 05:00 06:00 Temperature 100.2 F H 99.5 F Pulse Rate 104 H 112 H Respiratory 16 14 15 Rate Blood Pressure 136/61 134/64 O2 Sat by Pulse Oximetry (%) 03/28/18 07:01 Temperature Pulse Rate Respiratory 12 Rate Blood Pressure O2 Sat by Pulse Oximetry (%) GENERAL: Sedated. HEENT: AT/NC. Moist mucus membranes. NECK: Supple, no LAD/JVD. LUNGS: Intubated. CTA B/L. No wheezes noted. HEART: Irregularly irregular. No murmurs noted. ABDOMEN: Soft, NT/ND. Ostomy bag in place, no blood in bag noted. MUSCULOSKELETAL: Normal range of motion at all joints. No bony deformities or tenderness. No CVA tenderness. EXTREMITIES: No peripheral edema noted. NEUROLOGICAL: Unable to assess. SKIN: Warm, dry, normal turgor, no rashes or lesions noted. Laboratory Results - last 24 hr 03/27/18 03/27/18 03/27/18 11:56 12:43 16:45 WBC RBC Hgb Hct MCV MCH MCHC RDW Plt Count MPV Absolute Neuts (auto) Neutrophils % Lymphocytes % Monocytes % Eosinophils % Basophils % Nucleated RBC % Anticoagulation Therapy No Result Required. Puncture Site Right radial ABG pH 7.44 ABG pCO2 at Pt Temp 40.8 ABG pO2 at Pt Temp 120.0 H D ABG HCO3 27.5 H ABG O2 Sat (Measured) 97.9 ABG O2 Content 16.7 ABG Base Excess 3.6 H [place] Test Positive O2 Delivery Device No Result Required. Oxygen Flow Rate 50% Vent Mode No Result Required. Vent Rate No Result Required. Mechanical Rate No Result Required. Pressure Support Vent No Result Required. Sodium Potassium Chloride Carbon Dioxide Anion Gap BUN Creatinine Creat Clearance w eGFR POC Glucometer 155 159 Random Glucose Calcium Phosphorus Magnesium Total Bilirubin AST ALT Alkaline Phosphatase Total Protein Albumin Blood Type Antibody Screen 03/27/18 03/27/18 03/27/18 16:52 17:00 20:00 WBC 11.1 H RBC 3.85 L Hgb 12.4 Hct 35.3 L MCV 91.6 MCH 32.1 MCHC 35.1 RDW 15.2 Plt Count 167 MPV 8.4 Absolute Neuts (auto) Neutrophils % Lymphocytes % Monocytes % Eosinophils % Basophils % Nucleated RBC % Anticoagulation Therapy Puncture Site ABG pH ABG pCO2 at Pt Temp ABG pO2 at Pt Temp ABG HCO3 ABG O2 Sat (Measured) ABG O2 Content ABG Base Excess [place] Test O2 Delivery Device Oxygen Flow Rate Vent Mode Vent Rate Mechanical Rate Pressure Support Vent Sodium Potassium Chloride Carbon Dioxide Anion Gap BUN Creatinine Creat Clearance w eGFR POC Glucometer 125 Random Glucose Calcium Phosphorus Magnesium Total Bilirubin AST ALT Alkaline Phosphatase Total Protein Albumin Blood Type A POSITIVE Antibody Screen Negative 03/27/18 03/28/18 03/28/18 20:00 05:30 05:30 WBC 11.9 H RBC 3.63 L Hgb 11.1 L Hct 33.0 L MCV 90.8 MCH 30.6 MCHC 33.7 RDW 15.0 Plt Count 162 MPV 8.6 Absolute Neuts (auto) 9.2 H Neutrophils % 77.3 Lymphocytes % 13.8 Monocytes % 8.3 Eosinophils % 0.4 D Basophils % 0.2 Nucleated RBC % 0 Anticoagulation Therapy Puncture Site ABG pH ABG pCO2 at Pt Temp ABG pO2 at Pt Temp ABG HCO3 ABG O2 Sat (Measured) ABG O2 Content ABG Base Excess [place] Test O2 Delivery Device Oxygen Flow Rate Vent Mode Vent Rate Mechanical Rate Pressure Support Vent Sodium 138 137 Potassium 3.3 L 3.6 Chloride 100 99 Carbon Dioxide 29 29 Anion Gap 9 9 BUN 8 7 Creatinine 0.9 0.9 Creat Clearance w eGFR > 60 > 60 POC Glucometer Random Glucose 182 H 229 H Calcium 7.4 L 7.4 L Phosphorus 3.2 Magnesium 1.7 L Total Bilirubin 1.4 H AST 59 H ALT 59 Alkaline Phosphatase 129 H Total Protein 5.3 L Albumin 1.6 L Blood Type Antibody Screen Active Medications Generic Name Dose Route Start Last Admin Trade Name Freq PRN Reason Stop Dose Admin Acetaminophen 1,000 mg 03/28/18 02:30 03/28/18 02:59 Ofirmev Injection - IVPB 1,000 mg Q6H PRN Administration PAIN LEVEL 1-5 AND/OR FEVER Albuterol Sulfate 1 amp 03/27/18 16:47 Ventolin 0.083% Nebulizer Soln - NEB Q4H PRN SHORT OF BREATH/WHEEZING Albuterol/Ipratropium 1 amp 03/27/18 20:00 03/27/18 20:19 Duoneb - NEB 1 amp RQID [facility] Administration Amino Acids 30 ml 03/27/18 17:30 03/27/18 19:20 Prosource No Carb Liquid Pkt PO Not Given BID@0800,1730 [facility] Atorvastatin Calcium 40 mg 03/27/18 22:00 03/27/18 21:36 Lipitor - PO Not Given HS [facility] Potassium Chloride/Dextrose/Sod Cl 20 meq in 1,000 mls @ 75 mls/hr 03/27/18 16 :47 03/28/18 01:26 D5-1/2ns+20 Meq Kcl - IV Not Given ASDIR [facility] Piperacillin Sod/Tazobactam 50 mls @ 100 mls/hr 03/27/18 18:00 03/28/18 01:32 Sod 3.375 gm/ Dextrose IVPB 100 mls/hr Q8H-IV [facility] Administration Protocol Propofol 1,000,000 mcg in 100 mls @ 30.264 mls/hr 03/27/18 17:15 03/28/18 06: 17 Diprivan - IVPB 30 mcg/kg/min TITR [facility] 18.158 mls/hr Titration Protocol 50 MCG/KG/MIN Fentanyl 500 mcg/ Dextrose 100 mls @ 5 mls/hr 03/27/18 17:15 03/28/18 01:33 IVPB 03/28/18 17:14 25 mcg/hr TITR [facility] 5 mls/hr Administration 25 MCG/HR Insulin Aspart 1 vial 03/27/18 22:00 12/04/18 06:17 Novolog Vial Sliding Scale - SQ Not Given ACHS [facility] Protocol Insulin Detemir 22 units 03/27/18 22:00 03/28/18 00:34 Levemir Vial SQ 22 units HS [facility] Administration Lisinopril 40 mg 03/28/18 10:00 Prinivil PO DAILY [facility] Methyl Salicylate 1 applic 03/27/18 16:47 Felix-Seaman - TP Q8H PRN BODY ACHES Metoprolol Tartrate 50 mg 03/27/18 22:00 03/27/18 21:36 Lopressor - PO Not Given BID [facility] Multi-Ingredient Ointment 1 applic 03/27/18 22:00 03/27/18 22:00 Zinc Oxide TP Not Given BID [facility] Ranitidine HCl 150 mg 03/27/18 22:00 03/27/18 21:37 Zantac - PO Not Given BID [facility] ASSESSMENT/PLAN: 78M w/ pmhx of HTN, HLD, CHF, CVA with residual right sided weakness, dysphagia , DM2, COPD admitted for sepsis 2/2 pna, s/p sigmoid colectomy, end colostomy, umbilical hernia repair POD#1. Neurology #History of CVA with residual right-sided weakness -continue ASA and atorvastatin Pulmonary #Pneumonia likely Aspiration left base infiltrate -Cont Zosyn. #Post-op intubation -wean from vent, plan for extubation -vent settings: 10/500/50%/5 Cardiology #Atrial Fibrillation -Per cardio: Metoprolol 50 BID and uptitrate as needed; restart Eliquis when cleared by surg, may use heparin drip if needed #Diastolic CHF -Hold home lasix -Continue Lovenox 100mg sq bid #Hypertension -Lisinopril 40 QD -monitor BP #Hyperlipidemia -Continue Atorvastatin 40mg PO HS #QTc prolongation: 810ms -Avoid agents that increase QTc GI #Sigmoid Volvulus s/p sigmoid colectomy, end ostomy, umbilical hernia repair, POD#1. -NPO for now, adv diet per surg recs -surg following -IS -Pain control -IV Tylenol for fever Renal #Hypokalemia -Today 3.6. Stable. -Replete PRN #Hypomagnesemia -Today 2.1. Stable. -Replete PRN. ID #Sepsis 2/2 RLL PNA -ID (Dr. Peters) consulted. Recommendations appreciated. -Continue Zosyn 4.5 gm q8h Endocrinology #DM -Insulin Levemir 22 units sq hs -ISS ACHS -BGMs ACHS Prophylaxis GI- Protonix 40 QD DVT- SCDs FEN -D5-1/2NS -recheck lytes in AM -NPO lines -NGt -ostomy -owen dispo -full code -cont to monitor in ICU Visit type - Emergency Visit Emergency Visit: Yes ED Registration Date: 02/28/18 Care time: The patient presented to the Emergency Department on the above date and was hospitalized for further evaluation of their emergent condition. - New Patient This patient is new to me today: Yes Date on this admission: 03/28/18 - Critical Care Critical Care patient: Yes Total Critical Care Time (in minutes): 40 Critical Care Statement: The care of this patient involved high complexity decision making to prevent further life threatening deterioration of the patient 's condition and/or to evaluate & treat vital organ system(s) failure or risk of failure.
--- NOTE | 2018-03-28 08:11 | PN ---
Progress Note (short form) - Note Progress Note: Anesthesia post op Pt seen and examined S:Intubated and sedated O: Vital Signs Temperature 99.5 F 03/28/18 06:00 Pulse Rate 112 H 03/28/18 06:00 Respiratory Rate 03/28/18 07:01 Blood Pressure 134/64 03/28/18 06:00 O2 Sat by Pulse Oximetry (%) 100 03/27/18 22:00 CBC, BMP 03/28/18 05:30 03/28/18 05:30 A/P: Current Active Problems Abdominal pain (Acute) Chronic anticoagulation (Acute) Demand ischemia (Acute) Distended abdomen (Acute) Elevated troponin (Acute) Hypokalemia (Acute) Hypoxemia (Acute) Leucocytosis (Acute) Pneumonia (Acute) Pre-operative cardiovascular examination (Acute) Premature ventricular contraction (Acute) Prolonged Q-T interval on ECG (Acute) Rapid atrial fibrillation (Acute) Sepsis (Acute) Volvulus (Acute) Volvulus of descending colon (Acute) Volvulus of sigmoid colon (Acute) s/p Ex lap Brunson's procedure VSS No apparent anesthesia related complications Continue current care Luis Fernando Finch MD
[2018-03-28 08:49] LABS: MAGNESIUM 2.1 mg/dL (1.8-2.4)
[2018-03-28] MEDS: METOPROLOL TARTRATE 50 MG TABLET (FP) PO SCH ×3 (09:10→21:07)
[2018-03-28] MEDS: AMINO ACIDS/PROTEIN HYDROLYS 30 ML LIQUID.PKT PO SCH ×2 (09:10→17:01)
[2018-03-28] MEDS: LISINOPRIL 20 MG TABLET (FP) PO SCH (09:10)
[2018-03-28] MEDS: RANITIDINE HCL 150 MG TABLET (FP) PO SCH ×2 (09:11→21:06)
[2018-03-28] MEDS: PANTOPRAZOLE SODIUM 40 MG VIAL IVPUSH SCH (10:29)
--- NOTE | 2018-03-28 10:35 | PN ---
Progress Note, Physician Chief Complaint: Events noted POD #1 sigmoid colectomy, colostomy Remains intubated in ICU History of Present Illness: Patient was seen and examined. Awake. Chart was reviewed Plans to wean off Mechanical ventilation - Current Medication List Current Medications: Active Medications Acetaminophen (Ofirmev Injection -) 1,000 mg IVPB Q6H PRN PRN Reason: PAIN LEVEL 1-5 AND/OR FEVER Last Admin: 03/28/18 02:59 Dose: 1,000 mg Albuterol Sulfate (Ventolin 0.083% Nebulizer Soln -) 1 amp NEB Q4H PRN PRN Reason: SHORT OF BREATH/WHEEZING Albuterol/Ipratropium (Duoneb -) 1 amp NEB RQID [facility] Last Admin: 03/28/18 07:15 Dose: 1 amp Amino Acids (Prosource No Carb Liquid Pkt) 30 ml PO BID@0800,1730 [facility] Last Admin: 03/28/18 09:10 Dose: Not Given Atorvastatin Calcium (Lipitor -) 40 mg PO HS [facility] Last Admin: 03/27/18 21:36 Dose: Not Given Potassium Chloride/Dextrose/Sod Cl (D5-1/2ns+20 Meq Kcl -) 20 meq in 1,000 mls @ 75 mls/hr IV ASDIR [facility] Last Admin: 03/28/18 01:26 Dose: Not Given Piperacillin Sod/Tazobactam (Sod 3.375 gm/ Dextrose) 50 mls @ 100 mls/hr IVPB Q8H-IV [facility]; Protocol Last Admin: 03/28/18 01:32 Dose: 100 mls/hr Propofol (Diprivan -) 1,000,000 mcg in 100 mls @ 30.264 mls/hr IVPB TITR [facility]; Protocol Last Titration: 03/28/18 06:17 Dose: 30 mcg/kg/min, 18.158 mls/hr Fentanyl 500 mcg/ Dextrose 100 mls @ 5 mls/hr IVPB TITR [facility] Stop: 03/28/18 17:14 Last Admin: 03/28/18 01:33 Dose: 25 mcg/hr, 5 mls/hr Insulin Aspart (Novolog Vial Sliding Scale -) 1 vial SQ [facility]; Protocol Last Admin: 03/28/18 10:26 Dose: 6 units Insulin Detemir (Levemir Vial) 22 units SQ [facility] Last Admin: 03/28/18 00:34 Dose: 22 units Lisinopril (Prinivil) 40 mg PO DAILY [facility] Last Admin: 03/28/18 09:10 Dose: Not Given Methyl Salicylate (Felix-Seaman -) 1 applic TP Q8H PRN PRN Reason: BODY ACHES Metoprolol Tartrate (Lopressor -) 50 mg PO BID [facility] Last Admin: 03/28/18 09:10 Dose: Not Given Multi-Ingredient Ointment (Zinc Oxide) 1 applic TP BID [facility] Last Admin: 03/27/18 22:00 Dose: Not Given Pantoprazole Sodium (Protonix Iv) 40 mg IVPUSH DAILY [facility] Ranitidine HCl (Zantac -) 150 mg PO BID [facility] Last Admin: 03/28/18 09:11 Dose: Not Given - Objective Vital Signs: Vital Signs Temperature 100.0 F H 03/28/18 10:00 Pulse Rate 98 H 03/28/18 10:00 Respiratory Rate 16 03/28/18 10:00 Blood Pressure 153/85 03/28/18 10:00 O2 Sat by Pulse Oximetry (%) 100 03/28/18 08:41 Cardiovascular: Yes: Tachycardia, Pulse Irregular, S1, S2 Respiratory: Yes: Mechanically Ventilated Gastrointestinal: Yes: Distention, Other (Post op) Edema: No Labs: CBC, BMP 03/28/18 05:30 03/28/18 05:30 Problem List - Problems (1) Demand ischemia Code(s): I24.8 - OTHER FORMS OF ACUTE ISCHEMIC HEART DISEASE (2) Pneumonia Code(s): J18.9 - PNEUMONIA, UNSPECIFIED ORGANISM (3) Premature ventricular contraction Code(s): I49.3 - VENTRICULAR PREMATURE DEPOLARIZATION (4) Rapid atrial fibrillation Code(s): I48.91 - UNSPECIFIED ATRIAL FIBRILLATION (5) Sepsis Code(s): A41.9 - SEPSIS, UNSPECIFIED ORGANISM Qualifiers: Sepsis type: sepsis due to unspecified organism Qualified Code(s): A41.9 - Sepsis, unspecified organism (6) Volvulus of sigmoid colon Code(s): K56.2 - VOLVULUS (7) COPD (chronic obstructive pulmonary disease) Code(s): J44.9 - CHRONIC OBSTRUCTIVE PULMONARY DISEASE, UNSPECIFIED Qualifiers: Emphysema type: unspecified (8) Diabetes Code(s): E11.9 - TYPE 2 DIABETES MELLITUS WITHOUT COMPLICATIONS (9) Diastolic dysfunction Code(s): I51.9 - HEART DISEASE, UNSPECIFIED (10) H/O: CVA (cerebrovascular accident) Code(s): Z86.73 - PRSNL HX OF TIA (TIA), AND CEREB INFRC W/O RESID DEFICITS (11) Hyperlipidemia Code(s): E78.5 - HYPERLIPIDEMIA, UNSPECIFIED Qualifiers: Hyperlipidemia type: pure hypercholesterolemia Qualified Code(s): E78.00 - Pure hypercholesterolemia, unspecified; E78.0 - Pure hypercholesterolemia (12) Hypertension Code(s): I10 - ESSENTIAL (PRIMARY) HYPERTENSION Qualifiers: Hypertension type: essential hypertension Qualified Code(s): I10 - Essential (primary) hypertension (13) Toxic metabolic encephalopathy Code(s): G92 - TOXIC ENCEPHALOPATHY Assessment/Plan 1. Acute Hypoxic Respiratory Failure and right lower lobe aspiration pneumonia 2. Intermittent sigmoid volvulus post rectal tube decompression and now post sigmoid colectomy, colostomy and umbilical hernia repair 3. 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 Diastolic LV dysfunction with clinical class 0-I NYHA classification LV failure, compensated/euvolemic 5. Paroxysmal atrial fibrillation [id number] score 7 6. Toxic-metabolic encephalopathy 7. History of CVA with residual right-sided weakness PLAN: 1. ICU management. Attempt to wean vent setting 2. Antibiotic coverage 3. Surgical follow up 4. May give IV Lopressor while on the vent and then switch to PO when feasible ( previously on Lopressor 50 mg BID) 5. Restart Lisinopril 40 mg QD when feasible 6. Ideally will need to restart anticoagulation (eventually back on Eliquis 5 mg BID). In the interim, may use Heparin drip if needed Further plans are to follow Rachid Richards MD
--- NOTE | 2018-03-28 10:39 | PN ---
Progress Note (short form) - Note Progress Note: POD #1- s/p sigmoid colectomy , colostomy off propofol intubated awake no distress no agitation Vital Signs - 24 hr 03/27/18 03/27/18 03/27/18 12:00 16:10 16:25 Temperature 100.3 F H 100.5 F H Pulse Rate 86 91 H 91 H Respiratory 18 10 10 Rate Blood Pressure 150/83 143/88 154/83 O2 Sat by Pulse 100 100 Oximetry (%) 03/27/18 03/27/18 03/27/18 16:40 16:55 17:10 Temperature Pulse Rate 83 94 H 72 Respiratory 10 15 12 Rate Blood Pressure 158/66 143/84 138/70 O2 Sat by Pulse 100 100 100 Oximetry (%) 03/27/18 03/27/18 03/27/18 17:25 17:40 17:55 Temperature Pulse Rate 81 81 81 Respiratory 16 15 11 Rate Blood Pressure 147/68 142/88 137/82 O2 Sat by Pulse 100 100 100 Oximetry (%) 03/27/18 03/27/18 03/27/18 18:10 18:36 20:00 Temperature 100.6 F H Pulse Rate 79 76 Respiratory 14 15 15 Rate Blood Pressure 156/76 121/72 O2 Sat by Pulse 100 Oximetry (%) 03/27/18 03/27/18 03/27/18 21:00 21:19 22:00 Temperature Pulse Rate 86 Respiratory 16 16 14 Rate Blood Pressure 149/66 O2 Sat by Pulse 100 100 Oximetry (%) 03/27/18 03/28/18 03/28/18 23:38 00:00 02:00 Temperature 101.4 F H Pulse Rate 105 H 119 H Respiratory 14 14 14 Rate Blood Pressure 159/82 163/82 O2 Sat by Pulse Oximetry (%) 03/28/18 03/28/18 03/28/18 02:15 04:00 05:00 Temperature 100.2 F H Pulse Rate 104 H Respiratory 15 16 14 Rate Blood Pressure 136/61 O2 Sat by Pulse Oximetry (%) 03/28/18 03/28/18 03/28/18 06:00 07:01 07:30 Temperature 99.5 F Pulse Rate 112 H Respiratory 15 12 17 Rate Blood Pressure 134/64 O2 Sat by Pulse 100 Oximetry (%) 03/28/18 03/28/1818 08:00 08:41 09:15 Temperature Pulse Rate 100 H Respiratory 18 18 16 Rate Blood Pressure 119/75 O2 Sat by Pulse 100 Oximetry (%) 03/28/18 10:00 Temperature 100.0 F H Pulse Rate 98 H Respiratory 16 Rate Blood Pressure 153/85 O2 Sat by Pulse Oximetry (%) Current Medications Generic Name Dose Route Start Last Admin Trade Name Freq PRN Reason Stop Dose Admin Acetaminophen 1,000 mg 03/28/18 02:30 03/28/18 02:59 Ofirmev Injection - IVPB 1,000 mg Q6H PRN Administration PAIN LEVEL 1-5 AND/OR FEVER Albuterol Sulfate 1 amp 03/27/18 16:47 Ventolin 0.083% Nebulizer Soln - NEB Q4H PRN SHORT OF BREATH/WHEEZING Albuterol/Ipratropium 1 amp 03/27/18 20:00 03/28/18 07:15 Duoneb - NEB 1 amp RQID [facility] Administration Amino Acids 30 ml 03/27/18 17:30 03/28/18 09:10 Prosource No Carb Liquid Pkt PO Not Given BID@0800,1730 [facility] Atorvastatin Calcium 40 mg 03/27/18 22:00 03/27/18 21:36 Lipitor - PO Not Given HS [facility] Potassium Chloride/Dextrose/Sod Cl 20 meq in 1,000 mls @ 75 mls/hr 03/27/18 16 :47 03/28/18 01:26 D5-1/2ns+20 Meq Kcl - IV Not Given ASDIR [facility] Piperacillin Sod/Tazobactam 50 mls @ 100 mls/hr 03/27/18 18:00 03/28/18 10:29 Sod 3.375 gm/ Dextrose IVPB 100 mls/hr Q8H-IV [facility] Administration Protocol Propofol 1,000,000 mcg in 100 mls @ 30.264 mls/hr 03/27/18 17:15 03/28/18 09: 45 Diprivan - IVPB 0 mcg/kg/min TITR [facility] 0 mls/hr Titration Protocol 50 MCG/KG/MIN Fentanyl 500 mcg/ Dextrose 100 mls @ 5 mls/hr 03/27/18 17:15 03/28/18 09:45 IVPB 03/28/18 17:14 0 mcg/hr TITR [facility] 0 mls/hr Titration 25 MCG/HR Insulin Aspart 1 vial 03/27/18 22:00 03/28/18 10:26 Novolog Vial Sliding Scale - SQ 6 units ACHS [facility] Administration Protocol Insulin Detemir 22 units 03/27/18 22:00 03/28/18 00:34 Levemir Vial SQ 22 units HS [facility] Administration Lisinopril 40 mg 03/28/18 10:00 03/28/18 09:10 Prinivil PO Not Given DAILY [facility] Methyl Salicylate 1 applic 03/27/18 16:47 Felix-Seaman - TP Q8H PRN BODY ACHES Metoprolol Tartrate 50 mg 03/27/18 22:00 03/28/18 09:10 Lopressor - PO Not Given BID [facility] Multi-Ingredient Ointment 1 applic 03/27/18 22:00 03/27/18 22:00 Zinc Oxide TP Not Given BID [facility] Pantoprazole Sodium 40 mg 03/28/18 10:00 03/28/18 10:29 Protonix Iv IVPUSH 40 mg DAILY [facility] Administration Ranitidine HCl 150 mg 03/27/18 22:00 03/28/18 09:11 Zantac - PO Not Given BID [facility] Laboratory Results - last 24 hr 03/27/18 03/27/18 03/27/18 11:56 12:43 16:45 WBC RBC Hgb Hct MCV MCH MCHC RDW Plt Count MPV Absolute Neuts (auto) Neutrophils % Lymphocytes % Monocytes % Eosinophils % Basophils % Nucleated RBC % Anticoagulation Therapy No Result Required. Puncture Site Right radial ABG pH 7.44 ABG pCO2 at Pt Temp 40.8 ABG pO2 at Pt Temp 120.0 H D ABG HCO3 27.5 H ABG O2 Sat (Measured) 97.9 ABG O2 Content 16.7 ABG Base Excess 3.6 H [place] Test Positive O2 Delivery Device No Result Required. Oxygen Flow Rate 50% Vent Mode No Result Required. Vent Rate No Result Required. Mechanical Rate No Result Required. Pressure Support Vent No Result Required. Sodium Potassium Chloride Carbon Dioxide Anion Gap BUN Creatinine Creat Clearance w eGFR POC Glucometer 155 159 Random Glucose Calcium Phosphorus Magnesium Total Bilirubin AST ALT Alkaline Phosphatase Total Protein Albumin Blood Type Antibody Screen 03/27/18 03/27/18 03/27/18 16:52 17:00 20:00 WBC 11.1 H RBC 3.85 L Hgb 12.4 Hct 35.3 L MCV 91.6 MCH 32.1 MCHC 35.1 RDW 15.2 Plt Count 167 MPV 8.4 Absolute Neuts (auto) Neutrophils % Lymphocytes % Monocytes % Eosinophils % Basophils % Nucleated RBC % Anticoagulation Therapy Puncture Site ABG pH ABG pCO2 at Pt Temp ABG pO2 at Pt Temp ABG HCO3 ABG O2 Sat (Measured) ABG O2 Content ABG Base Excess [place] Test O2 Delivery Device Oxygen Flow Rate Vent Mode Vent Rate Mechanical Rate Pressure Support Vent Sodium Potassium Chloride Carbon Dioxide Anion Gap BUN Creatinine Creat Clearance w eGFR POC Glucometer 125 Random Glucose Calcium Phosphorus Magnesium Total Bilirubin AST ALT Alkaline Phosphatase Total Protein Albumin Blood Type A POSITIVE Antibody Screen Negative 03/27/18 03/28/18 03/28/18 20:00 05:30 05:30 WBC 11.9 H RBC 3.63 L Hgb 11.1 L Hct 33.0 L MCV 90.8 MCH 30.6 MCHC 33.7 RDW 15.0 Plt Count 162 MPV 8.6 Absolute Neuts (auto) 9.2 H Neutrophils % 77.3 Lymphocytes % 13.8 Monocytes % 8.3 Eosinophils % 0.4 D Basophils % 0.2 Nucleated RBC % 0 Anticoagulation Therapy Puncture Site ABG pH ABG pCO2 at Pt Temp ABG pO2 at Pt Temp ABG HCO3 ABG O2 Sat (Measured) ABG O2 Content ABG Base Excess [place] Test O2 Delivery Device Oxygen Flow Rate Vent Mode Vent Rate Mechanical Rate Pressure Support Vent Sodium 138 137 Potassium 3.3 L 3.6 Chloride 100 99 Carbon Dioxide 29 29 Anion Gap 9 9 BUN 8 7 Creatinine 0.9 0.9 Creat Clearance w eGFR > 60 > 60 POC Glucometer Random Glucose 182 H 229 H Calcium 7.4 L 7.4 L Phosphorus 3.2 Magnesium 1.7 L 2.1 Total Bilirubin 1.4 H AST 59 H ALT 59 Alkaline Phosphatase 129 H Total Protein 5.3 L Albumin 1.6 L Blood Type Antibody Screen intubated S1 S2 irregular Lungs decreased ABd- soft, NT, dressing noted in midline no bowel sounds colostomy-- serous fluid No edema PLAN has low grade fever vent-weaning as tolerated continue with antibiotics iv fluids NPO Problem List - Problems (1) Demand ischemia Code(s): I24.8 - OTHER FORMS OF ACUTE ISCHEMIC HEART DISEASE (2) Elevated troponin Code(s): R74.8 - ABNORMAL LEVELS OF OTHER SERUM ENZYMES (3) Pneumonia Code(s): J18.9 - PNEUMONIA, UNSPECIFIED ORGANISM (4) Rapid atrial fibrillation Code(s): I48.91 - UNSPECIFIED ATRIAL FIBRILLATION (5) Sepsis Code(s): A41.9 - SEPSIS, UNSPECIFIED ORGANISM Qualifiers: Sepsis type: sepsis due to unspecified organism Qualified Code(s): A41.9 - Sepsis, unspecified organism
[2018-03-28] MEDS: ZINC OXIDE 20% TOPICAL OINTMENT 30 GM TUBE TP SCH ×2 (11:54→21:07)
--- NOTE | 2018-03-28 12:38 | PN ---
Teaching Attending Note Name of Resident: Riri Malagon ATTENDING PHYSICIAN STATEMENT I saw and evaluated the patient. I reviewed the resident's note and discussed the case with the resident. I agree with the resident's findings and plan as documented. SUBJECTIVE: Patient seen and examined in the ICU. Intubated and sedated. No pressors. AC Mode of vent, 40% of vent. Intake & Output 03/25/18 03/26/18 03/27/18 03/28/18 23:59 23:59 23:59 23:59 Intake Total 1230 5360 3425 1173 Output Total 360 Balance 1230 5360 3065 1173 Weight 211 lb 1.6 oz 212 lb 4.8 oz 222 lb 6.4 oz Last Vital Signs Temp Pulse Resp BP Pulse Ox 100.0 F H 112 H 16 161/84 98 03/28/18 10:00 03/28/18 12:00 03/28/18 12:00 03/28/18 12:00 03/28/18 11:19 Active Medications Acetaminophen (Ofirmev Injection -) 1,000 mg IVPB Q6H PRN PRN Reason: PAIN LEVEL 1-5 AND/OR FEVER Last Admin: 03/28/18 12:26 Dose: 1,000 mg Albuterol Sulfate (Ventolin 0.083% Nebulizer Soln -) 1 amp NEB Q4H PRN PRN Reason: SHORT OF BREATH/WHEEZING Albuterol/Ipratropium (Duoneb -) 1 amp NEB RQID [facility] Last Admin: 03/28/18 11:17 Dose: 1 amp Amino Acids (Prosource No Carb Liquid Pkt) 30 ml PO BID@0800,1730 [facility] Last Admin: 03/28/18 09:10 Dose: Not Given Atorvastatin Calcium (Lipitor -) 40 mg PO HS [facility] Last Admin: 03/27/18 21:36 Dose: Not Given Potassium Chloride/Dextrose/Sod Cl (D5-1/2ns+20 Meq Kcl -) 20 meq in 1,000 mls @ 75 mls/hr IV ASDIR [facility] Last Admin: 03/28/18 01:26 Dose: Not Given Piperacillin Sod/Tazobactam (Sod 3.375 gm/ Dextrose) 50 mls @ 100 mls/hr IVPB Q8H-IV [facility]; Protocol Last Admin: 03/28/18 10:29 Dose: 100 mls/hr Propofol (Diprivan -) 1,000,000 mcg in 100 mls @ 30.264 mls/hr IVPB TITR [facility]; Protocol Last Titration: 03/28/18 09:45 Dose: 0 mcg/kg/min, 0 mls/hr Fentanyl 500 mcg/ Dextrose 100 mls @ 5 mls/hr IVPB TITR [facility] Stop: 03/28/18 17:14 Last Titration: 03/28/18 09:45 Dose: 0 mcg/hr, 0 mls/hr Insulin Aspart (Novolog Vial Sliding Scale -) 1 vial SQ ACHS [facility]; Protocol Last Admin: 03/28/18 10:26 Dose: 6 units Insulin Detemir (Levemir Vial) 22 units SQ HS [facility] Last Admin: 03/28/18 00:34 Dose: 22 units Lisinopril (Prinivil) 40 mg PO DAILY [facility] Last Admin: 03/28/18 09:10 Dose: Not Given Methyl Salicylate (Felix-Seaman -) 1 applic TP Q8H PRN PRN Reason: BODY ACHES Metoprolol Tartrate (Lopressor -) 50 mg PO BID [facility] Last Admin: 03/28/18 09:10 Dose: Not Given Multi-Ingredient Ointment (Zinc Oxide) 1 applic TP BID [facility] Last Admin: 03/28/18 11:54 Dose: 1 applic Pantoprazole Sodium (Protonix Iv) 40 mg IVPUSH DAILY [facility] Last Admin: 03/28/18 10:29 Dose: 40 mg Ranitidine HCl (Zantac -) 150 mg PO BID [facility] Last Admin: 03/28/18 09:11 Dose: Not Given Gen: Intubated and sedated, NAD Heart: RRR Lung: scattered rhonchi Abd: soft, nontender Ext: edema Laboratory Results - last 24 hr 03/27/18 03/27/18 03/27/18 12:43 16:45 16:52 WBC RBC Hgb Hct MCV MCH MCHC RDW Plt Count MPV Absolute Neuts (auto) Neutrophils % Lymphocytes % Monocytes % Eosinophils % Basophils % Nucleated RBC % Anticoagulation Therapy No Result Required. Puncture Site Right radial ABG pH 7.44 ABG pCO2 at Pt Temp 40.8 ABG pO2 at Pt Temp 120.0 H D ABG HCO3 27.5 H ABG O2 Sat (Measured) 97.9 ABG O2 Content 16.7 ABG Base Excess 3.6 H [place] Test Positive O2 Delivery Device No Result Required. Oxygen Flow Rate 50% Vent Mode No Result Required. Vent Rate No Result Required. Mechanical Rate No Result Required. Pressure Support Vent No Result Required. Sodium Potassium Chloride Carbon Dioxide Anion Gap BUN Creatinine Creat Clearance w eGFR POC Glucometer 159 125 Random Glucose Calcium Phosphorus Magnesium Total Bilirubin AST ALT Alkaline Phosphatase Total Protein Albumin Blood Type Antibody Screen 03/27/18 03/27/18 03/27/18 17:00 20:00 20:00 WBC 11.1 H RBC 3.85 L Hgb 12.4 Hct 35.3 L MCV 91.6 MCH 32.1 MCHC 35.1 RDW 15.2 Plt Count 167 MPV 8.4 Absolute Neuts (auto) Neutrophils % Lymphocytes % Monocytes % Eosinophils % Basophils % Nucleated RBC % Anticoagulation Therapy Puncture Site ABG pH ABG pCO2 at Pt Temp ABG pO2 at Pt Temp ABG HCO3 ABG O2 Sat (Measured) ABG O2 Content ABG Base Excess [place] Test O2 Delivery Device Oxygen Flow Rate Vent Mode Vent Rate Mechanical Rate Pressure Support Vent Sodium 138 Potassium 3.3 L Chloride 100 Carbon Dioxide 29 Anion Gap 9 BUN 8 Creatinine 0.9 Creat Clearance w eGFR > 60 POC Glucometer Random Glucose 182 H Calcium 7.4 L Phosphorus 3.2 Magnesium 1.7 L Total Bilirubin AST ALT Alkaline Phosphatase Total Protein Albumin Blood Type A POSITIVE Antibody Screen Negative 03/28/18 03/28/18 03/28/18 00:31 05:26 05:30 WBC 11.9 H RBC 3.63 L Hgb 11.1 L Hct 33.0 L MCV 90.8 MCH 30.6 MCHC 33.7 RDW 15.0 Plt Count 162 MPV 8.6 Absolute Neuts (auto) 9.2 H Neutrophils % 77.3 Lymphocytes % 13.8 Monocytes % 8.3 Eosinophils % 0.4 D Basophils % 0.2 Nucleated RBC % 0 Anticoagulation Therapy Puncture Site ABG pH ABG pCO2 at Pt Temp ABG pO2 at Pt Temp ABG HCO3 ABG O2 Sat (Measured) ABG O2 Content ABG Base Excess [place] Test O2 Delivery Device Oxygen Flow Rate Vent Mode Vent Rate Mechanical Rate Pressure Support Vent Sodium Potassium Chloride Carbon Dioxide Anion Gap BUN Creatinine Creat Clearance w eGFR POC Glucometer 259.22089 283.01063 Random Glucose Calcium Phosphorus Magnesium Total Bilirubin AST ALT Alkaline Phosphatase Total Protein Albumin Blood Type Antibody Screen 03/28/18 03/28/18 05:30 10:16 WBC RBC Hgb Hct MCV MCH MCHC RDW Plt Count MPV Absolute Neuts (auto) Neutrophils % Lymphocytes % Monocytes % Eosinophils % Basophils % Nucleated RBC % Anticoagulation Therapy Puncture Site ABG pH ABG pCO2 at Pt Temp ABG pO2 at Pt Temp ABG HCO3 ABG O2 Sat (Measured) ABG O2 Content ABG Base Excess [place] Test O2 Delivery Device Oxygen Flow Rate Vent Mode Vent Rate Mechanical Rate Pressure Support Vent Sodium 137 Potassium 3.6 Chloride 99 Carbon Dioxide 29 Anion Gap 9 BUN 7 Creatinine 0.9 Creat Clearance w eGFR > 60 POC Glucometer 256.77372 Random Glucose 229 H Calcium 7.4 L Phosphorus Magnesium 2.1 Total Bilirubin 1.4 H AST 59 H ALT 59 Alkaline Phosphatase 129 H Total Protein 5.3 L Albumin 1.6 L Blood Type Antibody Screen A/P s/p Acute Hypoxic Respiratory Failure Pneumonia likely Aspiration clinically improved Sigmoid Volvulus s/p Rectal Tube Decompression Sepsis resolved LV Diastolic Dysfunction +Troponins likely Demand Ischemia Paroxysmal Atrial Fibrillation h/o CVA - Wean trials with hopes of extubation today - ABX per ID - aspiration precautions - rate control - VTE prophylaxis - PPI - Enteral feeds when cleared by surgery - Glycemic control Dr Patel Critical care time spent in reviewing chart, evaluating patient and formulating plan - 36 minutes.
--- NOTE | 2018-03-28 14:49 | PN ---
Progress Note, Physician Chief Complaint: volvulus History of Present Illness: 77yo male PMH HTN, HLD, CHF, CVA with residual right sided weakness, dysphagia, DM2, COPD presented with weakness and fever 103 from NH. Remains weak, marginally responsive, on cardizem for Afib which is more rate controlled now. rectal tube was replaced because of recurrent colonic atony and distension. with the rectal tube removed today the patient is passing semiformed stool. Stable post operatively. - Current Medication List Current Medications: Active Medications Acetaminophen (Ofirmev Injection -) 1,000 mg IVPB Q6H PRN PRN Reason: PAIN LEVEL 1-5 AND/OR FEVER Last Admin: 03/28/18 12:26 Dose: 1,000 mg Albuterol Sulfate (Ventolin 0.083% Nebulizer Soln -) 1 amp NEB Q4H PRN PRN Reason: SHORT OF BREATH/WHEEZING Albuterol/Ipratropium (Duoneb -) 1 amp NEB RQID [facility] Last Admin: 03/28/18 11:17 Dose: 1 amp Amino Acids (Prosource No Carb Liquid Pkt) 30 ml PO BID@0800,1730 [facility] Last Admin: 03/28/18 09:10 Dose: Not Given Atorvastatin Calcium (Lipitor -) 40 mg PO HS [facility] Last Admin: 03/27/18 21:36 Dose: Not Given Potassium Chloride/Dextrose/Sod Cl (D5-1/2ns+20 Meq Kcl -) 20 meq in 1,000 mls @ 75 mls/hr IV ASDIR [facility] Last Admin: 03/28/18 01:26 Dose: Not Given Piperacillin Sod/Tazobactam (Sod 3.375 gm/ Dextrose) 50 mls @ 100 mls/hr IVPB Q8H-IV [facility]; Protocol Last Admin: 03/28/18 10:29 Dose: 100 mls/hr Propofol (Diprivan -) 1,000,000 mcg in 100 mls @ 30.264 mls/hr IVPB TITR [facility]; Protocol Last Titration: 03/28/18 09:45 Dose: 0 mcg/kg/min, 0 mls/hr Fentanyl 500 mcg/ Dextrose 100 mls @ 5 mls/hr IVPB TITR [facility] Stop: 03/28/18 17:14 Last Titration: 03/28/18 09:45 Dose: 0 mcg/hr, 0 mls/hr Insulin Aspart (Novolog Vial Sliding Scale -) 1 vial SQ ACHS [facility]; Protocol Last Admin: 03/28/18 10:26 Dose: 6 units Insulin Detemir (Levemir Vial) 22 units SQ HS [facility] Last Admin: 03/28/18 00:34 Dose: 22 units Lisinopril (Prinivil) 40 mg PO DAILY [facility] Last Admin: 03/28/18 09:10 Dose: Not Given Methyl Salicylate (Felix-Seaman -) 1 applic TP Q8H PRN PRN Reason: BODY ACHES Metoprolol Tartrate (Lopressor -) 50 mg PO BID [facility] Last Admin: 03/28/18 09:10 Dose: Not Given Multi-Ingredient Ointment (Zinc Oxide) 1 applic TP BID [facility] Last Admin: 03/28/18 11:54 Dose: 1 applic Pantoprazole Sodium (Protonix Iv) 40 mg IVPUSH DAILY [facility] Last Admin: 03/28/18 10:29 Dose: 40 mg Ranitidine HCl (Zantac -) 150 mg PO BID [facility] Last Admin: 03/28/18 09:11 Dose: Not Given - Objective Vital Signs: Vital Signs Temperature 100.0 F H 03/28/18 14:00 Pulse Rate 100 H 03/28/18 14:00 Respiratory Rate 25 H 03/28/18 14:00 Blood Pressure 139/88 03/28/18 14:00 O2 Sat by Pulse Oximetry (%) 98 03/28/18 11:19 Vital Signs Period Temp Pulse Resp BP Sys/Pham Pulse Ox Last 24 Hr 99.5 F-101.4 F 72-119 10-29 119-163/61-88 98-100 Intake & Output 03/27/18 03/28/18 03/28/18 23:59 07:59 15:59 Intake Total 2850 1173 Output Total 350 Balance 2500 1173 Intake: IV 2850 873 D5-1/2NS+20 MEQ KCL - 20 570 meq In 1,000 ml @ 75 mls/ hr IV ASDIR [facility] Rx#: [id number] DIPRIVAN - 1,000,000 mcg 252 In 100 ml @ 50 MCG/KG/MIN 30.264 mls/hr IVPB TITR [facility] Rx#:[id number] Sublimaze Injection - 500 51 Mcg In D5w - 90 ml @ 25 MCG/HR 5 mls/hr IVPB TITR [facility] Rx#:[id number] IVPB 300 Output: Urine 350 Davis 50 Other: Voiding Method Incontinent Indwelling Catheter Bowel Movement No Constitutional: Yes: Well Nourished, No Distress, Calm, Obese Eyes: Yes: Conjunctiva Clear, EOM Intact HENT: Yes: Atraumatic, Normocephalic Neck: Yes: Supple, Trachea Midline Cardiovascular: Yes: Regular Rate and Rhythm, S1, S2 Respiratory: Yes: Regular, CTA Bilaterally Gastrointestinal: Yes: Normal Bowel Sounds, Soft, Distention. No: Tenderness, Tenderness, Epigastrium, Tenderness, Rebound ...Rectal Exam: Yes: Deferred Genitourinary: No: CVA Tenderness - Left, CVA Tenderness - Right Breast(s): No: Discharge from Nipple, Nipple Inversion Musculoskeletal: No: Muscle Pain, Muscle Weakness Extremities: No: Cool, Cyanosis Integumentary: No: Jaundice, Laceration, Rash Neurological: Yes: Alert, Oriented, Pre-Existing Deficit ...Motor Strength: RUE, RLE (right sided weakness) Psychiatric: Yes: Alert, Oriented Labs: CBC, BMP 03/28/18 05:30 03/28/18 05:30 INR, PTT INR 1.64 (0.83-1.09) H 03/26/18 11:55 Microbiology 03/24/18 12:42 Blood - Peripheral Venous Blood Culture - Preliminary NO GROWTH OBTAINED AFTER 96 HOURS, INCUBATION TO CONTINUE FOR 1 DAYS. 03/24/18 12:42 Blood - Peripheral Venous Blood Culture - Preliminary NO GROWTH OBTAINED AFTER 96 HOURS, INCUBATION TO CONTINUE FOR 1 DAYS. 03/11/18 14:50 Blood - Peripheral Venous Blood Culture - Final NO GROWTH AFTER 5 DAYS INCUBATION 03/11/18 14:45 Blood - Peripheral Venous Blood Culture - Final NO GROWTH AFTER 5 DAYS INCUBATION 02/28/18 20:25 Blood - Peripheral Venous Blood Culture - Final NO GROWTH AFTER 5 DAYS INCUBATION 02/28/18 20:25 Blood - Peripheral Venous Blood Culture - Final NO GROWTH AFTER 5 DAYS INCUBATION 03/03/18 06:00 Stool Clostridium difficile Antigen (AMY) - Final 03/03/18 06:00 Stool Clostridium difficile Toxin Assay - Final 03/01/18 20:30 Nares - Mrsa Screen - Right MRSA Screen - Final NO MRSA ISOLATED 03/01/18 20:30 Nares - Mrsa Screen - Left MRSA Screen - Final NO MRSA ISOLATED 02/28/18 22:53 Urine - Urine Clean Catch Urine Culture - Final NO GROWTH OBTAINED 03/01/18 11:20 Urine For Antigen Detection Legionella Antigen - Final 03/01/18 11:20 Urine For Antigen Detection Streptococcus pneumoniae Antigen (M - Final 02/28/18 23:30 Nasopharyngeal Swab Influenza Types A,B Antigen - Final 02/28/18 23:30 Nasopharyngeal Swab - Final Problem List - Problems (1) Volvulus of sigmoid colon Assessment/Plan: 77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 POD #1 s/p sigmoid colectomy and end-colostomy ICU management Consider transfer to floor after extubation if stable Local wound care discontinue NGT start clears Aspiration precautions rest per primary team Code(s): K56.2 - VOLVULUS (2) Elevated troponin Code(s): R74.8 - ABNORMAL LEVELS OF OTHER SERUM ENZYMES (3) Hypoxemia Code(s): R09.02 - HYPOXEMIA (4) Pneumonia Code(s): J18.9 - PNEUMONIA, UNSPECIFIED ORGANISM (5) COPD (chronic obstructive pulmonary disease) Code(s): J44.9 - CHRONIC OBSTRUCTIVE PULMONARY DISEASE, UNSPECIFIED Qualifiers: Emphysema type: unspecified (6) Diabetes Code(s): E11.9 - TYPE 2 DIABETES MELLITUS WITHOUT COMPLICATIONS (7) Fecal retention Code(s): K59.00 - CONSTIPATION, UNSPECIFIED
--- NOTE | 2018-03-28 15:46 | PN ---
Progress Note (short form) - Note Progress Note: pepper s/p ex lap 03/27 with sigmoid colectomy , end colostomy and umbilical hernia repair extubated Vital Signs Period Temp Pulse Resp BP Sys/Pham Pulse Ox Last 24 Hr 99.5 F-101.4 F 72-119 10-29 119-163/61-88 98-100 cor-rrr lungs scattered rhonchi abd soft, +ostomy with some serous drainage midline incision ext trace edema +owen CBC, BMP 03/28/18 05:30 03/28/18 05:30 Microbiology 03/24/18 12:42 Blood - Peripheral Venous Blood Culture - Preliminary NO GROWTH OBTAINED AFTER 96 HOURS, INCUBATION TO CONTINUE FOR 1 DAYS. 03/24/18 12:42 Blood - Peripheral Venous Blood Culture - Preliminary NO GROWTH OBTAINED AFTER 96 HOURS, INCUBATION TO CONTINUE FOR 1 DAYS. 03/11/18 14:50 Blood - Peripheral Venous Blood Culture - Final NO GROWTH AFTER 5 DAYS INCUBATION 03/11/18 14:45 Blood - Peripheral Venous Blood Culture - Final NO GROWTH AFTER 5 DAYS INCUBATION 02/28/18 20:25 Blood - Peripheral Venous Blood Culture - Final NO GROWTH AFTER 5 DAYS INCUBATION 02/28/18 20:25 Blood - Peripheral Venous Blood Culture - Final NO GROWTH AFTER 5 DAYS INCUBATION 03/03/18 06:00 Stool Clostridium difficile Antigen (AMY) - Final 03/03/18 06:00 Stool Clostridium difficile Toxin Assay - Final 03/01/18 20:30 Nares - Mrsa Screen - Right MRSA Screen - Final NO MRSA ISOLATED 03/01/18 20:30 Nares - Mrsa Screen - Left MRSA Screen - Final NO MRSA ISOLATED 02/28/18 22:53 Urine - Urine Clean Catch Urine Culture - Final NO GROWTH OBTAINED 03/01/18 11:20 Urine For Antigen Detection Legionella Antigen - Final 03/01/18 11:20 Urine For Antigen Detection Streptococcus pneumoniae Antigen (M - Final 02/28/18 23:30 Nasopharyngeal Swab Influenza Types A,B Antigen - Final 02/28/18 23:30 Nasopharyngeal Swab - Final Current Medications Acetaminophen (Ofirmev Injection -) 1,000 mg IVPB Q6H PRN PRN Reason: PAIN LEVEL 1-5 AND/OR FEVER Last Admin: 03/28/18 12:26 Dose: 1,000 mg Albuterol Sulfate (Ventolin 0.083% Nebulizer Soln -) 1 amp NEB Q4H PRN PRN Reason: SHORT OF BREATH/WHEEZING Albuterol/Ipratropium (Duoneb -) 1 amp NEB RQID [facility] Last Admin: 03/28/18 11:17 Dose: 1 amp Amino Acids (Prosource No Carb Liquid Pkt) 30 ml PO BID@0800,1730 [facility] Last Admin: 03/28/18 09:10 Dose: Not Given Atorvastatin Calcium (Lipitor -) 40 mg PO HS [facility] Last Admin: 03/27/18 21:36 Dose: Not Given Potassium Chloride/Dextrose/Sod Cl (D5-1/2ns+20 Meq Kcl -) 20 meq in 1,000 mls @ 75 mls/hr IV ASDIR [facility] Last Admin: 03/28/18 01:26 Dose: Not Given Piperacillin Sod/Tazobactam (Sod 3.375 gm/ Dextrose) 50 mls @ 100 mls/hr IVPB Q8H-IV [facility]; Protocol Last Admin: 03/28/18 10:29 Dose: 100 mls/hr Propofol (Diprivan -) 1,000,000 mcg in 100 mls @ 30.264 mls/hr IVPB TITR [facility]; Protocol Last Titration: 03/28/18 09:45 Dose: 0 mcg/kg/min, 0 mls/hr Fentanyl 500 mcg/ Dextrose 100 mls @ 5 mls/hr IVPB TITR [facility] Stop: 03/28/18 17:14 Last Titration: 03/28/18 09:45 Dose: 0 mcg/hr, 0 mls/hr Insulin Aspart (Novolog Vial Sliding Scale -) 1 vial SQ [facility]; Protocol Last Admin: 03/28/18 10:26 Dose: 6 units Insulin Detemir (Levemir Vial) 22 units SQ [facility] Last Admin: 03/28/18 00:34 Dose: 22 units Lisinopril (Prinivil) 40 mg PO DAILY [facility] Last Admin: 03/28/18 09:10 Dose: Not Given Methyl Salicylate (Felix-Seaman -) 1 applic TP Q8H PRN PRN Reason: BODY ACHES Metoprolol Tartrate (Lopressor -) 50 mg PO BID [facility] Last Admin: 03/28/18 09:10 Dose: Not Given Multi-Ingredient Ointment (Zinc Oxide) 1 applic TP BID [facility] Last Admin: 03/28/18 11:54 Dose: 1 applic Pantoprazole Sodium (Protonix Iv) 40 mg IVPUSH DAILY [facility] Last Admin: 03/28/18 10:29 Dose: 40 mg Ranitidine HCl (Zantac -) 150 mg PO BID [facility] Last Admin: 03/28/18 09:11 Dose: Not Given a/p s/p sigmoid colectomy pod #1 post op fever encourage incentive spirometry afib- improved on meds Problem List - Problems (1) Sepsis Code(s): A41.9 - SEPSIS, UNSPECIFIED ORGANISM Qualifiers: Sepsis type: sepsis due to unspecified organism Qualified Code(s): A41.9 - Sepsis, unspecified organism (2) Pneumonia Code(s): J18.9 - PNEUMONIA, UNSPECIFIED ORGANISM (3) Hypoxemia Code(s): R09.02 - HYPOXEMIA (4) COPD exacerbation Code(s): J44.1 - CHRONIC OBSTRUCTIVE PULMONARY DISEASE W (ACUTE) EXACERBATION (5) Rapid atrial fibrillation Code(s): I48.91 - UNSPECIFIED ATRIAL FIBRILLATION (6) Elevated troponin Code(s): R74.8 - ABNORMAL LEVELS OF OTHER SERUM ENZYMES (7) Prolonged Q-T interval on ECG Code(s): R94.31 - ABNORMAL ELECTROCARDIOGRAM [ECG] [EKG]
[2018-03-28] MEDS ORDERED: BENZOIN/ALOE VERA/STORAX/TOLU 58 ML BOTTLE ONE (16:39)
[2018-03-28] MEDS: LABETALOL HCL 5 MG/1 ML (100MG/20 ML VIAL) IVPUSH ONE ×2 (20:12→22:01)
[2018-03-28] MEDS ORDERED: LISINOPRIL 20 MG TABLET (FP) PO ONE (20:15)
[2018-03-28] MEDS ORDERED: PT OWN MED DRAWER 7, Y5N ONE (21:04)
[2018-03-28] MEDS: ATORVASTATIN CA 40 MG TABLET (FP) PO SCH (21:06)
[2018-03-29] MEDS ORDERED: DEXTROSE 5%-WATER - 50 ML IVPB ONE ×3 (01:19→17:02)
[2018-03-29] MEDS ORDERED: PIPERACILLIN/TAZOBACTAM 3.375 GM VIAL IVPB ONE ×3 (01:19→17:02)
[2018-03-29] MEDS: PIPERACILLIN/TAZOB 3.375 GM 3.375 GM in DEXTROSE 5%-WATER - 50 ML IVPB SCH ×3 (01:31→17:07)
[2018-03-29] MEDS: INSULIN SLIDING SCALE (NOVOLOG) 1 VIAL SQ SCH ×4 (06:09→21:31)
--- NOTE | 2018-03-29 07:46 | PN ---
Physical Exam: SUBJECTIVE: Patient seen and examined at bedside. Per overnight team, pt needed NG tube to be placed again due to abd distension with multiple attempts to flush. Significant amount of drainage from NG tube noted ~600mL since NG tube placement overnight. Pt also found to be hypertensive in the 180s and was given Labetolol IVP. Pt also put back on home BP meds after which BP became stable in the 150s. All other vitals within normal limits. OBJECTIVE: Vital Signs Period Temp Pulse Resp BP Sys/Pham Pulse Ox Last 24 Hr 98.6 F-100.0 F 78-112 16-29 108-188/68-105 98-100 GENERAL: Extubated. Responds to commands. Opens eyes spontaneously. HEENT: AT/NC. Moist mucus membranes. NG tube in place. NECK: Supple, no LAD/JVD. LUNGS: Intubated. CTA B/L. No wheezes noted. HEART: Irregularly irregular. No murmurs noted. ABDOMEN: Soft, NT/ND. Ostomy bag in place, no blood in bag noted. Surgical dressing c/d/i. MUSCULOSKELETAL: 2/5 muscle strength in RUE, 5/5 muscle strenght in LUE. EXTREMITIES: No peripheral edema noted. NEUROLOGICAL: R sided neuro deficits. Responds to commands. SKIN: Warm, dry, normal turgor, no rashes or lesions noted. Laboratory Results - last 24 hr 03/28/18 03/28/18 03/28/18 00:31 05:26 05:30 Sodium 137 Potassium 3.6 Chloride 99 Carbon Dioxide 29 Anion Gap 9 BUN 7 Creatinine 0.9 Creat Clearance w eGFR > 60 POC Glucometer 259.14188 283.03284 Random Glucose 229 H Calcium 7.4 L Magnesium 2.1 Total Bilirubin 1.4 H AST 59 H ALT 59 Alkaline Phosphatase 129 H Total Protein 5.3 L Albumin 1.6 L 03/28/18 03/28/18 10:16 16:43 Sodium Potassium Chloride Carbon Dioxide Anion Gap BUN Creatinine Creat Clearance w eGFR POC Glucometer 256.52032 239.86173 Random Glucose Calcium Magnesium Total Bilirubin AST ALT Alkaline Phosphatase Total Protein Albumin Active Medications Generic Name Dose Route Start Last Admin Trade Name Freq PRN Reason Stop Dose Admin Acetaminophen 1,000 mg 03/28/18 02:30 03/28/18 12:26 Ofirmev Injection - IVPB 1,000 mg Q6H PRN Administration PAIN LEVEL 1-5 AND/OR FEVER Albuterol Sulfate 1 amp 03/27/18 16:47 Ventolin 0.083% Nebulizer Soln - NEB Q4H PRN SHORT OF BREATH/WHEEZING Albuterol/Ipratropium 1 amp 03/27/18 20:00 03/28/18 20:27 Duoneb - NEB 1 amp RQID [facility] Administration Amino Acids 30 ml 03/27/18 17:30 03/28/18 17:01 Prosource No Carb Liquid Pkt PO 30 ml BID@0800,1730 [facility] Administration Atorvastatin Calcium 40 mg 03/27/18 22:00 03/28/18 21:06 Lipitor - PO 40 mg HS [facility] Administration Potassium Chloride/Dextrose/Sod Cl 20 meq in 1,000 mls @ 75 mls/hr 03/27/18 16 :47 03/28/18 17:01 D5-1/2ns+20 Meq Kcl - IV 75 mls/hr ASDIR [facility] Administration Piperacillin Sod/Tazobactam 50 mls @ 100 mls/hr 03/27/18 18:00 03/29/18 01:31 Sod 3.375 gm/ Dextrose IVPB 100 mls/hr Q8H-IV [facility] Administration Protocol Propofol 1,000,000 mcg in 100 mls @ 30.264 mls/hr 03/27/18 17:15 03/28/18 21: 07 Diprivan - IVPB Not Given TITR [facility] Protocol 50 MCG/KG/MIN Insulin Aspart 1 vial 03/27/18 22:00 03/29/18 06:09 Novolog Vial Sliding Scale - SQ 4 units ACHS [facility] Administration Protocol Insulin Detemir 22 units 03/27/18 22:00 03/28/18 22:01 Levemir Vial SQ 22 units HS [facility] Administration Lisinopril 40 mg 03/28/18 10:00 03/28/18 09:10 Prinivil PO Not Given DAILY [facility] Methyl Salicylate 1 applic 03/27/18 16:47 Felix-Seaman - TP Q8H PRN BODY ACHES Metoprolol Tartrate 50 mg 03/27/18 22:00 03/28/18 21:07 Lopressor - PO Not Given BID [facility] Multi-Ingredient Ointment 1 applic 03/27/18 22:00 03/28/18 21:07 Zinc Oxide TP 1 applic BID [facility] Administration Pantoprazole Sodium 40 mg 03/28/18 10:00 03/28/18 10:29 Protonix Iv IVPUSH 40 mg DAILY [facility] Administration Ranitidine HCl 150 mg 03/27/18 22:00 03/28/18 21:06 Zantac - PO 150 mg BID [facility] Administration ASSESSMENT/PLAN: 78M w/ pmhx of HTN, HLD, CHF, CVA with residual right sided weakness, dysphagia , DM2, COPD admitted for sepsis 2/2 pna, s/p sigmoid colectomy, end colostomy, umbilical hernia repair POD#2. Neurology #History of CVA with residual right-sided weakness -continue ASA and atorvastatin -Extubated. Pulmonary #Pneumonia likely Aspiration left base infiltrate -Per ID, august d/c Zosyn if cleared by surg Cardiology #Atrial Fibrillation -Per cardio: Metoprolol 50 BID and uptitrate as needed; restart Eliquis when cleared by surg, may use heparin drip if needed #Diastolic CHF -Hold home lasix #Hypertension -Lisinopril 40 QD, Metoprolol 50 BID -monitor BP #Hyperlipidemia -Continue Atorvastatin 40mg PO HS #QTc prolongation: 810ms -Avoid agents that increase QTc GI #Sigmoid Volvulus s/p sigmoid colectomy, end ostomy, umbilical hernia repair, POD#1. -NPO for now, adv diet per surg recs -surg following -IS -Pain control -IV Tylenol for fever -Pt pulled out NG tube that was placed this morning. NG tube replaced this afternoon. CXR ordered. Renal #Hypokalemia -Today 3.7. Stable. -Replete PRN #Hypomagnesemia -Today 2.0. Stable. -Replete PRN. ID #Sepsis 2/2 RLL PNA -Per ID, august d/c Zosyn if cleared by surg. Endocrinology #DM -Insulin Levemir 22 units sq hs -ISS ACHS -BGMs ACHS Prophylaxis GI- Protonix 40 QD DVT- SCDs; restart Eliquis when cleared by surg FEN -D5-1/2NS -recheck lytes in AM -NPO except for meds; may need swallow eval lines -NG tube placement -ostomy -owen dispo -full code -transfer to med-surg Visit type - Emergency Visit Emergency Visit: Yes ED Registration Date: 02/28/18 Care time: The patient presented to the Emergency Department on the above date and was hospitalized for further evaluation of their emergent condition. - New Patient This patient is new to me today: No - Critical Care Critical Care patient: Yes Total Critical Care Time (in minutes): 36 Critical Care Statement: The care of this patient involved high complexity decision making to prevent further life threatening deterioration of the patient 's condition and/or to evaluate & treat vital organ system(s) failure or risk of failure.
[2018-03-29] MEDS: ALBUTEROL SO4 2.5/IPRATROPIUM 0.5 INH SOL 3 ML VIAL.NEB. NEB SCH ×4 (08:22→20:16)
[2018-03-29] MEDS: AMINO ACIDS/PROTEIN HYDROLYS 30 ML LIQUID.PKT PO SCH ×2 (08:24→17:08)
[2018-03-29] MEDS: ACETAMINOPHEN 1000 MG/100 ML VIAL (NON FORMULARY) IVPB PRN ×3 (08:37→23:05)
[2018-03-29] MEDS: D5-1/2NS+20 MEQ KCL - 20 MEQ/1,000 ML INFUS.BAG IV SCH ×2 (08:38→16:58)
[2018-03-29 08:46] LABS: BASO % 0.2 % (0-2.0); EOS % 0.7 % (0-4.5); HEMATOCRIT 29.9 % (35.4-49); HEMOGLOBIN 10.7 GM/dL (11.7-16.9); LYMPH % 12.2 % (8-40); MCH 32.2 pg (25.7-33.7); MCHC 35.9 g/dl (32.0-35.9); MEAN CELL VOLUME 89.8 fl (80-96); MEAN PLT VOLUME 9.1 fl (7.5-11.1); NEUT % 78.9 % (42.8-82.8); PLATELET COUNT 182 K/MM3 (134-434); RBC 3.33 M/mm3 (4.00-5.60); RDW 15.4 % (11.9-15.9)
--- NOTE | 2018-03-29 08:59 | PN ---
Progress Note (short form) - Note Progress Note: lalert s/p ex lap 03/27 with sigmoid colectomy , end colostomy and umbilical hernia repair extubated didnot tolerate feeds, NGT replaced overnight still with owen Vital Signs Period Temp Pulse Resp BP Sys/Pham Pulse Ox Last 24 Hr 98.6 F-100.0 F 78-112 16-29 108-188/68-105 98-100 cor-rrr lungs scattered rhonchi abd soft +ostomy minimal serous drainage midline incision with karon intact ext no edema +owen +ngt CBC, BMP 03/29/18 08:05 Microbiology 03/24/18 12:42 Blood - Peripheral Venous Blood Culture - Preliminary NO GROWTH OBTAINED AFTER 96 HOURS, INCUBATION TO CONTINUE FOR 1 DAYS. 03/24/18 12:42 Blood - Peripheral Venous Blood Culture - Preliminary NO GROWTH OBTAINED AFTER 96 HOURS, INCUBATION TO CONTINUE FOR 1 DAYS. 03/11/18 14:50 Blood - Peripheral Venous Blood Culture - Final NO GROWTH AFTER 5 DAYS INCUBATION 03/11/18 14:45 Blood - Peripheral Venous Blood Culture - Final NO GROWTH AFTER 5 DAYS INCUBATION 02/28/18 20:25 Blood - Peripheral Venous Blood Culture - Final NO GROWTH AFTER 5 DAYS INCUBATION 02/28/18 20:25 Blood - Peripheral Venous Blood Culture - Final NO GROWTH AFTER 5 DAYS INCUBATION 03/03/18 06:00 Stool Clostridium difficile Antigen (AMY) - Final 03/03/18 06:00 Stool Clostridium difficile Toxin Assay - Final 03/01/18 20:30 Nares - Mrsa Screen - Right MRSA Screen - Final NO MRSA ISOLATED 03/01/18 20:30 Nares - Mrsa Screen - Left MRSA Screen - Final NO MRSA ISOLATED 02/28/18 22:53 Urine - Urine Clean Catch Urine Culture - Final NO GROWTH OBTAINED 03/01/18 11:20 Urine For Antigen Detection Legionella Antigen - Final 03/01/18 11:20 Urine For Antigen Detection Streptococcus pneumoniae Antigen (M - Final 02/28/18 23:30 Nasopharyngeal Swab Influenza Types A,B Antigen - Final 02/28/18 23:30 Nasopharyngeal Swab - Final a/p s/p sigmoid colectomy pod #2 post op fever resolved please repeat cxray- if no infiltrate no objection to d/c zosyn if okay with surgery encourage incentive spirometry consider d/c owen afib- improved on meds Problem List - Problems (1) Sepsis Code(s): A41.9 - SEPSIS, UNSPECIFIED ORGANISM Qualifiers: Sepsis type: sepsis due to unspecified organism Qualified Code(s): A41.9 - Sepsis, unspecified organism (2) Pneumonia Code(s): J18.9 - PNEUMONIA, UNSPECIFIED ORGANISM (3) Hypoxemia Code(s): R09.02 - HYPOXEMIA (4) COPD exacerbation Code(s): J44.1 - CHRONIC OBSTRUCTIVE PULMONARY DISEASE W (ACUTE) EXACERBATION (5) Rapid atrial fibrillation Code(s): I48.91 - UNSPECIFIED ATRIAL FIBRILLATION (6) Elevated troponin Code(s): R74.8 - ABNORMAL LEVELS OF OTHER SERUM ENZYMES (7) Prolonged Q-T interval on ECG Code(s): R94.31 - ABNORMAL ELECTROCARDIOGRAM [ECG] [EKG]
[2018-03-29 09:04] LABS: ALBUMIN 1.6 g/dl (3.4-5.0); ALK PHOS 125 U/L (45-117); ANION GAP 8 MMOL/L (8-16); BILIRUBIN,TOTAL 0.8 mg/dL (0.2-1); BLOOD UREA NITROGEN 5 mg/dL (7-18); CALCIUM 7.6 mg/dL (8.5-10.1); CHLORIDE 101 mmol/L (98-107); CO2 28 mmol/L (21-32); CREATININE 0.7 mg/dL (0.55-1.3); GLUCOSE,RANDOM 171 mg/dL (74-106); PHOSPHOROUS 2.1 mg/dL (2.5-4.9); POTASSIUM 3.7 mmol/L (3.5-5.1); SGOT/AST 30 U/L (15-37); SGPT/ALT 42 U/L (13-61); SODIUM 137 mmol/L (136-145); TOT PROT 5.4 g/dl (6.4-8.2)
--- NOTE | 2018-03-29 09:58 | PN ---
Progress Note, Physician Chief Complaint: volvulus History of Present Illness: 77yo male PMH HTN, HLD, CHF, CVA with residual right sided weakness, dysphagia, DM2, COPD presented with weakness and fever 103 from NH. Remains weak, marginally responsive, on cardizem for Afib which is more rate controlled now. rectal tube was replaced because of recurrent colonic atony and distension. with the rectal tube removed today the patient is passing semiformed stool. Stable post operatively. - Current Medication List Current Medications: Active Medications Acetaminophen (Ofirmev Injection -) 1,000 mg IVPB Q6H PRN PRN Reason: PAIN LEVEL 1-5 AND/OR FEVER Last Admin: 03/29/18 08:37 Dose: 1,000 mg Albuterol Sulfate (Ventolin 0.083% Nebulizer Soln -) 1 amp NEB Q4H PRN PRN Reason: SHORT OF BREATH/WHEEZING Albuterol/Ipratropium (Duoneb -) 1 amp NEB RQID [facility] Last Admin: 03/29/18 08:22 Dose: 1 amp Amino Acids (Prosource No Carb Liquid Pkt) 30 ml PO BID@0800,1730 [facility] Last Admin: 03/29/18 08:24 Dose: Not Given Atorvastatin Calcium (Lipitor -) 40 mg PO HS [facility] Last Admin: 03/28/18 21:06 Dose: 40 mg Potassium Chloride/Dextrose/Sod Cl (D5-1/2ns+20 Meq Kcl -) 20 meq in 1,000 mls @ 75 mls/hr IV ASDIR [facility] Last Admin: 03/29/18 08:38 Dose: 75 mls/hr Piperacillin Sod/Tazobactam (Sod 3.375 gm/ Dextrose) 50 mls @ 100 mls/hr IVPB Q8H-IV [facility]; Protocol Last Admin: 03/29/18 01:31 Dose: 100 mls/hr Propofol (Diprivan -) 1,000,000 mcg in 100 mls @ 30.264 mls/hr IVPB TITR [facility]; Protocol Last Admin: 03/28/18 21:07 Dose: Not Given Insulin Aspart (Novolog Vial Sliding Scale -) 1 vial SQ ACHS [facility]; Protocol Last Admin: 03/29/18 06:09 Dose: 4 units Insulin Detemir (Levemir Vial) 22 units SQ HS [facility] Last Admin: 03/28/18 22:01 Dose: 22 units Lisinopril (Prinivil) 40 mg PO DAILY [facility] Last Admin: 03/28/18 09:10 Dose: Not Given Methyl Salicylate (Felix-Seaman -) 1 applic TP Q8H PRN PRN Reason: BODY ACHES Metoprolol Tartrate (Lopressor -) 50 mg PO BID [facility] Last Admin: 03/28/18 21:07 Dose: Not Given Multi-Ingredient Ointment (Zinc Oxide) 1 applic TP BID [facility] Last Admin: 03/28/18 21:07 Dose: 1 applic Pantoprazole Sodium (Protonix Iv) 40 mg IVPUSH DAILY [facility] Last Admin: 03/28/18 10:29 Dose: 40 mg Ranitidine HCl (Zantac -) 150 mg PO BID [facility] Last Admin: 03/28/18 21:06 Dose: 150 mg - Objective Vital Signs: Vital Signs Temperature 100 F H 03/29/18 07:45 Pulse Rate 101 H 03/29/18 07:45 Respiratory Rate 29 H 03/29/18 07:45 Blood Pressure 151/79 03/29/18 07:45 O2 Sat by Pulse Oximetry (%) 99 03/29/18 07:45 Vital Signs Period Temp Pulse Resp BP Sys/Pham Pulse Ox Last 24 Hr 98.6 F-100.0 F 78-112 16-29 108-188/68-105 98-100 Intake & Output 03/28/18 03/29/18 03/29/18 23:59 07:59 15:59 Intake Total 1370 1050 Output Total 800 Balance 570 1050 Weight 308 lb 9.6 oz Intake: IV 900 900 D5-1/2NS+20 MEQ KCL - 20 900 900 meq In 1,000 ml @ 75 mls/ hr IV ASDIR [facility] Rx#: [id number] IVPB 200 50 Oral 270 100 Output: Urine 800 Davis 800 Other: Voiding Method Indwelling Catheter Indwelling Catheter Body Mass Index (BMI) 33.7 Weight Measurement Method Built in [facility] Constitutional: Yes: Well Nourished, No Distress, Calm Eyes: Yes: Conjunctiva Clear, EOM Intact HENT: Yes: Atraumatic, Normocephalic Neck: Yes: Supple, Trachea Midline Cardiovascular: Yes: Regular Rate and Rhythm, S1, S2 Respiratory: Yes: Regular, CTA Bilaterally Gastrointestinal: Yes: Normal Bowel Sounds, Soft, Abdomen, Obese ...Rectal Exam: Yes: Deferred Genitourinary: No: CVA Tenderness - Left, CVA Tenderness - Right Musculoskeletal: No: Muscle Pain, Muscle Weakness Extremities: No: Cool, Cyanosis Edema: No Peripheral Pulses WNL: Yes Wound/Incision: Yes: Clean/Dry, Unapproximated, Other (colostomy empty no gas) Neurological: Yes: Alert, Oriented Psychiatric: Yes: Alert, Oriented Labs: CBC, BMP 03/29/18 08:05 03/29/18 08:05 INR, PTT INR 1.64 (0.83-1.09) H 03/26/18 11:55 Problem List - Problems (1) Volvulus of sigmoid colon Assessment/Plan: 77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 POD #2 s/p sigmoid colectomy and end-colostomy ICU management Consider transfer to floor after extubation if stable Local wound care discontinue NGT start clears Aspiration precautions rest per primary team Code(s): K56.2 - VOLVULUS (2) Elevated troponin Code(s): R74.8 - ABNORMAL LEVELS OF OTHER SERUM ENZYMES (3) Hypoxemia Code(s): R09.02 - HYPOXEMIA (4) Pneumonia Code(s): J18.9 - PNEUMONIA, UNSPECIFIED ORGANISM (5) COPD (chronic obstructive pulmonary disease) Code(s): J44.9 - CHRONIC OBSTRUCTIVE PULMONARY DISEASE, UNSPECIFIED Qualifiers: Emphysema type: unspecified (6) Diabetes Code(s): E11.9 - TYPE 2 DIABETES MELLITUS WITHOUT COMPLICATIONS (7) Fecal retention Code(s): K59.00 - CONSTIPATION, UNSPECIFIED
--- NOTE | 2018-03-29 10:13 | PN ---
Progress Note (short form) - Note Progress Note: POD #1- s/p sigmoid colectomy , colostomy off propofol extubated but had to be NPO again-- has NG awake no distress no agitation Vital Signs - 24 hr 03/28/18 03/28/18 03/28/18 20:00 21:00 22:00 Temperature 99.2 F Pulse Rate 103 H 97 H Respiratory 25 H 24 H 26 H Rate Blood Pressure 188/105 H 122/68 O2 Sat by Pulse 99 Oximetry (%) 03/29/18 03/29/18 03/29/18 00:00 02:00 04:00 Temperature 98.6 F Pulse Rate 79 88 78 Respiratory 26 H 24 H 24 H Rate Blood Pressure 136/103 H 141/86 157/69 O2 Sat by Pulse Oximetry (%) 03/29/18 03/29/18 03/29/18 06:00 07:45 10:00 Temperature 98.9 F 100 F H 100.3 F H Pulse Rate 111 H 101 H 95 H Respiratory 28 H 29 H 24 H Rate Blood Pressure 108/79 151/79 130/62 O2 Sat by Pulse 99 Oximetry (%) 03/29/18 03/29/18 03/29/18 12:00 14:00 16:00 Temperature 101.2 F H 99.5 F Pulse Rate 77 87 92 H Respiratory 23 H 25 H 26 H Rate Blood Pressure 139/76 161/80 133/81 O2 Sat by Pulse Oximetry (%) 03/29/18 18:00 Temperature Pulse Rate 79 Respiratory 21 H Rate Blood Pressure 149/59 L O2 Sat by Pulse Oximetry (%) Current Medications Generic Name Dose Route Start Last Admin Trade Name Freq PRN Reason Stop Dose Admin Albuterol Sulfate 1 amp 03/27/18 16:47 Ventolin 0.083% Nebulizer Soln - NEB Q4H PRN SHORT OF BREATH/WHEEZING Albuterol/Ipratropium 1 amp 03/27/18 20:00 03/29/18 16:23 Duoneb - NEB 1 amp RQID FLORIN Administration Amino Acids 30 ml 03/27/18 17:30 03/29/18 17:08 Prosource No Carb Liquid Pkt PO Not Given BID@0800,1730 [facility] Apixaban 5 mg 03/29/18 22:00 Eliquis - PO BID [facility]ORIN Atorvastatin Calcium 40 mg 03/27/18 22:00 03/28/18 21:06 Lipitor - PO 40 mg HS [facility] Administration Piperacillin Sod/Tazobactam 50 mls @ 100 mls/hr 03/27/18 18:00 03/29/18 17:07 Sod 3.375 gm/ Dextrose IVPB 100 mls/hr Q8H-IV [facility] Administration Protocol Sodium Chloride 1,000 mls @ 1,000 mls/hr 03/29/18 17:55 03/29/18 18:03 Normal Saline - IV 03/29/18 18:54 1,000 mls/hr ASDIR STA Administration Potassium Chloride/Dextrose/Sod Cl 20 meq in 1,000 mls @ 75 mls/hr 03/29/18 18 :00 03/29/18 18:04 D5-1/2ns+20 Meq Kcl - IV Not Given ASDIR [facility]OR[facility] Insulin Aspart 1 vial 03/27/18 22:00 03/29/18 16:58 Novolog Vial Sliding Scale - SQ Not Given ACHS [facility] Protocol Insulin Detemir 22 units 03/27/18 22:00 03/28/18 22:01 Levemir Vial SQ 22 units HS [facility] Administration Lisinopril 40 mg 03/28/18 10:00 03/29/18 11:00 Prinivil PO 40 mg DAILY [facility] Administration Methyl Salicylate 1 applic 03/27/18 16:47 Felix-Seaman - TP Q8H PRN BODY ACHES Metoprolol Tartrate 50 mg 03/27/18 22:00 03/29/18 11:00 Lopressor - PO 50 mg BID [facility] Administration Multi-Ingredient Ointment 1 applic 03/27/18 22:00 03/29/18 11:25 Zinc Oxide TP Not Given BID [facility] Pantoprazole Sodium 40 mg 03/28/18 10:00 03/29/18 11:00 Protonix Iv IVPUSH 40 mg DAILY [facility] Administration Ranitidine HCl 150 mg 03/27/18 22:00 03/29/18 11:25 Zantac - PO Not Given BID [facility] Laboratory Results - last 24 hr 03/28/18 03/29/18 03/29/18 21:53 06:00 07:50 WBC RBC Hgb Hct MCV MCH MCHC RDW Plt Count MPV Absolute Neuts (auto) Neutrophils % Lymphocytes % Monocytes % Eosinophils % Basophils % Nucleated RBC % Sodium Potassium Chloride Carbon Dioxide Anion Gap BUN Creatinine Creat Clearance w eGFR POC Glucometer 200.74655 230.11130 208.97407 Random Glucose Calcium Phosphorus Magnesium Total Bilirubin AST ALT Alkaline Phosphatase Total Protein Albumin 03/29/18 03/29/18 03/29/18 08:05 08:05 11:30 WBC 14.0 H RBC 3.33 L Hgb 10.7 L Hct 29.9 L MCV 89.8 MCH 32.2 MCHC 35.9 RDW 15.4 Plt Count 182 MPV 9.1 Absolute Neuts (auto) 11.0 H Neutrophils % 78.9 Lymphocytes % 12.2 Monocytes % 8.0 Eosinophils % 0.7 Basophils % 0.2 Nucleated RBC % 0 Sodium 137 Potassium 3.7 Chloride 101 Carbon Dioxide 28 Anion Gap 8 BUN 5 L Creatinine 0.7 Creat Clearance w eGFR > 60 POC Glucometer 169.91016 Random Glucose 171 H Calcium 7.6 L Phosphorus 2.1 L Magnesium 2.0 Total Bilirubin 0.8 AST 30 ALT 42 Alkaline Phosphatase 125 H Total Protein 5.4 L Albumin 1.6 L 03/29/18 16:58 WBC RBC Hgb Hct MCV MCH MCHC RDW Plt Count MPV Absolute Neuts (auto) Neutrophils % Lymphocytes % Monocytes % Eosinophils % Basophils % Nucleated RBC % Sodium Potassium Chloride Carbon Dioxide Anion Gap BUN Creatinine Creat Clearance w eGFR POC Glucometer 164.49498 Random Glucose Calcium Phosphorus Magnesium Total Bilirubin AST ALT Alkaline Phosphatase Total Protein Albumin intubated S1 S2 irregular Lungs decreased ABd- soft, NT, dressing noted in midline no bowel sounds colostomy-- serous fluid edema+ PLAN can not tolerate PO continue with antibiotics iv fluids NPO Problem List - Problems (1) Demand ischemia Code(s): I24.8 - OTHER FORMS OF ACUTE ISCHEMIC HEART DISEASE (2) Elevated troponin Code(s): R74.8 - ABNORMAL LEVELS OF OTHER SERUM ENZYMES (3) Pneumonia Code(s): J18.9 - PNEUMONIA, UNSPECIFIED ORGANISM (4) Rapid atrial fibrillation Code(s): I48.91 - UNSPECIFIED ATRIAL FIBRILLATION (5) Sepsis Code(s): A41.9 - SEPSIS, UNSPECIFIED ORGANISM Qualifiers: Sepsis type: sepsis due to unspecified organism Qualified Code(s): A41.9 - Sepsis, unspecified organism
[2018-03-29] MEDS: METOPROLOL TARTRATE 50 MG TABLET (FP) PO SCH ×2 (11:00→21:19)
[2018-03-29] MEDS: LISINOPRIL 20 MG TABLET (FP) PO SCH (11:00)
[2018-03-29] MEDS: PANTOPRAZOLE SODIUM 40 MG VIAL IVPUSH SCH (11:00)
--- NOTE | 2018-03-29 11:22 | PN ---
Progress Note, Physician History of Present Illness: POD#2 open sigmoid colectomy, rate-controlled afib, passing stools. - Current Medication List Current Medications: Active Medications Acetaminophen (Ofirmev Injection -) 1,000 mg IVPB Q6H PRN PRN Reason: PAIN LEVEL 1-5 AND/OR FEVER Last Admin: 03/29/18 08:37 Dose: 1,000 mg Albuterol Sulfate (Ventolin 0.083% Nebulizer Soln -) 1 amp NEB Q4H PRN PRN Reason: SHORT OF BREATH/WHEEZING Albuterol/Ipratropium (Duoneb -) 1 amp NEB RQID [facility] Last Admin: 03/29/18 08:22 Dose: 1 amp Amino Acids (Prosource No Carb Liquid Pkt) 30 ml PO BID@0800,1730 [facility] Last Admin: 03/29/18 08:24 Dose: Not Given Atorvastatin Calcium (Lipitor -) 40 mg PO HS [facility] Last Admin: 03/28/18 21:06 Dose: 40 mg Potassium Chloride/Dextrose/Sod Cl (D5-1/2ns+20 Meq Kcl -) 20 meq in 1,000 mls @ 75 mls/hr IV ASDIR [facility] Last Admin: 03/29/18 08:38 Dose: 75 mls/hr Piperacillin Sod/Tazobactam (Sod 3.375 gm/ Dextrose) 50 mls @ 100 mls/hr IVPB Q8H-IV [facility]; Protocol Last Admin: 03/29/18 01:31 Dose: 100 mls/hr Propofol (Diprivan -) 1,000,000 mcg in 100 mls @ 30.264 mls/hr IVPB TITR [facility]; Protocol Last Admin: 03/28/18 21:07 Dose: Not Given Insulin Aspart (Novolog Vial Sliding Scale -) 1 vial SQ ACHS [facility]; Protocol Last Admin: 03/29/18 06:09 Dose: 4 units Insulin Detemir (Levemir Vial) 22 units SQ HS [facility] Last Admin: 03/28/18 22:01 Dose: 22 units Lisinopril (Prinivil) 40 mg PO DAILY [facility] Last Admin: 03/28/18 09:10 Dose: Not Given Methyl Salicylate (Felix-Seaman -) 1 applic TP Q8H PRN PRN Reason: BODY ACHES Metoprolol Tartrate (Lopressor -) 50 mg PO BID [facility] Last Admin: 03/28/18 21:07 Dose: Not Given Multi-Ingredient Ointment (Zinc Oxide) 1 applic TP BID [facility] Last Admin: 03/28/18 21:07 Dose: 1 applic Pantoprazole Sodium (Protonix Iv) 40 mg IVPUSH DAILY [facility] Last Admin: 03/28/18 10:29 Dose: 40 mg Ranitidine HCl (Zantac -) 150 mg PO BID [facility] Last Admin: 03/28/18 21:06 Dose: 150 mg - Objective Vital Signs: Vital Signs Temperature 100.3 F H 03/29/18 10:00 Pulse Rate 95 H 03/29/18 10:00 Respiratory Rate 24 H 03/29/18 10:00 Blood Pressure 130/62 03/29/18 10:00 O2 Sat by Pulse Oximetry (%) 99 03/29/18 07:45 Constitutional: Yes: No Distress, Calm, Thin Neck: Yes: Supple Cardiovascular: Yes: Pulse Irregular Respiratory: Yes: Regular, Diminished, On Nasal O2 Gastrointestinal: Yes: Soft, Hypoactive Bowel Sounds Edema: No Labs: CBC, BMP 03/29/18 08:05 03/29/18 08:05 INR, PTT INR 1.64 (0.83-1.09) H 03/26/18 11:55 - ....Imaging EKG: Report Reviewed (Tele: Afib) Problem List - Problems (1) Elevated troponin Code(s): R74.8 - ABNORMAL LEVELS OF OTHER SERUM ENZYMES (2) Rapid atrial fibrillation Code(s): I48.91 - UNSPECIFIED ATRIAL FIBRILLATION (3) Diastolic dysfunction Code(s): I51.9 - HEART DISEASE, UNSPECIFIED (4) H/O: CVA (cerebrovascular accident) Code(s): Z86.73 - PRSNL HX OF TIA (TIA), AND CEREB INFRC W/O RESID DEFICITS (5) Hyperlipidemia Code(s): E78.5 - HYPERLIPIDEMIA, UNSPECIFIED Qualifiers: Hyperlipidemia type: pure hypercholesterolemia Qualified Code(s): E78.00 - Pure hypercholesterolemia, unspecified; E78.0 - Pure hypercholesterolemia (6) Hypertension Code(s): I10 - ESSENTIAL (PRIMARY) HYPERTENSION Qualifiers: Hypertension type: essential hypertension Qualified Code(s): I10 - Essential (primary) hypertension (7) Pneumonia Code(s): J18.9 - PNEUMONIA, UNSPECIFIED ORGANISM Qualifiers: Pneumonia type: due to unspecified organism Laterality: right Lung location: lower lobe of lung Qualified Code(s): J18.1 - Lobar pneumonia, unspecified organism (8) Toxic metabolic encephalopathy Code(s): G92 - TOXIC ENCEPHALOPATHY (9) Demand ischemia Code(s): I24.8 - OTHER FORMS OF ACUTE ISCHEMIC HEART DISEASE (10) Premature ventricular contraction Code(s): I49.3 - VENTRICULAR PREMATURE DEPOLARIZATION (11) Volvulus of descending colon Code(s): K56.2 - VOLVULUS (12) Chronic anticoagulation Code(s): Z79.01 - RETIREMENT (CURRENT) USE OF ANTICOAGULANTS (13) History of open sigmoidectomy Code(s): Z98.890 - OTHER SPECIFIED POSTPROCEDURAL STATES; Z90.49 - ACQUIRED ABSENCE OF OTHER SPECIFIED PARTS OF DIGESTIVE TRACT Assessment/Plan 12/20/2017 Echo: Normal LV size and fxn, tr MR, TR 1. Acute Hypoxic Respiratory Failure and right lower lobe aspiration pneumonia 2. Intermittent sigmoid volvulus post rectal tube decompression and now POD#2 sigmoid colectomy, colostomy and umbilical hernia repair 3. 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 Diastolic LV dysfunction with clinical class 0-I NYHA classification LV failure, compensated/euvolemic 5. Paroxysmal atrial fibrillation [id number] score 7 6. Toxic-metabolic encephalopathy 7. History of CVA with residual right-sided weakness PLAN: 1. Advancing diet as tolerated, local wound care 2. Empiric antibiotic coverage 3. Continue Lopressor 50 mg BID 4. Restart Lisinopril 40 mg QD and Lipitor 40 qd when feasible 5. Resume Eliquis 5 mg BID once post-op hemostasis achieved
[2018-03-29] MEDS: ZINC OXIDE 20% TOPICAL OINTMENT 30 GM TUBE TP SCH ×2 (11:25→21:32)
[2018-03-29] MEDS: RANITIDINE HCL 150 MG TABLET (FP) PO SCH ×2 (11:25→21:19)
--- NOTE | 2018-03-29 12:49 | PN ---
Teaching Attending Note Name of Resident: Riri Malagon ATTENDING PHYSICIAN STATEMENT I saw and evaluated the patient. I reviewed the resident's note and discussed the case with the resident. I agree with the resident's findings and plan as documented. SUBJECTIVE: Pt seen and examined in the ICU. Somnolent but arousable. Low grade temps overnight. OBJECTIVE: Vital Signs Period Temp Pulse Resp BP Sys/Pham Pulse Ox Last 24 Hr 98.6 F-100.3 F 78-111 17-29 108-188/62-105 99-100 Intake & Output 03/26/18 03/27/18 03/28/18 03/29/18 23:59 23:59 23:59 23:59 Intake Total 5360 3425 2643 1050 Output Total 360 1200 Balance 5360 3065 1443 1050 Weight 96.298 kg 100.879 kg 139.979 kg Gen: somnolent but arousable Heart: irregular Lung: bilateral scattered rhonchi Abd: soft, +ostomy pink Ext: no edema CBC, BMP 03/29/18 08:05 03/29/18 08:05 Active Medications Acetaminophen (Ofirmev Injection -) 1,000 mg IVPB Q6H PRN PRN Reason: PAIN LEVEL 1-5 AND/OR FEVER Last Admin: 03/29/18 08:37 Dose: 1,000 mg Albuterol Sulfate (Ventolin 0.083% Nebulizer Soln -) 1 amp NEB Q4H PRN PRN Reason: SHORT OF BREATH/WHEEZING Albuterol/Ipratropium (Duoneb -) 1 amp NEB RQID [facility] Last Admin: 03/29/18 08:22 Dose: 1 amp Amino Acids (Prosource No Carb Liquid Pkt) 30 ml PO BID@0800,1730 [facility] Last Admin: 03/29/18 08:24 Dose: Not Given Atorvastatin Calcium (Lipitor -) 40 mg PO HS [facility] Last Admin: 03/28/18 21:06 Dose: 40 mg Potassium Chloride/Dextrose/Sod Cl (D5-1/2ns+20 Meq Kcl -) 20 meq in 1,000 mls @ 75 mls/hr IV ASDIR [facility] Last Admin: 03/29/18 08:38 Dose: 75 mls/hr Piperacillin Sod/Tazobactam (Sod 3.375 gm/ Dextrose) 50 mls @ 100 mls/hr IVPB Q8H-IV [facility]; Protocol Last Admin: 03/29/18 11:00 Dose: 100 mls/hr Propofol (Diprivan -) 1,000,000 mcg in 100 mls @ 30.264 mls/hr IVPB TITR [facility]; Protocol Last Admin: 03/28/18 21:07 Dose: Not Given Insulin Aspart (Novolog Vial Sliding Scale -) 1 vial SQ ACHS [facility]; Protocol Last Admin: 03/29/18 11:30 Dose: Not Given Insulin Detemir (Levemir Vial) 22 units SQ HS [facility] Last Admin: 03/28/18 22:01 Dose: 22 units Lisinopril (Prinivil) 40 mg PO DAILY [facility] Last Admin: 03/29/18 11:00 Dose: 40 mg Methyl Salicylate (Felix-Seaman -) 1 applic TP Q8H PRN PRN Reason: BODY ACHES Metoprolol Tartrate (Lopressor -) 50 mg PO BID [facility] Last Admin: 03/29/18 11:00 Dose: 50 mg Multi-Ingredient Ointment (Zinc Oxide) 1 applic TP BID [facility] Last Admin: 03/29/18 11:25 Dose: Not Given Pantoprazole Sodium (Protonix Iv) 40 mg IVPUSH DAILY [facility] Last Admin: 03/29/18 11:00 Dose: 40 mg Ranitidine HCl (Zantac -) 150 mg PO BID [facility] Last Admin: 03/29/18 11:25 Dose: Not Given ASSESSMENT AND PLAN: s/p Acute Hypoxic Respiratory Failure Pneumonia likely Aspiration Sigmoid Volvulus s/p ex-lap/sigmoid colectomy/end colostomy Sepsis resolved LV Diastolic Dysfunction +Troponins likely Demand Ischemia Paroxysmal Atrial Fibrillation h/o CVA - continue antibiotics per ID - O2 to keep SpO2 >90% - inhaled bronchodilators - aspiration precautions - rate control - resume anticoagulation when ok with surgery - DVT prophylaxis - can monitor on surgical floor
--- NOTE | 2018-03-29 15:51 | PATH ---
Surgical Pathology Report Patient Name: BLAIR ALLISON [facility]. Rec. #: [id number] /Age/Gender: 1940 (Age: 78) / M Account: [id number] Location: ICU [employer] Taken: 03/27/2018 Received: 03/28/2018 Reported: 03/29/2018 Physicians: Ottoniel Carlson M.D. Specimen(s) Received A: SIGMOID COLON B: UMBILICAL HERNIA SAC Clinical History Volvulus Final Diagnosis A. SIGMOID COLON, RESECTION: SEGMENT OF COLON WITH DILATION AND FOCAL TRANSMURAL THINNING OF BOWEL WALL. SURGICAL MARGINS ARE VIABLE. B. UMBILICAL HERNIA SAC, REPAIR: CONSISTENT WITH HERNIA SAC WITH FOCAL ACUTE INFLAMMATION. Electronically Signed Milly Ronquillo M.D. Gross Description A. Received in formalin labeled "sigmoid colon," is a 33 cm in length dilated portion of colon with 2 stapled mucosal margins and moderate attached pericolonic adipose tissue. There is an undesignated suture present at the mucosal margin of the more dilated end. The serosa is chaudhari-pink and smooth. The lumen is dilated and contains abundant fecal material. The mucosa is chaudhari with markedly flattened folds. No mucosal masses are identified. The bowel wall is focally thinned. Certified Orthotic Fitter sections are submitted in 6 cassettes as follows: 1-stapled mucosal margin with suture; 2-opposing mucosal margin; 7-0-bchkncyufnpogc bowel. B. Received in formalin labeled "umbilical hernia sac," is a 4.5 x 3.0 x 2.7 cm portion of yellow, lobulated adipose tissue which is surfaced by chaudhari-rodriguez fibromembranous tissue, consistent with a hernia sac. A sales representative business courses section is submitted in one cassette. /03/28/2018 saudi03/28/2018
[2018-03-29] MEDS ORDERED: DEXTROSE 5%-0.45% SALINE 1,000 ML IV ONE ×2 (17:45)
[2018-03-29] MEDS ORDERED: SODIUM CHLORIDE 1,000 ML IV STA (17:55)
[2018-03-29] MEDS ORDERED: D5-1/2NS+20 MEQ KCL - 20 MEQ/1,000 ML INFUS.BAG IV SCH (18:00)
[2018-03-29] MEDS: PROPOFOL 1,000,000 MCG/100 ML VIAL IVPB SCH (18:01)
[2018-03-29] MEDS: APIXABAN 5 MG TABLET PO SCH (21:20)
[2018-03-29] MEDS: ATORVASTATIN CA 40 MG TABLET (FP) PO SCH (21:20)
[2018-03-29] MEDS: INSULIN (LEVEMIR) 100 UNITS/ML UNITS SQ SCH (21:21)
[2018-03-30] MEDS ORDERED: DEXTROSE 5%-WATER - 50 ML IVPB ONE (01:57)
[2018-03-30] MEDS ORDERED: PIPERACILLIN/TAZOBACTAM 3.375 GM VIAL IVPB ONE (01:57)
[2018-03-30] MEDS: PIPERACILLIN/TAZOB 3.375 GM 3.375 GM in DEXTROSE 5%-WATER - 50 ML IVPB SCH (02:02)
[2018-03-30 06:13] LABS: BASO % 0.3 % (0-2.0); HEMATOCRIT 31.3 % (35.4-49); HEMOGLOBIN 10.4 GM/dL (11.7-16.9); LYMPH % 13.3 % (8-40); MCH 30.4 pg (25.7-33.7); MCHC 33.3 g/dl (32.0-35.9); MEAN CELL VOLUME 91.3 fl (80-96); MONO % 8.4 % (3.8-10.2); PLATELET COUNT 204 K/MM3 (134-434); RBC 3.43 M/mm3 (4.00-5.60); RDW 15.2 % (11.9-15.9); WHITE BLOOD COUNT 16.7 K/mm3 (4.0-10.0)
[2018-03-30] MEDS: INSULIN SLIDING SCALE (NOVOLOG) 1 VIAL SQ SCH ×4 (06:32→22:00)
[2018-03-30 06:35] LABS: ALBUMIN 1.6 g/dl (3.4-5.0); ALK PHOS 136 U/L (45-117); ANION GAP 6 MMOL/L (8-16); BILIRUBIN,TOTAL 0.9 mg/dL (0.2-1); BLOOD UREA NITROGEN 5 mg/dL (7-18); CALCIUM 7.7 mg/dL (8.5-10.1); CHLORIDE 100 mmol/L (98-107); CO2 33 mmol/L (21-32); CREATININE 0.6 mg/dL (0.55-1.3); GLUCOSE,RANDOM 92 mg/dL (74-106); MAGNESIUM 1.8 mg/dL (1.8-2.4); PHOSPHOROUS 2.9 mg/dL (2.5-4.9); POTASSIUM 3.5 mmol/L (3.5-5.1); SGOT/AST 26 U/L (15-37); SGPT/ALT 33 U/L (13-61); SODIUM 139 mmol/L (136-145); TOT PROT 5.3 g/dl (6.4-8.2)
[2018-03-30] MEDS: ACETAMINOPHEN 1000 MG/100 ML VIAL (NON FORMULARY) IVPB PRN ×2 (06:36→16:25)
[2018-03-30] MEDS: ALBUTEROL SO4 2.5/IPRATROPIUM 0.5 INH SOL 3 ML VIAL.NEB. NEB SCH ×4 (08:00→20:24)
--- NOTE | 2018-03-30 08:07 | PN ---
Physical Exam: SUBJECTIVE: Patient seen and examined. No acute events overnight. OBJECTIVE: Vital Signs Period Temp Pulse Resp BP Sys/Pham Pulse Ox Last 24 Hr 99.5 F-101.2 F 73-96 14-26 130-182/59-95 96 GENERAL: Responds to commands. Comfortable. HEENT: AT/NC. Moist mucus membranes. NG tube in place. NECK: Supple, no LAD/JVD. LUNGS: Intubated. CTA B/L. No wheezes noted. HEART: Irregularly irregular. No murmurs noted. ABDOMEN: Soft, NT/ND. Ostomy bag in place, no blood in bag noted. Surgical dressing c/d/i. MUSCULOSKELETAL: 2/5 muscle strength in RUE, 5/5 muscle strength in LUE. EXTREMITIES: No peripheral edema noted. NEUROLOGICAL: R sided neuro deficits. Responds to commands. SKIN: Warm, dry, normal turgor, no rashes or lesions noted. CBCD WBC 16.7 K/mm3 (4.0-10.0) H 03/30/18 05:30 RBC 3.43 M/mm3 (4.00-5.60) L 03/30/18 05:30 Hgb 10.4 GM/dL (11.7-16.9) L 03/30/18 05:30 Hct 31.3 % (35.4-49) L 03/30/18 05:30 MCV 91.3 fl (80-96) 03/30/18 05:30 MCHC 33.3 g/dl (32.0-35.9) 03/30/18 05:30 RDW 15.2 % (11.9-15.9) 03/30/18 05:30 Plt Count 204 K/MM3 (134-434) 03/30/18 05:30 MPV 9.0 fl (7.5-11.1) 03/30/18 05:30 CMP Sodium 139 mmol/L (136-145) 03/30/18 05:30 Potassium 3.5 mmol/L (3.5-5.1) 03/30/18 05:30 Chloride 100 mmol/L (98-107) 03/30/18 05:30 Carbon Dioxide 33 mmol/L (21-32) H 03/30/18 05:30 Anion Gap 6 MMOL/L (8-16) L 03/30/18 05:30 BUN 5 mg/dL (7-18) L 03/30/18 05:30 Creatinine 0.6 mg/dL (0.55-1.3) 03/30/18 05:30 Creat Clearance w eGFR > 60 (>60) 03/30/18 05:30 Calcium 7.7 mg/dL (8.5-10.1) L 03/30/18 05:30 Total Bilirubin 0.9 mg/dL (0.2-1) 03/30/18 05:30 AST 26 U/L (15-37) 03/30/18 05:30 ALT 33 U/L (13-61) 03/30/18 05:30 Alkaline Phosphatase 136 U/L (45-117) H 03/30/18 05:30 Total Protein 5.3 g/dl (6.4-8.2) L 03/30/18 05:30 Albumin 1.6 g/dl (3.4-5.0) L 03/30/18 05:30 Active Medications Acetaminophen (Ofirmev Injection -) 1,000 mg IVPB Q6H PRN PRN Reason: pain 1-5 or fever Last Admin: 03/30/18 06:36 Dose: 1,000 mg Albuterol Sulfate (Ventolin 0.083% Nebulizer Soln -) 1 amp NEB Q4H PRN PRN Reason: SHORT OF BREATH/WHEEZING Albuterol/Ipratropium (Duoneb -) 1 amp NEB RQID [facility] Last Admin: 03/29/18 20:16 Dose: 1 amp Amino Acids (Prosource No Carb Liquid Pkt) 30 ml PO BID@0800,1730 [facility] Last Admin: 03/29/18 17:08 Dose: Not Given Apixaban (Eliquis -) 5 mg PO BID [facility] Last Admin: 03/29/18 21:20 Dose: 5 mg Potassium Chloride/Dextrose/Sod Cl (D5-1/2ns+20 Meq Kcl -) 20 meq in 1,000 mls @ 100 mls/hr IV ASDIR [facility] Insulin Aspart (Novolog Vial Sliding Scale -) 1 vial SQ ACHS [facility]; Protocol Last Admin: 03/30/18 06:32 Dose: Not Given Lisinopril (Prinivil) 40 mg PO DAILY [facility] Last Admin: 03/29/18 11:00 Dose: 40 mg Methyl Salicylate (Felix-Seaman -) 1 applic TP Q8H PRN PRN Reason: BODY ACHES Metoprolol Tartrate (Lopressor -) 50 mg PO BID [facility] Last Admin: 03/29/18 21:19 Dose: 50 mg Morphine Sulfate (Morphine Sulfate) 4 mg IVPUSH Q4H PRN PRN Reason: PAIN LEVEL 6-10 Multi-Ingredient Ointment (Zinc Oxide) 1 applic TP BID [facility] Last Admin: 03/29/18 21:32 Dose: 1 applic Pantoprazole Sodium (Protonix Iv) 40 mg IVPUSH DAILY [facility] Last Admin: 03/29/18 11:00 Dose: 40 mg ASSESSMENT/PLAN: 78M w/ pmhx of HTN, HLD, CHF, CVA with residual right sided weakness, dysphagia , DM2, COPD admitted for sepsis 2/2 pna, s/p sigmoid colectomy, end colostomy, umbilical hernia repair POD#3 (03/27/18). Neurology #History of CVA with residual right-sided weakness -continue ASA and atorvastatin -s/p extubation. Pulmonary #Pneumonia likely Aspiration left base infiltrate -IV Abx dc'd. Cardiology #Atrial Fibrillation -Per cardio: Metoprolol 50 BID and uptitrate as needed; -Eliquis 5 PO BID #Diastolic CHF -Hold home lasix #Hypertension -Lisinopril 40 QD, Metoprolol 50 BID -monitor BP #Hyperlipidemia -Continue Atorvastatin 40mg PO HS #QTc prolongation: 810ms -Avoid agents that increase QTc GI #Sigmoid Volvulus s/p sigmoid colectomy, end ostomy, umbilical hernia repair, POD#3 (03/27/18). -NPO except for meds for now -IS -Pain control -IV Tylenol for fever -NG tube in place -Per speech, recommended pt to remain NPO for now Renal #Hypokalemia -Stable. Replete PRN #Hypomagnesemia -Stable. Replete PRN. ID #Sepsis 2/2 RLL PNA -Resolved. OK to DC IV abx per ID. Endocrinology #DM -ISS ACHS -BGMs ACHS -hold long-acting insulin Prophylaxis GI- Protonix 40 QD DVT- Eliquis FEN -D5-1/2NS -recheck lytes in AM -NPO except for meds; may need swallow eval lines -NG tube placement -ostomy -owen dispo -full code -transfer to med-surg Visit type - Emergency Visit Emergency Visit: Yes ED Registration Date: 02/28/18 Care time: The patient presented to the Emergency Department on the above date and was hospitalized for further evaluation of their emergent condition. - New Patient This patient is new to me today: No - Critical Care Critical Care patient: Yes Total Critical Care Time (in minutes): 36 Critical Care Statement: The care of this patient involved high complexity decision making to prevent further life threatening deterioration of the patient 's condition and/or to evaluate & treat vital organ system(s) failure or risk of failure.
[2018-03-30] MEDS: D5-1/2NS+20 MEQ KCL - 20 MEQ/1,000 ML INFUS.BAG IV SCH (08:30)
[2018-03-30] MEDS: LISINOPRIL 20 MG TABLET (FP) PO SCH (09:25)
[2018-03-30] MEDS: AMINO ACIDS/PROTEIN HYDROLYS 30 ML LIQUID.PKT PO SCH ×3 (09:25→16:33)
[2018-03-30] MEDS: METOPROLOL TARTRATE 50 MG TABLET (FP) PO SCH ×2 (09:25→22:00)
[2018-03-30] MEDS: PANTOPRAZOLE SODIUM 40 MG VIAL IVPUSH SCH (09:25)
[2018-03-30] MEDS: APIXABAN 5 MG TABLET PO SCH ×2 (09:25→22:00)
[2018-03-30] MEDS: ZINC OXIDE 20% TOPICAL OINTMENT 30 GM TUBE TP SCH ×2 (09:26→22:00)
--- NOTE | 2018-03-30 10:34 | PN ---
Progress Note (short form) - Note Progress Note: POD #2- s/p sigmoid colectomy , colostomy NPO awake no distress no agitation Vital Signs - 24 hr 03/29/18 03/29/18 03/29/18 12:00 14:00 16:00 Temperature 101.2 F H 99.5 F Pulse Rate 77 87 92 H Respiratory 23 H 25 H 26 H Rate Blood Pressure 139/76 161/80 133/81 O2 Sat by Pulse Oximetry (%) 03/29/18 03/29/18 03/29/18 18:00 20:00 20:36 Temperature Pulse Rate 79 73 Respiratory 21 H 21 H Rate Blood Pressure 149/59 L 173/73 H O2 Sat by Pulse 96 Oximetry (%) 03/29/18 03/30/18 03/30/18 22:00 00:00 02:00 Temperature 100.4 F H Pulse Rate 86 86 81 Respiratory 25 H 26 H 21 H Rate Blood Pressure 171/85 H 138/73 157/70 O2 Sat by Pulse Oximetry (%) 03/30/18 03/30/18 03/30/18 04:00 06:00 08:00 Temperature 99.6 F Pulse Rate 91 H 96 H 81 Respiratory 25 H 14 20 Rate Blood Pressure 176/79 H 182/95 H 161/90 O2 Sat by Pulse Oximetry (%) 03/30/18 03/30/18 09:00 10:00 Temperature 99.9 F H Pulse Rate 73 Respiratory 24 H Rate Blood Pressure 108/63 O2 Sat by Pulse 96 Oximetry (%) Current Medications Generic Name Dose Route Start Last Admin Trade Name Freq PRN Reason Stop Dose Admin Acetaminophen 1,000 mg 03/29/18 22:46 03/30/18 06:36 Ofirmev Injection - IVPB 1,000 mg Q6H PRN Administration pain 1-5 or fever Albuterol Sulfate 1 amp 03/27/18 16:47 Ventolin 0.083% Nebulizer Soln - NEB Q4H PRN SHORT OF BREATH/WHEEZING Albuterol/Ipratropium 1 amp 03/27/18 20:00 03/30/18 08:00 Duoneb - NEB 1 amp RQID [facility] Administration Amino Acids 30 ml 03/27/18 17:30 03/30/18 09:25 Prosource No Carb Liquid Pkt PO 30 ml BID@0800,1730 [facility] Administration Apixaban 5 mg 03/29/18 22:00 03/30/18 09:25 Eliquis - PO 5 mg BID [facility] Administration Potassium Chloride/Dextrose/Sod Cl 20 meq in 1,000 mls @ 100 mls/hr 03/30/18 07:55 03/30/18 08:30 D5-1/2ns+20 Meq Kcl - IV 100 mls/hr ASDIR [facility] Administration Insulin Aspart 1 vial 03/27/18 22:00 03/30/18 06:32 Novolog Vial Sliding Scale - SQ Not Given ACHS [facility] Protocol Lisinopril 40 mg 03/28/18 10:00 03/30/18 09:25 Prinivil PO 40 mg DAILY [facility] Administration Methyl Salicylate 1 applic 03/27/18 16:47 Felix-Seaman - TP Q8H PRN BODY ACHES Metoprolol Tartrate 50 mg 03/27/18 22:00 03/30/18 09:25 Lopressor - PO 50 mg BID [facility] Administration Morphine Sulfate 4 mg 03/29/18 22:47 Morphine Sulfate IVPUSH Q4H PRN PAIN LEVEL 6-10 Multi-Ingredient Ointment 1 applic 03/27/18 22:00 03/30/18 09:26 Zinc Oxide TP 1 applic BID [facility] Administration Pantoprazole Sodium 40 mg 03/28/18 10:00 03/30/18 09:25 Protonix Iv IVPUSH 40 mg DAILY [facility] Administration Laboratory Results - last 24 hr 03/29/18 03/29/18 03/29/18 11:30 16:58 21:29 WBC RBC Hgb Hct MCV MCH MCHC RDW Plt Count MPV Absolute Neuts (auto) Neutrophils % Lymphocytes % Monocytes % Eosinophils % Basophils % Nucleated RBC % Sodium Potassium Chloride Carbon Dioxide Anion Gap BUN Creatinine Creat Clearance w eGFR POC Glucometer 169.07029 164.44583 159.83206 Random Glucose Calcium Phosphorus Magnesium Total Bilirubin AST ALT Alkaline Phosphatase Total Protein Albumin 03/30/18 03/30/18 03/30/18 05:30 05:30 05:32 WBC 16.7 H RBC 3.43 L Hgb 10.4 L Hct 31.3 L MCV 91.3 MCH 30.4 MCHC 33.3 RDW 15.2 Plt Count 204 MPV 9.0 Absolute Neuts (auto) 12.9 H Neutrophils % 77.0 Lymphocytes % 13.3 Monocytes % 8.4 Eosinophils % 1.0 Basophils % 0.3 Nucleated RBC % 0 Sodium 139 Potassium 3.5 Chloride 100 Carbon Dioxide 33 H Anion Gap 6 L BUN 5 L Creatinine 0.6 Creat Clearance w eGFR > 60 POC Glucometer 141.63163 Random Glucose 92 Calcium 7.7 L Phosphorus 2.9 Magnesium 1.8 Total Bilirubin 0.9 AST 26 ALT 33 Alkaline Phosphatase 136 H Total Protein 5.3 L Albumin 1.6 L S1 S2 irregular Lungs decreased ABd- soft, tender+, dressing noted in midline no bowel sounds colostomy-- serous fluid edema+ PLAN can not tolerate PO iv fluids NPO elevated temp yesterday , now low grade off antibiotics-- cultures repeated CXR-- atelectasis Problem List - Problems (1) Demand ischemia Code(s): I24.8 - OTHER FORMS OF ACUTE ISCHEMIC HEART DISEASE (2) Elevated troponin Code(s): R74.8 - ABNORMAL LEVELS OF OTHER SERUM ENZYMES (3) Pneumonia Code(s): J18.9 - PNEUMONIA, UNSPECIFIED ORGANISM (4) Rapid atrial fibrillation Code(s): I48.91 - UNSPECIFIED ATRIAL FIBRILLATION (5) Sepsis Code(s): A41.9 - SEPSIS, UNSPECIFIED ORGANISM Qualifiers: Sepsis type: sepsis due to unspecified organism Qualified Code(s): A41.9 - Sepsis, unspecified organism
--- NOTE | 2018-03-30 11:08 | PN ---
Progress Note, Physician History of Present Illness: POD#3 open sigmoid colectomy, rate-controlled afib, passing stools. - Current Medication List Current Medications: Active Medications Acetaminophen (Ofirmev Injection -) 1,000 mg IVPB Q6H PRN PRN Reason: pain 1-5 or fever Last Admin: 03/30/18 06:36 Dose: 1,000 mg Albuterol Sulfate (Ventolin 0.083% Nebulizer Soln -) 1 amp NEB Q4H PRN PRN Reason: SHORT OF BREATH/WHEEZING Albuterol/Ipratropium (Duoneb -) 1 amp NEB RQID [facility] Last Admin: 03/30/18 08:00 Dose: 1 amp Amino Acids (Prosource No Carb Liquid Pkt) 30 ml PO BID@0800,1730 [facility] Last Admin: 03/30/18 09:25 Dose: 30 ml Apixaban (Eliquis -) 5 mg PO BID [facility] Last Admin: 03/30/18 09:25 Dose: 5 mg Potassium Chloride/Dextrose/Sod Cl (D5-1/2ns+20 Meq Kcl -) 20 meq in 1,000 mls @ 100 mls/hr IV ASDIR [facility] Last Admin: 03/30/18 08:30 Dose: 100 mls/hr Insulin Aspart (Novolog Vial Sliding Scale -) 1 vial SQ ACHS [facility]; Protocol Last Admin: 03/30/18 06:32 Dose: Not Given Lisinopril (Prinivil) 40 mg PO DAILY [facility] Last Admin: 03/30/18 09:25 Dose: 40 mg Methyl Salicylate (Felix-Seaman -) 1 applic TP Q8H PRN PRN Reason: BODY ACHES Metoprolol Tartrate (Lopressor -) 50 mg PO BID [facility] Last Admin: 03/30/18 09:25 Dose: 50 mg Morphine Sulfate (Morphine Sulfate) 4 mg IVPUSH Q4H PRN PRN Reason: PAIN LEVEL 6-10 Multi-Ingredient Ointment (Zinc Oxide) 1 applic TP BID [facility] Last Admin: 03/30/18 09:26 Dose: 1 applic Pantoprazole Sodium (Protonix Iv) 40 mg IVPUSH DAILY [facility] Last Admin: 03/30/18 09:25 Dose: 40 mg - Objective Vital Signs: Vital Signs Temperature 99.9 F H 03/30/18 10:00 Pulse Rate 73 03/30/18 10:00 Respiratory Rate 24 H 03/30/18 10:00 Blood Pressure 108/63 03/30/18 10:00 O2 Sat by Pulse Oximetry (%) 96 03/30/18 09:00 Constitutional: Yes: No Distress, Calm Neck: Yes: Supple Cardiovascular: Yes: Pulse Irregular Respiratory: Yes: Regular, Diminished, On Nasal O2 Gastrointestinal: Yes: Soft, Hypoactive Bowel Sounds, Other (Colostomy bag) Edema: No Labs: CBC, BMP 03/30/18 05:30 03/30/18 05:30 INR, PTT INR 1.64 (0.83-1.09) H 03/26/18 11:55 - ....Imaging Chest X-ray: Report Reviewed (Bibasilar ATX) EKG: Report Reviewed (Tele: PAF->SR) Problem List - Problems (1) Elevated troponin Code(s): R74.8 - ABNORMAL LEVELS OF OTHER SERUM ENZYMES (2) Rapid atrial fibrillation Code(s): I48.91 - UNSPECIFIED ATRIAL FIBRILLATION (3) Diastolic dysfunction Code(s): I51.9 - HEART DISEASE, UNSPECIFIED (4) H/O: CVA (cerebrovascular accident) Code(s): Z86.73 - PRSNL HX OF TIA (TIA), AND CEREB INFRC W/O RESID DEFICITS (5) Hyperlipidemia Code(s): E78.5 - HYPERLIPIDEMIA, UNSPECIFIED Qualifiers: Hyperlipidemia type: pure hypercholesterolemia Qualified Code(s): E78.00 - Pure hypercholesterolemia, unspecified; E78.0 - Pure hypercholesterolemia (6) Hypertension Code(s): I10 - ESSENTIAL (PRIMARY) HYPERTENSION Qualifiers: Hypertension type: essential hypertension Qualified Code(s): I10 - Essential (primary) hypertension (7) Pneumonia Code(s): J18.9 - PNEUMONIA, UNSPECIFIED ORGANISM Qualifiers: Pneumonia type: due to unspecified organism Laterality: right Lung location: lower lobe of lung Qualified Code(s): J18.1 - Lobar pneumonia, unspecified organism (8) Toxic metabolic encephalopathy Code(s): G92 - TOXIC ENCEPHALOPATHY (9) Demand ischemia Code(s): I24.8 - OTHER FORMS OF ACUTE ISCHEMIC HEART DISEASE (10) Premature ventricular contraction Code(s): I49.3 - VENTRICULAR PREMATURE DEPOLARIZATION (11) Volvulus of descending colon Code(s): K56.2 - VOLVULUS (12) Chronic anticoagulation Code(s): Z79.01 - HALFWAY (CURRENT) USE OF ANTICOAGULANTS (13) History of open sigmoidectomy Code(s): Z98.890 - OTHER SPECIFIED POSTPROCEDURAL STATES; Z90.49 - ACQUIRED ABSENCE OF OTHER SPECIFIED PARTS OF DIGESTIVE TRACT Assessment/Plan 12/20/2017 Echo: Normal LV size and fxn, tr MR, TR 1. s/p Acute Hypoxic Respiratory Failure and right lower lobe aspiration pneumonia 2. Intermittent sigmoid volvulus post rectal tube decompression and now POD#3 sigmoid colectomy, colostomy and umbilical hernia repair 3. 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 Diastolic LV dysfunction with clinical class 0-I NYHA classification LV failure, compensated/euvolemic 5. Paroxysmal atrial fibrillation [id number] score 7 6. Toxic-metabolic encephalopathy 7. History of CVA with residual right-sided weakness PLAN: 1. Advancing diet as tolerated, local wound care 2. Empiric antibiotic coverage 3. Continue Lopressor 50 mg BID and Lisinopril 40 mg QD, resume Lipitor 40 qd when feasible 4. Resumed Eliquis 5 mg BID as post-op hemostasis achieved
--- NOTE | 2018-03-30 11:49 | PN ---
Progress Note, SECONDS HANDLER - Note Progress Note: Last seen by me 03/21/18-MBS reviewed. Pt on pureed diet/nectar thick liquid. Pt not given thin liquids due to aspiration risk. Pt had upper airway congestion /wetness at baseline in February.Pt was doing well with diet. Asdked to reassess swallowing function- Per EMR review- 03/24 diet order- clear liquids, advance to reg as tolerated ursing noted" patient is on clear liquid diet, patient given breakfast this morning unable to tolerate feeding -started vomiting," 03/26 Very congested- NGT used for Ranjana prep s/p ex lap 03/27 with sigmoid colectomy , end colostomy and umbilical hernia repair extubated- 03/27 full fluids ordered and initiated following swallow screen by nursing Per chart, pt did not tolerate feeds, NGT replaced overnight Pt lethargic/arousable. Has NGT for suction. Pt upper airway congestion (similar to baseline seen in February), low grade temps, elevated WBC. Selected Entries 03/25/18 03/25/18 03/26/18 10:39 18:30 06:00 Breakfast 75% Supper 75% Temperature 98.7 F 03/26/18 03/26/18 03/26/18 10:00 10:43 15:19 Breakfast 50% 50% Supper Temperature 99.3 F 03/26/18 03/26/18 03/27/18 16:30 22:00 06:00 Breakfast Supper Temperature 99.2 F 98.8 F 99.7 F H 03/27/18 03/27/18 03/27/18 09:30 12:00 16:10 Breakfast Supper Temperature 100.1 F H 100.3 F H 100.5 F H 03/27/18 03/28/18 03/28/18 18:10 02:00 04:00 Breakfast Supper Temperature 100.6 F H 101.4 F H 100.2 F H 03/28/18 03/28/18 03/28/18 06:00 10:00 14:00 Breakfast Supper Temperature 99.5 F 100.0 F H 100.0 F H 03/28/18 03/28/18 18:00 20:00 Breakfast Supper Temperature 99.5 F 99.2 F Laboratory Tests 03/26/18 03/27/18 03/28/18 11:55 20:00 05:30 WBC 17.5 H 11.1 H 11.9 H 03/29/18 03/30/18 08:05 05:30 WBC 14.0 H 16.7 H REC: Continue NPO. Once less congested , more alert, NGT suction d/c'd, I will reassess for swallowing function.
--- NOTE | 2018-03-30 12:10 | PN ---
Teaching Attending Note Name of Resident: Riri Malagon ATTENDING PHYSICIAN STATEMENT I saw and evaluated the patient. I reviewed the resident's note and discussed the case with the resident. I agree with the resident's findings and plan as documented. SUBJECTIVE: Patient seen and examined in the ICU. Extubated. Awake and responsive. Some congested cough. Intake & Output 03/27/18 03/28/18 03/29/18 03/30/18 23:59 23:59 23:59 23:59 Intake Total 3425 2643 1150 968 Output Total 360 1200 840 300 Balance 3065 1443 310 668 Weight 222 lb 6.4 oz 308 lb 9.6 oz Last Vital Signs Temp Pulse Resp BP Pulse Ox 99.9 F H 73 24 H 108/63 96 03/30/18 10:00 03/30/18 10:00 03/30/18 10:00 03/30/18 10:00 03/30/18 09:00 Active Medications Acetaminophen (Ofirmev Injection -) 1,000 mg IVPB Q6H PRN PRN Reason: pain 1-5 or fever Last Admin: 03/30/18 06:36 Dose: 1,000 mg Albuterol Sulfate (Ventolin 0.083% Nebulizer Soln -) 1 amp NEB Q4H PRN PRN Reason: SHORT OF BREATH/WHEEZING Albuterol/Ipratropium (Duoneb -) 1 amp NEB RQID [facility] Last Admin: 03/30/18 11:43 Dose: 1 amp Amino Acids (Prosource No Carb Liquid Pkt) 30 ml PO BID@0800,1730 [facility] Last Admin: 03/30/18 09:25 Dose: 30 ml Apixaban (Eliquis -) 5 mg PO BID [facility] Last Admin: 03/30/18 09:25 Dose: 5 mg Atorvastatin Calcium (Lipitor -) 40 mg PO HS [facility] Potassium Chloride/Dextrose/Sod Cl (D5-1/2ns+20 Meq Kcl -) 20 meq in 1,000 mls @ 100 mls/hr IV ASDIR [facility] Last Admin: 03/30/18 08:30 Dose: 100 mls/hr Insulin Aspart (Novolog Vial Sliding Scale -) 1 vial SQ ACHS [facility]; Protocol Last Admin: 03/30/18 11:23 Dose: Not Given Lisinopril (Prinivil) 40 mg PO DAILY [facility] Last Admin: 03/30/18 09:25 Dose: 40 mg Methyl Salicylate (Felix-Seaman -) 1 applic TP Q8H PRN PRN Reason: BODY ACHES Metoprolol Tartrate (Lopressor -) 50 mg PO BID [facility] Last Admin: 03/30/18 09:25 Dose: 50 mg Morphine Sulfate (Morphine Sulfate) 4 mg IVPUSH Q4H PRN PRN Reason: PAIN LEVEL 6-10 Multi-Ingredient Ointment (Zinc Oxide) 1 applic TP BID [facility] Last Admin: 03/30/18 09:26 Dose: 1 applic Pantoprazole Sodium (Protonix Iv) 40 mg IVPUSH DAILY [facility] Last Admin: 03/30/18 09:25 Dose: 40 mg Gen: Extubated, NAD Heart: RRR Lung: scattered rhonchi Abd: soft, nontender, hypoactive BS Ext: edema Laboratory Results - last 24 hr 03/29/18 03/29/18 03/29/18 11:30 16:58 21:29 WBC RBC Hgb Hct MCV MCH MCHC RDW Plt Count MPV Absolute Neuts (auto) Neutrophils % Lymphocytes % Monocytes % Eosinophils % Basophils % Nucleated RBC % Sodium Potassium Chloride Carbon Dioxide Anion Gap BUN Creatinine Creat Clearance w eGFR POC Glucometer 169.09435 164.90315 159.60677 Random Glucose Calcium Phosphorus Magnesium Total Bilirubin AST ALT Alkaline Phosphatase Total Protein Albumin 03/30/18 03/30/18 03/30/18 05:30 05:30 05:32 WBC 16.7 H RBC 3.43 L Hgb 10.4 L Hct 31.3 L MCV 91.3 MCH 30.4 MCHC 33.3 RDW 15.2 Plt Count 204 MPV 9.0 Absolute Neuts (auto) 12.9 H Neutrophils % 77.0 Lymphocytes % 13.3 Monocytes % 8.4 Eosinophils % 1.0 Basophils % 0.3 Nucleated RBC % 0 Sodium 139 Potassium 3.5 Chloride 100 Carbon Dioxide 33 H Anion Gap 6 L BUN 5 L Creatinine 0.6 Creat Clearance w eGFR > 60 POC Glucometer [phone] Random Glucose 92 Calcium 7.7 L Phosphorus 2.9 Magnesium 1.8 Total Bilirubin 0.9 AST 26 ALT 33 Alkaline Phosphatase 136 H Total Protein 5.3 L Albumin 1.6 L 03/30/18 11:22 WBC RBC Hgb Hct MCV MCH MCHC RDW Plt Count MPV Absolute Neuts (auto) Neutrophils % Lymphocytes % Monocytes % Eosinophils % Basophils % Nucleated RBC % Sodium Potassium Chloride Carbon Dioxide Anion Gap BUN Creatinine Creat Clearance w eGFR POC Glucometer [phone] Random Glucose Calcium Phosphorus Magnesium Total Bilirubin AST ALT Alkaline Phosphatase Total Protein Albumin A/P s/p Acute Hypoxic Respiratory Failure Pneumonia likely Aspiration clinically improved Sigmoid Volvulus s/p Rectal Tube Decompression Sepsis resolved LV Diastolic Dysfunction +Troponins likely Demand Ischemia Paroxysmal Atrial Fibrillation h/o CVA - Await return of bowel function - O2 to maintain saturation - ABX per ID - aspiration precautions - rate control - VTE prophylaxis - PPI - Glycemic control - Floor Dr Patel
[2018-03-30] MEDS ORDERED: ALBUTEROL SO4 0.083% IH SOL 2.5 MG/3 ML VIAL.NEB. NEB PRN (13:58)
[2018-03-30] MEDS ORDERED: METHYL SALICYLATE/MENTHOL OINT 30 GM TUBE TP PRN (13:58)
--- NOTE | 2018-03-30 15:29 | PN ---
Progress Note, Physician Chief Complaint: volvulus History of Present Illness: 77yo male PMH HTN, HLD, CHF, CVA with residual right sided weakness, dysphagia, DM2, COPD presented with weakness and fever 103 from NH. Remains weak, marginally responsive, on cardizem for Afib which is more rate controlled now. rectal tube was replaced because of recurrent colonic atony and distension. with the rectal tube removed today the patient is passing semiformed stool. Stable post operatively. - Current Medication List Current Medications: Active Medications Acetaminophen (Ofirmev Injection -) 1,000 mg IVPB Q6H PRN PRN Reason: pain 1-5 or fever Last Admin: 03/30/18 06:36 Dose: 1,000 mg Albuterol Sulfate (Ventolin 0.083% Nebulizer Soln -) 1 amp NEB Q4H PRN PRN Reason: SHORT OF BREATH/WHEEZING Albuterol/Ipratropium (Duoneb -) 1 amp NEB RQID [facility] Last Admin: 03/30/18 15:28 Dose: 1 amp Amino Acids (Prosource No Carb Liquid Pkt) 30 ml PO BID@0800,1730 [facility] Apixaban (Eliquis -) 5 mg PO BID [facility] Last Admin: 03/30/18 09:25 Dose: 5 mg Atorvastatin Calcium (Lipitor -) 40 mg PO HS [facility] Potassium Chloride/Dextrose/Sod Cl (D5-1/2ns+20 Meq Kcl -) 20 meq in 1,000 mls @ 100 mls/hr IV ASDIR [facility] Last Admin: 03/30/18 08:30 Dose: 100 mls/hr Insulin Aspart (Novolog Vial Sliding Scale -) 1 vial SQ ACHS [facility]; Protocol Lisinopril (Prinivil) 40 mg PO DAILY [facility] Methyl Salicylate (Felix-Seaman -) 1 applic TP Q8H PRN PRN Reason: BODY ACHES Metoprolol Tartrate (Lopressor -) 50 mg PO BID [facility] Morphine Sulfate (Morphine Sulfate) 4 mg IVPUSH Q4H PRN PRN Reason: PAIN LEVEL 6-10 Multi-Ingredient Ointment (Zinc Oxide) 1 applic TP BID [facility] Pantoprazole Sodium (Protonix Iv) 40 mg IVPUSH DAILY [facility] - Objective Vital Signs: Vital Signs Temperature 99.9 F H 03/30/18 10:00 Pulse Rate 88 03/30/18 12:00 Respiratory Rate 21 H 12/06/18 12:00 Blood Pressure 153/87 03/30/18 12:00 O2 Sat by Pulse Oximetry (%) 96 03/30/18 09:00 Constitutional: Yes: Well Nourished, No Distress, Calm Eyes: Yes: Conjunctiva Clear, EOM Intact HENT: Yes: Atraumatic, Normocephalic Neck: Yes: Supple, Trachea Midline Cardiovascular: Yes: Regular Rate and Rhythm, S1, S2 Respiratory: Yes: Regular, CTA Bilaterally Gastrointestinal: Yes: Normal Bowel Sounds, Soft ...Rectal Exam: Yes: Deferred Genitourinary: No: CVA Tenderness - Left, CVA Tenderness - Right Musculoskeletal: No: Muscle Pain, Muscle Weakness Extremities: No: Cool, Cyanosis Edema: No Peripheral Pulses WNL: Yes Peripheral Pulses: Left Radial: 2+, Right Radial: 2+, Left Doralis Pedis: 2+, Right Dorsalis Pedis: 2+ Integumentary: No: Jaundice, Rash Wound/Incision: Yes: Clean/Dry, Well Approximated, Other (colsotomy gas and serosanguinous fluid) Neurological: Yes: Alert, Oriented Psychiatric: Yes: Alert, Oriented Labs: CBC, BMP 03/30/18 05:30 03/30/18 05:30 INR, PTT INR 1.64 (0.83-1.09) H 03/26/18 11:55 Problem List - Problems (1) Volvulus of sigmoid colon Code(s): K56.2 - VOLVULUS (2) Elevated troponin Code(s): R74.8 - ABNORMAL LEVELS OF OTHER SERUM ENZYMES (3) Hypoxemia Code(s): R09.02 - HYPOXEMIA (4) Pneumonia Code(s): J18.9 - PNEUMONIA, UNSPECIFIED ORGANISM (5) COPD (chronic obstructive pulmonary disease) Code(s): J44.9 - CHRONIC OBSTRUCTIVE PULMONARY DISEASE, UNSPECIFIED Qualifiers: Emphysema type: unspecified (6) Diabetes Code(s): E11.9 - TYPE 2 DIABETES MELLITUS WITHOUT COMPLICATIONS (7) Fecal retention Code(s): K59.00 - CONSTIPATION, UNSPECIFIED
[2018-03-30] MEDS: POLYETHYLENE GLYCOL 3350 119 GM BTL NGT SCH (16:33)
--- NOTE | 2018-03-30 17:35 | PN ---
Progress Note (short form) - Note Progress Note: much more alert out of icu zosyn d/baldev this am owen out s/p ex lap 12 with sigmoid colectomy , end colostomy and umbilical hernia repair Vital Signs Period Temp Pulse Resp BP Sys/Pham Pulse Ox Last 24 Hr 99.3 F-100.4 F 73-96 14-26 108-182/59-95 96-96 cor-rrr lungs decreased bs at bases abd firm, some incisional tenderness, +karon, colostomy- minimal output ext no edema +ngt CBC, BMP 03/30/18 05:30 03/30/18 05:30 Microbiology 03/29/18 16:00 Blood - Peripheral Venous Blood Culture - Preliminary NO GROWTH OBTAINED AFTER 24 HOURS, INCUBATION TO CONTINUE FOR 4 DAYS. 03/29/18 15:32 Sputum - Oropharynx Suctioned Sputum Gram Stain - Final 03/24/18 12:42 Blood - Peripheral Venous Blood Culture - Final NO GROWTH AFTER 5 DAYS INCUBATION 03/24/18 12:42 Blood - Peripheral Venous Blood Culture - Final NO GROWTH AFTER 5 DAYS INCUBATION 03/11/18 14:50 Blood - Peripheral Venous Blood Culture - Final NO GROWTH AFTER 5 DAYS INCUBATION 03/11/18 14:45 Blood - Peripheral Venous Blood Culture - Final NO GROWTH AFTER 5 DAYS INCUBATION 02/28/18 20:25 Blood - Peripheral Venous Blood Culture - Final NO GROWTH AFTER 5 DAYS INCUBATION 02/28/18 20:25 Blood - Peripheral Venous Blood Culture - Final NO GROWTH AFTER 5 DAYS INCUBATION 03/03/18 06:00 Stool Clostridium difficile Antigen (AMY) - Final 03/03/18 06:00 Stool Clostridium difficile Toxin Assay - Final 03/01/18 20:30 Nares - Mrsa Screen - Right MRSA Screen - Final NO MRSA ISOLATED 03/01/18 20:30 Nares - Mrsa Screen - Left MRSA Screen - Final NO MRSA ISOLATED 02/28/18 22:53 Urine - Urine Clean Catch Urine Culture - Final NO GROWTH OBTAINED 03/01/18 11:20 Urine For Antigen Detection Legionella Antigen - Final 03/01/18 11:20 Urine For Antigen Detection Streptococcus pneumoniae Antigen (M - Final 02/28/18 23:30 Nasopharyngeal Swab Influenza Types A,B Antigen - Final 02/28/18 23:30 Nasopharyngeal Swab - Final a/p s/p sigmoid colectomy pod #3 fevers trending down owen d/baldev durga d/baldev this am encourage incentive spirometry reculture for fever afib- improved on meds Problem List - Problems (1) Sepsis Code(s): A41.9 - SEPSIS, UNSPECIFIED ORGANISM Qualifiers: Sepsis type: sepsis due to unspecified organism Qualified Code(s): A41.9 - Sepsis, unspecified organism (2) Pneumonia Code(s): J18.9 - PNEUMONIA, UNSPECIFIED ORGANISM (3) Hypoxemia Code(s): R09.02 - HYPOXEMIA (4) COPD exacerbation Code(s): J44.1 - CHRONIC OBSTRUCTIVE PULMONARY DISEASE W (ACUTE) EXACERBATION (5) Rapid atrial fibrillation Code(s): I48.91 - UNSPECIFIED ATRIAL FIBRILLATION (6) Elevated troponin Code(s): R74.8 - ABNORMAL LEVELS OF OTHER SERUM ENZYMES (7) Prolonged Q-T interval on ECG Code(s): R94.31 - ABNORMAL ELECTROCARDIOGRAM [ECG] [EKG]
[2018-03-30] MEDS: ATORVASTATIN CA 40 MG TABLET (FP) PO SCH (22:00)
[2018-03-30] MEDS: MINERAL OIL/PET HY-PHL TOPICAL OINTMENT 454 GM JAR TP PRN (23:56)
[2018-03-31] MEDS: INSULIN SLIDING SCALE (NOVOLOG) 1 VIAL SQ SCH ×4 (06:45→23:56)
[2018-03-31] MEDS: ALBUTEROL SO4 2.5/IPRATROPIUM 0.5 INH SOL 3 ML VIAL.NEB. NEB SCH ×4 (07:30→19:25)
[2018-03-31 08:22] LABS: BASO % 0.1 % (0-2.0); EOS % 1.2 % (0-4.5); HEMATOCRIT 32.6 % (35.4-49); HEMOGLOBIN 10.9 GM/dL (11.7-16.9); MCH 30.3 pg (25.7-33.7); MCHC 33.4 g/dl (32.0-35.9); MEAN CELL VOLUME 90.9 fl (80-96); MONO % 8.5 % (3.8-10.2); NEUT % 75.2 % (42.8-82.8); PLATELET COUNT 280 K/MM3 (134-434); RBC 3.58 M/mm3 (4.00-5.60); RDW 15.5 % (11.9-15.9); WHITE BLOOD COUNT 16.6 K/mm3 (4.0-10.0)
[2018-03-31 08:52] LABS: ALBUMIN 1.6 g/dl (3.4-5.0); ALK PHOS 155 U/L (45-117); ANION GAP 7 MMOL/L (8-16); BILIRUBIN,TOTAL 0.8 mg/dL (0.2-1); BLOOD UREA NITROGEN 6 mg/dL (7-18); CHLORIDE 97 mmol/L (98-107); CO2 30 mmol/L (21-32); CREATININE 0.6 mg/dL (0.55-1.3); GLUCOSE,RANDOM 174 mg/dL (74-106); MAGNESIUM 1.7 mg/dL (1.8-2.4); PHOSPHOROUS 2.8 mg/dL (2.5-4.9); POTASSIUM 3.8 mmol/L (3.5-5.1); SGOT/AST 24 U/L (15-37); SGPT/ALT 28 U/L (13-61); SODIUM 135 mmol/L (136-145); TOT PROT 5.8 g/dl (6.4-8.2)
[2018-03-31] MEDS ORDERED: PT OWN MED DRAWER 7, Y5N ONE ×2 (09:11→23:35)
[2018-03-31] MEDS: D5-1/2NS+20 MEQ KCL - 20 MEQ/1,000 ML INFUS.BAG IV SCH (09:48)
[2018-03-31] MEDS: METOPROLOL TARTRATE 50 MG TABLET (FP) PO SCH ×2 (09:49→23:52)
[2018-03-31] MEDS: AMINO ACIDS/PROTEIN HYDROLYS 30 ML LIQUID.PKT PO SCH ×2 (09:49→17:38)
[2018-03-31] MEDS: APIXABAN 5 MG TABLET PO SCH ×2 (09:49→23:52)
[2018-03-31] MEDS: LISINOPRIL 20 MG TABLET (FP) PO SCH (09:50)
[2018-03-31] MEDS: PANTOPRAZOLE SODIUM 40 MG VIAL IVPUSH SCH (09:50)
[2018-03-31] MEDS: POLYETHYLENE GLYCOL 3350 119 GM BTL NGT SCH (09:52)
[2018-03-31] MEDS: ZINC OXIDE 20% TOPICAL OINTMENT 30 GM TUBE TP SCH ×2 (09:52→23:57)
[2018-03-31] MEDS: morphine SULFATE 4 MG/ML VIAL IVPUSH PRN ×2 (10:07→17:37)
--- NOTE | 2018-03-31 10:11 | PN ---
Progress Note (short form) - Note Progress Note: Pt seen/ examined. chart reviewed/ all f/u noted awake. mild distress +ve pain. low grade temp Vital Signs Temp 99.9 F H 03/31/18 06:00 Pulse 105 H 03/31/18 06:00 Resp 20 03/31/18 06:00 BP 151/118 H 03/31/18 06:00 Pulse Ox 96 03/30/18 21:00 Intake & Output 03/30/18 03/30/18 03/31/18 11:59 23:59 11:59 Intake Total 968 880 0 Output Total 300 485 Balance 668 395 0 Weight 224 lb 4.8 oz Intake: IV 838 630 D5-1/2NS+20 MEQ KCL - 20 630 meq In 1,000 ml @ 100 mls /hr IV ASDIR FLORIN Rx#: [id number] D5-1/2NS+20 MEQ KCL - 20 838 meq In 1,000 ml @ 75 mls/ hr IV ASDIR FLORIN Rx#: [id number] IVPB 130 Oral 200 0 Tube Irrigant 50 Output: Gastric Drainage 75 Urine 300 400 Davis 300 400 Colostomy 10 Other: Voiding Method Indwelling Catheter Diaper Diaper # Unmeasured Voids Davis 2 Bowel Movement No No No Active Medications Acetaminophen (Ofirmev Injection -) 1,000 mg IVPB Q6H PRN PRN Reason: pain 1-5 or fever Last Admin: 03/30/18 16:25 Dose: 1,000 mg Albuterol Sulfate (Ventolin 0.083% Nebulizer Soln -) 1 amp NEB Q4H PRN PRN Reason: SHORT OF BREATH/WHEEZING Albuterol/Ipratropium (Duoneb -) 1 amp NEB RQID [facility] Last Admin: 03/31/18 07:30 Dose: 1 amp Amino Acids (Prosource No Carb Liquid Pkt) 30 ml PO BID@0800,1730 [facility] Last Admin: 03/31/18 09:49 Dose: 30 ml Apixaban (Eliquis -) 5 mg PO BID [facility] Last Admin: 03/31/18 09:49 Dose: 5 mg Atorvastatin Calcium (Lipitor -) 40 mg PO HS [facility] Last Admin: 03/30/18 22:00 Dose: 40 mg Emollient Ointment (Aquaphor -) 1 applic TP Q12H PRN PRN Reason: RASH Last Admin: 03/30/18 23:56 Dose: 1 applic Potassium Chloride/Dextrose/Sod Cl (D5-1/2ns+20 Meq Kcl -) 20 meq in 1,000 mls @ 100 mls/hr IV ASDIR [facility] Last Admin: 03/31/18 09:48 Dose: 100 mls/hr Insulin Aspart (Novolog Vial Sliding Scale -) 1 vial SQ ACHS [facility]; Protocol Last Admin: 03/31/18 06:45 Dose: 2 units Lisinopril (Prinivil) 40 mg PO DAILY [facility] Last Admin: 03/31/18 09:50 Dose: 40 mg Methyl Salicylate (Felix-Seaman -) 1 applic TP Q8H PRN PRN Reason: BODY ACHES Metoprolol Tartrate (Lopressor -) 50 mg PO BID [facility] Last Admin: 03/31/18 09:49 Dose: 50 mg Morphine Sulfate (Morphine Sulfate) 4 mg IVPUSH Q4H PRN PRN Reason: PAIN LEVEL 6-10 Last Admin: 03/31/18 10:07 Dose: 4 mg Multi-Ingredient Ointment (Zinc Oxide) 1 applic TP BID [facility] Last Admin: 03/31/18 09:52 Dose: 1 applic Pantoprazole Sodium (Protonix Iv) 40 mg IVPUSH DAILY [facility] Last Admin: 03/31/18 09:50 Dose: 40 mg Polyethylene Glycol (Miralax (For Daily Use) -) 17 gm NGT DAILY [facility] Last Admin: 03/31/18 09:52 Dose: 17 grams Microbiology 03/29/18 15:32 Urine Culture - Final Urine - Urine Davis NO GROWTH OBTAINED 03/29/18 18:00 Blood Culture - Preliminary Blood - Peripheral Venous NO GROWTH OBTAINED AFTER 24 HOURS, INCUBATION TO CONTINUE FOR 4 DAYS. 03/29/18 16:00 Blood Culture - Preliminary Blood - Peripheral Venous NO GROWTH OBTAINED AFTER 24 HOURS, INCUBATION TO CONTINUE FOR 4 DAYS. 03/29/18 15:32 Gram Stain - Final Sputum - Oropharynx Suctioned Sputum Physical Exam. awake/ mild distress S1 S2 irregular Lungs decreased ABd- soft, slightly distended quiet. Surgical site clean colostomy-- serous fluid. Ext- + edema- trace PLAN Pod # 4 iv fluids NPO off antibiotics-- cultures repeated CXR-- atelectasis - 03/30 continue present care will follow Problem List - Problems (1) Demand ischemia Code(s): I24.8 - OTHER FORMS OF ACUTE ISCHEMIC HEART DISEASE (2) Elevated troponin Code(s): R74.8 - ABNORMAL LEVELS OF OTHER SERUM ENZYMES (3) Hypokalemia Code(s): E87.6 - HYPOKALEMIA (4) Pneumonia Code(s): J18.9 - PNEUMONIA, UNSPECIFIED ORGANISM (5) Rapid atrial fibrillation Code(s): I48.91 - UNSPECIFIED ATRIAL FIBRILLATION (6) Volvulus of descending colon Code(s): K56.2 - VOLVULUS (7) Diabetes Code(s): E11.9 - TYPE 2 DIABETES MELLITUS WITHOUT COMPLICATIONS (8) Fecal retention Code(s): K59.00 - CONSTIPATION, UNSPECIFIED (9) H/O: CVA (cerebrovascular accident) Code(s): Z86.73 - PRSNL HX OF TIA (TIA), AND CEREB INFRC W/O RESID DEFICITS
--- NOTE | 2018-03-31 10:56 | PN ---
Progress Note, Physician History of Present Illness: POD#4 open sigmoid colectomy, rate-controlled afib, still NPO with NGT in place. - Current Medication List Current Medications: Active Medications Acetaminophen (Ofirmev Injection -) 1,000 mg IVPB Q6H PRN PRN Reason: pain 1-5 or fever Last Admin: 03/30/18 16:25 Dose: 1,000 mg Albuterol Sulfate (Ventolin 0.083% Nebulizer Soln -) 1 amp NEB Q4H PRN PRN Reason: SHORT OF BREATH/WHEEZING Albuterol/Ipratropium (Duoneb -) 1 amp NEB RQID [facility] Last Admin: 03/31/18 07:30 Dose: 1 amp Amino Acids (Prosource No Carb Liquid Pkt) 30 ml PO BID@0800,1730 [facility] Last Admin: 03/31/18 09:49 Dose: 30 ml Apixaban (Eliquis -) 5 mg PO BID [facility] Last Admin: 03/31/18 09:49 Dose: 5 mg Atorvastatin Calcium (Lipitor -) 40 mg PO HS [facility] Last Admin: 03/30/18 22:00 Dose: 40 mg Emollient Ointment (Aquaphor -) 1 applic TP Q12H PRN PRN Reason: RASH Last Admin: 03/30/18 23:56 Dose: 1 applic Potassium Chloride/Dextrose/Sod Cl (D5-1/2ns+20 Meq Kcl -) 20 meq in 1,000 mls @ 100 mls/hr IV ASDIR [facility] Last Admin: 03/31/18 09:48 Dose: 100 mls/hr Insulin Aspart (Novolog Vial Sliding Scale -) 1 vial SQ ACHS [facility]; Protocol Last Admin: 03/31/18 06:45 Dose: 2 units Lisinopril (Prinivil) 40 mg PO DAILY [facility] Last Admin: 03/31/18 09:50 Dose: 40 mg Methyl Salicylate (Felix-Seaman -) 1 applic TP Q8H PRN PRN Reason: BODY ACHES Metoprolol Tartrate (Lopressor -) 50 mg PO BID [facility] Last Admin: 03/31/18 09:49 Dose: 50 mg Morphine Sulfate (Morphine Sulfate) 4 mg IVPUSH Q4H PRN PRN Reason: PAIN LEVEL 6-10 Last Admin: 03/31/18 10:07 Dose: 4 mg Multi-Ingredient Ointment (Zinc Oxide) 1 applic TP BID [facility] Last Admin: 03/31/18 09:52 Dose: 1 applic Pantoprazole Sodium (Protonix Iv) 40 mg IVPUSH DAILY [facility] Last Admin: 03/31/18 09:50 Dose: 40 mg Polyethylene Glycol (Miralax (For Daily Use) -) 17 gm NGT DAILY [facility] Last Admin: 03/31/18 09:52 Dose: 17 grams - Objective Vital Signs: Vital Signs Temperature 99.9 F H 03/31/18 06:00 Pulse Rate 105 H 03/31/18 06:00 Respiratory Rate 20 03/31/18 06:00 Blood Pressure 151/118 H 03/31/18 06:00 O2 Sat by Pulse Oximetry (%) 96 03/30/18 21:00 Constitutional: Yes: No Distress, Calm Neck: Yes: Supple Cardiovascular: Yes: Pulse Irregular Respiratory: Yes: Regular, Diminished, On Nasal O2 Gastrointestinal: Yes: Normal Bowel Sounds, Soft Edema: No Labs: CBC, BMP 03/31/18 06:15 03/31/18 06:15 INR, PTT INR 1.64 (0.83-1.09) H 03/26/18 11:55 Problem List - Problems (1) Elevated troponin Code(s): R74.8 - ABNORMAL LEVELS OF OTHER SERUM ENZYMES (2) Rapid atrial fibrillation Code(s): I48.91 - UNSPECIFIED ATRIAL FIBRILLATION (3) Diastolic dysfunction Code(s): I51.9 - HEART DISEASE, UNSPECIFIED (4) H/O: CVA (cerebrovascular accident) Code(s): Z86.73 - PRSNL HX OF TIA (TIA), AND CEREB INFRC W/O RESID DEFICITS (5) Hyperlipidemia Code(s): E78.5 - HYPERLIPIDEMIA, UNSPECIFIED Qualifiers: Hyperlipidemia type: pure hypercholesterolemia Qualified Code(s): E78.00 - Pure hypercholesterolemia, unspecified; E78.0 - Pure hypercholesterolemia (6) Hypertension Code(s): I10 - ESSENTIAL (PRIMARY) HYPERTENSION Qualifiers: Hypertension type: essential hypertension Qualified Code(s): I10 - Essential (primary) hypertension (7) Pneumonia Code(s): J18.9 - PNEUMONIA, UNSPECIFIED ORGANISM Qualifiers: Pneumonia type: due to unspecified organism Laterality: right Lung location: lower lobe of lung Qualified Code(s): J18.1 - Lobar pneumonia, unspecified organism (8) Toxic metabolic encephalopathy Code(s): G92 - TOXIC ENCEPHALOPATHY (9) Demand ischemia Code(s): I24.8 - OTHER FORMS OF ACUTE ISCHEMIC HEART DISEASE (10) Premature ventricular contraction Code(s): I49.3 - VENTRICULAR PREMATURE DEPOLARIZATION (11) Volvulus of descending colon Code(s): K56.2 - VOLVULUS (12) Chronic anticoagulation Code(s): Z79.01 - MANAGER CONTROL (CURRENT) USE OF ANTICOAGULANTS (13) History of open sigmoidectomy Code(s): Z98.890 - OTHER SPECIFIED POSTPROCEDURAL STATES; Z90.49 - ACQUIRED ABSENCE OF OTHER SPECIFIED PARTS OF DIGESTIVE TRACT Assessment/Plan 12/20/2017 Echo: Normal LV size and fxn, tr MR, TR 1. s/p Acute Hypoxic Respiratory Failure and right lower lobe aspiration pneumonia post abx course 2. Intermittent sigmoid volvulus post rectal tube decompression and now POD#4 sigmoid colectomy, colostomy and umbilical hernia repair 3. 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 Diastolic LV dysfunction with clinical class 0-I NYHA classification LV failure, compensated/euvolemic 5. Paroxysmal atrial fibrillation [id number] score 7 6. Toxic-metabolic encephalopathy 7. History of CVA with residual right-sided weakness PLAN: 1. Clear liquid diet as tolerated, local wound care, OOB to chair 2. Completed empiric antibiotic coverage, observe off abx 3. Continue Lopressor 50 mg BID, Lisinopril 40 mg QD, and Lipitor 40 qd 4. Continue Eliquis 5 mg BID as post-op hemostasis achieved
--- NOTE | 2018-03-31 12:36 | PN ---
Progress Note, MENTAL HEALTH ASSISTANT - Note Progress Note: Selected Entries 03/30/18 03/30/18 03/30/18 04:00 10:00 14:00 Breakfast Supper Temperature 99.6 F 99.9 F H 99.3 F 03/30/18 03/30/18 03/30/18 15:14 16:30 18:30 Breakfast 50% Supper NPO Temperature 98.3 F 03/30/18 03/31/18 03/31/18 22:00 06:00 10:11 Breakfast NPO Supper Temperature 98.7 F 99.9 F H Laboratory Tests 03/29/18 03/30/18 03/31/18 08:05 05:30 06:15 WBC 14.0 H 16.7 H 16.6 H NPO Still with NGT suction.
--- NOTE | 2018-03-31 12:51 | PN ---
Progress Note, Physician Chief Complaint: volvulus History of Present Illness: 77yo male PMH HTN, HLD, CHF, CVA with residual right sided weakness, dysphagia, DM2, COPD presented with weakness and fever 103 from [place]. Remains weak, marginally responsive, on cardizem for Afib which is more rate controlled now. rectal tube was replaced because of recurrent colonic atony and distension. with the rectal tube removed today the patient is passing semiformed stool. Stable post operatively. - Current Medication List Current Medications: Active Medications Acetaminophen (Ofirmev Injection -) 1,000 mg IVPB Q6H PRN PRN Reason: pain 1-5 or fever Last Admin: 03/30/18 16:25 Dose: 1,000 mg Albuterol Sulfate (Ventolin 0.083% Nebulizer Soln -) 1 amp NEB Q4H PRN PRN Reason: SHORT OF BREATH/WHEEZING Albuterol/Ipratropium (Duoneb -) 1 amp NEB RQID [facility] Last Admin: 03/31/18 07:30 Dose: 1 amp Amino Acids (Prosource No Carb Liquid Pkt) 30 ml PO BID@0800,1730 [facility] Last Admin: 03/31/18 09:49 Dose: 30 ml Apixaban (Eliquis -) 5 mg PO BID [facility] Last Admin: 03/31/18 09:49 Dose: 5 mg Atorvastatin Calcium (Lipitor -) 40 mg PO HS [facility] Last Admin: 03/30/18 22:00 Dose: 40 mg Emollient Ointment (Aquaphor -) 1 applic TP Q12H PRN PRN Reason: RASH Last Admin: 03/30/18 23:56 Dose: 1 applic Potassium Chloride/Dextrose/Sod Cl (D5-1/2ns+20 Meq Kcl -) 20 meq in 1,000 mls @ 100 mls/hr IV ASDIR [facility] Last Admin: 03/31/18 09:48 Dose: 100 mls/hr Insulin Aspart (Novolog Vial Sliding Scale -) 1 vial SQ ACHS [facility]; Protocol Last Admin: 03/31/18 11:56 Dose: 2 units Lisinopril (Prinivil) 40 mg PO DAILY [facility] Last Admin: 03/31/18 09:50 Dose: 40 mg Methyl Salicylate (Felix-Seaman -) 1 applic TP Q8H PRN PRN Reason: BODY ACHES Metoprolol Tartrate (Lopressor -) 50 mg PO BID [facility] Last Admin: 03/31/18 09:49 Dose: 50 mg Morphine Sulfate (Morphine Sulfate) 4 mg IVPUSH Q4H PRN PRN Reason: PAIN LEVEL 6-10 Last Admin: 03/31/18 10:07 Dose: 4 mg Multi-Ingredient Ointment (Zinc Oxide) 1 applic TP BID [facility] Last Admin: 03/31/18 09:52 Dose: 1 applic Pantoprazole Sodium (Protonix Iv) 40 mg IVPUSH DAILY [facility] Last Admin: 03/31/18 09:50 Dose: 40 mg Polyethylene Glycol (Miralax (For Daily Use) -) 17 gm NGT DAILY [facility] Last Admin: 03/31/18 09:52 Dose: 17 grams - Objective Vital Signs: Vital Signs Temperature 99.9 F H 03/31/18 06:00 Pulse Rate 105 H 03/31/18 06:00 Respiratory Rate 20 03/31/18 06:00 Blood Pressure 151/118 H 03/31/18 06:00 O2 Sat by Pulse Oximetry (%) 96 03/30/18 21:00 Constitutional: Yes: Well Nourished, No Distress, Calm Eyes: Yes: Conjunctiva Clear, EOM Intact HENT: Yes: Atraumatic, Normocephalic Neck: Yes: Supple, Trachea Midline Cardiovascular: Yes: Regular Rate and Rhythm, S1, S2 Respiratory: Yes: Regular, CTA Bilaterally Gastrointestinal: Yes: Normal Bowel Sounds, Soft, Abdomen, Obese, Hypoactive Bowel Sounds ...Rectal Exam: Yes: Deferred Genitourinary: No: CVA Tenderness - Left, CVA Tenderness - Right Musculoskeletal: Yes: Muscle Weakness. No: Muscle Pain Extremities: No: Cool, Cyanosis Edema: No Peripheral Pulses WNL: Yes Peripheral Pulses: Left Radial: 2+, Right Radial: 2+, Left Doralis Pedis: 2+, Right Dorsalis Pedis: 2+ Integumentary: No: Jaundice, Rash Wound/Incision: Yes: Clean/Dry, Well Approximated. 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 POD #4 s/p sigmoid colectomy and end-colostomy Local wound care discontinue NGT start clears advance as tolerated Aspiration precautions rest per primary team Code(s): K56.2 - VOLVULUS (2) Elevated troponin Code(s): R74.8 - ABNORMAL LEVELS OF OTHER SERUM ENZYMES (3) Hypoxemia Code(s): R09.02 - HYPOXEMIA (4) Pneumonia Code(s): J18.9 - PNEUMONIA, UNSPECIFIED ORGANISM (5) COPD (chronic obstructive pulmonary disease) Code(s): J44.9 - CHRONIC OBSTRUCTIVE PULMONARY DISEASE, UNSPECIFIED Qualifiers: Emphysema type: unspecified (6) Diabetes Code(s): E11.9 - TYPE 2 DIABETES MELLITUS WITHOUT COMPLICATIONS (7) Fecal retention Code(s): K59.00 - CONSTIPATION, UNSPECIFIED
[2018-03-31] MEDS: ATORVASTATIN CA 40 MG TABLET (FP) PO SCH (23:52)
[2018-04-01] MEDS: ACETAMINOPHEN 1000 MG/100 ML VIAL (NON FORMULARY) IVPB PRN (02:09)
[2018-04-01] MEDS: INSULIN SLIDING SCALE (NOVOLOG) 1 VIAL SQ SCH ×4 (06:35→21:36)
[2018-04-01] MEDS: D5-1/2NS+20 MEQ KCL - 20 MEQ/1,000 ML INFUS.BAG IV SCH (06:52)
[2018-04-01] MEDS: ALBUTEROL SO4 2.5/IPRATROPIUM 0.5 INH SOL 3 ML VIAL.NEB. NEB SCH (08:20)
[2018-04-01] MEDS ORDERED: PT OWN MED DRAWER 7, Y5N ONE (09:05)
[2018-04-01] MEDS: AMINO ACIDS/PROTEIN HYDROLYS 30 ML LIQUID.PKT PO SCH ×2 (09:06→17:42)
[2018-04-01] MEDS: LISINOPRIL 20 MG TABLET (FP) PO SCH (09:07)
[2018-04-01] MEDS: APIXABAN 5 MG TABLET PO SCH ×2 (09:07→21:36)
[2018-04-01] MEDS: METOPROLOL TARTRATE 50 MG TABLET (FP) PO SCH ×2 (09:07→21:36)
[2018-04-01] MEDS: PANTOPRAZOLE SODIUM 40 MG VIAL IVPUSH SCH (09:08)
[2018-04-01] MEDS: ZINC OXIDE 20% TOPICAL OINTMENT 30 GM TUBE TP SCH ×2 (09:08→21:37)
[2018-04-01] MEDS: POLYETHYLENE GLYCOL 3350 119 GM BTL NGT SCH (09:08)
--- NOTE | 2018-04-01 10:42 | PN ---
Progress Note (short form) - Note Progress Note: Awake and responsive, but confused. No acute events overnight. NGT remains in place. Intake & Output 03/29/18 03/30/18 03/31/18 04/01/18 23:59 23:59 23:59 23:59 Intake Total 1150 1848 1200 1200 Output Total 840 785 400 250 Balance 310 1063 800 950 Weight 308 lb 9.6 oz 224 lb 4.8 oz 224 lb 14.4 oz Last Vital Signs Temp Pulse Resp BP Pulse Ox 98.4 F 66 18 159/99 98 04/01/18 06:00 04/01/18 06:00 04/01/18 06:00 04/01/18 06:00 03/31/18 21:00 Active Medications Albuterol Sulfate (Ventolin 0.083% Nebulizer Soln -) 1 amp NEB Q4H PRN PRN Reason: SHORT OF BREATH/WHEEZING Albuterol/Ipratropium (Duoneb -) 1 amp NEB RQID [facility] Last Admin: 04/01/18 08:20 Dose: 1 amp Amino Acids (Prosource No Carb Liquid Pkt) 30 ml PO BID@0800,1730 [facility] Last Admin: 04/01/18 09:06 Dose: 30 ml Apixaban (Eliquis -) 5 mg PO BID [facility] Last Admin: 04/01/18 09:07 Dose: 5 mg Atorvastatin Calcium (Lipitor -) 40 mg PO HS [facility] Last Admin: 03/31/18 23:52 Dose: 40 mg Emollient Ointment (Aquaphor -) 1 applic TP Q12H PRN PRN Reason: RASH Last Admin: 03/30/18 23:56 Dose: 1 applic Potassium Chloride/Dextrose/Sod Cl (D5-1/2ns+20 Meq Kcl -) 20 meq in 1,000 mls @ 100 mls/hr IV ASDIR [facility] Last Admin: 04/01/18 06:52 Dose: 100 mls/hr Insulin Aspart (Novolog Vial Sliding Scale -) 1 vial SQ ACHS [facility]; Protocol Last Admin: 04/01/18 06:35 Dose: 4 units Lisinopril (Prinivil) 40 mg PO DAILY [facility] Last Admin: 04/01/18 09:07 Dose: 40 mg Methyl Salicylate (Felix-Seaman -) 1 applic TP Q8H PRN PRN Reason: BODY ACHES Metoprolol Tartrate (Lopressor -) 50 mg PO BID [facility] Last Admin: 04/01/18 09:07 Dose: 50 mg Morphine Sulfate (Morphine Sulfate) 4 mg IVPUSH Q4H PRN PRN Reason: PAIN LEVEL 6-10 Last Admin: 03/31/18 17:37 Dose: 4 mg Multi-Ingredient Ointment (Zinc Oxide) 1 applic TP BID [facility] Last Admin: 04/01/18 09:08 Dose: 1 applic Pantoprazole Sodium (Protonix Iv) 40 mg IVPUSH DAILY [facility] Last Admin: 04/01/18 09:08 Dose: 40 mg Polyethylene Glycol (Miralax (For Daily Use) -) 17 gm NGT DAILY [facility] Last Admin: 04/01/18 09:08 Dose: 17 grams Gen: Awake and alert, confused, NAD Heart: RRR Lung: scattered rhonchi Abd: soft, nontender Ext: edema Laboratory Results - last 24 hr 03/31/18 03/31/18 03/31/18 11:46 17:30 23:54 POC Glucometer 170 191 218 04/01/18 06:33 POC Glucometer 223 A/P s/p Acute Hypoxic Respiratory Failure Pneumonia likely Aspiration clinically improved Sigmoid Volvulus s/p Rectal Tube Decompression Sepsis resolved LV Diastolic Dysfunction +Troponins likely Demand Ischemia Paroxysmal Atrial Fibrillation h/o CVA - Enteral feeds per surgery - O2 to keep SpO2 >90% - aspiration precautions - rate control - AC with Sameer Patel
--- NOTE | 2018-04-01 12:07 | PN ---
Progress Note (short form) - Note Progress Note: Chief Complaint: Events noted, notes reviewed, awake and alert, no distress, overall no change in status, resting in bed History of Present Illness: Seen and examined. Events noted, notes reviewed, awake and alert, no distress, overall no change in status, resting in bed Echocardiography dated 12/20/2017 revealed normal LV size and function, trace MR and TR Medications: Current Medications Albuterol/Ipratropium (Duoneb -) 1 amp NEB Q4H PRN PRN Reason: SHORTNESS OF BREATH Amino Acids (Prosource No Carb Liquid Pkt) 30 ml PO BID@0800,1730 [facility] Last Admin: 04/01/18 09:06 Dose: 30 ml Apixaban (Eliquis -) 5 mg PO BID [facility] Last Admin: 04/01/18 09:07 Dose: 5 mg Atorvastatin Calcium (Lipitor -) 40 mg PO HS [facility] Last Admin: 03/31/18 23:52 Dose: 40 mg Emollient Ointment (Aquaphor -) 1 applic TP Q12H PRN PRN Reason: RASH Last Admin: 03/30/18 23:56 Dose: 1 applic Potassium Chloride/Dextrose/Sod Cl (D5-1/2ns+20 Meq Kcl -) 20 meq in 1,000 mls @ 100 mls/hr IV ASDIR [facility] Last Admin: 04/01/18 06:52 Dose: 100 mls/hr Insulin Aspart (Novolog Vial Sliding Scale -) 1 vial SQ ACHS [facility]; Protocol Last Admin: 04/01/18 11:37 Dose: 2 units Lisinopril (Prinivil) 40 mg PO DAILY [facility] Last Admin: 04/01/18 09:07 Dose: 40 mg Methyl Salicylate (Felix-Seaman -) 1 applic TP Q8H PRN PRN Reason: BODY ACHES Metoprolol Tartrate (Lopressor -) 50 mg PO BID [facility] Last Admin: 04/01/18 09:07 Dose: 50 mg Morphine Sulfate (Morphine Sulfate) 4 mg IVPUSH Q4H PRN PRN Reason: PAIN LEVEL 6-10 Last Admin: 03/31/18 17:37 Dose: 4 mg Multi-Ingredient Ointment (Zinc Oxide) 1 applic TP BID [facility] Last Admin: 04/01/18 09:08 Dose: 1 applic Pantoprazole Sodium (Protonix Iv) 40 mg IVPUSH DAILY [facility] Last Admin: 04/01/18 09:08 Dose: 40 mg Polyethylene Glycol (Miralax (For Daily Use) -) 17 gm NGT DAILY [facility] Last Admin: 04/01/18 09:08 Dose: 17 grams Vital Signs: Last Vital Signs Temp Pulse Resp BP Pulse Ox 97.7 F 94 H 24 H 166/74 100 04/01/18 08:10 04/01/18 08:10 04/01/18 08:10 04/01/18 08:10 04/01/18 09:00 Intake & Output 03/29/18 03/30/18 03/31/18 04/01/18 23:59 23:59 23:59 23:59 Intake Total 1150 1848 1200 1200 Output Total 840 785 400 250 Balance 310 1063 800 950 Weight 308 lb 9.6 oz 224 lb 4.8 oz 224 lb 14.4 oz Neck: Supple Negative JVD No Bruit Respiratory: Diminished Breath Sounds at the Bases Bilateral Scattered Rhonchi Cardiovascular: S1 S2 Regularly Rate and Rhythm Gastrointestinal: Soft Benign Normal Bowel Sounds Ext: Trace Edema Bilateral Labs: CBC, BMP 03/31/18 06:15 03/31/18 06:15 Assessment/Plan ASSESSMENT: 1. Post acute Hypoxic Respiratory Failure, related to right lower lobe aspiration pneumonia 2. Intermittent sigmoid volvulus post rectal tube decompression POD#5 sigmoid colectomy, colostomy and umbilical hernia repair 3. 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 Diastolic LV dysfunction with clinical class 0-I NYHA classification LV failure, compensated/euvolemic 5. Paroxysmal atrial fibrillation [id number] score 7 on DOAC's/Eliquis 6. Toxic-metabolic encephelopathy 7. History of CVA with residual right-sided weakness PLAN: 1. Continue Lopressor 2. Continue Lisinopril 3. Continue Lipitor 4. Continue Eliquis with close monitoring of CBC Kadeem Barba M.D.
--- NOTE | 2018-04-01 12:10 | PN ---
Progress Note, Physician Chief Complaint: volvulus History of Present Illness: 77yo male PMH HTN, HLD, CHF, CVA with residual right sided weakness, dysphagia, DM2, COPD presented with weakness and fever 103 from [place]. Remains weak, marginally responsive, on cardizem for Afib which is more rate controlled now. rectal tube was replaced because of recurrent colonic atony and distension. with the rectal tube removed today the patient is passing semiformed stool. Stable post operatively. - Current Medication List Current Medications: Active Medications Albuterol/Ipratropium (Duoneb -) 1 amp NEB Q4H PRN PRN Reason: SHORTNESS OF BREATH Amino Acids (Prosource No Carb Liquid Pkt) 30 ml PO BID@0800,1730 [facility] Last Admin: 04/01/18 09:06 Dose: 30 ml Apixaban (Eliquis -) 5 mg PO BID [facility] Last Admin: 04/01/18 09:07 Dose: 5 mg Atorvastatin Calcium (Lipitor -) 40 mg PO HS [facility] Last Admin: 03/31/18 23:52 Dose: 40 mg Emollient Ointment (Aquaphor -) 1 applic TP Q12H PRN PRN Reason: RASH Last Admin: 03/30/18 23:56 Dose: 1 applic Potassium Chloride/Dextrose/Sod Cl (D5-1/2ns+20 Meq Kcl -) 20 meq in 1,000 mls @ 100 mls/hr IV ASDIR [facility] Last Admin: 04/01/18 06:52 Dose: 100 mls/hr Insulin Aspart (Novolog Vial Sliding Scale -) 1 vial SQ ACHS [facility]; Protocol Last Admin: 04/01/18 11:37 Dose: 2 units Lisinopril (Prinivil) 40 mg PO DAILY [facility] Last Admin: 04/01/18 09:07 Dose: 40 mg Methyl Salicylate (Felix-Seaman -) 1 applic TP Q8H PRN PRN Reason: BODY ACHES Metoprolol Tartrate (Lopressor -) 50 mg PO BID [facility] Last Admin: 04/01/18 09:07 Dose: 50 mg Morphine Sulfate (Morphine Sulfate) 4 mg IVPUSH Q4H PRN PRN Reason: PAIN LEVEL 6-10 Last Admin: 03/31/18 17:37 Dose: 4 mg Multi-Ingredient Ointment (Zinc Oxide) 1 applic TP BID [facility] Last Admin: 04/01/18 09:08 Dose: 1 applic Pantoprazole Sodium (Protonix Iv) 40 mg IVPUSH DAILY [facility] Last Admin: 04/01/18 09:08 Dose: 40 mg Polyethylene Glycol (Miralax (For Daily Use) -) 17 gm NGT DAILY [facility] Last Admin: 04/01/18 09:08 Dose: 17 grams - Objective Vital Signs: Vital Signs Temperature 97.7 F 04/01/18 08:10 Pulse Rate 94 H 04/01/18 08:10 Respiratory Rate 24 H 04/01/18 08:10 Blood Pressure 166/74 04/01/18 08:10 O2 Sat by Pulse Oximetry (%) 100 04/01/18 09:00 Constitutional: Yes: Well Nourished, No Distress, Calm Eyes: Yes: Conjunctiva Clear, EOM Intact HENT: Yes: Atraumatic, Normocephalic Neck: Yes: Supple, Trachea Midline Cardiovascular: Yes: Regular Rate and Rhythm, S1, S2 Respiratory: Yes: Regular, CTA Bilaterally Labs: CBC, BMP 03/31/18 06:15 03/31/18 06:15 INR, PTT INR 1.64 (0.83-1.09) H 03/26/18 11:55 Problem List - Problems (1) Volvulus of sigmoid colon Assessment/Plan: 77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 POD #5 s/p sigmoid colectomy and end-colostomy KUB revied shows contrast in the stump and some distended colon Local wound care discontinue NGT STAT full liquid with protein suppl advance as tolerated Aspiration precautions rest per primary team Code(s): K56.2 - VOLVULUS (2) Elevated troponin Code(s): R74.8 - ABNORMAL LEVELS OF OTHER SERUM ENZYMES (3) Hypoxemia Code(s): R09.02 - HYPOXEMIA (4) Pneumonia Code(s): J18.9 - PNEUMONIA, UNSPECIFIED ORGANISM (5) COPD (chronic obstructive pulmonary disease) Code(s): J44.9 - CHRONIC OBSTRUCTIVE PULMONARY DISEASE, UNSPECIFIED Qualifiers: Emphysema type: unspecified (6) Diabetes Code(s): E11.9 - TYPE 2 DIABETES MELLITUS WITHOUT COMPLICATIONS (7) Fecal retention Code(s): K59.00 - CONSTIPATION, UNSPECIFIED
--- NOTE | 2018-04-01 15:06 | PN ---
Progress Note (short form) - Note Progress Note: s/p sigmoid colectomy , colostomy NPO , NG suction awake no distress Vital Signs - 24 hr 03/31/18 03/31/18 03/31/18 18:48 21:00 23:46 Temperature 99.6 F Pulse Rate 106 H 97 H Respiratory 18 18 Rate Blood Pressure 154/90 159/71 O2 Sat by Pulse 98 Oximetry (%) 04/01/18 04/01/18 04/01/18 02:00 06:00 08:10 Temperature 98.5 F 98.4 F 97.7 F Pulse Rate 104 H 66 94 H Respiratory 18 18 24 H Rate Blood Pressure 157/69 159/99 166/74 O2 Sat by Pulse Oximetry (%) 04/01/18 09:00 Temperature Pulse Rate Respiratory Rate Blood Pressure O2 Sat by Pulse 100 Oximetry (%) Current Medications Generic Name Dose Route Start Last Admin Trade Name Freq PRN Reason Stop Dose Admin Albuterol/Ipratropium 1 amp 04/01/18 10:45 Duoneb - NEB Q4H PRN SHORTNESS OF BREATH Amino Acids 30 ml 03/30/18 17:30 04/01/18 09:06 Prosource No Carb Liquid Pkt PO 30 ml BID@0800,1730 [facility] Administration Apixaban 5 mg 03/29/18 22:00 04/01/18 09:07 Eliquis - PO 5 mg BID [facility] Administration Atorvastatin Calcium 40 mg 03/30/18 22:00 03/31/18 23:52 Lipitor - PO 40 mg HS [facility] Administration Emollient Ointment 1 applic 03/30/18 19:36 03/30/18 23:56 Aquaphor - TP 1 applic Q12H PRN Administration RASH Potassium Chloride/Dextrose/Sod Cl 20 meq in 1,000 mls @ 100 mls/hr 03/30/18 07:55 04/01/18 06:52 D5-1/2ns+20 Meq Kcl - IV 100 mls/hr ASDIR [facility] Administration Insulin Aspart 1 vial 03/30/18 16:30 04/01/18 11:37 Novolog Vial Sliding Scale - SQ 2 units ACHS [facility] Administration Protocol Lisinopril 40 mg 03/31/18 10:00 04/01/18 09:07 Prinivil PO 40 mg DAILY [facility] Administration Methyl Salicylate 1 applic 03/30/18 13:58 Felix-Seaman - TP Q8H PRN BODY ACHES Metoprolol Tartrate 50 mg 03/30/18 22:00 04/01/18 09:07 Lopressor - PO 50 mg BID [facility] Administration Morphine Sulfate 4 mg 03/29/18 22:47 03/31/18 17:37 Morphine Sulfate IVPUSH 4 mg Q4H PRN Administration PAIN LEVEL 6-10 Multi-Ingredient Ointment 1 applic 03/30/18 22:00 04/01/18 09:08 Zinc Oxide TP 1 applic BID [facility] Administration Pantoprazole Sodium 40 mg 03/31/18 10:00 04/01/18 09:08 Protonix Iv IVPUSH 40 mg DAILY [facility] Administration Polyethylene Glycol 17 gm 03/30/18 16:30 04/01/18 09:08 Miralax (For Daily Use) - NGT 17 grams DAILY [facility] Administration Laboratory Results - last 24 hr 03/31/18 03/31/18 04/01/18 17:30 23:54 06:33 POC Glucometer 191 218 223 04/01/18 11:29 POC Glucometer 185 S1 S2 irregular Lungs decreased ABd- soft, tender+, dressing noted in midline no bowel sounds colostomy--dark fluid edema+ PLAN can not tolerate PO iv fluids NPO off antibiotics incentive spirometry CXR-- atelectasis Problem List - Problems (1) Demand ischemia Code(s): I24.8 - OTHER FORMS OF ACUTE ISCHEMIC HEART DISEASE (2) Elevated troponin Code(s): R74.8 - ABNORMAL LEVELS OF OTHER SERUM ENZYMES (3) Pneumonia Code(s): J18.9 - PNEUMONIA, UNSPECIFIED ORGANISM (4) Rapid atrial fibrillation Code(s): I48.91 - UNSPECIFIED ATRIAL FIBRILLATION (5) Sepsis Code(s): A41.9 - SEPSIS, UNSPECIFIED ORGANISM Qualifiers: Sepsis type: sepsis due to unspecified organism Qualified Code(s): A41.9 - Sepsis, unspecified organism
[2018-04-01] MEDS ORDERED: AMINO ACIDS/PROTEIN HYDROLYS 30 ML LIQUID.PKT PO SCH (17:30)
[2018-04-01] MEDS: AMINO ACIDS 4.25%/D5W 1,000 ML IV SCH (17:42)
[2018-04-01] MEDS: ATORVASTATIN CA 40 MG TABLET (FP) PO SCH (21:36)
[2018-04-01] MEDS: morphine SULFATE 4 MG/ML VIAL IVPUSH PRN (21:44)
[2018-04-02] MEDS: AMINO ACIDS 4.25%/D5W 1,000 ML IV SCH ×3 (05:09→21:08)
[2018-04-02] MEDS: INSULIN SLIDING SCALE (NOVOLOG) 1 VIAL SQ SCH ×4 (06:45→21:15)
[2018-04-02 07:32] LABS: HEMOGLOBIN 11.2 GM/dL (11.7-16.9); MCH 30.1 pg (25.7-33.7); MEAN CELL VOLUME 91.3 fl (80-96); PLATELET COUNT 362 K/MM3 (134-434); RBC 3.72 M/mm3 (4.00-5.60); RDW 15.4 % (11.9-15.9); WHITE BLOOD COUNT 13.6 K/mm3 (4.0-10.0)
[2018-04-02 08:15] LABS: ANION GAP 11 MMOL/L (8-16); BLOOD UREA NITROGEN 8 mg/dL (7-18); CALCIUM 7.9 mg/dL (8.5-10.1); CHLORIDE 97 mmol/L (98-107); CO2 27 mmol/L (21-32); CREATININE 0.5 mg/dL (0.55-1.3); GLUCOSE,RANDOM 225 mg/dL (74-106); MAGNESIUM 1.8 mg/dL (1.8-2.4); POTASSIUM 3.6 mmol/L (3.5-5.1); SODIUM 135 mmol/L (136-145)
--- NOTE | 2018-04-02 08:31 | PN ---
Progress Note (short form) - Note Progress Note: s/p sigmoid colectomy , colostomy started clears yesterday awake no distress Vital Signs - 24 hr 04/01/18 04/01/18 04/01/18 17:35 21:00 22:00 Temperature 98.1 F 99.1 F Pulse Rate 105 H 65 Respiratory 20 20 Rate Blood Pressure 142/96 178/83 H O2 Sat by Pulse 96 Oximetry (%) 04/02/18 06:00 Temperature 98.2 F Pulse Rate 97 H Respiratory 20 Rate Blood Pressure 158/81 O2 Sat by Pulse Oximetry (%) Current Medications Generic Name Dose Route Start Last Admin Trade Name Freq PRN Reason Stop Dose Admin Albuterol/Ipratropium 1 amp 04/01/18 10:45 Duoneb - NEB Q4H PRN SHORTNESS OF BREATH Amino Acids 30 ml 03/30/18 17:30 04/02/18 09:34 Prosource No Carb Liquid Pkt PO 30 ml BID@0800,1730 [facility] Administration Amlodipine Besylate 10 mg 04/02/18 10:00 04/02/18 09:42 Norvasc - PO 10 mg DAILY [facility] Administration Apixaban 5 mg 03/29/18 22:00 04/02/18 09:35 Eliquis - PO 5 mg BID [facility] Administration Atorvastatin Calcium 40 mg 03/30/18 22:00 04/01/18 21:36 Lipitor - PO 40 mg HS [facility] Administration Emollient Ointment 1 applic 03/30/18 19:36 03/30/18 23:56 Aquaphor - TP 1 applic Q12H PRN Administration RASH Amino Acids 1,000 mls @ 42 mls/hr 04/02/18 08:31 04/02/18 09:36 Clinimix - IV 42 mls/hr Q12H [facility] Administration Insulin Aspart 1 vial 03/30/18 16:30 04/02/18 12:33 Novolog Vial Sliding Scale - SQ 4 units ACHS [facility] Administration Protocol Lisinopril 40 mg 03/31/18 10:00 04/02/18 09:34 Prinivil PO 40 mg DAILY [facility] Administration Methyl Salicylate 1 applic 03/30/18 13:58 Felix-Seaman - TP Q8H PRN BODY ACHES Metoprolol Tartrate 50 mg 03/30/18 22:00 04/02/18 09:34 Lopressor - PO 50 mg BID [facility] Administration Morphine Sulfate 2 mg 04/02/18 09:05 Morphine Injection - IVPUSH Q6H PRN PAIN LEVEL 6-10 Multi-Ingredient Ointment 1 applic 03/30/18 22:00 04/02/18 09:35 Zinc Oxide TP 1 applic BID [facility] Administration Pantoprazole Sodium 40 mg 03/31/18 10:00 04/02/18 09:34 Protonix Iv IVPUSH 40 mg DAILY [facility] Administration Polyethylene Glycol 17 gm 03/30/18 16:30 04/02/18 09:36 Miralax (For Daily Use) - NGT 17 grams DAILY [facility] Administration Laboratory Results - last 24 hr 04/01/18 04/02/18 04/02/18 21:32 06:41 07:00 WBC 13.6 H RBC 3.72 L Hgb 11.2 L Hct 34.0 L MCV 91.3 MCH 30.1 MCHC 33.0 RDW 15.4 Plt Count 362 D MPV 9.0 Sodium Potassium Chloride Carbon Dioxide Anion Gap BUN Creatinine Creat Clearance w eGFR POC Glucometer 212 267 Random Glucose Calcium Magnesium 04/02/18 04/02/18 07:00 12:31 WBC RBC Hgb Hct MCV MCH MCHC RDW Plt Count MPV Sodium 135 L Potassium 3.6 Chloride 97 L Carbon Dioxide 27 Anion Gap 11 BUN 8 Creatinine 0.5 L Creat Clearance w eGFR > 60 POC Glucometer 237 Random Glucose 225 H Calcium 7.9 L Magnesium 1.8 S1 S2 irregular Lungs decreased ABd- soft, tender+, dressing noted in midline colostomy--brown liquid stool edema+ PLAN clear liquids clinimix decreased off antibiotics incentive spirometry CXR-- atelectasis Problem List - Problems (1) Demand ischemia Code(s): I24.8 - OTHER FORMS OF ACUTE ISCHEMIC HEART DISEASE (2) Elevated troponin Code(s): R74.8 - ABNORMAL LEVELS OF OTHER SERUM ENZYMES (3) Pneumonia Code(s): J18.9 - PNEUMONIA, UNSPECIFIED ORGANISM (4) Rapid atrial fibrillation Code(s): I48.91 - UNSPECIFIED ATRIAL FIBRILLATION (5) Sepsis Code(s): A41.9 - SEPSIS, UNSPECIFIED ORGANISM Qualifiers: Sepsis type: sepsis due to unspecified organism Qualified Code(s): A41.9 - Sepsis, unspecified organism
[2018-04-02] MEDS ORDERED: PT OWN MED DRAWER 7, Y5N ONE ×2 (09:02→21:39)
[2018-04-02] MEDS ORDERED: morphine CARPU-JECT 2 MG/1 ML DISP.SYRIN IVPUSH PRN (09:05)
[2018-04-02] MEDS: METOPROLOL TARTRATE 50 MG TABLET (FP) PO SCH ×2 (09:34→21:07)
[2018-04-02] MEDS: AMINO ACIDS/PROTEIN HYDROLYS 30 ML LIQUID.PKT PO SCH ×2 (09:34→17:40)
[2018-04-02] MEDS: PANTOPRAZOLE SODIUM 40 MG VIAL IVPUSH SCH (09:34)
[2018-04-02] MEDS: LISINOPRIL 20 MG TABLET (FP) PO SCH (09:34)
[2018-04-02] MEDS: APIXABAN 5 MG TABLET PO SCH (09:35)
[2018-04-02] MEDS: ZINC OXIDE 20% TOPICAL OINTMENT 30 GM TUBE TP SCH ×2 (09:35→21:17)
[2018-04-02] MEDS: POLYETHYLENE GLYCOL 3350 119 GM BTL NGT SCH (09:36)
[2018-04-02] MEDS: amLODIPine BESYLATE 10 MG TABLET (FP) PO SCH (09:42)
--- NOTE | 2018-04-02 11:16 | PN ---
Progress Note (short form) - Note Progress Note: Awake and responsive. No acute events overnight. Intake & Output 03/30/18 03/31/18 04/01/18 04/02/18 23:59 23:59 23:59 23:59 Intake Total 1848 1200 2292 1008 Output Total 785 400 280 Balance 0596 096 6304 1008 Weight 224 lb 4.8 oz 224 lb 14.4 oz 222 lb 1.6 oz Last Vital Signs Temp Pulse Resp BP Pulse Ox 98.2 F 97 H 20 158/81 96 04/02/18 06:00 04/02/18 06:00 04/02/18 06:00 04/02/18 06:00 04/01/18 21:00 Active Medications Albuterol/Ipratropium (Duoneb -) 1 amp NEB Q4H PRN PRN Reason: SHORTNESS OF BREATH Amino Acids (Prosource No Carb Liquid Pkt) 30 ml PO BID@0800,1730 [facility] Last Admin: 04/02/18 09:34 Dose: 30 ml Amlodipine Besylate (Norvasc -) 10 mg PO DAILY [facility] Last Admin: 04/02/18 09:42 Dose: 10 mg Apixaban (Eliquis -) 5 mg PO BID [facility] Last Admin: 04/02/18 09:35 Dose: 5 mg Atorvastatin Calcium (Lipitor -) 40 mg PO HS [facility] Last Admin: 04/01/18 21:36 Dose: 40 mg Emollient Ointment (Aquaphor -) 1 applic TP Q12H PRN PRN Reason: RASH Last Admin: 03/30/18 23:56 Dose: 1 applic Amino Acids (Clinimix -) 1,000 mls @ 42 mls/hr IV Q12H [facility] Last Admin: 04/02/18 09:36 Dose: 42 mls/hr Insulin Aspart (Novolog Vial Sliding Scale -) 1 vial SQ ACHS [facility]; Protocol Last Admin: 04/02/18 06:45 Dose: 6 units Lisinopril (Prinivil) 40 mg PO DAILY [facility] Last Admin: 04/02/18 09:34 Dose: 40 mg Methyl Salicylate (Felix-Seaman -) 1 applic TP Q8H PRN PRN Reason: BODY ACHES Metoprolol Tartrate (Lopressor -) 50 mg PO BID [facility] Last Admin: 04/02/18 09:34 Dose: 50 mg Morphine Sulfate (Morphine Injection -) 2 mg IVPUSH Q6H PRN PRN Reason: PAIN LEVEL 6-10 Multi-Ingredient Ointment (Zinc Oxide) 1 applic TP BID [facility] Last Admin: 04/02/18 09:35 Dose: 1 applic Pantoprazole Sodium (Protonix Iv) 40 mg IVPUSH DAILY [facility] Last Admin: 04/02/18 09:34 Dose: 40 mg Polyethylene Glycol (Miralax (For Daily Use) -) 17 gm NGT DAILY [facility] Last Admin: 04/02/18 09:36 Dose: 17 grams Gen: Awake and alert, confused, NAD Heart: RRR Lung: scattered rhonchi Abd: soft, nontender Ext: edema Laboratory Results - last 24 hr 04/01/18 04/01/18 04/01/18 11:29 16:43 21:32 WBC RBC Hgb Hct MCV MCH MCHC RDW Plt Count MPV Sodium Potassium Chloride Carbon Dioxide Anion Gap BUN Creatinine Creat Clearance w eGFR POC Glucometer 185 209 212 Random Glucose Calcium Magnesium 04/02/18 04/02/18 04/02/18 06:41 07:00 07:00 WBC 13.6 H RBC 3.72 L Hgb 11.2 L Hct 34.0 L MCV 91.3 MCH 30.1 MCHC 33.0 RDW 15.4 Plt Count 362 D MPV 9.0 Sodium 135 L Potassium 3.6 Chloride 97 L Carbon Dioxide 27 Anion Gap 11 BUN 8 Creatinine 0.5 L Creat Clearance w eGFR > 60 POC Glucometer 267 Random Glucose 225 H Calcium 7.9 L Magnesium 1.8 A/P s/p Acute Hypoxic Respiratory Failure Pneumonia likely Aspiration clinically improved Sigmoid Volvulus s/p Rectal Tube Decompression Sepsis resolved LV Diastolic Dysfunction +Troponins likely Demand Ischemia Paroxysmal Atrial Fibrillation h/o CVA - PO as tolerated - O2 to keep SpO2 >90% - aspiration precautions - rate control - AC with Sameer Patel
--- NOTE | 2018-04-02 11:44 | PN ---
Progress Note (short form) - Note Progress Note: Chief Complaint: Events noted, notes reviewed, awake and alert, no distress, overall no change in status, resting in bed, but blood staining noted in the inguinal region and his diaper History of Present Illness: Seen and examined. Events noted, notes reviewed, awake and alert, no distress, overall no change in status, resting in bed, but blood staining noted in the inguinal region and his diaper Echocardiography dated 12/20/2017 revealed normal LV size and function, trace MR and TR Medications: Current Medications Albuterol/Ipratropium (Duoneb -) 1 amp NEB Q4H PRN PRN Reason: SHORTNESS OF BREATH Amino Acids (Prosource No Carb Liquid Pkt) 30 ml PO BID@0800,1730 [facility] Last Admin: 04/02/18 09:34 Dose: 30 ml Amlodipine Besylate (Norvasc -) 10 mg PO DAILY [facility] Last Admin: 04/02/18 09:42 Dose: 10 mg Apixaban (Eliquis -) 5 mg PO BID [facility] Last Admin: 04/02/18 09:35 Dose: 5 mg Atorvastatin Calcium (Lipitor -) 40 mg PO HS [facility] Last Admin: 04/01/18 21:36 Dose: 40 mg Emollient Ointment (Aquaphor -) 1 applic TP Q12H PRN PRN Reason: RASH Last Admin: 03/30/18 23:56 Dose: 1 applic Amino Acids (Clinimix -) 1,000 mls @ 42 mls/hr IV Q12H [facility] Last Admin: 04/02/18 09:36 Dose: 42 mls/hr Insulin Aspart (Novolog Vial Sliding Scale -) 1 vial SQ ACHS [facility]; Protocol Last Admin: 04/02/18 06:45 Dose: 6 units Lisinopril (Prinivil) 40 mg PO DAILY [facility] Last Admin: 04/02/18 09:34 Dose: 40 mg Methyl Salicylate (Felix-Seaman -) 1 applic TP Q8H PRN PRN Reason: BODY ACHES Metoprolol Tartrate (Lopressor -) 50 mg PO BID [facility] Last Admin: 04/02/18 09:34 Dose: 50 mg Morphine Sulfate (Morphine Injection -) 2 mg IVPUSH Q6H PRN PRN Reason: PAIN LEVEL 6-10 Multi-Ingredient Ointment (Zinc Oxide) 1 applic TP BID [facility] Last Admin: 04/02/18 09:35 Dose: 1 applic Pantoprazole Sodium (Protonix Iv) 40 mg IVPUSH DAILY [facility] Last Admin: 04/02/18 09:34 Dose: 40 mg Polyethylene Glycol (Miralax (For Daily Use) -) 17 gm NGT DAILY [facility] Last Admin: 04/02/18 09:36 Dose: 17 grams Vital Signs: Last Vital Signs Temp Pulse Resp BP Pulse Ox 98.2 F 97 H 20 158/81 96 04/02/18 06:00 04/02/18 06:00 04/02/18 06:00 04/02/18 06:00 04/01/18 21:00 Intake & Output 03/30/18 03/31/18 04/01/18 04/02/18 23:59 23:59 23:59 23:59 Intake Total 1848 1200 2292 1008 Output Total 785 400 280 Balance 1572 102 7658 1008 Weight 224 lb 4.8 oz 224 lb 14.4 oz 222 lb 1.6 oz Neck: Supple Negative JVD No Bruit Respiratory: Diminished Breath Sounds at the Bases Bilateral Scattered Rhonchi Cardiovascular: S1 S2 Regularly Rate and Rhythm Gastrointestinal: Soft Benign Normal Bowel Sounds Ext: Trace Edema Bilateral Labs: CBC, BMP 04/02/18 07:00 04/02/18 07:00 Assessment/Plan ASSESSMENT: 1. Post acute Hypoxic Respiratory Failure, related to right lower lobe aspiration pneumonia 2. Intermittent sigmoid volvulus post rectal tube decompression POD#6 sigmoid colectomy, colostomy and umbilical hernia repair 3. 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 Diastolic LV dysfunction with clinical class 0-I NYHA classification LV failure, compensated/euvolemic 5. Paroxysmal atrial fibrillation [id number] score 7 on DOAC's/Eliquis 6. Toxic-metabolic encephelopathy 7. History of CVA with residual right-sided weakness 8. Bleeding/inguinal region source to be determined PLAN: 1. Continue Lopressor 2. Continue Lisinopril 3. Continue Lipitor 4. Recommend withholding Eliquis therapy pending evaluation of source of bleed, primary and surgical team to address Kadeem Barba M.D.
[2018-04-02] MEDS: ATORVASTATIN CA 40 MG TABLET (FP) PO SCH (21:07)
[2018-04-03] MEDS: AMINO ACIDS 4.25%/D5W 1,000 ML IV SCH ×3 (00:56→22:03)
[2018-04-03] MEDS ORDERED: MORPHINE SULFATE 2 MG/ML VIAL IVPUSH PRN (04:05)
[2018-04-03] MEDS: INSULIN SLIDING SCALE (NOVOLOG) 1 VIAL SQ SCH ×4 (06:03→22:03)
[2018-04-03 07:46] LABS: HEMOGLOBIN 11.5 GM/dL (11.7-16.9); MCH 30.3 pg (25.7-33.7); MCHC 33.8 g/dl (32.0-35.9); MEAN CELL VOLUME 89.8 fl (80-96); MEAN PLT VOLUME 8.5 fl (7.5-11.1); PLATELET COUNT 405 K/MM3 (134-434); RBC 3.79 M/mm3 (4.00-5.60); RDW 15.6 % (11.9-15.9); WHITE BLOOD COUNT 11.6 K/mm3 (4.0-10.0)
[2018-04-03] MEDS: AMINO ACIDS/PROTEIN HYDROLYS 30 ML LIQUID.PKT PO SCH ×2 (08:24→18:09)
[2018-04-03] MEDS ORDERED: PT OWN MED DRAWER 7, Y5N ONE (10:21)
[2018-04-03] MEDS: PANTOPRAZOLE SODIUM 40 MG VIAL IVPUSH SCH (10:24)
[2018-04-03] MEDS: amLODIPine BESYLATE 10 MG TABLET (FP) PO SCH (10:24)
[2018-04-03] MEDS: LISINOPRIL 20 MG TABLET (FP) PO SCH (10:25)
[2018-04-03] MEDS: METOPROLOL TARTRATE 50 MG TABLET (FP) PO SCH ×2 (10:25→22:04)
[2018-04-03] MEDS: POLYETHYLENE GLYCOL 3350 119 GM BTL NGT SCH (10:26)
[2018-04-03] MEDS: MINERAL OIL/PET HY-PHL TOPICAL OINTMENT 454 GM JAR TP PRN (10:27)
[2018-04-03] MEDS: ZINC OXIDE 20% TOPICAL OINTMENT 30 GM TUBE TP SCH ×2 (10:27→22:04)
--- NOTE | 2018-04-03 10:55 | PN ---
Progress Note, Physician History of Present Illness: POD#7 open sigmoid colectomy, rate-controlled afib, tolerating full liquid diet , Eliqus held for wound site bleed since resolved. - Current Medication List Current Medications: Active Medications Albuterol/Ipratropium (Duoneb -) 1 amp NEB Q4H PRN PRN Reason: SHORTNESS OF BREATH Amino Acids (Prosource No Carb Liquid Pkt) 30 ml PO BID@0800,1730 [facility] Last Admin: 04/03/18 08:24 Dose: 30 ml Amlodipine Besylate (Norvasc -) 10 mg PO DAILY [facility] Last Admin: 04/03/18 10:24 Dose: 10 mg Atorvastatin Calcium (Lipitor -) 40 mg PO HS [facility] Last Admin: 04/02/18 21:07 Dose: 40 mg Emollient Ointment (Aquaphor -) 1 applic TP Q12H PRN PRN Reason: RASH Last Admin: 04/03/18 10:27 Dose: 1 applic Amino Acids (Clinimix -) 1,000 mls @ 42 mls/hr IV Q12H [facility] Last Admin: 04/03/18 10:17 Dose: Not Given Insulin Aspart (Novolog Vial Sliding Scale -) 1 vial SQ ACHS [facility]; Protocol Last Admin: 04/03/18 06:03 Dose: 4 units Lisinopril (Prinivil) 40 mg PO DAILY [facility] Last Admin: 04/03/18 10:25 Dose: 40 mg Methyl Salicylate (Felix-Seaman -) 1 applic TP Q8H PRN PRN Reason: BODY ACHES Metoprolol Tartrate (Lopressor -) 50 mg PO BID [facility] Last Admin: 04/03/18 10:25 Dose: 50 mg Morphine Sulfate (Morphine Sulfate) 2 mg IVPUSH Q6H PRN PRN Reason: PAIN LEVEL 6-10 Multi-Ingredient Ointment (Zinc Oxide) 1 applic TP BID [facility] Last Admin: 04/03/18 10:27 Dose: 1 applic Pantoprazole Sodium (Protonix Iv) 40 mg IVPUSH DAILY [facility] Last Admin: 04/03/18 10:24 Dose: 40 mg Polyethylene Glycol (Miralax (For Daily Use) -) 17 gm NGT DAILY [facility] Last Admin: 04/03/18 10:26 Dose: 17 grams - Objective Vital Signs: Vital Signs Temperature 98.6 F 04/03/18 06:00 Pulse Rate 84 04/03/18 06:00 Respiratory Rate 20 04/03/18 06:00 Blood Pressure 134/91 04/03/18 06:00 O2 Sat by Pulse Oximetry (%) 96 04/02/18 21:00 Constitutional: Yes: No Distress, Calm, Thin Neck: Yes: Supple Cardiovascular: Yes: Pulse Irregular Respiratory: Yes: Regular, Diminished, On Nasal O2 Gastrointestinal: Yes: Normal Bowel Sounds, Soft, Other (colostomy) Edema: No Labs: CBC, BMP 04/03/18 06:15 04/02/18 07:00 INR, PTT INR 1.64 (0.83-1.09) H 03/26/18 11:55 Problem List - Problems (1) Elevated troponin Code(s): R74.8 - ABNORMAL LEVELS OF OTHER SERUM ENZYMES (2) Rapid atrial fibrillation Code(s): I48.91 - UNSPECIFIED ATRIAL FIBRILLATION (3) Diastolic dysfunction Code(s): I51.9 - HEART DISEASE, UNSPECIFIED (4) H/O: CVA (cerebrovascular accident) Code(s): Z86.73 - PRSNL HX OF TIA (TIA), AND CEREB INFRC W/O RESID DEFICITS (5) Hyperlipidemia Code(s): E78.5 - HYPERLIPIDEMIA, UNSPECIFIED Qualifiers: Hyperlipidemia type: pure hypercholesterolemia Qualified Code(s): E78.00 - Pure hypercholesterolemia, unspecified; E78.0 - Pure hypercholesterolemia (6) Hypertension Code(s): I10 - ESSENTIAL (PRIMARY) HYPERTENSION Qualifiers: Hypertension type: essential hypertension Qualified Code(s): I10 - Essential (primary) hypertension (7) Pneumonia Code(s): J18.9 - PNEUMONIA, UNSPECIFIED ORGANISM Qualifiers: Pneumonia type: due to unspecified organism Laterality: right Lung location: lower lobe of lung Qualified Code(s): J18.1 - Lobar pneumonia, unspecified organism (8) Toxic metabolic encephalopathy Code(s): G92 - TOXIC ENCEPHALOPATHY (9) Demand ischemia Code(s): I24.8 - OTHER FORMS OF ACUTE ISCHEMIC HEART DISEASE (10) Premature ventricular contraction Code(s): I49.3 - VENTRICULAR PREMATURE DEPOLARIZATION (11) Volvulus of descending colon Code(s): K56.2 - VOLVULUS (12) Chronic anticoagulation Code(s): Z79.01 - CUSTODIAL (CURRENT) USE OF ANTICOAGULANTS (13) History of open sigmoidectomy Code(s): Z98.890 - OTHER SPECIFIED POSTPROCEDURAL STATES; Z90.49 - ACQUIRED ABSENCE OF OTHER SPECIFIED PARTS OF DIGESTIVE TRACT Assessment/Plan 12/20/2017 Echo: Normal LV size and fxn, tr MR, TR 1. s/p Acute Hypoxic Respiratory Failure and right lower lobe aspiration pneumonia post abx course 2. Intermittent sigmoid volvulus post rectal tube decompression and now POD#7 sigmoid colectomy, colostomy and umbilical hernia repair 3. 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 Diastolic LV dysfunction with clinical class 0-I NYHA classification LV failure, compensated/euvolemic 5. Paroxysmal atrial fibrillation [id number] score 7 6. Toxic-metabolic encephalopathy 7. History of CVA with residual right-sided weakness PLAN: 1. Clear liquid diet as tolerated, local wound care, OOB to chair 2. Completed empiric antibiotic coverage, observe off abx 3. Continue Lopressor 50 mg BID, Lisinopril 40 mg QD, Norvasc 10 qd and Lipitor 40 qd 4. Resume Eliquis 5 mg BID once post-op hemostasis achieved
--- NOTE | 2018-04-03 11:09 | PN ---
Progress Note (short form) - Note Progress Note: Awake and responsive. No acute events overnight. Intake & Output 03/31/18 04/01/18 04/02/18 04/03/18 23:59 23:59 23:59 23:59 Intake Total 1200 2292 2070 500 Output Total 400 280 Balance 800 2011 2069 500 Weight 224 lb 4.8 oz 224 lb 14.4 oz 222 lb 1.6 oz 217 lb 12.8 oz Last Vital Signs Temp Pulse Resp BP Pulse Ox 98.6 F 84 20 134/91 96 04/03/18 06:00 04/03/18 06:00 04/03/18 06:00 04/03/18 06:00 04/02/18 21:00 Active Medications Albuterol/Ipratropium (Duoneb -) 1 amp NEB Q4H PRN PRN Reason: SHORTNESS OF BREATH Amino Acids (Prosource No Carb Liquid Pkt) 30 ml PO BID@0800,1730 [facility] Last Admin: 04/03/18 08:24 Dose: 30 ml Amlodipine Besylate (Norvasc -) 10 mg PO DAILY [facility] Last Admin: 04/03/18 10:24 Dose: 10 mg Atorvastatin Calcium (Lipitor -) 40 mg PO HS [facility] Last Admin: 04/02/18 21:07 Dose: 40 mg Emollient Ointment (Aquaphor -) 1 applic TP Q12H PRN PRN Reason: RASH Last Admin: 04/03/18 10:27 Dose: 1 applic Amino Acids (Clinimix -) 1,000 mls @ 42 mls/hr IV Q12H [facility] Last Admin: 04/03/18 10:17 Dose: Not Given Insulin Aspart (Novolog Vial Sliding Scale -) 1 vial SQ ACHS [facility]; Protocol Last Admin: 04/03/18 06:03 Dose: 4 units Lisinopril (Prinivil) 40 mg PO DAILY [facility] Last Admin: 04/03/18 10:25 Dose: 40 mg Methyl Salicylate (Felix-Seaman -) 1 applic TP Q8H PRN PRN Reason: BODY ACHES Metoprolol Tartrate (Lopressor -) 50 mg PO BID [facility] Last Admin: 04/03/18 10:25 Dose: 50 mg Morphine Sulfate (Morphine Sulfate) 2 mg IVPUSH Q6H PRN PRN Reason: PAIN LEVEL 6-10 Multi-Ingredient Ointment (Zinc Oxide) 1 applic TP BID [facility] Last Admin: 04/03/18 10:27 Dose: 1 applic Pantoprazole Sodium (Protonix Iv) 40 mg IVPUSH DAILY [facility] Last Admin: 04/03/18 10:24 Dose: 40 mg Polyethylene Glycol (Miralax (For Daily Use) -) 17 gm NGT DAILY [facility] Last Admin: 04/03/18 10:26 Dose: 17 grams Gen: Awake and alert, confused, NAD Heart: RRR Lung: scattered rhonchi Abd: soft, nontender Ext: edema Laboratory Results - last 24 hr 04/02/18 04/02/18 04/02/18 12:31 17:33 21:14 WBC RBC Hgb Hct MCV MCH MCHC RDW Plt Count MPV POC Glucometer 237 241 252 04/03/18 04/03/18 05:46 06:15 WBC 11.6 H RBC 3.79 L Hgb 11.5 L Hct 34.0 L MCV 89.8 MCH 30.3 MCHC 33.8 RDW 15.6 Plt Count 405 MPV 8.5 POC Glucometer 236 A/P s/p Acute Hypoxic Respiratory Failure Pneumonia likely Aspiration clinically improved Sigmoid Volvulus s/p Rectal Tube Decompression Sepsis resolved LV Diastolic Dysfunction +Troponins likely Demand Ischemia Paroxysmal Atrial Fibrillation h/o CVA - PO as tolerated - O2 to keep SpO2 >90% - aspiration precautions - rate control - AC with Eliquis when cleared b y surgery Dr Patel
--- NOTE | 2018-04-03 11:48 | PN ---
Progress Note (short form) - Note Progress Note: much more alert bottome of incision opened- cloudy draiange sent for culture, wound packed s/p ex lap 03/27 with sigmoid colectomy , end colostomy and umbilical hernia repair Vital Signs Period Temp Pulse Resp BP Sys/Pham Pulse Ox Last 24 Hr 97.5 F-99.5 F 72-103 20-22 134-152/81-91 96 cor-rrr lungs scattered rhonchi abd soft, +ostomy karon intact, lower aspect of owund packed ext no edema CBC, BMP 04/03/18 06:15 04/02/18 07:00 Microbiology 03/29/18 18:00 Blood - Peripheral Venous Blood Culture - Preliminary NO GROWTH OBTAINED AFTER 96 HOURS, INCUBATION TO CONTINUE FOR 1 DAYS. 03/29/18 16:00 Blood - Peripheral Venous Blood Culture - Preliminary NO GROWTH OBTAINED AFTER 96 HOURS, INCUBATION TO CONTINUE FOR 1 DAYS. 03/29/18 15:32 Sputum - Oropharynx Suctioned Sputum Gram Stain - Final 03/29/18 15:32 Sputum - Oropharynx Suctioned Sputum Sputum Culture - Final NORMAL RESPIRATORY MELITON 03/29/18 15:32 Urine - Urine Davis Urine Culture - Final NO GROWTH OBTAINED 03/24/18 12:42 Blood - Peripheral Venous Blood Culture - Final NO GROWTH AFTER 5 DAYS INCUBATION 03/24/18 12:42 Blood - Peripheral Venous Blood Culture - Final NO GROWTH AFTER 5 DAYS INCUBATION 03/11/18 14:50 Blood - Peripheral Venous Blood Culture - Final NO GROWTH AFTER 5 DAYS INCUBATION 03/11/18 14:45 Blood - Peripheral Venous Blood Culture - Final NO GROWTH AFTER 5 DAYS INCUBATION 02/28/18 20:25 Blood - Peripheral Venous Blood Culture - Final NO GROWTH AFTER 5 DAYS INCUBATION 02/28/18 20:25 Blood - Peripheral Venous Blood Culture - Final NO GROWTH AFTER 5 DAYS INCUBATION 03/03/18 06:00 Stool Clostridium difficile Antigen (AMY) - Final 03/03/18 06:00 Stool Clostridium difficile Toxin Assay - Final 03/01/18 20:30 Nares - Mrsa Screen - Right MRSA Screen - Final NO MRSA ISOLATED 03/01/18 20:30 Nares - Mrsa Screen - Left MRSA Screen - Final NO MRSA ISOLATED 02/28/18 22:53 Urine - Urine Clean Catch Urine Culture - Final NO GROWTH OBTAINED 03/01/18 11:20 Urine For Antigen Detection Legionella Antigen - Final 03/01/18 11:20 Urine For Antigen Detection Streptococcus pneumoniae Antigen (M - Final 02/28/18 23:30 Nasopharyngeal Swab Influenza Types A,B Antigen - Final 02/28/18 23:30 Nasopharyngeal Swab - Final a/p s/p sigmoid colectomy pod #7 encourage incentive spirometry reculture for fever lower aspect of wound packed observe off antibiotics f/u cultures afib- improved on meds Problem List - Problems (1) Sepsis Code(s): A41.9 - SEPSIS, UNSPECIFIED ORGANISM Qualifiers: Sepsis type: sepsis due to unspecified organism Qualified Code(s): A41.9 - Sepsis, unspecified organism (2) Pneumonia Code(s): J18.9 - PNEUMONIA, UNSPECIFIED ORGANISM (3) Hypoxemia Code(s): R09.02 - HYPOXEMIA (4) COPD exacerbation Code(s): J44.1 - CHRONIC OBSTRUCTIVE PULMONARY DISEASE W (ACUTE) EXACERBATION (5) Rapid atrial fibrillation Code(s): I48.91 - UNSPECIFIED ATRIAL FIBRILLATION (6) Elevated troponin Code(s): R74.8 - ABNORMAL LEVELS OF OTHER SERUM ENZYMES (7) Prolonged Q-T interval on ECG Code(s): R94.31 - ABNORMAL ELECTROCARDIOGRAM [ECG] [EKG]
--- NOTE | 2018-04-03 11:56 | PN ---
Progress Note (short form) - Note Progress Note: Pt seen/ examined chart reviewed awake/ comfortable looks better afebrile all f/u noted Vital Signs Temp 98.6 F 04/03/18 06:00 Pulse 84 04/03/18 06:00 Resp 20 04/03/18 06:00 BP 134/91 04/03/18 06:00 Pulse Ox 96 04/02/18 21:00 Intake & Output 04/02/18 04/02/18 04/03/18 11:59 23:59 11:59 Intake Total 1008 1062 500 Balance 1008 1062 500 Weight 222 lb 1.6 oz 217 lb 12.8 oz Intake: IV 462 500 SL 462 500 TPN/PPN 1008 600 Other: Voiding Method Incontinent Incontinent Incontinent # Unmeasured Voids Void 1 1 Bowel Movement Yes: colostomy Yes: colostomy Weight Measurement Method Built in Bedscale Built in Bedscale Active Medications Albuterol/Ipratropium (Duoneb -) 1 amp NEB Q4H PRN PRN Reason: SHORTNESS OF BREATH Amino Acids (Prosource No Carb Liquid Pkt) 30 ml PO BID@0800,1730 [facility] Last Admin: 04/03/18 08:24 Dose: 30 ml Amlodipine Besylate (Norvasc -) 10 mg PO DAILY [facility] Last Admin: 04/03/18 10:24 Dose: 10 mg Atorvastatin Calcium (Lipitor -) 40 mg PO HS [facility] Last Admin: 04/02/18 21:07 Dose: 40 mg Emollient Ointment (Aquaphor -) 1 applic TP Q12H PRN PRN Reason: RASH Last Admin: 04/03/18 10:27 Dose: 1 applic Amino Acids (Clinimix -) 1,000 mls @ 42 mls/hr IV Q12H [facility] Last Admin: 04/03/18 10:17 Dose: Not Given Insulin Aspart (Novolog Vial Sliding Scale -) 1 vial SQ ACHS [facility]; Protocol Last Admin: 04/03/18 06:03 Dose: 4 units Lisinopril (Prinivil) 40 mg PO DAILY [facility] Last Admin: 04/03/18 10:25 Dose: 40 mg Methyl Salicylate (Felix-Seaman -) 1 applic TP Q8H PRN PRN Reason: BODY ACHES Metoprolol Tartrate (Lopressor -) 50 mg PO BID [facility] Last Admin: 12/10/18 10:25 Dose: 50 mg Morphine Sulfate (Morphine Sulfate) 2 mg IVPUSH Q6H PRN PRN Reason: PAIN LEVEL 6-10 Multi-Ingredient Ointment (Zinc Oxide) 1 applic TP BID [facility] Last Admin: 04/03/18 10:27 Dose: 1 applic Pantoprazole Sodium (Protonix Iv) 40 mg IVPUSH DAILY [facility] Last Admin: 04/03/18 10:24 Dose: 40 mg Polyethylene Glycol (Miralax (For Daily Use) -) 17 gm NGT DAILY [facility] Last Admin: 04/03/18 10:26 Dose: 17 grams CBC, BMP 04/03/18 06:15 04/02/18 07:00 Microbiology 03/29/18 18:00 Blood Culture - Preliminary Blood - Peripheral Venous NO GROWTH OBTAINED AFTER 96 HOURS, INCUBATION TO CONTINUE FOR 1 DAYS. 03/29/18 16:00 Blood Culture - Preliminary Blood - Peripheral Venous NO GROWTH OBTAINED AFTER 96 HOURS, INCUBATION TO CONTINUE FOR 1 DAYS. Physical Exam. awake/ comfortable S1 S2 irregular Lungs decreased ABd- soft, quiet. Surgical site clean. dressing + lower margin of surgical site-- colostomy-- serous fluid. Ext- + edema- trace PLAN Pod # 7 slowly getting better monitor for bleeding Eliquis on hold meds reviewed continue present care bedside physical therapy condition improved but gaurded will follow Problem List - Problems (1) Demand ischemia Code(s): I24.8 - OTHER FORMS OF ACUTE ISCHEMIC HEART DISEASE (2) Elevated troponin Code(s): R74.8 - ABNORMAL LEVELS OF OTHER SERUM ENZYMES (3) Hypokalemia Code(s): E87.6 - HYPOKALEMIA (4) Pneumonia Code(s): J18.9 - PNEUMONIA, UNSPECIFIED ORGANISM (5) Rapid atrial fibrillation Code(s): I48.91 - UNSPECIFIED ATRIAL FIBRILLATION (6) Volvulus of descending colon Code(s): K56.2 - VOLVULUS (7) Diabetes Code(s): E11.9 - TYPE 2 DIABETES MELLITUS WITHOUT COMPLICATIONS (8) Fecal retention Code(s): K59.00 - CONSTIPATION, UNSPECIFIED (9) H/O: CVA (cerebrovascular accident) Code(s): Z86.73 - PRSNL HX OF TIA (TIA), AND CEREB INFRC W/O RESID DEFICITS
--- NOTE | 2018-04-03 12:53 | PN ---
Progress Note, [employer] ON CALL - Note Progress Note: Selected Entries 04/02/18 04/02/18 04/02/18 06:00 10:00 14:18 Breakfast Supper Temperature 98.2 F 98.5 F 97.5 F L 04/02/18 04/02/18 04/02/18 17:44 22:00 22:45 Breakfast Supper 100% Temperature 98.1 F 99.5 F 04/03/18 04/03/18 06:00 10:02 Breakfast 75% Supper Temperature 98.6 F Laboratory Tests 03/31/18 04/02/18 04/03/18 06:15 07:00 06:15 WBC 16.6 H 13.6 H 11.6 H Pt now on full fluids. H/o dysphagia. Suggest thickening liquids to nectar thick.
--- NOTE | 2018-04-03 12:53 | PN ---
Progress Note, Physician Chief Complaint: volvulus History of Present Illness: 77yo male PMH HTN, HLD, CHF, CVA with residual right sided weakness, dysphagia, DM2, COPD presented with weakness and fever 103 from [place]. Remains weak, marginally responsive, on cardizem for Afib which is more rate controlled now. rectal tube was replaced because of recurrent colonic atony and distension. with the rectal tube removed today the patient is passing semiformed stool. Stable post operatively. - Current Medication List Current Medications: Active Medications Albuterol/Ipratropium (Duoneb -) 1 amp NEB Q4H PRN PRN Reason: SHORTNESS OF BREATH Amino Acids (Prosource No Carb Liquid Pkt) 30 ml PO BID@0800,1730 [facility] Last Admin: 04/03/18 08:24 Dose: 30 ml Amlodipine Besylate (Norvasc -) 10 mg PO DAILY [facility] Last Admin: 04/03/18 10:24 Dose: 10 mg Atorvastatin Calcium (Lipitor -) 40 mg PO HS [facility] Last Admin: 04/02/18 21:07 Dose: 40 mg Emollient Ointment (Aquaphor -) 1 applic TP Q12H PRN PRN Reason: RASH Last Admin: 04/03/18 10:27 Dose: 1 applic Amino Acids (Clinimix -) 1,000 mls @ 42 mls/hr IV Q12H [facility] Last Admin: 04/03/18 10:17 Dose: Not Given Insulin Aspart (Novolog Vial Sliding Scale -) 1 vial SQ ACHS [facility]; Protocol Last Admin: 04/03/18 12:28 Dose: 6 units Lisinopril (Prinivil) 40 mg PO DAILY [facility] Last Admin: 04/03/18 10:25 Dose: 40 mg Methyl Salicylate (Felix-Seaman -) 1 applic TP Q8H PRN PRN Reason: BODY ACHES Metoprolol Tartrate (Lopressor -) 50 mg PO BID [facility] Last Admin: 04/03/18 10:25 Dose: 50 mg Morphine Sulfate (Morphine Sulfate) 2 mg IVPUSH Q6H PRN PRN Reason: PAIN LEVEL 6-10 Multi-Ingredient Ointment (Zinc Oxide) 1 applic TP BID [facility] Last Admin: 04/03/18 10:27 Dose: 1 applic Pantoprazole Sodium (Protonix Iv) 40 mg IVPUSH DAILY [facility] Last Admin: 04/03/18 10:24 Dose: 40 mg Polyethylene Glycol (Miralax (For Daily Use) -) 17 gm NGT DAILY [facility] Last Admin: 04/03/18 10:26 Dose: 17 grams - Objective Vital Signs: Vital Signs Temperature 98.6 F 04/03/18 06:00 Pulse Rate 84 04/03/18 06:00 Respiratory Rate 20 04/03/18 06:00 Blood Pressure 134/91 04/03/18 06:00 O2 Sat by Pulse Oximetry (%) 96 04/02/18 21:00 Vital Signs Period Temp Pulse Resp BP Sys/Pham Pulse Ox Last 24 Hr 97.5 F-99.5 F 72-103 20-22 134-152/81-91 96 Intake & Output 04/02/18 04/03/18 04/03/18 23:59 07:59 15:59 Intake Total 500 Balance 500 Weight 217 lb 12.8 oz Intake: IV 500 SL 500 Other: Voiding Method Incontinent Incontinent # Unmeasured Voids Void 1 1 Bowel Movement Yes: colostomy Yes: colostomy Weight Measurement Method Built in [facility] Constitutional: Yes: Well Nourished, No Distress, Calm Eyes: Yes: Conjunctiva Clear, EOM Intact HENT: Yes: Atraumatic, Normocephalic Neck: Yes: Supple, Trachea Midline Cardiovascular: Yes: Regular Rate and Rhythm, S1, S2 Respiratory: Yes: Regular, CTA Bilaterally Gastrointestinal: Yes: Normal Bowel Sounds, Soft, Abdomen, Obese, Other ( functional [place] with soft brown stool) ...Rectal Exam: Yes: Deferred Genitourinary: No: CVA Tenderness - Left, CVA Tenderness - Right Musculoskeletal: Yes: Muscle Weakness. No: Muscle Pain Extremities: No: Cold, Cool Edema: Yes Edema: LUE: 1+, RUE: 1+, LLE: 1+, RLE: 1+ Peripheral Pulses WNL: Yes Peripheral Pulses: Left Radial: 2+, Right Radial: 2+, Left Doralis Pedis: 2+, Right Dorsalis Pedis: 2+, Left Femoral: 2+, Right Femoral: 2+ Integumentary: Yes: Incision. No: Jaundice, Rash Wound/Incision: Yes: Clean/Dry, Well Approximated, Karon Intact, [place] Removed (2 karon removed and packed with iodoform), Draining (lowe pol[place] midline fat necrosis nited), Unapproximated Neurological: Yes: Alert, Confusion. No: Oriented Psychiatric: Yes: Alert. No: Oriented Labs: CBC, BMP 04/03/18 06:15 04/02/18 07:00 INR, PTT INR 1.64 (0.83-1.09) H 03/26/18 11:55 Problem List - Problems (1) Volvulus of sigmoid colon Assessment/Plan: 77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 POD #7 s/p sigmoid colectomy and end-colostomy KUB revied shows contrast in the stump and some distended colon. colostomy is functional and viable. small amount of fat necrosis lower midline. no organism in deep wound culture. Local wound care by nurse full liquid with protein suppl advance as tolerated Aspiration precautions rest per primary team will follow Code(s): K56.2 - VOLVULUS (2) Elevated troponin Code(s): R74.8 - ABNORMAL LEVELS OF OTHER SERUM ENZYMES (3) Hypoxemia Code(s): R09.02 - HYPOXEMIA (4) Pneumonia Code(s): J18.9 - PNEUMONIA, UNSPECIFIED ORGANISM Qualifiers: Pneumonia type: due to methicillin-sensitive Staphylococcus aureus (MSSA) (5) COPD (chronic obstructive pulmonary disease) Code(s): J44.9 - CHRONIC OBSTRUCTIVE PULMONARY DISEASE, UNSPECIFIED Qualifiers: Emphysema type: unspecified (6) Diabetes Code(s): E11.9 - TYPE 2 DIABETES MELLITUS WITHOUT COMPLICATIONS (7) Fecal retention Code(s): K59.00 - CONSTIPATION, UNSPECIFIED
[2018-04-03] MEDS: ALBUTEROL SO4 2.5/IPRATROPIUM 0.5 INH SOL 3 ML VIAL.NEB. NEB PRN (20:29)
[2018-04-03] MEDS ORDERED: INSULIN (NOVOLOG) ASPART 100 UNITS/ML 10ML VIAL ONE (21:55)
[2018-04-03] MEDS: ATORVASTATIN CA 40 MG TABLET (FP) PO SCH (22:04)
[2018-04-04] MEDS: AMINO ACIDS 4.25%/D5W 1,000 ML IV SCH ×3 (00:58→20:29)
[2018-04-04] MEDS: INSULIN SLIDING SCALE (NOVOLOG) 1 VIAL SQ SCH ×4 (06:34→21:09)
[2018-04-04 07:31] LABS: BASO % 0.3 % (0-2.0); EOS % 0.5 % (0-4.5); HEMATOCRIT 32.9 % (35.4-49); HEMOGLOBIN 10.9 GM/dL (11.7-16.9); MCHC 33.1 g/dl (32.0-35.9); MEAN CELL VOLUME 90.6 fl (80-96); MEAN PLT VOLUME 8.6 fl (7.5-11.1); MONO % 9.5 % (3.8-10.2); NEUT % 69.7 % (42.8-82.8); PLATELET COUNT 469 K/MM3 (134-434); RBC 3.64 M/mm3 (4.00-5.60); RDW 15.1 % (11.9-15.9); WHITE BLOOD COUNT 12.1 K/mm3 (4.0-10.0)
[2018-04-04 08:19] LABS: ALBUMIN 1.8 g/dl (3.4-5.0); ALK PHOS 187 U/L (45-117); ANION GAP 11 MMOL/L (8-16); BILIRUBIN,TOTAL 0.5 mg/dL (0.2-1); BLOOD UREA NITROGEN 12 mg/dL (7-18); CHLORIDE 97 mmol/L (98-107); CO2 28 mmol/L (21-32); CREATININE 0.6 mg/dL (0.55-1.3); GLUCOSE,RANDOM 254 mg/dL (74-106); POTASSIUM 3.7 mmol/L (3.5-5.1); SGOT/AST 120 U/L (15-37); SGPT/ALT 67 U/L (13-61); SODIUM 135 mmol/L (136-145); TOT PROT 6.6 g/dl (6.4-8.2)
[2018-04-04] MEDS: AMINO ACIDS/PROTEIN HYDROLYS 30 ML LIQUID.PKT PO SCH ×2 (08:38→17:38)
--- NOTE | 2018-04-04 09:08 | PN ---
Progress Note (short form) - Note Progress Note: Awake and responsive. Tolerating PO intake. Some moist cough noted. No acute events overnight. Intake & Output 04/01/18 04/02/18 04/03/18 04/04/18 23:59 23:59 23:59 23:59 Intake Total 2291 2069 1740 504 Output Total 280 30 Balance 2011 2069 1710 504 Weight 224 lb 14.4 oz 222 lb 1.6 oz 217 lb 12.8 oz 208 lb 8 oz Last Vital Signs Temp Pulse Resp BP Pulse Ox 98.5 F 95 H 20 162/94 96 04/04/18 07:06 04/04/18 07:06 04/04/18 07:06 04/04/18 07:06 04/03/18 21:00 Active Medications Albuterol/Ipratropium (Duoneb -) 1 amp NEB Q4H PRN PRN Reason: SHORTNESS OF BREATH Last Admin: 04/03/18 20:29 Dose: 1 amp Amino Acids (Prosource No Carb Liquid Pkt) 30 ml PO BID@0800,1730 [facility] Last Admin: 04/03/18 18:09 Dose: 30 ml Amlodipine Besylate (Norvasc -) 10 mg PO DAILY [facility] Last Admin: 04/03/18 10:24 Dose: 10 mg Atorvastatin Calcium (Lipitor -) 40 mg PO HS [facility] Last Admin: 04/03/18 22:04 Dose: 40 mg Emollient Ointment (Aquaphor -) 1 applic TP Q12H PRN PRN Reason: RASH Last Admin: 04/03/18 10:27 Dose: 1 applic Amino Acids (Clinimix -) 1,000 mls @ 42 mls/hr IV Q12H [facility] Last Admin: 04/04/18 00:58 Dose: 42 mls/hr Insulin Aspart (Novolog Vial Sliding Scale -) 1 vial SQ ACHS [facility]; Protocol Last Admin: 04/04/18 06:34 Dose: 6 units Lisinopril (Prinivil) 40 mg PO DAILY [facility] Last Admin: 04/03/18 10:25 Dose: 40 mg Methyl Salicylate (Felix-Seaman -) 1 applic TP Q8H PRN PRN Reason: BODY ACHES Metoprolol Tartrate (Lopressor -) 50 mg PO BID [facility] Last Admin: 04/03/18 22:04 Dose: 50 mg Morphine Sulfate (Morphine Sulfate) 2 mg IVPUSH Q6H PRN PRN Reason: PAIN LEVEL 6-10 Multi-Ingredient Ointment (Zinc Oxide) 1 applic TP BID [facility] Last Admin: 04/03/18 22:04 Dose: 1 applic Pantoprazole Sodium (Protonix Iv) 40 mg IVPUSH DAILY [facility] Last Admin: 04/03/18 10:24 Dose: 40 mg Polyethylene Glycol (Miralax (For Daily Use) -) 17 gm NGT DAILY [facility] Last Admin: 04/03/18 10:26 Dose: 17 grams Gen: Awake and alert, NAD Heart: RRR Lung: scattered rhonchi Abd: soft, nontender Ext: edema Laboratory Results - last 24 hr 04/03/18 04/03/18 04/04/18 12:19 22:02 06:30 WBC 12.1 H RBC 3.64 L Hgb 10.9 L Hct 32.9 L MCV 90.6 MCH 30.0 MCHC 33.1 RDW 15.1 Plt Count 469 H MPV 8.6 Absolute Neuts (auto) 8.4 H Neutrophils % 69.7 Lymphocytes % 20.0 D Monocytes % 9.5 Eosinophils % 0.5 Basophils % 0.3 Nucleated RBC % 0 Sodium Potassium Chloride Carbon Dioxide Anion Gap BUN Creatinine Creat Clearance w eGFR POC Glucometer 251 231 Random Glucose Calcium Total Bilirubin AST ALT Alkaline Phosphatase Total Protein Albumin 04/04/18 04/04/18 06:30 06:33 WBC RBC Hgb Hct MCV MCH MCHC RDW Plt Count MPV Absolute Neuts (auto) Neutrophils % Lymphocytes % Monocytes % Eosinophils % Basophils % Nucleated RBC % Sodium 135 L Potassium 3.7 Chloride 97 L Carbon Dioxide 28 Anion Gap 11 BUN 12 Creatinine 0.6 Creat Clearance w eGFR > 60 POC Glucometer 286 Random Glucose 254 H Calcium 8.0 L Total Bilirubin 0.5 AST 120 H ALT 67 H Alkaline Phosphatase 187 H Total Protein 6.6 Albumin 1.8 L A/P s/p Acute Hypoxic Respiratory Failure Pneumonia likely Aspiration clinically improved Sigmoid Volvulus s/p Rectal Tube Decompression Sepsis resolved LV Diastolic Dysfunction +Troponins likely Demand Ischemia Paroxysmal Atrial Fibrillation h/o CVA - PO as tolerated - O2 to keep SpO2 >90% - aspiration precautions - rate control - AC with Eliquis when cleared by surgery Dr Patel
--- NOTE | 2018-04-04 09:22 | PN ---
Progress Note (short form) - Note Progress Note: Pt seen/ examined awake/ comfortable taking orally - liquids colostomy functioning + oozing from bottom of surgical site afebrile all f/u noted Vital Signs Temp 98.5 F 04/04/18 07:06 Pulse 95 H 04/04/18 07:06 Resp 20 04/04/18 07:06 BP 162/94 04/04/18 07:06 Pulse Ox 96 04/03/18 21:00 Intake & Output 04/03/18 04/03/18 04/04/18 11:59 23:59 11:59 Intake Total 650 1090 504 Output Total 30 Balance 620 1090 504 Weight 217 lb 12.8 oz 208 lb 8 oz Intake: IV 500 600 504 CLINIMIX 600 504 SL 500 Oral 150 490 Output: Colostomy 30 Other: Voiding Method Incontinent Incontinent # Unmeasured Voids Void 1 2 Bowel Movement Yes: colostomy Yes: colostomy Weight Measurement Method [facility] Active Medications Albuterol/Ipratropium (Duoneb -) 1 amp NEB Q4H PRN PRN Reason: SHORTNESS OF BREATH Last Admin: 04/03/18 20:29 Dose: 1 amp Amino Acids (Prosource No Carb Liquid Pkt) 30 ml PO BID@0800,1730 [facility] Last Admin: 04/03/18 18:09 Dose: 30 ml Amlodipine Besylate (Norvasc -) 10 mg PO DAILY [facility] Last Admin: 04/03/18 10:24 Dose: 10 mg Atorvastatin Calcium (Lipitor -) 40 mg PO HS [facility] Last Admin: 04/03/18 22:04 Dose: 40 mg Emollient Ointment (Aquaphor -) 1 applic TP Q12H PRN PRN Reason: RASH Last Admin: 04/03/18 10:27 Dose: 1 applic Amino Acids (Clinimix -) 1,000 mls @ 42 mls/hr IV Q12H [facility] Last Admin: 04/04/18 00:58 Dose: 42 mls/hr Insulin Aspart (Novolog Vial Sliding Scale -) 1 vial SQ ACHS [facility]; Protocol Last Admin: 04/04/18 06:34 Dose: 6 units Lisinopril (Prinivil) 40 mg PO DAILY [facility] Last Admin: 04/03/18 10:25 Dose: 40 mg Methyl Salicylate (Felix-Seaman -) 1 applic TP Q8H PRN PRN Reason: BODY ACHES Metoprolol Tartrate (Lopressor -) 50 mg PO BID [facility] Last Admin: 04/03/18 22:04 Dose: 50 mg Morphine Sulfate (Morphine Sulfate) 2 mg IVPUSH Q6H PRN PRN Reason: PAIN LEVEL 6-10 Multi-Ingredient Ointment (Zinc Oxide) 1 applic TP BID [facility] Last Admin: 04/03/18 22:04 Dose: 1 applic Pantoprazole Sodium (Protonix Iv) 40 mg IVPUSH DAILY [facility] Last Admin: 04/03/18 10:24 Dose: 40 mg Polyethylene Glycol (Miralax (For Daily Use) -) 17 gm NGT DAILY [facility] Last Admin: 04/03/18 10:26 Dose: 17 grams Microbiology 03/29/18 18:00 Blood Culture - Final Blood - Peripheral Venous NO GROWTH AFTER 5 DAYS INCUBATION 03/29/18 16:00 Blood Culture - Final Blood - Peripheral Venous NO GROWTH AFTER 5 DAYS INCUBATION 04/02/18 15:35 Gram Stain - Final Abdomen CBC, BMP 04/04/18 06:30 04/04/18 06:30 Physical Exam. awake/ comfortable S1 S2 irregular Lungs decreased ABd- soft, quiet. dressing + lower margin of surgical site-- colostomy-- serous fluid. Ext- + edema- trace PLAN Pod # 8 slowly getting better monitor for bleeding Eliquis on hold-- to be restarted when cleared by surgery continue present care bedside physical therapy condition improved but gaurded will follow discussed with nursing staff Problem List - Problems (1) Demand ischemia Code(s): I24.8 - OTHER FORMS OF ACUTE ISCHEMIC HEART DISEASE (2) Elevated troponin Code(s): R74.8 - ABNORMAL LEVELS OF OTHER SERUM ENZYMES (3) Hypokalemia Code(s): E87.6 - HYPOKALEMIA (4) Pneumonia Code(s): J18.9 - PNEUMONIA, UNSPECIFIED ORGANISM Qualifiers: Pneumonia type: due to methicillin-sensitive Staphylococcus aureus (MSSA) (5) Rapid atrial fibrillation Code(s): I48.91 - UNSPECIFIED ATRIAL FIBRILLATION (6) Volvulus of descending colon Code(s): K56.2 - VOLVULUS (7) Diabetes Code(s): E11.9 - TYPE 2 DIABETES MELLITUS WITHOUT COMPLICATIONS (8) Fecal retention Code(s): K59.00 - CONSTIPATION, UNSPECIFIED (9) H/O: CVA (cerebrovascular accident) Code(s): Z86.73 - PRSNL HX OF TIA (TIA), AND CEREB INFRC W/O RESID DEFICITS
[2018-04-04] MEDS: PANTOPRAZOLE SODIUM 40 MG VIAL IVPUSH SCH (10:37)
[2018-04-04] MEDS: LISINOPRIL 20 MG TABLET (FP) PO SCH (10:37)
[2018-04-04] MEDS: amLODIPine BESYLATE 10 MG TABLET (FP) PO SCH (10:37)
[2018-04-04] MEDS: METOPROLOL TARTRATE 50 MG TABLET (FP) PO SCH ×2 (10:38→21:10)
[2018-04-04] MEDS: POLYETHYLENE GLYCOL 3350 119 GM BTL NGT SCH (10:39)
[2018-04-04] MEDS: ZINC OXIDE 20% TOPICAL OINTMENT 30 GM TUBE TP SCH ×2 (10:39→21:18)
[2018-04-04] MEDS: MINERAL OIL/PET HY-PHL TOPICAL OINTMENT 454 GM JAR TP PRN ×2 (10:39→21:09)
--- NOTE | 2018-04-04 12:34 | PN ---
Progress Note, Physician Chief Complaint: Events noted Complains of abdominal discomfort intermittently History of Present Illness: Patient was seen and examined. Awake. Chart was reviewed - Current Medication List Current Medications: Active Medications Albuterol/Ipratropium (Duoneb -) 1 amp NEB Q4H PRN PRN Reason: SHORTNESS OF BREATH Last Admin: 04/03/18 20:29 Dose: 1 amp Amino Acids (Prosource No Carb Liquid Pkt) 30 ml PO BID@0800,1730 [facility] Last Admin: 04/04/18 08:38 Dose: 30 ml Amlodipine Besylate (Norvasc -) 10 mg PO DAILY [facility] Last Admin: 04/04/18 10:37 Dose: 10 mg Atorvastatin Calcium (Lipitor -) 40 mg PO HS [facility] Last Admin: 04/03/18 22:04 Dose: 40 mg Emollient Ointment (Aquaphor -) 1 applic TP Q12H PRN PRN Reason: RASH Last Admin: 04/04/18 10:39 Dose: 1 applic Amino Acids (Clinimix -) 1,000 mls @ 42 mls/hr IV Q12H [facility] Last Admin: 04/04/18 09:37 Dose: Not Given Insulin Aspart (Novolog Vial Sliding Scale -) 1 vial SQ ACHS [facility]; Protocol Last Admin: 04/04/18 06:34 Dose: 6 units Lisinopril (Prinivil) 40 mg PO DAILY [facility] Last Admin: 04/04/18 10:37 Dose: 40 mg Methyl Salicylate (Felix-Seaman -) 1 applic TP Q8H PRN PRN Reason: BODY ACHES Metoprolol Tartrate (Lopressor -) 50 mg PO BID [facility] Last Admin: 04/04/18 10:38 Dose: 50 mg Morphine Sulfate (Morphine Sulfate) 2 mg IVPUSH Q6H PRN PRN Reason: PAIN LEVEL 6-10 Multi-Ingredient Ointment (Zinc Oxide) 1 applic TP BID [facility] Last Admin: 04/04/18 10:39 Dose: 1 applic Pantoprazole Sodium (Protonix Iv) 40 mg IVPUSH DAILY [facility] Last Admin: 04/04/18 10:37 Dose: 40 mg Polyethylene Glycol (Miralax (For Daily Use) -) 17 gm NGT DAILY [facility] Last Admin: 04/04/18 10:39 Dose: 17 grams - Objective Vital Signs: Vital Signs Temperature 98.5 F 04/04/18 07:06 Pulse Rate 95 H 04/04/18 07:06 Respiratory Rate 20 04/04/18 07:06 Blood Pressure 162/94 04/04/18 07:06 O2 Sat by Pulse Oximetry (%) 96 04/03/18 21:00 Neck: Yes: Supple Cardiovascular: Yes: Pulse Irregular, S1, S2 Respiratory: Yes: CTA Bilaterally Gastrointestinal: Yes: Other (Post colectomy with midline surgical scar and karon) Edema: No Labs: CBC, BMP 04/04/18 06:30 04/04/18 06:30 Problem List - Problems (1) Demand ischemia Code(s): I24.8 - OTHER FORMS OF ACUTE ISCHEMIC HEART DISEASE (2) Pneumonia Code(s): J18.9 - PNEUMONIA, UNSPECIFIED ORGANISM Qualifiers: Pneumonia type: due to methicillin-sensitive Staphylococcus aureus (MSSA) (3) Premature ventricular contraction Code(s): I49.3 - VENTRICULAR PREMATURE DEPOLARIZATION (4) Rapid atrial fibrillation Code(s): I48.91 - UNSPECIFIED ATRIAL FIBRILLATION (5) Sepsis Code(s): A41.9 - SEPSIS, UNSPECIFIED ORGANISM Qualifiers: Sepsis type: sepsis due to unspecified organism Qualified Code(s): A41.9 - Sepsis, unspecified organism (6) Volvulus of sigmoid colon Code(s): K56.2 - VOLVULUS (7) COPD (chronic obstructive pulmonary disease) Code(s): J44.9 - CHRONIC OBSTRUCTIVE PULMONARY DISEASE, UNSPECIFIED Qualifiers: Emphysema type: unspecified (8) Diabetes Code(s): E11.9 - TYPE 2 DIABETES MELLITUS WITHOUT COMPLICATIONS (9) Diastolic dysfunction Code(s): I51.9 - HEART DISEASE, UNSPECIFIED (10) H/O: CVA (cerebrovascular accident) Code(s): Z86.73 - PRSNL HX OF TIA (TIA), AND CEREB INFRC W/O RESID DEFICITS (11) Hyperlipidemia Code(s): E78.5 - HYPERLIPIDEMIA, UNSPECIFIED Qualifiers: Hyperlipidemia type: pure hypercholesterolemia Qualified Code(s): E78.00 - Pure hypercholesterolemia, unspecified; E78.0 - Pure hypercholesterolemia (12) Hypertension Code(s): I10 - ESSENTIAL (PRIMARY) HYPERTENSION Qualifiers: Hypertension type: essential hypertension Qualified Code(s): I10 - Essential (primary) hypertension (13) Toxic metabolic encephalopathy Code(s): G92 - TOXIC ENCEPHALOPATHY (14) History of open sigmoidectomy Code(s): Z98.890 - OTHER SPECIFIED POSTPROCEDURAL STATES; Z90.49 - ACQUIRED ABSENCE OF OTHER SPECIFIED PARTS OF DIGESTIVE TRACT Assessment/Plan 1. Acute Hypoxic Respiratory Failure and right lower lobe aspiration pneumonia 2. Intermittent sigmoid volvulus post rectal tube decompression and now POD#8 sigmoid colectomy, colostomy and umbilical hernia repair 3. 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 Diastolic LV dysfunction with clinical class 0-I NYHA classification LV failure, compensated/euvolemic 5. Paroxysmal atrial fibrillation [id number] score 7 6. Toxic-metabolic encephalopathy 7. History of CVA with residual right-sided weakness PLAN: 1. Continue Lopressor 50 mg BID, Lisinopril 40 mg QD, Norvasc 10 qd and Lipitor 40 qd 2. Resume Eliquis 5 mg BID once post-op hemostasis achieved 3. Surgery follow up Rachid Richards MD
--- NOTE | 2018-04-04 17:09 | PN ---
Progress Note, Physician Chief Complaint: volvulus History of Present Illness: 77yo male PMH HTN, HLD, CHF, CVA with residual right sided weakness, dysphagia, DM2, COPD presented with weakness and fever 103 from NH. Remains weak, marginally responsive, on cardizem for Afib which is more rate controlled now. rectal tube was replaced because of recurrent colonic atony and distension. with the rectal tube removed today the patient is passing semiformed stool. Stable post operatively. - Current Medication List Current Medications: Active Medications Albuterol/Ipratropium (Duoneb -) 1 amp NEB Q4H PRN PRN Reason: SHORTNESS OF BREATH Last Admin: 04/03/18 20:29 Dose: 1 amp Amino Acids (Prosource No Carb Liquid Pkt) 30 ml PO BID@0800,1730 [facility] Last Admin: 04/04/18 08:38 Dose: 30 ml Amlodipine Besylate (Norvasc -) 10 mg PO DAILY [facility] Last Admin: 04/04/18 10:37 Dose: 10 mg Atorvastatin Calcium (Lipitor -) 40 mg PO HS [facility] Last Admin: 04/03/18 22:04 Dose: 40 mg Emollient Ointment (Aquaphor -) 1 applic TP Q12H PRN PRN Reason: RASH Last Admin: 04/04/18 10:39 Dose: 1 applic Amino Acids (Clinimix -) 1,000 mls @ 42 mls/hr IV Q12H [facility] Last Admin: 04/04/18 09:37 Dose: Not Given Insulin Aspart (Novolog Vial Sliding Scale -) 1 vial SQ ACHS [facility]; Protocol Last Admin: 04/04/18 12:42 Dose: 4 units Lisinopril (Prinivil) 40 mg PO DAILY [facility] Last Admin: 04/04/18 10:37 Dose: 40 mg Methyl Salicylate (Felix-Seaman -) 1 applic TP Q8H PRN PRN Reason: BODY ACHES Metoprolol Tartrate (Lopressor -) 50 mg PO BID [facility] Last Admin: 04/04/18 10:38 Dose: 50 mg Morphine Sulfate (Morphine Sulfate) 2 mg IVPUSH Q6H PRN PRN Reason: PAIN LEVEL 6-10 Multi-Ingredient Ointment (Zinc Oxide) 1 applic TP BID [facility] Last Admin: 04/04/18 10:39 Dose: 1 applic Pantoprazole Sodium (Protonix Iv) 40 mg IVPUSH DAILY [facility] Last Admin: 04/04/18 10:37 Dose: 40 mg Polyethylene Glycol (Miralax (For Daily Use) -) 17 gm NGT DAILY [facility] Last Admin: 04/04/18 10:39 Dose: 17 grams - Objective Vital Signs: Vital Signs Temperature 97.9 F 04/04/18 14:54 Pulse Rate 94 H 04/04/18 14:54 Respiratory Rate 18 04/04/18 14:54 Blood Pressure 147/99 04/04/18 14:54 O2 Sat by Pulse Oximetry (%) 95 04/04/18 09:00 Constitutional: Yes: Well Nourished, No Distress, Calm, Obese Eyes: Yes: Conjunctiva Clear, EOM Intact HENT: Yes: Atraumatic, Normocephalic Neck: Yes: Supple, Trachea Midline Cardiovascular: Yes: Regular Rate and Rhythm, S1, S2 Respiratory: Yes: Regular, CTA Bilaterally Gastrointestinal: Yes: Normal Bowel Sounds, Soft, Abdomen, Obese, Distention. No: Tenderness, Tenderness, Epigastrium, Tenderness, Rebound ...Rectal Exam: Yes: Deferred Genitourinary: No: CVA Tenderness - Left, CVA Tenderness - Right Breast(s): Yes: Gynecomastia Musculoskeletal: No: Muscle Pain, Muscle Weakness Extremities: No: Cool, Cyanosis Edema: No Peripheral Pulses WNL: Yes Peripheral Pulses: Left Radial: 2+, Right Radial: 2+, Left Doralis Pedis: 2+, Right Dorsalis Pedis: 2+, Left Femoral: 2+, Right Femoral: 2+ Integumentary: No: Jaundice Wound/Incision: Yes: Clean/Dry, Well Approximated, Dressing Dry and Intact, Dressing Removed, Unapproximated Neurological: Yes: Alert, Confusion. No: Oriented Psychiatric: Yes: Alert, Oriented Labs: CBC, BMP 04/04/18 06:30 04/04/18 06:30 INR, PTT INR 1.64 (0.83-1.09) H 03/26/18 11:55 Problem List - Problems (1) Volvulus of sigmoid colon Assessment/Plan: 77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 POD #7 s/p sigmoid colectomy and end-colostomy KUB revied shows contrast in the stump and some distended colon. colostomy is functional and viable. small amount of fat necrosis lower midline. no organism in deep wound culture. Local wound care by nurse full liquid with protein suppl advance as tolerated Aspiration precautions rest per primary team will follow Code(s): K56.2 - VOLVULUS (2) Elevated troponin Code(s): R74.8 - ABNORMAL LEVELS OF OTHER SERUM ENZYMES (3) Hypoxemia Code(s): R09.02 - HYPOXEMIA (4) Pneumonia Code(s): J18.9 - PNEUMONIA, UNSPECIFIED ORGANISM Qualifiers: Pneumonia type: due to methicillin-sensitive Staphylococcus aureus (MSSA) (5) COPD (chronic obstructive pulmonary disease) Code(s): J44.9 - CHRONIC OBSTRUCTIVE PULMONARY DISEASE, UNSPECIFIED Qualifiers: Emphysema type: unspecified (6) Diabetes Code(s): E11.9 - TYPE 2 DIABETES MELLITUS WITHOUT COMPLICATIONS (7) Fecal retention Code(s): K59.00 - CONSTIPATION, UNSPECIFIED
[2018-04-04] MEDS: ATORVASTATIN CA 40 MG TABLET (FP) PO SCH (21:10)
[2018-04-05] MEDS ORDERED: INSULIN (NOVOLOG) ASPART 100 UNITS/ML 10ML VIAL ONE (01:53)
[2018-04-05] MEDS: INSULIN SLIDING SCALE (NOVOLOG) 1 VIAL SQ SCH ×4 (06:40→22:07)
[2018-04-05] MEDS: AMINO ACIDS/PROTEIN HYDROLYS 30 ML LIQUID.PKT PO SCH ×2 (08:25→17:46)
[2018-04-05] MEDS: ALBUTEROL SO4 2.5/IPRATROPIUM 0.5 INH SOL 3 ML VIAL.NEB. NEB PRN ×2 (08:31→11:40)
--- NOTE | 2018-04-05 09:52 | PN ---
Progress Note, Physician History of Present Illness: POD#9 open sigmoid colectomy, rate-controlled afib, tolerating full liquid diet , Eliqus held for wound site bleed since resolved. - Current Medication List Current Medications: Active Medications Albuterol/Ipratropium (Duoneb -) 1 amp NEB Q4H PRN PRN Reason: SHORTNESS OF BREATH Last Admin: 04/05/18 08:31 Dose: 1 amp Amino Acids (Prosource No Carb Liquid Pkt) 30 ml PO BID@0800,1730 [facility] Last Admin: 04/04/18 17:38 Dose: 30 ml Amlodipine Besylate (Norvasc -) 10 mg PO DAILY [facility] Last Admin: 04/04/18 10:37 Dose: 10 mg Atorvastatin Calcium (Lipitor -) 40 mg PO HS [facility] Last Admin: 04/04/18 21:10 Dose: 40 mg Emollient Ointment (Aquaphor -) 1 applic TP Q12H PRN PRN Reason: RASH Last Admin: 04/04/18 21:09 Dose: 1 applic Amino Acids (Clinimix -) 1,000 mls @ 42 mls/hr IV Q12H [facility] Last Admin: 04/04/18 20:29 Dose: 42 mls/hr Insulin Aspart (Novolog Vial Sliding Scale -) 1 vial SQ ACHS [facility]; Protocol Last Admin: 04/05/18 06:40 Dose: 4 units Lisinopril (Prinivil) 40 mg PO DAILY [facility] Last Admin: 04/04/18 10:37 Dose: 40 mg Methyl Salicylate (Felix-Seaman -) 1 applic TP Q8H PRN PRN Reason: BODY ACHES Metoprolol Tartrate (Lopressor -) 50 mg PO BID [facility] Last Admin: 04/04/18 21:10 Dose: 50 mg Morphine Sulfate (Morphine Sulfate) 2 mg IVPUSH Q6H PRN PRN Reason: PAIN LEVEL 6-10 Multi-Ingredient Ointment (Zinc Oxide) 1 applic TP BID [facility] Last Admin: 04/04/18 21:18 Dose: 1 applic Pantoprazole Sodium (Protonix Iv) 40 mg IVPUSH DAILY [facility] Last Admin: 04/04/18 10:37 Dose: 40 mg Polyethylene Glycol (Miralax (For Daily Use) -) 17 gm NGT DAILY [facility] Last Admin: 04/04/18 10:39 Dose: 17 grams - Objective Vital Signs: Vital Signs Temperature 98 F 04/05/18 06:00 Pulse Rate 100 H 04/05/18 06:00 Respiratory Rate 20 04/05/18 06:00 Blood Pressure 152/81 04/05/18 06:00 O2 Sat by Pulse Oximetry (%) 95 04/04/18 21:00 Constitutional: Yes: No Distress, Calm Neck: Yes: Supple Cardiovascular: Yes: Regular Rate and Rhythm Respiratory: Yes: Regular, Diminished Gastrointestinal: Yes: Normal Bowel Sounds, Soft Edema: No Labs: CBC, BMP 04/04/18 06:30 04/04/18 06:30 INR, PTT INR 1.64 (0.83-1.09) H 03/26/18 11:55 Problem List - Problems (1) Elevated troponin Code(s): R74.8 - ABNORMAL LEVELS OF OTHER SERUM ENZYMES (2) Rapid atrial fibrillation Code(s): I48.91 - UNSPECIFIED ATRIAL FIBRILLATION (3) Diastolic dysfunction Code(s): I51.9 - HEART DISEASE, UNSPECIFIED (4) H/O: CVA (cerebrovascular accident) Code(s): Z86.73 - PRSNL HX OF TIA (TIA), AND CEREB INFRC W/O RESID DEFICITS (5) Hyperlipidemia Code(s): E78.5 - HYPERLIPIDEMIA, UNSPECIFIED Qualifiers: Hyperlipidemia type: pure hypercholesterolemia Qualified Code(s): E78.00 - Pure hypercholesterolemia, unspecified; E78.0 - Pure hypercholesterolemia (6) Hypertension Code(s): I10 - ESSENTIAL (PRIMARY) HYPERTENSION Qualifiers: Hypertension type: essential hypertension Qualified Code(s): I10 - Essential (primary) hypertension (7) Pneumonia Code(s): J18.9 - PNEUMONIA, UNSPECIFIED ORGANISM Qualifiers: Pneumonia type: due to unspecified organism Laterality: right Lung location: lower lobe of lung Qualified Code(s): J18.1 - Lobar pneumonia, unspecified organism (8) Toxic metabolic encephalopathy Code(s): G92 - TOXIC ENCEPHALOPATHY (9) Demand ischemia Code(s): I24.8 - OTHER FORMS OF ACUTE ISCHEMIC HEART DISEASE (10) Premature ventricular contraction Code(s): I49.3 - VENTRICULAR PREMATURE DEPOLARIZATION (11) Volvulus of descending colon Code(s): K56.2 - VOLVULUS (12) Chronic anticoagulation Code(s): Z79.01 - DIRECTOR OF DIGITAL MARKETING (CURRENT) USE OF ANTICOAGULANTS (13) History of open sigmoidectomy Code(s): Z98.890 - OTHER SPECIFIED POSTPROCEDURAL STATES; Z90.49 - ACQUIRED ABSENCE OF OTHER SPECIFIED PARTS OF DIGESTIVE TRACT Assessment/Plan 12/20/2017 Echo: Normal LV size and fxn, tr MR, TR 1. Acute Hypoxic Respiratory Failure and right lower lobe aspiration pneumonia 2. Intermittent sigmoid volvulus post rectal tube decompression and now POD#9 sigmoid colectomy, colostomy and umbilical hernia repair 3. 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 Diastolic LV dysfunction with clinical class 0-I NYHA classification LV failure, compensated/euvolemic 5. Paroxysmal atrial fibrillation [id number] score 7 off NOAC 6. Toxic-metabolic encephalopathy 7. History of CVA with residual right-sided weakness PLAN: 1. Continue Lopressor 50 mg BID, Lisinopril 40 mg QD, Norvasc 10 qd and Lipitor 40 qd 2. Resume Eliquis 5 mg BID once post-op hemostasis achieved 3. Surgery follow up
--- NOTE | 2018-04-05 10:58 | PN ---
Progress Note (short form) - Note Progress Note: much more alert eating +colostomy function s/p ex lap 03/27 with sigmoid colectomy , end colostomy and umbilical hernia repair Vital Signs Period Temp Pulse Resp BP Sys/Pham Pulse Ox Last 24 Hr 97.9 F-99.1 F 85-100 18-20 135-152/74-99 95 cor-rrr lungs decreased bs at bases abd soft, karon intact upper incision, lower incision packed, no drainage, no purulence, no erythema +ostomy function ext no edema CBC, BMP 04/04/18 06:30 04/04/18 06:30 Microbiology 04/02/18 15:35 Abdomen Gram Stain - Final 04/02/18 15:35 Abdomen Wound Culture - Preliminary Group D Strep Or Entero Coccus Lactose Fermenting Neg Bacilli 03/29/18 18:00 Blood - Peripheral Venous Blood Culture - Final NO GROWTH AFTER 5 DAYS INCUBATION 03/29/18 16:00 Blood - Peripheral Venous Blood Culture - Final NO GROWTH AFTER 5 DAYS INCUBATION 03/29/18 15:32 Sputum - Oropharynx Suctioned Sputum Gram Stain - Final 03/29/18 15:32 Sputum - Oropharynx Suctioned Sputum Sputum Culture - Final NORMAL RESPIRATORY MELITON 03/29/18 15:32 Urine - Urine Davis Urine Culture - Final NO GROWTH OBTAINED 03/24/18 12:42 Blood - Peripheral Venous Blood Culture - Final NO GROWTH AFTER 5 DAYS INCUBATION 03/24/18 12:42 Blood - Peripheral Venous Blood Culture - Final NO GROWTH AFTER 5 DAYS INCUBATION 03/11/18 14:50 Blood - Peripheral Venous Blood Culture - Final NO GROWTH AFTER 5 DAYS INCUBATION 03/11/18 14:45 Blood - Peripheral Venous Blood Culture - Final NO GROWTH AFTER 5 DAYS INCUBATION 02/28/18 20:25 Blood - Peripheral Venous Blood Culture - Final NO GROWTH AFTER 5 DAYS INCUBATION 02/28/18 20:25 Blood - Peripheral Venous Blood Culture - Final NO GROWTH AFTER 5 DAYS INCUBATION 03/03/18 06:00 Stool Clostridium difficile Antigen (AMY) - Final 03/03/18 06:00 Stool Clostridium difficile Toxin Assay - Final 03/01/18 20:30 Nares - Mrsa Screen - Right MRSA Screen - Final NO MRSA ISOLATED 03/01/18 20:30 Nares - Mrsa Screen - Left MRSA Screen - Final NO MRSA ISOLATED 02/28/18 22:53 Urine - Urine Clean Catch Urine Culture - Final NO GROWTH OBTAINED 03/01/18 11:20 Urine For Antigen Detection Legionella Antigen - Final 03/01/18 11:20 Urine For Antigen Detection Streptococcus pneumoniae Antigen (M - Final 02/28/18 23:30 Nasopharyngeal Swab Influenza Types A,B Antigen - Final 02/28/18 23:30 Nasopharyngeal Swab - Final a/p s/p sigmoid colectomy post op fevers resolved wound infection- packed and doing well with local care- no need to treat wound culture at this time encourage OOB encourage incentive spirometry afib- improved on meds please call back if needed Problem List - Problems (1) Sepsis Code(s): A41.9 - SEPSIS, UNSPECIFIED ORGANISM Qualifiers: Sepsis type: sepsis due to unspecified organism Qualified Code(s): A41.9 - Sepsis, unspecified organism (2) Pneumonia Code(s): J18.9 - PNEUMONIA, UNSPECIFIED ORGANISM Qualifiers: Pneumonia type: due to methicillin-sensitive Staphylococcus aureus (MSSA) (3) Hypoxemia Code(s): R09.02 - HYPOXEMIA (4) COPD exacerbation Code(s): J44.1 - CHRONIC OBSTRUCTIVE PULMONARY DISEASE W (ACUTE) EXACERBATION (5) Rapid atrial fibrillation Code(s): I48.91 - UNSPECIFIED ATRIAL FIBRILLATION (6) Elevated troponin Code(s): R74.8 - ABNORMAL LEVELS OF OTHER SERUM ENZYMES (7) Prolonged Q-T interval on ECG Code(s): R94.31 - ABNORMAL ELECTROCARDIOGRAM [ECG] [EKG]
[2018-04-05] MEDS: LISINOPRIL 20 MG TABLET (FP) PO SCH (10:59)
[2018-04-05] MEDS: amLODIPine BESYLATE 10 MG TABLET (FP) PO SCH (10:59)
[2018-04-05] MEDS: METOPROLOL TARTRATE 50 MG TABLET (FP) PO SCH ×2 (10:59→22:02)
[2018-04-05] MEDS: AMINO ACIDS 4.25%/D5W 1,000 ML IV SCH (11:00)
[2018-04-05] MEDS: PANTOPRAZOLE SODIUM 40 MG VIAL IVPUSH SCH (11:00)
[2018-04-05] MEDS: POLYETHYLENE GLYCOL 3350 119 GM BTL NGT SCH (11:04)
[2018-04-05] MEDS: ZINC OXIDE 20% TOPICAL OINTMENT 30 GM TUBE TP SCH ×2 (11:35→22:03)
--- NOTE | 2018-04-05 11:47 | PN ---
Progress Note (short form) - Note Progress Note: s/p sigmoid colectomy , colostomy tolerating diet no distress Vital Signs - 24 hr 04/04/18 04/04/18 04/04/18 14:54 17:19 20:45 Temperature 97.9 F 99.1 F 98.8 F Pulse Rate 94 H 87 85 Respiratory 18 20 20 Rate Blood Pressure 147/99 149/76 135/74 O2 Sat by Pulse Oximetry (%) 04/04/18 04/05/18 04/05/18 21:00 06:00 10:00 Temperature 98 F 99.5 F Pulse Rate 100 H 102 H Respiratory 20 20 18 Rate Blood Pressure 152/81 148/82 O2 Sat by Pulse 95 Oximetry (%) Current Medications Generic Name Dose Route Start Last Admin Trade Name Freq PRN Reason Stop Dose Admin Albuterol/Ipratropium 1 amp 04/01/18 10:45 04/05/18 11:40 Duoneb - NEB 1 amp Q4H PRN Administration SHORTNESS OF BREATH Amino Acids 30 ml 03/30/18 17:30 04/05/18 08:25 Prosource No Carb Liquid Pkt PO 30 ml BID@0800,1730 [facility] Administration Amlodipine Besylate 10 mg 04/02/18 10:00 04/05/18 10:59 Norvasc - PO 10 mg DAILY [facility] Administration Atorvastatin Calcium 40 mg 03/30/18 22:00 04/04/18 21:10 Lipitor - PO 40 mg HS [facility] Administration Emollient Ointment 1 applic 03/30/18 19:36 04/04/18 21:09 Aquaphor - TP 1 applic Q12H PRN Administration RASH Insulin Aspart 1 vial 03/30/18 16:30 04/05/18 06:40 Novolog Vial Sliding Scale - SQ 4 units ACHS [facility] Administration Protocol Lisinopril 40 mg 03/31/18 10:00 04/05/18 10:59 Prinivil PO 40 mg DAILY [facility] Administration Methyl Salicylate 1 applic 03/30/18 13:58 Felix-Seaman - TP Q8H PRN BODY ACHES Metoprolol Tartrate 50 mg 03/30/18 22:00 04/05/18 10:59 Lopressor - PO 50 mg BID [facility] Administration Multi-Ingredient Ointment 1 applic 03/30/18 22:00 04/05/18 11:35 Zinc Oxide TP 1 applic BID [facility] Administration Pantoprazole Sodium 40 mg 03/31/18 10:00 04/05/18 11:00 Protonix Iv IVPUSH 40 mg DAILY [facility] Administration Polyethylene Glycol 17 gm 03/30/18 16:30 04/05/18 11:04 Miralax (For Daily Use) - NGT 17 grams DAILY [facility] Administration Laboratory Results - last 24 hr 04/04/18 04/04/18 04/05/18 17:32 20:53 06:39 POC Glucometer 294 185 249 S1 S2 irregular Lungs decreased ABd- soft, tender+, dressing noted in midline colostomy--brown liquid stool edema+ PLAN advance diet clinimix dc off antibiotics incentive spirometry CXR-- atelectasis will need to start eliquis if ok with Surgery dc planning to [place] Problem List - Problems (1) Demand ischemia Code(s): I24.8 - OTHER FORMS OF ACUTE ISCHEMIC HEART DISEASE (2) Elevated troponin Code(s): R74.8 - ABNORMAL LEVELS OF OTHER SERUM ENZYMES (3) Pneumonia Code(s): J18.9 - PNEUMONIA, UNSPECIFIED ORGANISM Qualifiers: Pneumonia type: due to methicillin-sensitive Staphylococcus aureus (MSSA) (4) Rapid atrial fibrillation Code(s): I48.91 - UNSPECIFIED ATRIAL FIBRILLATION (5) Sepsis Code(s): A41.9 - SEPSIS, UNSPECIFIED ORGANISM Qualifiers: Sepsis type: sepsis due to unspecified organism Qualified Code(s): A41.9 - Sepsis, unspecified organism
--- NOTE | 2018-04-05 12:32 | PN ---
Progress Note (short form) - Note Progress Note: PULMONARY No fevers recorded. Appears comfortable. Vital Signs Period Temp Pulse Resp BP Sys/Pham Pulse Ox Last 24 Hr 97.9 F-99.5 F 85-102 18-20 135-152/74-99 95-95 Gen: mildly tachypneic at rest Heart: RRR Lung: bilateral rhonchi Abd: softly distended, nontender Ext: no edema CBC, BMP 04/04/18 06:30 04/04/18 06:30 Active Medications Albuterol/Ipratropium (Duoneb -) 1 amp NEB Q4H PRN PRN Reason: SHORTNESS OF BREATH Last Admin: 04/05/18 11:40 Dose: 1 amp Amino Acids (Prosource No Carb Liquid Pkt) 30 ml PO BID@0800,1730 [facility] Last Admin: 04/05/18 08:25 Dose: 30 ml Amlodipine Besylate (Norvasc -) 10 mg PO DAILY [facility] Last Admin: 04/05/18 10:59 Dose: 10 mg Atorvastatin Calcium (Lipitor -) 40 mg PO HS [facility] Last Admin: 04/04/18 21:10 Dose: 40 mg Emollient Ointment (Aquaphor -) 1 applic TP Q12H PRN PRN Reason: RASH Last Admin: 04/04/18 21:09 Dose: 1 applic Insulin Aspart (Novolog Vial Sliding Scale -) 1 vial SQ ACHS [facility]; Protocol Last Admin: 04/05/18 12:30 Dose: 6 units Lisinopril (Prinivil) 40 mg PO DAILY [facility] Last Admin: 04/05/18 10:59 Dose: 40 mg Methyl Salicylate (Felix-Seaman -) 1 applic TP Q8H PRN PRN Reason: BODY ACHES Metoprolol Tartrate (Lopressor -) 50 mg PO BID [facility] Last Admin: 04/05/18 10:59 Dose: 50 mg Multi-Ingredient Ointment (Zinc Oxide) 1 applic TP BID [facility] Last Admin: 04/05/18 11:35 Dose: 1 applic Pantoprazole Sodium (Protonix Iv) 40 mg IVPUSH DAILY [facility] Last Admin: 04/05/18 11:00 Dose: 40 mg Polyethylene Glycol (Miralax (For Daily Use) -) 17 gm NGT DAILY [facility] Last Admin: 04/05/18 11:04 Dose: 17 grams A/P s/p Acute Hypoxic Respiratory Failure Pneumonia likely Aspiration Sigmoid Volvulus s/p Rectal Tube Decompression Sepsis resolved LV Diastolic Dysfunction +Troponins likely Demand Ischemia Paroxysmal Atrial Fibrillation h/o CVA - completed antibiotics - O2 to keep SpO2 >90% - inhaled bronchodilators - aspiration precautions - rate control - resume anticoagulation when ok with surgery - DVT prophylaxis
[2018-04-05] MEDS: PANTOPRAZOLE SOD 40 MG SUSPENSION PACKET PO SCH (13:07)
--- NOTE | 2018-04-05 15:01 | PN ---
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
[2018-04-05 16:38] VITALS: BMI 31.1
[2018-04-05] MEDS: ATORVASTATIN CA 40 MG TABLET (FP) PO SCH (22:02)
[2018-04-05] MEDS: APIXABAN 5 MG TABLET PO SCH (22:02)
[2018-04-06] MEDS: INSULIN SLIDING SCALE (NOVOLOG) 1 VIAL SQ SCH ×3 (06:25→16:33)
[2018-04-06] MEDS ORDERED: PT OWN MED DRAWER 7, Y5N ONE ×2 (08:33→09:36)
[2018-04-06] MEDS: AMINO ACIDS/PROTEIN HYDROLYS 30 ML LIQUID.PKT PO SCH ×2 (08:39→17:01)
[2018-04-06] MEDS: METOPROLOL TARTRATE 50 MG TABLET (FP) PO SCH (09:39)
[2018-04-06] MEDS: APIXABAN 5 MG TABLET PO SCH (09:39)
[2018-04-06] MEDS: LISINOPRIL 20 MG TABLET (FP) PO SCH (09:40)
[2018-04-06] MEDS: amLODIPine BESYLATE 10 MG TABLET (FP) PO SCH (09:40)
[2018-04-06] MEDS: PANTOPRAZOLE SOD 40 MG SUSPENSION PACKET PO SCH (09:40)
[2018-04-06] MEDS: ZINC OXIDE 20% TOPICAL OINTMENT 30 GM TUBE TP SCH (09:47)
--- NOTE | 2018-04-06 10:58 | DS ---
Physical Examination Vital Signs: Vital Signs Temperature 98.5 F 04/06/18 06:00 Pulse Rate 89 04/06/18 06:00 Respiratory Rate 20 04/06/18 06:00 Blood Pressure 140/78 04/06/18 06:00 O2 Sat by Pulse Oximetry (%) 95 04/05/18 21:00 Constitutional: Yes: No Distress Cardiovascular: Yes: Pulse Irregular Respiratory: Yes: Diminished Gastrointestinal: Yes: Normal Bowel Sounds, Soft, Abdomen, Obese, Other ( colostomy, ventral karon+) Edema: Yes Edema: LLE: Trace, RLE: Trace Labs: CBC, BMP 04/04/18 06:30 04/04/18 06:30 Discharge Summary Reason For Visit: SEPSIS Current Active Problems Abdominal pain (Acute) Chronic anticoagulation (Acute) Demand ischemia (Acute) Distended abdomen (Acute) Elevated troponin (Acute) History of open sigmoidectomy (Acute) Hypokalemia (Acute) Hypoxemia (Acute) Leucocytosis (Acute) Pneumonia (Acute) Pre-operative cardiovascular examination (Acute) Premature ventricular contraction (Acute) Prolonged Q-T interval on ECG (Acute) Rapid atrial fibrillation (Acute) Sepsis (Acute) Volvulus (Acute) Volvulus of descending colon (Acute) Volvulus of sigmoid colon (Acute) Hospital Course: Hospital Course: Admitted for sepsis, left Lowe lobe pneumonia, rapid Afib Seen by ID, Cardiology and GI Started Eliquis and rate control Course complicated by sigmoid volvulus Seen by GI and Surgery he underwent sigmoid colectomy, colostomy placement on 03/27/18- pt is now toleratingf puree diet- but needs encouragement to meet nutritional needs. Will need to follow up with Dr Sharif Surgeon in one week for removal of karon and check up stable for dc to [place] for STR Condition: Fair - Instructions Diet, Activity, Other Instructions: Follow-up: Call Dr. Sharif' office at [phone] to make your follow-up appointment (Tuesday in approximately 2 weeks after surgery as advised). Clinic is held in the [facility] on the first floor of [facility]. Also, see your primary medical doctor within 1-2 weeks. Rectal tube placements every other day Referrals: Maciej Bautista MD [Primary Care Provider] - Disposition: CUSTODIAL FACILITY - Home Medications Comprehensive Discharge Medication List: Ambulatory Orders Acetaminophen [Tylenol .Regular Strength -] 650 mg PO Q4H PRN 02/28/18 Albuterol 2.5/Ipratropium 0.5 [Duoneb -] 1 neb IH QID 02/28/18 Ascorbic Acid [Vitamin C -] 500 mg PO DAILY 02/28/18 Atorvastatin Ca [Lipitor] 40 mg PO HS 02/28/18 Ergocalciferol [Vitamin D2] 50,000 unit PO WEEKLY 02/28/18 Insulin (LOG) Aspart [NovoLOG -] 0 units SQ BID 02/28/18 Nystatin 100,000 unit PO QID 02/28/18 Sennosides [Senna -] 2 tab PO HS 02/28/18 Sennosides/Docusate Sodium [Senexon-S Tablet] 1 each PO HS 02/28/18 Zinc Oxide 20% Topical Oint 454 gm NR BID 02/28/18 Methyl Salicylate/Menth/Camph [Bengay Ultra Strength Cream] 1 applic TP TID 11/09 Apixaban [Eliquis -] 5 mg PO BID #60 tablet 03/22/18 Insulin (Levemir) [Levemir Vial] 22 units SQ HS #30 units 03/22/18 Lisinopril [Prinivil] 40 mg PO DAILY #60 tablet 03/22/18 Metoprolol Tartrate [Lopressor -] 50 mg PO BID #60 tablet 03/22/18 Ranitidine [Zantac -] 150 mg PO BID #60 tablet 03/22/18
--- NOTE | 2018-04-06 11:44 | PN ---
Progress Note, Physician History of Present Illness: POD#10 open sigmoid colectomy, rate-controlled afib, Eliquis resumed as hemostasis achieved. - Current Medication List Current Medications: Active Medications Albuterol/Ipratropium (Duoneb -) 1 amp NEB Q4H PRN PRN Reason: SHORTNESS OF BREATH Last Admin: 04/05/18 11:40 Dose: 1 amp Amino Acids (Prosource No Carb Liquid Pkt) 30 ml PO BID@0800,1730 [facility] Last Admin: 04/06/18 08:39 Dose: 30 ml Amlodipine Besylate (Norvasc -) 10 mg PO DAILY [facility] Last Admin: 04/06/18 09:40 Dose: 10 mg Apixaban (Eliquis -) 5 mg PO BID [facility] Last Admin: 04/06/18 09:39 Dose: 5 mg Atorvastatin Calcium (Lipitor -) 40 mg PO HS [facility] Last Admin: 04/05/18 22:02 Dose: 40 mg Emollient Ointment (Aquaphor -) 1 applic TP Q12H PRN PRN Reason: RASH Last Admin: 04/04/18 21:09 Dose: 1 applic Insulin Aspart (Novolog Vial Sliding Scale -) 1 vial SQ ACHS [facility]; Protocol Last Admin: 04/06/18 06:25 Dose: 4 units Lisinopril (Prinivil) 40 mg PO DAILY [facility] Last Admin: 04/06/18 09:40 Dose: 40 mg Methyl Salicylate (Felix-Seaman -) 1 applic TP Q8H PRN PRN Reason: BODY ACHES Metoprolol Tartrate (Lopressor -) 50 mg PO BID [facility] Last Admin: 04/06/18 09:39 Dose: 50 mg Multi-Ingredient Ointment (Zinc Oxide) 1 applic TP BID [facility] Last Admin: 04/06/18 09:47 Dose: 1 applic Pantoprazole Sodium (Protonix Packets For Oral Suspension -) 40 mg PO DAILY [facility] Last Admin: 04/06/18 09:40 Dose: 40 mg Polyethylene Glycol (Miralax (For Daily Use) -) 17 gm NGT DAILY [facility] Last Admin: 04/05/18 11:04 Dose: 17 grams - Objective Vital Signs: Vital Signs Temperature 98.5 F 04/06/18 06:00 Pulse Rate 89 04/06/18 06:00 Respiratory Rate 20 04/06/18 06:00 Blood Pressure 140/78 04/06/18 06:00 O2 Sat by Pulse Oximetry (%) 95 04/05/18 21:00 Constitutional: Yes: No Distress, Calm Neck: Yes: Supple Cardiovascular: Yes: Regular Rate and Rhythm Respiratory: Yes: Regular, Diminished Gastrointestinal: Yes: Normal Bowel Sounds, Soft, Other (colostomy) Edema: No Labs: CBC, BMP 04/04/18 06:30 04/04/18 06:30 INR, PTT INR 1.64 (0.83-1.09) H 03/26/18 11:55 Problem List - Problems (1) Elevated troponin Code(s): R74.8 - ABNORMAL LEVELS OF OTHER SERUM ENZYMES (2) Rapid atrial fibrillation Code(s): I48.91 - UNSPECIFIED ATRIAL FIBRILLATION (3) Diastolic dysfunction Code(s): I51.9 - HEART DISEASE, UNSPECIFIED (4) H/O: CVA (cerebrovascular accident) Code(s): Z86.73 - PRSNL HX OF TIA (TIA), AND CEREB INFRC W/O RESID DEFICITS (5) Hyperlipidemia Code(s): E78.5 - HYPERLIPIDEMIA, UNSPECIFIED Qualifiers: Hyperlipidemia type: pure hypercholesterolemia Qualified Code(s): E78.00 - Pure hypercholesterolemia, unspecified; E78.0 - Pure hypercholesterolemia (6) Hypertension Code(s): I10 - ESSENTIAL (PRIMARY) HYPERTENSION Qualifiers: Hypertension type: essential hypertension Qualified Code(s): I10 - Essential (primary) hypertension (7) Pneumonia Code(s): J18.9 - PNEUMONIA, UNSPECIFIED ORGANISM Qualifiers: Pneumonia type: due to unspecified organism Laterality: right Lung location: lower lobe of lung Qualified Code(s): J18.1 - Lobar pneumonia, unspecified organism (8) Toxic metabolic encephalopathy Code(s): G92 - TOXIC ENCEPHALOPATHY (9) Demand ischemia Code(s): I24.8 - OTHER FORMS OF ACUTE ISCHEMIC HEART DISEASE (10) Premature ventricular contraction Code(s): I49.3 - VENTRICULAR PREMATURE DEPOLARIZATION (11) Volvulus of descending colon Code(s): K56.2 - VOLVULUS (12) Chronic anticoagulation Code(s): Z79.01 - ALF (CURRENT) USE OF ANTICOAGULANTS (13) History of open sigmoidectomy Code(s): Z98.890 - OTHER SPECIFIED POSTPROCEDURAL STATES; Z90.49 - ACQUIRED ABSENCE OF OTHER SPECIFIED PARTS OF DIGESTIVE TRACT Assessment/Plan 12/20/2017 Echo: Normal LV size and fxn, tr MR, TR 1. Acute Hypoxic Respiratory Failure and right lower lobe aspiration pneumonia 2. Intermittent sigmoid volvulus post rectal tube decompression and now POD#10 sigmoid colectomy, colostomy and umbilical hernia repair 3. 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 Diastolic LV dysfunction with clinical class 0-I NYHA classification LV failure, compensated/euvolemic 5. Paroxysmal atrial fibrillation [id number] score 7 off NOAC 6. Toxic-metabolic encephalopathy 7. History of CVA with residual right-sided weakness PLAN: 1. Continue Lopressor 50 mg BID, Lisinopril 40 mg QD, Norvasc 10 qd and Lipitor 40 qd 2. Resumed Eliquis 5 mg BID as post-op hemostasis achieved 3. Completed antibiotics course 4. D/c planning
--- NOTE | 2018-04-06 12:31 | PN ---
Progress Note, SEAT MENDER - Note Progress Note: Selected Entries 04/04/18 04/04/18 04/04/18 07:06 10:00 14:54 Breakfast 50% Diet Tolerated Lunch 50% Supper Temperature 98.5 F 99.6 F 97.9 F 04/04/18 04/04/18 04/04/18 17:19 20:45 22:43 Breakfast Diet Tolerated Lunch Supper 50% Temperature 99.1 F 98.8 F 04/05/18 04/05/18 04/05/18 06:00 10:00 14:21 Breakfast 100% Diet Tolerated Well Lunch Supper Temperature 98 F 99.5 F 99.5 F Laboratory Tests 04/03/18 04/04/18 06:15 06:30 WBC 11.6 H 12.1 H Selected Entries 04/05/18 04/05/18 04/05/18 06:00 10:00 14:21 Breakfast 100% Supper Temperature 98 F 99.5 F 99.5 F 04/05/18 04/05/18 04/05/18 17:00 19:15 20:00 Breakfast Supper 50% Temperature 99.5 F 99.1 F 04/05/18 04/06/18 04/06/18 22:00 06:00 08:00 Breakfast Supper 50% Temperature 99.1 F 98.5 F 97.3 F L 04/06/18 11:51 Breakfast 50% Supper Temperature Tolerating puree/nectar thick liquid. Cough unlikely sec to aspiration based on previous MBS results and baseline cough/upper airway congestion.
--- NOTE | 2018-04-06 13:39 | PN ---
Progress Note (short form) - Note Progress Note: PULMONARY Pt nonverbal. No fevers recorded. Appears comfortable. Vital Signs Period Temp Pulse Resp BP Sys/Pham Pulse Ox Last 24 Hr 97.3 F-99.5 F 63-96 18-24 140-155/72-87 95-98 Gen: NAD at rest Heart: RRR Lung: decreased breath sounds at the bases Abd: soft, nontender Ext: no edema CBC, BMP 04/04/18 06:30 04/04/18 06:30 Active Medications Albuterol/Ipratropium (Duoneb -) 1 amp NEB Q4H PRN PRN Reason: SHORTNESS OF BREATH Last Admin: 04/05/18 11:40 Dose: 1 amp Amino Acids (Prosource No Carb Liquid Pkt) 30 ml PO BID@0800,1730 [facility] Last Admin: 04/06/18 08:39 Dose: 30 ml Amlodipine Besylate (Norvasc -) 10 mg PO DAILY [facility] Last Admin: 04/06/18 09:40 Dose: 10 mg Apixaban (Eliquis -) 5 mg PO BID [facility] Last Admin: 04/06/18 09:39 Dose: 5 mg Atorvastatin Calcium (Lipitor -) 40 mg PO HS [facility] Last Admin: 04/05/18 22:02 Dose: 40 mg Emollient Ointment (Aquaphor -) 1 applic TP Q12H PRN PRN Reason: RASH Last Admin: 04/04/18 21:09 Dose: 1 applic Insulin Aspart (Novolog Vial Sliding Scale -) 1 vial SQ ACHS [facility]; Protocol Last Admin: 04/06/18 11:50 Dose: 6 units Lisinopril (Prinivil) 40 mg PO DAILY [facility] Last Admin: 04/06/18 09:40 Dose: 40 mg Methyl Salicylate (Felix-Seaman -) 1 applic TP Q8H PRN PRN Reason: BODY ACHES Metoprolol Tartrate (Lopressor -) 50 mg PO BID [facility] Last Admin: 04/06/18 09:39 Dose: 50 mg Multi-Ingredient Ointment (Zinc Oxide) 1 applic TP BID [facility] Last Admin: 04/06/18 09:47 Dose: 1 applic Pantoprazole Sodium (Protonix Packets For Oral Suspension -) 40 mg PO DAILY [facility] Last Admin: 04/06/18 09:40 Dose: 40 mg Polyethylene Glycol (Miralax (For Daily Use) -) 17 gm NGT DAILY [facility] Last Admin: 04/05/18 11:04 Dose: 17 grams A/P s/p Acute Hypoxic Respiratory Failure Pneumonia likely Aspiration Sigmoid Volvulus s/p Rectal Tube Decompression Sepsis resolved LV Diastolic Dysfunction +Troponins likely Demand Ischemia Paroxysmal Atrial Fibrillation h/o CVA - completed antibiotics - O2 to keep SpO2 >90% - inhaled bronchodilators - aspiration precautions - rate control - anticoagulation resumed - DVT prophylaxis
[2018-04-06 14:40] VITALS: BP 141/96; PULSE 96; TEMP 99.2
[2018-04-06] MEDS: POLYETHYLENE GLYCOL 3350 119 GM BTL NGT SCH (16:30)
--- NOTE | 2018-04-26 11:48 | OP ---
THIS IS A REPEAT/ REPLACEMENT DICTATION. MY ORIGINAL WAS SOME HOW LOST. THIS WAS MADE MORE THAN ONE MONTH AFTER ORIGINAL DICTATION WAS FILED. DATE OF OPERATION: 03/27/2018 PREOPERATIVE DIAGNOSIS: Sigmoid volvulus and umbilical hernia. POSTOPERATIVE DIAGNOSIS: Sigmoid volvulus and umbilical hernia. PROCEDURE: Exploratory laparotomy, sigmoid colectomy, and end-colostomy with primary umbilical hernia repair. ATTENDING SURGEON: Rad Sharif MD FUNCTIONAL MENTAL DISABILITY TEACHER: Srinivasa Ding MD ANESTHESIOLOGIST: Yolie Escobar MD ANESTHESIA TYPE: General with local. Local consisted of 0.5% Marcaine, 10 mL given area block fashion at the midline. ESTIMATED BLOOD LOSS: 10 mL. DRAINAGE FROM THE HALEY CATHETER: Viry urine, 100 mL. INTRAVENOUS FLUID REPLACED: Crystalloid, 2500 mL. SPECIMENS SENT: Sigmoid colon, stitch dubois the distal aspect. BRIEF FINDINGS: Massively dilated sigmoid colon, umbilical hernia, which was primarily repaired without mesh. INDICATIONS: Patient had a recurrent sigmoid volvulus, was chronically malnourished, and deemed not a candidate for surgery. After an ethics consult as well as a conference with the family and the primary team, the decision was made to proceed with surgery given the inherent risks to the procedure for postoperative complications. They were explained the risks, benefits, and alternatives, signed informed consent, at which point he was taken for surgery. DESCRIPTION OF PROCEDURE: The patient was brought to the operating room, placed in supine position on the operating table. Lower extremities had SCDs placed to compression. Patient was induced with general anesthesia endotracheally intubated. Formal time-out was completed identifying the operative site and procedure. We began first with all parties in agreement with a midline laparotomy incision, which was scribed on the skin and then incised with a 10-blade scalpel. It was deepened and widened through the subcutaneous tissue and carried down to the midline rectus fascia. The midline was entered into the abdomen bluntly, and then, the finger was used to protect the intraabdominal viscera as the remainder of the incision was open. Once complete, the sigmoid bloused into the abdominal wound, and the sigmoid was then retracted and stapled distal to the site of volvulus, which appeared pinched on the serosa as well as proximally, a point was determined in the sigmoid colon. Both areas were opened with clamp and then transected using a LALA stapler 80 mm for transection. The distal aspect was marked with a 2-0 Prolene stitch and tied at the distal aspect. The remainder of the mesentery for the sigmoid colon was then taken with the LigaSure device close to the bowel wall. The specimen was passed off of the field. We then turned our attention to delivering the transverse colon for an end- colostomy into the wound. The distal rectal remnant was not marked as there was no plan for return for reanastomosis in the future. A segment of the fascia in the left upper quadrant was selected, and then, the skin was opened, and a conical element of the abdominal wall was then dissected using Bovie cautery. Retractors were placed to protect the skin down to the fascia where a cruciate incision was made in the fascia. At which point, we determined that once 3 fingers could be passed through the fascial defect and the peritoneum was open, the end of the transverse colon was delivered through the abdominal wall. We then turned our attention to closing the midline after irrigating the abdominal cavity. The abdomen was irrigated with approximately 1 L of sterile irrigation fluid, which was suctioned from the field. With all abdominal viscera turned to anatomic position, and the remainder of the omentum used draped over the bowel, the midline was closed from the superior and inferior aspects of the incision. It was closed with looped No. 1 PDS from each pole and tied in the center. The skin was then cleaned, and the midline wound was stapled. The umbilical hernia, which was apparent on entry into the abdomen was closed during the primary closure. We then turned our attention to maturing colostomy in the left upper quadrant. The 2-0 Vicryl stitches were used to brook the incision at the cardinal positions north, south, east, and west at the 12, 3, 9, and 6 positions. We then turned our attention to additional interrupted 2-0 Vicryl stitches through and through the dermis to brook after an incision was made using Bovie cautery to remove the staple line. After the end-colostomy was brooked, the colostomy appliance was cut after the skin was cleaned, sterile dressings were placed on the midline, and then, the colostomy was covered with a 57-mm custom-cut colostomy appliance. The patient was awoken from general anesthesia having tolerated the procedure well. Counts were correct prior to the closure of the abdomen. MD HIMA Carlson/[id number] MTDD
== END 2018-04-06 17:36 | DRG 853 ==
LOC: JER 19:31 → JERBED 23:13 → J4W 03-01 12:06 → JICU 03-03 12:27 → J4W 03-07 19:37 → J8W 03-11 15:01 → JICU 03-27 17:04 → J8W 03-30 13:47
PROVIDERS: ADMIT Internal Medicine; ATTEND Internal Medicine
PROC: 3E0F7GC Introduction of Other Therapeutic Substance into Respiratory Tract, Via Natural or Artificial Opening (ICD-10-PCS; 2018-03-04)
PROC: 3E0G76Z Introduction of Nutritional Substance into Upper GI, Via Natural or Artificial Opening (ICD-10-PCS; 2018-03-07)
PROC: 0WQF0ZZ Repair Abdominal Wall, Open Approach (ICD-10-PCS; 2018-03-27)
PROC: 0D1N0Z4 Bypass Sigmoid Colon to Cutaneous, Open Approach (ICD-10-PCS; 2018-03-27)
PROC: 0DTN0ZZ Resection of Sigmoid Colon, Open Approach (ICD-10-PCS; principal; 2018-03-27 13:30)
DX: A41.9 Sepsis, unspecified organism (principal); J69.0 Pneumonitis due to inhalation of food and vomit; G93.41 Metabolic encephalopathy; K56.2 Volvulus; J96.01 Acute respiratory failure with hypoxia; I69.351 Hemiplegia and hemiparesis following cerebral infarction affecting right dominant side; N17.9 Acute kidney failure, unspecified; E87.1 Hypo-osmolality and hyponatremia; I24.8 Other forms of acute ischemic heart disease; E87.0 Hyperosmolality and hypernatremia; I25.110 Atherosclerotic heart disease of native coronary artery with unstable angina pectoris; E87.2 Acidosis; J44.1 Chronic obstructive pulmonary disease with (acute) exacerbation; J98.11 Atelectasis; I50.30 Unspecified diastolic (congestive) heart failure; E78.5 Hyperlipidemia, unspecified; R13.19 Other dysphagia; R50.9 Fever, unspecified; R00.0 Tachycardia, unspecified; E78.00 Pure hypercholesterolemia, unspecified; E86.1 Hypovolemia; E66.9 Obesity, unspecified; Z68.31 Body mass index [BMI] 31.0-31.9, adult; R74.8 Abnormal levels of other serum enzymes; I45.81 Long QT syndrome; R50.82 Postprocedural fever; E87.6 Hypokalemia; E11.65 Type 2 diabetes mellitus with hyperglycemia; K59.00 Constipation, unspecified; I49.3 Ventricular premature depolarization; E83.39 Other disorders of phosphorus metabolism; I48.0 Paroxysmal atrial fibrillation; K42.9 Umbilical hernia without obstruction or gangrene; I11.0 Hypertensive heart disease with heart failure; Z87.891 Personal history of nicotine dependence
CPT/HCPCS: 36415; 36600; 71045-TC-FY; 71250-TC; 74018-TC-FY; 74019-TC-FY; 74176-TC; 74230-TC-FY; 76775-TC; 80048; 80053; 81003; 81015; 82550; 82553; 82803; 82962; 83605; 83735; 83880; 84100; 84134; 84439; 84443; 84484; 85025; 85027; 85610; 85730; 86140; 86850; 86900; 86901; 87040; 87070; 87081; 87086; 87186; 87205; 87324; 87449; 87804; 87899; 88302-TC; 88307-TC; 92611-GN; 93005; 93010; 94002; 94010; 94640; 94760; 97162-GP; 99285-25; G0480; J0131; J1644; J7030

== ENCOUNTER 2018-04-13 10:52 | Inpatient (IN) | payer OTHER ==
[2018-04-13] MEDS ORDERED: ACETAMINOPHEN 1000 MG/100 ML VIAL (NON FORMULARY) IVPB ONE ×2 (11:10→23:46)
[2018-04-13] MEDS ORDERED: SODIUM CHLORIDE 1,000 ML IV STA ×2 (11:10→14:24)
[2018-04-13] MEDS ORDERED: ACETAMINOPHEN INJECTION 100 ML IVPB ONE ×2 (11:15→23:52)
[2018-04-13 11:27] VITALS: BMI 31.0
[2018-04-13] MEDS ORDERED: VANCOMYCIN 1,000 MG in DEXTROSE 5%-WATER - 250 ML IVPB ONE (11:42)
[2018-04-13] MEDS ORDERED: PIPERACILLIN/TAZOB 4.5 GM 4.5 GM in DEXTROSE 5%-WATER 100 ML IVPB ONE (11:42)
[2018-04-13] MEDS ORDERED: PIPERACILLIN/TAZOB 4.5 GM 4.5 GM/100 ML BAG IVPB ONE (11:51)
[2018-04-13 11:57] LABS: BASO % 0.7 % (0-2.0); HEMATOCRIT 33.8 % (35.4-49); HEMOGLOBIN 11.9 GM/dL (11.7-16.9); LYMPH % 24.4 % (8-40); MCH 31.4 pg (25.7-33.7); MCHC 35.3 g/dl (32.0-35.9); MEAN PLT VOLUME 9.4 fl (7.5-11.1); MONO % 10.7 % (3.8-10.2); NEUT % 64.2 % (42.8-82.8); PLATELET COUNT 369 K/MM3 (134-434); RDW 16.1 % (11.9-15.9); WHITE BLOOD COUNT 9.7 K/mm3 (4.0-10.0)
--- NOTE | 2018-04-13 11:58 | PDOC ---
*Physical Exam - Vital Signs Last Vital Signs Temp Pulse Resp BP Pulse Ox 104.0 F H 113 H 18 139/85 100 04/13/18 10:52 04/13/18 10:52 04/13/18 10:52 04/13/18 10:52 04/13/18 10:52 - Physical Exam Comments: 04/13/18 11:58 The patient was seen and evaluated in conjunction with DORA Rollins under my direct supervision, ancillary studies were reviewed. I independently interviewed and evaluated the patient and I agree with the plan as outlined by DORA Rollins. ED Treatment Course - LABORATORY CBC & Chemistry Diagram: 04/20/18 06:15 04/20/18 06:15 - Medications Given in the ED: ED Medications Discontinued Medications Generic Name Dose Route Start Last Admin Trade Name Humbertoq PRN Reason Stop Dose Admin Acetaminophen 1,000 mg 04/13/18 11:10 04/13/18 11:23 Ofirmev Injection - IVPB 04/13/18 11:11 1,000 mg ONCE ONE Administration *DC/Admit/Observation/Transfer Diagnosis at time of Disposition: Severe sepsis - Referrals - Patient Instructions - Post Discharge Activity
[2018-04-13 12:07] LABS: VENOUS PH 7.44 (7.32-7.42)
[2018-04-13 12:35] LABS: INR 1.69 (0.83-1.09)
[2018-04-13 12:38] LABS: ACTIVATED PTT 33.2 SECONDS (25.2-36.5); ALBUMIN 2.5 g/dl (3.4-5.0); ALK PHOS 144 U/L (45-117); ANION GAP 8 MMOL/L (8-16); BILIRUBIN,TOTAL 0.8 mg/dL (0.2-1); BLOOD UREA NITROGEN 21 mg/dL (7-18); CALCIUM 9.3 mg/dL (8.5-10.1); CHLORIDE 100 mmol/L (98-107); CO2 32 mmol/L (21-32); CREATININE 1.3 mg/dL (0.55-1.3); SGOT/AST 75 U/L (15-37); SGPT/ALT 76 U/L (13-61); SODIUM 140 mmol/L (136-145); TOT PROT 8.6 g/dl (6.4-8.2)
[2018-04-13 12:40] LABS: URINE APPEARANCE CLEAR; URINE BILIRUBIN NEGATIVE (<2.0 mg/dL); URINE COLOR DKYELLOW; URINE GLUCOSE (UA) 3+ (NEGATIVE); URINE KETONE NEGATIVE (NEGATIVE); URINE LEUK ESTERASE NEGATIVE (NEGATIVE); URINE NITRITE NEGATIVE (NEGATIVE); URINE PROTEIN 2+ (NEGATIVE)
[2018-04-13 12:43] LABS: GLUCOSE,RANDOM 390 mg/dL (74-106)
[2018-04-13 13:32] LABS: EPI CELLS 1+ /HPF (FEW); URINE BACTERIA 1 /hpf (NONE SEEN)
[2018-04-13] MEDS ORDERED: VANCOMYCIN 1 GRAM (PRE-DOCKED) 1,000 MG/250 ML BAG IVPB ONE (13:50)
--- NOTE | 2018-04-13 15:04 | PDOC ---
History of Present Illness - General Chief Complaint: SIRS, Suspected/Possible Stated Complaint: FEVER Time Seen by Provider: 04/13/18 10:56 History Source: [facility] Records - History of Present Illness Initial Comments: 04/13/18 12:06 78-year-old male [facility] for evaluation of fever 101.3. As per staff patient had labs done a few days prior with no acute findings and had chest x-ray that suggests pneumonia. Patient with recent sigmoid resection with colostomy placed approximately 10 days prior. Patient also with decubiti to the sacral area and then opened abdominal wound secondary to colon resection. Timing/Duration: constant Severity: moderate Associated Symptoms: reports: fever/chills Past History - Travel Traveled outside of the country in the last 30 days: No Close contact w/someone who was outside of country & ill: No - Past Medical History Allergies/Adverse Reactions: Allergies Allergy/AdvReac Type Severity Reaction Status Date / Time No Known Allergies Allergy Verified 04/13/18 11:31 Home Medications: Ambulatory Orders Acetaminophen [Tylenol .Regular Strength -] 650 mg PO Q4H PRN 02/28/18 Albuterol 2.5/Ipratropium 0.5 [Duoneb -] 1 neb IH QID 02/28/18 Ascorbic Acid [Vitamin C -] 500 mg PO DAILY 02/28/18 Atorvastatin Ca [Lipitor] 40 mg PO HS 02/28/18 Ergocalciferol [Vitamin D2] 50,000 unit PO WEEKLY 02/28/18 Insulin (LOG) Aspart [NovoLOG -] 0 units SQ BID 02/28/18 Nystatin 100,000 unit PO QID 02/28/18 Sennosides [Senna -] 2 tab PO HS 02/28/18 Sennosides/Docusate Sodium [Senexon-S Tablet] 1 each PO HS 02/28/18 Zinc Oxide 20% Topical Oint 454 gm NR BID 02/28/18 Methyl Salicylate/Menth/Camph [Bengay Ultra Strength Cream] 1 applic TP TID 11/09 Apixaban [Eliquis -] 5 mg PO BID #60 tablet 03/22/18 Insulin (Levemir) [Levemir Vial] 22 units SQ HS #30 units 03/22/18 Lisinopril [Prinivil] 40 mg PO DAILY #60 tablet 03/22/18 Metoprolol Tartrate [Lopressor -] 50 mg PO BID #60 tablet 03/22/18 Ranitidine [Zantac -] 150 mg PO BID #60 tablet 03/22/18 Anemia: No Asthma: No Cardiac Disorders: Yes (atrial fib) CVA: Yes (rt side hemiparesis) COPD: Yes CHF: No Diabetes: Yes GI Disorders: Yes (GERD) HTN: Yes Hypercholesterolemia: Yes Other medical history: Vit D, Ascorbic Acid deficiency - Surgical History GI Surgery: Yes (volvulus or ascending colon sx) Neurologic Surgery: No - Immunization History Immunization Up to Date: Yes - Suicide/Smoking/Psychosocial Hx Smoking Status: No Smoking History: Never smoked Have you smoked in the past 12 months: No Number of Cigarettes Smoked Daily: 0 If you are a former smoker, when did you quit?: 6 years ago Information on smoking cessation initiated: No Hx Alcohol Use: No Drug/Substance Use Hx: No Substance Use Type: None Hx Substance Use Treatment: No Patient Lives Alone: No Lives with/in: jail Review of Systems - Review of Systems Able to Perform ROS?: Yes Constitutional: Yes: Fever Respiratory: No: Cough ABD/GI: No: Constipated, Diarrhea Integumentary: No: Symptoms Reported Hematologic/Lymphatic: No: Symptoms Reported *Physical Exam - Vital Signs Last Vital Signs Temp Pulse Resp BP Pulse Ox 104.0 F H 113 H 18 139/85 100 04/13/18 10:52 04/13/18 10:52 04/13/18 10:52 04/13/18 10:52 04/13/18 10:52 - Physical Exam General Appearance: Yes: Nourished, Appropriately Dressed. No: Apparent Distress HEENT: positive: EOMI, JEREL, TMs Normal, Pharynx Normal. negative: Pale Conjunctivae Neck: positive: Supple Respiratory/Chest: positive: Lungs Clear, Normal Breath Sounds, Decreased Breath Sounds (secondary to poor inspiratory effort). negative: Respiratory Distress, Accessory Muscle Use Cardiovascular: positive: Regular Rhythm, Tachycardia. negative: Murmur Gastrointestinal/Abdominal: positive: Normal Bowel Sounds, Soft, Distended ( mild around vertical lower incision) Extremity: positive: Normal Capillary Refill, Pedal Edema (1+ ble) Integumentary: positive: Other (Noted stage II sacral decubiti to bilateral buttocks. Noted opened wound to distal aspect of abdominal incision draining serosanguineous fluid.) Neurologic: positive: Alert Moderate Sedation - Procedure Monitoring Vital Signs: Procedure Monitoring Vital Signs Temperature 104.0 F H 04/13/18 10:52 Pulse Rate 113 H 04/13/18 10:52 Respiratory Rate 18 04/13/18 10:52 Blood Pressure 139/85 04/13/18 10:52 O2 Sat by Pulse Oximetry (%) 100 04/13/18 10:52 Heart Score/ECG Review - History History: Slightly suspicious - Electrocardiogram EKG: Normal - Age Age: >/= 65 - Risk Factors Based on the list above the patient has:: 1-2 risk factors - Troponin Troponin: 1-3x normal limit (rate 111. sinus tachycardia with PVC) - Score Heart Score - Total: 4 - ECG Intrepretation Rhythm: Regular Rhythm ED Treatment Course - LABORATORY CBC & Chemistry Diagram: 04/13/18 11:40 04/13/18 11:40 - ADDITIONAL ORDERS Additional order review: Laboratory Results 04/13/18 04/13/18 04/13/18 11:50 11:40 11:40 PT with INR INR PTT (Actin FS) VBG pH POC VBG pCO2 POC VBG pO2 Mixed VBG HCO3 Sodium Potassium Chloride Carbon Dioxide Anion Gap BUN Creatinine Creat Clearance w eGFR Random Glucose Lactic Acid 3.6 H* Calcium Total Bilirubin AST ALT Alkaline Phosphatase Troponin I Total Protein Albumin Urine Color Dkyellow Urine Appearance Clear Urine pH 5.0 Ur Specific [place] 1.032 Urine Protein 2+ H Urine Glucose (UA) 3+ H Urine Ketones Negative Urine Blood 2+ H Urine Nitrite Negative Urine Bilirubin Negative Urine Urobilinogen 2.0 Ur Leukocyte Esterase Negative Urine WBC (Auto) 0-3 Urine RBC (Auto) 5-10 Ur Epithelial Cells 1+ Urine Bacteria 1 Blood Type A POSITIVE Antibody Screen Negative 04/13/18 04/13/18 04/13/18 11:40 11:40 11:40 PT with INR INR PTT (Actin FS) VBG pH 7.44 H POC VBG pCO2 45.0 POC VBG pO2 45.0 Mixed VBG HCO3 30.2 H Sodium 140 Potassium 4.0 Chloride 100 Carbon Dioxide 32 Anion Gap 8 BUN 21 H Creatinine 1.3 Creat Clearance w eGFR 53.67 Random Glucose 390 H* Lactic Acid Calcium 9.3 Total Bilirubin 0.8 AST 75 H ALT 76 H Alkaline Phosphatase 144 H Troponin I Cancelled 0.23 H Total Protein 8.6 H Albumin 2.5 L Urine Color Urine Appearance Urine pH Ur Specific [place] Urine Protein Urine Glucose (UA) Urine Ketones Urine Blood Urine Nitrite Urine Bilirubin Urine Urobilinogen Ur Leukocyte Esterase Urine WBC (Auto) Urine RBC (Auto) Ur Epithelial Cells Urine Bacteria Blood Type Antibody Screen 04/13/18 11:40 PT with INR 20.00 H INR 1.69 H PTT (Actin FS) 33.2 VBG pH POC VBG pCO2 POC VBG pO2 Mixed VBG HCO3 Sodium Potassium Chloride Carbon Dioxide Anion Gap BUN Creatinine Creat Clearance w eGFR Random Glucose Lactic Acid Calcium Total Bilirubin AST ALT Alkaline Phosphatase Troponin I Total Protein Albumin Urine Color Urine Appearance Urine pH Ur Specific [place] Urine Protein Urine Glucose (UA) Urine Ketones Urine Blood Urine Nitrite Urine Bilirubin Urine Urobilinogen Ur Leukocyte Esterase Urine WBC (Auto) Urine RBC (Auto) Ur Epithelial Cells Urine Bacteria Blood Type Antibody Screen 04/13/18 11:40 Gram Stain - Final Abdomen 04/13/18 11:40 RBC 3.80 L MCV 89.0 MCHC 35.3 RDW 16.1 H MPV 9.4 Neutrophils % 64.2 Lymphocytes % 24.4 D Monocytes % 10.7 H Eosinophils % 0.0 D Basophils % 0.7 - RADIOLOGY Radiology Studies Ordered: Category Date Time Status ABDOMEN & PELVIS CT WITH CONTR [CT] Stat CT Scan 04/13/18 14:24 Ordered CHEST X-RAY PORTABLE* [RAD] Stat Radiology 04/13/18 11:08 Completed - Medications Given in the ED: ED Medications Discontinued Medications Generic Name Dose Route Start Last Admin Trade Name Brayan PRN Reason Stop Dose Admin Acetaminophen 1,000 mg 04/13/18 11:10 04/13/18 11:23 Ofirmev Injection - IVPB 04/13/18 11:11 1,000 mg ONCE ONE Administration Sodium Chloride 1,000 mls @ 1,000 mls/hr 04/13/18 11:10 04/13/18 11:23 Normal Saline - IV 04/13/18 12:09 1,000 mls/hr ASDIR STA Administration Vancomycin HCl 1,000 mg/ 250 mls @ 166.667 mls/hr 04/13/18 11:42 04/13/18 13: 30 Dextrose IVPB 04/13/18 13:11 166.667 mls/hr ONCE ONE Administration Protocol Piperacillin Sod/Tazobactam 100 mls @ 200 mls/hr 04/13/18 11:42 04/13/18 12: 10 Sod 4.5 gm/ Dextrose IVPB 04/13/18 12:11 200 mls/hr ONCE ONE Administration Protocol Medical Decision Making - Medical Decision Making 04/13/18 12:20 Complaint: Fever of unknown origin. Patient with recent volvulus requiring sigmoid resection and colostomy. No current antibiotics on MAR Exam: Febrile noted open surgical abdominal wound, blood pressure stable satting 99% on 2 L Plan: Septic workup, abdominal CT with contrast if creatinine is within normal limits, IV Tylenol influenza swab, wound culture obtained from abdominal wound, 04/13/18 14:02 Laboratory Tests 03/03/18 03/05/18 04/13/18 12:45 05:30 11:40 WBC Hgb Hct RDW Monocytes % PT with INR INR PTT (Actin FS) VBG pH POC VBG pCO2 POC VBG pO2 Mixed VBG HCO3 Sodium Potassium Chloride Carbon Dioxide Anion Gap BUN Creatinine Creat Clearance w eGFR Random Glucose Lactic Acid Calcium Total Bilirubin AST ALT Alkaline Phosphatase Troponin I 0.58 H 0.23 H Total Protein Albumin Urine Protein Urine Blood Ur Leukocyte Esterase Urine WBC (Auto) Urine RBC (Auto) Influenza A (Rapid) Negative Influenza B (Rapid) Negative 04/13/18 04/13/18 04/13/18 11:40 11:40 11:40 WBC 9.7 Hgb 11.9 Hct 33.8 L RDW 16.1 H Monocytes % 10.7 H PT with INR 20.00 H INR 1.69 H PTT (Actin FS) 33.2 VBG pH 7.44 H POC VBG pCO2 45.0 POC VBG pO2 45.0 Mixed VBG HCO3 30.2 H Sodium Potassium Chloride Carbon Dioxide Anion Gap BUN Creatinine Creat Clearance w eGFR Random Glucose Lactic Acid Calcium Total Bilirubin AST ALT Alkaline Phosphatase Troponin I Total Protein Albumin Urine Protein Urine Blood Ur Leukocyte Esterase Urine WBC (Auto) Urine RBC (Auto) Influenza A (Rapid) Influenza B (Rapid) 04/13/18 04/13/18 04/13/18 11:40 11:40 11:50 WBC Hgb Hct RDW Monocytes % PT with INR INR PTT (Actin FS) VBG pH POC VBG pCO2 POC VBG pO2 Mixed VBG HCO3 Sodium 140 Potassium 4.0 Chloride 100 Carbon Dioxide 32 Anion Gap 8 BUN 21 H Creatinine 1.3 Creat Clearance w eGFR 53.67 Random Glucose 390 H* Lactic Acid 3.6 H* Calcium 9.3 Total Bilirubin 0.8 AST 75 H ALT 76 H Alkaline Phosphatase 144 H Troponin I 0.23 H Total Protein 8.6 H Albumin 2.5 L Urine Protein 2+ H Urine Blood 2+ H Ur Leukocyte Esterase Negative Urine WBC (Auto) 0-3 Urine RBC (Auto) 5-10 Influenza A (Rapid) Influenza B (Rapid) Patient order for IV vancomycin and IV Zosyn. Patient in route to CAT scan and second liter of normal saline hanging. Patient revitalized and temperature 100.3 rectally. Will contact shortly 04/13/18 17:[address] shows a left lower quadrant colostomy midline surgical incision which appears to be partially dehiscence and a trace amount of fluid seen within the incision site. There is mild focal edema within the intra-abdominal cavity immediately subjacent to the incision which may be Cipro surgical and/or inflammatory basis. No intra-abdominal abscess or free fluid is visualized. There is no evidence of pneumoperitoneum. Interval development of marked gallbladder distention is noted with gallbladder currently measuring 14 x 12 x 9 with no obvious radioplaque gallbladder calculus noted. There is no definitive biliary dilitation. Development of a cecal distention is noted with a 10 cm maximal transverse diameter. There is moderate fecal retention within the ascending colon. The right posterior basilar pulmonary infiltrate is seen which appears somewhat smaller in the comparison to previous exam Lipase ordered but not resulted. 04/13/18 17:26 Laboratory Tests 04/13/18 16:14 Lactic Acid 2.0 04/13/18 17:32 Called and spoke to chemistry who state the add-on test is not fully functional and a lipase was reordered. I also ordered a gallbladder BASED ON CT FINDINGS AND CLINICAL FINDINGS OF SEPSIS. Case discussed with Hospitalist accepted to [facility] inpatient. 04/13/18 18:52 Laboratory Tests 04/13/18 11:40 Lipase 707 H Ultrasound pending. hospitalist updated. *DC/Admit/Observation/Transfer Diagnosis at time of Disposition: Severe sepsis - Discharge Dispostion Decision to Admit order: Yes - Referrals Referrals: Tyrell Vanegas MD [Primary Care Provider] - - Patient Instructions - Post Discharge Activity
--- NOTE | 2018-04-13 16:56 | EKG ---
Test Reason : Blood Pressure : / mmHG Vent. Rate : 111 BPM Atrial Rate : 111 BPM P-R Int : 146 ms QRS Dur : 086 ms QT Int : 268 ms P-R-T Axes : 058 000 -42 degrees QTc Int : 364 ms SINUS TACHYCARDIA WITH FREQUENT PREMATURE VENTRICULAR COMPLEXES NONSPECIFIC T WAVE ABNORMALITY ABNORMAL ECG WHEN COMPARED WITH ECG OF 05-MAR-2018 10:04, PREMATURE VENTRICULAR COMPLEXES ARE NOW PRESENT NONSPECIFIC T WAVE ABNORMALITY NOW EVIDENT IN LATERAL LEADS Confirmed by LUIS ALBERTO ENCARNACION MD ([id number]) on 04/13/2018 4:55:57 PM Referred By: Confirmed By:LUIS ALBERTO ENCARNACION MD
[2018-04-13 17:50] LABS: LIPASE 707 U/L (73-393)
--- NOTE | 2018-04-13 19:35 | PN ---
Teaching Attending Note Name of Resident: Anusha Gunderson ATTENDING PHYSICIAN STATEMENT I saw and evaluated the patient. I reviewed the resident's note and discussed the case with the resident. I agree with the resident's findings and plan as documented. SUBJECTIVE: Patient is a 78-year-old man with history of DM, HTN, HLD, vit D&C deficiencies , COPD, ?CHF, tracheostomy reversal, dysphagia, wound infection, CVA with residual right hemiparesis, afib on eliquis and colectomy [facility] for evaluation of fever 101.3. As per staff patient had labs done a few days prior with no acute findings and had chest x-ray that suggests pneumonia. Patient with recent sigmoid resection with colostomy placed approximately 10 days prior. Patient also with decubiti to the sacral area and then opened abdominal wound secondary to colon resection. He was recently hospitalized in Feb/Mar for multiple comorbid issues including wound infection. OBJECTIVE: Alert Vital Signs Period Temp Pulse Resp BP Sys/Pham Pulse Ox Last 24 Hr 99.7 F-104.0 F 110-115 18-22 139-155/81-91 100-100 HEENT: No Jaundice, eye redness or discharge, PERRLA, EOMI. Normocephalic, atraumatic. External ears are normal and hearing is grossly intact. No nasal discharge. Neck: Supple, nontender. No palpable adenopathy or thyromegaly. No JVD Chest: Good effort. Clear to auscultation and percussion. Heart: Irregular. No S3, rub or murmur Abdomen: Not distended, soft, nontender and no HSM. LLQ colostomy intact. Midline wound with an open area draining discoloured liquid. No rebound or guarding. Normoactive bowel sounds. Ext: Peripheral pulses intact. No leg edema. Skin: Warm and dry. No petechiae, rash or ecchymosis. Stage 2 sacral decubitus ulcer. Neuro: Alert. Oriented to person. Right hemiparesis. Sensation grossly intact in all four extremities. Current Medications Generic Name Dose Route Start Last Admin Trade Name Freq PRN Reason Stop Dose Admin Piperacillin Sod/Tazobactam 50 mls @ 100 mls/hr 04/13/18 20:00 Sod 3.375 gm/ Dextrose IVPB 04/14/18 10:29 Q8H-IV FLORIN Protocol Home Medications Medication Instructions Recorded Acetaminophen [Tylenol .Regular 650 mg PO Q4H PRN 02/28/18 Strength -] Albuterol 2.5/Ipratropium 0.5 1 neb IH QID 02/28/18 [Duoneb -] Ascorbic Acid [Vitamin C -] 500 mg PO DAILY 02/28/18 Atorvastatin Ca [Lipitor] 40 mg PO HS 02/28/18 Ergocalciferol [Vitamin D2] 50,000 unit PO WEEKLY 02/28/18 Insulin (LOG) Aspart [NovoLOG -] 0 units SQ BID 02/28/18 Nystatin 100,000 unit PO QID 02/28/18 Sennosides [Senna -] 2 tab PO HS 02/28/18 Sennosides/Docusate Sodium 1 each PO HS 02/28/18 [Senexon-S Tablet] Zinc Oxide 20% Topical Oint 454 gm NR BID 02/28/18 Methyl Salicylate/Menth/Camph 1 applic TP TID 03/01/18 [Bengay Ultra Strength Cream] Apixaban [Eliquis -] 5 mg PO BID #60 tablet 03/22/18 Insulin (Levemir) [Levemir Vial] 22 units SQ HS #30 units 03/22/18 Lisinopril [Prinivil] 40 mg PO DAILY #60 tablet 03/22/18 Metoprolol Tartrate [Lopressor -] 50 mg PO BID #60 tablet 03/22/18 Ranitidine [Zantac -] 150 mg PO BID #60 tablet 03/22/18 Abnormal Lab Results 04/13/18 04/13/18 04/13/18 11:40 11:40 11:40 RBC 3.80 L Hct 33.8 L RDW 16.1 H Monocytes % 10.7 H PT with INR 20.00 H INR 1.69 H VBG pH 7.44 H Mixed VBG HCO3 30.2 H BUN Random Glucose Lactic Acid AST ALT Alkaline Phosphatase Troponin I Total Protein Albumin Lipase Urine Protein Urine Glucose (UA) Urine Blood 04/13/18 04/13/18 04/13/18 11:40 11:40 11:50 RBC Hct RDW Monocytes % PT with INR INR VBG pH Mixed VBG HCO3 BUN 21 H Random Glucose 390 H* Lactic Acid 3.6 H* AST 75 H ALT 76 H Alkaline Phosphatase 144 H Troponin I 0.23 H Total Protein 8.6 H Albumin 2.5 L Lipase 707 H Urine Protein 2+ H Urine Glucose (UA) 3+ H Urine Blood 2+ H ASSESSMENT AND PLAN: 1. Sepsis - Has elevated LFTs, lactic acidosis, increased lipase and troponin. Ct scan shows distended gall bladder and ?stomach. Gall bladder disease or wound infection are potential sources of infection. Grew Enterococcus Raffinosus and E.Coli from the ?abdominal wound last month. Will treat with IV Vancomycin and Zosyn pending culture report. Continue IV NS and trend lactic acid level. Consult ID. Elevated troponin may signal demand ischemia. No significant ST-T wave changes on EKG. Will trend troponin and rule out ACS on telemetry. Get ECHO. Continue meds for afib. 2. Hypoalbuminemia - Possibly due to combined effects of malnutrition and inflammation associated with comorbid chronic conditions. Will ensure adequate dietary protein intake and also consult dip stand loader. 3. DM - For now, we will hold the home diabetes drugs and implement sliding scale insulin regimen. Provide comprehensive diabetes care with patient teaching and counseling about the importance of euglycemia, eye care and foot care. 4. DVT prophylaxis - On Eliquis for Afib 5. Advance directives - Full code
[2018-04-13] MEDS ORDERED: PIPERACILLIN/TAZOB 3.375 GM 3.375 GM/50 ML BAG IVPB ONE (21:14)
[2018-04-13] MEDS: PIPERACILLIN/TAZOB 3.375 GM 3.375 GM in DEXTROSE 5%-WATER - 50 ML IVPB SCH (21:27)
[2018-04-13] MEDS ORDERED: LACTATED RINGERS SOLUTION 1,000 ML IV SCH (21:30)
--- NOTE | 2018-04-13 22:10 | HP ---
CHIEF COMPLAINT: Fever PCP: Guilherme HISTORY OF PRESENT ILLNESS: 78 y/o M with extensive PMHx, who was recently discharged from [facility] s/p Sigmoid Colectomy presents with Fever. During my interview, patient was Awake, nonverbal and only responsive to painful stimuli. I have called [facility] multiple times and have not been able to speak with anyone there. As per the EMR Notes, Patient was sent from [facility] for evaluation of a fever of 101.3. Patient was accompanied by his recent his lab paperwork which did not reveal any acute findings. Patients recent CXR suggested pneumonia. Patient has had multiple recent hospital admissions and is S/p Recent sigmoid colectomy with colostomy bag. 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, [employer] Family History: Denies Allergies No Known Allergies Allergy (Verified 04/13/18 11:31) HOME MEDICATIONS: Home Medications Medication Instructions Recorded Acetaminophen [Tylenol .Regular 650 mg PO Q4H PRN 02/28/18 Strength -] Albuterol 2.5/Ipratropium 0.5 1 neb IH QID 02/28/18 [Duoneb -] Ascorbic Acid [Vitamin C -] 500 mg PO DAILY 02/28/18 Atorvastatin Ca [Lipitor] 40 mg PO HS 02/28/18 Ergocalciferol [Vitamin D2] 50,000 unit PO WEEKLY 02/28/18 Insulin (LOG) Aspart [NovoLOG -] 0 units SQ BID 02/28/18 Nystatin 100,000 unit PO QID 02/28/18 Sennosides [Senna -] 2 tab PO HS 02/28/18 Sennosides/Docusate Sodium 1 each PO HS 02/28/18 [Senexon-S Tablet] Zinc Oxide 20% Topical Oint 454 gm NR BID 02/28/18 Methyl Salicylate/Menth/Camph 1 applic TP TID 03/01/18 [Bengay Ultra Strength Cream] Apixaban [Eliquis -] 5 mg PO BID #60 tablet 03/22/18 Insulin (Levemir) [Levemir Vial] 22 units SQ HS #30 units 03/22/18 Lisinopril [Prinivil] 40 mg PO DAILY #60 tablet 03/22/18 Metoprolol Tartrate [Lopressor -] 50 mg PO BID #60 tablet 03/22/18 Ranitidine [Zantac -] 150 mg PO BID #60 tablet 03/22/18 Amox-Tr/K Cl [Augmentin - 875Mg 1 tab PO BID 04/13/18 Tablet] Insulin Lispro [Humalog] 100 unit SQ 04/13/18 REVIEW OF SYSTEMS Unable to obtain PHYSICAL EXAMINATION Vital Signs - 24 hr 04/13/18 04/13/18 04/13/18 10:52 11:18 15:19 Temperature 104.0 F H 100.5 F H Pulse Rate 113 H 111 H Pulse Rate [ 115 H Right] Respiratory 18 20 Rate Blood Pressure 139/85 Blood Pressure 151/81 [Left Arm] O2 Sat by Pulse 100 100 100 Oximetry (%) 04/13/18 18:01 Temperature 99.7 F H Pulse Rate Pulse Rate [ 110 H Right] Respiratory 22 H Rate Blood Pressure Blood Pressure 155/91 [Left Arm] O2 Sat by Pulse 100 Oximetry (%) GENERAL: Awake, alert, Nonverbal only responsive to painful stimuli, in no acute distress. HEAD: NCAT EYES: PERRL EARS, NOSE, THROAT: Moist mucous membranes. NECK: No lymphadenopathy or JVD LUNGS: Breath sounds equal, clear to auscultation bilaterally. Transient upper airway noises, No wheezes, No Stridor HEART: Regular rate and rhythm, normal S1 and S2 without murmur ABDOMEN: Soft, nontender, not distended, + bowel sounds, no guarding, LLQ Colostomy bad placed, Midline surgical scar with 2x2 cm wound dishecence inferior to the umbilicus, Purulent residue BACK: 5x5cm wound over the right buttock lateral to the gluteal wound, with some purulent residue on diaper, without active drainage. Minimal surrounding erythema, Tender to palpation. MUSCULOSKELETAL: No CVA tenderness. EXTREMITIES: 2+ pulses, No peripheral edema. NEUROLOGICAL: Patient does not follow commands, unable to perform EOM testing, 4 /5 Muscle Strength in LUE and LLE, 0/5 in RUE and RLE, sensation grossly intact throughout SKIN: Warm, dry Laboratory Results - last 24 hr 04/13/18 04/13/18 04/13/18 11:40 11:40 11:40 WBC 9.7 RBC 3.80 L Hgb 11.9 Hct 33.8 L MCV 89.0 MCH 31.4 MCHC 35.3 RDW 16.1 H Plt Count 369 D MPV 9.4 Absolute Neuts (auto) 6.3 Neutrophils % 64.2 Lymphocytes % 24.4 D Monocytes % 10.7 H Eosinophils % 0.0 D Basophils % 0.7 Nucleated RBC % 0 PT with INR 20.00 H INR 1.69 H PTT (Actin FS) 33.2 VBG pH POC VBG pCO2 POC VBG pO2 Mixed VBG HCO3 Sodium Potassium Chloride Carbon Dioxide Anion Gap BUN Creatinine Creat Clearance w eGFR Random Glucose Lactic Acid Calcium Total Bilirubin AST ALT Alkaline Phosphatase Troponin I Total Protein Albumin Lipase Urine Color Urine Appearance Urine pH Ur [employer] Urine Protein Urine Glucose (UA) Urine Ketones Urine Blood Urine Nitrite Urine Bilirubin Urine Urobilinogen Ur Leukocyte Esterase Urine WBC (Auto) Urine RBC (Auto) Ur Epithelial Cells Urine Bacteria Influenza A (Rapid) Negative Influenza B (Rapid) Negative Blood Type Antibody Screen 04/13/18 04/13/18 04/13/18 11:40 11:40 11:40 WBC RBC Hgb Hct MCV MCH MCHC RDW Plt Count MPV Absolute Neuts (auto) Neutrophils % Lymphocytes % Monocytes % Eosinophils % Basophils % Nucleated RBC % PT with INR INR PTT (Actin FS) VBG pH 7.44 H POC VBG pCO2 45.0 POC VBG pO2 45.0 Mixed VBG HCO3 30.2 H Sodium 140 Potassium 4.0 Chloride 100 Carbon Dioxide 32 Anion Gap 8 BUN 21 H Creatinine 1.3 Creat Clearance w eGFR 53.67 Random Glucose 390 H* Lactic Acid Calcium 9.3 Total Bilirubin 0.8 AST 75 H ALT 76 H Alkaline Phosphatase 144 H Troponin I 0.23 H Cancelled Total Protein 8.6 H Albumin 2.5 L Lipase 707 H Urine Color Urine Appearance Urine pH Ur [employer] Urine Protein Urine Glucose (UA) Urine Ketones Urine Blood Urine Nitrite Urine Bilirubin Urine Urobilinogen Ur Leukocyte Esterase Urine WBC (Auto) Urine RBC (Auto) Ur Epithelial Cells Urine Bacteria Influenza A (Rapid) Influenza B (Rapid) Blood Type Antibody Screen 04/13/18 04/13/18 04/13/18 11:40 11:40 11:50 WBC RBC Hgb Hct MCV MCH MCHC RDW Plt Count MPV Absolute Neuts (auto) Neutrophils % Lymphocytes % Monocytes % Eosinophils % Basophils % Nucleated RBC % PT with INR INR PTT (Actin FS) VBG pH POC VBG pCO2 POC VBG pO2 Mixed VBG HCO3 Sodium Potassium Chloride Carbon Dioxide Anion Gap BUN Creatinine Creat Clearance w eGFR Random Glucose Lactic Acid 3.6 H* Calcium Total Bilirubin AST ALT Alkaline Phosphatase Troponin I Total Protein Albumin Lipase Urine Color Dkyellow Urine Appearance Clear Urine pH 5.0 Ur [employer] 1.032 Urine Protein 2+ H Urine Glucose (UA) 3+ H Urine Ketones Negative Urine Blood 2+ H Urine Nitrite Negative Urine Bilirubin Negative Urine Urobilinogen 2.0 Ur Leukocyte Esterase Negative Urine WBC (Auto) 0-3 Urine RBC (Auto) 5-10 Ur Epithelial Cells 1+ Urine Bacteria 1 Influenza A (Rapid) Influenza B (Rapid) Blood Type A POSITIVE Antibody Screen Negative 04/13/18 16:14 WBC RBC Hgb Hct MCV MCH MCHC RDW Plt Count MPV Absolute Neuts (auto) Neutrophils % Lymphocytes % Monocytes % Eosinophils % Basophils % Nucleated RBC % PT with INR INR PTT (Actin FS) VBG pH POC VBG pCO2 POC VBG pO2 Mixed VBG HCO3 Sodium Potassium Chloride Carbon Dioxide Anion Gap BUN Creatinine Creat Clearance w eGFR Random Glucose Lactic Acid 2.0 Calcium Total Bilirubin AST ALT Alkaline Phosphatase Troponin I Total Protein Albumin Lipase Urine Color Urine Appearance Urine pH Ur [employer] Urine Protein Urine Glucose (UA) Urine Ketones Urine Blood Urine Nitrite Urine Bilirubin Urine Urobilinogen Ur Leukocyte Esterase Urine WBC (Auto) Urine RBC (Auto) Ur Epithelial Cells Urine Bacteria Influenza A (Rapid) Influenza B (Rapid) Blood Type Antibody Screen ASSESSMENT/PLAN: 78 y/o M with extensive PMHx, who was recently discharged from [facility] s/p Sigmoid Colectomy presents with Fever. #Sepsis -Fever 104.0, Hr 115 -Lactic acid 3.6-->2.0 -CT A/P, CXR, GB US noted -Blood, Urine and wound cx's pending; Previous Abdominal wound culture grew Enterococcus Raffinosus and E.Coli -Continue on Vanco 1500mg, Zosyn 3.75 -ID (Dr. Peters) consulted -General Surgery (Dr. Sharif) consulted for Abdominal wound and possible GB pathology -LR @ 75 mls/hr -NPO Pending surgical repair -Santyl to apply to posterior wound #Elevated Troponin -Possibly due to demand -Trend Trops, Repeat EKG #Uncontrolled DM -ISS BGMs ACHS #FEN -LR @ 75 mls/hr -Lytes WNL -NPO #PPx -DVT: Elliquis Dispo: Admit to med-surg, Will need Med-Rec Visit type - Emergency Visit Emergency Visit: Yes ED Registration Date: 04/13/18 Care time: The patient presented to the Emergency Department on the above date and was hospitalized for further evaluation of their emergent condition. - New Patient This patient is new to me today: Yes Date on this admission: 04/14/18 - Critical Care Critical Care patient: No
[2018-04-13] MEDS ORDERED: INSULIN (NOVOLOG) ASPART 100 UNITS/ML 10ML VIAL ONE (23:38)
[2018-04-13] MEDS: INSULIN SLIDING SCALE (NOVOLOG) 1 VIAL SQ SCH (23:48)
[2018-04-14] MEDS ORDERED: PIPERACILLIN/TAZOB 3.375 GM 3.375 GM/50 ML BAG IVPB ONE ×2 (02:52→10:27)
[2018-04-14] MEDS: PIPERACILLIN/TAZOB 3.375 GM 3.375 GM in DEXTROSE 5%-WATER - 50 ML IVPB SCH ×2 (02:57→10:20)
[2018-04-14] MEDS ORDERED: INSULIN (NOVOLOG) ASPART 100 UNITS/ML 10ML VIAL ONE ×2 (07:20→14:08)
[2018-04-14] MEDS: INSULIN SLIDING SCALE (NOVOLOG) 1 VIAL SQ SCH ×4 (07:31→23:30)
[2018-04-14 08:00] LABS: ALBUMIN 2.3 g/dl (3.4-5.0); ALK PHOS 110 U/L (45-117); ANION GAP 10 MMOL/L (8-16); BILIRUBIN,TOTAL 0.9 mg/dL (0.2-1); BLOOD UREA NITROGEN 13 mg/dL (7-18); CHLORIDE 105 mmol/L (98-107); CO2 27 mmol/L (21-32); CREATININE 0.7 mg/dL (0.55-1.3); GLUCOSE,RANDOM 267 mg/dL (74-106); PHOSPHOROUS 2.7 mg/dL (2.5-4.9); POTASSIUM 3.4 mmol/L (3.5-5.1); SGOT/AST 44 U/L (15-37); SGPT/ALT 57 U/L (13-61); SODIUM 141 mmol/L (136-145); TOT PROT 7.7 g/dl (6.4-8.2)
[2018-04-14 09:35] LABS: BASO % 0.7 % (0-2.0); EOS % 0.4 % (0-4.5); HEMATOCRIT 34.5 % (35.4-49); LYMPH % 21.1 % (8-40); MCH 29.1 pg (25.7-33.7); MCHC 31.9 g/dl (32.0-35.9); MEAN CELL VOLUME 91.1 fl (80-96); MEAN PLT VOLUME 9.6 fl (7.5-11.1); MONO % 7.1 % (3.8-10.2); NEUT % 70.7 % (42.8-82.8); PLATELET COUNT 293 K/MM3 (134-434); RBC 3.79 M/mm3 (4.00-5.60); RDW 16.2 % (11.9-15.9)
[2018-04-14] MEDS ORDERED: VANCOMYCIN 1,500 MG in DEXTROSE 5%-WATER - 500 ML IVPB ONE (10:00)
[2018-04-14] MEDS: COLLAGENASE CLOSTRIDIUM HIST. 30 GRAMS TUBE TP SCH (10:18)
[2018-04-14 10:29] LABS: WHITE BLOOD COUNT 12.1 K/mm3 (4.0-10.0)
--- NOTE | 2018-04-14 10:54 | PN ---
Progress Note (short form) - Note Progress Note: Pt lethargic but arousable events noted Vital Signs - 24 hr 04/13/18 04/13/18 04/13/18 11:18 15:19 18:01 Temperature 100.5 F H 99.7 F H Pulse Rate 111 H Pulse Rate [ 115 H 110 H Right] Respiratory 20 22 H Rate Blood Pressure 151/81 155/91 [Left Arm] O2 Sat by Pulse 100 100 100 Oximetry (%) 04/13/18 04/13/18 04/14/18 22:50 23:29 00:00 Temperature 99.0 F 100.9 F H 100.8 F H Pulse Rate Pulse Rate [ 110 H 110 H 128 H Right] Respiratory 20 29 H Rate Blood Pressure 155/85 152/87 152/85 [Left Arm] O2 Sat by Pulse 98 98 95 Oximetry (%) 04/14/18 04/14/18 03:00 06:50 Temperature 98.0 F 99.3 F Pulse Rate Pulse Rate [ 62 60 Right] Respiratory 20 25 H Rate Blood Pressure 162/104 H 182/88 H [Left Arm] O2 Sat by Pulse 99 96 Oximetry (%) Current Medications Generic Name Dose Route Start Last Admin Trade Name Freq PRN Reason Stop Dose Admin Collagenase 1 applic 04/14/18 10:00 04/14/18 10:18 Santyl - TP Not Given DAILY FLORIN Protocol Lactated Ringer's 1,000 mls @ 75 mls/hr 04/13/18 21:30 04/13/18 22:50 Lactated Ringers Solution IV 75 mls/hr ASDIR FLORIN Administration Vancomycin HCl 1,500 mg/ 500 mls @ 250 mls/hr 04/14/18 10:00 Dextrose IVPB 04/14/18 11:59 ONCE ONE Protocol Insulin Aspart 1 vial 04/13/18 22:00 04/14/18 07:31 Novolog Vial Sliding Scale - SQ 6 units ACHS FLORIN Administration Protocol Laboratory Results - last 24 hr 04/13/18 04/13/18 04/13/18 11:40 11:40 11:40 WBC 9.7 RBC 3.80 L Hgb 11.9 Hct 33.8 L MCV 89.0 MCH 31.4 MCHC 35.3 RDW 16.1 H Plt Count 369 D MPV 9.4 Absolute Neuts (auto) 6.3 Neutrophils % 64.2 Lymphocytes % 24.4 D Monocytes % 10.7 H Eosinophils % 0.0 D Basophils % 0.7 Nucleated RBC % 0 PT with INR 20.00 H INR 1.69 H PTT (Actin FS) 33.2 VBG pH POC VBG pCO2 POC VBG pO2 Mixed VBG HCO3 Sodium Potassium Chloride Carbon Dioxide Anion Gap BUN Creatinine Creat Clearance w eGFR POC Glucometer Random Glucose Lactic Acid Calcium Phosphorus Magnesium Total Bilirubin AST ALT Alkaline Phosphatase Troponin I Total Protein Albumin Lipase Urine Color Urine Appearance Urine pH Ur Specific [place] Urine Protein Urine Glucose (UA) Urine Ketones Urine Blood Urine Nitrite Urine Bilirubin Urine Urobilinogen Ur Leukocyte Esterase Urine WBC (Auto) Urine RBC (Auto) Ur Epithelial Cells Urine Bacteria Influenza A (Rapid) Negative Influenza B (Rapid) Negative Blood Type Antibody Screen 04/13/18 04/13/18 04/13/18 11:40 11:40 11:40 WBC RBC Hgb Hct MCV MCH MCHC RDW Plt Count MPV Absolute Neuts (auto) Neutrophils % Lymphocytes % Monocytes % Eosinophils % Basophils % Nucleated RBC % PT with INR INR PTT (Actin FS) VBG pH 7.44 H POC VBG pCO2 45.0 POC VBG pO2 45.0 Mixed VBG HCO3 30.2 H Sodium 140 Potassium 4.0 Chloride 100 Carbon Dioxide 32 Anion Gap 8 BUN 21 H Creatinine 1.3 Creat Clearance w eGFR 53.67 POC Glucometer Random Glucose 390 H* Lactic Acid Calcium 9.3 Phosphorus Magnesium Total Bilirubin 0.8 AST 75 H ALT 76 H Alkaline Phosphatase 144 H Troponin I 0.23 H Cancelled Total Protein 8.6 H Albumin 2.5 L Lipase 707 H Urine Color Urine Appearance Urine pH Ur Specific [place] Urine Protein Urine Glucose (UA) Urine Ketones Urine Blood Urine Nitrite Urine Bilirubin Urine Urobilinogen Ur Leukocyte Esterase Urine WBC (Auto) Urine RBC (Auto) Ur Epithelial Cells Urine Bacteria Influenza A (Rapid) Influenza B (Rapid) Blood Type Antibody Screen 04/13/18 04/13/18 04/13/18 11:40 11:40 11:50 WBC RBC Hgb Hct MCV MCH MCHC RDW Plt Count MPV Absolute Neuts (auto) Neutrophils % Lymphocytes % Monocytes % Eosinophils % Basophils % Nucleated RBC % PT with INR INR PTT (Actin FS) VBG pH POC VBG pCO2 POC VBG pO2 Mixed VBG HCO3 Sodium Potassium Chloride Carbon Dioxide Anion Gap BUN Creatinine Creat Clearance w eGFR POC Glucometer Random Glucose Lactic Acid 3.6 H* Calcium Phosphorus Magnesium Total Bilirubin AST ALT Alkaline Phosphatase Troponin I Total Protein Albumin Lipase Urine Color Dkyellow Urine Appearance Clear Urine pH 5.0 Ur Specific [place] 1.032 Urine Protein 2+ H Urine Glucose (UA) 3+ H Urine Ketones Negative Urine Blood 2+ H Urine Nitrite Negative Urine Bilirubin Negative Urine Urobilinogen 2.0 Ur Leukocyte Esterase Negative Urine WBC (Auto) 0-3 Urine RBC (Auto) 5-10 Ur Epithelial Cells 1+ Urine Bacteria 1 Influenza A (Rapid) Influenza B (Rapid) Blood Type A POSITIVE Antibody Screen Negative 04/13/18 04/13/18 04/13/18 16:14 21:53 23:09 WBC RBC Hgb Hct MCV MCH MCHC RDW Plt Count MPV Absolute Neuts (auto) Neutrophils % Lymphocytes % Monocytes % Eosinophils % Basophils % Nucleated RBC % PT with INR INR PTT (Actin FS) VBG pH POC VBG pCO2 POC VBG pO2 Mixed VBG HCO3 Sodium Potassium Chloride Carbon Dioxide Anion Gap BUN Creatinine Creat Clearance w eGFR POC Glucometer [phone] Random Glucose Lactic Acid 2.0 Calcium Phosphorus Magnesium Total Bilirubin AST ALT Alkaline Phosphatase Troponin I 0.09 H Total Protein Albumin Lipase Urine Color Urine Appearance Urine pH Ur Specific [place] Urine Protein Urine Glucose (UA) Urine Ketones Urine Blood Urine Nitrite Urine Bilirubin Urine Urobilinogen Ur Leukocyte Esterase Urine WBC (Auto) Urine RBC (Auto) Ur Epithelial Cells Urine Bacteria Influenza A (Rapid) Influenza B (Rapid) Blood Type Antibody Screen 04/14/18 04/14/18 04/14/18 06:00 06:02 07:00 WBC 12.1 H RBC 3.79 L Hgb 11.0 L Hct 34.5 L MCV 91.1 MCH 29.1 MCHC 31.9 L RDW 16.2 H Plt Count 293 D MPV 9.6 Absolute Neuts (auto) 8.5 H Neutrophils % 70.7 Lymphocytes % 21.1 Monocytes % 7.1 Eosinophils % 0.4 D Basophils % 0.7 Nucleated RBC % 0 PT with INR INR PTT (Actin FS) VBG pH POC VBG pCO2 POC VBG pO2 Mixed VBG HCO3 Sodium 141 Potassium 3.4 L Chloride 105 Carbon Dioxide 27 Anion Gap 10 BUN 13 Creatinine 0.7 Creat Clearance w eGFR > 60 POC Glucometer [phone] Random Glucose 267 H Lactic Acid Calcium 9.0 Phosphorus 2.7 Magnesium 2.0 Total Bilirubin 0.9 AST 44 H ALT 57 Alkaline Phosphatase 110 Troponin I Total Protein 7.7 Albumin 2.3 L Lipase Urine Color Urine Appearance Urine pH Ur Specific [place] Urine Protein Urine Glucose (UA) Urine Ketones Urine Blood Urine Nitrite Urine Bilirubin Urine Urobilinogen Ur Leukocyte Esterase Urine WBC (Auto) Urine RBC (Auto) Ur Epithelial Cells Urine Bacteria Influenza A (Rapid) Influenza B (Rapid) Blood Type Antibody Screen S1 S2 Irregular Lungs decreased breath sounds Abd- surgical wound noted, lower part is dehiscent and purulent discharge, gallbladder drained-- purulent fluid, left colostomy functioning No edema stage 2 sacrum , no yellowish discharge PLAN pt evaluated along with ID iv antibiotics cultures sent keep NPO iv fluids Surgical eval CT abd noted prognosis guarded Problem List - Problems (1) Biliary sepsis Code(s): K83.09 - OTHER CHOLANGITIS (2) Sepsis Code(s): A41.9 - SEPSIS, UNSPECIFIED ORGANISM (3) Severe sepsis Code(s): A41.9 - SEPSIS, UNSPECIFIED ORGANISM; R65.20 - SEVERE SEPSIS WITHOUT SEPTIC SHOCK (4) Abdominal pain Code(s): R10.9 - UNSPECIFIED ABDOMINAL PAIN
--- NOTE | 2018-04-14 11:28 | EKG ---
Test Reason : Blood Pressure : / mmHG Vent. Rate : 109 BPM Atrial Rate : 096 BPM P-R Int : 150 ms QRS Dur : 086 ms QT Int : 298 ms P-R-T Axes : 063 -16 -04 degrees QTc Int : 401 ms NORMAL SINUS RHYTHM WITH MARKED SINUS ARRHYTHMIA vpcs apcs NONSPECIFIC T WAVE ABNORMALITY ABNORMAL ECG Confirmed by WILTON BAUTISTA MD ([id number]) on 04/14/2018 11:28:24 AM Referred By: Confirmed By:WILTON BAUTISTA MD
--- NOTE | 2018-04-14 15:22 | CON.ID ---
Consult Consult Specialty:: infectious disease Referred by:: dr noriega Reason for Consultation:: fever - History of Present Illness Chief Complaint: fever History of Present Illness: 78 yo male admitted from [place] with fever. 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 seen on prior imaging) Endocrine: Yes: Diabetes Mellitus Additional Medical History: history of dysphagia - Past Surgical History Past Surgical History: Yes: Colectomy - Alcohol/Substance Use Hx Alcohol Use: No - Smoking History Smoking history: Never smoked Have you smoked in the past 12 months: No Aproximately how many cigarettes per day: 0 If you are a former smoker, when did you quit?: 6 years ago - Social History Usual Living Arrangement: Senior Care ADL: Support Services History of Recent Travel: No Home Medications - Allergies Allergies/Adverse Reactions: Allergies Allergy/AdvReac Type Severity Reaction Status Date / Time No Known Allergies Allergy Verified 04/13/18 11:31 - Home Medications Home Medications: Ambulatory Orders Acetaminophen [Tylenol .Regular Strength -] 650 mg PO Q4H PRN 02/28/18 Albuterol 2.5/Ipratropium 0.5 [Duoneb -] 1 neb IH QID 02/28/18 Ascorbic Acid [Vitamin C -] 500 mg PO DAILY 02/28/18 Atorvastatin Ca [Lipitor] 40 mg PO HS 02/28/18 Ergocalciferol [Vitamin D2] 50,000 unit PO WEEKLY 02/28/18 Insulin (LOG) Aspart [NovoLOG -] 0 units SQ BID 02/28/18 Nystatin 100,000 unit PO QID 02/28/18 Sennosides [Senna -] 2 tab PO HS 02/28/18 Sennosides/Docusate Sodium [Senexon-S Tablet] 1 each PO HS 02/28/18 Zinc Oxide 20% Topical Oint 454 gm NR BID 02/28/18 Methyl Salicylate/Menth/Camph [Bengay Ultra Strength Cream] 1 applic TP TID 11/09 Apixaban [Eliquis -] 5 mg PO BID #60 tablet 03/22/18 Insulin (Levemir) [Levemir Vial] 22 units SQ HS #30 units 03/22/18 Lisinopril [Prinivil] 40 mg PO DAILY #60 tablet 03/22/18 Metoprolol Tartrate [Lopressor -] 50 mg PO BID #60 tablet 03/22/18 Ranitidine [Zantac -] 150 mg PO BID #60 tablet 03/22/18 Amox-Tr/K Cl [Augmentin - 875Mg Tablet] 1 tab PO BID 04/13/18 Insulin Lispro [Humalog] 100 unit SQ 04/13/18 Family Disease History - Family Disease History Family History: Unable to Obtain Review of Systems Unable to obtain ROS, reason: unable to obtain Physical Exam Vital Signs: Vital Signs Temperature 99.3 F 04/14/18 06:50 Pulse Rate 108 H 04/14/18 14:02 Respiratory Rate 26 H 04/14/18 14:02 Blood Pressure 154/70 04/14/18 14:02 O2 Sat by Pulse Oximetry (%) 95 04/14/18 14:02 Constitutional: Yes: Mild Distress Eyes: Yes: Conjunctiva Clear HENT: Yes: Atraumatic, Normocephalic Neck: Yes: Supple Cardiovascular: Yes: Regular Rate and Rhythm Respiratory: Yes: Rhonchi Gastrointestinal: Yes: Normal Bowel Sounds, Soft, Other (incision with purulent drainage biliary drain with pus) ...Rectal Exam: Yes: Deferred Extremities: Yes: WNL Edema: Yes Edema: LLE: Trace, RLE: Trace Labs: CBC, BMP 04/14/18 06:00 04/14/18 06:02 Microbiology 04/14/18 11:45 Cholecystectomy Fluid SAMUEL Preparation - Preliminary 04/14/18 11:45 Cholecystectomy Fluid Fungal Culture - Preliminary 04/13/18 11:40 Blood - Peripheral Venous Blood Culture - Preliminary NO GROWTH OBTAINED AFTER 24 HOURS, INCUBATION TO CONTINUE FOR 4 DAYS. 04/13/18 11:40 Blood - Peripheral Venous Blood Culture - Preliminary NO GROWTH OBTAINED AFTER 24 HOURS, INCUBATION TO CONTINUE FOR 4 DAYS. 04/13/18 11:40 Abdomen Gram Stain - Final 04/13/18 11:40 Abdomen Wound Culture - Preliminary Lactose Fermenting Neg Bacilli Pending Organism Pending Organism#2 04/13/18 11:50 Urine - Urine - Catheterized Urine Culture - Final NO GROWTH OBTAINED Imaging - Results Chest X-ray: Report Reviewed, Image Reviewed Cat Scan: Report Reviewed, Image Reviewed Problem List - Problems (1) Sepsis Code(s): A41.9 - SEPSIS, UNSPECIFIED ORGANISM (2) Biliary sepsis Code(s): K83.09 - OTHER CHOLANGITIS (3) Wound infection after surgery Code(s): T81.49XA - INFECTION FOLLOWING A PROCEDURE, OTHER SURGICAL SITE, INIT (4) History of open sigmoidectomy Code(s): Z98.890 - OTHER SPECIFIED POSTPROCEDURAL STATES; Z90.49 - ACQUIRED ABSENCE OF OTHER SPECIFIED PARTS OF DIGESTIVE TRACT Assessment/Plan biliary sepsis- s/p gallbladder percutneous tube with purulent drainage wound infection - purulence at incision site cxray unchanged cultures sent gallbladder drained prior ecoli with zosyn resistance start vanco/cefepime/flagyl d/w PMD overall prognosis guarded
--- NOTE | 2018-04-14 17:22 | CONSULT ---
Consult Consult Specialty:: general surgery Reason for Consultation:: wound and intra abdominal collection - History of Present Illness Chief Complaint: less responsive History of Present Illness: 78 yo male PMH HTN, HLD, CHF, COPD, CVA, DM, chronically malnourished, sigmoid volvulus, aspiration pneumonia, who was recently discharged from [facility] s/p Sigmoid Colectomy presents with Fever. During my interview, patient was Awake, nonverbal and only responsive to painful stimuli. I have called [facility] multiple times and have not been able to speak with anyone there. As per the EMR Notes, Patient was sent from [facility] for evaluation of a fever of 101.3. Patient was accompanied by his recent his lab paperwork which did not reveal any acute findings. Patients recent CXR suggested pneumonia. Patient has had multiple recent hospital admissions and is S/p Recent sigmoid colectomy and end colostomy for recurent volvulus. karon removed this past tuesday in clinic. CT scan shows large biloma adjacent to gallladder 14cm? Gallbladder distension. were were asked to reassess. 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 seen on prior imaging) Endocrine: Yes: Diabetes Mellitus Additional Medical History: history of dysphagia - Past Surgical History Past Surgical History: Yes: Colectomy - Alcohol/Substance Use Hx Alcohol Use: No - Smoking History Smoking history: Never smoked Have you smoked in the past 12 months: No Aproximately how many cigarettes per day: 0 If you are a former smoker, when did you quit?: 6 years ago - Social History Usual Living Arrangement: [facility] ADL: Support Services History of Recent Travel: No Home Medications - Allergies Allergies/Adverse Reactions: Allergies Allergy/AdvReac Type Severity Reaction Status Date / Time No Known Allergies Allergy Verified 04/13/18 11:31 - Home Medications Home Medications: Ambulatory Orders Acetaminophen [Tylenol .Regular Strength -] 650 mg PO Q4H PRN 02/28/18 Albuterol 2.5/Ipratropium 0.5 [Duoneb -] 1 neb IH QID 02/28/18 Ascorbic Acid [Vitamin C -] 500 mg PO DAILY 02/28/18 Atorvastatin Ca [Lipitor] 40 mg PO HS 02/28/18 Ergocalciferol [Vitamin D2] 50,000 unit PO WEEKLY 02/28/18 Insulin (LOG) Aspart [NovoLOG -] 0 units SQ BID 02/28/18 Nystatin 100,000 unit PO QID 02/28/18 Sennosides [Senna -] 2 tab PO HS 02/28/18 Sennosides/Docusate Sodium [Senexon-S Tablet] 1 each PO HS 02/28/18 Zinc Oxide 20% Topical Oint 454 gm NR BID 02/28/18 Methyl Salicylate/Menth/Camph [Bengay Ultra Strength Cream] 1 applic TP TID 11/09 Apixaban [Eliquis -] 5 mg PO BID #60 tablet 03/22/18 Insulin (Levemir) [Levemir Vial] 22 units SQ HS #30 units 03/22/18 Lisinopril [Prinivil] 40 mg PO DAILY #60 tablet 03/22/18 Metoprolol Tartrate [Lopressor -] 50 mg PO BID #60 tablet 03/22/18 Ranitidine [Zantac -] 150 mg PO BID #60 tablet 03/22/18 Amox-Tr/K Cl [Augmentin - 875Mg Tablet] 1 tab PO BID 04/13/18 Insulin Lispro [Humalog] 100 unit SQ 04/13/18 Review of Systems - Review of Systems Constitutional: reports: Fever, Unintentional Wgt. Loss. denies: Chills Eyes: denies: Blind Spots, Recent Change in Vision HENT: denies: Difficult Swallowing, Throat Pain Neck: denies: Decreased ROM Cardiovascular: denies: Chest Pain Respiratory: denies: Cough, SOB Gastrointestinal: reports: Abdominal Pain. denies: Constipation, Diarrhea Genitourinary: reports: Testicular Swelling. denies: Discharge, Dysuria, Pain Breasts: reports: No Symptoms Reported. denies: Pain Musculoskeletal: denies: Extremity Pain, Muscle Weakness Integumentary: denies: Blister, Eczema, Erythema Neurological: denies: Seizure, Syncope Endocrine: denies: Unexplained Weight Gain, Unexplained Weight Loss Hematology/Lymphatic: denies: Easily Bruised, Excessive Bleeding Psychiatric: denies: Anxiety, Depression Physical Exam Vital Signs: Vital Signs Temperature 99.3 F 04/14/18 06:50 Pulse Rate 108 H 04/14/18 14:02 Respiratory Rate 26 H 04/14/18 14:02 Blood Pressure 154/70 04/14/18 14:02 O2 Sat by Pulse Oximetry (%) 95 04/14/18 14:02 Constitutional: Yes: No Distress, Calm, Poor Hygeine. No: Well Nourished Eyes: Yes: Conjunctiva Clear, EOM Intact HENT: Yes: Atraumatic, Normocephalic Neck: Yes: Supple, Trachea Midline Cardiovascular: Yes: Regular Rate and Rhythm, S1, S2 Respiratory: Yes: Regular, CTA Bilaterally, Diminished, Rales Gastrointestinal: Yes: Normal Bowel Sounds, Soft. No: Tenderness ...Rectal Exam: Yes: Deferred Renal/: No: CVA Tenderness - Left, CVA Tenderness - Right Musculoskeletal: No: Muscle Pain, Muscle Weakness Extremities: No: Cool, Cyanosis Edema: No Peripheral Pulses WNL: Yes Wound/Incision: Yes: Clean/Dry, Dressing Dry and Intact, Unapproximated ( periumbilical and lower midline). No: Karon Intact Neurological: Yes: Alert, Confusion. No: Oriented Psychiatric: Yes: Alert. No: Oriented Labs: CBC, BMP 04/14/18 06:00 04/14/18 06:02 Imaging - Results Cat Scan: Report Reviewed, Image Reviewed Ultrasound: Report Reviewed, Image Reviewed Problem List - Problems (1) Wound infection after surgery Assessment/Plan: 78yo male with post op wound infection and a biloma? - unfortunately this was a well anticpated consequence of his many risk factors and low healing potential given his chronically malnourished condition (Preoperatively his prealblumin was <10). This possibility was discussed with his and daughter who were aware of the risk and desired to proceed anyway given his recurrent vovulus. No further acute surgical intervention is indicated at this time Supportive medical care Local wound care by nurse - orders entered IR for drainge of biloma Will follow peripherally recall as needed Thank you for the opportunity to participate in the care of this patient. Code(s): T81.49XA - INFECTION FOLLOWING A PROCEDURE, OTHER SURGICAL SITE, INIT (2) Biliary sepsis Code(s): K83.09 - OTHER CHOLANGITIS (3) Severe sepsis Code(s): A41.9 - SEPSIS, UNSPECIFIED ORGANISM; R65.20 - SEVERE SEPSIS WITHOUT SEPTIC SHOCK (4) Diabetes Code(s): E11.9 - TYPE 2 DIABETES MELLITUS WITHOUT COMPLICATIONS (5) H/O: CVA (cerebrovascular accident) Code(s): Z86.73 - PRSNL HX OF TIA (TIA), AND CEREB INFRC W/O RESID DEFICITS (6) Volvulus of sigmoid colon Code(s): K56.2 - VOLVULUS
[2018-04-14] MEDS: CEFEPIME 2 GM in DEXTROSE 5%-WATER 100 ML IVPB SCH (17:40)
[2018-04-14] MEDS ORDERED: INSULIN REGULAR HUMAN 100 UNITS/ML *VIAL ONE (17:54)
--- NOTE | 2018-04-14 21:42 | HOSP ---
Subjective - Review of Symptoms Events since last encounter: Hospitalist Encounter Notified by the RN via microblog that the patient was received with crackles bilaterally tonight. Was asked to assess patient. Subjective: Arrived to bedside, patient is lethargic- baseline. Upon auscultation, fine crackles appreciated bilaterally throughout lobes. Patient is on a Venturi Mask. PE performed see EMR Assessment: 78 y/o man PMHx of: CVA (R- hemiparesis), CHF, HTN, HLD, COPD, DM, Dysphagia. Admitted for Sepsis, Biliary Sepsis. s/p percutaneous cholecystostomy tube Plan: Stat portable chest xray r/o HF Decrease IVF from 75ml to 42ml Physical Examination Vital Signs: Vital Signs Temperature 98.0 F 04/14/18 17:56 Pulse Rate 103 H 04/14/18 17:56 Respiratory Rate 20 04/14/18 17:56 Blood Pressure 156/81 04/14/18 17:56 O2 Sat by Pulse Oximetry (%) 98 04/14/18 17:56 Constitutional: Yes: No Distress, Calm Eyes: Yes: Conjunctiva Clear HENT: Yes: WNL, Atraumatic, Normocephalic Neck: Yes: WNL, Supple, Trachea Midline Cardiovascular: Yes: Regular Rate and Rhythm, S1, S2 Respiratory: Yes: On Venti-Mask, Rhonchi (throughout) Gastrointestinal: Yes: Other (colostomy percutaneous cholecystostomy tube with brown thick drainage in bulb) Renal/: Yes: Incontinence Edema: Yes Edema: LLE: Trace, RLE: Trace Peripheral Pulses WNL: Yes Neurological: Yes: Lethargy Labs: CBC, BMP 04/14/18 06:00 04/14/18 06:02 Laboratory Results - last 24 hr 04/13/18 04/13/18 04/14/18 21:53 23:09 06:00 WBC 12.1 H RBC 3.79 L Hgb 11.0 L Hct 34.5 L MCV 91.1 MCH 29.1 MCHC 31.9 L RDW 16.2 H Plt Count 293 D MPV 9.6 Absolute Neuts (auto) 8.5 H Neutrophils % 70.7 Lymphocytes % 21.1 Monocytes % 7.1 Eosinophils % 0.4 D Basophils % 0.7 Nucleated RBC % 0 Sodium Potassium Chloride Carbon Dioxide Anion Gap BUN Creatinine Creat Clearance w eGFR POC Glucometer [phone] Random Glucose Calcium Phosphorus Magnesium Total Bilirubin AST ALT Alkaline Phosphatase Troponin I 0.09 H Total Protein Albumin 04/14/18 04/14/18 04/14/18 06:02 07:00 13:52 WBC RBC Hgb Hct MCV MCH MCHC RDW Plt Count MPV Absolute Neuts (auto) Neutrophils % Lymphocytes % Monocytes % Eosinophils % Basophils % Nucleated RBC % Sodium 141 Potassium 3.4 L Chloride 105 Carbon Dioxide 27 Anion Gap 10 BUN 13 Creatinine 0.7 Creat Clearance w eGFR > 60 POC Glucometer [phone] Random Glucose 267 H Calcium 9.0 Phosphorus 2.7 Magnesium 2.0 Total Bilirubin 0.9 AST 44 H ALT 57 Alkaline Phosphatase 110 Troponin I Total Protein 7.7 Albumin 2.3 L 04/14/18 17:53 WBC RBC Hgb Hct MCV MCH MCHC RDW Plt Count MPV Absolute Neuts (auto) Neutrophils % Lymphocytes % Monocytes % Eosinophils % Basophils % Nucleated RBC % Sodium Potassium Chloride Carbon Dioxide Anion Gap BUN Creatinine Creat Clearance w eGFR POC Glucometer [phone] Random Glucose Calcium Phosphorus Magnesium Total Bilirubin AST ALT Alkaline Phosphatase Troponin I Total Protein Albumin Microbiology 04/13/18 11:40 Blood Culture - Preliminary Blood - Peripheral Venous Pending Organism 04/14/18 11:45 Gram Stain - Final Cholecystectomy Fluid 04/14/18 11:45 SAMUEL Preparation - Preliminary Cholecystectomy Fluid Fungal Culture - Preliminary 04/13/18 11:40 Blood Culture - Preliminary Blood - Peripheral Venous NO GROWTH OBTAINED AFTER 24 HOURS, INCUBATION TO CONTINUE FOR 4 DAYS. 04/13/18 11:40 Gram Stain - Final Abdomen Wound Culture - Preliminary Lactose Fermenting Neg Bacilli Pending Organism Pending Organism#2 04/13/18 11:50 Urine Culture - Final Urine - Urine - Catheterized NO GROWTH OBTAINED Current Medications Generic Name Dose Route Start Last Admin Trade Name Freq PRN Reason Stop Dose Admin Collagenase 1 applic 04/14/18 10:00 04/14/18 10:18 Santyl - TP Not Given DAILY FLORIN Protocol Cefepime HCl 2 gm/ Dextrose 100 mls @ 200 mls/hr 04/14/18 15:45 04/14/18 17: 40 IVPB 200 mls/hr Q8H-IV FLORIN Administration Protocol Metronidazole 500 mg in 100 mls @ 100 mls/hr 04/14/18 15:45 04/14/18 17:01 Flagyl 500mg Premixed Ivpb - IVPB 100 mls/hr Q8H-IV FLORIN Administration Vancomycin HCl 1,250 mg/ 250 mls @ 166.667 mls/hr 04/15/18 02:00 Dextrose IVPB Q12H REPLACED BY [facility] Protocol Lactated Ringer's 1,000 mls @ 42 mls/hr 04/14/18 21:31 Lactated Ringers Solution IV ASDIR FLORIN Insulin Aspart 1 vial 04/13/18 22:00 04/14/18 17:53 Novolog Vial Sliding Scale - SQ 4 units ACHS FLORIN Administration Protocol Hospitalist Encounter Assessment: Chest Xray image reviewed, no change compared to prior xray, awaiting official report. RN reports that patient is more responsive, with improved respiratory status. Last Vital Signs 3 Temp Pulse Resp BP Pulse Ox 99.4 F 88 18 131/69 98 04/15/18 02:47 04/15/18 02:47 04/15/18 02:47 04/15/18 02:47 04/14/18 21:00
[2018-04-14] MEDS ORDERED: PT OWN MED DRAWER 7, Y5N ONE (21:43)
[2018-04-14] MEDS: LACTATED RINGERS SOLUTION 1,000 ML IV SCH (23:31)
[2018-04-14] MEDS ORDERED: VANCOMYCIN 1,250 MG in DEXTROSE 5%-WATER - 250 ML IVPB SCH (23:45)
[2018-04-15] MEDS ORDERED: CEFEPIME HCL 2 GM VIAL (RESTRICTED TO ID) ONE ×3 (01:21→17:07)
[2018-04-15] MEDS ORDERED: DEXTROSE 5%-WATER 100 ML IVPB ONE ×5 (01:21→17:07)
[2018-04-15] MEDS: CEFEPIME 2 GM in DEXTROSE 5%-WATER 100 ML IVPB SCH ×4 (02:09→17:10)
[2018-04-15] MEDS: VANCOMYCIN 1,250 MG in DEXTROSE 5%-WATER - 250 ML IVPB SCH ×2 (02:10→15:13)
[2018-04-15] MEDS: INSULIN SLIDING SCALE (NOVOLOG) 1 VIAL SQ SCH ×4 (06:23→21:33)
[2018-04-15] MEDS ORDERED: PT OWN MED DRAWER 7, Y5N ONE (06:44)
--- NOTE | 2018-04-15 12:05 | PN ---
Progress Note (short form) - Note Progress Note: pt seen/ examined chart reviewed family at bedside. weak/ lethargic but arousable. on vm 50 denies pain Vital Signs Temp 98 F 04/15/18 09:00 Pulse 91 H 04/15/18 09:00 Resp 18 04/15/18 09:00 BP 155/90 04/15/18 09:00 Pulse Ox 99 04/15/18 09:00 Intake & Output 04/14/18 04/15/18 04/15/18 23:59 11:59 23:59 Intake Total 618 786 Output Total 250 50 Balance 368 736 Intake: IV 568 336 Lactated Ringers Solution 168 336 1,000 ml @ 42 mls/hr IV ASDIR FLORIN Rx#:[id number] Lactated Ringers Solution 400 1,000 ml @ 75 mls/hr IV ASDIR FLORIN Rx#:[id number] IVPB 50 450 Output: Gastric Drainage 250 Urine 50 Left Nephrostomy 50 Other: Voiding Method Incontinent Incontinent Active Medications Collagenase (Santyl -) 1 applic TP DAILY [facility]; Protocol Last Admin: 04/14/18 10:18 Dose: Not Given Cefepime HCl 2 gm/ Dextrose 100 mls @ 200 mls/hr IVPB Q8H-IV [facility]; Protocol Last Admin: 04/15/18 09:21 Dose: 200 mls/hr Metronidazole (Flagyl 500mg Premixed Ivpb -) 500 mg in 100 mls @ 100 mls/hr IVPB Q8H-IV [facility] Last Admin: 04/15/18 09:21 Dose: 100 mls/hr Vancomycin HCl 1,250 mg/ (Dextrose) 250 mls @ 166.667 mls/hr IVPB Q12H [facility]; Protocol Last Admin: 04/15/18 02:10 Dose: 166.667 mls/hr Lactated Ringer's (Lactated Ringers Solution) 1,000 mls @ 42 mls/hr IV ASDIR FLORIN Last Admin: 04/14/18 23:31 Dose: 42 mls/hr Insulin Aspart (Novolog Vial Sliding Scale -) 1 vial SQ ACHS [facility]; Protocol Last Admin: 04/15/18 06:23 Dose: 4 units CBC, BMP 04/14/18 06:00 04/14/18 06:02 Microbiology 04/13/18 11:40 Blood Culture - Preliminary Blood - Peripheral Venous NO GROWTH OBTAINED AFTER 48 HOURS, INCUBATION TO CONTINUE FOR 3 DAYS. 04/13/18 11:40 Gram Stain - Final Abdomen Wound Culture - Preliminary Escherichia Coli Staphylococcus Coagulase Neg Group D Strep Or Entero Coccus 04/14/18 11:45 Gram Stain - Final Cholecystectomy Fluid Body Fluid Culture - Preliminary NO AEROBIC GROWTH, 24 HRS 04/13/18 11:40 Blood Culture - Preliminary Blood - Peripheral Venous Staphylococcus Coagulase Neg 04/14/18 11:45 SAMUEL Preparation - Preliminary Cholecystectomy Fluid Fungal Culture - Preliminary 04/13/18 11:50 Urine Culture - Final Urine - Urine - Catheterized NO GROWTH OBTAINED Physical Exam. Awake/ Lethargic S1 S2 Irregular Lungs decreased breath sounds Abd- calin drain/ Colostomy bag + No edema stage 2 sacrum , no yellowish discharge PLAN iv antibiotics cultures sent keep NPO for now iv fluids meds reviewed discussed with pts family also prognosis gaurded. Problem List - Problems (1) Biliary sepsis Code(s): K83.09 - OTHER CHOLANGITIS (2) Sepsis Code(s): A41.9 - SEPSIS, UNSPECIFIED ORGANISM (3) Severe sepsis Code(s): A41.9 - SEPSIS, UNSPECIFIED ORGANISM; R65.20 - SEVERE SEPSIS WITHOUT SEPTIC SHOCK (4) Abdominal pain Code(s): R10.9 - UNSPECIFIED ABDOMINAL PAIN
--- NOTE | 2018-04-15 13:08 | PN ---
Progress Note, Physician History of Present Illness: Awake Indicates no pain when questioned Temps down WBC slightly elevated BC SCN x 1 bottle Wound c/s mixed - Current Medication List Current Medications: Active Medications Collagenase (Santyl -) 1 applic TP DAILY [facility]OR[facility]; Protocol Last Admin: 04/14/18 10:18 Dose: Not Given Cefepime HCl 2 gm/ Dextrose 100 mls @ 200 mls/hr IVPB Q8H-IV [facility]; Protocol Last Admin: 04/15/18 09:21 Dose: 200 mls/hr Metronidazole (Flagyl 500mg Premixed Ivpb -) 500 mg in 100 mls @ 100 mls/hr IVPB Q8H-IV [facility] Last Admin: 04/15/18 09:21 Dose: 100 mls/hr Vancomycin HCl 1,250 mg/ (Dextrose) 250 mls @ 166.667 mls/hr IVPB Q12H [facility]; Protocol Last Admin: 04/15/18 02:10 Dose: 166.667 mls/hr Lactated Ringer's (Lactated Ringers Solution) 1,000 mls @ 42 mls/hr IV ASDIR FLORIN Last Admin: 04/14/18 23:31 Dose: 42 mls/hr Insulin Aspart (Novolog Vial Sliding Scale -) 1 vial SQ ACHS [facility]; Protocol Last Admin: 04/15/18 12:44 Dose: Not Given - Objective Vital Signs: Vital Signs Temperature 98 F 04/15/18 09:00 Pulse Rate 91 H 04/15/18 09:00 Respiratory Rate 18 04/15/18 09:00 Blood Pressure 155/90 04/15/18 09:00 O2 Sat by Pulse Oximetry (%) 99 04/15/18 09:00 Constitutional: Yes: No Distress, Obese Cardiovascular: Yes: Regular Rate and Rhythm, S1, S2 Respiratory: Yes: CTA Bilaterally Gastrointestinal: Yes: Normal Bowel Sounds, Soft, Other (+ostomy +CHRISTIAN drain) Edema: Yes Labs: CBC, BMP 04/14/18 06:00 04/14/18 06:02 INR, PTT INR 1.69 (0.83-1.09) H 04/13/18 11:40 Assessment/Plan Wound infection ? Biloma +BC SCN probable contaminant Repeat BC Continue vancomycin/ cefepime/ flagyl
[2018-04-15] MEDS ORDERED: ACETAMINOPHEN 1000 MG/100 ML VIAL (NON FORMULARY) IVPB ONE (17:45)
[2018-04-15] MEDS: COLLAGENASE CLOSTRIDIUM HIST. 30 GRAMS TUBE TP SCH (18:19)
[2018-04-15] MEDS: LACTATED RINGERS SOLUTION 1,000 ML IV SCH (21:34)
[2018-04-16] MEDS ORDERED: DEXTROSE 5%-WATER 100 ML IVPB ONE ×3 (01:22→17:02)
[2018-04-16] MEDS ORDERED: CEFEPIME HCL 2 GM VIAL (RESTRICTED TO ID) ONE ×3 (01:22→17:02)
[2018-04-16] MEDS: CEFEPIME 2 GM in DEXTROSE 5%-WATER 100 ML IVPB SCH ×3 (01:24→17:15)
[2018-04-16] MEDS: VANCOMYCIN 1,250 MG in DEXTROSE 5%-WATER - 250 ML IVPB SCH ×2 (03:15→15:09)
[2018-04-16] MEDS: INSULIN SLIDING SCALE (NOVOLOG) 1 VIAL SQ SCH ×4 (06:34→22:21)
[2018-04-16 08:04] LABS: BASO % 0.4 % (0-2.0); EOS % 1.3 % (0-4.5); HEMATOCRIT 27.7 % (35.4-49); LYMPH % 18.4 % (8-40); MCH 31.9 pg (25.7-33.7); MCHC 36.2 g/dl (32.0-35.9); MEAN CELL VOLUME 88.1 fl (80-96); MEAN PLT VOLUME 9.9 fl (7.5-11.1); MONO % 7.4 % (3.8-10.2); NEUT % 72.5 % (42.8-82.8); PLATELET COUNT 256 K/MM3 (134-434); RBC 3.15 M/mm3 (4.00-5.60); WHITE BLOOD COUNT 9.8 K/mm3 (4.0-10.0)
[2018-04-16 08:50] LABS: ALK PHOS 102 U/L (45-117); ANION GAP 7 MMOL/L (8-16); BLOOD UREA NITROGEN 10 mg/dL (7-18); CHLORIDE 101 mmol/L (98-107); CO2 30 mmol/L (21-32); CREATININE 0.6 mg/dL (0.55-1.3); GLUCOSE,RANDOM 230 mg/dL (74-106); SGOT/AST 29 U/L (15-37); SGPT/ALT 39 U/L (13-61); SODIUM 138 mmol/L (136-145); TOT PROT 6.8 g/dl (6.4-8.2)
[2018-04-16 09:12] LABS: POTASSIUM 2.9 mmol/L (3.5-5.1)
[2018-04-16] MEDS: COLLAGENASE CLOSTRIDIUM HIST. 30 GRAMS TUBE TP SCH (09:31)
[2018-04-16] MEDS ORDERED: METOPROLOL TARTRATE 5 MG/5 ML VIAL IVPUSH PRN (12:36)
--- NOTE | 2018-04-16 12:51 | PN ---
Progress Note (short form) - Note Progress Note: pt seen/ examined awake but weak and lethargic denies pain on asking having fever. bp runs high currently npo Vital Signs Temp 98.3 F 04/16/18 05:52 Pulse 84 04/16/18 09:00 Resp 20 04/16/18 09:00 BP 169/93 04/16/18 09:00 Pulse Ox 98 04/16/18 09:00 Intake & Output 04/15/18 04/16/18 04/16/18 23:59 11:59 23:59 Intake Total 904 862 Balance 904 862 Intake: IV 504 462 Lactated Ringers Solution 504 462 1,000 ml @ 42 mls/hr IV ASDIR FLORIN Rx#:[id number] IVPB 400 400 Other: Voiding Method Incontinent Incontinent # Unmeasured Voids Left Nephrostomy 1 Active Medications Acetaminophen (Ofirmev Injection -) 1,000 mg IVPB Q8H-IV [facility]OR[facility] Collagenase (Santyl -) 1 applic TP DAILY [facility]; Protocol Last Admin: 04/16/18 09:31 Dose: 1 appful Cefepime HCl 2 gm/ Dextrose 100 mls @ 200 mls/hr IVPB Q8H-IV [facility]; Protocol Last Admin: 04/16/18 09:31 Dose: 200 mls/hr Metronidazole (Flagyl 500mg Premixed Ivpb -) 500 mg in 100 mls @ 100 mls/hr IVPB Q8H-IV [facility] Last Admin: 04/16/18 09:31 Dose: 100 mls/hr Vancomycin HCl 1,250 mg/ (Dextrose) 250 mls @ 166.667 mls/hr IVPB Q12H [facility]; Protocol Last Admin: 04/16/18 03:15 Dose: 166.667 mls/hr Potassium Chloride (Potassium Chloride 10 Meq Premix Ivpb -) 10 meq in 100 mls @ 100 mls/hr IVPB Q1H [facility] Stop: 04/16/18 15:44 Amino Acids (Clinimix -) 1,000 mls @ 84 mls/hr IV Q12H [facility] Insulin Aspart (Novolog Vial Sliding Scale -) 1 vial SQ ACHS [facility]; Protocol Last Admin: 04/16/18 06:34 Dose: Not Given Insulin Detemir (Levemir Vial) 5 units SQ HS [facility] Metoprolol Tartrate (Lopressor Injection -) 5 mg IVPUSH Q8H PRN PRN Reason: HYPERTENSION CBC, BMP 04/16/18 06:20 04/16/18 06:20 Microbiology 04/13/18 11:40 Blood Culture - Preliminary Blood - Peripheral Venous NO GROWTH OBTAINED AFTER 48 HOURS, INCUBATION TO CONTINUE FOR 3 DAYS. 04/13/18 11:40 Gram Stain - Final Abdomen Wound Culture - Preliminary Escherichia Coli Staphylococcus Coagulase Neg Group D Strep Or Entero Coccus 04/14/18 11:45 Gram Stain - Final Cholecystectomy Fluid Body Fluid Culture - Preliminary NO AEROBIC GROWTH, 24 HRS 04/13/18 11:40 Blood Culture - Preliminary Blood - Peripheral Venous Staphylococcus Coagulase Neg 04/14/18 11:45 SAMUEL Preparation - Preliminary Cholecystectomy Fluid Fungal Culture - Preliminary 04/13/18 11:50 Urine Culture - Final Urine - Urine - Catheterized NO GROWTH OBTAINED Physical Exam. Awake/ Lethargic S1 S2 Irregular Lungs decreased breath sounds Abd- calin drain/ Colostomy bag + No edema stage 2 sacrum , no yellowish discharge PLAN overall condition remains poor iv antibiotics NPO for now iv fluids--change to clinimix supplement k lopressor i/v prn will follow discussed with nursing staff Problem List - Problems (1) Biliary sepsis Code(s): K83.09 - OTHER CHOLANGITIS (2) Sepsis Code(s): A41.9 - SEPSIS, UNSPECIFIED ORGANISM (3) Severe sepsis Code(s): A41.9 - SEPSIS, UNSPECIFIED ORGANISM; R65.20 - SEVERE SEPSIS WITHOUT SEPTIC SHOCK (4) Abdominal pain Code(s): R10.9 - UNSPECIFIED ABDOMINAL PAIN
[2018-04-16] MEDS: KCL 10 MEQ IVPB 10 MEQ/100 ML INFUS.BAG IVPB SCH ×4 (13:37→17:17)
[2018-04-16] MEDS: ACETAMINOPHEN 1000 MG/100 ML VIAL (NON FORMULARY) IVPB PRN (15:07)
[2018-04-16] MEDS: AMINO ACIDS 4.25%/D5W 1,000 ML IV SCH (17:30)
[2018-04-16] MEDS ORDERED: PT OWN MED DRAWER 7, Y5N ONE (18:29)
[2018-04-16] MEDS: INSULIN (LEVEMIR) 100 UNITS/ML UNITS SQ SCH (22:21)
[2018-04-17] MEDS: CEFEPIME 2 GM in DEXTROSE 5%-WATER 100 ML IVPB SCH ×2 (01:29→10:57)
[2018-04-17] MEDS: NITROGLYCERIN 0.1 MG/HOUR TD PATCH TD SCH ×2 (01:34→11:00)
[2018-04-17] MEDS: VANCOMYCIN 1,250 MG in DEXTROSE 5%-WATER - 250 ML IVPB SCH (03:30)
[2018-04-17] MEDS: AMINO ACIDS 4.25%/D5W 1,000 ML IV SCH ×2 (06:23→13:27)
[2018-04-17] MEDS: INSULIN SLIDING SCALE (NOVOLOG) 1 VIAL SQ SCH ×4 (06:24→22:35)
[2018-04-17 08:33] LABS: BASO % 0.7 % (0-2.0); EOS % 1.5 % (0-4.5); HEMATOCRIT 29.4 % (35.4-49); HEMOGLOBIN 9.9 GM/dL (11.7-16.9); LYMPH % 25.6 % (8-40); MCH 29.8 pg (25.7-33.7); MCHC 33.7 g/dl (32.0-35.9); MEAN CELL VOLUME 88.7 fl (80-96); MEAN PLT VOLUME 9.7 fl (7.5-11.1); MONO % 8.4 % (3.8-10.2); NEUT % 63.8 % (42.8-82.8); PLATELET COUNT 280 K/MM3 (134-434); RBC 3.31 M/mm3 (4.00-5.60); RDW 16.6 % (11.9-15.9)
[2018-04-17 09:13] LABS: ALK PHOS 96 U/L (45-117); ANION GAP 8 MMOL/L (8-16); BILIRUBIN,TOTAL 0.7 mg/dL (0.2-1); BLOOD UREA NITROGEN 10 mg/dL (7-18); CALCIUM 7.9 mg/dL (8.5-10.1); CHLORIDE 99 mmol/L (98-107); CO2 28 mmol/L (21-32); CREATININE 0.6 mg/dL (0.55-1.3); GLUCOSE,RANDOM 241 mg/dL (74-106); MAGNESIUM 1.8 mg/dL (1.8-2.4); POTASSIUM 3.1 mmol/L (3.5-5.1); SGOT/AST 24 U/L (15-37); SGPT/ALT 32 U/L (13-61); SODIUM 135 mmol/L (136-145); TOT PROT 6.9 g/dl (6.4-8.2)
[2018-04-17] MEDS ORDERED: PT OWN MED DRAWER 7, Y5N ONE ×2 (10:38→19:02)
[2018-04-17] MEDS ORDERED: CEFEPIME HCL 2 GM VIAL (RESTRICTED TO ID) ONE (10:39)
[2018-04-17] MEDS ORDERED: DEXTROSE 5%-WATER 100 ML IVPB ONE (10:39)
[2018-04-17] MEDS: COLLAGENASE CLOSTRIDIUM HIST. 30 GRAMS TUBE TP SCH (11:00)
--- NOTE | 2018-04-17 11:35 | PN ---
Progress Note (short form) - Note Progress Note: pt seen/ examined more awake today denies pain afebrile started on clinimix yesterday Vital Signs Temp 98.6 F 04/17/18 06:00 Pulse 80 04/17/18 06:00 Resp 20 04/17/18 06:00 BP 148/78 04/17/18 06:00 Pulse Ox 97 04/16/18 21:00 Intake & Output 04/16/18 04/16/18 04/17/18 11:59 23:59 11:59 Intake Total 862 1050 1350 Output Total 10 Balance 862 1040 1350 Intake: IV 462 300 Lactated Ringers Solution 462 300 1,000 ml @ 42 mls/hr IV ASDIR FLORIN Rx#:[id number] IVPB 400 1050 1050 Output: Drainage 10 Right Abdomen 10 Other: Voiding Method Incontinent Incontinent Incontinent # Unmeasured Voids Left Nephrostomy 1 Bowel Movement No Active Medications Acetaminophen (Ofirmev Injection -) 1,000 mg IVPB Q8H PRN PRN Reason: FEVER Last Admin: 04/16/18 15:07 Dose: 1,000 mg Collagenase (Santyl -) 1 applic TP DAILY [facility]; Protocol Last Admin: 04/17/18 11:00 Dose: 1 appful Cefepime HCl 2 gm/ Dextrose 100 mls @ 200 mls/hr IVPB Q8H-IV [facility]; Protocol Last Admin: 04/17/18 10:57 Dose: 200 mls/hr Metronidazole (Flagyl 500mg Premixed Ivpb -) 500 mg in 100 mls @ 100 mls/hr IVPB Q8H-IV [facility] Last Admin: 04/17/18 10:59 Dose: 100 mls/hr Vancomycin HCl 1,250 mg/ (Dextrose) 250 mls @ 166.667 mls/hr IVPB Q12H [facility]; Protocol Last Admin: 04/17/18 03:30 Dose: 166.667 mls/hr Amino Acids (Clinimix -) 1,000 mls @ 84 mls/hr IV Q12H [facility] Last Admin: 04/17/18 06:23 Dose: 84 mls/hr Potassium Chloride (Potassium Chloride 10 Meq Premix Ivpb -) 10 meq in 100 mls @ 100 mls/hr IVPB Q60M [facility] Stop: 04/17/18 14:44 Insulin Aspart (Novolog Vial Sliding Scale -) 1 vial SQ ACHS [facility]; Protocol Last Admin: 04/17/18 06:24 Dose: 8 units Insulin Detemir (Levemir Vial) 5 units SQ HS [facility] Last Admin: 04/16/18 22:21 Dose: 5 units Metoprolol Tartrate (Lopressor Injection -) 5 mg IVPUSH Q8H PRN PRN Reason: HYPERTENSION Nitroglycerin (Nitro-Dur Patch -) 0.1 mg TD DAILY [facility] Last Admin: 04/17/18 11:00 Dose: 0.1 mg CBC, BMP 04/17/18 07:00 04/17/18 07:00 Microbiology 04/13/18 11:40 Blood Culture - Final Blood - Peripheral Venous Staph Hominis Sub Sp Hominis 04/14/18 11:45 AFB Smear Concentration - Preliminary Cholecystectomy Fluid Mycobacterial Culture - Preliminary 04/13/18 11:40 Blood Culture - Preliminary Blood - Peripheral Venous NO GROWTH OBTAINED AFTER 72 HOURS, INCUBATION TO CONTINUE FOR 2 DAYS. 04/14/18 11:45 Gram Stain - Final Cholecystectomy Fluid Body Fluid Culture - Final NO GROWTH OF AEROBIC ORGANISMS AFTER 48 HOURS INCUBATION Anaerobic Culture - Final NO ANAEROBES WERE ISOLATED 04/13/18 11:40 Gram Stain - Final Abdomen Wound Culture - Final Escherichia Coli Staphylococcus Coagulase Neg Vr Ec Faecalis Physical Exam. Awake S1 S2 Irregular Lungs decreased breath sounds Abd- calin drain/ Colostomy bag + . soft . No edema stage 2 sacrum , no yellowish discharge PLAN slight improvement clinically iv antibiotics NPO for now iv clinimix supplement k bp better start on liquid diet will follow discussed with nursing staff.
--- NOTE | 2018-04-17 11:45 | PN ---
Progress Note (short form) - Note Progress Note: more alert no complaints Vital Signs Period Temp Pulse Resp BP Sys/Pham Pulse Ox Last 24 Hr 97.2 F-99.2 F 80-97 20-24 139-150/78-90 97 cor-rrr lungs clear abd +ostomy with stool continued dark drainage from the RUQ drain incision with opening with continued drainage ext no edema CBC, BMP 04/17/18 07:00 04/17/18 07:00 Microbiology 04/13/18 11:40 Blood - Peripheral Venous Blood Culture - Final Staph Hominis Sub Sp Hominis 04/14/18 11:45 Cholecystectomy Fluid AFB Smear Concentration - Preliminary 04/14/18 11:45 Cholecystectomy Fluid Mycobacterial Culture - Preliminary 04/13/18 11:40 Blood - Peripheral Venous Blood Culture - Preliminary NO GROWTH OBTAINED AFTER 72 HOURS, INCUBATION TO CONTINUE FOR 2 DAYS. 04/14/18 11:45 Cholecystectomy Fluid Gram Stain - Final 04/14/18 11:45 Cholecystectomy Fluid Body Fluid Culture - Final NO GROWTH OF AEROBIC ORGANISMS AFTER 48 HOURS INCUBATION 04/14/18 11:45 Cholecystectomy Fluid Anaerobic Culture - Final NO ANAEROBES WERE ISOLATED 04/13/18 11:40 Abdomen Gram Stain - Final 04/13/18 11:40 Abdomen Wound Culture - Final Escherichia Coli Staphylococcus Coagulase Neg Vr Ec Faecalis 04/14/18 11:45 Cholecystectomy Fluid SAMUEL Preparation - Preliminary 04/14/18 11:45 Cholecystectomy Fluid Fungal Culture - Preliminary 04/13/18 11:50 Urine - Urine - Catheterized Urine Culture - Final NO GROWTH OBTAINED Current Medications Acetaminophen (Ofirmev Injection -) 1,000 mg IVPB Q8H PRN PRN Reason: FEVER Last Admin: 04/16/18 15:07 Dose: 1,000 mg Collagenase (Santyl -) 1 applic TP DAILY [facility]; Protocol Last Admin: 04/17/18 11:00 Dose: 1 appful Cefepime HCl 2 gm/ Dextrose 100 mls @ 200 mls/hr IVPB Q8H-IV [facility]; Protocol Last Admin: 04/17/18 10:57 Dose: 200 mls/hr Metronidazole (Flagyl 500mg Premixed Ivpb -) 500 mg in 100 mls @ 100 mls/hr IVPB Q8H-IV [facility] Last Admin: 04/17/18 10:59 Dose: 100 mls/hr Vancomycin HCl 1,250 mg/ (Dextrose) 250 mls @ 166.667 mls/hr IVPB Q12H [facility]; Protocol Last Admin: 04/17/18 03:30 Dose: 166.667 mls/hr Amino Acids (Clinimix -) 1,000 mls @ 84 mls/hr IV Q12H [facility] Last Admin: 04/17/18 06:23 Dose: 84 mls/hr Potassium Chloride (Potassium Chloride 10 Meq Premix Ivpb -) 10 meq in 100 mls @ 100 mls/hr IVPB Q60M [facility] Stop: 04/17/18 14:59 Insulin Aspart (Novolog Vial Sliding Scale -) 1 vial SQ ACHS [facility]; Protocol Last Admin: 04/17/18 06:24 Dose: 8 units Insulin Detemir (Levemir Vial) 5 units SQ HS [facility] Last Admin: 04/16/18 22:21 Dose: 5 units Metoprolol Tartrate (Lopressor Injection -) 5 mg IVPUSH Q8H PRN PRN Reason: HYPERTENSION Nitroglycerin (Nitro-Dur Patch -) 0.1 mg TD DAILY [facility] Last Admin: 04/17/18 11:00 Dose: 0.1 mg a/p infected wound continued drainage from the gallbladder s/p colectomy for volvolus d/c vancomycin blood culture isolated is a contaminant continue cefepime/flagyl add ampicillin surgical f/u Problem List - Problems (1) Sepsis Code(s): A41.9 - SEPSIS, UNSPECIFIED ORGANISM (2) Biliary sepsis Code(s): K83.09 - OTHER CHOLANGITIS (3) Wound infection after surgery Code(s): T81.49XA - INFECTION FOLLOWING A PROCEDURE, OTHER SURGICAL SITE, INIT (4) History of open sigmoidectomy Code(s): Z98.890 - OTHER SPECIFIED POSTPROCEDURAL STATES; Z90.49 - ACQUIRED ABSENCE OF OTHER SPECIFIED PARTS OF DIGESTIVE TRACT
[2018-04-17] MEDS: KCL 10 MEQ IVPB 10 MEQ/100 ML INFUS.BAG IVPB SCH ×2 (13:26→22:34)
[2018-04-17] MEDS: INSULIN (LEVEMIR) 100 UNITS/ML UNITS SQ SCH (22:35)
[2018-04-17] MEDS: AMPICILLIN - 2 GM in SODIUM CHLORIDE 100 ML IVPB SCH (23:31)
[2018-04-18] MEDS: KCL 10 MEQ IVPB 10 MEQ/100 ML INFUS.BAG IVPB SCH (00:13)
[2018-04-18] MEDS: AMINO ACIDS 4.25%/D5W 1,000 ML IV SCH ×3 (00:13→11:09)
[2018-04-18] MEDS: AMPICILLIN - 2 GM in SODIUM CHLORIDE 100 ML IVPB SCH ×5 (01:26→21:05)
[2018-04-18] MEDS: INSULIN SLIDING SCALE (NOVOLOG) 1 VIAL SQ SCH ×4 (07:00→22:44)
[2018-04-18 07:46] LABS: BASO % 0.3 % (0-2.0); EOS % 1.4 % (0-4.5); HEMOGLOBIN 9.7 GM/dL (11.7-16.9); LYMPH % 30.4 % (8-40); MCH 30.6 pg (25.7-33.7); MCHC 34.5 g/dl (32.0-35.9); MEAN CELL VOLUME 88.6 fl (80-96); MEAN PLT VOLUME 9.3 fl (7.5-11.1); MONO % 10.5 % (3.8-10.2); NEUT % 57.4 % (42.8-82.8); PLATELET COUNT 296 K/MM3 (134-434); RBC 3.16 M/mm3 (4.00-5.60); RDW 15.9 % (11.9-15.9); WHITE BLOOD COUNT 8.9 K/mm3 (4.0-10.0)
[2018-04-18 08:00] LABS: ALBUMIN 1.8 g/dl (3.4-5.0); ALK PHOS 85 U/L (45-117); ANION GAP 9 MMOL/L (8-16); BILIRUBIN,TOTAL 0.6 mg/dL (0.2-1); BLOOD UREA NITROGEN 10 mg/dL (7-18); CALCIUM 7.5 mg/dL (8.5-10.1); CHLORIDE 95 mmol/L (98-107); CO2 30 mmol/L (21-32); CREATININE 0.5 mg/dL (0.55-1.3); GLUCOSE,RANDOM 250 mg/dL (74-106); POTASSIUM 3.1 mmol/L (3.5-5.1); SGOT/AST 23 U/L (15-37); SGPT/ALT 26 U/L (13-61); SODIUM 134 mmol/L (136-145); TOT PROT 6.2 g/dl (6.4-8.2)
[2018-04-18] MEDS ORDERED: PT OWN MED DRAWER 7, Y5N ONE ×4 (08:29→19:03)
[2018-04-18] MEDS ORDERED: ALBUTEROL SO4 2.5/IPRATROPIUM 0.5 INH SOL 3 ML VIAL.NEB. NEB ONE (09:23)
[2018-04-18] MEDS ORDERED: FUROSEMIDE 40 MG/4 ML INJECTABLE VIAL IVPUSH ONE (09:30)
[2018-04-18] MEDS: ALBUTEROL SO4 2.5/IPRATROPIUM 0.5 INH SOL 3 ML VIAL.NEB. NEB SCH ×4 (10:00→21:35)
[2018-04-18] MEDS: NITROGLYCERIN 0.1 MG/HOUR TD PATCH TD SCH (10:11)
[2018-04-18] MEDS: COLLAGENASE CLOSTRIDIUM HIST. 30 GRAMS TUBE TP SCH (10:11)
--- NOTE | 2018-04-18 10:46 | PN ---
Progress Note (short form) - Note Progress Note: pt seen/ examined more alert/ awake today no distress appears congested afebrile i/d f/u noted Vital Signs Temp 97.7 F 04/18/18 06:00 Pulse 102 H 04/18/18 06:00 Resp 20 04/18/18 06:00 BP 140/80 04/18/18 06:00 Pulse Ox 98 04/17/18 21:00 Intake & Output 04/17/18 04/17/18 04/18/18 11:59 23:59 11:59 Intake Total 2304 149 0713 Output Total 40 Balance 7895 042 0779 Weight 204 lb Intake: IV 300 Lactated Ringers Solution 300 1,000 ml @ 42 mls/hr IV ASDIR [facility] Rx#:[id number] IVPB 1050 1188 Oral 300 Output: Drainage 40 Right Abdomen 40 Other: Voiding Method Incontinent Incontinent Incontinent # Unmeasured Voids Left Nephrostomy 1 Bowel Movement No Height 5 ft 8 in Body Mass Index (BMI) 31.0 Active Medications Acetaminophen (Ofirmev Injection -) 1,000 mg IVPB Q8H PRN PRN Reason: FEVER Last Admin: 04/16/18 15:07 Dose: 1,000 mg Collagenase (Santyl -) 1 applic TP DAILY [facility]; Protocol Last Admin: 04/18/18 10:11 Dose: 1 appful Fat Emulsion Intravenous (Intralipid -) 250 ml IV DAILY@2200 [facility] Metronidazole (Flagyl 500mg Premixed Ivpb -) 500 mg in 100 mls @ 100 mls/hr IVPB Q8H-IV [facility] Last Admin: 04/18/18 09:58 Dose: 100 mls/hr Ampicillin Sodium 2 gm/ Sodium (Chloride) 100 mls @ 200 mls/hr IVPB Q6H-IV [facility] ; Protocol Last Admin: 04/18/18 08:44 Dose: 200 mls/hr Amino Acids (Clinimix -) 1,000 mls @ 50 mls/hr IV Q20H [facility] Insulin Aspart (Novolog Vial Sliding Scale -) 1 vial SQ ACHS [facility]; Protocol Last Admin: 04/18/18 07:00 Dose: 6 units Insulin Detemir (Levemir Vial) 5 units SQ HS [facility] Last Admin: 04/17/18 22:35 Dose: 5 units Metoprolol Tartrate (Lopressor Injection -) 5 mg IVPUSH Q8H PRN PRN Reason: HYPERTENSION Nitroglycerin (Nitro-Dur Patch -) 0.1 mg TD DAILY [facility] Last Admin: 04/18/18 10:11 Dose: 0.1 mg Potassium Chloride (Potassium Chloride Oral Liquid) 40 meq PO ONCE ONE Stop: 04/18/18 10:41 CBC, BMP 04/18/18 06:00 04/18/18 06:00 Microbiology 04/13/18 11:40 Blood Culture - Preliminary Blood - Peripheral Venous NO GROWTH OBTAINED AFTER 96 HOURS, INCUBATION TO CONTINUE FOR 1 DAYS. 04/13/18 11:40 Blood Culture - Final Blood - Peripheral Venous Staph Hominis Sub Sp Hominis 04/14/18 11:45 AFB Smear Concentration - Preliminary Cholecystectomy Fluid Mycobacterial Culture - Preliminary Physical Exam. Awake S1 S2 Irregular Lungs decreased breath sounds/ rhonchi Abd- calin drain/ Colostomy bag + . soft . No edema stage 2 sacrum , no yellowish discharge . neuro- awake. PLAN clinically better iv antibiotics per i/d advance diet-- dysphagia iv clinimix-- decrease rate add lipids supplement k lasix x 1 dose today nebulizer cxr surgery to follow overall condition remains gaurded will follow discussed with nursing staff. will follow Problem List - Problems (1) Biliary sepsis Code(s): K83.09 - OTHER CHOLANGITIS (2) Wound infection after surgery Code(s): T81.49XA - INFECTION FOLLOWING A PROCEDURE, OTHER SURGICAL SITE, INIT (3) H/O: CVA (cerebrovascular accident) Code(s): Z86.73 - PRSNL HX OF TIA (TIA), AND CEREB INFRC W/O RESID DEFICITS (4) Hypokalemia Code(s): E87.6 - HYPOKALEMIA
[2018-04-18] MEDS ORDERED: POTASSIUM CHLORIDE ORAL LIQUID 20 MEQ/15 ML PO ONE (11:00)
[2018-04-18] MEDS ORDERED: INSULIN (NOVOLOG) ASPART 100 UNITS/ML 10ML VIAL ONE ×2 (11:41→19:03)
[2018-04-18] MEDS ORDERED: FAT EMULSIONS 20% 250 ML PREMIX INFUS.BAG IV SCH (22:00)
[2018-04-18] MEDS: INSULIN (LEVEMIR) 100 UNITS/ML UNITS SQ SCH (22:43)
[2018-04-18] MEDS: FAT EMULSIONS 250 ML IV SCH (22:45)
[2018-04-19] MEDS ORDERED: PT OWN MED DRAWER 7, Y5N ONE ×4 (02:49→13:26)
[2018-04-19] MEDS: AMPICILLIN - 2 GM in SODIUM CHLORIDE 100 ML IVPB SCH ×4 (02:57→21:56)
[2018-04-19] MEDS: INSULIN SLIDING SCALE (NOVOLOG) 1 VIAL SQ SCH ×4 (06:35→22:08)
[2018-04-19 07:35] LABS: BASO % 0.5 % (0-2.0); EOS % 1.4 % (0-4.5); HEMOGLOBIN 10.2 GM/dL (11.7-16.9); LYMPH % 29.7 % (8-40); MCH 30.6 pg (25.7-33.7); MEAN PLT VOLUME 9.3 fl (7.5-11.1); MONO % 11.5 % (3.8-10.2); NEUT % 56.9 % (42.8-82.8); PLATELET COUNT 317 K/MM3 (134-434); RBC 3.34 M/mm3 (4.00-5.60); RDW 16.1 % (11.9-15.9); WHITE BLOOD COUNT 8.2 K/mm3 (4.0-10.0)
[2018-04-19 08:35] LABS: ALK PHOS 94 U/L (45-117); ANION GAP 9 MMOL/L (8-16); BILIRUBIN,TOTAL 0.4 mg/dL (0.2-1); BLOOD UREA NITROGEN 11 mg/dL (7-18); CALCIUM 8.1 mg/dL (8.5-10.1); CHLORIDE 97 mmol/L (98-107); CO2 30 mmol/L (21-32); CREATININE 0.5 mg/dL (0.55-1.3); GLUCOSE,RANDOM 167 mg/dL (74-106); POTASSIUM 3.4 mmol/L (3.5-5.1); SGOT/AST 27 U/L (15-37); SGPT/ALT 24 U/L (13-61); SODIUM 135 mmol/L (136-145); TOT PROT 6.5 g/dl (6.4-8.2)
[2018-04-19] MEDS: ALBUTEROL SO4 2.5/IPRATROPIUM 0.5 INH SOL 3 ML VIAL.NEB. NEB SCH ×3 (08:55→20:19)
[2018-04-19] MEDS: COLLAGENASE CLOSTRIDIUM HIST. 30 GRAMS TUBE TP SCH (09:56)
[2018-04-19] MEDS: NITROGLYCERIN 0.1 MG/HOUR TD PATCH TD SCH (09:57)
--- NOTE | 2018-04-19 11:22 | PN ---
Progress Note (short form) - Note Progress Note: more alert Vital Signs Period Temp Pulse Resp BP Sys/Pham Pulse Ox Last 24 Hr 97.7 F-98.1 F 66-115 20-20 131-162/63-86 96 cor-rrr lungs decreased bs at bases abd soft, continued drainage from abdominal incision (midline) +ruq drain with brown thick drainage- +ostomy with stool ext no edema CBC, BMP 04/19/18 06:00 04/19/18 06:00 Microbiology 04/14/18 11:45 Cholecystectomy Fluid AFB Smear Concentration - Final 04/14/18 11:45 Cholecystectomy Fluid Mycobacterial Culture - Preliminary 04/13/18 11:40 Blood - Peripheral Venous Blood Culture - Final NO GROWTH AFTER 5 DAYS INCUBATION 04/13/18 11:40 Blood - Peripheral Venous Blood Culture - Final Staph Hominis Sub Sp Hominis 04/14/18 11:45 Cholecystectomy Fluid Gram Stain - Final 04/14/18 11:45 Cholecystectomy Fluid Body Fluid Culture - Final NO GROWTH OF AEROBIC ORGANISMS AFTER 48 HOURS INCUBATION 04/14/18 11:45 Cholecystectomy Fluid Anaerobic Culture - Final NO ANAEROBES WERE ISOLATED 04/13/18 11:40 Abdomen Gram Stain - Final 04/13/18 11:40 Abdomen Wound Culture - Final Escherichia Coli Staphylococcus Coagulase Neg Vr Ec Faecalis 04/14/18 11:45 Cholecystectomy Fluid SAMUEL Preparation - Preliminary 04/14/18 11:45 Cholecystectomy Fluid Fungal Culture - Preliminary 04/13/18 11:50 Urine - Urine - Catheterized Urine Culture - Final NO GROWTH OBTAINED a/p infected wound continued drainage from RUQ- ?abscess s/p colectomy for volvolus surgery f/u rocephin/amp/flagyl to continue Problem List - Problems (1) Sepsis Code(s): A41.9 - SEPSIS, UNSPECIFIED ORGANISM (2) Biliary sepsis Code(s): K83.09 - OTHER CHOLANGITIS (3) Wound infection after surgery Code(s): T81.49XA - INFECTION FOLLOWING A PROCEDURE, OTHER SURGICAL SITE, INIT (4) History of open sigmoidectomy Code(s): Z98.890 - OTHER SPECIFIED POSTPROCEDURAL STATES; Z90.49 - ACQUIRED ABSENCE OF OTHER SPECIFIED PARTS OF DIGESTIVE TRACT
[2018-04-19] MEDS ORDERED: KCL 10 MEQ IVPB 10 MEQ/100 ML INFUS.BAG IVPB SCH (12:00)
--- NOTE | 2018-04-19 12:13 | PN ---
Progress Note (short form) - Note Progress Note: Pt awake no distress coughing+productive No SOB still has drainage at the wound dehiscence Vital Signs - 24 hr 04/18/18 04/18/18 04/18/18 14:29 18:31 21:00 Temperature 97.7 F 97.9 F Pulse Rate 115 H 66 Respiratory 20 20 Rate Blood Pressure 135/63 137/68 O2 Sat by Pulse 96 Oximetry (%) 04/18/18 04/19/18 04/19/18 22:00 06:00 10:00 Temperature 97.9 F 98.1 F 97.6 F Pulse Rate 81 91 H 96 H Respiratory 20 20 20 Rate Blood Pressure 131/72 162/86 147/89 O2 Sat by Pulse Oximetry (%) Current Medications Generic Name Dose Route Start Last Admin Trade Name Freq PRN Reason Stop Dose Admin Acetaminophen 1,000 mg 04/16/18 14:47 04/16/18 15:07 Ofirmev Injection - IVPB 1,000 mg Q8H PRN Administration FEVER Albuterol/Ipratropium 1 amp 04/18/18 09:30 04/18/18 21:35 Duoneb - NEB 1 amp RQID [facility] Administration Collagenase 1 applic 04/14/18 10:00 04/19/18 09:56 Santyl - TP Not Given DAILY [facility] Protocol Metronidazole 500 mg in 100 mls @ 100 mls/hr 04/14/18 15:45 04/19/18 11:43 Flagyl 500mg Premixed Ivpb - IVPB 100 mls/hr Q8H-IV [facility] Administration Ampicillin Sodium 2 gm/ Sodium 100 mls @ 200 mls/hr 04/17/18 15:00 04/19/18 11:08 Chloride IVPB 200 mls/hr Q6H-IV [facility] Administration Protocol Amino Acids 1,000 mls @ 50 mls/hr 04/18/18 10:38 04/18/18 11:09 Clinimix - IV 50 mls/hr Q20H [facility] Administration Fat Emulsion Intravenous 250 mls @ 20.833 mls/hr 04/18/18 22:00 04/18/18 22: 45 Intralipid - IV 20.833 mls/hr DAILY@2200 [facility] Administration Ceftriaxone Sodium 2 gm/ 100 mls @ 200 mls/hr 04/19/18 11:15 Dextrose IVPB DAILY [facility] Protocol Potassium Chloride 10 meq in 100 mls @ 100 mls/hr 04/19/18 12:00 Potassium Chloride 10 Meq Premix Ivpb - IVPB 04/19/18 12:59 Q60M [facility] Insulin Aspart 1 vial 04/13/18 22:00 04/19/18 06:35 Novolog Vial Sliding Scale - SQ 4 units ACHS [facility] Administration Protocol Insulin Detemir 5 units 04/16/18 22:00 04/18/18 22:43 Levemir Vial SQ 5 units HS [facility] Administration Metoprolol Tartrate 5 mg 04/16/18 12:36 Lopressor Injection - IVPUSH Q8H PRN HYPERTENSION Nitroglycerin 0.1 mg 04/16/18 13:00 04/19/18 09:57 Nitro-Dur Patch - TD 0.1 mg DAILY [facility] Administration Laboratory Results - last 24 hr 04/18/18 04/18/18 04/18/18 11:45 16:16 22:42 WBC RBC Hgb Hct MCV MCH MCHC RDW Plt Count MPV Absolute Neuts (auto) Neutrophils % Lymphocytes % Monocytes % Eosinophils % Basophils % Nucleated RBC % Sodium Potassium Chloride Carbon Dioxide Anion Gap BUN Creatinine Creat Clearance w eGFR POC Glucometer 242 329 270 Random Glucose Calcium Total Bilirubin AST ALT Alkaline Phosphatase Total Protein Albumin 04/19/18 04/19/18 04/19/18 05:44 06:00 06:00 WBC 8.2 RBC 3.34 L Hgb 10.2 L Hct 30.0 L MCV 90.0 MCH 30.6 MCHC 34.0 RDW 16.1 H Plt Count 317 MPV 9.3 Absolute Neuts (auto) 4.7 Neutrophils % 56.9 Lymphocytes % 29.7 Monocytes % 11.5 H Eosinophils % 1.4 Basophils % 0.5 Nucleated RBC % 0 Sodium 135 L Potassium 3.4 L Chloride 97 L Carbon Dioxide 30 Anion Gap 9 BUN 11 Creatinine 0.5 L Creat Clearance w eGFR > 60 POC Glucometer 213 Random Glucose 167 H Calcium 8.1 L Total Bilirubin 0.4 AST 27 ALT 24 Alkaline Phosphatase 94 Total Protein 6.5 Albumin 2.0 L 04/19/18 11:30 WBC RBC Hgb Hct MCV MCH MCHC RDW Plt Count MPV Absolute Neuts (auto) Neutrophils % Lymphocytes % Monocytes % Eosinophils % Basophils % Nucleated RBC % Sodium Potassium Chloride Carbon Dioxide Anion Gap BUN Creatinine Creat Clearance w eGFR POC Glucometer 143 Random Glucose Calcium Total Bilirubin AST ALT Alkaline Phosphatase Total Protein Albumin S1 S2 Irregular Lungs decreased breath sounds, crackles+ Abd- surgical wound noted, lower part is dehiscent and purulent discharge, gallbladder drained-- purulent fluid, left colostomy functioning No edema stage 2 sacrum , no yellowish discharge PLAN replace potassium iv antibiotics iv lasix daily Surgical follow up ?wound vac Problem List - Problems (1) Biliary sepsis Code(s): K83.09 - OTHER CHOLANGITIS (2) Sepsis Code(s): A41.9 - SEPSIS, UNSPECIFIED ORGANISM (3) Severe sepsis Code(s): A41.9 - SEPSIS, UNSPECIFIED ORGANISM; R65.20 - SEVERE SEPSIS WITHOUT SEPTIC SHOCK (4) Abdominal pain Code(s): R10.9 - UNSPECIFIED ABDOMINAL PAIN
[2018-04-19] MEDS ORDERED: DEXTROSE 5%-WATER 100 ML IVPB ONE (13:15)
[2018-04-19] MEDS: CEFTRIAXONE 2 GM in DEXTROSE 5%-WATER 100 ML IVPB SCH (13:21)
[2018-04-19] MEDS: AMINO ACIDS 4.25%/D5W 1,000 ML IV SCH ×2 (13:25→16:25)
[2018-04-19] MEDS: SILVER SULFADIAZINE 1% TOP CREAM 50 GM JAR TP SCH ×2 (13:33→21:58)
[2018-04-19] MEDS: POLYETHYLENE GLYCOL 3350 119 GM BTL PO SCH (13:33)
[2018-04-19] MEDS: FUROSEMIDE 40 MG/4 ML INJECTABLE VIAL IVPUSH SCH (13:33)
[2018-04-19] MEDS: INSULIN (LEVEMIR) 100 UNITS/ML UNITS SQ SCH (21:56)
[2018-04-20] MEDS: AMPICILLIN - 2 GM in SODIUM CHLORIDE 100 ML IVPB SCH ×4 (03:26→22:01)
[2018-04-20] MEDS: FAT EMULSIONS 250 ML IV SCH ×2 (04:11→22:01)
[2018-04-20] MEDS: AMINO ACIDS 4.25%/D5W 1,000 ML IV SCH ×2 (04:23→22:02)
[2018-04-20] MEDS: INSULIN SLIDING SCALE (NOVOLOG) 1 VIAL SQ SCH ×4 (06:31→22:32)
[2018-04-20] MEDS ORDERED: PT OWN MED DRAWER 7, Y5N ONE (06:40)
[2018-04-20 07:16] LABS: BASO % 0.8 % (0-2.0); EOS % 1.4 % (0-4.5); HEMATOCRIT 29.6 % (35.4-49); HEMOGLOBIN 9.9 GM/dL (11.7-16.9); LYMPH % 26.2 % (8-40); MCH 29.8 pg (25.7-33.7); MCHC 33.5 g/dl (32.0-35.9); MEAN PLT VOLUME 8.7 fl (7.5-11.1); MONO % 8.7 % (3.8-10.2); NEUT % 62.9 % (42.8-82.8); PLATELET COUNT 354 K/MM3 (134-434); RBC 3.33 M/mm3 (4.00-5.60); RDW 16.1 % (11.9-15.9); WHITE BLOOD COUNT 8.4 K/mm3 (4.0-10.0)
[2018-04-20 07:33] LABS: ALBUMIN 1.9 g/dl (3.4-5.0); ALK PHOS 94 U/L (45-117); ANION GAP 8 MMOL/L (8-16); BILIRUBIN,TOTAL 0.4 mg/dL (0.2-1); BLOOD UREA NITROGEN 9 mg/dL (7-18); CALCIUM 7.8 mg/dL (8.5-10.1); CHLORIDE 95 mmol/L (98-107); CO2 31 mmol/L (21-32); CREATININE 0.5 mg/dL (0.55-1.3); GLUCOSE,RANDOM 223 mg/dL (74-106); POTASSIUM 3.2 mmol/L (3.5-5.1); SGOT/AST 24 U/L (15-37); SGPT/ALT 25 U/L (13-61); SODIUM 134 mmol/L (136-145); TOT PROT 6.6 g/dl (6.4-8.2)
[2018-04-20] MEDS: ALBUTEROL SO4 2.5/IPRATROPIUM 0.5 INH SOL 3 ML VIAL.NEB. NEB SCH ×4 (07:36→20:20)
[2018-04-20] MEDS ORDERED: DEXTROSE 5%-WATER 100 ML IVPB ONE (09:18)
[2018-04-20] MEDS: FUROSEMIDE 40 MG/4 ML INJECTABLE VIAL IVPUSH SCH (10:17)
[2018-04-20] MEDS: NITROGLYCERIN 0.1 MG/HOUR TD PATCH TD SCH (10:24)
[2018-04-20] MEDS: POLYETHYLENE GLYCOL 3350 119 GM BTL PO SCH (10:29)
[2018-04-20] MEDS: SILVER SULFADIAZINE 1% TOP CREAM 50 GM JAR TP SCH ×2 (10:29→22:02)
[2018-04-20] MEDS ORDERED: TRIPLE LUMEN FLUSH 4 ML ML IVPUSH PRN (11:36)
--- NOTE | 2018-04-20 11:40 | PN ---
Progress Note (short form) - Note Progress Note: Pt awake no distress decreased coughing No SOB Vital Signs - 24 hr 04/19/18 04/19/18 04/19/18 14:25 16:32 18:45 Temperature 98 F 99.0 F Pulse Rate 95 H 67 Respiratory 20 20 20 Rate Blood Pressure 129/85 142/66 O2 Sat by Pulse 97 Oximetry (%) 04/19/18 04/19/18 04/20/18 21:00 22:00 06:00 Temperature 97.9 F 98.5 F Pulse Rate 80 67 Respiratory 20 20 20 Rate Blood Pressure 133/82 141/72 O2 Sat by Pulse 97 Oximetry (%) Current Medications Generic Name Dose Route Start Last Admin Trade Name Freq PRN Reason Stop Dose Admin Acetaminophen 1,000 mg 04/16/18 14:47 04/16/18 15:07 Ofirmev Injection - IVPB 1,000 mg Q8H PRN Administration FEVER Albuterol/Ipratropium 1 amp 04/18/18 09:30 04/20/18 07:36 Duoneb - NEB 1 amp RQID [facility] Administration Amino Acids 30 ml 04/20/18 17:30 Prosource No Carb Liquid Pkt PO BID@0800,1730 [facility] Furosemide 40 mg 04/19/18 12:15 04/20/18 10:17 Lasix Injection - IVPUSH 40 mg DAILY [facility] Administration IV Flush 4 ml 04/20/18 11:36 Triple Lumen Flush IVPUSH PRN PRN Protocol Metronidazole 500 mg in 100 mls @ 100 mls/hr 04/14/18 15:45 04/20/18 11:03 Flagyl 500mg Premixed Ivpb - IVPB 100 mls/hr Q8H-IV [facility] Administration Ampicillin Sodium 2 gm/ Sodium 100 mls @ 200 mls/hr 04/17/18 15:00 04/20/18 10:08 Chloride IVPB 200 mls/hr Q6H-IV [facility] Administration Protocol Amino Acids 1,000 mls @ 50 mls/hr 04/18/18 10:38 04/20/18 04:23 Clinimix - IV Not Given Q20H [facility] Fat Emulsion Intravenous 250 mls @ 20.833 mls/hr 04/18/18 22:00 04/20/18 04: 11 Intralipid - IV 20.833 mls/hr DAILY@2200 [facility] Administration Ceftriaxone Sodium 2 gm/ 100 mls @ 200 mls/hr 04/19/18 11:15 04/19/18 13:21 Dextrose IVPB 200 mls/hr DAILY [facility] Administration Protocol Potassium Chloride 10 meq in 100 mls @ 100 mls/hr 04/20/18 11:00 Potassium Chloride 10 Meq Premix Ivpb - IVPB 04/20/18 12:59 Q60M [facility] Insulin Aspart 1 vial 04/13/18 22:00 04/20/18 11:06 Novolog Vial Sliding Scale - SQ 4 units ACHS [facility] Administration Protocol Insulin Detemir 5 units 04/16/18 22:00 04/19/18 21:56 Levemir Vial SQ 5 units HS [facility] Administration Metoprolol Tartrate 5 mg 04/16/18 12:36 Lopressor Injection - IVPUSH Q8H PRN HYPERTENSION Nitroglycerin 0.1 mg 04/16/18 13:00 04/20/18 10:24 Nitro-Dur Patch - TD 0.1 mg DAILY [facility] Administration Polyethylene Glycol 17 gm 04/19/18 12:30 04/20/18 10:29 Miralax (For Daily Use) - PO 17 grams DAILY [facility] Administration Silver Sulfadiazine 1 applic 04/19/18 12:15 04/20/18 10:29 Silvadene - TP 1 applic BID [facility] Administration Laboratory Results - last 24 hr 04/19/18 04/19/18 04/19/18 11:30 17:26 22:06 WBC RBC Hgb Hct MCV MCH MCHC RDW Plt Count MPV Absolute Neuts (auto) Neutrophils % Lymphocytes % Monocytes % Eosinophils % Basophils % Nucleated RBC % Sodium Potassium Chloride Carbon Dioxide Anion Gap BUN Creatinine Creat Clearance w eGFR POC Glucometer 143 238 267 Random Glucose Calcium Total Bilirubin AST ALT Alkaline Phosphatase Total Protein Albumin 04/20/18 04/20/18 04/20/18 05:50 06:15 06:15 WBC 8.4 RBC 3.33 L Hgb 9.9 L Hct 29.6 L MCV 89.0 MCH 29.8 MCHC 33.5 RDW 16.1 H Plt Count 354 MPV 8.7 Absolute Neuts (auto) 5.3 Neutrophils % 62.9 Lymphocytes % 26.2 Monocytes % 8.7 Eosinophils % 1.4 Basophils % 0.8 Nucleated RBC % 0 Sodium 134 L Potassium 3.2 L Chloride 95 L Carbon Dioxide 31 Anion Gap 8 BUN 9 Creatinine 0.5 L Creat Clearance w eGFR > 60 POC Glucometer 317 Random Glucose 223 H Calcium 7.8 L Total Bilirubin 0.4 AST 24 ALT 25 Alkaline Phosphatase 94 Total Protein 6.6 Albumin 1.9 L S1 S2 Irregular Lungs decreased breath sounds Abd- surgical wound noted, lower part is dehiscent and purulent discharge, gallbladder drained-- purulent fluid, left colostomy functioning No edema stage 2 sacrum , no yellowish discharge PLAN replace potassium iv antibiotics iv lasix daily- monitor renal function Surgical follow up ?wound vac Problem List - Problems (1) Biliary sepsis Code(s): K83.09 - OTHER CHOLANGITIS (2) Sepsis Code(s): A41.9 - SEPSIS, UNSPECIFIED ORGANISM (3) Severe sepsis Code(s): A41.9 - SEPSIS, UNSPECIFIED ORGANISM; R65.20 - SEVERE SEPSIS WITHOUT SEPTIC SHOCK (4) Abdominal pain Code(s): R10.9 - UNSPECIFIED ABDOMINAL PAIN
[2018-04-20] MEDS: CEFTRIAXONE 2 GM in DEXTROSE 5%-WATER 100 ML IVPB SCH (12:59)
[2018-04-20] MEDS: KCL 10 MEQ IVPB 10 MEQ/100 ML INFUS.BAG IVPB SCH ×2 (13:08→14:45)
--- NOTE | 2018-04-20 15:01 | PN ---
Progress Note (short form) - Note Progress Note: more alert Vital Signs Period Temp Pulse Resp BP Sys/Pham Pulse Ox Last 24 Hr 97.9 F-99.0 F 67-88 20-20 133-152/66-82 97-97 cor-rrr lungs decreased bs at bases abd soft,nt +drainage from the oopeining in the midline incision +drainage from the RUQ drain CBC, BMP 04/20/18 06:15 04/20/18 06:15 Microbiology 04/14/18 11:45 Cholecystectomy Fluid AFB Smear Concentration - Final 04/14/18 11:45 Cholecystectomy Fluid Mycobacterial Culture - Preliminary 04/13/18 11:40 Blood - Peripheral Venous Blood Culture - Final NO GROWTH AFTER 5 DAYS INCUBATION 04/13/18 11:40 Blood - Peripheral Venous Blood Culture - Final Staph Hominis Sub Sp Hominis 04/14/18 11:45 Cholecystectomy Fluid Gram Stain - Final 04/14/18 11:45 Cholecystectomy Fluid Body Fluid Culture - Final NO GROWTH OF AEROBIC ORGANISMS AFTER 48 HOURS INCUBATION 04/14/18 11:45 Cholecystectomy Fluid Anaerobic Culture - Final NO ANAEROBES WERE ISOLATED 04/13/18 11:40 Abdomen Gram Stain - Final 04/13/18 11:40 Abdomen Wound Culture - Final Escherichia Coli Staphylococcus Coagulase Neg Vr Ec Faecalis 04/14/18 11:45 Cholecystectomy Fluid SAMUEL Preparation - Preliminary 04/14/18 11:45 Cholecystectomy Fluid Fungal Culture - Preliminary 04/13/18 11:50 Urine - Urine - Catheterized Urine Culture - Final NO GROWTH OBTAINED a/p infected wound continued drainage from RUQ- ?abscess- s/p colectomy for volvolus d/w dr pozo - ruq drainage is from collection adjacent to gallbladder- appears to be diminishing less drainage from midline wound rocephin/amp/flagyl to continue day #7 Problem List - Problems (1) Sepsis Code(s): A41.9 - SEPSIS, UNSPECIFIED ORGANISM (2) Biliary sepsis Code(s): K83.09 - OTHER CHOLANGITIS (3) Wound infection after surgery Code(s): T81.49XA - INFECTION FOLLOWING A PROCEDURE, OTHER SURGICAL SITE, INIT (4) History of open sigmoidectomy Code(s): Z98.890 - OTHER SPECIFIED POSTPROCEDURAL STATES; Z90.49 - ACQUIRED ABSENCE OF OTHER SPECIFIED PARTS OF DIGESTIVE TRACT
[2018-04-20] MEDS: AMINO ACIDS/PROTEIN HYDROLYS 30 ML LIQUID.PKT PO SCH (17:03)
[2018-04-20] MEDS: INSULIN (LEVEMIR) 100 UNITS/ML UNITS SQ SCH (23:12)
[2018-04-20] MEDS: ACETAMINOPHEN 1000 MG/100 ML VIAL (NON FORMULARY) IVPB PRN (23:37)
[2018-04-21] MEDS: AMPICILLIN - 2 GM in SODIUM CHLORIDE 100 ML IVPB SCH ×4 (03:35→20:58)
[2018-04-21] MEDS: INSULIN SLIDING SCALE (NOVOLOG) 1 VIAL SQ SCH ×4 (06:11→22:12)
[2018-04-21] MEDS: ALBUTEROL SO4 2.5/IPRATROPIUM 0.5 INH SOL 3 ML VIAL.NEB. NEB SCH ×4 (07:40→20:40)
[2018-04-21 08:06] LABS: ANION GAP 10 MMOL/L (8-16); BLOOD UREA NITROGEN 8 mg/dL (7-18); CHLORIDE 82 mmol/L (98-107); CO2 27 mmol/L (21-32); CREATININE 0.6 mg/dL (0.55-1.3); MAGNESIUM 1.4 mg/dL (1.8-2.4); SODIUM 120 mmol/L (136-145)
[2018-04-21] MEDS ORDERED: PT OWN MED DRAWER 7, Y5N ONE ×3 (08:18→20:51)
[2018-04-21 08:22] LABS: CALCIUM 5.9 mg/dL (8.5-10.1); GLUCOSE,RANDOM 542 mg/dL (74-106); POTASSIUM 2.8 mmol/L (3.5-5.1)
[2018-04-21] MEDS: AMINO ACIDS/PROTEIN HYDROLYS 30 ML LIQUID.PKT PO SCH ×2 (08:24→17:17)
[2018-04-21] MEDS ORDERED: DEXTROSE 5%-WATER 100 ML IVPB ONE (08:40)
[2018-04-21] MEDS: NITROGLYCERIN 0.1 MG/HOUR TD PATCH TD SCH (09:07)
[2018-04-21] MEDS: FUROSEMIDE 40 MG/4 ML INJECTABLE VIAL IVPUSH SCH (09:07)
[2018-04-21] MEDS: POLYETHYLENE GLYCOL 3350 119 GM BTL PO SCH (09:07)
[2018-04-21] MEDS ORDERED: INSULIN (LEVEMIR) 100 UNITS/ML UNITS SQ SCH (10:20)
[2018-04-21] MEDS ORDERED: MAGNESIUM SULF 50% (8.12 MEQ/2 ML-1 GM VIAL) IVPB ONE (10:45)
[2018-04-21] MEDS: KCL 10 MEQ IVPB 10 MEQ/100 ML INFUS.BAG IVPB SCH ×3 (10:57→13:11)
[2018-04-21] MEDS: CEFTRIAXONE 2 GM in DEXTROSE 5%-WATER 100 ML IVPB SCH (10:58)
[2018-04-21] MEDS: SILVER SULFADIAZINE 1% TOP CREAM 50 GM JAR TP SCH ×2 (10:58→21:06)
--- NOTE | 2018-04-21 11:43 | PN ---
Progress Note (short form) - Note Progress Note: more alert NAD Vital Signs Period Temp Pulse Resp BP Sys/Pham Pulse Ox Last 24 Hr 98.5 F-99.1 F 69-114 20-20 137-152/72-92 92-96 minimal drainage, clearing from ruq drain cor-rrr lungs clear abd soft, midline wound with silvadene dressing ext no edema CBC, BMP 04/20/18 06:15 04/21/18 06:15 Microbiology 04/14/18 11:45 Cholecystectomy Fluid AFB Smear Concentration - Final 04/14/18 11:45 Cholecystectomy Fluid Mycobacterial Culture - Preliminary 04/13/18 11:40 Blood - Peripheral Venous Blood Culture - Final NO GROWTH AFTER 5 DAYS INCUBATION 04/13/18 11:40 Blood - Peripheral Venous Blood Culture - Final Staph Hominis Sub Sp Hominis 04/14/18 11:45 Cholecystectomy Fluid Gram Stain - Final 04/14/18 11:45 Cholecystectomy Fluid Body Fluid Culture - Final NO GROWTH OF AEROBIC ORGANISMS AFTER 48 HOURS INCUBATION 04/14/18 11:45 Cholecystectomy Fluid Anaerobic Culture - Final NO ANAEROBES WERE ISOLATED 04/13/18 11:40 Abdomen Gram Stain - Final 04/13/18 11:40 Abdomen Wound Culture - Final Escherichia Coli Staphylococcus Coagulase Neg Vr Ec Faecalis 04/14/18 11:45 Cholecystectomy Fluid SAMUEL Preparation - Preliminary 04/14/18 11:45 Cholecystectomy Fluid Fungal Culture - Preliminary 04/13/18 11:50 Urine - Urine - Catheterized Urine Culture - Final NO GROWTH OBTAINED a/p infected wound VRE- contact isolation continued drainage from RUQ- ?abscess-improving s/p colectomy for volvolus day #8 hope to d/c antiiboitcs on Tuesday continue contact isolation Problem List - Problems (1) Sepsis Code(s): A41.9 - SEPSIS, UNSPECIFIED ORGANISM (2) Biliary sepsis Code(s): K83.09 - OTHER CHOLANGITIS (3) Wound infection after surgery Code(s): T81.49XA - INFECTION FOLLOWING A PROCEDURE, OTHER SURGICAL SITE, INIT (4) History of open sigmoidectomy Code(s): Z98.890 - OTHER SPECIFIED POSTPROCEDURAL STATES; Z90.49 - ACQUIRED ABSENCE OF OTHER SPECIFIED PARTS OF DIGESTIVE TRACT
[2018-04-21] MEDS ORDERED: CALCIUM GLUCONATE 10% - 1,000 MG/10 ML VIAL IVPB ONE (12:30)
--- NOTE | 2018-04-21 12:34 | PN ---
Progress Note (short form) - Note Progress Note: pt seen/ examined just had central line placed labs - noted-- all abnormal awake all f/u noted/ chart reviewed Vital Signs Temp 98.6 F 04/21/18 06:03 Pulse 114 H 04/21/18 10:23 Resp 20 04/21/18 10:23 BP 149/83 04/21/18 10:23 Pulse Ox 92 L 04/21/18 10:23 Intake & Output 04/20/18 04/21/18 04/21/18 23:59 11:59 23:59 Intake Total 1980 795 Output Total 1700 180 Balance 280 615 Intake: IVPB 1400 300 Oral 0 0 TPN/PPN 400 350 Lipid 180 145 Output: Urine 1700 180 Davis 1700 180 Other: Voiding Method External Catheter External Catheter Body Mass Index (BMI) 31.0 Active Medications Acetaminophen (Ofirmev Injection -) 1,000 mg IVPB Q8H PRN PRN Reason: FEVER Last Admin: 04/20/18 23:37 Dose: 1,000 mg Albuterol/Ipratropium (Duoneb -) 1 amp NEB RQID [facility] Last Admin: 04/21/18 07:40 Dose: 1 amp Amino Acids (Prosource No Carb Liquid Pkt) 30 ml PO BID@0800,1730 [facility] Last Admin: 04/21/18 08:24 Dose: 30 ml Furosemide (Lasix Injection -) 40 mg IVPUSH DAILY [facility] Last Admin: 04/21/18 09:07 Dose: 40 mg IV Flush (Triple Lumen Flush) 4 ml IVPUSH PRN PRN PRN Reason: Protocol Metronidazole (Flagyl 500mg Premixed Ivpb -) 500 mg in 100 mls @ 100 mls/hr IVPB Q8H-IV [facility] Last Admin: 04/21/18 10:58 Dose: 100 mls/hr Ampicillin Sodium 2 gm/ Sodium (Chloride) 100 mls @ 200 mls/hr IVPB Q6H-IV [facility] ; Protocol Last Admin: 04/21/18 08:23 Dose: 200 mls/hr Amino Acids (Clinimix -) 1,000 mls @ 50 mls/hr IV Q20H [facility] Last Admin: 04/20/18 22:02 Dose: 50 mls/hr Fat Emulsion Intravenous (Intralipid -) 250 mls @ 20.833 mls/hr IV DAILY@2200 [facility] [place] Last Admin: 04/20/18 22:01 Dose: 20.833 mls/hr Ceftriaxone Sodium 2 gm/ (Dextrose) 100 mls @ 200 mls/hr IVPB DAILY [facility] [place]; Protocol Last Admin: 04/21/18 10:58 Dose: 200 mls/hr Potassium Chloride (Potassium Chloride 10 Meq Premix Ivpb -) 10 meq in 100 mls @ 100 mls/hr IVPB Q60M [facility] [place] Stop: 04/21/18 14:14 Last Admin: 04/21/18 12:06 Dose: 100 mls/hr Insulin Aspart (Novolog Vial Sliding Scale -) 1 vial SQ ACHS [facility] [place]; Protocol Last Admin: 04/21/18 11:27 Dose: 6 units Insulin Detemir (Levemir Vial) 10 units SQ HS [facility] [place] Metoprolol Tartrate (Lopressor Injection -) 5 mg IVPUSH Q8H PRN PRN Reason: HYPERTENSION Nitroglycerin (Nitro-Dur Patch -) 0.1 mg TD DAILY [facility] [place] Last Admin: 04/21/18 09:07 Dose: 0.1 mg Polyethylene Glycol (Miralax (For Daily Use) -) 17 gm PO DAILY [facility] [place] Last Admin: 04/21/18 09:07 Dose: 17 grams Silver Sulfadiazine (Silvadene -) 1 applic TP BID [facility] [place] Last Admin: 04/21/18 10:58 Dose: 1 applic CBC, BMP 04/20/18 06:15 04/21/18 06:15 Physical Exam. Awake S1 S2 Irregular neck- right central line + Lungs decreased breath sounds Abd- calin drain/ Colostomy bag + . soft .-- decreased drainage No edema stage 2 sacrum neuro- awake. PLAN clinically improving slowly iv antibiotics per i/d diet-- dysphagia-- nurse reports eats ok - ate more than 50 percent iv clinimix--consider stopping in 1-2 days if continue to eat better fix lytes/ monitor bgm checked -- around 250 Increase levemir overall condition remains gaurded will follow discussed with nursing staff also Physical Therapy Problem List - Problems (1) Biliary sepsis Code(s): K83.09 - OTHER CHOLANGITIS (2) Wound infection after surgery Code(s): T81.49XA - INFECTION FOLLOWING A PROCEDURE, OTHER SURGICAL SITE, INIT (3) H/O: CVA (cerebrovascular accident) Code(s): Z86.73 - PRSNL HX OF TIA (TIA), AND CEREB INFRC W/O RESID DEFICITS (4) Hypokalemia Code(s): E87.6 - HYPOKALEMIA
[2018-04-21] MEDS: ACETAMINOPHEN 1000 MG/100 ML VIAL (NON FORMULARY) IVPB PRN (16:21)
[2018-04-21] MEDS: AMINO ACIDS 4.25%/D5W 1,000 ML IV SCH ×2 (17:17→17:48)
[2018-04-21 17:48] LABS: BLOOD UREA NITROGEN 8 mg/dL (7-18); CALCIUM 7.9 mg/dL (8.5-10.1); CHLORIDE 91 mmol/L (98-107); CREATININE 0.6 mg/dL (0.55-1.3); GLUCOSE,RANDOM 297 mg/dL (74-106); POTASSIUM 3.1 mmol/L (3.5-5.1); SODIUM 134 mmol/L (136-145)
[2018-04-21 17:49] LABS: ANION GAP 10 MMOL/L (8-16); CO2 33 mmol/L (21-32)
[2018-04-21] MEDS ORDERED: INSULIN (NOVOLOG) ASPART 100 UNITS/ML 10ML VIAL ONE ×2 (20:51→21:52)
[2018-04-21] MEDS: FAT EMULSIONS 250 ML IV SCH (21:13)
[2018-04-22] MEDS: ACETAMINOPHEN 1000 MG/100 ML VIAL (NON FORMULARY) IVPB PRN (00:39)
[2018-04-22] MEDS ORDERED: PT OWN MED DRAWER 7, Y5N ONE ×2 (02:01→08:04)
[2018-04-22] MEDS: AMPICILLIN - 2 GM in SODIUM CHLORIDE 100 ML IVPB SCH ×4 (02:17→23:22)
[2018-04-22] MEDS ORDERED: MORPHINE SULFATE 2 MG/ML VIAL IVPUSH ONE (03:54)
[2018-04-22] MEDS ORDERED: ACETAMINOPHEN 1000 MG/100 ML VIAL (NON FORMULARY) IVPB ONE (04:15)
[2018-04-22] MEDS ORDERED: INSULIN (NOVOLOG) ASPART 100 UNITS/ML 10ML VIAL ONE (06:18)
[2018-04-22] MEDS: INSULIN SLIDING SCALE (NOVOLOG) 1 VIAL SQ SCH ×4 (06:27→23:41)
[2018-04-22] MEDS: ALBUTEROL SO4 2.5/IPRATROPIUM 0.5 INH SOL 3 ML VIAL.NEB. NEB SCH ×4 (07:20→20:00)
[2018-04-22] MEDS: AMINO ACIDS/PROTEIN HYDROLYS 30 ML LIQUID.PKT PO SCH ×2 (07:52→17:02)
[2018-04-22] MEDS ORDERED: DEXTROSE 5%-WATER 100 ML IVPB ONE (08:34)
[2018-04-22] MEDS: CEFTRIAXONE 2 GM in DEXTROSE 5%-WATER 100 ML IVPB SCH (09:16)
[2018-04-22] MEDS: FUROSEMIDE 40 MG/4 ML INJECTABLE VIAL IVPUSH SCH (09:16)
[2018-04-22] MEDS: NITROGLYCERIN 0.1 MG/HOUR TD PATCH TD SCH (09:17)
[2018-04-22] MEDS: POLYETHYLENE GLYCOL 3350 119 GM BTL PO SCH (09:17)
[2018-04-22] MEDS: SILVER SULFADIAZINE 1% TOP CREAM 50 GM JAR TP SCH ×2 (09:17→23:24)
--- NOTE | 2018-04-22 12:05 | PN ---
Progress Note (short form) - Note Progress Note: Pt awake no distress Vital Signs - 24 hr 04/21/18 04/21/18 04/21/18 13:39 19:16 21:00 Temperature 98.3 F 98.7 F Pulse Rate 107 H 88 Respiratory 20 20 20 Rate Blood Pressure 156/80 151/88 O2 Sat by Pulse 98 Oximetry (%) 04/21/18 04/22/18 04/22/18 22:00 06:05 09:00 Temperature 98.1 F 98.1 F Pulse Rate 88 60 Respiratory 20 20 Rate Blood Pressure 153/81 151/64 O2 Sat by Pulse 100 Oximetry (%) 04/22/18 10:00 Temperature 98.4 F Pulse Rate 74 Respiratory 22 H Rate Blood Pressure 151/77 O2 Sat by Pulse Oximetry (%) Current Medications Generic Name Dose Route Start Last Admin Trade Name Freq PRN Reason Stop Dose Admin Acetaminophen 1,000 mg 04/16/18 14:47 04/22/18 00:39 Ofirmev Injection - IVPB 1,000 mg Q8H PRN Administration FEVER Albuterol/Ipratropium 1 amp 04/18/18 09:30 04/22/18 11:10 Duoneb - NEB 1 amp RQID [facility] Administration Amino Acids 30 ml 04/20/18 17:30 04/22/18 07:52 Prosource No Carb Liquid Pkt PO 30 ml BID@0800,1730 [facility] Administration Furosemide 40 mg 04/19/18 12:15 04/22/18 09:16 Lasix Injection - IVPUSH 40 mg DAILY [facility] Administration IV Flush 4 ml 04/20/18 11:36 Triple Lumen Flush IVPUSH PRN PRN Protocol Metronidazole 500 mg in 100 mls @ 100 mls/hr 04/14/18 15:45 04/22/18 09:16 Flagyl 500mg Premixed Ivpb - IVPB 100 mls/hr Q8H-IV [facility] Administration Ampicillin Sodium 2 gm/ Sodium 100 mls @ 200 mls/hr 04/17/18 15:00 04/22/18 08:06 Chloride IVPB 200 mls/hr Q6H-IV [facility] Administration Protocol Fat Emulsion Intravenous 250 mls @ 20.833 mls/hr 04/18/18 22:00 04/21/18 21: 13 Intralipid - IV 20.833 mls/hr DAILY@2200 [facility] Administration Ceftriaxone Sodium 2 gm/ 100 mls @ 200 mls/hr 04/19/18 11:15 04/22/18 09:16 Dextrose IVPB 200 mls/hr DAILY [facility] Administration Protocol Potassium Chloride 20 meq/ 1,010 mls @ 50 mls/hr 04/22/18 13:00 Amino Acids IVPB Q20H [facility] Insulin Aspart 1 vial 04/13/18 22:00 04/22/18 10:58 Novolog Vial Sliding Scale - SQ 6 units ACHS [facility] Administration Protocol Insulin Detemir 10 units 04/21/18 10:20 04/21/18 22:12 Levemir Vial SQ 10 units HS [facility] Administration Metoprolol Tartrate 5 mg 04/16/18 12:36 Lopressor Injection - IVPUSH Q8H PRN HYPERTENSION Nitroglycerin 0.1 mg 04/16/18 13:00 04/22/18 09:17 Nitro-Dur Patch - TD 0.1 mg DAILY [facility] Administration Polyethylene Glycol 17 gm 04/19/18 12:30 04/22/18 09:17 Miralax (For Daily Use) - PO 17 grams DAILY [facility] Administration Silver Sulfadiazine 1 applic 04/19/18 12:15 04/22/18 09:17 Silvadene - TP 1 applic BID [facility] Administration Laboratory Results - last 24 hr 04/21/18 04/21/18 04/21/18 16:23 16:30 20:45 Sodium 134 L Potassium 3.1 L Chloride 91 L Carbon Dioxide 33 H Anion Gap 10 BUN 8 Creatinine 0.6 Creat Clearance w eGFR > 60 POC Glucometer 270 290 Random Glucose 297 H Calcium 7.9 L 04/22/18 04/22/18 06:09 10:57 Sodium Potassium Chloride Carbon Dioxide Anion Gap BUN Creatinine Creat Clearance w eGFR POC Glucometer 291 284 Random Glucose Calcium S1 S2 Irregular Lungs decreased breath sounds Abd-soft, NT, decreased drainage from wound dehiscence No edema stage 2 sacrum , no yellowish discharge PLAN recheck labs iv antibiotics iv lasix daily- monitor renal function place potassium in Clinimix increase Levemir Problem List - Problems (1) Biliary sepsis Code(s): K83.09 - OTHER CHOLANGITIS (2) Sepsis Code(s): A41.9 - SEPSIS, UNSPECIFIED ORGANISM (3) Severe sepsis Code(s): A41.9 - SEPSIS, UNSPECIFIED ORGANISM; R65.20 - SEVERE SEPSIS WITHOUT SEPTIC SHOCK (4) Abdominal pain Code(s): R10.9 - UNSPECIFIED ABDOMINAL PAIN
[2018-04-22 12:58] LABS: ANION GAP 11 MMOL/L (8-16); BLOOD UREA NITROGEN 8 mg/dL (7-18); CALCIUM 7.8 mg/dL (8.5-10.1); CHLORIDE 92 mmol/L (98-107); CO2 29 mmol/L (21-32); CREATININE 0.7 mg/dL (0.55-1.3); MAGNESIUM 1.3 mg/dL (1.8-2.4); POTASSIUM 3.4 mmol/L (3.5-5.1); SODIUM 131 mmol/L (136-145)
[2018-04-22 13:01] LABS: GLUCOSE,RANDOM 304 mg/dL (74-106)
[2018-04-22] MEDS: POTASSIUM CHLORIDE 20 MEQ in AMINO ACIDS 4.25%/D5W 1,000 ML IVPB SCH (13:21)
[2018-04-22] MEDS ORDERED: MAGNESIUM SULF 50% (8.12 MEQ/2 ML-1 GM VIAL) IVPB ONE (14:00)
[2018-04-22] MEDS: MORPHINE SULFATE 2 MG/ML VIAL IVPUSH PRN ×2 (14:19→23:23)
[2018-04-22] MEDS: FAT EMULSIONS 250 ML IV SCH (23:23)
[2018-04-22] MEDS: INSULIN (LEVEMIR) 100 UNITS/ML UNITS SQ SCH (23:23)
[2018-04-23] MEDS: ACETAMINOPHEN 1000 MG/100 ML VIAL (NON FORMULARY) IVPB PRN (01:16)
[2018-04-23] MEDS: AMPICILLIN - 2 GM in SODIUM CHLORIDE 100 ML IVPB SCH ×4 (02:27→22:16)
[2018-04-23] MEDS: INSULIN SLIDING SCALE (NOVOLOG) 1 VIAL SQ SCH ×4 (06:53→22:18)
[2018-04-23] MEDS: ALBUTEROL SO4 2.5/IPRATROPIUM 0.5 INH SOL 3 ML VIAL.NEB. NEB SCH ×4 (07:15→20:19)
[2018-04-23 07:54] LABS: ANION GAP 8 MMOL/L (8-16); BLOOD UREA NITROGEN 10 mg/dL (7-18); CALCIUM 8.1 mg/dL (8.5-10.1); CHLORIDE 92 mmol/L (98-107); CO2 33 mmol/L (21-32); CREATININE 0.6 mg/dL (0.55-1.3); GLUCOSE,RANDOM 254 mg/dL (74-106); MAGNESIUM 1.7 mg/dL (1.8-2.4); POTASSIUM 3.1 mmol/L (3.5-5.1); SODIUM 133 mmol/L (136-145)
[2018-04-23] MEDS ORDERED: PT OWN MED DRAWER 7, Y5N ONE ×2 (08:20→08:36)
[2018-04-23] MEDS: AMINO ACIDS/PROTEIN HYDROLYS 30 ML LIQUID.PKT PO SCH ×2 (08:21→16:31)
[2018-04-23] MEDS ORDERED: DEXTROSE 5%-WATER 100 ML IVPB ONE (08:36)
--- NOTE | 2018-04-23 08:51 | PN ---
Progress Note (short form) - Note Progress Note: Pt awake no distress Vital Signs - 24 hr 04/22/18 04/22/18 04/22/18 09:00 10:00 14:38 Temperature 98.4 F 97.9 F Pulse Rate 74 65 Respiratory 22 H 20 Rate Blood Pressure 151/77 149/70 O2 Sat by Pulse 100 Oximetry (%) 04/22/18 04/22/18 04/23/18 21:00 22:00 01:26 Temperature 98.9 F 100.0 F H Pulse Rate 88 91 H Respiratory 20 20 Rate Blood Pressure 149/82 156/84 O2 Sat by Pulse 100 Oximetry (%) 04/23/18 04/23/18 02:10 05:58 Temperature 98.5 F 98.0 F Pulse Rate 100 H Respiratory 20 Rate Blood Pressure 149/87 O2 Sat by Pulse Oximetry (%) Current Medications Generic Name Dose Route Start Last Admin Trade Name Freq PRN Reason Stop Dose Admin Acetaminophen 1,000 mg 04/16/18 14:47 04/23/18 01:16 Ofirmev Injection - IVPB 1,000 mg Q8H PRN Administration FEVER Albuterol/Ipratropium 1 amp 04/23/18 08:00 04/23/18 07:15 Duoneb - NEB 1 amp RQID [facility] Administration Amino Acids 30 ml 04/20/18 17:30 04/23/18 08:21 Prosource No Carb Liquid Pkt PO 30 ml BID@0800,1730 [facility] Administration Furosemide 40 mg 04/19/18 12:15 04/22/18 09:16 Lasix Injection - IVPUSH 40 mg DAILY [facility] Administration IV Flush 4 ml 04/20/18 11:36 Triple Lumen Flush IVPUSH PRN PRN Protocol Metronidazole 500 mg in 100 mls @ 100 mls/hr 04/14/18 15:45 04/23/18 01:17 Flagyl 500mg Premixed Ivpb - IVPB 100 mls/hr Q8H-IV [facility] Administration Ampicillin Sodium 2 gm/ Sodium 100 mls @ 200 mls/hr 04/17/18 15:00 04/23/18 08:21 Chloride IVPB 200 mls/hr Q6H-IV [facility] Administration Protocol Fat Emulsion Intravenous 250 mls @ 20.833 mls/hr 04/18/18 22:00 04/22/18 23: 23 Intralipid - IV 20.833 mls/hr DAILY@2200 [facility] Administration Ceftriaxone Sodium 2 gm/ 100 mls @ 200 mls/hr 04/19/18 11:15 04/22/18 09:16 Dextrose IVPB 200 mls/hr DAILY [facility] Administration Protocol Potassium Chloride 20 meq/ 1,010 mls @ 50 mls/hr 04/22/18 13:00 04/22/18 13: 21 Amino Acids IVPB 50 mls/hr Q20H [facility] Administration Magnesium Sulfate/Dextrose 2 200 mls @ 100 mls/hr 04/23/18 08:50 gm/ Miscellaneous IVPB 04/23/18 10:49 ONCE ONE Potassium Chloride 10 meq in 100 mls @ 100 mls/hr 04/23/18 09:00 Potassium Chloride 10 Meq Premix Ivpb - IVPB 04/23/18 10:59 Q60M [facility] Insulin Aspart 1 vial 04/13/18 22:00 04/23/18 06:53 Novolog Vial Sliding Scale - SQ 6 units ACHS [facility] Administration Protocol Insulin Detemir 12 units 04/22/18 12:13 04/22/18 23:23 Levemir Vial SQ 12 units HS [facility] Administration Metoprolol Tartrate 5 mg 04/16/18 12:36 Lopressor Injection - IVPUSH Q8H PRN HYPERTENSION Morphine Sulfate 1 mg 04/22/18 12:30 04/22/18 23:23 Morphine Sulfate IVPUSH 1 mg Q4H PRN Administration PAIN LEVEL 6-10 Nitroglycerin 0.1 mg 04/16/18 13:00 04/22/18 09:17 Nitro-Dur Patch - TD 0.1 mg DAILY [facility] Administration Polyethylene Glycol 17 gm 04/19/18 12:30 04/22/18 09:17 Miralax (For Daily Use) - PO 17 grams DAILY [facility] Administration Silver Sulfadiazine 1 applic 04/19/18 12:15 04/22/18 23:24 Silvadene - TP 1 applic BID [facility] Administration Laboratory Results - last 24 hr 04/22/18 04/22/18 04/22/18 10:57 12:30 16:19 Sodium 131 L Potassium 3.4 L Chloride 92 L Carbon Dioxide 29 Anion Gap 11 BUN 8 Creatinine 0.7 Creat Clearance w eGFR > 60 POC Glucometer 284 349 Random Glucose 304 H* Calcium 7.8 L Magnesium 1.3 L 04/22/18 04/23/18 04/23/18 23:40 06:00 06:52 Sodium 133 L Potassium 3.1 L Chloride 92 L Carbon Dioxide 33 H Anion Gap 8 BUN 10 Creatinine 0.6 Creat Clearance w eGFR > 60 POC Glucometer 344 286 Random Glucose 254 H Calcium 8.1 L Magnesium 1.7 L S1 S2 Irregular Lungs decreased breath sounds Abd-soft, NT, decreased drainage from wound dehiscence No edema stage 2 sacrum , no yellowish discharge drain-- less fluid drained PLAN replace lytes iv antibiotics iv lasix daily- monitor renal function examined pt with ID to speak with IR tomorrow about removing the drain- will need to re-image first pt has TLC Problem List - Problems (1) Biliary sepsis Code(s): K83.09 - OTHER CHOLANGITIS (2) Sepsis Code(s): A41.9 - SEPSIS, UNSPECIFIED ORGANISM (3) Severe sepsis Code(s): A41.9 - SEPSIS, UNSPECIFIED ORGANISM; R65.20 - SEVERE SEPSIS WITHOUT SEPTIC SHOCK (4) Abdominal pain Code(s): R10.9 - UNSPECIFIED ABDOMINAL PAIN
--- NOTE | 2018-04-23 09:23 | PN ---
Progress Note (short form) - Note Progress Note: more alert NAD Vital Signs Period Temp Pulse Resp BP Sys/Pham Pulse Ox Last 24 Hr 97.9 F-100.0 F 65-100 20-22 149-156/70-87 100 cor-rrr lungs clear abd soft,nt minimal green drainage in calin drain abdominal wound clean, no erythema, no odor ext no edema CBC, BMP 04/20/18 06:15 04/23/18 06:00 Microbiology 04/14/18 11:45 Cholecystectomy Fluid AFB Smear Concentration - Final 04/14/18 11:45 Cholecystectomy Fluid Mycobacterial Culture - Preliminary 04/13/18 11:40 Blood - Peripheral Venous Blood Culture - Final NO GROWTH AFTER 5 DAYS INCUBATION 04/13/18 11:40 Blood - Peripheral Venous Blood Culture - Final Staph Hominis Sub Sp Hominis 04/14/18 11:45 Cholecystectomy Fluid Gram Stain - Final 04/14/18 11:45 Cholecystectomy Fluid Body Fluid Culture - Final NO GROWTH OF AEROBIC ORGANISMS AFTER 48 HOURS INCUBATION 04/14/18 11:45 Cholecystectomy Fluid Anaerobic Culture - Final NO ANAEROBES WERE ISOLATED 04/13/18 11:40 Abdomen Gram Stain - Final 04/13/18 11:40 Abdomen Wound Culture - Final Escherichia Coli Staphylococcus Coagulase Neg Vr Ec Faecalis 04/14/18 11:45 Cholecystectomy Fluid SAMUEL Preparation - Preliminary 04/14/18 11:45 Cholecystectomy Fluid Fungal Culture - Preliminary 04/13/18 11:50 Urine - Urine - Catheterized Urine Culture - Final NO GROWTH OBTAINED a/p infected wound-improved VRE- contact isolation continued drainage from RUQ- ?abscess-improving s/p colectomy for volvolus day #10 antibiotics would speak with IR about repeat imaging in am hope to d/c antibiotics next 24-48 hours d/w PMD continue contact isolation Problem List - Problems (1) Sepsis Code(s): A41.9 - SEPSIS, UNSPECIFIED ORGANISM (2) Biliary sepsis Code(s): K83.09 - OTHER CHOLANGITIS (3) Wound infection after surgery Code(s): T81.49XA - INFECTION FOLLOWING A PROCEDURE, OTHER SURGICAL SITE, INIT (4) History of open sigmoidectomy Code(s): Z98.890 - OTHER SPECIFIED POSTPROCEDURAL STATES; Z90.49 - ACQUIRED ABSENCE OF OTHER SPECIFIED PARTS OF DIGESTIVE TRACT
[2018-04-23] MEDS ORDERED: MAGNESIUM SULF 50% (8.12 MEQ/2 ML-1 GM VIAL) IVPB ONE (09:30)
[2018-04-23] MEDS: CEFTRIAXONE 2 GM in DEXTROSE 5%-WATER 100 ML IVPB SCH (09:36)
[2018-04-23] MEDS: POLYETHYLENE GLYCOL 3350 119 GM BTL PO SCH (09:36)
[2018-04-23] MEDS: FUROSEMIDE 40 MG/4 ML INJECTABLE VIAL IVPUSH SCH (09:36)
[2018-04-23] MEDS: SILVER SULFADIAZINE 1% TOP CREAM 50 GM JAR TP SCH ×2 (09:37→23:26)
[2018-04-23] MEDS: NITROGLYCERIN 0.1 MG/HOUR TD PATCH TD SCH (09:37)
[2018-04-23] MEDS ORDERED: KCL 10 MEQ IVPB 10 MEQ/100 ML INFUS.BAG IVPB ONE ×2 (09:50→10:58)
[2018-04-23] MEDS: KCL 10 MEQ IVPB 10 MEQ/100 ML INFUS.BAG IVPB SCH ×2 (09:57→11:12)
[2018-04-23] MEDS: POTASSIUM CHLORIDE 20 MEQ in AMINO ACIDS 4.25%/D5W 1,000 ML IVPB SCH (10:42)
[2018-04-23] MEDS: MORPHINE SULFATE 2 MG/ML VIAL IVPUSH PRN ×2 (17:20→22:19)
[2018-04-23] MEDS: FAT EMULSIONS 250 ML IV SCH (22:17)
[2018-04-23] MEDS: INSULIN (LEVEMIR) 100 UNITS/ML UNITS SQ SCH (22:19)
[2018-04-24] MEDS: AMPICILLIN - 2 GM in SODIUM CHLORIDE 100 ML IVPB SCH ×4 (03:20→21:59)
[2018-04-24] MEDS: POTASSIUM CHLORIDE 20 MEQ in AMINO ACIDS 4.25%/D5W 1,000 ML IVPB SCH (04:08)
[2018-04-24] MEDS: INSULIN SLIDING SCALE (NOVOLOG) 1 VIAL SQ SCH ×4 (06:16→22:07)
[2018-04-24] MEDS: ALBUTEROL SO4 2.5/IPRATROPIUM 0.5 INH SOL 3 ML VIAL.NEB. NEB SCH ×4 (07:20→20:53)
[2018-04-24 07:29] LABS: BASO % 0.4 % (0-2.0); EOS % 2.3 % (0-4.5); HEMATOCRIT 26.2 % (35.4-49); HEMOGLOBIN 8.9 GM/dL (11.7-16.9); LYMPH % 27.1 % (8-40); MCH 30.2 pg (25.7-33.7); MEAN CELL VOLUME 88.8 fl (80-96); MONO % 9.9 % (3.8-10.2); NEUT % 60.3 % (42.8-82.8); PLATELET COUNT 303 K/MM3 (134-434); RBC 2.95 M/mm3 (4.00-5.60); RDW 16.8 % (11.9-15.9); WHITE BLOOD COUNT 9.8 K/mm3 (4.0-10.0)
[2018-04-24 07:57] LABS: ANION GAP 6 MMOL/L (8-16); BLOOD UREA NITROGEN 9 mg/dL (7-18); CALCIUM 7.9 mg/dL (8.5-10.1); CHLORIDE 92 mmol/L (98-107); CO2 35 mmol/L (21-32); CREATININE 0.5 mg/dL (0.55-1.3); GLUCOSE,RANDOM 266 mg/dL (74-106); MAGNESIUM 1.9 mg/dL (1.8-2.4); POTASSIUM 3.3 mmol/L (3.5-5.1); SODIUM 133 mmol/L (136-145)
[2018-04-24] MEDS ORDERED: POTASSIUM CHLORIDE ORAL LIQUID 20 MEQ/15 ML PO ONE (10:00)
--- NOTE | 2018-04-24 11:35 | PN ---
Progress Note (short form) - Note Progress Note: pt seen/ examined chart reviewed drowsy but arousable No distress chronic ill appearance All follow-ups noted afebrile Vital Signs Temp 98.4 F 04/24/18 06:00 Pulse 90 04/24/18 06:30 Resp 20 04/24/18 06:30 BP 159/60 04/24/18 06:30 Pulse Ox 96 04/23/18 21:00 Intake & Output 04/23/18 04/23/18 04/24/18 11:59 23:59 11:59 Intake Total 695 2040 550 Output Total 700 Balance 695 1340 550 Intake: IVPB 500 1200 500 Oral 50 550 50 Lipid 145 290 Output: Drainage 0 Right Abdomen 0 Urine 700 Davis 700 Other: Voiding Method External Catheter External Catheter External Catheter # Unmeasured Voids Davis 2 Bowel Movement No Active Medications Acetaminophen (Ofirmev Injection -) 1,000 mg IVPB Q8H PRN PRN Reason: FEVER Last Admin: 04/23/18 01:16 Dose: 1,000 mg Albuterol/Ipratropium (Duoneb -) 1 amp NEB RQID [facility] Last Admin: 04/24/18 07:20 Dose: 1 amp Amino Acids (Prosource No Carb Liquid Pkt) 30 ml PO BID@0800,1730 [facility] Last Admin: 04/23/18 16:31 Dose: 30 ml Furosemide (Lasix Injection -) 40 mg IVPUSH DAILY [facility] Last Admin: 04/23/18 09:36 Dose: 40 mg IV Flush (Triple Lumen Flush) 4 ml IVPUSH PRN PRN PRN Reason: Protocol Metronidazole (Flagyl 500mg Premixed Ivpb -) 500 mg in 100 mls @ 100 mls/hr IVPB Q8H-IV [facility] Last Admin: 04/24/18 02:09 Dose: 100 mls/hr Ampicillin Sodium 2 gm/ Sodium (Chloride) 100 mls @ 200 mls/hr IVPB Q6H-IV [facility] ; Protocol Last Admin: 04/24/18 03:20 Dose: 200 mls/hr Fat Emulsion Intravenous (Intralipid -) 250 mls @ 20.833 mls/hr IV DAILY@2200 [facility] Last Admin: 04/23/18 22:17 Dose: 20.833 mls/hr Ceftriaxone Sodium 2 gm/ (Dextrose) 100 mls @ 200 mls/hr IVPB DAILY [facility]; Protocol Last Admin: 04/23/18 09:36 Dose: 200 mls/hr Potassium Chloride 20 meq/ (Amino Acids) 1,010 mls @ 50 mls/hr IVPB Q20H [facility] Last Admin: 04/24/18 04:08 Dose: 50 mls/hr Insulin Aspart (Novolog Vial Sliding Scale -) 1 vial SQ ACHS [facility]; Protocol Last Admin: 04/24/18 06:16 Dose: 6 units Insulin Detemir (Levemir Vial) 16 units SQ HS [facility] Metoprolol Tartrate (Lopressor Injection -) 5 mg IVPUSH Q8H PRN PRN Reason: HYPERTENSION Morphine Sulfate (Morphine Sulfate) 1 mg IVPUSH Q4H PRN PRN Reason: PAIN LEVEL 6-10 Last Admin: 04/23/18 22:19 Dose: 1 mg Nitroglycerin (Nitro-Dur Patch -) 0.1 mg TD DAILY [facility] Last Admin: 04/23/18 09:37 Dose: 0.1 mg Polyethylene Glycol (Miralax (For Daily Use) -) 17 gm PO DAILY [facility] Last Admin: 04/23/18 09:36 Dose: 17 grams Potassium Chloride (K-Dur -) 20 meq PO DAILY [facility] Silver Sulfadiazine (Silvadene -) 1 applic TP BID [facility] Last Admin: 04/23/18 23:26 Dose: 1 applic CBC, BMP 04/24/18 06:15 04/24/18 06:15 Abnormal Lab Results 04/24/18 04/24/18 06:15 06:15 RBC 2.95 L Hgb 8.9 L Hct 26.2 L RDW 16.8 H Sodium 133 L Potassium 3.3 L Chloride 92 L Carbon Dioxide 35 H Anion Gap 6 L Creatinine 0.5 L Random Glucose 266 H Calcium 7.9 L Physical exam drowsy but arousable S1 S2 Irregular Lungs decreased breath sounds Abd-soft, NT, decreased drainage from wound dehiscence No edema stage 2 sacrum , no yellowish discharge drain-- less fluid drained PLAN Overall condition essentially same--- slight improvement replace lytes iv antibiotics iv lasix daily- monitor renal function monitor lites Will follow Problem List - Problems (1) Biliary sepsis Code(s): K83.09 - OTHER CHOLANGITIS (2) Wound infection after surgery Code(s): T81.49XA - INFECTION FOLLOWING A PROCEDURE, OTHER SURGICAL SITE, INIT (3) H/O: CVA (cerebrovascular accident) Code(s): Z86.73 - PRSNL HX OF TIA (TIA), AND CEREB INFRC W/O RESID DEFICITS (4) Hypokalemia Code(s): E87.6 - HYPOKALEMIA
[2018-04-24] MEDS ORDERED: DEXTROSE 5%-WATER 100 ML IVPB ONE (11:50)
[2018-04-24] MEDS ORDERED: PT OWN MED DRAWER 7, Y5N ONE ×2 (11:51→21:00)
[2018-04-24] MEDS: SILVER SULFADIAZINE 1% TOP CREAM 50 GM JAR TP SCH ×2 (12:10→21:59)
[2018-04-24] MEDS: CEFTRIAXONE 2 GM in DEXTROSE 5%-WATER 100 ML IVPB SCH (12:10)
[2018-04-24] MEDS: FUROSEMIDE 40 MG/4 ML INJECTABLE VIAL IVPUSH SCH (12:10)
[2018-04-24] MEDS: NITROGLYCERIN 0.1 MG/HOUR TD PATCH TD SCH (12:11)
[2018-04-24] MEDS: POLYETHYLENE GLYCOL 3350 119 GM BTL PO SCH (12:11)
[2018-04-24] MEDS: POTASSIUM CHLORIDE TABS 10 MEQ TABLET.ER (FP) PO SCH (12:11)
[2018-04-24] MEDS: AMINO ACIDS/PROTEIN HYDROLYS 30 ML LIQUID.PKT PO SCH ×2 (12:12→18:15)
[2018-04-24] MEDS ORDERED: INSULIN (NOVOLOG) ASPART 100 UNITS/ML 10ML VIAL ONE (18:01)
[2018-04-24] MEDS: INSULIN (LEVEMIR) 100 UNITS/ML UNITS SQ SCH (22:07)
[2018-04-25] MEDS: FAT EMULSIONS 250 ML IV SCH ×2 (00:24→21:26)
[2018-04-25] MEDS: POTASSIUM CHLORIDE 20 MEQ in AMINO ACIDS 4.25%/D5W 1,000 ML IVPB SCH ×2 (01:18→21:11)
[2018-04-25] MEDS: MORPHINE SULFATE 2 MG/ML VIAL IVPUSH PRN (01:28)
[2018-04-25] MEDS ORDERED: PT OWN MED DRAWER 7, Y5N ONE ×4 (02:47→21:09)
[2018-04-25] MEDS: AMPICILLIN - 2 GM in SODIUM CHLORIDE 100 ML IVPB SCH ×4 (02:49→21:11)
[2018-04-25] MEDS: INSULIN SLIDING SCALE (NOVOLOG) 1 VIAL SQ SCH ×4 (06:51→21:23)
[2018-04-25 07:24] LABS: BASO % 0.5 % (0-2.0); EOS % 2.1 % (0-4.5); HEMOGLOBIN 9.2 GM/dL (11.7-16.9); LYMPH % 32.7 % (8-40); MCH 30.2 pg (25.7-33.7); MCHC 33.9 g/dl (32.0-35.9); MEAN PLT VOLUME 8.2 fl (7.5-11.1); MONO % 10.1 % (3.8-10.2); NEUT % 54.6 % (42.8-82.8); PLATELET COUNT 317 K/MM3 (134-434); RBC 3.04 M/mm3 (4.00-5.60); RDW 16.4 % (11.9-15.9); WHITE BLOOD COUNT 9.5 K/mm3 (4.0-10.0)
[2018-04-25] MEDS: ALBUTEROL SO4 2.5/IPRATROPIUM 0.5 INH SOL 3 ML VIAL.NEB. NEB SCH ×4 (07:35→20:40)
[2018-04-25] MEDS: AMINO ACIDS/PROTEIN HYDROLYS 30 ML LIQUID.PKT PO SCH ×2 (07:45→16:47)
[2018-04-25 08:11] LABS: ALBUMIN 1.9 g/dl (3.4-5.0); ALK PHOS 89 U/L (45-117); ANION GAP 7 MMOL/L (8-16); BILIRUBIN,TOTAL 0.3 mg/dL (0.2-1); BLOOD UREA NITROGEN 12 mg/dL (7-18); CHLORIDE 94 mmol/L (98-107); CO2 33 mmol/L (21-32); CREATININE 0.6 mg/dL (0.55-1.3); GLUCOSE,RANDOM 251 mg/dL (74-106); POTASSIUM 3.4 mmol/L (3.5-5.1); SGOT/AST 20 U/L (15-37); SGPT/ALT 15 U/L (13-61); SODIUM 135 mmol/L (136-145); TOT PROT 6.5 g/dl (6.4-8.2)
[2018-04-25] MEDS ORDERED: INSULIN (NOVOLOG) ASPART 100 UNITS/ML 10ML VIAL ONE ×3 (08:38→16:35)
[2018-04-25] MEDS ORDERED: DEXTROSE 5%-WATER 100 ML IVPB ONE (08:43)
[2018-04-25] MEDS: CEFTRIAXONE 2 GM in DEXTROSE 5%-WATER 100 ML IVPB SCH (09:43)
[2018-04-25] MEDS: POTASSIUM CHLORIDE TABS 10 MEQ TABLET.ER (FP) PO SCH (09:44)
[2018-04-25] MEDS: SILVER SULFADIAZINE 1% TOP CREAM 50 GM JAR TP SCH ×2 (09:44→21:23)
[2018-04-25] MEDS: POLYETHYLENE GLYCOL 3350 119 GM BTL PO SCH (09:44)
[2018-04-25] MEDS: NITROGLYCERIN 0.1 MG/HOUR TD PATCH TD SCH (09:44)
[2018-04-25] MEDS: FUROSEMIDE 40 MG/4 ML INJECTABLE VIAL IVPUSH SCH (09:44)
[2018-04-25] MEDS ORDERED: KCL 10 MEQ IVPB 10 MEQ/100 ML INFUS.BAG IVPB SCH (13:00)
--- NOTE | 2018-04-25 13:00 | PN ---
Progress Note (short form) - Note Progress Note: Pt awake no distress Vital Signs - 24 hr 04/24/18 04/24/18 04/24/18 14:31 18:58 21:00 Temperature 99.4 F 97.6 F Pulse Rate 108 H 114 H Respiratory 20 20 22 H Rate Blood Pressure 133/82 130/73 O2 Sat by Pulse Oximetry (%) 04/24/18 04/25/18 04/25/18 22:00 01:54 05:37 Temperature 98 F 98.1 F 98.4 F Pulse Rate 109 H 112 H 111 H Respiratory 22 H 22 H 18 Rate Blood Pressure 145/78 145/71 149/90 O2 Sat by Pulse Oximetry (%) 04/25/18 04/25/18 09:00 10:00 Temperature 98.7 F Pulse Rate 67 Respiratory 18 Rate Blood Pressure 134/90 O2 Sat by Pulse 95 Oximetry (%) Current Medications Generic Name Dose Route Start Last Admin Trade Name Freq PRN Reason Stop Dose Admin Acetaminophen 1,000 mg 04/16/18 14:47 04/23/18 01:16 Ofirmev Injection - IVPB 1,000 mg Q8H PRN Administration FEVER Albuterol/Ipratropium 1 amp 04/23/18 08:00 04/25/18 12:09 Duoneb - NEB 1 amp RQID [facility] Administration Amino Acids 30 ml 04/20/18 17:30 04/25/18 07:45 Prosource No Carb Liquid Pkt PO 30 ml BID@0800,1730 [facility] Administration Furosemide 40 mg 04/19/18 12:15 04/25/18 09:44 Lasix Injection - IVPUSH 40 mg DAILY [facility] Administration IV Flush 4 ml 04/20/18 11:36 04/25/18 05:33 Triple Lumen Flush IVPUSH 4 ml PRN PRN Administration Protocol Metronidazole 500 mg in 100 mls @ 100 mls/hr 04/14/18 15:45 04/25/18 09:43 Flagyl 500mg Premixed Ivpb - IVPB 100 mls/hr Q8H-IV [facility] Administration Ampicillin Sodium 2 gm/ Sodium 100 mls @ 200 mls/hr 04/17/18 15:00 04/25/18 08:16 Chloride IVPB 200 mls/hr Q6H-IV [facility] Administration Protocol Fat Emulsion Intravenous 250 mls @ 20.833 mls/hr 04/18/18 22:00 04/25/18 00: 24 Intralipid - IV 20.833 mls/hr DAILY@2200 [facility] Administration Ceftriaxone Sodium 2 gm/ 100 mls @ 200 mls/hr 04/19/18 11:15 04/25/18 09:43 Dextrose IVPB 200 mls/hr DAILY [facility] Administration Protocol Potassium Chloride 20 meq/ 1,010 mls @ 50 mls/hr 04/22/18 13:00 04/25/18 01: 18 Amino Acids IVPB 50 mls/hr Q20H [facility] Administration Insulin Aspart 1 vial 04/13/18 22:00 04/25/18 11:18 Novolog Vial Sliding Scale - SQ 8 units ACHS [facility] Administration Protocol Insulin Detemir 16 units 04/24/18 22:00 04/24/18 22:07 Levemir Vial SQ 16 units HS [facility] Administration Metoprolol Tartrate 5 mg 04/16/18 12:36 Lopressor Injection - IVPUSH Q8H PRN HYPERTENSION Nitroglycerin 0.1 mg 04/16/18 13:00 04/25/18 09:44 Nitro-Dur Patch - TD 0.1 mg DAILY [facility] Administration Polyethylene Glycol 17 gm 04/19/18 12:30 04/25/18 09:44 Miralax (For Daily Use) - PO 17 grams DAILY [facility] Administration Potassium Chloride 20 meq 04/24/18 11:45 04/25/18 09:44 K-Dur - PO 20 meq DAILY [facility] Administration Silver Sulfadiazine 1 applic 04/19/18 12:15 04/25/18 09:44 Silvadene - TP 1 applic BID [facility] Administration Laboratory Results - last 24 hr 04/24/18 04/25/18 04/25/18 22:05 05:33 05:35 WBC 9.5 RBC 3.04 L Hgb 9.2 L Hct 27.0 L MCV 89.0 MCH 30.2 MCHC 33.9 RDW 16.4 H Plt Count 317 MPV 8.2 Absolute Neuts (auto) 5.2 Neutrophils % 54.6 Lymphocytes % 32.7 D Monocytes % 10.1 Eosinophils % 2.1 Basophils % 0.5 Nucleated RBC % 0 Sodium Potassium Chloride Carbon Dioxide Anion Gap BUN Creatinine Creat Clearance w eGFR POC Glucometer 349 262 Random Glucose Calcium Total Bilirubin AST ALT Alkaline Phosphatase Total Protein Albumin 04/25/18 04/25/18 05:35 11:17 WBC RBC Hgb Hct MCV MCH MCHC RDW Plt Count MPV Absolute Neuts (auto) Neutrophils % Lymphocytes % Monocytes % Eosinophils % Basophils % Nucleated RBC % Sodium 135 L Potassium 3.4 L Chloride 94 L Carbon Dioxide 33 H Anion Gap 7 L BUN 12 Creatinine 0.6 Creat Clearance w eGFR > 60 POC Glucometer 328 Random Glucose 251 H Calcium 8.0 L Total Bilirubin 0.3 AST 20 ALT 15 Alkaline Phosphatase 89 Total Protein 6.5 Albumin 1.9 L S1 S2 Irregular Lungs decreased breath sounds Abd-soft, NT, decreased drainage from wound dehiscence No edema stage 2 sacrum , no yellowish discharge drain-- less fluid drained PLAN replace lytes iv antibiotics iv lasix daily- monitor renal function examined pt with ID to speak with IR tomorrow about removing the drain- will need to re-image first pt has TLC Problem List - Problems (1) Biliary sepsis Code(s): K83.09 - OTHER CHOLANGITIS (2) Sepsis Code(s): A41.9 - SEPSIS, UNSPECIFIED ORGANISM (3) Severe sepsis Code(s): A41.9 - SEPSIS, UNSPECIFIED ORGANISM; R65.20 - SEVERE SEPSIS WITHOUT SEPTIC SHOCK (4) Abdominal pain Code(s): R10.9 - UNSPECIFIED ABDOMINAL PAIN
[2018-04-25] MEDS ORDERED: MORPHINE SULFATE 2 MG/ML VIAL IVPUSH PRN (13:37)
[2018-04-25] MEDS: INSULIN (LEVEMIR) 100 UNITS/ML UNITS SQ SCH (21:23)
[2018-04-26] MEDS ORDERED: PT OWN MED DRAWER 7, Y5N ONE (03:45)
[2018-04-26] MEDS: AMPICILLIN - 2 GM in SODIUM CHLORIDE 100 ML IVPB SCH ×2 (03:48→11:03)
[2018-04-26 06:52] LABS: HEMATOCRIT 27.3 % (35.4-49); HEMOGLOBIN 9.3 GM/dL (11.7-16.9); MCH 30.1 pg (25.7-33.7); MCHC 34.2 g/dl (32.0-35.9); MEAN CELL VOLUME 88.1 fl (80-96); MEAN PLT VOLUME 8.1 fl (7.5-11.1); PLATELET COUNT 302 K/MM3 (134-434); RDW 17.1 % (11.9-15.9); WHITE BLOOD COUNT 9.2 K/mm3 (4.0-10.0)
[2018-04-26 06:58] LABS: ANION GAP 7 MMOL/L (8-16); BLOOD UREA NITROGEN 10 mg/dL (7-18); CALCIUM 7.7 mg/dL (8.5-10.1); CHLORIDE 96 mmol/L (98-107); CO2 33 mmol/L (21-32); CREATININE 0.5 mg/dL (0.55-1.3); GLUCOSE,RANDOM 227 mg/dL (74-106); MAGNESIUM 1.4 mg/dL (1.8-2.4); POTASSIUM 3.4 mmol/L (3.5-5.1); SODIUM 136 mmol/L (136-145)
[2018-04-26] MEDS: ALBUTEROL SO4 2.5/IPRATROPIUM 0.5 INH SOL 3 ML VIAL.NEB. NEB SCH ×4 (07:01→21:00)
[2018-04-26] MEDS: INSULIN SLIDING SCALE (NOVOLOG) 1 VIAL SQ SCH ×4 (07:10→22:52)
--- NOTE | 2018-04-26 10:28 | PN ---
Progress Note (short form) - Note Progress Note: Pt awake no distress vitals, labs noted S1 S2 Irregular Lungs decreased breath sounds Abd-soft, NT, decreased drainage from wound dehiscence No edema stage 2 sacrum , no yellowish discharge drain-- less fluid drained PLAN replace lytes iv antibiotics iv lasix daily- monitor renal function examined pt with ID dc planning Problem List - Problems (1) Biliary sepsis Code(s): K83.09 - OTHER CHOLANGITIS (2) Sepsis Code(s): A41.9 - SEPSIS, UNSPECIFIED ORGANISM (3) Severe sepsis Code(s): A41.9 - SEPSIS, UNSPECIFIED ORGANISM; R65.20 - SEVERE SEPSIS WITHOUT SEPTIC SHOCK (4) Abdominal pain Code(s): R10.9 - UNSPECIFIED ABDOMINAL PAIN
--- NOTE | 2018-04-26 10:52 | PN ---
Progress Note (short form) - Note Progress Note: more alert NAD eating 75% of his meals! Vital Signs Period Temp Pulse Resp BP Sys/Pham Pulse Ox Last 24 Hr 98.2 F-99.6 F 78-107 18-20 144-157/57-99 95 cor-rrr llungs clear abd soft,nt wound open no drainage minimal drainage RUQ tube ext no edema CBC, BMP 04/26/18 05:15 04/26/18 05:15 a/p infected wound-improved VRE- contact isolation continued drainage from RUQ- ?abscess-improving s/p colectomy for volvolus d/w PMD-will d/c antibiotics and observe per IR tube to stay in for now continue contact isolation please call back if needed Problem List - Problems (1) Sepsis Code(s): A41.9 - SEPSIS, UNSPECIFIED ORGANISM (2) Biliary sepsis Code(s): K83.09 - OTHER CHOLANGITIS (3) Wound infection after surgery Code(s): T81.49XA - INFECTION FOLLOWING A PROCEDURE, OTHER SURGICAL SITE, INIT (4) History of open sigmoidectomy Code(s): Z98.890 - OTHER SPECIFIED POSTPROCEDURAL STATES; Z90.49 - ACQUIRED ABSENCE OF OTHER SPECIFIED PARTS OF DIGESTIVE TRACT
[2018-04-26] MEDS ORDERED: MAGNESIUM SULF 50% (8.12 MEQ/2 ML-1 GM VIAL) IVPB ONE (11:00)
[2018-04-26] MEDS: CEFTRIAXONE 2 GM in DEXTROSE 5%-WATER 100 ML IVPB SCH (11:03)
[2018-04-26] MEDS: FUROSEMIDE 40 MG/4 ML INJECTABLE VIAL IVPUSH SCH (12:52)
[2018-04-26] MEDS: AMINO ACIDS/PROTEIN HYDROLYS 30 ML LIQUID.PKT PO SCH ×2 (12:52→17:57)
[2018-04-26] MEDS: SILVER SULFADIAZINE 1% TOP CREAM 50 GM JAR TP SCH ×2 (12:53→22:55)
[2018-04-26] MEDS: KCL 10 MEQ IVPB 10 MEQ/100 ML INFUS.BAG IVPB SCH ×2 (12:53→18:31)
[2018-04-26] MEDS: POTASSIUM CHLORIDE TABS 10 MEQ TABLET.ER (FP) PO SCH (12:54)
[2018-04-26] MEDS: POLYETHYLENE GLYCOL 3350 119 GM BTL PO SCH (12:54)
[2018-04-26] MEDS: NITROGLYCERIN 0.1 MG/HOUR TD PATCH TD SCH (13:04)
[2018-04-26] MEDS: POTASSIUM CHLORIDE 20 MEQ in AMINO ACIDS 4.25%/D5W 1,000 ML IVPB SCH (17:57)
[2018-04-26] MEDS: INSULIN (LEVEMIR) 100 UNITS/ML UNITS SQ SCH (22:51)
[2018-04-27] MEDS ORDERED: METOPROLOL TARTRATE 50 MG TABLET (FP) PO ONE (01:22)
[2018-04-27] MEDS: INSULIN SLIDING SCALE (NOVOLOG) 1 VIAL SQ SCH ×4 (06:47→22:37)
[2018-04-27] MEDS: ALBUTEROL SO4 2.5/IPRATROPIUM 0.5 INH SOL 3 ML VIAL.NEB. NEB SCH ×4 (07:20→20:50)
[2018-04-27] MEDS ORDERED: PT OWN MED DRAWER 7, Y5N ONE (10:11)
[2018-04-27] MEDS: AMINO ACIDS/PROTEIN HYDROLYS 30 ML LIQUID.PKT PO SCH ×2 (10:13→17:47)
[2018-04-27] MEDS: POTASSIUM CHLORIDE TABS 10 MEQ TABLET.ER (FP) PO SCH (10:13)
[2018-04-27] MEDS: POLYETHYLENE GLYCOL 3350 119 GM BTL PO SCH (10:14)
[2018-04-27] MEDS: FUROSEMIDE 40 MG/4 ML INJECTABLE VIAL IVPUSH SCH (10:14)
[2018-04-27] MEDS: NITROGLYCERIN 0.1 MG/HOUR TD PATCH TD SCH (10:14)
[2018-04-27] MEDS: SILVER SULFADIAZINE 1% TOP CREAM 50 GM JAR TP SCH ×2 (10:15→22:40)
--- NOTE | 2018-04-27 11:16 | PN ---
Progress Note (short form) - Note Progress Note: Mr Devi Gr has limited speech and decreased mobility due to previous stroke. He is more bedbound and weak to due to hospitalizations. He is physically unable to go to social security office due to the above reasons. Problem List - Problems (1) Biliary sepsis Code(s): K83.09 - OTHER CHOLANGITIS (2) Sepsis Code(s): A41.9 - SEPSIS, UNSPECIFIED ORGANISM (3) Severe sepsis Code(s): A41.9 - SEPSIS, UNSPECIFIED ORGANISM; R65.20 - SEVERE SEPSIS WITHOUT SEPTIC SHOCK (4) Abdominal pain Code(s): R10.9 - UNSPECIFIED ABDOMINAL PAIN
--- NOTE | 2018-04-27 11:21 | DS ---
Physical Examination Vital Signs: Vital Signs Temperature 99.7 F H 04/27/18 06:34 Pulse Rate 113 H 04/27/18 06:34 Respiratory Rate 20 04/27/18 06:34 Blood Pressure 158/84 04/27/18 06:34 O2 Sat by Pulse Oximetry (%) 95 04/26/18 21:00 Constitutional: Yes: No Distress, Calm Cardiovascular: Yes: Pulse Irregular Respiratory: Yes: Diminished Gastrointestinal: Yes: Normal Bowel Sounds, Soft, Abdomen, Obese. No: Tenderness Edema: Yes Edema: LLE: Trace, RLE: Trace Labs: CBC, BMP 04/26/18 05:15 04/26/18 05:15 Discharge Summary Reason For Visit: SEVERE SEPSIS Current Active Problems Biliary sepsis (Acute) Sepsis (Acute) Severe sepsis (Acute) Wound infection after surgery (Acute) Hospital Course: Admitted for sepsis Found to have fluid collection around gall bladder fossa-- CHRISTIAN drain placed by Interventional radiology . Pt was seen by ID, Surgery- he has purulent drainage from wound dehiscence as well- started on broad spectrum antibiotics pt had poor nutritional intake and clinimix with lipids wwree started , triple lumen catheter was placed for this-- removed today Blood cultures negative clinically improved appetite better pt ate 75% of his food antibiotics dc yesterday meds restarted Eliquis restarted CHRISTIAN drain to be kept in for about 6- 8 weeks, as per IR-- he will need to follow up with interventional radiology for removing CHRISTIAN drain-- will need a CT abdomen prior to removal Stable for dc to [place] as per surgeon- spoke to him yesterday- no further interventions for now, will not have pt undergo elective lap earnestine at this time . Condition: Good - Instructions Referrals: Tyrell Vanegas MD [Primary Care Provider] - [facility] - Home Medications Comprehensive Discharge Medication List: Ambulatory Orders Acetaminophen [Tylenol .Regular Strength -] 650 mg PO Q4H PRN 02/28/18 Albuterol 2.5/Ipratropium 0.5 [Duoneb -] 1 neb IH QID 02/28/18 Ascorbic Acid [Vitamin C -] 500 mg PO DAILY 02/28/18 Atorvastatin Ca [Lipitor] 40 mg PO HS 02/28/18 Ergocalciferol [Vitamin D2] 50,000 unit PO WEEKLY 02/28/18 Insulin (LOG) Aspart [NovoLOG -] 0 units SQ BID 02/28/18 Sennosides [Senna -] 2 tab PO HS 02/28/18 Sennosides/Docusate Sodium [Senexon-S Tablet] 1 each PO HS 02/28/18 Insulin (Levemir) [Levemir Vial] 22 units SQ HS #30 units 03/22/18 Lisinopril [Prinivil] 40 mg PO DAILY #60 tablet 03/22/18 Metoprolol Tartrate [Lopressor -] 50 mg PO BID #60 tablet 03/22/18 Ranitidine [Zantac -] 150 mg PO BID #60 tablet 03/22/18 Insulin Lispro [Humalog Kwikpen U-100] 100 unit SQ 04/13/18 Apixaban [Eliquis] 2.5 mg PO BID #30 tablet 04/27/18 Furosemide [Lasix] 20 mg PO DAILY #30 tablet 04/27/18 Potassium Chloride [K-Dur -] 20 meq PO DAILY #30 tablet.er 04/27/18 Protein Supplement [Prosource] 275 gm PO BID #20 powder 04/27/18
[2018-04-27] MEDS: METOPROLOL TARTRATE 50 MG TABLET (FP) PO SCH ×2 (11:30→22:37)
[2018-04-27] MEDS: INSULIN (LEVEMIR) 100 UNITS/ML UNITS SQ SCH (22:36)
[2018-04-27] MEDS: APIXABAN 2.5 MG TABLET PO SCH (22:37)
[2018-04-28] MEDS: INSULIN SLIDING SCALE (NOVOLOG) 1 VIAL SQ SCH ×2 (06:38→12:49)
[2018-04-28] MEDS: AMINO ACIDS/PROTEIN HYDROLYS 30 ML LIQUID.PKT PO SCH (09:58)
[2018-04-28] MEDS: APIXABAN 2.5 MG TABLET PO SCH (09:58)
[2018-04-28] MEDS: POTASSIUM CHLORIDE TABS 10 MEQ TABLET.ER (FP) PO SCH (09:58)
[2018-04-28] MEDS: NITROGLYCERIN 0.1 MG/HOUR TD PATCH TD SCH (09:59)
[2018-04-28] MEDS: SILVER SULFADIAZINE 1% TOP CREAM 50 GM JAR TP SCH (09:59)
[2018-04-28] MEDS ORDERED: FUROSEMIDE 20 MG TABLET (FP) PO SCH (10:00)
[2018-04-28] MEDS: METOPROLOL TARTRATE 50 MG TABLET (FP) PO SCH (10:08)
--- NOTE | 2018-04-28 10:48 | PN ---
Progress Note (short form) - Note Progress Note: pt seen/ examined today chart reviewed awake/ comfortable no distress denies pain Vital Signs Temp 98.2 F 04/28/18 10:08 Pulse 96 H 04/28/18 10:08 Resp 20 04/28/18 10:08 BP 123/63 04/28/18 10:08 Pulse Ox 96 04/27/18 21:00 Intake & Output 04/27/18 04/27/18 04/28/18 11:59 23:59 11:59 Intake Total 300 0 0 Output Total 200 200 Balance 300 -200 -200 Intake: IV 0 central line 0 sl #2 0 IVPB 300 Oral 0 Output: Urine 200 200 External Catheter 200 200 Other: Voiding Method External Catheter External Catheter # Unmeasured Voids External Catheter 1 Active Medications Amino Acids (Prosource No Carb Liquid Pkt) 30 ml PO BID@0800,1730 [facility] Last Admin: 04/28/18 09:58 Dose: 30 ml Apixaban (Eliquis -) 2.5 mg PO BID [facility] Last Admin: 04/28/18 09:58 Dose: 2.5 mg Furosemide (Lasix -) 20 mg PO DAILY [facility] Last Admin: 04/28/18 09:58 Dose: 20 mg IV Flush (Triple Lumen Flush) 4 ml IVPUSH PRN PRN PRN Reason: Protocol Last Admin: 04/25/18 05:33 Dose: 4 ml Insulin Aspart (Novolog Vial Sliding Scale -) 1 vial SQ ACHS [facility]; Protocol Last Admin: 04/28/18 06:38 Dose: 2 units Insulin Detemir (Levemir Vial) 16 units SQ HS [facility] Last Admin: 04/27/18 22:36 Dose: 16 units Metoprolol Tartrate (Lopressor -) 50 mg PO BID [facility] Last Admin: 04/28/18 10:08 Dose: 50 mg Nitroglycerin (Nitro-Dur Patch -) 0.1 mg TD DAILY [facility] Last Admin: 04/28/18 09:59 Dose: 0.1 mg Polyethylene Glycol (Miralax (For Daily Use) -) 17 gm PO DAILY [facility] Last Admin: 04/27/18 10:14 Dose: 17 grams Potassium Chloride (K-Dur -) 20 meq PO DAILY [facility] Last Admin: 04/28/18 09:58 Dose: 20 meq Silver Sulfadiazine (Silvadene -) 1 applic TP BID [facility] Last Admin: 04/28/18 09:59 Dose: 1 applic CBC, BMP 04/26/18 05:15 04/26/18 05:15 physical Exam awake/ comfortable S1 S2 Irregular Lungs decreased breath sounds Abd-soft, NT, decreased drainage from wound dehiscence No edema stage 2 sacrum , no yellowish discharge drain-- less fluid drained PLAN clinically stable medically stable for d/c to intermediate Family appealing discharge discussed with nursing staff also will follow Problem List - Problems (1) Biliary sepsis Code(s): K83.09 - OTHER CHOLANGITIS (2) Wound infection after surgery Code(s): T81.49XA - INFECTION FOLLOWING A PROCEDURE, OTHER SURGICAL SITE, INIT (3) H/O: CVA (cerebrovascular accident) Code(s): Z86.73 - PRSNL HX OF TIA (TIA), AND CEREB INFRC W/O RESID DEFICITS (4) Hypokalemia Code(s): E87.6 - HYPOKALEMIA
[2018-04-28] MEDS: POLYETHYLENE GLYCOL 3350 119 GM BTL PO SCH (11:04)
[2018-04-28 15:43] VITALS: BP 138/77; PULSE 103; TEMP 98.7
== END 2018-04-28 17:15 | DRG 862 ==
LOC: JER 10:52 → JERBED 17:34 → J7W 04-14 18:48
PROVIDERS: ADMIT Internal Medicine; ATTEND Internal Medicine
PROC: 0F9430Z Drainage of Gallbladder with Drainage Device, Percutaneous Approach (ICD-10-PCS; principal; 2018-04-14)
PROC: 05HM33Z Insertion of Infusion Device into Right Internal Jugular Vein, Percutaneous Approach (ICD-10-PCS; 2018-04-21)
PROC: B513ZZA Fluoroscopy of Right Jugular Veins, Guidance (ICD-10-PCS; 2018-04-21)
DX: T81.49XA Infection following a procedure, other surgical site, initial encounter (principal); A41.9 Sepsis, unspecified organism; K83.09 Other cholangitis; E46 Unspecified protein-calorie malnutrition; T81.30XA Disruption of wound, unspecified, initial encounter; I69.351 Hemiplegia and hemiparesis following cerebral infarction affecting right dominant side; L89.152 Pressure ulcer of sacral region, stage 2; Y83.9 Surgical procedure, unspecified as the cause of abnormal reaction of the patient, or of later complication, without mention of misadventure at the time of the procedure; E78.5 Hyperlipidemia, unspecified; E87.6 Hypokalemia; E11.9 Type 2 diabetes mellitus without complications
CPT/HCPCS: 36415; 36556; 47490; 71045-TC-FY; 74177-TC; 76000-TC-FY; 76098-TC-FY; 76705-TC; 76998-TC; 77001-TC-FY; 80048; 80053; 81003; 81015; 82803; 82962; 83605; 83690; 83735; 84100; 84132; 84484; 85025; 85027; 85610; 85730; 86850; 86900; 86901; 87040; 87070; 87075; 87086; 87102; 87116; 87186; 87205; 87206; 87210; 87804; 87899; 93005; 93010; 94640; 97161-GP; 99285-25; C1729; C1751; C1769; G0480; J0131; J7030

== ENCOUNTER 2018-05-18 03:37 | Emergency (ER) | payer OTHER ==
--- NOTE | 2018-05-18 04:20 | PDOC ---
History of Present Illness - General Chief Complaint: Injury Stated Complaint: FALL Time Seen by Provider: 05/18/18 04:19 - History of Present Illness Initial Comments: 78 year old male with PMH of HTN, HLD, IDDM, atrial fibrillation (on Eliquis), and dementia presenting with fall from bed. Patient is severely demented and AO to self only at baseline. Per senior living, he was calling for help and they found him seated by his bed not complaining of anything. When he moved his right arm to sit himself up he said owe so they were concerned about his right arm. They sent him to the ED in stable condition for "head CT and right arm xr" . They deny any infectious symptoms during his time in their facility. 05/18/18 06:57 Past History - Past Medical History Allergies/Adverse Reactions: Allergies Allergy/AdvReac Type Severity Reaction Status Date / Time No Known Allergies Allergy Verified 04/13/18 11:31 Home Medications: Ambulatory Orders Acetaminophen [Tylenol .Regular Strength -] 650 mg PO Q4H PRN 02/28/18 Albuterol 2.5/Ipratropium 0.5 [Duoneb -] 1 neb IH QID 02/28/18 Ascorbic Acid [Vitamin C -] 500 mg PO DAILY 02/28/18 Atorvastatin Ca [Lipitor] 40 mg PO HS 02/28/18 Ergocalciferol [Vitamin D2] 50,000 unit PO WEEKLY 02/28/18 Insulin (LOG) Aspart [NovoLOG -] 0 units SQ BID 02/28/18 Sennosides [Senna -] 2 tab PO HS 02/28/18 Sennosides/Docusate Sodium [Senexon-S Tablet] 1 each PO HS 02/28/18 Insulin (Levemir) [Levemir Vial] 22 units SQ HS #30 units 03/22/18 Lisinopril [Prinivil] 40 mg PO DAILY #60 tablet 03/22/18 Metoprolol Tartrate [Lopressor -] 50 mg PO BID #60 tablet 03/22/18 Ranitidine [Zantac -] 150 mg PO BID #60 tablet 03/22/18 Insulin Lispro [Humalog Kwikpen U-100] 100 unit SQ 04/13/18 Apixaban [Eliquis] 2.5 mg PO BID #30 tablet 04/27/18 Furosemide [Lasix] 20 mg PO DAILY #30 tablet 04/27/18 Potassium Chloride [K-Dur -] 20 meq PO DAILY #30 tablet.er 04/27/18 Protein Supplement [Prosource] 275 gm PO BID #20 powder 04/27/18 Anemia: No Asthma: No Cardiac Disorders: Yes (atrial fib) CVA: Yes (rt side hemiparesis) COPD: Yes CHF: No Diabetes: Yes GI Disorders: Yes (GERD) HTN: Yes Hypercholesterolemia: Yes - Surgical History GI Surgery: Yes (volvulus or ascending colon sx) Neurologic Surgery: No - Immunization History Immunization Up to Date: Yes - Suicide/Smoking/Psychosocial Hx Smoking Status: No Smoking History: Unknown if ever smoked Have you smoked in the past 12 months: No Number of Cigarettes Smoked Daily: 0 If you are a former smoker, when did you quit?: 6 years ago Information on smoking cessation initiated: No Hx Alcohol Use: No Drug/Substance Use Hx: No Substance Use Type: None Hx Substance Use Treatment: No Review of Systems - Review of Systems Able to Perform ROS?: No (demented) *Physical Exam - Vital Signs Last Vital Signs Temp Pulse Resp BP Pulse Ox 97.1 F L 110 H 19 161/76 98 05/18/18 03:47 05/18/18 03:47 05/18/18 03:47 05/18/18 03:47 05/18/18 03:47 - Physical Exam General Appearance: Yes: Nourished, Appropriately Dressed. No: Apparent Distress HEENT: positive: EOMI, JEREL, Normal ENT Inspection, Normal Voice Neck: positive: Trachea midline, Normal Thyroid, Supple. negative: Tender, Rigid Respiratory/Chest: positive: Lungs Clear, Normal Breath Sounds. negative: Chest Tender Cardiovascular: positive: Regular Rhythm, Regular Rate Gastrointestinal/Abdominal: positive: Normal Bowel Sounds, Flat, Soft. negative : Tender Lymphatic: negative: Adenopathy, Tenderness Musculoskeletal: positive: Normal Inspection. negative: Decreased Range of Motion Extremity: positive: Normal Capillary Refill, Normal Inspection, Normal Range of Motion. negative: Tender Integumentary: positive: Normal Color, Dry, Warm Neurologic: positive: Fully Oriented, Alert, Normal Mood/Affect, Normal Response , Motor Strength 5/5 Moderate Sedation - Procedure Monitoring Vital Signs: Procedure Monitoring Vital Signs Temperature 97.1 F L 05/18/18 03:47 Pulse Rate 110 H 05/18/18 03:47 Respiratory Rate 05/18/18 03:47 Blood Pressure 161/76 05/18/18 03:47 O2 Sat by Pulse Oximetry (%) 98 05/18/18 03:47 Medical Decision Making - Medical Decision Making 78 year old male AOx1 at baseline coming in from [facility] for low mechanism fall onto his buttox. Head Ct, pelvis XR, right XR. Signed out to Dr. Herrera in stable condition. 05/18/18 07:11 *DC/Admit/Observation/Transfer Diagnosis at time of Disposition: Fall Qualifiers: Encounter type: initial encounter Qualified Code(s): W19.XXXA - Unspecified fall, initial encounter - Discharge Dispostion Disposition: HOME Condition at time of disposition: Fair - Referrals - Patient Instructions - Post Discharge Activity
[2018-05-18 04:30] VITALS: TEMP 97.1; BMI 30.4
--- NOTE | 2018-05-18 04:40 | PDOC ---
Attending Attestation - Resident Resident Name: Graham Rodriguez - ED Attending Attestation I have performed the following: I have examined & evaluated the patient, The case was reviewed & discussed with the resident, I agree w/resident's findings & plan
--- NOTE | 2018-05-18 07:19 | PDOC ---
*Physical Exam - Vital Signs Last Vital Signs Temp Pulse Resp BP Pulse Ox 97.1 F L 110 H 19 161/76 98 05/18/18 03:47 05/18/18 03:47 05/18/18 03:47 05/18/18 03:47 05/18/18 03:47 Medical Decision Making - Medical Decision Making 05/18/18 07:18 Pt signed out to me by Dr. Rodriguez, night team. The patient is a 78M, A&O x 1 at baseline, who presents to the ER after having a mechanical fall. Pending imaging and reassessment. 05/18/18 09:43 Humerus and pelvic XR negative. Head CT negative. Will d/c with PCP f/u. *DC/Admit/Observation/Transfer Diagnosis at time of Disposition: Fall Qualifiers: Encounter type: initial encounter Qualified Code(s): W19.XXXA - Unspecified fall, initial encounter - Discharge Dispostion Disposition: HOME Condition at time of disposition: Stable Decision to Admit order: No - Referrals - Patient Instructions Printed Discharge Instructions: How to Prevent Falls Additional Instructions: Please follow up with your primary care physician in 2-3 days. Please return to the ER if you have any signs or symptoms of chest pain, shortness of breath, uncontrollable fever, chills, nausea, vomiting, numbness, tingling, or weakness in any part of your body, changes in vision, or slurred speech. Please take your medications as prescribed. Please return to the ER if symptoms persist, worsen, or new symptoms arise. - Post Discharge Activity
[2018-05-18 10:01] VITALS: BP 177/79; PULSE 69
--- NOTE | 2018-05-20 13:19 | EKG ---
Test Reason : Blood Pressure : / mmHG Vent. Rate : 055 BPM Atrial Rate : 055 BPM P-R Int : 168 ms QRS Dur : 092 ms QT Int : 392 ms P-R-T Axes : 044 -34 -40 degrees QTc Int : 375 ms SINUS BRADYCARDIA WITH PREMATURE ATRIAL COMPLEXES LEFT AXIS DEVIATION T WAVE ABNORMALITY, CONSIDER INFERIOR ISCHEMIA T WAVE ABNORMALITY, CONSIDER ANTEROLATERAL ISCHEMIA ABNORMAL ECG Confirmed by PARRISH LU MD ([id number]) on 05/20/2018 1:18:34 PM Referred By: Confirmed By:PARRISH LU MD
== END 2018-05-18 11:54 ==
LOC: JER 03:37
DX: M79.601 Pain in right arm (principal); W06.XXXA Fall from bed, initial encounter; Y93.89 Activity, other specified; Y92.122 Bedroom in nursing home as the place of occurrence of the external cause; Y99.8 Other external cause status; I10 Essential (primary) hypertension; E11.9 Type 2 diabetes mellitus without complications; Z79.4 Long term (current) use of insulin; E78.00 Pure hypercholesterolemia, unspecified; I48.91 Unspecified atrial fibrillation; Z79.01 Long term (current) use of anticoagulants; F03.90 Unspecified dementia, unspecified severity, without behavioral disturbance, psychotic disturbance, mood disturbance, and anxiety; J44.9 Chronic obstructive pulmonary disease, unspecified; I69.851 Hemiplegia and hemiparesis following other cerebrovascular disease affecting right dominant side
CPT/HCPCS: 70450-TC; 72170-TC-FY; 73060-TC-RT-FY; 93005; 93010; 99282-25

== ENCOUNTER 2018-05-25 18:16 | Observation (INO) | payer OTHER ==
[2018-05-25 18:58] VITALS: BMI 29.5
--- NOTE | 2018-05-25 19:54 | PDOC ---
Attending Attestation - HPI HPI: 05/25/18 21:05 The patient is a 78 year old male with a significant past medical history of HTN , HLD, CHF, COPD, CVA, DM, chronic malnourishment, sigmoid volvulus, s/p ostomy , aspiration pneumonia, and admission last month for cholecystitis with biloma s /p perc gustavo tube by IR, who was BIBA to the emergency department today complaining that he pulled out his CHRISTIAN drain. The patient has dementia and was unable to provide more information, however he was accompanied to the ER by a nurse at [facility]. The nurse states that the patient had a percole tube place in march 2018 that was to stay for 6-8 weeks. There are no other complaints for the patient other than needing a replacement for his drain. Allergies: NKA Social history: No reported <Ceci Stewart - Last Filed: 05/25/18 21:05> - Resident Resident Name: Rafia Slater - ED Attending Attestation I have performed the following: I have examined & evaluated the patient, The case was reviewed & discussed with the resident, I agree w/resident's findings & plan, Exceptions are as noted - Physicial Exam PE: 05/25/18 20:15 Agree with exam as documented by resident - Medical Decision Making 05/25/18 20:15 78M with month old perc earnestine tube that he pulled. Will need to stay for replacement by IR f/u basic labs for acute issues admit <Matthew Mix - Last Filed: 05/26/18 03:24> Attestations - Attestations 05/25/18 21:05 Documentation prepared by Ceci Stewart, acting as medical office assistant instructor for Matthew Mix MD. <Ceci Stewart - Last Filed: 05/25/18 21:05>
--- NOTE | 2018-05-25 20:01 | PDOC ---
History of Present Illness - General Chief Complaint: G Tube Problem Stated Complaint: CHRISTIAN TUBE REPLACEMENT Time Seen by Provider: 05/25/18 19:34 - History of Present Illness Initial Comments: Dhiraj Gr is a 78yo man with a PMH HTN, HLD, CHF, COPD, CVA, DM, chronic malnourishment, sigmoid volvulus, s/p ostomy, aspiration pneumonia, and admission last month for cholecystitis with biloma s/p perc gustavo tube by IR who was brought by ambulance from [facility] with complaint that he "pulled his CHRISTIAN drain. " Mr Gr is unable to provide information secondary to dementia. Per a nurse at [facility] and chart review, Mr Gr had a perc gustavo tube placed for cholecystitis on 04/13/18, and a drain was to be left in place for at least 6-8 weeks with possible replacement at that time. He pulled his drain today, however, and was sent for replacement. His nurse at [facility] reports that he has been doing well otherwise, and there have been no difficulties with his new ostomy, fevers, abdominal pain, or recent vomiting. Past History - Past Medical History Allergies/Adverse Reactions: Allergies Allergy/AdvReac Type Severity Reaction Status Date / Time No Known Allergies Allergy Verified 04/13/18 11:31 Home Medications: Ambulatory Orders Acetaminophen [Tylenol .Regular Strength -] 650 mg PO Q4H PRN 02/28/18 Albuterol 2.5/Ipratropium 0.5 [Duoneb -] 1 neb IH QID 02/28/18 Ascorbic Acid [Vitamin C -] 500 mg PO DAILY 02/28/18 Atorvastatin Ca [Lipitor] 40 mg PO HS 02/28/18 Ergocalciferol [Vitamin D2] 50,000 unit PO WEEKLY 02/28/18 Insulin (LOG) Aspart [NovoLOG -] 0 units SQ BID 02/28/18 Sennosides [Senna -] 2 tab PO HS 02/28/18 Sennosides/Docusate Sodium [Senexon-S Tablet] 1 each PO HS 02/28/18 Insulin (Levemir) [Levemir Vial] 22 units SQ HS #30 units 03/22/18 Lisinopril [Prinivil] 40 mg PO DAILY #60 tablet 03/22/18 Metoprolol Tartrate [Lopressor -] 50 mg PO BID #60 tablet 03/22/18 Ranitidine [Zantac -] 150 mg PO BID #60 tablet 03/22/18 Insulin Lispro [Humalog Kwikpen U-100] 100 unit SQ 04/13/18 Apixaban [Eliquis] 2.5 mg PO BID #30 tablet 04/27/18 Furosemide [Lasix] 20 mg PO DAILY #30 tablet 04/27/18 Potassium Chloride [K-Dur -] 20 meq PO DAILY #30 tablet.er 04/27/18 Protein Supplement [Prosource] 275 gm PO BID #20 powder 04/27/18 Anemia: No Asthma: No Cardiac Disorders: Yes (atrial fib) CVA: Yes (rt side hemiparesis) COPD: Yes CHF: No Diabetes: Yes GI Disorders: Yes (GERD) HTN: Yes Hypercholesterolemia: Yes - Surgical History GI Surgery: Yes (volvulus or ascending colon sx) Neurologic Surgery: No - Immunization History Immunization Up to Date: Yes - Suicide/Smoking/Psychosocial Hx Smoking Status: No Smoking History: Unknown if ever smoked Have you smoked in the past 12 months: No Number of Cigarettes Smoked Daily: 0 If you are a former smoker, when did you quit?: 6 years ago Information on smoking cessation initiated: No Hx Alcohol Use: No Drug/Substance Use Hx: No Substance Use Type: None Hx Substance Use Treatment: No Review of Systems - Review of Systems Comments:: Could not obtain secondary to dementia *Physical Exam - Vital Signs Last Vital Signs Temp Pulse Resp BP Pulse Ox 99.3 F 64 18 147/91 100 05/25/18 18:50 05/25/18 18:50 05/25/18 18:50 05/25/18 18:50 05/25/18 18:50 - Physical Exam Comments: General: Sleeping comfortably, no acute distress HEENT: PERRL, EOMI, MMM, voice normal, normal neck ROM, no LAD Cards: Irregular, no murmur appreciated Pulm: Comfortable on room air Abd: Soft, nontender, mildly distended. Ostomy bag in place w/ liquid stool. Perc gustavo drain site visible with scant drainage in midline inferior to umbilicus. Ext: Atraumatic. No LE edema. Moves all extremities Vasc: Extremities WWP. Palpable radial and pedal pulses bilaterally Skin: Normal color, no rashes or lesions Neuro: Awake and alert, CN grossly intact, no focal deficits noted Psych: Mood appropriate to situation Moderate Sedation - Procedure Monitoring Vital Signs: Procedure Monitoring Vital Signs Temperature 99.3 F 05/25/18 18:50 Pulse Rate 64 05/25/18 18:50 Respiratory Rate 18 05/25/18 18:50 Blood Pressure 147/91 05/25/18 18:50 O2 Sat by Pulse Oximetry (%) 100 05/25/18 18:50 ED Treatment Course - LABORATORY CBC & Chemistry Diagram: 05/25/18 20:45 05/25/18 20:45 - RADIOLOGY Radiology Studies Ordered: Category Date Time Status CHEST X-RAY PORTABLE* [RAD] Stat Radiology 05/25/18 19:49 Ordered Medical Decision Making - Medical Decision Making 05/25/18 19:53 Dhiraj Gr is a 78yo man with a PMH HTN, HLD, CHF, COPD, CVA, DM, chronic malnourishment, sigmoid volvulus, s/p ostomy, aspiration pneumonia, and admission last month for cholecystitis with biloma s/p perc gustavo tube by IR who presents after pulling out his drain. - Perc gustavo tube cannot be replaced in the ED, will need admission and evaluation, likely replacement, by IR - Spoke to nurse at [facility]; no recent symptoms noted over the past week. Ostomy has been functioning well. Drain has been putting out approx 20cc per day recently. - CBC, CMP, EKG, CXR to eval for abnormalities prior to admission. Coags for possible intervention 05/25/18 21:49 - Labs reviewed, No concerning abnormalities noted - CXR and EKG to be completed 05/25/18 22:30 - CXR unchanged from previous - Microblog sent to hospitalist team for admission - Spoke to Dr Ding, recommending IR consult for replacement tomorrow 05/25/18 23:54 - Discussed with Dr Bateman. Will be admitted to Dr Hobson for evaluation and management by IR tomorrow Discussed with Dr Mix. Raifa Slater PGY1 *DC/Admit/Observation/Transfer Diagnosis at time of Disposition: Biloma - Discharge Dispostion Decision to Admit order: Yes - Referrals Referrals: Tyrell Vanegas MD [Primary Care Provider] - - Patient Instructions - Post Discharge Activity
[2018-05-25 21:06] LABS: INR 1.13 (0.83-1.09); PROTHROMBIN TIME (PATIENT) 13.3 SEC (9.7-13.0)
[2018-05-25 21:09] LABS: ACTIVATED PTT 30.4 SECONDS (25.2-36.5)
[2018-05-25 21:22] LABS: ALK PHOS 87 U/L (45-117); ANION GAP 5 MMOL/L (8-16); BILIRUBIN,TOTAL 0.4 mg/dL (0.2-1); BLOOD UREA NITROGEN 6 mg/dL (7-18); CALCIUM 8.8 mg/dL (8.5-10.1); CHLORIDE 102 mmol/L (98-107); CO2 33 mmol/L (21-32); CREATININE 0.7 mg/dL (0.55-1.3); GLUCOSE,RANDOM 175 mg/dL (74-106); POTASSIUM 4.7 mmol/L (3.5-5.1); SGOT/AST 21 U/L (15-37); SGPT/ALT 21 U/L (13-61); SODIUM 140 mmol/L (136-145); TOT PROT 8.1 g/dl (6.4-8.2)
[2018-05-25 21:33] LABS: BASO % 0.5 % (0-2.0); EOS % 1.9 % (0-4.5); HEMATOCRIT 35.7 % (35.4-49); HEMOGLOBIN 12.3 GM/dL (11.7-16.9); LYMPH % 58.7 % (8-40); MCH 32.1 pg (25.7-33.7); MCHC 34.6 g/dl (32.0-35.9); MEAN CELL VOLUME 92.9 fl (80-96); MEAN PLT VOLUME 9.2 fl (7.5-11.1); MONO % 9.4 % (3.8-10.2); NEUT % 29.5 % (42.8-82.8); PLATELET COUNT 234 K/MM3 (134-434); RBC 3.85 M/mm3 (4.00-5.60); RDW 15.8 % (11.9-15.9); WHITE BLOOD COUNT 8.2 K/mm3 (4.0-10.0)
--- NOTE | 2018-05-26 00:35 | PN ---
Teaching Attending Note Name of Resident: Brendan Bateman ATTENDING PHYSICIAN STATEMENT I saw and evaluated the patient. I reviewed the resident's note and discussed the case with the resident. I agree with the resident's findings and plan as documented. SUBJECTIVE: patient is a 78 year old man with a PMH HTN, HLD, CHF, COPD, CVA, DM, chronic malnourishment, sigmoid volvulus, s/p ostomy, aspiration pneumonia, and admission last month for cholecystitis with biloma s/p perc gustavo tube by IR who was brought by ambulance from [facility] with complaint that he "pulled his CHRISTIAN drain. " . Hei is unable to provide information secondary to dementia. Per a nurse at [facility] he had a perc gustavo tube placed for cholecystitis on 04/13/18, and a drain was to be left in place for at least 6-8 weeks with possible replacement at that time. He pulled his drain today, however, and was sent for replacement. His nurse at [facility] reports that he has been doing well otherwise, and there have been no difficulties with his new ostomy, fevers, abdominal pain, or recent vomiting. OBJECTIVE: Alert Vital Signs Period Temp Pulse Resp BP Sys/Pham Pulse Ox Last 24 Hr 99.3 F 64 18 147/91 100 HEENT: No Jaundice, eye redness or discharge, PERRLA, EOMI. Normocephalic, atraumatic. Right facial droop. External ears are normal and hearing is grossly intact. No nasal discharge. Neck: Supple, nontender. No palpable adenopathy or thyromegaly. No JVD Chest: Good effort. Clear to auscultation and percussion. Heart: Regular. No S3, rub or murmur Abdomen: Not distended, soft, nontender and no HSM. Ostomy bag in place with liquid stool. PERC cholecystostomy drain site visible with scant drainage in midline inferior to umbilicus. No rebound or guarding. Normoactive bowel sounds. Ext: Peripheral pulses intact. No leg edema. Skin: Warm and dry. No petechiae, rash or ecchymosis. Neuro: Alert. CN 2-12 grossly intact. Sensation grossly intact in all four extremities; right hemiparesis. Home Medications Medication Instructions Recorded Acetaminophen [Tylenol .Regular 650 mg PO Q4H PRN 02/28/18 Strength -] Albuterol 2.5/Ipratropium 0.5 1 neb IH QID 02/28/18 [Duoneb -] Ascorbic Acid [Vitamin C -] 500 mg PO DAILY 02/28/18 Atorvastatin Ca [Lipitor] 40 mg PO HS 02/28/18 Ergocalciferol [Vitamin D2] 50,000 unit PO WEEKLY 02/28/18 Insulin (LOG) Aspart [NovoLOG -] 0 units SQ BID 02/28/18 Sennosides [Senna -] 2 tab PO HS 02/28/18 Sennosides/Docusate Sodium 1 each PO HS 02/28/18 [Senexon-S Tablet] Insulin (Levemir) [Levemir Vial] 22 units SQ HS #30 units 03/22/18 Lisinopril [Prinivil] 40 mg PO DAILY #60 tablet 03/22/18 Metoprolol Tartrate [Lopressor -] 50 mg PO BID #60 tablet 03/22/18 Ranitidine [Zantac -] 150 mg PO BID #60 tablet 03/22/18 Insulin Lispro [Humalog Kwikpen 100 unit SQ 04/13/18 U-100] Apixaban [Eliquis] 2.5 mg PO BID #30 tablet 04/27/18 Furosemide [Lasix] 20 mg PO DAILY #30 tablet 04/27/18 Potassium Chloride [K-Dur -] 20 meq PO DAILY #30 tablet.er 04/27/18 Protein Supplement [Prosource] 275 gm PO BID #20 powder 04/27/18 Abnormal Lab Results 05/25/18 05/25/18 05/25/18 20:45 20:45 20:45 RBC 3.85 L Neutrophils % 29.5 L D Lymphocytes % 58.7 H D PT with INR 13.30 H INR 1.13 H Carbon Dioxide 33 H Anion Gap 5 L BUN 6 L Random Glucose 175 H Albumin 3.0 L ASSESSMENT AND PLAN: 1. Dislodged PERC cholecystostomy tube - This is the sixth week of the planned 6 -8 weeks of drainage. Will consult IR to determine if drain needs to be reinserted or if repeat scan is needed to reasses "fluid collection". 2. DM - For now, we will hold the home diabetes drugs and implement sliding scale insulin regimen. Provide comprehensive diabetes care with patient teaching and counseling about the importance of euglycemia, eye care and foot care. 3. DVT prophylaxis - On Eliquis 4. Advance directives - Full code
[2018-05-26] MEDS ORDERED: LOPERAMIDE HCL 2 MG CAPSULE ONE (03:51)
[2018-05-26] MEDS ORDERED: ASPIRIN COATED 81 MG TABLET.EC ONE (05:33)
--- NOTE | 2018-05-26 09:01 | HP ---
CHIEF COMPLAINT: PCP: Dr. Gunderson HISTORY OF PRESENT ILLNESS: The patient has a history of dementia and the following history was obtained from custodial records and the EMR. The patient is a 78-year-old male with a past medical history of hypertension COPD CHF CVA, dementia and diabetes who was brought into the ED from [facility] after he was found to have pulled out his percutaneous cholecystostomy tube. The patient was recently admitted to [facility] on 04/13/18 for cholecystitis with bileoma. Cholecystostomy tube was placed and the drain was supposed to be kept in place for 6 to 8 weeks. Patient has no complaints this time. ER course was notable for: (1) CBC, CMP unremakrable (2) coags obtained (3) Recent Travel: none PAST MEDICAL HISTORY: see hPI PAST SURGICAL HISTORY: unable to obtain Social History: Smoking: denies Alcohol: denies Drugs: denies Family History: unable to obtain Allergies No Known Allergies Allergy (Verified 04/13/18 11:31) HOME MEDICATIONS: Home Medications Medication Instructions Recorded Acetaminophen [Tylenol .Regular 650 mg PO QID PRN 02/28/18 Strength -] Ascorbic Acid [Vitamin C -] 500 mg PO AM 02/28/18 Atorvastatin Ca [Lipitor] 40 mg PO HS 02/28/18 Sennosides [Senna -] 2 tab PO HS 02/28/18 Insulin (Levemir) [Levemir Vial] 22 units SQ HS #30 units 03/22/18 Metoprolol Tartrate [Lopressor -] 50 mg PO BID #60 tablet 03/22/18 Ranitidine [Zantac -] 150 mg PO BID #60 tablet 03/22/18 Insulin Lispro [Humalog Kwikpen 100 unit SQ BID PRN 04/13/18 U-100] Potassium Chloride [K-Dur -] 20 meq PO DAILY #30 tablet.er 04/27/18 Albuterol 0.083% Nebulizer Bethanie 1 neb NEB Q6H 05/26/18 [Ventolin 0.083% Nebulizer Soln -] Apixaban [Eliquis] 5 mg PO AM 05/26/18 Cholecalciferol (Vitamin D3) 1,000 unit PO DAILY 05/26/18 [Vitamin D3 -] Furosemide [Lasix] 20 mg PO AM 05/26/18 Lisinopril [Prinivil] 40 mg PO AM 05/26/18 Oseltamivir Phosphate [Tamiflu] 75 mg PO DAILY 05/26/18 clonazePAM [Klonopin -] 0.5 mg PO BID 05/26/18 REVIEW OF SYSTEMS unable to obtain PHYSICAL EXAMINATION Vital Signs - 24 hr 05/25/18 05/26/18 18:50 04:27 Temperature 99.3 F 98.6 F Pulse Rate 64 Pulse Rate [ 67 Left Radial] Respiratory 18 Rate Blood Pressure 147/91 Blood Pressure 160/89 [Right Arm] O2 Sat by Pulse 100 95 Oximetry (%) GENERAL: Awake, alert, oriented to self only, in no acute distress. HEAD: Normal with no signs of trauma. EYES: Pupils equal, round and reactive to light, extraocular movements intact, sclera anicteric, conjunctiva clear. No lid lag. LUNGS: Breath sounds equal, clear to auscultation bilaterally. No wheezes, and no crackles. No accessory muscle use. HEART: Regular rate and rhythm, normal S1 and S2 without murmur, rub or gallop. ABDOMEN: Soft, nontender, not distended, normoactive bowel sounds, no guarding, no rebound, no masses. No hepatomegaly or splenomegaly. LOWER EXTREMITIES: 2+ pulses, warm, well-perfused. No calf tenderness. No peripheral edema. NEUROLOGICAL: Cranial nerves II-X intact. Normal speech. SKIN: Warm, dry, normal turgor, no rashes or lesions noted, normal capillary refill. Laboratory Results - last 24 hr 05/25/18 05/25/18 05/25/18 20:45 20:45 20:45 WBC 8.2 RBC 3.85 L Hgb 12.3 Hct 35.7 D MCV 92.9 MCH 32.1 MCHC 34.6 RDW 15.8 Plt Count 234 D MPV 9.2 D Absolute Neuts (auto) 2.4 Neutrophils % 29.5 L D Lymphocytes % 58.7 H D Monocytes % 9.4 Eosinophils % 1.9 Basophils % 0.5 Nucleated RBC % 0 PT with INR 13.30 H INR 1.13 H PTT (Actin FS) 30.4 Sodium 140 Potassium 4.7 Chloride 102 Carbon Dioxide 33 H Anion Gap 5 L BUN 6 L Creatinine 0.7 Creat Clearance w eGFR > 60 Random Glucose 175 H Calcium 8.8 Total Bilirubin 0.4 AST 21 ALT 21 Alkaline Phosphatase 87 Total Protein 8.1 Albumin 3.0 L ASSESSMENT/PLAN: The patient is a 78-year-old male the past medical history of hypertension COPD CHF and diabetes was brought into the emergency department from custodial after he pulled out his cholecystostomy tube. #Dislodged cholecystostomy tube -NPO -am labs, coags, type and screen -IR eval in AM -holding AC in the event of procedure #FEN -no fluids indicated -lytes WNL -NPO for possible procedure #prophy -holding all AC in the event of procdure -SCDs #Dispo -observe on med surg for possible reinsertion of cholecystostomy tube. -home medications verified with ID records. Visit type - Emergency Visit Emergency Visit: Yes ED Registration Date: 05/25/18 Care time: The patient presented to the Emergency Department on the above date and was hospitalized for further evaluation of their emergent condition. - New Patient This patient is new to me today: Yes Date on this admission: 05/26/18 - Critical Care Critical Care patient: No
[2018-05-26] MEDS ORDERED: RANITIDINE HCL 150 MG TABLET (FP) PO SCH (10:00)
[2018-05-26] MEDS ORDERED: METOPROLOL TARTRATE 50 MG TABLET (FP) PO SCH (10:00)
[2018-05-26] MEDS ORDERED: POTASSIUM CHLORIDE TABS 20 MEQ TABLET.ER (FP) PO SCH (10:00)
[2018-05-26] MEDS ORDERED: METOPROLOL TARTRATE 50 MG TABLET (FP) ONE (10:05)
[2018-05-26] MEDS ORDERED: LISINOPRIL 20 MG TABLET (FP) ONE (10:05)
--- NOTE | 2018-05-26 11:56 | EKG ---
Test Reason : Blood Pressure : / mmHG Vent. Rate : 064 BPM Atrial Rate : 064 BPM P-R Int : 000 ms QRS Dur : 088 ms QT Int : 410 ms P-R-T Axes : 054 -37 -38 degrees QTc Int : 422 ms POOR DATA QUALITY, INTERPRETATION MAY BE ADVERSELY AFFECTED SINUS RHYTHM WITH PREMATURE ATRIAL COMPLEXES LEFT AXIS DEVIATION NONSPECIFIC ST AND T WAVE ABNORMALITY ABNORMAL ECG WHEN COMPARED WITH ECG OF 18-MAY-2018 05:16, NO SIGNIFICANT CHANGE WAS FOUND Confirmed by LILY PUENTE, WILTON ([id number]) on 05/26/2018 11:55:45 AM Referred By: Confirmed By:WILTON BAUTISTA MD
[2018-05-26] MEDS: ALBUTEROL SO4 0.083% IH SOL 2.5 MG/3 ML VIAL.NEB. NEB SCH ×2 (12:26→16:43)
[2018-05-26] MEDS: INSULIN SLIDING SCALE (NOVOLOG) 1 VIAL SQ SCH ×2 (12:26→17:00)
[2018-05-26 14:05] LABS: HEMATOCRIT 34.1 % (35.4-49); HEMOGLOBIN 11.9 GM/dL (11.7-16.9); MCH 31.5 pg (25.7-33.7); MEAN PLT VOLUME 8.7 fl (7.5-11.1); PLATELET COUNT 250 K/MM3 (134-434); RBC 3.79 M/mm3 (4.00-5.60); WHITE BLOOD COUNT 6.5 K/mm3 (4.0-10.0)
[2018-05-26 14:24] LABS: INR 1.17 (0.83-1.09); PROTHROMBIN TIME (PATIENT) 13.8 SEC (9.7-13.0)
[2018-05-26 14:27] LABS: ACTIVATED PTT 33.4 SECONDS (25.2-36.5)
[2018-05-26 14:36] LABS: ALK PHOS 92 U/L (45-117); ANION GAP 8 MMOL/L (8-16); BILIRUBIN,TOTAL 0.7 mg/dL (0.2-1); BLOOD UREA NITROGEN 6 mg/dL (7-18); CALCIUM 8.8 mg/dL (8.5-10.1); CHLORIDE 99 mmol/L (98-107); CO2 30 mmol/L (21-32); CREATININE 0.7 mg/dL (0.55-1.3); GLUCOSE,RANDOM 205 mg/dL (74-106); MAGNESIUM 1.7 mg/dL (1.8-2.4); PHOSPHOROUS 3.1 mg/dL (2.5-4.9); POTASSIUM 3.6 mmol/L (3.5-5.1); SGOT/AST 15 U/L (15-37); SGPT/ALT 17 U/L (13-61); SODIUM 137 mmol/L (136-145); TOT PROT 8.2 g/dl (6.4-8.2)
--- NOTE | 2018-05-26 15:58 | DS ---
Physical Examination Vital Signs: Vital Signs Temperature 98.8 F 05/26/18 09:34 Pulse Rate 75 05/26/18 09:30 Respiratory Rate 18 05/26/18 09:30 Blood Pressure 169/99 05/26/18 09:30 O2 Sat by Pulse Oximetry (%) 97 05/26/18 09:30 Findings/Remarks: pt seen/ examined comfortable Constitutional: Yes: No Distress Neck: Yes: Supple Cardiovascular: Yes: Regular Rate and Rhythm Respiratory: Yes: Diminished Gastrointestinal: Yes: Soft Edema: No Labs: CBC, BMP 05/26/18 13:45 05/26/18 13:34 Discharge Summary Reason For Visit: BILOMA Current Active Problems Biloma (Acute) Hospital Course: Admission Notes The patient is a 78-year-old male with a past medical history of hypertension COPD CHF CVA, dementia and diabetes who was brought into the ED from [facility] after he was found to have pulled out his percutaneous cholecystostomy tube. The patient was recently admitted to [facility] on 04/13/18 for cholecystitis with bileoma. Cholecystostomy tube was placed and the drain was supposed to be kept in place for 6 to 8 weeks. Reported to me that Dr. Thompson Looked at ct scan -- tube in place - No surgery need to be done arrangements being made to go back to correction. will d/c pt still in er will follow official ct scan report Condition: Stable - Instructions Referrals: Tyrell Vanegas MD [Primary Care Provider] - Disposition: HOME - Home Medications Comprehensive Discharge Medication List: Ambulatory Orders Acetaminophen [Tylenol .Regular Strength -] 650 mg PO QID PRN 02/28/18 Ascorbic Acid [Vitamin C -] 500 mg PO AM 02/28/18 Atorvastatin Ca [Lipitor] 40 mg PO HS 02/28/18 Sennosides [Senna -] 2 tab PO HS 02/28/18 Insulin (Levemir) [Levemir Vial] 22 units SQ HS #30 units 03/22/18 Metoprolol Tartrate [Lopressor -] 50 mg PO BID #60 tablet 03/22/18 Ranitidine [Zantac -] 150 mg PO BID #60 tablet 03/22/18 Insulin Lispro [Humalog Kwikpen U-100] 100 unit SQ BID PRN 04/13/18 Potassium Chloride [K-Dur -] 20 meq PO DAILY #30 tablet.er 04/27/18 Albuterol 0.083% Nebulizer Bethanie [Ventolin 0.083% Nebulizer Soln -] 1 neb NEB Q6H 05/26/18 Apixaban [Eliquis] 5 mg PO AM 05/26/18 Cholecalciferol (Vitamin D3) [Vitamin D3 -] 1,000 unit PO DAILY 05/26/18 Furosemide [Lasix] 20 mg PO AM 05/26/18 Lisinopril [Prinivil] 40 mg PO AM 05/26/18 clonazePAM [Klonopin -] 0.5 mg PO BID 05/26/18
[2018-05-26 16:41] VITALS: BP 116/74; PULSE 69; TEMP 99
[2018-05-26] MEDS ORDERED: ATORVASTATIN CA 40 MG TABLET (FP) PO SCH (22:00)
[2018-05-26] MEDS ORDERED: SENNOSIDES 8.6MG TABLET (FP) PO SCH (22:00)
[2018-05-27] MEDS ORDERED: LISINOPRIL 20 MG TABLET (FP) PO SCH (10:00)
[2018-05-27] MEDS ORDERED: FUROSEMIDE 20 MG TABLET (FP) PO SCH (10:00)
== END 2018-05-26 20:08 ==
LOC: JER 18:16 → JERBED 22:36
PROVIDERS: ADMIT Internal Medicine; ATTEND Internal Medicine
PROC: 3E0F7GC Introduction of Other Therapeutic Substance into Respiratory Tract, Via Natural or Artificial Opening (ICD-10-PCS; principal; 2018-05-25)
DX: T85.628A Displacement of other specified internal prosthetic devices, implants and grafts, initial encounter (principal); K83.1 Obstruction of bile duct; Y82.8 Other medical devices associated with adverse incidents; Y92.9 Unspecified place or not applicable; Y83.8 Other surgical procedures as the cause of abnormal reaction of the patient, or of later complication, without mention of misadventure at the time of the procedure; I11.0 Hypertensive heart disease with heart failure; E78.5 Hyperlipidemia, unspecified; I50.9 Heart failure, unspecified; E11.9 Type 2 diabetes mellitus without complications; F03.90 Unspecified dementia, unspecified severity, without behavioral disturbance, psychotic disturbance, mood disturbance, and anxiety; Z86.73 Personal history of transient ischemic attack (TIA), and cerebral infarction without residual deficits; J44.9 Chronic obstructive pulmonary disease, unspecified; Z79.4 Long term (current) use of insulin
CPT/HCPCS: 36415; 71045-TC-FY; 74160-TC; 80053; 82962; 83735; 84100; 85025; 85027; 85610; 85730; 86850; 86900; 86901; 93005; 93010; 94640; 99282-25; G0378

== ENCOUNTER 2018-06-02 14:59 | Inpatient (IN) | payer OTHER ==
[2018-06-02] MEDS ORDERED: ACETAMINOPHEN 1000 MG/100 ML VIAL (NON FORMULARY) IVPB ONE (15:14)
[2018-06-02 15:55] LABS: BASO % 0.3 % (0-2.0); EOS % 0.1 % (0-4.5); HEMATOCRIT 35.1 % (35.4-49); HEMOGLOBIN 12.2 GM/dL (11.7-16.9); LYMPH % 23.6 % (8-40); MCHC 34.8 g/dl (32.0-35.9); MEAN CELL VOLUME 91.8 fl (80-96); MONO % 7.6 % (3.8-10.2); NEUT % 68.4 % (42.8-82.8); PLATELET COUNT 258 K/MM3 (134-434); RBC 3.83 M/mm3 (4.00-5.60); RDW 15.8 % (11.9-15.9); WHITE BLOOD COUNT 13.9 K/mm3 (4.0-10.0)
[2018-06-02] MEDS ORDERED: ACETAMINOPHEN INJECTION 100 ML IVPB ONE (15:57)
[2018-06-02 15:58] LABS: VENOUS PC02 42.5 mmHg (38-52); VENOUS PH 7.44 (7.32-7.42); VENOUS PO2 52.6 mmHg (28-48)
--- NOTE | 2018-06-02 16:03 | PDOC ---
History of Present Illness - General Chief Complaint: Chest Pain Stated Complaint: R/O SEPSIS Time Seen by Provider: 06/02/18 15:05 History Source: Family (daughter), Group Home Records, Old Records Exam Limitations: Clinical Condition - History of Present Illness Initial Comments: 06/02/18 16:00 Pt is a 78yo M with PMH of Afib (on Eliquis), HTN,DM, HLD, Cholecystitis s/p perc.earnestine s/p CHRISTIAN drain removal, CVA with R sided deficits brought from [facility] to r/o sepsis. Pt unable to verbalize however daughter states pt was pointing at chest today. Unsure how long pt has been having pain. Unable to obtain further information from pt. PMD: Guilherme PMH: see hpi Meds; see med rec Allergies: nkda Past History - Past Medical History Allergies/Adverse Reactions: Allergies Allergy/AdvReac Type Severity Reaction Status Date / Time No Known Allergies Allergy Verified 04/13/18 11:31 Home Medications: Ambulatory Orders Acetaminophen 650 mg PO QID PRN 06/02/18 Albuterol 2.5/Ipratropium 0.5 [Duoneb -] 1 neb IH QID 06/02/18 Apixaban [Eliquis] 5 mg PO BID 06/02/18 Ascorbic Acid 500 mg PO DAILY 06/02/18 Atorvastatin Ca [Lipitor] 40 mg PO HS 06/02/18 Furosemide 20 mg PO DAILY 06/02/18 Insulin Detemir [Levemir Flextouch] 22 unit SQ HS 06/02/18 Insulin Lispro [Humalog] 0 unit SQ BID 06/02/18 Lisinopril [Prinivil -] 40 mg PO DAILY 06/02/18 Metoprolol Tartrate [Lopressor] 50 mg PO BID 06/02/18 Oseltamivir Phosphate [Tamiflu] 75 mg PO DAILY 06/02/18 Potassium Chloride [Potassium Chloride Oral Liquid] 20 meq PO DAILY 06/02/18 Ranitidine [Zantac -] 150 mg PO BID 06/02/18 Sennosides [Senna] 2 tab PO HS 06/02/18 clonazePAM [Klonopin -] 0.5 mg PO BID 06/02/18 Anemia: No Asthma: No Cardiac Disorders: Yes (atrial fib) CVA: Yes (rt side hemiparesis) COPD: Yes CHF: No Diabetes: Yes GI Disorders: Yes (GERD) HTN: Yes Hypercholesterolemia: Yes - Surgical History GI Surgery: Yes (volvulus or ascending colon sx) Neurologic Surgery: No - Immunization History Immunization Up to Date: Yes - Suicide/Smoking/Psychosocial Hx Smoking Status: No Smoking History: Never smoked Have you smoked in the past 12 months: No Number of Cigarettes Smoked Daily: 0 If you are a former smoker, when did you quit?: 6 years ago Information on smoking cessation initiated: No Hx Alcohol Use: No Drug/Substance Use Hx: No Substance Use Type: None Hx Substance Use Treatment: No Review of Systems - Review of Systems Able to Perform ROS?: No *Physical Exam - Vital Signs Last Vital Signs Temp Pulse Resp BP Pulse Ox 101.8 F H 80 16 156/97 100 06/02/18 15:00 06/02/18 15:00 06/02/18 15:00 06/02/18 15:00 06/02/18 15:00 - Physical Exam General Appearance: Yes: Nourished, Appropriately Dressed, Other (Pt laying in bed, appears comfortable)) HEENT: positive: EOMI, JEREL, Pharynx Normal Neck: positive: Trachea midline, Supple. negative: Lymphadenopathy (R), Lymphadenopathy (L) Respiratory/Chest: positive: Other (course breath sounds in LLF and decreased in RLF). negative: Normal Breath Sounds, Respiratory Distress, Accessory Muscle Use, Rhonchi, Wheezing Cardiovascular: positive: Regular Rhythm, Regular Rate, S1, S2. negative: Edema , JVD, Murmur Vascular Pulses: Carotid (R): 2+, Carotid (L): 2+, Dorsalis-Pedis (R): 2+, Doralis-Pedis (L): 2+ Gastrointestinal/Abdominal: positive: Normal Bowel Sounds, Soft, Other ( colostomy bag in place. Healing surgical incisions). negative: Distended, Guarding, Rebound, Tenderness, Hernia Musculoskeletal: negative: CVA Tenderness Extremity: positive: Normal Capillary Refill, Pelvis Stable Integumentary: positive: Normal Color, Dry, Warm Neurologic: positive: Alert, Respond to painful stimul, Other (AOx1 (baseline). ). negative: Fully Oriented, Motor Strength 5/5 Moderate Sedation - Procedure Monitoring Vital Signs: Procedure Monitoring Vital Signs Temperature 101.8 F H 06/02/18 15:00 Pulse Rate 80 06/02/18 15:00 Respiratory Rate 16 06/02/18 15:00 Blood Pressure 156/97 06/02/18 15:00 O2 Sat by Pulse Oximetry (%) 100 06/02/18 15:00 ED Treatment Course - LABORATORY CBC & Chemistry Diagram: 06/02/18 22:25 06/02/18 15:20 - ADDITIONAL ORDERS Additional order review: 06/02/18 15:20 RBC 3.83 L MCV 91.8 MCHC 34.8 RDW 15.8 MPV 9.0 Neutrophils % 68.4 D Lymphocytes % 23.6 D Monocytes % 7.6 Eosinophils % 0.1 D Basophils % 0.3 - RADIOLOGY Radiology Studies Ordered: Category Date Time Status ABDOMEN & PELVIS CT WITH CONTR [CT] Stat CT Scan 06/02/18 15:58 Ordered CHEST X-RAY PORTABLE* [RAD] Stat Radiology 06/02/18 15:14 Ordered Medical Decision Making - Medical Decision Making 06/03/18 00:30 Pt is a 78yo M with PMH of Afib (on Eliquis), HTN,DM, HLD, Cholecystitis s/p perc.earnestine s/p CHRISTIAN drain removal, CVA with R sided deficits brought from [facility] to r/o sepsis. Pt unable to verbalize however daughter states pt was pointing at chest today. Unsure how long pt has been having pain. Unable to obtain further information from pt. Vitals: oral temp 101.8. Pt stating name. Otherwise unable to properly respond. PE: course breath sounds in LLF, decreased in R. normal heart sounds, nontender abdomen. neurologically at baseline per daughter. ddx includes sepsis (pna, abdominal pathology, uti, skin) -septic workup ordered, ekg, cxxr -in light of recent abdominal surgery, will order CTAP -CXR shows haziness in R lung field. Added on CTA chest. -WBC 14. lactate normal. glucose 300s. Trop 0.38. EKG does not show signs of magali or depressions. Afib. Wll repeat -vanc and zosyn, IV tylenol. -Pt cannot take PO (due to aspiration risk). Will give OR ASA 300. CT abdomen negative for acute pathology. CT chest shows consolidation in R upper and lower lung restrepo. Pt most likely has pna. Added on azithromycin iv. Repeat trop ordered (0.5), repeat ekg does not show acute changes. PT admitted for pna and nstemi. *DC/Admit/Observation/Transfer Diagnosis at time of Disposition: NSTEMI (non-ST elevated myocardial infarction) PNA (pneumonia) Qualifiers: Pneumonia type: due to unspecified organism Laterality: right Lung location: unspecified part of lung Qualified Code(s): J18.9 - Pneumonia, unspecified organism Sepsis Qualifiers: Sepsis type: sepsis due to unspecified organism Qualified Code(s): A41.9 - Sepsis, unspecified organism - Discharge Dispostion Condition at time of disposition: Good Decision to Admit order: Yes - Referrals - Patient Instructions - Post Discharge Activity
--- NOTE | 2018-06-02 16:12 | PDOC ---
Attending Attestation - HPI HPI: 06/02/18 16:29 The patient is a 78 year old male with a significant PMH of hypertension, hyperlipidemia, CHF, COPD, CVA, diabetes, and afib ( on eliquis) who presents to the emergency department via EMS from the [facility] with chest pain. As per [facility], the patient was noted to be febrile and more tired and less verbal than usual. Patient history is limited secondary to patient letharis status. - Physicial Exam PE: 06/02/18 16:29 Vitals: Triage vital signs reviewed General Appearance: (+)A&O X 0. Lethargic. No acute distress, well nourished, well developed Head: Atraumatic Neck: Supple; No nuchal rigidity Chest Wall: Nontender Cardiac: Regular rate and rhythm, no murmurs, no rubs, no gallops Lungs: Clear to auscultation bilateral, good air movement bilaterally Abdomen: (+)colostomy bag. Soft, nondistended, normal bowel sounds, nontender to palpation Genitourinary: Extremities: Full range of motion to all extremities, no cyanosis, clubbing, or edema Skin: Warm and dry, no rashes or lesions, no rash, no petechiae Neuro: AOX3; Cranial Nerves 2-12 grossly intact, Strength intact to all extremities, Sensation intact to all extremities, gait normal Psych: Normal mood, normal affect <Gala Salinas - Last Filed: 06/02/18 16:29> - Resident Resident Name: Janell López - ED Attending Attestation I have performed the following: I have examined & evaluated the patient, The case was reviewed & discussed with the resident, I agree w/resident's findings & plan, Exceptions are as noted - Medical Decision Making 06/02/18 16:43 The patient is a 78 year old male with a significant PMH of hypertension, hyperlipidemia, CHF, COPD, CVA, diabetes, and afib ( on eliquis) who presents to the emergency department via EMS from the [facility] with chest pain. As per [facility], the patient was noted to be febrile and more tired and less verbal than usual. Patient history is limited secondary to patient letharis status. Sepsis workup initiated Dr. Hoffman to follow-up results and reassess. <Rustam Hendrix - Last Filed: 06/02/18 16:44> Attestations - Attestations 06/02/18 16:30 Documentation prepared by Gala Salinas, acting as medical malpractice paralegal for Rustam Hendrix MD. <Gala Salinas - Last Filed: 06/02/18 16:29>
[2018-06-02 16:23] LABS: INR 1.52 (0.83-1.09)
[2018-06-02 16:26] LABS: ACTIVATED PTT 32.4 SECONDS (25.2-36.5)
[2018-06-02 16:29] LABS: ALBUMIN 2.6 g/dl (3.4-5.0); ALK PHOS 78 U/L (45-117); ANION GAP 7 MMOL/L (8-16); BILIRUBIN,TOTAL 0.7 mg/dL (0.2-1); BLOOD UREA NITROGEN 12 mg/dL (7-18); CALCIUM 8.7 mg/dL (8.5-10.1); CHLORIDE 103 mmol/L (98-107); CO2 30 mmol/L (21-32); CREATININE 0.9 mg/dL (0.55-1.3); POTASSIUM 3.9 mmol/L (3.5-5.1); SGOT/AST 22 U/L (15-37); SGPT/ALT 18 U/L (13-61); SODIUM 141 mmol/L (136-145); TOT PROT 8.3 g/dl (6.4-8.2)
[2018-06-02 16:44] LABS: GLUCOSE,RANDOM 383 mg/dL (74-106)
[2018-06-02] MEDS ORDERED: VANCOMYCIN 1 GM in D5W (PRE-DOCKED) 1,000 MG/250 ML IVPB ONE (16:57)
[2018-06-02] MEDS ORDERED: PIPERACILLIN/TAZOB 3.375 GM 3.375 GM in DEXTROSE 5%-WATER - 50 ML IVPB ONE (16:58)
[2018-06-02] MEDS ORDERED: VANCOMYCIN 1 GRAM (PRE-DOCKED) 1,000 MG/250 ML BAG IVPB ONE ×2 (17:09→20:32)
[2018-06-02] MEDS ORDERED: PIPERACILLIN/TAZOB 3.375 GM 3.375 GM/50 ML BAG IVPB ONE (17:10)
[2018-06-02] MEDS ORDERED: ASPIRIN 300 MG SUPP.RECT PR ONE (17:19)
[2018-06-02 17:50] LABS: URINE APPEARANCE CLEAR; URINE BILIRUBIN NEGATIVE (<2.0 mg/dL); URINE COLOR YELLOW; URINE GLUCOSE (UA) 3+ (NEGATIVE); URINE KETONE NEGATIVE (NEGATIVE); URINE LEUK ESTERASE NEGATIVE (NEGATIVE); URINE NITRITE NEGATIVE (NEGATIVE); URINE PROTEIN 1+ (NEGATIVE); URINE UROBILINOGEN NEGATIVE mg/dL (0.2-1.0)
[2018-06-02 18:07] LABS: URINE MUCUS RARE
--- NOTE | 2018-06-02 20:24 | PDOC ---
*Physical Exam - Vital Signs Last Vital Signs Temp Pulse Resp BP Pulse Ox 101.8 F H 80 16 156/97 100 06/02/18 15:00 06/02/18 15:00 06/02/18 15:00 06/02/18 15:00 06/02/18 15:00 ED Treatment Course - LABORATORY CBC & Chemistry Diagram: 06/06/18 06:00 06/06/18 06:00 - ADDITIONAL ORDERS Additional order review: Laboratory Results 06/02/18 06/02/18 06/02/18 17:31 15:20 15:20 PT with INR INR PTT (Actin FS) VBG pH POC VBG pCO2 POC VBG pO2 Mixed VBG HCO3 Sodium 141 Potassium 3.9 Chloride 103 Carbon Dioxide 30 Anion Gap 7 L BUN 12 Creatinine 0.9 Creat Clearance w eGFR > 60 Random Glucose 383 H* Lactic Acid 1.8 Calcium 8.7 Total Bilirubin 0.7 AST 22 ALT 18 Alkaline Phosphatase 78 Troponin I 0.38 H Total Protein 8.3 H Albumin 2.6 L Urine Color Yellow Urine Appearance Clear Urine pH 5.0 Ur Specific [place] 1.030 Urine Protein 1+ H Urine Glucose (UA) 3+ H Urine Ketones Negative Urine Blood 3+ H Urine Nitrite Negative Urine Bilirubin Negative Urine Urobilinogen Negative Ur Leukocyte Esterase Negative Urine WBC (Auto) 1 Urine RBC (Auto) 14 Urine Mucus Rare 06/02/18 06/02/18 15:20 15:20 PT with INR 18.00 H INR 1.52 H PTT (Actin FS) 32.4 VBG pH 7.44 H POC VBG pCO2 42.5 POC VBG pO2 52.6 H Mixed VBG HCO3 28.5 H Sodium Potassium Chloride Carbon Dioxide Anion Gap BUN Creatinine Creat Clearance w eGFR Random Glucose Lactic Acid Calcium Total Bilirubin AST ALT Alkaline Phosphatase Troponin I Total Protein Albumin Urine Color Urine Appearance Urine pH Ur Specific [place] Urine Protein Urine Glucose (UA) Urine Ketones Urine Blood Urine Nitrite Urine Bilirubin Urine Urobilinogen Ur Leukocyte Esterase Urine WBC (Auto) Urine RBC (Auto) Urine Mucus 06/02/18 15:20 RBC 3.83 L MCV 91.8 MCHC 34.8 RDW 15.8 MPV 9.0 Neutrophils % 68.4 D Lymphocytes % 23.6 D Monocytes % 7.6 Eosinophils % 0.1 D Basophils % 0.3 - Medications Given in the ED: ED Medications Discontinued Medications Generic Name Dose Route Start Last Admin Trade Name Brayan PRN Reason Stop Dose Admin Acetaminophen 1,000 mg 06/02/18 15:14 06/02/18 16:01 Ofirmev Injection - IVPB 06/02/18 15:15 1,000 mg ONCE ONE Administration Piperacillin Sod/Tazobactam 50 mls @ 100 mls/hr 06/02/18 16:58 06/02/18 17:30 Sod 3.375 gm/ Dextrose IVPB 06/02/18 17:27 100 mls/hr ONCE ONE Administration Protocol Medical Decision Making - Medical Decision Making 06/02/18 20:23 suspect possible pna - consiolidation noted on CTA pt on abx will admit for further management *DC/Admit/Observation/Transfer Diagnosis at time of Disposition: PNA (pneumonia), Sepsis, NSTEMI (non-ST elevated myocardial infarction) - Discharge Dispostion Condition at time of disposition: Good - Referrals - Patient Instructions - Post Discharge Activity
[2018-06-02] MEDS ORDERED: ASPIRIN 300 MG SUPP.RECT RC ONE (20:32)
[2018-06-02] MEDS ORDERED: AZITHROMYCIN IVPB 500 MG in DEXTROSE 5%-WATER - 250 ML IVPB ONE (21:20)
[2018-06-02] MEDS ORDERED: AZITHROMYCIN IVPB 500 MG/250 ML BAG IVPB ONE (21:34)
--- NOTE | 2018-06-02 22:14 | HP ---
CHIEF COMPLAINT:pointing to chest PCP: HISTORY OF PRESENT ILLNESS: The patient is a 78 year old male with a significant PMH of hypertension, dementia hyperlipidemia, CHF, COPD, CVA, diabetes, and afib ( on eliquis) who presents to the emergency department via EMS from the assisted with chest pain. As per assisted, the patient was noted to be febrile and more tired and less verbal than usual. Patient history is limited secondary to patient c status. He is recently discharged from hospital after J tube removal after gall bladder surgery, In er he has elevated troponin and elevated wbc count and possible sepsis and he has ct abd and pelvis done ER course was notable for: (1)elevated wbc count (2)elevated troponin count (3)pneumonia on ct scan Recent Travel: PAST MEDICAL HISTORY:hypertension,dementia hyperlipidemia, CHF, COPD, CVA, diabetes, and afib PAST SURGICAL HISTORY:gall bladder removal Social History: Smoking:none Alcohol:none Drugs: no h/o Family History: Allergies No Known Allergies Allergy (Verified 04/13/18 11:31) HOME MEDICATIONS: Home Medications Medication Instructions Recorded Acetaminophen 650 mg PO QID PRN 06/02/18 Albuterol 2.5/Ipratropium 0.5 1 neb IH QID 06/02/18 [Duoneb -] Apixaban [Eliquis] 5 mg PO BID 06/02/18 Ascorbic Acid 500 mg PO DAILY 06/02/18 Atorvastatin Ca [Lipitor] 40 mg PO HS 06/02/18 Furosemide 20 mg PO DAILY 06/02/18 Insulin Detemir [Levemir Flextouch] 22 unit SQ HS 06/02/18 Insulin Lispro [Humalog] 0 unit SQ BID 06/02/18 Lisinopril [Prinivil -] 40 mg PO DAILY 06/02/18 Metoprolol Tartrate [Lopressor] 50 mg PO BID 06/02/18 Oseltamivir Phosphate [Tamiflu] 75 mg PO DAILY 06/02/18 Potassium Chloride [Potassium 20 meq PO DAILY 06/02/18 Chloride Oral Liquid] Ranitidine [Zantac -] 150 mg PO BID 06/02/18 Sennosides [Senna] 2 tab PO HS 06/02/18 clonazePAM [Klonopin -] 0.5 mg PO BID 06/02/18 REVIEW OF SYSTEMS CONSTITUTIONAL: Absent: fever, chills, diaphoresis, generalized weakness, malaise, loss of appetite, weight change HEENT: Absent: rhinorrhea, nasal congestion, throat pain, throat swelling, difficulty swallowing, mouth swelling, ear pain, eye pain, visual changes CARDIOVASCULAR: Absent: syncope, palpitations, irregular heart rate, lightheadedness, peripheral edema,presnent pointing to chest by daughter RESPIRATORY: Absent: cough, shortness of breath, dyspnea with exertion, orthopnea, wheezing, stridor, hemoptysis GASTROINTESTINAL: Absent: abdominal pain, abdominal distension, nausea, vomiting, diarrhea, constipation, melena, hematochezia GENITOURINARY: Absent: dysuria, frequency, urgency, hesitancy, hematuria, flank pain, genital pain MUSCULOSKELETAL: Absent: myalgia, arthralgia, joint swelling, back pain, neck pain SKIN: Absent: rash, itching, pallor HEMATOLOGIC/IMMUNOLOGIC: Absent: easy bleeding, easy bruising, lymphadenopathy, frequent infections PHYSICAL EXAMINATION Vital Signs - 24 hr 06/02/18 15:00 Temperature 101.8 F H Pulse Rate 80 Respiratory 16 Rate Blood Pressure 156/97 O2 Sat by Pulse 100 Oximetry (%) GENERAL: no acute distress. HEAD: Normal with no signs of trauma. EYES: Pupils equal, round and reactive to light, extraocular movements intact, sclera anicteric, conjunctiva clear. No lid lag. EARS, NOSE, THROAT: Ears normal, nares patent, oropharynx clear without exudates. Moist mucous membranes. NECK: Normal range of motion, supple without lymphadenopathy, JVD, or masses. LUNGS: Breath sounds equal, clear to auscultation bilaterally. No wheezes, and no crackles. No accessory muscle use. HEART: Irregular rate and rhythm, normal S1 and S2 without murmur, rub or gallop. ABDOMEN: Soft, nontender, not distended, normoactive bowel sounds, no guarding, no rebound, no masses. No hepatomegaly or splenomegaly. MUSCULOSKELETAL: Normal range of motion at all joints. No bony deformities or tenderness. No CVA tenderness. UPPER EXTREMITIES: 2+ pulses, warm, well-perfused. No cyanosis. No clubbing. No peripheral edema. LOWER EXTREMITIES: 2+ pulses, warm, well-perfused. No calf tenderness. No peripheral edema. NEUROLOGICAL: He is responding to vocal commands by opening his eye and that is his usual mental status SKIN: Warm, dry, normal turgor, no rashes or lesions noted, normal capillary refill. Laboratory Results - last 24 hr 06/02/18 06/02/18 06/02/18 15:20 15:20 15:20 WBC 13.9 H RBC 3.83 L Hgb 12.2 Hct 35.1 L MCV 91.8 MCH 32.0 MCHC 34.8 RDW 15.8 Plt Count 258 MPV 9.0 Absolute Neuts (auto) 9.5 H Neutrophils % 68.4 D Lymphocytes % 23.6 D Monocytes % 7.6 Eosinophils % 0.1 D Basophils % 0.3 Nucleated RBC % 0 PT with INR 18.00 H INR 1.52 H PTT (Actin FS) 32.4 VBG pH 7.44 H POC VBG pCO2 42.5 POC VBG pO2 52.6 H Mixed VBG HCO3 28.5 H Sodium Potassium Chloride Carbon Dioxide Anion Gap BUN Creatinine Creat Clearance w eGFR Random Glucose Lactic Acid Calcium Total Bilirubin AST ALT Alkaline Phosphatase Troponin I Total Protein Albumin Urine Color Urine Appearance Urine pH Ur Specific [place] Urine Protein Urine Glucose (UA) Urine Ketones Urine Blood Urine Nitrite Urine Bilirubin Urine Urobilinogen Ur Leukocyte Esterase Urine WBC (Auto) Urine RBC (Auto) Urine Mucus Influenza A (Rapid) Influenza B (Rapid) 06/02/18 06/02/18 06/02/18 15:20 15:20 16:36 WBC RBC Hgb Hct MCV MCH MCHC RDW Plt Count MPV Absolute Neuts (auto) Neutrophils % Lymphocytes % Monocytes % Eosinophils % Basophils % Nucleated RBC % PT with INR INR PTT (Actin FS) VBG pH POC VBG pCO2 POC VBG pO2 Mixed VBG HCO3 Sodium 141 Potassium 3.9 Chloride 103 Carbon Dioxide 30 Anion Gap 7 L BUN 12 Creatinine 0.9 Creat Clearance w eGFR > 60 Random Glucose 383 H* Lactic Acid 1.8 Calcium 8.7 Total Bilirubin 0.7 AST 22 ALT 18 Alkaline Phosphatase 78 Troponin I 0.38 H Total Protein 8.3 H Albumin 2.6 L Urine Color Urine Appearance Urine pH Ur Specific [place] Urine Protein Urine Glucose (UA) Urine Ketones Urine Blood Urine Nitrite Urine Bilirubin Urine Urobilinogen Ur Leukocyte Esterase Urine WBC (Auto) Urine RBC (Auto) Urine Mucus Influenza A (Rapid) Negative Influenza B (Rapid) Negative 06/02/18 06/02/18 17:31 21:00 WBC RBC Hgb Hct MCV MCH MCHC RDW Plt Count MPV Absolute Neuts (auto) Neutrophils % Lymphocytes % Monocytes % Eosinophils % Basophils % Nucleated RBC % PT with INR INR PTT (Actin FS) VBG pH POC VBG pCO2 POC VBG pO2 Mixed VBG HCO3 Sodium Potassium Chloride Carbon Dioxide Anion Gap BUN Creatinine Creat Clearance w eGFR Random Glucose Lactic Acid Calcium Total Bilirubin AST ALT Alkaline Phosphatase Troponin I 0.55 H Total Protein Albumin Urine Color Yellow Urine Appearance Clear Urine pH 5.0 Ur Specific [place] 1.030 Urine Protein 1+ H Urine Glucose (UA) 3+ H Urine Ketones Negative Urine Blood 3+ H Urine Nitrite Negative Urine Bilirubin Negative Urine Urobilinogen Negative Ur Leukocyte Esterase Negative Urine WBC (Auto) 1 Urine RBC (Auto) 14 Urine Mucus Rare Influenza A (Rapid) Influenza B (Rapid) ASSESSMENT/PLAN: Pneumonia nosocomial start on zithromax anz zosyn awaiting official report of x rays elevated troponin admit to tele give him aspirin renew his beta kiran repeat cardiac enzymes Diabets levimir and regular insulin coverage htn lisinopril anxeity dementia klonopin hihg lipids atorvastatin copd nebuliezer treatment
[2018-06-02] MEDS ORDERED: ASPIRIN 81 MG CHEWABLE TABLETS PO ONE (22:23)
[2018-06-02] MEDS ORDERED: SODIUM CHLORIDE 1,000 ML IV SCH (22:30)
[2018-06-02] MEDS ORDERED: INSULIN (LEVEMIR) 100 UNITS/ML UNITS SQ SCH (22:45)
[2018-06-02] MEDS ORDERED: INSULIN (LEVEMIR) 100 UNITS/ML UNITS SQ ONE (23:02)
[2018-06-02 23:05] LABS: BASO % 0.6 % (0-2.0); EOS % 0.3 % (0-4.5); HEMATOCRIT 33.3 % (35.4-49); HEMOGLOBIN 11.8 GM/dL (11.7-16.9); LYMPH % 31.5 % (8-40); MCH 32.1 pg (25.7-33.7); MCHC 35.4 g/dl (32.0-35.9); MEAN CELL VOLUME 90.7 fl (80-96); MONO % 8.7 % (3.8-10.2); NEUT % 58.9 % (42.8-82.8); PLATELET COUNT 230 K/MM3 (134-434); RBC 3.67 M/mm3 (4.00-5.60)
[2018-06-03] MEDS ORDERED: PIPERACILLIN/TAZOBACTAM 3.375 GM VIAL IVPB ONE ×3 (01:12→17:20)
[2018-06-03] MEDS ORDERED: DEXTROSE 5%-WATER - 50 ML IVPB ONE ×3 (01:12→17:20)
[2018-06-03] MEDS: PIPERACILLIN/TAZOB 3.375 GM 3.375 GM in DEXTROSE 5%-WATER - 50 ML IVPB SCH ×3 (01:24→17:23)
[2018-06-03] MEDS: INSULIN SLIDING SCALE (NOVOLOG) 1 VIAL SQ SCH ×4 (06:04→22:21)
[2018-06-03 08:31] LABS: BASO % 0.4 % (0-2.0); HEMATOCRIT 32.3 % (35.4-49); HEMOGLOBIN 11.4 GM/dL (11.7-16.9); LYMPH % 26.8 % (8-40); MCHC 35.2 g/dl (32.0-35.9); MEAN CELL VOLUME 90.8 fl (80-96); MEAN PLT VOLUME 9.2 fl (7.5-11.1); MONO % 7.5 % (3.8-10.2); NEUT % 64.3 % (42.8-82.8); PLATELET COUNT 232 K/MM3 (134-434); RBC 3.55 M/mm3 (4.00-5.60); RDW 15.4 % (11.9-15.9); WHITE BLOOD COUNT 10.4 K/mm3 (4.0-10.0)
[2018-06-03 09:09] LABS: ANION GAP 8 MMOL/L (8-16); BLOOD UREA NITROGEN 11 mg/dL (7-18); CHLORIDE 106 mmol/L (98-107); CO2 29 mmol/L (21-32); CREATININE 0.7 mg/dL (0.55-1.3); GLUCOSE,RANDOM 244 mg/dL (74-106); POTASSIUM 3.4 mmol/L (3.5-5.1); SODIUM 142 mmol/L (136-145)
[2018-06-03] MEDS ORDERED: AZITHROMYCIN IVPB 500 MG in DEXTROSE 5%-WATER - 250 ML IVPB SCH (10:00)
[2018-06-03] MEDS ORDERED: PATIENT'S OWN MEDICATION (NON-FORMULARY) (Lisinopril [Prinivil -] 40 MG) PO SCH (10:00)
[2018-06-03] MEDS: METOPROLOL TARTRATE 50 MG TABLET (FP) PO SCH ×2 (10:14→22:22)
[2018-06-03] MEDS: FUROSEMIDE 20 MG TABLET (FP) PO SCH (10:14)
[2018-06-03] MEDS: APIXABAN 5 MG TABLET PO SCH ×2 (10:14→22:22)
[2018-06-03] MEDS: POTASSIUM CHLORIDE ORAL LIQUID 20 MEQ/15 ML PO SCH (10:14)
[2018-06-03] MEDS: clonazePAM 0.5 MG TABLET PO SCH ×2 (10:14→22:22)
[2018-06-03] MEDS: RANITIDINE HCL 150 MG TABLET (FP) PO SCH ×2 (10:14→22:22)
[2018-06-03] MEDS: ASCORBIC ACID 500 MG TABLET (FP) PO SCH (10:14)
[2018-06-03] MEDS: LISINOPRIL 20 MG TABLET (FP) PO SCH (10:14)
[2018-06-03] MEDS ORDERED: AZITHROMYCIN IVPB 500 MG/250 ML BAG IVPB SCH (10:45)
--- NOTE | 2018-06-03 10:50 | PN ---
Progress Note (short form) - Note Progress Note: Events noted sent from [facility] for possible sepsis Noted to be febrile in NH pt examined today in tele Denies chest pain he is awake and alert coughing+ Vital Signs - 24 hr 06/02/18 06/02/18 06/03/18 15:00 23:08 01:07 Temperature 101.8 F H 99.2 F 98.6 F Pulse Rate 80 62 Pulse Rate [ 77 Left Apical] Respiratory 16 20 18 Rate Blood Pressure 156/97 134/78 Blood Pressure 139/90 [Left Arm] O2 Sat by Pulse 100 95 96 Oximetry (%) 06/03/18 06/03/18 06/03/18 03:34 03:35 08:38 Temperature 98.8 F Pulse Rate 80 Pulse Rate [ Left Apical] Respiratory 18 18 Rate Blood Pressure 146/76 Blood Pressure [Left Arm] O2 Sat by Pulse 95 95 Oximetry (%) Current Medications Generic Name Dose Route Start Last Admin Trade Name Freq PRN Reason Stop Dose Admin Acetaminophen 650 mg 06/02/18 22:21 Tylenol - PO Q6H PRN PAIN Apixaban 5 mg 06/03/18 10:00 06/03/18 10:14 Eliquis - PO 5 mg BID FLORIN Administration Ascorbic Acid 500 mg 06/03/18 10:00 06/03/18 10:14 Vitamin C - PO 500 mg DAILY FLORIN Administration Atorvastatin Calcium 40 mg 06/03/18 22:00 Lipitor - PO HS FLORIN Clonazepam 0.5 mg 06/03/18 10:00 06/03/18 10:14 Klonopin - PO 0.5 mg BID FLORIN Administration Furosemide 20 mg 06/03/18 10:00 06/03/18 10:14 Lasix - PO 20 mg DAILY FLORIN Administration Sodium Chloride 1,000 mls @ 50 mls/hr 06/02/18 22:30 06/02/18 22:57 Normal Saline - IV 06/03/18 22:19 50 mls/hr ASDIR FLORIN Administration Piperacillin Sod/Tazobactam 50 mls @ 100 mls/hr 06/03/18 18:00 Sod 3.375 gm/ Dextrose IVPB Q8H-IV FLORIN Protocol Azithromycin 500 mg in 250 mls @ 250 mls/hr 06/03/18 10:45 Zithromax 500mg Ivpb (Pre-Docked) IVPB DAILY [facility] Insulin Aspart 1 vial 06/03/18 07:00 06/03/18 06:04 Novolog Vial Sliding Scale - SQ 6 units ACHS [facility] Administration Protocol Insulin Detemir 22 units 06/02/18 22:45 06/02/18 23:07 Levemir Vial SQ 22 unit HS [facility] Administration Lisinopril 40 mg 06/03/18 10:00 06/03/18 10:14 Prinivil PO 40 mg DAILY [facility] Administration Metoprolol Tartrate 50 mg 06/03/18 10:00 06/03/18 10:14 Lopressor - PO 50 mg BID FLORIN Administration Potassium Chloride 20 meq 06/03/18 10:00 06/03/18 10:14 Potassium Chloride Oral Liquid PO 20 meq DAILY [facility] Administration Ranitidine HCl 150 mg 06/03/18 10:00 06/03/18 10:14 Zantac - PO 150 mg BID FLORIN Administration Senna 2 tab 06/03/18 22:00 Senna - PO HS [facility] Laboratory Results - last 24 hr 06/02/18 06/02/18 06/02/18 15:20 15:20 15:20 WBC 13.9 H RBC 3.83 L Hgb 12.2 Hct 35.1 L MCV 91.8 MCH 32.0 MCHC 34.8 RDW 15.8 Plt Count 258 MPV 9.0 Absolute Neuts (auto) 9.5 H Neutrophils % 68.4 D Lymphocytes % 23.6 D Monocytes % 7.6 Eosinophils % 0.1 D Basophils % 0.3 Nucleated RBC % 0 PT with INR 18.00 H INR 1.52 H PTT (Actin FS) 32.4 VBG pH 7.44 H POC VBG pCO2 42.5 POC VBG pO2 52.6 H Mixed VBG HCO3 28.5 H Sodium Potassium Chloride Carbon Dioxide Anion Gap BUN Creatinine Creat Clearance w eGFR POC Glucometer Random Glucose Lactic Acid Calcium Total Bilirubin AST ALT Alkaline Phosphatase Troponin I Total Protein Albumin Urine Color Urine Appearance Urine pH Ur Specific [place] Urine Protein Urine Glucose (UA) Urine Ketones Urine Blood Urine Nitrite Urine Bilirubin Urine Urobilinogen Ur Leukocyte Esterase Urine WBC (Auto) Urine RBC (Auto) Urine Mucus Influenza A (Rapid) Influenza B (Rapid) 06/02/18 06/02/18 06/02/18 15:20 15:20 16:36 WBC RBC Hgb Hct MCV MCH MCHC RDW Plt Count MPV Absolute Neuts (auto) Neutrophils % Lymphocytes % Monocytes % Eosinophils % Basophils % Nucleated RBC % PT with INR INR PTT (Actin FS) VBG pH POC VBG pCO2 POC VBG pO2 Mixed VBG HCO3 Sodium 141 Potassium 3.9 Chloride 103 Carbon Dioxide 30 Anion Gap 7 L BUN 12 Creatinine 0.9 Creat Clearance w eGFR > 60 POC Glucometer Random Glucose 383 H* Lactic Acid 1.8 Calcium 8.7 Total Bilirubin 0.7 AST 22 ALT 18 Alkaline Phosphatase 78 Troponin I 0.38 H Total Protein 8.3 H Albumin 2.6 L Urine Color Urine Appearance Urine pH Ur Specific [place] Urine Protein Urine Glucose (UA) Urine Ketones Urine Blood Urine Nitrite Urine Bilirubin Urine Urobilinogen Ur Leukocyte Esterase Urine WBC (Auto) Urine RBC (Auto) Urine Mucus Influenza A (Rapid) Negative Influenza B (Rapid) Negative 06/02/18 06/02/18 06/02/18 17:31 21:00 22:25 WBC RBC Hgb Hct MCV MCH MCHC RDW Plt Count MPV Absolute Neuts (auto) Neutrophils % Lymphocytes % Monocytes % Eosinophils % Basophils % Nucleated RBC % PT with INR INR PTT (Actin FS) VBG pH POC VBG pCO2 POC VBG pO2 Mixed VBG HCO3 Sodium Potassium Chloride Carbon Dioxide Anion Gap BUN Creatinine Creat Clearance w eGFR POC Glucometer Random Glucose Lactic Acid 1.6 Calcium Total Bilirubin AST ALT Alkaline Phosphatase Troponin I 0.55 H Total Protein Albumin Urine Color Yellow Urine Appearance Clear Urine pH 5.0 Ur Specific [place] 1.030 Urine Protein 1+ H Urine Glucose (UA) 3+ H Urine Ketones Negative Urine Blood 3+ H Urine Nitrite Negative Urine Bilirubin Negative Urine Urobilinogen Negative Ur Leukocyte Esterase Negative Urine WBC (Auto) 1 Urine RBC (Auto) 14 Urine Mucus Rare Influenza A (Rapid) Influenza B (Rapid) 06/02/18 06/02/18 06/03/18 22:25 22:59 06:00 WBC 12.0 H RBC 3.67 L Hgb 11.8 Hct 33.3 L MCV 90.7 MCH 32.1 MCHC 35.4 RDW 16.0 H Plt Count 230 MPV 9.0 Absolute Neuts (auto) 7.1 Neutrophils % 58.9 Lymphocytes % 31.5 D Monocytes % 8.7 Eosinophils % 0.3 D Basophils % 0.6 Nucleated RBC % 0 PT with INR INR PTT (Actin FS) VBG pH POC VBG pCO2 POC VBG pO2 Mixed VBG HCO3 Sodium Potassium Chloride Carbon Dioxide Anion Gap BUN Creatinine Creat Clearance w eGFR POC Glucometer 326 268 Random Glucose Lactic Acid Calcium Total Bilirubin AST ALT Alkaline Phosphatase Troponin I Total Protein Albumin Urine Color Urine Appearance Urine pH Ur Specific [place] Urine Protein Urine Glucose (UA) Urine Ketones Urine Blood Urine Nitrite Urine Bilirubin Urine Urobilinogen Ur Leukocyte Esterase Urine WBC (Auto) Urine RBC (Auto) Urine Mucus Influenza A (Rapid) Influenza B (Rapid) 06/03/18 06/03/18 06:45 06:45 WBC 10.4 H RBC 3.55 L Hgb 11.4 L Hct 32.3 L MCV 90.8 MCH 32.0 MCHC 35.2 RDW 15.4 Plt Count 232 MPV 9.2 Absolute Neuts (auto) 6.7 Neutrophils % 64.3 Lymphocytes % 26.8 Monocytes % 7.5 Eosinophils % 1.0 D Basophils % 0.4 Nucleated RBC % 0 PT with INR INR PTT (Actin FS) VBG pH POC VBG pCO2 POC VBG pO2 Mixed VBG HCO3 Sodium 142 Potassium 3.4 L Chloride 106 Carbon Dioxide 29 Anion Gap 8 BUN 11 Creatinine 0.7 Creat Clearance w eGFR > 60 POC Glucometer Random Glucose 244 H Lactic Acid Calcium 9.0 Total Bilirubin AST ALT Alkaline Phosphatase Troponin I Total Protein Albumin Urine Color Urine Appearance Urine pH Ur Specific [place] Urine Protein Urine Glucose (UA) Urine Ketones Urine Blood Urine Nitrite Urine Bilirubin Urine Urobilinogen Ur Leukocyte Esterase Urine WBC (Auto) Urine RBC (Auto) Urine Mucus Influenza A (Rapid) Influenza B (Rapid) No pallor S1 S2 Irregular Lungs decreased breath soundsAbd- soft, NT, colostomy+ No edema PLAN Sepsis -- cultures drawn, pending -- CT abd, CT chest done-- results pending -- on IV natibiotics -- pt had chronic cholecystitis - had a calin drain placed last admission , was removed -- ID eval elevated troponins -- as per note- pt had pointed to his chest -- on NTG patch -- trend troponins -- tele monitoring -- Cardiology eval -- on Eliquis Afib - rate is controlled -- on Eliquis Diabetes -- sugars are high -- will increase insulin DVT prophylaxis - on eliquis Problem List - Problems (1) NSTEMI (non-ST elevated myocardial infarction) Code(s): I21.4 - NON-ST ELEVATION (NSTEMI) MYOCARDIAL INFARCTION (2) Sepsis Code(s): A41.9 - SEPSIS, UNSPECIFIED ORGANISM Qualifiers: Sepsis type: sepsis due to unspecified organism Qualified Code(s): A41.9 - Sepsis, unspecified organism (3) COPD (chronic obstructive pulmonary disease) Code(s): J44.9 - CHRONIC OBSTRUCTIVE PULMONARY DISEASE, UNSPECIFIED Qualifiers: Emphysema type: unspecified (4) Diabetes Code(s): E11.9 - TYPE 2 DIABETES MELLITUS WITHOUT COMPLICATIONS (5) Elevated troponin Code(s): R74.8 - ABNORMAL LEVELS OF OTHER SERUM ENZYMES
--- NOTE | 2018-06-03 13:54 | PN ---
Progress Note (short form) - Note Progress Note: ID CONSULT DICTATED RUL, RLL HCAP FEVER/ LEUKOCYTOSIS R/O SEPSIS TOXIC METABOLIC ENCEPHALOPATHY DIABETES MELLITUS OBTAIN SPUTUM C/S , URINE LEGIONELLA/ PNEUMOCOCCAL AG EMPIRIC ZOSYN
--- NOTE | 2018-06-03 14:31 | CONS ---
INFECTIOUS DISEASE CONSULTATION DATE OF CONSULTATION: DATE OF DICTATION: 06/03/2018 Patient is a 78-year-old male with a history of multiple recent hospitalizations, who is evaluated for pneumonia. He is a long-term resident. At the long-term, he began pointing at his chest and was noted to be febrile with increased lethargy. The patient is apparently nonverbal at baseline. A concern about sepsis was expressed. He was transferred to the emergency room where he was noted to have fever 101.8 and a white blood cell count of 13.9. Chest x-ray showed poor inspiratory effort, elevated right hemidiaphragm, and a CAT scan of the chest, abdomen, and pelvis was performed and showed a right upper and right lower lobe infiltrate. He was empirically treated with Zithromax and Zosyn. The patient was noted to have an elevated troponin and was transferred to telemetry. At the present time, he is awake and alert. He is seated in bed. He is being fed. He is not verbal. However, he is awake and responsive. His breathing is non-labored. He is noted to have cough. PAST MEDICAL HISTORY: Positive for atrial fibrillation, hypertension, diabetes, hyperlipidemia, stroke, gastroesophageal reflux, congestive heart failure, COPD, history of cholecystitis status post percutaneous cholecystostomy tube which has been removed, history of volvulus requiring colectomy and colostomy. ALLERGIES: No known allergies. MEDICATIONS AT PRESENT: Include Zithromax, Zosyn, Tylenol, albuterol, Eliquis, aspirin, Lipitor, Lasix, insulin, lisinopril, metoprolol, Zantac. SOCIAL HISTORY: Presently residing in a group home facility. No active tobacco or alcohol use. SYSTEMS REVIEW: Neurologic: Positive for stroke. Cardiac: Negative chest pain or palpitations. Respiratory: As per HPI. Gastrointestinal: Positive for colostomy and history of cholecystostomy tube. Genitourinary: Negative for urinary tract infection. LABORATORY DATA: White count on admission 13.9, hematocrit 32.3, 232. BUN 11, creatinine 0.7. Liver enzymes normal. Flu swab negative. Urinalysis: White cells 1. Blood and urine cultures pending. PHYSICAL EXAMINATION: General: The patient is seated in bed. He is in no acute distress. Breathing is non-labored. Vital Signs: Temperature 97.8, T-max 101.8; blood pressure 163/82; pulse 100, regular; respirations 18 per minute. HEENT: Sclerae are anicteric. Heart: Sounds S1, S2. Lungs: Rhonchi bilaterally. Abdomen: Soft, obese, nontender. Colostomy present. Extremities: Negative for edema. Negative Homans sign. IMPRESSION: 1. Healthcare-acquired pneumonia, right upper lobe, right lower lobe. 2. Fever, leukocytosis; rule out sepsis. 3. Toxic metabolic encephalopathy. 4. Diabetes mellitus. Obtain sputum culture, urine Legionella and pneumococcal antigens, continue empiric Zosyn. Would hold off on Zithromax as patient has had a history of prolonged QT interval in the past. Aspiration precautions. Will follow. Thank you for the kind referral. PARRISH ANDERSON M.D. [id number]
--- NOTE | 2018-06-03 14:40 | EKG ---
Test Reason : Blood Pressure : / mmHG Vent. Rate : 086 BPM Atrial Rate : 086 BPM P-R Int : 160 ms QRS Dur : 088 ms QT Int : 328 ms P-R-T Axes : 055 -34 -41 degrees QTc Int : 392 ms SINUS RHYTHM WITH BLOCKED PREMATURE ATRIAL COMPLEXES LEFT AXIS DEVIATION NONSPECIFIC T WAVE ABNORMALITY ABNORMAL ECG WHEN COMPARED WITH ECG OF 25-MAY-2018 23:25, NO SIGNIFICANT CHANGE WAS FOUND Confirmed by Roe Walters MD ([id number]) on 06/03/2018 2:40:23 PM Referred By: Confirmed By:Roe Walters MD
--- NOTE | 2018-06-03 14:42 | EKG ---
Test Reason : Blood Pressure : / mmHG Vent. Rate : 095 BPM Atrial Rate : 095 BPM P-R Int : 158 ms QRS Dur : 086 ms QT Int : 356 ms P-R-T Axes : 057 -42 -29 degrees QTc Int : 447 ms SINUS RHYTHM WITH PREMATURE ATRIAL COMPLEXES WITH ABERRANT CONDUCTION LEFT AXIS DEVIATION ABNORMAL ECG WHEN COMPARED WITH ECG OF 25-MAY-2018 23:25, VENT. RATE HAS INCREASED BY 31 BPM Confirmed by Roe Walters MD ([id number]) on 06/03/2018 2:41:46 PM Referred By: Confirmed By:Roe Walters MD
[2018-06-03] MEDS ORDERED: PIPERACILLIN/TAZOB 3.375 GM 3.375 GM in DEXTROSE 5%-WATER - 50 ML IVPB SCH (18:00)
[2018-06-03] MEDS: ACETAMINOPHEN 325 MG TABLET (FP) PO PRN (20:29)
[2018-06-03] MEDS ORDERED: INSULIN DETEMIR 22 UNIT SQ SCH (22:00)
[2018-06-03] MEDS: ALBUTEROL SO4 2.5/IPRATROPIUM 0.5 INH SOL 3 ML VIAL.NEB. NEB PRN (22:05)
[2018-06-03] MEDS: ATORVASTATIN CA 40 MG TABLET (FP) PO SCH (22:22)
[2018-06-03] MEDS: SENNOSIDES 8.6MG TABLET (FP) PO SCH (22:22)
[2018-06-03] MEDS: INSULIN (LEVEMIR) 100 UNITS/ML UNITS SQ SCH (22:23)
[2018-06-04] MEDS ORDERED: DEXTROSE 5%-WATER - 50 ML IVPB ONE ×3 (01:32→16:41)
[2018-06-04] MEDS ORDERED: PIPERACILLIN/TAZOBACTAM 3.375 GM VIAL IVPB ONE ×3 (01:32→16:41)
[2018-06-04] MEDS: PIPERACILLIN/TAZOB 3.375 GM 3.375 GM in DEXTROSE 5%-WATER - 50 ML IVPB SCH ×3 (02:17→17:33)
[2018-06-04] MEDS: INSULIN SLIDING SCALE (NOVOLOG) 1 VIAL SQ SCH ×4 (06:26→21:09)
[2018-06-04 07:22] LABS: BASO % 0.3 % (0-2.0); EOS % 1.4 % (0-4.5); HEMATOCRIT 33.4 % (35.4-49); HEMOGLOBIN 11.7 GM/dL (11.7-16.9); LYMPH % 34.7 % (8-40); MEAN CELL VOLUME 91.5 fl (80-96); MEAN PLT VOLUME 9.3 fl (7.5-11.1); MONO % 9.1 % (3.8-10.2); NEUT % 54.5 % (42.8-82.8); PLATELET COUNT 234 K/MM3 (134-434); RBC 3.65 M/mm3 (4.00-5.60); RDW 15.9 % (11.9-15.9); WHITE BLOOD COUNT 10.7 K/mm3 (4.0-10.0)
[2018-06-04 07:44] LABS: ANION GAP 8 MMOL/L (8-16); BLOOD UREA NITROGEN 10 mg/dL (7-18); CALCIUM 8.6 mg/dL (8.5-10.1); CHLORIDE 108 mmol/L (98-107); CO2 29 mmol/L (21-32); CREATININE 0.7 mg/dL (0.55-1.3); GLUCOSE,RANDOM 171 mg/dL (74-106); POTASSIUM 3.3 mmol/L (3.5-5.1); SODIUM 145 mmol/L (136-145)
--- NOTE | 2018-06-04 08:26 | PN ---
Progress Note (short form) - Note Progress Note: Chief Complaint: Events noted, notes reviewed, lethargic but arousable, in no distress, unable to provide history History of Present Illness: Seen and examined on telemetry. Full consult dictated Echocardiography dated 12/20/2017 revealed normal LV size and function, trace MR and TR Medications: Current Medications Acetaminophen (Tylenol -) 650 mg PO Q6H PRN PRN Reason: PAIN Last Admin: 06/03/18 20:29 Dose: 650 mg Albuterol/Ipratropium (Duoneb -) 1 amp NEB Q4H PRN PRN Reason: SHORTNESS OF BREATH Last Admin: 06/03/18 22:05 Dose: 1 amp Apixaban (Eliquis -) 5 mg PO BID [facility] Last Admin: 06/03/18 22:22 Dose: 5 mg Ascorbic Acid (Vitamin C -) 500 mg PO DAILY [facility] Last Admin: 06/03/18 10:14 Dose: 500 mg Atorvastatin Calcium (Lipitor -) 40 mg PO HS [facility] Last Admin: 06/03/18 22:22 Dose: 40 mg Clonazepam (Klonopin -) 0.5 mg PO BID [facility] Last Admin: 06/03/18 22:22 Dose: 0.5 mg Furosemide (Lasix -) 20 mg PO DAILY [facility] Last Admin: 06/03/18 10:14 Dose: 20 mg Piperacillin Sod/Tazobactam (Sod 3.375 gm/ Dextrose) 50 mls @ 100 mls/hr IVPB Q8H-IV [facility]; Protocol Last Admin: 06/04/18 02:17 Dose: 100 mls/hr Insulin Aspart (Novolog Vial Sliding Scale -) 1 vial SQ ACHS [facility]; Protocol Last Admin: 06/04/18 06:26 Dose: 2 units Insulin Detemir (Levemir Vial) 24 units SQ HS [facility] Last Admin: 06/03/18 22:23 Dose: 24 units Lisinopril (Prinivil) 40 mg PO DAILY [facility] Last Admin: 06/03/18 10:14 Dose: 40 mg Metoprolol Tartrate (Lopressor -) 50 mg PO BID [facility] Last Admin: 06/03/18 22:22 Dose: 50 mg Potassium Chloride (Potassium Chloride Oral Liquid) 20 meq PO DAILY [facility] Last Admin: 06/03/18 10:14 Dose: 20 meq Ranitidine HCl (Zantac -) 150 mg PO BID [facility] Last Admin: 06/03/18 22:22 Dose: 150 mg Senna (Senna -) 2 tab PO HS [facility] Last Admin: 06/03/18 22:22 Dose: 2 tab Review Of Systems: Unable to obtain Vital Signs: Last Vital Signs Temp Pulse Resp BP Pulse Ox 98.7 F 80 20 160/81 96 06/04/18 06:49 06/04/18 06:49 06/04/18 06:49 06/04/18 06:49 06/03/18 20:01 Intake & Output 06/01/18 06/02/18 06/03/18 06/04/18 23:59 23:59 23:59 23:59 Intake Total 260 500 Balance 260 500 Weight 195 lb 193 lb 12.8 oz Neck: Supple Negative JVD No Bruit Respiratory: Diminished Breath Sounds at the Bases Bilateral Scattered Rhonchi Cardiovascular: S1 S2 Regularly Rate and Rhythm Gastrointestinal: Soft Benign Normal Bowel Sounds Ext: Trace Edema Bilateral Labs: Troponin, BNP 06/03/18 11:45 Troponin I 0.28 H CBC, BMP 06/04/18 06:30 06/04/18 06:30 Hepatic Panel Total Bilirubin 0.7 mg/dL (0.2-1) 06/02/18 15:20 AST 22 U/L (15-37) 06/02/18 15:20 ALT 18 U/L (13-61) 06/02/18 15:20 Alkaline Phosphatase 78 U/L (45-117) 06/02/18 15:20 Albumin 2.6 g/dl (3.4-5.0) L 06/02/18 15:20 INR, PTT INR 1.52 (0.83-1.09) H 06/02/18 15:20 Assessment/Plan ASSESSMENT: 1. Respiratory distress, related to recurrent aspiration pneumonia 2. 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 Diastolic LV dysfunction with clinical class 0-I NYHA classification LV failure, clinically compensated/euvolemic 4. Paroxysmal atrial fibrillation [id number] score 7 on DOAC's/Eliquis, currently in sinus rhythm 5. 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 History of CVA with residual right-sided weakness 7. HTN 8. Diabetes Mellitus 9. Hypercholesterolemia 10. History of intermittent sigmoid volvulus post rectal tube decompression post sigmoid colectomy, colostomy and umbilical hernia repair PLAN: 1. Continue Lopressor 2. Continue Lisinopril 3. Continue Lipitor 4. Continue Eliquis with caution and close monitoring of CBC 5. Continue Lasix and K-Dur/K- level correction 6. Antibiotics as per the primary team 7. Recommend conservative medical management considering his advanced co- morbidities Kadeem Barba M.D.
--- NOTE | 2018-06-04 09:00 | PN ---
Progress Note (short form) - Note Progress Note: Events noted sent from [facility] for possible sepsis coughing+ awake Vital Signs - 24 hr 06/03/18 06/03/18 06/03/18 20:01 20:22 21:00 Temperature 100.4 F H 99.2 F Pulse Rate 98 H Respiratory 20 Rate Blood Pressure 140/86 O2 Sat by Pulse 96 Oximetry (%) 06/04/18 06/04/18 06/04/18 02:00 06:49 10:00 Temperature 97.8 F 98.7 F 98.4 F Pulse Rate 116 H 80 82 Respiratory 20 20 20 Rate Blood Pressure 159/84 160/81 150/78 O2 Sat by Pulse 96 Oximetry (%) 06/04/18 13:56 Temperature 98.2 F Pulse Rate 78 Respiratory 20 Rate Blood Pressure 136/76 O2 Sat by Pulse Oximetry (%) S1 S2 Irregular Current Medications Generic Name Dose Route Start Last Admin Trade Name Freq PRN Reason Stop Dose Admin Acetaminophen 650 mg 06/02/18 22:21 06/03/18 20:29 Tylenol - PO 650 mg Q6H PRN Administration PAIN Albuterol/Ipratropium 1 amp 06/03/18 12:15 06/03/18 22:05 Duoneb - NEB 1 amp Q4H PRN Administration SHORTNESS OF BREATH Apixaban 5 mg 06/03/18 10:00 06/04/18 10:56 Eliquis - PO 5 mg BID [facility] Administration Ascorbic Acid 500 mg 06/03/18 10:00 06/04/18 10:56 Vitamin C - PO 500 mg DAILY [facility] Administration Atorvastatin Calcium 40 mg 06/03/18 22:00 06/03/18 22:22 Lipitor - PO 40 mg HS [facility] Administration Clonazepam 0.5 mg 06/03/18 10:00 06/04/18 10:56 Klonopin - PO 0.5 mg BID [facility] Administration Furosemide 20 mg 06/03/18 10:00 06/04/18 10:56 Lasix - PO 20 mg DAILY [facility] Administration Piperacillin Sod/Tazobactam 50 mls @ 100 mls/hr 06/03/18 18:00 06/04/18 10:57 Sod 3.375 gm/ Dextrose IVPB 100 mls/hr Q8H-IV [facility] Administration Protocol Insulin Aspart 1 vial 06/03/18 07:00 06/04/18 12:17 Novolog Vial Sliding Scale - SQ 4 units ACHS [facility] Administration Protocol Insulin Detemir 24 units 06/03/18 11:15 06/03/18 22:23 Levemir Vial SQ 24 units HS [facility] Administration Lisinopril 40 mg 06/03/18 10:00 06/04/18 10:56 Prinivil PO 40 mg DAILY [facility] Administration Metoprolol Tartrate 50 mg 06/03/18 10:00 06/04/18 10:56 Lopressor - PO 50 mg BID [facility] Administration Potassium Chloride 20 meq 06/03/18 10:00 06/04/18 10:56 Potassium Chloride Oral Liquid PO 20 meq DAILY [facility] Administration Ranitidine HCl 150 mg 06/03/18 10:00 06/04/18 10:56 Zantac - PO 150 mg BID [facility] Administration Senna 2 tab 06/03/18 22:00 06/03/18 22:22 Senna - PO 2 tab HS [facility] Administration Laboratory Results - last 24 hr 06/03/18 06/03/18 06/04/18 16:33 22:20 06:22 WBC RBC Hgb Hct MCV MCH MCHC RDW Plt Count MPV Absolute Neuts (auto) Neutrophils % Lymphocytes % Monocytes % Eosinophils % Basophils % Nucleated RBC % Sodium Potassium Chloride Carbon Dioxide Anion Gap BUN Creatinine Creat Clearance w eGFR POC Glucometer 318 280 181 Random Glucose Calcium 06/04/18 06/04/18 06/04/18 06:30 06:30 12:07 WBC 10.7 H RBC 3.65 L Hgb 11.7 Hct 33.4 L MCV 91.5 MCH 32.0 MCHC 35.0 RDW 15.9 Plt Count 234 MPV 9.3 Absolute Neuts (auto) 5.8 Neutrophils % 54.5 Lymphocytes % 34.7 D Monocytes % 9.1 Eosinophils % 1.4 Basophils % 0.3 Nucleated RBC % 0 Sodium 145 Potassium 3.3 L Chloride 108 H Carbon Dioxide 29 Anion Gap 8 BUN 10 Creatinine 0.7 Creat Clearance w eGFR > 60 POC Glucometer 247 Random Glucose 171 H Calcium 8.6 Lungs decreased breath sounds Abd- soft, NT, colostomy+ No edema PLAN Sepsis,pneumonia -- cultures negative -- CT abd, CT chest done-- results noted -- on IV antibiotics -- pt had chronic cholecystitis - had a calin drain placed last admission , was removed -- ID eval noted --chest pt --nebs elevated troponins -- decreased trend -- on NTG patch -- Cardiology eval noted -- on Eliquis Afib - rate is controlled -- on Eliquis Diabetes -- sugars are high -- will increase insulin DVT prophylaxis - on eliquis Problem List - Problems (1) NSTEMI (non-ST elevated myocardial infarction) Code(s): I21.4 - NON-ST ELEVATION (NSTEMI) MYOCARDIAL INFARCTION (2) Sepsis Code(s): A41.9 - SEPSIS, UNSPECIFIED ORGANISM Qualifiers: Sepsis type: sepsis due to unspecified organism Qualified Code(s): A41.9 - Sepsis, unspecified organism (3) COPD (chronic obstructive pulmonary disease) Code(s): J44.9 - CHRONIC OBSTRUCTIVE PULMONARY DISEASE, UNSPECIFIED Qualifiers: Emphysema type: unspecified Qualified Code(s): J43.9 - Emphysema, unspecified (4) Diabetes Code(s): E11.9 - TYPE 2 DIABETES MELLITUS WITHOUT COMPLICATIONS (5) Elevated troponin Code(s): R74.8 - ABNORMAL LEVELS OF OTHER SERUM ENZYMES
[2018-06-04] MEDS ORDERED: POTASSIUM CHLORIDE ORAL LIQUID 20 MEQ/15 ML PO ONE (09:15)
[2018-06-04] MEDS ORDERED: PT OWN MED DRAWER 7, Y5N ONE (10:51)
[2018-06-04] MEDS: ASCORBIC ACID 500 MG TABLET (FP) PO SCH (10:56)
[2018-06-04] MEDS: RANITIDINE HCL 150 MG TABLET (FP) PO SCH ×2 (10:56→21:09)
[2018-06-04] MEDS: POTASSIUM CHLORIDE ORAL LIQUID 20 MEQ/15 ML PO SCH (10:56)
[2018-06-04] MEDS: LISINOPRIL 20 MG TABLET (FP) PO SCH (10:56)
[2018-06-04] MEDS: clonazePAM 0.5 MG TABLET PO SCH ×2 (10:56→21:09)
[2018-06-04] MEDS: FUROSEMIDE 20 MG TABLET (FP) PO SCH (10:56)
[2018-06-04] MEDS: METOPROLOL TARTRATE 50 MG TABLET (FP) PO SCH ×2 (10:56→21:09)
[2018-06-04] MEDS: APIXABAN 5 MG TABLET PO SCH ×2 (10:56→21:09)
[2018-06-04 15:49] VITALS: BMI 29.3
--- NOTE | 2018-06-04 16:48 | CONS ---
DATE OF CONSULTATION: 06/04/2018 CONSULTATION REQUESTED BY: Evelyne Miller MD CHIEF COMPLAINT: Altered mental status, respiratory distress, evaluation of cardiovascular status. History was predominantly obtained from the chart. 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 A 78-year-old male, of descent, with known history of coronary artery disease, angina pectoris, prior history of demand ischemic injury, diastolic left ventricular dysfunction, with clinical class 1[place] Heart Association classification left ventricular failure, paroxysmal atrial fibrillation, [id number] score of 7, on anticoagulation therapy, cerebrovascular disease with residual deficit, hypertensive cardiovascular disease, hypercholesterolemia, multiple hospitalizations at [facility] for aspiration pneumonia, and in addition, intermittent sigmoid volvulus post sigmoid colectomy with repair of an umbilical hernia, resident of an extended care facility, who presented to [facility], where he was noted to be in mild to moderate degree of respiratory distress with altered mental status. Upon evaluation in the emergency room, patient was noted to have evidence of aspiration pneumonia and, in addition, patient was noted to have elevated troponin I, suggestive of acute coronary syndrome/demand ischemic injury. Patient currently is lethargic but arousable, does not appear to be in any distress, does not provide any additional history, as noted above. PAST MEDICAL HISTORY: Coronary artery disease, angina pectoris, history of demand ischemia, diastolic left ventricular dysfunction with chronic class 0 to 1New [place] Heart Association classification left ventricular failure, paroxysmal atrial fibrillation, on anticoagulation therapy, cerebrovascular disease with residual deficit, history of toxic metabolic encephalopathy, hypertension, hypercholesterolemia, recurrent aspiration pneumonias, sigmoid volvulus post sigmoid colectomy and repair of an umbilical hernia. SOCIAL HISTORY: Resides in an extended care facility. FAMILY HISTORY: Unknown. ALLERGIES: None reported. Medical therapy currently includes acetaminophen 650 mg every 6 hours as needed, DuoNeb nebulizer as needed, Eliquis 5 mg twice a day, vitamin C 500 mg once a day, Lipitor 40 mg once a day, Klonopin 0.5 mg twice a day, Lasix 20 mg once a day, piperacillin with tazobactam 3.375 g every 8 hours, insulin coverage, lisinopril 40 mg once a day, Lopressor 50 mg twice a day, potassium chloride 20 mEq once a day, Zantac 150 mg twice a day, senna 2 tablets once daily. REVIEW OF SYSTEMS: Not obtainable. PHYSICAL EXAMINATION: Vital Signs: Blood pressure is 160/81 mmHg. Pulse rate is 80 beats per minute. Head and Neck: Pupils are equally reactive to light and accommodation. Extraocular muscles cannot be evaluated since patient is uncooperative. Anicteric sclerae. Neck: Supple. Negative JVD. No bruit appreciated. Chest: Diminished breath sounds at the bases with scattered rhonchi. Cardiovascular: S1, S2 regular. Abdomen: Soft, benign. Extremities: Trace edema. Diminished distal pulses. Electrocardiogram revealed sinus rhythm with premature supraventricular contractions and nonspecific ST-segment and T-wave abnormality. Troponin I levels were noted. Most recent repeat is 0.28. CBC revealed a white cell count 10.7, hemoglobin 11.7, platelets 234. Basic metabolic profile revealed sodium 145, potassium 3.3, BUN 10, creatinine 0.7, glucose 171, AST 22, ALT 18, INR 1.52. ASSESSMENT: 1. Respiratory distress related to recurrent aspiration pneumonia. 2. Coronary artery disease, angina pectoris, with evidence of demand ischemia, clinically stable. 3. Diastolic left ventricular dysfunction with clinical class 0 to 1 [place] Heart Association classification left ventricular failure, clinically compensated/euvolemic. 4. Paroxysmal atrial fibrillation, CHADS-VASc score of 7, on Eliquis therapy, currently in sinus rhythm. 5. 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 6. History of cerebrovascular disease with residual deficit. 7. Hypertension. 8. Hypercholesterolemia. 9. Hyperglycemia/diabetes mellitus. 10. History of intermittent sigmoid volvulus, post rectal tube decompression, post sigmoid colectomy, and repair of umbilical hernia. RECOMMENDATION: 1. Continuation of Lopressor therapy. 2. Continuation of lisinopril therapy. 3. Continuation of Lipitor therapy. 4. Continuation of Eliquis therapy with caution and close monitoring of CBC. 5. Continuation of Lasix and K-Dur therapies and potassium level correction. 6. Antibiotics as per the primary team. 7. Recommend conservative medical management, considering his advanced co-morbidities. Thank you for the kind referral. LIANNE HADDAD M.D. ROSINA/[id number]
[2018-06-04] MEDS: ALBUTEROL SO4 2.5/IPRATROPIUM 0.5 INH SOL 3 ML VIAL.NEB. NEB PRN (20:35)
[2018-06-04] MEDS: INSULIN (LEVEMIR) 100 UNITS/ML UNITS SQ SCH (21:09)
[2018-06-04] MEDS: ATORVASTATIN CA 40 MG TABLET (FP) PO SCH (21:09)
[2018-06-04] MEDS: SENNOSIDES 8.6MG TABLET (FP) PO SCH (21:09)
[2018-06-05] MEDS ORDERED: DEXTROSE 5%-WATER - 50 ML IVPB ONE ×4 (03:40→15:48)
[2018-06-05] MEDS ORDERED: PIPERACILLIN/TAZOBACTAM 3.375 GM VIAL IVPB ONE ×4 (03:40→15:48)
[2018-06-05] MEDS: PIPERACILLIN/TAZOB 3.375 GM 3.375 GM in DEXTROSE 5%-WATER - 50 ML IVPB SCH ×3 (03:41→17:06)
[2018-06-05] MEDS: ACETAMINOPHEN 325 MG TABLET (FP) PO PRN (06:24)
[2018-06-05] MEDS: INSULIN SLIDING SCALE (NOVOLOG) 1 VIAL SQ SCH ×4 (06:32→22:04)
[2018-06-05] MEDS: ALBUTEROL SO4 2.5/IPRATROPIUM 0.5 INH SOL 3 ML VIAL.NEB. NEB PRN (07:17)
[2018-06-05 07:44] LABS: HEMATOCRIT 30.5 % (35.4-49); HEMOGLOBIN 10.5 GM/dL (11.7-16.9); MCH 31.3 pg (25.7-33.7); MCHC 34.6 g/dl (32.0-35.9); MEAN CELL VOLUME 90.5 fl (80-96); MEAN PLT VOLUME 9.3 fl (7.5-11.1); PLATELET COUNT 250 K/MM3 (134-434); RBC 3.37 M/mm3 (4.00-5.60); RDW 15.5 % (11.9-15.9); WHITE BLOOD COUNT 7.5 K/mm3 (4.0-10.0)
[2018-06-05 08:10] LABS: ANION GAP 5 MMOL/L (8-16); BLOOD UREA NITROGEN 9 mg/dL (7-18); CALCIUM 8.4 mg/dL (8.5-10.1); CHLORIDE 109 mmol/L (98-107); CO2 31 mmol/L (21-32); CREATININE 0.7 mg/dL (0.55-1.3); GLUCOSE,RANDOM 223 mg/dL (74-106); POTASSIUM 3.4 mmol/L (3.5-5.1); SODIUM 144 mmol/L (136-145)
[2018-06-05] MEDS: ASCORBIC ACID 500 MG TABLET (FP) PO SCH (09:10)
[2018-06-05] MEDS: METOPROLOL TARTRATE 50 MG TABLET (FP) PO SCH ×2 (09:10→22:00)
[2018-06-05] MEDS: POTASSIUM CHLORIDE ORAL LIQUID 20 MEQ/15 ML PO SCH (09:10)
[2018-06-05] MEDS: RANITIDINE HCL 150 MG TABLET (FP) PO SCH ×2 (09:10→22:00)
[2018-06-05] MEDS: FUROSEMIDE 20 MG TABLET (FP) PO SCH (09:10)
[2018-06-05] MEDS: APIXABAN 5 MG TABLET PO SCH ×2 (09:10→21:59)
[2018-06-05] MEDS: LISINOPRIL 20 MG TABLET (FP) PO SCH (09:10)
[2018-06-05] MEDS: clonazePAM 0.5 MG TABLET PO SCH ×2 (09:10→22:00)
--- NOTE | 2018-06-05 09:20 | PN ---
Progress Note, Physician History of Present Illness: Tolerating aspiration diet feedings, febrile. - Current Medication List Current Medications: Active Medications Acetaminophen (Tylenol -) 650 mg PO Q6H PRN PRN Reason: PAIN Last Admin: 06/05/18 06:24 Dose: 650 mg Albuterol/Ipratropium (Duoneb -) 1 amp NEB Q4H PRN PRN Reason: SHORTNESS OF BREATH Last Admin: 06/05/18 07:17 Dose: 1 amp Apixaban (Eliquis -) 5 mg PO BID [facility] Last Admin: 06/05/18 09:10 Dose: 5 mg Ascorbic Acid (Vitamin C -) 500 mg PO DAILY [facility] Last Admin: 06/05/18 09:10 Dose: 500 mg Atorvastatin Calcium (Lipitor -) 40 mg PO HS [facility] Last Admin: 06/04/18 21:09 Dose: 40 mg Clonazepam (Klonopin -) 0.5 mg PO BID [facility] Last Admin: 06/05/18 09:10 Dose: 0.5 mg Furosemide (Lasix -) 20 mg PO DAILY [facility] Last Admin: 06/05/18 09:10 Dose: 20 mg Piperacillin Sod/Tazobactam (Sod 3.375 gm/ Dextrose) 50 mls @ 100 mls/hr IVPB Q8H-IV [facility]; Protocol Last Admin: 06/05/18 09:14 Dose: 100 mls/hr Insulin Aspart (Novolog Vial Sliding Scale -) 1 vial SQ ACHS [facility]; Protocol Last Admin: 06/05/18 06:32 Dose: 4 units Insulin Detemir (Levemir Vial) 24 units SQ [facility] Last Admin: 06/04/18 21:09 Dose: 24 units Lisinopril (Prinivil) 40 mg PO DAILY [facility] Last Admin: 06/05/18 09:10 Dose: 40 mg Metoprolol Tartrate (Lopressor -) 50 mg PO BID [facility] Last Admin: 06/05/18 09:10 Dose: 50 mg Potassium Chloride (Potassium Chloride Oral Liquid) 20 meq PO DAILY [facility] Last Admin: 06/05/18 09:10 Dose: 20 meq Ranitidine HCl (Zantac -) 150 mg PO BID [facility] Last Admin: 06/05/18 09:10 Dose: 150 mg Senna (Senna -) 2 tab PO HS [facility] Last Admin: 02/10/19 21:09 Dose: 2 tab - Objective Vital Signs: Vital Signs Temperature 101.2 F H 06/05/18 06:00 Pulse Rate 84 06/05/18 06:00 Respiratory Rate 20 06/05/18 08:18 Blood Pressure 156/91 06/05/18 06:00 O2 Sat by Pulse Oximetry (%) 96 06/05/18 08:18 Constitutional: Yes: No Distress, Calm Neck: Yes: Supple Cardiovascular: Yes: Regular Rate and Rhythm Respiratory: Yes: Regular, Diminished Gastrointestinal: Yes: Normal Bowel Sounds, Soft Edema: No Labs: CBC, BMP 06/05/18 06:30 06/05/18 06:30 INR, PTT INR 1.52 (0.83-1.09) H 06/02/18 15:20 Problem List - Problems (1) Paroxysmal atrial fibrillation Code(s): I48.0 - PAROXYSMAL ATRIAL FIBRILLATION (2) Pneumonia Code(s): J18.9 - PNEUMONIA, UNSPECIFIED ORGANISM Qualifiers: Pneumonia type: due to unspecified organism Laterality: right Lung location: unspecified part of lung Qualified Code(s): J18.9 - Pneumonia, unspecified organism (3) Sepsis Code(s): A41.9 - SEPSIS, UNSPECIFIED ORGANISM Qualifiers: Sepsis type: sepsis due to unspecified organism Qualified Code(s): A41.9 - Sepsis, unspecified organism (4) Chronic anticoagulation Code(s): Z79.01 - [employer] (CURRENT) USE OF ANTICOAGULANTS (5) Demand ischemia Code(s): I24.8 - OTHER FORMS OF ACUTE ISCHEMIC HEART DISEASE (6) Diabetes Code(s): E11.9 - TYPE 2 DIABETES MELLITUS WITHOUT COMPLICATIONS Qualifiers: Diabetes mellitus type: type 2 (7) Diastolic dysfunction Code(s): I51.9 - HEART DISEASE, UNSPECIFIED (8) H/O: CVA (cerebrovascular accident) Code(s): Z86.73 - PRSNL HX OF TIA (TIA), AND CEREB INFRC W/O RESID DEFICITS (9) Hyperlipidemia Code(s): E78.5 - HYPERLIPIDEMIA, UNSPECIFIED Qualifiers: Hyperlipidemia type: pure hypercholesterolemia Qualified Code(s): E78.00 - Pure hypercholesterolemia, unspecified; E78.0 - Pure hypercholesterolemia (10) Leucocytosis Code(s): D72.829 - ELEVATED WHITE BLOOD CELL COUNT, UNSPECIFIED (11) Toxic metabolic encephalopathy Code(s): G92 - TOXIC ENCEPHALOPATHY Assessment/Plan Echocardiography dated 12/20/2017 revealed normal LV size and function, trace MR and TR 1. Respiratory distress, related to recurrent RLL aspiration pneumonia 2. 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 Diastolic LV dysfunction with clinical class 0-I NYHA classification LV failure, clinically compensated/euvolemic 4. Paroxysmal atrial fibrillation [id number] score 7 on DOAC's/Eliquis, currently in sinus rhythm 5. History of CVA with residual right-sided weakness 7. HTN 8. Diabetes Mellitus 9. Hypercholesterolemia 10. History of intermittent sigmoid volvulus post rectal tube decompression post sigmoid colectomy, colostomy and umbilical hernia repair PLAN: 1. Continue Lopressor 50 bid 2. Continue Lisinopril 40 qd 3. Continue Lipitor 40 qhs 4. Continue Eliquis 5 bid with caution and close monitoring of CBC 5. Continue Lasix 20 qd and K repletion 6. Empiric antibiotic course per ID, f/u C&S 7. Recommend conservative medical management considering his advanced co- morbidities
[2018-06-05] MEDS ORDERED: INSULIN (LEVEMIR) 100 UNITS/ML UNITS SQ SCH (13:00)
[2018-06-05] MEDS ORDERED: POTASSIUM CHLORIDE ORAL LIQUID 20 MEQ/15 ML PO ONE (13:00)
--- NOTE | 2018-06-05 13:03 | PN ---
Progress Note (short form) - Note Progress Note: pt seen/ examined chart reviewed awake/ comfortable chronic ill appearance no distress Vital Signs Temp 98.8 F 06/05/18 10:00 Pulse 88 06/05/18 10:00 Resp 20 06/05/18 10:00 BP 154/86 06/05/18 10:00 Pulse Ox 96 06/05/18 08:18 Intake & Output 06/04/18 06/05/18 06/05/18 23:59 11:59 23:59 Intake Total 1150 150 Balance 1150 150 Weight 193 lb Intake: IV 500 Normal Saline - 1,000 ml 500 @ 50 mls/hr IV [facility] Rx#:[id number] IVPB 200 Oral 450 150 Other: Voiding Method Incontinent Incontinent # Unmeasured Voids Void 2 2 Bowel Movement Yes: colostomy Height 5 ft 8 in Body Mass Index (BMI) 29.3 Active Medications Acetaminophen (Tylenol -) 650 mg PO Q6H PRN PRN Reason: PAIN Last Admin: 06/05/18 06:24 Dose: 650 mg Albuterol/Ipratropium (Duoneb -) 1 amp NEB Q4H PRN PRN Reason: SHORTNESS OF BREATH Last Admin: 06/05/18 07:17 Dose: 1 amp Apixaban (Eliquis -) 5 mg PO BID [facility] Last Admin: 06/05/18 09:10 Dose: 5 mg Ascorbic Acid (Vitamin C -) 500 mg PO DAILY [facility] Last Admin: 06/05/18 09:10 Dose: 500 mg Atorvastatin Calcium (Lipitor -) 40 mg PO HS [facility] Last Admin: 06/04/18 21:09 Dose: 40 mg Clonazepam (Klonopin -) 0.5 mg PO BID [facility] Last Admin: 06/05/18 09:10 Dose: 0.5 mg Furosemide (Lasix -) 20 mg PO DAILY [facility] Last Admin: 06/05/18 09:10 Dose: 20 mg Piperacillin Sod/Tazobactam (Sod 3.375 gm/ Dextrose) 50 mls @ 100 mls/hr IVPB Q8H-IV [facility]; Protocol Last Admin: 06/05/18 09:14 Dose: 100 mls/hr Insulin Aspart (Novolog Vial Sliding Scale -) 1 vial SQ ACHS [facility]; Protocol Last Admin: 06/05/18 12:14 Dose: 4 units Insulin Detemir (Levemir Vial) 28 units SQ [facility] Lisinopril (Prinivil) 40 mg PO DAILY [facility] Last Admin: 06/05/18 09:10 Dose: 40 mg Metoprolol Tartrate (Lopressor -) 50 mg PO BID [facility] Last Admin: 06/05/18 09:10 Dose: 50 mg Potassium Chloride (Potassium Chloride Oral Liquid) 20 meq PO DAILY [facility] Last Admin: 06/05/18 09:10 Dose: 20 meq Potassium Chloride (Potassium Chloride Oral Liquid) 40 meq PO ONCE ONE Stop: 06/05/18 13:01 Ranitidine HCl (Zantac -) 150 mg PO BID [facility] Last Admin: 06/05/18 09:10 Dose: 150 mg Senna (Senna -) 2 tab PO HS [facility] Last Admin: 06/04/18 21:09 Dose: 2 tab CBC, BMP 06/05/18 06:30 06/05/18 06:30 Microbiology 06/02/18 15:45 Blood Culture - Preliminary Blood - Peripheral Venous NO GROWTH OBTAINED AFTER 48 HOURS, INCUBATION TO CONTINUE FOR 3 DAYS. 06/02/18 15:20 Blood Culture - Preliminary Blood - Peripheral Venous NO GROWTH OBTAINED AFTER 48 HOURS, INCUBATION TO CONTINUE FOR 3 DAYS. 06/02/18 17:31 Urine Culture - Final Urine - Urine Davis NO GROWTH OBTAINED physical exam awake -Speaks slowly-few words- Neck supple Lungs diminished CVS--S1 and S2 regular Abdomen--soft--- colostomy bag in place Extremities--no edema assessment and plan sepsis toxic metabolic Encephalopathy other problems as listed Clinically better continue abx k supplement increase Levemir-- Monitor pulmonary consult--CT scan reviewed----mucous plugging right bronchus Pneumonia nebulizer treatment we will follow
[2018-06-05] MEDS: ALBUTEROL SO4 2.5/IPRATROPIUM 0.5 INH SOL 3 ML VIAL.NEB. NEB SCH ×3 (13:50→20:11)
--- NOTE | 2018-06-05 15:41 | PN ---
Progress Note, Physician History of Present Illness: AWAKE, NOT VERBALLY RESPONSIVE TEMP SPIKE NOTED WBC IMPROVED C/S NO GROWTH - Current Medication List Current Medications: Active Medications Acetaminophen (Tylenol -) 650 mg PO Q6H PRN PRN Reason: PAIN Last Admin: 06/05/18 06:24 Dose: 650 mg Albuterol/Ipratropium (Duoneb -) 1 amp NEB Q4H PRN PRN Reason: SHORTNESS OF BREATH Last Admin: 06/05/18 07:17 Dose: 1 amp Albuterol/Ipratropium (Duoneb -) 1 amp NEB RQID [facility] Last Admin: 06/05/18 13:50 Dose: 1 amp Apixaban (Eliquis -) 5 mg PO BID [facility] Last Admin: 06/05/18 09:10 Dose: 5 mg Ascorbic Acid (Vitamin C -) 500 mg PO DAILY [facility] Last Admin: 06/05/18 09:10 Dose: 500 mg Atorvastatin Calcium (Lipitor -) 40 mg PO HS [facility] Last Admin: 06/04/18 21:09 Dose: 40 mg Clonazepam (Klonopin -) 0.5 mg PO BID [facility] Last Admin: 06/05/18 09:10 Dose: 0.5 mg Furosemide (Lasix -) 20 mg PO DAILY [facility] Last Admin: 06/05/18 09:10 Dose: 20 mg Piperacillin Sod/Tazobactam (Sod 3.375 gm/ Dextrose) 50 mls @ 100 mls/hr IVPB Q8H-IV [facility]; Protocol Last Admin: 06/05/18 09:14 Dose: 100 mls/hr Insulin Aspart (Novolog Vial Sliding Scale -) 1 vial SQ [facility]; Protocol Last Admin: 06/05/18 12:14 Dose: 4 units Insulin Detemir (Levemir Vial) [address] [facility] Lisinopril (Prinivil) 40 mg PO DAILY [facility] Last Admin: 06/05/18 09:10 Dose: 40 mg Metoprolol Tartrate (Lopressor -) 50 mg PO BID [facility] Last Admin: 06/05/18 09:10 Dose: 50 mg Potassium Chloride (Potassium Chloride Oral Liquid) 20 meq PO DAILY [facility] Last Admin: 06/05/18 09:10 Dose: 20 meq Ranitidine HCl (Zantac -) 150 mg PO BID [facility] Last Admin: 06/05/18 09:10 Dose: 150 mg Senna (Senna -) 2 tab PO HS [facility] Last Admin: 06/04/18 21:09 Dose: 2 tab - Objective Vital Signs: Vital Signs Temperature 97.7 F 06/05/18 13:52 Pulse Rate 76 06/05/18 13:52 Respiratory Rate 20 06/05/18 13:52 Blood Pressure 142/84 06/05/18 13:52 O2 Sat by Pulse Oximetry (%) 96 06/05/18 08:18 Constitutional: Yes: No Distress Eyes: Yes: Conjunctiva Clear Cardiovascular: Yes: Regular Rate and Rhythm, S1, S2 Respiratory: Yes: Diminished Gastrointestinal: Yes: Normal Bowel Sounds, Soft. No: Tenderness Edema: Yes Labs: CBC, BMP 06/05/18 06:30 06/05/18 06:30 INR, PTT INR 1.52 (0.83-1.09) H 06/02/18 15:20 Assessment/Plan R HCAP FEVER LEUKOCYTOSIS- IMPROVED TOXIC METABOLIC ENCEPHALOPATHY DM CONTINUE ZOSYN RECULTURE FOR RECURRENT TEMP
[2018-06-05] MEDS: SENNOSIDES 8.6MG TABLET (FP) PO SCH (21:59)
[2018-06-05] MEDS: ATORVASTATIN CA 40 MG TABLET (FP) PO SCH (22:00)
[2018-06-06] MEDS ORDERED: DEXTROSE 5%-WATER - 50 ML IVPB ONE ×3 (01:09→16:55)
[2018-06-06] MEDS ORDERED: PIPERACILLIN/TAZOBACTAM 3.375 GM VIAL IVPB ONE ×3 (01:09→16:55)
[2018-06-06] MEDS: PIPERACILLIN/TAZOB 3.375 GM 3.375 GM in DEXTROSE 5%-WATER - 50 ML IVPB SCH ×3 (01:37→17:03)
[2018-06-06] MEDS: INSULIN SLIDING SCALE (NOVOLOG) 1 VIAL SQ SCH ×4 (06:36→22:34)
[2018-06-06 06:42] LABS: BASO % 0.6 % (0-2.0); EOS % 3.5 % (0-4.5); HEMATOCRIT 33.4 % (35.4-49); HEMOGLOBIN 11.6 GM/dL (11.7-16.9); LYMPH % 40.7 % (8-40); MCH 31.9 pg (25.7-33.7); MCHC 34.8 g/dl (32.0-35.9); MEAN CELL VOLUME 91.7 fl (80-96); MEAN PLT VOLUME 9.6 fl (7.5-11.1); MONO % 9.3 % (3.8-10.2); NEUT % 45.9 % (42.8-82.8); PLATELET COUNT 251 K/MM3 (134-434); RBC 3.64 M/mm3 (4.00-5.60); RDW 15.2 % (11.9-15.9); WHITE BLOOD COUNT 9.1 K/mm3 (4.0-10.0)
[2018-06-06] MEDS: ALBUTEROL SO4 2.5/IPRATROPIUM 0.5 INH SOL 3 ML VIAL.NEB. NEB SCH ×4 (07:27→20:39)
[2018-06-06 09:01] LABS: ALBUMIN 2.2 g/dl (3.4-5.0); ALK PHOS 63 U/L (45-117); ANION GAP 6 MMOL/L (8-16); BILIRUBIN,TOTAL 0.4 mg/dL (0.2-1); CALCIUM 8.8 mg/dL (8.5-10.1); CHLORIDE 108 mmol/L (98-107); CO2 30 mmol/L (21-32); CREATININE 0.7 mg/dL (0.55-1.3); GLUCOSE,RANDOM 179 mg/dL (74-106); POTASSIUM 3.9 mmol/L (3.5-5.1); SGPT/ALT 21 U/L (13-61); SODIUM 144 mmol/L (136-145); TOT PROT 7.2 g/dl (6.4-8.2)
[2018-06-06] MEDS: POTASSIUM CHLORIDE ORAL LIQUID 20 MEQ/15 ML PO SCH (09:10)
[2018-06-06] MEDS: clonazePAM 0.5 MG TABLET PO SCH ×2 (09:11→22:33)
[2018-06-06] MEDS: METOPROLOL TARTRATE 50 MG TABLET (FP) PO SCH ×2 (09:12→22:34)
[2018-06-06] MEDS: FUROSEMIDE 20 MG TABLET (FP) PO SCH (09:12)
[2018-06-06] MEDS: APIXABAN 5 MG TABLET PO SCH ×2 (09:12→22:34)
[2018-06-06] MEDS: LISINOPRIL 20 MG TABLET (FP) PO SCH (09:12)
[2018-06-06] MEDS: ASCORBIC ACID 500 MG TABLET (FP) PO SCH (09:12)
[2018-06-06] MEDS: RANITIDINE HCL 150 MG TABLET (FP) PO SCH ×2 (09:12→22:34)
--- NOTE | 2018-06-06 11:29 | PN ---
Progress Note (short form) - Note Progress Note: awake , no distress, remains afebrile, ate without difficulty Vital Signs - 24 hr 06/05/18 06/05/18 06/05/18 13:52 17:05 21:00 Temperature 97.7 F 97.3 F L 98.4 F Pulse Rate 76 85 88 Respiratory 20 20 20 Rate Blood Pressure 142/84 131/75 142/85 O2 Sat by Pulse 97 Oximetry (%) 06/06/18 06/06/18 01:00 06:00 Temperature 98.8 F 97.5 F L Pulse Rate 71 78 Respiratory 20 20 Rate Blood Pressure 131/90 151/77 O2 Sat by Pulse Oximetry (%) Current Medications Generic Name Dose Route Start Last Admin Trade Name Freq PRN Reason Stop Dose Admin Acetaminophen 650 mg 06/02/18 22:21 06/05/18 06:24 Tylenol - PO 650 mg Q6H PRN Administration PAIN Albuterol/Ipratropium 1 amp 06/03/18 12:15 06/05/18 07:17 Duoneb - NEB 1 amp Q4H PRN Administration SHORTNESS OF BREATH Albuterol/Ipratropium 1 amp 06/05/18 13:15 06/06/18 11:06 Duoneb - NEB 1 amp RQID [facility] Administration Apixaban 5 mg 06/03/18 10:00 06/06/18 09:12 Eliquis - PO 5 mg BID [facility] Administration Ascorbic Acid 500 mg 06/03/18 10:00 06/06/18 09:12 Vitamin C - PO 500 mg DAILY [facility] Administration Atorvastatin Calcium 40 mg 06/03/18 22:00 06/05/18 22:00 Lipitor - PO 40 mg HS [facility] Administration Clonazepam 0.5 mg 06/03/18 10:00 06/06/18 09:11 Klonopin - PO 0.5 mg BID [facility] Administration Furosemide 20 mg 06/03/18 10:00 06/06/18 09:12 Lasix - PO 20 mg DAILY [facility] Administration Piperacillin Sod/Tazobactam 50 mls @ 100 mls/hr 06/03/18 18:00 06/06/18 09:09 Sod 3.375 gm/ Dextrose IVPB 100 mls/hr Q8H-IV [facility] Administration Protocol Insulin Aspart 1 vial 06/03/18 07:00 06/06/18 11:59 Novolog Vial Sliding Scale - SQ 4 units ACHS [facility] Administration Protocol Insulin Detemir 28 units 06/05/18 13:00 06/05/18 22:02 Levemir Vial SQ 28 units HS [facility] Administration Lisinopril 40 mg 06/03/18 10:00 06/06/18 09:12 Prinivil PO 40 mg DAILY [facility] Administration Metoprolol Tartrate 50 mg 06/03/18 10:00 06/06/18 09:12 Lopressor - PO 50 mg BID [facility] Administration Potassium Chloride 20 meq 06/03/18 10:00 06/06/18 09:10 Potassium Chloride Oral Liquid PO 20 meq DAILY [facility] Administration Ranitidine HCl 150 mg 06/03/18 10:00 06/06/18 09:12 Zantac - PO 150 mg BID [facility] Administration Senna 2 tab 06/03/18 22:00 06/05/18 21:59 Senna - PO 2 tab HS [facility] Administration Laboratory Results - last 24 hr 06/05/18 06/05/18 06/06/18 16:13 22:01 06:00 WBC 9.1 RBC 3.64 L Hgb 11.6 L Hct 33.4 L MCV 91.7 MCH 31.9 MCHC 34.8 RDW 15.2 Plt Count 251 MPV 9.6 Absolute Neuts (auto) 4.2 Neutrophils % 45.9 Lymphocytes % 40.7 H Monocytes % 9.3 Eosinophils % 3.5 D Basophils % 0.6 Nucleated RBC % 0 Sodium Potassium Chloride Carbon Dioxide Anion Gap BUN Creatinine Creat Clearance w eGFR POC Glucometer 268 162 Random Glucose Calcium Total Bilirubin AST ALT Alkaline Phosphatase Total Protein Albumin 06/06/18 06/06/18 06/06/18 06:00 06:34 11:54 WBC RBC Hgb Hct MCV MCH MCHC RDW Plt Count MPV Absolute Neuts (auto) Neutrophils % Lymphocytes % Monocytes % Eosinophils % Basophils % Nucleated RBC % Sodium 144 Potassium 3.9 Chloride 108 H Carbon Dioxide 30 Anion Gap 6 L BUN Creatinine 0.7 Creat Clearance w eGFR > 60 POC Glucometer 171 218 Random Glucose 179 H Calcium 8.8 Total Bilirubin 0.4 AST ALT 21 Alkaline Phosphatase 63 Total Protein 7.2 Albumin 2.2 L Microbiology 06/02/18 15:45 Blood Culture - Preliminary Blood - Peripheral Venous NO GROWTH OBTAINED AFTER 72 HOURS, INCUBATION TO CONTINUE FOR 2 DAYS. 06/02/18 15:20 Blood Culture - Preliminary Blood - Peripheral Venous NO GROWTH OBTAINED AFTER 72 HOURS, INCUBATION TO CONTINUE FOR 2 DAYS. Lungs decreased breath sounds Abd- soft, NT, colostomy+ No edema PLAN Sepsis,pneumonia -- cultures negative -- CT abd, CT chest done-- results noted -- on IV antibiotics -- pt had chronic cholecystitis - had a calin drain placed last admission , was removed -- ID eval noted --chest pt --nebs elevated troponins -- decreased trend -- on NTG patch -- Cardiology eval noted -- on Eliquis Afib - rate is controlled -- on Eliquis Diabetes -- sugars are high -- will increase insulin DVT prophylaxis - on eliquis Problem List - Problems (1) NSTEMI (non-ST elevated myocardial infarction) Code(s): I21.4 - NON-ST ELEVATION (NSTEMI) MYOCARDIAL INFARCTION (2) Sepsis Code(s): A41.9 - SEPSIS, UNSPECIFIED ORGANISM Qualifiers: Sepsis type: sepsis due to unspecified organism Qualified Code(s): A41.9 - Sepsis, unspecified organism (3) COPD (chronic obstructive pulmonary disease) Code(s): J44.9 - CHRONIC OBSTRUCTIVE PULMONARY DISEASE, UNSPECIFIED Qualifiers: Emphysema type: unspecified (4) Diabetes Code(s): E11.9 - TYPE 2 DIABETES MELLITUS WITHOUT COMPLICATIONS Qualifiers: Diabetes mellitus type: type 2 (5) Elevated troponin Code(s): R74.8 - ABNORMAL LEVELS OF OTHER SERUM ENZYMES
--- NOTE | 2018-06-06 12:20 | PN ---
Progress Note, Physician Chief Complaint: Events noted Not in distress History of Present Illness: Patient was seen and examined. Arousable. Chart was reviewed - Current Medication List Current Medications: Active Medications Acetaminophen (Tylenol -) 650 mg PO Q6H PRN PRN Reason: PAIN Last Admin: 06/05/18 06:24 Dose: 650 mg Albuterol/Ipratropium (Duoneb -) 1 amp NEB Q4H PRN PRN Reason: SHORTNESS OF BREATH Last Admin: 06/05/18 07:17 Dose: 1 amp Albuterol/Ipratropium (Duoneb -) 1 amp NEB RQID [facility] Last Admin: 06/06/18 11:06 Dose: 1 amp Apixaban (Eliquis -) 5 mg PO BID [facility] Last Admin: 06/06/18 09:12 Dose: 5 mg Ascorbic Acid (Vitamin C -) 500 mg PO DAILY [facility] Last Admin: 06/06/18 09:12 Dose: 500 mg Atorvastatin Calcium (Lipitor -) 40 mg PO HS [facility] Last Admin: 06/05/18 22:00 Dose: 40 mg Clonazepam (Klonopin -) 0.5 mg PO BID [facility] Last Admin: 06/06/18 09:11 Dose: 0.5 mg Furosemide (Lasix -) 20 mg PO DAILY [facility] Last Admin: 06/06/18 09:12 Dose: 20 mg Piperacillin Sod/Tazobactam (Sod 3.375 gm/ Dextrose) 50 mls @ 100 mls/hr IVPB Q8H-IV [facility]; Protocol Last Admin: 06/06/18 09:09 Dose: 100 mls/hr Insulin Aspart (Novolog Vial Sliding Scale -) 1 vial SQ ACHS [facility]; Protocol Last Admin: 06/06/18 11:59 Dose: 4 units Insulin Detemir (Levemir Vial) 30 units SQ HS [facility] Lisinopril (Prinivil) 40 mg PO DAILY [facility] Last Admin: 06/06/18 09:12 Dose: 40 mg Metoprolol Tartrate (Lopressor -) 50 mg PO BID [facility] Last Admin: 06/06/18 09:12 Dose: 50 mg Potassium Chloride (Potassium Chloride Oral Liquid) 20 meq PO DAILY [facility] Last Admin: 06/06/18 09:10 Dose: 20 meq Ranitidine HCl (Zantac -) 150 mg PO BID [facility] Last Admin: 06/06/18 09:12 Dose: 150 mg Senna (Senna -) 2 tab PO HS [facility] Last Admin: 06/05/18 21:59 Dose: 2 tab - Objective Vital Signs: Vital Signs Temperature 97.5 F L 06/06/18 06:00 Pulse Rate 78 06/06/18 06:00 Respiratory Rate 20 06/06/18 06:00 Blood Pressure 151/77 06/06/18 06:00 O2 Sat by Pulse Oximetry (%) 97 06/05/18 21:00 HENT: Yes: Atraumatic Neck: Yes: Supple Cardiovascular: Yes: Regular Rate and Rhythm, S1, S2 Respiratory: Yes: Diminished Gastrointestinal: Yes: Normal Bowel Sounds, Soft. No: Tenderness Edema: No Labs: CBC, BMP 06/06/18 06:00 06/06/18 06:00 Problem List - Problems (1) Paroxysmal atrial fibrillation Code(s): I48.0 - PAROXYSMAL ATRIAL FIBRILLATION (2) Pneumonia Code(s): J18.9 - PNEUMONIA, UNSPECIFIED ORGANISM Qualifiers: Pneumonia type: due to unspecified organism Laterality: right Lung location: unspecified part of lung Qualified Code(s): J18.9 - Pneumonia, unspecified organism (3) Sepsis Code(s): A41.9 - SEPSIS, UNSPECIFIED ORGANISM Qualifiers: Sepsis type: sepsis due to unspecified organism Qualified Code(s): A41.9 - Sepsis, unspecified organism (4) COPD (chronic obstructive pulmonary disease) Code(s): J44.9 - CHRONIC OBSTRUCTIVE PULMONARY DISEASE, UNSPECIFIED Qualifiers: Emphysema type: unspecified (5) Demand ischemia Code(s): I24.8 - OTHER FORMS OF ACUTE ISCHEMIC HEART DISEASE (6) Diabetes Code(s): E11.9 - TYPE 2 DIABETES MELLITUS WITHOUT COMPLICATIONS Qualifiers: Diabetes mellitus type: type 2 (7) Diastolic dysfunction Code(s): I51.9 - HEART DISEASE, UNSPECIFIED (8) H/O: CVA (cerebrovascular accident) Code(s): Z86.73 - PRSNL HX OF TIA (TIA), AND CEREB INFRC W/O RESID DEFICITS (9) Hyperlipidemia Code(s): E78.5 - HYPERLIPIDEMIA, UNSPECIFIED Qualifiers: Hyperlipidemia type: pure hypercholesterolemia Qualified Code(s): E78.00 - Pure hypercholesterolemia, unspecified; E78.0 - Pure hypercholesterolemia (10) Hypertension Code(s): I10 - ESSENTIAL (PRIMARY) HYPERTENSION Qualifiers: Hypertension type: essential hypertension Qualified Code(s): I10 - Essential (primary) hypertension (11) Toxic metabolic encephalopathy Code(s): G92 - TOXIC ENCEPHALOPATHY (12) Volvulus of sigmoid colon Code(s): K56.2 - VOLVULUS Assessment/Plan 1. Respiratory distress, related to recurrent RLL aspiration pneumonia 2. 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 Diastolic LV dysfunction with clinical class 0-I NYHA classification LV failure, clinically compensated/euvolemic 5. Paroxysmal atrial fibrillation [id number] score 7 on DOAC/Eliquis, currently in sinus rhythm 6. History of CVA with residual right-sided weakness 7. HTN 8. Diabetes Mellitus 9. Hypercholesterolemia 10. History of intermittent sigmoid volvulus post rectal tube decompression post sigmoid colectomy, colostomy and umbilical hernia repair PLAN: 1. Continue Lopressor 50 mg BID and Lisinopril 40 mg QD 2. Continue Lipitor 40 mg QHS 3. Continue Eliquis 5 mg BID with caution 4. Continue Lasix 20 mg QD and monitor renal function and electrolytes 5. Empiric antibiotic course per ID 6. Conservative medical management Further plans are to follow Rachid Richards MD
--- NOTE | 2018-06-06 13:36 | PN ---
Progress Note (short form) - Note Progress Note: PULMONARY CONSULTATION DICTATED 06/06/18 IMP RUL,RLL PNEUMONIA HCAP ? ASPIRATION RESPIRATORY DISTRESS SECONDARY TO ABOVE ALTERED MENTAL STATUS TOXIC-METABOLIC ENCEPHALOPATHY DIASTOLIC HF AFIB + TROPONINS H/O CVA HTN GERD COPD H/O SIGMOID VOLVULUS S/P COLECTOMY/COLOSTOMY PLAN IV ABX PER ID O2 INHALED BRONCHODILATORS ASPIRATION PRECAUTIONS TREND TROPONIN F/U CHEST X-RAYS AC DR MIGUEL Problem List - Problems (1) Paroxysmal atrial fibrillation Code(s): I48.0 - PAROXYSMAL ATRIAL FIBRILLATION (2) Bronchitis Code(s): J40 - BRONCHITIS, NOT SPECIFIED ACUTE OR CHRONIC (3) COPD (chronic obstructive pulmonary disease) Code(s): J44.9 - CHRONIC OBSTRUCTIVE PULMONARY DISEASE, UNSPECIFIED Qualifiers: Emphysema type: unspecified (4) COPD exacerbation Code(s): J44.1 - CHRONIC OBSTRUCTIVE PULMONARY DISEASE W (ACUTE) EXACERBATION (5) Chronic anticoagulation Code(s): Z79.01 - [employer] (CURRENT) USE OF ANTICOAGULANTS (6) Demand ischemia Code(s): I24.8 - OTHER FORMS OF ACUTE ISCHEMIC HEART DISEASE (7) Diabetes Code(s): E11.9 - TYPE 2 DIABETES MELLITUS WITHOUT COMPLICATIONS Qualifiers: Diabetes mellitus type: type 2 (8) Diastolic dysfunction Code(s): I51.9 - HEART DISEASE, UNSPECIFIED (9) Elevated troponin Code(s): R74.8 - ABNORMAL LEVELS OF OTHER SERUM ENZYMES (10) H/O: CVA (cerebrovascular accident) Code(s): Z86.73 - PRSNL HX OF TIA (TIA), AND CEREB INFRC W/O RESID DEFICITS (11) History of open sigmoidectomy Code(s): Z98.890 - OTHER SPECIFIED POSTPROCEDURAL STATES; Z90.49 - ACQUIRED ABSENCE OF OTHER SPECIFIED PARTS OF DIGESTIVE TRACT (12) Pneumonia Code(s): J18.9 - PNEUMONIA, UNSPECIFIED ORGANISM Qualifiers: Pneumonia type: due to unspecified organism Laterality: right Lung location: lower lobe of lung Qualified Code(s): J18.1 - Lobar pneumonia, unspecified organism (13) Toxic metabolic encephalopathy Code(s): G92 - TOXIC ENCEPHALOPATHY (14) Afib Code(s): I48.91 - UNSPECIFIED ATRIAL FIBRILLATION
--- NOTE | 2018-06-06 13:42 | PN ---
Progress Note, Physician History of Present Illness: LETHARGIC, NOT VERBALLY RESPONSIVE NO RECURRENT TEMP SPIKES WBC IMPROVED C/S NO GROWTH - Current Medication List Current Medications: Active Medications Acetaminophen (Tylenol -) 650 mg PO Q6H PRN PRN Reason: PAIN Last Admin: 06/05/18 06:24 Dose: 650 mg Albuterol/Ipratropium (Duoneb -) 1 amp NEB Q4H PRN PRN Reason: SHORTNESS OF BREATH Last Admin: 06/05/18 07:17 Dose: 1 amp Albuterol/Ipratropium (Duoneb -) 1 amp NEB RQID [facility] Last Admin: 06/06/18 11:06 Dose: 1 amp Apixaban (Eliquis -) 5 mg PO BID [facility] Last Admin: 06/06/18 09:12 Dose: 5 mg Ascorbic Acid (Vitamin C -) 500 mg PO DAILY [facility] Last Admin: 06/06/18 09:12 Dose: 500 mg Atorvastatin Calcium (Lipitor -) 40 mg PO HS [facility] Last Admin: 06/05/18 22:00 Dose: 40 mg Clonazepam (Klonopin -) 0.5 mg PO BID [facility] Last Admin: 06/06/18 09:11 Dose: 0.5 mg Furosemide (Lasix -) 20 mg PO DAILY [facility] Last Admin: 06/06/18 09:12 Dose: 20 mg Piperacillin Sod/Tazobactam (Sod 3.375 gm/ Dextrose) 50 mls @ 100 mls/hr IVPB Q8H-IV [facility]; Protocol Last Admin: 06/06/18 09:09 Dose: 100 mls/hr Insulin Aspart (Novolog Vial Sliding Scale -) 1 vial SQ ACHS [facility]; Protocol Last Admin: 06/06/18 11:59 Dose: 4 units Insulin Detemir (Levemir Vial) 30 units SQ [facility] Lisinopril (Prinivil) 40 mg PO DAILY [facility] Last Admin: 06/06/18 09:12 Dose: 40 mg Metoprolol Tartrate (Lopressor -) 50 mg PO BID [facility] Last Admin: 06/06/18 09:12 Dose: 50 mg Potassium Chloride (Potassium Chloride Oral Liquid) 20 meq PO DAILY [facility] Last Admin: 06/06/18 09:10 Dose: 20 meq Ranitidine HCl (Zantac -) 150 mg PO BID [facility] Last Admin: 06/06/18 09:12 Dose: 150 mg Senna (Senna -) 2 tab PO HS [facility] Last Admin: 06/05/18 21:59 Dose: 2 tab - Objective Vital Signs: Vital Signs Temperature 98.9 F 06/06/18 10:00 Pulse Rate 73 06/06/18 10:00 Respiratory Rate 20 06/06/18 10:00 Blood Pressure 158/85 06/06/18 10:00 O2 Sat by Pulse Oximetry (%) 98 06/06/18 09:00 Constitutional: Yes: No Distress Cardiovascular: Yes: Regular Rate and Rhythm, S1, S2 Respiratory: Yes: Diminished Gastrointestinal: Yes: Normal Bowel Sounds, Soft. No: Tenderness Labs: CBC, BMP 06/06/18 06:00 06/06/18 06:00 INR, PTT INR 1.52 (0.83-1.09) H 06/02/18 15:20 Assessment/Plan R HCAP LEUKOCYTOSIS- RESOLVED TOXIC METABOLIC ENCEPHALOPATHY DM CONTINUE ZOSYN RECULTURE FOR RECURRENT TEMP
--- NOTE | 2018-06-06 15:26 | CONS ---
DATE OF CONSULTATION: 06/06/2018 REFERRING PHYSICIAN: Andrea Gunderson MD HISTORY: The history is obtained from the chart. The patient is a 78-year-old black male custodial resident with extensive past medical history, which includes permanent atrial fibrillation, hypertension, diabetes, hyperlipidemia, history of CVA, gastroesophageal reflux disease, diastolic heart failure, COPD, history of cholecystitis status post percutaneous cholecystostomy tube subsequently removed, history of volvulus status post colectomy and colostomy transferred to [facility] secondary to complaining of chest pain, increasing lethargy, and fever. The patient apparently is responsive and nonverbal at baseline. Apparently at the custodial he became progressively more lethargic. He was also pointing to his chest. He was noted in the emergency room to have a fever of 101.8 and WBC of 13.9. A chest x-ray revealed poor inspiratory effort and elevated right hemidiaphragm. He underwent a CAT scan of the chest, which revealed right lower lobe consolidation and right upper lobe infiltrate with some mucus plugging in the right upper lobe segments. He was started on broad-spectrum antibiotics and supplemental inhaled bronchodilators. Of note, he was also found to have elevated troponins, which was felt to be due to demand ischemia. PAST MEDICAL HISTORY: Again includes atrial fibrillation, hypertension, diabetes, COPD, history of sigmoid volvulus, status post colectomy, colostomy, history of cholecystitis status post cholecystostomy tube, status post removal, gastroesophageal reflux, diastolic heart failure, COPD, CVA, hyperlipidemia, diabetes, and hypertension. REVIEW OF SYSTEMS: Unable to obtain at this time. The patient is lethargic. MEDICATIONS: Include Tylenol, Prinivil, piperacillin, Eliquis, Klonopin, DuoNeb, Lopressor, Senna, Zantac, Lipitor, Norvasc, Levemir, Lasix, vitamin C. PHYSICAL EXAMINATION: General: The patient is a well-developed, well-nourished black male lethargic in no acute respiratory distress. Vital Signs: He is currently afebrile. Blood pressure is 158/85, respiratory rate is 20, O2 saturation is 98% on 2 L. HEENT: Normocephalic and atraumatic. Neck: Supple. Heart: Irregularly irregular S1, S2. Chest: Scattered bilateral rhonchi with poor inspiratory effort. Abdomen: Soft. Bowel sounds are present. Positive colostomy. Extremities: No cyanosis or edema. LABORATORIES: BUN 9, creatinine 0.7. WBCs 9.1, hemoglobin 11.6, hematocrit 33.4 with a platelet count of 251,000. Chest CT reveals increasing right basilar consolidation, right upper lobe infiltrates, and mucus plugging, and right upper lobe rhonchus. IMPRESSION: 1. Right upper lobe, right lower lobe pneumonia healthcare acquired likely aspiration. 2. Shortness of breath, respiratory distress secondary to above. 3. Altered mental status likely toxic metabolic encephalopathy due to underlying pneumonia. 4. Diastolic heart failure. 5. Atrial fibrillation. 6. Positive troponins likely demand ischemia. 7. History of cerebrovascular accident. 8. Hypertension. 9. Gastroesophageal reflux disease. 10. Chronic obstructive pulmonary disease. 11. History of sigmoid volvulus status post colectomy, colostomy. PLAN: IV antibiotics as per Infectious Disease. Supplemental O2. Inhaled bronchodilators. Aspiration precautions. Trend troponins. Follow up chest x-rays . Continue Sameer. BLAIR MIGUEL M.D. [id number]
[2018-06-06] MEDS ORDERED: METOPROLOL TARTRATE 25 MG TABLET (FP) PO ONE (17:45)
[2018-06-06] MEDS: ACETAMINOPHEN 325 MG TABLET (FP) PO PRN (18:54)
[2018-06-06] MEDS: SENNOSIDES 8.6MG TABLET (FP) PO SCH (22:33)
[2018-06-06] MEDS: ATORVASTATIN CA 40 MG TABLET (FP) PO SCH (22:33)
[2018-06-06] MEDS: INSULIN (LEVEMIR) 100 UNITS/ML UNITS SQ SCH (22:34)
[2018-06-07] MEDS ORDERED: PIPERACILLIN/TAZOBACTAM 3.375 GM VIAL IVPB ONE ×3 (01:05→17:12)
[2018-06-07] MEDS ORDERED: DEXTROSE 5%-WATER - 50 ML IVPB ONE ×3 (01:06→17:12)
[2018-06-07] MEDS: PIPERACILLIN/TAZOB 3.375 GM 3.375 GM in DEXTROSE 5%-WATER - 50 ML IVPB SCH ×3 (01:20→17:38)
[2018-06-07] MEDS: INSULIN SLIDING SCALE (NOVOLOG) 1 VIAL SQ SCH ×4 (06:28→22:13)
[2018-06-07] MEDS: ALBUTEROL SO4 2.5/IPRATROPIUM 0.5 INH SOL 3 ML VIAL.NEB. NEB SCH ×4 (08:19→21:15)
--- NOTE | 2018-06-07 10:40 | PN ---
Progress Note (short form) - Note Progress Note: awakens when called , no distress, low grade fever , ate without difficulty Vital Signs - 24 hr 06/06/18 06/06/18 06/06/18 18:00 21:00 22:00 Temperature 99 F 99.4 F Pulse Rate 58 L 84 Respiratory 20 18 Rate Blood Pressure 149/101 H 150/93 O2 Sat by Pulse 96 Oximetry (%) 06/07/18 06/07/18 02:00 15:32 Temperature 98.5 F 98.3 F Pulse Rate 78 83 Respiratory 18 18 Rate Blood Pressure 156/76 136/86 O2 Sat by Pulse Oximetry (%) Current Medications Generic Name Dose Route Start Last Admin Trade Name Freq PRN Reason Stop Dose Admin Acetaminophen 650 mg 06/02/18 22:21 06/06/18 18:54 Tylenol - PO 650 mg Q6H PRN Administration PAIN Albuterol/Ipratropium 1 amp 06/03/18 12:15 06/05/18 07:17 Duoneb - NEB 1 amp Q4H PRN Administration SHORTNESS OF BREATH Albuterol/Ipratropium 1 amp 06/05/18 13:15 06/07/18 11:10 Duoneb - NEB Not Given RQID FLOR[facility] Apixaban 5 mg 06/03/18 10:00 06/07/18 11:12 Eliquis - PO 5 mg BID [facility] Administration Ascorbic Acid 500 mg 06/03/18 10:00 06/07/18 11:12 Vitamin C - PO 500 mg DAILY FL[facility] Administration Atorvastatin Calcium 40 mg 06/03/18 22:00 06/06/18 22:33 Lipitor - PO 40 mg HS [facility] Administration Clonazepam 0.5 mg 06/03/18 10:00 06/07/18 11:11 Klonopin - PO 0.5 mg BID [facility] Administration Furosemide 20 mg 06/03/18 10:00 06/07/18 11:11 Lasix - PO 20 mg DAILY [facility] Administration Piperacillin Sod/Tazobactam 50 mls @ 100 mls/hr 06/03/18 18:00 06/07/18 11:12 Sod 3.375 gm/ Dextrose IVPB 100 mls/hr Q8H-IV [facility] Administration Protocol Insulin Aspart 1 vial 06/03/18 07:00 06/07/18 11:59 Novolog Vial Sliding Scale - SQ 4 units ACHS [facility] Administration Protocol Insulin Detemir 30 units 06/06/18 22:00 06/06/18 22:34 Levemir Vial SQ 30 units HS [facility] Administration Lisinopril 40 mg 06/03/18 10:00 06/07/18 11:11 Prinivil PO 40 mg DAILY [facility] Administration Metoprolol Tartrate 50 mg 06/03/18 10:00 06/07/18 11:12 Lopressor - PO 50 mg BID [facility] Administration Potassium Chloride 20 meq 06/03/18 10:00 06/07/18 11:12 Potassium Chloride Oral Liquid PO 20 meq DAILY [facility] Administration Ranitidine HCl 150 mg 06/03/18 10:00 06/07/18 11:12 Zantac - PO 150 mg BID [facility] Administration Senna 2 tab 06/03/18 22:00 06/06/18 22:33 Senna - PO 2 tab HS [facility] Administration Laboratory Results - last 24 hr 06/06/18 06/06/18 06/07/18 17:08 22:31 05:54 POC Glucometer 241 317 208 06/07/18 11:19 POC Glucometer 206 Lungs decreased breath sounds Abd- soft, NT, colostomy+ No edema PLAN Sepsis,pneumonia -- cultures negative -- CT abd, CT chest done-- results noted -- on IV antibiotics -- pt had chronic cholecystitis - had a calin drain placed last admission , was removed -- ID eval noted --chest pt --nebs elevated troponins -- decreased trend -- on NTG patch -- Cardiology eval noted -- on Eliquis Afib - rate is controlled -- on Eliquis Diabetes -- sugars are high -- will increase insulin DVT prophylaxis - on eliquis Problem List - Problems (1) NSTEMI (non-ST elevated myocardial infarction) Code(s): I21.4 - NON-ST ELEVATION (NSTEMI) MYOCARDIAL INFARCTION (2) Sepsis Code(s): A41.9 - SEPSIS, UNSPECIFIED ORGANISM Qualifiers: Sepsis type: sepsis due to unspecified organism Qualified Code(s): A41.9 - Sepsis, unspecified organism (3) COPD (chronic obstructive pulmonary disease) Code(s): J44.9 - CHRONIC OBSTRUCTIVE PULMONARY DISEASE, UNSPECIFIED Qualifiers: Emphysema type: unspecified (4) Diabetes Code(s): E11.9 - TYPE 2 DIABETES MELLITUS WITHOUT COMPLICATIONS Qualifiers: Diabetes mellitus type: type 2 (5) Elevated troponin Code(s): R74.8 - ABNORMAL LEVELS OF OTHER SERUM ENZYMES
[2018-06-07] MEDS: clonazePAM 0.5 MG TABLET PO SCH ×2 (11:11→22:14)
[2018-06-07] MEDS: FUROSEMIDE 20 MG TABLET (FP) PO SCH (11:11)
[2018-06-07] MEDS: LISINOPRIL 20 MG TABLET (FP) PO SCH (11:11)
[2018-06-07] MEDS: RANITIDINE HCL 150 MG TABLET (FP) PO SCH ×2 (11:12→22:13)
[2018-06-07] MEDS: ASCORBIC ACID 500 MG TABLET (FP) PO SCH (11:12)
[2018-06-07] MEDS: POTASSIUM CHLORIDE ORAL LIQUID 20 MEQ/15 ML PO SCH (11:12)
[2018-06-07] MEDS: APIXABAN 5 MG TABLET PO SCH ×2 (11:12→22:14)
[2018-06-07] MEDS: METOPROLOL TARTRATE 50 MG TABLET (FP) PO SCH ×2 (11:12→22:14)
--- NOTE | 2018-06-07 12:26 | PN ---
Progress Note, Physician History of Present Illness: PULMONARY NO DISTRESS,LETHARGIC,-TACHYPNEA - Current Medication List Current Medications: Active Medications Acetaminophen (Tylenol -) 650 mg PO Q6H PRN PRN Reason: PAIN Last Admin: 06/06/18 18:54 Dose: 650 mg Albuterol/Ipratropium (Duoneb -) 1 amp NEB Q4H PRN PRN Reason: SHORTNESS OF BREATH Last Admin: 06/05/18 07:17 Dose: 1 amp Albuterol/Ipratropium (Duoneb -) 1 amp NEB RQID [facility] Last Admin: 06/07/18 11:10 Dose: Not Given Apixaban (Eliquis -) 5 mg PO BID [facility] Last Admin: 06/07/18 11:12 Dose: 5 mg Ascorbic Acid (Vitamin C -) 500 mg PO DAILY [facility] Last Admin: 06/07/18 11:12 Dose: 500 mg Atorvastatin Calcium (Lipitor -) 40 mg PO HS [facility] Last Admin: 06/06/18 22:33 Dose: 40 mg Clonazepam (Klonopin -) 0.5 mg PO BID [facility] Last Admin: 06/07/18 11:11 Dose: 0.5 mg Furosemide (Lasix -) 20 mg PO DAILY [facility] Last Admin: 06/07/18 11:11 Dose: 20 mg Piperacillin Sod/Tazobactam (Sod 3.375 gm/ Dextrose) 50 mls @ 100 mls/hr IVPB Q8H-IV [facility]; Protocol Last Admin: 06/07/18 11:12 Dose: 100 mls/hr Insulin Aspart (Novolog Vial Sliding Scale -) 1 vial SQ [facility]; Protocol Last Admin: 06/07/18 11:59 Dose: 4 units Insulin Detemir (Levemir Vial) 30 units SQ HS [facility] Last Admin: 06/06/18 22:34 Dose: 30 units Lisinopril (Prinivil) 40 mg PO DAILY [facility] Last Admin: 06/07/18 11:11 Dose: 40 mg Metoprolol Tartrate (Lopressor -) 50 mg PO BID [facility] Last Admin: 06/07/18 11:12 Dose: 50 mg Potassium Chloride (Potassium Chloride Oral Liquid) 20 meq PO DAILY [facility] Last Admin: 06/07/18 11:12 Dose: 20 meq Ranitidine HCl (Zantac -) 150 mg PO BID [facility] Last Admin: 06/07/18 11:12 Dose: 150 mg Senna (Senna -) 2 tab PO HS [facility] Last Admin: 06/06/18 22:33 Dose: 2 tab - Objective Vital Signs: Vital Signs Temperature 98.5 F 06/07/18 02:00 Pulse Rate 78 06/07/18 02:00 Respiratory Rate 18 06/07/18 02:00 Blood Pressure 156/76 06/07/18 02:00 O2 Sat by Pulse Oximetry (%) 96 06/06/18 21:00 Constitutional: Yes: Well Nourished, Other (LETHARGIC) Eyes: Yes: WNL HENT: Yes: WNL Neck: Yes: WNL Cardiovascular: Yes: Pulse Irregular, S1, S2 Respiratory: Yes: Diminished Gastrointestinal: Yes: Normal Bowel Sounds, Soft Extremities: Yes: WNL Edema: No Labs: CBC, BMP Problem List - Problems (1) Paroxysmal atrial fibrillation Code(s): I48.0 - PAROXYSMAL ATRIAL FIBRILLATION (2) Bronchitis Code(s): J40 - BRONCHITIS, NOT SPECIFIED ACUTE OR CHRONIC (3) COPD (chronic obstructive pulmonary disease) Code(s): J44.9 - CHRONIC OBSTRUCTIVE PULMONARY DISEASE, UNSPECIFIED Qualifiers: Emphysema type: unspecified (4) COPD exacerbation Code(s): J44.1 - CHRONIC OBSTRUCTIVE PULMONARY DISEASE W (ACUTE) EXACERBATION (5) Chronic anticoagulation Code(s): Z79.01 - [facility] (CURRENT) USE OF ANTICOAGULANTS (6) Demand ischemia Code(s): I24.8 - OTHER FORMS OF ACUTE ISCHEMIC HEART DISEASE (7) Diabetes Code(s): E11.9 - TYPE 2 DIABETES MELLITUS WITHOUT COMPLICATIONS Qualifiers: Diabetes mellitus type: type 2 (8) Diastolic dysfunction Code(s): I51.9 - HEART DISEASE, UNSPECIFIED (9) Elevated troponin Code(s): R74.8 - ABNORMAL LEVELS OF OTHER SERUM ENZYMES (10) H/O: CVA (cerebrovascular accident) Code(s): Z86.73 - PRSNL HX OF TIA (TIA), AND CEREB INFRC W/O RESID DEFICITS (11) History of open sigmoidectomy Code(s): Z98.890 - OTHER SPECIFIED POSTPROCEDURAL STATES; Z90.49 - ACQUIRED ABSENCE OF OTHER SPECIFIED PARTS OF DIGESTIVE TRACT (12) Pneumonia Code(s): J18.9 - PNEUMONIA, UNSPECIFIED ORGANISM Qualifiers: Pneumonia type: due to unspecified organism Laterality: right Lung location: lower lobe of lung Qualified Code(s): J18.1 - Lobar pneumonia, unspecified organism (13) Toxic metabolic encephalopathy Code(s): G92 - TOXIC ENCEPHALOPATHY (14) Afib Code(s): I48.91 - UNSPECIFIED ATRIAL FIBRILLATION Assessment/Plan IMP RUL,RLL PNEUMONIA HCAP ? ASPIRATION RESPIRATORY DISTRESS SECONDARY TO ABOVE ALTERED MENTAL STATUS TOXIC-METABOLIC ENCEPHALOPATHY DIASTOLIC HF AFIB + TROPONINS H/O CVA HTN GERD COPD H/O SIGMOID VOLVULUS S/P COLECTOMY/COLOSTOMY PLAN IV ABX PER ID O2 INHALED BRONCHODILATORS ASPIRATION PRECAUTIONS F/U CHEST X-RAYS AC DR MIGUEL Problem List - Problems (1) Paroxysmal atrial fibrillation Code(s): I48.0 - PAROXYSMAL ATRIAL FIBRILLATION (2) Bronchitis Code(s): J40 - BRONCHITIS, NOT SPECIFIED ACUTE OR CHRONIC (3) COPD (chronic obstructive pulmonary disease) Code(s): J44.9 - CHRONIC OBSTRUCTIVE PULMONARY DISEASE, UNSPECIFIED Qualifiers: Emphysema type: unspecified (4) COPD exacerbation Code(s): J44.1 - CHRONIC OBSTRUCTIVE PULMONARY DISEASE W (ACUTE) EXACERBATION (5) Chronic anticoagulation Code(s): Z79.01 - [facility] (CURRENT) USE OF ANTICOAGULANTS (6) Demand ischemia Code(s): I24.8 - OTHER FORMS OF ACUTE ISCHEMIC HEART DISEASE (7) Diabetes Code(s): E11.9 - TYPE 2 DIABETES MELLITUS WITHOUT COMPLICATIONS Qualifiers: Diabetes mellitus type: type 2 (8) Diastolic dysfunction Code(s): I51.9 - HEART DISEASE, UNSPECIFIED (9) Elevated troponin Code(s): R74.8 - ABNORMAL LEVELS OF OTHER SERUM ENZYMES (10) H/O: CVA (cerebrovascular accident) Code(s): Z86.73 - PRSNL HX OF TIA (TIA), AND CEREB INFRC W/O RESID DEFICITS (11) History of open sigmoidectomy Code(s): Z98.890 - OTHER SPECIFIED POSTPROCEDURAL STATES; Z90.49 - ACQUIRED ABSENCE OF OTHER SPECIFIED PARTS OF DIGESTIVE TRACT (12) Pneumonia Code(s): J18.9 - PNEUMONIA, UNSPECIFIED ORGANISM Qualifiers: Pneumonia type: due to unspecified organism Laterality: right Lung location: lower lobe of lung Qualified Code(s): J18.1 - Lobar pneumonia, unspecified organism (13) Toxic metabolic encephalopathy Code(s): G92 - TOXIC ENCEPHALOPATHY (14) Afib Code(s): I48.91 - UNSPECIFIED ATRIAL FIBRILLATION
--- NOTE | 2018-06-07 15:32 | PN ---
Progress Note, Physician History of Present Illness: Lethargic. - Current Medication List Current Medications: Active Medications Acetaminophen (Tylenol -) 650 mg PO Q6H PRN PRN Reason: PAIN Last Admin: 06/06/18 18:54 Dose: 650 mg Albuterol/Ipratropium (Duoneb -) 1 amp NEB Q4H PRN PRN Reason: SHORTNESS OF BREATH Last Admin: 06/05/18 07:17 Dose: 1 amp Albuterol/Ipratropium (Duoneb -) 1 amp NEB RQID [facility] Last Admin: 06/07/18 11:10 Dose: Not Given Apixaban (Eliquis -) 5 mg PO BID [facility] Last Admin: 06/07/18 11:12 Dose: 5 mg Ascorbic Acid (Vitamin C -) 500 mg PO DAILY [facility] Last Admin: 06/07/18 11:12 Dose: 500 mg Atorvastatin Calcium (Lipitor -) 40 mg PO HS [facility] Last Admin: 06/06/18 22:33 Dose: 40 mg Clonazepam (Klonopin -) 0.5 mg PO BID [facility] Last Admin: 06/07/18 11:11 Dose: 0.5 mg Furosemide (Lasix -) 20 mg PO DAILY [facility] Last Admin: 06/07/18 11:11 Dose: 20 mg Piperacillin Sod/Tazobactam (Sod 3.375 gm/ Dextrose) 50 mls @ 100 mls/hr IVPB Q8H-IV [facility]; Protocol Last Admin: 06/07/18 11:12 Dose: 100 mls/hr Insulin Aspart (Novolog Vial Sliding Scale -) 1 vial SQ ACHS [facility]; Protocol Last Admin: 06/07/18 11:59 Dose: 4 units Insulin Detemir (Levemir Vial) 30 units SQ HS [facility] Last Admin: 06/06/18 22:34 Dose: 30 units Lisinopril (Prinivil) 40 mg PO DAILY [facility] Last Admin: 06/07/18 11:11 Dose: 40 mg Metoprolol Tartrate (Lopressor -) 50 mg PO BID [facility] Last Admin: 06/07/18 11:12 Dose: 50 mg Potassium Chloride (Potassium Chloride Oral Liquid) 20 meq PO DAILY [facility] Last Admin: 06/07/18 11:12 Dose: 20 meq Ranitidine HCl (Zantac -) 150 mg PO BID [facility] Last Admin: 06/07/18 11:12 Dose: 150 mg Senna (Senna -) 2 tab PO HS [facility] Last Admin: 06/06/18 22:33 Dose: 2 tab - Objective Vital Signs: Vital Signs Temperature 98.5 F 06/07/18 02:00 Pulse Rate 78 06/07/18 02:00 Respiratory Rate 18 06/07/18 02:00 Blood Pressure 156/76 06/07/18 02:00 O2 Sat by Pulse Oximetry (%) 96 06/06/18 21:00 Constitutional: Yes: No Distress, Calm Neck: Yes: Supple Cardiovascular: Yes: Regular Rate and Rhythm Respiratory: Yes: Regular, Diminished, On Nasal O2 Gastrointestinal: Yes: Normal Bowel Sounds, Soft Edema: No Labs: CBC, BMP 06/06/18 06:00 06/06/18 06:00 INR, PTT INR 1.52 (0.83-1.09) H 06/02/18 15:20 - ....Imaging EKG: Report Reviewed (Tele: NSR) Problem List - Problems (1) Paroxysmal atrial fibrillation Code(s): I48.0 - PAROXYSMAL ATRIAL FIBRILLATION (2) Pneumonia Code(s): J18.9 - PNEUMONIA, UNSPECIFIED ORGANISM Qualifiers: Pneumonia type: due to unspecified organism Laterality: right Lung location: unspecified part of lung Qualified Code(s): J18.9 - Pneumonia, unspecified organism (3) Sepsis Code(s): A41.9 - SEPSIS, UNSPECIFIED ORGANISM Qualifiers: Sepsis type: sepsis due to unspecified organism Qualified Code(s): A41.9 - Sepsis, unspecified organism (4) Chronic anticoagulation Code(s): Z79.01 - [employer] (CURRENT) USE OF ANTICOAGULANTS (5) Demand ischemia Code(s): I24.8 - OTHER FORMS OF ACUTE ISCHEMIC HEART DISEASE (6) Diabetes Code(s): E11.9 - TYPE 2 DIABETES MELLITUS WITHOUT COMPLICATIONS Qualifiers: Diabetes mellitus type: type 2 (7) Diastolic dysfunction Code(s): I51.9 - HEART DISEASE, UNSPECIFIED (8) H/O: CVA (cerebrovascular accident) Code(s): Z86.73 - PRSNL HX OF TIA (TIA), AND CEREB INFRC W/O RESID DEFICITS (9) Hyperlipidemia Code(s): E78.5 - HYPERLIPIDEMIA, UNSPECIFIED Qualifiers: Hyperlipidemia type: pure hypercholesterolemia Qualified Code(s): E78.00 - Pure hypercholesterolemia, unspecified; E78.0 - Pure hypercholesterolemia (10) Leucocytosis Code(s): D72.829 - ELEVATED WHITE BLOOD CELL COUNT, UNSPECIFIED (11) Toxic metabolic encephalopathy Code(s): G92 - TOXIC ENCEPHALOPATHY Assessment/Plan Echocardiography dated 12/20/2017 revealed normal LV size and function, trace MR and TR 1. Respiratory distress, related to recurrent RLL aspiration pneumonia 2. 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 Diastolic LV dysfunction with clinical class 0-I NYHA classification LV failure, clinically compensated/euvolemic 4. Paroxysmal atrial fibrillation [id number] score 7 on DOAC's/Eliquis, currently in sinus rhythm 5. History of CVA with residual right-sided weakness 7. HTN 8. Diabetes Mellitus 9. Hypercholesterolemia 10. History of intermittent sigmoid volvulus post rectal tube decompression post sigmoid colectomy, colostomy and umbilical hernia repair PLAN: 1. Continue Lopressor 50 bid 2. Continue Lisinopril 40 qd 3. Continue Lipitor 40 qhs 4. Continue Eliquis 5 bid with caution and close monitoring of CBC 5. Continue Lasix 20 qd and K repletion 6. Empiric antibiotic course per ID, f/u C&S, BD, O2, aspiration precautions 7. Recommend conservative medical management considering his advanced co- morbidities
[2018-06-07] MEDS: SENNOSIDES 8.6MG TABLET (FP) PO SCH (22:13)
[2018-06-07] MEDS: ATORVASTATIN CA 40 MG TABLET (FP) PO SCH (22:14)
[2018-06-07] MEDS: INSULIN (LEVEMIR) 100 UNITS/ML UNITS SQ SCH (22:14)
[2018-06-08] MEDS ORDERED: PIPERACILLIN/TAZOBACTAM 3.375 GM VIAL IVPB ONE ×2 (01:20→10:39)
[2018-06-08] MEDS ORDERED: DEXTROSE 5%-WATER - 50 ML IVPB ONE ×2 (01:20→10:39)
[2018-06-08] MEDS: PIPERACILLIN/TAZOB 3.375 GM 3.375 GM in DEXTROSE 5%-WATER - 50 ML IVPB SCH ×3 (02:27→18:01)
[2018-06-08] MEDS: INSULIN SLIDING SCALE (NOVOLOG) 1 VIAL SQ SCH ×3 (06:46→17:35)
[2018-06-08 07:46] LABS: BASO % 0.3 % (0-2.0); EOS % 1.9 % (0-4.5); HEMATOCRIT 31.5 % (35.4-49); HEMOGLOBIN 10.9 GM/dL (11.7-16.9); MCH 31.5 pg (25.7-33.7); MCHC 34.5 g/dl (32.0-35.9); MEAN CELL VOLUME 91.3 fl (80-96); MEAN PLT VOLUME 9.6 fl (7.5-11.1); NEUT % 56.8 % (42.8-82.8); PLATELET COUNT 282 K/MM3 (134-434); RBC 3.45 M/mm3 (4.00-5.60); RDW 15.8 % (11.9-15.9); WHITE BLOOD COUNT 9.6 K/mm3 (4.0-10.0)
[2018-06-08 07:59] LABS: ALBUMIN 2.2 g/dl (3.4-5.0); ALK PHOS 60 U/L (45-117); ANION GAP 6 MMOL/L (8-16); BILIRUBIN,TOTAL 0.4 mg/dL (0.2-1); BLOOD UREA NITROGEN 9 mg/dL (7-18); CALCIUM 8.7 mg/dL (8.5-10.1); CHLORIDE 104 mmol/L (98-107); CO2 30 mmol/L (21-32); CREATININE 0.6 mg/dL (0.55-1.3); GLUCOSE,RANDOM 193 mg/dL (74-106); POTASSIUM 3.7 mmol/L (3.5-5.1); SGOT/AST 24 U/L (15-37); SGPT/ALT 20 U/L (13-61); SODIUM 141 mmol/L (136-145); TOT PROT 7.2 g/dl (6.4-8.2)
[2018-06-08] MEDS: ALBUTEROL SO4 2.5/IPRATROPIUM 0.5 INH SOL 3 ML VIAL.NEB. NEB SCH ×3 (08:12→16:04)
[2018-06-08] MEDS: ASCORBIC ACID 500 MG TABLET (FP) PO SCH (10:45)
[2018-06-08] MEDS: RANITIDINE HCL 150 MG TABLET (FP) PO SCH (10:45)
[2018-06-08] MEDS: APIXABAN 5 MG TABLET PO SCH (10:45)
[2018-06-08] MEDS: POTASSIUM CHLORIDE ORAL LIQUID 20 MEQ/15 ML PO SCH (10:45)
[2018-06-08] MEDS: clonazePAM 0.5 MG TABLET PO SCH (10:45)
[2018-06-08] MEDS: LISINOPRIL 20 MG TABLET (FP) PO SCH (10:45)
[2018-06-08] MEDS: FUROSEMIDE 20 MG TABLET (FP) PO SCH (10:45)
[2018-06-08] MEDS: METOPROLOL TARTRATE 50 MG TABLET (FP) PO SCH (10:46)
--- NOTE | 2018-06-08 11:17 | PN ---
Progress Note (short form) - Note Progress Note: awake no distress no SOB occasional cough Vital Signs - 24 hr 06/07/18 06/07/18 06/07/18 15:32 18:00 20:52 Temperature 98.3 F 98.6 F Pulse Rate 83 84 Respiratory 18 18 Rate Blood Pressure 136/86 134/78 O2 Sat by Pulse 98 Oximetry (%) 06/07/18 06/08/18 06/08/18 22:00 02:00 06:33 Temperature 98.5 F 97.5 F L 98.7 F Pulse Rate 89 50 L 100 H Respiratory 18 20 18 Rate Blood Pressure 147/85 140/73 133/79 O2 Sat by Pulse Oximetry (%) Current Medications Generic Name Dose Route Start Last Admin Trade Name Freq PRN Reason Stop Dose Admin Acetaminophen 650 mg 06/02/18 22:21 06/06/18 18:54 Tylenol - PO 650 mg Q6H PRN Administration PAIN Albuterol/Ipratropium 1 amp 06/03/18 12:15 06/05/18 07:17 Duoneb - NEB 1 amp Q4H PRN Administration SHORTNESS OF BREATH Albuterol/Ipratropium 1 amp 06/05/18 13:15 06/08/18 08:12 Duoneb - NEB 1 amp RQID [facility] Administration Apixaban 5 mg 06/03/18 10:00 06/08/18 10:45 Eliquis - PO 5 mg BID [facility] Administration Ascorbic Acid 500 mg 06/03/18 10:00 06/08/18 10:45 Vitamin C - PO 500 mg DAILY [facility] Administration Atorvastatin Calcium 40 mg 06/03/18 22:00 06/07/18 22:14 Lipitor - PO 40 mg HS [facility] Administration Clonazepam 0.5 mg 06/03/18 10:00 06/08/18 10:45 Klonopin - PO 0.5 mg BID [facility] Administration Furosemide 20 mg 06/03/18 10:00 06/08/18 10:45 Lasix - PO 20 mg DAILY [facility] Administration Piperacillin Sod/Tazobactam 50 mls @ 100 mls/hr 06/03/18 18:00 06/08/18 10:46 Sod 3.375 gm/ Dextrose IVPB 100 mls/hr Q8H-IV [facility] Administration Protocol Insulin Aspart 1 vial 06/03/18 07:00 06/08/18 06:46 Novolog Vial Sliding Scale - SQ 2 units ACHS [facility] Administration Protocol Insulin Detemir 30 units 06/06/18 22:00 06/07/18 22:14 Levemir Vial SQ 30 units HS [facility] Administration Lisinopril 40 mg 06/03/18 10:00 06/08/18 10:45 Prinivil PO 40 mg DAILY [facility] Administration Metoprolol Tartrate 50 mg 06/03/18 10:00 06/08/18 10:46 Lopressor - PO 50 mg BID [facility] Administration Potassium Chloride 20 meq 06/03/18 10:00 06/08/18 10:45 Potassium Chloride Oral Liquid PO 20 meq DAILY [facility] Administration Ranitidine HCl 150 mg 06/03/18 10:00 06/08/18 10:45 Zantac - PO 150 mg BID [facility] Administration Senna 2 tab 06/03/18 22:00 06/07/18 22:13 Senna - PO 2 tab HS [facility] Administration Laboratory Results - last 24 hr 06/07/18 06/07/18 06/07/18 11:19 16:49 22:10 WBC RBC Hgb Hct MCV MCH MCHC RDW Plt Count MPV Absolute Neuts (auto) Neutrophils % Lymphocytes % Monocytes % Eosinophils % Basophils % Nucleated RBC % Sodium Potassium Chloride Carbon Dioxide Anion Gap BUN Creatinine Creat Clearance w eGFR POC Glucometer 206 134 271 Random Glucose Calcium Total Bilirubin AST ALT Alkaline Phosphatase Total Protein Albumin 06/08/18 06/08/18 06/08/18 05:56 06:30 06:30 WBC 9.6 RBC 3.45 L Hgb 10.9 L Hct 31.5 L MCV 91.3 MCH 31.5 MCHC 34.5 RDW 15.8 Plt Count 282 MPV 9.6 Absolute Neuts (auto) 5.5 Neutrophils % 56.8 D Lymphocytes % 33.0 Monocytes % 8.0 Eosinophils % 1.9 Basophils % 0.3 Nucleated RBC % 0 Sodium 141 Potassium 3.7 Chloride 104 Carbon Dioxide 30 Anion Gap 6 L BUN 9 Creatinine 0.6 Creat Clearance w eGFR > 60 POC Glucometer 193 Random Glucose 193 H Calcium 8.7 Total Bilirubin 0.4 AST 24 ALT 20 Alkaline Phosphatase 60 Total Protein 7.2 Albumin 2.2 L oral moist S1 S2 RRR Lungs decreased breath sounds Abd- soft, NT, colostomy+ No edema PLAN Sepsis,pneumonia -- cultures negative -- clinically improving -- on IV antibiotics -- pt had chronic cholecystitis - had a calin drain placed last admission , was removed -- ID follow up for duration antibiotics --chest pt --nebs -- dc planning elevated troponins -- decreased trend -- on NTG patch -- denies chest pain -- on Eliquis Afib - rate is controlled -- on Eliquis Diabetes -- sugars are high -- will increase insulin DVT prophylaxis - on eliquis Problem List - Problems (1) NSTEMI (non-ST elevated myocardial infarction) Code(s): I21.4 - NON-ST ELEVATION (NSTEMI) MYOCARDIAL INFARCTION (2) Sepsis Code(s): A41.9 - SEPSIS, UNSPECIFIED ORGANISM Qualifiers: Sepsis type: sepsis due to unspecified organism Qualified Code(s): A41.9 - Sepsis, unspecified organism (3) COPD (chronic obstructive pulmonary disease) Code(s): J44.9 - CHRONIC OBSTRUCTIVE PULMONARY DISEASE, UNSPECIFIED Qualifiers: Emphysema type: unspecified (4) Diabetes Code(s): E11.9 - TYPE 2 DIABETES MELLITUS WITHOUT COMPLICATIONS Qualifiers: Diabetes mellitus type: type 2 (5) Elevated troponin Code(s): R74.8 - ABNORMAL LEVELS OF OTHER SERUM ENZYMES
--- NOTE | 2018-06-08 12:08 | PN ---
Progress Note, Physician History of Present Illness: Sensorium improved, more interactive. - Current Medication List Current Medications: Active Medications Acetaminophen (Tylenol -) 650 mg PO Q6H PRN PRN Reason: PAIN Last Admin: 06/06/18 18:54 Dose: 650 mg Albuterol/Ipratropium (Duoneb -) 1 amp NEB Q4H PRN PRN Reason: SHORTNESS OF BREATH Last Admin: 06/05/18 07:17 Dose: 1 amp Albuterol/Ipratropium (Duoneb -) 1 amp NEB RQID [facility] Last Admin: 06/08/18 11:53 Dose: 1 amp Apixaban (Eliquis -) 5 mg PO BID [facility] Last Admin: 06/08/18 10:45 Dose: 5 mg Ascorbic Acid (Vitamin C -) 500 mg PO DAILY [facility] Last Admin: 06/08/18 10:45 Dose: 500 mg Atorvastatin Calcium (Lipitor -) 40 mg PO HS [facility] Last Admin: 06/07/18 22:14 Dose: 40 mg Clonazepam (Klonopin -) 0.5 mg PO BID [facility] Last Admin: 06/08/18 10:45 Dose: 0.5 mg Furosemide (Lasix -) 20 mg PO DAILY [facility] Last Admin: 06/08/18 10:45 Dose: 20 mg Piperacillin Sod/Tazobactam (Sod 3.375 gm/ Dextrose) 50 mls @ 100 mls/hr IVPB Q8H-IV [facility]; Protocol Last Admin: 06/08/18 10:46 Dose: 100 mls/hr Insulin Aspart (Novolog Vial Sliding Scale -) 1 vial SQ [facility]; Protocol Last Admin: 06/08/18 06:46 Dose: 2 units Insulin Detemir (Levemir Vial) 30 units SQ [facility] Last Admin: 06/07/18 22:14 Dose: 30 units Lisinopril (Prinivil) 40 mg PO DAILY [facility] Last Admin: 06/08/18 10:45 Dose: 40 mg Metoprolol Tartrate (Lopressor -) 50 mg PO BID [facility] Last Admin: 06/08/18 10:46 Dose: 50 mg Potassium Chloride (Potassium Chloride Oral Liquid) 20 meq PO DAILY [facility] Last Admin: 06/08/18 10:45 Dose: 20 meq Ranitidine HCl (Zantac -) 150 mg PO BID [facility] Last Admin: 06/08/18 10:45 Dose: 150 mg Senna (Senna -) 2 tab PO HS [facility] Last Admin: 06/07/18 22:13 Dose: 2 tab - Objective Vital Signs: Vital Signs Temperature 98.7 F 06/08/18 06:33 Pulse Rate 100 H 06/08/18 06:33 Respiratory Rate 18 06/08/18 06:33 Blood Pressure 133/79 06/08/18 06:33 O2 Sat by Pulse Oximetry (%) 98 06/07/18 20:52 Constitutional: Yes: No Distress, Calm Neck: Yes: Supple Cardiovascular: Yes: Regular Rate and Rhythm Respiratory: Yes: Regular, Diminished Gastrointestinal: Yes: Normal Bowel Sounds, Soft Edema: No Labs: CBC, BMP 06/08/18 06:30 06/08/18 06:30 INR, PTT INR 1.52 (0.83-1.09) H 06/02/18 15:20 - ....Imaging Chest X-ray: Report Reviewed (Right base ATX) EKG: Report Reviewed (Tele: NSR occ PVC) Problem List - Problems (1) Paroxysmal atrial fibrillation Code(s): I48.0 - PAROXYSMAL ATRIAL FIBRILLATION (2) Pneumonia Code(s): J18.9 - PNEUMONIA, UNSPECIFIED ORGANISM Qualifiers: Pneumonia type: due to unspecified organism Laterality: right Lung location: unspecified part of lung Qualified Code(s): J18.9 - Pneumonia, unspecified organism (3) Sepsis Code(s): A41.9 - SEPSIS, UNSPECIFIED ORGANISM Qualifiers: Sepsis type: sepsis due to unspecified organism Qualified Code(s): A41.9 - Sepsis, unspecified organism (4) Chronic 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 (5) Demand ischemia Code(s): I24.8 - OTHER FORMS OF ACUTE ISCHEMIC HEART DISEASE (6) Diabetes Code(s): E11.9 - TYPE 2 DIABETES MELLITUS WITHOUT COMPLICATIONS Qualifiers: Diabetes mellitus type: type 2 (7) Diastolic dysfunction Code(s): I51.9 - HEART DISEASE, UNSPECIFIED (8) H/O: CVA (cerebrovascular accident) Code(s): Z86.73 - PRSNL HX OF TIA (TIA), AND CEREB INFRC W/O RESID DEFICITS (9) Hyperlipidemia Code(s): E78.5 - HYPERLIPIDEMIA, UNSPECIFIED Qualifiers: Hyperlipidemia type: pure hypercholesterolemia Qualified Code(s): E78.00 - Pure hypercholesterolemia, unspecified; E78.0 - Pure hypercholesterolemia (10) Leucocytosis Code(s): D72.829 - ELEVATED WHITE BLOOD CELL COUNT, UNSPECIFIED (11) Toxic metabolic encephalopathy Code(s): G92 - TOXIC ENCEPHALOPATHY Assessment/Plan Echocardiography dated 12/20/2017 revealed normal LV size and function, trace MR and TR 1. Respiratory distress, related to recurrent RLL aspiration pneumonia 2. 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 Diastolic LV dysfunction with clinical class 0-I NYHA classification LV failure, clinically compensated/euvolemic 5. Paroxysmal atrial fibrillation [id number] score 7 on DOAC's/Eliquis, currently in sinus rhythm 6. History of CVA with residual right-sided weakness 7. HTN 8. Diabetes Mellitus 9. Hypercholesterolemia 10. History of intermittent sigmoid volvulus post rectal tube decompression post sigmoid colectomy, colostomy and umbilical hernia repair 11. Chronic choleycystits post drainage PLAN: 1. Continue Lopressor 50 bid 2. Continue Lisinopril 40 qd 3. Continue Lipitor 40 qhs 4. Continue Eliquis 5 bid with caution and close monitoring of CBC 5. Continue Lasix 20 qd and K repletion 6. Empiric antibiotic course per ID, f/u C&S, BD, O2, aspiration precautions 7. Recommend conservative medical management considering his advanced co- morbidities
--- NOTE | 2018-06-08 13:35 | DS ---
Physical Examination Vital Signs: Vital Signs Temperature 98.5 F 06/08/18 10:00 Pulse Rate 98 H 06/08/18 10:00 Respiratory Rate 18 06/08/18 10:00 Blood Pressure 135/81 06/08/18 10:00 O2 Sat by Pulse Oximetry (%) 98 06/08/18 09:00 Constitutional: Yes: No Distress, Calm Cardiovascular: Yes: Regular Rate and Rhythm Respiratory: Yes: Diminished Gastrointestinal: Yes: Normal Bowel Sounds, Soft. No: Tenderness Edema: No Labs: CBC, BMP 06/08/18 06:30 06/08/18 06:30 Discharge Summary Reason For Visit: NON-ST ELEVATION MYOCARDIAL INFARCTION (NSTEMI) Current Active Problems Afib (Acute) NSTEMI (non-ST elevated myocardial infarction) (Acute) Paroxysmal atrial fibrillation (Acute) Pneumonia (Acute) Sepsis (Acute) Hospital Course: Admitted for NSTEMI, pneumonia Seen by Cardiology and ID Was in telemetry Troponins trending down on Eliquis No further recommendations oer Cardiology Medical management for now Pt was also on IV antibiotics-- now changed to PO Augmentin x 7 more days Stable for dc to NH Condition: Good - Instructions Disposition: [facility] - Home Medications Comprehensive Discharge Medication List: Ambulatory Orders Acetaminophen 650 mg PO QID PRN 06/02/18 Albuterol 2.5/Ipratropium 0.5 [Duoneb -] 1 neb IH QID 06/02/18 Apixaban [Eliquis] 5 mg PO BID 06/02/18 Ascorbic Acid 500 mg PO DAILY 06/02/18 Atorvastatin Ca [Lipitor] 40 mg PO HS 06/02/18 Furosemide 20 mg PO DAILY 06/02/18 Insulin Detemir [Levemir Flextouch] 22 unit SQ HS 06/02/18 Insulin Lispro [Humalog] 0 unit SQ BID 06/02/18 Lisinopril [Prinivil -] 40 mg PO DAILY 06/02/18 Metoprolol Tartrate [Lopressor] 50 mg PO BID 06/02/18 Oseltamivir Phosphate [Tamiflu] 75 mg PO DAILY 06/02/18 Potassium Chloride [Potassium Chloride Oral Liquid] 20 meq PO DAILY 06/02/18 Ranitidine [Zantac -] 150 mg PO BID 06/02/18 Sennosides [Senna -] 2 tab PO HS 06/02/18 clonazePAM [Klonopin -] 0.5 mg PO BID 06/02/18 Amoxicillin/Potassium Clav [Augmentin 875-125 Tablet] 1 each PO BID #14 tablet 06/08/18
--- NOTE | 2018-06-08 14:07 | PN ---
Progress Note (short form) - Note Progress Note: Resting in NAD. No acute events overnight. Intake & Output 06/05/18 06/06/18 06/07/18 06/08/18 23:59 23:59 23:59 23:59 Intake Total 800 820 440 220 Output Total 2 Balance 798 820 440 220 Last Vital Signs Temp Pulse Resp BP Pulse Ox 98.5 F 98 H 18 135/81 98 06/08/18 10:00 06/08/18 10:00 06/08/18 10:00 06/08/18 10:00 06/08/18 09:00 Active Medications Acetaminophen (Tylenol -) 650 mg PO Q6H PRN PRN Reason: PAIN Last Admin: 06/06/18 18:54 Dose: 650 mg Albuterol/Ipratropium (Duoneb -) 1 amp NEB Q4H PRN PRN Reason: SHORTNESS OF BREATH Last Admin: 06/05/18 07:17 Dose: 1 amp Albuterol/Ipratropium (Duoneb -) 1 amp NEB RQID [facility] Last Admin: 06/08/18 11:53 Dose: 1 amp Apixaban (Eliquis -) 5 mg PO BID [facility] Last Admin: 06/08/18 10:45 Dose: 5 mg Ascorbic Acid (Vitamin C -) 500 mg PO DAILY [facility] Last Admin: 06/08/18 10:45 Dose: 500 mg Atorvastatin Calcium (Lipitor -) 40 mg PO HS [facility] Last Admin: 06/07/18 22:14 Dose: 40 mg Clonazepam (Klonopin -) 0.5 mg PO BID [facility] Last Admin: 06/08/18 10:45 Dose: 0.5 mg Furosemide (Lasix -) 20 mg PO DAILY [facility] Last Admin: 06/08/18 10:45 Dose: 20 mg Piperacillin Sod/Tazobactam (Sod 3.375 gm/ Dextrose) 50 mls @ 100 mls/hr IVPB Q8H-IV [facility]; Protocol Last Admin: 06/08/18 10:46 Dose: 100 mls/hr Insulin Aspart (Novolog Vial Sliding Scale -) 1 vial SQ [facility]; Protocol Last Admin: 06/08/18 12:18 Dose: 2 units Insulin Detemir (Levemir Vial) 30 units SQ [facility] Last Admin: 06/07/18 22:14 Dose: 30 units Lisinopril (Prinivil) 40 mg PO DAILY [facility] Last Admin: 06/08/18 10:45 Dose: 40 mg Metoprolol Tartrate (Lopressor -) 50 mg PO BID [facility] Last Admin: 06/08/18 10:46 Dose: 50 mg Potassium Chloride (Potassium Chloride Oral Liquid) 20 meq PO DAILY [facility] Last Admin: 06/08/18 10:45 Dose: 20 meq Ranitidine HCl (Zantac -) 150 mg PO BID [facility] Last Admin: 06/08/18 10:45 Dose: 150 mg Senna (Senna -) 2 tab PO HS [facility] Last Admin: 06/07/18 22:13 Dose: 2 tab Constitutional: Yes: NAD Eyes: Yes: WNL HENT: Yes: WNL Neck: Yes: WNL Cardiovascular: Yes: Pulse Irregular, S1, S2 Respiratory: Yes: Diminished Gastrointestinal: Yes: Normal Bowel Sounds, Soft Extremities: Yes: WNL Edema: No Labs: Laboratory Results - last 24 hr 06/07/18 06/07/18 06/08/18 16:49 22:10 05:56 WBC RBC Hgb Hct MCV MCH MCHC RDW Plt Count MPV Absolute Neuts (auto) Neutrophils % Lymphocytes % Monocytes % Eosinophils % Basophils % Nucleated RBC % Sodium Potassium Chloride Carbon Dioxide Anion Gap BUN Creatinine Creat Clearance w eGFR POC Glucometer 134 271 193 Random Glucose Calcium Total Bilirubin AST ALT Alkaline Phosphatase Total Protein Albumin 06/08/18 06/08/18 06/08/18 06:30 06:30 11:48 WBC 9.6 RBC 3.45 L Hgb 10.9 L Hct 31.5 L MCV 91.3 MCH 31.5 MCHC 34.5 RDW 15.8 Plt Count 282 MPV 9.6 Absolute Neuts (auto) 5.5 Neutrophils % 56.8 D Lymphocytes % 33.0 Monocytes % 8.0 Eosinophils % 1.9 Basophils % 0.3 Nucleated RBC % 0 Sodium 141 Potassium 3.7 Chloride 104 Carbon Dioxide 30 Anion Gap 6 L BUN 9 Creatinine 0.6 Creat Clearance w eGFR > 60 POC Glucometer 170 Random Glucose 193 H Calcium 8.7 Total Bilirubin 0.4 AST 24 ALT 20 Alkaline Phosphatase 60 Total Protein 7.2 Albumin 2.2 L Problem List - Problems (1) Paroxysmal atrial fibrillation Code(s): I48.0 - PAROXYSMAL ATRIAL FIBRILLATION (2) Bronchitis Code(s): J40 - BRONCHITIS, NOT SPECIFIED ACUTE OR CHRONIC (3) COPD (chronic obstructive pulmonary disease) Code(s): J44.9 - CHRONIC OBSTRUCTIVE PULMONARY DISEASE, UNSPECIFIED Qualifiers: Emphysema type: unspecified (4) COPD exacerbation Code(s): J44.1 - CHRONIC OBSTRUCTIVE PULMONARY DISEASE W (ACUTE) EXACERBATION (5) Chronic anticoagulation Code(s): Z79.01 - SKILLED NURSING (CURRENT) USE OF ANTICOAGULANTS (6) Demand ischemia Code(s): I24.8 - OTHER FORMS OF ACUTE ISCHEMIC HEART DISEASE (7) Diabetes Code(s): E11.9 - TYPE 2 DIABETES MELLITUS WITHOUT COMPLICATIONS Qualifiers: Diabetes mellitus type: type 2 (8) Diastolic dysfunction Code(s): I51.9 - HEART DISEASE, UNSPECIFIED (9) Elevated troponin Code(s): R74.8 - ABNORMAL LEVELS OF OTHER SERUM ENZYMES (10) H/O: CVA (cerebrovascular accident) Code(s): Z86.73 - PRSNL HX OF TIA (TIA), AND CEREB INFRC W/O RESID DEFICITS (11) History of open sigmoidectomy Code(s): Z98.890 - OTHER SPECIFIED POSTPROCEDURAL STATES; Z90.49 - ACQUIRED ABSENCE OF OTHER SPECIFIED PARTS OF DIGESTIVE TRACT (12) Pneumonia Code(s): J18.9 - PNEUMONIA, UNSPECIFIED ORGANISM Qualifiers: Pneumonia type: due to unspecified organism Laterality: right Lung location: lower lobe of lung Qualified Code(s): J18.1 - Lobar pneumonia, unspecified organism (13) Toxic metabolic encephalopathy Code(s): G92 - TOXIC ENCEPHALOPATHY (14) Afib Code(s): I48.91 - UNSPECIFIED ATRIAL FIBRILLATION Assessment/Plan IMP RUL,RLL PNEUMONIA HCAP ? ASPIRATION RESPIRATORY DISTRESS SECONDARY TO ABOVE ALTERED MENTAL STATUS TOXIC-METABOLIC ENCEPHALOPATHY DIASTOLIC HF AFIB + TROPONINS H/O CVA HTN GERD COPD H/O SIGMOID VOLVULUS S/P COLECTOMY/COLOSTOMY PLAN AUGMENTIN O2 NEEDED INHALED BRONCHODILATORS PRN ASPIRATION PRECAUTIONS AC D/C PLANNING TO SNF DR BURR
[2018-06-08] MEDS: ACETAMINOPHEN 325 MG TABLET (FP) PO PRN (17:30)
[2018-06-08 18:26] VITALS: BP 146/88; PULSE 88; TEMP 98.2
== END 2018-06-08 18:47 | DRG 871 ==
LOC: JER 14:59 → JERBED 17:07 → J4S 06-03 00:31
PROVIDERS: ADMIT Internal Medicine; ATTEND Internal Medicine
DX: A41.9 Sepsis, unspecified organism (principal); I21.4 Non-ST elevation (NSTEMI) myocardial infarction; G92 Toxic encephalopathy; J69.0 Pneumonitis due to inhalation of food and vomit; I69.351 Hemiplegia and hemiparesis following cerebral infarction affecting right dominant side; I50.32 Chronic diastolic (congestive) heart failure; Z79.01 Long term (current) use of anticoagulants; E11.9 Type 2 diabetes mellitus without complications; E78.5 Hyperlipidemia, unspecified; I11.0 Hypertensive heart disease with heart failure; J44.9 Chronic obstructive pulmonary disease, unspecified; F03.90 Unspecified dementia, unspecified severity, without behavioral disturbance, psychotic disturbance, mood disturbance, and anxiety; Z79.4 Long term (current) use of insulin; F41.9 Anxiety disorder, unspecified; K21.9 Gastro-esophageal reflux disease without esophagitis; I48.0 Paroxysmal atrial fibrillation; E78.00 Pure hypercholesterolemia, unspecified
CPT/HCPCS: 36415; 71045-TC-FY; 71275-TC; 74177-TC; 80048; 80053; 81003; 81015; 82550; 82803; 82962; 83605; 84484; 85025; 85027; 85610; 85730; 87040; 87086; 87804; 93005; 93010; 94640; 97161-GP; 99283-25; J0131; J7030

== ENCOUNTER 2018-06-19 11:40 | Inpatient (IN) | payer OTHER ==
[2018-06-19] MEDS ORDERED: ALBUTEROL SO4 2.5/IPRATROPIUM 0.5 INH SOL 3 ML VIAL.NEB. NEB ONE ×2 (12:45→12:57)
[2018-06-19 12:59] LABS: BASO % 0.5 % (0-2.0); EOS % 0.3 % (0-4.5); HEMATOCRIT 34.4 % (35.4-49); MCH 31.6 pg (25.7-33.7); MCHC 34.8 g/dl (32.0-35.9); MEAN CELL VOLUME 90.9 fl (80-96); MEAN PLT VOLUME 9.5 fl (7.5-11.1); MONO % 9.1 % (3.8-10.2); NEUT % 67.1 % (42.8-82.8); PLATELET COUNT 295 K/MM3 (134-434); RBC 3.78 M/mm3 (4.00-5.60); RDW 15.9 % (11.9-15.9); WHITE BLOOD COUNT 10.8 K/mm3 (4.0-10.0)
[2018-06-19 13:01] LABS: VENOUS PC02 47.8 mmHg (38-52); VENOUS PH 7.37 (7.32-7.42); VENOUS PO2 28.5 mmHg (28-48)
--- NOTE | 2018-06-19 13:18 | PDOC ---
History of Present Illness - General History Source: Patient Exam Limitations: No Limitations - History of Present Illness Initial Comments: 06/19/18 13:43 The patient is a 78 year old male with a PMH afib, HTN, COPD, DM, CVA with right sided paresis, dementia, CHF, colectomy on 04/11, cholecystitis s/p percutaneous drain tube, recent admission for aspiration pneumonia and NSTEMI sent in by [facility] for failure to thrive and decreased PO intake. retirement sent him here for possible PEG tube placement. Patient was started on IV zosyn on 06/17. Patient is unable to provide any further history. Allergies: NKA Past surgical history: None reported. Social history: No reported alcohol, drug or cigarette use. PCP: Dr. Vanegas <Mckenna Shafer - Last Filed: 06/19/18 13:50> - General History Source: Patient Exam Limitations: No Limitations <Elisa Conrad - Last Filed: 06/19/18 15:33> - General Chief Complaint: Weakness Stated Complaint: Weakness Past History <Mckenna Shafer - Last Filed: 06/19/18 13:50> - Past Medical History Anemia: No Asthma: No Cardiac Disorders: Yes (atrial fib) CVA: Yes (rt hemiparesis) COPD: Yes CHF: Yes Dementia: Yes Diabetes: Yes GI Disorders: Yes (GERD) HTN: Yes Hypercholesterolemia: Yes - Surgical History GI Surgery: Yes (volvulus or ascending colon sx) Neurologic Surgery: No - Immunization History Immunization Up to Date: Yes - Suicide/Smoking/Psychosocial Hx Smoking Status: No Smoking History: Never smoked Have you smoked in the past 12 months: No Number of Cigarettes Smoked Daily: 0 If you are a former smoker, when did you quit?: 6 years ago Information on smoking cessation initiated: No Hx Alcohol Use: No Drug/Substance Use Hx: No Substance Use Type: None Hx Substance Use Treatment: No <Elisa Conrad - Last Filed: 06/19/18 15:33> - Past Medical History Allergies/Adverse Reactions: Allergies Allergy/AdvReac Type Severity Reaction Status Date / Time No Known Allergies Allergy Verified 06/19/18 11:45 Home Medications: Ambulatory Orders Acetaminophen 650 mg PO QID PRN 06/02/18 Albuterol 2.5/Ipratropium 0.5 [Duoneb -] 1 neb IH QID 06/02/18 Apixaban [Eliquis] 5 mg PO BID 06/02/18 Ascorbic Acid 500 mg PO DAILY 06/02/18 Atorvastatin Ca [Lipitor] 40 mg PO HS 06/02/18 Furosemide 20 mg PO DAILY 06/02/18 Insulin Detemir [Levemir Flextouch] 22 unit SQ HS 06/02/18 Insulin Lispro [Humalog] 0 unit SQ BID 06/02/18 Lisinopril [Prinivil -] 40 mg PO DAILY 06/02/18 Metoprolol Tartrate [Lopressor] 50 mg PO BID 06/02/18 Potassium Chloride [Potassium Chloride Oral Liquid] 20 meq PO DAILY 06/02/18 Ranitidine [Zantac -] 150 mg PO BID 06/02/18 Sennosides [Senna -] 2 tab PO HS 06/02/18 Cholecalciferol (Vitamin D3) [Vitamin D3 -] 1,000 unit PO DAILY 06/19/18 Guaifenesin [Mucinex] 600 mg PO BID 06/19/18 Zosyn 3.375GM Ivpb (Premix) 3.375 mg IVPB TID 06/19/18 Review of Systems - Review of Systems Able to Perform ROS?: Yes Comments:: 06/19/18 13:44 As per NH; ADULT ROS GENERAL/CONSTITUTIONAL: No fever or chills. (+) failure to thrive. HEAD, EYES, EARS, NOSE AND THROAT: No change in vision. No ear pain or discharge. No sore throat. CARDIOVASCULAR: No chest pain or shortness of breath. RESPIRATORY: No cough, wheezing, or hemoptysis. GASTROINTESTINAL: No nausea, vomiting, diarrhea or constipation. (+) decreased PO intake. GENITOURINARY: No dysuria, frequency, or change in urination. MUSCULOSKELETAL: No joint or muscle swelling or pain. No neck or back pain. SKIN: No rash NEUROLOGIC: No headache, vertigo, loss of consciousness, or change in strength/ sensation. ENDOCRINE: No increased thirst. No abnormal weight change. HEMATOLOGIC/LYMPHATIC: No anemia, easy bleeding, or history of blood clots. ALLERGIC/IMMUNOLOGIC: No hives or skin allergy. <Mckenna Shafer - Last Filed: 06/19/18 13:50> *Physical Exam - Vital Signs Last Vital Signs Temp Pulse Resp BP Pulse Ox 99.6 F 58 L 18 160/92 97 06/19/18 11:40 06/19/18 11:40 06/19/18 13:21 06/19/18 11:40 06/19/18 13:21 - Physical Exam Comments: 06/19/18 13:49 ADULT EXAM GENERAL: (+) eyes closed but arousable. (+) oriented x1, name ENT: (+) Dry mucous membranes. LUNGS: (+) Thick crackles at the bases. HEART: Regular rate and rhythm, normal S1 and S2, no murmurs, rubs or gallops ABDOMEN: Soft, nontender, normoactive bowel sounds. No guarding, no rebound. No masses. (+) Left sided colostomy. (+) exlap scar. EXTREMITIES: Normal range of motion, no edema. No erythema or tenderness. DP/PT pulses 2+ and symmetric. Warm and well perfused. NEUROLOGICAL: Moves all extremities. (+) left sided paresis 2/2 CVA (+) moves left upper and lower extremities. SKIN: Warm, Dry <Mckenna Shafer - Last Filed: 06/19/18 13:50> - Vital Signs Last Vital Signs Temp Pulse Resp BP Pulse Ox 99.6 F 58 L 20 160/92 100 06/19/18 11:40 06/19/18 11:40 06/19/18 12:49 06/19/18 11:40 06/19/18 12:49 <Elisa Conrad - Last Filed: 06/19/18 15:33> Moderate Sedation - Procedure Monitoring Vital Signs: Procedure Monitoring Vital Signs Temperature 99.6 F 06/19/18 11:40 Pulse Rate 58 L 06/19/18 11:40 Respiratory Rate 18 06/19/18 13:21 Blood Pressure 160/92 06/19/18 11:40 O2 Sat by Pulse Oximetry (%) 97 06/19/18 13:21 <Mckenna Shafer - Last Filed: 06/19/18 13:50> - Procedure Monitoring Vital Signs: Procedure Monitoring Vital Signs Temperature 99.6 F 06/19/18 11:40 Pulse Rate 58 L 06/19/18 11:40 Respiratory Rate 20 06/19/18 12:49 Blood Pressure 160/92 06/19/18 11:40 O2 Sat by Pulse Oximetry (%) 100 06/19/18 12:49 <Elisa Conrad - Last Filed: 06/19/18 15:33> Heart Score/ECG Review #1 General ECG Interpretation: Normal Intervals, No acute ischemic changes Compared to previous ECG there are: Other (sinus tachycardia.) <Elisa Conrad - Last Filed: 06/19/18 15:33> ED Treatment Course - LABORATORY CBC & Chemistry Diagram: 06/19/18 12:42 06/19/18 12:44 - ADDITIONAL ORDERS Additional order review: Laboratory Results 06/19/18 06/19/18 12:48 12:42 PT with INR 26.80 H INR 2.25 H PTT (Actin FS) 31.2 VBG pH 7.37 POC VBG pCO2 47.8 POC VBG pO2 28.5 D Mixed VBG HCO3 26.7 H 06/19/18 12:42 RBC 3.78 L MCV 90.9 MCHC 34.8 RDW 15.9 MPV 9.5 Neutrophils % 67.1 Lymphocytes % 23.0 D Monocytes % 9.1 Eosinophils % 0.3 D Basophils % 0.5 - Medications Given in the ED: ED Medications Discontinued Medications Generic Name Dose Route Start Last Admin Trade Name Freq PRN Reason Stop Dose Admin Albuterol/Ipratropium 1 amp 06/19/18 12:45 06/19/18 13:17 Duoneb - NEB 06/19/18 12:46 1 amp ONCE ONE Administration <Mckenna Shafer - Last Filed: 06/19/18 13:50> - LABORATORY CBC & Chemistry Diagram: 06/19/18 12:42 06/19/18 12:44 - ADDITIONAL ORDERS Additional order review: Laboratory Results 06/19/18 12:48 VBG pH 7.37 POC VBG pCO2 47.8 POC VBG pO2 28.5 D Mixed VBG HCO3 26.7 H - RADIOLOGY Radiology Studies Ordered: Category Date Time Status CHEST X-RAY PORTABLE* [RAD] Stat Radiology 06/19/18 12:45 Taken <Elisa Conrad - Last Filed: 06/19/18 15:33> Medical Decision Making - Medical Decision Making 06/19/18 13:13 75 yo male h/o htn copd dm afib, recent colectomy 04/11, and cholecystitis intrabdominal infection treated with perc drain, followed admission for pna and nstemi, here from nursing facility for aspiration pna, decline, failure to tolerate PO. here for PEG placement. pt h/o cva, right sided paresis. was started on zosyn by nursing facilty 2.23 on exam pt eyes closed but arousable. drymucous membranes, lungs wtih thick crackles at bases. heart rrr no mrg abd soft nt. left sided colostomy. exlap scar. ext cool, wwp. no edema. nuero alert oriented x 1, quiet speech, moves left ext , right sided paresis ( upper and lower) plan will obtain xray, pt already on zosyn for pna, hypoxic here will treat with duonebs. will require admission, continue zosyn, d/w admitting dr alegria , or rick. ua blood work . 06/19/18 15:31 pt with elevated LFT. concern for recurrent cholecysitis, cholangitis. focused ED bed us unable to visualize gb wall. noted stones. will obtain rad us, ct a/ p. ct ordered. dr novoa updated. pt has gotten zosyn prior to arrival to ED from [facility]. will obtain cultures . pt with known pneumonia on abx for 3 days, but concerns for possible infection from GB source, . <Elisa Conrad - Last Filed: 06/19/18 15:33> *DC/Admit/Observation/Transfer - Attestations Scribe Attestion: 06/19/18 13:50 Documentation prepared by Mckenna Shafer, acting as medical biller coder for Elisa Conrad MD. <Mckenna Shafer - Last Filed: 06/19/18 13:50> - Discharge Dispostion Decision to Admit order: Yes <Elisa Conrad - Last Filed: 06/19/18 15:33> Diagnosis at time of Disposition: Pneumonia, Hypoxemia
[2018-06-19 13:26] LABS: INR 2.25 (0.83-1.09); PROTHROMBIN TIME (PATIENT) 26.8 SEC (9.7-13.0)
[2018-06-19 13:29] LABS: ACTIVATED PTT 31.2 SECONDS (25.2-36.5)
[2018-06-19 13:45] LABS: ALBUMIN 2.3 g/dl (3.4-5.0); ALK PHOS 162 U/L (45-117); ANION GAP 8 MMOL/L (8-16); BILIRUBIN,TOTAL 0.8 mg/dL (0.2-1); BLOOD UREA NITROGEN 25 mg/dL (7-18); CALCIUM 8.6 mg/dL (8.5-10.1); CHLORIDE 106 mmol/L (98-107); CO2 27 mmol/L (21-32); CREATININE 1.1 mg/dL (0.55-1.3); GLUCOSE,RANDOM 197 mg/dL (74-106); POTASSIUM 4.1 mmol/L (3.5-5.1); SGOT/AST 1009 U/L (15-37); SGPT/ALT 649 U/L (13-61); SODIUM 142 mmol/L (136-145); TOT PROT 7.9 g/dl (6.4-8.2)
[2018-06-19] MEDS ORDERED: VANCOMYCIN 1 GM in D5W (PRE-DOCKED) 1,000 MG/250 ML IVPB ONE (14:08)
[2018-06-19] MEDS ORDERED: VANCOMYCIN 1 GRAM (PRE-DOCKED) 1,000 MG/250 ML BAG IVPB ONE (14:15)
[2018-06-19] MEDS ORDERED: SODIUM CHLORIDE 0.9% 1000 ML INFUS.BAG IV ONE (15:29)
[2018-06-19 16:16] LABS: URINE APPEARANCE SLCLOUDY; URINE BILIRUBIN NEGATIVE (<2.0 mg/dL); URINE COLOR YELLOW; URINE GLUCOSE (UA) NEGATIVE (NEGATIVE); URINE KETONE NEGATIVE (NEGATIVE); URINE LEUK ESTERASE NEGATIVE (NEGATIVE); URINE NITRITE NEGATIVE (NEGATIVE); URINE PROTEIN 1+ (NEGATIVE); URINE UROBILINOGEN NEGATIVE mg/dL (0.2-1.0)
[2018-06-19 16:19] LABS: URINE BACTERIA RARE /hpf (NONE SEEN)
--- NOTE | 2018-06-19 20:24 | EKG ---
Test Reason : Blood Pressure : / mmHG Vent. Rate : 106 BPM Atrial Rate : 106 BPM P-R Int : 144 ms QRS Dur : 088 ms QT Int : 350 ms P-R-T Axes : 032 -26 091 degrees QTc Int : 464 ms SINUS TACHYCARDIA WITH PREMATURE SUPRAVENTRICULAR COMPLEXES AND WITH OCCASIONAL PREMATURE VENTRICULAR COMPLEXES ANTEROSEPTAL INFARCT , AGE UNDETERMINED POOR R WAVE PROGRESSION ABNORMAL ECG WHEN COMPARED WITH ECG OF 02-JUN-2018 22:16, PREMATURE VENTRICULAR COMPLEXES ARE NOW PRESENT T WAVE VARIATION Confirmed by BECKIE DELCID MD ([id number]) on 06/19/2018 8:23:49 PM Referred By: Confirmed By:BECKIE DELCID MD
--- NOTE | 2018-06-20 00:33 | HP ---
CHIEF COMPLAINT: failure to thrive/poor oral intake at detention PCP:Dr. Mendez HISTORY OF PRESENT ILLNESS: This is a 78 year old male with a past medical history of atrial fibrillation ( on Eliquis), hypertension, COPD, diabetes mellitus, chronic kidney disease, CVA with right sided paresis, congestive heart failure (diastolic versus systolic unknown) , dementia, colectomy on 04/11, cholecystitis s/p percutaneous drain tube who had a recent admission for aspiration pneumonia and NSTEMI . He was sent in by [facility] for failure to thrive and decreased oral intake. residential sent him here for evaluation for possible PEG tube placement. Patient was started on IV zosyn on 06/17. Patient is unable to provide any further history and a poor historian. Upon evaluation in the ER CT scan of abomen and pelvis demonstrated a 2 X 3 cm gallbladder abscess and ultrasound showed cholethiasis, no acute cholycystitis and sludge. CXR showed a decreasing right infiltrate and an increasing left infiltrate. He is afebrile. He has a WBC of 10.8, lactic acid of 3.5. He received one dosage of IV Vancomycin in the ER. He is in atrial fibrillation with ventricular rates ranging in the 110's . He has no evidence of hypoxia or hypotension. He is being admitted for further medical/GI/Pulmonary /ID/and surgery evaluation. Recent Travel: unable to obtain PAST MEDICAL HISTORY: CAD, atrial fibrillation, hypertension, COPD, diabetes mellitus, CVA with right sided paresis, dementia, congestive heart failure ( diastolic versus systolic unknown), recent aspiration pneumonia PAST SURGICAL HISTORY: colectomy on 04/11, cholecystitis s/p percutaneous drain tube Social History: unable to obtain Family History: noncontributory Allergies No Known Allergies Allergy (Verified 06/19/18 11:45) HOME MEDICATIONS: Home Medications Medication Instructions Recorded Acetaminophen 650 mg PO QID PRN 06/02/18 Albuterol 2.5/Ipratropium 0.5 1 neb IH QID 06/02/18 [Duoneb -] Apixaban [Eliquis] 5 mg PO BID 06/02/18 Ascorbic Acid 500 mg PO DAILY 06/02/18 Atorvastatin Ca [Lipitor] 40 mg PO HS 06/02/18 Furosemide 20 mg PO DAILY 06/02/18 Insulin Detemir [Levemir Flextouch] 22 unit SQ HS 06/02/18 Insulin Lispro [Humalog] 0 unit SQ BID 06/02/18 Lisinopril [Prinivil -] 40 mg PO DAILY 06/02/18 Metoprolol Tartrate [Lopressor] 50 mg PO BID 06/02/18 Potassium Chloride [Potassium 20 meq PO DAILY 06/02/18 Chloride Oral Liquid] Ranitidine [Zantac -] 150 mg PO BID 06/02/18 Sennosides [Senna -] 2 tab PO HS 06/02/18 Cholecalciferol (Vitamin D3) 1,000 unit PO DAILY 06/19/18 [Vitamin D3 -] Guaifenesin [Mucinex] 600 mg PO BID 06/19/18 Zosyn 3.375GM Ivpb (Premix) 3.375 mg IVPB TID 06/19/18 REVIEW OF SYSTEMS CONSTITUTIONAL: Absent: fever, chills, diaphoresis, generalized weakness, malaise, loss of appetite, weight change HEENT: Absent: rhinorrhea, nasal congestion, throat pain, throat swelling, difficulty swallowing, mouth swelling, ear pain, eye pain, visual changes CARDIOVASCULAR: Absent: chest pain, syncope, palpitations, irregular heart rate, lightheadedness , peripheral edema RESPIRATORY: Absent: cough, shortness of breath, dyspnea with exertion, orthopnea, wheezing, stridor, hemoptysis GASTROINTESTINAL: Absent: abdominal pain, abdominal distension, nausea, vomiting, diarrhea, constipation, melena, hematochezia GENITOURINARY: Absent: dysuria, frequency, urgency, hesitancy, hematuria, flank pain, genital pain MUSCULOSKELETAL: Absent: myalgia, arthralgia, joint swelling, back pain, neck pain SKIN: Absent: rash, itching, pallor HEMATOLOGIC/IMMUNOLOGIC: Absent: easy bleeding, easy bruising, lymphadenopathy, frequent infections ENDOCRINE: Absent: unexplained weight gain, unexplained weight loss, heat intolerance, cold intolerance NEUROLOGIC: Absent: headache, focal weakness or paresthesias, dizziness, unsteady gait, seizure, mental status changes, bladder or bowel incontinence PSYCHIATRIC: Absent: anxiety, depression, suicidal or homicidal ideation, hallucinations. PHYSICAL EXAMINATION Vital Signs - 24 hr 06/19/18 06/19/18 06/19/18 11:40 11:45 12:48 Temperature 99.6 F Pulse Rate 58 L Pulse Rate [ Apical] Respiratory 18 30 H 28 H Rate Blood Pressure 160/92 Blood Pressure [Right Arm] O2 Sat by Pulse 100 86 L 88 L Oximetry (%) 06/19/18 06/19/18 06/19/18 12:49 13:21 14:33 Temperature Pulse Rate 55 L Pulse Rate [ Apical] Respiratory 20 18 Rate Blood Pressure Blood Pressure [Right Arm] O2 Sat by Pulse 100 97 92 L Oximetry (%) 06/19/18 06/19/18 06/19/18 15:37 16:48 18:48 Temperature Pulse Rate Pulse Rate [ 112 H 120 H 106 H Apical] Respiratory 16 20 22 H Rate Blood Pressure Blood Pressure 162/80 178/100 H 163/105 H [Right Arm] O2 Sat by Pulse 97 94 L 94 L Oximetry (%) 06/19/18 21:48 Temperature 98.7 F Pulse Rate Pulse Rate [ 112 H Apical] Respiratory 20 Rate Blood Pressure Blood Pressure 140/100 [Right Arm] O2 Sat by Pulse 94 L Oximetry (%) GENERAL: awake, follows simple commands HEAD: normal EYES: pupils equal, round and reactive to light LUNGS: breath sounds diminished nonlabored breathing effort no rales no wheezing HEART: Regular rate and rhythm, normal S1 and S2 without murmur, rub or gallop. ABDOMEN: soft, nontender, not distended, bowel sound present MUSCULOSKELETAL: limited ROM with right sides weakness UPPER EXTREMITIES: 2+ pulses, warm, well-perfused. no cyanosis LOWER EXTREMITIES: 2+ pulses, warm, well-perfused. no pitting edema NEUROLOGICAL: right sided weakness SKIN: warm, dry, and warm to touch Laboratory Results - last 24 hr 06/19/18 06/19/18 06/19/18 12:42 12:42 12:42 WBC 10.8 H RBC 3.78 L Hgb 12.0 Hct 34.4 L MCV 90.9 MCH 31.6 MCHC 34.8 RDW 15.9 Plt Count 295 MPV 9.5 Absolute Neuts (auto) 7.2 Neutrophils % 67.1 Lymphocytes % 23.0 D Monocytes % 9.1 Eosinophils % 0.3 D Basophils % 0.5 Nucleated RBC % 0 PT with INR 26.80 H INR 2.25 H PTT (Actin FS) 31.2 VBG pH POC VBG pCO2 POC VBG pO2 Mixed VBG HCO3 Sodium Potassium Chloride Carbon Dioxide Anion Gap BUN Creatinine Creat Clearance w eGFR Random Glucose Lactic Acid Calcium Total Bilirubin AST ALT Alkaline Phosphatase Total Protein Albumin Urine Color Urine Appearance Urine pH Ur Specific [place] Urine Protein Urine Glucose (UA) Urine Ketones Urine Blood Urine Nitrite Urine Bilirubin Urine Urobilinogen Ur Leukocyte Esterase Urine WBC (Auto) Urine RBC (Auto) Urine Bacteria Blood Type A POSITIVE Antibody Screen Negative 06/19/18 06/19/18 06/19/18 12:44 12:48 16:00 WBC RBC Hgb Hct MCV MCH MCHC RDW Plt Count MPV Absolute Neuts (auto) Neutrophils % Lymphocytes % Monocytes % Eosinophils % Basophils % Nucleated RBC % PT with INR INR PTT (Actin FS) VBG pH 7.37 POC VBG pCO2 47.8 POC VBG pO2 28.5 D Mixed VBG HCO3 26.7 H Sodium 142 Potassium 4.1 Chloride 106 Carbon Dioxide 27 Anion Gap 8 BUN 25 H Creatinine 1.1 Creat Clearance w eGFR > 60 Random Glucose 197 H Lactic Acid 3.2 H* Calcium 8.6 Total Bilirubin 0.8 AST 1009 H ALT 649 H Alkaline Phosphatase 162 H Total Protein 7.9 Albumin 2.3 L Urine Color Urine Appearance Urine pH Ur Specific [place] Urine Protein Urine Glucose (UA) Urine Ketones Urine Blood Urine Nitrite Urine Bilirubin Urine Urobilinogen Ur Leukocyte Esterase Urine WBC (Auto) Urine RBC (Auto) Urine Bacteria Blood Type Antibody Screen 06/19/18 06/19/18 16:00 21:23 WBC RBC Hgb Hct MCV MCH MCHC RDW Plt Count MPV Absolute Neuts (auto) Neutrophils % Lymphocytes % Monocytes % Eosinophils % Basophils % Nucleated RBC % PT with INR INR PTT (Actin FS) VBG pH POC VBG pCO2 POC VBG pO2 Mixed VBG HCO3 Sodium Potassium Chloride Carbon Dioxide Anion Gap BUN Creatinine Creat Clearance w eGFR Random Glucose Lactic Acid 3.5 H* Calcium Total Bilirubin AST ALT Alkaline Phosphatase Total Protein Albumin Urine Color Yellow Urine Appearance Slcloudy Urine pH 5.0 Ur Specific [place] 1.025 Urine Protein 1+ H Urine Glucose (UA) Negative Urine Ketones Negative Urine Blood 2+ H Urine Nitrite Negative Urine Bilirubin Negative Urine Urobilinogen Negative Ur Leukocyte Esterase Negative Urine WBC (Auto) 2 Urine RBC (Auto) 5 Urine Bacteria Rare Blood Type Antibody Screen ASSESSMENT/PLAN: 78 year old male with a past medical history of atrial fibrillation (on Eliquis ), hypertension, COPD, diabetes mellitus, chronic kideney disease, CVA with right sided paresis, congestive heart failure (diastolic versus systolic unknown) , dementia, colectomy on 04/11, cholecystitis s/p percutaneous drain tube who had a recent admission for aspiration pneumonia and NSTEMI . He was sent in by [facility] for failure to thrive and decreased oral intake. residential sent him here for evaluation for possible PEG tube placement. Patient was started on IV zosyn on 06/17. Patient is unable to provide any further history and a poor historian. Failure to Thrive/Albuminia Cosulted venipuncturist. Monitor weight daily. Consulted Surgery- Dr. Ding for evaluation for PEG placement Check TSH. Gallbladder Abscess Continue with IV zosyn q 8 hrs. ID consulted- Dr. Peters. Atrial Fibrillation Rates are suboptimally controlled. Continue with metoprolol tartrate and likely elevated in setting of acute illness. On eliquis for anticoagulation, will place on hold for anticipation for possible PEG placement. INR is 2.25. Repeat INR in am. Will need to be initiated on lovenox for stroke prophylaxis within 48 hours. Acute on Chronic Congestive Heart Failure Patient appears euvolemic on physical exam. CT scan scan of chest showing a moderate right pleural effusion and small to moderate left pleural effusion. Likely will benefit from one dosage of IV lasix 40 mg. Monitor renal studies and electrolytes and strict I&O's. Continue to monitor patient respiratory status closely. Will check BNP. Aspiration Pneumonia CXR with worsening left infiltrate by CXR ,on CT scan has a right and left pleural effusion. Patient remains afebrile with leukocytosis and an elevated lactic acid level. Pulmonary- Dr. Diane consulted for further recommendations. Hypertension Uncontrolled. Continue with beta kiran. Continue to monitor closely. Diabetes Mellitus Accucheks before meals and at bedtime. Chronic Kidney Disease Creatinine 1.1,. Continue to monitor. Transaminitis GI consulted. Dr. Gutierrez consulted. Repeat LFT's in am. Tylenol and statin placed on hold. COPD No acute exacerbation. Continue with Albuterol nebulizer treatments. FEN NPO, will hold on IV fluids and would C=caution with IV fluids to avoid an acute CHF exacerbation. DVT Prophylaxsis SCD's and on systemic anticoagulation which was placed on hold 06/20. Visit type - Emergency Visit Emergency Visit: Yes ED Registration Date: 06/19/18 Care time: The patient presented to the Emergency Department on the above date and was hospitalized for further evaluation of their emergent condition. - New Patient This patient is new to me today: Yes Date on this admission: 06/20/18 - Critical Care Critical Care patient: No
[2018-06-20] MEDS ORDERED: SODIUM CHLORIDE 1,000 ML IV SCH (01:00)
[2018-06-20] MEDS ORDERED: METOPROLOL TARTRATE 50 MG TABLET (FP) ONE (01:51)
[2018-06-20] MEDS: METOPROLOL TARTRATE 50 MG TABLET (FP) PO SCH ×3 (02:00→21:27)
[2018-06-20] MEDS ORDERED: PIPERACILLIN/TAZOB 3.375 GM 3.375 GM in DEXTROSE 5%-WATER - 50 ML IVPB SCH (06:00)
[2018-06-20] MEDS ORDERED: PIPERACILLIN/TAZOB 3.375 GM 3.375 GM/50 ML BAG IVPB ONE (06:32)
[2018-06-20 07:47] LABS: ANION GAP 9 MMOL/L (8-16); BLOOD UREA NITROGEN 24 mg/dL (7-18); CALCIUM 8.4 mg/dL (8.5-10.1); CHLORIDE 107 mmol/L (98-107); CO2 24 mmol/L (21-32); CREATININE 0.9 mg/dL (0.55-1.3); GLUCOSE,RANDOM 248 mg/dL (74-106); PHOSPHOROUS 3.7 mg/dL (2.5-4.9); POTASSIUM 4.1 mmol/L (3.5-5.1); SODIUM 141 mmol/L (136-145)
[2018-06-20 08:07] LABS: N-TERMINAL BNP 5235.7 pg/ml (5-450)
[2018-06-20 08:08] LABS: ALBUMIN 2.3 g/dl (3.4-5.0); BILIRUBIN,DIRECT 0.3 mg/dL (0.0-0.2); BILIRUBIN,TOTAL 0.8 mg/dL (0.2-1); TOT PROT 7.7 g/dl (6.4-8.2)
[2018-06-20] MEDS: ALBUTEROL SO4 2.5/IPRATROPIUM 0.5 INH SOL 3 ML VIAL.NEB. NEB SCH ×4 (09:09→20:35)
[2018-06-20] MEDS ORDERED: METOPROLOL TARTRATE 50 MG TABLET (FP) PO SCH (10:00)
[2018-06-20 10:11] VITALS: BMI 27.8
--- NOTE | 2018-06-20 10:11 | CON.PULM ---
Consult Consult Specialty:: PULMONARY Referred by:: Dr Gunderson Reason for Consultation:: r/o aspiration pneumonia - History of Present Illness Chief Complaint: failure to thrive History of Present Illness: 78yo male with h/o HTN, DM, COPD, CKD, atrial fibrillation on anticoagulation, h /o CVA, LV diastolic dysfunction, h/o sigmoid colectomy for volvulus, h/o cholecystostomy tube placement for cholecystitis now removed who was sent from the alf for failure to thrive and decreased PO intake. Pt poor historian, unable to provide further reliable history at this time but he denies any abdominal pain but with some nausea. No shortness of breath. Has a cough with white sputum per nursing. CT A/P showing possible gall bladder abscess formation. 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 seen on prior imaging) Endocrine: Yes: Diabetes Mellitus Additional Medical History: history of dysphagia - Past Surgical History Past Surgical History: Yes: Colectomy - Alcohol/Substance Use Hx Alcohol Use: No - Smoking History Smoking history: Never smoked Have you smoked in the past 12 months: No Aproximately how many cigarettes per day: 0 If you are a former smoker, when did you quit?: 6 years ago - Social History Usual Living Arrangement: Care Home ADL: Support Services History of Recent Travel: No Home Medications - Allergies Allergies/Adverse Reactions: Allergies Allergy/AdvReac Type Severity Reaction Status Date / Time No Known Allergies Allergy Verified 06/19/18 11:45 - Home Medications Home Medications: Ambulatory Orders Acetaminophen 650 mg PO QID PRN 06/02/18 Albuterol 2.5/Ipratropium 0.5 [Duoneb -] 1 neb IH QID 06/02/18 Apixaban [Eliquis] 5 mg PO BID 06/02/18 Ascorbic Acid 500 mg PO DAILY 06/02/18 Atorvastatin Ca [Lipitor] 40 mg PO HS 06/02/18 Furosemide 20 mg PO DAILY 06/02/18 Insulin Detemir [Levemir Flextouch] 22 unit SQ HS 06/02/18 Insulin Lispro [Humalog] 0 unit SQ BID 06/02/18 Lisinopril [Prinivil -] 40 mg PO DAILY 06/02/18 Metoprolol Tartrate [Lopressor] 50 mg PO BID 06/02/18 Potassium Chloride [Potassium Chloride Oral Liquid] 20 meq PO DAILY 06/02/18 Ranitidine [Zantac -] 150 mg PO BID 06/02/18 Sennosides [Senna -] 2 tab PO HS 06/02/18 Cholecalciferol (Vitamin D3) [Vitamin D3 -] 1,000 unit PO DAILY 06/19/18 Guaifenesin [Mucinex] 600 mg PO BID 06/19/18 Zosyn 3.375GM Ivpb (Premix) 3.375 mg IVPB TID 06/19/18 Review of Systems Unable to obtain ROS, reason: poor historian Physical Exam Vital Sings: Vital Signs Temperature 98.4 F 06/20/18 08:00 Pulse Rate 96 H 06/20/18 08:00 Respiratory Rate 22 H 06/20/18 08:00 Blood Pressure 129/72 06/20/18 08:00 O2 Sat by Pulse Oximetry (%) 96 06/20/18 08:00 Constitutional: Yes: Cachectic, Other (mildly tachypneic at rest) Eyes: Yes: Conjunctiva Clear, EOM Intact HENT: Yes: Atraumatic, Normocephalic Neck: Yes: Supple, Trachea Midline Cardiovascular: Yes: Pulse Irregular Respiratory: Yes: Diminished (decreased breath sounds at the bases) ...Clubbing: No Gastrointestinal: Yes: Normal Bowel Sounds, Soft, Other (+ostomy). No: Tenderness Edema: No Neurological: Yes: Alert, Confusion Labs: CBC, BMP 06/20/18 06:30 Imaging - Results Chest X-ray: Report Reviewed, Image Reviewed (bibasilar effusions) Assessment/Plan Pericholecystic Abscess Sepsis Lactic Acidosis h/o Cholecystitis Bilateral Pleural Effusions Atelectasis Atrial Fibrillation LV Diastolic Dysfunction CKD HTN DM h/o Sigmoid Volvulus s/p sigmoid colectomy h/o CVA Dementia - antibiotics per ID - consider IR eval for abscess drainage - f/u cultures - CXR difficult to interpret but lung windows on CT A/P showing mostly effusions with compressive atelectasis, less likely pneumonia - O2 to keep SpO2 >90% - aspiration precautions - rate control - hold anticoagulation if intervention planned Thank you for this consult Arash Grant MD
[2018-06-20 10:55] LABS: BASO % 0.4 % (0-2.0); EOS % 0.3 % (0-4.5); HEMATOCRIT 33.5 % (35.4-49); HEMOGLOBIN 11.6 GM/dL (11.7-16.9); LYMPH % 18.1 % (8-40); MCH 31.9 pg (25.7-33.7); MCHC 34.6 g/dl (32.0-35.9); MEAN CELL VOLUME 92.3 fl (80-96); MEAN PLT VOLUME 9.8 fl (7.5-11.1); MONO % 7.2 % (3.8-10.2); PLATELET COUNT 267 K/MM3 (134-434); RBC 3.63 M/mm3 (4.00-5.60); RDW 15.7 % (11.9-15.9)
--- NOTE | 2018-06-20 11:36 | CONSULT ---
Consult Consult Specialty:: General Surgery Reason for Consultation:: gallbladder adhacent collection, PEG? vs. surgical gastrostomy, abdominal distension - History of Present Illness Chief Complaint: failure to thrive History of Present Illness: 78 yo male PMH atrial fibrillation (on Eliquis), hypertension, COPD, diabetes mellitus, chronic kidney disease, CVA with right sided paresis, congestive heart failure (diastolic versus systolic unknown) , dementia, Brunson's on 04/11 , cholecystitis s/p percutaneous drain tube who had a recent admission for aspiration pneumonia and NSTEMI . He was sent in by [facility] for failure to thrive and decreased oral intake. long term sent him here for evaluation for possible PEG tube placement. Patient was started on IV zosyn on 06/17. Patient is unable to provide any further history and a poor historian. Upon evaluation in the ER CT scan of abomen and pelvis demonstrated a 2 X 3 cm gallbladder abscess and ultrasound showed cholethiasis, no acute cholycystitis and sludge. He has been asked to assess. 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 seen on prior imaging) Endocrine: Yes: Diabetes Mellitus Additional Medical History: history of dysphagia - Past Surgical History Past Surgical History: Yes: Colectomy - Alcohol/Substance Use Hx Alcohol Use: No - Smoking History Smoking history: Never smoked Have you smoked in the past 12 months: No Aproximately how many cigarettes per day: 0 If you are a former smoker, when did you quit?: 6 years ago - Social History Usual Living Arrangement: Residential ADL: Support Services Place of : Other History of Recent Travel: No Home Medications - Allergies Allergies/Adverse Reactions: Allergies Allergy/AdvReac Type Severity Reaction Status Date / Time No Known Allergies Allergy Verified 06/19/18 11:45 - Home Medications Home Medications: Ambulatory Orders Acetaminophen 650 mg PO QID PRN 06/02/18 Albuterol 2.5/Ipratropium 0.5 [Duoneb -] 1 neb IH QID 06/02/18 Apixaban [Eliquis] 5 mg PO BID 06/02/18 Ascorbic Acid 500 mg PO DAILY 06/02/18 Atorvastatin Ca [Lipitor] 40 mg PO HS 06/02/18 Furosemide 20 mg PO DAILY 06/02/18 Insulin Detemir [Levemir Flextouch] 22 unit SQ HS 06/02/18 Insulin Lispro [Humalog] 0 unit SQ BID 06/02/18 Lisinopril [Prinivil -] 40 mg PO DAILY 06/02/18 Metoprolol Tartrate [Lopressor] 50 mg PO BID 06/02/18 Potassium Chloride [Potassium Chloride Oral Liquid] 20 meq PO DAILY 06/02/18 Ranitidine [Zantac -] 150 mg PO BID 06/02/18 Sennosides [Senna -] 2 tab PO HS 06/02/18 Cholecalciferol (Vitamin D3) [Vitamin D3 -] 1,000 unit PO DAILY 06/19/18 Guaifenesin [Mucinex] 600 mg PO BID 06/19/18 Zosyn 3.375GM Ivpb (Premix) 3.375 mg IVPB TID 06/19/18 Review of Systems - Review of Systems Constitutional: reports: Loss of Appetite, Unintentional Wgt. Loss. denies: Chills, Fever Eyes: denies: Blind Spots, Recent Change in Vision HENT: denies: Difficult Swallowing, Throat Pain Neck: denies: Decreased ROM, Pain on Movement, Tenderness Cardiovascular: denies: Chest Pain, Palpitations Respiratory: denies: Cough, SOB Gastrointestinal: reports: Bloating. denies: Abdominal Pain, Constipation, Diarrhea, Vomiting Genitourinary: denies: Burning, Discharge, Dysuria Musculoskeletal: reports: Muscle Weakness. denies: Back Pain, Extremity Pain, Joint Swelling, Muscle Pain, Muscle Cramps Integumentary: denies: Eczema, Erythema Neurological: reports: Confusion, Pre-Existing Deficit. denies: Seizure, Syncope, Tremors Endocrine: denies: Intolerance to Cold, Intolerance to Heat, Unexplained Weight Gain, Unexplained Weight Loss Hematology/Lymphatic: denies: Easily Bruised, Excessive Bleeding Psychiatric: denies: Anxiety, Depression Physical Exam Vital Signs: Vital Signs Temperature 98.4 F 06/20/18 08:00 Pulse Rate 96 H 06/20/18 08:00 Respiratory Rate 22 H 06/20/18 08:00 Blood Pressure 129/72 06/20/18 08:00 O2 Sat by Pulse Oximetry (%) 96 06/20/18 08:00 Constitutional: Yes: No Distress, Calm, Cachectic, Thin Eyes: Yes: Conjunctiva Clear, EOM Intact, Other (arcus senilus). No: PERRL, Ptosis HENT: Yes: Atraumatic, Normocephalic, Drooling, Other (facial asymmetery) Neck: Yes: Supple, Trachea Midline Cardiovascular: Yes: Regular Rate and Rhythm, S1, S2 Respiratory: Yes: Regular, CTA Bilaterally Gastrointestinal: Yes: Normal Bowel Sounds, Soft, Distention (mild distension left side abdomen). No: Tenderness, Tenderness, Epigastrium, Tenderness, Rebound ...Rectal Exam: Yes: Deferred Renal/: No: CVA Tenderness - Left, CVA Tenderness - Right Breast(s): No: Discharge from Nipple, Mass, Nipple Inversion Musculoskeletal: No: Muscle Pain, Muscle Weakness Extremities: No: Cool, Cyanosis Edema: No Peripheral Pulses WNL: Yes Integumentary: No: Jaundice, Pressure Ulcer, Rash Wound/Incision: Yes: Clean/Dry, Other (well healed) Neurological: Yes: Alert, Confusion. No: Oriented Psychiatric: Yes: Alert. No: Oriented Labs: CBC, BMP 06/20/18 05:30 06/20/18 06:30 Imaging - Results Cat Scan: Report Reviewed (multiploculated pericholecystic collection,), Image Reviewed Problem List - Problems (1) Abnormal abdominal CT scan Assessment/Plan: 78yo female MMP Gall bladder appears to be a loculated collection failure to thrive, notable weight loss, reported poor oral intake. A peg may help supplement his kumar intake, this should be discussed with the family. GI may be able to oblige in the absense of previous colonic distension. CT shows stomach very anterior in the upper apbdomen for a clear window for PEG. As an alternative we are happy to provide surgical gastrostomy. No reports of abdominal pain, colostomy is functional. No acute surgical intervention is needed at this time Correct INR <1.5 Consider IR for drainage of GB if suspected as septic source will follow Thank you for the opportunity to participate in the care of this patient. Code(s): R93.5 - ABN FINDINGS ON DX IMAGING OF ABD REGIONS, INC RETROPERITON (2) Afib Code(s): I48.91 - UNSPECIFIED ATRIAL FIBRILLATION Qualifiers: Atrial fibrillation type: chronic Qualified Code(s): I48.2 - Chronic atrial fibrillation (3) COPD (chronic obstructive pulmonary disease) Code(s): J44.9 - CHRONIC OBSTRUCTIVE PULMONARY DISEASE, UNSPECIFIED Qualifiers: Emphysema type: unspecified (4) DVT prophylaxis Code(s): MJT5600 - (5) H/O: CVA (cerebrovascular accident) Code(s): Z86.73 - PRSNL HX OF TIA (TIA), AND CEREB INFRC W/O RESID DEFICITS (6) NSTEMI (non-ST elevated myocardial infarction) Code(s): I21.4 - NON-ST ELEVATION (NSTEMI) MYOCARDIAL INFARCTION (7) Prolonged Q-T interval on ECG Code(s): R94.31 - ABNORMAL ELECTROCARDIOGRAM [ECG] [EKG]
[2018-06-20] MEDS: D5-1/2NS+20 MEQ KCL - 20 MEQ/1,000 ML INFUS.BAG IV SCH ×2 (11:58→23:30)
[2018-06-20] MEDS: CHOLECALCIFEROL (VITAMIN D3) 1,000 UNIT TABLET (FP) PO SCH (12:02)
[2018-06-20] MEDS: FUROSEMIDE 20 MG TABLET (FP) PO SCH (12:02)
[2018-06-20] MEDS: LISINOPRIL 20 MG TABLET (FP) PO SCH (12:02)
[2018-06-20] MEDS: RANITIDINE HCL 150 MG TABLET (FP) PO SCH ×2 (12:02→21:27)
[2018-06-20] MEDS: ASCORBIC ACID 500 MG TABLET (FP) PO SCH (12:02)
--- NOTE | 2018-06-20 12:33 | PN ---
Progress Note (short form) - Note Progress Note: Events noted [place] for "failure to thrive" He was recently here for chest pain, pneumonia- had a fair appetite at that time. Pt is drowsy today, more sleepy than his baseline He opens his eyes to name Vital Signs - 24 hr 06/19/18 06/19/18 06/19/18 14:33 15:37 16:48 Temperature Pulse Rate 55 L Pulse Rate [ 112 H 120 H Apical] Respiratory 16 20 Rate Blood Pressure Blood Pressure 162/80 178/100 H [Right Arm] O2 Sat by Pulse 92 L 97 94 L Oximetry (%) 06/19/18 06/19/18 06/20/18 18:48 21:48 04:38 Temperature 98.7 F Pulse Rate Pulse Rate [ 106 H 112 H Apical] Respiratory 22 H 20 20 Rate Blood Pressure Blood Pressure 163/105 H 140/100 [Right Arm] O2 Sat by Pulse 94 L 94 L 96 Oximetry (%) 06/20/18 06/20/18 06/20/18 05:13 08:00 12:24 Temperature 98.9 F 98.4 F 98.1 F Pulse Rate 96 H 85 Pulse Rate [ 100 H Apical] Respiratory 24 H 22 H 24 H Rate Blood Pressure 129/72 138/76 Blood Pressure 141/82 [Right Arm] O2 Sat by Pulse 91 L 96 Oximetry (%) Current Medications Generic Name Dose Route Start Last Admin Trade Name Freq PRN Reason Stop Dose Admin Albuterol/Ipratropium 1 amp 06/20/18 08:00 06/20/18 12:34 Duoneb - NEB 1 amp RQID FLORIN Administration Ascorbic Acid 500 mg 06/20/18 10:00 06/20/18 12:02 Vitamin C - PO Not Given DAILY FLORIN Cholecalciferol 1,000 unit 06/20/18 10:00 06/20/18 12:02 Vitamin D3 - PO Not Given DAILY FLORIN Furosemide 20 mg 06/20/18 10:00 06/20/18 12:02 Lasix - PO Not Given DAILY FLORIN Potassium Chloride/Dextrose/Sod Cl 20 meq in 1,000 mls @ 83 mls/hr 06/20/18 10 :15 06/20/18 11:58 D5-1/2ns+20 Meq Kcl - IV 83 mls/hr ASDIR FLORIN Administration Lisinopril 40 mg 06/20/18 10:00 06/20/18 12:02 Prinivil PO Not Given DAILY [facility] Metoprolol Tartrate 50 mg 06/20/18 01:50 06/20/18 12:02 Lopressor - PO Not Given BID [facility] Morphine Sulfate 1 mg 06/20/18 12:55 Morphine Sulfate IVPUSH Q6H PRN PAIN LEVEL 6-10 Non-Formulary Medication 3.375 mg 06/20/18 06:00 Zosyn 3.375gm Ivpb (Premix) IVPB TID [facility] Ranitidine HCl 150 mg 06/20/18 10:00 06/20/18 12:02 Zantac - PO Not Given BID [facility] Laboratory Results - last 24 hr 06/19/18 06/19/18 06/19/18 12:42 16:00 16:00 WBC RBC Hgb Hct MCV MCH MCHC RDW Plt Count MPV Absolute Neuts (auto) Neutrophils % Lymphocytes % Monocytes % Eosinophils % Basophils % Nucleated RBC % Sodium Potassium Chloride Carbon Dioxide Anion Gap BUN Creatinine Creat Clearance w eGFR Random Glucose Lactic Acid 3.2 H* Calcium Phosphorus Magnesium Total Bilirubin Direct Bilirubin AST ALT Alkaline Phosphatase B-Natriuretic Peptide Total Protein Albumin TSH Urine Color Yellow Urine Appearance Slcloudy Urine pH 5.0 Ur Specific [place] 1.025 Urine Protein 1+ H Urine Glucose (UA) Negative Urine Ketones Negative Urine Blood 2+ H Urine Nitrite Negative Urine Bilirubin Negative Urine Urobilinogen Negative Ur Leukocyte Esterase Negative Urine WBC (Auto) 2 Urine RBC (Auto) 5 Urine Bacteria Rare Blood Type A POSITIVE Antibody Screen Negative 06/19/18 06/20/18 06/20/18 21:23 05:30 06:30 WBC 10.0 RBC 3.63 L Hgb 11.6 L Hct 33.5 L MCV 92.3 MCH 31.9 MCHC 34.6 RDW 15.7 Plt Count 267 MPV 9.8 Absolute Neuts (auto) 7.4 Neutrophils % 74.0 Lymphocytes % 18.1 D Monocytes % 7.2 Eosinophils % 0.3 Basophils % 0.4 Nucleated RBC % 0 Sodium 141 Potassium 4.1 Chloride 107 Carbon Dioxide 24 Anion Gap 9 BUN 24 H Creatinine 0.9 Creat Clearance w eGFR > 60 Random Glucose 248 H Lactic Acid 3.5 H* Calcium 8.4 L Phosphorus 3.7 Magnesium 2.0 Total Bilirubin Direct Bilirubin AST ALT Alkaline Phosphatase B-Natriuretic Peptide Total Protein Albumin TSH Urine Color Urine Appearance Urine pH Ur Specific [place] Urine Protein Urine Glucose (UA) Urine Ketones Urine Blood Urine Nitrite Urine Bilirubin Urine Urobilinogen Ur Leukocyte Esterase Urine WBC (Auto) Urine RBC (Auto) Urine Bacteria Blood Type Antibody Screen 06/20/18 06/20/18 06:30 06:30 WBC RBC Hgb Hct MCV MCH MCHC RDW Plt Count MPV Absolute Neuts (auto) Neutrophils % Lymphocytes % Monocytes % Eosinophils % Basophils % Nucleated RBC % Sodium Potassium Chloride Carbon Dioxide Anion Gap BUN Creatinine Creat Clearance w eGFR Random Glucose Lactic Acid Calcium Phosphorus Magnesium Total Bilirubin 0.8 Direct Bilirubin 0.3 H AST 406 H ALT 461 H Alkaline Phosphatase 156 H B-Natriuretic Peptide 5235.7 H Total Protein 7.7 Albumin 2.3 L TSH 2.68 D Urine Color Urine Appearance Urine pH Ur Specific [place] Urine Protein Urine Glucose (UA) Urine Ketones Urine Blood Urine Nitrite Urine Bilirubin Urine Urobilinogen Ur Leukocyte Esterase Urine WBC (Auto) Urine RBC (Auto) Urine Bacteria Blood Type Antibody Screen No pallor S1 S2 irregular Lungs decreased Abd- soft, colostomy+, NT , ND No edema PLAN sepsis Gallbladder Abscess Weight loss elevated LT -- spoke with surgeon, will consult IR to drain Gallbladder abscess -- IV antibiotics -- NPO -- pain control if needed-- currently not in pain -- holding eliquis in anticipation for procedures Problem List - Problems (1) Afib Code(s): I48.91 - UNSPECIFIED ATRIAL FIBRILLATION Qualifiers: Atrial fibrillation type: chronic Qualified Code(s): I48.2 - Chronic atrial fibrillation (2) Biliary sepsis Code(s): K83.09 - OTHER CHOLANGITIS (3) COPD (chronic obstructive pulmonary disease) Code(s): J44.9 - CHRONIC OBSTRUCTIVE PULMONARY DISEASE, UNSPECIFIED Qualifiers: Emphysema type: unspecified (4) Diabetes Code(s): E11.9 - TYPE 2 DIABETES MELLITUS WITHOUT COMPLICATIONS Qualifiers: Diabetes mellitus type: type 2 (5) Elevated liver enzymes Code(s): R74.8 - ABNORMAL LEVELS OF OTHER SERUM ENZYMES
--- NOTE | 2018-06-20 14:35 | PN ---
Progress Note (short form) - Note Progress Note: ID consult dictated imp/reccd 78 you man PMH sigmoid volvulus s/p hemicolectomy, he is s/p percutaneous drainage of a RUQ collectin in 04/11, most recently he was admitted with fever and right sided infiltrates and treated with zosyn and discharged 06/08 on augmentin he was restarted on zosyn on 06/18- unclear why sent to ED 06/19 with abnormal lfts repeat imaging of the abd/pelvis shows a RUQ abscess, sonogram with gallstones no fevers RUQ gall bladder abscess abnormal LFTs agree with surgery eval/IR drainage continue vancomycin and zosyn Problem List - Problems (1) Gallbladder abscess Code(s): K81.0 - ACUTE CHOLECYSTITIS (2) Abnormal LFTs Code(s): R94.5 - ABNORMAL RESULTS OF LIVER FUNCTION STUDIES
[2018-06-20] MEDS: ZOSYN IVPB SCH ×2 (15:13→15:14)
--- NOTE | 2018-06-20 16:08 | CONS ---
DATE OF CONSULTATION: 06/20/2018 INFECTIOUS DISEASE CONSULTATION REQUESTED BY: Andrea Gunderson MD DICTATED BY: Farhat Garcia MD This is a 78-year-old man who was admitted from the skilled nursing. He has an extensive past medical history and multiple recent admissions. He was in the hospital from February 28 to April 06 when he had a sigmoid volvulus. He ultimately required surgery, and he had a hemicolectomy. He was discharged on April 06. He was readmitted 1 week later with a right upper quadrant fluid collection. He required percutaneous drainage of the collection. Most recently he was admitted June 02 to June 08 at which time he was admitted with fever and found to have a right upper lobe and right lower lobe infiltrate. He was discharged on Augmentin, and he is now readmitted for apparently poor appetite. Of note, he had markedly abnormal liver function test on admission. No fevers. He had imaging of his gallbladder done which revealed gallstones. He had a CAT scan done which suggested an abscess. I am asked to see him for antibiotic recommendations. He has had no fever at all throughout this process, and he is quite alert. PAST MEDICAL HISTORY: Notable for CVA with right hemiparesis. He has a history of heart failure, hypertension, hyperlipidemia, COPD, diabetes, dysphagia, and atrial fibrillation. SURGICAL HISTORY: Notable for hemicolectomy, he has had a percutaneous cholecystostomy as well. IMAGING STUDIES: His most recent imaging study, he had an abdomen and pelvis done last night in the emergency room that was notable for a 3 x 2.3 cm outpouching of the gallbladder wall suggestive of abscess. He also was noted to have small bilateral effusions. ALLERGIES: He has no known drug allergies. CURRENT MEDICATIONS: From the skilled nursing include Zosyn which was started on June 19, unclear why; Mucinex; vitamin D; senna; Zantac; potassium; Lopressor; Prinivil; insulin; furosemide; Lipitor; vitamin C; Eliquis; and DuoNeb. FAMILY HISTORY: Noncontributory. SOCIAL HISTORY: He has been residing at the skilled nursing for quite a while now. REVIEW OF SYSTEMS: Not available. The patient is unable to give any history. PHYSICAL EXAMINATION: General: He is awake and alert. He is able to nod no when asked if he has any pain. Vital Signs: Temperature is 98.1, pulse is 85, blood pressure is 138/76, respiratory rate is 20. He is saturating 96% on 2 L. He looks comfortable. HEENT: He is normocephalic. Eyes are anicteric. Lungs: Diminished breath sounds at the bases. Heart: Irregular. Abdomen: Soft, nontender. He has a colostomy bag in place. Extremities: Without edema. He has a right hemiparesis. LABORATORY DATA: His white count is 10,000, hemoglobin 11.6, platelets are 267. BUN 25 and creatinine 1.1 on admission. Lactic acid of 3.5. His AST was 1009 with ALT of 649, alkaline phosphatase of 162. Today have improved to AST 406, ALT 461, and alkaline phosphatase of 156. Urinalysis is negative. Cultures are pending. IMAGING: As previously stated. IN SUMMARY: This is a 78-year-old man admitted with a right upper quadrant gallbladder abscess, abnormal liver function tests in the setting of prior sigmoid volvulus and right hemicolectomy and recent pneumonia. I would agree with Surgical evaluation who has recommended IR drainage. Would continue vancomycin and Zosyn. His liver function tests appear to be improving, and clinically he appears improved with down trending liver function tests and lack of fever. Hopefully, the fluid will get sent for culture when it is drained at which time we will be able to make more recommendations. FARHAT GARCIA M.D. [id number]
[2018-06-20] MEDS ORDERED: PIPERACILLIN/TAZOBACTAM 4.5 GM VIAL IVPB ONE ×2 (18:04→23:21)
[2018-06-20] MEDS ORDERED: DEXTROSE 5%-WATER 100 ML IVPB ONE ×2 (18:04→23:22)
[2018-06-20] MEDS: PIPERACILLIN/TAZOB 4.5 GM 4.5 GM in DEXTROSE 5%-WATER 100 ML IVPB SCH (18:30)
--- NOTE | 2018-06-20 20:30 | CONS ---
DATE OF CONSULTATION: DATE OF DICTATION: 06/20/2018 HISTORY: The patient is a 78-year-old male with a past medical history of atrial fibrillation on Eliquis, hypertension, COPD, diabetes, chronic kidney disease, CVA with right-sided paresthesias, congestive heart failure, dementia, colectomy in 2018, cholecystitis status post a percutaneous drain tube, recent admission for aspiration pneumonia, and an NSTEMI. [facility] with complaints of failure to thrive and decreased p.o. intake. He is a poor historian and does not offer much history. Therefore, the HPI is limited. PAST MEDICAL HISTORY: As listed in the HPI. PAST SURGICAL HISTORY: As listed in the HPI. SOCIAL HISTORY: Unable to obtain. FAMILY HISTORY: Unable to obtain. ALLERGIES: No known drug allergies. HOME MEDICATIONS: Include acetaminophen, nebulizers, Eliquis, vitamin C, Lipitor, furosemide, insulin, lisinopril, metoprolol, potassium ranitidine, , cholecalciferol, Mucinex, Zosyn. REVIEW OF SYSTEMS: Unable to obtain secondary to his dementia. PHYSICAL EXAMINATION: Vital Signs: Temperature 98, pulse 100, blood pressure 140/92, respiratory rate 20, pulse oximetry 96% on 2 L. General: In no acute distress. HEENT: Anicteric sclerae. Cardiovascular: S1, S2. Regular rate and rhythm. Lungs: Bilaterally clear to auscultation. Abdomen: Soft and nontender. Extremities: No edema. DIAGNOSTIC DATA: Labs: White blood cell count on admission 10.8, currently 10, hemoglobin 11.6, hematocrit 33, MCV 92, platelet count 267, INR 2.25. Sodium 141, potassium 4.1, BUN 24, creatinine 0.9, glucose 248, lactic acid 3.5 not repeated yesterday, total bilirubin 0.8, AST 406, ALT 461, alkaline phosphatase 156. BNP 5235, albumin 2.3, TSH 2.68. Cultures are pending. So far have been negative on preliminary. He had an abdomen and pelvis CT scan on the , which revealed interval development of a 3 cm x 2.3 cm of out patching along the ventral gallbladder wall suggestive of an abscess. The gallbladder appears slightly overdistended since the previous study and also with a moderate right-sided and [id number] left-sided pleural effusion. There is some urinary bladder wall thickening, questionable cystitis. Liver, spleen, pancreas, adrenal glands, and kidneys no discrete abnormality. IMPRESSION: 1. Decreased p.o. intake and failure to thrive most likely secondary to his underlying infectious etiology, namely gallbladder abscess. 2. Transaminitis hepatocellular pattern most likely multifactorial. Contributing factors would be congestive hepatopathy, underlying infection. Chronic, inherited liver disease will need to be excluded although are low on the differential diagnosis. 3. Evaluation for gastrostomy tube, again, most likely secondary to his dementia and underlying infectious process. Would hold off on any invasive procedures or gastrostomy tube placement at this time. RECOMMENDATION: Surgery evaluation for gallbladder wall abscess. Also continue with antibiotics. ID consultation. Questionably may need to drain the abscess. Would obtain a swallow evaluation and also obtain serologies for chronic liver disease including a viral hepatitis panel, acetaminophen level, EVELYNE, SMA, alpha-1 antitrypsin, and an LDH. This patient will be followed by the GI service. DO SIDDHARTHA CAREY/[id number]
[2018-06-20] MEDS ORDERED: VANCOMYCIN 1 GM in NS (PRE-DOCKED) 1,000 MG/250 ML IVPB SCH (23:15)
[2018-06-20] MEDS ORDERED: VANCOMYCIN 1,000 MG in DEXTROSE 5%-WATER - 250 ML IVPB SCH (23:15)
[2018-06-20] MEDS: VANCOMYCIN 1 GM in D5W (PRE-DOCKED) 1,000 MG/250 ML IVPB SCH (23:25)
[2018-06-21] MEDS: PIPERACILLIN/TAZOB 4.5 GM 4.5 GM in DEXTROSE 5%-WATER 100 ML IVPB SCH ×3 (02:23→19:34)
[2018-06-21 06:09] LABS: HEMATOCRIT 30.9 % (35.4-49); HEMOGLOBIN 10.7 GM/dL (11.7-16.9); MCH 31.2 pg (25.7-33.7); MCHC 34.8 g/dl (32.0-35.9); MEAN CELL VOLUME 89.6 fl (80-96); MEAN PLT VOLUME 9.3 fl (7.5-11.1); PLATELET COUNT 245 K/MM3 (134-434); RBC 3.44 M/mm3 (4.00-5.60); RDW 15.9 % (11.9-15.9); WHITE BLOOD COUNT 9.8 K/mm3 (4.0-10.0)
[2018-06-21 06:38] LABS: ALBUMIN 2.2 g/dl (3.4-5.0); ALK PHOS 142 U/L (45-117); ANION GAP 8 MMOL/L (8-16); BILIRUBIN,TOTAL 0.9 mg/dL (0.2-1); BLOOD UREA NITROGEN 21 mg/dL (7-18); CALCIUM 8.2 mg/dL (8.5-10.1); CHLORIDE 107 mmol/L (98-107); CO2 28 mmol/L (21-32); CREATININE 1.2 mg/dL (0.55-1.3); POTASSIUM 4.1 mmol/L (3.5-5.1); SGOT/AST 173 U/L (15-37); SGPT/ALT 293 U/L (13-61); SODIUM 142 mmol/L (136-145); TOT PROT 7.5 g/dl (6.4-8.2)
[2018-06-21 06:47] LABS: GLUCOSE,RANDOM 373 mg/dL (74-106)
[2018-06-21] MEDS: INSULIN SLIDING SCALE (NOVOLOG) 1 VIAL SQ SCH ×4 (06:49→21:33)
[2018-06-21] MEDS: ALBUTEROL SO4 2.5/IPRATROPIUM 0.5 INH SOL 3 ML VIAL.NEB. NEB SCH ×4 (09:20→20:51)
[2018-06-21] MEDS ORDERED: PHYTONADIONE 10 MG/1 ML AMP IVPB ONE (10:03)
[2018-06-21] MEDS ORDERED: PIPERACILLIN/TAZOBACTAM 4.5 GM VIAL IVPB ONE ×2 (10:06→17:47)
[2018-06-21] MEDS ORDERED: DEXTROSE 5%-WATER 100 ML IVPB ONE ×2 (10:07→17:48)
[2018-06-21] MEDS: METOPROLOL TARTRATE 50 MG TABLET (FP) PO SCH ×2 (10:15→21:12)
[2018-06-21] MEDS: LISINOPRIL 20 MG TABLET (FP) PO SCH (10:15)
[2018-06-21] MEDS: RANITIDINE HCL 150 MG TABLET (FP) PO SCH ×2 (10:15→21:12)
[2018-06-21] MEDS: FUROSEMIDE 20 MG TABLET (FP) PO SCH (10:15)
[2018-06-21] MEDS: ASCORBIC ACID 500 MG TABLET (FP) PO SCH (10:15)
[2018-06-21] MEDS: CHOLECALCIFEROL (VITAMIN D3) 1,000 UNIT TABLET (FP) PO SCH (10:15)
[2018-06-21] MEDS: MORPHINE SULFATE 2 MG/ML VIAL IVPUSH PRN ×2 (11:07→17:00)
--- NOTE | 2018-06-21 11:23 | PN ---
GI Progress Note Subjective: No acute events Nurse describes Mr. Quinonez complained of pain in abdomen after getting medications - Objective Vital Signs: Vital Signs Temperature 98.4 F 06/21/18 09:00 Pulse Rate 98 H 06/21/18 09:00 Respiratory Rate 18 06/21/18 09:00 Blood Pressure 152/90 06/21/18 09:00 O2 Sat by Pulse Oximetry (%) 99 06/20/18 21:00 Constitutional: Calm Eyes: No: Sclera Icterus Cardiovascular: Yes: Tachycardia, Pulse Irregular Respiratory: Yes: Diminished (at bases bilaterally with poor insp effort) Gastrointestinal Inspection: Yes: Scars (long midline vertical surgical scar. + left sided colostomy). No: Distention ...Auscultate: Yes: Normoactive Bowel Sounds ...Palpate: Yes: Soft, Tenderness (Patient nodded yes when asked if their was tenderness elicited upon palpation in the RUQ). No: Hepatomegaly, Splenomegaly ...Percussion: No: Tympanitic Edema: No (No LE edema) Labs: CBC, BMP 06/21/18 06:00 06/21/18 06:00 INR, PTT INR 2.25 (0.83-1.09) H 06/19/18 12:42 Problem List - Problems (1) Gallbladder abscess Assessment/Plan: With improving LFTs On Zosyn and followed by ID Plan is for IR drainage. Surgery is also following Deferring PEG in setting of active ongoing infection Avoid hepatotoxic agents Code(s): K81.0 - ACUTE CHOLECYSTITIS
--- NOTE | 2018-06-21 12:03 | PN ---
Progress Note (short form) - Note Progress Note: Pt had pain all over when he ate He moans when I palpated the right upper quadrant Vital Signs - 24 hr 06/20/18 06/20/18 06/21/18 21:00 22:00 02:00 Temperature 99.6 F 98.2 F Pulse Rate 115 H 95 H Respiratory 20 20 Rate Blood Pressure 127/74 143/102 H O2 Sat by Pulse 99 Oximetry (%) 06/21/18 06/21/18 06/21/18 02:29 06:00 09:00 Temperature 98.3 F 98.4 F Pulse Rate 103 H 94 H 98 H Respiratory 18 18 18 Rate Blood Pressure 153/86 157/96 152/90 O2 Sat by Pulse 98 Oximetry (%) Current Medications Generic Name Dose Route Start Last Admin Trade Name Freq PRN Reason Stop Dose Admin Albuterol/Ipratropium 1 amp 06/20/18 08:00 06/21/18 16:40 Duoneb - NEB 1 amp RQID FLORIN Administration Ascorbic Acid 500 mg 06/20/18 10:00 06/21/18 10:15 Vitamin C - PO 500 mg DAILY FLORIN Administration Cholecalciferol 1,000 unit 06/20/18 10:00 06/21/18 10:15 Vitamin D3 - PO 1,000 unit DAILY FLORIN Administration Furosemide 20 mg 06/20/18 10:00 06/21/18 10:15 Lasix - PO 20 mg DAILY FLORIN Administration Potassium Chloride/Dextrose/Sod Cl 20 meq in 1,000 mls @ 83 mls/hr 06/20/18 10 :15 06/21/18 15:05 D5-1/2ns+20 Meq Kcl - IV 83 mls/hr ASDIR FLORIN Administration Piperacillin Sod/Tazobactam 100 mls @ 200 mls/hr 06/20/18 18:00 06/21/18 10: 16 Sod 4.5 gm/ Dextrose IVPB 200 mls/hr Q8H-IV FLORIN Administration Protocol Insulin Aspart 1 vial 06/21/18 07:00 06/21/18 17:05 Novolog Vial Sliding Scale - SQ 4 units ACHS FLORIN Administration Protocol Lisinopril 40 mg 06/20/18 10:00 06/21/18 10:15 Prinivil PO 40 mg DAILY FLORIN Administration Metoprolol Tartrate 50 mg 06/20/18 01:50 06/21/18 10:15 Lopressor - PO 50 mg BID FLORIN Administration Morphine Sulfate 1 mg 06/20/18 12:55 06/21/18 17:00 Morphine Sulfate IVPUSH 1 mg Q6H PRN Administration PAIN LEVEL 6-10 Ranitidine HCl 150 mg 06/20/18 10:00 06/21/18 10:15 Zantac - PO 150 mg BID FLORIN Administration Vancomycin HCl 1,000 mg 06/20/18 23:15 06/20/18 23:25 Vancomycin (Pre-Docked) IVPB 1,000 mg DAILY@2300 FLORIN Administration Laboratory Results - last 24 hr 06/19/18 06/21/18 06/21/18 12:42 06:00 06:00 WBC 9.8 RBC 3.44 L Hgb 10.7 L Hct 30.9 L MCV 89.6 MCH 31.2 MCHC 34.8 RDW 15.9 Plt Count 245 MPV 9.3 PT with INR INR Sodium 142 Potassium 4.1 Chloride 107 Carbon Dioxide 28 Anion Gap 8 BUN 21 H Creatinine 1.2 Creat Clearance w eGFR 58.86 POC Glucometer Random Glucose 373 H* Calcium 8.2 L Total Bilirubin 0.9 AST 173 H ALT 293 H Alkaline Phosphatase 142 H Total Protein 7.5 Albumin 2.2 L Blood Type A POSITIVE Antibody Screen Negative 06/21/18 06/21/18 06/21/18 11:27 13:05 17:04 WBC RBC Hgb Hct MCV MCH MCHC RDW Plt Count MPV PT with INR 21.50 H INR 1.81 H Sodium Potassium Chloride Carbon Dioxide Anion Gap BUN Creatinine Creat Clearance w eGFR POC Glucometer 314 249 Random Glucose Calcium Total Bilirubin AST ALT Alkaline Phosphatase Total Protein Albumin Blood Type Antibody Screen S1 S2 irregular Lungs decreased Abd- soft, colostomy+, NT , ND No edema PLAN sepsis Gallbladder Abscess Weight loss elevated LFT -- iv fluids -- received Vit K and will be getting FFP to reverse INR -- spoke with daughter -- IV antibiotics -- for IR to drain gallbladder abscess -- pain control if needed-- currently not in pain -- holding eliquis in anticipation for procedures Problem List - Problems (1) Afib Code(s): I48.91 - UNSPECIFIED ATRIAL FIBRILLATION Qualifiers: Atrial fibrillation type: chronic Qualified Code(s): I48.2 - Chronic atrial fibrillation (2) Biliary sepsis Code(s): K83.09 - OTHER CHOLANGITIS (3) COPD (chronic obstructive pulmonary disease) Code(s): J44.9 - CHRONIC OBSTRUCTIVE PULMONARY DISEASE, UNSPECIFIED Qualifiers: Emphysema type: unspecified (4) Diabetes Code(s): E11.9 - TYPE 2 DIABETES MELLITUS WITHOUT COMPLICATIONS Qualifiers: Diabetes mellitus type: type 2 (5) Elevated liver enzymes Code(s): R74.8 - ABNORMAL LEVELS OF OTHER SERUM ENZYMES
[2018-06-21 14:06] LABS: INR 1.81 (0.83-1.09); PROTHROMBIN TIME (PATIENT) 21.5 SEC (9.7-13.0)
--- NOTE | 2018-06-21 14:23 | PN ---
Progress Note (short form) - Note Progress Note: nurse reports he develped abdominal pain whenhe tried to eat Vital Signs Period Temp Pulse Resp BP Sys/Pham Pulse Ox Last 24 Hr 98.2 F-99.6 F 94-115 18-22 127-157/74-102 98-99 cor-rrr lungs decreased bs at bases abd soft, +ostomy, nt ext no edema CBC, BMP 06/21/18 06:00 06/21/18 06:00 Microbiology 06/19/18 16:00 Urine - Urine - Catheterized Urine Culture - Final NO GROWTH OBTAINED 06/19/18 16:00 Blood - Peripheral Venous Blood Culture - Preliminary NO GROWTH OBTAINED AFTER 24 HOURS, INCUBATION TO CONTINUE FOR 4 DAYS. 06/19/18 16:00 Blood - Peripheral Venous Blood Culture - Preliminary NO GROWTH OBTAINED AFTER 24 HOURS, INCUBATION TO CONTINUE FOR 4 DAYS. Laboratory Tests 06/20/18 06/21/18 06:30 06:00 AST 406 H 173 H ALT 461 H 293 H Alkaline Phosphatase 156 H 142 H a/p LTS improving for drainage of GB abscess when INR corrects abdominal pain- RUQ gall bladder abscess abnormal LFTs continue vancomycin and zosyn history hemicolectomy secondry to volvolus Problem List - Problems (1) Gallbladder abscess Code(s): K81.0 - ACUTE CHOLECYSTITIS (2) Abnormal LFTs Code(s): R94.5 - ABNORMAL RESULTS OF LIVER FUNCTION STUDIES
--- NOTE | 2018-06-21 14:41 | PN ---
Progress Note, Physician History of Present Illness: pulmonary awake,no distress,-sob - Current Medication List Current Medications: Active Medications Albuterol/Ipratropium (Duoneb -) 1 amp NEB RQID [facility] Last Admin: 06/21/18 12:30 Dose: 1 amp Ascorbic Acid (Vitamin C -) 500 mg PO DAILY [facility] Last Admin: 06/21/18 10:15 Dose: 500 mg Cholecalciferol (Vitamin D3 -) 1,000 unit PO DAILY [facility] Last Admin: 06/21/18 10:15 Dose: 1,000 unit Furosemide (Lasix -) 20 mg PO DAILY [facility] Last Admin: 06/21/18 10:15 Dose: 20 mg Potassium Chloride/Dextrose/Sod Cl (D5-1/2ns+20 Meq Kcl -) 20 meq in 1,000 mls @ 83 mls/hr IV ASDIR [facility] Last Admin: 06/20/18 23:30 Dose: 83 mls/hr Piperacillin Sod/Tazobactam (Sod 4.5 gm/ Dextrose) 100 mls @ 200 mls/hr IVPB Q8H-IV [facility]; Protocol Last Admin: 06/21/18 10:16 Dose: 200 mls/hr Insulin Aspart (Novolog Vial Sliding Scale -) 1 vial SQ ACHS [facility]; Protocol Last Admin: 06/21/18 12:56 Dose: 8 units Lisinopril (Prinivil) 40 mg PO DAILY [facility] Last Admin: 06/21/18 10:15 Dose: 40 mg Metoprolol Tartrate (Lopressor -) 50 mg PO BID [facility] Last Admin: 06/21/18 10:15 Dose: 50 mg Morphine Sulfate (Morphine Sulfate) 1 mg IVPUSH Q6H PRN PRN Reason: PAIN LEVEL 6-10 Last Admin: 06/21/18 11:07 Dose: 1 mg Ranitidine HCl (Zantac -) 150 mg PO BID [facility] Last Admin: 06/21/18 10:15 Dose: 150 mg Vancomycin HCl (Vancomycin (Pre-Docked)) 1,000 mg IVPB DAILY@2300 [facility] Last Admin: 06/20/18 23:25 Dose: 1,000 mg - Objective Vital Signs: Vital Signs Temperature 98.4 F 06/21/18 09:00 Pulse Rate 98 H 06/21/18 09:00 Respiratory Rate 18 06/21/18 09:00 Blood Pressure 152/90 06/21/18 09:00 O2 Sat by Pulse Oximetry (%) 98 06/21/18 09:00 Constitutional: Yes: Well Nourished, Calm Eyes: Yes: WNL HENT: Yes: WNL Neck: Yes: WNL Cardiovascular: Yes: Pulse Irregular, S1, S2 Respiratory: Yes: Other (poor inspiratory effort) Gastrointestinal: Yes: Normal Bowel Sounds, Soft, Other (ostomy) Extremities: Yes: WNL Edema: No Labs: CBC, BMP 06/21/18 06:00 06/21/18 06:00 INR, PTT INR 1.81 (0.83-1.09) H 06/21/18 13:05 Problem List - Problems (1) Afib Code(s): I48.91 - UNSPECIFIED ATRIAL FIBRILLATION (2) Gallbladder abscess Code(s): K81.0 - ACUTE CHOLECYSTITIS (3) Abdominal pain Code(s): R10.9 - UNSPECIFIED ABDOMINAL PAIN (4) Afib Code(s): I48.91 - UNSPECIFIED ATRIAL FIBRILLATION Qualifiers: Atrial fibrillation type: chronic Qualified Code(s): I48.2 - Chronic atrial fibrillation (5) Chronic anticoagulation Code(s): Z79.01 - DETENTION (CURRENT) USE OF ANTICOAGULANTS (6) H/O: CVA (cerebrovascular accident) Code(s): Z86.73 - PRSNL HX OF TIA (TIA), AND CEREB INFRC W/O RESID DEFICITS (7) History of open sigmoidectomy Code(s): Z98.890 - OTHER SPECIFIED POSTPROCEDURAL STATES; Z90.49 - ACQUIRED ABSENCE OF OTHER SPECIFIED PARTS OF DIGESTIVE TRACT Assessment/Plan Assessment/Plan Pericholecystic Abscess Sepsis Lactic Acidosis h/o Cholecystitis Bilateral Pleural Effusions Atelectasis Atrial Fibrillation LV Diastolic Dysfunction CKD HTN DM h/o Sigmoid Volvulus s/p sigmoid colectomy h/o CVA Dementia - antibiotics per ID - IR for abscess drainage - CXR difficult to interpret but lung windows on CT A/P showing mostly effusions with compressive atelectasis, less likely pneumonia - O2 to keep SpO2 >90% - aspiration precautions - rate control - anticoagulation on hold DR MIGUEL
[2018-06-21] MEDS: D5-1/2NS+20 MEQ KCL - 20 MEQ/1,000 ML INFUS.BAG IV SCH (15:05)
[2018-06-21] MEDS: VANCOMYCIN 1 GM in D5W (PRE-DOCKED) 1,000 MG/250 ML IVPB SCH (22:12)
[2018-06-22] MEDS ORDERED: PIPERACILLIN/TAZOBACTAM 4.5 GM VIAL IVPB ONE ×3 (01:11→17:09)
[2018-06-22] MEDS ORDERED: DEXTROSE 5%-WATER 100 ML IVPB ONE ×3 (01:12→17:09)
[2018-06-22] MEDS: PIPERACILLIN/TAZOB 4.5 GM 4.5 GM in DEXTROSE 5%-WATER 100 ML IVPB SCH ×2 (01:30→10:51)
[2018-06-22] MEDS: MORPHINE SULFATE 2 MG/ML VIAL IVPUSH PRN ×2 (02:20→18:38)
[2018-06-22] MEDS: INSULIN SLIDING SCALE (NOVOLOG) 1 VIAL SQ SCH ×4 (07:04→22:55)
[2018-06-22] MEDS: D5-1/2NS+20 MEQ KCL - 20 MEQ/1,000 ML INFUS.BAG IV SCH (08:21)
[2018-06-22 08:22] LABS: INR 2.24 (0.83-1.09); PROTHROMBIN TIME (PATIENT) 26.7 SEC (9.7-13.0)
[2018-06-22 08:45] LABS: ALBUMIN 2.2 g/dl (3.4-5.0); ALK PHOS 202 U/L (45-117); ANION GAP 11 MMOL/L (8-16); BILIRUBIN,TOTAL 1.6 mg/dL (0.2-1); BLOOD UREA NITROGEN 19 mg/dL (7-18); CALCIUM 8.2 mg/dL (8.5-10.1); CHLORIDE 111 mmol/L (98-107); CO2 22 mmol/L (21-32); CREATININE 1.6 mg/dL (0.55-1.3); GLUCOSE,RANDOM 273 mg/dL (74-106); POTASSIUM 3.9 mmol/L (3.5-5.1); SGOT/AST 957 U/L (15-37); SGPT/ALT 660 U/L (13-61); SODIUM 144 mmol/L (136-145); TOT PROT 8.1 g/dl (6.4-8.2)
[2018-06-22] MEDS: ALBUTEROL SO4 2.5/IPRATROPIUM 0.5 INH SOL 3 ML VIAL.NEB. NEB SCH ×4 (08:55→20:14)
--- NOTE | 2018-06-22 09:53 | PN ---
Progress Note (short form) - Note Progress Note: PULMONARY Denies shortness of breath or chest pain. Febrile to 102. Vital Signs Period Temp Pulse Resp BP Sys/Pham Pulse Ox Last 24 Hr 97.3 F-102 F 69-117 18-22 127-157/73-111 98 Gen: mildly tachypneic with exertion Heart: RRR Lung: decreased breath sounds at the bases Abd: soft, nontender Ext: no edema CBC, BMP 06/21/18 06:00 06/22/18 07:30 Active Medications Albuterol/Ipratropium (Duoneb -) 1 amp NEB RQID [facility] Last Admin: 06/21/18 20:51 Dose: 1 amp Potassium Chloride/Dextrose/Sod Cl (D5-1/2ns+20 Meq Kcl -) 20 meq in 1,000 mls @ 83 mls/hr IV ASDIR [facility] Last Admin: 06/22/18 08:21 Dose: 83 mls/hr Piperacillin Sod/Tazobactam (Sod 4.5 gm/ Dextrose) 100 mls @ 200 mls/hr IVPB Q8H-IV [facility]; Protocol Last Admin: 06/22/18 01:30 Dose: 200 mls/hr Insulin Aspart (Novolog Vial Sliding Scale -) 1 vial SQ ACHS [facility]; Protocol Last Admin: 06/22/18 07:04 Dose: 6 units Lisinopril (Prinivil) 40 mg PO DAILY [facility] Last Admin: 06/21/18 10:15 Dose: 40 mg Metoprolol Tartrate (Lopressor -) 50 mg PO BID [facility] Last Admin: 06/21/18 21:12 Dose: 50 mg Morphine Sulfate (Morphine Sulfate) 1 mg IVPUSH Q6H PRN PRN Reason: PAIN LEVEL 6-10 Last Admin: 06/22/18 02:20 Dose: 1 mg Ranitidine HCl (Zantac -) 150 mg PO BID [facility] Last Admin: 06/21/18 21:12 Dose: 150 mg Vancomycin HCl (Vancomycin (Pre-Docked)) 1,000 mg IVPB DAILY@2300 [facility] Last Admin: 06/21/18 22:12 Dose: 1,000 mg A/P Pericholecystic Abscess Sepsis Lactic Acidosis h/o Cholecystitis Bilateral Pleural Effusions Atelectasis Atrial Fibrillation LV Diastolic Dysfunction CKD HTN DM h/o Sigmoid Volvulus s/p sigmoid colectomy h/o CVA Dementia - antibiotics per ID - IR for abscess drainage - O2 to keep SpO2 >90% - aspiration precautions - rate control - anticoagulation on hold for abscess drainage
[2018-06-22] MEDS ORDERED: PT OWN MED DRAWER 7, Y5N ONE ×3 (10:40→18:13)
[2018-06-22] MEDS: RANITIDINE HCL 150 MG TABLET (FP) PO SCH ×2 (10:51→21:54)
[2018-06-22] MEDS: LISINOPRIL 20 MG TABLET (FP) PO SCH (10:51)
[2018-06-22] MEDS: METOPROLOL TARTRATE 50 MG TABLET (FP) PO SCH (10:51)
[2018-06-22] MEDS ORDERED: PHYTONADIONE 10 MG/1 ML AMP IVPB ONE (11:19)
--- NOTE | 2018-06-22 11:39 | PN ---
Progress Note (short form) - Note Progress Note: febrile today He moans when I palpated the right upper quadrant Vital Signs - 24 hr 06/21/18 06/21/18 06/21/18 14:51 16:57 19:08 Temperature 98.4 F 97.3 F L 99.6 F Pulse Rate 69 117 H 107 H Respiratory 18 22 H Rate Blood Pressure 127/80 150/100 141/73 O2 Sat by Pulse Oximetry (%) 06/21/18 06/21/18 06/22/18 20:31 21:00 02:10 Temperature 98.6 F 99.3 F Pulse Rate 100 H 92 H Respiratory 22 H 20 Rate Blood Pressure 157/82 153/96 O2 Sat by Pulse 98 Oximetry (%) 06/22/18 06/22/18 07:15 07:30 Temperature 102 F H 100 F H Pulse Rate 100 H Respiratory 20 Rate Blood Pressure 152/111 H O2 Sat by Pulse Oximetry (%) Current Medications Generic Name Dose Route Start Last Admin Trade Name Freq PRN Reason Stop Dose Admin Albuterol/Ipratropium 1 amp 06/20/18 08:00 06/22/18 08:55 Duoneb - NEB 1 amp RQID [facility] Administration Potassium Chloride/Dextrose/Sod Cl 20 meq in 1,000 mls @ 83 mls/hr 06/20/18 10 :15 06/22/18 08:21 D5-1/2ns+20 Meq Kcl - IV 83 mls/hr ASDIR [facility] Administration Piperacillin Sod/Tazobactam 100 mls @ 200 mls/hr 06/20/18 18:00 06/22/18 10: 51 Sod 4.5 gm/ Dextrose IVPB 200 mls/hr Q8H-IV [facility] Administration Protocol Insulin Aspart 1 vial 06/21/18 07:00 06/22/18 07:04 Novolog Vial Sliding Scale - SQ 6 units ACHS [facility] Administration Protocol Lisinopril 40 mg 06/20/18 10:00 06/22/18 10:51 Prinivil PO 40 mg DAILY [facility] Administration Metoprolol Tartrate 50 mg 06/20/18 01:50 06/22/18 10:51 Lopressor - PO 50 mg BID [facility] Administration Morphine Sulfate 1 mg 06/20/18 12:55 06/22/18 02:20 Morphine Sulfate IVPUSH 1 mg Q6H PRN Administration PAIN LEVEL 6-10 Ranitidine HCl 150 mg 06/20/18 10:00 06/22/18 10:51 Zantac - PO 150 mg BID [facility] Administration Vancomycin HCl 1,000 mg 06/20/18 23:15 06/21/18 22:12 Vancomycin (Pre-Docked) IVPB 1,000 mg DAILY@2300 [facility] Administration Laboratory Results - last 24 hr 06/19/18 06/21/18 06/21/18 12:42 13:05 17:04 PT with INR 21.50 H INR 1.81 H Sodium Potassium Chloride Carbon Dioxide Anion Gap BUN Creatinine Creat Clearance w eGFR POC Glucometer 249 Random Glucose Calcium Total Bilirubin AST ALT Alkaline Phosphatase Total Protein Albumin Blood Type A POSITIVE Antibody Screen Negative 06/21/18 06/22/18 06/22/18 20:23 06:28 07:30 PT with INR 26.70 H INR 2.24 H Sodium Potassium Chloride Carbon Dioxide Anion Gap BUN Creatinine Creat Clearance w eGFR POC Glucometer 180 274 Random Glucose Calcium Total Bilirubin AST ALT Alkaline Phosphatase Total Protein Albumin Blood Type Antibody Screen 06/22/18 07:30 PT with INR INR Sodium 144 Potassium 3.9 Chloride 111 H Carbon Dioxide 22 Anion Gap 11 BUN 19 H Creatinine 1.6 H Creat Clearance w eGFR 42.24 POC Glucometer Random Glucose 273 H Calcium 8.2 L Total Bilirubin 1.6 H AST 957 H ALT 660 H Alkaline Phosphatase 202 H Total Protein 8.1 Albumin 2.2 L Blood Type Antibody Screen S1 S2 irregular Lungs decreased Abd- soft, colostomy+, NT , ND No edema PLAN sepsis Gallbladder Abscess Weight loss elevated LFT -- iv fluids -- received Vit K and FFP yesterday to reverse INR- INR was 1.8 and IR wants it <1.5 -- today INR is elevated --will give Vit K today-- recheck INR in the afternoon -- spoke with daughter yesterday -- IV antibiotics-- Zosyn and Vanco -- for IR to drain gallbladder abscess -- pain control if needed -- holding eliquis in anticipation for procedures Problem List - Problems (1) Afib Code(s): I48.91 - UNSPECIFIED ATRIAL FIBRILLATION Qualifiers: Atrial fibrillation type: chronic Qualified Code(s): I48.2 - Chronic atrial fibrillation (2) Biliary sepsis Code(s): K83.09 - OTHER CHOLANGITIS (3) COPD (chronic obstructive pulmonary disease) Code(s): J44.9 - CHRONIC OBSTRUCTIVE PULMONARY DISEASE, UNSPECIFIED Qualifiers: Emphysema type: unspecified (4) Diabetes Code(s): E11.9 - TYPE 2 DIABETES MELLITUS WITHOUT COMPLICATIONS Qualifiers: Diabetes mellitus type: type 2 (5) Elevated liver enzymes Code(s): R74.8 - ABNORMAL LEVELS OF OTHER SERUM ENZYMES
[2018-06-22] MEDS ORDERED: INSULIN (NOVOLOG) ASPART 100 UNITS/ML 10ML VIAL ONE (11:40)
[2018-06-22] MEDS ORDERED: ACETAMINOPHEN 1000 MG/100 ML VIAL (NON FORMULARY) IVPB PRN (15:34)
--- NOTE | 2018-06-22 16:54 | PN ---
GI Progress Note Subjective: Seems more confused and restless today Temp to 102 this AM Awaiting IR Drainage of GB abscess - Objective Vital Signs: Vital Signs Temperature 98.4 F 06/22/18 14:18 Pulse Rate 100 H 06/22/18 14:18 Respiratory Rate 22 H 06/22/18 14:18 Blood Pressure 117/85 06/22/18 14:18 O2 Sat by Pulse Oximetry (%) 93 L 06/22/18 09:00 Constitutional: Anxious (moving around alot) Eyes: No: Sclera Icterus Cardiovascular: Yes: Tachycardia, Pulse Irregular Respiratory: Yes: Diminished (at bases with poor insp effort) Gastrointestinal Inspection: Yes: Other (colostomy left abdomen). No: Distention ...Auscultate: Yes: Normoactive Bowel Sounds ...Palpate: Yes: Soft. No: Hepatomegaly, Tenderness ...Percussion: No: Tympanitic Edema: No (No LE edema) Labs: CBC, BMP 06/21/18 06:00 06/22/18 07:30 INR, PTT INR 2.24 (0.83-1.09) H 06/22/18 07:30 Hepatic Panel Total Bilirubin 1.6 mg/dL (0.2-1) H 06/22/18 07:30 Direct Bilirubin 0.3 mg/dL (0.0-0.2) H 06/20/18 06:30 AST 957 U/L (15-37) H 06/22/18 07:30 ALT 660 U/L (13-61) H 06/22/18 07:30 Alkaline Phosphatase 202 U/L (45-117) H 06/22/18 07:30 Albumin 2.2 g/dl (3.4-5.0) L 06/22/18 07:30 Laboratory Tests 06/22/18 07:30 INR 2.24 H - ....Imaging Cat Scan: Report Reviewed, Image Reviewed Ultrasound: Report Reviewed Problem List - Problems (1) Gallbladder abscess Assessment/Plan: Awaiting abscess drainage Monitor LFTS began to rise again today. No biliary tract dilation noted on prior Correct coagulopathy IV Abx Guarded prognosis. Code(s): K81.0 - ACUTE CHOLECYSTITIS
[2018-06-22 17:01] LABS: INR 3.32 (0.83-1.09); PROTHROMBIN TIME (PATIENT) 39.6 SEC (9.7-13.0)
--- NOTE | 2018-06-22 17:21 | PN ---
Progress Note (short form) - Note Progress Note: febrile to 102 today now 100 lethargic no vomiting Vital Signs Period Temp Pulse Resp BP Sys/Pham Pulse Ox Last 24 Hr 98.1 F-102 F 92-107 20-23 113-157/54-111 93-98 cor-rrr llungs scattered rhonchi abd soft, +ostomy nontender, not distended ext no edema CBC, BMP 06/21/18 06:00 06/22/18 07:30 Microbiology 06/19/18 16:00 Blood - Peripheral Venous Blood Culture - Preliminary NO GROWTH OBTAINED AFTER 72 HOURS, INCUBATION TO CONTINUE FOR 2 DAYS. 06/19/18 16:00 Blood - Peripheral Venous Blood Culture - Preliminary NO GROWTH OBTAINED AFTER 72 HOURS, INCUBATION TO CONTINUE FOR 2 DAYS. 06/19/18 16:00 Urine - Urine - Catheterized Urine Culture - Final NO GROWTH OBTAINED Current Medications Acetaminophen (Ofirmev Injection -) 1,000 mg IVPB Q6H PRN PRN Reason: TEMP > 100 Last Admin: 06/22/18 15:40 Dose: 1,000 mg Albuterol/Ipratropium (Duoneb -) 1 amp NEB RQID [facility] Last Admin: 06/22/18 14:00 Dose: 1 amp Potassium Chloride/Dextrose/Sod Cl (D5-1/2ns+20 Meq Kcl -) 20 meq in 1,000 mls @ 83 mls/hr IV ASDIR [facility] Last Admin: 06/22/18 08:21 Dose: 83 mls/hr Piperacillin Sod/Tazobactam (Sod 4.5 gm/ Dextrose) 100 mls @ 200 mls/hr IVPB Q8H-IV [facility]; Protocol Last Admin: 06/22/18 10:51 Dose: 200 mls/hr Insulin Aspart (Novolog Vial Sliding Scale -) 1 vial SQ ACHS [facility]; Protocol Last Admin: 06/22/18 11:46 Dose: 4 units Lisinopril (Prinivil) 40 mg PO DAILY [facility] Last Admin: 06/22/18 10:51 Dose: 40 mg Metoprolol Tartrate (Lopressor -) 75 mg PO BID [facility] Morphine Sulfate (Morphine Sulfate) 1 mg IVPUSH Q6H PRN PRN Reason: PAIN LEVEL 6-10 Last Admin: 06/22/18 02:20 Dose: 1 mg Ranitidine HCl (Zantac -) 150 mg PO BID [facility] Last Admin: 06/22/18 10:51 Dose: 150 mg Vancomycin HCl (Vancomycin (Pre-Docked)) 1,000 mg IVPB DAILY@2300 [facility] Last Admin: 06/21/18 22:12 Dose: 1,000 mg a/p recurrent fever LTS worsening for drainage of GB abscess when INR corrects RUQ gall bladder abscess abnormal LFTs repeat cultures, cxray will switch to meropenem/daptomycin (history of vre)/flagyl history hemicolectomy secondary to volvolus Problem List - Problems (1) Gallbladder abscess Code(s): K81.0 - ACUTE CHOLECYSTITIS (2) Abnormal LFTs Code(s): R94.5 - ABNORMAL RESULTS OF LIVER FUNCTION STUDIES
[2018-06-22] MEDS ORDERED: MEROPENEM 1 GM in DEXTROSE 5%-WATER 100 ML IVPB SCH (18:00)
[2018-06-22] MEDS: DAPTOMYCIN 500 MG in SODIUM CHLORIDE 50 ML IVPB SCH (18:31)
[2018-06-22] MEDS: MEROPENEM 1 GM in DEXTROSE 5%-WATER 100 ML IVPB SCH (20:04)
[2018-06-22] MEDS: METOPROLOL TARTRATE 25 MG TABLET (FP) PO SCH (21:54)
[2018-06-23] MEDS ORDERED: PT OWN MED DRAWER 7, Y5N ONE ×2 (05:37→17:40)
[2018-06-23] MEDS: MEROPENEM 1 GM in DEXTROSE 5%-WATER 100 ML IVPB SCH ×2 (05:41→17:42)
[2018-06-23] MEDS: INSULIN SLIDING SCALE (NOVOLOG) 1 VIAL SQ SCH ×4 (06:37→22:17)
--- NOTE | 2018-06-23 06:56 | PN ---
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 He has been stable since admission. - Current Medication List Current Medications: Active Medications Acetaminophen (Ofirmev Injection -) 1,000 mg IVPB Q6H PRN PRN Reason: TEMP > 100 Last Admin: 06/22/18 15:40 Dose: 1,000 mg Albuterol/Ipratropium (Duoneb -) 1 amp NEB RQID [facility] Last Admin: 06/22/18 20:14 Dose: 1 amp Potassium Chloride/Dextrose/Sod Cl (D5-1/2ns+20 Meq Kcl -) 20 meq in 1,000 mls @ 83 mls/hr IV ASDIR [facility] Last Admin: 06/22/18 08:21 Dose: 83 mls/hr Daptomycin 500 mg/ Sodium (Chloride) 50 mls @ 100 mls/hr IVPB DAILY [facility]; Protocol Last Admin: 06/22/18 18:31 Dose: 100 mls/hr Meropenem 1 gm/ Dextrose 100 mls @ 200 mls/hr IVPB Q12H [facility] Last Admin: 06/23/18 05:41 Dose: 200 mls/hr Metronidazole (Flagyl 500mg Premixed Ivpb -) 500 mg in 100 mls @ 100 mls/hr IVPB Q8H-IV [facility] Last Admin: 06/23/18 02:15 Dose: 100 mls/hr Insulin Aspart (Novolog Vial Sliding Scale -) 1 vial SQ ACHS [facility]; Protocol Last Admin: 06/23/18 06:37 Dose: 2 units Lisinopril (Prinivil) 40 mg PO DAILY [facility] Last Admin: 06/22/18 10:51 Dose: 40 mg Metoprolol Tartrate (Lopressor -) 75 mg PO BID [facility] Last Admin: 06/22/18 21:54 Dose: 75 mg Morphine Sulfate (Morphine Sulfate) 1 mg IVPUSH Q6H PRN PRN Reason: PAIN LEVEL 6-10 Last Admin: 06/22/18 18:38 Dose: 1 mg Ranitidine HCl (Zantac -) 150 mg PO BID [facility] Last Admin: 06/22/18 21:54 Dose: 150 mg - Objective Vital Signs: Vital Signs Temperature 98.7 F 06/23/18 06:00 Pulse Rate 69 06/23/18 06:00 Respiratory Rate 20 06/23/18 06:00 Blood Pressure 113/69 06/23/18 06:00 O2 Sat by Pulse Oximetry (%) 93 L 06/22/18 21:00 Vital Signs Period Temp Pulse Resp BP Sys/Pham Pulse Ox Last 24 Hr 98.1 F-102 F 69-111 20-24 113-152/54-111 93-93 Constitutional: Yes: No Distress, Calm, Thin Eyes: Yes: Conjunctiva Clear, EOM Intact HENT: Yes: Atraumatic, Normocephalic Neck: Yes: Supple, Trachea Midline Cardiovascular: Yes: Regular Rate and Rhythm, S1, S2 Respiratory: Yes: Regular, CTA Bilaterally Gastrointestinal: Yes: Normal Bowel Sounds, Soft, Abdomen, Obese, Other ( functional colostomy). No: Tenderness, Tenderness, Epigastrium, Tenderness, Rebound ...Rectal Exam: Yes: Deferred Genitourinary: No: CVA Tenderness - Left, CVA Tenderness - Right Breast(s): No: Discharge from Nipple, Gynecomastia Extremities: No: Cyanosis Edema: Yes Edema: LUE: Trace, RUE: Trace, LLE: Trace, RLE: Trace Peripheral Pulses WNL: Yes Peripheral Pulses: Left Radial: 2+, Right Radial: 2+, Left Doralis Pedis: 2+, Right Dorsalis Pedis: 2+, Left Femoral: 2+, Right Femoral: 2+ Neurological: Yes: Alert, Confusion. No: Oriented Psychiatric: Yes: Alert. No: Oriented Labs: CBC, BMP 06/21/18 06:00 06/22/18 07:30 INR, PTT INR 3.32 (0.83-1.09) H 06/22/18 16:15 Problem List - Problems (1) Abnormal abdominal CT scan Assessment/Plan: 78yo female MMP Gall bladder appears to be a loculated collection failure to thrive, notable weight loss, reported poor oral intake. A peg may help supplement his kumar intake, this should be discussed with the family. GI may be able to oblige in the absense of previous colonic distension. CT shows stomach very anterior in the upper apbdomen for a clear window for PEG. As an alternative we are happy to provide surgical gastrostomy. No reports of abdominal pain, colostomy is functional. No acute surgical intervention is needed at this time Correct INR <1.5 Consider IR for drainage of GB if suspected as septic source will follow periperhally Code(s): R93.5 - ABN FINDINGS ON DX IMAGING OF ABD REGIONS, INC RETROPERITON (2) Afib Code(s): I48.91 - UNSPECIFIED ATRIAL FIBRILLATION Qualifiers: Atrial fibrillation type: chronic Qualified Code(s): I48.2 - Chronic atrial fibrillation (3) COPD (chronic obstructive pulmonary disease) Code(s): J44.9 - CHRONIC OBSTRUCTIVE PULMONARY DISEASE, UNSPECIFIED Qualifiers: Emphysema type: unspecified (4) DVT prophylaxis Code(s): SAH4805 - (5) H/O: CVA (cerebrovascular accident) Code(s): Z86.73 - PRSNL HX OF TIA (TIA), AND CEREB INFRC W/O RESID DEFICITS (6) NSTEMI (non-ST elevated myocardial infarction) Code(s): I21.4 - NON-ST ELEVATION (NSTEMI) MYOCARDIAL INFARCTION (7) Prolonged Q-T interval on ECG Code(s): R94.31 - ABNORMAL ELECTROCARDIOGRAM [ECG] [EKG]
[2018-06-23 07:41] LABS: BASO % 0.1 % (0-2.0); LYMPH % 18.3 % (8-40); MCH 30.9 pg (25.7-33.7); MCHC 33.3 g/dl (32.0-35.9); MEAN CELL VOLUME 92.9 fl (80-96); MEAN PLT VOLUME 9.9 fl (7.5-11.1); MONO % 6.7 % (3.8-10.2); NEUT % 74.9 % (42.8-82.8); PLATELET COUNT 129 K/MM3 (134-434); RDW 16.1 % (11.9-15.9)
[2018-06-23 07:45] LABS: INR 3.65 (0.83-1.09); PROTHROMBIN TIME (PATIENT) 43.6 SEC (9.7-13.0)
[2018-06-23] MEDS: ALBUTEROL SO4 2.5/IPRATROPIUM 0.5 INH SOL 3 ML VIAL.NEB. NEB SCH ×4 (07:45→20:00)
[2018-06-23 07:47] LABS: RBC 3.55 M/mm3 (4.00-5.60); WHITE BLOOD COUNT 16.7 K/mm3 (4.0-10.0)
[2018-06-23 08:57] LABS: ALBUMIN 2.2 g/dl (3.4-5.0); ALK PHOS 220 U/L (45-117); ANION GAP 15 MMOL/L (8-16); BILIRUBIN,TOTAL 2.6 mg/dL (0.2-1); BLOOD UREA NITROGEN 34 mg/dL (7-18); CALCIUM 7.8 mg/dL (8.5-10.1); CHLORIDE 113 mmol/L (98-107); CO2 18 mmol/L (21-32); CREATININE 2.5 mg/dL (0.55-1.3); GLUCOSE,RANDOM 163 mg/dL (74-106); POTASSIUM 5.2 mmol/L (3.5-5.1); SGOT/AST 10448 U/L (15-37); SGPT/ALT 3440 U/L (13-61); SODIUM 146 mmol/L (136-145); TOT PROT 7.5 g/dl (6.4-8.2)
[2018-06-23] MEDS: METOPROLOL TARTRATE 25 MG TABLET (FP) PO SCH (09:42)
[2018-06-23] MEDS: LISINOPRIL 20 MG TABLET (FP) PO SCH (09:42)
[2018-06-23] MEDS: RANITIDINE HCL 150 MG TABLET (FP) PO SCH (09:42)
[2018-06-23] MEDS ORDERED: PHYTONADIONE 10 MG/1 ML AMP IVPB ONE (10:01)
--- NOTE | 2018-06-23 10:08 | PN ---
Progress Note (short form) - Note Progress Note: pt seen/ examined chart reviewed awake. follows simple commands chronic ill appearance labs - noted- Vital Signs Temp 98.7 F 06/23/18 06:00 Pulse 69 06/23/18 06:00 Resp 20 06/23/18 06:00 BP 113/69 06/23/18 06:00 Pulse Ox 93 L 06/22/18 21:00 Intake & Output 06/22/18 06/22/18 06/23/18 11:59 23:59 11:59 Intake Total 681 1546 681 Balance 681 1546 681 Weight 190 lb 12.8 oz Intake: IV 581 1046 581 D5-1/2NS+20 MEQ KCL - 20 581 1046 581 meq In 1,000 ml @ 83 mls/ hr IV ASDIR [facility] Rx#: [id number] IVPB 100 500 100 Oral 0 Other: Voiding Method Incontinent Incontinent # Unmeasured Voids Void 1 Weight Measurement Method [facility] Active Medications Albuterol/Ipratropium (Duoneb -) 1 amp NEB RQID [facility] Last Admin: 06/23/18 07:45 Dose: 1 amp Daptomycin 500 mg/ Sodium (Chloride) 50 mls @ 100 mls/hr IVPB DAILY [facility]; Protocol Last Admin: 06/22/18 18:31 Dose: 100 mls/hr Meropenem 1 gm/ Dextrose 100 mls @ 200 mls/hr IVPB Q12H [facility] Last Admin: 06/23/18 05:41 Dose: 200 mls/hr Metronidazole (Flagyl 500mg Premixed Ivpb -) 500 mg in 100 mls @ 100 mls/hr IVPB Q8H-IV [facility] Last Admin: 06/23/18 09:42 Dose: 100 mls/hr Insulin Aspart (Novolog Vial Sliding Scale -) 1 vial SQ ACHS [facility]; Protocol Last Admin: 06/23/18 06:37 Dose: 2 units Morphine Sulfate (Morphine Sulfate) 1 mg IVPUSH Q6H PRN PRN Reason: PAIN LEVEL 6-10 Last Admin: 06/22/18 18:38 Dose: 1 mg CBC, BMP 06/23/18 06:30 06/23/18 06:30 CMP Sodium 146 mmol/L (136-145) H 06/23/18 06:30 Potassium 5.2 mmol/L (3.5-5.1) H 06/23/18 06:30 Chloride 113 mmol/L (98-107) H 06/23/18 06:30 Carbon Dioxide 18 mmol/L (21-32) L 06/23/18 06:30 Anion Gap 15 MMOL/L (8-16) 06/23/18 06:30 BUN 34 mg/dL (7-18) H 06/23/18 06:30 Creatinine 2.5 mg/dL (0.55-1.3) H 06/23/18 06:30 Creat Clearance w eGFR 25.24 (>60) 06/23/18 06:30 POC Glucometer 173 UNITS (80-120) 06/23/18 11:42 Random Glucose 163 mg/dL (74-106) H 06/23/18 06:30 Lactic Acid 3.5 mmol/L (0.4-2.0) H* 06/19/18 21:23 Calcium 7.8 mg/dL (8.5-10.1) L 06/23/18 06:30 Phosphorus 3.7 mg/dL (2.5-4.9) 06/20/18 06:30 Magnesium 2.0 mg/dL (1.8-2.4) 06/20/18 06:30 Total Bilirubin 2.6 mg/dL (0.2-1) H 06/23/18 06:30 Direct Bilirubin 0.3 mg/dL (0.0-0.2) H 06/20/18 06:30 AST 06413 U/L (15-37) H 06/23/18 06:30 ALT 3440 U/L (13-61) H 06/23/18 06:30 Alkaline Phosphatase 220 U/L (45-117) H 06/23/18 06:30 B-Natriuretic Peptide 5235.7 pg/ml (5-450) H 06/20/18 06:30 Total Protein 7.5 g/dl (6.4-8.2) 06/23/18 06:30 Albumin 2.2 g/dl (3.4-5.0) L 06/23/18 06:30 TSH 2.68 uIU/ml (0.358-3.74) D 06/20/18 06:30 Microbiology 06/19/18 16:00 Blood Culture - Preliminary Blood - Peripheral Venous NO GROWTH OBTAINED AFTER 72 HOURS, INCUBATION TO CONTINUE FOR 2 DAYS. 06/19/18 16:00 Blood Culture - Preliminary Blood - Peripheral Venous NO GROWTH OBTAINED AFTER 72 HOURS, INCUBATION TO CONTINUE FOR 2 DAYS. INR, PTT INR 3.65 (0.83-1.09) H 06/23/18 06:30 cxr - noted Physical Exam awake. chronic ill appearance S1 S2 irregular Lungs decreased Abd- soft, colostomy+, non tender. No edema a/p shock liver sepsis coogulopathy arf on crf Hyperkalemia Abx vit k change fluids without k d/c bp meds d/c tylenol vitamin k ffp aspiration pneumonia keep npo condition poor prognosis gaurded will follow Problem List - Problems (1) Abnormal LFTs Code(s): R94.5 - ABNORMAL RESULTS OF LIVER FUNCTION STUDIES (2) Afib Code(s): I48.91 - UNSPECIFIED ATRIAL FIBRILLATION (3) Gallbladder abscess Code(s): K81.0 - ACUTE CHOLECYSTITIS (4) Pneumonia Code(s): J18.9 - PNEUMONIA, UNSPECIFIED ORGANISM Qualifiers: (5) Diabetes Code(s): E11.9 - TYPE 2 DIABETES MELLITUS WITHOUT COMPLICATIONS Qualifiers: Diabetes mellitus type: type 2
[2018-06-23] MEDS: DEXTROSE 5%-0.45% SALINE 1,000 ML IV SCH (10:26)
[2018-06-23] MEDS: PANTOPRAZOLE SODIUM 40 MG VIAL IVPUSH SCH (10:57)
[2018-06-23] MEDS: DAPTOMYCIN 500 MG in SODIUM CHLORIDE 50 ML IVPB SCH (11:23)
--- NOTE | 2018-06-23 13:32 | PN ---
Progress Note (short form) - Note Progress Note: PULMONARY Afebrile today/awake/alert Gen: mildly tachypneic with exertion Heart: RRR Lung: decreased breath sounds at the bases Abd: soft, nontender Ext: no edema labs/meds/notes/images reviewed Imp: Pericholecystic Abscess Sepsis Lactic Acidosis h/o Cholecystitis Bilateral Pleural Effusions Atelectasis Atrial Fibrillation LV Diastolic Dysfunction CKD HTN DM h/o Sigmoid Volvulus s/p sigmoid colectomy h/o CVA Dementia - antibiotics per ID - IR for abscess drainage if deemed a candidate - O2 to keep SpO2 >90% - aspiration precautions - rate control - anticoagulation on hold for abscess drainage Britton GILES MD
--- NOTE | 2018-06-23 14:51 | PN ---
Progress Note (short form) - Note Progress Note: no fevers today more alert Vital Signs Period Temp Pulse Resp BP Sys/Pham Pulse Ox Last 24 Hr 98.0 F-100.3 F 69-111 20-24 113-145/69-84 93-93 cor-rrr lungs decreased bs at bases abd soft,nt ext no edema CBC, BMP 06/23/18 06:30 06/23/18 06:30 Microbiology 06/19/18 16:00 Blood - Peripheral Venous Blood Culture - Preliminary NO GROWTH OBTAINED AFTER 72 HOURS, INCUBATION TO CONTINUE FOR 2 DAYS. 06/19/18 16:00 Blood - Peripheral Venous Blood Culture - Preliminary NO GROWTH OBTAINED AFTER 72 HOURS, INCUBATION TO CONTINUE FOR 2 DAYS. 06/19/18 16:00 Urine - Urine - Catheterized Urine Culture - Final NO GROWTH OBTAINED Current Medications Albuterol/Ipratropium (Duoneb -) 1 amp NEB RQID [facility] Last Admin: 06/23/18 11:36 Dose: 1 amp Daptomycin 500 mg/ Sodium (Chloride) 50 mls @ 100 mls/hr IVPB DAILY [facility]; Protocol Last Admin: 06/23/18 11:23 Dose: 100 mls/hr Meropenem 1 gm/ Dextrose 100 mls @ 200 mls/hr IVPB Q12H [facility] Last Admin: 06/23/18 05:41 Dose: 200 mls/hr Dextrose/Sodium Chloride (D5-1/2ns -) 1,000 mls @ 83 mls/hr IV ASDIR [facility] Last Admin: 06/23/18 10:26 Dose: 83 mls/hr Insulin Aspart (Novolog Vial Sliding Scale -) 1 vial SQ ACHS [facility]; Protocol Last Admin: 06/23/18 11:45 Dose: 2 units Morphine Sulfate (Morphine Sulfate) 1 mg IVPUSH Q6H PRN PRN Reason: PAIN LEVEL 6-10 Last Admin: 06/22/18 18:38 Dose: 1 mg Pantoprazole Sodium (Protonix Iv) 40 mg IVPUSH DAILY [facility] Last Admin: 06/23/18 10:57 Dose: Not Given cxray bibasilr infiltrates//effusions a/p afebrile today LTS worsening-gallbladder abscess for drainage of GB abscess when INR corrects RUQ gall bladder abscess abnormal LFTs repeat cultures sent cxray- ?aspiration -bibasilar infiltrate/effusions continue meropenem/daptomycin (history VRE) repeat abdominal imaging d/w Dr Keita overall prognosis guarded Laboratory Tests 06/20/18 06/21/18 06/23/18 06:30 06:00 06:30 Total Bilirubin 2.6 H AST 406 H 173 H 51975 H ALT 461 H 293 H 3440 H Alkaline Phosphatase 156 H 142 H 220 H Problem List - Problems (1) Gallbladder abscess Code(s): K81.0 - ACUTE CHOLECYSTITIS (2) Abnormal LFTs Code(s): R94.5 - ABNORMAL RESULTS OF LIVER FUNCTION STUDIES
[2018-06-24] MEDS ORDERED: PT OWN MED DRAWER 7, Y5N ONE ×2 (05:26→17:38)
[2018-06-24] MEDS: MEROPENEM 1 GM in DEXTROSE 5%-WATER 100 ML IVPB SCH ×2 (05:29→17:41)
[2018-06-24] MEDS: INSULIN SLIDING SCALE (NOVOLOG) 1 VIAL SQ SCH ×4 (06:41→22:10)
[2018-06-24] MEDS: ALBUTEROL SO4 2.5/IPRATROPIUM 0.5 INH SOL 3 ML VIAL.NEB. NEB SCH ×4 (08:05→20:50)
--- NOTE | 2018-06-24 08:32 | PN ---
Progress Note, Physician Chief Complaint: no events noted ; family at the bedside ; pt nonverbal - Current Medication List Current Medications: Active Medications Albuterol/Ipratropium (Duoneb -) 1 amp NEB RQID [facility] Last Admin: 06/24/18 08:05 Dose: 1 amp Meropenem 1 gm/ Dextrose 100 mls @ 200 mls/hr IVPB Q12H [facility] Last Admin: 06/24/18 05:29 Dose: 200 mls/hr Dextrose/Sodium Chloride (D5-1/2ns -) 1,000 mls @ 83 mls/hr IV ASDIR [facility] Last Admin: 06/23/18 10:26 Dose: 83 mls/hr Insulin Aspart (Novolog Vial Sliding Scale -) 1 vial SQ ACHS [facility]; Protocol Last Admin: 06/24/18 06:41 Dose: 6 units Morphine Sulfate (Morphine Sulfate) 1 mg IVPUSH Q6H PRN PRN Reason: PAIN LEVEL 6-10 Last Admin: 06/22/18 18:38 Dose: 1 mg Pantoprazole Sodium (Protonix Iv) 40 mg IVPUSH DAILY [facility] Last Admin: 06/23/18 10:57 Dose: Not Given - Objective Vital Signs: Vital Signs Temperature 98.4 F 06/24/18 06:17 Pulse Rate 69 06/24/18 06:17 Respiratory Rate 18 06/24/18 06:17 Blood Pressure 138/38 L 06/24/18 06:17 O2 Sat by Pulse Oximetry (%) 98 06/23/18 21:00 Constitutional: Yes: Well Nourished, No Distress, Calm HENT: Yes: WNL Neck: Yes: Supple Cardiovascular: Yes: WNL Respiratory: Yes: Regular, CTA Bilaterally Gastrointestinal: Yes: WNL, Normal Bowel Sounds, Other (tender ruq without rebound or guarding) Edema: No Labs: INR, PTT INR 3.65 (0.83-1.09) H 06/23/18 06:30 Problem List - Problems (1) Abnormal LFTs Assessment/Plan: await IR drain of the GB abscess correct coagulopathy c/w abx trend lft f/u serologies Code(s): R94.5 - ABNORMAL RESULTS OF LIVER FUNCTION STUDIES (2) Gallbladder abscess Code(s): K81.0 - ACUTE CHOLECYSTITIS (3) Abdominal pain Code(s): R10.9 - UNSPECIFIED ABDOMINAL PAIN
[2018-06-24 08:53] LABS: BASO % 0.4 % (0-2.0); EOS % 0.1 % (0-4.5); HEMATOCRIT 38.4 % (35.4-49); HEMOGLOBIN 12.8 GM/dL (11.7-16.9); LYMPH % 17.1 % (8-40); MCH 30.5 pg (25.7-33.7); MCHC 33.5 g/dl (32.0-35.9); MEAN CELL VOLUME 91.3 fl (80-96); MEAN PLT VOLUME 9.8 fl (7.5-11.1); MONO % 4.6 % (3.8-10.2); NEUT % 77.8 % (42.8-82.8); PLATELET COUNT 137 K/MM3 (134-434); RDW 16.5 % (11.9-15.9)
[2018-06-24 09:01] LABS: INR 3.41 (0.83-1.09); PROTHROMBIN TIME (PATIENT) 40.7 SEC (9.7-13.0)
[2018-06-24] MEDS: PANTOPRAZOLE SODIUM 40 MG VIAL IVPUSH SCH (09:31)
[2018-06-24 10:02] LABS: ALK PHOS 212 U/L (45-117); ANION GAP 12 MMOL/L (8-16); BILIRUBIN,TOTAL 2.4 mg/dL (0.2-1); BLOOD UREA NITROGEN 49 mg/dL (7-18); CALCIUM 7.3 mg/dL (8.5-10.1); CHLORIDE 113 mmol/L (98-107); CO2 22 mmol/L (21-32); CREATININE 3.4 mg/dL (0.55-1.3); GLUCOSE,RANDOM 250 mg/dL (74-106); POTASSIUM 4.4 mmol/L (3.5-5.1); SGOT/AST 4098 U/L (15-37); SGPT/ALT 2825 U/L (13-61); SODIUM 147 mmol/L (136-145); TOT PROT 7.2 g/dl (6.4-8.2)
--- NOTE | 2018-06-24 10:04 | PN ---
Progress Note (short form) - Note Progress Note: pt seen/ examined awake. comfortable overall condition same denies pain Vital Signs Temp 98.4 F 06/24/18 06:17 Pulse 69 06/24/18 06:17 Resp 18 06/24/18 06:17 BP 138/38 L 06/24/18 06:17 Pulse Ox 98 06/23/18 21:00 Intake & Output 06/23/18 06/23/18 06/24/18 11:59 23:59 11:59 Intake Total 831 1428 631 Output Total 2 Balance 831 1428 629 Weight 190 lb 12.8 oz 196 lb Intake: IV 581 1328 581 D5-1/2NS+20 MEQ KCL - 20 581 meq In 1,000 ml @ 83 mls/ hr IV ASDIR [facility] Rx#: [id number] D5-1/2Ns - 1,000 ml @ 83 1328 581 mls/hr IV ASDIR [facility] Rx#: [id number] IVPB 250 100 50 Output: Urine 2 Void 2 Other: Voiding Method Incontinent Incontinent # Unmeasured Voids Void 1 Weight Measurement Method [facility]ations Albuterol/Ipratropium (Duoneb -) 1 amp NEB RQID [facility] Last Admin: 06/24/18 08:05 Dose: 1 amp Meropenem 1 gm/ Dextrose 100 mls @ 200 mls/hr IVPB Q12H [facility] Last Admin: 06/24/18 05:29 Dose: 200 mls/hr Dextrose/Sodium Chloride (D5-1/2ns -) 1,000 mls @ 83 mls/hr IV ASDIR [facility] Last Admin: 06/23/18 10:26 Dose: 83 mls/hr Insulin Aspart (Novolog Vial Sliding Scale -) 1 vial SQ ACHS [facility]; Protocol Last Admin: 06/24/18 06:41 Dose: 6 units Morphine Sulfate (Morphine Sulfate) 1 mg IVPUSH Q6H PRN PRN Reason: PAIN LEVEL 6-10 Last Admin: 06/22/18 18:38 Dose: 1 mg Pantoprazole Sodium (Protonix Iv) 40 mg IVPUSH DAILY [facility] Last Admin: 06/24/18 09:31 Dose: 40 mg Phytonadione (Aqua Mephyton Injection -) 10 mg IVPB ONCE ONE Stop: 06/24/18 10:16 CBC, BMP 06/24/18 07:00 06/24/18 07:00 CMP Sodium 147 mmol/L (136-145) H 06/24/18 07:00 Potassium 4.4 mmol/L (3.5-5.1) 06/24/18 07:00 Chloride 113 mmol/L (98-107) H 06/24/18 07:00 Carbon Dioxide 22 mmol/L (21-32) 06/24/18 07:00 Anion Gap 12 MMOL/L (8-16) 06/24/18 07:00 BUN 49 mg/dL (7-18) H 06/24/18 07:00 Creatinine 3.4 mg/dL (0.55-1.3) H 06/24/18 07:00 Creat Clearance w eGFR 17.70 (>60) 06/24/18 07:00 POC Glucometer 256 UNITS (80-120) 06/24/18 06:38 Random Glucose 250 mg/dL (74-106) H 06/24/18 07:00 Lactic Acid 3.5 mmol/L (0.4-2.0) H* 06/19/18 21:23 Calcium 7.3 mg/dL (8.5-10.1) L 06/24/18 07:00 Phosphorus 3.7 mg/dL (2.5-4.9) 06/20/18 06:30 Magnesium 2.0 mg/dL (1.8-2.4) 06/20/18 06:30 Total Bilirubin 2.4 mg/dL (0.2-1) H 06/24/18 07:00 Direct Bilirubin 0.3 mg/dL (0.0-0.2) H 06/20/18 06:30 AST 4098 U/L (15-37) H 06/24/18 07:00 ALT 2825 U/L (13-61) H 06/24/18 07:00 Alkaline Phosphatase 212 U/L (45-117) H 06/24/18 07:00 Creatine Kinase 340 U/L (26-308) H 06/24/18 07:00 B-Natriuretic Peptide 5235.7 pg/ml (5-450) H 06/20/18 06:30 Total Protein 7.2 g/dl (6.4-8.2) 06/24/18 07:00 Albumin 2.0 g/dl (3.4-5.0) L 06/24/18 07:00 TSH 2.68 uIU/ml (0.358-3.74) D 06/20/18 06:30 ct abd - no change Physical Exam awake. chronic ill appearance S1 S2 irregular Lungs decreased Abd- soft, colostomy+, non tender. No edema a/p shock liver/ gal bladder abscess sepsis coogulopathy arf on crf Hyperkalemia Abx vit k aspiration pneumonia keep npo condition poor prognosis gaurded renal consult will follow Problem List - Problems (1) Abnormal LFTs Code(s): R94.5 - ABNORMAL RESULTS OF LIVER FUNCTION STUDIES (2) Afib Code(s): I48.91 - UNSPECIFIED ATRIAL FIBRILLATION (3) Gallbladder abscess Code(s): K81.0 - ACUTE CHOLECYSTITIS (4) Pneumonia Code(s): J18.9 - PNEUMONIA, UNSPECIFIED ORGANISM Qualifiers: (5) Diabetes Code(s): E11.9 - TYPE 2 DIABETES MELLITUS WITHOUT COMPLICATIONS Qualifiers: Diabetes mellitus type: type 2
[2018-06-24] MEDS ORDERED: PHYTONADIONE 10 MG/1 ML AMP IVPB ONE (10:15)
[2018-06-24] MEDS: DEXTROSE 5%-0.45% SALINE 1,000 ML IV SCH ×2 (10:32→17:02)
--- NOTE | 2018-06-24 10:59 | PN ---
Progress Note (short form) - Note Progress Note: Resting in NAD on NC O2. Mildly confused. No acute events overnight. INR still elevated. Intake & Output 06/21/18 06/22/18 06/23/18 06/24/18 23:59 23:59 23:59 23:59 Intake Total 2562 2227 2259 631 Output Total 2 Balance 2562 2227 2259 629 Weight 186 lb 14.4 oz 190 lb 12.8 oz 196 lb Last Vital Signs Temp Pulse Resp BP Pulse Ox 98.4 F 69 18 138/38 L 98 06/24/18 06:17 06/24/18 06:17 06/24/18 06:17 06/24/18 06:17 06/23/18 21:00 Active Medications Albuterol/Ipratropium (Duoneb -) 1 amp NEB RQID [facility] Last Admin: 06/24/18 08:05 Dose: 1 amp Meropenem 1 gm/ Dextrose 100 mls @ 200 mls/hr IVPB Q12H [facility] Last Admin: 06/24/18 05:29 Dose: 200 mls/hr Dextrose/Sodium Chloride (D5-1/2ns -) 1,000 mls @ 83 mls/hr IV ASDIR [facility] Last Admin: 06/24/18 10:32 Dose: Not Given Insulin Aspart (Novolog Vial Sliding Scale -) 1 vial SQ ACHS [facility]; Protocol Last Admin: 06/24/18 06:41 Dose: 6 units Morphine Sulfate (Morphine Sulfate) 1 mg IVPUSH Q6H PRN PRN Reason: PAIN LEVEL 6-10 Last Admin: 06/22/18 18:38 Dose: 1 mg Pantoprazole Sodium (Protonix Iv) 40 mg IVPUSH DAILY [facility] Last Admin: 06/24/18 09:31 Dose: 40 mg Gen: NAD Heart: RRR Lung: decreased breath sounds at the bases, few scattered rhonchi Abd: soft, nontender Ext: no edema Laboratory Results - last 24 hr 06/23/18 06/23/18 06/23/18 11:42 17:33 22:13 Corrected WBC (auto) RBC Hgb Hct MCV MCH MCHC RDW Plt Count MPV Absolute Neuts (auto) Neutrophils % Lymphocytes % Monocytes % Eosinophils % Basophils % PT with INR INR Sodium Potassium Chloride Carbon Dioxide Anion Gap BUN Creatinine Creat Clearance w eGFR POC Glucometer 173 147 207 Random Glucose Calcium Total Bilirubin AST ALT Alkaline Phosphatase Creatine Kinase Creatine Kinase Index CK-MB (CK-2) Total Protein Albumin 06/24/18 06/24/18 06/24/18 06:38 07:00 07:00 Corrected WBC (auto) 12.68 RBC 4.20 Hgb 12.8 Hct 38.4 D MCV 91.3 MCH 30.5 MCHC 33.5 RDW 16.5 H Plt Count 137 MPV 9.8 Absolute Neuts (auto) 11.0 H Neutrophils % 77.8 Lymphocytes % 17.1 Monocytes % 4.6 Eosinophils % 0.1 D Basophils % 0.4 D PT with INR 40.70 H INR 3.41 H Sodium Potassium Chloride Carbon Dioxide Anion Gap BUN Creatinine Creat Clearance w eGFR POC Glucometer 256 Random Glucose Calcium Total Bilirubin AST ALT Alkaline Phosphatase Creatine Kinase Creatine Kinase Index CK-MB (CK-2) Total Protein Albumin 06/24/18 06/24/18 07:00 07:00 Corrected WBC (auto) RBC Hgb Hct MCV MCH MCHC RDW Plt Count MPV Absolute Neuts (auto) Neutrophils % Lymphocytes % Monocytes % Eosinophils % Basophils % PT with INR INR Sodium 147 H Potassium 4.4 Chloride 113 H Carbon Dioxide 22 Anion Gap 12 BUN 49 H Creatinine 3.4 H Creat Clearance w eGFR 17.70 POC Glucometer Random Glucose 250 H Calcium 7.3 L Total Bilirubin 2.4 H AST 4098 H ALT 2825 H Alkaline Phosphatase 212 H Creatine Kinase 340 H Creatine Kinase Index 1.9 CK-MB (CK-2) 6.5 H Total Protein 7.2 Albumin 2.0 L A/P Pericholecystic Abscess Sepsis Lactic Acidosis h/o Cholecystitis Bilateral Pleural Effusions Atelectasis Atrial Fibrillation LV Diastolic Dysfunction CKD HTN DM h/o Sigmoid Volvulus s/p sigmoid colectomy h/o CVA Dementia - antibiotics per ID - IR for abscess drainage once INR corrects - O2 to keep SpO2 >90% - Aspiration precautions - Rate control Dr Patel
[2018-06-24 12:21] LABS: WHITE BLOOD COUNT 16.3 K/mm3 (4.0-10.0)
[2018-06-24 12:24] LABS: PLATELET ESTIMATE SLT DECREASE
--- NOTE | 2018-06-24 16:39 | CONSULT ---
Consult Consult Specialty:: Nephrology Reason for Consultation:: ANALIA - History of Present Illness Chief Complaint: sent in for failure to thrive History of Present Illness: Pt is a 78 year old male with pmhx of a-fib, HTN, COPD, CVA, DM, right side paresis, dementia, CHF, and colectomy who was sent in from the [place] for failure to thrive and decreased PO intake. He is not verbal and is unable to give history. His is at bedside and she did help. I reviewed the chart. I was called to evaluate him for ANALIA as his renal function has been worsening for the last few days. He is incontinent and difficult to quantify urine output. He as found to be septic with a gallbladder abscess. 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 seen on prior imaging) Endocrine: Yes: Diabetes Mellitus Additional Medical History: history of dysphagia - Past Surgical History Past Surgical History: Yes: Colectomy - Alcohol/Substance Use Hx Alcohol Use: No - Smoking History Smoking history: Never smoked Have you smoked in the past 12 months: No Aproximately how many cigarettes per day: 0 If you are a former smoker, when did you quit?: 6 years ago - Social History Usual Living Arrangement: Intermediate ADL: Support Services History of Recent Travel: No Home Medications - Allergies Allergies/Adverse Reactions: Allergies Allergy/AdvReac Type Severity Reaction Status Date / Time No Known Allergies Allergy Verified 06/19/18 11:45 - Home Medications Home Medications: Ambulatory Orders Acetaminophen 650 mg PO QID PRN 06/02/18 Albuterol 2.5/Ipratropium 0.5 [Duoneb -] 1 neb IH QID 06/02/18 Apixaban [Eliquis] 5 mg PO BID 06/02/18 Ascorbic Acid 500 mg PO DAILY 06/02/18 Atorvastatin Ca [Lipitor] 40 mg PO HS 06/02/18 Furosemide 20 mg PO DAILY 06/02/18 Insulin Detemir [Levemir Flextouch] 22 unit SQ HS 06/02/18 Insulin Lispro [Humalog] 0 unit SQ BID 06/02/18 Lisinopril [Prinivil -] 40 mg PO DAILY 06/02/18 Metoprolol Tartrate [Lopressor] 50 mg PO BID 06/02/18 Potassium Chloride [Potassium Chloride Oral Liquid] 20 meq PO DAILY 06/02/18 Ranitidine [Zantac -] 150 mg PO BID 06/02/18 Sennosides [Senna -] 2 tab PO HS 06/02/18 Cholecalciferol (Vitamin D3) [Vitamin D3 -] 1,000 unit PO DAILY 06/19/18 Guaifenesin [Mucinex] 600 mg PO BID 06/19/18 Zosyn 3.375GM Ivpb (Premix) 3.375 mg IVPB TID 06/19/18 Family Disease History - Family Disease History Family History: Unable to Obtain Review of Systems Unable to obtain ROS, reason: pt is not verbal Physical Exam Vital Signs: Vital Signs Temperature 97.6 F 06/24/18 14:30 Pulse Rate 77 06/24/18 14:30 Respiratory Rate 18 06/24/18 14:30 Blood Pressure 133/88 06/24/18 14:30 O2 Sat by Pulse Oximetry (%) 98 06/24/18 09:00 Constitutional: Yes: Calm Eyes: Yes: Conjunctiva Clear HENT: Yes: Atraumatic Neck: Yes: Supple Cardiovascular: Yes: S1, S2 Respiratory: Yes: On Nasal O2 Gastrointestinal: Yes: Soft, Other (colostomy) Renal/: Yes: Incontinence Musculoskeletal: Yes: Muscle Weakness Edema: No Neurological: Yes: Lethargy Labs: CBC, BMP 06/24/18 07:00 06/24/18 07:00 Laboratory Tests 06/06/18 06/08/18 06/19/18 06:00 06:30 16:00 WBC Hgb Sodium Chloride BUN Creatinine 0.7 0.6 Urine Protein 1+ H Urine Blood 2+ H 06/20/18 06/21/18 06/22/18 06:30 06:00 07:30 WBC Hgb Sodium Chloride BUN Creatinine 0.9 1.2 1.6 H Urine Protein Urine Blood 06/23/18 06/24/18 06/24/18 06:30 07:00 07:00 WBC 16.3 H Hgb 12.8 Sodium 147 H Chloride 113 H BUN 49 H Creatinine 2.5 H 3.4 H Urine Protein Urine Blood Imaging - Results Chest X-ray: Report Reviewed Cat Scan: Report Reviewed Problem List - Problems (1) ANALIA (acute kidney injury) Code(s): N17.9 - ACUTE KIDNEY FAILURE, UNSPECIFIED (2) Abnormal LFTs Code(s): R94.5 - ABNORMAL RESULTS OF LIVER FUNCTION STUDIES (3) Afib Code(s): I48.91 - UNSPECIFIED ATRIAL FIBRILLATION Assessment/Plan Current Medications Generic Name Dose Route Start Last Admin Trade Name Freq PRN Reason Stop Dose Admin Albuterol/Ipratropium 1 amp 06/20/18 08:00 06/24/18 16:04 Duoneb - NEB 1 amp RQID [facility] Administration Meropenem 1 gm/ Dextrose 100 mls @ 200 mls/hr 06/22/18 18:00 06/24/18 05:29 IVPB 200 mls/hr Q12H [facility] Administration Dextrose/Sodium Chloride 1,000 mls @ 83 mls/hr 06/23/18 10:15 06/24/18 10:32 D5-1/2ns - IV Not Given ASDIR [facility] Insulin Aspart 1 vial 06/21/18 07:00 06/24/18 11:32 Novolog Vial Sliding Scale - SQ 4 units ACHS [facility] Administration Protocol Morphine Sulfate 1 mg 06/20/18 12:55 06/22/18 18:38 Morphine Sulfate IVPUSH 1 mg Q6H PRN Administration PAIN LEVEL 6-10 Pantoprazole Sodium 40 mg 06/23/18 10:45 06/24/18 09:31 Protonix Iv IVPUSH 40 mg DAILY [facility] Administration Impression 1. ANALIA 2. sepsis 3. Pericholecystic Abscess 4. lactic Acidosis 5. h/o Cholecystitis 6. Bilateral Pleural Effusions 7. a-fib 8. CHF dialstolic 9. CKD 10. HTN 11. dementia 12. DM 13. CVA 14. sigmoid Volvulus s/p sigmoid colectomy Plan - check renal ultrasound - place owen to monitor output - check urine lytes and riprap man - will send prelim renal workup - get cxr - send ua - check urine eos - cont fluids for now - avoid nsaids - r/o obstructive uropathy Dr Guy
--- NOTE | 2018-06-24 16:43 | PN ---
Progress Note (short form) - Note Progress Note: no fevers today more alert Vital Signs Period Temp Pulse Resp BP Sys/Pham Pulse Ox Last 24 Hr 97.2 F-99.1 F 47-87 18-20 110-148/38-88 98-98 cor-rrr lungs decreased bs at bases abd soft,nt +ostomy ext no edema CBC, BMP 06/24/18 07:00 06/24/18 07:00 Microbiology 06/19/18 16:00 Blood - Peripheral Venous Blood Culture - Final NO GROWTH AFTER 5 DAYS INCUBATION 06/19/18 16:00 Blood - Peripheral Venous Blood Culture - Final NO GROWTH AFTER 5 DAYS INCUBATION 06/22/18 20:19 Blood - Peripheral Venous Blood Culture - Preliminary NO GROWTH OBTAINED AFTER 24 HOURS, INCUBATION TO CONTINUE FOR 4 DAYS. 06/22/18 20:19 Blood - Peripheral Venous Blood Culture - Preliminary NO GROWTH OBTAINED AFTER 24 HOURS, INCUBATION TO CONTINUE FOR 4 DAYS. 06/19/18 16:00 Urine - Urine - Catheterized Urine Culture - Final NO GROWTH OBTAINED Laboratory Tests 06/20/18 06/21/18 06/23/18 06:30 06:00 06:30 Total Bilirubin 2.6 H AST 406 H 173 H 57529 H ALT 461 H 293 H 3440 H Alkaline Phosphatase 156 H 142 H 220 H Creatine Kinase 06/24/18 06/24/18 07:00 07:00 Total Bilirubin AST 4098 H ALT 2825 H Alkaline Phosphatase 212 H Creatine Kinase 340 H cxray bibasilar infiltrates//effusions a/p afebrile today LTS worsening-gallbladder abscess for drainage of GB abscess when INR corrects RUQ gall bladder abscess abnormal LFTs-send viral serology, GI f/u repeat cultures sent cxray- ?aspiration -bibasilar infiltrate/effusions continue meropenem/hold daptomycin today with worsening renal failure repeat abdominal imaging unchanged d/w Dr Keita d/w at bedside to be seen by renal as well overall prognosis guarded Problem List - Problems (1) Gallbladder abscess Code(s): K81.0 - ACUTE CHOLECYSTITIS (2) Abnormal LFTs Code(s): R94.5 - ABNORMAL RESULTS OF LIVER FUNCTION STUDIES
[2018-06-24 20:13] LABS: URINE APPEARANCE CLOUDY; URINE BILIRUBIN NEGATIVE (<2.0 mg/dL); URINE COLOR AMBER; URINE GLUCOSE (UA) 1+ (NEGATIVE); URINE KETONE NEGATIVE (NEGATIVE); URINE LEUK ESTERASE NEGATIVE (NEGATIVE); URINE NITRITE NEGATIVE (NEGATIVE); URINE PROTEIN 1+ (NEGATIVE)
[2018-06-24 20:34] LABS: URINE BACTERIA RARE /hpf (NONE SEEN)
[2018-06-25] MEDS ORDERED: PT OWN MED DRAWER 7, Y5N ONE ×2 (03:40→17:10)
[2018-06-25] MEDS: MEROPENEM 1 GM in DEXTROSE 5%-WATER 100 ML IVPB SCH ×2 (05:43→17:34)
[2018-06-25] MEDS: INSULIN SLIDING SCALE (NOVOLOG) 1 VIAL SQ SCH ×4 (06:12→21:42)
[2018-06-25 08:16] LABS: INR 2.56 (0.83-1.09); PROTHROMBIN TIME (PATIENT) 30.5 SEC (9.7-13.0)
[2018-06-25] MEDS: PANTOPRAZOLE SODIUM 40 MG VIAL IVPUSH SCH (09:14)
[2018-06-25] MEDS: DEXTROSE 5%-0.45% SALINE 1,000 ML IV SCH (09:30)
[2018-06-25 10:18] LABS: BASO % 0.6 % (0-2.0); EOS % 0.4 % (0-4.5); HEMATOCRIT 36.8 % (35.4-49); HEMOGLOBIN 12.4 GM/dL (11.7-16.9); MCH 31.3 pg (25.7-33.7); MCHC 33.7 g/dl (32.0-35.9); MEAN CELL VOLUME 92.9 fl (80-96); PLATELET COUNT 117 K/MM3 (134-434); RBC 3.96 M/mm3 (4.00-5.60); RDW 16.4 % (11.9-15.9)
--- NOTE | 2018-06-25 10:27 | PN ---
Progress Note (short form) - Note Progress Note: pt seen/ examined chart reviewed much more awake denies pain Vital Signs Temp 97.6 F 06/25/18 10:00 Pulse 67 06/25/18 10:00 Resp 20 06/25/18 10:00 BP 123/75 06/25/18 10:00 Pulse Ox 100 06/24/18 21:00 Intake & Output 06/24/18 06/24/18 06/25/18 11:59 23:59 11:59 Intake Total 631 1054 950 Output Total 2 1300 300 Balance 629 -246 650 Weight 196 lb 197 lb 12.8 oz Intake: IV 581 954 900 D5-1/2Ns - 1,000 ml @ 83 581 954 900 mls/hr IV ASDIR COUNTS INCLUDE 234 BEDS AT THE [facility] Rx#: [id number] IVPB 50 100 50 Output: Urine 2 1300 300 Davis 950 300 Void 2 350 Other: Voiding Method Incontinent Indwelling Catheter Bowel Movement No Weight Measurement Method Built in Bedscale Built in Bedscale Active Medications Meropenem 1 gm/ Dextrose 100 mls @ 200 mls/hr IVPB Q12H [facility]S INCLUDE 234 BEDS AT THE [facility] Last Admin: 06/25/18 05:43 Dose: 200 mls/hr Dextrose/Sodium Chloride (D5-1/2ns -) 1,000 mls @ 83 mls/hr IV ASDIR [facility]S INCLUDE 234 BEDS AT THE [facility] Last Admin: 06/24/18 17:02 Dose: 83 mls/hr Insulin Aspart (Novolog Vial Sliding Scale -) 1 vial SQ ACHS [facility]CLUDE 234 BEDS AT [facility]; Protocol Last Admin: 06/25/18 06:12 Dose: 4 units Pantoprazole Sodium (Protonix Iv) 40 mg IVPUSH DAILY [facility]S INCLUDE 234 BEDS AT [facility] Last Admin: 06/25/18 09:14 Dose: 40 mg today labs -- pending-- cbc/ cmp INR, PTT INR 2.56 (0.83-1.09) H 06/25/18 06:10 Physical Exam awake. chronic ill appearance S1 S2 irregular Lungs decreased Abd- soft, colostomy+, non tender. No edema a/p shock liver/ gall bladder abscess sepsis coogulopathy arf on crf Hyperkalemia Abx vit k aspiration pneumonia keep npo for now will consider swallow eval tomorrow condition poor prognosis remains gaurded renal on case discussed with i/d also will follow Problem List - Problems (1) Abnormal LFTs Code(s): R94.5 - ABNORMAL RESULTS OF LIVER FUNCTION STUDIES (2) Afib Code(s): I48.91 - UNSPECIFIED ATRIAL FIBRILLATION (3) Gallbladder abscess Code(s): K81.0 - ACUTE CHOLECYSTITIS (4) Pneumonia Code(s): J18.9 - PNEUMONIA, UNSPECIFIED ORGANISM Qualifiers: (5) Diabetes Code(s): E11.9 - TYPE 2 DIABETES MELLITUS WITHOUT COMPLICATIONS Qualifiers: Diabetes mellitus type: type 2
--- NOTE | 2018-06-25 10:31 | PN ---
Progress Note (short form) - Note Progress Note: Resting in NAD on NC O2. Awake, less confused. No acute events overnight. Intake & Output 06/22/18 06/23/18 06/24/18 06/25/18 23:59 23:59 23:59 23:59 Intake Total 2227 2259 1685 950 Output Total 1302 300 Balance 222 2259 383 650 Weight 190 lb 12.8 oz 196 lb 197 lb 12.8 oz Last Vital Signs Temp Pulse Resp BP Pulse Ox 97.6 F 67 20 123/75 100 06/25/18 10:00 06/25/18 10:00 06/25/18 10:00 06/25/18 10:00 06/24/18 21:00 Active Medications Meropenem 1 gm/ Dextrose 100 mls @ 200 mls/hr IVPB Q12H [facility] Last Admin: 06/25/18 05:43 Dose: 200 mls/hr Dextrose/Sodium Chloride (D5-1/2ns -) 1,000 mls @ 83 mls/hr IV ASDIR [facility] Last Admin: 06/24/18 17:02 Dose: 83 mls/hr Insulin Aspart (Novolog Vial Sliding Scale -) 1 vial SQ ACHS [facility]; Protocol Last Admin: 06/25/18 06:12 Dose: 4 units Pantoprazole Sodium (Protonix Iv) 40 mg IVPUSH DAILY [facility] Last Admin: 06/25/18 09:14 Dose: 40 mg Gen: NAD Heart: RRR Lung: decreased breath sounds at the bases, few scattered rhonchi Abd: soft, nontender Ext: no edema Laboratory Results - last 24 hr 06/24/18 06/24/18 06/24/18 07:00 11:23 17:05 WBC 16.3 H Corrected WBC (auto) 16.30 Nucleated RBC % Pressurization Mechanic Platelet Estimate Slt decrease Platelet Comment Giant platelets PT with INR INR POC Glucometer 249 240 Urine Color Urine Appearance Urine pH Ur Specific [place] Urine Protein Urine Glucose (UA) Urine Ketones Urine Blood Urine Nitrite Urine Bilirubin Urine Urobilinogen Ur Leukocyte Esterase Urine WBC (Auto) Urine RBC (Auto) Urine Bacteria Ur Random Sodium Ur Random Potassium Ur Random Chloride Urine Creatinine 06/24/18 06/24/18 06/24/18 18:00 18:00 18:00 WBC Corrected WBC (auto) Nucleated RBC % Platelet Estimate Platelet Comment PT with INR INR POC Glucometer Urine Color Viry Urine Appearance Cloudy Urine pH 5.0 Ur Specific [place] 1.017 Urine Protein 1+ H Urine Glucose (UA) 1+ H Urine Ketones Negative Urine Blood 2+ H Urine Nitrite Negative Urine Bilirubin Negative Urine Urobilinogen 2.0 Ur Leukocyte Esterase Negative Urine WBC (Auto) 2 Urine RBC (Auto) 14 Urine Bacteria Rare Ur Random Sodium < 18 L Ur Random Potassium 64.1 Ur Random Chloride 32 L Urine Creatinine 116.0 06/24/18 06/25/18 06/25/18 22:09 05:46 06:10 WBC Corrected WBC (auto) Nucleated RBC % Platelet Estimate Platelet Comment PT with INR 30.50 H INR 2.56 H POC Glucometer 218 249 Urine Color Urine Appearance Urine pH Ur Specific [place] Urine Protein Urine Glucose (UA) Urine Ketones Urine Blood Urine Nitrite Urine Bilirubin Urine Urobilinogen Ur Leukocyte Esterase Urine WBC (Auto) Urine RBC (Auto) Urine Bacteria Ur Random Sodium Ur Random Potassium Ur Random Chloride Urine Creatinine A/P Pericholecystic Abscess Sepsis Lactic Acidosis h/o Cholecystitis Bilateral Pleural Effusions Atelectasis Atrial Fibrillation LV Diastolic Dysfunction CKD HTN DM h/o Sigmoid Volvulus s/p sigmoid colectomy h/o CVA Dementia - antibiotics per ID - IR for abscess drainage once INR corrects - O2 to keep SpO2 >90% - Aspiration precautions - Rate control Dr Patel
[2018-06-25 10:33] LABS: WHITE BLOOD COUNT 14.1 K/mm3 (4.0-10.0)
[2018-06-25 11:11] LABS: ALBUMIN 1.8 g/dl (3.4-5.0); ALK PHOS 176 U/L (45-117); ANION GAP 9 MMOL/L (8-16); BLOOD UREA NITROGEN 48 mg/dL (7-18); CALCIUM 7.5 mg/dL (8.5-10.1); CHLORIDE 114 mmol/L (98-107); CO2 25 mmol/L (21-32); CREATININE 2.7 mg/dL (0.55-1.3); GLUCOSE,RANDOM 271 mg/dL (74-106); POTASSIUM 3.6 mmol/L (3.5-5.1); SGOT/AST 1244 U/L (15-37); SGPT/ALT 1500 U/L (13-61); SODIUM 148 mmol/L (136-145); TOT PROT 6.5 g/dl (6.4-8.2)
--- NOTE | 2018-06-25 12:07 | PN ---
Progress Note (short form) - Note Progress Note: no fevers today looks more comfortable today Vital Signs Period Temp Pulse Resp BP Sys/Pham Pulse Ox Last 24 Hr 97.6 F-98.5 F 67-81 18-20 122-133/58-88 100 cor-rrr lungs decreased bs at bases abd soft, +ostomy nontender ext no edema now with owen CBC, BMP 06/25/18 06:10 06/25/18 06:10 Microbiology 06/22/18 20:19 Blood - Peripheral Venous Blood Culture - Preliminary NO GROWTH OBTAINED AFTER 48 HOURS, INCUBATION TO CONTINUE FOR 3 DAYS. 06/22/18 20:19 Blood - Peripheral Venous Blood Culture - Preliminary NO GROWTH OBTAINED AFTER 48 HOURS, INCUBATION TO CONTINUE FOR 3 DAYS. 06/19/18 16:00 Blood - Peripheral Venous Blood Culture - Final NO GROWTH AFTER 5 DAYS INCUBATION 06/19/18 16:00 Blood - Peripheral Venous Blood Culture - Final NO GROWTH AFTER 5 DAYS INCUBATION 06/19/18 16:00 Urine - Urine - Catheterized Urine Culture - Final NO GROWTH OBTAINED Laboratory Tests 06/20/18 06/21/18 06/23/18 06:30 06:00 06:30 Total Bilirubin 2.6 H AST 406 H 173 H 98771 H ALT 461 H 293 H 3440 H Alkaline Phosphatase 156 H 142 H 220 H Creatine Kinase 06/24/18 06/24/18 06/25/18 07:00 07:00 06:10 Total Bilirubin 2.0 H AST 4098 H 1244 H ALT 2825 H 1500 H Alkaline Phosphatase 212 H 176 H Creatine Kinase 340 H cxray bibasilar infiltrates//effusions-unchanged a/p afebrile today lfts improving for drainage of GB abscess when INR corrects RUQ gall bladder abscess abnormal LFTs-send viral serology, GI f/u repeat cultures sent cxray- ?aspiration -bibasilar infiltrate/effusions continue meropenem repeat abdominal imaging unchanged d/w Dr Gunderson overall prognosis guarded Problem List - Problems (1) Gallbladder abscess Code(s): K81.0 - ACUTE CHOLECYSTITIS (2) Abnormal LFTs Code(s): R94.5 - ABNORMAL RESULTS OF LIVER FUNCTION STUDIES
[2018-06-25] MEDS ORDERED: PHYTONADIONE 10 MG/1 ML AMP IVPB ONE (16:01)
--- NOTE | 2018-06-25 18:47 | PN ---
Progress Note, Physician History of Present Illness: Pt seen and examined at bedside. He is more interactive than yesterday but still confused. - Current Medication List Current Medications: Active Medications Meropenem 1 gm/ Dextrose 100 mls @ 200 mls/hr IVPB Q12H [facility] Last Admin: 06/25/18 17:34 Dose: 200 mls/hr Dextrose/Sodium Chloride (D5-1/2ns -) 1,000 mls @ 83 mls/hr IV ASDIR FLORIN Last Admin: 06/25/18 09:30 Dose: 83 mls/hr Insulin Aspart (Novolog Vial Sliding Scale -) 1 vial SQ ACHS FLORIN; Protocol Last Admin: 06/25/18 16:59 Dose: 6 units Pantoprazole Sodium (Protonix Iv) 40 mg IVPUSH DAILY [facility] Last Admin: 06/25/18 09:14 Dose: 40 mg - Objective Vital Signs: Vital Signs Temperature 97.9 F 06/25/18 14:30 Pulse Rate 74 06/25/18 14:30 Respiratory Rate 20 06/25/18 14:30 Blood Pressure 130/88 06/25/18 14:30 O2 Sat by Pulse Oximetry (%) 100 06/24/18 21:00 Constitutional: Yes: Calm Eyes: Yes: Conjunctiva Clear HENT: Yes: Atraumatic Cardiovascular: Yes: S1, S2 Gastrointestinal: Yes: Soft, Other (colostomy) Genitourinary: Yes: Davis Present Musculoskeletal: Yes: Muscle Weakness Edema: No Neurological: Yes: Confusion Labs: CBC, BMP 06/25/18 06:10 06/25/18 06:10 INR, PTT INR 2.56 (0.83-1.09) H 06/25/18 06:10 Problem List - Problems (1) ANALIA (acute kidney injury) Code(s): N17.9 - ACUTE KIDNEY FAILURE, UNSPECIFIED (2) Abnormal LFTs Code(s): R94.5 - ABNORMAL RESULTS OF LIVER FUNCTION STUDIES (3) Afib Code(s): I48.91 - UNSPECIFIED ATRIAL FIBRILLATION Assessment/Plan Current Medications Generic Name Dose Route Start Last Admin Trade Name Freq PRN Reason Stop Dose Admin Meropenem 1 gm/ Dextrose 100 mls @ 200 mls/hr 06/22/18 18:00 06/25/18 17:34 IVPB 200 mls/hr Q12H FLORIN Administration Dextrose/Sodium Chloride 1,000 mls @ 83 mls/hr 06/23/18 10:15 06/25/18 09:30 D5-1/2ns - IV 83 mls/hr ASDIR FLORIN Administration Insulin Aspart 1 vial 06/21/18 07:00 06/25/18 16:59 Novolog Vial Sliding Scale - SQ 6 units ACHS FLORIN Administration Protocol Pantoprazole Sodium 40 mg 06/23/18 10:45 06/25/18 09:14 Protonix Iv IVPUSH 40 mg DAILY FLORIN Administration Laboratory Tests 06/19/18 06/19/18 06/24/18 16:00 21:23 18:00 Sodium Lactic Acid 3.2 H* 3.5 H* Urine Protein Urine Blood Urine Eosinophils Pending Ur Random Sodium BRIGITTE Screen 06/24/18 06/24/18 06/25/18 18:00 18:00 06:10 Sodium Lactic Acid Urine Protein 1+ H Urine Blood 2+ H Urine Eosinophils Ur Random Sodium < 18 L BRIGITTE Screen Pending 06/25/18 06:10 Sodium 148 H Lactic Acid Urine Protein Urine Blood Urine Eosinophils Ur Random Sodium BRIGITTE Screen Impression 1. ANALIA 2. sepsis 3. Pericholecystic Abscess 4. lactic Acidosis 5. h/o Cholecystitis 6. Bilateral Pleural Effusions 7. a-fib 8. CHF dialstolic 9. CKD 10. HTN 11. dementia 12. DM 13. CVA 14. sigmoid Volvulus s/p sigmoid colectomy 15. hypernatremia Plan - change fluids to d5 1/3rd at 100 cc - repeat labs in am - urine sodium is slow consistent with pre-renal disease - renal function is improving - follow brigitte - follow urine eos - cxr reviewed Dr Guy
[2018-06-25] MEDS ORDERED: DEXTROSE 5%-1/3 NS - 500 ML IV SCH (19:00)
[2018-06-25 22:23] VITALS: TEMP 98.6
[2018-06-26] MEDS ORDERED: ALBUTEROL SO4 2.5/IPRATROPIUM 0.5 INH SOL 3 ML VIAL.NEB. NEB PRN (00:27)
[2018-06-26] MEDS ORDERED: FUROSEMIDE 40 MG/4 ML INJECTABLE VIAL IVPUSH ONE (03:57)
[2018-06-26] MEDS ORDERED: FUROSEMIDE 40 MG/4 ML INJECTABLE VIAL ONE (03:59)
[2018-06-26 04:05] LABS: ARTERIAL BLD GAS O2 SATURATION 89.2 % (90-98.9); ARTERIAL BLOOD GAS PCO2 29.1 mmHg (35-45); ARTERIAL BLOOD GAS pH 7.39 (7.35-7.45)
[2018-06-26 04:06] LABS: ALLENS TEST POSITIVE
--- NOTE | 2018-06-26 04:08 | HOSP ---
Subjective - Review of Symptoms Events since last encounter: Hospitalist Encounter Notified by RN, that the patient is SOB with Spo2 92% on 2L. Was asked to come and assess patient. Subjective: Arrived to bedside, patient is awake non verbal- baseline. Appears to be in respiratory distress with abdominal accessory muscle use. Upon auscultation of Lungs, coarse rhonchi with scattered crackles and diminished to bases. Assessment: This is a 78 y/o man from [facility] with a PMHx of: atrial fibrillation (on Eliquis), hypertension, COPD, diabetes mellitus, chronic kidney disease, CVA with right sided paresis, congestive heart failure (diastolic versus systolic unknown), dementia, colectomy on 04/11, cholecystitis s/p percutaneous drain tube who had a recent admission for aspiration pneumonia and NSTEMI. Admitted for Failure to Thrive. Plan: Stat ABG Stat Portable CXR Lasix 40mg IV Decrease IVF to 42cc for now Pulmonary: Yes: Dyspnea Physical Examination Vital Signs: Vital Signs Temperature 98.6 F 06/25/18 22:00 Pulse Rate 82 06/25/18 22:00 Respiratory Rate 18 06/25/18 22:00 Blood Pressure 133/73 06/25/18 22:00 O2 Sat by Pulse Oximetry (%) 97 06/25/18 21:00 Constitutional: Yes: Moderate Distress Eyes: Yes: Conjunctiva Clear, PERRL HENT: Yes: Atraumatic Neck: Yes: Supple, Trachea Midline Cardiovascular: Yes: Pulse Irregular, S1, S2 Respiratory: Yes: Accessory Muscle Use, On Nasal O2, Rales, Rhonchi, SOB, Stridor Gastrointestinal: Yes: Soft, Other (colostomy) Renal/: Yes: Davis Present Breast(s): Yes: WNL Edema: No Peripheral Pulses WNL: Yes Neurological: Yes: Confusion, Weakness, Other (Non-verbal at baseline) Psychiatric: Yes: Alert Labs: CBC, BMP 06/25/18 06:10 06/25/18 06:10 Hospitalist Encounter Outcome: CXR image, poorly rotated, increased vascular congestion ABG- 7.39/29.1/64/17.3/89.2 NRB removed, placed on 3LNC, patient tolerates, breathing less labored, Spo2- 94 -95% Decreased D5 1/3 to 42cc Critical Care Total Critical Care Time (in minutes): 32 Critical Care Statement: The care of this patient involved high complexity decision making to prevent further life threatening deterioration of the patient 's condition and/or to evaluate & treat vital organ system(s) failure or risk of failure.
[2018-06-26] MEDS ORDERED: DEXTROSE 5%-1/3 NS - 500 ML IV SCH (04:31)
[2018-06-26] MEDS: MEROPENEM 1 GM in DEXTROSE 5%-WATER 100 ML IVPB SCH (05:40)
[2018-06-26] MEDS: INSULIN SLIDING SCALE (NOVOLOG) 1 VIAL SQ SCH (06:01)
[2018-06-26 07:36] LABS: HEMATOCRIT 35.9 % (35.4-49); MCH 30.5 pg (25.7-33.7); MCHC 33.4 g/dl (32.0-35.9); MEAN CELL VOLUME 91.3 fl (80-96); MEAN PLT VOLUME 10.1 fl (7.5-11.1); PLATELET COUNT 113 K/MM3 (134-434); RBC 3.93 M/mm3 (4.00-5.60); RDW 16.4 % (11.9-15.9); WHITE BLOOD COUNT 10.7 K/mm3 (4.0-10.0)
[2018-06-26 07:58] VITALS: BP 150/101; PULSE 145
[2018-06-26 08:08] LABS: ALBUMIN 2.2 g/dl (3.4-5.0); ALK PHOS 217 U/L (45-117); ANION GAP 15 MMOL/L (8-16); BILIRUBIN,TOTAL 2.2 mg/dL (0.2-1); BLOOD UREA NITROGEN 42 mg/dL (7-18); CALCIUM 8.2 mg/dL (8.5-10.1); CHLORIDE 114 mmol/L (98-107); CO2 19 mmol/L (21-32); CREATININE 2.5 mg/dL (0.55-1.3); GLUCOSE,RANDOM 232 mg/dL (74-106); POTASSIUM 3.5 mmol/L (3.5-5.1); SGOT/AST 733 U/L (15-37); SGPT/ALT 1081 U/L (13-61); SODIUM 148 mmol/L (136-145); TOT PROT 7.7 g/dl (6.4-8.2)
[2018-06-26 08:14] LABS: INR 2.04 (0.83-1.09); PROTHROMBIN TIME (PATIENT) 24.3 SEC (9.7-13.0)
--- NOTE | 2018-06-26 08:59 | RAPID ---
Physical Examination Vital Signs: Vital Signs Temperature 98.6 F 06/26/18 06:00 Pulse Rate 145 H 06/26/18 06:00 Respiratory Rate 18 06/26/18 06:00 Blood Pressure 150/101 H 06/26/18 06:00 O2 Sat by Pulse Oximetry (%) 97 06/25/18 21:00 Labs: CBC, BMP 06/26/18 06:00 06/26/18 06:00 Rapid Response - Rapid Response Assessment: Code 99 called overhead. Responded and began CPR. Please see code sheet for further details. Patient .
--- NOTE | 2018-06-26 09:00 | PN ---
HC Provider Note Provider Note: Called to code in progress. Pt without pulse or resp efforts, CPR/ACLS taking place. Direct laryngoscopy x1 using MAC 4 blade -- VC seen 8.0 ETT placed + CO2 via color change indicator BS+BL. ETT secured by resp therapy. Atraumatic procedure. Wallace Steinberg M.D.
--- NOTE | 2018-06-26 09:17 | RAPID ---
Physical Examination Vital Signs: Vital Signs Temperature 98.6 F 06/26/18 06:00 Pulse Rate 145 H 06/26/18 06:00 Respiratory Rate 18 06/26/18 06:00 Blood Pressure 150/101 H 06/26/18 06:00 O2 Sat by Pulse Oximetry (%) 97 06/25/18 21:00 Labs: CBC, BMP 06/26/18 06:00 06/26/18 06:00 Rapid Response - Rapid Response Assessment: Code 99 called. Patient was found unresponsive and ACLS protocol initiated at 0840 Please see code sheet on physical chart for complete details After a long unsuccessful attempt at ROSC, the decision was made to stop Called family and they are aware of the situation Time of 0858 PCP contacted by Rapid Response medicine team
[2018-06-26 18:13] LABS: HEP.C VIRUS AB 0.1 s/co ratio (0.0-0.9)
--- NOTE | 2018-06-26 21:01 | DS ---
Physical Examination Vital Signs: Vital Signs Temperature 98.6 F 06/26/18 06:00 Pulse Rate 145 H 06/26/18 06:00 Respiratory Rate 18 06/26/18 08:00 Blood Pressure 150/101 H 06/26/18 06:00 O2 Sat by Pulse Oximetry (%) 97 06/26/18 08:00 Labs: CBC, BMP 06/26/18 06:00 06/26/18 06:00 Discharge Summary Reason For Visit: ELEVATED TRANSAMINASE MEASUREMENT Hospital Course: pt with extensive pmhx -- went into cardiac arrest -- unsuccessfull resuscitation today Condition: Stable - Instructions Referrals: Tyrell Vanegas MD [Primary Care Provider] - Disposition: - Home Medications Comprehensive Discharge Medication List: Ambulatory Orders Acetaminophen 650 mg PO QID PRN 06/02/18 Albuterol 2.5/Ipratropium 0.5 [Duoneb -] 1 neb IH QID 06/02/18 Apixaban [Eliquis] 5 mg PO BID 06/02/18 Ascorbic Acid 500 mg PO DAILY 06/02/18 Atorvastatin Ca [Lipitor] 40 mg PO HS 06/02/18 Furosemide 20 mg PO DAILY 06/02/18 Insulin Detemir [Levemir Flextouch] 22 unit SQ HS 06/02/18 Insulin Lispro [Humalog] 0 unit SQ BID 06/02/18 Lisinopril [Prinivil -] 40 mg PO DAILY 06/02/18 Metoprolol Tartrate [Lopressor] 50 mg PO BID 06/02/18 Potassium Chloride [Potassium Chloride Oral Liquid] 20 meq PO DAILY 06/02/18 Ranitidine [Zantac -] 150 mg PO BID 06/02/18 Sennosides [Senna -] 2 tab PO HS 06/02/18 Cholecalciferol (Vitamin D3) [Vitamin D3 -] 1,000 unit PO DAILY 06/19/18 Guaifenesin [Mucinex] 600 mg PO BID 06/19/18 Zosyn 3.375GM Ivpb (Premix) 3.375 mg IVPB TID 06/19/18
== END 2018-06-26 13:54 | disposition expired | DRG 871 ==
LOC: JER 11:40 → JERBED 14:10 → J8W 06-20 06:57 → JERBED 06-22 23:21 → J8W 06-22 23:22
PROVIDERS: ADMIT Internal Medicine; ATTEND Internal Medicine
PROC: 0CHY7BZ Insertion of Airway into Mouth and Throat, Via Natural or Artificial Opening (ICD-10-PCS; principal; 2018-06-26)
PROC: 5A1935Z Respiratory Ventilation, Less than 24 Consecutive Hours (ICD-10-PCS; 2018-06-26)
DX: A41.9 Sepsis, unspecified organism (principal); K72.00 Acute and subacute hepatic failure without coma; I50.33 Acute on chronic diastolic (congestive) heart failure; I69.351 Hemiplegia and hemiparesis following cerebral infarction affecting right dominant side; K80.00 Calculus of gallbladder with acute cholecystitis without obstruction; J98.11 Atelectasis; E87.2 Acidosis; N17.9 Acute kidney failure, unspecified; D68.9 Coagulation defect, unspecified; I13.0 Hypertensive heart and chronic kidney disease with heart failure and stage 1 through stage 4 chronic kidney disease, or unspecified chronic kidney disease; R62.7 Adult failure to thrive; I48.2 Chronic atrial fibrillation; J44.9 Chronic obstructive pulmonary disease, unspecified; R74.8 Abnormal levels of other serum enzymes; F03.90 Unspecified dementia, unspecified severity, without behavioral disturbance, psychotic disturbance, mood disturbance, and anxiety; D72.829 Elevated white blood cell count, unspecified; E11.42 Type 2 diabetes mellitus with diabetic polyneuropathy; R00.0 Tachycardia, unspecified; R63.4 Abnormal weight loss; Z68.30 Body mass index [BMI] 30.0-30.9, adult; R94.31 Abnormal electrocardiogram [ECG] [EKG]; R93.5 Abnormal findings on diagnostic imaging of other abdominal regions, including retroperitoneum; E87.5 Hyperkalemia; E11.22 Type 2 diabetes mellitus with diabetic chronic kidney disease; N18.9 Chronic kidney disease, unspecified; Z93.3 Colostomy status; I46.9 Cardiac arrest, cause unspecified
CPT/HCPCS: 36415; 36600; 71045-TC-FY; 74176-TC; 74177-TC; 76705-TC; 76775-TC; 76856-TC; 80048; 80053; 80074; 80076; 81003; 81015; 82436; 82550; 82553; 82570; 82803; 82962; 83605; 83735; 83880; 84100; 84133; 84300; 84443; 85025; 85027; 85610; 85730; 86038; 86803; 86850; 86900; 86901; 87040; 87086; 87205; 93005; 93010; 94640; 97116-GP; 97162-GP; 99285-25; J0131; J0878; J7030